=== PATIENT | female | born 1985 | race Caucasian/White ===

== ENCOUNTER 2020-06-29 15:08 | Emergency (ER) | payer OTHER, SELFPAY ==
[2020-06-29] VITALS (13 sets, daily range): BP systolic 129–141; BP diastolic 69–119; PULSE 64–92; RESP 14–41; TEMP 36.6; O2SAT 95–99
--- NOTE | 2020-06-29 15:00 | RT.EKG_ITS ---
APPROVED REPORT Exam: Resting ECG Reason for Exam: stroke like symp Patient Location: E HR:74 bpm ECG Measurements Heart Rate 74 AXIS AR 129 P 37 QRSd 98 QRS 50 QT 384 T 39 QTc 426 Conclusion Sinus rhythm...normal P axis, V-rate 60- 99
--- NOTE | 2020-06-29 15:13 | ED.GENADUL_ITS ---
Discharge Plan Disposition Patient Disposition: HOME Condition: Improving Discharge Details Clinical Impression: Acute frontal sinusitis, Cavernoma, Cephalgia Primary Care Provider: Unknown,Unknown ED Provider: Medardo Velez Home Meds and New Rx's Prescriptions: New cefpodoxime 200 mg tablet 200 mg PO BID 9 Days Qty: 18 RF: 0 Continued citalopram 40 mg Tablet 40 mg PO DAILY RF: 0 topiramate 25 mg Tablet 25 mg PO DAILY RF: 0 pantoprazole 40 mg Tablet,Delayed Release (Dr/Ec) 40 mg PO DAILY RF: 0 diphenhydramine HCl [Benadryl] 25 mg Capsule 25 mg PO HS RF: 0 indomethacin 50 mg Capsule 50 mg PO TID RF: 0 lorazepam 1 mg Tablet 1 mg PO TID PRNRF: 0 lisinopril 40 mg Tablet 40 mg PO DAILY RF: 0 vitamin B complex Capsule 1 cap PO DAILY RF: 0 vitamin B6-vitamin E-magnesium Tablet 1 tab PO DAILY RF: 0 Discharge Instructions Instructions: Sinusitis (ED), General Headache (ED) Additional Instructions: Please take the Cefpodoxime as prescribed. Do not take this medication at the same time as you take pantoprazole. Home to rest this evening. Small, frequent sips of fluids so that you maintain good hydration. Your work-up today included laboratory, CAT scan, and MRI which does demonstrate your known cavernoma. Please follow-up with your neurologist in [place] within a week. Return to the emergency department for any acute concerns. Medical Decision Making 34-year-old female presents via EMS. She is reported to have the history of rapid onset migraine headache associated with strokelike symptoms including ga rbled speech and left arm weakness. 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 today she had similar onset of headache, left arm weakness, with intermittently garbled speech. Differential diagnosis includes migraine type headache/hemicrania continua, atypical migraine, sinusitis, stroke. Patient had IV access established, placed on personnel administrator, referred for CT imaging. She is given parenteral fluids and medications. Per Dr. Saleh, CT shows possible subacute hemorrhage in a cavernoma. See formal report. Patient subsequently referred for brain MRI. The MRI reveals a cavernoma. No suggestion of acute hemorrhage. See formal report. Patient had fairly rapid improvement of her symptoms following administration of medications. We will place her on a course of Cefpodoxime for right maxillary and right frontal/ethmoid sinusitis. Diagnostics: 1. 9 x 10 millimeter left-sided hyperdensity as described above which is consistent with probable area of hemorrhage, possibly associated with a vascular malformation such as cavernous hemangioma. MRI is recommended. 2. Prominent sinusitis as described above. This also involves the frontal sin uses. 3. Also noted is a ski sebaceous cyst in the scalp over the right temporoparietal region which measures approximately 9 x 8 millimeters. Lab Data Lab results reviewed: Yes I reviewed the patient's lab results. Labs: Laboratory Results - last 24 hr 06/29/20 06/29/20 06/29/20 15:10 15:10 15:54 WBC 10.79 RBC 4.25 Hgb 12.3 Hct 37.9 MCV 89.2 MCH 28.9 MCHC 32.5 RDW 13.0 Plt Count 301 MPV 9.6 Immature Gran % 0.3 Neutrophils % 68.0 Lymphocytes % 23.1 Monocytes % 6.6 Eosinophils % 1.7 Basophils % 0.3 Nucleated RBC % 0 Absolute Neutrophils 7.35 H Absolute Lymphocytes 2.49 Absolute Monocytes 0.71 Absolute Eosinophils 0.18 Absolute Basophils 0.03 Sodium 141 Potassium 3.8 Chloride 106 Carbon Dioxide 26.9 Anion Gap 8.1 BUN 12 Creatinine 0.9 Estimated GFR/1.73 m2 >= 60.00 Glucose 99 Calcium 9.0 Magnesium 2.1 Total Bilirubin 0.5 AST 13 L ALT 34 Alkaline Phosphatase 69 Troponin I < 0.05 Total Protein 7.5 Albumin 3.8 Urine Color Yellow Urine Clarity Clear Urine pH 6.0 Ur Specific [place] <= 1.005 Urine Protein Negative Urine Ketones Negative Urine Blood Negative Urine Nitrite Negative Urine Bilirubin Negative Urine Urobilinogen 0.2 Ur Leukocyte Esterase Negative Urine Glucose Negative HPI General Mode of arrival: EMS . Date/Time Provider Initiated Documentation: 06/29/20 15:21 . Information obtained by: patient and EMS . History of Present Illness 34 year old F presents to the emergency department with the chief complaint of Headache, garbled speech, left arm weakness, similar to previous, described as similar to prior episodes, and is localized to the head, left and upper extremity. Patient reports no radiation. Patient started experiencing this minute(s) and it has been constant. No relieving factors improve symptom(s), No exacerbating factors reported . Patient notes headaches, weakness and other (Had fluttering of the eyelids); denies fever/chills. Patient did receive the following treatments prior to arrival, none Related Data Home Medications Medication Instructions Recorded Confirmed cefpodoxime 200 mg PO BID 9 Days #18 tab 06/29/20 citalopram 40 mg PO DAILY 06/29/20 06/29/20 diphenhydramine HCl [Benadryl] 25 mg PO HS 06/29/20 06/29/20 indomethacin 50 mg PO TID 06/29/20 06/29/20 lisinopril 40 mg PO DAILY 06/29/20 06/29/20 lorazepam 1 mg PO TID PRN 06/29/20 06/29/20 pantoprazole 40 mg PO DAILY 06/29/20 06/29/20 topiramate 25 mg PO DAILY 06/29/20 06/29/20 vitamin B complex 1 cap PO DAILY 06/29/20 06/29/20 vitamin B6-vitamin E-magnesium 1 tab PO DAILY 06/29/20 06/29/20 Previous Rx's Medication Instructions Recorded cefpodoxime 200 mg PO BID 9 Days #18 tab 06/29/20 Allergies Allergy/AdvReac Type Severity Reaction Status Date / Time red dye Allergy Unverified 06/29/20 15:47 Review of Systems Narrative: History of same, has known brain mass, no reported recent illness. PFSH Social History Smoking/Tobacco Use Status: Unknown Smoking risk assessment performed?: Yes Drug use: Occasionally Substance use type: marijuana Details: unable to assess unstable condition Additional Social history: unable to assess unstable condition Exam Narrative Exam Narrative: GEN: awake, alert, well groomed, interactive. HEAD: Normocephalic, atraumatic ENT: Mucous membranes moist, oropharynx unremarkable, External ear exam unremarkable EYES: PERRL, EOMI NECK: Full ROM, no KITA, no menigismus CHEST/RESP: Nontender, clear to auscultation bilateral, no wheeze/rhonchi/rales CARDIOVASCULAR: RRR, no murmur, rub perico. 2+ Rad pulse bilateral ABDOMEN: Soft, nontender, no mass. +Bowel sounds EXT: Full ROM, no edema, no rash Neuro: Patient lying in gurney, somewhat slurred speech, somewhat disconjugate gaze. Follows two-step commands. Opens eyes to voice. Question of subjective weakness left arm pain Psych: Speech fluent, thoughts congruent, affect normal
--- NOTE | 2020-06-29 15:14 | DI.CT_ITS ---
Exam(s) CT HEAD - STROKE PROTOCOL EXAM: CT HEAD - STROKE PROTOCOL CLINICAL HISTORY: migraine with arm weakness. TECHNIQUE: Imaging Protocol: Axial computed tomography images with coronal and sagittal reformatted images were created and reviewed COMPARISON: No exams were available for comparison FINDINGS: There are no skull fractures. However, there is complete opacification of the visualized right maxi llary sinus as well as the central right frontal sinuses and ipsilateral ethmoidal air cells and ther e is mucosal thickening in the sphenoid sinuses as well as fluid level in left maxillary sinus. Mast oid air cells are clear. No fluid in the middle ear cavities. There is an abnormal 10 x 9 x 8 millimeter hyperdense area just anterior to the anterior limb of the left internal capsule, exhibiting average density units 55 HU and therefore most probably blood. The re is no surrounding edema. Probably representing hemorrhage around a vascular malformation such as cavernous hemangioma. No other findings seen elsewhere in the brain.. IMPRESSION: 1. 9 x 10 millimeter left-sided hyperdensity as described above which is consistent with probable are a of hemorrhage, possibly associated with a vascular malformation such as cavernous hemangioma. MRI is recommended. 2. Prominent sinusitis as described above. This also involves the frontal sinuses. 3. Also noted is a ski sebaceous cyst in the scalp over the right temporoparietal region which measu res approximately 9 x 8 millimeters. RADIATION DOSE DELIVERED: 778.31mGy.cm Total DLP DATA REPOSITORY: All CT scans at this facility are submitted to the National Radiology Data Registry (NRDR) Dose Index Registry (DIR) with the [employer] (ACR). RADIATION OPTIMIZATION: All CT scans at this facility use at least one of these dose optimization te chniques: automated exposure control; mA and/or kV adjustment per patient size (includes targeted exa ms where dose is matched to clinical indication); or iterative reconstruction.
--- NOTE | 2020-06-29 15:30 | DI.MRI_ITS ---
Exam(s) MR BRAIN WO EXAM: MR BRAIN WO CLINICAL HISTORY: Brain mass, see CT. Headache TECHNIQUE: Multiplanar multisequence MRI of the brain was performed. COMPARISON: CT scan earlier same day was reviewed. FINDINGS: CEREBRAL PARENCHYMA: There is a 9 x 10 millimeter area of signal abnormality in the left frontal lobe adjacent to the basa l ganglia which exhibits a popcorn appearance on T2 imaging and most likely representing and cavernom a. Small focus of associated T1 hyperintensity noted but without surrounding edema. This exhibits b looming artifact on SWI. This is most probably a small cavernous hemangioma/cavernoma. This is virgil tary finding. No other focal intracranial findings. There is no significant focal signal abnormality in the cerebellar hemispheres nor within the keila, m idbrain, and thalami. There is no significant focal signal abnormality evident on diffusion imaging to suggest acute ischem ic event. PITUITARY GLAND: No mass nor parasellar abnormality. No obvious abnormality in the cavernous sinuses. FLOW VOIDS: The expected flow void are noted. No evidence of obvious aneurysm nor obvious vascular ma lformation. PARANASAL SINUSES: Significant the sinusitis evident in the maxillary sinuses with complete opacifica tion of the right maxillary sinus and a fluid level in left maxillary sinus and mucosal thickening in the sphenoid sinuses as well as involvement of the right frontal sinus. ORBITS: No obvious findings. IMPRESSION: 9 x 10 millimeter finding in the left frontal lobe as described above which is probably a cavernoma, not associated with acute hemorrhage nor surrounding edema at this time. Extensive sinusitis noted, including the frontal sinuses. DATA REPOSITORY:
[2020-06-29 15:31] LABS: Abs Immature Grans 0.03 10^3/uL (0.0-0.06); Absolute Basophil Count 0.03 10^3/uL (0.0-0.2); Absolute Eosinophil Count 0.18 10^3/uL (0.0-0.7); Absolute Lymphocyte Count 2.49 10^3/uL (1.2-3.4); Absolute Monocyte Count 0.71 10^3/uL (0.1-0.8); Absolute Neutrophil Count 7.35 10^3/uL (1.2-6.7); Basophils % 0.3; Eosinophils % 1.7; HCT 37.9 % (36.0-46.0); HGB 12.3 g/dL (11.2-15.7); Immature Grans % 0.3; Lymphocytes % 23.1; MCH 28.9 pg (27.0-33.0); MCHC 32.5 % (32.0-36.0); MCV 89.2 fL (80-95); MPV 9.6 fL (8.0-11.0); Monocytes % 6.6; Nucleated RBC 0 %; Platelet Count 301 10^3/uL (130-400); RBC 4.25 10^6/uL (3.93-5.22); RDW-SD 42.5 fL; WBC 10.79 10^3/uL (4.4-10.8)
[2020-06-29] MEDS: LORazepam 2 MG/ML VIAL 0.5 MG IVP (15:40)
[2020-06-29] MEDS: Dexamethasone 4 MG/ML VIAL 8 MG IVP (15:40)
[2020-06-29 15:50] LABS: ALT 34 U/L (14-59); AST 13 U/L (15-37); Albumin 3.8 g/dL (3.4-5.0); Alkaline Phosphatase 69 U/L (46-116); Anion Gap 8.1 mmol/L (3-11); BUN 12 mg/dL (7-18); Bilirubin, Total 0.5 mg/dL (0.2-1.0); CO2 26.9 mmol/L (21.0-32.0); CREATININE 0.9 mg/dL (0.55-1.02); Chloride 106 mmol/L (98-107); Glucose 99 mg/dL (74-106); Magnesium 2.1 mg/dL (1.8-2.4); Potassium 3.8 mmol/L (3.5-5.1); Sodium 141 mmol/L (136-145); Total Protein 7.5 g/dL (6.4-8.2)
--- NOTE | 2020-06-29 15:50 | NUR.NOTE ---
Nursing Note: Matias Bales [facility] [phone]
[2020-06-29 15:55] LABS: Troponin I < 0.05 ng/mL (<0.06)
[2020-06-29] MEDS: ACETAMINOPHEN 1,000 MG/100 ML BTL 400 MG IVPB (15:57)
[2020-06-29] MEDS: Normal Saline 1,000 ML 1000 ML IV (15:58)
[2020-06-29 16:01] LABS: Bilirubin Negative (Negative); Blood Negative (Negative); Clarity Clear (Clear); Glucose Negative (Negative); Ketones Negative (Negative); Leukocyte Esterase Negative (Negative); Nitrite Negative (Negative); Specific Gravity <= 1.005 (1.005-1.025); Urobilinogen 0.2 EU/dL (Up TO 0.2)
[2020-06-29] MEDS: HYDROmorphone 2 MG/ML VIAL 0.5 MG IVP (16:46)
--- NOTE | 2020-06-29 16:48 | DI.VRAD_ITS ---
PROCEDURE INFORMATION: Exam: MR Head Without Contrast Exam date and time: 06/29/2020 4:27 PM Age: 34 years old Clinical indication: Headache TECHNIQUE: Imaging protocol: MR of the head without contrast. COMPARISON: CT HEAD - STROKE PROTOCOL 06/29/2020 3:15 PM FINDINGS: Brain: There is blooming artifact on SWI within the left frontal lobe adjacent to the basal ganglia, which demonstrates small focus of T1 hyperintensity and a popcorn appearance on T2 most likely representing a cavernoma. No surrounding edema to suggest acute hemorrhage. No acute infarct. No mass effect or midline shift. No extra-axial collection. No acute intracranial hemorrhage. Basal cisterns are patent. Cerebral ventricles: Normal. No ventriculomegaly. Bones/joints: Unremarkable. Paranasal sinuses: Normal as visualized. No acute sinusitis. Mastoid air cells: Normal as visualized. No mastoid effusion. Orbital cavity: Unremarkable. Soft tissues: Unremarkable. IMPRESSION: There is blooming artifact on SWI within the left frontal lobe adjacent to the basal ganglia, which demonstrates small focus of T1 hyperintensity and a popcorn appearance on T2 most likely representing a cavernoma. No surrounding edema to suggest acute hemorrhage. Dictated and Authenticated by: Luke Rao MD. Ordering:CARISSA Batres MD
[2020-06-29] MEDS: Ketorolac 15 MG/ML VIAL IVP (17:05)
[2020-06-29] MEDS: Cefpodoxime 200 MG TAB PO (17:05)
[2020-06-29 18:38] LABS: Troponin I < 0.05 ng/mL (<0.06)
== END 2020-06-29 19:01 | disposition home or self-care (01) ==
PROVIDERS: Emergency Provider Emergency Medicine
DX: J01.10 Acute frontal sinusitis, unspecified (principal); Q28.3 Other malformations of cerebral vessels; G83.24 Monoplegia of upper limb affecting left nondominant side; R47.81 Slurred speech
CPT/HCPCS: 36415; 36416; 80053; 81025; 82962; 93005; 96361; 96365; 96375; 99285; 70450; 70551; 81003; 83735; 84484; 85025; 93010; J0131; J1100; J1885; J2060

== ENCOUNTER 2020-07-03 16:57 | Observation (INO) | payer OTHER, SELFPAY ==
[2020-07-03] VITALS (61 sets, daily range): BP systolic 73–147; BP diastolic 54–96; PULSE 58–83; RESP 9–24; TEMP 36.3; O2SAT 93–98
--- NOTE | 2020-07-03 17:00 | DI.CT_ITS ---
Exam(s) CT HEAD WO EXAM: CT HEAD WO CLINICAL HISTORY: recent sinusitis, L frontal headache. TECHNIQUE: Imaging Protocol: Axial computed tomography images with coronal and sagittal reformatted images were created and reviewed COMPARISON: CT CT HEAD - STROKE PROTOCOL from 06/29/2020 FINDINGS: No skull fractures. Pansinusitis previously described is again noted, comprised of complete opacifi cation right maxillary sinus, level maxillary sinus, mucosal thickening and fluid in the sphenoid sin uses and opacification of the frontal sinuses the exception of the far left frontal sinus. Mastoid a ir cells are clear. There is relatively stable appearance of the previously described 10 x 11 millimeter hyperdense focus the left frontal lobe, not associated with significant amount of surrounding edema. This is apparen tly in known cavernoma. No new focal findings noted in the brain. IMPRESSION: Stable hyperdense left frontal lobe focus which is radiographically unchanged from 06/29/2020 and hyp erdense known cavernoma with blood products. No new significant mass effect noted. Pansinusitis again noted, unchanged. No improvement. RADIATION DOSE DELIVERED: 796.13mGy.cm Total DLP DATA REPOSITORY: All CT scans at this facility are submitted to the National Radiology Data Registry (NRDR) Dose Index Registry (DIR) with the [employer] (ACR). RADIATION OPTIMIZATION: All CT scans at this facility use at least one of these dose optimization te chniques: automated exposure control; mA and/or kV adjustment per patient size (includes targeted exa ms where dose is matched to clinical indication); or iterative reconstruction.
--- NOTE | 2020-07-03 17:08 | ED.GENADUL_ITS ---
Discharge Plan Disposition Patient Disposition: [facility] INPATIENT Condition: Stable Discharge Details Clinical Impression: Acute frontal sinusitis, Cavernoma, Cephalgia, Migraine with status migrainosus Primary Care Provider: Unknown,Unknown ED Provider: Phani Nelson Cody Meds and New Rx's Prescriptions: Continued citalopram 40 mg Tablet 40 mg PO DAILY RF: 0 topiramate 25 mg Tablet 25 mg PO DAILY RF: 0 pantoprazole 40 mg Tablet,Delayed Release (Dr/Ec) 40 mg PO DAILY RF: 0 diphenhydramine HCl [Benadryl] 25 mg Capsule 25 mg PO HS RF: 0 lorazepam 1 mg Tablet 1 mg PO TID PRNRF: 0 lisinopril 40 mg Tablet 40 mg PO DAILY RF: 0 vitamin B complex Capsule 1 cap PO DAILY RF: 0 vitamin B6-vitamin E-magnesium Tablet 1 tab PO DAILY RF: 0 cefpodoxime 200 mg tablet 200 mg PO BID 9 Days Qty: 18 RF: 0 Discontinued indomethacin 50 mg Capsule 50 mg PO TID RF: 0 Medical Decision Making <Medardo Velez MD - Last Filed: 07/03/20 19:59> Preventive 34-year-old female known to me from recent visit on June 29. At that time she had a diagnosis of frontal sinusitis for which she was placed on Cefpodoxime. She is reported to have developed fairly rapid onset of left frontal headache similar to previous migraines. Bystanders noticed that she was seizing but was able to speak throughout the tremulous body activity. She was transported via EMS and improved without seizure-like activity by the time of arrival. Patient is known to me from the previous visit June 29 during which a brain MRI was performed without findings of acute change to her known mass/cavernoma. She was found frontal sinusitis and placed on antibiotics which she has been taking. She has a history of migraine, psychogenic pseudoseizure, and the aforementioned cavernoma. IV access established, screening labs obtained, patient given parenteral analgesia and fluids. She is referred for noncontrast CT scan. CT reveals a stable, small focus of left frontal lobe hemorrhage as well as marked sinus disease. Appears to be stable versus comparison. See formal report. I reviewed today's CT images, the MRI and CT from June 29 with on-call neurosurgery at [facility]. There is no acute neurosurgical indication. They state this is a chronic finding for the patient and they will follow her up in clinic in 2 months time. Neurosurgery has recommended the patient follow-up with neurology and we will make appropriate referrals for her as an outpatient. Following parenteral medications, patient is improving. She notes she has had significant ongoing pain since being seen in the hospital earlier this week and as well as had recurrent episodes of syncope. Her troponin was negative x2 on June 29. I have added an additional troponin given the patient additional analgesia. She will need to continue to Cefpodoxime for sinusitis. If she does not have improvement of headache, given her recurrent near syncopal events, she may benefit from admission for further management. Case will be signed out to Dr. Nelson pending reeval <Phani Nelson MD - Last Filed: 07/03/20 22:09> Patient still having pain similar to her prior migraines per the patient, and when she stands it worsens and doesn't feel she can manage her pain at home. Given continued pain will discuss with hospitalist for admission for status migrainosis and possible neuro consult tomorrow. HPI <Medardo Velez MD - Last Filed: 07/03/20 19:59> General Mode of arrival: EMS . Date/Time Provider Initiated Documentation: 07/03/20 16:58 . Limitations to Documentation: no limitations . Information obtained by: patient and EMS . History of Present Illness 34 year old F presents to the emergency department with the chief complaint of Headache, seizure-like activity, described as moderate and similar to prior episodes, Quality is described as constant, and is localized to the head and left. Patient reports no radiation. Patient started experiencing this minute(s) and it has been constant. No relieving factors improve symptom(s), No exacerbating factors reported . Patient notes other (Was reported to have tremulous activity which patient was able to speak through. No tongue biting, no loss of consciousness, no incontinence). Patient did receive the following treatments prior to arrival, none Related Data Home Medications Medication Instructions Recorded Confirmed cefpodoxime 200 mg PO BID 9 Days #18 tab 06/29/20 07/03/20 citalopram 40 mg PO DAILY 06/29/20 07/03/20 diphenhydramine HCl [Benadryl] 25 mg PO HS 06/29/20 07/03/20 lisinopril 40 mg PO DAILY 06/29/20 07/03/20 lorazepam 1 mg PO TID PRN 06/29/20 06/29/20 pantoprazole 40 mg PO DAILY 06/29/20 07/03/20 topiramate 25 mg PO DAILY 06/29/20 07/03/20 vitamin B complex 1 cap PO DAILY 06/29/20 07/03/20 vitamin B6-vitamin E-magnesium 1 tab PO DAILY 06/29/20 07/03/20 Previous Rx's Medication Instructions Recorded cefpodoxime 200 mg PO BID 9 Days #18 tab 06/29/20 Allergies Allergy/AdvReac Type Severity Reaction Status Date / Time red dye Allergy Unverified 07/03/20 17:53 General ALEX: 2 Review of Systems <Medardo Velez MD - Last Filed: 07/03/20 19:59> Narrative: No fall or injury. No focal deficit. PFSH <Medardo Velez MD - Last Filed: 07/03/20 19:59> Medical History Cavernoma Social History Smoking/Tobacco Use Status: Former Tobacco Use Smoking risk assessment performed?: Yes Alcohol Intake: current Alcohol Intake frequency: holidays/special occasions only Drug use: Occasionally Substance use type: marijuana Details: no recent alchol use marijuana today Additional Social history: unable to assess unstable condition Exam <Medardo Velez MD - Last Filed: 07/03/20 19:59> Narrative Exam Narrative: GEN: awake, alert, oriented 3. Pleasant, well groomed, interactive. Lying in a darkened room HEAD: Normocephalic, atraumatic ENT: Mucous membranes moist, oropharynx unremarkable, External ear exam unremarkable EYES: PERRL, EOMI NECK: Full ROM, no KITA, no menigismus CHEST/RESP: Nontender, clear to auscultation bilateral, no wheeze/rhonchi/rales CARDIOVASCULAR: RRR, no murmur, rub perico. 2+ Rad pulse bilateral ABDOMEN: Soft, nontender, no mass. +Bowel sounds EXT: Full ROM, no edema, no rash Neuro: Grossly normal neurologic exam, conversant, interactive. Psych: Speech fluent, thoughts congruent, affect normal Sign Out <Medardo Velez MD - Last Filed: 07/03/20 19:59> Sign Out Data: Sign Out Comment: Reevaluation pending after medications, check trop Last updated by Medardo Velez MD at 07/03/20 20:00
--- NOTE | 2020-07-03 17:11 | NUR.NOTE ---
Nursing Note: Referral faxed to [facility] Neurology for follow up in 1 to 2 weeks for psychogenic seizure. Referral given to Care Management to establish care with a PCP and follow up for psychogenic seizure in 1 to 2 weeks. Anay Roberson
[2020-07-03] MEDS: Normal Saline 1,000 ML 1000 ML IV (17:15)
[2020-07-03] MEDS: Ketorolac 30 MG/ML VIAL IVP (17:16)
[2020-07-03] MEDS: diphenhydrAMINE 50 MG/ML VIAL 25 MG IVP (17:18)
[2020-07-03] MEDS: HYDROmorphone 2 MG/ML VIAL 1 MG IVP ×2 (17:20→19:25)
[2020-07-03 17:34] LABS: Abs Immature Grans 0.02 10^3/uL (0.0-0.06); Absolute Basophil Count 0.03 10^3/uL (0.0-0.2); Absolute Eosinophil Count 0.24 10^3/uL (0.0-0.7); Absolute Lymphocyte Count 3.05 10^3/uL (1.2-3.4); Absolute Monocyte Count 0.58 10^3/uL (0.1-0.8); Absolute Neutrophil Count 5.27 10^3/uL (1.2-6.7); Basophils % 0.3; Eosinophils % 2.6; HGB 11.7 g/dL (11.2-15.7); Immature Grans % 0.2; Lymphocytes % 33.2; MCH 28.7 pg (27.0-33.0); MCHC 32.5 % (32.0-36.0); MCV 88.5 fL (80-95); MPV 10.2 fL (8.0-11.0); Monocytes % 6.3; Neutrophils % 57.4; Nucleated RBC 0 %; Platelet Count 290 10^3/uL (130-400); RBC 4.07 10^6/uL (3.93-5.22); RDW 12.9 % (11.7-14.6); RDW-SD 41.9 fL; WBC 9.19 10^3/uL (4.4-10.8)
[2020-07-03 17:49] LABS: Anion Gap 6.1 mmol/L (3-11); BUN 15 mg/dL (7-18); CO2 27.9 mmol/L (21.0-32.0); CREATININE 0.8 mg/dL (0.55-1.02); Calcium 9.1 mg/dL (8.5-10.1); Chloride 107 mmol/L (98-107); Glucose 94 mg/dL (74-106); Potassium 4.2 mmol/L (3.5-5.1); Sodium 141 mmol/L (136-145)
--- NOTE | 2020-07-03 18:02 | DI.VRAD_ITS ---
PROCEDURE INFORMATION: Exam: CT Head Without Contrast Exam date and time: 07/03/2020 5:08 PM Age: 34 years old Clinical indication: Dizziness TECHNIQUE: Imaging protocol: Computed tomography of the head without contrast. COMPARISON: CT HEAD - STROKE PROTOCOL 06/29/2020 3:15 PM FINDINGS: Brain: There is a 8 x 9 mm focus of hyperdensity in the left frontal lobe (image 26 series 2 ), stable in appearance when compared to the prior CT and MR dated 06/29/2020, considering the differences in technique and angulation. Chaves-white matter differentiation is within normal limits. There is no mass effect or midline shift. The ventricles, sulci and basal cisterns are normal. There is no extra-axial fluid collection. Cerebral ventricles: Ventricles are nondilated. Bones/joints: There is mild rightward nasal septal deviation with a small midline spur. Paranasal sinuses: There is diffuse opacification in the right frontal sinus, frontoethmoidal recess, right greater than left anterior ethmoidal sinuses. There is diffuse opacification of the right maxillary sinus. There is fluid in the left maxillary sinus and fluid and mucosal thickening in the bilateral sphenoidal sinus. Mastoid air cells: Mastoid air cells are clear. Soft tissues: There is stable partially calcified nodule in the right frontal scalp and in the right parietal scalp, likely sebaceous cyst or trichilemmal cyst. IMPRESSION: 1. Stable small focus of left frontal lobe hemorrhage/blood product in the previously known cavernoma. No significant mass effect is noted. 2. Marked sinus disease, most pronounced in the right frontal, frontoethmoidal recess, anterior ethmoidal sinus and maxillary sinus. There is fluid in the left maxillary sinus and sphenoidal sinus, suspicious of superimposed acute sinus disease. THIS REPORT CONTAINS FINDINGS THAT MAY BE CRITICAL TO PATIENT CARE. The findings were verbally communicated via telephone conference at 6:01 PM EDT on 07/03/2020 [address] [facility]. The findings were acknowledged and understood. Dictated and Authenticated by: Dylan Moore MD. Ordering:CARISSA Batres MD
[2020-07-03 18:04] LABS: PTT Activated 25.2 sec (21.0-27.5)
[2020-07-03 18:18] LABS: Prothrombin Time 9.7 sec (9.3-11.0)
[2020-07-03] MEDS: Normal Saline Flush 10 ML SYR IVP (19:29)
[2020-07-03 20:17] LABS: Troponin I < 0.05 ng/mL (<0.06)
[2020-07-03] MEDS: Prochlorperazine 10 MG/2 ML VIAL IVP (21:34)
--- NOTE | 2020-07-03 21:52 | HPE_ITS ---
Date of service: 07/03/20 Time of Service: 21:52 Assessment and Plan Assessment and plan (1) Headache: Status: Acute Assessment and plan: Chronic and recurrent MCGARRY, specific diagnosis unclear at present. The report of Indocin suggests hemicranium continua, while there is also report of migraine, though does not appear to be on any triptan. There would also be concern for medication overuse, and then tension MCGARRY as well. Since patient appears to be content to sleep this off I think it reasonable to hold off on any further interventions at this point. Will plan on Neuro consult in AM to and try to obtain records from [place]. The evident sinusitis is noted and will continue abx as is but I suspect this may be incidental within the overall clinical picture. Not sure what to make of the report of syncope. Suffice to say none noted here, will continue on telemetry. 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 Followed by neurology in [place]. Also has h/o cerebral cavernoma, as well as pseudoseizures.. At any rate patient was seen here 4 days [employer] with MCGARRY, w/u of note for stable findings regarding cavernoma, along with extensive sinusitis. Treated with Cefpodoxime. Returns tonight with either ongoing or recurrent MCGARRY, she is unclear on this detail. W/U of note for normal CBC and chemistries, and unchanged CT of head. Has been given Dilaudid, Toradol, Benadryl and Compazine. Reports persistent MCGARRY and staff note she seems incapable of getting up and ambulating. At present she states to me that she does not want anything further for her MCGARRY, just wants to sleep it off. Note that there is also a h/o of passing out this evening, though apparently some bystanders reported her speaking during this spell. Note that patient reports to me that in addition to Topamax prophylaxis she also takes unspecified dose of Indocin tid scheduled. Review of Systems All systems reviewed & are unremarkable except as noted in HPI and below PFSH Medical History Cavernoma Social History Smoking/Tobacco Use Status: Former Tobacco Use Smoking risk assessment performed?: Yes Alcohol Intake: current Alcohol Intake frequency: holidays/special occasions only Drug use: Occasionally Substance use type: marijuana Details: no recent alchol use marijuana today Additional Social history: unable to assess unstable condition Meds Allergies and Home Medications Allergies Allergy/AdvReac Type Severity Reaction Status Date / Time red dye Allergy Unverified 07/03/20 17:53 Home Medications Medication Instructions Recorded Confirmed Type cefpodoxime 200 mg PO BID 9 Days #18 tab 06/29/20 07/03/20 Rx citalopram 40 mg PO DAILY 06/29/20 07/03/20 History diphenhydramine HCl [Benadryl] 25 mg PO HS 06/29/20 07/03/20 History lisinopril 40 mg PO DAILY 06/29/20 07/03/20 History lorazepam 1 mg PO TID PRN 06/29/20 06/29/20 History pantoprazole 40 mg PO DAILY 06/29/20 07/03/20 History topiramate 25 mg PO DAILY 06/29/20 07/03/20 History vitamin B complex 1 cap PO DAILY 06/29/20 07/03/20 History vitamin B6-vitamin E-magnesium 1 tab PO DAILY 06/29/20 07/03/20 History Exam Narrative Exam Narrative: 111/71, 68, 36.3, 11, 96% RA. HEENT atraumatic; neck supple; lungs clear; heart RRR; abdomen sot and NT; extremities w/o edema; neuro Ox3, moves all 4s, too tired to cooperate with detailed exam Results Labs Result diagrams: 07/03/20 17:15 07/03/20 17:15 Labs: Laboratory Results - last 24 hr 07/03/20 07/03/20 07/03/20 17:15 17:15 17:20 WBC 9.19 RBC 4.07 Hgb 11.7 Hct 36.0 MCV 88.5 MCH 28.7 MCHC 32.5 RDW 12.9 Plt Count 290 MPV 10.2 Immature Gran % 0.2 Neutrophils % 57.4 Lymphocytes % 33.2 Monocytes % 6.3 Eosinophils % 2.6 Basophils % 0.3 Nucleated RBC % 0 Absolute Neutrophils 5.27 Absolute Lymphocytes 3.05 Absolute Monocytes 0.58 Absolute Eosinophils 0.24 Absolute Basophils 0.03 PT INR APTT 25.2 Sodium 141 Potassium 4.2 Chloride 107 Carbon Dioxide 27.9 Anion Gap 6.1 BUN 15 Creatinine 0.8 Estimated GFR/1.73 m2 >= 60.00 Glucose 94 Calcium 9.1 Troponin I 07/03/20 07/03/20 17:20 19:50 WBC RBC Hgb Hct MCV MCH MCHC RDW Plt Count MPV Immature Gran % Neutrophils % Lymphocytes % Monocytes % Eosinophils % Basophils % Nucleated RBC % Absolute Neutrophils Absolute Lymphocytes Absolute Monocytes Absolute Eosinophils Absolute Basophils PT 9.7 INR 1.0 APTT Sodium Potassium Chloride Carbon Dioxide Anion Gap BUN Creatinine Estimated GFR/1.73 m2 Glucose Calcium Troponin I < 0.05 Last Vital Signs Temp 36.3 C L 07/03/20 17:02 Pulse 68 07/03/20 21:38 Resp 11 L 07/03/20 21:38 BP 111/71 07/03/20 21:38 Pulse Ox 96 07/03/20 21:38 COVID-19 Screening Have you, or household traveled for leisure in last 14 days?: No Had IN PERSON contact w/suspected or confirmed C-19 person: No
[2020-07-03 22:18] LABS: Source Nasal/Nares
[2020-07-03 23:55] LABS: COVID-19 PCR Negative (Negative)
[2020-07-04] MEDS: Lactated Ringers 1,000 ML 100 ML IV (00:36)
[2020-07-04] MEDS: Normal Saline Flush 10 ML SYR IVP ×2 (00:37→08:26)
[2020-07-04 03:20] VITALS: BP 122/78; PULSE 63; RESP 18; TEMP 36.6; O2SAT 96
[2020-07-04 07:24] VITALS: BP 133/80; PULSE 66; RESP 18; TEMP 37.3; O2SAT 99
[2020-07-04] MEDS: Topiramate 25 MG TAB PO (08:12)
[2020-07-04] MEDS: Cefpodoxime 200 MG TAB PO (08:13)
[2020-07-04] MEDS: Lisinopril 20 MG TAB 40 MG PO (08:13)
[2020-07-04] MEDS: Citalopram 20 MG TAB 40 MG PO (08:13)
[2020-07-04] MEDS: Vitamins B Comp w/C TAB 1 TAB PO (08:13)
[2020-07-04] MEDS: HYDROmorphone 2 MG/ML VIAL 1 MG IVP (08:27)
[2020-07-04 08:31] VITALS: PULSE 66
[2020-07-04 11:00] VITALS: O2SAT 99
[2020-07-04 11:02] VITALS: PULSE 63
[2020-07-04] MEDS: Ketorolac 60 MG/2 ML VIAL IM (11:53)
--- NOTE | 2020-07-04 13:08 | DSE_ITS ---
Date of service: 07/04/20 Time of Service: 13:08 DS: Diagnosis Discharge Diagnosis (1) Headache: Start date: 07/04/20 Start time: 13:08 Status: Acute Asessment and Plan: History of migraines. Neurologist in [place]. Currently receiving botox though only has had one round; and on topamax though this is a low dose. I will increase this dose to 50 in am and 50 in pm, though she can go even higher, will defer to neuro for further management. In the Ed CT revealed cavernoma. Stable per our neurologist with calcification. On the floor she was given IM toradol with IM phenergan and depakote along with 100% oxygen. She is feeling better. She feels well enough to go home. She will be discharged home with toradol po and phenergan to take at onset of migraine. Depakote 500 mg BID for a total 3 day to break migraine. Follow up with neuro in the next 2 weeks for better regimen. Discharge Plan Disposition Patient Disposition: HOME Condition: Improving Discharge Details Reason For Visit: HEADACHE Admit Date/Time: 07/03/20 22:14 Admit Provider: Robert Guerrero Attending Provider: Robert Guerrero Primary Care Provider: Unknown,Unknown Hospital Course Hospital Course: 34 y.o female with pmh of migraines, with cavernoma that is stable without hemorrhage, calcified, per our neurologist that viewed the image. She was initially given diluadid in the ED which helped initially but her migraine returned soon after. Labs in the ED unremarkable. Today she was given IM toradol, Im phenergan, depakote po and 100% oxygen for 10 mins. after about 2 hours she stated she felt better just tired. She states she feels well enough to go home. She will be discharged home a depakote burst of 500 mg bid x 3 days. Increase in topamax to 50 mg BID, toradol and phenergan. She is agreeable to the plan. Recommend f/u with neurologist in the next 2 weeks. She denies CP, SOB, N/V/D Home Meds and New Rx's Prescriptions: New topiramate 25 mg Tablet 50 mg PO BID Qty: 60 RF: 0 divalproex 500 mg Tablet,Delayed Release (Dr/Ec) 500 mg PO BID Qty: 5 RF: 0 ketorolac 10 mg tablet 10 mg PO Q6H PRN5 Days Qty: 10 RF: 0 promethazine 25 mg tablet 25 mg PO Q6H PRNQty: 20 RF: 0 Continued citalopram 40 mg Tablet 40 mg PO DAILY RF: 0 pantoprazole 40 mg Tablet,Delayed Release (Dr/Ec) 40 mg PO DAILY RF: 0 diphenhydramine HCl [Benadryl] 25 mg Capsule 25 mg PO HS RF: 0 lorazepam 1 mg Tablet 1 mg PO TID PRNRF: 0 lisinopril 40 mg Tablet 40 mg PO DAILY RF: 0 vitamin B complex Capsule 1 cap PO DAILY RF: 0 vitamin B6-vitamin E-magnesium Tablet 1 tab PO DAILY RF: 0 cefpodoxime 200 mg tablet 200 mg PO BID 9 Days Qty: 18 RF: 0 Discontinued topiramate 25 mg Tablet 25 mg PO DAILY RF: 0 indomethacin 50 mg Capsule 50 mg PO TID RF: 0 Discharge Instructions Instructions: Sinusitis (ED), General Headache (ED) Additional Instructions: Take phenergan and ketorlac (toradol) as needed for migraine, take them together . They will make you sleepy. Take depakote twice daily for three days you had your first dose this morning I have increased your topamax to 50 mg BID. Follow up with Neurologist as scheduled. Activity:: Activity as Tolerated Equipment/Supplies:: No Equipment Needed Diet:: Low Sodium Discharge Orders Discharge Orders: Discharge Order (Routine); Ordered 07/04/20 Ordered By: Ladonna Edmond DS: Summary Time Spent with Patient providing and/or coordinating discharge services: Greater than 30 minutes Status at Discharge Functional status at discharge: independent ambulation Overall status at discharge: patient is back to baseline Mental Status: mental status grossly normal Speech and Movement: speech and movement normal Mood: congruent mood Affect: normal affect Exam Narrative Exam Narrative: Resting in bed. Does not appear in distress. HEENT atraumatic; neck supple; lungs clear; heart RRR; abdomen soft and NT; extremities w/o edema; neuro Ox3, moves all 4s, Psych Mental Status: mental status grossly normal Speech and Movement: speech and movement normal Mood: congruent mood Affect: normal affect DS: Data Vitals/I&O Vitals and I&O: Vital Signs Temperature 37.3 C 07/04/20 07:24 Temperature Source Temporal Artery Scan 07/04/20 07:24 Pulse 63 07/04/20 11:02 Pulse Rhythm Regular 07/04/20 08:15 Pulse 59 L 07/03/20 22:45 Respiratory Rate 18 07/04/20 07:24 Respiratory Effort Non-Labored 07/04/20 08:15 Respiratory Depth Normal 07/04/20 08:15 Respiratory Pattern Normal 07/04/20 08:15 Blood Pressure 133/80 07/04/20 07:24 Blood Pressure Mean 69 07/03/20 22:45 Pulse Oximetry 99 07/04/20 07:24 Oxygen Delivery Method Room Air 07/04/20 07:24 Oxygen Flow Rate 0 07/04/20 07:24 Pain Level 6 07/04/20 08:27 Intake & Output 07/03/20 07/04/20 07/04/20 23:59 11:59 23:59 Intake Total 1000 / 1000 1315 / 1315 Output Total 900 / 900 Balance 1000 / 1000 415 / 415 Weight 139.6 kg Intake: IV 1000 / 1000 1010 / 1010 Oral 305 / 305 Output: Urine 900 / 900 Other: Urine Color Straw Light Maddy Urine Appearance Clear Urine Odor Normal Voiding Methods Toilet Data Completed and Pending Completed studies during hospitalization [Text1]: Exam(s) a CT:CT head wo Exam(s) CT HEAD WO EXAM: ? CT HEAD WO CLINICAL HISTORY: ? recent sinusitis, L frontal headache. ? TECHNIQUE:? Imaging Protocol: Axial computed tomography images with coronal and sagittal reformatted images were created and reviewed COMPARISON:? CT CT HEAD - STROKE PROTOCOL from 06/29/2020 FINDINGS: ?No skull fractures.? Pansinusitis previously described is again noted, comprised of complete opacification right maxillary sinus, level maxillary sinus , mucosal thickening and fluid in the sphenoid sinuses and opacification of the frontal sinuses the exception of the far left frontal sinus.? Mastoid air cells are clear. There is relatively stable appearance of the previously described 10 x 11 millimeter hyperdense focus the left frontal lobe, not associated with significant amount of surrounding edema.? This is apparently in known cavernoma. No new focal findings noted in the brain. IMPRESSION: Stable hyperdense left frontal lobe focus which is radiographically unchanged from 06/29/2020 and hyperdense known cavernoma with blood products.? No new significant mass effect noted. Pansinusitis again noted, unchanged.? No improvement. Labs on day of discharge: Labs from last 24 hours 07/03/20 07/03/20 07/03/20 22:10 19:50 17:20 WBC RBC Hgb Hct MCV MCH MCHC RDW Plt Count MPV Immature Gran % Neutrophils % Lymphocytes % Monocytes % Eosinophils % Basophils % Nucleated RBC % Absolute Neutrophils Absolute Lymphocytes Absolute Monocytes Absolute Eosinophils Absolute Basophils PT 9.7 INR 1.0 APTT Sodium Potassium Chloride Carbon Dioxide Anion Gap BUN Creatinine Estimated GFR/1.73 m2 Glucose Calcium Troponin I < 0.05 COVID-19 Source Nasal/nares SARS-CoV-2 (PCR) Negative 07/03/20 07/03/20 07/03/20 17:20 17:15 17:15 WBC 9.19 RBC 4.07 Hgb 11.7 Hct 36.0 MCV 88.5 MCH 28.7 MCHC 32.5 RDW 12.9 Plt Count 290 MPV 10.2 Immature Gran % 0.2 Neutrophils % 57.4 Lymphocytes % 33.2 Monocytes % 6.3 Eosinophils % 2.6 Basophils % 0.3 Nucleated RBC % 0 Absolute Neutrophils 5.27 Absolute Lymphocytes 3.05 Absolute Monocytes 0.58 Absolute Eosinophils 0.24 Absolute Basophils 0.03 PT INR APTT 25.2 Sodium 141 Potassium 4.2 Chloride 107 Carbon Dioxide 27.9 Anion Gap 6.1 BUN 15 Creatinine 0.8 Estimated GFR/1.73 m2 >= 60.00 Glucose 94 Calcium 9.1 Troponin I COVID-19 Source SARS-CoV-2 (PCR) PFSH Medical History Cavernoma Social History Smoking/Tobacco Use Status: Former Tobacco Use Smoking risk assessment performed?: Yes Alcohol Intake: current Alcohol Intake frequency: holidays/special occasions only Drug use: Occasionally Substance use type: marijuana Details: no recent alchol use marijuana today Additional Social history: unable to assess unstable condition
[2020-07-04] MEDS: Divalproex 500 MG TABEC PO (14:43)
== END 2020-07-04 14:52 | disposition home or self-care (01) ==
LOC: ER 22:27 → MS 23:14
PROVIDERS: Emergency Medicine; Admitting Provider General Practice; Emergency Provider Emergency Medicine; Visit Provider General Practice
DX: R51.9 Headache, unspecified (principal); J32.4 Chronic pansinusitis; D18.02 Hemangioma of intracranial structures; Z87.891 Personal history of nicotine dependence; Z79.899 Other long term (current) drug therapy
CPT/HCPCS: 36415; 80048; 87635; 96361; 96374; 96375; 96376; 99285; 70450; 84484; 85025; 85610; 85730; 99217; 99219; 99284; G0378; J0780; J1200; J1885

== ENCOUNTER 2020-10-05 19:02 | Emergency (ER) | payer OTHER, SELFPAY ==
[2020-10-05] VITALS (44 sets, daily range): BP systolic 105–136; BP diastolic 54–78; PULSE 66–112; RESP 13–23; TEMP 36.4–36.5; O2SAT 92–97
--- NOTE | 2020-10-05 19:15 | DI.CT_ITS ---
Exam(s) CT HEAD - STROKE PROTOCOL EXAM: CT HEAD - STROKE PROTOCOL CLINICAL HISTORY: hx of cavernoma, seizure, MCGARRY. TECHNIQUE: Imaging Protocol: Axial computed tomography images with coronal and sagittal reformatted images were created and reviewed COMPARISON: MR MR BRAIN WO from 06/29/2020 MR MR BRAIN WO from 06/29/[address] HEAD WO from 07/03/2020 FINDINGS: There are no skull fractures. Fluid levels and mucosal thickening in the maxillary sinuses again no aiyana as is complete opacification of the left sphenoid sinus and mucosal thickening in the right sphen oid sinus. Also asymmetric mucosal thickening in the left ethmoidal air cells. Also mucosal thicken ing in the right frontal sinus with relative sparing of the left frontal sinus. Previously described hyperdense 7-8 millimeter nodule in the left frontal white matter appears unchan ged from prior studies, apparently a known cavernoma. No new intra-axial findings. No evidence of n ew hemorrhage, intra or extra-axial. Ventricles are not enlarged or shifted. No blood within the ve ntricular system is a nor within the basal cisterns. IMPRESSION: Stable appearance of the solitary left frontal lobe cavernoma. No evidence to suggest acute hemorrha ge. Acute and chronic sinusitis findings again noted, as described above. RADIATION DOSE DELIVERED: 780.53mGy.cm Total DLP DATA REPOSITORY: All CT scans at this facility are submitted to the National Radiology Data Registry (NRDR) Dose Index Registry (DIR) with the [employer] ([employer]). RADIATION OPTIMIZATION: All CT scans at this facility use at least one of these dose optimization te chniques: automated exposure control; mA and/or kV adjustment per patient size (includes targeted exa ms where dose is matched to clinical indication); or iterative reconstruction.
[2020-10-05 19:34] LABS: Abs Immature Grans 0.05 10^3/uL (0.0-0.06); Absolute Basophil Count 0.04 10^3/uL (0.0-0.2); Absolute Eosinophil Count 0.01 10^3/uL (0.0-0.7); Absolute Lymphocyte Count 1.57 10^3/uL (1.2-3.4); Absolute Monocyte Count 0.58 10^3/uL (0.1-0.8); Absolute Neutrophil Count 10.69 10^3/uL (1.2-6.7); Basophils % 0.3; Eosinophils % 0.1; HCT 36.9 % (36.0-46.0); HGB 12.3 g/dL (11.2-15.7); Immature Grans % 0.4; Lymphocytes % 12.1; MCH 29.4 pg (27.0-33.0); MCHC 33.3 % (32.0-36.0); MCV 88.3 fL (80-95); MPV 9.2 fL (8.0-11.0); Monocytes % 4.5; Neutrophils % 82.6; Nucleated RBC 0 %; Platelet Count 314 10^3/uL (130-400); RBC 4.18 10^6/uL (3.93-5.22); RDW 12.7 % (11.7-14.6); RDW-SD 41.1 fL; WBC 12.94 10^3/uL (4.4-10.8)
--- NOTE | 2020-10-05 19:46 | NUR.NOTE ---
Nursing Note: Patient to CT scan via stretcher.
[2020-10-05 19:48] LABS: ALT 30 U/L (14-59); AST 13 U/L (15-37); Alkaline Phosphatase 72 U/L (46-116); Anion Gap 9.4 mmol/L (3-11); BUN 8 mg/dL (7-18); Bilirubin, Total 0.4 mg/dL (0.2-1.0); CO2 23.6 mmol/L (21.0-32.0); CREATININE 0.8 mg/dL (0.55-1.02); Calcium 9.1 mg/dL (8.5-10.1); Chloride 105 mmol/L (98-107); Glucose 119 mg/dL (74-106); Potassium 3.9 mmol/L (3.5-5.1); Sodium 138 mmol/L (136-145); Total Protein 7.8 g/dL (6.4-8.2)
--- NOTE | 2020-10-05 19:53 | NUR.NOTE ---
Nursing Note: Patient returned from CT scan.
[2020-10-05] MEDS: LORazepam 2 MG/ML VIAL 1 MG IVP (19:56)
[2020-10-05] MEDS: MORPHine 10 MG/ML VIAL 2 MG IVP (19:57)
--- NOTE | 2020-10-05 20:07 | DI.VRAD_ITS ---
PROCEDURE INFORMATION: Exam: CT Head Without Contrast Exam date and time: 10/05/2020 7:20 PM Age: 34 years old Clinical indication: Other: HX of cavernoma, seizure, MCGARRY TECHNIQUE: Imaging protocol: Computed tomography of the head without contrast. Total images: [id number] COMPARISON: CT HEAD WO 07/03/2020 5:34 PM FINDINGS: Brain: There is no change in a partially calcified 8 mm nodule in the left frontal white matter. No intra or extra-axial bleed. No edema or mass effect. Cerebral ventricles: No hydrocephalus. Basal cisterns are patent. Paranasal sinuses: There is chronic pansinusitis in addition to an acute component in the right maxillary sinus. Mastoid air cells: Mastoid air cells are clear. Orbital cavity: Unremarkable. Bones/joints: No significant bony abnormality. No fracture. Soft tissues: Unremarkable. IMPRESSION: 1. Stable head CT including a left frontal lobe cavernoma. 2. No intracerebral bleed. 3. Acute/chronic sinusitis. Dictated and Authenticated by: Medardo Lemon MD. Ordering:JERAD Salomon MD
[2020-10-05 20:17] LABS: ETHANOL BLOOD < 3.0 mg/dL (<3)
--- NOTE | 2020-10-05 20:18 | ED.GENADUL_ITS ---
Discharge Plan Disposition Patient Disposition: HOME Condition: Improving Discharge Details Clinical Impression: Cavernoma, Cephalgia Primary Care Provider: Unknown,Unknown ED Provider: Aime Romero Home Meds and New Rx's Prescriptions: Continued citalopram 40 mg Tablet 40 mg PO DAILY RF: 0 pantoprazole 40 mg Tablet,Delayed Release (Dr/Ec) 40 mg PO DAILY RF: 0 diphenhydramine HCl [Benadryl] 25 mg Capsule 25 mg PO HS RF: 0 lorazepam 1 mg Tablet 1 mg PO TID PRNRF: 0 lisinopril 40 mg Tablet 40 mg PO DAILY RF: 0 vitamin B complex Capsule 1 cap PO DAILY RF: 0 vitamin B6-vitamin E-magnesium Tablet 1 tab PO DAILY RF: 0 topiramate 25 mg Tablet 50 mg PO BID Qty: 60 RF: 0 promethazine 25 mg tablet 25 mg PO Q6H PRNQty: 20 RF: 0 Discharge Instructions Instructions: General Headache (ED) Additional Instructions: At this time the CT scan is stable, no evidence of new bleeding. I spoke with the [facility] neurosurgery team and they would like to follow-up with you closely, they will contact you. If you notice any worsening of your symptoms, or any new symptoms such as vomiting, diarrhea, fever, chills, shortness of breath, chest pain, numbness, weakness, or fainting , please return immediately to the emergency department for reevaluation. Please follow up with your primary care provider as soon as possible for reassessment and reevaluation. As always, it was a pleasure participating in your medical care today. Discharge Data Discharge Date/Time-TO BE ENTERED AT DEPARTURE: 10/05/20 23:56 Medical Decision Making <YUE Ware - Last Filed: 10/06/20 08:24> 34-year-old female presents with a past history of cavernoma, migraines, seizure-like activity, for evaluation of seizure activity Saturday, today, headache, tearful, anxious, concerned about her cavernoma. She is scheduled to have a procedure at [facility] sometime in the next month. Patient states that her episode today was very typical but the fact that she cannot control when this will happen, friends and family have to witness it, makes it very stressful and she would like to make sure that there is nothing more serious going on. She denies recent illness or trauma, denies any other concerns or complaints. I was able to review previous records, it appears as though there is thought of psychogenic seizure activity as well. Will obtain IV access, give IV Phenergan, Ativan, morphine, routine laboratory values including alcohol and tox screen as well as CT imaging stroke protocol of her brain. Laboratory values reveal minimal nonspecific leukocytosis of 12.94, she is afebrile, no evidence of nuchal rigidity. Electrolytes are unremarkable, GFR greater than 60, tox screen positive for THC, alcohol less than 3 CT imaging reveals a stable head CT including a left frontal lobe cavernoma, no acute intracranial bleed. Acute on chronic sinusitis Images were pushed [facility] at approximately 8 PM, consultation after the CT images has been read to report radiology was requested approximately 822. I did speak with the patient's Matias on the phone twice to make them aware of her ER visit and current status. Upon reevaluation patient states that her pain is now much more tolerable, she feels as though her left side of her body is tired but initially weak, and she denies any nausea. Clinically she appears well, nontoxic, no longer anxious or tearful. Neurologically intact, I do not appreciate any neurologic deficit [facility] was once contacted and I was reassured that they had received the CT images and would be having their neurosurgery team call us back shortly Medical Records Medical records reviewed: Yes I reviewed the patient's medical records. Imaging Data Radiologic Study: Attestation: I personally reviewed and interpreted this imaging study as follows: Imaging: CT Scan Radiologist's impression: PROCEDURE INFORMATION: Exam: CT Head Without Contrast Exam date and time: 10/05/2020 7:20 PM Age: 34 years old Clinical indication: Other: HX of cavernoma, seizure, MCGARRY TECHNIQUE: Imaging protocol: Computed tomography of the head without contrast. Total images: 979 COMPARISON: CT HEAD WO 07/03/2020 5:34 PM FINDINGS: Brain: There is no change in a partially calcified 8 mm nodule in the left frontal white matter. No intra or extra-axial bleed. No edema or mass effect. Cerebral ventricles: No hydrocephalus. Basal cisterns are patent. Paranasal sinuses: There is chronic pansinusitis in addition to an acute component in the right maxillary sinus. Mastoid air cells: Mastoid air cells are clear. Orbital cavity: Unremarkable. Bones/joints: No significant bony abnormality. No fracture. Soft tissues: Unremarkable. IMPRESSION: 1. Stable head CT including a left frontal lobe cavernoma. 2. No intracerebral bleed. 3. Acute/chronic sinusitis. Lab Data Lab results reviewed: Yes I reviewed the patient's lab results. Labs: Laboratory Tests Range/Units 10/05/20 10/05/20 10/05/20 19:26 19:26 19:26 WBC (4.4-10.8) 10^3/uL 12.94 H RBC (3.93-5.22) 10^6/uL 4.18 Hgb (11.2-15.7) g/dL 12.3 Hct (36.0-46.0) % 36.9 MCV (80-95) fL 88.3 MCH (27.0-33.0) pg 29.4 MCHC (32.0-36.0) % 33.3 RDW (11.7-14.6) % 12.7 Plt Count (130-400) 10^3/uL 314 MPV (8.0-11.0) fL 9.2 Immature Gran % 0.4 Neutrophils % 82.6 Lymphocytes % 12.1 Monocytes % 4.5 Eosinophils % 0.1 Basophils % 0.3 Nucleated RBC % % 0 Absolute Neutrophils (1.2-6.7) 10^3/uL 10.69 H Absolute Lymphocytes (1.2-3.4) 10^3/uL 1.57 Absolute Monocytes (0.1-0.8) 10^3/uL 0.58 Absolute Eosinophils (0.0-0.7) 10^3/uL 0.01 Absolute Basophils (0.0-0.2) 10^3/uL 0.04 Sodium (136-145) mmol/L 138 Potassium (3.5-5.1) mmol/L 3.9 Chloride (98-107) mmol/L 105 Carbon Dioxide (21.0-32.0) mmol/L 23.6 Anion Gap (3-11) mmol/L 9.4 BUN (7-18) mg/dL 8 Creatinine (0.55-1.02) mg/dL 0.8 Estimated GFR/1.73 m2 (mL/min/1.73m2) >= 60.00 Glucose (74-106) mg/dL 119 H Calcium (8.5-10.1) mg/dL 9.1 Total Bilirubin (0.2-1.0) mg/dL 0.4 AST (15-37) U/L 13 L ALT (14-59) U/L 30 Alkaline Phosphatase (46-116) U/L 72 Total Protein (6.4-8.2) g/dL 7.8 Albumin (3.4-5.0) g/dL 4.0 Urine Opiates Screen (Negative) Urine Methadone Screen (Negative) Ur Barbiturates Screen (Negative) Ur Tricyclics Screen (Negative) Ur Amphetamines Screen (Negative) U Benzodiazepines Scrn (Negative) Urine Cocaine Screen (Negative) Ur THC Screen (Negative) Ethyl Alcohol (<3) mg/dL < 3.0 Range/Units 10/05/20 19:30 WBC (4.4-10.8) 10^3/uL RBC (3.93-5.22) 10^6/uL Hgb (11.2-15.7) g/dL Hct (36.0-46.0) % MCV (80-95) fL MCH (27.0-33.0) pg MCHC (32.0-36.0) % RDW (11.7-14.6) % Plt Count (130-400) 10^3/uL MPV (8.0-11.0) fL Immature Gran % Neutrophils % Lymphocytes % Monocytes % Eosinophils % Basophils % Nucleated RBC % % Absolute Neutrophils (1.2-6.7) 10^3/uL Absolute Lymphocytes (1.2-3.4) 10^3/uL Absolute Monocytes (0.1-0.8) 10^3/uL Absolute Eosinophils (0.0-0.7) 10^3/uL Absolute Basophils (0.0-0.2) 10^3/uL Sodium (136-145) mmol/L Potassium (3.5-5.1) mmol/L Chloride (98-107) mmol/L Carbon Dioxide (21.0-32.0) mmol/L Anion Gap (3-11) mmol/L BUN (7-18) mg/dL Creatinine (0.55-1.02) mg/dL Estimated GFR/1.73 m2 (mL/min/1.73m2) Glucose (74-106) mg/dL Calcium (8.5-10.1) mg/dL Total Bilirubin (0.2-1.0) mg/dL AST (15-37) U/L ALT (14-59) U/L Alkaline Phosphatase (46-116) U/L Total Protein (6.4-8.2) g/dL Albumin (3.4-5.0) g/dL Urine Opiates Screen (Negative) Negative Urine Methadone Screen (Negative) Negative Ur Barbiturates Screen (Negative) Negative Ur Tricyclics Screen (Negative) Negative Ur Amphetamines Screen (Negative) Negative U Benzodiazepines Scrn (Negative) Negative Urine Cocaine Screen (Negative) Negative Ur THC Screen (Negative) Positive A Ethyl Alcohol (<3) mg/dL <Chase Ray DO - Last Filed: 10/05/20 23:49> Case was signed out to me by my colleague Aime Romero, please refer to his HPI, physical exam assessment and plan. At time of signout we are pending consult from [facility]. 4 hours after initial page was placed [facility] was able to call back, we discussed the case, reviewed the images, discussed the exam findings. Discussed the case with Stefany miranda of neurosurgery. At this time [facility] neurosurgery team recommends discharge with close follow-up on an outpatient basis and continue plan for surgery. They stated that they will contact the patient for follow-up. Reassessment by myself demonstrate neurologically stable patient, no focal neurologic deficits, meningeal signs, or other abnormalities. Although fatigued she states that she does feel well and her headache is notably improved. I contacted her Matias and discussed the case with him as well. They agree with the assessment and plan. I have extensively reviewed the treatment plan and discharge instructions with the patient and their family. I have addressed all patient concerns at this time. The patient and family was made aware of what symptoms to monitor for that would warrant a return to the emergency department. Discussed the plan with the patient and family, they demonstrate verbal understanding and agreement with our assessment and plan at this time. The documentation in this chart was dictated using [employer] dictation software. Please excuse any dictation errors. HPI <Aime Romero PA - Last Filed: 10/06/20 08:24> General Mode of arrival: ambulatory . Date/Time Provider Initiated Documentation: 10/05/20 19:03 . Limitations to Documentation: no limitations . Information obtained by: patient . HPI Narrative: This is a 34-year-old female, past medical history that includes cavernoma diagnosed 2 years ago, seizure- like activity diagnosed 1 year ago, chronic migraines, followed by neurology in [place] and neurosurgery at [facility], presenting to the ER reporting seizure activity on Saturday and again today, left frontal headache that has been progressive over the past 24 hours, reports difficulty with short-term memory, and feels foggy. Patient states this is a very typical presentation of her symptoms and that after she has a seizure she typically has migraines because her cavernoma bleed. She is scheduled for a neurologic surgical procedure in the next month but does not know the exact date just yet. She denies recent illness or trauma. She denies visual changes, neck pain, fever, chest pain, shortness of breath, cough, abdominal pain, vomiting, numbness, tingling. She does admit to mild nausea, but she describes as left-sided body weakness which is typical for her episodes. Unfortunately she is not able to provide much information as to what her seizures seem to be like, she cannot recall the episodes very well. She states today neighbors saw her having a seizure and that she was acting abnormal. I was able to talk with her who states that he did not witness this but his daughter and neighbors did, she was agitated, acting different than her baseline, and then was noted to have seizure-like activity. Patient states that she is not on any medications for her seizures because they are nonepileptic. Patient states that she is scared given her diagnosis of cavernoma, and would like a head CT to be sure that there is nothing more serious going on this evening. Patient denies biting her tongue but reports that she was incontinent of urine both Saturday and today during her episodes Related Data Home Medications Medication Instructions Recorded Confirmed citalopram 40 mg PO DAILY 06/29/20 10/05/20 diphenhydramine HCl [Benadryl] 25 mg PO HS 06/29/20 10/05/20 lisinopril 40 mg PO DAILY 06/29/20 10/05/20 lorazepam 1 mg PO TID PRN 06/29/20 10/05/20 pantoprazole 40 mg PO DAILY 06/29/20 10/05/20 vitamin B complex 1 cap PO DAILY 06/29/20 10/05/20 vitamin B6-vitamin E-magnesium 1 tab PO DAILY 06/29/20 10/05/20 promethazine 25 mg PO Q6H PRN #20 tab 07/04/20 10/05/20 topiramate 50 mg PO BID #60 tab 07/04/20 10/05/20 Previous Rx's Medication Instructions Recorded promethazine 25 mg PO Q6H PRN #20 tab 07/04/20 topiramate 50 mg PO BID #60 tab 07/04/20 Allergies Allergy/AdvReac Type Severity Reaction Status Date / Time red dye Allergy Unverified 10/05/20 19:12 General Stated Complaint: Headache ALEX: 3 Review of Systems <YUE Ware - Last Filed: 10/06/20 08:24> Constitutional Constitutional: Reports fatigue, Denies fever(s) and Reports headache(s) Eyes Eyes: Denies change in vision ENT Ears, Nose, Mouth, and Throat: Reports headache(s) and Denies neck pain Cardiovascular Cardiovascular: Denies chest pain Respiratory Respiratory: Denies cough Gastrointestinal Gastrointestinal: Denies abdominal pain, Reports nausea and Denies vomiting Genitourinary Genitourinary: Denies dysuria Musculoskeletal Musculoskeletal: Denies back pain, Denies neck pain, Denies numbness and Denies tingling Integumentary/Breasts Skin/Breast: Denies rash Neurologic Neurologic: Reports headache(s), Denies numbness, Denies tingling and Reports weakness (left arm/leg) Psychiatric Psychiatric: Reports anxiety Endocrine Endocrine: Reports fatigue Hematologic/Lymphatic Hematologic/Lymphatic: Denies easy bleeding and Denies easy bruising PFSH <YUE Ware - Last Filed: 10/06/20 08:24> Medical History Cavernoma Social History Smoking/Tobacco Use Status: Former Tobacco Use Smoking risk assessment performed?: Yes Alcohol Intake: current Alcohol Intake frequency: holidays/special occasions only Drug use: Occasionally Substance use type: marijuana Details: no recent alchol use marijuana today Do you feel safe at home: Yes Do you feel safe in your relationship?: Yes Additional Social history: unable to assess unstable condition Exam <YUE Ware - Last Filed: 10/06/20 08:24> Const General: cooperative, healthy appearing, comfortable and anxious Orientation: alert, awake and oriented x3 HENMT Head: normal to inspection, normocephalic and atraumatic Face and sinus: normal facial exam Mouth: moist mucous membranes Throat: posterior oropharynx normal Eyes General: appearance normal, both eyes and all related structures Alignment and Position: alignment normal Periorbital: periorbital findings normal Eyelids: eyelids normal Conjunctivae: conjunctivae normal Sclera: sclerae normal Cornea: corneas normal Pupils: PERRL EOM: EOM intact bilaterally Direct ophthalmoscopy: normal light reflex Neck Neck: normal visual inspection, full ROM, no lymphadenopathy, no meningeal signs, trachea midline, supple and nontender Resp Effort & Inspection: normal respiratory effort and able to speak in complete sentences Auscultation: clear to auscultation bilaterally Cardio Rate: regular rate Rhythm: regular rhythm GI Palpation: soft and nontender Back/Spine/Pelvis Back: No back tenderness Skin General skin exam: no rashes or lesions noted Neuro General: patient alert, patient awake, patient oriented x3, moves all extremities and no focal motor deficits Cranial Nerves: CN's II-XI intact bilaterally Cognition: normal cognition Speech: speech normal Gait: normal gait Motor: muscle tone normal throughout, strength 5/5 throughout, no pronator drift, no movement abnormalities noted and no fasciculations Sensory Exam: no sensory deficits noted Coordination: Does not sway with eyes open Extrem General: normal to inspection, full ROM, capillary refill normal, no pedal edema and no calf tenderness Psych Appearance: grossly normal Mental Status: mental status grossly normal Course <YUE Ware - Last Filed: 10/06/20 08:24> Vital Signs Vital signs: Vital Signs Temperature 36.5 C 10/05/20 19:07 Pulse 112 H 10/05/20 19:07 Respiratory Rate 18 10/05/20 19:07 Blood Pressure 136/71 10/05/20 19:07 Pulse Oximetry 96 10/05/20 19:07 Temperature 36.5 C 10/05/20 19:07 Temperature Source Temporal Artery Scan 10/05/20 19:07 Pulse 87 10/05/20 20:02 Pulse 91 H 10/05/20 20:02 Respiratory Rate 13 08/18/21 20:02 Respiratory Effort Non-Labored 10/05/20 19:11 Blood Pressure 116/54 L 10/05/20 20:02 Blood Pressure Mean 67 10/05/20 20:02 Blood Pressure Position Sitting 10/05/20 19:07 Pulse Oximetry 95 10/05/20 20:02 Oxygen Delivery Method Room Air 10/05/20 19:07 Oxygen Flow Rate 0 10/05/20 19:07 Pain Level 8 10/05/20 19:19 Lab/Test Results Lab/Test Results: Laboratory Tests Range/Units 10/05/20 10/05/20 10/05/20 19:26 19:26 19:26 WBC (4.4-10.8) 10^3/uL 12.94 H RBC (3.93-5.22) 10^6/uL 4.18 Hgb (11.2-15.7) g/dL 12.3 Hct (36.0-46.0) % 36.9 MCV (80-95) fL 88.3 MCH (27.0-33.0) pg 29.4 MCHC (32.0-36.0) % 33.3 RDW (11.7-14.6) % 12.7 Plt Count (130-400) 10^3/uL 314 MPV (8.0-11.0) fL 9.2 Immature Gran % 0.4 Neutrophils % 82.6 Lymphocytes % 12.1 Monocytes % 4.5 Eosinophils % 0.1 Basophils % 0.3 Nucleated RBC % % 0 Absolute Neutrophils (1.2-6.7) 10^3/uL 10.69 H Absolute Lymphocytes (1.2-3.4) 10^3/uL 1.57 Absolute Monocytes (0.1-0.8) 10^3/uL 0.58 Absolute Eosinophils (0.0-0.7) 10^3/uL 0.01 Absolute Basophils (0.0-0.2) 10^3/uL 0.04 Sodium (136-145) mmol/L 138 Potassium (3.5-5.1) mmol/L 3.9 Chloride (98-107) mmol/L 105 Carbon Dioxide (21.0-32.0) mmol/L 23.6 Anion Gap (3-11) mmol/L 9.4 BUN (7-18) mg/dL 8 Creatinine (0.55-1.02) mg/dL 0.8 Estimated GFR/1.73 m2 (mL/min/1.73m2) >= 60.00 Glucose (74-106) mg/dL 119 H Calcium (8.5-10.1) mg/dL 9.1 Total Bilirubin (0.2-1.0) mg/dL 0.4 AST (15-37) U/L 13 L ALT (14-59) U/L 30 Alkaline Phosphatase (46-116) U/L 72 Total Protein (6.4-8.2) g/dL 7.8 Albumin (3.4-5.0) g/dL 4.0 Ethyl Alcohol (<3) mg/dL < 3.0 POC- Test(urine) Negative
[2020-10-05 20:28] LABS: *AMPHETAMINES SCREEN URINE Negative (Negative); *BARBITURATES SCREEN URINE Negative (Negative); *BENZODIAZEPINES SCREEN URINE Negative (Negative); Cannabinoids THC Positive (Negative); Cocaine Screen,Urine Negative (Negative); METHADONE URINE SCREEN Negative (Negative); OPIATES URINE SCREEN Negative (Negative)
[2020-10-05 20:30] LABS: Tricyclic Antidepressants Negative (Negative)
== END 2020-10-05 23:56 | disposition home or self-care (01) ==
PROVIDERS: Emergency Provider Physician Assistant
DX: D18.02 Hemangioma of intracranial structures (principal); R51.9 Headache, unspecified; R56.9 Unspecified convulsions
CPT/HCPCS: 80053; 80307; 81025; 96374; 96375; 99284; 70450; 80320; 85025; J2060; J2270

== ENCOUNTER 2020-10-11 09:24 | Observation (INO) | payer OTHER, SELFPAY ==
[2020-10-11] VITALS (45 sets, daily range): BP systolic 106–139; BP diastolic 56–82; PULSE 56–75; RESP 9–26; TEMP 36.1–36.8; O2SAT 93–98
--- NOTE | 2020-10-11 09:30 | RT.EKG_ITS ---
APPROVED REPORT Exam: Resting ECG Reason for Exam: seizure Patient Location: E HR:74 bpm ECG Measurements Heart Rate 74 AXIS MN 147 P 19 QRSd 96 QRS 41 QT 351 T 33 QTc 390 Conclusion Sinus rhythm...normal P axis, V-rate 60- 99
--- NOTE | 2020-10-11 09:42 | ED.GENADUL_ITS ---
Discharge Plan Disposition Patient Disposition: [facility] INPATIENT Condition: Stable Discharge Details Chief Complaint: Seizure Clinical Impression: Acute frontal sinusitis, Cavernoma, Cephalgia Admit Date/Time: 10/11/20 15:31 Admit Provider: Patricio Zamora Attending Provider: Patricio Zamora Primary Care Provider: Medardo Redman ED Provider: Medardo Velez Medical Decision Making 34yo Female with a known left frontal cavernoma and seizure disorder for which she takes Topamax. Presents with feeling weak last night, thn deveoped a generalized tonic-clonic seizure with grinding of her teeth, chipping a tooth. No urinary incontinence. Today feels left frontal headache and left sided weakness. No difficulty with speech, no falls. States she had a seizure last week and again last night. She has scheduled with Dr. Mackenzie laser ablation/ excision of her known cavernoma. She states she finished a recent course of amoxicillin for sinus infection. IV access was established, patient given anxiolytic, analgesia, fluids initiated, referred for laboratory analysis and CT scan of the head. Patient has a normal CBC, INR 1.0, chemistries unremarkable. CT of head reveals mostly given change in left frontal cavernoma. She has pansinusitis most pronounced left ethmoid. See formal report. Patient was had improvement of pain with parenteral medications. She has residual subjective left-sided diminished sensation, as well as persistent weakness of the left arm and leg. May represent edematous changes surrounding her known mass, Ghanshyam's paralysis, cavernoma-related seizure, persistent subclinical seizure, CVA. Images uploaded and case discussed with on-call neurosurgery at [facility], Dr. Calvo; there is no acute neurosurgical indication today. Patient's pending ablation will reduce her cavernoma associated seizure. Dr. Black recommended discussion of further antiepileptics with neurology as well as ongoing treatment of the patient's migraine type symptoms and consideration of treatment of persistent sinusitis. Following my discussion with [facility], patient had left head turning, teeth grinding and facial twitching, consistent with partial seizure. She was given additional Ativan and 1 g of Keppra, improved and was able to speak normally. I did discuss patient's case with on-call neurology Dr Puentes, who agrees with adding Keppra, treatment of sinusitis, and consideration of EEG. At the time of re- examination approx 1400, the patient has had significant improvement without residual left sided weakness. HPI General Mode of arrival: wheelchair . Date/Time Provider Initiated Documentation: 10/11/20 09:26 . Limitations to Documentation: no limitations . History of Present Illness 34 year old F presents to the emergency department with the chief complaint of Seizure, headache, described as moderate and similar to prior episodes, Quality is described as dull and constant, and is localized to the head and left. Patient reports no radiation. Patient started experiencing this hour(s) and it has been constant. No relieving factors improve symptom(s), No exacerbating factors reported . Patient notes other (Left side feels weak, left-sided headache, left face feels tingly.); denies syncope. Patient did receive the following treatments prior to arrival, none Related Data Home Medications Medication Instructions Recorded Confirmed citalopram 40 mg PO DAILY 06/29/20 10/11/20 diphenhydramine HCl [Benadryl] 25 mg PO HS 06/29/20 10/11/20 lisinopril 40 mg PO DAILY 06/29/20 10/11/20 lorazepam 1 mg PO TID PRN 06/29/20 10/11/20 pantoprazole 40 mg PO DAILY 06/29/20 10/11/20 vitamin B complex 1 cap PO DAILY 06/29/20 10/11/20 vitamin B6-vitamin E-magnesium 1 tab PO DAILY 06/29/20 10/11/20 promethazine 25 mg PO Q6H PRN #20 tab 07/04/20 10/11/20 topiramate 50 mg PO BID #60 tab 07/04/20 10/11/20 Previous Rx's Medication Instructions Recorded promethazine 25 mg PO Q6H PRN #20 tab 07/04/20 topiramate 50 mg PO BID #60 tab 07/04/20 Allergies Allergy/AdvReac Type Severity Reaction Status Date / Time red dye Allergy Unverified 10/11/20 09:33 General Stated Complaint: Seizure ALEX: 3 Review of Systems Narrative: bloody nose last nigth. Just finished Amoxicillin for sinus infection. Anxious. Not immunized for COVID-19. Has plans for excision of cavernoma with [facility] neurosurgery in October, followed by [facility] neurology. Denies recent illness. Feels she chipped her left rear molar last night. 8 systems reviewed and otherwise negative. [facility] Medical History Cavernoma Social History Smoking/Tobacco Use Status: Former Tobacco Use Smoking risk assessment performed?: Yes Alcohol Intake: current Alcohol Intake frequency: holidays/special occasions only Drug use: Occasionally Substance use type: marijuana Details: no recent alchol use marijuana today Do you feel safe at home: Yes Do you feel safe in your relationship?: Yes Additional Social history: unable to assess unstable condition Exam Narrative Exam Narrative: GEN: awake, alert, oriented 3. Pleasant, well groomed, interactive. HEAD: Normocephalic, atraumatic ENT: Mucous membranes moist, oropharynx unremarkable, note of chipped tooth left mandibular molar, External ear exam unremarkable EYES: PERRL, EOMI NECK: Full ROM, no KITA, no menigismus CHEST/RESP: Nontender, clear to auscultation bilateral, no wheeze/rhonchi/rales CARDIOVASCULAR: RRR, no murmur, rub perico. 2+ Rad pulse bilateral ABDOMEN: Soft, nontender, no mass. +Bowel sounds EXT: Full ROM, exam wax and wane somewhat. No facial droop, no anesthesia. Left arm and leg with slight weakness against resistance, right arm and leg normal. Neuro: Grossly normal neurologic exam, conversant, interactive. Psych: Speech fluent, thoughts congruent, affect anxious Course Vital Signs Vital signs: Vital Signs Temperature 36.8 C 10/11/20 09:28 Pulse 75 10/11/20 09:28 Pulse Oximetry 96 10/11/20 09:28 Temperature 36.8 C 10/11/20 09:28 Temperature Source Temporal Artery Scan 10/11/20 09:28 Pulse 75 10/11/20 09:28 Respiratory Effort Non-Labored 10/11/20 09:31 Blood Pressure Position Supine 10/11/20 09:28 Pulse Oximetry 96 10/11/20 09:28 Pain Level 8 10/11/20 09:28
[2020-10-11 10:01] LABS: Abs Immature Grans 0.04 10^3/uL (0.0-0.06); Absolute Basophil Count 0.04 10^3/uL (0.0-0.2); Absolute Eosinophil Count 0.16 10^3/uL (0.0-0.7); Absolute Lymphocyte Count 2.25 10^3/uL (1.2-3.4); Absolute Monocyte Count 0.61 10^3/uL (0.1-0.8); Absolute Neutrophil Count 5.45 10^3/uL (1.2-6.7); Basophils % 0.5; Eosinophils % 1.9; HGB 12.9 g/dL (11.2-15.7); Immature Grans % 0.5; Lymphocytes % 26.3; MCH 29.3 pg (27.0-33.0); MCHC 33.1 % (32.0-36.0); MCV 88.6 fL (80-95); MPV 9.7 fL (8.0-11.0); Monocytes % 7.1; Neutrophils % 63.7; Nucleated RBC 0 %; Platelet Count 309 10^3/uL (130-400); RDW 12.6 % (11.7-14.6); RDW-SD 40.9 fL; WBC 8.55 10^3/uL (4.4-10.8)
[2020-10-11 10:02] LABS: Bilirubin Negative (Negative); Blood Negative (Negative); Clarity Clear (Clear); Glucose Negative (Negative); Ketones Negative (Negative); Leukocyte Esterase Negative (Negative); Nitrite Negative (Negative); Specific Gravity 1.015 (1.005-1.025); Urobilinogen 0.2 EU/dL (Up TO 0.2)
[2020-10-11 10:14] LABS: ALT 32 U/L (14-59); AST 14 U/L (15-37); Albumin 3.7 g/dL (3.4-5.0); Alkaline Phosphatase 69 U/L (46-116); Anion Gap 10.2 mmol/L (3-11); BUN 9 mg/dL (7-18); Bilirubin, Total 0.4 mg/dL (0.2-1.0); CO2 24.8 mmol/L (21.0-32.0); CREATININE 0.8 mg/dL (0.55-1.02); Calcium 9.1 mg/dL (8.5-10.1); Chloride 106 mmol/L (98-107); Glucose 107 mg/dL (74-106); Potassium 4.1 mmol/L (3.5-5.1); Sodium 141 mmol/L (136-145); Total Protein 7.4 g/dL (6.4-8.2)
[2020-10-11] MEDS: Normal Saline 1,000 ML 150 ML IV (10:19)
[2020-10-11] MEDS: ACETAMINOPHEN 1,000 MG/100 ML BTL 400 MG IVPB (10:19)
[2020-10-11 10:20] LABS: PTT Activated 25.1 sec (21.0-27.5); Prothrombin Time 9.6 sec (9.3-11.0)
[2020-10-11] MEDS: LORazepam 2 MG/ML VIAL 0.5 MG IVP (10:31)
[2020-10-11] MEDS: HYDROmorphone 2 MG/ML VIAL 1 MG IVP (11:04)
[2020-10-11] MEDS: Ondansetron 4 MG/2 ML VIAL IVP (11:05)
--- NOTE | 2020-10-11 11:15 | DI.CT_ITS ---
Exam(s) CT HEAD SINUS WO EXAM: CT HEAD SINUS WO CLINICAL HISTORY: L frontal headache, hx of cavernoma, sinusitis. TECHNIQUE: Imaging Protocol: Axial computed tomography images with coronal and sagittal reformatted images were created and reviewed COMPARISON: MR MR BRAIN WO from 06/29/2020 MR MR BRAIN WO from 06/29/[address] HEAD - STROKE PROTOCOL from 10/05/[address] HEAD - STROKE PROTOCOL from 10/05/2020 FINDINGS: CT Head: Ventricles and Extra axial spaces: Normal in size and morphology for the patient's age. Hemorrhage: No acute hemorrhage. Cerebral parenchyma: Stable focus increased attenuation in the left frontal lobe. Midline shift: None. Brainstem/Cerebellum: Normal. Calvarium: Normal. Visualized Paranasal sinuses/Mastoids: Pansinusitis. Clear mastoids. Soft Tissues: Unremarkable. CT sinus:: Facial Bones: No fracture is noted in facial bones. Sinuses and Mastoids: Stable appearance mucous within the dependent portions of both maxillary sinus es as well as opacification of both multiple left-sided ethmoid sinuses and mucous retention of both sphenoid and frontal sinuses. Mastoid air cells are clear. Globes, extraocular muscles, optic nerves and retrobulbar fat: Normal. Upper aerodigestive tract: Normal. Mandible and bilateral temporomandibular joints: Normal. Soft tissues: Normal. IMPRESSION: 1. Stable focus high attenuation in the left frontal lobe, consistent with a cavernous malformation.. No acute intracranial process. 2. Dawkins sinusitis, unchanged. RADIATION DOSE DELIVERED: 896.71mGy.cm Total DLP DATA REPOSITORY: All CT scans at this facility are submitted to the National Radiology Data Registry (NRDR) Dose Index Registry (DIR) with the [employer] ([employer]). RADIATION OPTIMIZATION: All CT scans at this facility use at least one of these dose optimization te chniques: automated exposure control; mA and/or kV adjustment per patient size (includes targeted exa ms where dose is matched to clinical indication); or iterative reconstruction.
[2020-10-11] MEDS: Dexamethasone 10 MG/ML VIAL IVP (11:31)
[2020-10-11 12:09] LABS: Source Nasal/Nares
--- NOTE | 2020-10-11 13:02 | NUR.NOTE ---
Ambulates to restroom with steady gait. Denies dizziness.Voids independently. IV fluids running per order.Nursing Note:
[2020-10-11 13:04] LABS: COVID-19 PCR Negative (Negative)
[2020-10-11] MEDS: LORazepam 2 MG/ML VIAL 1 MG IVP (13:12)
[2020-10-11] MEDS: levETIRAcetam 1,000 MG in Normal Saline 100 ML 400 MG IVPB (13:19)
--- NOTE | 2020-10-11 13:26 | NUR.NOTE ---
1320-Patient sits up in bed, complains of pain in head, slight nausea but better than on arrival. Able to state name, , location and date. Able to recall medical history and plans of surgery next month. Moves all extremities. Speech clear.Nursing Note:
--- NOTE | 2020-10-11 13:31 | NUR.NOTE ---
At 1320 patient sitting self up utilizing her left arm to boost herself in the bed and talking in full clear sentences. Dr Velez updated.
[2020-10-11] MEDS: HYDROmorphone 2 MG/ML VIAL 0.5 MG IVP (13:38)
[2020-10-11] MEDS: AMPICILLIN/SULBACTAM 3 GM in Normal Saline 100 ML IVPB ×2 (13:39→19:26)
--- NOTE | 2020-10-11 13:48 | NUR.NOTE ---
Provided with Powerade, ann crackers and saltines. No difficulty swallowing. IV fluids and antibiotics infusing per order. Call light in reach. Warm blanket provided. Lights dimmed for comfort. Nursing Note:
--- NOTE | 2020-10-11 14:39 | NUR.NOTE ---
Patient sitting upright on cart, eating lunch tray. Denies needs. Call light in reach.Nursing Note:
[2020-10-11] MEDS: LORazepam 1 MG TAB PO ×2 (16:17→19:11)
--- NOTE | 2020-10-11 16:53 | HPE_ITS ---
Date of service: 10/11/20 Time of Service: 16:54 Assessment and Plan Assessment and plan (1) Headache: Status: Acute Assessment and plan: Multifactoral: sinusitis, cavernoma, stress/anxiety. Toradol IV x 1 now. Treating sinusitis which is likely the major etiology. (2) Cavernoma: Status: Acute Assessment and plan: Planned laser ablation. (3) Sinusitis: Status: Acute Assessment and plan: Unasyn initiated in the ED Will d/c on Augmentin. Fluticasone nasal spray. (4) Depression: Status: Chronic Assessment and plan: Cont citalopram at 40mg daily. Concerned that the lorazepam she takes is contributing to depression. (5) Anxiety: Status: Acute Assessment and plan: Takes lorazepam 1mg TID. Consider alternative such as Buspar and wean down lorazepam History of Present Illness History of Present Illness Chief Complaint: Seizure, MCGARRY Narrative: 34 year old female with a h/o frontal cavernoma, seizure disorder, headaches. She presented to the emergency department with the chief complaint of seizure and headache, described as moderate and similar to prior episodes. She describes the headache as dull and constant, and is localized to the to the left size of his head. She also endorsed left sided weakness. 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 She takes Topamax. States she had a seizure last week and again last night. She has a scheduled (with Dr. Mackenzie) laser ablation/excision of her known cavernoma. She states she finished a recent course of amoxicillin for sinus infection. CT head showed sinusitis and the cavernoma. The images were reviewed by neurosurgeon at [facility] [place], Dr. Calvo. There is no acute neurosurgical indication. In the ED she did patient have an episode left head turning, teeth grinding and facial twitching, consistent with partial seizure. She was given additional Ativan and 1 g of Keppra, improved and was able to speak normally. Patient's case discussed with on-call neurology Dr Puentes, who agreed with adding Keppra, treatment of sinusitis, and consideration of EEG. At the time of re-examination approx 1400, the patient has had significant improvement without residual left sided weakness. She was admitted and monitored overnight. Her MCGARRY / facial pressure persisted despite doses of Toradol. Unasyn given for sinusitis. Her TID ativan was continued. She was very concerned with controlling her anxiety. Review of Systems All systems reviewed & are unremarkable except as noted in HPI and below PFSH Medical History (Updated 10/12/20 @ 14:38 by Patricio Zamora MD) Anxiety Cavernoma Chronic headache Functional neurological symptom disorder with attacks or seizures Hypertension Obstructive sleep apnea Strabismic amblyopia, bilateral Surgical History S/P section S/P eye surgery bilateral lateral rectus and repeat on R Social History Smoking/Tobacco Use Status: Former Tobacco Use Smoking risk assessment performed?: Yes Alcohol Intake: current Alcohol Intake frequency: holidays/special occasions only Drug use: Occasionally Substance use type: marijuana Details: no recent alchol use marijuana today Household members: family Number of Children: 2 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; Previous [employer] Do you feel safe at home: Yes Do you feel safe in your relationship?: Yes Additional Social history: unable to assess unstable condition Meds Allergies and Home Medications Allergies Allergy/AdvReac Type Severity Reaction Status Date / Time red dye Allergy Unverified 10/11/20 09:33 Home Medications Medication Instructions Recorded Confirmed Type citalopram 40 mg PO DAILY 06/29/20 10/11/20 History diphenhydramine HCl [Benadryl] 25 mg PO HS 06/29/20 10/11/20 History lisinopril 40 mg PO DAILY 06/29/20 10/11/20 History lorazepam 1 mg PO TID PRN 06/29/20 10/11/20 History pantoprazole 40 mg PO DAILY 06/29/20 10/11/20 History vitamin B complex 1 cap PO DAILY 06/29/20 10/11/20 History vitamin B6-vitamin E-magnesium 1 tab PO DAILY 06/29/20 10/11/20 History promethazine 25 mg PO Q6H PRN #20 tab 07/04/20 10/11/20 Rx topiramate 50 mg PO BID #60 tab 07/04/20 10/11/20 Rx Exam Const General: cooperative and other (speaks in soft voice. Brow furrowed.) Nutritional Appearance: obese HENMT Head: normocephalic and atraumatic Neck Neck: meningismus present and no JVD Resp Effort & Inspection: normal respiratory effort Auscultation: clear to auscultation bilaterally Cardio Rate: regular rate Rhythm: regular rhythm Heart Sounds: S1 normal and S2 normal GI Palpation: soft and nontender Skin General skin exam: no rashes or lesions noted Neuro General: moves all extremities Cranial Nerves: PERRL and facial strength normal Cognition: normal cognition Speech: speech normal Extrem General: no pedal edema and no calf tenderness Psych Mental Status: mental status grossly normal Affect: anxious affect Results Labs Result diagrams: 10/11/20 09:40 10/11/20 09:40 Labs: Laboratory Results - last 24 hr 10/11/20 10/11/20 10/11/20 09:40 09:40 09:40 WBC 8.55 RBC 4.40 Hgb 12.9 Hct 39.0 MCV 88.6 MCH 29.3 MCHC 33.1 RDW 12.6 Plt Count 309 MPV 9.7 Immature Gran % 0.5 Neutrophils % 63.7 Lymphocytes % 26.3 Monocytes % 7.1 Eosinophils % 1.9 Basophils % 0.5 Nucleated RBC % 0 Absolute Neutrophils 5.45 Absolute Lymphocytes 2.25 Absolute Monocytes 0.61 Absolute Eosinophils 0.16 Absolute Basophils 0.04 PT 9.6 INR 1.0 APTT 25.1 Sodium 141 Potassium 4.1 Chloride 106 Carbon Dioxide 24.8 Anion Gap 10.2 BUN 9 Creatinine 0.8 Estimated GFR/1.73 m2 >= 60.00 Glucose 107 H Calcium 9.1 Total Bilirubin 0.4 AST 14 L ALT 32 Alkaline Phosphatase 69 Total Protein 7.4 Albumin 3.7 Urine Color Urine Clarity Urine pH Ur Specific [place] Urine Protein Urine Ketones Urine Blood Urine Nitrite Urine Bilirubin Urine Urobilinogen Ur Leukocyte Esterase Urine Glucose COVID-19 Source SARS-CoV-2 (PCR) 10/11/20 10/11/20 09:53 12:00 WBC RBC Hgb Hct MCV MCH MCHC RDW Plt Count MPV Immature Gran % Neutrophils % Lymphocytes % Monocytes % Eosinophils % Basophils % Nucleated RBC % Absolute Neutrophils Absolute Lymphocytes Absolute Monocytes Absolute Eosinophils Absolute Basophils PT INR APTT Sodium Potassium Chloride Carbon Dioxide Anion Gap BUN Creatinine Estimated GFR/1.73 m2 Glucose Calcium Total Bilirubin AST ALT Alkaline Phosphatase Total Protein Albumin Urine Color Yellow Urine Clarity Clear Urine pH 7.0 Ur Specific [place] 1.015 Urine Protein Negative Urine Ketones Negative Urine Blood Negative Urine Nitrite Negative Urine Bilirubin Negative Urine Urobilinogen 0.2 Ur Leukocyte Esterase Negative Urine Glucose Negative COVID-19 Source Nasal/Nares SARS-CoV-2 (PCR) Negative Last Vital Signs Temp 36.6 C 10/11/20 15:49 Pulse 67 10/11/20 15:49 Resp 16 10/11/20 15:49 BP 106/68 10/11/20 15:49 Pulse Ox 97 10/11/20 15:49
[2020-10-11] MEDS: Ketorolac 30 MG/ML VIAL IVP (17:42)
[2020-10-11] MEDS: Fluticasone NASAL SPRAY 16 GM BTL NS (18:07)
[2020-10-11] MEDS: levETIRAcetam 500 MG TAB 1000 MG PO (19:10)
[2020-10-11] MEDS: Acetaminophen 325 MG TAB 650 MG PO (19:11)
[2020-10-11] MEDS: Topiramate 100 MG TAB PO (19:36)
[2020-10-12] MEDS: Acetaminophen 325 MG TAB 650 MG PO ×4 (00:21→23:21)
--- NOTE | 2020-10-12 00:24 | NUR.NOTE ---
Nursing Note: Patient requested to keep all side rails up on bed around 00:00 on 10/12/20.
[2020-10-12] MEDS: AMPICILLIN/SULBACTAM 3 GM in Normal Saline 100 ML IVPB ×4 (02:18→20:21)
[2020-10-12] MEDS: Normal Saline Flush 10 ML SYR IVP ×6 (02:18→23:21)
[2020-10-12] MEDS: LORazepam 1 MG TAB PO ×2 (06:22→23:21)
[2020-10-12] MEDS: levETIRAcetam 500 MG TAB 1000 MG PO ×2 (07:37→20:21)
[2020-10-12] MEDS: Pantoprazole 40 MG TABCR PO (07:37)
[2020-10-12] MEDS: Lisinopril 20 MG TAB 40 MG PO (07:37)
[2020-10-12] MEDS: Citalopram 20 MG TAB 40 MG PO (07:37)
[2020-10-12] MEDS: Fluticasone NASAL SPRAY 16 GM BTL NS (07:39)
--- NOTE | 2020-10-12 07:47 | NCONE_ITS ---
Date of service: 10/12/20 Time of Service: 07:47 Assessment and Plan Assessment and plan (1) Functional neurological symptom disorder with attacks or seizures: Status: Acute (2) Functional neurological symptom disorder with mixed symptoms: Status: Acute (3) Chronic headache: Status: Acute (4) Cerebral cavernoma: Status: Acute Assessment and plan: Ms. Bales is a 34 year-old, right-handed woman who was admitted with the following: #1. Seizures. She has known functional/non-epileptic seizures. Per her report, her current events are consistent with her known, typical functional events. However, given expanding and bleeding cavernoma, she is at risk for epileptic se izures as well. She should thus continue topiramate 100mg BID and levetiracetam 1000mg BID for the time being. If she continues to have events, will plan for continuous EEG monitoring for more clarification. I will work to get her prior neurology records from [facility]. #2. Mixed Functional Neurological Disorder. She has noted functional speech, sensory, and motor findings on exam today; this is consistent with historical symptoms. We discussed treatment including cognituve therapy +/- pyschiatric assessment. She initially denied any mental health disorder but has noted severe anxiety - has been asking for benzodiazepine medications. She is also quite convinced that all of her symptoms will resolve once her cavernoma is ablated. I would love for that to be the case, however, still recommended further care. She was agreeable to referral to [facility]. I gave her resource on how to find a counselor near her. #3. Chronic daily headaches, complicated by sinusitis, mood disorder, and untr eated ELMA. Her headaches have been poorly controlled for some time. Antibiotics as per primary team. Increasing topiramate as above to 100mg BID for headache prevention. Will address further as an outpatient. #4. Cerebral cavernoma. Follow-up with [facility] as per scheduled. She currently does not have neurology care. She would like to establish here at [facility]. I will have her scheduled for f/up in the next few weeks. Please call with any further questions or concerns. History of Present Illness History of Present Illness Chief Complaint: seizure Narrative: Handedness: right. HPI: Ms. Bales is a 34 year-old woman with chronic headaches, functional/non- epileptic seizures, hypertension, untreated ELMA, bilateral strabismus with repeated surgeries, and anxiety. #1. Seizures. Ms. Bales presented to the [facility] ER yesterday with headaches and left hemiparesis following a seizure the night prior. States had another seizure the week prior. Describes the seizure the night prior as follows: woke up out of sleep. She felt like she was falling; had a flash of light in her vision. She found she couldn't reach for anything. Eventually she was able to get her husbands attention and then went back to bed. I asked why she thought this was a seizure. She states that she initially at the time of the event didn't know what was happening or going on. It is only with time that she was able to recall what happened... While in the ER, she was witnessed to have another seizure-like event: described as head turning to left, lip smacking, teeth grinding, and facial twitching. Unclear if there was a post-ictal state. She was given IV Ativan as well as 1000mg IV Keppra. She notes 2 types of seizures which she differentiates on whether she has full LOC or not. She has no aura with either. Both involve her falling to the ground with shaking, eyes rolled back as per report. After she notes severe headaches and need to sleep. She recently established care with neurologist Dr. Jordan in early 2020, though he is currently not in practice. She is on topiramate 50mg BID for headaches. She first began having seizure-like events in summer 2019. She was living in [facility] at that time. Presented to various local ERs at that time and ended up with hospitalizations at [facility] for headache in October 2019 and brief stay at [facility] under involuntary hospitalization with SI/behaviors. She underwent an EEG at that time which captured her typical events and for which she was diagnosed with functional seizures. During her hospitalization at [facility] for headaches, she was apparently started on thorazine. This was switched to risperidone due to pharmacy unavailability. It seemed that this improved both her anxiety and headaches per [facility] records, but unclear how long she was on this for. Since fall 2019, she notes infrequent seizure like events. Notes that if she is able to rest for several days at home after an event she didn't feel need to present to medical care. She had ER events at [facility] on 07/03/20 and 10/05/20. Work-up: -EEG (10/10/19 x60min at [facility]): multiple typical events captured associated with normal EEG. -EEG (10/27/19 x 60min at [facility]): normal wake and drowsy. #2. Cerebral cavernoma and developmental venous anomaly. Unclear when this was first discovered. Currently followed by [facility] Dr. Mackenzie. Noted small expansion/hemorrhage from 2018 to 2019. She has been recommended ablation which she is awaiting scheduling. Imaging: -CTH (11/15/17 at [facility]): normal. I reviewed these images personally and this is my personal interpretation. -MRI/MRA/MRV brain (11/15/17 at [facility]): left anterior grimes radiata vascular malformation. SWI/GRE not done. I reviewed these images personally and this is my personal interpretation. -CTH (09/28/19 at [facility]): interval development of hyperintensity in the left frontal lobe, c/w interval hemorrhage of vascular malformation. I reviewed these images personally and this is my personal interpretation. -MRI brain (09/29/19 at [facility]): Lateral left frontal cavernoma with associated developmental venous anomaly with noted old microbleed. My measurement on SWI is ~9mm. I reviewed these images personally and this is my personal interpretation. -CTA head/neck (10/13/19 at [facility]): normal. I reviewed these images personally and this is my personal interpretation. -CTH (06/29/20 at [facility]): stable left frontal cavernoma compared to previous. I reviewed these images personally and this is my personal interpretation. I reviewed these images personally and this is my personal interpretation. -MRI brain w/o (06/29/20 at [facility]): Lateral left frontal cavernoma with associated developmental venous anomaly with noted old microbleed. My measurement on SWI is ~12.3mm. I reviewed these images personally and this is my personal interpretation. -CTH (07/03/20 at [facility]): stable left frontal cavernoma compared to previous. I reviewed these images personally and this is my personal interpretation. -CTH (10/05/20 at [facility]): stable left frontal cavernoma compared to previous. I reviewed these images personally and this is my personal interpretation. -CTH (10/11/20 at [facility]): stable left frontal cavernoma compared to previous. I reviewed these images personally and this is my personal interpretation. #3. Chronic headaches. Ms. Bales has had chronic headaches since the complicated of her child in which she needed blood transfusions. She carries a diagnosis of IIH but has never had documented elevated ICP (prior LP OPs: 23 in 2012, 17 in 2012, 4 in 2017, and 4 in 2019) nor papilledema. She also carries a diagnosis of hemicrania continua but did not respond to previous indomethacin trial. She was getting care through the [facility] from 2012-Oct 2019 and then at [facility] with Dr. Jordan. She has known ELMA, but is not compliant with CPAP. State it does not work. -Preventative medications: COQ10, melatonin, B2, topiramate, amitriptyline, Emgality, lisinopril, verapamil, acetylzolamide, Botox x1 (states they never called her to schedule f/up; no benefit), indomethacin (up to 50mg TID), risperidone, thorazine -Rescue medications: prednisone, alprazaolam, Excedrin, MJ, oxycodone, aspirin, ibuprofen, Toradol, naproxen, hydroxyzine -Current Medications: topiramate 50mg BID Excedrin prn Consults Requesting physician: Patricio Zamora Review of Systems All systems reviewed & are unremarkable except as noted in HPI and below PFSH Medical History Anxiety Cavernoma Chronic headache Functional neurological symptom disorder with attacks or seizures Hypertension Obstructive sleep apnea Strabismic amblyopia, bilateral Surgical History S/P section S/P eye surgery bilateral lateral rectus and repeat on R Social History Smoking/Tobacco Use Status: Former Tobacco Use Smoking risk assessment performed?: Yes Alcohol Intake: current Alcohol Intake frequency: holidays/special occasions only Drug use: Occasionally Substance use type: marijuana Details: no recent alchol use marijuana today Household members: family Number of Children: 2 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; 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 Do you feel safe at home: Yes Do you feel safe in your relationship?: Yes Additional Social history: unable to assess unstable condition Visit Medication and Allergies Active Medications Generic Name Dose Route Start Last Admin Trade Name Freq PRN Reason Stop Dose Admin Acetaminophen 650 mg 10/11/20 14:28 10/12/20 05:31 Acetaminophen 325 Mg Tab PO 650 mg Q4H PRN PRN Administration Acetaminophen/Butalbital/Caffeine 1 tab 10/12/20 07:11 Butalbital/Acetaminophen/Caffeine 50/325/40 Tab PO Q4H PRN PRN Citalopram Hydrobromide 40 mg 10/12/20 08:30 10/12/20 07:37 Citalopram 20 Mg Tab PO 40 mg DAILY ANA Administration Dimethicone/Zinc Oxide 0 gm 10/11/20 14:28 Sergio Protect Cream 142 Gm Tube TP PRN PRN Diphenhydramine HCl 25 mg 10/11/20 22:00 10/11/20 21:58 Diphenhydramine 25 Mg Cap PO Not Given HS ANA Fluticasone Propionate 0 gm 10/11/20 16:50 10/12/20 07:39 Fluticasone Nasal [place] 16 Gm Btl NS 2 sprays DAILY ANA Administration Ampicillin Sodium/Sulbactam 100 mls @ 200 mls/hr 10/11/20 20:00 10/12/20 07:39 Sodium 3 gm/ Sodium Chloride IVPB 200 mls/hr Q6H ANA Administration IV Miscellaneous Supplies 1 each 10/11/20 09:45 Iv Access IV DIRECTED ANA Levetiracetam 1,000 mg 10/11/20 20:00 10/12/20 07:37 Levetiracetam 500 Mg Tab PO 1,000 mg BID ANA Administration Lisinopril 40 mg 10/12/20 08:30 10/12/20 07:37 Lisinopril 20 Mg Tab PO 40 mg DAILY ANA Administration Lorazepam 1 mg 10/11/20 14:36 10/12/20 06:22 Lorazepam 1 Mg Tab PO 1 mg TID PRN PRN Administration Pantoprazole Sodium 40 mg 10/12/20 07:30 10/12/20 07:37 Pantoprazole 40 Mg Tabcr PO 40 mg DAILY@0730 ANA Administration Polyethylene Glycol 17 gm 10/11/20 14:28 Polyethylene Glycol 3350 17 Gm Packet PO DAILY PRN PRN Constipation Promethazine HCl 25 mg 10/11/20 14:36 Promethazine 25 Mg Tab PO Q6H PRN PRN Sodium Chloride 0 ml 10/11/20 09:41 10/12/20 07:40 Normal Saline Flush 10 Ml Syr IVP 10 ml PRN PRN Administration Topiramate 100 mg 10/11/20 20:00 10/11/20 19:36 Topiramate 100 Mg Tab PO 100 mg BID ANA Administration Allergies red dye Allergy (Unverified 10/11/20 09:33) Exam Narrative Exam Narrative: Physical Exam: Gen: Patient of apparent stated age, NAD Head and face: no facial or cranial abnormalities Neck: Supple, no meningismus, no occipital tenderness CV: + S1, S2, RRR, no murmur Resp: CTA B/L Abd: soft, nontender, nondistended Ext: No edema. No clubbing or cyanosis. No bony deformity. Neuro Exam: Language: fluency, naming, repetition, and comprehension intact; Mental Status: AAOx3, current events intact, fund of knowledge intact; Speech: no dysarthria; intermittent functional stuttering and at times slowed speech Cranial nerves: Funduscopy: not performed CN II: visual ling intact CN III, IV, : extraocular movements intact, no nystagmus, pupils symmetric and reactive to light - she then started fluttering her eyelids for about 1 min - able to continue with exam CN V: face sensation absent to LT and PP in left face - though she flinched PP; split vibration across the forehead; CN VII: no facial asymmetry noted CN VIII: hearing intact bilaterally CN IX, X: palate rises symmetrically CN XI: trapezius/SCM 5/5 bilaterally CN XII: protrudes tongue symmetrically Sensory: absent LT and PP in left arm; intact in feet; cannot feel vibration in her LE; joint position intact on right; functional answers on left - answers every time with up Motor: bulk and tone intact. Fine motor movements intact bilaterally. No pronator drift. Strength 5/5 throughout. During formal testing, would not move left ankle. Not flaccidly weak. Reflexes: hyporeflexic throughout; toes down going bilaterally; Coordination: FTN and HTS intact bilaterally Gait: not tested; Results Last Vital Signs Temp 36.4 C L 10/11/20 23:50 Pulse 65 10/11/20 23:50 Resp 18 10/11/20 23:50 BP 130/82 10/11/20 23:50 Pulse Ox 95 10/11/20 23:50 Labs Result diagrams: 10/11/20 09:40 10/11/20 09:40 Labs: Laboratory Results - last 24 hr 10/11/20 10/11/20 10/11/20 09:40 09:40 09:40 WBC 8.55 RBC 4.40 Hgb 12.9 Hct 39.0 MCV 88.6 MCH 29.3 MCHC 33.1 RDW 12.6 Plt Count 309 MPV 9.7 Immature Gran % 0.5 Neutrophils % 63.7 Lymphocytes % 26.3 Monocytes % 7.1 Eosinophils % 1.9 Basophils % 0.5 Nucleated RBC % 0 Absolute Neutrophils 5.45 Absolute Lymphocytes 2.25 Absolute Monocytes 0.61 Absolute Eosinophils 0.16 Absolute Basophils 0.04 PT 9.6 INR 1.0 APTT 25.1 Sodium 141 Potassium 4.1 Chloride 106 Carbon Dioxide 24.8 Anion Gap 10.2 BUN 9 Creatinine 0.8 Estimated GFR/1.73 m2 >= 60.00 Glucose 107 H Calcium 9.1 Total Bilirubin 0.4 AST 14 L ALT 32 Alkaline Phosphatase 69 Total Protein 7.4 Albumin 3.7 Urine Color Urine Clarity Urine pH Ur Specific [place] Urine Protein Urine Ketones Urine Blood Urine Nitrite Urine Bilirubin Urine Urobilinogen Ur Leukocyte Esterase Urine Glucose COVID-19 Source SARS-CoV-2 (PCR) 10/11/20 10/11/20 09:53 12:00 WBC RBC Hgb Hct MCV MCH MCHC RDW Plt Count MPV Immature Gran % Neutrophils % Lymphocytes % Monocytes % Eosinophils % Basophils % Nucleated RBC % Absolute Neutrophils Absolute Lymphocytes Absolute Monocytes Absolute Eosinophils Absolute Basophils PT INR APTT Sodium Potassium Chloride Carbon Dioxide Anion Gap BUN Creatinine Estimated GFR/1.73 m2 Glucose Calcium Total Bilirubin AST ALT Alkaline Phosphatase Total Protein Albumin Urine Color Yellow Urine Clarity Clear Urine pH 7.0 Ur Specific [place] 1.015 Urine Protein Negative Urine Ketones Negative Urine Blood Negative Urine Nitrite Negative Urine Bilirubin Negative Urine Urobilinogen 0.2 Ur Leukocyte Esterase Negative Urine Glucose Negative COVID-19 Source Nasal/Nares SARS-CoV-2 (PCR) Negative
[2020-10-12 07:52] VITALS: BP 114/71; PULSE 65; RESP 19; TEMP 36.6; O2SAT 96
--- NOTE | 2020-10-12 08:16 | INITIAL_ITS ---
- If Service Date Differs Date of service: 10/12/20 Time of Service: 08:16 Care Management Initial Assess REASON FOR HOSPITALIZATION:: headache PAST MEDICAL HISTORY/PAST SURGICAL HISTORY:: Cavernoma PREVIOUS FUNCTIONAL STATUS/SOCIAL/FAMILY SUPPORTS:: Kimberli lives in [place], [place] with her Farhan and 2 daughters ages 9 and 10. 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 CURRENT FUNCTIONAL STATUS:: Kimberli was sitting up in bed when CM met with her. She was pleasant and agreeable to conversation. Kimberli shared that she has been having a difficult time for the past year with seizures and headaches. She has been to the ED several times and this is her second admission for the same symptoms.She admits to being anxious and frustrated. She is being followed at [facility] and will have surgery to remove the cavernoma, likely soon. ADVANCE DIRECTIVES:: none on file Has patient been provided with info about the portal/API?: Yes Did the patient sign up for the portal?: No CODE STATUS:: Full Code INSURANCE COVERAGE / FINANCIAL ISSUES:: [facility] CURRENT HOME/COMMUNITY SERVICES/EQUIPMENT:: none PRIMARY CARE PHYSICIAN:: Medardo Redman POTENTIAL DISCHARGE NEEDS:: Follow up with PCP and discharge plan PATIENT/FAMILY EDUCATION NEEDS:: Review of discharge instructions, medications, follow up plan, activity, limitations, Ask Me Three TRANSPORTATION:: via private vehicle with family PLAN:: Kimberli will be discharged home with no new services. She will be given antibiotics for her sinusitis and will follow up with her community providers, including physicians at [facility]. Kimberli will transport with her .
[2020-10-12] MEDS: Ketorolac 30 MG/ML VIAL IVP (09:12)
[2020-10-12] MEDS: Topiramate 100 MG TAB PO ×2 (09:12→20:20)
[2020-10-12 14:34] VITALS: BP 122/73; PULSE 69; RESP 17; TEMP 36.9; O2SAT 97
--- NOTE | 2020-10-12 14:39 | DSE_ITS ---
Date of service: 10/12/20 Time of Service: 14:39 DS: Diagnosis Discharge Diagnosis (1) Headache: Status: Acute (2) Cavernoma: Status: Acute (3) Sinusitis: Status: Acute (4) Depression: Status: Chronic (5) Anxiety: Status: Acute Discharge Plan Disposition Patient Disposition: HOME Condition: Stable Discharge Details Reason For Visit: Seizure Disorder,Intracranial Cavernoma Admit Date/Time: 10/11/20 14:28 Admit Provider: Patricio Zamora Attending Provider: Patricio Zamora Primary Care Provider: Medardo Redman Hospital Course Hospital Course: 34 year old female with a h/o frontal cavernoma, seizure disorder, headaches. She presented to the emergency department with the chief complaint of seizure and headache, described as moderate and similar to prior episodes. She describes the headache as dull and constant, and is localized to the to the left size of his head. She also endorsed left sided weakness. 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 She takes Topamax. States she had a seizure last week and again last night. She has a scheduled (with Dr. Mackenzie) laser ablation/excision of her known cavernoma. She states she finished a recent c ourse of amoxicillin for sinus infection. CT head showed sinusitis and the cavernoma. The images were reviewed by neurosurgeon at [facility], Dr. Calvo. There is no acute neurosurgical indication. In the ED she did patient have an episode left head turning, teeth grinding and facial twitching, consistent with partial seizure. She was given additional Ativan and 1 g of Keppra, improved and was able to speak normally. Patient's case discussed with on-call neurology Dr Puentes, who agreed with adding Keppra, treatment of sinusitis, and consideration of EEG. At the time of re-examination approx 1400, the patient has had significant improvement without residual left sided weakness. She was admitted and monitored overnight. Her MCGARRY / facial pressure persisted despite doses of Toradol. Unasyn given for sinusitis. Her TID ativan was continued. She was very concerned with controlling her anxiety. Additional sinusitis treatment of fluticasone nasal steroid and IV solumedrol initiated. No true seizure activity noted. On one occassion she told the nurse to tell the doctor that I'm having a seizure. Buspar 10mg TID given for anxiety and she was encouraged to attempt to wean off the lorazepam. She will continue with the increased dose of Topamax, 50mg BID and Keppra 1000mg BID. F/U with PCP being arranged by their office. F/U with neurosurgery per their scheduling. Home Meds and New Rx's Prescriptions: New fluticasone propionate 50 mcg/actuation [place],Suspension 2 spray NS DAILY Qty: 16 RF: 0 topiramate [Topamax] 100 mg Tablet 100 mg PO BID Qty: 60 RF: 0 amoxicillin-pot clavulanate [Augmentin] 875-125 mg tablet 1 tab PO BID Qty: 20 RF: 0 levetiracetam [Keppra] 1,000 mg tablet 1,000 mg PO BID Qty: 60 RF: 0 buspirone 10 mg tablet 10 mg PO TID Qty: 60 RF: 0 buspirone 5 mg Tablet 10 mg PO TID Qty: 60 RF: 0 amoxicillin-pot clavulanate [Augmentin] 875-125 mg tablet 1 tab PO BID Qty: 20 RF: 0 levetiracetam [Keppra] 1,000 mg tablet 1,000 mg PO BID Qty: 60 RF: 0 topiramate [Topamax] 50 mg tablet 50 mg PO BID Qty: 60 RF: 0 prednisone 20 mg tablet 20 mg PO DAILY Qty: 4 RF: 0 Continued citalopram 40 mg Tablet 40 mg PO DAILY RF: 0 pantoprazole 40 mg Tablet,Delayed Release (Dr/Ec) 40 mg PO DAILY RF: 0 diphenhydramine HCl [Benadryl] 25 mg Capsule 25 mg PO HS RF: 0 lorazepam 1 mg Tablet 1 mg PO TID PRNRF: 0 lisinopril 40 mg Tablet 40 mg PO DAILY RF: 0 vitamin B complex Capsule 1 cap PO DAILY RF: 0 vitamin B6-vitamin E-magnesium Tablet 1 tab PO DAILY RF: 0 topiramate 25 mg Tablet 50 mg PO BID Qty: 60 RF: 0 promethazine 25 mg tablet 25 mg PO Q6H PRNQty: 20 RF: 0 Discharge Instructions Instructions: Sinusitis (GEN) Stand Alone Forms: Nursing Discharge Form Referrals: Bailee Celeste [Other] - 10/19/20 10:30 am Activity:: Activity as Tolerated Equipment/Supplies:: No Equipment Needed Diet:: Normal Diet Discharge Orders Discharge Orders: Discharge Order (Routine); Ordered 10/13/20 Ordered By: Patricio Zamora Discharge Data Discharge Date/Time-TO BE ENTERED AT DEPARTURE: 10/13/20 11:15 DS: Summary Time Spent with Patient providing and/or coordinating discharge services: Greater than 30 minutes Status at Discharge Functional status at discharge: independent ambulation Overall status at discharge: patient is not back to baseline Mental Status: mental status grossly normal Speech and Movement: speech clear Mood: other (Unable to ascertain) Affect: blunted Exam Const General: cooperative and other (More conversant. Smiles.) Nutritional Appearance: obese Orientation: awake and oriented x3 HENMT Head: normocephalic and atraumatic Neck Neck: meningismus present and no JVD Resp Effort & Inspection: normal respiratory effort Auscultation: clear to auscultation bilaterally Cardio Rate: regular rate Rhythm: regular rhythm Heart Sounds: S1 normal and S2 normal GI Palpation: soft and nontender Skin General skin exam: no rashes or lesions noted Neuro General: moves all extremities Cranial Nerves: PERRL and facial strength normal Cognition: normal cognition Speech: speech normal Extrem General: no pedal edema and no calf tenderness Psych Mental Status: mental status grossly normal Speech and Movement: speech clear Affect: blunted DS: Data Vitals/I&O Vitals and I&O: Vital Signs Temperature 36.9 C 10/12/20 14:34 Temperature Source Tympanic 10/12/20 14:34 Pulse 69 10/12/20 14:34 Pulse Rhythm Regular 10/12/20 09:00 Pulse 61 10/11/20 15:16 Respiratory Rate 17 10/12/20 14:34 Respiratory Effort Non-Labored 10/12/20 09:00 Respiratory Depth Normal 10/12/20 09:00 Respiratory Pattern Normal 10/12/20 09:00 Blood Pressure 122/73 10/12/20 14:34 Blood Pressure Mean 72 10/11/20 15:16 Blood Pressure Position Supine 10/11/20 09:28 Pulse Oximetry 97 10/12/20 14:34 Oxygen Delivery Method Room Air 10/12/20 14:34 Oxygen Flow Rate 0 10/12/20 14:34 Pain Level 9 10/12/20 09:12 Intake & Output 10/11/20 10/12/20 10/12/20 23:59 11:59 23:59 Intake Total 1725 / 1835 920 / 1400 480 / 1400 Output Total 1050 / 1050 2000 / 2500 500 / 2500 Balance 675 / 785 -1080 / -1100 -20 / -1100 Weight 132.8 kg Intake: IV 1245 / 1355 200 / 200 Oral 480 / 480 720 / 1200 480 / 1200 Output: Urine 1050 / 1050 2000 / 2500 500 / 2500 Other: Urine Color Yellow Yellow Straw Urine Appearance Clear Clear Clear Urine Odor None None Normal Voiding Methods Toilet Toilet Toilet [facility] Medical History Anxiety Cavernoma Chronic headache Functional neurological symptom disorder with attacks or seizures Hypertension Obstructive sleep apnea Strabismic amblyopia, bilateral Surgical History S/P section S/P eye surgery bilateral lateral rectus and repeat on R Social History Smoking/Tobacco Use Status: Former Tobacco Use Smoking risk assessment performed?: Yes Alcohol Intake: current Alcohol Intake frequency: holidays/special occasions only Drug use: Occasionally Substance use type: marijuana Details: no recent alchol use marijuana today Household members: family Number of Children: 2 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
[2020-10-12 15:27] VITALS: BP 115/69; PULSE 69; RESP 16; TEMP 36.8; O2SAT 95
--- NOTE | 2020-10-12 16:20 | W.PM.PROGNOT ---
Date of Service Date of service: 10/12/20 Time of Service: 16:20 Assessment and Plan Assessment and plan (1) Headache: Status: Acute Assessment and plan: Multifactoral: sinusitis, cavernoma, stress/anxiety. Toradol doses have not helped with her MCGARRY Treating sinusitis which is likely the major etiology. (2) Cavernoma: Status: Acute Assessment and plan: Planned laser ablation. (3) Sinusitis: Status: Acute Assessment and plan: Unasyn initiated in the ED Change to Augmentin at time of d/c. Fluticasone nasal spray. IV Solu-medrol 40 mg Q8H (4) Depression: Status: Chronic Assessment and plan: Cont citalopram at 40mg daily. Concerned that the lorazepam she takes is contributing to depression. (5) Anxiety: Status: Acute Assessment and plan: Takes lorazepam 1mg TID. Begin Buspar 10mg po TID. (6) Seizure: Status: Acute Assessment and plan: Neurology consult appreciated. Some concerns about possible pseudoseizure. Cont Topamax and Keppra. Subjective Subjective Patient reports: afebrile; denies nausea, vomiting and shortness of breath Interval history since last seen: Ongoing MCGARRY She tells the nurse I think I am having a seizure. No seizure like activity noted. Exam Const General: cooperative and other (Brow furrowed, speaks in hushed tone) Nutritional Appearance: obese Orientation: awake and oriented x3 HENMT Head: normocephalic and atraumatic Neck Neck: meningismus present and no JVD Resp Effort & Inspection: normal respiratory effort Auscultation: clear to auscultation bilaterally Cardio Rate: regular rate Rhythm: regular rhythm Heart Sounds: S1 normal and S2 normal GI Palpation: soft and nontender Skin General skin exam: no rashes or lesions noted Neuro General: moves all extremities Cranial Nerves: PERRL and facial strength normal Cognition: normal cognition Speech: speech normal Extrem General: no pedal edema and no calf tenderness Psych Mental Status: mental status grossly normal Speech and Movement: speech clear Affect: blunted Objective Last Vital Signs Temp 36.8 C 10/12/20 15:27 Pulse 69 10/12/20 15:27 Resp 16 10/12/20 15:27 BP 115/69 10/12/20 15:27 Pulse Ox 95 10/12/20 15:27
[2020-10-12] MEDS: methylPREDNISolone SUCC 40 MG VIAL IVP ×2 (16:31→23:20)
[2020-10-12] MEDS: busPIRone 5 MG TAB 10 MG PO (20:21)
[2020-10-12] MEDS: diphenhydrAMINE 25 MG CAP PO (21:31)
[2020-10-12 23:26] VITALS: BP 141/88; PULSE 67; RESP 18; TEMP 36.5; O2SAT 95
[2020-10-13] MEDS: AMPICILLIN/SULBACTAM 3 GM in Normal Saline 100 ML IVPB ×2 (03:01→08:38)
[2020-10-13 07:37] VITALS: BP 122/78; PULSE 60; RESP 16; TEMP 36.4; O2SAT 95
[2020-10-13] MEDS: Lisinopril 20 MG TAB 40 MG PO (08:17)
[2020-10-13] MEDS: Acetaminophen 325 MG TAB 650 MG PO (08:17)
[2020-10-13] MEDS: Normal Saline Flush 10 ML SYR IVP (08:17)
[2020-10-13] MEDS: methylPREDNISolone SUCC 40 MG VIAL IVP (08:17)
[2020-10-13] MEDS: Pantoprazole 40 MG TABCR PO (08:17)
[2020-10-13] MEDS: levETIRAcetam 500 MG TAB 1000 MG PO (08:18)
[2020-10-13] MEDS: Citalopram 20 MG TAB 40 MG PO (08:18)
[2020-10-13] MEDS: Topiramate 100 MG TAB PO (08:18)
[2020-10-13] MEDS: busPIRone 5 MG TAB 10 MG PO (08:18)
[2020-10-13] MEDS: Fluticasone NASAL SPRAY 16 GM BTL NS (08:26)
--- NOTE | 2020-10-13 11:03 | PDOC.CMDIS ---
- If Service Date Differs Date of service: 10/13/20 Time of Service: 11:03 LACE Index Scoring Tool - Questions: Length of Stay (in days): 2 Acuity (Admit via E.D.?): Yes E.D. Visits: 4 - Answers: Total Score: 9 Risk of Readmission: Low Risk Care Management Discharge Reason for Hospitalization: headache Discharge Plan: Kimberli will be discharged home with no new services. She will be given antibiotics for her sinusitis and will follow up with her community providers, including physicians at [facility]. Kimberli will transport with her . Patient/Family Education Needs: Review of discharge instructions, medications, follow up plan, activity, limitations, Ask Me Three
== END 2020-10-13 11:15 | disposition home or self-care (01) ==
LOC: ER 09:33 → MS 15:45
PROVIDERS: Admitting Provider Family Medicine; Emergency Provider Emergency Medicine; PCP Family Medicine; Visit Provider Family Medicine
DX: R51.9 Headache, unspecified (principal); J01.40 Acute pansinusitis, unspecified; G40.89 Other seizures; Q28.2 Arteriovenous malformation of cerebral vessels; F32.9 Major depressive disorder, single episode, unspecified; F41.9 Anxiety disorder, unspecified; G47.33 Obstructive sleep apnea (adult) (pediatric); I10 Essential (primary) hypertension; Z20.822 Contact with and (suspected) exposure to COVID-19
CPT/HCPCS: 36415; 80053; 81025; 87635; 93005; 96361; 96365; 96367; 96368; 96375; 96376; 99285; 70450; 70486; 81003; 85025; 85610; 85730; 93010; 99219; 99225; G0378; J0131; J0295; J1100; J1885; J1953; J2060; J2405

== ENCOUNTER 2020-11-16 07:33 | Emergency (ER) | payer OTHER, SELFPAY ==
[2020-11-16] VITALS (19 sets, daily range): BP systolic 111–130; BP diastolic 65–76; PULSE 69–85; RESP 10–20; TEMP 36.7; O2SAT 94–98
--- NOTE | 2020-11-16 07:30 | RT.EKG_ITS ---
APPROVED REPORT Exam: Resting ECG Reason for Exam: numbness Patient Location: E HR:84 bpm ECG Measurements Heart Rate 84 AXIS WY 137 P 34 QRSd 92 QRS 53 QT 371 T 27 QTc 440 Conclusion Sinus rhythm...normal P axis, V-rate 60- 99
--- NOTE | 2020-11-16 08:15 | DI.MRI_ITS ---
Exam(s) MR BRAIN WO EXAM: MR BRAIN WO CLINICAL HISTORY: Hx of seizure disorder sinusitis TECHNIQUE: Multiplanar multisequence MRI of the brain was performed. 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 Small focus of hyperintensity on noncontrast T1 weighted images again noted, consistent with prior small hemorrh age at this level. This appears unchanged from 06/29/2020 There is no significant focal signal abnormality in the cerebellar hemispheres nor within the keila, m idbrain, and thalami. There is no new abnormal signal abnormality in the periventricular white matter. There is no significant focal signal abnormality evident on diffusion imaging to suggest acute ischem ic event. No significant new findings in the left middle cerebral artery PITUITARY GLAND: No mass nor parasellar abnormality. No obvious abnormality in the cavernous sinuses. FLOW VOIDS: The expected flow void are noted. No evidence of obvious aneurysm nor obvious vascular ma lformation. PARANASAL SINUSES: Fluid levels both maxillary sinuses. Also fluid in the sphenoid sinuses and front al sinuses and ethmoidal air cells. Sparing of the mastoid air cells. ORBITS: No obvious findings. IMPRESSION: No evidence of acute ischemic event. 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
--- NOTE | 2020-11-16 08:25 | ED.GENADUL_ITS ---
Discharge Plan Disposition Patient Disposition: HOME Condition: Stable Discharge Details Clinical Impression: Sinusitis, Atypical migraine, Numbness and tingling of right side of face Primary Care Provider: Medardo Redman ED Provider: Florina Mitchell Home Meds and New Rx's Prescriptions: New amoxicillin-pot clavulanate [Augmentin] 875-125 mg tablet 1 tab PO BID 10 Days Qty: 20 RF: 0 No Action albuterol sulfate 90 mcg/actuation aerosol powdr breath activated 1 inh inhalation Q4H RF: 0 nystatin 100,000 unit/gram powder 1 applic topical BID RF: 0 citalopram 40 mg Tablet 40 mg PO DAILY RF: 0 pantoprazole 40 mg Tablet,Delayed Release (Dr/Ec) 40 mg PO DAILY RF: 0 diphenhydramine HCl [Benadryl] 25 mg Capsule 25 mg PO HS RF: 0 lorazepam 1 mg Tablet 1 mg PO TID PRNRF: 0 lisinopril 40 mg Tablet 40 mg PO DAILY RF: 0 vitamin B complex Capsule 1 cap PO DAILY RF: 0 vitamin B6-vitamin E-magnesium Tablet 1 tab PO DAILY RF: 0 fluticasone propionate 50 mcg/actuation Bond,Suspension 2 spray NS DAILY Qty: 16 RF: 0 topiramate [Topamax] 100 mg Tablet 100 mg PO BID Qty: 60 RF: 0 buspirone 5 mg Tablet 10 mg PO TID Qty: 60 RF: 0 prednisone 20 mg tablet 20 mg PO DAILY Qty: 4 RF: 0 Discharge Instructions Instructions: Sinusitis (ED), Paresthesia (ED) Additional Instructions: Please follow-up with Alix Conroy neurologist. Please call her office to make an appointment. MRI and CT are unchanged and show nothing acute. You do still have some maxillary and frontal and ethmoid sinusitis at this time. Please take the antibiotics twice daily as directed. Follow up with primary care provider in 3-5 days. Return to ED sooner if any worsening or concerns. Increase oral fluids. Please take your lorazepam as previously prescribed that you have at home for anxiety. Try slow deep breathing into your nose and mouth when symptoms occur. Please take Tylenol or Ibuprofen with food every 4-6 hours as needed for pain and swelling. Referrals: Medardo Redman [Primary Care Provider] - Alix Huggins MD [ [facility] STAFF PHYSICIAN] - 1 week (Please call for an appt) Medical Decision Making 34-year-old female with a past medical history of cavernoma, frontal sinusitis, cephalgia, functional neurological symptom disorder with symptoms, anxiety depression, seizure, migraines for presents to the ED via POV by her with chief complaint of numbness and tingling in her face and hand which began last night. Patient reports that she was flailing around per her 's report. She did go back to sleep at that point. Woke up this morning with continued right facial numbness and tingling right-sided weakness and numbness. She is seeing neurology at [facility] and Dr. Conroy. She does take Topamax and Keppra on a daily basis she denies missing any of the medication. At this time work-up ordered including CBC, CMP, TSH, urinalysis, urine pressure urine drug screen Covid swab and MRI brain without contrast. Chest x-ray 1 view. Patient is a PUI due to unvaccinated status and cough. Page out to Dr. Huggins with neurology. 0844: Spoke with Dr. Alix Huggins regarding patient case in detail she is familiar with this patient from her previous admission in September. She does agree with the MRI and she also recommends CT head without. 08 44: 25 mcg of fentanyl IV ordered for patient's complaint of headache. 932: Spoke with Dr. Saleh radiologist who reports that her left cerebral middle artery questionably dense which can indicate a CVA he does recommend an MRA of the brain without contrast. CT shows no hemorrhage stable cavernoma with continued sinusitis. MRI notified and MRI angio brain without contrast ordered. 1113: Patient is now moving all 4 extremities sitting up in bed requesting water. Awaiting diagnostic imaging MRI results. COMPARISON: MR MR BRAIN WO from 06/29/2020 MR MR BRAIN WO from 06/29/2020 IMPRESSION: No evidence of acute ischemic event. 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 MRI unchanged. Discussed results with patient who verbalizes understanding. Instructed to follow-up with neurology Dr. Alix Huggins. I did discuss patient again with Dr. Huggins who was aware of the MRI results. We will make a follow-up appointment with neurology in the near future. Differential diagnosis includes but not limited to atypical migraine, stress reaction, seizure-like activity, CVA. HPI General Mode of arrival: ambulatory (w assistance) . Date/Time Provider Initiated Documentation: 11/16/20 07:42 . Limitations to Documentation: no limitations . Information obtained by: patient, RN notes reviewed and old records reviewed . HPI Narrative: 34-year-old female with a past medical history of cavernoma, frontal sinusitis, cephalgia, functional neurological symptom disorder with symptoms, anxiety depression, seizure, migraines for presents to the ED via POV by her with chief complaint of numbness and tingling in her face and hand which began last night. Patient reports that she was flailing around per her 's report. She did go back to sleep at that point. Woke up this morning with continued right facial numbness and tingling right-sided weakness and numbness. She is seeing neurology at [facility] and Dr. Conroy. She does take Topamax and Keppra on a daily basis she denies missing any of the medication. Related Data Home Medications Medication Instructions Recorded Confirmed citalopram 40 mg PO DAILY 06/29/20 11/16/20 diphenhydramine HCl [Benadryl] 25 mg PO HS 06/29/20 11/16/20 lisinopril 40 mg PO DAILY 06/29/20 11/16/20 lorazepam 1 mg PO TID PRN 06/29/20 11/16/20 pantoprazole 40 mg PO DAILY 06/29/20 11/16/20 vitamin B complex 1 cap PO DAILY 06/29/20 11/16/20 vitamin B6-vitamin E-magnesium 1 tab PO DAILY 06/29/20 11/16/20 fluticasone propionate 2 spray NS DAILY #16 g 10/12/20 11/16/20 topiramate [Topamax] 100 mg PO BID #60 tab 10/12/20 11/16/20 buspirone 10 mg PO TID #60 tab 10/13/20 11/16/20 prednisone 20 mg PO DAILY #4 tab 10/13/20 albuterol sulfate 90 mcg/actuation 1 inh INHALATION Q4H ea 11/16/20 breath activated powder inhaler amoxicillin-pot clavulanate 1 tab PO BID 10 Days #20 tab 11/16/20 [Augmentin] nystatin 100,000 unit/gram topical 1 applic TOPICAL BID 11/16/20 powder Previous Rx's Medication Instructions Recorded fluticasone propionate 2 spray NS DAILY #16 g 10/12/20 topiramate [Topamax] 100 mg PO BID #60 tab 10/12/20 buspirone 10 mg PO TID #60 tab 10/13/20 prednisone 20 mg PO DAILY #4 tab 10/13/20 amoxicillin-pot clavulanate 1 tab PO BID 10 Days #20 tab 11/16/20 [Augmentin] Allergies Allergy/AdvReac Type Severity Reaction Status Date / Time red dye Allergy Unverified 11/16/20 08:03 General Stated Complaint: CVA/TIA ALEX: 2 Review of Systems All systems reviewed & are unremarkable except as noted in HPI and below Constitutional Constitutional: Reports weakness (Right side) Musculoskeletal Musculoskeletal: Reports numbness Neurologic Neurologic: Reports confusion, Reports localized weakness (Right sided weakness and numbness), Reports numbness and Reports weakness (Right side) Psychiatric Psychiatric: Reports confusion [facility] Medical History (Updated 11/16/20 @ 12:01 by Florina Mitchell) Anxiety Cavernoma Chronic headache Functional neurological symptom disorder with attacks or seizures Hypertension Obstructive sleep apnea Strabismic amblyopia, bilateral Surgical History (Updated 11/16/20 @ 13:54 by Roxie Sequeira) H/O dilation and curettage with blood transfusion of 8 units of whole blood. 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 Do you feel safe at home: Yes Do you feel safe in your relationship?: Yes Exam Neuro General: patient oriented x3 and moves all extremities Other: Focal neuro deficits noted to right side of body, strength 1+ slight pronator drift noted upper extremity, 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 on the right Course Vital Signs Vital signs: Vital Signs Temperature 36.7 C 11/16/20 07:39 Pulse 83 11/16/20 07:39 Respiratory Rate 10 L 11/16/20 07:39 Pulse Oximetry 98 11/16/20 07:39 Temperature 36.7 C 11/16/20 07:39 Temperature Source Temporal Artery Scan 11/16/20 07:39 Pulse 83 11/16/20 07:39 Respiratory Rate 15 11/16/20 07:52 Respiratory Effort Non-Labored 11/16/20 08:01 Respiratory Depth Normal 11/16/20 07:52 Respiratory Pattern Normal 11/16/20 07:52 Blood Pressure Position Supine 11/16/20 07:39 Pulse Oximetry 98 11/16/20 07:39 Oxygen Delivery Method Room Air 11/16/20 07:39 Oxygen Flow Rate 0 11/16/20 07:39 Pain Level 9 11/16/20 07:39
[2020-11-16 08:30] LABS: Abs Immature Grans 0.04 10^3/uL (0.0-0.06); Absolute Basophil Count 0.03 10^3/uL (0.0-0.2); Absolute Eosinophil Count 0.09 10^3/uL (0.0-0.7); Absolute Monocyte Count 0.62 10^3/uL (0.1-0.8); Basophils % 0.4; Eosinophils % 1.1; HCT 40.4 % (36.0-46.0); HGB 13.5 g/dL (11.2-15.7); Immature Grans % 0.5; Lymphocytes % 29.8; MCH 29.6 pg (27.0-33.0); MCHC 33.4 % (32.0-36.0); MCV 88.6 fL (80-95); MPV 10.1 fL (8.0-11.0); Monocytes % 7.4; Neutrophils % 60.8; Nucleated RBC 0 %; Platelet Count 324 10^3/uL (130-400); RBC 4.56 10^6/uL (3.93-5.22); RDW 12.6 % (11.7-14.6); RDW-SD 41.2 fL; WBC 8.38 10^3/uL (4.4-10.8)
[2020-11-16 08:38] LABS: Source Nasal/Nares
--- NOTE | 2020-11-16 08:41 | DI.RAD_ITS ---
Exam(s) XR PORTABLE CHEST AP EXAM: XR PORTABLE CHEST AP CLINICAL HISTORY: Cough, R/O PNA, PUI. TECHNIQUE: 2D digital imaging was performed. COMPARISON: No exams were available for comparison FINDINGS: Size normal. The mediastinum is not widened. Lungs are clear. No infiltrates nor obvious pleural effusions. IMPRESSION: No acute pulmonary findings on this single AP portable view of the chest. DATA REPOSITORY: RADIATION DOSE DELIVERED: All CT scans at this facility use at least one of these dose optimization techniques: automated exposure control; mA and/or kV adjustment per patient size (includes targeted e xams where dose is matched to clinical indication); or iterative reconstruction.
[2020-11-16 08:56] LABS: ALT 50 U/L (14-59); AST 23 U/L (15-37); Albumin 4.1 g/dL (3.4-5.0); Alkaline Phosphatase 72 U/L (46-116); BUN 6 mg/dL (7-18); Bilirubin, Total 0.6 mg/dL (0.2-1.0); CREATININE 0.8 mg/dL (0.55-1.02); Calcium 9.3 mg/dL (8.5-10.1); Chloride 102 mmol/L (98-107); Glucose 113 mg/dL (74-106); Magnesium 2.2 mg/dL (1.8-2.4); Potassium 3.9 mmol/L (3.5-5.1); Sodium 138 mmol/L (136-145); TSH (W/Ref FT4) 3.51 uIU/mL (0.36-3.74); Total Protein 8.1 g/dL (6.4-8.2)
[2020-11-16] MEDS: Ondansetron 4 MG/2 ML VIAL IVP (08:58)
[2020-11-16] MEDS: Normal Saline Flush 10 ML SYR IVP (08:58)
[2020-11-16] MEDS: fentaNYL 100 MCG/2 ML VIAL 25 MCG IVP (08:58)
[2020-11-16 09:10] LABS: ETHANOL BLOOD < 3.0 mg/dL (<3)
--- NOTE | 2020-11-16 09:13 | DI.CT_ITS ---
Exam(s) CT HEAD WO EXAM: CT HEAD WO CLINICAL HISTORY: hx cavernoma. TECHNIQUE: Imaging Protocol: Axial computed tomography images with coronal and sagittal reformatted images were created and reviewed COMPARISON: MR MR BRAIN WO from 06/29/[address] HEAD - STROKE PROTOCOL from 10/05/[address] HEAD SINUS WO from 10/11/[address] HEAD SINUS WO from 10/11/2020 FINDINGS: There are no skull fractures. There are fluid levels in both maxillary sinuses consistent with sinu sitis. Also some fluid in the frontal sinuses and sphenoid sinuses and ethmoidal air cells. Mastoid air cells are clear. No evidence of new intracranial hemorrhage. Previously described hyperdense focus in the left fronta l lobe is unchanged and consistent with cavernous hemangioma. This measures 8 x 8 millimeters, uncha nged. It was also evident on MRI scan of 06/29/2020. No additional similar findings elsewhere in th e brain. Ventricles exhibit normal size. No blood within the ventricular system nor within the basa l cisterns. Left middle cerebral artery is hyperdense for distance of almost 4 cm. More so than previous. IMPRESSION: Left frontal cavernous hemangioma again noted, unchanged. Hyperdense left middle cerebral artery, possibly indicating thrombus therein. Pansinusitis Findings discussed with ER provider. RADIATION DOSE DELIVERED: 784.55mGy.cm Total DLP DATA REPOSITORY: All CT scans at this facility are submitted to the National Radiology Data Registry (NRDR) Dose Index Registry (DIR) with the [employer] (A[employer]). RADIATION OPTIMIZATION: All CT scans at this facility use at least one of these dose optimization te chniques: automated exposure control; mA and/or kV adjustment per patient size (includes targeted exa ms where dose is matched to clinical indication); or iterative reconstruction.
[2020-11-16 09:14] LABS: Bilirubin Negative (Negative); Blood Negative (Negative); Clarity Clear (Clear); Glucose Negative (Negative); Ketones Negative (Negative); Leukocyte Esterase Negative (Negative); Nitrite Negative (Negative)
[2020-11-16 09:16] LABS: *AMPHETAMINES SCREEN URINE Negative (Negative); *BARBITURATES SCREEN URINE Negative (Negative); *BENZODIAZEPINES SCREEN URINE Negative (Negative); Cannabinoids THC Negative (Negative); Cocaine Screen,Urine Negative (Negative); METHADONE URINE SCREEN Negative (Negative); OPIATES URINE SCREEN Negative (Negative)
[2020-11-16 09:17] LABS: Tricyclic Antidepressants Negative (Negative)
--- NOTE | 2020-11-16 09:30 | DI.MRI_ITS ---
Exam(s) MR ANGIO BRAIN WO EXAM: MR ANGIO BRAIN WO CLINICAL HISTORY: Right sided weakness, and numbness TECHNIQUE: Performed without IV contrast using tmrj-gk-yputst sequence COMPARISON: MR MR BRAIN WO from 06/29/2020 . Also conventional brain scan earlier today. FINDINGS: ANTERIOR CIRCULATION: both internal carotid arteries are patent in the skull base-carotid canals and are also patent in the cavernous sinuses. Supraclinoid aspects these arteries are patent. Both middle cerebral arteries are patent and demonst rated to be patent out to the sylvian fissure branches. No intraluminal thrombus. No aneurysm. Bot h A1 segments are patent. Both anterior cerebral arteries are patent. There is no evidence of aneur ysm level anterior communicating artery. POSTERIOR CIRCULATION: Both vertebral arteries are patent at the skull base with the left vertebral artery being dominant. Basilar artery ascends slightly left of midline with normal luminal diameter. Distally it gives off patent bilateral superior cerebellar arteries and above this level terminates as patent bilateral pos terior cerebral arteries. There is a posterior communicating artery evident on the right side of the denool-hf-Lxonmb. There is no aneurysm at the tip of the basilar artery nor elsewhere in the [place]. Popcorn lesion cavernoma in the left frontal lobe is again noted. IMPRESSION: 1. Patent intracranial arteries. No evidence of intraluminal thrombus nor significant focal stenosis 2. No aneurysms 3. Left frontal lobe cavernoma again noted. DATA REPOSITORY:
[2020-11-16 09:41] LABS: COVID-19 PCR Negative (Negative)
[2020-11-16] MEDS: LORazepam 2 MG/ML VIAL 0.5 MG IVP (09:45)
[2020-11-16] MEDS: Amoxicillin 875/Clav. 125 TAB PO (11:54)
== END 2020-11-16 12:47 | disposition home or self-care (01) ==
PROVIDERS: Emergency Provider Registered Nurse Emergency; PCP Family Medicine
DX: J01.80 Other acute sinusitis (principal); G43.009 Migraine without aura, not intractable, without status migrainosus; G81.91 Hemiplegia, unspecified affecting right dominant side; R20.2 Paresthesia of skin; R20.0 Anesthesia of skin; D18.02 Hemangioma of intracranial structures; Z20.822 Contact with and (suspected) exposure to COVID-19; Z03.818 Encounter for observation for suspected exposure to other biological agents ruled out
CPT/HCPCS: 36415; 70544; 80053; 80307; 81025; 87635; 93005; 96374; 96375; 99285; 70450; 70551; 71045; 80320; 81003; 83735; 84443; 85025; 93010; J2060; J2405; J3010

== ENCOUNTER 2024-01-13 16:32 | Emergency (ER) | payer MEDICARE, MEDICAID, SELFPAY ==
[2024-01-13] VITALS (25 sets, daily range): BP systolic 113–142; BP diastolic 63–106; PULSE 60–70; RESP 11–21; TEMP 37; O2SAT 96–100
--- NOTE | 2024-01-13 16:15 | RT.EKG_ITS ---
APPROVED REPORT Exam: Resting ECG Reason for Exam: syncope x 2 Patient Location: E HR:64 bpm ECG Measurements Heart Rate 64 AXIS NM 136 P 23 QRSd 95 QRS 25 QT 393 T 25 QTc 404 Conclusion Sinus rhythm...normal P axis, V-rate 60- 99 Low voltage, precordial leads...precordial leads <1.0mV I have reviewed and interpreted ECG and agree with software generated interpretation. There are no significant changes compared to prior EKG performed on 11/16/2020 at 07:45.
--- NOTE | 2024-01-13 16:30 | DI.CT_ITS ---
Exam(s) CT BRAIN NECK CTA EXAM: CT BRAIN NECK CTA CLINICAL HISTORY: syncope, prior brain surgery, garbled speech, MCGARRY. TECHNIQUE: Imaging Protocol: Axial CT angiography was performed with multi-slice acquisition and mu lti-planar and/or 3D reconstructions. CONTRAST MATERIAL: Intravenous: Omnipaque 350 Contrast volume:structured data in ml COMPARISON: MR MR ANGIO BRAIN WO from 11/16/[address] HEAD WO from 01/13/2024 FINDINGS: This patient has a left frontal hyperdense lesion seen on CT scan which is stable and consistent with cavernoma. CTA Neck W: Aortic arch anatomy: The aortic arch anatomy is conventional and there is no significant stenosis at the origin of the great vessels off of the aortic arch. No intimal flap evident. Anterior circulation: Both common carotid arteries ascend with normal luminal diameters. At the level the left carotid bulb-proximal left ICA there is some circumferential plaque noted. Allyson roximately 20 percent stenosis. Left ICA above this level in the neck is nicely patent as well as in the skull base-carotid canal. At the level the right carotid bulb there is mild plaque with less than 10 percent stenosis. Right I CA in the upper neck is patent as well as in the skull base-carotid canal. Posterior circulation: Both vertebral arteries originate in conventional fashion off of the subclavian arteries and there is no obvious stenosis at the origin of the vertebral arteries. The left vertebral artery is dominant, exhibiting a luminal diameter of 4.7 mm within the foramen tra nsverse area. The right vertebral artery exhibits a luminal diameter of 2.8 cm. No evidence of intr aluminal thrombus nor dissection in the vertebral arteries. At the skull base the main contributor t o the formation of the basilar artery is the dominant left vertebral artery. CTA Brain W: Anterior circulation: Both internal carotid arteries are patent in the skull base-carotid canals as well as within the cave rnous sinuses. The supraclinoid aspects of the ICAs are patent. Both A1 segments are patent as are the anterior cer ebral arteries and there is no evidence of aneurysm at the level of the anterior communicating artery . Both middle cerebral arteries are patent with no evidence of significant stenosis nor intraluminal th rombus. There also no aneurysms of these vessels. Posterior circulation: The basilar artery ascends in the midline without significant stenosis.. Distally it gives off paten t bilateral superior cerebellar arteries. Above this level the basilar artery terminates as patent bilateral posterior cerebral arteries. There is a posterior communicating artery on the right side of the zjedou-ai-Npqgsy again noted. There is no evidence of aneurysm at the tip of the basilar artery nor elsewhere in the jyhlsq-yf-Dxab is. CT BRAIN: There is no evidence of intracranial hemorrhage, mass effect, or shift of midline structures. There are no extra-axial fluid collections. Ventricles are not enlarged or shifted. The previously docume nted frontal lobe cavernous hemangiomas is again noted. IMPRESSION: 1. Patent carotid arteries in the neck. Mild atherosclerotic disease as described above. No hemodyn amically significant stenosis. 2. Patent vertebral arteries. Left vertebral artery is again noted be dominant. 3. Patent intracranial arteries. 4. Left frontal lobe cavernous hemangioma/cavernoma again noted. No new lesions seen in the brain. Report called by myself to ER provider 01/13/2024 5:20 p.m. RADIATION DOSE DELIVERED: 1,389.81mGy.cm Total DLP DATA REPOSITORY: All CT scans at this facility are submitted to the National Radiology Data Registry (NRDR) Dose Index Registry (DIR) with the [employer] ([employer]). RADIATION OPTIMIZATION: All CT scans at this facility use at least one of these dose optimization te chniques: automated exposure control; mA and/or kV adjustment per patient size (includes targeted exa ms where dose is matched to clinical indication); or iterative reconstruction.
--- NOTE | 2024-01-13 16:30 | DI.CT_ITS ---
Exam(s) CT HEAD WO EXAM: CT HEAD WO CLINICAL HISTORY: syncope, prior brain surgery, garbled speech, MCGARRY. TECHNIQUE: Imaging Protocol: Axial computed tomography images with coronal and sagittal reformatted images were created and reviewed COMPARISON: CT CT HEAD WO from 11/16/2020 FINDINGS: There are no skull fractures. Some fluid is noted in the left frontal sinus. There is also mucosal t hickening in the sphenoid sinuses. Ethmoidal air cells are clear. Maxillary sinuses are not include d in the field of view. Mastoid air cells are clear. There is a subcutaneous sebaceous cyst over the right parietal region measuring 1.1 x 0.9 cm. There is no evidence of intracranial hemorrhage, mass effect, or shift of midline structures. There are no extra-axial fluid collections. The ventricles are not enlarged or shifted and there is no blo od within the ventricular system nor within the basal cisterns. IMPRESSION: No acute intracranial findings on this noninfused CT scan of the brain. Left frontal sinusitis as described above. Called by myself to ER provider 01/13/2024 4:56 p.m. RADIATION DOSE DELIVERED: 823.41mGy.cm Total DLP DATA REPOSITORY: All CT scans at this facility are submitted to the National Radiology Data Registry (NRDR) Dose Index Registry (DIR) with the [employer] ([employer]). RADIATION OPTIMIZATION: All CT scans at this facility use at least one of these dose optimization te chniques: automated exposure control; mA and/or kV adjustment per patient size (includes targeted exa ms where dose is matched to clinical indication); or iterative reconstruction.
--- NOTE | 2024-01-13 16:39 | W.ED.GENAD ---
Discharge Plan Disposition Patient Disposition: Against Medical Advice Condition: Stable Discharge Details Clinical Impression: Seizure-like activity Primary Care Provider: Medardo Redman ED Provider: Chase Maria Home Meds and New Rx's Prescriptions: Continued benzonatate 100 mg capsule 100 mg PO BID PRN citalopram 40 mg Tablet 40 mg PO DAILY pantoprazole 40 mg Tablet,Delayed Release (Dr/Ec) 40 mg PO DAILY diphenhydramine HCl [Benadryl] 25 mg Capsule 25 mg PO HS lorazepam 1 mg Tablet 1 mg PO TID PRN lisinopril 40 mg Tablet 40 mg PO DAILY vitamin B complex Capsule 1 cap PO DAILY vitamin B6-vitamin E-magnesium Tablet 1 tab PO DAILY fluticasone propionate 50 mcg/actuation [place],Suspension 2 spray NS DAILY Qty: 16 0RF topiramate [Topamax] 100 mg Tablet 100 mg PO BID Qty: 60 0RF buspirone 5 mg Tablet 10 mg PO TID Qty: 60 0RF Nurtec ODT 75 mg tablet,disintegrating 75 mg PO .every other day Patient Comments: DISSOLVE 1 TABLET BY MOUTH EVERY OTHER DAY Discharge Instructions Instructions: Seizures, Adult ED Additional Instructions: You were seen in the emergency department for your brief episodes of syncope today, you likely had some seizure activity, your stroke workup was negative there is no acute change in your brain lesion, you spoke with teleneurology who recommended to go back on [facility], they also recommended you be admitted for an MRI with and without contrast of the brain and EEG study. You stated that he wished to follow-up with your own neurologist for these and that he would just like your headache to be treated which we did. We are having you sign out AGAINST MEDICAL ADVICE due to the possibility of recurrent seizure and status epilepticus and even coma and but you are welcome to return immediately for any worsening symptoms of stroke or seizure or loss of consciousness. Referrals: Medardo Redman [Primary Care Provider] - HPI General Date/Time Provider Initiated Documentation: 01/13/24 16:36. HPI Narrative: 38 year-old female presents to ED today by EMS with a chief complaint of two episodes of possible syncope vs seizure, but having garbled speech upon regaining consciousness concern for stroke- with history of brain lesion or bleed operated on years ago at [facility] per . Patient endorses chronic neuro deficits with coordination, has had headaches on L scientologist but this one is new and on the R side, states everything went black, had an episode like this one year ago. Quality described as headache, speech difficulty, per EMS she had some teeth chattering but no tonic-clonic activity on scene, LOC lasted for about 60 seconds, no radiation to chest pain, palpitations, shortness of breath, fever, neck stiffness, denies any known trauma from fall. Severity is described as severe. Palliating factors include nothing specific attempted. Provoking factors include nothing specific. Events leading up to the incident/Associated Symptoms: patient does take topiramate. Patient not anticoagulated. Related Data Home Medications ?Medication ?Instructions ?Recorded ?Confirmed citalopram 40 mg tablet 40 mg PO DAILY 06/29/20 01/13/24 diphenhydramine HCl 25 mg capsule 25 mg PO HS 06/29/20 01/13/24 (Benadryl) lisinopril 40 mg tablet 40 mg PO DAILY 06/29/20 01/13/24 lorazepam 1 mg tablet 1 mg PO TID PRN 06/29/20 01/13/24 pantoprazole 40 mg tablet,delayed 40 mg PO DAILY 06/29/20 01/13/24 release vitamin B complex 1 cap PO DAILY 06/29/20 01/13/24 vitamin B6-vitamin E-magnesium 1 tab PO DAILY 06/29/20 01/13/24 tablet fluticasone propionate 50 2 spray NS DAILY #16 grams 10/12/20 01/13/24 mcg/actuation nasal spray,suspension topiramate 100 mg tablet (Topamax) 100 mg PO BID #60 tabs 10/12/20 01/13/24 buspirone 5 mg tablet 10 mg (2 x 5 mg) PO TID #60 tabs 10/13/20 01/13/24 benzonatate 100 mg capsule 100 mg PO BID PRN 11/21/20 01/13/24 rimegepant 75 mg disintegrating 75 mg PO .every other day 01/13/24 01/13/24 tablet (Nurtec ODT) Previous Rx's ?Medication ?Instructions ?Recorded fluticasone propionate 50 2 spray NS DAILY #16 grams 10/12/20 mcg/actuation nasal spray,suspension topiramate 100 mg tablet (Topamax) 100 mg PO BID #60 tabs 10/12/20 buspirone 5 mg tablet 10 mg (2 x 5 mg) PO TID #60 tabs 10/13/20 Allergies Allergy/AdvReac Type Severity Reaction Status Date / Time red dye Allergy Unverified 11/21/20 12:24 General Stated Complaint: CVA/TIA ALEX: 2 Review of Systems All systems reviewed & are unremarkable except as noted in HPI and below Exam Narrative Exam Narrative: GENERAL APPEARANCE: Well-nourished, non-toxic, awake and alert, atraumatic, no acute distress. SKIN: Warm, pink, dry, intact, without rashes/lesions/ulcerations. HEAD: Normocephalic, atraumatic, normal hair distribution for gender/age. EYES: Normal conjunctiva, no exudates on lids/lashes. EOMs intact without nystagmus ENT: Nares patent, no circumoral cyanosis, no facial swelling NECK: Supple, trachea midline, painless cervical ROM. LUNGS/CHEST: Lungs CTA bilaterally-no rhonchi/rales/wheezes diffusely, non-labored respirations, normal A/P diameter, symmetrical expansion, no chest wall deformity HEART (CV/PV): Regular rate and rhythm without murmur, no peripheral edema, no JVD. ABDOMEN: Soft, non-distended, no guarding, no tenderness. MSK: Normal ROM, no swelling/deformity to bilateral UEs or LEs, moving all extremities without weakness, no cyanosis, spine midline without tenderness, normal curvature. NEURO: Mental Status AAOx4 - alert to person, place, time, events No facial droop, no forehead involvement, patient has baseline difficulty touching her nose, this is not abnormal for her Motor: No focal weakness - strength 5/5 in bilateral LEs, 4+/5 in bilateral UEs, proximal and distal, symmetric. Sensory: sensation intact to light touch globally. Gait normal: patient ambulated without ataxia into ED room. PSYCH: euthymic, cooperative, pleasant, garbled speech and word finding difficulties which did resolve throughout the visit Course Vital Signs Vital signs: Vital Signs Temperature 37.0 C 01/13/24 16:33 Pulse 70 01/13/24 16:33 Respiratory Rate 18 01/13/24 16:33 Blood Pressure 139/92 H 01/13/24 16:33 Pulse Oximetry 97 01/13/24 16:33 Temperature 37.0 C 01/13/24 16:33 Temperature Source Oral 01/13/24 16:33 Pulse 70 01/13/24 16:33 Respiratory Rate 18 01/13/24 16:33 Blood Pressure 139/92 H 01/13/24 16:33 Blood Pressure Position Sitting 01/13/24 16:33 Pulse Oximetry 97 01/13/24 16:33 Oxygen Delivery Method Room Air 01/13/24 16:33 Oxygen Flow Rate 0 01/13/24 16:33 Medical Decision Making This dictation utilizes [id number] dictation software and may contain unedited grammatical errors. 38 year-old female presents to ED today by EMS with a chief complaint of two episodes of possible syncope vs seizure, but having garbled speech upon regaining consciousness concern for stroke- with history of brain lesion or bleed operated on years ago at [facility] per . Patient endorses chronic neuro deficits with coordination, has had headaches on L scientologist but this one is new and on the R side, states everything went black, had an episode like this one year ago. Quality described as headache, speech difficulty, per EMS she had some teeth chattering but no tonic-clonic activity on scene, LOC lasted for about 60 seconds, no radiation to chest pain, palpitations, shortness of breath, fever, neck stiffness, denies any known trauma from fall. Severity is described as severe. Palliating factors include nothing specific attempted. Provoking factors include nothing specific. Events leading up to the incident/Associated Symptoms: patient does take topiramate. Patients' medical history: [ ]. Family and social history: [ ]. Pertinent exam findings / vital signs include garbled speech and word finding issues, no facial droop or paralysis, EOMs intact without nystagmus, has coordination difficulties at baseline, able to SLR both legs 5/5, arms 4+ out of 5 but symmetric, benign cardiopulmonary exam, benign abdomen. Differential / pathologies of concern include seizure activity, CVA, intracranial hemorrhage, syncope, ACS. Diagnostic studies of: -CT head without, CTA brain and neck with, CBC, CMP, PT/PTT, serial troponins, magnesium, TSH, EKG. -Laboratory studies benign with negative serial troponins, do not suspect ACS -CTs are all completely negative for any acute abnormality, shows chronic left frontal cavernous abnormality that is unchanged -EKG shows no signs of ischemia Interventions of: -1g IV APAP, 15mg IV toradol, 25mg PO sumatriptan, 6mg IV dexamethasone for migraine, TeleNeuro Consult. 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 The patient has been been on Keppra prior and is currently only on Topamax. Teleneuro recommends admission for MRI of the brain with and without and EEG study, they recommend she start on Keppra again, the patient adamantly refused these interventions and did sign out AMA. I stressed strict return criteria for any further seizure-like activities or neurologic abnormalities, I treated her migraine with some relief of the pain, the patient will follow-up with her own neurologist, she acknowledged the risk of further seizure episodes and possibly coma and with AGAINST MEDICAL ADVICE discharge, patient was of sound mind at this time was making full sentences without garbled speech which resolved throughout the visit Findings not consistent with status epilepticus, stroke or intracranial hemorrhage, ACS. Disposition of Seizure-Like Activity. Patient verbalized understanding of the plan and return to ED criteria and engaged in shared decision making. Medical Records Medical records reviewed: Yes I reviewed the patient's medical records. 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 TECHNIQUE: Imaging Protocol: Axial computed tomography images with coronal and sagittal reformatted images were created and reviewed COMPARISON: CT CT HEAD WO from 11/16/2020 FINDINGS: There are no skull fractures. Some fluid is noted in the left frontal sinus. There is also mucosal thickening in the sphenoid sinuses. Ethmoidal air cells are clear. Maxillary sinuses are not included in the field of view. Mastoid air cells are clear. There is a subcutaneous sebaceous cyst over the right parietal region measuring 1.1 x 0.9 cm. There is no evidence of intracranial hemorrhage, mass effect, or shift of midline structures. There are no extra-axial fluid collections. The ventricles are not enlarged or shifted and there is no blood within the ventricular system nor within the basal cisterns. IMPRESSION: No acute intracranial findings on this noninfused CT scan of the brain. Left frontal sinusitis as described above. Radiologic Study #2: Attestation: I personally reviewed and interpreted this imaging study as follows: Imaging: CT Scan Radiologist's impression: EXAM: CT BRAIN NECK CTA CLINICAL HISTORY: syncope, prior brain surgery, garbled speech, MCGARRY. TECHNIQUE: Imaging Protocol: Axial CT angiography was performed with multi-slice acquisition and multi-planar and/or 3D reconstructions. CONTRAST MATERIAL: Intravenous: Omnipaque 350 Contrast volume:structured data in ml COMPARISON: MR MR ANGIO BRAIN WO from 11/16/[address] HEAD WO from 01/13/2024 FINDINGS: This patient has a left frontal hyperdense lesion seen on CT scan which is stable and consistent with cavernoma. CTA Neck W: Aortic arch anatomy: The aortic arch anatomy is conventional and there is no significant stenosis at the origin of the great vessels off of the aortic arch. No intimal flap evident. Anterior circulation: Both common carotid arteries ascend with normal luminal diameters. At the level the left carotid bulb-proximal left ICA there is some circumferential plaque noted. Approximately 20 percent stenosis. Left ICA above this level in the neck is nicely patent as well as in the skull base-carotid canal. At the level the right carotid bulb there is mild plaque with less than 10 percent stenosis. Right ICA in the upper neck is patent as well as in the skull base-carotid canal. Posterior circulation: Both vertebral arteries originate in conventional fashion off of the subclavian arteries and there is no obvious stenosis at the origin of the vertebral arteries. The left vertebral artery is dominant, exhibiting a luminal diameter of 4.7 mm within the foramen transverse area. The right vertebral artery exhibits a luminal diameter of 2.8 cm. No evidence of intraluminal thrombus nor dissection in the vertebral arteries. At the skull base the main contributor to the formation of the basilar artery is the dominant left vertebral artery. CTA Brain W: Anterior circulation: Both internal carotid arteries are patent in the skull base-carotid canals as well as within the cavernous sinuses. The supraclinoid aspects of the ICAs are patent. Both A1 segments are patent as are the anterior cerebral arteries and there is no evidence of aneurysm at the level of the anterior communicating artery. Both middle cerebral arteries are patent with no evidence of significant stenosis nor intraluminal thrombus. There also no aneurysms of these vessels. Posterior circulation: The basilar artery ascends in the midline without significant stenosis.. Distally it gives off patent bilateral superior cerebellar arteries. Above this level the basilar artery terminates as patent bilateral posterior cerebral arteries. There is a posterior communicating artery on the right side of the [id number] again noted. There is no evidence of aneurysm at the tip of the basilar artery nor elsewhere in the [id number]. CT BRAIN: There is no evidence of intracranial hemorrhage, mass effect, or shift of midline structures. There are no extra-axial fluid collections. Ventricles are not enlarged or shifted. The previously documented frontal lobe cavernous hemangiomas is again noted. IMPRESSION: 1. Patent carotid arteries in the neck. Mild atherosclerotic disease as described above. No hemodynamically significant stenosis. 2. Patent vertebral arteries. Left vertebral artery is again noted be dominant. 3. Patent intracranial arteries. 4. Left frontal lobe cavernous hemangioma/cavernoma again noted. No new lesions seen in the brain. Lab Data Lab results reviewed: Yes I reviewed the patient's lab results. Labs: Laboratory Tests Range/Units 01/13/24 01/13/24 17:05 18:26 WBC (4.4-10.8) 10^3/uL 7.86 RBC (3.93-5.22) 10^6/uL 3.97 Hgb (11.2-15.7) g/dL 11.8 Hct (36.0-46.0) % 36.5 MCV (80-95) fL 92 MCH (27.0-33.0) pg 29.7 MCHC (32.0-36.0) % 32.3 RDW (11.7-14.6) % 13.0 Plt Count (130-400) 10^3/uL 262 MPV (8.0-11.0) fL 9.5 Immature Gran % % 0.3 Neutrophils % % 53.7 Lymphocytes % % 35.5 Monocytes % % 7.3 Eosinophils % % 2.8 Basophils % % 0.4 Nucleated RBC % (0.0-0.3) % 0.0 Absolute Neutrophils (1.2-6.7) 10^3/uL 4.23 Absolute Lymphocytes (1.2-3.4) 10^3/uL 2.79 Absolute Monocytes (0.1-0.8) 10^3/uL 0.57 Absolute Eosinophils (0.0-0.7) 10^3/uL 0.22 Absolute Basophils (0.0-0.2) 10^3/uL 0.03 PT (9.1-11.1) sec 9.9 INR (0.9-1.1) 1.0 APTT (23.6-32.8) sec 27.1 Sodium (136-145) mmol/L 139 Potassium (3.5-5.1) mmol/L 3.9 Chloride (98-107) mmol/L 107 Carbon Dioxide (21.0-32.0) mmol/L 24.8 Anion Gap (3-11) mmol/L 7.2 BUN (7-18) mg/dL 9 Creatinine (0.55-1.02) mg/dL 0.8 Est GFR (CKD-EPI 2020) (mL/min/1.73m2) 95.46 Glucose (74-106) mg/dL 88 Calcium (8.5-10.1) mg/dL 8.7 Magnesium (1.8-2.4) mg/dL 2.0 Total Bilirubin (0.2-1.0) mg/dL 0.27 AST (15-37) U/L 14 L ALT (14-59) U/L 28 Alkaline Phosphatase (46-116) U/L 57 Troponin I (<or=51) ng/L < 4 5 Total Protein (6.4-8.2) g/dL 6.9 Albumin (3.4-5.0) g/dL 3.5 TSH (0.36-3.74) uIU/mL 3.60 Quality:SDOH Health Related Social Needs: No Data to Display PFSH All Active Problems (Updated 01/13/24 @ 18:22 by YUE Marlow) Seizure-like activity (Acute) Atypical migraine (Acute) Numbness and tingling of right side of face (Acute) Migraines (Chronic) Glaucoma (Chronic) Obesity (Chronic) Accelerated hypertension (Acute) Seizure (Acute) Anxiety (Acute) Depression (Chronic) Functional neurological symptom disorder with attacks or seizures (Acute) Chronic headache (Acute) Cerebral cavernoma (Acute) Functional neurological symptom disorder with mixed symptoms (Acute) Sinusitis (Acute) Sinusitis (Acute) Headache (Acute) Cavernoma (Acute) Acute frontal sinusitis (Acute) Cephalgia (Acute) Medical History (Updated 01/13/24 @ 18:22 by YUE Marlow) Strabismic amblyopia, bilateral Hypertension Obstructive sleep apnea Surgical History (Updated 11/16/20 @ 13:54 by Roxie Seuqeira) H/O tubal ligation H/O dilation and curettage with blood transfusion of 8 units of whole blood. 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
[2024-01-13] MEDS: Omnipaque 350 MG/ML 100 ML BTL 70 ML IJ (16:57)
[2024-01-13 17:18] LABS: Abs Immature Grans 0.02 10^3/uL (0.0-0.06); Absolute Basophil Count 0.03 10^3/uL (0.0-0.2); Absolute Eosinophil Count 0.22 10^3/uL (0.0-0.7); Absolute Lymphocyte Count 2.79 10^3/uL (1.2-3.4); Absolute Monocyte Count 0.57 10^3/uL (0.1-0.8); Absolute Neutrophil Count 4.23 10^3/uL (1.2-6.7); Basophils % 0.4 %; Eosinophils % 2.8 %; HCT 36.5 % (36.0-46.0); HGB 11.8 g/dL (11.2-15.7); Immature Grans % 0.3 %; Lymphocytes % 35.5 %; MCH 29.7 pg (27.0-33.0); MCHC 32.3 % (32.0-36.0); MCV 92 fL (80-95); MPV 9.5 fL (8.0-11.0); Monocytes % 7.3 %; Neutrophils % 53.7 %; Platelet Count 262 10^3/uL (130-400); RBC 3.97 10^6/uL (3.93-5.22); RDW-SD 43.7 fL; WBC 7.86 10^3/uL (4.4-10.8)
[2024-01-13 17:30] LABS: PTT Activated 27.1 sec (23.6-32.8); Prothrombin Time 9.9 sec (9.1-11.1)
[2024-01-13 17:43] LABS: ALT 28 U/L (14-59); AST 14 U/L (15-37); Albumin 3.5 g/dL (3.4-5.0); Alkaline Phosphatase 57 U/L (46-116); Anion Gap 7.2 mmol/L (3-11); BUN 9 mg/dL (7-18); Bilirubin, Total 0.27 mg/dL (0.2-1.0); CO2 24.8 mmol/L (21.0-32.0); CREATININE 0.8 mg/dL (0.55-1.02); Calcium 8.7 mg/dL (8.5-10.1); Chloride 107 mmol/L (98-107); Estimated GFR 95.46 (mL/min/1.73m2); Glucose 88 mg/dL (74-106); Potassium 3.9 mmol/L (3.5-5.1); Sodium 139 mmol/L (136-145); Total Protein 6.9 g/dL (6.4-8.2)
[2024-01-13 17:47] LABS: Troponin I < 4 ng/L (<or=51)
[2024-01-13] MEDS: Acetaminophen 500 MG TAB 1000 MG PO (18:28)
[2024-01-13] MEDS: SUMAtriptan 25 MG TAB PO (18:28)
[2024-01-13] MEDS: Ketorolac 15 MG/ML VIAL IVP (18:28)
[2024-01-13] MEDS: Dexamethasone 4 MG/ML VIAL 6 MG IVP (18:29)
--- OUTSIDE RECORDS SUMMARY | 2024-01-13 18:53 | XMS_ITS | Encounter Summary ---
Author Organization [facility] [place] [address] Care Team Providers Care Supervisor [employer] Name Role Phone Medardo Redman DO Primary Care Provider [phone]- [phone] Reason for Referral * Diagnostic Test (Routine) - Closed Specialty Diagnoses / Procedures Referred By Contac t Referred To Contact Radiology Diagnoses Cavernous malformation Procedures MRI Brain wo Contrast Tiffanie Quiles MD [facility] [place] [address] [place] [address] Referral ID Status Reason Start Date Expiration Date V isits Requested Visits Authorized [id number] Closed Specialty Service Requested 07/04/2022 01/05/2024 1 1 Reason for Visit * Diagnostic Test (Routine) - Closed Specialty Diagnoses / Procedures Referred By Contac t Referred To Contact Radiology Diagnoses Cavernous malformation Procedures MRI Brain wo Contrast Tiffanie Quiles MD [facility] [place] [address] [place] [address] Referral ID Status Reason Start Date Expiration Date V isits Requested Visits Authorized [id number] Closed Specialty Service Requested 07/04/2022 01/05/2024 1 1 Encounter Details Date Type Department Care Team (Latest Contact Info) Description 06/19/2023 12:44 PM EDT - 06/19/2023 11:59 PM EDT Hospital Encounter MRI at [facility] [address] Tiffanie Quiles MD [facility] [place] [address] Cavernous malformation Discharge Disposition: Home Social History Tobacco Use Types Packs/Day Years Used Date Smoking Tobacco: Former Cigarettes 0.3 2 0 10/18/2015 - 10/17/2017 Smokeless Tobacco: Never Alcohol Use Standard Drinks/Week Comments Not Currently 0 (1 standard drink = 0.6 oz pur e alcohol) [facility] Inpatient Questions Answer Date Recorded Does Anyone Try to Keep You From Having Contact with Others or Doing Things Outside Your Home? no 09/25/2022 Feels Threatened by Someone no 09/2022 Feels Unsafe at Home or Work/School no 09/25/2022 Physical Signs of Abuse Present no 09/25/2022 Sex and Gender Information Value Date Recorded Sex Assigned at Not on file Gender Identity Not on file Sexual Orientation Not on file documented as of this encounter Medications at Time of Discharge Medication Sig Dispensed Refills Start Date End Date cholecalciferol, Vitamin D3, 50 mcg (2,000 unit) Capsule Take by mouth. montelukast (Singulair) 10 mg tablet Take 10 mg by mouth nightly. pantoprazole EC (Protonix) [address] tablet Take 40 mg by mouth daily. FOR 90 DAYS 09/02/2022 SUMAtriptan (Imitrex) 100 mg tablet TAKE ONE TABLET BY MOUTH EVERY 24 HOURS NEEDED FOR HEADACHE,MAY REPEAT AFTER 2 HOURS (USE DIRECTED) FOR 30 DAYS 10 tablet 5 09/19/2022 busPIRone (Buspar) 5 mg Tablet Take 10 mg by mouth 3 times daily. topiramate (Topamax) 100 mg Tablet Take 100 mg by mouth 2 times daily. albuteroL 90 mcg/actuation HFA Aerosol Inhaler Inhale 1 puff into the lungs every 4 hours as needed for Wheezing. Use with spacer fluticasone propionate (Flonase) 50 mcg/actuation [place], Suspension 2 sprays by Each Nare route 2 times daily. LORazepam (Ativan) 1 mg Tablet Take by mouth as needed. 06/29/2020 lisinopriL (Prinivil;Zestril) 40 mg TabletIndications:Essentia l hypertension Take 1 tablet by mouth daily. 90 tablet 3 01/21/2020 citalopram (CeleXA) 40 mg Tablet TAKE 1 TABLET BY MOUTH ONCE DAILY 12/02/2019 b complex vitamins Tablet Take 1 tablet by mouth daily. acetaminophen (Tylenol) 500 mg Tablet Take 1,000 mg by mouth every 6 hours as needed for Pain. rimegepant (Nurtec ODT) 75 mg disintegrating tablet Take 1 tablet by mouth every other day for 180 days. 15 tablet 5 05/24/2023 12/05/2023 documented as of this encounter Progress Notes * Kate Sykes, RN - 06/19/2023 1:20 PM EDT MRI PRE-SEDATION ASSESSMENT NOTE NAME: Kimberli Bales AGE: 37 y.o. : 1985 [address] [place] [address] Female [phone] (home) Telephone Information: Medardo Redman DO No primary care provider on file. Allergies Allergen Reactions Oxycodone-Acetaminophen Shortness Of Breath Red Dye Other (See Comments) Stops heart Date/Time of call: June 13, 2023/1:47 PM/ SCHEDULED SCAN: MRI BRAIN WO CONTRAST [[id number]] (45 mins, head first, supine) HEIGHT: 5'6 WEIGHT: 284 lbs Have you had a PREVIOUS MRI SCAN? Yes Are you claustrophobic or anxious in the scanner? Yes CAN YOU LAY FLAT? Yes Do you have trouble breathing when lying flat? No DO YOU HAVE ANY INVOLUNTARY MOVEMENTS? No DO YOU TAKE PAIN MEDICATION ON A DAILY BASIS? Yes/No (explain) PLAN: Valium 5 mg PO x 2 ordered You must have a concrete mixer truck driver present when you check in. This patient has been informed that they require a concrete mixer truck driver to drive them home after this procedure. In the absence of a concrete mixer truck driver, IR will not be able tosedate for your scan. Pt verbalized understanding of these instructions during the pre-procedure education via phone. Yes X [place] of concrete mixer truck driver: Phone number: PRIOR SCAN DATE/S SEDATION TYPE SUCCESSFUL Multiple MRIs No corresponding nursing notes 06/22/21 MRI brain wwo Ativan 1 mg PO x 2 yes 06/22/22 MRI Brain wwo Valium 5mg PO X 2 yes 09/24/22 MRI Brain wwo Valium 5 mg PO x2 Yes 06/19/23 MRI Brain wo Valium 5 mg PO x 2 Yes Revised 08/14/2022 documented in this encounter Plan of Treatment Not on file documented as of this encounter Goals Goal Patient Goal Type Associated Problems Recent Progress Patient-Stated? Author decrease artificial sweeteners Lifestyle No Velia Gibson MD Note: To 2 servings per day (crystal lite or propel) tracking food intake Lifestyle No Velia Gibson MD Note: Already doing this (09/17/2019). Don't add in extra calories for calories you burn with exercise. documented as of this encounter Procedures Procedure Name Priority Date/Time Associated Diagnosis Comments MRI BRAIN WO CONTRAST Routine 06/19/2023 3:47 PM EDT Cavernous malformation documented in this encounter Results * MRI Brain wo Contrast (06/19/2023 3:47 PM EDT) depict WORKSTATION ID [id number] RAD Anatomical Region Laterality Modality Head Magnetic Resonan ce Impressions 06/20/2023 3:47 PM EDT Similar appearance of small left frontal cavernous malformation. No surrounding edema or definitive interval enlargement. Thank you for letting us participate in the care of this patient. ??If you are a health care provider and have any questions regarding this report, please contact the number below. ??For patients who have questions please contact the health youth care professional that requested your imaging first. ? Electronically signed by: Alonzo Arreguin DO, [facility] ??([phone]), at 06/20/2023 3:47 PM Narrative 06/20/2023 3:47 PM EDT EXAMINATION: MRI BRAIN WO CONTRAST CLINICAL HISTORY: f/u L frontal cavernoma Q28.3, Other malformations of cerebral vessels TECHNIQUE: MRI of the brain performed without intravenous contrast administration. COMPARISON: Brain MRI of 09/24/2022, 06/22/2022 and 06/22/2021 FINDINGS: There is no acute or subacute ischemic infarct, acute intracranial hemorrhage or mass effect. Small lesion compatible with cavernous malformation in the left frontal lobe again noted, without definitive interval increase in size. There is no surrounding edema. The adjacent draining vein is again noted. There are no additional or interval lesions identified. Ventricles are normal in size. There are no extra-axial collections. Stable appearance of small surgical tract through the left frontal bone. There is mild mucosal thickening of the right maxillary, improved compared with most recent prior. Similar right sphenoid sinus mucosal thickening. No extracranial soft tissue pathology. Procedure Note Alonzo Arreguin DO - 06/20/2023 EXAMINATION: MRI BRAIN WO CONTRAST CLINICAL HISTORY: f/u L frontal cavernoma Q28.3, Other malformations of cerebral vessels TECHNIQUE: MRI of the brain performed without intravenous contrast administration. COMPARISON: Brain MRI of 09/24/2022, 06/22/2022 and 06/22/2021 FINDINGS: There is no acute or subacute ischemic infarct, acute intracranialhemorrhage or mass effect. Small lesion compatible with cavernous malformation in the left frontallobe again noted, without definitive interval increase in size. There is no surrounding edema. The adjacent draining vein is again noted. There are no additional or interval lesions identified. Ventricles are normal in size. There are no extra-axial collections. Stable appearance of small surgical tract through the left frontal bone. There is mild mucosal thickening of the right maxillary, improved comparedwith most recent prior. Similar right sphenoid sinus mucosal thickening. No extracranial soft tissue pathology. IMPRESSION Similar appearance of small left frontal cavernous malformation. Nosurrounding edema or definitive interval enlargement. Thank you for letting us participate in the care of this patient. If youare a health care provider and have any questions regarding this report,please contact the number below. For patients who have questions please contactthe health youth care professional that requested your imaging first. 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 documented in this encounter Administered Medications Inactive Administered Medications - up to 3 most recent administrations Medication Order MAR Action Action Date Dose Rate Site diazePAM (Valium) tablet 5 mg 5 mg, Oral, EVERY 30 MIN PRN, 2 doses, Starting on Sat06/19/23 at 1319, Until Sat06/19/23 at 1357, Anxiety, Minimal Sedation per Department of Radiology Adult Minimal Sedation Guidelines: Give 50 minutes prior to scan., Angio/IR (Day of Procedure), Routine Given 06/19/2023 1:57 PM EDT 5 mg Given 06/19/2023 1:23 PM EDT 5 mg documented in this encounter Care Teams Supervisor [employer] Relationship Specialty Start Date End Date Medardo Redman DO [address] [place] [address] PCP - General Family Medicine 06/22/21 documented as of this encounter
--- OUTSIDE RECORDS SUMMARY | 2024-01-13 18:53 | XMS_ITS | Encounter Summary ---
Author Organization [facility] Address [facility] [place] [address] Care Team Providers Care Superintendent [employer] Name Role Phone FerozMedardo long Primary Care Provider +1- [phone] Encounter Details Date Type Department Care Team (Late st Contact Info) Description 07/04/2023 12:00 PM EDT [place] [id number] Tiffanie Quiles MD [facility] [place] [address] Cavernous malformation Social History Tobacco Use Types Packs/Day Years Used Date Smoking Tobacco: Former Cigarettes 0.3 2 0 10/18/2015 - 10/17/2017 Smokeless Tobacco: Never Alcohol Use Standard Drinks/Week Comments Not Currently 0 (1 standard drink = 0.6 oz pur e alcohol) IPV Inpatient Questions Answer Date Recorded Does Anyone [...] on file documented as of this encounter Last Filed Vital Signs Vital Sign Reading Time Taken Comments Blood Pressure 122/81 07/04/2023 11:44 AM EDT Pulse 71 07/04/2023 11:44 AM EDT Temperature 36 ??C (96.8 ??F) 07/04/2023 11: 44 AM EDT Respiratory Rate - - Oxygen Saturation 95% 07/04/2023 11: 44 AM EDT Inhaled Oxygen Concentration - - Weight 130.5 kg (287 lb 12.8 oz) 2023 11:44 AM EDT Height 167.6 cm (5' 6) 07/04/2023 11:4 4 AM EDT Body Mass Index 46.45 07/04/2023 11:44 AM EDT documented in this encounter Progress Notes * Tiffanie Quiles MD - 07/04/2023 12:00 PM EDT Cerebrovascular & Neurosurgery Clinic Note Patient Kimberli Bales 1985 DATE OF VISIT: 07/04/2023 REASON FOR VISIT: Problem List Items Addressed This Visit None RELEVANT NARRATIVE: Kimberli Bales is a 37 y.o. right handed woman with history of non- electrographic seizures and L frontal cavernoma s/p laser ablation 01/09/[address] Mackenzie. Her seizure events improved after the ablation. She has not had a recurrent hemorrhage event. MRI brain 06/19/2023 shows no significant interval change. PAST MEDICAL HISTORY: Past Medical History: Diagnosis Date Abnormal cervical Papanicolaou smear 09/09/2018 Allergy Anxiety Diverticulosis of colon 09/09/2018 Dysplasia of cervix 07/17/2006 Dysuria 07/17/2006 episodes of dysuria and frequency but all negative cultures. If sx develop check Micro, FLAG DECORATOR or stone. Environmental and seasonal allergies Epilepsy 01/09/2021 Glaucoma 12/21/2019 Hypertension 06/30/2019 Post-op bleeding 02/08/2012 Following Pyelonephritis 09/09/2018 Strabismus UTI (urinary tract infection) PAST SURGICAL HISTORY: Past Surgical History: Procedure Laterality Date SECTION N/A 03/25/2010 SECTION N/A 04/24/2011 APD; Sherrell Schmidt MD DILATION AND CURETTAGE OF UTERUS N/A 09/16/2015 Menorrhagia; APD; Sherrell Schmidt MD HERNIA REPAIR PRO BRAIN AVM SURG, SUPRATENT, SIMPLE Left 01/09/2021 @CRANI-SURG. FOR AVM,SUPRATENTORIAL, SIMPLE (WRVU 32.55) performed by Chase Mackenzie MD at [facility] PRO PLACEMENT ADJUSTABLE SUTURE STRABISMUS Right 12/31/2013 STRABISMUS SURGERY, PLACEMENT OF ADJUSTABLE SUTURES IN CONJUNCTION W/ ANOTHER SURGERY performed by Genevieve Walsh MD at [facility] PRO STEREOTACTIC CPTR ASSTD PX CRANIAL, INTRADURAL Left 01/09/2021 STEREOTACTIC COMPUTER-ASSTD NAVIGATIONAL CRANIAL INTRADURAL FOR LASER ABLATION performed by Chase Mackenzie MD at [facility] PRO STRABISMUS RECESSION/RESECTION 1 HORIZONTAL MUSCLE Bilateral 12/31/2013 STRABISMUS SURGERY, ONE HORIZONTAL MUSCLE, JEFF performed by Genevieve Walsh MD at [facility] PRO STRABISMUS RECESSION/RESECTION 2 HORIZONTAL MUSCLES Right 02/01/2014 STRABISMUS SURGERY, TWO HORIZONTAL MUSCLES performed by Genevieve Walsh MD at [facility] PRO STRABISMUS SCARRING EO MUSC/RESTRICTIVE MYOPATHY Right 02/01/2014 STRABISMUS SURGERY WITH SCARRING OF EXTRAOCULAR MUSCLES IN CONJUNCTION W/ ANOTHER SURGERY performedby Genevieve Walsh MD at [facility] PRO UNLISTED PROCEDURE NERVOUS SYSTEM N/A 01/09/2021 STEREOTACTIC LASER ABLATION performed by Chase Mackenzie MD at [facility] SINUS SURGERY STRABISMUS SURGERY TUBAL LIGATION Bilateral 04/24/2011 APD; Sherrell Schmidt MD WISDOM TOOTH EXTRACTION N/A 07/01/2002 [facility]; AILEEN RIVERA, LAUREN OBJECTIVE: BP 122/81 (BP Location (NBP): Right arm, Patient Position: Sitting, BP Cuff Sizes: Adult (25-34 cm)) Pulse 71 Temp 36 ??C (96.8 ??F) (Temporal) Ht 167.6 cm (5' 6) Wt 130.5 kg (287 lb 12.8 oz) LMP 01/18/2014 Comment: tubal ligation SpO2 95% BMI 46.45 kg/m?? RELEVANT FINDINGS ON NEUROLOGIC EXAMINATION: No acute distress Awake, Alert, Interactive No dysarthria or aphasia, no evidence of word-finding difficulties Pupils equal and reactive Extraocular movements intact No drift Moving all extremities with full strength Gait: Unremarkable CURRENT MEDICATIONS: LORazepam, SUMAtriptan, acetaminophen, albuteroL, b complex vitamins, busPIRone, cholecalciferol (Vitamin D3), citalopram, fluticasone propionate, lisinopriL, montelukast, pantoprazole EC, rimegepant, and topiramate IMAGING & STUDIES PERSONALLY INTERPRETED: MRI brain 06/19/2023 compared with 09/24/2022 MRI. No significant change in the L frontal cavernoma ASSESSMENT & PLAN: Problem List Items Addressed This Visit None Seizure events have improved post ablation with minimal sporadic word finding difficulties. We discussed the eloquent location of the cavernoma and that I would recommend surgical resection only if there were a clear hemorrhage event or new electrographic seizures. We discussed there is a persistent but small risk of hemorrhage from the cavernoma. She is frustrated that her headaches continue to interfere with her quality of life and I encouraged her to continue working with her PCP and neurology to optimize management. There are unfortunatelynot good surgical interventions to address chronic headaches. We will plan to continue to monitor the cavernoma, with a scan in 3 years since this last 1 year f/u was normal. We would repeat imaging earlier if she had new or concerning symptoms. The patient understands to contact neurosurgery or seek emergent help with any acute worsening of neurologic symptoms. PLAN SUMMARY: MRI brain in 3 years I spent a total of 30 minutes in the care of this patient today including review of prior notes, review of prior images, interval history, physical exam as outlined above, personal review and independent interpretation of studies outlined above, patient counseling, documentation in the medical record, and coordination of care. -- Tiffanie Quiles MD Open cerebrovascular and endovascular neurosurgery attending Section of Neurosurgery Department of Surgery [facility] documented in this encounter Plan of Treatment [...] with exercise. 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
--- OUTSIDE RECORDS SUMMARY | 2024-01-13 18:53 | XMS_ITS | Clinical Summary ---
Author Organization [facility] Address [facility] [place] [address] Care Team Providers Care Therapeutic Recreation Specialist Name Role Phone Medardo Redman DO Primary Care Provider [phone] Allergies Active Allergy Reactions Criticality Noted Date Comments Oxycodone-Acetaminophen Shortness Of Breath High Red Dye Other (See Comments) High Stops heart Medications Medication Sig Dispensed Refills Start Date End Date Status acetaminophen (Tylenol) 500 mg Tablet Take 1,000 mg by mouth every 6 hours as needed for Pain. Active b complex vitamins Tablet Take 1 tablet by mouth daily. Active citalopram (CeleXA) 40 mg Tablet TAKE 1 TABLET BY MOUTH ONCE DAILY 12/02/2019 Active lisinopriL (Prinivil;Zestril) 40 mg TabletIndications:Esse ntial hypertension Take 1 tablet by mouth daily. 90 tablet 3 01/21/2020 Active LORazepam (Ativan) 1 mg Tablet Take by mouth as needed. 06/29/2020 Active busPIRone (Buspar) 5 mg Tablet Take 10 mg by mouth 3 times daily. Active topiramate (Topamax) 100 mg Tablet Take 100 mg by mouth 2 times daily. Active albuteroL 90 mcg/actuation HFA Aerosol Inhaler Inhale 1 puff into the lungs every 4 hours as needed for Wheezing. Use with spacer Active fluticasone propionate (Flonase) 50 mcg/actuation [place], Suspension 2 sprays by Each Nare route 2 times daily. Active pantoprazole EC (Protonix) [address] tablet Take 40 mg by mouth daily. FOR 90 DAYS 09/02/2022 Active SUMAtriptan (Imitrex) 100 mg tablet TAKE ONE TABLET BY MOUTH EVERY 24 HOURS NEEDED FOR HEADACHE,MAY REPEAT AFTER 2 HOURS (USE DIRECTED) FOR 30 DAYS 10 tablet 5 09/19/2022 Active cholecalciferol, Vitamin D3, 50 mcg (2,000 unit) Capsule Take by mouth. Active montelukast (Singulair) 10 mg tablet Take 10 mg by mouth nightly. 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 01/09/21 08/11/2020 Recurrent syncope 01/22/2020 Chronic nasal congestion 01/06/2020 Mood changes 01/06/2020 Glaucoma 12/21/2019 Altered mental status 10/27/2019 Complicated migraine 10/15/2019 Class 3 severe obesity due t o excess calories with serious comorbidity and body mass index (BMI) of 50.0 to 59.9 in adult 09/18/2019 Obstructive sleep apnea 07/15/2019 Overview (01/21/2020): Did not tolerate CPAP Hypertension 06/30/2019 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 Anxiety 11/21/2017 Idiopathic intracranial hypertension 11/21/2017 Neurological deficit present 11/15/2017 Menorrhagia 09/06/2015 Exotropia 09/16/2012 Overview (09/16/2012): Long-standing, s/p strabismus surgery XT OD but can alternate, no diplopia Resolved Problems Problem Noted Date Diagnosed Date Resolved Date Syncope 10/12/2019 10/15/2019 AMS (altered mental status) 09/28/2019 01/05/2020 Ventral hernia without obstr uction or gangrene 09/23/2018 09/30/2018 Abnormal cervical Papanicolaou smear 09/09/2018 09/30/2018 Diverticulosis of colon 09/09/201809/18 Pyelonephritis 09/09/2018 09/30/2018 Urinary tract infection 09/09/201809/18 Headache(784.0) 08/20/2012 09/30/2018 Post-op bleeding 02/08/2012 09/30/2018 Overview (02/08/2012): Following Morbid obesity 08/25/2009 09/18/2019 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 UTI (urinary tract infection) 09/30/2018 Overview (04/25/2010): patient reported Encounters Date Type Department Care Team Description 01/13/2024 4:50 PM EST Telehealth [place] [address] Telehealth, Neurology Arrived 12/05/2023 [place] [address] Octavio Vance MD from Last 3 Months Immunizations Name Administration Dates Next Due Influenza PF, Split 12/14/2016 Influenza Quadrivalent, Preservative Free 2017 Influenza Trivalent, Preservative Free 8,12/14/2016 MMR Vaccine LIVE 04/24/2011 Tdap (Adacel, Boostrix) 11/30/2011,03/28/2010 Family History Medical History Relation Comments Obesity Brother Hypertension Father Retinal Detachment Father Type 2 Diabetes Father Cataracts Maternal Grandfather Colon Polyps Maternal Grandfather Type 2 Diabetes Maternal Grandfather Cataracts Maternal Grandmother Cerebrovascular Accident Maternal Grandmother Glaucoma Maternal Grandmother Type 2 Diabetes Maternal Grandmother Asthma Paternal Aunt Breast Cancer Paternal Aunt Myocardial Infarction Paternal Grandfather Type 2 Diabetes Paternal Grandfather Cerebrovascular Accident Paternal Grandmother Arrhythmia Paternal Uncle of an arrhy thmia at age 22. Also had a mitral valve disorder. Thrombophilia Paternal Uncle Type 2 Diabetes Paternal Uncle Amblyopia Neg Hx Cancer Neg Hx Heart Disease Neg Hx Macular Degeneration Neg Hx Strabismus Neg Hx Thyroid Disease Neg Hx Relation Status Comments Brother Alive Father Alive Maternal Grandfather Maternal Grandmother Mother Alive does not know mo ther Paternal Aunt Paternal Grandfather Paternal Grandmother Paternal Uncle (Age 22) Social History Tobacco Use Types Packs/Day Years Used Date Smoking Tobacco: Former Cigarettes 0.3 2 0 10/18/2015 - 10/17/2017 Smokeless Tobacco: Never Alcohol Use Standard Drinks/Week Comments Not Currently 0 (1 standard drink = 0.6 oz pur e alcohol) DH IPV Inpatient Questions Answer Date Recorded Does [...] on file Sexual Orientation Not on file Last Filed Vital Signs Vital Sign Reading Time Taken Comments Blood Pressure 122/81 07/04/2023 11:44 AM EDT Pulse 71 07/04/2023 11:44 AM EDT Temperature 36 ??C (96.8 ??F) 07/04/2023 11: 44 AM EDT Respiratory Rate 16 09/27/2022 8:06 PM EDT Oxygen Saturation 95% 07/04/2023 11: 44 AM EDT Inhaled Oxygen Concentration - - Weight 130.5 kg (287 lb 12.8 oz) 2023 11:44 AM EDT Height 167.6 cm (5' 6) 07/04/2023 11:4 4 AM EDT Body Mass Index 46.45 07/04/2023 11:44 AM EDT Plan of Treatment Health Maintenance Due Date Last Done Comments Pneumococcal Vaccine: At-Ris k 5-64yrs (1 of 2 - PCV) 12/27/1989 HIV screen 12/27/2001 Hepatitis C Screening 12/27/2001 Lipid Screening 12/27/2001 Hepatitis B vaccine (0-59 yrs) (1) 12/27/2002 HPV test 07/26/2020 07/27/2015 PAP Smear 07/26/2020 07/27/2015, 05/21, 10/05/2010, Additional history exists Tetanus/Diphtheria/Pertussis Vaccines (3 - Td or Tdap) 11/29/2021 11/30/2011, 03/28/2010 Covid-19 Vaccine ( - 2023-2 5 season) 2023 Influenza (Flu) vaccine (1 o f 1 - Influenza standard series) 10/20/2023 11/18/2017, 11/17/2017, 12/14/2016, Additional history exists Breast Cancer Share Decision Needed 2023 Breast Cancer screening 2023 Diabetes Screening (HgbA1C o r Glucose) 09/24/2025 09/24/2022, 01/10/2021, 01/08/2020, Additional history exists Goals Goal Patient Goal Type Associated Problems Recent Progress Patient-Stated? Author decrease artificial sweeteners Lifestyle No Velia Gibson MD Note: To 2 servings per day (crystal lite or propel) tracking food intake Lifestyle No Velia Gibson MD Note: Already doing this (09/17/2019). Don't add in extra calories for calories you burn with exercise. 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 CYTOLOGY FINAL REPORT Routine 07/27/2015 11:00 AM EDT from Last 3 Months or Most Recently Relevant to Health Maintenance Results * (ABNORMAL) Comprehensive metabolic panel (non-fasting) (09/24/2022 8:43 PM EDT) Glucose 118 65 - 199 mg/dL [facility] Comment:Diabetes: >=200 mg/d L plus symptoms Blood Urea Nitrogen 10 8 - 18 mg/dL [facility] Creatinine 0.73 0.70 - 1.20 mg/dL [facility] Sodium 139 135 - 145 mmol/L [facility] Potassium 3.6 3.5 - 5.0 mmol/L [facility] Comment: Please note: ??Patients with WBC >100,000 may have falsely elevated Potassium levels. ??For accurate Potassium quantification in these patients send serum separator tube (gold top) for subsequent determinations. ??Contact the Clinical Chemistry Laboratory if there are any questions. Chloride 108(H) 98 - 107 mmol/L [facility] Carbon Dioxide 20(L) 22 - 31 mmol/L [facility] Anion Gap 11 5 - 15 mmol/L [facility] Calcium 9.1 8.5 - 10.5 mg/dL [facility] Protein, Total 6.4 6.1 - 8.0 g/dL [facility] Albumin 3.8 3.2 - 5.2 g/dL [facility] Aspartate Aminotransferase 13 0 - 30 unit/L [facility] Alanine Aminotransferase 18 0 - 30 unit/L [facility] Alkaline Phosphatase 56 35 - 105 unit/L [facility] Bilirubin, Total <0.2(L) 0.2 - 1.3 mg/dL [facility] Est Glomerular Filtration Rate 108 >=60 mL/min/1. 73 m?? [facility] Comment: This patient's estimated GFR was calculated using the 2020 CKD-EPI equation. The estimated GFR can vary from the measured GFR by up to 30% in the absence of rapidly changing kidney function. Assessment of the estimated GFR is not appropriate when creatinine concentrations are rapidly changing. For clinical situations in which a more precise estimate of GFR is necessary, consider alternative methods of GFR estimation such as a 24-hour urine creatinine clearance. Assignment of CKD stage 1-5 for patients with an eGFR near the transition point between stages may be based on clinical assessment of muscle mass and symptoms in addition to eGFR. Blood 09/24/2022 8:43 PM EDT 09/24/2022 8:50 PM EDT Narrative Resulting Agency Comment Spec In Lab Christopher Carrillo MD CHEMISTRY ORDERA [facility] Organization Address City/State/[facility] Co de Phone Number [facility] [place] [address] * HPV (07/27/2015 11:00 AM EDT) HPV16 NEGATIVE NEGATIVE [facility] HPV 18 NEGATIVE NEGATIVE [facility] HPV Other HR NEGATIVE NEGATIVE [facility] HPV Interpretation See Comment [facility] Comment: NEGATIVE for high-risk HPV *. * Testing negative for high risk HPV means that the specimen is negative for the following 14 types tested: ??types 16, 18, 31, 33, 35, 39, 45, 51, 52, 56, 58, 59, 66, and 68. ??The test is not intended to detect low risk HPV types. Boyd Vibha HPV test Specimen: HPV Testing - Cytology Liquid Based Prep Cervical swab (specimen) 07/27/2015 11:00 AM EDT 07/27/2015 10:49 PM EDT Narrative Resulting Agency Comment Spec In Lab / APD Amada Carson MD PATHOLOGY/CYTOLOG Y ORDERABLES [facility] [place] [address] * Sourcing Coordinator Cytology Final Report (07/27/2015 11:00 AM EDT) Sourcing Coordinator Cytology Final Report [id number] ? Location: APDO The signing pathologist has (i) examined the relevant preparation(s) for the specimen(s) and (ii) rendered or confirmed the diagnosis(es). . ? Sourcing Coordinator Final DIAGNOSIS NORMAL Negative for Intraepithelial Lesion or Malignancy (NILM). 08/02/15 ?? Screened by: ??LEATHA 08/02/15 ?? Verified by: ??EMANUEL Patel(ASCP), Joelle Cook - Coding File Clerk HPV RESULTS HPV16 (Result) ?NEGATIVE HPV18 (Result) ?NEGATIVE HPVOHR (Result) ? NEGATIVE HPV (Interpretation) ?See Below HPV (Interpretation) Text: NEGATIVE for high-risk HPV *. *Testing negative for high risk HPV means that the specimen is negative for the following 14 types tested: types 16, 18, 31, 33, 35, 39, 45, 51, 52, 56, 58, 59, 66, and 68. The test is not intended to detect low risk HPV types. Boyd vibha HPV test Specimen: HPV Testing - Cytology Liquid Based Prep The Boyd vibha ? HPV test was validated, performed and results reported through the [facility] ([facility]) at [facility]. ? - Janes Ballesteros, PhD, HCLD, Director-[facility] STATEMENT OF ADEQUACY Specimen submitted is satisfactory. Endocervical component present. CLINICAL INFORMATION HPV Option: ? Cervical Endocervical LBP Preparation: ?Liquid Based Pap Specimen Source: ?Concurrent HPV LMP: ?05/18/16 Hormones?: ?No Hysterectomy?: ?No ?: ?No ?: ?No I.U.D.?: ?No Pelvic Radiation: ? 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 No Hist Abnl Pap/Biopsy?: ??Yes Hist of HPV Vaccine?: ?? No Hist of Smoking?: ? Yes Hist of FABIOLA exposure?: ??No Clinical Data, Significant Therapy and Clinical Impression ?? : ?? _ Referring Identifier: ??[id number] This Pap Test has been evaluated with the assistance of the [employer] Pap Test Imaging System. . CLINICAL INFORMATION Note: The Pap test is a screening test for cervical cancer with an inherent false-negative rate dependent upon several variables. ??For further information please contact the [facility] Laboratory. Reference: ??Chiqui CS. ??Airport Maintenance Chief of Pap Smear Results. ??In: ??Evaristo BS, Jeovanny HH, ed. ??The Pap Smear. ??[place]: ??Kyle, 2002: ??71-77. [facility] 07/27/2015 11:0 0 AM EDT Narrative Resulting Agency Comment Spec In Lab / APD Amada Carson MD PATHOLOGY/CYTOLOG Y ORDERABLES [facility] [place] [address] from Last 3 Months or Most Recently Relevant to Health Maintenance Advance Directives * Attempt Cardiopulmonary Resuscitation - Inpatient (Latest Code Status on File) Date Activated Date Inactivated Comments 09/24/2022 2:46 PM 09/28/2022 3:08 PM Question Answer Comments Code Status decision made by: Patient * Attempt Cardiopulmonary Resuscitation - Inpatient Date Activated Date Inactivated Comments 01/09/2021 6:47 AM 01/10/2021 12:57 PM Question Answer Comments Code Status decision made by: Patient * Attempt Cardiopulmonary Resuscitation - Inpatient Date Activated Date Inactivated Comments 10/27/2019 10:43 PM 10/29/2019 2:50 PM Question Answer Comments Code Status decision made by: Patient * Attempt Cardiopulmonary Resuscitation - Inpatient Date Activated Date Inactivated Comments 10/12/2019 7:33 PM 10/15/2019 3:05 PM Question Answer Comments Code Status decision made by: Patient * Attempt Cardiopulmonary Resuscitation - Inpatient Date Activated Date Inactivated Comments 09/28/2019 9:59 PM 09/29/2019 8:57 PM Question Answer Comments Code Status decision made by: Patient Content of discussion: would want Matias Tyler () to make decision for her if unable to make her self Care Teams Therapeutic Recreation Specialist Relationship Specialty Start Date End Date Medardo Redman DO [address] [place] [address] PCP - General Family Medicine 06/22/21
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
--- OUTSIDE RECORDS SUMMARY | 2024-01-13 18:53 | XMS_ITS | Encounter Summary ---
Author [facility] [place] [address] Care Team Providers Care Field Naturalist Name Role Phone Feroz Medardo Sen OLSEN Primary Care Provider +1- [phone] Reason for Visit * Diagnostic Test (Routine) - Closed Specialty Diagnoses / Procedures Referred By Contjaqueline t Referred To Contact Radiology Diagnoses Cavernous malformation Procedures MRI Brain wo Contrast Tiffanie Quiles MD [facility] [place] [address] [place] [address] Referral ID Status Reason Start Date Expiration Date V isits Requested Visits Authorized [id number] Closed Specialty Service Requested 07/04/2022 01/05/2024 1 1 Encounter Details Date Type Department Care Team (Latest Contact Info) Description 06/19/2023 12:44 PM EDT - 06/19/2023 11:59 PM EDT [place] [address] Tiffanie Quiles MD [facility] [place] [address] Discharge Disposition: Home Social History Tobacco Use Types Packs/Day Years Used Date Smoking Tobacco: Former Cigarettes 0.3 2 0 10/18/2015 - 10/17/2017 Smokeless Tobacco: Never Alcohol Use Standard Drinks/Week Comments Not Currently 0 (1 standard drink = 0.6 oz pur e alcohol) [facility] Inpatient Questions Answer Date Recorded Does Anyone Try to Keep You From Having Contact with Others or Doing Things Outside Your Home? no 09/25/2022 Feels Threatened by Someone no 0 09/2022 Feels Unsafe at Home or Work/School [...] with spacer fluticasone propionate (Flonase) 50 mcg/actuation [place], Suspension 2 sprays by Each Nare route [...] 05/24/2023 12/05/2023 documented as of this encounter Plan of Treatment Not on [...] Brain wo Contrast (06/19/2023 3:47 PM EDT) WORKSTATION ID [id number] RAD Anatomical Region Laterality Modality Head Magnetic [...] who have questions please contact the health customer care professional that requested your imaging first. ? Electronically signed by: Alonzo Arreguin DO, [facility] ??([phone]), at 06/20/2023 3:47 PM Narrative 06/20/2023 3:47 [...] patients who have questions please contactthe health customer care professional that requested your imaging first. Electronically signed by: Alonzo Arreguin DO, [facility]([phone]), at 06/20/2023 3:47 PM Tiffanie Quiles MD IMG MRI ORDERABLES documented in this encounter Visit Diagnoses Not on filedocumented in this encounter Care Teams Field Naturalist Relationship Specialty Start Date End Date Medardo Redman DO [address] [place] [address] PCP - General Family Medicine 06/22/21 documented as of this encounter
--- OUTSIDE RECORDS SUMMARY | 2024-01-13 18:53 | XMS_ITS | Encounter Summary ---
Author Organization [facility] Address [facility] [place] [address] Care Team Providers Care Safety Council Director Name Role Phone Medardo Redman DO Primary Care Provider +1- [phone] Encounter Details Date Type Department Care Team (Latest Contact Info) Description 07/04/2023 Travel Social History Tobacco Use Types Packs/Day Years Used Date Smoking Tobacco: Former Cigarettes 0.3 2 0 10/18/2015 - 10/17/2017 Smokeless Tobacco: Never Alcohol Use Standard Drinks/Week Comments Not Currently 0 (1 standard drink = 0.6 oz pur e alcohol) [facility] Inpatient Questions Answer Date Recorded [...] on file documented as of this encounter Plan of [...] documented as of this encounter Visit Diagnoses Not on filedocumented in this encounter Care Teams Safety Council Director Relationship Specialty Start Date End Date Medardo Redman DO [address] [place] [address] PCP - General Family Medicine 06/22/21 documented as of this encounter
--- OUTSIDE RECORDS SUMMARY | 2024-01-13 18:53 | XMS_ITS | Encounter Summary ---
Author Organization Replaced By [facility] Address [facility] [place] [address] Care Team Providers Care Tricot Knitting Machine Operator Name Role Phone FerozMedardo church Primary Care Provider +1- [phone] Encounter Details Date Type Department Care Team (Late st Contact Info) Description 01/13/2024 4:50 PM EST Telehealth [place] [address] Telehealth, Neurology None Arrived Social History Tobacco Use Types Packs/Day Years [...] on filedocumented in this encounter Care Teams Tricot Knitting Machine Operator Relationship Specialty Start Date End Date Medardo Redman DO [address] [place] [address] PCP - General Family Medicine 06/22/21 documented as of this encounter
--- OUTSIDE RECORDS SUMMARY | 2024-01-13 18:53 | XMS_ITS | Encounter Summary ---
Author Organization [facility] Address [facility] [place] [address] Care Team Providers Care Head Of Housekeeping Name Role Phone FerozMedardo church Primary Care Provider +1- [phone] Reason for Visit * Reason Comments Medication Refill Encounter Details Date Type Department Care Team (Late st Contact Info) Description 12/05/2023 [place]ill [place] [id number] Octavio Vance MD [facility] [place] [address] Social History Tobacco Use Types Packs/Day Years Used Date Smoking Tobacco: Former Cigarettes 0.3 2 0 10/18/2015 - 10/17/2017 Smokeless Tobacco: Never Alcohol Use Standard Drinks/Week Comments Not Currently 0 (1 standard drink = 0.6 oz pur e alcohol) [facility] Inpatient Questions Answer Date Recorded Does [...] on file documented as of this encounter Miscellaneous Notes * Telephone Encounter - Martha Tracey CMA - 12/05/2023 8:59 AM EDT Prescription Renewal Request Name: Kimberli Bales : 1985 Prescription(s) Requested: Requested Prescriptions Pending Prescriptions Disp Refills rimegepant (Nurtec ODT) 75 mg disintegrating tablet [Pharmacy Med Name: Nurtec 75 MG Oral Tablet Disintegrating] 15 tablet 11 Sig: DISSOLVE 1 TABLET BY MOUTH EVERY OTHER DAY Date of Encounter last in This Dept (If need an appointment send to secretaries to schedule): 06/19/2023 with Eddie Rios MD Next Encounter in This Dept: Visit date not found Date of Last Refill (for each medication): rimegepant (Nurtec ODT) 75 mg disintegrating tablet () Take 1 tablet by mouth every other day for 180 days. Dispense: 15 tablet, Refills: 5 ordered 05/24/2023 Status of request: Pended Allergies Allergen Reactions Oxycodone-Acetaminophen Shortness Of Breath Red Dye Other (See Comments) Stops heart Martha Tracey CMA 12/05/23 9:00 AM documented in this encounter Plan of Treatment [...] on filedocumented in this encounter Care Teams Head Of Housekeeping Relationship Specialty Start Date End Date Medardo Remdan DO [address] [place] [address] PCP - General Family Medicine 06/22/21 documented as of this encounter
--- OUTSIDE RECORDS SUMMARY | 2024-01-13 18:53 | XMS_ITS | Encounter Summary ---
Author Organization [facility] Address [facility] [place] [address] Care Team Providers Care Farmworker Brooder Farm Name Role Phone FerozMedardo long Primary Care Provider +1- [phone] Reason for Visit * Reason Onset Date Comments Bumped Appointment 06/06/2023 Encounter Details Date Type Department Care Team (Late st Contact Info) Description 06/06/2023 [place] [id number] Eddie Rios MD [facility] [place] [address] Bumped Appointment Social History Tobacco Use Types Packs/Day Years Used Date Smoking Tobacco: Former Cigarettes 0.3 2 0 10/18/2015 - 10/17/2017 Smokeless Tobacco: Never Alcohol Use Standard Drinks/Week Comments Not Currently 0 (1 standard drink = 0.6 oz pur e alcohol) [facility] Inpatient Questions Answer Date Recorded Does Anyone [...] encounter Miscellaneous Notes * Telephone Encounter - Ladonna Anderson - 06/06/2023 10:40 AM EDT Patient rescheduled to 06/19/23. * Telephone Encounter - Ladonna Anderson - 06/06/2023 9:35 AM EDT Reschedule 06/24/[address] Rios. Kindly warm transfer call to [facility] for available dates. documented in this encounter Plan of Treatment [...] on filedocumented in this encounter Care Teams Farmworker Brooder Farm Relationship Specialty Start Date End Date Medardo Redman DO [address] [place] [address] PCP - General Family Medicine 06/22/21 documented as of this encounter
--- OUTSIDE RECORDS SUMMARY | 2024-01-13 18:53 | XMS_ITS | Encounter Summary ---
Author Organization [facility] Address [facility] [place] [address] Care Team Providers Care Space And Storage Clerk Name Role Phone Medardo Redman DO Primary Care Provider +1- [phone] Encounter Details Date Type Department Care Team (Latest Contact Info) Description 06/19/2023 Travel Social History Tobacco Use Types Packs/Day Years Used Date Smoking Tobacco: Former Cigarettes 0.3 2 0 10/18/2015 - 10/17/2017 Smokeless Tobacco: Never Alcohol Use Standard Drinks/Week Comments Not Currently 0 (1 standard drink = 0.6 oz pur e alcohol) [facility] Inpatient Questions Answer Date Recorded Does Anyone [...] on filedocumented in this encounter Care Teams Space And Storage Clerk Relationship Specialty Start Date End Date Medardo Redman DO [address] [place] [address] PCP - General Family Medicine 06/22/21 documented as of this encounter
--- OUTSIDE RECORDS SUMMARY | 2024-01-13 18:54 | XMS_ITS | Encounter Summary ---
Author Organization [facility] Address [facility] [place] [address] Care Team Providers Care Flexible Babysitter Name Role Phone VillagranRadha diaz Palma SALAS Primary Care Provider [phone] Encounter Details Date Type Department Care Team (Late st Contact Info) Description 02/23/2021 11:20 AM EST Office [place] [address] Chase Mackenzie MD [facility] [place] [address] Cavernous malformation Social History Tobacco Use Types Packs/Day Years Used Date Smoking Tobacco: Former Cigarettes 0.3 2 0 10/18/2015 - 10/17/2017 Smokeless Tobacco: Never Alcohol Use Standard Drinks/Week Comments Yes 0 (1 standard drink = 0.6 oz pur e alcohol) Occasionally Sex and Gender Information Value Date Recorded Sex Assigned at Not on file Gender Identity Not on file Sexual Orientation Not on file documented as of this encounter Last Filed Vital Signs Vital Sign Reading Time Taken Comments Blood Pressure 121/69 02/23/2021 10:58 AM EST Pulse 80 02/23/2021 10:58 AM EST Temperature 36.7 ??C (98.1 ??F) 02/23/2021 10:[address] Respiratory Rate 18 02/23/2021 10:58 AM EST Oxygen Saturation 98% 02/23/2021 10:58 AM EST Inhaled Oxygen Concentration - - Weight 129.7 kg (286 lb) 02/23/2021 10:58 AM EST Height 168.9 cm (5' 6.5) 02/23/2021 10:58 AM ES T Body Mass Index 45.47 02/23/2021 10:58 AM EST documented in this encounter Progress Notes * Chase Mackenzie MD - 02/23/2021 11:20 AM EST Neurosurgery Clinic Note Kimberli Bales is a 35 y.o. woman with a left frontal cavernoma s/p laser ablation on 01/09/21,returning to clinic for follow-up. Since the procedure she reports she feels significantly improved, with fewer headaches and no seizure- like episodes. We will plan to follow-up with an MRI in May to evaluate for interval involution of the cavernoma. Chase Mackenzie MD Total visit time 15 minutes, of which 10 were spent counseling and coordinating care, including reviewing relevant imaging, lab results, and/or medical records. documented in this encounter Plan of Treatment [...] system documented in this encounter Care Teams Flexible Babysitter Relationship Specialty Start Date End Date Radha Villagran, [address] [place] [address] PCP - General Family Medicine 01/22/20 06/21/21 documented as of this encounter
--- OUTSIDE RECORDS SUMMARY | 2024-01-13 18:54 | XMS_ITS | Encounter Summary ---
Author Organization [facility] [address] [facility] Address [facility] [place] [address] Care Team Providers Care Chief Nuclear Medicine Technologist Name Role Phone FerozMedardo Coates Primary Care Provider [phone]- [phone] Reason for Visit * Reason Onset Date Comments Medication Refill 05/24/2023 Encounter Details Date Type Department Care Team (Late st Contact Info) Description 05/24/2023 [place] [address] Octavio Vance MD [facility] [place] [address] Social History Tobacco Use Types Packs/Day Years Used Date Smoking Tobacco: Former Cigarettes 0.3 2 0 10/18/2015 - 10/17/2017 Smokeless Tobacco: Never Alcohol Use Standard Drinks/Week Comments Not Currently 0 (1 standard drink = 0.6 oz pur e alcohol) [facility] In[facility] Questions Answer Date Recorded Does [...] encounter Miscellaneous Notes * Telephone Encounter - Eusebia Salinas RN - 05/24/2023 10:47 AM EDT Prescription Renewal Request Name: Chana Bales : 1985 Prescription(s) Requested: Requested Prescriptions Pending Prescriptions Disp Refills rimegepant (Nurtec ODT) 75 mg disintegrating tablet 15 tablet 5 Sig: Take 1 tablet by mouth every other day for 180 days. Date of Last Encounter: 12/20/22 Will plan to initiated Rimegepant 75mg Q48H with option for additional 75mg dose for abortive therapy. Have also counseled patient that Imitrex is most effective at onset of headache and she likely will receive additional benefit with taking it in this way. We discussed keeping a headache journal to monitor ongoing treatment response. Patient to return approximately 6 months. Next Encounter: 06/24/2023 Date of Last Refill: 12/20/22 Medication category requirements (labs etc): n/a Status of request: Pended Allergies Allergen Reactions Oxycodone-Acetaminophen Shortness Of Breath Red Dye Other (See Comments) Stops heart Eusebia Salinas RN 05/24/23 10:47 AM documented in this encounter Plan of [...] on filedocumented in this encounter Care Teams Chief Nuclear Medicine Technologist Relationship Specialty Start Date End Date Medardo Redman DO [address] [place] [address] PCP - General Family Medicine 06/22/21 documented as of this encounter
--- OUTSIDE RECORDS SUMMARY | 2024-01-13 18:54 | XMS_ITS | Encounter Summary ---
Author Organization [facility] Address [facility] [place] [address] Care Team Providers Care Sales Clerk Name Role Phone Medardo Redman DO Primary Care Provider [phone]- [phone] Encounter Details Date Type Department Care Team (Latest Contact Info) Description 09/24/2022 Travel Social History Tobacco Use Types Packs/Day Years Used Date Smoking Tobacco: Former Cigarettes 0.3 2 0 10/18/2015 - 10/17/2017 Smokeless Tobacco: Never Alcohol Use Standard Drinks/Week Comments Not Currently 0 (1 standard drink = 0.6 oz pur e alcohol) [facility] Inpatient Questions Answer Date Recorded Does [...] on filedocumented in this encounter Care Teams Sales Clerk Relationship Specialty Start Date End Date Medardo Redman DO [address] [place] [address] PCP - General Family Medicine 06/22/21 documented as of this encounter
--- OUTSIDE RECORDS SUMMARY | 2024-01-13 18:54 | XMS_ITS | Encounter Summary ---
Author Organization [facility] [place] [address] Care Team Providers Care Cardio Tech Name Role Phone FerozMedardo long Primary Care Provider +1- [phone] Encounter Details Date Type Department Care Team (Late st Contact Info) Description 09/13/2022 [place] [address] Eddie Rios MD [facility] [place] [address] Social History Tobacco Use Types Packs/Day Years Used Date Smoking Tobacco: Former Cigarettes 0.3 2 0 10/18/2015 - 10/17/2017 Smokeless Tobacco: Never Alcohol Use Standard Drinks/Week Comments Not Currently 0 (1 standard drink = 0.6 oz pur e alcohol) Sex and Gender Information Value Date Recorded Sex Assigned at Not on file Gender Identity Not on file Sexual Orientation Not on file documented as of this encounter Miscellaneous Notes * Telephone Encounter - Roxie Rivera RN - 09/13/2022 3:12 PM EDT Called Farhan and let him know that patient should come to appointment on 09/19/2022 and provider would call with MRI results after they were completed. Spouse verbalized understanding and agreement with plan. * Telephone Encounter - Roxie Rivera RN - 09/13/2022 10:38 AM EDT Copied from [facility] #[id number]. Topic: Specialty Dept CRMs - Orders >> Sep 13, 2022 8:50 AM Va Bolton wrote: Orders Request Specialist: Eddie Rios MD Relationship (if other than patient-full name): Patient's Farhan Type of Request: [x] Input orders - Questions regarding orders Type/Name of Order: Imaging If Labs and Imaging list name of specific test(s): MRI Brain Date of Lab/Imaging/Testing Appt: 09/24/22 Date of Provider Appt: 09/19/22 Appt Type with Provider: Other: Patient is scheduled for a New Re Est visit with Eddie Rios MD Patient's , Farhan (no DPR on file) called to see if Patient can still be seen on 09/19/22 even though MRI had to reschedule patient to 09/24/22. Please call Farhan back to discuss further. Patient Requesting to Have Orders Sent to Facility Outside of [facility]: No documented in this encounter Plan of Treatment [...] on filedocumented in this encounter Care Teams Cardio Tech Relationship Specialty Start Date End Date Medardo Redman DO [address] [place] [address] PCP - General Family Medicine 06/22/21 documented as of this encounter
--- OUTSIDE RECORDS SUMMARY | 2024-01-13 18:54 | XMS_ITS | Encounter Summary ---
Author Organization [facility] Address [facility] [place] [address] Care Team Providers Care Company Controller Name Role Phone Medardo Redman DO Primary Care Provider +1- [phone] Encounter Details Date Type Department Care Team (Latest Contact Info) Description 12/20/2022 Travel Social History Tobacco Use Types Packs/Day Years Used Date Smoking Tobacco: Former Cigarettes 0.3 2 0 10/18/2015 - 10/17/2017 Smokeless Tobacco: Never Alcohol Use Standard Drinks/Week Comments Not Currently 0 (1 standard drink = 0.6 oz pur e alcohol) [facility] Inpatient Questions Answer Date Recorded Does [...] on filedocumented in this encounter Care Teams Company Controller Relationship Specialty Start Date End Date Medardo Redman DO [address] [place] [address] PCP - General Family Medicine 06/22/21 documented as of this encounter
--- OUTSIDE RECORDS SUMMARY | 2024-01-13 18:54 | XMS_ITS | Encounter Summary ---
Author [facility] [place] [address] Care Team Providers Care Supervisor Corduroy Cutting Name Role Phone Feroz Medardo Chatterjee Primary Care Provider +1- [phone] Reason for Visit * Diagnostic Test (Routine) - Denied Specialty Diagnoses / Procedures Referred By Contac t Referred To Contact Radiology Diagnoses Cavernous malformation Procedures MRI Brain wwo Contrast (Generic) Robert Rossi PA [facility] [place] [address] [facility] [place] [address] Referral ID Status Reason Start Date Expiration Date V isits Requested Visits Authorized [id number] Denied Specialty Service Requested 06/28/2021 12/29/2022 1 0 Encounter Details Date Type Department Care Team (Latest Contact Info) Description 06/22/2022 8:23 AM EDT - 06/22/2022 11:59 PM EDT [place] [address] Chase Mackenzie MD [facility] [place] [address] Discharge Disposition: Home Social [...] Sig Dispensed Refills Start Date End Date busPIRone (Buspar) 5 mg Tablet Take 10 mg by mouth 3 times daily. topiramate (Topamax) 100 mg Tablet Take 100 mg by mouth 2 times daily. albuteroL 90 mcg/actuation HFA Aerosol Inhaler Inhale 1 puff into the lungs every 4 hours as needed for Wheezing. Use with spacer fluticasone propionate (Flonase) 50 mcg/actuation [place], Suspension 2 sprays by Each Nare route 2 times daily. LORazepam (Ativan) 1 mg Tablet Take by mouth as needed. 06/29/2020 lisinopriL (Prinivil;Zestril) 40 mg TabletIndications:Essent ial hypertension Take 1 tablet by mouth daily. 90 tablet 3 01/21/2020 citalopram (CeleXA) 40 mg Tablet TAKE 1 TABLET BY MOUTH ONCE DAILY 12/02/2019 b complex vitamins Tablet Take 1 tablet by mouth daily. acetaminophen (Tylenol) 500 mg Tablet Take 1,000 mg by mouth every 6 hours as needed for Pain. traMADoL (Ultram) 50 mg Tablet Take 1 tablet by mouth every 6 hours as needed for Pain. 8 tablet 01/10/2021 09/19/2022 levETIRAcetam (KEPPRA) 1,000 mg Tablet Take 1,000 mg by mouth 2 times daily. 500 mg in morning and a 1000 mg at ningt 09/28/2022 benzonatate (Tessalon) 100 mg Capsule Take 100 mg by mouth 2 times daily as needed for Cough. 09/19/2022 diphenhydrAMINE (Benadryl) 25 mg Capsule Take by mouth nightly as needed. 06/29/2020 09/19/2022 pyridoxine, vitamin B6, (B-6) 100 mg Tablet Take 100 mg by mouth daily. 09/19/2022 loratadine (Claritin) 10 mg Tablet Take 10 mg by mouth daily. 09/19/2022 documented as of this encounter Plan of Treatment Not on file documented as of this encounter Goals Goal Patient Goal Type Associated Problems Recent Progress Patient-Stated? Author decrease artificial sweeteners Lifestyle No Velia Gibson MD Note: To 2 servings per day (crystal Social [employer] or propel) tracking food intake Lifestyle No Velia Gibson MD Note: Already doing this (09/17/2019). Don't add in extra calories for calories you burn with exercise. documented as of this encounter Procedures Procedure Name Priority Date/Time Associated Diagnosis Comments MRI BRAIN WWO CONTRAST (GENERIC) Routine 06/22/2022 10:35 AM EDT Cavernous malformation documented in this encounter Visit Diagnoses Not on filedocumented in this encounter Administered Medications Inactive Administered Medications - up to 3 most recent administrations Medication Order MAR Action Action Date Dose Rate Site gadoterate meglumine (Dotarem) (0.5 mMol/mL) injection solution 0-100 mL 0-100 mL, Intravenous, ONCE PRN, 1 dose, Starting on Sat06/22/22 at 1027, Until Sat06/22/22 at 1015, Per Protocol, Radiology Contrast, Routine Given 06/22/2022 10:15 AM EDT 27 mLs documented in this encounter Care Teams Supervisor Corduroy Cutting Relationship Specialty Start Date End Date Medardo Redman DO [address] [place] [address] PCP - General Family Medicine 06/22/21 documented as of this encounter
--- OUTSIDE RECORDS SUMMARY | 2024-01-13 18:54 | XMS_ITS | Encounter Summary ---
Author Organization [facility] [place] [address] Care Team Providers Care Entry Level Staff Accountant Name Role Phone Medardo Redman DO Primary Care Provider +1- [phone] Encounter Details Date Type Department Care Team (Latest Contact Info) Description 06/22/2022 Travel Social History Tobacco Use Types Packs/Day [...] Author decrease artificial sweeteners Lifestyle No Velia Gibosn MD Note: To 2 servings per day (crystal lite or propel) tracking food intake Lifestyle No Velia Gibson MD Note: Already doing this (09/17/2019). Don't add in extra calories for calories you burn with exercise. documented as of this encounter Visit Diagnoses Not on filedocumented in this encounter Care Teams Entry Level Staff Accountant Relationship Specialty Start Date End Date Medardo Redman DO [address] [place] [address] PCP - General Family Medicine 06/22/21 documented as of this encounter
--- OUTSIDE RECORDS SUMMARY | 2024-01-13 18:54 | XMS_ITS | Encounter Summary ---
Author Organization Replaced By [facility] Address [facility] [place] [address] Care Team Providers Care Newspaper Writer Name Role Phone Feroz Medardo Chatterjee Primary Care Provider [phone]- [phone] Reason for Visit * Consultation (Urgent) - Closed Specialty Diagnoses / Procedures Referred By Contjaqueline t Referred To Contact Neurology Diagnoses Cavernous malformation Maddy Leahy APRN [facility] [place] [address] [facility] [address] [place] [address] Referral ID Status Reason Start Date Expiration Date V isits Requested Visits Authorized [id number] Closed Consult, Test & Treat 08/24/2022 08/24/2023 1 1 Encounter Details Date Type Department Care Team (Late st Contact Info) Description 09/19/2022 1:00 PM EDT [place] [address] Christopher Carrillo MD [facility] [place] [address] Eddie Rios MD [facility] [place] [address] Chronic migraine without aura without status migrainosus, not intractable; Transient alteration of awareness Social History Tobacco [...] Sign Reading Time Taken Comments Blood Pressure 122/74 09/19/2022 12:47 PM EDT Pulse 79 09/19/2022 12:47 PM EDT Temperature - - Respiratory Rate - - Oxygen Saturation - - Inhaled Oxygen Concentration - - Weight 122.5 kg (270 lb) 09/19/2022 12:47 PM EDT Height 170.2 cm (5' 7) 09/19/2022 12:47 PM EDT Body Mass Index 42.29 09/19/2022 12:47 PM EDT documented in this encounter Progress Notes * Eddie Rios MD - 09/19/2022 1:00 PM EDT NEUROLOGY EPILEPSY CLINIC NOTE DATE OF SERVICE: 09/19/2022 Demographics: Name of the Patient: Kimberli Bales Date of : 1985 Sex: female Handedness: right handed Seizure Onset Age: [age] SUBJECTIVE: History of Present Illness: The patient is a 36 y.o. right handed female with PMHx migraine headache, IIH, glaucoma, ELMA who follows for for management of [...] follow-up and seen by a Neurologist in [place] with seeming increase of Keppra to 500/1000mg [...] return to baseline with ongoing stuttering speech. Interval History: Patient reports that following her surgery she had a drastic improvement in episodes but in the last 1-2 months has had a dramatic increase in the frequency of these events. All events are associatedwith headache described as a sharp pain over her R occiput with associated nausea. No clear aura with events, sometimes will have vague feeling of fatigue and malaise prior to becoming unresponsive. Per her during these events she will appear tense like she is in pain, and sometimes will have non-rhythmic movements with both arms as though she is reaching for things. Remains unresponsive for up to 2 minutes after which she seems very drowsy and has ongoing severe headache. Headache has been responsive to Sumatriptan however ran out of this recently; was seen in local ER around 2 weeks prior to this visit and was prescribed prochlorperazine which was not helpful and did not want tocontinue taking this after looking it up and finding it was an antipsychotic. Current Seizure Description and Frequency: Seizure Type A: Unresponsiveness [...] medications: Current? Dose Reason for D/C? Levetiracetam yes 500/1000mg Topirimate yes 100mg BID Psychiatric History: -anxiety [...] negative cultures. If sx develop check Micro, SKILLS AUDITOR or stone. Environmental and seasonal allergies Epilepsy [...] Smoking status: Former Packs/day: 0.25 Years: 2.00 Pack years: 0.50 Types: Cigarettes Quit date: 10/17/2017 Years since quittin.9 Smokeless tobacco: Never Vaping Use Vaping Use: [...] on file Physical Activity: Not on file Housing Stability: Not on file Allergies: Allergies Allergen Reactions Oxycodone-Acetaminophen Shortness Of Breath Red Dye Other (See Comments) Stops heart Medications: Current Outpatient Medications: pantoprazole EC (Protonix) [address] tablet, Take 40 mg by mouth daily. FOR 90 DAYS, Disp: , Rfl: busPIRone (Buspar) 5 mg Tablet, Take 10 mg by mouth 3 times daily., Disp: , Rfl: topiramate (Topamax) 100 mg Tablet, Take 100 mg by mouth 2 times daily., Disp: , Rfl: levETIRAcetam (KEPPRA) 1,000 mg Tablet, Take 1,000 mg by mouth 2 times daily. 500 mg in morning surekha 1000 mg at ningt, Disp: , Rfl: albuteroL 90 mcg/actuation HFA Aerosol Inhaler, Inhale 1 puff into the lungs every 4 hours as needed for Wheezing. Use with spacer, Disp: , Rfl: fluticasone propionate (Flonase) 50 mcg/actuation [place], Suspension, 2 sprays by Each Nare route [...] as needed for Pain., Disp: , Rfl: SUMAtriptan (Imitrex) 100 mg tablet, TAKE ONE TABLET BY MOUTH EVERY 24 HOURS NEEDED FOR HEADACHE,MAY REPEAT AFTER 2 HOURS (USE DIRECTED) FOR 30 DAYS, Disp: 10 tablet, Rfl: 5 Family History: Family History Problem Relation Age [...] Neg Hx OBJECTIVE: Physical Exam VITALS: BP 122/74 (BP Location (NBP): Right arm, Patient Position: Sitting, BP Cuff Sizes: Adult (25-34 cm)) Pulse 79 Ht 170.2 cm (5' 7) Wt 122.5 kg (270 lb) LMP 01/18/2014 Comment: tubal ligation BMI 42.29 kg/m?? General: Sitting in chair. No acute distress. Cardiovascular: S1 and S2. Regular rate and rhythm, no murmurs, rubs, or gallops. No carotid bruits. Respiratory: clear to auscultation bilaterally Mental Status: Alert and oriented to person, place, and time. Language fluent with intact naming and comprehension. When asked to repeat no ifs, ands, or buts, states no whens, ifs, or buts. No dysarthria or aphasia. Follows multi- step commands. Cranial Nerves: Pupils were 4 mm [...] PF Coordination: There was no dysmetria on pfmiob-flxg-lfkseg. Jdzp-qw-kcbv was normal bilaterally. Sensation: symmetric to light touch in all extremities. Absent to vibration in RLE toes, intact at ankle. Intact in LLE. Reflexes: 2+ and symmetric in biceps, triceps, brachioradialis, patella and achilles. No cross adductors, pectoralis spread, or Oshea??s sign. No ankle clonus. Toes downgoing bilaterally. Romberg negative. Gait: Able to stand from bed without assistance, normal stance, stride length, arm swing, and turn,able to toe-walk, heel-walk and tandem. ASM Levels and Pertinent Labs: No results found for: KEPPRA No results found for: VALPROATE No results found for: LAMOTRIGINE No results found for: PHENYTOIN No results [...] will increase the sensitivity of the test. ASSESSMENT AND PLAN: 1. Chronic migraine without aura without status migrainosus, not intractable 2. Transient alteration of awareness 36 y.o. female with PMHx HTN, ELMA, migraine, IIH, psychogenic episodes who [facility] for headache and spells of impaired awareness. Patient's description of events is not highly concerning for seizure and appears more consistent with a physiologic impairment of awareness in setting of worsening headaches and severe pain. There is seeming new associated reaching movements of BUE and change in headache position compared to previous events which ideally would be characterized on EEG. Additionally, patient has been on chronic management with Topirimate which should be discontinued in setting of known diagnosis of glaucoma to prevent permanent visual deficit. Given these factors will plan for EMU admission for characterization of these events and wean of medications - if EEG is normal during events may remain off anti-seizure medications. May also consider additional headache treatment such as propranolol, occipital nerve block; patient has previously tried multiple ther apies including Botox, Emgality and may be best served by longterm follow-up in headache specialtyclinic after events are characterized. In the interim, will refill patient's prescription for Imitrex as this was effective for management of headaches. Patient to return following EMU admission in 2-3 months. EMU Admission - medication titration and characterization of events Refill Imitrex 100mg PRN RTC 2-3 months following EMU admissionBu The case was discussed with the attending physician, Dr. Carrillo, who agreed to the above-mentioned plan. Please do not hesitate to contact with us if you need any further information. Sincerely, Eddie Rios MD Neurology (Staff) Addendum I saw and evaluated the patient. I have reviewed the resident's history, physical examination findings, assessment and plan during the visit and I agree with the details as written, unless otherwise specified as below. Christopher Carrillo MD documented in this encounter Plan of [...] without aura without status migrainosus, not intractable Chronic migraine without aura, without mention of intractable migraine without mention of status migrainosus Transient alteration of awareness documented in this encounter Care Teams Newspaper Writer Relationship Specialty Start Date End Date Medardo Redman DO [address] [place] [address] PCP - General Family Medicine 06/22/21 documented as of this encounter
--- OUTSIDE RECORDS SUMMARY | 2024-01-13 18:54 | XMS_ITS | Encounter Summary ---
[place] [address] Care Team Providers Care Interior Horticulturist Name Role Phone Feroz Medardo Sen OLSEN Primary Care Provider [phone]- [phone] Reason for Referral * Diagnostic Test (Routine) - Denied Specialty Diagnoses / Procedures Referred By Contac t Referred To Contact Radiology Diagnoses Cavernous malformation Procedures MRI Brain wwo Contrast (Generic) Robert Rossi PA [facility] [place] [address] [place] [address] Referral ID Status Reason Start Date Expiration Date V isits Requested Visits Authorized [id number] Denied Specialty Service Requested 06/28/2021 12/29/2022 1 0 Encounter Details Date Type Department Care Team (Late st Contact Info) Description 06/28/2021 Orders [place] [address] Robert Rossi PA [facility] [place] [address] Cavernous malformation Social History Tobacco Use Types [...] with exercise. documented as of this encounter Results * MRI Brain wwo Contrast (Generic) (06/22/2022 10:35 AM EDT) Anatomical Region Laterality Modality Head Magnetic Resonan ce Impressions 06/22/2022 3:42 PM EDT Interval evolution of blood products within otherwise stable left frontal cavernous malformation at the center of an unchanged developmental venous anomaly. Thank you for letting us participate in the care of this patient. ??If you are a health care provider and have any questions regarding this report, please contact the number below. ??For patients who have questions please contact the health direct care specialist that requested your imaging first. ? Narrative 06/22/2022 3:42 PM EDT EXAMINATION: MRI BRAIN WWO CONTRAST (GENERIC) CLINICAL HISTORY: Brain/CLINICIAN ONCOLOGY neoplasm, assess treatment response s/p LEFT stereotactic ablation for cavernoma TECHNIQUE: MRI of the brain was performed before and after the intravenous administration of 27cc Dotarem. COMPARISON: MRI brain June 22, 2021 FINDINGS: Interval evolution of blood products within otherwise stable 1.0 x 0.9 cm predominantly peripherally enhancing left frontal lesion, presumed cavernous malformation, at the center of an unchanged developmental venous anomaly. A few punctate, nonspecific T2 hyperintense supratentorial white matter foci are unchanged. Otherwise no abnormal brain parenchymal signal, susceptibility, enhancement or restricted diffusion. No midline shift, mass effect, hydrocephalus or extra-axial collection. Expected intracranial vascular flow voids are preserved. Well-circumscribed benign appearing right parietal scalp lesion, likely dermal inclusion cyst, unchanged. Normal marrow signal. Scattered paranasal sinus mucosal thickening. Minimal right mastoid fluid. Procedure Note Carol Long MD - 06/22/2022 EXAMINATION: MRI BRAIN WWO CONTRAST (GENERIC) CLINICAL HISTORY: Brain/CLINICIAN ONCOLOGY neoplasm, assess treatment response s/p LEFT stereotactic ablation for cavernoma TECHNIQUE: MRI of the brain was performed before and after the intravenousadministration of 27cc Dotarem. COMPARISON: MRI brain June 22, 2021 FINDINGS: Interval evolution of blood products within otherwise stable 1.0 x 0.9cm predominantly peripherally enhancing left frontal lesion, presumedcavernous malformation, at the center of an unchanged developmental venousanomaly. A few punctate, nonspecific T2 hyperintense supratentorial white matterfoci are unchanged. Otherwise no abnormal brain parenchymal signal, susceptibility,enhancement or restricted diffusion. No midline shift, mass effect, hydrocephalus or extra-axial collection. Expected intracranial vascular flow voids arepreserved. Well-circumscribed benign appearing right parietal scalp lesion, likelydermal inclusion cyst, unchanged. Normal marrow signal. Scattered paranasalsinus mucosal thickening. Minimal right mastoid fluid. IMPRESSION Interval evolution of blood products within otherwise stable leftfrontal cavernous malformation at the center of an unchanged developmentalvenous anomaly. Thank you for letting us participate in the care of this patient. If youare a health care provider and have any questions regarding this report,please contact the number below. For patients who have questions please contactthe health direct care specialist that requested your imaging first. 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
--- OUTSIDE RECORDS SUMMARY | 2024-01-13 18:54 | XMS_ITS | Encounter Summary ---
[place] [address] Care Team Providers Care Boat Motor Mechanic Name Role Phone Medardo Redman DO Primary Care Provider [phone]- [phone] Reason for Visit * Auth/Cert (Routine) Specialty Diagnoses / Procedures Referred By Stacy t Referred To Contact Diagnoses Seizure-like activity Refractory Seizures Eusebia Salguero MD [facility] [place] [address] [facility] Referral ID Status Reason Start Date Expiration Date Visits Re quested Visits Authorized [id number] 1 1 Encounter Details Date Type Department Care Team (Late st Contact Info) Description 09/24/2022 11:44 AM EDT - 09/24/2022 3:03 PM EDT Hospital [place] [address] Medardo Redman, DO [address] [place] [id number] Discharge Disposition: Home Social History Tobacco Use Types Packs/Day Years Used Date Smoking Tobacco: Former Cigarettes 0.3 2 0 10/18/2015 - 10/17/2017 Smokeless Tobacco: Never Alcohol Use Standard Drinks/Week Comments Not Currently 0 (1 standard drink = 0.6 oz pur e alcohol) [facility] Inpatient Questions Answer Date Recorded Does Anyone Try to Keep You From Having Contact with Others or Doing Things Outside Your Home? no 09/25/2022 Feels Threatened by Someone no 080 09/2022 Feels Unsafe at Home or Work/School no 09/25/2022 Physical Signs of Abuse Present no 09/25/2022 Sex and Gender Information Value Date Recorded Sex Assigned at Not on file Gender Identity Not on file Sexual Orientation Not on file documented as of this encounter Medications at Time of Discharge Medication Sig Dispensed Refills Start Date End Date pantoprazole EC (Protonix) [address] tablet [...] with spacer fluticasone propionate (Flonase) 50 mcg/actuation [place], Suspension 2 sprays by Each Nare route [...] every 6 hours as needed for Pain. levETIRAcetam (KEPPRA) 1,000 mg Tablet Take 1,000 mg by mouth 2 times daily. 500 mg in morning and a 1000 mg at ningt 09/28/2022 documented as of this encounter Plan of [...] Diagnosis Comments MRI BRAIN WO CONTRAST Routine 09/24/2022 2:30 PM EDT Seizure documented in this encounter Results * MRI Brain wo Contrast (09/24/2022 2:30 PM EDT) Anatomical Region Laterality Modality Head Magnetic Resonan ce Impressions 09/24/2022 5:09 PM EDT 1. ??No significant interval change since 06/22/2022. 2. ??Stable blood products in the left frontal lobe at the cavernous malformation ablation site with a stable adjacent developmental venous anomaly. Thank you for letting us participate in the care of this patient. ??If you are a health care provider and have any questions regarding this report, please contact the number below. ??For patients who have questions please contact the health healthcare customer service that requested your imaging first. ? Electronically signed by: Nathanael Hurtado MD, [facility] ([phone]), at 09/24/2022 5:09 PM Narrative 09/24/2022 5:09 PM EDT EXAMINATION: MRI BRAIN WO CONTRAST CLINICAL HISTORY: seizures TECHNIQUE: MRI of the brain performed without intravenous contrast administration. COMPARISON: MRI brain 06/22/2022 FINDINGS: Prior left frontal dayami hole craniotomy for known prior ablation of left frontal cavernous malformation. Blood products are again noted at the treated site, similar to 06/22/2022. Stable adjacent developmental venous anomaly. No blood products or mass elsewhere. No hydrocephalus midline shift or acute infarct. Procedure Note Nathanael Hurtado MD - 09/24/2022 EXAMINATION: MRI BRAIN WO CONTRAST CLINICAL HISTORY: seizures TECHNIQUE: MRI of the brain performed without intravenous contrast administration. COMPARISON: MRI brain 06/22/2022 FINDINGS: Prior left frontal dayami hole craniotomy for known prior ablation of leftfrontal cavernous malformation. Blood products are again noted at the treatedsite, similar to 06/22/2022. Stable adjacent developmental venous anomaly. No blood products or mass elsewhere. No hydrocephalus midline shift oracute infarct. IMPRESSION 1. No significant interval change since 06/22/2022. 2. Stable blood products in the left frontal lobe at the cavernousmalformation ablation site with a stable adjacent developmental venous anomaly. Thank you for letting us participate in the care of this patient. If youare a health care provider and have any questions regarding this report,please contact the number below. For patients who have questions please contactthe health healthcare customer service that requested your imaging first. Electronically signed by: Nathanael Hurtado MD, [facility]([phone]), at 09/24/2022 5:09 PM Medardo Redman DO IMG MRI ORDERABLES documented in this encounter Visit Diagnoses Not on filedocumented in this encounter Care Teams Boat Motor Mechanic Relationship Specialty Start Date End Date Medardo Redman DO [address] [id number] PCP - General Family Medicine 06/22/21 documented as of this encounter
--- OUTSIDE RECORDS SUMMARY | 2024-01-13 18:54 | XMS_ITS | Encounter Summary ---
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 have experienced an episode of loss of consciousness due to a seizure you cannot drive for a minimum of 1 year or until cleared by your physician. We strongly recommend that you avoid driving cars, recreational vehicles or heavy machinery and seek alternate transportation. [[place] SAF-C 205.08] For more information, please visit [email or web address] [place] Residents: According to [place] driving laws, after you have experienced an episode of lossof consciousness due to a seizure you may not be able drive until cleared by your physician with final approval depending upon the [place] Commissioner. We strongly recommend that you avoid driving cars, recreational vehicles or heavy machinery and seek alternate transportation. [Statute: 23 [place]. STAT. IV[place]. ? 636-37] For more information, please visit [email or web address] Diet: As before. For questions regarding this document or issues relating to this hospitalization on the Neurology Service, please contact your inpatient physician through the [facility] Leisure Travel Agent . Issues after hours and on weekends will be handled by the Neurology staff on-call. General Instructions None Future Appointments and Orders Future Appointments and Orders Future Appointments Provider Department Dept Phone 12/20/2022 1:00 PM Eddie Rios MD Neurology at [facility] Arrive at: [facility] [phone] Primary Care Provider: Medardo Redman DO [address] [place] [address] / [facility] [id number] Discharge References/Attachments None documented in this encounter Discharge Instructions * Patient Instructions* Elyse Phillips, MANAGER OF BUSINESS OPERATIONS - 09/28/2022 12:14 PM EDT After Visit Summary: (Please ensure patient gets a copy of their full discharge summary as well.) We hope that you have had a positive experience at the [facility] Epilepsy Monitoring Unit. Here is some general information about the details of your stay, and what comes next. YOUR DIAGNOSIS: This admission was non diagnostic. Your EEG was normal and we did not capture any seizures. This does not mean that you do not have seizures. We feel you should stop the Keppra as this caused mood changes. After our discussion, it was decided for you to resume topiramate at the samehome dose of 100 mg twice a day. This medication helps both seizures and headaches. Since you were off of medications for a period of time: You may be at risk for having a seizure when you go home. Make sure someone who knows about your seizures stays with you and knows what to do in case you have one. You may initially have side effects from going back on medications even though you were on them before. Be careful when engaging in any activities. You may have memory problems and forget some of the instructions given to you or the answers to questions that you may have had about your stay. Refer to your discharge paperwork for instructions. Write down your questions to bring to your follow up appointment. MEDICATIONS CHANGES: Stop Keppra Always take your medication as prescribed by your physician. Ask your nurse to help you arrange a convenient schedule for taking your medication. Learn how to obtain medication refills. Get a Medic Alert bracelet, necklace or card from your pharmacy and always carry it with you. Carry the telephone numbers of your doctor and your hospital and a list of your medications in caseyou should suddenly need emergency medical treatment. Seizure medications have side effects. You should discuss side effects with your provider. Most epilepsy medications have similar ???brain related?? side effects which include sleepiness, dizziness,mood changes, balance problems, memory problems and vision problems. Some may cause weight changes.You may also obtain printed information about side effects of your medication. Check with your provider before taking [id number] medications or herbal therapies. These can interfere with how well your seizure medications work. FOLLOWUP APPOINTMENT: You will have an outpatient followup appointment in the neurology clinic at [facility]. If not already listed in this document, we will contact you to schedule this appointment. -- If 1 week passes by after you are discharged and you still do not have an appointment, please call [phone]. Future Appointments and Orders Future Appointments and Orders Future Appointments Provider Department Dept Phone 12/20/2022 1:00 PM Eddie Rios MD Neurology at [facility] Arrive at: [facility] Area 3C [phone] Specific instructions related to your condition: Call your doctor or seek medical attention if you experience an event lasting more than 5 minutes. Advise your family and friends that if you have an episode, they should position you on a flat carpeted surface if possible, in a clear area, to avoid injury. They should turn you on your side if youstart to vomit. Keep track of the date and time the event started, how long it lasted, whether or not you lost consciousness, a description of your body movements, what provoked it (if known), and any injuries you suffered. Activity restrictions:To minimize your risk of injury, we recommend the following: Take showers instead of baths. Do not swim unsupervised. Avoid scuba diving and other underwater activities. Avoid hazardous activities such as mountain climbing, fires, and activities involving heights. Avoid using heavy machinery, such as chainsaws. [place], after you have experienced an episode of loss of consciousness due to a seizure you cannot drive for a minimum of 1 year or until cleared by your physician. We strongly recommend that you avoid driving cars, recreational vehicles or heavy machinery and seek alternate transportation. [[place]-C 205.08] For more information, please visit [email or web address] Residents: According to [place] driving laws, after you have experienced an episode of lossof consciousness due to a seizure you may not be able drive until cleared by your physician with final approval depending upon the [place] Commissioner. We strongly recommend that you avoid driving cars, recreational vehicles or heavy machinery and seek alternate transportation. [Statute: 23 [place] STAT. IV[place]. ? 636-37] For more information, please visit [email or web address] Diet: As before. For questions regarding this document or issues relating to this hospitalization on the Neurology Service, please contact your inpatient physician through the [facility] Leisure Travel Agent . Issues after hours and on weekends will be handled by the Neurology staff on-call. documented in this encounter Medications at Time of Discharge [...] with spacer fluticasone propionate (Flonase) 50 mcg/actuation [place], Suspension 2 sprays by Each Nare route [...] every 6 hours as needed for Pain. documented as of this encounter Progress Notes * Anastasia Lauren MD - 09/28/2022 8:40 AM EDT [facility] EPILEPSY MONITORING UNIT- PROGRESS NOTE Kimberli Bales: 36 y.o.: [id number]: 09/28/22 Interval History: Doing well this morning, denies events overnight Headache in occipital region rated 4/10 EEG negative for epileptiform discharges Eager for discharge today MEDS busPIRone (Buspar) tablet 10 mg citalopram (CeleXA) tablet 40 mg lisinopriL (Zestril) tablet 40 mg pantoprazole EC (Protonix) tablet 40 mg SUMAtriptan (Imitrex) tablet 100 mg sodium chloride 0.9 % (flush) (BD PosiFlush Normal Saline 0.9) flush 5 mL sodium chloride 0.9 % (flush) (BD PosiFlush Normal Saline 0.9) flush 5-20 mL lidocaine (Xylocaine) 1% (10 mg/mL) injection 3 mg LORazepam (Ativan) (2 mg/mL) injection 2 mg OR midazolam (pf) (Versed) (5 mg/mL) injection 5 mg acetaminophen (Tylenol) tablet 975 mg enoxaparin (Lovenox) (40 mg/0.4 mL) subcutaneous injection 40 mg Physical Exam: Blood pressure 118/72, temperature 36.8 ??C (98.2 ??F), temperature source Oral, resp. rate 16, height 170.2 cm (5' 7), weight 132.1 kg (291 lb 3.2 oz), last menstrual period 01/18/2014, SpO2 97 %. Vitals: Blood pressure 118/72, temperature 36.8 ??C (98.2 ??F), temperature source Oral, resp. rate16, height 170.2 cm (5' 7), weight 132.1 kg (291 lb 3.2 oz), last menstrual period 01/18/2014, SpO2 97 %. General: Patient of apparent stated age, well nourished, well developed, NAD Psych: Mood pleasant, Behavior appropriate Derm: No obvious rash Extremities: Full ROM. HEENT: Normocephalic, atraumatic Neuro: Alert and orientented Speech and language fluent, no dysarthria EOMI,no nystagmus Symmetric smile, eyelids closed equally Hearing grossly intact. Normal tone and bulk. Gross and fine motor intact No obvious tremor or abnormal movements Gait deferred Assessment: Kimberli Bales is a 36 y.o. y/o female with pertinent reported PMHx of ELMA, IIH, glaucoma, and LEFT frontal cavernous malformation s/p ODALYS who presents for video EEG monitoring for further evaluation and characterization of events. We will plan for continuous EEG monitoring. 09/28/2022 Hold AM [place], continue EEG monitoring. No epileptiform events overnight. Continues to denies events and severe headache. Plan for discharge today. In order to precipitate seizure activity antiepileptic medication will be withheld. This places thepatient at a high risk for seizures and status epilepticus, warranting inpatient admission for close monitoring and safety precautions. Plan: Admit to neurology 24 hour Video EEG monitoring Seizure precautions If no seizure by HD2: Photic, HV, Sleep Deprive Basic labs on admission, including AED levels Prophylaxis: Tylenol for for pain SCDs, Lovenox, ambulate frequently to prevent DVTs. ASM Plan ASMs HOLD home levetiracetam Discontinue Topiramate 50 mg PO BID Other Meds: Continue remaining home medications Tentative rescue plan (subject to change per provider): Acute repetitive seizures 2mg IV Ativan after 1 GTC or 3 focal with impaired awareness (complex partial) seizures in 24 hours. If No IV access: give 5mg intranasal midazolam as alternative If progression to status Epilepticus: Any GTC longer than 5 minutes or focal with impaired awareness seizure longer than 10 minutes First line: 4mg IV ativan Second line: Vimpat 400mg IV Nursing seizure exam plan: Standard Exam: Assess A&O status, give code word for later recall, follow simple/complex commands, assess language, strength/motor function. BMI 42 kg/m^2 , Obesity Class III Dispo Planning Pending Course Anastasia Lauren MD 09/28/22 Associated attestation - Eusebia Salguero MD - 09/28/2022 6:00 PM EDT Attending Physician Attestation I saw and evaluated the patient with the resident in person. I have reviewed the medical records and the patient's history during the visit and I agree with the details as written. My physical examination confirms the residents's findings. The assessment and plan were formulated in discussion with me at the time of the visit and I agree with them as documented. Eusebia Salguero, Professor of Neurology Chair, Department of Neurology * Anastasia Lauren MD - 09/27/2022 7:34 AM EDT [facility] EPILEPSY MONITORING UNIT- PROGRESS NOTE Kimberli Bales: 36 y.o.: [id number]: 09/27/22 Interval History: Doing well this morning, denies events overnight Reports good sleep overnight and minor occipital headache rated 3/10 this morning. EEG negative for epileptiform discharges MEDS topiramate (Topamax) tablet 50 mg busPIRone (Buspar) tablet 10 mg citalopram (CeleXA) tablet 40 mg lisinopriL (Zestril) tablet 40 mg pantoprazole EC (Protonix) tablet 40 mg SUMAtriptan (Imitrex) tablet 100 mg sodium chloride 0.9 % (flush) (BD PosiFlush Normal Saline 0.9) flush 5 mL sodium chloride 0.9 % (flush) (BD PosiFlush Normal Saline 0.9) flush 5-20 mL lidocaine (Xylocaine) 1% (10 mg/mL) injection 3 mg LORazepam (Ativan) (2 mg/mL) injection 2 mg OR midazolam (pf) (Versed) (5 mg/mL) injection 5 mg acetaminophen (Tylenol) tablet 975 mg enoxaparin (Lovenox) (40 mg/0.4 mL) subcutaneous injection 40 mg Physical Exam: Blood pressure 110/68, temperature 36.8 ??C (98.2 ??F), temperature source Oral, resp. rate 17, height 170.2 cm (5' 7), weight 132.1 kg (291 lb 3.2 oz), last menstrual period 01/18/2014, SpO2 97 %. Vitals: Blood pressure 110/68, temperature 36.8 ??C (98.2 ??F), temperature source Oral, resp. rate17, height 170.2 cm (5' 7), weight 132.1 kg (291 lb 3.2 oz), last menstrual period 01/18/2014, SpO2 97 %. General: Patient of apparent stated age, well nourished, well developed, NAD Psych: Mood pleasant, Behavior appropriate Derm: No obvious rash Extremities: Full ROM. HEENT: Normocephalic, atraumatic Neuro: Alert and orientented Speech and language fluent, no dysarthria EOMI,no nystagmus Symmetric smile, eyelids closed equally Hearing grossly intact. Normal tone and bulk. Gross and fine motor intact No obvious tremor or abnormal movements Gait deferred Assessment: Kimberli Bales is a 36 y.o. y/o female with pertinent reported PMHx of ELMA, IIH, glaucoma, and LEFT frontal cavernous malformation s/p ODALYS who presents for video EEG monitoring for further evaluation and characterization of events. We will plan for continuous EEG monitoring. 09/27/2022 Hold AM Keppra, continue EEG monitoring. No epileptiform events overnight. Patient feels she will not have a headache given low stress environment, plan to discontinue Topiramate 50mg BID and today In order to precipitate seizure activity antiepileptic medication will be withheld. This places thepatient at a high risk for seizures and status epilepticus, warranting inpatient admission for close monitoring and safety precautions. Plan: Admit to neurology 24 hour Video EEG monitoring Seizure precautions If no seizure by HD2: Photic, HV, Sleep Deprive Basic labs on admission, including AED levels Prophylaxis: Tylenol for for pain SCDs, Lovenox, ambulate frequently to prevent DVTs. ASM Plan ASMs HOLD home levetiracetam Discontinue Topiramate 50 mg PO BID Other Meds: Continue remaining home medications Tentative rescue plan (subject to change per provider): Acute repetitive seizures 2mg IV Ativan after 1 GTC or 3 focal with impaired awareness (complex partial) seizures in 24 hours. If No IV access: give 5mg intranasal midazolam as alternative If progression to status Epilepticus: Any GTC longer than 5 minutes or focal with impaired awareness seizure longer than 10 minutes First line: 4mg IV ativan Second line: Vimpat 400mg IV Nursing seizure exam plan: Standard Exam: Assess A&O status, give code word for later recall, follow simple/complex commands, assess language, strength/motor function. BMI 42 kg/m^2 , Obesity Class III Dispo Planning Pending Course Anastasia Lauren MD 09/27/22 Associated attestation - Eusebia Salguero MD - 09/27/2022 9:55 PM EDT Attending Physician Attestation I saw and evaluated the patient with the resident in person. I have reviewed the medical records and the patient's history during the visit and I agree with the details as written. My physical examination confirms the residents's findings. The assessment and plan were formulated in discussion with me at the time of the visit and I agree with them as documented. Eusebia Salguero, Professor of Neurology Chair, Department of Neurology * Deanna Mello RN - 09/27/2022 1:21 AM EDT Care assumed at midnight. Pt. Here for video eeg monitoring. No overt seizure activity at this time. * Chase Ruiz RN - 09/26/2022 6:59 PM EDT OUTCOME EVALUATION NOTE: OUTCOME SUMMARY: Pt A&Ox4, AVSS on RA. No events noted. Patient misses family and home. Seizure and safety precaution maintained. PLAN MOVING FORWARD: VS q8 Monitor for seizure Maintain Safety DC Planning INDIVIDUALIZED FALL PREVENTION INTERVENTIONS: Patient-specific fall risk factors per assessment: ?seizure, Devices, wires/tubes, tapering of ASM's Assistance: SBA Supervision: Eyes on, Arms reach, Hands on Surveillance: Bed locked in low position, call eubanks within reach, purposeful hourly rounding, clutter free environment, bed/chair alarm on Patient-specific fall prevention interventions for sensory deficits provided: N/A CPG GOAL OUTCOME EVALUATION: Continue care plan as documented. * Eusebia Salguero MD - 09/26/2022 7:12 AM EDT [facility] EPILEPSY MONITORING UNIT- PROGRESS NOTE Kimberli Bella Amairani: 36 y.o.: [id number]: 09/26/22 Interval History: Doing well this morning, denies events overnight Reports good sleep overnight and no headaches. Describes hospital as [facility] and is unsure whether she will have an event given low stress environment EEG negative for epileptiform discharges MEDS busPIRone (Buspar) tablet 10 mg citalopram (CeleXA) tablet 40 mg lisinopriL (Zestril) tablet 40 mg pantoprazole EC (Protonix) tablet 40 mg SUMAtriptan (Imitrex) tablet 100 mg topiramate (Topamax) tablet 100 mg sodium chloride 0.9 % (flush) (BD PosiFlush Normal Saline 0.9) flush 5 mL sodium chloride 0.9 % (flush) (BD PosiFlush Normal Saline 0.9) flush 5-20 mL lidocaine (Xylocaine) 1% (10 mg/mL) injection 3 mg LORazepam (Ativan) (2 mg/mL) injection 2 mg OR midazolam (pf) (Versed) (5 mg/mL) injection 5 mg acetaminophen (Tylenol) tablet 975 mg enoxaparin (Lovenox) (40 mg/0.4 mL) subcutaneous injection 40 mg Physical Exam: Blood pressure 120/74, temperature 36.7 ??C (98.1 ??F), temperature source Oral, resp. rate 19, height 170.2 cm (5' 7), weight 132.1 kg (291 lb 3.2 oz), last menstrual period 01/18/2014, SpO2 97 %. Vitals: Blood pressure 120/74, temperature 36.7 ??C (98.1 ??F), temperature source Oral, resp. rate19, height 170.2 cm (5' 7), weight 132.1 kg (291 lb 3.2 oz), last menstrual period 01/18/2014, SpO2 97 %. General: Patient of apparent stated age, well nourished, well developed, NAD Psych: Mood pleasant, Behavior appropriate Derm: No obvious rash Extremities: Full ROM. HEENT: Normocephalic, atraumatic Neuro: Alert and orientented Speech and language fluent, no dysarthria EOMI,no nystagmus Symmetric smile, eyelids closed equally Hearing grossly intact. Normal tone and bulk. Gross and fine motor intact No obvious tremor or abnormal movements Gait deferred Assessment: Kimberli Bales is a 36 y.o. y/o female with pertinent reported PMHx of ELMA, IIH, glaucoma, and LEFT frontal cavernous malformation s/p ODALYS who presents for video EEG monitoring for further evaluation and characterization of events. We will plan for continuous EEG monitoring. 09/26/2022 Hold AM Keppra, continue EEG monitoring. No epileptiform events overnight. Given that patient jamal will not have a headache given low stress environment, will plan to reduce Topiramate to 50mg BID and discontinue tomorrow. In order to precipitate seizure activity antiepileptic medication will be withheld. This places thepatient at a high risk for seizures and status epilepticus, warranting inpatient admission for close monitoring and safety precautions. Plan: Admit to neurology 24 hour Video EEG monitoring Seizure precautions If no seizure by HD2: Photic, HV, Sleep Deprive Basic labs on admission, including AED levels Prophylaxis: Tylenol for for pain SCDs, Lovenox, ambulate frequently to prevent DVTs. ASM Plan ASMs HOLD home levetiracetam Reduce Topiramate 50 mg PO BID and d/c tomorrow Other Meds: Continue remaining home medications Tentative rescue plan (subject to change per provider): Acute repetitive seizures 2mg IV Ativan after 1 GTC or 3 focal with impaired awareness (complex partial) seizures in 24 hours. If No IV access: give 5mg intranasal midazolam as alternative If progression to status Epilepticus: Any GTC longer than 5 minutes or focal with impaired awareness seizure longer than 10 minutes First line: 4mg IV ativan Second line: Vimpat 400mg IV Nursing seizure exam plan: Standard Exam: Assess A&O status, give code word for later recall, follow simple/complex commands, assess language, strength/motor function. BMI 42 kg/m^2 , Obesity Class III Dispo Planning Pending Course Attending Physician Attestation I saw and evaluated the patient with the resident in person. I have reviewed the medical records and the patient's history during the visit and I agree with the details as written. My physical examination confirms the residents's findings. The assessment and plan were formulated in discussion with me at the time of the visit and I agree with them as documented. No events so far. Will reduce TPM. Eusebia Salguero, Professor of Neurology Chair, Department of Neurology * Chase Ruiz RN - 09/25/2022 6:33 PM EDT OUTCOME EVALUATION NOTE: OUTCOME SUMMARY: Keppra was discontinued today. No events witnessed. Patient voices that she misses her children. PLAN MOVING FORWARD: Continue monitoring for events. INDIVIDUALIZED FALL PREVENTION INTERVENTIONS: Patient-specific fall risk factors per assessment: EEG monitoring Assistance: SBA Supervision: Eyes on Surveillance: Bed locked in low position, call eubanks within reach, purposeful hourly rounding, clutter free environment, bed/chair alarm on, family at bedside Patient-specific fall prevention interventions for sensory deficits provided: N/A CPG GOAL OUTCOME EVALUATION: Continue care plan as documented. * Elder Turner MD - 09/25/2022 11:41 AM EDT [facility] EPILEPSY MONITORING UNIT- PROGRESS NOTE Kimberli Bales: 36 y.o.: [id number]: 09/25/22 Interval History: Doing well this morning, denies events overnight Reports reasonable sleep overnight, no fevers or chills Appetite stable MEDS busPIRone (Buspar) tablet 10 mg citalopram (CeleXA) tablet 40 mg lisinopriL (Zestril) tablet 40 mg pantoprazole EC (Protonix) tablet 40 mg SUMAtriptan (Imitrex) tablet 100 mg topiramate (Topamax) tablet 100 mg sodium chloride 0.9 % (flush) (BD PosiFlush Normal Saline 0.9) flush 5 mL sodium chloride 0.9 % (flush) (BD PosiFlush Normal Saline 0.9) flush 5-20 mL lidocaine (Xylocaine) 1% (10 mg/mL) injection 3 mg LORazepam (Ativan) (2 mg/mL) injection 2 mg OR midazolam (pf) (Versed) (5 mg/mL) injection 5 mg acetaminophen (Tylenol) tablet 975 mg enoxaparin (Lovenox) (40 mg/0.4 mL) subcutaneous injection 40 mg levETIRAcetam (Keppra) tablet 500 mg Physical Exam: Blood pressure 119/79, temperature 36.8 ??C (98.2 ??F), temperature source Oral, resp. rate 16, height 170.2 cm (5' 7), weight 132.1 kg (291 lb 3.2 oz), last menstrual period 01/18/2014, SpO2 98 %. Vitals: Blood pressure 119/79, temperature 36.8 ??C (98.2 ??F), temperature source Oral, resp. rate16, height 170.2 cm (5' 7), weight 132.1 kg (291 lb 3.2 oz), last menstrual period 01/18/2014, SpO2 98 %. General: Patient of apparent stated age, well nourished, well developed, NAD Psych: Mood pleasant, Behavior appropriate Derm: No obvious rash Extremities: Full ROM. HEENT: Normocephalic, atraumatic Neuro: Alert and orientented Speech and language fluent, no dysarthria EOMI,no nystagmus Symmetric smile, eyelids closed equally Hearing grossly intact. Normal tone and bulk. Gross and fine motor intact No obvious tremor or abnormal movements Gait deferred Assessment: Kimberli Bales is a 36 y.o. y/o female with pertinent reported PMHx of ELMA, IIH, glaucoma, and LEFT frontal cavernous malformation s/p ODALYS who presents for video EEG monitoring for further evaluation and characterization of events. We will plan for continuous EEG monitoring. 09/25/2022 Hold AM Keppra, continue EEG monitoring.Plan for HV and photic if able today. In order to precipitate seizure activity antiepileptic medication will be withheld. This places thepatient at a high risk for seizures and status epilepticus, warranting inpatient admission for close monitoring and safety precautions. Plan: Admit to neurology 24 hour Video EEG monitoring Seizure precautions If no seizure by HD2: Photic, HV, Sleep Deprive Basic labs on admission, including AED levels Prophylaxis: Tylenol for for pain SCDs, Lovenox, ambulate frequently to prevent DVTs. ASM Plan ASMs HOLD home levetiracetam Continue Topiramate 100 mg PO BID Other Meds: Continue remaining home medications Tentative rescue plan (subject to change per provider): Acute repetitive seizures 2mg IV Ativan after 1 GTC or 3 focal with impaired awareness (complex partial) seizures in 24 hours. If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 significant. Comments:None ELECTROENCEPHALOGRAPHER'S REPORT Background: The background was continuous and spontaneously reactive composed of normal voltage, 10 to 60 ??V, nicely organized anterior to posterior gradient with frontally predominant beta and posterior alpha frequencies. There was a 9-10 Hz posterior dominant rhythm that attenuated with eye opening. Focal Asymmetries: There were no persistent focal asymmetries. Sleep: Sleep was characterized by decreased myogenic artifact and increased slowing. There were symmetric N2 sleep transients present including sleep spindles and K complexes. Periods of REM were also recorded. Interictal Activity: There were no epileptiform discharges or abnormal movement patterns. Patient Events or Seizures: No patient events or electrographic seizures were recorded. Provocative Maneuvers: Hyperventilation and photic stimulation were performed. Driving was not clearly demonstrated with photic stimulation and no abnormalities developed in response to hyperventilation. EKG: Single-lead EKG was regular. Technical Limitations: None INTERPRETATION: This 24-hour recording of continuous video EEG was normal during the awake, drowsy, and asleep state(s). CLINICAL CORRELATION: This EEG is within normal limits for state and age. Elder Turner MD 09/26/2022 Associated attestation - Eusebia Salguero MD - 09/27/2022 10:02 PM EDT Epilepsy Attending I was the attending physician supervising the fellow in the above care. The videoEEG was reviewed in detail by me together with the fellow. I agree with above report. Eusebia Salguero MD Professor of Neurology [facility] [place] * Elder Turner MD - 09/25/2022 11:43 AM EDTAssociated Order(s): EEG CONTINUOUS MONITORING INPATIENT [facility] Department of Neurology Inpatient Continuous Video EEG Report Name of the Patient: Kimberli Bales Date of : 1985 Date of Service: 09/24/2022 Referring physician: Christopher Carrillo Reading Resident: MD Johnny Reading Attending: MD Jose M Initial time and date cEEG monitoring started: 1900 on 09/24/2022 Daily report EEG start time:1900 on 09/24/22 Daily report EEG end time: 0500 on 09/25/22 Total recording time: Indication for cvEEG: Epilepsy BRIEF HISTORY: Kimberli Bales is a 36 y.o. female with Epilepsy MEDICATIONS: Keppra (Home dose 500/1000) : Decrease to 500 mg night dose. Topirmate 100 mg PO BID PRIOR EEG(s): 10/10/2019 CLINICAL CORRELATION: Normal awake only EEG. The clinical events did not correspond to seizure activity. No epileptiform features observed. A normal EEG does not, of itself alone, exclude epilepsy. If there is a high index of suspicion forepilepsy, consider a prolonged recording that captures sleep to increase the sensitivity of detecting abnormalities. 10/29/2019 CLINICAL CORRELATION: Normal awake and drowsy EEG. No epileptiform discharges, events, or seizures. A normal EEG does notrule out epilepsy. If clinical suspicion remains, a longer study including sleep state will increase the sensitivity of the test. METHODS: A 21 channel digitized continuous electroencephalogram with video was set up and recording started at 1900 on 09/24/2022. Following explanation of the procedure, the 10/20 international system of electrode placement was used to determine electrode placement and disposable MRI conditional electrodes were applied using the paste/collodion method of application. In addition to EEG the patient was monitored for EKG. Video was recorded during the session. SEWING TEACHER'S REPORT: Performed by: Victor Manuel Lantigua At the onset of the recording the patient was awake and cooperative. Movement and other artifact was not significant. Comments:None ELECTROENCEPHALOGRAPHER'S REPORT Background: The background was continuous and spontaneously reactive composed of normal voltage, 10 to 60 ??V, nicely organized anterior to posterior gradient with frontally predominant beta and posterior alpha frequencies. There was a 10 Hz posterior dominant rhythm that attenuated with eye opening. Focal Asymmetries: There were no persistent focal asymmetries. Sleep: Sleep was characterized by decreased myogenic artifact and increased slowing. There were symmetric N2 sleep transients present including sleep spindles and K complexes. Periods of REM were also recorded. Interictal Activity: There were no epileptiform discharges or abnormal movement patterns. Patient Events or Seizures: No patient events or electrographic seizures were recorded. Provocative Maneuvers: Hyperventilation and photic stimulation were not performed. EKG: Single-lead EKG was regular. Technical Limitations: None INTERPRETATION: This 10-hour recording of continuous video EEG was normal during the awake, drowsy, and asleep state(s). CLINICAL CORRELATION: This EEG is within normal limits for state and age. Elder Turner MD 09/25/2022 Associated attestation - Eusebia Salguero MD - 09/25/2022 8:47 PM EDT Epilepsy Attending I was the attending physician supervising the fellow in the above care. The videoEEG was reviewed in detail by me together with the fellow. I agree with above report. Eusebia Salguero MD Professor of Neurology [facility] documented in this encounter Miscellaneous Notes * Care Management Discharge - Gia Fam RN - 09/28/2022 1:03 PM EDT CARE MANAGEMENT FINAL DISCHARGE NOTE Chart reviewed, care reviewed with primary team and at interdisciplinary rounds. Patient is medically ready for discharge to home. Needs for Transition of Care: Plan for discharge is: Home w/o Services Outpatient Agency/Support Group Needs: None Agency Referrals & Follow-up Care: N/A Transportation: spouse Functional status prior to admission: Independent, Patient Drives Self Home Environment: Others in the home: child(amy), minor, spouse, pet(s) (Spouse, two minor daughters and a dog.). Current Living Arrangements: home/apartment/condo. Accessibility Concerns:Two story home with 4 steps and a railing to enter home. Patient confirms she has no difficulty managing stairs.. Current Functional Ability: Independent DME used at home: none DME Needed at Discharge: Patient is insured through: Primary Insurance: MEDICARE Payor: MEDICARE / Plan: MEDICARE PART A & B / Product Type: *No Product type* / Secondary Insurance: MEDICAID [place] Prescription Coverage: Yes This plan was formulated with input from patient,and team. All are in agreement with plan. Fan Fam RN BSN CM Neurology [employer] Accounting Manager of Care Management Pager [phone] * Plan of Care - Oumou Brian RN - 09/28/2022 12:58 PM EDT Kimberli Bales discharged to Home by private car with Patient, Spouse. All belongings sent withpatient. MARCELINO removed,, skin free from pressure ulcers. Discharge instructions, medications, and follow-up appointments reviewed, education provided on medication changes and seizure safety, paper prescriptions given to patient, all questions answered. Patient instructed to call with concerns. * Plan of Care - Deanna Mello RN - 09/27/2022 11:53 PM EDT OUTCOME EVALUATION NOTE: OUTCOME SUMMARY: Patient here for video eeg monitoring. No overt seizure activity noted at this time. PLAN MOVING FORWARD: Continue to monitor for seizure activity. INDIVIDUALIZED FALL PREVENTION INTERVENTIONS: Patient-specific fall risk factors per assessment: Patient here for video eeg monitoring which makes her a higher fall risk. Assistance: SBA Supervision: Arms reach, Surveillance: Bed locked in low position, call eubanks within reach, purposeful hourly rounding, clutter free environment, bed/chair alarm on, Patient-specific fall prevention interventions for sensory deficits provided: N/A CPG GOAL OUTCOME EVALUATION: Continue care plan as documented. * Plan of Care - Oumou Brian RN - 09/27/2022 4:18 PM EDT OUTCOME EVALUATION NOTE: OUTCOME SUMMARY: A&Ox4, VSS on RA. Pt endorsed 05/28 headache. Medications declined. VEEG in place, no sz activity this shift. ASMs held per MD order (see MAR). Up to BR with SBA. Declined oob to chair. Adequate PO intake. SZ precautions maintained. PLAN MOVING FORWARD: Continue to monitor; VEEG, vitals Q6WA. Holding ASMs, awaiting sz event. INDIVIDUALIZED FALL PREVENTION INTERVENTIONS: Patient-specific fall risk factors per assessment: hospital environment, devices. Hospital environment, devices, ?sz activity? Assistance: SBA Supervision: Eyes on Surveillance: Bed locked in low position, call eubanks within reach, purposeful hourly rounding, clutter free environment, bed/chair alarm on Patient-specific fall prevention interventions for sensory deficits provided: Yes CPG GOAL OUTCOME EVALUATION: Continue care plan as documented. * Plan of Care - Moreila Bay RN - 09/27/2022 12:02 AM EDT Problem: Adult Inpatient Plan of Care Goal: Plan of Care Review Outcome: Ongoing (Interventions Implemented as Appropriate) Goal: Patient-Specific Goal (Individualized) Outcome: Ongoing (Interventions Implemented as Appropriate) Goal: Absence of Hospital-Acquired Illness or Injury Outcome: Ongoing (Interventions Implemented as Appropriate) Goal: Optimal Comfort and Wellbeing Outcome: Ongoing (Interventions Implemented as Appropriate) Goal: Readiness for Transition of Care Outcome: Ongoing (Interventions Implemented as Appropriate) Problem: Fall Injury Risk Goal: Absence of Fall and Fall-Related Injury Outcome: Ongoing (Interventions Implemented as Appropriate) Problem: Seizure, Active Management Goal: Absence of Seizure/Seizure-Related Injury Outcome: Ongoing (Interventions Implemented as Appropriate) * Plan of Care - Chase Ruiz RN - 09/26/2022 9:38 AM EDT Problem: Adult Inpatient Plan of Care Goal: Plan of Care Review Outcome: Ongoing (Interventions Implemented as Appropriate) Goal: Patient-Specific Goal (Individualized) Outcome: Ongoing (Interventions Implemented as Appropriate) Goal: Absence of Hospital-Acquired Illness or Injury Outcome: Ongoing (Interventions Implemented as Appropriate) Goal: Optimal Comfort and Wellbeing Outcome: Ongoing (Interventions Implemented as Appropriate) * Initial Assessments - Alice Rivas MSW - 09/25/2022 12:22 PM EDT Office of Care Management Initial Assessment Medical record reviewed. Plan of care and patient status discussed with direct care Registered Nurse and/or Care Team in multidisciplinary rounds. Reason for Hospitalization: Video EEG Last COVID test: Lab Results Component Value Date [id number] Not Detected 01/09/2021 Present on Admission: Seizure-like activity Hospitalizations Within the Past 30 Days: no previous admission in last 30 days Patient receiving hospital care under Inpatient status. Admission order reviewed. Health/Prescription Coverage: Primary Insurance: MEDICARE Payor: MEDICARE / Plan: MEDICARE PART A & B / Product Type: *No Product type* / Secondary Insurance: MEDICAID [place] ONLY if patient has Medicare A&B - Does this patient have secondary insurance?: Yes ; Prescription Coverage: Yes Preferred Pharmacy: [facility] [address] [place] [address] [facility] [address] [facility] [address] [facility] [address] [facility] [address] [facility] [address] [place], [place] [address] [address] [facility] [address] Advance Care Planning: Attempt Cardiopulmonary Resuscitation - Inpatient <no information> -Advanced Directive: No, declines Current Functional Ability: Independent Functional Status Prior to Admission: Independent, Patient Drives Self Home Environment: Others in the home: child(amy), minor, spouse, pet(s) (Spouse, two minor daughters and a dog.). Current Living Arrangements: home/apartment/condo. Accessibility Concerns:Two story home with 4 steps and a railing to enter home. Patient confirms she has no difficulty managing stairs.. Current DME: none [address] [place] [address] Social & Family Supports: All names listed below confirmed with patient as current and correct Extended Emergency Contact Information Primary Emergency Contact: Farhan Bales [facility] Relation: Spouse Current Care Provided by: self Transportation: no concerns Transportation Anticipated: family or friend will provide Assessment: Patient with no apparent RNCM/SW needs at this time. No housing, transportation, insurance, resources concerns identified at this time. Supports in place to achieve a safe post-hospital transition. No identified barriers to accessing necessary care and/or follow-up after discharge. Plan: Patient to d/c to home via spouse Matias when medically ready. Registered Nurse Storage Battery Charger / Nail Machine Operator will continue to follow patient???s progress and remain available if situation changes for coordination of care, psychosocial support and/or discharge planning. Office of Care Management ABRAHAM Wills [phone] * Plan of Care - Chase Ruiz RN - 09/25/2022 11:54 AM EDT Problem: Adult Inpatient Plan of Care Goal: Plan of Care Review Outcome: Ongoing (Interventions Implemented as Appropriate) Goal: Patient-Specific Goal (Individualized) Outcome: Ongoing (Interventions Implemented as Appropriate) Goal: Absence of Hospital-Acquired Illness or Injury Outcome: Ongoing (Interventions Implemented as Appropriate) Goal: Optimal Comfort and Wellbeing Outcome: Ongoing (Interventions Implemented as Appropriate) Goal: Readiness for Transition of Care Outcome: Ongoing (Interventions Implemented as Appropriate) * Plan of Care - Adele Flores RN - 09/25/2022 6:13 AM EDT OUTCOME EVALUATION NOTE: OUTCOME SUMMARY: Pt A&Ox4, AVSS on RA. No complaints of pain but was tired, per pt it was a long day. Slept mostof the shift. No events noted. Seizure and safety precaution maintained. PLAN MOVING FORWARD: VS q8 Monitor for seizure Maintain Safety DC Planning INDIVIDUALIZED FALL PREVENTION INTERVENTIONS: Patient-specific fall risk factors per assessment: ?seizure, Devices, wires/tubes, tapering of ASM's Assistance: SBA Supervision: Eyes on, Arms reach, Hands on Surveillance: Bed locked in low position, call eubanks within reach, purposeful hourly rounding, clutter free environment, bed/chair alarm on Patient-specific fall prevention interventions for sensory deficits provided: N/A CPG GOAL OUTCOME EVALUATION: Continue care plan as documented. * Plan of Care - Janet Shaw RN - 09/24/2022 6:45 PM EDT Problem: Adult Inpatient Plan of Care Goal: Absence of Hospital-Acquired Illness or Injury Outcome: Ongoing (Interventions Implemented as Appropriate) Goal: Optimal Comfort and Wellbeing Outcome: Ongoing (Interventions Implemented as Appropriate) Goal: Readiness for Transition of Care Outcome: Ongoing (Interventions Implemented as Appropriate) Problem: Seizure, Active Management Goal: Absence of Seizure/Seizure-Related Injury Outcome: Ongoing (Interventions Implemented as Appropriate) documented in this encounter Plan of Treatment [...] Procedure Name Priority Date/Time Associated Diagnosis Comments EEG CONTINUOUS MONITORING INPATIENT Routine 09/25/2022 11:43 AM EDT EKG 12-LEAD Routine 09/24/2022 8:50 PM EDT 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 09/25/2022 11:45 AM [facility] Department of Neurology Inpatient Continuous Video EEG Report Name of the Patient: ??Kimberli Bales Date of : ?1985 Date of Service: ?09/24/2022 Referring physician: ?Christopher Carrillo A Reading Resident: ??MD Johnny ?? Reading Attending: ??MD Jose M Initial time and date cEEG monitoring started: 1899 on 09/24/2022 Daily report EEG start time:1899 on 09/24/22 Daily report EEG end time: 0500 on 09/25/22 Total recording time: Indication for cvEEG: Epilepsy BRIEF HISTORY: Kimberli Bales is a 36 y.o. female with Epilepsy MEDICATIONS: Keppra (Home dose 500/1000) : Decrease to 500 mg night dose. Topirmate 100 mg PO BID PRIOR EEG(s): 10/10/2019 CLINICAL CORRELATION: Normal awake only EEG. The clinical events did not correspond to seizure activity. No epileptiform features observed. A normal EEG does not, of itself alone, exclude epilepsy. ??If there is a high index of suspicion for epilepsy, consider a prolonged recording that captures sleep to increase the sensitivity of detecting abnormalities. 10/29/2019 CLINICAL CORRELATION: Normal awake and drowsy EEG. No epileptiform discharges, events, or seizures. A normal EEG does not rule out epilepsy. If clinical suspicion remains, a longer study including sleep state will increase the sensitivity of the test. METHODS: A 21 channel digitized continuous electroencephalogram with video was set up and recording started at 1900 on 09/24/2022. Following explanation of the procedure, the 10/20 international system of electrode placement was used to determine electrode placement and disposable MRI conditional electrodes were applied using the paste/collodion method of application. ??In addition to EEG the patient was monitored for EKG. Video was recorded during the session. SEWING TEACHER'S REPORT: Performed by: Victor Manuel Lantigua At the onset of the recording the patient was awake and cooperative. Movement and other artifact was not significant. Comments:None ELECTROENCEPHALOGRAPHER'S REPORT Background: The background was continuous and spontaneously reactive composed of normal voltage, 10 to 60 ??V, nicely organized anterior to posterior gradient with frontally predominant beta and posterior alpha frequencies. ??There was a 10 Hz posterior dominant rhythm that attenuated with eye opening. Focal Asymmetries: There were no persistent focal asymmetries. Sleep: Sleep was characterized by decreased myogenic artifact and increased slowing. ??There were symmetric N2 sleep transients present including sleep spindles and K complexes. ??Periods of REM were also recorded. Interictal Activity: There were no epileptiform discharges or abnormal movement patterns. Patient Events or Seizures: No patient events or electrographic seizures were recorded. Provocative Maneuvers: Hyperventilation and photic stimulation were not performed. EKG: Single-lead EKG was regular. Technical Limitations: None INTERPRETATION: This 10-hour recording of continuous video EEG was normal during the awake, drowsy, and asleep state(s). CLINICAL CORRELATION: This EEG is within normal limits for state and age. Elder Turner MD 09/25/2022 Christopher Carrillo MD NEUROLOGY ORDERA BLES * EKG 12 Lead (09/24/2022 8:50 PM EDT) Ventricular rate 72 BPM MUSE SYSTEM Atrial Rate 72 BPM MUSE SYSTEM P-R Interval 134 ms MUSE SYSTEM QRS Duration 88 ms MUSE SYSTEM Q-T Interval 396 ms MUSE SYSTEM QTC Calculated (Bezet) 433 ms MUSE SYSTEM Calculated P [place] 39 degrees MUSE SYSTEM Calculated R [place] 41 degrees MUSE SYSTEM Calculated T [place] 18 degrees MUSE SYSTEM INTERPRETATION Normal sinus rhythm Low voltage QRS Borderline ECG When compared with ECG of 08-JAN-2020 13:24, No significant change was found Confirmed by MD Noam, [place] ([id number]) on 09/25/2022 8:47:12 PM MUSE SYSTEM 09/24/2022 8:50 PM EDT 09/25/2022 8:47 PM EDT Christopher Carrillo MD ECG ORDERABLES MUSE SYSTEM * (ABNORMAL) Differential, Automated (09/24/2022 8:43 PM EDT) Neutrophil % 55.5 % [facility] Neutrophil Absolute 5.57 1.70 - 6.10 x10(3)/mc L [facility] Lymph % 35.0 % [facility] [place] [facility] Lymphocytes Abs 3.5(H) 0.9 - 3.2 x10(3)/mc L [facility] Monocyte % 6.6 % [facility] Monocyte Abs 0.7 0.3 - 0.9 x10(3)/mc L [facility] Eos % 2.1 % [facility] Eosinophils Abs 0.2 0.0 - 0.4 x10(3)/[facility] Basophil % 0.4 % [facility] Baso Absolute 0.0 0.0 - 0.1 x10(3)/[facility] Immature Gran % 0.40 % [facility] Comment: Immature granulocytes(IG's)percentage and absolute count will include metamyelocytes, myelocytes, and promyelocytes. Blood smears from CBCs yielding IG's will be scanned manually for concordance. If this scan disagrees with the automated IG or if promyelocytes are noted, a manual differential will be performed. Immature Gran Absolute 0.04 0.00 - 0.04 x10(3)/[facility] Blood 09/24/2022 8:43 PM EDT 09/24/2022 8:49 PM EDT Narrative Resulting Agency Comment Spec In Lab Elder Turner MD HEMATOLOGY ORDERABLE S Performing Organization Address City/State/[facility] Co de Phone Number [facility] [place] [address] * (ABNORMAL) Hemogram (09/24/2022 8:43 PM EDT) White Blood Cell 10.0(H) 4.0 - 9.5 x10(3)/[facility] Red Blood Cell 3.96(L) 4.00 - 5.21 x10(6)/[facility] Hemoglobin 11.9 11.7 - 15.5 g/dL [facility] Hematocrit 35.3(L) 35.7 - 45.8 % [facility] Mean Cell Volume 89.1 82.6 - 94.4 fL [facility] Mean Cell Hemoglobin 30.1 27.1 - 32.0 pg [facility] Mean Cell Hemoglobin Concentration 33.7 31.7 - 35.0 g/dL [facility] Platelet 260 145 - 357 x10(3)/[facility] RDW Standard Deviation 42.3 37.0 - 46.0 fL [facility] RDW coefficient of variation 12.9 11.5 - 14.1 % [facility] Mean Platelet Volume 9.8 7.6 - 12.9 fL [facility] NRBC% auto 0.0 % [facility] NRBC Absolute 0.000 0.000 - 0.000 x10(3)/mc L [facility] Blood 09/24/2022 8:43 PM EDT 09/24/2022 8:49 PM EDT Narrative Resulting Agency Comment Spec In Lab Elder Turner MD HEMATOLOGY ORDERABLE S [facility] [address] * Beta HCG, quantitative (09/24/2022 8:43 PM EDT) Beta Human Chorionic Gonadotropin, Quantitative <1 mlU/ML [facility] Comment: REFERENCE RANGES NON- FEMALE: ??Less than 5 mIU/mL POSTMENOPAUSAL FEMALE: ??Less than 8 mIU/mL ? -- FEMALES -- Weeks of ? HCG range ??(mIU/mL) ? 3 weeks ? 5.8 - 71.2 ? 4 weeks ? 9.5 - 750 ? 5 weeks ? 217 - 7,138 ? 6 weeks ? 158 - 31,795 ? 7 weeks ? 3,697 - 163,563 ? 8 weeks ? 32,065 - 149,571 ? 9 weeks ? 63,803 - 151,410 ?10 weeks ? 46,509 - 186,977 ?12 weeks ? 27,832 - 210,612 ?14 weeks ? 13,950 - 62,530 ?15 weeks ? 12,039 - 70,971 ?16 weeks ? 9,040 - 56,451 ?17 weeks ? 8,175 - 35,868 ?18 weeks ? 8,377 - 28,411 This result was generated using a Boyd Vibha immunoassay. ??Results obtained from other methods or manufacturers cannot be used interchangeably with this method. Blood 09/24/2022 8:43 PM EDT 09/24/2022 8:50 PM EDT Narrative Resulting Agency Comment Spec In Lab Christopher Carrillo MD CHEMISTRY ORDERA BLES Performing Organization Address [facility]/State/[facility] Co de Phone Number [facility] [place] [address] * (ABNORMAL) Levetiracetam level (09/24/2022 8:43 PM EDT) Levetiracetam Lvl (JUNE) 5.4(L) 10.0 - 40.0 mcg/mL [facility] Comment: ADDITIONAL INFORMATION This test was developed and its performance characteristics determined by [facility] in a manner consistent with CLIA requirements. This test has not been cleared or approved by the U.S. Food and Drug Administration. Test Performed by: [facility] [place] [address] Emergency Registrar: Alonzo Jain M.D. Ph.D.; CLIA# [id number] Blood 09/24/2022 8:43 PM EDT 09/25/2022 10:06 AM EDT Narrative Resulting Agency Comment Spec In Lab Christopher Carrillo MD LAB SEND OUT ORD ERABLES Performing Organization Address [facility] Co de Phone Number [facility] [place] [address] * (ABNORMAL) Lamotrigine Lvl (09/24/2022 8:43 PM EDT) Lamotrigine Lvl (JUNE) <0.2(L) 3.0 - 15.0 mcg/mL [facility] Comment: ADDITIONAL INFORMATION This test was developed and its performance characteristics determined by [facility] in a manner consistent with CLIA requirements. This test has not been cleared or approved by the U.S. Food and Drug Administration. Test Performed by: [facility] [place] [address] Emergency Registrar: Alonzo Jain M.D. Ph.D.; CLIA# [id number] Blood 09/24/2022 8:43 PM EDT 09/25/2022 10:02 AM EDT Narrative Resulting Agency Comment Spec In Lab Christopher Carrillo MD LAB SEND OUT ORD ERABLES [facility] [place] [address] * (ABNORMAL) Comprehensive metabolic panel (non-fasting) (09/24/2022 8:43 PM EDT) Glucose 118 65 - 199 mg/dL [facility] Comment:Diabetes: >=200 mg/d L plus symptoms Blood Urea Nitrogen 10 8 - 18 mg/dL [facility] Creatinine 0.73 0.70 - 1.20 mg/dL [facility] Sodium 139 135 - 145 mmol/L [facility] Potassium 3.6 3.5 - 5.0 mmol/L [facility] Comment: Please note: ??Patients with WBC >100,000 may have falsely elevated Potassium levels. ??For accurate Potassium quantification in these patients send serum separator tube (gold top) for subsequent determinations. ??Contact the Clinical Chemistry Laboratory if there are any questions. Chloride 108(H) 98 - 107 mmol/L [facility] Carbon Dioxide 20(L) 22 - 31 mmol/L [facility] Anion Gap 11 5 - 15 mmol/L [facility] Calcium 9.1 8.5 - 10.5 mg/dL [facility] Protein, Total 6.4 6.1 - 8.0 g/dL [facility] Albumin 3.8 3.2 - 5.2 g/dL [facility] Aspartate Aminotransferase 13 0 - 30 unit/L [facility] Alanine Aminotransferase 18 0 - 30 unit/L [facility] Alkaline Phosphatase 56 35 - 105 unit/L [facility] Bilirubin, Total <0.2(L) 0.2 - 1.3 mg/dL [facility] Est Glomerular Filtration Rate 108 >=60 mL/min/1. 73 m?? 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 When ordered for pain, acetaminophen should be given even when other ordered pain medications are indicated. , Routine Given 09/25/2022 11:26 PM EDT 975 mg busPIRone (Buspar) tablet 10 mg 10 mg, Oral, 3 TIMES DAILY, First dose on Sat09/24/22 at 2130, Until Discontinued, Routine Given 09/28/2022 8:24 AM EDT 10 mg Given 09/27/2022 8:57 PM EDT 10 mg Given 09/27/2022 2:54 PM EDT 10 mg citalopram (CeleXA) tablet 40 mg 40 mg, Oral, DAILY, First dose on Sat09/25/22 at 0900, Until Discontinued, Routine Given 09/28/2022 8:23 AM EDT 40 mg Given 09/27/2022 8:27 AM EDT 40 mg Given 09/26/2022 9:02 AM EDT 40 mg levETIRAcetam (Keppra) tablet 500 mg 500 mg, Oral, 2 TIMES DAILY, First dose on Sat09/24/22 at 2130, Until Discontinued, Routine Given 09/24/2022 9:25 PM EDT 500 mg lisinopriL (Zestril) tablet 40 mg 40 mg, Oral, DAILY, First dose on Sat09/25/22 at 0900, Until Discontinued, Routine Given 09/28/2022 8:23 AM EDT 40 mg Given 09/27/2022 8:27 AM EDT 40 mg Given 09/26/2022 9:02 AM EDT 40 mg LORazepam (Ativan) (2 mg/mL) injection 2 mg 2 mg, Intravenous, ONCE PRN, 1 dose, Starting on Sat09/24/22 at 2030, Until Sat09/28/22 at 1508, Seizures, Give 2 mg IV once after generalized tonic clonic seizure or 3 focal impaired awareness seizures in 24 hours, or any seizure lasting longer than 5 minutes. IV Push over 1 minute, then page MD for post-administration assessment (repage if no reply after 5 minutes). May give intranasal midazolam if no IV access., Routine midazolam (pf) (Versed) (5 mg/mL) injection 5 mg 5 mg, Nasal, ONCE PRN, 1 dose, Starting on Sat09/24/22 at 2030, Until Sat09/28/22 at 1508, Seizures, If no IV access, administer 5 mg nasally after generalized tonic clonic seizure or 3 focal impaired awareness seizures in 24 hours, or any seizure lasting longer than 5 minutes. Page MD for post-administration assessment (repage if no reply after 5 minutes). Administration: Draw up desired dose with a 1 to 3 mL needleless syringe; may attach a nasal mucosal atomization device prior to delivering dose. Deliver ordered dose volume into the first nares using the atomizer device or by dripping slowly into nostril. If 2nd dose is required please administer into opposite nares., Routine pantoprazole EC (Protonix) tablet 40 mg 40 mg, Oral, DAILY, First dose on Sat09/25/22 at 0900, Until Discontinued, DO NOT CRUSH OR OPEN, Routine Given 09/28/2022 8:23 AM EDT 40 mg Given 09/27/2022 8:27 AM EDT 40 mg Given 09/26/2022 9:02 AM EDT 40 mg sodium chloride 0.9 % (flush) (BD PosiFlush Normal Saline 0.9) flush 5 mL 5 mL, Intravenous, 2 TIMES DAILY, First dose on Sat09/24/22 at 2130, Until Discontinued, Routine Given 09/28/2022 8:24 AM EDT 5 mLs Given 09/27/2022 8:58 PM EDT 5 mLs Given 09/27/2022 8:27 AM EDT 5 mLs topiramate (Topamax) tablet 100 mg 100 mg, Oral, 2 TIMES DAILY, First dose on Sat09/24/22 at 2130, Until Discontinued, DO NOT SPLIT, CRUSH OR OPEN, Routine Given 09/25/2022 9:35 PM EDT 100 mg Given 09/25/2022 10:08 AM EDT 100 mg Given 09/24/2022 9:26 PM EDT 100 mg topiramate (Topamax) tablet 100 mg 100 mg, Oral, 2 TIMES DAILY, First dose on Sat09/28/22 at 1300, Until Discontinued, DO NOT SPLIT, CRUSH OR OPEN, Routine Given 09/28/2022 12:51 PM EDT 10 0 mg topiramate (Topamax) tablet 50 mg 50 mg, Oral, 2 TIMES DAILY, First dose (after last modification) on Sat09/26/22 at 1115, Until Discontinued, DO NOT SPLIT, CRUSH OR OPEN, Routine Given 09/26/2022 9:01 PM EDT 50 mg Given 09/26/2022 10:37 AM EDT 50 mg documented in this encounter Active and Recently Administered Medications Times are shown in EDT. Scheduled Medication Order 09/26/2022 09/27/2022 09/28/2022 busPIRone (Buspar) tablet 10 mg 10 mg, Oral, 3 TIMES DAILY, First dose on Sat09/24/22 at 2130, Until Discontinued, Routine 09 (Given - Provider: Chase Ruiz RN)1520 (Given - Provider: Chase Ruiz RN)2038 (Given - Provider: Morelia Bay RN) 08 (Given - Provider: Oumou Brian RN)145 (Given - Provider: Oumou Brian RN)2056 (Given - Provider: Deanna Mello, RADHA) 08 (Given - Provider: Oumou Brian, RADHA) citalopram (CeleXA) tablet 40 mg 40 mg, Oral, DAILY, First dose on Sat09/25/22 at 0900, Until Discontinued, Routine 901 (Given - Provider: Chase Ruiz RN) 826 (Given - Provider: Oumou Brian RN) 822 (Given - Provider: Oumou Brian RN) enoxaparin (Lovenox) (40 mg/0.4 mL) subcutaneous injection 40 mg 40 mg, Subcutaneous, NIGHTLY, First dose on Sat09/24/22 at 2145, Until Discontinued, Routine 2039 (Not Given - Provider: Morelia Bay RN - Reason: Patient/family refused) 2056 (Not Given - Provider: Deanna Mello RN - Reason: Patient/family refused) lisinopriL (Zestril) tablet 40 mg 40 mg, Oral, DAILY, First dose on Sat09/25/22 at 0900, Until Discontinued, Routine 901 (Given - Provider: Chase Ruiz RN) 826 (Given - Provider: Oumou Brian RN) 08 (Given - Provider: Oumou Brian RN) pantoprazole EC (Protonix) tablet 40 mg 40 mg, Oral, DAILY, First dose on Sat09/25/22 at 0900, Until Discontinued, DO NOT CRUSH OR OPEN, Routine 901 (Given - Provider: Chase Ruiz RN) 826 (Given - Provider: Oumou Brian RN) 822 (Given - Provider: Oumou Brian RN) sodium chloride 0.9 % (flush) (BD PosiFlush Normal Saline 0.9) flush 5 mL 5 mL, Intravenous, 2 TIMES DAILY, First dose on Sat09/24/22 at 2130, Until Discontinued, Routine 902 (Given - Provider: Chase Ruiz RN)2040 (Given - Provider: Morelia Bay RN) 826 (Given - Provider: Oumou Brian, RADHA)2057 (Given - Provider: Deanna Mello RN) 08 (Given - Provider: Oumou Brian RN) topiramate (Topamax) tablet 100 mg 100 mg, Oral, 2 TIMES DAILY, First dose on Sat09/28/22 at 1300, Until Discontinued, DO NOT SPLIT, CRUSH OR OPEN, Routine 1251 (Given - Provider: Oumou Brian RN) topiramate (Topamax) tablet 50 mg (CANCELED) 50 mg, Oral, 2 TIMES DAILY, First dose (after last modification) on Sat09/26/22 at 1115, Until Discontinued, DO NOT SPLIT, CRUSH OR OPEN, Routine 1037 (Given - Provider: Chase Ruiz RN)2100 (Given - Provider: Morelia Bay RN) 0900 (Not Given - Provider: Oumou Brian RN - Reason: Medication Discontinued) PRN Medication Order 09/26/2022 09/27/2022 09/28/2022 acetaminophen (Tylenol) tablet 975 mg 975 mg, Oral, EVERY 8 HOURS PRN, Starting on Sat09/24/22 at 2030, Until Sat09/28/22 at 1508, Pain, Headaches, Maximum dose of acetaminophen is 4,000 mg from all sources in 24 hours. When ordered for pain, acetaminophen should be given even when other ordered pain medications are indicated. , Routine lidocaine (Xylocaine) 1% (10 mg/mL) injection 3 mg 3 mg (0.3 mL), Subcutaneous, ONCE PRN, 1 dose, Starting on Sat09/24/22 at 2030, Until Sat09/28/22 at 1508, for discomfort with PIV insertion, Routine LORazepam (Ativan) (2 mg/mL) injection 2 mg(Linked Group 1) 2 mg, Intravenous, ONCE PRN, 1 dose, Starting on Sat09/24/22 at 2030, Until Sat09/28/22 at 1508, Seizures, Give 2 mg IV once after generalized tonic clonic seizure or 3 focal impaired awareness seizures in 24 hours, or any seizure lasting longer than 5 minutes. IV Push over 1 minute, then page MD for post-administration assessment (repage if no reply after 5 minutes). May give intranasal midazolam if no IV access., Routine midazolam (pf) (Versed) (5 mg/mL) injection 5 mg(Linked Group 1) 5 mg, Nasal, ONCE PRN, 1 dose, Starting on Sat09/24/22 at 2030, Until Sat09/28/22 at 1508, Seizures, If no IV access, administer 5 mg nasally after generalized tonic clonic seizure or 3 focal impaired awareness seizures in 24 hours, or any seizure lasting longer than 5 minutes. Page MD for post-administration assessment (repage if no reply after 5 minutes). Administration: Draw up desired dose with a 1 to 3 mL needleless syringe; may attach a nasal mucosal atomization device prior to delivering dose. Deliver ordered dose volume into the first nares using the atomizer device or by dripping slowly into nostril. If 2nd dose is required please administer into opposite nares., Routine sodium chloride 0.9 % (flush) (BD PosiFlush Normal Saline 0.9) flush 5-20 mL 5-20 mL, Intravenous, EVERY 1 MIN PRN, Starting on Sat09/24/22 at 2030, Until Sat09/28/22 at 1508, flush, Flush pertains to all indwelling lines. Flush per protocol found in the job aid using the link provided on this medication record., Routine SUMAtriptan (Imitrex) tablet 100 mg 100 mg, Oral, DAILY PRN, Starting on Sat09/24/22 at 2030, Until Sat09/28/22 at 1508, Migraine, Routine Linked Groups Order Group 1: LORazepam (Ativan) (2 mg/mL) injection 2 mgJump to med 2 mg, Intravenous, ONCE PRN, 1 dose, Starting on Sat09/24/22 at 2030, Until Sat09/28/22 at 1508, Seizures, Give 2 mg IV once after generalized tonic clonic seizure or 3 focal impaired awareness seizures in 24 hours, or any seizure lasting longer than 5 minutes. IV Push over 1 minute, then page for post-administration assessment (repage if no reply after 5 minutes). May give intranasal midazolam if no IV access., Routine Or midazolam (pf) (Versed) (5 mg/mL) injection 5 mgJump to med 5 mg, Nasal, ONCE PRN, 1 dose, Starting on 09/24/22 at 2031, Until Sat09/28/22 at 1508, Seizures, If no IV access, administer 5 mg nasally after generalized tonic clonic seizure or 3 focal impaired awareness seizures in 24 hours, or any seizure lasting longer than 5 minutes. Page MD for post-administration assessment (repage if no reply after 5 minutes). Administration: Draw up desired dose with a 1 to 3 mL needleless syringe; may attach a nasal mucosal atomization device prior to delivering dose. Deliver ordered dose volume into the first nares using the atomizer device or by dripping slowly into nostril. If 2nd dose is required please administer into opposite nares., Routine documented in this encounter Care Teams Nurse Executive Relationship Specialty Start Date End Date Medardo Redman DO [address] [place] [address] PCP - General Family Medicine 06/22/21 documented as of this encounter
--- OUTSIDE RECORDS SUMMARY | 2024-01-13 18:54 | XMS_ITS | Encounter Summary ---
[place] [address] Care Team Providers Care Slot Floorman Name Role Phone Feroz Medardo Sen OLSEN Primary Care Provider [phone]- [phone] Reason for Referral * Diagnostic Test (Routine) - Denied Specialty Diagnoses / Procedures Referred By Contac t Referred To Contact Radiology Diagnoses Cavernous malformation Procedures MRI Brain wwo Contrast (Generic) Robert Rossi PA [facility] [place] [address] [place] [address] Referral ID Status Reason Start Date Expiration Date V isits Requested Visits Authorized [id number] Denied Specialty Service Requested 06/28/2021 12/29/2022 1 0 Reason for Visit * Diagnostic Test (Routine) - Denied Specialty Diagnoses / Procedures Referred By Contac t Referred To Contact Radiology Diagnoses Cavernous malformation Procedures MRI Brain wwo Contrast (Generic) Robert Rossi PA [facility] [place] [address] [place] [address] Referral ID Status Reason Start Date Expiration Date V isits Requested Visits Authorized [id number] Denied Specialty Service Requested 06/28/2021 12/29/2022 1 0 Encounter Details Date Type Department Care Team (Latest Contact Info) Description 06/22/2022 8:21 AM EDT - 06/22/2022 8:22 AM EDT Hospital Encounter MRI at [facility] [place] [address] Chase Mackenzie MD [facility] [place] [address] Cavernous malformation Discharge Disposition: Home Social History [...] Sign Reading Time Taken Comments Blood Pressure - - Pulse - - Temperature - - Respiratory Rate - - Oxygen Saturation - - Inhaled Oxygen Concentration - - Weight 127 kg (280 lb) 06/19/2022 9:00 AM EDT Height 167.6 cm (5' 6) 06/19/2022 9:00 AM EDT Body Mass Index 45.19 06/19/2022 9:00 AM EDT documented in this encounter Discharge Instructions * Discharge Instructions* Marita Mcgraw RN - 06/22/2022 8:05 AM EDT [facility] Department of Radiology MRI Nursing Kimberli Bales 1985 [id number] June 22, 2022 You have received oral sedation medication for your MRI to help with claustrophobia and anxiety. This medication affects your judgement and reaction time. 1. Do not drive, operate machinery, drink alcoholic beverages, or make important decisions for 24 hours. 2. Be careful on stairs, as you may be unsteady on your feet. 3. You may eat a regular diet as tolerated. 4. If you smoke, do not smoke if you are alone. Call with any questions or concerns: During regular office hours call: [phone]. If it is afterregular office hours, weekends or holidays, please call [phone] and ask to speak to the Fertilizer Supervisor carbon paper coating supervisor for Interventional Radiology. Updated 07/07/21 documented in this encounter Medications at Time [...] with spacer fluticasone propionate (Flonase) 50 mcg/actuation [place], Suspension 2 sprays by Each Nare route [...] daily. 09/19/2022 documented as of this encounter Progress Notes * Marita Mcgraw RN - 06/22/2022 11:41 AM EDT MRI PRE-SEDATION ASSESSMENT NOTE NAME: Kimberli Bales AGE: 36 y.o. : 1985 [address] [place] [address] Female [phone] (home) Telephone Information: Medardo Redman, DO No primary care provider on file. Allergies Allergen Reactions ??? Oxycodone-Acetaminophen Shortness Of Breath ??? Red Dye Other (See Comments) Stops heart Date/Time of call: June 19, 20229:17 AM/ PREVIOUS MRI SCAN? Yes HEIGHT: 167.6cm WEIGHT: 127kg SCHEDULED SCAN: MRI BRAIN WWO CONTRAST (GENERIC) [[id number]] SUBJECTIVE: Pt claustrophobic CAN YOU LAY FLAT?: Yes AIRWAY/BREATHING ISSUES?: No DO YOU HAVE ANY INVOLUNTARY MOVEMENTS?: (explain) No DO YOU HAVE ANY PAIN?: No DO YOU TAKE PAIN MED ON A DAILY BASIS?: No ASSESSMENT: Pt appropriate for PO sedation PLAN: Valium 5mg PO prn x 2 doses ( X) You must have a sales warehouse driver present when you check in. This patient has been informed that they require a sales warehouse driver to drive them home after this procedure. In the absence of a sales warehouse driver, IR will not be able to sedate for your scan. Pt verbalized understanding of these instructions during the pre-procedure education via phone. Yes [place] of sales warehouse driver: Matias Bales Phone number: [phone] PRIOR SCAN DATE/S SEDATION TYPE SUCCESSFUL [id number] Multiple MRIs No corresponding nursing notes ?? 06/22/21 MRI brain wwo Ativan 1 mg PO x 2 ??yes ? Revised 07/16/17 documented in this encounter Plan of Treatment [...] in this encounter Results * MRI Brain wwo [...] who have questions please contact the health spiritual care coordinator that requested your imaging first. ? Narrative 06/22/2022 3:42 PM EDT EXAMINATION: MRI BRAIN WWO CONTRAST (GENERIC) CLINICAL HISTORY: Brain/SPECIALTY MOLDER neoplasm, assess treatment response s/p LEFT stereotactic [...] MRI BRAIN WWO CONTRAST (GENERIC) CLINICAL HISTORY: Brain/SPECIALTY MOLDER neoplasm, assess treatment response s/p LEFT stereotactic [...] patients who have questions please contactthe health spiritual care coordinator that requested your imaging first. Chase Mackenzie MD [facility] MRI ORDERABLES documented in this encounter Visit Diagnoses Diagnosis Cavernous malformation Congenital anomaly of cerebrovascular system documented in this encounter Administered Medications Inactive Administered Medications - up to 3 most recent administrations Medication Order MAR Action Action Date Dose Rate Site diazePAM (Valium) tablet 5 mg 5 mg, Oral, EVERY 30 MIN PRN, 2 doses, Starting on Sat06/22/22 at 0804, Until Sat06/22/22 at 0905, Anxiety, Minimal Sedation per Department of Radiology Adult Minimal Sedation Guidelines: Give 50 minutes prior to scan., Routine Given 06/22/2022 9:05 AM EDT 5 mg Given 06/22/2022 8:34 AM EDT 5 mg documented in this encounter Care Teams Slot Floorman Relationship Specialty Start Date End Date Medardo Redman DO [address] [place] [address] PCP - General Family Medicine 06/22/21 documented as of this encounter
--- OUTSIDE RECORDS SUMMARY | 2024-01-13 18:54 | XMS_ITS | Encounter Summary ---
Author Organization [facility] [place] [address] Care Team Providers Care Sausage Wrapper Name Role Phone FerozMedardo church Primary Care Provider [phone]- [phone] Reason for Visit * Reason Onset Date Comments Appointment 07/04/2022 Encounter Details Date Type Department Care Team (Late st Contact Info) Description 07/04/2022 Telephone [place] [id number] Tiffanie Quiles MD [facility] [address] [place] [address] Appointment Social History Tobacco Use Types Packs/Day [...] no 09/25/2022 Feels Threatened by Someone no 08/0 09/2022 Feels Unsafe at Home or Work/School no 09/25/2022 Physical Signs of Abuse Present no 09/25/2022 Sex and Gender Information Value Date Recorded Sex Assigned at Not on file Gender Identity Not on file Sexual Orientation Not on file documented as of this encounter Miscellaneous Notes * Telephone Encounter - Ladonna Peters - 04/29/2023 12:22 PM EDT Pt is scheduled on 07/03 at 1140 am for OV with Dr. Tiffanie Quiles No appt card needed Pt transferred to radiology Closing encounter * Telephone Encounter - Ladonna Peters - 04/25/2023 12:32 PM EST Lm for pt to schedule MRI and NS appt [facility] Scheduling Instructions Provider: Tiffanie Quiles MD Visit Type: OV Appt Note: 1 yr OV, s/p LEFT stereotactic ablation for cavernoma, MRI Brain prior Imaging appt needed?: MRI [facility] to ask patient Screening Questions? Yes [facility] to coordinate same day appt with Radiology? Yes Additional Info Needed: Schedule ~07/05/23 * Telephone Encounter - Ladonna Peters - 04/10/2023 2:[address] Quiles, Pt had an MRI brain completed in September 2022. She we do one year f/u in June or September 2023? Thank you, Alee * Telephone Encounter - Eun Lowe - 07/04/2022 11:12 AM EDT [facility] Scheduling Instructions Provider: Tiffanie Quiles MD Visit Type: OV Appt Note: 1 yr OV, s/p LEFT stereotactic ablation for cavernoma, MRI Brain prior Imaging appt needed?: MRI [facility] to ask patient Screening Questions? Yes [facility] to coordinate same day appt with Radiology? Yes Additional Info Needed: Schedule ~07/05/23 ~~~~~~~~~~~~~~~~~~~~~~~~~~~~~~ ----- Message from Tiffanie Quiles MD sent at 07/04/2022 11:01 AM EDT ----- MRI in 1year with clinic vist documented in this encounter Plan of Treatment [...] on filedocumented in this encounter Care Teams Sausage Wrapper Relationship Specialty Start Date End Date Medardo Redman DO [address] [place] [address] PCP - General Family Medicine 06/22/21 documented as of this encounter
--- OUTSIDE RECORDS SUMMARY | 2024-01-13 18:54 | XMS_ITS | Encounter Summary ---
[place] [address] Care Team Providers Care Career Development Specialist Name Role Phone Feroz Medardo Chatterjee Primary Care Provider [phone]- [phone] Reason for Referral * Diagnostic Test (Routine) - Closed Specialty Diagnoses / Procedures Referred By Stacy harper Referred To Contact Radiology Diagnoses Cavernous malformation Procedures MRI Brain wo Contrast Tiffanie Quiles MD [facility] [place] [address] [place] [address] Referral ID Status Reason Start Date Expiration Date V isits Requested Visits Authorized [id number] Closed Specialty Service Requested 07/04/2022 01/05/2024 1 1 Encounter Details Date Type Department Care Team (Late st Contact Info) Description 07/04/2022 10:00 AM EDT Office [place] [address] Tiffanie Quiles MD [facility] [place] [address] Cavernous malformation Social History Tobacco Use Types [...] Sign Reading Time Taken Comments Blood Pressure 129/71 07/04/2022 10:04 AM EDT Pulse 97 07/04/2022 10:04 AM EDT Temperature 36.4 ??C (97.6 ??F) 07/04/2022 1 0:04 AM EDT Respiratory Rate 17 07/04/2022 10:0 4 AM EDT Oxygen Saturation 97% 07/04/2022 10: 04 AM EDT Inhaled Oxygen Concentration - - Weight 127.3 kg (280 lb 10.3 oz) 2022 10:04 AM EDT Height 167.6 cm (5' 5.98) 07/04/2022 1 0:04 AM EDT Body Mass Index 45.32 07/04/2022 10:04 AM EDT documented in this encounter Progress Notes * Tiffanie Quiles MD - 07/04/2022 10:00 AM EDT Cerebrovascular & Neurosurgery Clinic Note Patient Kimberli Bales 1985 DATE OF VISIT: 07/04/2022 REASON FOR VISIT: Problem List Items Addressed This Visit L frontal cavernous malformation s/p laser ablation RELEVANT NARRATIVE: Kimberli Bales is a 36 y.o.yo Seizures have stopped after the ablation. Stable AED regimen, following with neurology. Still tireseasily and still gets headaches. father was recently diagnosed with early onset Parkinson disease PAST MEDICAL HISTORY: Past Medical History: Diagnosis Date ??? Abnormal cervical Papanicolaou smear 09/09/2018 ??? Allergy ??? Anxiety ??? Diverticulosis of colon 09/09/2018 ??? Dysplasia of cervix 07/17/2006 ??? Dysuria 07/17/2006 episodes of dysuria and frequency but all negative cultures. If sx develop check Micro, VEIN PUMPER or stone. ??? Environmental and seasonal allergies ??? Epilepsy 01/09/2021 ??? Glaucoma 12/21/2019 ??? Hypertension 06/30/2019 ??? Post-op bleeding 02/08/2012 Following ??? Pyelonephritis 09/09/2018 ??? Strabismus ??? UTI (urinary tract infection) PAST SURGICAL HISTORY: Past Surgical History: Procedure Laterality Date ??? SECTION N/A 03/25/2010 ??? SECTION N/A 04/24/2011 DAQUAN; Sherrell Schmidt MD ??? DILATION AND CURETTAGE OF UTERUS N/A 09/16/2015 Menorrhagia; APD; Sherrell Schmidt MD ??? HERNIA REPAIR ??? PRO BRAIN AVM SURG, SUPRATENT, SIMPLE Left 01/09/2021 @CRANI-SURG. FOR AVM,SUPRATENTORIAL, SIMPLE (WRVU 32.55) performed by Chase Mackenzie MD at [facility] ??? PRO PLACEMENT ADJUSTABLE SUTURE STRABISMUS Right 12/31/2013 STRABISMUS SURGERY, PLACEMENT OF ADJUSTABLE SUTURES IN CONJUNCTION W/ ANOTHER SURGERY performed by Genevieve Walsh MD at [facility] ??? PRO STABISMUS SURG,ONE HORIZ MUSCLE Bilateral 12/31/2013 STRABISMUS SURGERY, ONE HORIZONTAL MUSCLE, JEFF performed by Genevieve Walsh MD at [facility] ??? PRO STABISMUS SURG,TWO HORIZ MUSCLE Right 02/01/2014 STRABISMUS SURGERY, TWO HORIZONTAL MUSCLES performed by Genevieve Walsh MD at [facility] ??? PRO STEREOTACTIC CPTR ASSTD PX CRANIAL, INTRADURAL Left 01/09/2021 STEREOTACTIC COMPUTER-ASSTD NAVIGATIONAL CRANIAL INTRADURAL FOR LASER ABLATION [facility] ??? PRO STRABISMUS SCARRING EO MUSC/RESTRICTIVE MYOPATHY Right 02/01/2014 STRABISMUS SURGERY WITH SCARRING OF EXTRAOCULAR MUSCLES IN CONJUNCTION W/ ANOTHER SURGERY performedby Genevieve Walsh MD at [facility] ??? PRO UNLISTED PROCEDURE NERVOUS SYSTEM N/A 01/09/2021 STEREOTACTIC LASER ABLATION performed by Chase Mackenzie MD at [facility] ??? SINUS SURGERY ??? STRABISMUS SURGERY ??? TUBAL LIGATION Bilateral 04/24/2011 DAQUAN; Sherrell Schmidt MD ??? WISDOM TOOTH EXTRACTION N/A 07/01/[place] [facility] [place] AILEEN RIVERA, LAUREN OBJECTIVE: BP 129/71 (BP Location (NBP): Right arm, Patient Position: Sitting, BP Cuff Sizes: Adult (25-34 cm)) Comment (BP Cuff Sizes): adult long cuff Pulse 97 Temp 36.4 ??C (97.6 ??F) (Temporal) Resp 17 Ht 167.6 cm (5' 5.98) Wt 127.3 kg (280 lb 10.3 oz) LMP 01/18/2014 Comment: tubal ligation SpO2 97% BMI 45.32 kg/m?? RELEVANT FINDINGS ON NEUROLOGIC EXAMINATION: Nonfocal No acute distress Awake, Alert, Interactive Pupils equal and reactive Extraocular movements intact Moving all extremities with full strength with persistence Gait: Unremarkable CURRENT MEDICATIONS: LORazepam, acetaminophen, albuteroL, amoxicillin, b complex vitamins, benzonatate, busPIRone, citalopram, diphenhydrAMINE, fluticasone propionate, levETIRAcetam, lisinopriL, loratadine, pyridoxine (vitamin B6), topiramate, and traMADoL IMAGING & STUDIES PERSONALLY INTERPRETED: Mri brain 06/22/2022 compared with MRI 06/22/2021 and pre procedure MRI. No evidence of interval growthof the lesion. Unchanged DVA. No additional lesions identified. ASSESSMENT & PLAN: Problem List Items Addressed This Visit L frontal cavernous malformation s/p laser ablation Doing well after ablation procedure with interval resolution of seizure episodes. On stable AED regimen. No new headaches or concerning symptoms. Emphasized individual nature of recovery pathways andthat additional interventions for the cavernoma would be dictated by rupture/hemorrhage risk And seizure control versus risk of intervention. Recommend continuing to follow at this time. Answered patient and 's questions. The patient understands to contact neurosurgery or seek emergent help with any acute worsening of neurologic symptoms. PLAN SUMMARY: ??? MRI in 1 year to evaluate for growth/change ??? Continue to f/u with Dr. Jordan (neurology) I spent a total of 40 minutes in the care of this patient today including review of prior notes, review of prior images, interval history, physical exam as outlined above, personal review and independent interpretation of studies outlined above, patient counseling, documentation in the medical record and coordination of care. -- 07/04/2022 10:36 AM Tiffanie Quiles MD Open cerebrovascular and endovascular neurosurgery attending Section of Neurosurgery Department of Surgery [facility] documented in this encounter Plan of Treatment [...] of this encounter Results * MRI Brain wo Contrast (06/19/2023 3:47 PM EDT) [employer] WORKSTATION ID [id number] RAD Anatomical Region Laterality Modality Head Magnetic [...] who have questions please contact the health daytime caregiver that requested your imaging first. ? Electronically signed by: Alonzo Arreguin DO [facility] ??([phone]), at 06/20/2023 3:47 PM Narrative 06/20/2023 3:47 [...] patients who have questions please contactthe health daytime caregiver that requested your imaging first. 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
--- OUTSIDE RECORDS SUMMARY | 2024-01-13 18:54 | XMS_ITS | Encounter Summary ---
Author Organization [facility] Address [facility] [place] [address] Care Team Providers Care Hole Digger Name Role Phone Feroz Medardo Chatterjee Primary Care Provider +1- [phone] Encounter Details Date Type Department Care Team (Late st Contact Info) Description 06/22/2021 11:00 AM EDT [place] [id number] Chase Mackenzie MD [facility] [place] [address] Cavernous malformation Social History Tobacco Use Types [...] Sign Reading Time Taken Comments Blood Pressure 114/71 06/22/2021 10:55 AM EDT Pulse 80 06/22/2021 10:55 AM EDT Temperature 36.3 ??C (97.4 ??F) 06/22/2021 1 0:55 AM EDT Respiratory Rate 18 06/22/2021 10:5 5 AM EDT Oxygen Saturation 97% 06/22/2021 10: 55 AM EDT Inhaled Oxygen Concentration - - Weight 133.6 kg (294 lb 9.6 oz) 022 10:55 AM EDT Height 167.6 cm (5' 6) 06/22/2021 10:5 5 AM EDT Body Mass Index 47.55 06/22/2021 10:55 AM EDT documented in this encounter Progress Notes * Chase Mackenzie MD - 06/22/2021 11:00 AM EDT Neurosurgery Clinic Note Kimberli Bales is a 35 y.o. woman with a left frontal cavernoma s/p laser ablation on 01/09/21,returning to clinic for follow-up. She was last seen 02/23/21. She reports her headaches have resolved and she has had no seizure-like episodes. Her MRI from today was reviewed and demonstrates decreased T2 hyperintensity with slight involution. We will plan further follow-up at 1 year with repeat imaging, earlier should any changes develop. Chase Mackenzie MD Total visit time 15 [...] system documented in this encounter Care Teams Hole Digger Relationship Specialty Start Date End Date Medardo Redman DO [address] [place] [address] PCP - General Family Medicine 06/22/21 documented as of this encounter
--- OUTSIDE RECORDS SUMMARY | 2024-01-13 18:54 | XMS_ITS | Encounter Summary ---
[place] [address] Care Team Providers Care Ticket Agent Name Role Phone Medardo Redman DO Primary Care Provider +1- [phone] Reason for Referral * Diagnostic Test (Routine) - Closed Specialty Diagnoses / Procedures Referred By Stacy harper Referred To Contact Radiology Diagnoses Seizure Procedures MRI Brain wo Contrast MRI Brain wwo Contrast (Generic) Medardo Redman DO [address] [place] [address] [facility] [place] [address] Referral ID Status Reason Start Date Expiration Date V isits Requested Visits Authorized [id number] Closed Specialty Service Requested 08/15/2022 02/15/2024 1 1 Reason for Visit * Auth/Cert (Routine) Specialty Diagnoses / Procedures Referred By Stacy harper Referred To Contact Diagnoses Seizure-like activity Refractory Seizures Eusebia Salguero MD [facility] [place] [address] [facility] Referral ID Status Reason Start Date Expiration Date Visits Re quested Visits Authorized [id number] 1 1 Encounter Details Date Type Department Care Team (Late st Contact Info) Description 09/24/2022 11:43 AM EDT Hospital [place] [address] Medardo Redman DO [address] [place] [address] Seizure Discharge Disposition: Home Social History Tobacco Use [...] on file documented as of this encounter Discharge Instructions * Discharge Instructions* Alina Mendoza RN - 09/24/2022 12:01 PM EDT [facility] Department of Radiology MRI Nursing Kimberli Bales 1985 [id number] September 24, 2022 You have received oral sedation medication [...] or concerns: During regular office hours call: [phone]. If it is afterregular office hours, weekends or holidays, please call [phone] and ask to speak to the [employer] scout for Interventional Radiology. Updated 07/07/21 documented in [...] with spacer fluticasone propionate (Flonase) 50 mcg/actuation [place], Suspension 2 sprays by Each Nare route [...] ningt 09/28/2022 documented as of this encounter Progress Notes * Alina Mendoza RN - 09/24/2022 12:25 PM EDT MRI PRE-SEDATION ASSESSMENT NOTE NAME: Kimberli Bales AGE: 36 y.o. : 1985 [address] [place] [address] Female [phone] (home) Telephone Information: Medardo Redman DO No primary care provider on file. Allergies Allergen Reactions Oxycodone-Acetaminophen Shortness Of Breath Red Dye Other (See Comments) Stops heart Date/Time of call: September 19, 2022/11:30 AM/ SCHEDULED SCAN: MRI BRAIN WO CONTRAST [[id number]] HEIGHT: 5'6 WEIGHT: 280lb Have you had a PREVIOUS MRI SCAN? Yes Are you claustrophobic or anxious in the scanner? Yes/No CAN YOU LAY FLAT? Yes/No Do you have trouble breathing when lying flat? Yes/No DO YOU HAVE ANY INVOLUNTARY MOVEMENTS? Yes/No (explain) DO YOU TAKE PAIN MEDICATION ON A DAILY BASIS? No (explain) PLAN: Ativan (unless MRI previously tolerated with Valium) Valium worked better. You must have a goat driver present when you check in. This patient has been informed that they require a goat driver to drive them home after this procedure. In the absence of a goat driver, IR will not be able tosedate for your scan. Pt verbalized understanding of these instructions during the pre-procedure education via phone. Yes Cornelia of goat driver: Phone number: PRIOR SCAN DATE/S SEDATION TYPE SUCCESSFUL [phone] Multiple MRIs No corresponding nursing notes 06/22/21 MRI brain wwo Ativan 1 mg PO x 2 yes 06/22/22 MRI Brain wwo Valium 5mg PO X 2 yes 09/24/22 MRI Brain wwo Valium 5 mg PO x2 Yes Revised 08/14/2022 documented in this encounter [...] who have questions please contact the health primary care physician that requested your imaging first. ? Electronically signed by: Nathanael Hurtado MD, [facility] ([phone]), at 09/24/2022 5:09 PM Narrative 09/24/2022 5:09 [...] patients who have questions please contactthe health primary care physician that requested your imaging first. Medardo Redman DO [facility] MRI ORDERABLES documented in this encounter Visit Diagnoses Diagnosis Seizure Other convulsions documented in this encounter Administered Medications Inactive Administered Medications - up to 3 most recent administrations Medication Order MAR Action Action Date Dose Rate Site diazePAM (Valium) tablet 5 mg 5 mg, Oral, EVERY 30 MIN PRN, 2 doses, Starting on Sat09/24/22 at 0720, Until Sat09/24/22 at 1254, Anxiety, Minimal Sedation per Department of Radiology Adult Minimal Sedation Guidelines: Give 50 minutes prior to scan., Routine Given 09/24/2022 12:54 PM EDT 5 mg Given 09/24/2022 12:24 PM EDT 5 mg documented in this encounter Care Teams Ticket Agent Relationship Specialty Start Date End Date Medardo Redman DO [address] [place] [address] PCP - General Family Medicine 06/22/21 documented as of this encounter
--- OUTSIDE RECORDS SUMMARY | 2024-01-13 18:54 | XMS_ITS | Encounter Summary ---
[place] [address] Care Team Providers Care Chief Risk Officer Name Role Phone Feroz Medardo Chatterjee Primary Care Provider +1- [phone] Reason for Referral * Consultation (Urgent) - Closed Specialty Diagnoses / Procedures Referred By Contac t Referred To Contact Neurology Diagnoses Cavernous malformation Maddy Leahy APRN [facility] [place] [address] [facility] [address] [place] [id number] Referral ID Status Reason Start Date Expiration Date V isits Requested Visits Authorized [id number] Closed Consult, Test & Treat 08/24/2022 08/24/2023 1 1 Encounter Details Date Type Department Care Team (Late st Contact Info) Description 08/24/2022 [place] [address] Elsie Angulo RN Cavernous malformation Social History Tobacco Use Types [...] as of this encounter Plan of Treatment Scheduled Referrals Name Type Priority Associated Diagnoses Orde r Schedule Referral to Neurology Outpatient Referral Urgent Cavernous malformation Ordered: 08/24/2022 documented as of this encounter Goals Goal [...] system documented in this encounter Care Teams Chief Risk Officer Relationship Specialty Start Date End Date Medardo Redman DO [address] [place] [address] PCP - General Family Medicine 06/22/21 documented as of this encounter
--- OUTSIDE RECORDS SUMMARY | 2024-01-13 18:54 | XMS_ITS | Encounter Summary ---
Author Organization [facility] [place] [address] Care Team Providers Care Cotton Presser Name Role Phone Feroz Medardo Chatterjee Primary Care Provider +1- [phone] Encounter Details Date Type Department Care Team (Late st Contact Info) Description 06/27/2021 [place] [address] Chase Mackenzie MD [facility] [place] [address] Social History Tobacco Use Types Packs/Day Years [...] encounter Miscellaneous Notes * Telephone Encounter - Eun Lowe - 06/27/2021 8:06 AM EDT Robert, Can you please put in MRI Brain with and without order for 1 yr f/u ----- Message from Chase Mackenzie MD sent at 06/26/2021 8:01 PM EDT ----- F/u 1 year w/ MRI documented in this encounter Plan of Treatment [...] on filedocumented in this encounter Care Teams Cotton Presser Relationship Specialty Start Date End Date Medardo Redman DO [address] [place] [address] PCP - General Family Medicine 06/22/21 documented as of this encounter
--- OUTSIDE RECORDS SUMMARY | 2024-01-13 18:54 | XMS_ITS | Encounter Summary ---
[place] [address] Care Team Providers Care Predatory Game Hunter Name Role Phone VillagranRadha diaz JOSUE Primary Care Provider [phone] Reason for Referral * Diagnostic Test (Routine) - Closed Specialty Diagnoses / Procedures Referred By Contac t Referred To Contact Radiology Diagnoses Cavernous malformation Procedures MRI Brain wwo Contrast (Generic) Robert Rossi PA [facility] [place] [place] [address] [place] [address] Referral ID Status Reason Start Date Expiration Date V isits Requested Visits Authorized [id number] Closed Specialty Service Requested 06/15/2021 12/12/2021 1 1 Encounter Details Date Type Department Care Team (Late st Contact Info) Description 05/16/2021 [place] [address] Robert Rossi PA [facility] [place] [address] Cavernous malformation Social History Tobacco Use Types [...] Results * MRI Brain wwo Contrast (Generic) (06/22/2021 9:46 AM EDT) Anatomical Region Laterality Modality Head Magnetic Resonan ce Impressions 06/22/2021 11:09 AM EDT Decreased T2 hyperintensity and surrounding edema otherwise stable. Left frontal cavernous malformation. 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 Thank you for letting us participate in the care of this patient. ??If you are a health care provider and have any questions regarding this report, please contact the number below. ??For patients who have questions please contact the health assisted living care manager that requested your imaging first. ? Narrative 06/22/2021 11:09 AM EDT EXAMINATION: MRI BRAIN WWO CONTRAST (GENERIC) CLINICAL HISTORY: Brain/SPEECH LANGUAGE PATHOLOGIST PRN neoplasm, assess treatment response s/p LEFT stereotactic ablation for cavernoma TECHNIQUE: MRI of the brain was performed before and after the intravenous administration of 25cc Dotarem. COMPARISON: MRI brain November 16, 2020. Reference is also made to intraoperative MRI January 09, 2021 FINDINGS: Decreased internal T2 signal and resolution of mild surrounding edema associated with predominantly peripherally enhancing, T1 hyperintense 1.0 x 0.8 cm left frontal cavernous malformation. Slightly increased susceptibility within and surrounding the lesion. Medusoid susceptibility and enhancement at the lateral periphery of the lesion suggestive of developmental venous anomaly is unchanged. No new abnormal brain parenchymal susceptibility. A few scattered, punctate T2 hyperintense foci within the bilateral frontal and parietal subcortical white matter are stable given differences in technique. No new abnormal brain parenchymal signal or enhancement. No midline shift, mass effect, hydrocephalus or extra-axial collection. Expected intracranial vascular flow voids are preserved. Moderate right and mild left maxillary sinus mucosal thickening, mild right frontal, left greater than right ethmoid and bilateral sphenoid sinus mucosal thickening. Mastoid air cells and middle ear cavities are clear. Midline structures are normal. Procedure Note Carol Long MD - 06/22/2021 EXAMINATION: MRI BRAIN WWO CONTRAST (GENERIC) CLINICAL HISTORY: Brain/SPEECH LANGUAGE PATHOLOGIST PRN neoplasm, assess treatment response s/p LEFT stereotactic ablation for cavernoma TECHNIQUE: MRI of the brain was performed before and after the intravenousadministration of 25cc Dotarem. COMPARISON: MRI brain November 16, 2020. Reference is also made to intraoperativeMRI January 09, 2021 FINDINGS: Decreased internal T2 signal and resolution of mild surrounding edemaassociated with predominantly peripherally enhancing, T1 hyperintense 1.0 x 0.8 cmleft frontal cavernous malformation. Slightly increased susceptibility withinand surrounding the lesion. Medusoid susceptibility and enhancement at thelateral periphery of the lesion suggestive of developmental venous anomaly isunchanged. No new abnormal brain parenchymal susceptibility. A few scattered,punctate T2 hyperintense foci within the bilateral frontal and parietal subcorticalwhite matter are stable given differences in technique. No new abnormal brain parenchymal signal or enhancement. No midline shift, mass effect,hydrocephalus or extra-axial collection. Expected intracranial vascular flow voids are preserved. Moderate right and mild left maxillary sinus mucosalthickening, mild right frontal, left greater than right ethmoid and bilateral sphenoidsinus mucosal thickening. Mastoid air cells and middle ear cavities are clear.Midline structures are normal. IMPRESSION Decreased T2 hyperintensity and surrounding edema otherwise stable. Leftfrontal cavernous malformation. Similar appearance of associated developmentalvenous anomaly. Thank you for letting us participate in the care of this patient. If youare a health care provider and have any questions regarding this report,please contact the number below. For patients who have questions please contactthe health assisted living care manager that requested your imaging first. 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
--- OUTSIDE RECORDS SUMMARY | 2024-01-13 18:54 | XMS_ITS | Encounter Summary ---
Author Organization [facility] [place] [address] Care Team Providers Care Product Development Scientist Name Role Phone Radha Villagran APRN Primary Care Provider [phone] Encounter Details Date Type Department Care Team (Late st Contact Info) Description 05/08/2021 [place] [address] [facility] [place] [address] Cavernous malformation Social History Tobacco Use Types [...] system documented in this encounter Care Teams Product Development Scientist Relationship Specialty Start Date End Date Radha Villagran, BROWN SOURER [address] [place] [address] PCP - General Family Medicine 01/22/20 06/21/21 documented as of this encounter
--- OUTSIDE RECORDS SUMMARY | 2024-01-13 18:54 | XMS_ITS | Encounter Summary ---
Author Organization [facility] [place] [address] Care Team Providers Care Family Service Worker Name Role Phone Medardo Redman DO Primary Care Provider +1- [phone] Encounter Details Date Type Department Care Team (Latest Contact Info) Description 09/19/2022 Travel Social History Tobacco Use Types Packs/Day [...] on filedocumented in this encounter Care Teams Family Service Worker Relationship Specialty Start Date End Date Medardo Redman DO [address] [place] [address] PCP - General Family Medicine 06/22/21 documented as of this encounter
--- OUTSIDE RECORDS SUMMARY | 2024-01-13 18:54 | XMS_ITS | Encounter Summary ---
[place] [address] Care Team Providers Care Web Application Tester Name Role Phone Feroz Medardo Sen OLSEN Primary Care Provider +1- [phone] Reason for Referral * Diagnostic Test (Routine) - Closed Specialty Diagnoses / Procedures Referred By Contac t Referred To Contact Radiology Diagnoses Cavernous malformation Procedures MRI Brain wwo Contrast (Generic) Robert Rossi PA [facility] [place] [address] [place] [address] [place] [address] Referral ID Status Reason Start Date Expiration Date V isits Requested Visits Authorized [id number] Closed Specialty Service Requested 06/15/2021 12/12/2021 1 1 Reason for Visit * Diagnostic Test (Routine) - Closed Specialty Diagnoses / Procedures Referred By Contac t Referred To Contact Radiology Diagnoses Cavernous malformation Procedures MRI Brain wwo Contrast (Generic) Robert Rossi PA [facility] [place] [address] [place] [address] [place] [address] Referral ID Status Reason Start Date Expiration Date V isits Requested Visits Authorized [id number] Closed Specialty Service Requested 06/15/2021 12/12/2021 1 1 Encounter Details Date Type Department Care Team (Latest Contact Info) Description 06/22/2021 7:47 AM EDT Hospital Encounter MRI [facility] [place] [address] Chase Mackenzie MD [facility] [place] [address] Cavernous malformation Discharge Disposition: Home Social History [...] with spacer fluticasone propionate (Flonase) 50 mcg/actuation [place], Suspension 2 sprays by Each Nare route [...] as of this encounter Progress Notes * Em East RN - 06/22/2021 8:41 AM EDT MRI PRE-SEDATION ASSESSMENT NOTE NAME: Kimberli Bales AGE: 35 y.o. : 1985 [address] [place] [address] Female [phone] (home) Telephone Information: Radha Villagran APRN No primary care provider on file. Allergies Allergen Reactions ??? Oxycodone-Acetaminophen Shortness Of Breath ??? Red Dye Other (See Comments) Stops heart Date/Time of call: June 19, 20219:49 AM/ PREVIOUS MRI SCAN? Yes HEIGHT: 168.9 kg WEIGHT: 129.7 kg SCHEDULED SCAN: MRI BRAIN WWO CONTRAST (GENERIC) [[id number]] Order Questions Answers Clinical information / kimball questions for radiologist: s/p LEFT stereotactic ablation for cavernoma Where will study be performed? [facility] Radiology [120] Is the patient ? Unknown SUBJECTIVE: Anxiety CAN YOU LAY FLAT? Yes AIRWAY/BREATHING ISSUES? No DO YOU HAVE ANY INVOLUNTARY MOVEMENTS? No DO YOU HAVE ANY PAIN? No DO YOU TAKE PAIN MED ON A DAILY BASIS? No ASSESSMENT: Appropriate for PO sedation, has taken both ativan and valium in the past PLAN: Ativan 1 mg po prn x 2 ordered per protocol ( KV ) You must have a driver medic present when you check in. This patient has been informed that they require a driver medic to drive them home after this procedure. In the absence of a driver medic, IR will not be able to sedate for your scan. Pt verbalized understanding of these instructions during the pre-procedure education via phone. Yes Name of driver medic: (Matias) Phone number: PRIOR SCAN DATE/S SEDATION TYPE SUCCESSFUL [phone] Multiple MRIs No corresponding nursing notes 06/22/21 MRI brain wwo Ativan 1 mg PO x 2 Revised 07/16/17 documented in this encounter Plan [...] Comments MRI BRAIN WWO CONTRAST (GENERIC) Routine 06/22/2021 9:46 AM EDT Cavernous malformation documented in this [...] who have questions please contact the health chronic care nurse that requested your imaging first. ? 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 documented in this encounter Administered Medications Inactive Administered Medications - up to 3 most recent administrations Medication Order MAR Action Action Date Dose Rate Site LORazepam (Ativan) tablet 1 mg 1 mg, Oral, ONCE PRN, 2 doses, Starting on [place] 06/22/21 at 0713, Until [place] 06/22/21 at 0839, Anxiety, Angio/IR (Day of Procedure), Routine Given 06/22/2021 8:39 AM EDT 1 mg Given 06/22/2021 8:15 AM EDT 1 mg documented in this encounter Care Teams Web Application Tester Relationship Specialty Start Date End Date Medardo Redman DO [address] [place] [address] PCP - General Family Medicine 06/22/21 documented as of this encounter
--- OUTSIDE RECORDS SUMMARY | 2024-01-13 18:54 | XMS_ITS | Encounter Summary ---
Author [facility] [place] [address] Care Team Providers Care Manager Order Name Role Phone Feroz Medardo Sen OLSEN Primary Care Provider +1- [phone] Reason for Visit * Auth/Cert (Routine) Specialty Diagnoses / Procedures Referred By Stacy t Referred To Contact Diagnoses Seizure-like activity Refractory Seizures Eusebia Salguero MD [facility] [place] [address] [facility] Referral ID Status Reason Start Date Expiration Date Visits Re quested Visits Authorized [id number] 1 1 Encounter Details Date Type Department Care Team (Latest Contact Info) Description 09/24/2022 3:40 PM EDT - 09/24/2022 6:02 PM EDT Hospital En[place] [address] Discharge Disposition: Home Social History Tobacco Use Types Packs/Day Years Used Date Smoking Tobacco: Former Cigarettes 0.3 2 0 10/18/2015 - 10/17/2017 Smokeless Tobacco: Never Alcohol Use Standard Drinks/Week Comments Not Currently 0 (1 standard drink = 0.6 oz pur e alcohol) [facility] Inpatient Questions Answer Date Recorded Does Anyone [...] with spacer fluticasone propionate (Flonase) 50 mcg/actuation [place], Suspension 2 sprays by Each Nare route [...] on filedocumented in this encounter Care Teams Manager Order Relationship Specialty Start Date End Date Medardo Redman DO [address] [place] [address] PCP - General Family Medicine 06/22/21 documented as of this encounter
--- OUTSIDE RECORDS SUMMARY | 2024-01-13 18:54 | XMS_ITS | Encounter Summary ---
Author Organization [facility] Address [facility] [place] [address] Care Team Providers Care Laboratory Manager Name Role Phone Feroz Medardo Sen OLSEN Primary Care Provider +1- [phone] Encounter Details Date Type Department Care Team (Late st Contact Info) Description 08/09/2022 1:10 PM EDT Telehealth [place] [address] Telehealth, Neurology None Social History Tobacco Use Types Packs/Day Years [...] as of this encounter Miscellaneous Notes * Consult Note - Griselda Curtis MD - 08/09/2022 1:10 PM EDT [facility] EMERGENT TELENEUROLOGY CONSULT NOTE Date 08/09/22 Patient: Kimberli Bales : 1985 Gender: female VISIT Requesting Location: [place] Requesting Physician: Medardo Olson MD Consent obtained from: patient Diagnosis/Reason for Consult: Seizure Arrival Date: 08/09/2022 Arrival Time: 11:35 am Consult Request Time: 1:16 pm Start Time of Video Consult: 12:00 pm PROVIDER History: 36-year-old woman with previous history of migraine headache following at the headache clinic of [facility] in addition to psychogenic nonepileptic seizures diagnosedin 2019 and extensively evaluated with a EEG and brain scan capturing nonepileptic events. It seemsthat at the beginning of those episodes in the emergency room she was loaded loss of Keppra and then continued on Keppra 500 mg a.m. and 1000 mg p.m. that was not stopped down the road. In addition to that she takes Topamax 100 mg twice daily. Last time she followed neurology for her presumed seizures was in year 1999 and since then she has been seeing a local neurologist in [facility]. In addition to that she had left frontal cavernous malformation for which she underwent laser ablation by Dr. Mackenzie in December 2020 with a good outcome and subsequent improvement on her headache and seizure events. Left follow-up with neurosurgery was in June 2022 where she had brain MRI on 06/22 that was showing stability. Previously, neurology at [facility] is not believed that the cavernous formation was necessary but still reports for seizure or headaches considering the size and lack of epileptiform evidence on EEG. Today she presents reporting that while at the PCP office she had seizure episode of shaking that she cannot recall the details of which lasted for 15 minutes. While she was at the same building of this emergency room she was sent to the emergency room where she had another episode that according to the staff and provider was brief, indicated shaking of the arms while eyes were closed for 15 seconds before full recovery and stuttering of speech right after. The patient seems to be withdrawn andrefers to her to answer the questions. Head CT scan in the emergency room was reassuring. The patient complained of headache left severe well. Past Medical History: Past Medical History: Diagnosis Date Abnormal cervical Papanicolaou smear 09/09/2018 Allergy Anxiety Diverticulosis of colon 09/09/2018 Dysplasia of cervix 07/17/2006 Dysuria 07/17/2006 episodes of dysuria and frequency but all negative cultures. If sx develop check Micro, PLASTIC PANEL INSTALLER or stone. Environmental and seasonal allergies Epilepsy 01/09/2021 Glaucoma 12/21/2019 Hypertension 06/30/2019 Post-op bleeding 02/08/2012 Following Pyelonephritis 09/09/2018 Strabismus UTI (urinary tract infection) Patient Active Problem List Diagnosis Code Exotropia [...] s/p laser ablation 01/09/21 Q28.3 Epilepsy G40.909 Current Medications: traMADoL (Ultram) 50 mg Tablet busPIRone (Buspar) 5 mg Tablet topiramate (Topamax) 100 mg Tablet levETIRAcetam (KEPPRA) 1,000 mg Tablet amoxicillin (AMOXIL) 125 mg Tablet, Chewable benzonatate (Tessalon) 100 mg Capsule albuteroL 90 mcg/actuation HFA Aerosol Inhaler fluticasone propionate (Flonase) 50 mcg/actuation [place], Suspension diphenhydrAMINE (Benadryl) 25 mg Capsule LORazepam (Ativan) 1 mg Tablet pyridoxine, vitamin B6, (B-6) 100 mg Tablet loratadine (Claritin) 10 mg Tablet lisinopriL (Prinivil;Zestril) 40 mg Tablet citalopram (CeleXA) 40 mg Tablet b complex vitamins Tablet acetaminophen (Tylenol) 500 mg Tablet Allergies: Allergies Allergen Reactions Oxycodone-Acetaminophen Shortness Of Breath Red Dye Other (See Comments) Stops heart Neurologic Social History: Are you a current smoker or have you ever smoked: Smoking status: Former Packs/day: 0.25 Years: 2.00 Pack years: 0.50 Types: Cigarettes Quit date: 10/17/2017 Years since quittin.8 Do you consume alcohol: Denies Vitals: Pulse: 57 Blood Pressure: 121/68 NIH STROKE SCALE -not applicable Neurologic Examination: Patient is laying in bed. Defers to her to answer the questions. Speaks with stuttering but with intact structure and content. She is able to provide full history. Seems emotionally withdrawn. NIH score 0. she is awake alert oriented x3. Cranial nerve examination normal including 3,4,5,6,7,11, and 12. Motor function is intact with no drift in the upper or lower limbs. There were no abnormal movements. Sensation roughly to light touch is symmetrical bilaterally inthe upper and lower limbs. she had normal finger-nose and heel salazar examination bilaterally symmetrically. she had no truncal ataxia or nystagmus. Reflexes were not tested. Gait was deferred. Radiology Imaging Imaging/Results: Head CT scan was reassuring with no acute findings Labs: N/A CLINICAL IMPRESSION/DIAGNOSIS: Patient's presentation including the 2 episodes of shaking is highlyconsistent with nonepileptic pseudoseizure including the duration, recovery, lack of typical semiology, and associated surrounding features such as the clear stuttering of speech. She has previously diagnosed with PNES. Despite that she is on Keppra twice daily 500 mg / 1000 mg and Topamax 100 mg twice daily. I recommended not to change any other medications. Her outpatient neurologist is intending to get an EEG which I agree off to further elaborate and confirm the previous findings where the patient did not show blood to form or seizure-like activity. Management of her headache might be appropriate now which might reduce distress associated with her presentation and provide reassurance. Placing her on Benadryl and Reglan IV and following that magnesium infusion 1 g might help. RECOMMENDATIONS/PLAN: See clinical impression OBSERVATION/ADMISSION/TRANSFER: Observation until back to baseline or admit for observation documented in this encounter Plan of Treatment [...] on filedocumented in this encounter Care Teams Laboratory Manager Relationship Specialty Start Date End Date Medardo Redman DO [facility] [place] [address] PCP - General Family Medicine 06/22/21 documented as of this encounter
--- OUTSIDE RECORDS SUMMARY | 2024-01-13 18:54 | XMS_ITS | Encounter Summary ---
Author Organization [facility] [place] [address] Care Team Providers Care Neon Light Installer Name Role Phone VillagranRadha diaz Palma SALAS Primary Care Provider Reason for Visit * Auth/Cert Specialty Diagnoses / Procedures Referred By Stacy harper Referred To Contact Diagnoses Cavernous malformation Cavernous malformation Procedures PRO BRAIN AVM SURG, SUPRATENT, SIMPLE PRO STEREOTACTIC CPTR ASSTD PX CRANIAL, INTRADURAL PRO UNLISTED PROCEDURE NERVOUS SYSTEM @[email or web address]. FOR AVM,SUPRATENTORIAL, SIMPLE (WRVU 32.55) STEREOTACTIC COMPUTER-ASSTD NAVIGATIONAL CRANIAL INTRADURAL FOR LASER ABLATION STEREOTACTIC LASER ABLATION Referral ID Status Reason Start Date Expiration Date Visits Re quested Visits Authorized [id number] 1 1 Encounter Details Date Type Department Care Team (Latest Contact Info) Description 01/09/2021 5:43 AM EST - 01/10/2021 10:47 AM EST Hospital Encounter [facility] [place] [address] Chase Mackenzie MD [facility] [place] [address] [address] Cavernous malformation Discharge Disposition: Home Social History [...] Reading Time Taken Comments Blood Pressure 114/71 01/10/2021 7:19 AM EST Pulse 73 01/10/2021 7:19 AM EST Temperature 36.4 ??C (97.5 ??F) 01/10/2021 7:19 AM ES T Respiratory Rate 19 01/10/2021 7:19 AM EST Oxygen Saturation 98% 01/10/2021 7:19 AM EST Inhaled Oxygen Concentration - - Weight 119.7 kg (264 lb) 01/09/2021 6:13 AM EST Height 170.2 cm (5' 7) 01/09/2021 6:13 AM EST Body Mass Index 41.35 01/09/2021 6:13 AM EST documented in this encounter Discharge Summaries * Brittany Castle PA - 01/10/2021 8:40 AM EST Patient Name: Kimberli Bales Patient Age: 35 y.o. Admit date: 01/09/2021 Discharge Date and Time: 01/10/21 9:43 AM Attending Physician: Chase Mackenzie MD Discharging Provider: YUE Ring Discharging Service: NEUROSURGERY Operations/Major Procedures: 01/09/2021: Chase Mackenzie MD: LEFT stereotactic ablation for cavernoma Active Hospital Problems: Active Hospital Problems Diagnosis ??? Epilepsy Resolved Hospital Problems No resolved problems to display. Active Non Hospital Problems: Active Non-Hospital Problems Diagnosis ??? Cavernous malformation ??? Recurrent syncope ??? Chronic nasal congestion ??? Mood changes ??? Glaucoma ??? Altered mental status ??? Complicated migraine ??? Class 3 severe obesity due to excess calories with serious comorbidity and body mass index (BMI) of 50.0 to 59.9 in adult ??? Obstructive sleep apnea ??? Hypertension ??? Hemicrania continua ??? Anxiety ??? Idiopathic intracranial hypertension ??? Neurological deficit present ??? Menorrhagia ??? Exotropia History of Presentation: Per review of relevant records 35 yo woman with a left frontal cavernoma, expanded over time with evidence of bleeding in the past, now presented for stereotactic laser ablation of the cavernoma to prevent repeat bleeding. Hospital Course: Kimberli Bales presented 01/09/2021 and underwent elective LEFT stereotactic ablation for cavernoma in the OR with Dr. Mackenzie. Incision was closed with absorbable sutures. There were no complications with the procedure. Patient tolerated the procedure well. Post-op imaging was appropriate. Following the procedure patient was awakened in the PACU and then transferred to the neuro step-down unit for close neurological monitoring. There was concern for hematoma at her RIGHT temporal pin site;however no drainage was noted and hemoglobin was stable the morning after surgery. Patient was discharged in stable condition 01/10/21 At time of discharge patient is afebrile, tolerating a regular diet, ambulating independently, voiding spontaneously, and managing pain with oral pain medications. Physical Exam on Day of Discharge: GEN:NAD NEURO: A+Ox3 Speech fluent and appropriate. PERRL. EOMI. No facial asymmetry MOTOR: RUE:5/5 LUE: 5/5 RLE: 5/5 LLE: 5/5 No pronator drift LT sensation intact x 4 R temporal swelling (at pin site); no drainage Incision dry and intact Important Studies and Lab Data: Labs: Recent Results (from the past 24 hour(s)) Basic Metabolic Panel (non-fasting) Result Value Ref Range Glucose Lvl 117 65 - 199 mg/dL BUN 6 (L) 8 - 18 mg/dL Creatinine 0.53 (L) 0.70 - 1.20 mg/dL Sodium 138 135 - 145 mmol/L Potassium 4.1 3.5 - 5.0 mmol/L Chloride 108 (H) 98 - 107 mmol/L CO2 19 (L) 22 - 31 mmol/L Anion Gap 11 5 - 15 mmol/L Calcium 9.0 8.5 - 10.5 mg/dL Estimated GFR 121 >=60 mL/min/1.73 m?? Hemogram Result Value Ref Range WBC 14.2 (H) 4.0 - 9.5 x10(3)/mcL RBC 4.32 4.00 - 5.21 x10(6)/mcL Hemoglobin 12.6 11.7 - 15.5 g/dL Hematocrit 38.9 35.7 - 45.8 % MCV 90.0 82.6 - 94.4 fL MCH 29.2 27.1 - 32.0 pg MCHC 32.4 31.7 - 35.0 g/dL Platelets 287 145 - 357 x10(3)/mcL RDWSD 41.0 37.0 - 46.0 fL RDWCV 12.4 11.5 - 14.1 % MPV 9.8 7.6 - 12.9 fL nRBC % Auto 0.0 % nRBC Abs Auto 0.000 0.000 - 0.000 x10(3)/mcL Differential, Automated Result Value Ref Range Neutrophils % 84.8 % Neutr Abs (ANC) 12.02 (H) 1.70 - 6.10 x10(3)/mcL Lymphocytes % 11.4 % Lymphocytes Abs 1.6 0.9 - 3.2 x10(3)/mcL Monocytes % 3.3 % Monocyte Abs 0.5 0.3 - 0.9 x10(3)/mcL Eosinophils % 0.0 % Eosinophils Abs 0.0 0.0 - 0.4 x10(3)/mcL Basophils % 0.1 % Basophils Abs 0.0 0.0 - 0.1 x10(3)/mcL Immature Gran % 0.40 % Roberta Gran Abs 0.06 (H) 0.00 - 0.04 x10(3)/mcL Studies: Results for orders placed or performed during the hospital encounter of 01/09/21 MRI Brain wwo Contrast (Generic) (Exam End: 01/09/2021 2:30 PM) Impression Preoperative and intraoperative imaging for surgical guidance. Expected findings. Thank you for letting us participate in the care of this patient. If you are a health care provider and have any questions regarding this report, please contact the number below. For patients who have questions please contact the health rn progressive care unit that requested your imaging first. Electronically signed by: Nathanael Hurtado MD, [facility] ([phone]), at 01/09/2021 3:25 PM Pending Studies and Lab Data: N/A Discharge Condition: Stable Discharge to: Home Discharge Medications: Your Medications New Medications Dose Details dexamethasone 1 mg Tab Commonly known as: DECADRON 4 tabs twice daily tonight, then 4 tabs twice daily for 3 days, 2 tabs twice daily for 3 days, 1 tab twice daily for 3 days, 1 tab daily for 3 days, then stop. Quantity: 49 tablet Refills: 3 traMADoL 50 mg Tab Commonly known as: Ultram Take 1 tablet by mouth every 6 hours as needed for Pain. 50 mg Quantity: 8 tablet Refills: 0 Continued medications, unchanged Dose Details acetaminophen 500 mg Tab Commonly known as: Tylenol Take 1,000 mg by mouth every 6 hours as needed for Pain. 1,000 mg Refills: 0 albuteroL 90 mcg/actuation Hfaa Inhale 1 puff into the lungs every 4 hours as needed for Wheezing. Use with spacer 1 puff Refills: 0 amoxicillin 125 mg Chew Commonly known as: AMOXIL Take 125 mg by mouth 2 times daily. 125 mg Refills: 0 b complex vitamins Tab Take 1 tablet by mouth daily. 1 tablet Refills: 0 benzonatate 100 mg Cap Commonly known as: Tessalon Take 100 mg by mouth 2 times daily as needed for Cough. 100 mg Refills: 0 busPIRone 5 mg Tab Commonly known as: Buspar Take 10 mg by mouth 3 times daily. 10 mg Refills: 0 citalopram 40 mg Tab Commonly known as: CeleXA TAKE 1 TABLET BY MOUTH ONCE DAILY Refills: 0 diphenhydrAMINE 25 mg Cap Commonly known as: Benadryl Take by mouth nightly as needed. Refills: 0 fluticasone propionate 50 mcg/actuation Spsn Commonly known as: Flonase 2 sprays by Each Nare route 2 times daily. 2 spray Refills: 0 levETIRAcetam 1,000 mg Tab Commonly known as: KEPPRA Take 1,000 mg by mouth 2 times daily. 1,000 mg Refills: 0 lisinopriL 40 mg Tab Commonly known as: Zestril Take 1 tablet by mouth daily. 40 mg Quantity: 90 tablet Refills: 3 loratadine 10 mg Tab Commonly known as: Claritin Take 10 mg by mouth daily. 10 mg Refills: 0 LORazepam 1 mg Tab Commonly known as: Ativan Take by mouth as needed. Refills: 0 pantoprazole EC 40 mg Tbec Commonly known as: Protonix Take 1 tablet by mouth daily for 13 days. 40 mg Quantity: 13 tablet Refills: 0 pyridoxine (vitamin B6) 100 mg Tab Commonly known as: B-6 Take 100 mg by mouth daily. 100 mg Refills: 0 topiramate 100 mg Tab Commonly known as: Topamax Take 100 mg by mouth 2 times daily. 100 mg Refills: 0 Updated Allergies/ADRs: Allergies Allergen Reactions ??? Oxycodone-Acetaminophen Shortness Of Breath ??? Red Dye Other (See Comments) Stops heart Follow-up Recommendations for Providers: Please see Discharge Instructions Outpatient referrals: N/A Instructions Given to Patient at Discharge: Patient Instructions DISCHARGE INSTRUCTIONS PRESCRIPTION INSTRUCTIONS: Please see the medication reconciliation list on this discharge summary for a current list of your medications. Stop the use of blood thinning medications until instructed otherwise by your surgical team. This includes medications known as antiplatelet, anticoagulant, and non-steroidal anti-inflammatory (NSAIDs) drugs. Common vkek-imk-iiceiew medications which should be avoided include Aspirin, ibuprofen, and naproxen among others. These medications are sometimes combined with other drugs or are sold undera trade name. Common prescription medications which should be avoided include Plavix (clopidogrel) and Coumadin (warfarin) among others. The following medications are commonly prescribed. An [x] indicates that these medications have been prescribed for you. [x] Steroids - anti-inflammatory: Decadron (dexamethasone) Steroids are commonly prescribed after surgery to reduce swelling in the brain. This medication is often gradually reduced until discontinued or to a lower level to be assessed again at follow up. Ifyou experience any symptoms during the tapering schedule, please call the Neurosurgery office. Decadron taper as follows: 49 tablets total - 4 tabs tonight, then 4 tabs twice daily for 3 days, 2 tabs twice daily for 3 days, 1 tab twice daily for 3 days, 1 tab daily for 3 days, then stop. If you have questions about this taper please call our offices or ask your pharmacist. [x] PPIs or H2 blockers - Gastrointestinal prophylaxis: medications such Protonix or Pepcid (famotidine) PPIs or H2 blockers are commonly prescribed after surgery to protect your stomach while you are taking steroids. Once you have finished taking the steroids you may stop this medication. If this is a home medication, please continue taking. [x] Opioids - Pain relief: Tramadol 50mg every 6 hours as needed for acute pain Opioids are commonly prescribed for severe pain. DO NOT use alcohol, drive, or operate heavy machinery while taking these medications. These medications may cause constipation. WHEN TO SEEK MEDICAL CARE: Signs or symptoms of an infection - Fever over 101F - Redness, swelling, or increasing pain around your incision - Drainage of pus, blood, or clear fluid from your incision New neurologic symptoms - Worsening headaches not controlled with your pain medication - Drowsiness, confusion, and lethargy - Visual changes - Difficulty speaking or slurred speech - Facial droop - New weakness or sensory changes - New unsteadiness when walking - Seizures Constipation not relieved by diet and over the counter stool softeners and laxatives Nausea/vomiting (upset stomach) not controlled with anti-nausea medication Symptoms of a deep venous thrombosis (DVT) or pulmonary embolism (PE): - Swelling/warmth/redness of the leg - Pain in the leg, which can be worse with standing or walking - Chest pain or shortness of breath To help prevent a DVT: - Exercise regularly. Walking, at least several times daily, is helpful. - Ankle pump exercises (like pressing and releasing the gas pedal) should be done regularly. - Keep hydrated with water or other clear liquids (coffee/tea/cola can dehydrate you). - Avoid alcohol and crossing your legs. - Remember not to sit or lay in bed, while awake, for prolonged amounts of time. WOUND CARE: - Keep incisional site clean and dry. You can remove your dressing 2 days after surgery, if not removed prior to discharge. - You may shower and shampoo incisional site, per your usual routine, 4 days after surgery. DIET: - You may resume your usual diet. - A well-balanced diet is recommended for wound healing. - Prune juice or prunes can be added to your diet to assist with any constipation. ACTIVITY: - You may increase your activities as tolerated. - Restrict strenuous activity (such as running, jumping, jogging, shoveling, etc.) until cleared byyour surgical team. DRIVING: - Do not drive while taking narcotic pain medication. - You may return to driving 2 weeks after surgery. FOLLOW UP PLAN: Incision: Your sutures are absorbable and do not need to be removed. Appointments: Please follow-up in the Neurosurgery Clinic in 4-[address] Mackenzie. Please call the Neurosurgery Office at [phone] if you do not receive a scheduled appointment within two weeks. Imaging: No Imaging required at follow-up. HOW TO REACH NEUROSURGERY Office Hours: Saturday through Saturday, 8am-5pm. Call . On weekends or after office hours: Call [phone] and ask the honing machine operator semiautomatic to page the Neurosurgery Resident/Advanced Practice Provider police officer crime prevention. IMPORTANT PHONE NUMBERS: Outpatient Nurse (Patricia Islas) Inpatient Nurses Neurosurgical Resident/Advanced Practice Provider On-Call (after 5pm or before 8am) Neurosurgery offices (Saturday through Saturday between 8am-5pm): Adult Neurosurgery Dr. Chase Spann Pediatric Neurosurgery Dr. Janet Torres Advanced Practice Providers Eusebia Navas, Nurse Practitioner (outpatient) Brittany Castle, Physician Food Concession Manager (inpatient) Nida Childress, Nurse Practitioner (inpatient) Jodi Jett, Nurse Practitioner (inpatient) Olimpia Cruz, Physician Food Concession Manager (inpatient) Olimpia Moore, Physician Food Concession Manager (inpatient) Dali Cali, Physician Food Concession Manager (outpatient: spine) Myke Pinto, Nurse Practitioner (inpatient/outpatient) Robert Rossi, Physician Food Concession Manager (outpatient) Tiffanie Wilson, Nurse Practitioner (outpatient: neuro-oncology) HOW TO REACH NEUROSURGERY Contact your Doctor Office Hours: Saturday through Saturday, 8am-5pm. Call . On weekends or after office hours: Call [phone] and ask the honing machine operator semiautomatic to page the Neurosurgery Resident police officer crime prevention. IMPORTANT PHONE NUMBERS: Outpatient Nurse (Patricia Islas) Inpatient Nurses Neurosurgical Resident On-Call (after 5pm or before 8am) Neurosurgery offices (Saturday through Saturday between 8am-5pm): Adult Neurosurgery Dr. Chase Spann Pediatric Neurosurgery Dr. Janet Torres Advanced Practice Providers Eusebia Navas, Nurse Practitioner (outpatient) Brittany Castle, Physician Food Concession Manager (inpatient) Nida Childress, Nurse Practitioner (inpatient) Olimpia Cruz, Physician Food Concession Manager (inpatient) Jodi Jett, Nurse Practitioner (inpatient) Olmipia Moore, Physician Food Concession Manager (inpatient) Dali Cali, Physician Food Concession Manager (outpatient: spine) Myke Pinto, Nurse Practitioner (inpatient/outpatient) Robert Rossi, Physician Food Concession Manager (outpatient) Tiffanie Wilson, Nurse Practitioner (outpatient: neuro-oncology) * Your surgeon may not be scallop cutter machine, so be ready to tell about yourself and your surgery when you call, especially after hours or on the weekend. YUE Ring 01/10/2021 documented in this encounter Discharge Instructions * Patient Instructions* Brittany Castle PA - 01/10/2021 9:39 AM EST DISCHARGE INSTRUCTIONS PRESCRIPTION INSTRUCTIONS: Please see the medication reconciliation list on this discharge summary for a current list of your medications. Stop the use of blood thinning medications until instructed otherwise by your surgical team. This includes medications known as antiplatelet, anticoagulant, and non-steroidal anti-inflammatory (NSAIDs) drugs. Common oczb-olc-gxnlqit medications which should be avoided include Aspirin, ibuprofen, and naproxen among others. These medications are sometimes combined with other drugs or are sold undera trade name. Common prescription medications which should be avoided include Plavix (clopidogrel) and Coumadin (warfarin) among others. The following medications are commonly prescribed. An [x] indicates that these medications have been prescribed for you. [x] Steroids - anti-inflammatory: Decadron (dexamethasone) Steroids are commonly prescribed after surgery to reduce swelling in the brain. This medication is often gradually reduced until discontinued or to a lower level to be assessed again at follow up. Ifyou experience any symptoms during the tapering schedule, please call the Neurosurgery office. Decadron taper as follows: 49 tablets total - 4 tabs tonight, then 4 tabs twice daily for 3 days, 2 tabs twice daily for 3 days, 1 tab twice daily for 3 days, 1 tab daily for 3 days, then stop. If you have questions about this taper please call our offices or ask your pharmacist. [x] PPIs or H2 blockers - Gastrointestinal prophylaxis: medications such Protonix or Pepcid (famotidine) PPIs or H2 blockers are commonly prescribed after surgery to protect your stomach while you are taking steroids. Once you have finished taking the steroids you may stop this medication. If this is a home medication, please continue taking. [x] Opioids - Pain relief: Tramadol 50mg every 6 hours as needed for acute pain Opioids are commonly prescribed for severe pain. DO NOT use alcohol, drive, or operate heavy machinery while taking these medications. These medications may cause constipation. WHEN TO SEEK MEDICAL CARE: Signs or symptoms of an infection - Fever over 101F - Redness, swelling, or increasing pain around your incision - Drainage of pus, blood, or clear fluid from your incision New neurologic symptoms - Worsening headaches not controlled with your pain medication - Drowsiness, confusion, and lethargy - Visual changes - Difficulty speaking or slurred speech - Facial droop - New weakness or sensory changes - New unsteadiness when walking - Seizures Constipation not relieved by diet and over the counter stool softeners and laxatives Nausea/vomiting (upset stomach) not controlled with anti-nausea medication Symptoms of a deep venous thrombosis (DVT) or pulmonary embolism (PE): - Swelling/warmth/redness of the leg - Pain in the leg, which can be worse with standing or walking - Chest pain or shortness of breath To help prevent a DVT: - Exercise regularly. Walking, at least several times daily, is helpful. - Ankle pump exercises (like pressing and releasing the gas pedal) should be done regularly. - Keep hydrated with water or other clear liquids (coffee/tea/cola can dehydrate you). - Avoid alcohol and crossing your legs. - Remember not to sit or lay in bed, while awake, for prolonged amounts of time. WOUND CARE: - Keep incisional site clean and dry. You can remove your dressing 2 days after surgery, if not removed prior to discharge. - You may shower and shampoo incisional site, per your usual routine, 4 days after surgery. DIET: - You may resume your usual diet. - A well-balanced diet is recommended for wound healing. - Prune juice or prunes can be added to your diet to assist with any constipation. ACTIVITY: - You may increase your activities as tolerated. - Restrict strenuous activity (such as running, jumping, jogging, shoveling, etc.) until cleared byyour surgical team. DRIVING: - Do not drive while taking narcotic pain medication. - You may return to driving 2 weeks after surgery. FOLLOW UP PLAN: Incision: Your sutures are absorbable and do not need to be removed. Appointments: Please follow-up in the Neurosurgery Clinic in 4-[address] Mackenzie. Please call the Neurosurgery Office at [phone] if you do not receive a scheduled appointment within two weeks. Imaging: No Imaging required at follow-up. HOW TO REACH NEUROSURGERY Office Hours: Saturday through Saturday, 8am-5pm. Call . On weekends or after office hours: Call [phone] and ask the honing machine operator semiautomatic to page the Neurosurgery Resident/Advanced Practice Provider police officer crime prevention. IMPORTANT PHONE NUMBERS: Outpatient Nurse (Patricia Islas) Inpatient Nurses Neurosurgical Resident/Advanced Practice Provider On-Call (after 5pm or before 8am) Neurosurgery offices (Saturday through Saturday between 8am-5pm): Adult Neurosurgery Dr. Chase Spann Pediatric Neurosurgery Dr. Janet Torres Advanced Practice Providers Eusebia Navas, Nurse Practitioner (outpatient) Brittany Castle, Physician Food Concession Manager (inpatient) Nida Childress, Nurse Practitioner (inpatient) Jodi Jett, Nurse Practitioner (inpatient) Olimpia Cruz, Physician Food Concession Manager (inpatient) Olimpia Moore, Physician Food Concession Manager (inpatient) Dali Cali, Physician Food Concession Manager (outpatient: spine) Myke Pinto, Nurse Practitioner (inpatient/outpatient) Robert Rossi, Physician Food Concession Manager (outpatient) Tiffanie Wilson, Nurse Practitioner (outpatient: neuro-oncology) documented in this encounter Medications at Time [...] with spacer fluticasone propionate (Flonase) 50 mcg/actuation [place], Suspension 2 sprays by Each Nare route [...] every 6 hours as needed for Pain. pantoprazole EC (Protonix) 40 mg Tablet, Delayed Release (E.C.) Take 1 tablet by mouth daily for 13 days. 13 tablet 01/10/2021 01/23/2021 traMADoL (Ultram) 50 mg Tablet Take 1 [...] as of this encounter Progress Notes * Randee Leahy RN - 01/10/2021 10:47 AM EST D/C planning: Team: Neurosurg Pager: [phone] Pt to d/c home via private vehicle. Pt/team feel no d/c needs identified at this time. Pt is aware of d/c plan. Randee Leahy MSN-Ed, RN ACM department assistant Office of Care Management Pager #[phone] * Digna Prabhakar RN - 01/10/2021 10:32 AM EST Kimberli Bales discharged to Home by private car with Spouse. All belongings sent with patient.MARCELINO removed, incision healing well, skin free from pressure ulcers. Discharge instructions, medications, and follow-up appointments reviewed, education provided, all questions answered. Patient instructed to call with concerns. * Nida Childress APRN - 01/09/2021 8:54 PM EST Interval progress note: Called by RN re: patient complaining of all over head pain and noted by RN to have swelling LEFT temporal area. Patient is also c/o nausea. Exam: Lying on RIGHT side in hospital bed Awake, A&Ox3 PERRL EOMI Speech fluent and appropriate Motor: 5/5 RIGHT temporal pin site with some swelling, no drainage noted. LEFT frontal surgical incision C/D/I A/P: 35 year old female with LEFT frontal cavernoma s/p sterotactic laser ablation. She is neurologically intact complaining of a generalized headache and some nausea. There appears to be a small hematoma at the RIGHT temporal area pin site without drainage and the LEFT frontal surgical site is C/D/I. 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 Oriented to room, call eubanks within reach, educated on importance of using prior to getting OOB, AVSS, incision healing well, bed locked in low position, purposeful hourly rounding, bed alarm on. * Mattie Mendez RN - 01/09/2021 4:26 PM EST Uneventful post op course s/p crani and laser tx of L cavernous AVM Neuro intact Weepy on awakening motor strong Report to NSCU RN Moderate amt of drainage Behind head Complete linen change C/o pain Medicated with Dilaudid 0.4mg for pain Of 8/10 No meds available yet for routine meds 1635 Transported, monitored to NSCU by two RN's * Elder Cuenca MD - 01/09/2021 3:52 PM EST NEUROSURGERY PROGRESS NOTE ID: Kimberli Bales is a 35 y.o. 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 levETIRAcetam 1,000 mg Oral BID ??? pantoprazole EC 40 mg Oral Daily Or ??? pantoprazole 40 mg Intravenous Daily ??? dexamethasone 4 mg Intravenous Q6H ANA Or ??? dexamethasone 4 mg Oral Q6H ANA Continuous Infusions: ??? sodium chloride 0.9% infusion 1,000 mL Intravenous Continuous ### PRN Meds: sodium chloride 0.9 % (flush), lidocaine, naloxone, HYDROmorphone OR HYDROmorphone, prochlorperazine, ondansetron OR ondansetron, acetaminophen OR acetaminophen OR acetaminophen, labetaloL, hydrALAZINE EXAM: Vitals: Temp: [36.6 ??C (97.9 ??F)-36.9 ??C (98.4 ??F)] Heart Rate: [77-116] Resp: [12-32] BP: (120-138)/(70-75) SpO2: [95 %-97 %] Heart Rate from SpO2: [116 bpm-121 bpm] BMI: Weight: 119.7 kg (264 lb) (01/09/21 0613) BMI (Calculated): 41.34 BMI Classification: Morbid Obesity I/O: No intake/output data recorded. GEN:NAD NEURO:AA+Ox3 Speech fluent and appropriate. Naming and repetition intact. PERRL. EOMI. Visual ling full to confrontation. No facial asymmetry Tongue midline MOTOR: RUE:5/5 LUE:5/5 RLE: 5/5 LLE: 5/5 No pronator drift LT sensation intact x 4 Incisions CDI LABS: No results for input(s): WBC, HGB, PLATELET in the last 72 hours. No results for input(s): NA, K, CL, CO2, BUN, CREATININE in the last 72 hours. No results for input(s): PT, INR in the last 72 hours. IMAGING: complete Assessment: Kimberli Bales is a 35 y.o. 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 Stable post op Problem List: Left frontal cavernoma Plan: - Q2HNC - Pain control - Imaging: complete - Dex 4Q6H - DVT ppx: SCDs, Hold anticoagulation/antiplatelet - Current Diet: Regular diet PLEASE PAGE [phone] WITH QUESTIONS Active Hospital Problems Diagnosis ??? Epilepsy Resolved Hospital Problems No resolved problems to display. Active Non-Hospital Problems Diagnosis ??? Cavernous malformation ??? Recurrent syncope ??? Chronic nasal congestion ??? Mood changes ??? Glaucoma ??? Altered mental status ??? Complicated migraine ??? Class 3 severe obesity due to excess calories with serious comorbidity and body mass index (BMI) of 50.0 to 59.9 in adult ??? Obstructive sleep apnea ??? Hypertension ??? Hemicrania continua ??? Anxiety ??? Idiopathic intracranial hypertension ??? Neurological deficit present ??? Menorrhagia ??? Exotropia Elder Cuenca MD 01/09/2021 documented in this encounter H&P Notes * Elder Cuenca MD - 01/09/2021 6:47 AM EST 24-HOUR UPDATE Kimberli Bales was seen in SDP. No interval events or changes in health status since preoperative H+P (see EPIC). Denies angina/dyspnea/fevers or malaise within the last 14 days. All questions were answered. Stable for surgery as scheduled. General: No acute distress Cardiovascular: Regular rate and rhythm Pulmonary: Clear to ascultation bilaterally NEURO:AA+Ox3 Speech fluent and appropriate. Naming and repetition intact. PERRL. EOMI. Visual ling full to confrontation. No facial asymmetry Tongue midline MOTOR: RUE:5/5 LUE:5/5 RLE: 5/5 LLE: 5/5 No pronator drift LT sensation intact x 4 Elder Cuenca MD documented in this encounter Miscellaneous Notes * Plan of Care - Paul Knight RN - 01/09/2021 9:44 PM EST OUTCOME EVALUATION NOTE: OUTCOME SUMMARY: Pt. AO x4, AVSS on RA. Strengths 5 overall, denies NT. C/O right sided head pain, noted localized swelling on same area. Team made aware and was seen by MARKETING TECHNOLOGY SPECIALIST. Single dose tramadol given to positive effect. Up to bath, 1 assist. Slept intermittently. Will continue to monitor. PLAN MOVING FORWARD: Maintain safety Pain mgmt INDIVIDUALIZED FALL PREVENTION INTERVENTIONS: Patient-specific fall risk factors per assessment: Pain Hospital Env't Assistance:1 assist, FWW Supervision:Arms reach Surveillance: Bed locked in low position, call eubanks within reach, purposeful hourly rounding, clutter free environment, bed/chair alarm on Patient-specific fall prevention interventions for sensory deficits provided: N/A CPG GOAL OUTCOME EVALUATION: Continue care plan as documented. * Brief Op Note - Elder Cuenca MD - 01/09/2021 2:24 PM EST Brief Operative Note Patient Name: Kimberli Bales : [id number] MR#: [id number] Case Date: 01/09/2021 Surgeon: Surgeon(s) and Role: * Chase Mackenzie MD - Primary * Elder Cuenca MD - Resident Preoperative diagnosis: Cavernous malformation Postoperative diagnosis: Cavernous malformation Procedure(s) (LRB): @CRANI-SURG. FOR AVM,SUPRATENTORIAL, SIMPLE (WRVU 32.55) (Left) STEREOTACTIC COMPUTER-ASSTD NAVIGATIONAL CRANIAL INTRADURAL FOR LASER ABLATION (Left) STEREOTACTIC LASER ABLATION (N/A) Anesthesia: General Findings: successful ablation of cavernous malformation Complications: none Estimated Blood Loss: 2cc Specimens removed during surgery: None Fluids: Intraprocedure Crystalloid Total None PRBCs: none (See Anesthesia Record/Report for Other Blood Products) Urine Output: 75 mL Drains: none Disposition: awakened from anesthesia, extubated and taken to the recovery room in a stable condition, having suffered no apparent untoward event. Condition: doing well without problems (Please see the Surgical Encounter Summary for any Implant and Specimen details pertinent to this patient.) Elder Cuenca MD * Op Note - Chase Mackenzie MD - 01/09/2021 11:15 AM EST [place] Operative Note Patient Name: Kimberli Bales : [id number] MR#: [id number] Case Date: 01/09/2021 Surgeon: Surgeon(s) and Role: * Chase Mackenzie MD - Primary * Elder Cuenca MD - Resident Preoperative diagnosis: Cavernous malformation Postoperative diagnosis: Cavernous malformation Procedure: 1)??Clearpoint MRI guided implantation of left frontal laser ablation fiber 2) craniotomy for ablation of left frontal AVM (cavernous malformation) 3) Stereotactic navigation using ClearPoint Anesthesia: General Estimated Blood Loss: 5cc Specimens removed during surgery: None Drains: None Surgical Closure: Primary Closure - skin incision is completely closed without any wires, eber, drains or other devices Disposition: awakened from anesthesia, extubated and taken to the recovery room in a stable condition, having suffered no apparent untoward event. Condition: doing well without problems (Please see the Surgical Encounter Summary for any Implant and Specimen details pertinent to this patient.) HPI/Surgical Indications: 35 yo woman with a left frontal cavernoma, expanded over time with evidence of bleeding in the past, now presented for stereotactic laser ablation of the cavernoma to prevent repeat bleeding. Risks including risks to language and risks of partial/incomplete treatment were discussed in detail and a consent for surgery was obtained. Procedure Description: The patient was brought to the operating room and transferred from the stretcher to the operative room table.??She??was monitored by the anesthesia team and following induction of general anesthesia??she??was intubated. Her??head was then placed in??the 4-point head tennis professional.??She??was positioned supine with her??head midline and neutral.??We clipped her hair in the left frontal region. We then used 1000 drapes to delineate an area around the planned entry. We then prepped and draped in the usualsterile fashion. We performed a [facility] mandatory hard stop timeout, confirming the patient's name, medical record number, laterality of procedures, and imaging. The Clearpoint grid was then placed andan MRI was obtained. We then confirmed our entry location on the grid and marked this the awl in tothe bone. We then used the scalp-mount tower mounted directly over this location. We then obtained an MRI to confirm position and used the ClearPoint software to stereotactically plan our intra-op trajectory. After a series of manipulations of the Clearpoint frames, we moved the XY stage to our pre-planned position and following this set the angulations to reach our planning target of the deep left frontal AVM. We then drilled through the bone using the [employer] CD4 drill. We then confirmed our trajectory again using the MRI and placed a ceramic stylet to 1.5 cm short of target. With this confirmed, we placed the BAR[employer] Visualase laser catheter and fiber to target and confirmed this on MRI. 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 A post-operative MRI was obtained.?? We then removed the laser fiber and ClearPoint frame and placed a suture at the entry site covered with Dermabond. We then removed all draping. Her??head was then removed from the head tennis professional. She was thenallowed to awaken from anesthesia, was extubated, and then brought to the PACU for recovery. Infection Bundle used? N/A Attestation: Case Date: 01/09/2021 I was present and I participated during the entire procedure (does not need to include opening and closing). Chase Mackenzie MD 01/09/2021 documented in this encounter Plan of Treatment [...] Procedure Name Priority Date/Time Associated Diagnosis Comments HEMOGRAM Routine 01/10/2021 5:50 AM EST DIFFERENTIAL, AUTOMATED Routine 01/10/2021 5:50 AM EST HC CBC,PLT & AUTO DIFF Routine 01/10/2021 5:50 AM EST HC VENIPUNCTURE Routine 01/10/2021 5:50 AM EST MRI BRAIN WWO CONTRAST (GENERIC) Routine 01/09/2021 2:30 PM EST Unlisted Procedure Nervous System (83914) Yes 01/09/2021 7:48 AM EST Cavernous malformation Stereotactic Cptr Asstd Px Cranial, Intradural (13296) Yes 01/09/2021 7:48 AM EST Cavernous malformation Brain Avm Surg, Supratent, Simple ([id number]) Yes 01/09/2021 7:48 AM EST Cavernous malformation RAPID COVID-19 PCR ([facility]) Routine 01/09/2021 7:16 AM EST CRANI-SURG. FOR AVM,SUPRATENTORIAL, SIMPLE Routine 01/09/2021 5:55 AM EST Cavernous malformation documented in this encounter Results * (ABNORMAL) Differential, Automated (01/10/2021 5:50 AM EST) Neutrophil % 84.8 % [facility] Neutrophil Absolute 12.02(H) 1.70 - 6.10 x10(3)/mc L [facility] Lymph % 11.4 % [facility] Lymphocytes Abs 1.6 0.9 - 3.2 x10(3)/mc L [facility] Monocyte % 3.3 % [facility] Monocyte Abs 0.5 0.3 - 0.9 x10(3)/mc L [facility] Eos % 0.0 % [facility] Eosinophils Abs 0.0 0.0 - 0.4 x10(3)/mc L [facility] Basophil % 0.1 % [facility] Baso Absolute 0.0 0.0 - 0.1 x10(3)/mc L [facility] Immature Gran % 0.40 % [facility] Comment: Immature granulocytes(IG's)percentage and absolute count will include metamyelocytes, myelocytes, and promyelocytes. Blood smears from CBCs yielding IG's will be scanned manually for concordance. If this scan disagrees with the automated IG or if promyelocytes are noted, a manual differential will be performed. Immature Gran Absolute 0.06(H) 0.00 - 0.04 x10(3)/mc L [facility] Blood 01/10/2021 5:50 AM EST 01/10/2021 6:02 AM EST Narrative Resulting Agency Comment Spec In Lab Elder Cuenca MD HEMATOLOGY ORDERABLE S [facility] [place] [address] * (ABNORMAL) Hemogram (01/10/2021 5:50 AM EST) White Blood Cell 14.2(H) 4.0 - 9.5 x10(3)/mc L [facility] Red Blood Cell 4.32 4.00 - 5.21 x10(6)/mc L [facility] Hemoglobin 12.6 11.7 - 15.5 g/dL [facility] Hematocrit 38.9 35.7 - 45.8 % [facility] Mean Cell Volume 90.0 82.6 - 94.4 fL [facility] Mean Cell Hemoglobin 29.2 27.1 - 32.0 pg [facility] Mean Cell Hemoglobin Concentration 32.4 31.7 - 35.0 g/dL [facility] Platelet 287 145 - 357 x10(3)/mc L [facility] RDW Standard Deviation 41.0 37.0 - 46.0 fL [facility] RDW coefficient of variation 12.4 11.5 - 14.1 % [facility] Mean Platelet Volume 9.8 7.6 - 12.9 fL [facility] NRBC% auto 0.0 % [facility] NRBC Absolute 0.000 0.000 - 0.000 x10(3)/mc L [facility] Blood 01/10/2021 5:50 AM EST 01/10/2021 6:02 AM EST Narrative Resulting Agency Comment Spec In Lab Elder Cuenca MD HEMATOLOGY ORDERABLE S [facility] [place] [address] * (ABNORMAL) Basic Metabolic Panel (non-fasting) (01/10/2021 5:50 AM EST) Glucose 117 65 - 199 mg/dL [facility] Comment:Diabetes: >=200 mg/d L plus symptoms Blood Urea Nitrogen 6(L) 8 - 18 mg/dL [facility] Creatinine 0.53(L) 0.70 - 1.20 mg/dL [facility] Sodium 138 135 - 145 mmol/L [facility] Potassium 4.1 3.5 - 5.0 mmol/L [facility] Comment: Please note: ??Patients with WBC >100,000 may have falsely elevated Potassium levels. ??For accurate Potassium quantification in these patients send serum separator tube (gold top) for subsequent determinations. ??Contact the Clinical Chemistry Laboratory if there are any questions. Chloride 108(H) 98 - 107 mmol/L [facility] Carbon Dioxide 19(L) 22 - 31 mmol/L [facility] Anion Gap 11 5 - 15 mmol/L [facility] Calcium 9.0 8.5 - 10.5 mg/dL [facility] Est Glomerular Filtration Rate 121 >=60 mL/min/1. 73 m?? [facility] Comment: This patient? s estimated glomerular filtration rate (eGFR) is between 121 mL/min/1.73 m2 (patients with less muscle mass) and 141 mL/min/1.73 m2 (patients with more muscle mass) as determined by the CKD-EPI equation. Assessment of eGFR is not appropriate when creatinine concentrations are rapidly changing. For clinical decisions where creatinine clearance will affect therapy, a 24-hour urine creatinine clearance may be advised. Assignment of CKD stage 1 - 5 for patients with an eGFR near the transition point between stages may be based on clinical assessment of muscle mass and symptoms in addition to eGFR. Blood 01/10/2021 5:50 AM EST 01/10/2021 6:02 AM EST Narrative Resulting Agency Comment Spec In Lab Chase Mackenzie MD CHEMISTRY ORDERABLES [facility] [place] [address] * MRI Brain wwo Contrast (Generic) (01/09/2021 2:30 PM EST) Anatomical Region Laterality Modality Head Magnetic Resonan ce Impressions 01/09/2021 3:25 PM EST Preoperative and intraoperative imaging for surgical guidance. Expected findings. Thank you for letting us participate in the care of this patient. ??If you are a health care provider and have any questions regarding this report, please contact the number below. ??For patients who have questions please contact the health rn progressive care unit that requested your imaging first. ? Electronically signed by: Nathanael Hurtado MD, [facility] ([phone]), at 01/09/2021 3:25 PM Narrative 01/09/2021 3:25 PM EST EXAMINATION: MRI BRAIN WWO CONTRAST (GENERIC) CLINICAL HISTORY: Surgical Planning TECHNIQUE: MRI of the brain was performed before and after the intravenous administration of 25cc Dotarem. COMPARISON: MRI brain 11/16/2020 FINDINGS: Slight interval enlargement of the predominantly T1 bright, popcorn appearance lesion with blooming on the SWI sequence, consistent with a cavernous malformation, along the anterior superior aspect of the left insular cortex. This measures up to 9 mm, previously 6 mm on the MRI from 11/16/2020. An adjacent developmental venous anomaly is present. A probe has been intraoperatively placed into the lesion and there are expected post ablation findings. Procedure Note Nathanael Hurtado MD - 01/09/2021 EXAMINATION: MRI BRAIN WWO CONTRAST (GENERIC) CLINICAL HISTORY: Surgical Planning TECHNIQUE: MRI of the brain was performed before and after the intravenousadministration of 25cc Dotarem. COMPARISON: MRI brain 11/16/2020 FINDINGS: Slight interval enlargement of the predominantly T1 bright, popcornappearance lesion with blooming on the SWI sequence, consistent with a cavernous malformation, along the anterior superior aspect of the left insularcortex. This measures up to 9 mm, previously 6 mm on the MRI from 11/16/2020. Anadjacent developmental venous anomaly is present. A probe has been intraoperatively placed into the lesion and there areexpected post ablation findings. IMPRESSION Preoperative and intraoperative imaging for surgical guidance. Expected findings. Thank you for letting us participate in the care of this patient. If youare a health care provider and have any questions regarding this report,please contact the number below. For patients who have questions please contactthe health rn progressive care unit that requested your imaging first. Electronically signed by: Nathanael Hurtado MD, [facility]([phone]), at 01/09/2021 3:25 PM Chase Mackenzie MD [facility] MRI ORDERABLES * COVID-19 PCR (01/09/2021 7:16 AM EST) SARS-CoV-2 RNA (Rapid) Not Detected Not Detected [facility] Comment: This result should be interpreted in combination with the clinical observations, patient history and epidemiological information. For testing of asymptomatic individuals, assay performance characteristics and clinical utility have not been evaluated. Testing for SARS-CoV-2 (Severe acute respiratory syndrome coronavirus 2, formerly known as 2019 novel coronavirus or 2019-nCoV) to aid in the diagnosis of COVID-19 is performed using the Simplexa COVID-19 Direct Assay by [employer] as authorized by the FDA issued Emergency Use Authorization (EUA). This assay is intended for In-vitro Diagnostic (IVD) use with nasopharyngeal swabs collected from individuals meeting the CDC criteria for testing. The assay is performed based on the instructions for use and additional guidance provided by the FDA. Testing is performed in the Microbiology Laboratory within the Department of Pathology and Laboratory Medicine at [facility], certified under the Clinical Laboratory Improvement Amendments of 1988 (CLIA), 42 U.S.C. section 263a, to perform high complexity tests. Assay performance has been verified according to clinical laboratory regulatory requirements. Test results are provided above. A result of Not Detected indicates that the viral RNA target is not present but does not preclude SARS-CoV-2 infection. False negative results may occur if a specimen is improperly collected, transported or handled; if amplification inhibitors are present; or if inadequate numbers of viral particles are present in the specimen. A result of Detected suggests a current or recent infection and the patient is presumed to be infected. Positive and negative predictive values for this test are highly dependent on disease prevalence. A result of Invalid indicates the inability to conclusively determine the presence or absence of SARS-CoV-2 RNA in the sample which can be due to a variety of factors. Recollection is recommended in the case of an invalid result. CDC COVID-19 criteria for testing on human specimens and clinical management guidance information are available at the CDC Coronavirus Disease 2019 (COVID-19) webpage under Information for Healthcare Professionals (https://www.cdc.gov/coronavirus/2019-ncov/hcp/index.html). Additional information about this and other EUA tests can be found in provider and patient fact sheets at the following FDA website: https://www.fda.gov/medical-devices/sxphcuymlhi-grwwvnw-1682-vowuz-22-bsnuuoute- use-a vmafrithfxazv-eqllcsy-bhwbvxr/qjmqz-sfugvjvapoa-qcdv SARS-CoV-2 Source SENSITIZER Swab [facility] Nasopharyngeal Swab 01/10/20 7:16 AM EST 01/09/2021 10:18 AM EST Comment:Symptoms->Surveillan ce Narrative Resulting Agency Comment Spec In Lab Chase Mackenzie MD MICROBIOLOGY - [place] [address] documented in this encounter Visit Diagnoses Diagnosis Cavernous malformation Congenital anomaly of cerebrovascular system Epilepsy Unspecified epilepsy without mention of intractable epilepsy documented in this encounter Admitting Diagnoses Diagnosis Epilepsy Unspecified epilepsy without mention of intractable epilepsy documented in this encounter Administered Medications Inactive Administered Medications - up to 3 most recent administrations Medication Order MAR Action Action Date Dose Rate Site acetaminophen (Tylenol) (32.02 mg/mL) oral liquid 1,000 mg 1,000 mg, Oral, EVERY 6 HOURS PRN, Starting on Sat01/09/21 at 1727, Until Sat01/10/21 at 1252, Pain, mild pain (1-3), Maximum dose of acetaminophen is 4000 mg from all sources in 24 hours. When ordered for pain, acetaminophen should be given even when other ordered pain medications are indicated. , Routine acetaminophen (Tylenol) suppository 975 mg 975 mg, Rectal, EVERY 6 HOURS PRN, Starting on Sat01/09/21 at 1727, Until Sat01/10/21 at 1252, Pain, mild pain (1-3), Maximum dose of acetaminophen is 4000 mg from all sources in 24 hours. When ordered for pain, acetaminophen should be given even when other ordered pain medications are indicated. , Routine acetaminophen (Tylenol) tablet 1,000 mg 1,000 mg, Oral, EVERY 6 HOURS PRN, Starting on Sat01/09/21 at 1727, Until Sat01/10/21 at 1252, Pain, mild pain (1-3), Maximum dose of acetaminophen is 4000 mg from all sources in 24 hours. When ordered for pain, acetaminophen should be given even when other ordered pain medications are indicated. , Routine Given 01/10/2021 5:45 AM EST 1,000 mg Given 01/09/2021 6:41 PM EST 1,000 mg dexamethasone (Decadron) injection 4 mg 4 mg, Intravenous, EVERY 6 HOURS SCHEDULED, First dose on Sat01/09/21 at 1800, Until Discontinued, Give IV if unable to take PO., Routine dexamethasone (Decadron) tablet 4 mg 4 mg, Oral, EVERY 6 HOURS SCHEDULED, First dose on Sat01/09/21 at 1800, Until Discontinued, Routine Given 01/10/2021 5:46 AM EST 4 mg Given 01/10/2021 12:00 AM EST 4 mg Given 01/09/2021 5:43 PM EST 4 mg gadoterate meglumine (Dotarem) (0.5 mMol/mL) injection solution 0-100 mL 0-100 mL, Intravenous, ONCE PRN, 1 dose, Starting on Sat01/09/21 at 1458, Until Sat01/09/21 at 1000, Per Protocol, Radiology Contrast, Routine Given 01/09/2021 10:00 AM EST 25 mLs HYDROmorphone (Dilaudid) (0.2 mg/1 mL) injection syringe 0.4 mg 0.4 mg, Intravenous, EVERY 10 MIN PRN, Starting on Sat01/09/21 at 1403, Until Sat01/09/21 at 1626, Pain, For Moderate to Severe Pain (6-10 out of 10), Hold for respiratory rate less than 10 per minute. Maximum dose 3 mg over one hour including administrations in the OR. If multiple pain medications are ordered, start with HYDROmorphone or morphine and use fentaNYL for breakthrough pain, PACU Recovery, Routine Given 01/09/2021 3:53 PM EST 0.4 mg levETIRAcetam (Keppra) tablet 1,000 mg 1,000 mg, Oral, 2 TIMES DAILY, First dose on Sat01/09/21 at 2100, Until Discontinued, Routine Given 01/10/2021 8:07 AM EST 1,000 mg Given 01/09/2021 8:15 PM EST 1,000 mg lisinopriL (Zestril) tablet 40 mg 40 mg, Oral, DAILY, First dose on Sat01/09/21 at 1815, Until Discontinued, Routine Given 01/10/2021 8:07 AM EST 40 mg Given 01/09/2021 5:43 PM EST 40 mg ondansetron (pf) (Zofran) (2 mg/mL) injection 4-8 mg 4-8 mg, Intravenous, EVERY 8 HOURS PRN, Starting on Sat01/09/21 at 1437, Until Sat01/10/21 at 1252, Nausea, If multiple antiemetics are ordered, use ondansetron first, prochlorperazine second, and metaclopramide third. Start with 4mg and if ineffective in 30 minutes, give an additional 4mg ondansetron (Zofran) tablet 4-8 mg 4-8 mg, Oral, EVERY 8 HOURS PRN, Starting on Sat01/09/21 at 1437, Until Sat01/10/21 at 1252, Nausea, Vomiting, If multiple antiemetics are ordered, use ondansetron first, prochlorperazine second, and metaclopramide third. PO Preferred. If patient unable to take PO, may give IV if ordered. Start with 4mg and if ineffective in 45 minutes, give an additional 4mg, Routine pantoprazole (Protonix) injection 40 mg 40 mg, Intravenous, DAILY, First dose on Sat01/09/21 at 1500, Until Discontinued, Reconstitute with 10 mL of normal saline to a concentration of 4 mg/mL and infuse slowly over 2 minutes. , Routine pantoprazole EC (Protonix) tablet 40 mg 40 mg, Oral, DAILY, First dose on Sat01/09/21 at 1500, Until Discontinued, DO NOT CRUSH OR OPEN If unable to take PO, may give IV Given 01/10/2021 8:07 AM EST 40 mg sodium chloride 0.9 % (flush) (BD PosiFlush Normal Saline 0.9) flush 5 mL 5 mL, Intravenous, 2 TIMES DAILY, First dose on Sat01/09/21 at 2130, Until Discontinued, Recovery (Recovery-Hospital Unit), Routine Given 01/10/2021 8:08 AM EST 5 mLs Given 01/09/2021 9:30 PM EST 5 mLs topiramate (Topamax) tablet 100 mg 100 mg, Oral, 2 TIMES DAILY, First dose on Sat01/09/21 at 2100, Until Discontinued, DO NOT SPLIT, CRUSH OR OPEN, Routine Given 01/10/2021 8:07 AM EST 100 mg Given 01/09/2021 8:15 PM EST 100 mg traMADoL (Ultram) tablet 50 mg 50 mg, Oral, ONCE, 1 dose, On Sat01/09/21 at 2145, Routine Given 01/09/2021 9:17 PM EST 50 mg documented in this encounter Active and Recently Administered Medications Times are shown in EST. Scheduled Medication Order 01/08/2021 01/09/2021 01/10/2021 dexamethasone (Decadron) injection 4 mg(Linked Group 1) 4 mg, Intravenous, EVERY 6 HOURS SCHEDULED, First dose on Sat01/09/21 at 1800, Until Discontinued, Give IV if unable to take PO., Routine 174 (See Alternative - Provider: Digna Prabhakar RN) 0000 (See Alternative - Provider: Paul Knight RN)0546 (See Alternative - Provider: Paul Knight RN) dexamethasone (Decadron) tablet 4 mg(Linked Group 1) 4 mg, Oral, EVERY 6 HOURS SCHEDULED, First dose on Sat01/09/21 at 1800, Until Discontinued, Routine 174 (Given - Provider: Digna Prabhakar RN) 0000 (Given - Provider: Paul Knight RN)0546 (Given - Provider: Paul Knight RN) levETIRAcetam (Keppra) tablet 1,000 mg 1,000 mg, Oral, 2 TIMES DAILY, First dose on Sat01/09/21 at 2100, Until Discontinued, Routine 2014 (Given - Provider: Paul Knight RN) 0807 (Given - Provider: Digna Prabhakar RN) lisinopriL (Zestril) tablet 40 mg 40 mg, Oral, DAILY, First dose on Sat01/09/21 at 1815, Until Discontinued, Routine 174 (Given - Provider: Digna Prabhakar RN) 0807 (Given - Provider: Digna Prabhakar RN) pantoprazole (Protonix) injection 40 mg(Linked Group 2) 40 mg, Intravenous, DAILY, First dose on Sat01/09/21 at 1500, Until Discontinued, Reconstitute with 10 mL of normal saline to a concentration of 4 mg/mL and infuse slowly over 2 minutes. , Routine 1500 (See Alternative - Provider: Digna Prabhakar RN) 0807 (See Alternative - Provider: Digna Prabhakar RN) pantoprazole EC (Protonix) tablet 40 mg(Linked Group 2) 40 mg, Oral, DAILY, First dose on Sat01/09/21 at 1500, Until Discontinued, DO NOT CRUSH OR OPEN If unable to take PO, may give IV 1500 (Hold - Provider: Digna Prabhakar RN - Reason: Patient not available) 0807 (Given - Provider: Digna Prabhakar RN) sodium chloride 0.9 % (flush) (BD PosiFlush Normal Saline 0.9) flush 5 mL 5 mL, Intravenous, 2 TIMES DAILY, First dose on Sat01/09/21 at 2130, Until Discontinued, Recovery (Recovery-Hospital Unit), Routine 2129 (Given - Provider: Paul Knight RN) 0808 (Given - Provider: Digna Prabhakar RN) topiramate (Topamax) tablet 100 mg 100 mg, Oral, 2 TIMES DAILY, First dose on Sat01/09/21 at 2100, Until Discontinued, DO NOT SPLIT, CRUSH OR OPEN, Routine 2014 (Given - Provider: Paul Knight RN) 0807 (Given - Provider: Digna Prabhakar RN) traMADoL (Ultram) tablet 50 mg (COMPLETED) 50 mg, Oral, ONCE, 1 dose, On Sat01/09/21 at 2145, Routine 2116 (Given - Provider: Paul Knight RN) Continuous Medication Order 01/08/2021 01/09/2021 01/10/2021 sodium chloride 0.9% infusion (CANCELED) 1,000 mL, at 100 mL/hr, Intravenous, CONTINUOUS, Starting on Sat01/09/21 at 0630, Until Sat01/09/21 at 1626, Day of Surgery (Day of Procedure) 1033 (New Bag - Provider: Rashawn Stovall CRNA)1453 (Anesthesia Volume Adjustment - Provider: Rudolph Miguel CRNA) PRN Medication Order 01/08/2021 01/09/2021 01/10/2021 acetaminophen (Tylenol) (32.02 mg/mL) oral liquid 1,000 mg(Linked Group 3) 1,000 mg, Oral, EVERY 6 HOURS PRN, Starting on Sat01/09/21 at 1727, Until Sat01/10/21 at 1252, Pain, mild pain (1-3), Maximum dose of acetaminophen is 4000 mg from all sources in 24 hours. When ordered for pain, acetaminophen should be given even when other ordered pain medications are indicated. , Routine 1841 (See Alternative - Provider: Digna Prabhakar RN) 0545 (See Alternative - Provider: Paul Knight, RN) acetaminophen (Tylenol) suppository 975 mg(Linked Group 3) 975 mg, Rectal, EVERY 6 HOURS PRN, Starting on Sat01/09/21 at 1727, Until Sat01/10/21 at 1252, Pain, mild pain (1-3), Maximum dose of acetaminophen is 4000 mg from all sources in 24 hours. When ordered for pain, acetaminophen should be given even when other ordered pain medications are indicated. , Routine 184 (See Alternative - Provider: Digna Prabhakar RN) 0545 (See Alternative - Provider: Paul Knight, RN) acetaminophen (Tylenol) tablet 1,000 mg(Linked Group 3) 1,000 mg, Oral, EVERY 6 HOURS PRN, Starting on Sat01/09/21 at 1727, Until Sat01/10/21 at 1252, Pain, mild pain (1-3), Maximum dose of acetaminophen is 4000 mg from all sources in 24 hours. When ordered for pain, acetaminophen should be given even when other ordered pain medications are indicated. , Routine 184 (Given - Provider: Digna Prabhakar RN) 0545 (Given - Provider: Paul Knight, RADHA) gadoterate meglumine (Dotarem) (0.5 mMol/mL) injection solution 0-100 mL (COMPLETED) 0-100 mL, Intravenous, ONCE PRN, 1 dose, Starting on Sat01/09/21 at 1458, Until Sat01/09/21 at 1000, Per Protocol, Radiology Contrast, Routine 1000 (Given - Provider: Ashlyn Rivera) hydrALAZINE (Apresoline) (20 mg/mL) injection 10 mg 10 mg, Intravenous, EVERY 1 HOUR PRN, Starting on Sat01/09/21 at 1437, Until Sat01/10/21 at 1252, High Blood Pressure, Target systolic blood pressure (SBP) less than 160 mmHg. Administer 10 mg IV . May repeat once in 15 minutes if SBP greater than target BP (caution if HR greater than 90). Use if labetalol ineffective after 1 hour., Routine HYDROmorphone (Dilaudid) (0.2 mg/1 mL) injection syringe 0.4 mg (CANCELED)(Linked Group 4) 0.4 mg, Intravenous, EVERY 10 MIN PRN, Starting on Sat01/09/21 at 1403, Until Sat01/09/21 at 1626, Pain, For Moderate to Severe Pain (6-10 out of 10), Hold for respiratory rate less than 10 per minute. Maximum dose 3 mg over one hour including administrations in the OR. If multiple pain medications are ordered, start with HYDROmorphone or morphine and use fentaNYL for breakthrough pain, PACU Recovery, Routine 1553 (Given - Provider: Mattie Mendez RN) labetaloL (Normodyne) (5 mg/mL) injection solution 10-20 mg 10-20 mg, Intravenous, EVERY 1 HOUR PRN, Starting on Sat01/09/21 at 1437, Until Sat01/10/21 at 1252, High Blood Pressure, Target systolic blood pressure (SBP) less than 160 mmHg. Administer 10 mg over 2 minutes. May repeat every 15 minutes if SBP remains above goal. If inadequate effect with second 10 mg dose then increase dose to 20 mg for subsequent dosing every 15 minutes. Dose not to exceed 300 mg per day. Hold if pulse is less than 50 beats per minute., Routine lidocaine (Xylocaine) 1% (10 mg/mL) injection 3 mg 3 mg (0.3 mL), Subcutaneous, ONCE PRN, 1 dose, Starting on Sat01/09/21 at 2035, Until Sat01/10/21 at 1252, for discomfort with PIV insertion, Recovery (Recovery-Hospital Unit), Routine ondansetron (pf) (Zofran) (2 mg/mL) injection 4-8 mg(Linked Group 5) 4-8 mg, Intravenous, EVERY 8 HOURS PRN, Starting on Sat01/09/21 at 1437, Until Sat01/10/21 at 1252, Nausea, If multiple antiemetics are ordered, use ondansetron first, prochlorperazine second, and metaclopramide third. Start with 4mg and if ineffective in 30 minutes, give an additional 4mg ondansetron (Zofran) tablet 4-8 mg(Linked Group 5) 4-8 mg, Oral, EVERY 8 HOURS PRN, Starting on Sat01/09/21 at 1437, Until Sat01/10/21 at 1252, Nausea, Vomiting, If multiple antiemetics are ordered, use ondansetron first, prochlorperazine second, and metaclopramide third. PO Preferred. If patient unable to take PO, may give IV if ordered. Start with 4mg and if ineffective in 45 minutes, give an additional 4mg, Routine sodium chloride 0.9 % (flush) (BD PosiFlush Normal Saline 0.9) flush 5-20 mL 5-20 mL, Intravenous, EVERY 1 MIN PRN, Starting on Sat01/09/21 at 2035, Until Sat01/10/21 at 1252, flush, Flush pertains to all indwelling lines. Flush per protocol found in the job aid using the link provided on this medication record., Recovery (Recovery-Hospital Unit), Routine Linked Groups Order Group 1: dexamethasone (Decadron) injection 4 mgJump to med 4 mg, Intravenous, EVERY 6 HOURS SCHEDULED, First dose on Sat01/09/21 at 1800, Until Discontinued, Give IV if unable to take PO., Routine Or dexamethasone (Decadron) tablet 4 mgJump to med 4 mg, Oral, EVERY 6 HOURS SCHEDULED, First dose on Sat01/09/21 at 1800, Until Discontinued, Routine Group 2: pantoprazole EC (Protonix) tablet 40 mgJump to med 40 mg, Oral, DAILY, First dose on Sat01/09/21 at 1500, Until Discontinued, DO NOT CRUSH OR OPEN If unable to take PO, may give IV Or pantoprazole (Protonix) injection 40 mgJump to med 40 mg, Intravenous, DAILY, First dose on Sat01/09/21 at 1500, Until Discontinued, Reconstitute with 10 mL of normal saline to a concentration of 4 mg/mL and infuse slowly over 2 minutes. , Routine Group 3: acetaminophen (Tylenol) (32.02 mg/mL) oral liquid 1,000 mgJump to med 1,000 mg, Oral, EVERY 6 HOURS PRN, Starting on Sat01/09/21 at 1727, Until Sat01/10/21 at 1252, Pain, mild pain (1-3), Maximum dose of acetaminophen is 4000 mg from all sources in 24 hours. When ordered for pain, acetaminophen should be given even when other ordered pain medications are indicated. , Routine Or acetaminophen (Tylenol) tablet 1,000 mgJump to med 1,000 mg, Oral, EVERY 6 HOURS PRN, Starting on Sat01/09/21 at 1727, Until Sat01/10/21 at 1252, Pain, mild pain (1-3), Maximum dose of acetaminophen is 4000 mg from all sources in 24 hours. When ordered for pain, acetaminophen should be given even when other ordered pain medications are indicated. , Routine Or acetaminophen (Tylenol) suppository 975 mgJump to med 975 mg, Rectal, EVERY 6 HOURS PRN, Starting on Sat01/09/21 at 1727, Until Sat01/10/21 at 1252, Pain, mild pain (1-3), Maximum dose of acetaminophen is 4000 mg from all sources in 24 hours. When ordered for pain, acetaminophen should be given even when other ordered pain medications are indicated. , Routine Group 4: HYDROmorphone (Dilaudid) (0.2 mg/1 mL) injection syringe 0.2 mg (CANCELED) 0.2 mg, Intravenous, EVERY 10 MIN PRN, Starting on Sat01/09/21 at 1403, Until Sat01/09/21 at 1626, Pain, For Mild to Moderate Pain (1-5 out of 10), Hold for respiratory rate less than 10 per minute. Maximum dose 3 mg over one hour including administrations in the OR. If multiple pain medications are ordered, start with HYDROmorphone or morphine and use fentaNYL for breakthrough pain, PACU Recovery, Routine Or HYDROmorphone (Dilaudid) (0.2 mg/1 mL) injection syringe 0.4 mg (CANCELED)Jump to med 0.4 mg, Intravenous, EVERY 10 MIN PRN, Starting on Sat01/09/21 at 1403, Until Sat01/09/21 at 1626, Pain, For Moderate to Severe Pain (6-10 out of 10), Hold for respiratory rate less than 10 per minute. Maximum dose 3 mg over one hour including administrations in the OR. If multiple pain medications are ordered, start with HYDROmorphone or morphine and use fentaNYL for breakthrough pain, PACU Recovery, Routine Group 5: ondansetron (Zofran) tablet 4-8 mgJump to med 4-8 mg, Oral, EVERY 8 HOURS PRN, Starting on Sat01/09/21 at 1437, Until Sat01/10/21 at 1252, Nausea, Vomiting, If multiple antiemetics are ordered, use ondansetron first, prochlorperazine second, and metaclopramide third. PO Preferred. If patient unable to take PO, may give IV if ordered. Start with 4mg and if ineffective in 45 minutes, give an additional 4mg, Routine Or ondansetron (pf) (Zofran) (2 mg/mL) injection 4-8 mgJump to med 4-8 mg, Intravenous, EVERY 8 HOURS PRN, Starting on Sat01/09/21 at 1437, Until Sat01/10/21 at 1252, Nausea, If multiple antiemetics are ordered, use ondansetron first, prochlorperazine second, and metaclopramide third. Start with 4mg and if ineffective in 30 minutes, give an additional 4mg documented in this encounter Care Teams Neon Light Installer Relationship Specialty Start Date End Date Radha Villagran, MARKETING TECHNOLOGY SPECIALIST [address] [place] [address] PCP - General Family Medicine 01/22/20 06/21/21 documented as of this encounter
--- OUTSIDE RECORDS SUMMARY | 2024-01-13 18:54 | XMS_ITS | Encounter Summary ---
Author Organization [facility] [place] [address] Care Team Providers Care Digital Advertising Analyst Name Role Phone FerozMedardo Coates Primary Care Provider [phone] Encounter Details Date Type Department Care Team (Late st Contact Info) Description 08/15/2022 Tele[place] [address] Elsie Angulo RN Social History Tobacco Use Types Packs/Day Years [...] encounter Miscellaneous Notes * Telephone Encounter - Elsie Angulo RN - 08/15/2022 12:24 PM EDT Copied from [facility] #[id number]. Topic: Specialty Dept CRMs - Triage >> Aug 15, 2022 12:11 PM Cornelius Velez wrote: Triage Message Specialist: Dr Quiles Relationship (if other than patient-full name): Patient Symptom: Seizures Has patient experienced symptom before patient started having seizures after her surgery If patient has experienced symptom before, when was the last time this occurred last seizure was last Is patient currently having symptom no When did symptom begin Last Additional Comments: Please contact patient to discuss further. documented in this encounter Plan of Treatment [...] on filedocumented in this encounter Care Teams Digital Advertising Analyst Relationship Specialty Start Date End Date Medardo Redman DO [address] [place] [address] PCP - General Family Medicine 06/22/21 documented as of this encounter
--- OUTSIDE RECORDS SUMMARY | 2024-01-13 18:54 | XMS_ITS | Encounter Summary ---
Author Organization [facility] [place] [address] Care Team Providers Care Melt Helper Name Role Phone Medardo Redman DO Primary Care Provider [phone]- [phone] Encounter Details Date Type Department Care Team (Latest Contact Info) Description 07/04/2022 Travel Social History Tobacco Use Types Packs/Day [...] on filedocumented in this encounter Care Teams Melt Helper Relationship Specialty Start Date End Date Medardo Redman DO [address] [place] [address] PCP - General Family Medicine 06/22/21 documented as of this encounter
--- OUTSIDE RECORDS SUMMARY | 2024-01-13 18:54 | XMS_ITS | Encounter Summary ---
Author Organization [facility] [place] [address] Care Team Providers Care Cloth Hand Name Role Phone FerozMedardo church Primary Care Provider [phone]- [phone] Reason for Visit * Reason Onset Date Comments Appointment 05/17/2022 Encounter Details Date Type Department Care Team (Late st Contact Info) Description 05/17/2022 [place] [address] Tiffanie Quiles MD [facility] [place] [address] Appointment Social History Tobacco Use Types Packs/Day [...] encounter Miscellaneous Notes * Telephone Encounter - Tayla Cabral - 05/17/2022 12:25 PM EDT Patient was scheduled per below: PSC Scheduling Instructions Provider: Tiffanie Quiles MD Visit Type: OV Appt Note: 1 yr OV, s/p LEFT stereotactic ablation for cavernoma, MRI Brain prior Imaging appt needed?: MRI PSC to ask patient Screening Questions? N/A PSC to coordinate same day appt with Radiology? N/A Additional Info Needed: * Patient already scheduled their MRI for 06/22/22. Schedule OV for next available after this date with Dr. Quiles (Avril is no longer here) Copied from [facility] #[id number]. Topic: Specialty Dept CRMs - Appointment Needed >> May 08, 2022 12:25 PM Dorita Don wrote: Appt Needed Specialist Chase Mackenzie MD Relationship (if other than patient-full name): Kimberli Bales Appt. Type Needed: FUV Reason for Visit: FUV from MRI which is scheduled 06/22/22 - patient questioning if Chase Mackenzie MD is truly gone. Please call back to discuss. documented in this encounter Plan of Treatment [...] on filedocumented in this encounter Care Teams Cloth Hand Relationship Specialty Start Date End Date Medardo Redman DO [address] [place] [address] PCP - General Family Medicine 06/22/21 documented as of this encounter
--- OUTSIDE RECORDS SUMMARY | 2024-01-13 18:54 | XMS_ITS | Encounter Summary ---
[facility] [place] [address] Care Team Providers Care Film Spooler Name Role Phone Radha Villagran JOSUE Primary Care Provider [phone] Encounter Details Date Type Department Care Team (Late st Contact Info) Description 01/13/2021 [place] [address] Patricia Islas RN Social History Tobacco Use Types Packs/Day [...] encounter Miscellaneous Notes * Telephone Encounter - Patricia Islas RN - 01/13/2021 12:46 PM EST Kimberli Bales 1985 35 y.o. [id number] F/U call s/p LEFT stereotactic ablation for cavernoma on 01/09/[address] Mackenzie Date of discharge: 01/10/21 Date of call: 01/13/21 I left a vm message for Kimberli letting her know I was doing a post-discharge call and if she hasany questions or concerns to call our office. documented in this encounter Plan of Treatment [...] on filedocumented in this encounter Care Teams Film Spooler Relationship Specialty Start Date End Date Radha Villagran, JOSUE [address] [place] [address] PCP - General Family Medicine 01/22/20 06/21/21 documented as of this encounter
--- OUTSIDE RECORDS SUMMARY | 2024-01-13 18:54 | XMS_ITS | Encounter Summary ---
Author Organization [facility] [place] [address] Care Team Providers Care Grapple Crew Leader Name Role Phone Feroz Medardo Chatterjee Primary Care Provider [phone]- [phone] Reason for Referral * Consultation (Routine) - Closed Specialty Diagnoses / Procedures Referred By Contjaqueline t Referred To Contact Diagnoses Cavernous malformation Tiffanie Quiles MD [facility] [place] [address] Shane Jordan MD [address] [place] [id number] Referral ID Status Reason Start Date Expiration Date V isits Requested Visits Authorized [id number] Closed Consult, Test & Treat 07/06/2022 01/02/2023 1 1 Encounter Details Date Type Department Care Team ([facility] st Contact Info) Description 07/06/2022 Orders [place] [address] Rj Matamoros, RN Cavernous malformation Social History Tobacco Use [...] r Schedule Referral to Neurology Outpatient Referral Routine Cavernous malformation Ordered: 07/06/2022 documented as of this encounter Goals Goal [...] system documented in this encounter Care Teams Grapple Crew Leader Relationship Specialty Start Date End Date Medardo Redman DO [address] [place] [address] PCP - General Family Medicine 06/22/21 documented as of this encounter
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
--- OUTSIDE RECORDS SUMMARY | 2024-01-13 18:54 | XMS_ITS | Encounter Summary ---
Author Organization [facility] [place] [address] Care Team Providers Care Pit Laborer Name Role Phone Feroz Medardo Chatterjee Primary Care Provider [phone]- [phone] Reason for Visit * Diagnostic Test (Routine) - Closed Specialty Diagnoses / Procedures Referred By Contac t Referred To Contact Radiology Diagnoses Cavernous malformation Procedures MRI Brain wwo Contrast (Generic) Robert Rossi PA [facility] [place] [address] [facility] [place] [address] Referral ID Status Reason Start Date Expiration Date V isits Requested Visits Authorized [id number] Closed Specialty Service Requested 06/15/2021 12/12/2021 1 1 Encounter Details Date Type Department Care Team (Latest Contact Info) Description 06/22/2021 7:48 AM EDT - 06/22/2021 11:59 PM EDT Hospital [place] [address] Chase Mackenzie MD [facility] [place] [address] Discharge Disposition: Home Social History [...] with spacer fluticasone propionate (Flonase) 50 mcg/actuation [place], Suspension 2 sprays by Each Nare route [...] Note: To 2 servings per day (crystal Kitara Mediae or propel) tracking food intake Lifestyle No [...] Intravenous, ONCE PRN, 1 dose, Starting on Tayler 06/22/21 at 0937, Until Tayler 06/22/21 at 0937, Per Protocol, Radiology Contrast, Routine Given 06/22/2021 9:37 AM EDT 25 mLs documented in this encounter Care Teams Pit Laborer Relationship Specialty Start Date End Date Medardo Redman DO [address] [place] [address] PCP - General Family Medicine 06/22/21 documented as of this encounter
--- OUTSIDE RECORDS SUMMARY | 2024-01-13 18:54 | XMS_ITS | Encounter Summary ---
Author Organization [facility] [place] [address] Care Team Providers Care Sales Team Member Name Role Phone VillagranRadha diaz Palma SALAS Primary Care Provider [phone] Encounter Details Date Type Department Care Team (Late st Contact Info) Description 02/24/2021 Tele[place] [address] Chase Mackenzie MD [facility] [place] [address] Social History Tobacco Use Types Packs/Day Years [...] * Telephone Encounter - Eun Lowe - 05/16/2021 3:57 PM EDT Called MRI rescheduled to MRI order with and without contrast * Telephone Encounter - Eun Lowe - 05/16/2021 11:09 AM EDT Called pt updated MRI ?'s Pt can arrive anytime in the morning early is okay, needs PO Meds. * Telephone Encounter - LowePamelaEun G - 02/24/2021 2:31 PM EST Patient needs f/u appointment(s): With JPA on/around 05/24/21 3 months OV, s/p LEFT stereotactic ablation for cavernoma, MRI Brain prior AmairaniKimberli Bella - 02/23/21 Chase Mackenzie MD Sent: SatFebruary 24, 2021 ??2:18 PM To: [facility] ?? Message F/u in May with MRI +/- documented in this encounter Plan of Treatment [...] filedocumented in this encounter Care Teams Sales Team Member Relationship Specialty Start Date End Date Radha Villagran APRN [address] [place] [address] PCP - General Family Medicine 01/22/20 06/21/21 documented as of this encounter
--- OUTSIDE RECORDS SUMMARY | 2024-01-13 18:54 | XMS_ITS | Encounter Summary ---
Author Organization [facility] [place] [address] Care Team Providers Care Poultry Offal Icer Name Role Phone FerozMedardo church Primary Care Provider [phone]- [phone] Reason for Visit * Reason Onset Date Comments Other 09/20/2022 VEEG Encounter Details Date Type Department Care Team (Late st Contact Info) Description 09/20/2022 [place] [phone] Eddie Rios MD [facility] [place] [address] Other (VEEG) Social History Tobacco Use Types Packs/Day Years Used Date Smoking Tobacco: Former Cigarettes 0.3 2 0 10/18/2015 - 10/17/2017 Smokeless Tobacco: Never Alcohol Use Standard Drinks/Week Comments Not Currently 0 (1 standard drink = 0.6 oz pur e alcohol) [facility] Inpatient Questions Answer Date Recorded Does Anyone [...] encounter Miscellaneous Notes * Telephone Encounter - Lissette Mcgovern - 09/21/2022 3:28 PM EDT Patient calling back. Please call Patient to advise. * Telephone Encounter - Eusebia Salinas RN - 09/21/2022 11:39 AM EDT Message left on an identified voicemail for a return call to the Neurology Clinic for additional information concerning an upcoming admission on 09/24/22. * Telephone Encounter - Ladonna Anderson - 09/20/2022 10:58 AM EDT Spoke to patient. Patient confirmed EMU admission for Saturday09/24/22. Patient informed to call the admissions office on the day of admission at 10am to confirm bed availability and to arrive to 3C clinic for 2pm. Sap Senior Developer provided admissions office phone number to patient and mailed VEEG informationalpamphlet to patient's mailing address on file. Kindly call for clinical admissions details. documented in this encounter Plan of Treatment [...] on filedocumented in this encounter Care Teams Poultry Offal Icer Relationship Specialty Start Date End Date Medardo Redman DO [address] [place] [address] PCP - General Family Medicine 06/22/21 documented as of this encounter
--- OUTSIDE RECORDS SUMMARY | 2024-01-13 18:55 | XMS_ITS | Encounter Summary ---
Author Organization [place] [address] Care Team Providers Care Stockroom Keeper Name Role Phone Amada [place] MD Primary Care Provider [phone] [phone] Reason for Referral * Psychiatric (Routine) - Closed Specialty Diagnoses / Procedures Referred By Stacy harper Referred To Contact Psychiatry Diagnoses Transient alteration of awareness Anxiety Myke Reyez, [address] [address] Referral ID Status Reason Start Date Expiration Date V isits Requested Visits Authorized [id number] Closed Consult, Test & Treat 01/11/2020 07/09/2020 1 1 Encounter Details Date Type Department Care Team (Late st Contact Info) Description 01/08/2020 Telephone Primary Care at [facility] [place] [id number] Myke Reyez, [facility] Social History Tobacco Use Types Packs/Day Years [...] encounter Miscellaneous Notes * Telephone Encounter - Myke Reyez [facility] - 01/12/2020 1:45 PM EST Spoke with Myke Mcdaniels at [facility] to confirm receipt of referral. Myke to followup with Kimberli regarding scheduling. * Telephone Encounter - Myke Reyez [facility] - 01/11/2020 1:39 PM EST Reached out to Kimberli Bales to follow up regarding referral from Radha Villagran APRN to help get connected to a psychiatry provider for an evaluation. Advised that it can be difficult to find psychiatry providers and that there is generally a wait. Recommended that we refer her to [facility] as a starting point. Advised that [facility] is the community mental health agency in [place] and that they might have psychiatry services, though usually it is only accessible if the person engages in outpatientcounseling. Kimberli would like to start with referral to [facility]. Provided Kimberli with the contact information for Myke Mcdaniels who manages referrals at [facility]. Encouraged her to reach out later this week. Asked her to please let me know if she can't get connected for whatever reason. Kimberli agrees. * Telephone Encounter - Myke Reyez [facility] - 01/08/2020 2:06 PM EST Referral from Radha Villagran APRN for help with establishing care with a psychiatry provider. Kimberli is currently in the ED at [facility]. Possible psychiatry providers include: [facility]: [phone] [facility] [email or web address] * Telephone Encounter - Myke Reyez [facility] - 01/08/2020 2:06 PM EST ----- Message from Radha Villagran APRN sent at 01/06/2020 2:13 PM EST ----- She agrees to psychiatry eval, but declines [facility] d/t traumatic hospitalization there. She needs help with psychiatry eval near [facility]. Thank you! documented in this encounter Plan of Treatment Scheduled Referrals Name Type Priority Associated Diagnoses Order Schedule Referral to Psychiatry Outpatient Referral Routine Transient alteration of awareness Anxiety Ordered: 01/11/2020 documented as of this encounter Goals Goal [...] as of this encounter Visit Diagnoses Diagnosis Transient alteration of awareness Anxiety Anxiety state, unspecified Idiopathic intracranial hypertension Benign intracranial hypertension documented in this encounter Care Teams Stockroom Keeper Relationship Specialty Start Date End Date Amada [place] MD [address] [place] [address] PCP - General Family Medicine 08/28/18 01/21/20 documented as of this encounter
--- OUTSIDE RECORDS SUMMARY | 2024-01-13 18:55 | XMS_ITS | Encounter Summary ---
Author Organization [facility] [place] [address] Care Team Providers Care Hvac Residential Service Technician Name Role Phone VillagranRadha diaz JOSUE Primary Care Provider Reason for Visit * Reason Onset Date Comments TeleHealth 08/24/2020 Encounter Details Date Type Department Care Team (Late st Contact Info) Description 08/24/2020 [place] [address] Chase Mackenzie MD [facility] [place] [address] TeleHealth Social History Tobacco Use Types Packs/Day Years [...] Telephone Encounter - Eusebia Salinas RN - 08/24/2020 12:22 PM EDT Spoke to this patient??by phone to review their medications and allergies prior to their upcoming tele-appointment with the Neurosurgery provider. ??Medications and allergies reviewed, verified and updated as needed. documented in this encounter Plan of Treatment [...] on filedocumented in this encounter Care Teams Hvac Residential Service Technician Relationship Specialty Start Date End Date Radha Villagran, FAMILY PRESERVATION CASEWORKER [address] [place] [address] PCP - General Family Medicine 01/22/20 06/21/21 documented as of this encounter
--- OUTSIDE RECORDS SUMMARY | 2024-01-13 18:55 | XMS_ITS | Encounter Summary ---
Author Organization [facility] [place] [address] Care Team Providers Care Graphic Art Technician Name Role Phone Radha Villagran SURVEYING OR SPATIAL SCIENCE TECHNICIAN Primary Care Provider Reason for Visit * Reason Comments Medication Refill Encounter Details Date Type Department Care Team (Late st Contact Info) Description 03/23/2020 Refill Primary Care at [facility] [address] [place] [phone] Radha Villagran APRN [address] [place] [address] Complicated migraine Social History Tobacco Use Types Packs/Day Years [...] encounter Miscellaneous Notes * Telephone Encounter - Yasmany Melendez RN - 03/23/2020 11:10 AM EST Last Related Office Visit: 01/21/2020 Upcoming Appointment: Visit date not found - Per PCP return in about 4 weeks (around 02/18/2020) for in person migraines Requested Prescriptions Pending Prescriptions Disp Refills ??? topiramate (Topamax) 25 mg Tablet [Pharmacy Med Name: Topiramate 25 MG Oral Tablet] 60 tablet 0 Sig: Take 1 tablet by mouth twice daily Last Prescription Fill Date: 01/21/2020 Number Dispensed and Refills: #60, 3 refills Lab Results Component Value Date HGB 11.2 (L) 01/08/2020 HCT 34.6 (L) 01/08/2020 ALT 45 (H) 10/30/2019 AST 16 10/30/2019 NA 139 01/08/2020 K 3.9 01/08/2020 CL 100 01/08/2020 CREATININE 0.65 (L) 01/08/2020 TSH 2.95 10/29/2019 INR 1.1 10/28/2019 HA1C 5.6 10/29/2019 documented in this encounter Plan of Treatment [...] as of this encounter Visit Diagnoses Diagnosis Complicated migraine Migraine with aura, without mention of intractable migraine without mention of status migrainosus documented in this encounter Care Teams Graphic Art Technician Relationship Specialty Start Date End Date Radha Villagran APRN [address] [place] [address] PCP - General Family Medicine 01/22/20 06/21/21 documented as of this encounter
--- OUTSIDE RECORDS SUMMARY | 2024-01-13 18:55 | XMS_ITS | Encounter Summary ---
Author Organization [facility] [place] [address] Care Team Providers Care Vice President Financial Name Role Phone Radha Villagran [employer] Primary Care Provider [phone] Reason for Visit * Reason Comments Hypertension Encounter Details Date Type Department Care Team (Late st Contact Info) Description 01/21/2020 4:00 PM EST Office Visit Primary Care at [facility] [address] [facility] [place] [phone] Radha Villagran APRN [address] [place] [address] Recurrent syncope; Complicated migraine; Essential hypertension; Obstructive sleep apnea Social History Tobacco Use Types Packs/Day Years [...] Sign Reading Time Taken Comments Blood Pressure 130/90 01/21/2020 4:04 PM EST Pulse 85 01/21/2020 4:04 PM EST Temperature - - Respiratory Rate 14 01/21/2020 4:04 PM EST Oxygen Saturation 96% 01/21/2020 4:04 PM EST Inhaled Oxygen Concentration - - Weight 136.1 kg (300 lb) 01/21/2020 4:04 PM EST Height 167.6 cm (5' 6) 01/21/2020 4:04 PM EST Body Mass Index 48.42 01/21/2020 4:04 PM EST documented in this encounter Progress Notes * Radha Villagran APRN - 01/21/2020 4:00 PM EST Subjective: HPI: Kimberli Bales is a 34 y.o. female presenting to the [facility] HPI Patient presents today for elevated blood pressure numbers at home. She states she is switchingproviders to Radha Villagran APRN. Patient also states that she is really tired. Patient states that there are no more than normal stressors in her life, no increased caffeine or sodium. Patient states her headaches have been getting worse not sure if it's because of the headaches , or the headaches are making my blood pressure go up. She stopped taking Risperidone after our last visit (01/04) Home blood pressure readings have been 161/95-159/100. Checking BP every few days MCGARRY present more often than not Right frontal pain, becoming more frequent and more severe Almost occurring every day Suffering from MCGARRY x6-7 years Not taking OTC agents, Indocin TID was more helpful in the past HTN Lisinopril x1 year ELMA-treated with OTC nasal appliance-has not tolerated CPAP-tried x3 months and was unable to wear it >2 hours Feeling rested in the morning, occasionally waking up with MCGARRY Fatigue increased this past week Syncope x2 on , x2 on Saturday Normally feels a worse MCGARRY then lightheadedness immediately prior to collapsing, may lose consciousness x2-3 minutes per 's assessment occurred in the AM and then again around 4pm Saturday, both times occurred in the morning, then went to ER around 1400 Had a neurology telehealth appt in ER-they did not want to make medication adjustments since they were coordinating care from the [facility]. Neurology recommended trial of Topamax, which she has not tried in the past ROS: Review of Systems Objective: VS: BP 130/90 Pulse 85 Resp 14 Ht 167.6 cm (5' 6) Wt 136.1 kg (300 lb) LMP 01/18/2014 Comment: tubal ligation SpO2 96% BMI 48.42 kg/m?? Physical Exam Vitals signs reviewed. Constitutional: General: She is awake. Appearance: Normal appearance. She is well-developed and well-groomed. She is morbidly obese. HENT: Head: Normocephalic and atraumatic. Cardiovascular: Rate and Rhythm: Normal rate and regular rhythm. Pulses: Normal pulses. Radial pulses are 2+ on the right side and 2+ on the left side. Heart sounds: Normal heart sounds, S1 normal and S2 normal. Pulmonary: Effort: Pulmonary effort is normal. Breath sounds: Normal breath sounds. Musculoskeletal: Right lower leg: No edema. Left lower leg: No edema. Skin: General: Skin is warm and dry. Capillary Refill: Capillary refill takes less than 2 seconds. Neurological: Mental Status: She is alert and oriented to person, place, and time. Psychiatric: Attention and Perception: Attention normal. Mood and Affect: Mood and affect normal. Behavior: Behavior normal. Behavior is cooperative. Thought Content: Thought content normal. Judgment: Judgment normal. Assessment and Plan: Kimberli was seen today for hypertension. Diagnoses and all orders for this visit: Recurrent syncope - Holter Monitor 48hr; Future Complicated migraine - topiramate (Topamax) 25 mg Tablet; Take 1 tablet by mouth 2 times daily. Essential hypertension - lisinopriL (Prinivil;Zestril) 40 mg Tablet; Take 1 tablet by mouth daily. Obstructive sleep apnea Recurrent syncopal episodes leading to several ER visits this year. She has had EKGs done in the ERwhich have been normal. Negative orthostatic VS. She had a telehealth eval with Neurology in ER-recommended tele obs overnight and Topiramate. She has never had holter monitoring and I think this is a reasonable aspect of the work up. Will order holter monitor and start Topiramate for management ofcomplex migraines. She has an appt with Neurology in February. HTN-increase Lisinopril to 40mg daily There are no Patient Instructions on file for this visit. FOLLOWUP: Return in about 4 weeks (around 02/18/2020) for In Person seferino, MCGARRY. documented in this encounter Plan of Treatment [...] as of this encounter Visit Diagnoses Diagnosis Recurrent syncope Complicated migraine Migraine with aura, without mention of intractable migraine without mention of status migrainosus Essential hypertension Unspecified essential hypertension Obstructive sleep apnea Obstructive sleep apnea (adult) (pediatric) documented in this encounter Care Teams Vice President Financial Relationship Specialty Start Date End Date Radha Villagran, ESTATE [employer]ING [employer]GAL [address] [place] [address] PCP - General Family Medicine 01/22/20 06/21/21 documented as of this encounter
--- OUTSIDE RECORDS SUMMARY | 2024-01-13 18:55 | XMS_ITS | Encounter Summary ---
Author Organization Formerly [facility] Address [facility] [place] [address] Care Team Providers Care Software Specialist Name Role Phone VillagranRadha diaz Palma SALAS Primary Care Provider Reason for Visit * Consultation (Routine) - Closed Specialty Diagnoses / Procedures Referred By Contac t Referred To Contact Neurosurgery Diagnoses F/u left frontal cavernoma Procedures F/u left frontal cavernoma Medardo Velez MD [address] [place] [address] [place] [address] Chase Mackenzie MD [facility] [place] [address] Referral ID Status Reason Start Date Expiration Date Visits Re quested Visits Authorized [id number] Closed 07/04/2020 07/04/2021 1 1 Encounter Details Date Type Department Care Team (Late st Contact Info) Description 08/04/2020 1:20 PM EDT Office Visit Neurosurgery at [place] [phone] Chase Mackenzie MD [facility] [place] [address] Cavernous malformation Social History Tobacco Use Types [...] Sign Reading Time Taken Comments Blood Pressure 115/71 08/04/2020 1:00 PM EDT Pulse 82 08/04/2020 1:00 PM EDT Temperature 36.8 ??C (98.3 ??F) 08/04/2020 1:00 PM ED T Respiratory Rate - - Oxygen Saturation - - Inhaled Oxygen Concentration - - Weight 127.5 kg (281 lb) 08/04/2020 1:00 PM EDT reported Height 167.6 cm (5' 6) 08/04/2020 1:00 PM EDT r eported Body Mass Index 45.35 08/04/2020 1:00 PM EDT documented in this encounter Progress Notes * Chase Mackenzie MD - 08/04/2020 1:20 PM EDT [facility] Neurosurgery Patient Name: Kimberli Bales : 1985 REF: Medardo Velez Date of Service: 08/04/[address] Medardo Velez: I had the pleasure of seeing Kimberli Bales in neurosurgery clinic today. As you know, she is a34 y.o. woman referred for evaluation of a left frontal likely cavernoma. She states she has been followed by neurology for migraines and headaches as well as a question of migrainous seizures/pseudoseizures. Her headaches can last 2 to 3 weeks and she now gets headaches 18 days out of the month each time lasting several days. During this episode she has slurred speech but she does not lose awareness or consciousness. She presented to an outside hospital in June after 1 of these episodes and head CT was obtained which demonstrated a left frontal cavernoma. This is present in prior imaging and it appears that have increased in size over time, to its current size of approximately 1 cm. Of note, she has undergone EEG evaluations which have not identified any seizures. PAST MEDICAL HISTORY Patient Active Problem List Diagnosis Code ??? Exotropia H50.10 ??? Neurological deficit present R29.818 ??? Anxiety F41.9 ??? 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 Menorrhagia N92.0 ??? Idiopathic intracranial hypertension G93.2 ??? Hypertension I10 ??? Obstructive sleep apnea G47.33 ??? Class 3 severe obesity due to excess calories with serious comorbidity and body mass index (BMI) of 50.0 to 59.9 in adult E66.01, Z68.43 ??? Complicated migraine G43.109 ??? Altered mental status R41.82 ??? Glaucoma H40.9 ??? Chronic nasal congestion R09.81 ??? Mood changes R45.86 ??? Recurrent syncope R55 Past Medical History: Diagnosis Date ??? Abnormal cervical Papanicolaou smear 09/09/2018 ??? Allergy ??? Anxiety ??? Diverticulosis of colon 09/09/2018 ??? Dysplasia of cervix 07/17/2006 ??? Dysuria 07/17/2006 episodes of dysuria and frequency but all negative cultures. If sx develop check Micro, TELEVISION REPAIR TEACHER or stone. ??? Environmental and seasonal allergies ??? Glaucoma 12/21/2019 ??? Hypertension 06/30/2019 ??? Post-op bleeding 02/08/2012 Following ??? Pyelonephritis 09/09/2018 ??? Strabismus ??? UTI (urinary tract infection) Past Surgical History: Procedure Laterality Date ??? SECTION N/A 03/25/2010 ??? SECTION N/A 04/24/2011 APD; Sherrell Schmidt MD ??? DILATION AND CURETTAGE OF UTERUS N/A 09/16/2015 Menorrhagia; APD; Sherrell Schmidt MD ??? HERNIA REPAIR ??? PRO STABISMUS SURG,ONE HORIZ MUSCLE Bilateral 12/31/2013 STRABISMUS SURGERY, ONE HORIZONTAL MUSCLE, JEFF performed by Genevieve Walsh MD at [facility] ??? PRO STABISMUS SURG,TWO HORIZ MUSCLE Right 02/01/2014 STRABISMUS SURGERY, TWO HORIZONTAL MUSCLES performed by Genevieve Walsh MD at [facility] ??? PRO STRABISMUS SURG,PLACE ADJUST SUTURE Right 12/31/2013 STRABISMUS SURGERY, PLACEMENT OF ADJUSTABLE SUTURES IN CONJUNCTION W/ ANOTHER SURGERY performed by Genevieve Walsh MD at [facility] ??? PRO STRABISMUS SURG,SCAR EXTRAOCUL MUSC Right 02/01/2014 STRABISMUS SURGERY WITH SCARRING OF EXTRAOCULAR MUSCLES IN CONJUNCTION W/ ANOTHER SURGERY performedby Genevieve Walsh MD at [facility] ??? SINUS SURGERY ??? STRABISMUS SURGERY ??? TUBAL LIGATION Bilateral 04/24/2011 APD; Sherrell Schmidt MD ??? WISDOM TOOTH EXTRACTION N/A 07/01/2002 [facility]; AILEEN RIVERA, LAUREN ALLERGIES Allergies Allergen Reactions ??? Oxycodone-Acetaminophen Shortness Of Breath ??? Red Dye Other (See Comments) Stops heart MEDICATIONS Current Outpatient Medications: ??? diphenhydrAMINE (Benadryl) 25 mg Capsule, Take by mouth., Disp: , Rfl: ??? LORazepam (Ativan) 1 mg Tablet, Take by mouth., Disp: , Rfl: ??? pyridoxine, vitamin B6, (B-6) 100 mg Tablet, Take 100 mg by mouth daily., Disp: , Rfl: ??? loratadine (Claritin) 10 mg Tablet, Take 10 mg by mouth daily., Disp: , Rfl: ??? topiramate (Topamax) 25 mg Tablet, Take 1 tablet by mouth twice daily, Disp: 60 tablet, Rfl: 0 ??? lisinopriL (Prinivil;Zestril) 40 mg Tablet, Take 1 tablet by mouth daily., Disp: 90 tablet, Rfl: 3 ??? citalopram (CeleXA) 40 mg Tablet, TAKE 1 TABLET BY MOUTH ONCE DAILY, Disp: , Rfl: ??? b complex vitamins Tablet, Take 1 tablet by mouth daily., Disp: , Rfl: ??? acetaminophen (Tylenol) 500 mg Tablet, Take 1,000 mg by mouth every 6 hours as needed for Pain., Disp: , Rfl: SOCIAL HISTORY Social History Socioeconomic History ??? Marital status: Spouse name: Farhan Bales ??? Number of children: 2 ??? Years of education: 12 ??? Highest education level: Not on file Occupational History ??? 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 Smoking status: Former Smoker Packs/day: 0.25 Years: 2.00 Pack years: 0.50 Types: Cigarettes Quit date: 10/17/2017 Years since quittin.8 ??? Smokeless tobacco: Never Used Vaping Use ??? Vaping Use: Never used Substance and Sexual Activity ??? Alcohol use: Yes Comment: Occasionally ??? Drug use: No ??? Sexual activity: Yes Partners: Male control/protection: Surgical Comment: tubal ligation Other Topics Concern ??? Abuse or Threat: Help requested by patient Not Asked ??? Abuse or Threat: Physical, Sexual, Verbal Not Asked ??? Back Care Not Asked ??? Bike Helmet Not Asked ??? Blood Transfusions Not Asked ??? Caffeine Concern Not Asked ??? Exercise Not Asked ??? Exercise: Patient reported Not Asked ??? Hobby Hazards Not Asked ??? Service No ??? Occupational Exposure Not Asked ??? Poor oral hygiene Not Asked ??? Seat Belt Yes ??? Second-hand smoke exposure Not Asked ??? Self-Exams Not Asked ??? Sleep Concern Not Asked ??? Special Diet Not Asked ??? Stress Concern Not Asked ??? Violence Concern Not Asked ??? Weight Concern Not Asked ??? Do You live alone? No ??? Tobacco in Home Not Asked Social History Narrative ??? Not on file Social Determinants of Health Financial Resource Strain: ??? Difficulty of Paying Living Expenses: Food Insecurity: ??? Worried About Running Out of Food in the Last Year: ??? Ran Out of Food in the Last Year: Transportation Needs: ??? Lack of Transportation (Medical): ??? Lack of Transportation (Non-Medical): Physical Activity: ??? Days of Exercise per Week: ??? Minutes of Exercise per Session: FAMILY HISTORY Family History Problem Relation Age of Onset ??? Hypertension Father ??? Retinal Detachment Father ??? Type 2 Diabetes Father ??? Cataracts Maternal Grandmother ??? Glaucoma Maternal Grandmother ??? Cerebrovascular Accident Maternal Grandmother ??? Type 2 Diabetes Maternal Grandmother ??? Cataracts Maternal Grandfather ??? Type 2 Diabetes Maternal Grandfather ??? Colon Polyps Maternal Grandfather ??? Cerebrovascular Accident Paternal Grandmother ??? Type 2 Diabetes Paternal Grandfather ??? Myocardial Infarction Paternal Grandfather ??? Thrombophilia Paternal Uncle ??? Type 2 Diabetes Paternal Uncle ??? Arrhythmia Paternal Uncle of an arrhythmia at age 22. Also had a mitral valve disorder. ??? Asthma Paternal Aunt ??? Breast Cancer Paternal Aunt 40 ??? Obesity Brother ??? Macular Degeneration Neg Hx ??? Strabismus Neg Hx ??? Thyroid Disease Neg Hx ??? Heart Disease Neg Hx ??? Amblyopia Neg Hx ??? Cancer Neg Hx PHYSICAL EXAM BP 115/71 Pulse 82 Temp 36.8 ??C (98.3 ??F) Ht 167.6 cm (5' 6) Comment: reported Wt 127.5 kg (281 lb) Comment: reported LMP 01/18/2014 Comment: tubal ligation BMI 45.35 kg/m?? Constitutional: Well developed, well nourished, in NAD. Neuro: Mental Status/Cognitive: Awake, alert, answers questions appropriately. Cranial Nerves: CN II - Vision grossly intact, PERRLA CN III, IV, - EOMI CN V - V1-3 dermatomes intact to light touch CN VII - No facial asymmetry CN VIII - Hearing intact to limited bedside exam CN IX, X - Uvula midline CN XI - Shoulder shrug 5/5 bilaterally CN XII - Tongue midline Motor: Normal muscle bulk and tone. No pronator drift. Strength 5/5 throughout all muscle groups inall four extremities. Sensory: Sensation grossly intact to light touch in all four extremities. Gait: Normal gait. IMAGING Several CT and MRI scans dating back several years were all reviewed that the most recent MRI from June [address] from July 2020. These demonstrate an approximately 1 cm left final cavernoma that appears stable compared to scan in June but has increased compared to prior imaging, suggesting interval hemorrhage of the cavernoma. ASSESSMENT & PLAN I discussed at length with Ms. Bales that her imaging is consistent with a left frontal cavernous malformation. Her history is concerning for seizure-like events but work-up for this has failed to identify seizures and it is not clear to me that she is actually having true clinical seizures. However, the lesion has bled in the past and appears to have blood in the last few months. We discussed that reasons for intervention for cavernoma include seizure activity and refractory epilepsy as well as repeated hemorrhage. Given the deep location we could consider open resection but alternative would be laser ablation. Given that the indication for this would be the cavernoma and mitigating risk of bleeding rather than treating seizures we would ablate just the cavernoma itself and not plan on ablating surrounding brain. After discussion of the expected benefits and risks she is inclined towards treatment but I will review her imaging with one of my vascular neurosurgery colleagues and we will get back to her with our consensus opinion. Thank you for involving me in the care of your patient. Please do not hesitate to contact me with any questions. With warm regards, Chase Mackenzie MD Division of Neurosurgery, Section of Surgery [address] [address] Attestation: I spent a total of 50 minutes during this clinical encounter of which 40 minutes were devoted to counseling and coordinating care including review of records, pertinent lab data and studies, as well as discussing diagnostic evaluation and workup, planned therapeutic interventions and future disposition of care. Where indicated, the assessment and plan reflect discussion of patient with consultants, other healthcare providers, family members, and additional research needed to obtain further information in formulating the plan of care of this patient. documented in this encounter Plan of Treatment [...] system documented in this encounter Care Teams Software Specialist Relationship Specialty Start Date End Date Radha Villagran APRN [address] [place] [address] PCP - General Family Medicine 01/22/20 06/21/21 documented as of this encounter
--- OUTSIDE RECORDS SUMMARY | 2024-01-13 18:55 | XMS_ITS | Encounter Summary ---
Author Organization [facility] [place] [address] Care Team Providers Care Product Transfer Pumper Name Role Phone Amada Carson MD Primary Care Provider [phone] Reason for Visit * Reason Onset Date Comments Medication Refill 11/09/2019 Encounter Details Date Type Department Care Team (Late st Contact Info) Description 11/09/2019 Ref[place] [address] Phani Maravilla MD [facility] [place] [address] Social History Tobacco Use Types Packs/Day Years [...] encounter Miscellaneous Notes * Telephone Encounter - Bria Gomez RN - 11/09/2019 3:[address] Coleman: Okay, continue with risperidone. * Telephone Encounter - Bria Gomez RN - 11/09/2019 2:01 PM EDT Spoke to patient. Reports that she never started the Thorazine. Patient requesting to continue withthe Risperdal. Reports that this works for her. Report forwarded to Dr. Coleman for recommendation. * Telephone Encounter - Va Sarmiento - 11/09/2019 11:01 AM EDT Matias, , is calling today to let our office know the patient is completely out of this medication today. Please clemons if possible. [phone] documented in this encounter Plan of Treatment [...] on filedocumented in this encounter Care Teams Product Transfer Pumper Relationship Specialty Start Date End Date Amada Carson MD [address] [place] [address] PCP - General Family Medicine 08/28/18 01/21/20 documented as of this encounter
--- OUTSIDE RECORDS SUMMARY | 2024-01-13 18:55 | XMS_ITS | Encounter Summary ---
[place] [address] Care Team Providers Care Motor Vehicle Lecturer Name Role Phone VillagranRadha diaz Palma SALAS Primary Care Provider Reason for Visit * Reason Comments Headache Encounter Details Date Type Department Care Team (Late st Contact Info) Description 07/31/2020 3:57 PM EDT - 07/31/2020 3:58 PM EDT Emergency [place] [phone] Discharge Disposition: Against Medical Advice Social History Tobacco Use Types Packs/Day Years [...] Sign Reading Time Taken Comments Blood Pressure 120/70 07/31/2020 3:10 PM EDT Pulse 68 07/31/2020 3:10 PM EDT Temperature 36.5 ??C (97.7 ??F) 07/31/2020 3:10 PM ED T Respiratory Rate 16 07/31/2020 3:10 PM EDT Oxygen Saturation 100% 07/31/2020 3:10 PM EDT Inhaled Oxygen Concentration - - Weight - - Height - - Body Mass Index - - documented in this encounter Medications at Time of Discharge Medication Sig Dispensed Refills Start Date End Date LORazepam (Ativan) 1 mg Tablet Take by mouth as needed. 06/29/2020 lisinopriL (Prinivil;Zestril) 40 mg TabletIndications:Essen tial hypertension Take 1 tablet by mouth daily. 90 tablet 3 01/21/2020 citalopram (CeleXA) 40 mg Tablet TAKE 1 TABLET BY MOUTH ONCE DAILY 12/02/2019 b complex vitamins Tablet Take 1 tablet by mouth daily. acetaminophen (Tylenol) 500 mg Tablet Take 1,000 mg by mouth every 6 hours as needed for Pain. cefpodoxime (Vantin) 200 mg Tablet Take by mouth. 06/29/2020 08/04/2020 diphenhydrAMINE (Benadryl) 25 mg Capsule Take by mouth nightly as needed. 06/29/2020 09/19/2022 divalproex EC (Depakote) 500 mg Tablet, Delayed Release (E.C.) Take by mouth. 07/04/2020 08/04/2020 ketorolac (Toradol) 10 mg Tablet Take by mouth. 07/04/2020 08/04/2020 promethazine (Phenergan) 25 mg Tablet Take by mouth. 07/04/2020 08/04/2020 topiramate (Topamax) 25 mg TabletIndications:Compl icated migraine Take 1 tablet by mouth twice daily 60 tablet 03/23/2020 11/22/2020 indomethacin (Indocin) 25 mg Capsule 1 tablet three times per day with meals with 50mg capsules 90 capsule 3 12/03/2019 08/04/2020 indomethacin (INDOCIN) 50 mg Capsule Take 1 capsule by mouth 3 times daily (with meals). 90 capsule 3 11/03/2019 08/04/2020 pantoprazole EC (Protonix) 40 mg Tablet, Delayed Release (E.C.) Take 1 tablet by mouth daily. 30 tablet 3 11/03/2019 08/04/2020 documented as of this encounter ED Notes * Jagdeep Garcia RN - 07/31/2020 3:53 PM EDT Pt A&Ox3, gcs 15, steady gait. Pt feels better since arrival to ED. Pt decided with spouse to leave after triage due to wait. Pt leaving prior to completion of services and AMA. Pt did not want to wait and talk to a provider. I just don't think I'm up for all the poking and prodding today. documented in this encounter Plan of Treatment [...] on filedocumented in this encounter Care Teams Motor Vehicle Lecturer Relationship Specialty Start Date End Date Radha Villagran APRN [address] [place] [address] PCP - General Family Medicine 01/22/20 06/21/21 documented as of this encounter
--- OUTSIDE RECORDS SUMMARY | 2024-01-13 18:55 | XMS_ITS | Encounter Summary ---
Author Organization Formerly [facility] [place] [address] Care Team Providers Care Cooler Operator Name Role Phone Amada Carson MD Primary Care Provider [phone] Reason for Visit * Reason Onset Date Comments TeleHealth 11/02/2019 Encounter Details Date Type Department Care Team (Late st Contact Info) Description 11/02/2019 Telephone Neurology at [address] [phone] Ashwini Campuzano, SPACE BU[employer]ER [facility] [place] [address] TeleHealth Social History Tobacco Use Types Packs/Day [...] encounter Miscellaneous Notes * Telephone Encounter - Ariela Leach CMA - 11/02/2019 11:22 AM EDT Spoke with patient to review medications and allergies prior to upcoming tele- appointment scheduled with Neurology provider. documented in this encounter Plan of Treatment [...] on filedocumented in this encounter Care Teams Cooler Operator Relationship Specialty Start Date End Date Amada Carson MD [address] [place] [address] PCP - General Family Medicine 08/28/18 01/21/20 documented as of this encounter
--- OUTSIDE RECORDS SUMMARY | 2024-01-13 18:55 | XMS_ITS | Encounter Summary ---
Author Organization [facility] [place] [address] Care Team Providers Care Director Of Rooms Name Role Phone Radha Villagran JOSUE Primary Care Provider Reason for Referral * Diagnostic Test (Routine) - Closed Specialty Diagnoses / Procedures Referred By Contac t Referred To Contact Radiology Diagnoses Cerebral cavernoma Procedures CT Head wo Contrast (Generic) Juan Manuel Sherman MD [facility] [place] [address] [facility] [place] [address] Referral ID Status Reason Start Date Expiration Date V isits Requested Visits Authorized [id number] Closed Specialty Service Requested 07/28/2020 01/24/2021 1 1 Reason for Visit * Diagnostic Test (Routine) - Closed Specialty Diagnoses / Procedures Referred By Contac t Referred To Contact Radiology Diagnoses Cerebral cavernoma Procedures CT Head wo Contrast (Generic) Juan Manuel Sherman MD [facility] [place] [address] [facility] [place] [address] Referral ID Status Reason Start Date Expiration Date V isits Requested Visits Authorized [id number] Closed Specialty Service Requested 07/28/2020 01/24/2021 1 1 Encounter Details Date Type Department Care Team (Latest Contact Info) Description 08/04/2020 10:18 AM EDT - 08/04/2020 11:59 PM EDT Hospital Encounter CT Scan at [facility] [place] [address] Chase Mackenzie MD [facility] [place] [address] Cerebral cavernoma Discharge Disposition: Home Social History Tobacco Use [...] every 6 hours as needed for Pain. diphenhydrAMINE (Benadryl) 25 mg Capsule Take by mouth nightly as needed. 06/29/2020 09/19/2022 pyridoxine, vitamin B6, (B-6) 100 mg Tablet Take 100 mg by mouth daily. 09/19/2022 loratadine (Claritin) 10 mg Tablet Take 10 mg by mouth daily. 09/19/2022 topiramate (Topamax) 25 mg TabletIndications:Compli cated migraine Take 1 tablet by mouth twice daily 60 tablet 03/23/2020 11/22/2020 documented as of this encounter Plan of [...] Procedure Name Priority Date/Time Associated Diagnosis Comments CT HEAD WO CONTRAST (GENERIC) Routine 08/04/2020 10:33 AM EDT Cerebral cavernoma documented in this encounter Results * CT Head wo Contrast (Generic) (08/04/2020 10:33 AM EDT) Anatomical Region Laterality Modality Head Computed Tomogra phy 08/04/2020 10:4 1 AM EDT Impressions 08/04/2020 10:51 AM EDT Stable left frontal cavernoma. Thank you for letting us participate in the care of this patient. ??If you are a health care provider and have any questions regarding this report, please contact the number below. ??For patients who have questions please contact the health palliative care nurse that requested your imaging first. ? Narrative 08/04/2020 10:51 AM EDT EXAMINATION: CT HEAD WO CONTRAST (GENERIC) CLINICAL HISTORY: Cerebral vascular malformation (AVM or AVF) TECHNIQUE: CT Head was performed without contrast COMPARISON: Several previous CT heads the most recent is dated 07/03/2020. Brain MRI 06/29/2020. FINDINGS: The known hyperdense 1.1 cm cavernoma in the left frontal centrum semiovale is unchanged in appearance. No new abnormalities. Ventricles are stable in size. Complete opacification of the right frontal sinus. Thickening within the bilateral maxillary sinus antrum. Mastoid air cells are clear. Procedure Note Robert Pro MD - 08/04/2020 EXAMINATION: CT HEAD WO CONTRAST (GENERIC) CLINICAL HISTORY: Cerebral vascular malformation (AVM or AVF) TECHNIQUE: CT Head was performed without contrast COMPARISON: Several previous CT heads the most recent is dated 07/03/2020.Brain MRI 06/29/2020. FINDINGS: The known hyperdense 1.1 cm cavernoma in the left frontalcentrum semiovale is unchanged in appearance. No new abnormalities. Ventriclesare stable in size. Complete opacification of the right frontal sinus.Thickening within the bilateral maxillary sinus antrum. Mastoid air cells areclear. IMPRESSION Stable left frontal cavernoma. Thank you for letting us participate in the care of this patient. If youare a health care provider and have any questions regarding this report,please contact the number below. For patients who have questions please contactthe health palliative care nurse that requested your imaging first. Chase Mackenzie MD IMG CT ORDERABLES documented in this encounter Visit Diagnoses Diagnosis Cerebral cavernoma Congenital anomaly of cerebrovascular system documented in this encounter Care Teams Director Of Rooms Relationship Specialty Start Date End Date Radha Villagran APRN [address] [place] [address] PCP - General Family Medicine 01/22/20 06/21/21 documented as of this encounter
--- OUTSIDE RECORDS SUMMARY | 2024-01-13 18:55 | XMS_ITS | Encounter Summary ---
Author Organization [facility] [place] [address] Care Team Providers Care Set Builder Name Role Phone Radha Villagran JOSUE Primary Care Provider [phone] Encounter Details Date Type Department Care Team (Late st Contact Info) Description 11/16/2020 10:45 PM EDT Ancillary Procedure Radiology Library at [facility], [place] [id number] Chase Mackenzie MD [facility] [place] [address] Social History Tobacco Use Types Packs/Day Years [...] Procedure Name Priority Date/Time Associated Diagnosis Comments FILM LIBRARY STORAGE ONLY DX CHEST Routine 11/16/2020 10:44 PM EDT documented in this encounter Results * Film Library- Storage Only DX Chest (11/16/2020 10:44 PM EDT) Narrative [facility] [place] - 11/16/2020 10:44 PM EDT This exam is auto-finalizing. It's purpose is for storage only. Chase Mackenzie MD IMG FILM LIBRARY ORD ERABLES [place], [place] documented in this encounter Visit Diagnoses Not on filedocumented in this encounter Care Teams Set Builder Relationship Specialty Start Date End Date Radha Villagran, DOCUMENTUM CONSULTANT [address] [place] [address] PCP - General Family Medicine 01/22/20 06/21/21 documented as of this encounter
--- OUTSIDE RECORDS SUMMARY | 2024-01-13 18:55 | XMS_ITS | Encounter Summary ---
Author Organization [facility] [place] [address] Care Team Providers Care State Auditor Name Role Phone VillagranRadha diaz Palma SALAS Primary Care Provider Encounter Details Date Type Department Care Team (Late st Contact Info) Description 06/29/2020 Ancillary Procedure Radiology Library at [facility] [place] [address] Chase Mackenzie MD [facility] [place] [address] Social History Tobacco Use Types Packs/Day Years [...] Associated Diagnosis Comments FILM LIBRARY STORAGE ONLY CT HEAD Routine 06/29/2020 12:00 AM EDT documented in this encounter Results * Film Library- Storage Only CT Head (06/29/2020 12:00 AM EDT) Narrative [facility] - 07/03/2020 7:19 PM EDT This exam is auto-finalizing. It's purpose is for storage only. Chase Mackenzie MD IMG FILM LIBRARY ORD ERABLES [place], [place] documented in this encounter Visit Diagnoses Not on filedocumented in this encounter Care Teams State Auditor Relationship Specialty Start Date End Date Radha Villagran, LASER BEAM COLOR SCANNER OPERATOR [address] [place] [address] PCP - General Family Medicine 01/22/20 06/21/21 documented as of this encounter
--- OUTSIDE RECORDS SUMMARY | 2024-01-13 18:55 | XMS_ITS | Encounter Summary ---
Author Organization [facility] [place] [address] Care Team Providers Care Dianetic Counselor Name Role Phone Amada Carson MD Primary Care Provider [phone] Reason for Visit * Reason Onset Date Comments Medication Refill 12/03/2019 Encounter Details Date Type Department Care Team (Late st Contact Info) Description 12/03/2019 Refill Neurology at [facility] [address] [place] [address] Ashwini Campuzano, SMT MACHINE OPERATOR [facility] [place] [address] Social History Tobacco Use Types Packs/Day Years [...] on filedocumented in this encounter Care Teams Dianetic Counselor Relationship Specialty Start Date End Date Amada Carson MD [address] [place] [address] PCP - General Family Medicine 08/28/18 01/21/20 documented as of this encounter
--- OUTSIDE RECORDS SUMMARY | 2024-01-13 18:55 | XMS_ITS | Encounter Summary ---
Author Organization [facility] Address [facility] [place] [address] Care Team Providers Care Campaign Marketing Specialist Name Role Phone Radha Villagran Palma SALAS Primary Care Provider [phone] Reason for Visit * Reason Comments Diplopia * Consultation (Urgent) - Closed Specialty Diagnoses / Procedures Referred By Contac t Referred To Contact Ophthalmology Diagnoses shane ophth eval tarsha Alice Alvarez, OD [address] [place] [address] Cali Pillai MD [facility] [place] [address] Referral ID Status Reason Start Date Expiration Date V isits Requested Visits Authorized [id number] Closed Consult, Test & Treat 01/18/2020 01/17/2021 1 1 Encounter Details Date Type Department Care Team (Late st Contact Info) Description 02/01/2020 8:30 AM EST Office Visit Ophthalmology at [place] [phone] Cali Pillai MD [facility] [place] [address] Marisa Milian, [place] Unspecified visual disturbance; Visual field defects Social History Tobacco Use Types Packs/Day Years [...] as of this encounter Progress Notes * Cali Cain MD - 02/01/2020 8:30 AM EST Kimberli Bales is a 34 y.o. female referred by Alice Alvarez, OD for visual disturbances (blackouts in her vision) and diplopia. Patient reports that over the past month, she had 3 times where her vision went black for a short period of time and then came back. She has noticed more intermittent tunnel vision in her right eye for the past few months. Her headaches have started to get worse since October 2019. She is s/p BLRc 12/31/13; then RLR re-recession and dissection of scar tissue due to robust suture reaction for a net 9.0mm recession total OD; 8.0mm recession OS; and RMRx 5.0mm 02/01/14 On examination today, Kimberli Bales exhibited 20/20 vision in the right eye and 20/15 vision in the left eye with Rx placed into Trial Frames from Dr Alvarez's office, full color vision, with no evidence of a relative afferent pupillary defect that would suggest an underlying optic nerve dysfunction. The intraocular pressures were normal in each eye. Static visual ling were full with scattered depressed points in the right eye, and full in the left eye. Sensorimotor examination revealed full extraocular movements in each eye. Kimberli Bales had an intermittent exotropia of 12 PD, comparable to a post- operative measurement after strabismus surgery. Dilated eye examination revealed normal anterior segment structures. The optic nerves are healthy and pink. The maculae and peripheral retina was normal in each eye. The OCT revealed normal RNFL of both optic nerves. 1) Diplopia - History of exotropia - Filled prescription glasses from Dr. Alvarez in December 2019, which she currently only uses for distance. She notes visual distortion while wearing her new glasses, a tunnel effect, and feels herperipheral vision is lost with shadowing on the outer side. However she notes clearer and sharper vision with the new glasses. - Patient did not bring the new glasses to visit today. However, when the Rx was placed in trial frames, the prescription improved control of her exotropia at both distance and near, and she achievedfull stereopsis. We encourage use of her new glasses time study technician. - Normal neuro-ophthalmic examination today with full visual ling and normal optic nerves. Reassurance given. RTC PRN I, Anay Guerin, have performed the documentation for this encounter in the presence of and acting as a scribe for Cali Cain MD. I performed the services which were documented by the scribe, and I agree with the accuracy of the documentation in this encounter. Cali Cain MD documented in this encounter Plan of [...] Procedure Name Priority Date/Time Associated Diagnosis Comments SENSORIMOTOR EXAM Routine 02/01/2020 12: 06 PM EST Unspecified visual disturbance FUNDUS PHOTOS - OU- BOTH EYES Routine 02/01/2020 12:02 PM EST Unspecified visual disturbance AUTOMATED VISUAL FIELD - EXTENDED - OU- BOTH EYES Routine 02/01/2020 11:56 AM EST Unspecified visual disturbance OCT OPTIC NERVE - OU - BOTH EYES Routine 02/01/2020 11:56 AM EST Visual field defects documented in this encounter Results * Sensorimotor Exam [Pr Special Eye Exam] - OU - Both Eyes (02/01/2020 12:06 PM EST) Anatomical Region Laterality Modality Other Narrative 02/01/2020 12:06 PM EST Sensorimotor examination revealed full extraocular movements in each eye. Kimberli Bales had an intermittent exotropia of 12 PD, comparable to a post-operative measurement after strabismus surgery. Cali Pillai MD OPHTHALMOLOGY [facility] ORDERABLES * Fundus Photos - OU - Both Eyes (02/01/2020 12:02 PM EST) Anatomical Region Laterality Modality Other Narrative 02/01/2020 12:02 PM EST Right Eye Disc findings include normal observations. Vessel findings include normal observations. Periphery findings include normal observations. Left Eye Disc findings include normal observations. Vessel findings include normal observations. Periphery findings include normal observations. Notes Normal discs Cali Pillai MD OPHTHALMOLOGY [facility] ORDERABLES * Automated Visual Field - Extended - OU - Both Eyes (02/01/2020 11:56 AM EST) Anatomical Region Laterality Modality Other Narrative 02/01/2020 11:56 AM EST Right Eye Threshold was 24-2. Strategy was TIM. Reliability was good. Findings include normal observations, non-specific defects. Left Eye Threshold was 24-2. Strategy was TIM. Reliability was good. Findings include normal observations. Cali Pillai MD OPHTHALMOLOGY [facility] ORDERABLES * Oct Optic Nerve - OU - Both Eyes (02/01/2020 11:56 AM EST) Anatomical Region Laterality Modality Other Narrative 02/01/2020 11:56 AM EST Right Eye Quality was good. Findings include normal observations. Temporal thickness was normal. Superior thickness was normal. Nasal thickness was normal. Inferior thickness was normal. Left Eye Quality was good. Findings include normal observations. Temporal thickness was normal. Superior thickness was normal. Nasal thickness was normal. Inferior thickness was normal. Notes [place] [facility] OCT OD: ??Average RNFL: 96, classification = wnl OS: ??Average RNFL: 94, classification = wnl Implication: No thinning or swelling OU. Cali Pillai MD OPHTHALMOLOGY [facility] ORDERABLES documented in this encounter Visit Diagnoses Diagnosis Unspecified visual disturbance Visual field defects Visual field defect, unspecified documented in this encounter Care Teams Campaign Marketing Specialist Relationship Specialty Start Date End Date Radha Villagran, LIEUTENANT FIREFIGHTER [address] [place] [address] PCP - General Family Medicine 01/22/20 06/21/21 documented as of this encounter
--- OUTSIDE RECORDS SUMMARY | 2024-01-13 18:55 | XMS_ITS | Encounter Summary ---
Author Organization [facility] [place] [address] Care Team Providers Care Associate Faculty Name Role Phone Amada Carson MD Primary Care Provider [phone] Encounter Details Date Type Department Care Team (Late st Contact Info) Description 12/24/2019 Telephone Neurology at [address] [address] Ashwini Campuzano, DIRECTOR OF PRODUCT DESIGN [facility] [place] [address] Social History Tobacco Use Types Packs/Day Years [...] encounter Miscellaneous Notes * Telephone Encounter - Kavya Briseno - 12/24/2019 9:06 AM EST Patient does not wish to schedule- she is moving her care to [facility]. documented in this encounter Plan of Treatment [...] on filedocumented in this encounter Care Teams Associate Faculty Relationship Specialty Start Date End Date Amada Carson MD [address] [facility] [place] [phone] PCP - General Family Medicine 08/28/18 01/21/20 documented as of this encounter
--- OUTSIDE RECORDS SUMMARY | 2024-01-13 18:55 | XMS_ITS | Encounter Summary ---
Author Organization [facility] [place] [address] Care Team Providers Care Internet Marketing Strategist Name Role Phone Radha Villagran JOSUE Primary Care Provider Encounter Details Date Type Department Care Team (Late st Contact Info) Description 10/05/2020 8:30 PM EDT Ancillary Procedure Radiology Library at [facility] [place] [phone] Chase Mackenzie MD [facility] [address] [place] [address] Social History Tobacco Use Types Packs/Day Years [...] FILM LIBRARY STORAGE ONLY CT HEAD Routine 10/05/2020 8:29 PM EDT documented in this encounter Results * Film Library- Storage Only CT Head (10/05/2020 8:29 PM EDT) Narrative [facility] - 10/05/2020 8:29 PM EDT This exam is auto-finalizing. It's purpose is for storage only. Chase Mackenzie MD IMG FILM LIBRARY ORD ERABLES [place], [place] documented in this encounter Visit Diagnoses Not on filedocumented in this encounter Care Teams Internet Marketing Strategist Relationship Specialty Start Date End Date Radha Villagran, MUSIC JOURNALIST [address] [place] [address] PCP - General Family Medicine 01/22/20 06/21/21 documented as of this encounter
--- OUTSIDE RECORDS SUMMARY | 2024-01-13 18:55 | XMS_ITS | Encounter Summary ---
Author Organization [facility] [place] [address] Care Team Providers Care Podiatric Assistant Name Role Phone VillagranRadha diaz JOSUE Primary Care Provider Encounter Details Date Type Department Care Team (Late st Contact Info) Description 07/03/2020 7:00 PM EDT Ancillary Procedure Radiology Library at [facility] [place] [address] Chase Mackenzie MD [facility] [place] [address] Social History Tobacco Use Types Packs/Day Years [...] FILM LIBRARY STORAGE ONLY CT HEAD Routine 07/03/2020 6:56 PM EDT documented in this encounter Results * Film Library- Storage Only CT Head (07/03/2020 6:56 PM EDT) Narrative [facility] - 07/03/2020 6:56 PM EDT This exam is auto-finalizing. It's purpose is for storage only. Chase Mackenzie MD IMG FILM LIBRARY ORD ERABLES [place], [place] documented in this encounter Visit Diagnoses Not on filedocumented in this encounter Care Teams Podiatric Assistant Relationship Specialty Start Date End Date Radha Villagran, SAFE EXPERT [address] [place] [address] PCP - General Family Medicine 01/22/20 06/21/21 documented as of this encounter
--- OUTSIDE RECORDS SUMMARY | 2024-01-13 18:55 | XMS_ITS | Encounter Summary ---
[place] [address] Care Team Providers Care Fuse Spooler Name Role Phone VillagranRadha diaz Palma PAINT SPRAY TENDER Primary Care Provider [phone] Encounter Details Date Type Department Care Team (Latest Contact Info) Description 11/12/2019 10:00 AM EDT TH Visit (TeleHealth) Neurology at [address] [address] Ashwini Campuzano, PAINT SPRAY TENDER [facility] [place] [address] High risk medication use Social History Tobacco Use Types Packs/Day Years [...] as of this encounter Progress Notes * Ashwini Campuzano, JOSUE - 11/12/2019 10:00 AM EDT [facility] Headache Clinic - Follow up Appointment - TeleHealth Visit video System Kimberli Bales gave verbal consent over the video system for their TeleHealth Visit. They understand that this visit will be billed to their insurance, similar to a clinic visit. They verify that they live within the State of [place] where I hold licensure. Patient Location: [place], [place] Neurology Headache Clinic Follow-up Patient Name: Kimberli Bales Patient ID: Kimberli Bales is a 33 y.o. female seen at [facility] Headache Clinic previously by Dr. Mercado, Headache Fellow. She has a history of Chronic Migraine, Hemicrania continua, strabismus s/p bilateral lateral rectus recessions and repeat right lateral rectus recession. She carried a diagnosis of IIH butshe never had a documented elevation in CSF opening pressure of >25cm of water. Last opening pressure in fact was 4cm H20. Interval History: Indomethacin 50mg tid is working well only two bad headaches this week. Taking pantoprazole. At 75mg tid was almost headache free. Over all feeling pretty good. She denies any spells but did run out of her Risperdal over the weekend and started to feel unwell.When she restarted the medication she felt better. She is not completely back to her old self. [facility] not by choice. In review of the notes, the patient's behavior was agitated and disruptive. Please see notes for further details. Medications: Current Outpatient Medications Medication Sig Dispense Refill ??? diphenhydrAMINE (Benadryl) 25 mg Capsule Take 25 mg by mouth nightly. ??? b complex vitamins Tablet Take 1 tablet by mouth daily. ??? risperiDONE (RisperDAL) 1 mg Tablet Take 0.5 tablets in the morning, 0.5 tablets in the afternoon, and 1 tablet in the evening. 60 tablet 1 ??? indomethacin (INDOCIN) 50 mg Capsule Take 1 capsule by mouth 3 times daily (with meals). 90 capsule 3 ??? pantoprazole EC (Protonix) 40 mg Tablet, Delayed Release (E.C.) Take 1 tablet by mouth daily. 30 tablet 3 ??? acetaminophen (Tylenol) 500 mg Tablet Take 1,000 mg by mouth every 6 hours as needed for Pain. ??? lisinopriL (Prinivil;Zestril) 20 mg Tablet Take 1 tablet by mouth daily. 90 tablet 3 No current facility-administered medications for this visit. Medications tried: Anti-Depressants: SSRI: [x] Citalopram (Celexa) [] Escitalopram (Lexapro) [] Fluvoxamine (Luvox) [] Fluoxetine (Prozac) [] Paroxetine (Paxil) [] Sertraline (Zoloft) SNRI: [] Desvenlafaxine (Pristiq/Khedezla) [] Duloxetine (Cymbalta) [] Levomilnacipran (Fetzima) [] Milnacipran (Savella) [] Venlafaxine (Effexor) TCA: [x] Amitriptyline (Elavil) [] Amoxapine [] Clomipramine (Anafranil) [] Desipramine (Norpramin) [] Doxepin (Sinequan) [] Imipramine (Tofranil) [] Maprotiline (Ludiomil) [] Nortriptiline (Pamelor) [] Protriptyline (Vivactil) [] Trimipramine (Surmontil) MAOI: [] Phenelzine (Nardil) [] Selegiline (Emsam) [] Tranylcypromine (Parnate) Atypicals: [] Bupropion (Wellbutrin) [] Mirtazapine (Remeron) [] Nefazodone (Serzone) [] Trazodone [] Vilazodone (Viibryd) [] Vortioxetine (Trintellix) Anti-Hypertensives: JUDY Inhibitors: [] Benazepril (Lotensin) [] Captopril [] Enalapril (Vasotec) [] Fosinopril [x] Lisinopril (Prinivil) [] Moexipril [] Perindopril (Aceon) [] Quinapril (Accupril) [] Ramipril (Altace) [] Trandolapril (Mavik) Alpha-1 Blockers [] Doxazosin [] Prazosin [] Tetrazosin Angiotensin II Receptor Blockers: [] Azilsartan (Edarbi) [] Candesartan (Atacand) [] Eprosartan [] Irbesartan (Avapro) [] Losartan (Cozaar) [] Olmesartan (Benicar) [] Telmisartan (Misardis) [] Valsartan (Diovan) Beta Blockers [] Acebutolol (Sectral) [] Atenolol (Tenormin) [] Bisoprolol (Zebeta) [] Metoprolol (Lopressor) [] Nadolol (Cogard) [] Nebivolol (Bystolic) [] Propranolol (Inderal) [] Timolol Calcium Channel Blockers: [] Amlodipine (Norvasc) [] Bepridil (Vascor) [] Diltiazem (Cardiazem) [] Felodipine (Plendil) [] Nicardipine (Cardene) [] Nifedipine (Procardia) [] Nisoldipine (Sular) [x] Verapamil Diuretics: [] Furosemide (Lasix) [] Hydrochlorothiazide (Microzide) [] Spironolactone (Aldactone) Carbonic Anhydrase Inhibitors: [x] Acetazolamide (Diamox) [] Methazolamide Anti-seizure: [] Carbamazepine (Tegretol) [] Gabapentin (Neurontin) [] Lamotrigine (Lamictal) [] Levetiracetam (Keppra) [] Oxcarbazepine (Trileptal) [] Phenobarbital [] Phenytoin (Dilantin) [] Pregabalin (Lyrica) [] Primidone [] Sodium Valproate (Depakote) [x] Topiramate (Topamax) [] Zonisamide (Zonegran) Monoclonal Antibodies: [] Aimovig [] Ajovy [x] Emgality Toxins: [] OnabotulinumtoxinA (Botox) Supplements: [] Butterbur [x] Coenzyme Q10 [] Feverfew [] Magnesium [x] Melatonin [] Migrelief (B2, mag, feverfew) [x] Vitamin B2 (riboflavin) Other: [] Doxycycline [] Lidocaine patch (Lidoderm) [] [place] [] Memantine (Namenda) [] Montelukast (Singulair) [] Oxygen Triptans oral: [] Almotriptan (Axert) [] Eletriptan (Relpax) [] Frovatriptan (Frova) [] Naratriptan (Amerge) [] Rizatriptan (Maxalt) [] Sumatriptan (Imitrex) [] Sumatriptan/Naproxen (Treximet) [] Zolmitriptan (Zomig) Triptans nasal: [] Sumatriptan (Onzetra) nasal powder [] Sumatriptan (Imitrex) nasal spray [] Zomig nasal spray Triptans injectable: [] Sumatriptan (Imitrex) solution 3 mg, 4 mg, 6 mg Ergotamines oral: [] Ergotamine/caffeine tab (Cafergot) [] Methergine [] Methylsergide (Sansert) Ergotamines nasal: [] Dihydroergotamine nasal spray (Migranal) Ergotamine Injectable: [] Dihydroergotamine solution for injection (DHE-45) Ergotamine suppository: [] Ergotamine/caffeine suppository (Migergot) NSAIDS: [x] Aspirin [] Celecoxib (Celebrex) [] Diclofenac potassium [] Flurbiprofen [x] Ibuprofen (Advil) [x] Indomethacin [] Ketoprofen [x] Ketorolac (Toradol) [] Meloxicam (Mobic) [] Nabumetone [x] Naproxen sodium (Aleve) Anti-Histamines: [] Cyproheptadine (Periactin) [x] Diphenhydramine (Benadryl) [] Hydroxyzine (Vistaril/Atarax) Anti-emetics: [] Aprepitant (Emend) [] Chlorpromazine (Thorazine) [] Granisetron [] Metoclopramide (Reglan) [] Meclizine (Bonine) [] Ondansetron (Zofran) [] Prochlorperazine (compazine) [] Promethazine (Phenergan) Muscle relaxers: [] Baclofen (lioresal) [] Cyclobenzaprine (flexeril) [] Metaxalone (skelaxin) [] Methocarbamol (robaxin) [] Tizanidine (zanaflex) Steroids: [] Dexamethasone (Decadron) [] Methylprednisolone (Medrol) [x] Prednisone [] Triamcinolone (Kenalog) Procedures: [] Auriculotemporal blocks [] Lumbar puncture [] Occipital nerve blocks [] Sphenopalatine ganglion blocks [] Supraorbital blocks [] Trigger point injections Neuromodulation: [] Cefaly [] nVNS/Gammacore [] Spring TMS Non-pharmacologic Tx [] Acupuncture [] Acupressure [] Biofeedback [] Thumb Sewer [] Cognitive Behavioral Therapy [] Craniosacral therapy [] Massage therapy [] Physical therapy Benzodiazepines: [x] Alprazolam (Xanax) [] Chlordiazepoxide (Librium) [] Clonazepam (Klonopin) [] Diazepam (Valium) [] Lorazepam (Ativan) [] Temazepam (Restoril) Combination/Other Analgesics: [] Acetaminophen (Tylenol) [x] Acetaminophen/aspirin/caffeine (Excedrin/Pamprin) [] Acetaminophen/caffeine/pyrilamine maleate (Midol) [] Acetaminophen/dichloralphenazone/ isometheptene (Midrin) [] Butalbital/aspirin/caffeine/codeine (Fiorinal with codeine) [] Butalbital/Aspirin/Caffeine (Fiorinal) [] Butalbital/acetaminophen/caffeine (Fioricet) Opioids/Narcotics/Controlled Substances: [] Acetaminophen/Codeine (Tylenol #3) [] Acetaminophen/Hydrocodone ([place]/Vicodin) [] Acetaminophen/Oxycodone (Percocet) [] Butorphanol (Ketamine/Stadol) [] Carisoprodol (Soma) [] Fentanyl [] Hydrocodone [] Hydromorphone (Dilaudid) [x] Marijuana [] Morphine (MS Contin) [x] Oxycodone [x] Tramadol (Ultram) [] Zolpidem (Ambien) Physical Exam: General exam: The patient looked well and was in no acute distress. Dressed appropriately. The patient is alert, interactive, and has appropriate mood and congruent affect. The patient is able to recall the details of their medical history without difficulty. HEENT: Normocephalic, atraumatic. No rashes or other skin lesions noted on the head or face. Good active range of motion of the neck. Neurologic Examination: Mental status, Speech and Language: Normal in ordinary conversation. Cranial nerves: Pupils are equal and round. Extraocular movements are intact. No facial asymmetry or weakness. Tongue midline and moves normal. Motor Examination: No focal weakness. Coordination: No evidence of any ataxia. Please note that with a telehealth encounter a typical physical exam is not possible, and is an inherent limitation with this form of care delivery. Based on all considered variables it was felt thatthe benefits of a telehealth encounter would outweigh the risks of not being able to repeat the neurological examination. The patient previously had a normal general and neurological examination. Based on the information provided by the patient today there is nothing to suspect a new focal neurological deficit. Labs: No results found for this or any previous visit (from the past 24 hour(s)). TSH 11/15/2803/07 Vit D Vit B12 Diagnostic Tests and Imaging: LP 05/19/12 OP 23 LP 08/2012 OP 17 LP 11/16/17 OP 4 ?? Assessment and Plan: Chronic Migraine/Hemicrania continua: She has had an improvement in her headaches with the reinstitution of indomethacin 50 mg 3 times a day. She is utilizing stomach protection with pantoprazole daily. I will have her increase to 75 mg 3 times a day and have her check blood work in 2 weeks. 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 The pathophysiology, natural history, aggravating factors, and my diagnostic/management plan was discussed with the patient in great detail. The risks and benefits of this treatment plan were discussed with the patient. Individual side effect profiles for each medication were discussed in detail. In structions on how to properly take each medication were discussed in detail. The patient was given an opportunity to ask questions. All questions were answered and the patient was satisfied with the explanation(s). Encounter Start Time: 952 Encounter End Time: 1005 Total Time with patient: 12 min Time for chart review: 3 min Total Time: 15 min Greater than 50% of face to face time involved counseling and coordinating care. Please also note that this consultative letter was completed with the assistance of voice recognition software. As result unintentional broom stitcher errors and/or typographical mistakes are possible. If you notice errors please bring them to my attention. If any area requires explanation or clarification please do not hesitate to contact me. REBEKAH Chang APRN [facility] Neurology, Headache Clinic documented in this encounter Plan of Treatment [...] as of this encounter Visit Diagnoses Diagnosis High risk medication use Encounter for long-term (current) use of other medications documented in this encounter Care Teams Fuse Spooler Relationship Specialty Start Date End Date Radha Villagran, PAINT SPRAY TENDER [address] [place] [address] PCP - General Family Medicine 01/22/20 06/21/21 documented as of this encounter
--- OUTSIDE RECORDS SUMMARY | 2024-01-13 18:55 | XMS_ITS | Encounter Summary ---
Author Organization [facility] Address [facility] [place] [address] Care Team Providers Care Drug Regulatory Affairs Specialist Name Role Phone VillagranRadha diaz Palma SALAS Primary Care Provider Encounter Details Date Type Department Care Team (Latest Contact Info) Description 08/25/2020 9:40 AM EDT TH Visit (TeleHealth) [place] [id number] Chase Mackenzie MD [facility] [place] [address] Cavernous malformation Social History Tobacco Use Types [...] as of this encounter Progress Notes * Chase Mackenzie MD - 08/25/2020 9:40 AM EDT Neurosurgery Telephone Clinic Note Kimberli Bales is a 34 y.o. woman with a left frontal cavernoma last seen on 08/04/2020, presenting via telephone visit to rediscuss possible surgery. She states she has had no further seizure-like episodes. We again discussed the rationale for intervention, given that this lesion has increased in size over time and there is a risk of rehemorrhage, she agrees to proceed with surgery. I did discuss her case with my cerebrovascular colleague who agrees with the rationale for intervention. We discussed options for open resection versus laser ablation and she would prefer the laser ablation approach. We did discuss the procedure as well as the risks, including risk of neurologic deficit, hemo rrhage, stroke, incomplete treatment, seizures, infection, etc. She would like to proceed with surgery. We will work to arrange this in the coming months. Chase Mackenzie MD Patient verbally consents to this telephone visit and understands that this visit may be billed, similar to a clinic office visit. I provided care to the patient today via telephone call. The total time associated with this visit was 30 minutes. documented in this encounter Plan of Treatment [...] system documented in this encounter Care Teams Drug Regulatory Affairs Specialist Relationship Specialty Start Date End Date Radha Villagran APRN [address] [place] [address] PCP - General Family Medicine 01/22/20 06/21/21 documented as of this encounter
--- OUTSIDE RECORDS SUMMARY | 2024-01-13 18:55 | XMS_ITS | Encounter Summary ---
Author Organization [facility] Address [facility] [place] [address] Care Team Providers Care Dairy Farm Manager Name Role Phone Amada Carson MD Primary Care Provider [phone] Reason for Visit * Reason Comments Syncope and Collapse Encounter Details Date Type Department Care Team (Late st Contact Info) Description 01/08/2020 1:14 PM EST - 01/08/2020 4:25 PM EST Emergency Emergency Services at [address] [phone] Leila Iraheta MD [facility] [address] EMERGENCY [place] [address] Syncope, unspecified syncope type Discharge Disposition: Home Social History Tobacco Use [...] Sign Reading Time Taken Comments Blood Pressure 134/74 01/08/2020 4:16 PM EST Pulse 85 01/08/2020 4:16 PM EST Temperature 36.5 ??C (97.7 ??F) 01/08/2020 1:14 PM ES T Respiratory Rate 18 01/08/2020 1:14 PM EST Oxygen Saturation 95% 01/08/2020 4:16 PM EST Inhaled Oxygen Concentration - - Weight 136.1 kg (300 lb) 01/08/2020 1:14 PM EST Height - - Body Mass Index 48.06 01/05/2020 11:49 AM EST documented in this encounter Discharge Instructions * Discharge Instructions* Leila Iraheta MD - 01/08/2020 4:19 PM EST Rest, plenty of fluids to stay hydrated. Follow-up with your primary care physician next week for any persistent symptoms. You have any worsening symptoms, return to the ER. * Attachments The following attachments cannot be sent through Care Everywhere. * Fainting (Israeli) documented in this encounter Medications at Time of Discharge Medication Sig Dispensed Refills Start Date End Date citalopram (CeleXA) 40 mg Tablet TAKE 1 TABLET BY MOUTH ONCE DAILY 12/02/2019 b complex vitamins Tablet Take 1 tablet by mouth daily. acetaminophen (Tylenol) 500 mg Tablet Take 1,000 mg by mouth every 6 hours as needed for Pain. triamcinolone (NASACORT or NASACORT OTC) 55 mcg Aerosol, SprayIndications:Chroni c nasal congestion 2 sprays by Nasal route daily. 1 Inhaler 12 01/05/2020 01/21/2020 albuteroL 90 mcg/actuation HFA Aerosol Inhaler 11/27/2019 01/21/2020 hydrOXYzine (Atarax) 25 mg Tablet 11/14/2019 01/21/2020 indomethacin (Indocin) 25 mg Capsule 1 tablet three times per day with meals with 50mg capsules 90 capsule 3 12/03/2019 08/04/2020 diphenhydrAMINE (Benadryl) 25 mg Capsule Take 25 mg by mouth nightly. 01/21/2020 risperiDONE (RisperDAL) 1 mg Tablet Take 0.5 tablets in the morning, 0.5 tablets in the afternoon, and 1 tablet in the evening. 60 tablet 1 11/09/2019 01/21/2020 indomethacin (INDOCIN) 50 mg Capsule Take 1 capsule by mouth 3 times daily (with meals). 90 capsule 3 11/03/2019 08/04/2020 pantoprazole EC (Protonix) 40 mg Tablet, Delayed Release (E.C.) Take 1 tablet by mouth daily. 30 tablet 3 11/03/2019 08/04/2020 lisinopriL (Prinivil;Zestril) 20 mg TabletIndications:Becky tial hypertension Take 1 tablet by mouth daily. 90 tablet 3 03/30/2019 01/21/2020 documented as of this encounter ED Notes * Leila Iraheta MD - 01/08/2020 3:33 PM EST Chief Complaint Patient presents with ??? Syncope and Collapse History obtained from the patient, the paramedics and the medical record. History limited by patient's amnesia to the event. HPI The patient is a 33-year-old female with a history of chronic headaches, complicated migraine, hypertension and anxiety, who presents after a syncopal episode at [facility]. Patient reports she became dizzy while standing in the checkout line, then woke up with people surrounding her. Stna reports patient was in the checkout line, when she passed out for an unclear amount of time, though when paramedics arrived, patient was responsive and there was no postictal phase. There was no reported seizure activity. Patient has had multiple ER visits since September for altered levels of consciousness, with negative work-up to include negative brain MRI, EEG, LP and neurological evaluation. 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 However, patient tells me she never filled this prescription and has not been taking it, as she was concerned about side effects. Upon arrival to the ER, patient had a brief event during triage where she became unresponsive, though maintained normal vital signs, and after approximately 10 seconds, came to with a sternal rub with no postictal phase. She complains of a right-sided headache, which feels like her usual headaches. He denies any chest pain, shortness of breath, abdominal pain, nausea, vomiting, weakness or numbness in her limbs. Allergies Allergen Reactions ??? Oxycodone-Acetaminophen Shortness Of Breath ??? Red Dye Other (See Comments) Stops heart Social History Socioeconomic History ??? Marital status: Spouse name: Farhan Bales ??? Number of children: 2 ??? Years of education: 12 ??? Highest education level: Not on file Occupational History ??? 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 Financial resource strain: Not on file ??? Food insecurity Worry: Not on file Inability: Not on file ??? Transportation needs Medical: Not on file Non-medical: Not on file Tobacco Use ??? Smoking status: Former Smoker Packs/day: 0.25 Years: 2.00 Pack years: 0.50 Types: Cigarettes Quit date: 10/17/2017 Years since quittin.2 ??? Smokeless tobacco: Never Used Substance and Sexual Activity ??? Alcohol use: Not Currently Frequency: Monthly or less Drinks per session: 1 or 2 Binge frequency: Never ??? Drug use: No ??? Sexual activity: Yes Partners: Male control/protection: Surgical Comment: tubal ligation Lifestyle ??? Physical activity Days per week: Not on file Minutes per session: Not on file ??? Stress: Not on file Relationships ??? Social connections Talks on phone: Not on file Gets together: Not on file Attends anabaptism service: Not on file Active member of club or organization: Not on file Attends meetings of clubs or organizations: Not on file Relationship status: Not on file ??? Intimate partner violence Fear of current or ex partner: Not on file Emotionally abused: Not on file Physically abused: Not on file Forced sexual activity: Not on file Other Topics Concern ??? Abuse or Threat: [...] Social History Narrative ??? Not on file Family History Problem Relation Age of Onset [...] Amblyopia Neg Hx ??? Cancer Neg Hx Past Medical History: Diagnosis Date ??? Abnormal cervical Papanicolaou smear 09/09/2018 ??? Diverticulosis of colon 09/09/2018 ??? Dysplasia of cervix 07/17/2006 ??? Dysuria 07/17/2006 episodes of dysuria and frequency but all negative cultures. If sx develop check Micro, GUM ROLLING MACHINE TENDER or stone. ??? Environmental and seasonal allergies [...] JEFF performed by Genevieve Walsh MD at [facility] ??? PRO STABISMUS SURG,TWO HORIZ MUSCLE Right 02/01/2014 STRABISMUS SURGERY, TWO HORIZONTAL MUSCLES performed by Genevieve Walsh MD at [facility] ??? PRO STRABISMUS SURG,PLACE ADJUST SUTURE Right 12/31/2013 STRABISMUS SURGERY, PLACEMENT OF ADJUSTABLE SUTURES IN CONJUNCTION W/ ANOTHER SURGERY performed by Genevieve Walsh MD at [facility] ??? PRO STRABISMUS SURG,SCAR EXTRAOCUL MUSC Right 02/01/2014 STRABISMUS SURGERY WITH SCARRING OF EXTRAOCULAR MUSCLES IN CONJUNCTION W/ ANOTHER SURGERY performedby Genevieve Walsh MD at [facility] ??? SINUS SURGERY ??? TUBAL LIGATION Bilateral 04/24/2011 [facility]; Sherrell Schmidt MD ??? WISDOM TOOTH EXTRACTION N/A 07/01/2002 [facility]; AILEEN RIVERA, LAUREN Review of Systems Constitutional: Negative for fever. HENT: Negative for congestion. Respiratory: Negative for shortness of breath. Cardiovascular: Negative for chest pain. Gastrointestinal: Negative for abdominal pain, nausea and vomiting. Neurological: Positive for headaches. Negative for weakness and numbness. Physical Exam General: Alert and conversant. No acute distress. HENT: Normocephalic. Atraumatic. No scalp tenderness or visible injury. PERRL. EOMI. Sclera clear without injection or icterus. Nares clear. Oropharynx unremarkable. Moist mucous membranes. Neck: No midline tenderness. Painless range of motion. Lungs: Normal respiratory effort. Clear to auscultation bilaterally. No rales, rhonchi, wheezes or stridor. Heart: Regular rate and rhythm. No murmurs or rubs. Abdomen: Obese. Soft, nontender, nondistended. No masses. No bruit. Back: No midline tenderness. Extremities: Nontender. No cyanosis or edema. Equal radial and dorsalis pedis pulses bilaterally. Neuro: Alert and oriented x 3. Clear speech. Slightly decreased left hand senior visual designer. Patient has diminished left foot plantar flexion and dorsiflexion compared to the right. Unable to elicit patellar reflexes bilaterally. Negative Babinski bilaterally. No clonus. Skin: Normal color. Good turgor. Dry. No rashes. Psych: Normal mood. Answers questions appropriately. Procedures MDM EKG: Normal sinus rhythm at a rate of 86, normal axis, normal DE, QRS and QTc intervals, no ST segment elevation. I have evaluated this patient 2 previous times for her altered levels of consciousness, and each time she exhibited varying levels of weakness in her left foot and hand, as well as an episode of severe left foot pain. As per the medical record, during a visit to , patient was found to have subjective left- sided weakness that was not believed to be physiologic in origin. Reglan 10 mg and Benadryl 25 mg IV ordered for headache. Normal saline 1 L IV ordered. CBC and electrolytes show no concerning abnormalities. 3:30pm: Patient reevaluated, reports feeling better, would like to go home. Vital signs are stable,patient shows no new concerning findings on exam, is safe for discharge. Advised to follow-up with her PCP, return to the ER if symptoms worsen. Plan as per discharge instructions. 1. Syncope, unspecified syncope type Condition: Stable and improved Disposition: Discharge Leila Iraheta MD 01/09/20 0114 Leila Iraheta MD 01/09/20 0223 documented in this encounter Miscellaneous Notes * ED Triage - Massiel June RN - 01/08/2020 1:24 PM EST Patient BIBA with syncopal episode while grocery shopping. Patient felt lightheaded and reportedly fell. Patient has no recollection of the fall itself or how long she was unconscious for. Patient iscomplaining of a headache on the right side. Patient experienced a syncopal event during triage when being attached to the monitor but was aroused with a sternal rub. Patient appears emotional. documented in this encounter Plan of Treatment [...] Name Priority Date/Time Associated Diagnosis Comments HEMOGRAM STAT 01/08/2020 2:00 PM EST DIFFERENTIAL, AUTOMATED STAT 01/08/2020 2:00 PM EST HC CBC,PLT & AUTO DIFF STAT 01/08/2020 2:00 PM EST BASIC METABOLIC PANEL STAT 01/08/2020 2:00 PM EST EKG 12-LEAD STAT 01/08/2020 1:24 PM EST documented in this encounter Results * (ABNORMAL) Differential, Automated (01/08/2020 2:00 PM EST) Neutrophil % 68.5 % [facility] Neutrophil Absolute 5.80 1.70 - 6.10 x10(3)/mc L [facility] Lymph % 21.7 % [facility] Lymphocytes Abs 1.8 0.9 - 3.2 x10(3)/mc L [facility] Monocyte % 7.1 % [facility] Monocyte Abs 0.6 0.3 - 0.9 x10(3)/mc L [facility] Eos % 1.7 % [facility] Eosinophils Abs 0.1 0.0 - 0.4 x10(3)/mc L [facility] Basophil % 0.4 % [facility] Baso Absolute 0.0 0.0 - 0.1 x10(3)/mc L [facility] Immature Gran % 0.60 % [facility] Comment: Immature granulocytes(IG's)percentage and absolute count will include metamyelocytes, myelocytes, and promyelocytes. Blood smears from CBCs yielding IG's will be scanned manually for concordance. If this scan disagrees with the automated IG or if promyelocytes are noted, a manual differential will be performed. Immature Gran Absolute 0.05(H) 0.00 - 0.04 x10(3)/mc L [facility] Blood specimen (specimen) 01/08/2020 2:00 PM EST 01/08/2020 2:16 PM EST Narrative Resulting Agency Comment Spec In Lab Leila Iraheta MD HEMATOLOGY ORDERABLE S Performing Organization Address City/[facility]/ZIP Co de Phone Number LABORATORY [address] [place] [address] * (ABNORMAL) Hemogram (01/08/2020 2:00 PM EST) White Blood Cell 8.4 4.0 - 9.5 x10(3)/mc L [facility] Red Blood Cell 3.98(L) 4.00 - 5.21 x10(6)/mc L [facility] Hemoglobin 11.2(L) 11.7 - 15.5 gm/dL [facility] Hematocrit 34.6(L) 35.7 - 45.8 % [facility] Mean Cell Volume 86.9 82.6 - 94.4 fL [facility] Mean Cell Hemoglobin 28.1 27.1 - 32.0 pg [facility] Mean Cell Hemoglobin Concentration 32.4 31.7 - 35.0 gm/dL [facility] Platelet 322 145 - 357 x10(3)/mc L [facility] RDW Standard Deviation 41.6 37.0 - 46.0 fL [facility] RDW coefficient of variation 12.8 11.5 - 14.1 % [facility] Mean Platelet Volume 9.6 7.6 - 12.9 fL LAB[facility]ORY Blood specimen (specimen) 01/08/2020 2:00 PM EST 01/08/2020 2:16 PM EST Narrative Resulting Agency Comment Spec In Lab Leila Iraheta MD HEMATOLOGY ORDERABLE S [facility] [address] [place] [address] * (ABNORMAL) Basic Metabolic Panel (non-fasting) (01/08/2020 2:00 PM EST) Glucose 91 65 - 199 mg/dL [facility] Comment:Diabetes: >=200 mg/d L plus symptoms Blood Urea Nitrogen 14 8 - 18 mg/dL LAB[facility] Creatinine 0.65(L) 0.70 - 1.20 mg/dL LAB[facility] Sodium 139 135 - 145 mmol/L LAB[facility] Potassium 3.9 3.5 - 5.0 mmol/L LAB[facility] Comment: Please note: ??Patients with WBC >100,000 may have falsely elevated Potassium levels. ??For accurate Potassium quantification in these patients send serum separator tube (gold top) for subsequent determinations. ??Contact the Clinical Chemistry Laboratory if there are any questions. Chloride 100 98 - 107 mmol/L LABOR[facility]ORY Carbon Dioxide 28 22 - 31 mmol/L LAB[facility] Anion Gap 11 5 - 15 mmol/L LABORATORY Calcium 9.7 8.5 - 10.5 mg/dL LAB[facility] Est Glomerular Filtration Rate 114 >=60 mL/min/1. 73 m?? LABORATORY Comment: The eGFR was calculated using the CKD-EPI equation. As with all creatinine based estimates of kidney function, eGFR values calculated with the CKD-EPI equation are not accurate in patients with acute kidney failure, extremes of body mass or the acutely ill. [email or web address] eGFR 132 >=60 mL/min/1. 73 m?? LABORATORY Comment: The eGFR was calculated using the CKD-EPI equation. As with all creatinine based estimates of kidney function, eGFR values calculated with the CKD-EPI equation are not accurate in patients with acute kidney failure, extremes of body mass or the acutely ill. [email or web address] Blood specimen (specimen) 01/08/2020 2:00 PM EST 01/08/2020 2:16 PM EST Narrative Resulting Agency Comment Spec In Lab Leila Iraheta MD CHEMISTRY ORDERABLES LABORATORY [address] [place] [address] * EKG 12 Lead (01/08/2020 1:24 PM EST) Ventricular rate 86 BPM MUSE SYSTEM Atrial Rate 86 BPM MUSE SYSTEM P-R Interval 140 ms MUSE SYSTEM QRS Duration 88 ms MUSE SYSTEM Q-T Interval 362 ms MUSE SYSTEM QTC Calculated (Bezet) 433 ms MUSE SYSTEM Calculated P [place] -5 degrees MUSE SYSTEM Calculated R [place] 16 degrees MUSE SYSTEM Calculated T [place] 34 degrees MUSE SYSTEM INTERPRETATION Normal sinus rhythm Normal ECG When compared with ECG of 17-OCT-2019 12:14, No significant change was found Confirmed by MD Hurt Daniel ([id number]) on 01/09/2020 11:58:22 AM MUSE SYSTEM 01/08/2020 1:24 PM EST 01/09/2020 11:58 AM EST Leila Iraheta MD ECG ORDERABLES MUSE SYSTEM documented in this encounter Visit Diagnoses Diagnosis Syncope, unspecified syncope type documented in this encounter Administered Medications Inactive Administered Medications - up to 3 most recent administrations Medication Order MAR Action Action Date Dose Rate Site diphenhydrAMINE (BENADRYL) injection 25 mg 25 mg, Intravenous, ONCE, 1 dose, On Sat01/08/20 at 1404, STAT Given 01/08/2020 2:15 PM EST 25 mg metoclopramide (REGLAN) injection 10 mg 10 mg, Intravenous, ONCE, 1 dose, On Sat01/08/20 at 1404, Doses greater than 10mg should be diluted into 50ml NS., STAT Given 01/08/2020 2:15 PM EST 10 mg sodium chloride 0.9 % (flush) flush 3 mL 3 mL, Intravenous, EVERY 1 MIN PRN, Starting on Sat01/08/20 at 1401, Until Sat01/08/20 at 1826, for flushes pre / post IV fluids or blood draws as needed, Routine sodium chloride 0.9% infusion 1,000 mL, Intravenous, ONCE, 1 dose, On Sat01/08/20 at 1404 New Bag 01/08/2020 2:13 PM EST 1,000 mLs documented in this encounter Active and Recently Administered Medications Times are shown in EST. Scheduled Medication Order 01/06/2020 01/07/2020 01/08/2020 diphenhydrAMINE (BENADRYL) injection 25 mg (COMPLETED) 25 mg, Intravenous, ONCE, 1 dose, On Sat01/08/20 at 1404, STAT 1415 (Given - Provid er: Massiel June RN) metoclopramide (REGLAN) injection 10 mg (COMPLETED) 10 mg, Intravenous, ONCE, 1 dose, On Sat01/08/20 at 1404, Doses greater than 10mg should be diluted into 50ml NS., STAT 1415 (Given - Provid er: Massiel June RN) sodium chloride 0.9% infusion (COMPLETED) 1,000 mL, Intravenous, ONCE, 1 dose, On Sat01/08/20 at 1404 1413 (New Bag - Prov ider: Massiel June RN)1620 (Stopped - Provider: Massiel June RN) PRN Medication Order 01/06/2020 01/07/2020 01/08/2020 sodium chloride 0.9 % (flush) flush 3 mL 3 mL, Intravenous, EVERY 1 MIN PRN, Starting on Sat01/08/20 at 1401, Until Sat01/08/20 at 1826, for flushes pre / post IV fluids or blood draws as needed, Routine documented in this encounter Care Teams Dairy Farm Manager Relationship Specialty Start Date End Date Amada Carson MD [address] [place] [address] PCP - General Family Medicine 08/28/18 01/21/20 documented as of this encounter
--- OUTSIDE RECORDS SUMMARY | 2024-01-13 18:55 | XMS_ITS | Encounter Summary ---
Author Organization [facility] [place] [address] Care Team Providers Care Gastrointestinal Technician Name Role Phone VillagranRadha diaz Palma SALAS Primary Care Provider Encounter Details Date Type Department Care Team (Late st Contact Info) Description 10/11/2020 [place] [phone] Leena Puentes MD [facility] [place] [address] Social History Tobacco Use Types Packs/Day Years [...] encounter Miscellaneous Notes * Telephone Encounter - Leena Puentes MD - 10/11/2020 1:[address] Velez in ER in [facility]. Persistent/breakthrough seizure. Right frontal cavernoma. Started on TPX 50 mg bid. 1X GTC last night. NCCT unchanged with longstadning sinusitis and cavernoma. MCGARRY. Turned head, squeezed eyes shut and teeth grinding. Now with documented in this encounter Plan of Treatment [...] on filedocumented in this encounter Care Teams Gastrointestinal Technician Relationship Specialty Start Date End Date Radha Villagran, LABOR MEDIATOR [address] [place] [address] PCP - General Family Medicine 01/22/20 06/21/21 documented as of this encounter
--- OUTSIDE RECORDS SUMMARY | 2024-01-13 18:55 | XMS_ITS | Encounter Summary ---
Author Organization [facility] [place] [address] Care Team Providers Care Lath Hand Name Role Phone Amada Carson MD Primary Care Provider [phone] Encounter Details Date Type Department Care Team (Late st Contact Info) Description 01/20/2020 Telephone Primary Care at [facility] [place] [phone] Anabela Luong RN Social History Tobacco Use Types Packs/Day [...] encounter Miscellaneous Notes * Telephone Encounter - Anabela Luong RN - 01/20/2020 10:43 AM EST 1 week of elevated bp in the 160-175 over 90-100 for 1 week. She also has been feeling dizzy and fatigued as well. High Threat Infection Intake Questions Best Contact number: [phone] PATIENT TRIAGE: See above would like to discuss medication change COVID-19 Screening and Testing Protocol According to The Center for Disease Control and Prevention (CDC), the following symptoms may indicate COVID-19 if they are new, and not explained by another health condition: COVID-19 Symptoms (check all that apply). Any one of the symptoms below would qualify the patient for testing. [] Fever (subjective or documented fever) [] Chills [] Cough [] Shortness of breath or difficulty breathing [x] Fatigue and dizziness [] Muscle or body aches [] Headache [] New loss of taste or smell [] Sore throat [] Congestion or runny nose [] Nausea or vomiting [] Diarrhea [] Asymptomatic 2. ASYMPTOMATIC PATIENTS (no signs or symptoms suspicious for COVID-19)- Check all that apply. [] Patients being admitted to facilities that require testing prior to admission (ideally done 24-48 hours prior to ) [] Patients being admitted for stem cell or solid organ transplant (ideally done 24-48 hours prior to admission) [] We are performing community asymptomatic screening for: family members or close contacts of confirmed COVID-19 cases; members of or healthcare workers at group homes/shelters, senior care facilities or fpc care facilities (LTCFs); and all first responders. [] For patients with an [facility] primary care provider (PCP), we perform asymptomatic screening requiredfor school, work, or travel. [] Community testing of resident within the [facility] service region ([facility], [place], [place], [place], [facility], [place], [place], [place], [place], [place]) 3. WEEKEND TESTING - URGENT - SYMPTOMATIC OR EXPOSURE [] Provider will call [phone] and give the patient information to the nurse. The nurse willthen contact the patient with an appointment time. PLAN [] Patient scheduled for testing [x] Patient scheduled for an appointment with provider [] Respiratory Clinic [x] [facility] [] [] Patient declined provider appointment [] Triage note sent to provider for input [] After hours - Inform patient to call clinic [phone] in am to arrange testing. [facility] [place] Patient instructions: All symptomatic patients or those with known exposure should self-quarantine until they receive a negative test. If possible they should stay in a separate room from other household members. COVID-19 Quarantine/Self-isolation guide: https://www.[place].gov/covid19/resources-guidance/documents/jhrvibq-gqudte-udwde.pdf documented in this encounter Plan of Treatment [...] on filedocumented in this encounter Care Teams Lath Hand Relationship Specialty Start Date End Date Amada Carson MD [address] [place] [address] PCP - General Family Medicine 08/28/18 01/21/20 documented as of this encounter
--- OUTSIDE RECORDS SUMMARY | 2024-01-13 18:55 | XMS_ITS | Encounter Summary ---
Author Organization [facility] [place] [address] Care Team Providers Care Conservator Artifacts Name Role Phone Amada Carson MD Primary Care Provider [phone] [phone] Reason for Visit * Reason Comments Sinusitis Encounter Details Date Type Department Care Team (Late st Contact Info) Description 12/21/2019 1:30 PM EST TH Visit (TeleHealth) Primary Care at [facility] [address] [place] [id number] Amada Carson MD [address] [place] [address] Sinus pain Social History Tobacco Use Types Packs/Day Years [...] as of this encounter Progress Notes * Amada Carson MD - 12/21/2019 1:30 PM EST [facility] Telehealth Encounter Nurse Call: Patient called to notify of telehealth visit in lieu of office/home visit due to public health emergency. For patients in facilities or with caregivers, these were also notified. BEST PHONE NUMBER: [phone] Is this a cell phone number: yes Patient or family advised that telehealth visit will be conducted similar to office/home visit and may ultimately be billable. Patient or family agrees to visit: yes If yes, given time window for the telehealth visit. Chief complaint entered. Medications and allergies reconciled. Patient advised to check vital signs prior to visit to report to provider if possible (for patientsin facility setting, nursing staff asked to obtain vitals in advance). Subjective: HPI: Kimberli Bales is a 33 y.o. female Due to public health emergency this visit was conducted as a video telehealth encounter. Confirmed that patient consents to visit. Problem: Sinus pain Symptom: Sinus pain Location: Points to maxillary area on right, states also behind right eye Duration: Developed URI symptoms 3 weeks ago Severity: Moderate Quality: Pressure Frequency: Timing: Gradually worsening What improves it: What worsens it: Associated symptoms: Green nasal discharge Relevant symptoms not present: Fever Previous treatments that are effective: Was treated with antibiotics at urgent care but finished them about two weeks ago. The antibiotics helped the ear infection but did not change the sinus symptoms at all. Previous treatments that are ineffective: neti pot, mucinex, oxymetolazine Patient c/o right sided sinus pain and pressure. When she blows her nose she has brown/green mucus.Patient was seen at [facility] three weeks ago and was given an antibiotic. Augmentin tid X 5 days. ROS: Review of Systems Constitutional: Negative for fever. HENT: Positive for postnasal drip, sinus pressure and sinus pain. Negative for sore throat. Respiratory: Negative for cough, shortness of breath and wheezing. Neurological: Negative for headaches. Objective: VS: Exam Constitutional: General: she is not in acute distress. Neurological: Mental Status: she is alert and oriented to person, place, and time. Psychiatric: Mood: Normal. Judgment: Normal. Assessment and Plan: Kimberli was seen today for sinusitis. Diagnoses and all orders for this visit: Sinus pain I started our appointment by saying that I was not sure I could adequately evaluate sinus symptoms without being able to examine her, which is still true. That said, I agreed to give it my best shot. Her sinus symptoms are all on the right side of her face, which is also where her current headachesare located. Discussed that headache syndromes can cause vasomotor rhinitis and nasal congestion. Since the antibiotics treated her ear infection but did not affect the sinus symptoms (and OM and sinusitis are typically caused by the same bacteria), I am not convinced that antibiotics will help hersymptoms. I think that the risks of another course of antibiotics outweighs possible benefits. documented in this encounter Plan of Treatment [...] as of this encounter Visit Diagnoses Diagnosis Sinus pain Other diseases of nasal cavity and sinuses documented in this encounter Care Teams Conservator Artifacts Relationship Specialty Start Date End Date Amada Carson MD [address] [place] [address] PCP - General Family Medicine 08/28/18 01/21/20 documented as of this encounter
--- OUTSIDE RECORDS SUMMARY | 2024-01-13 18:55 | XMS_ITS | Encounter Summary ---
Author Organization [facility] [place] [address] Care Team Providers Care Account Executive Sales Representative Name Role Phone Amada Carson MD Primary Care Provider [phone] Reason for Visit * Reason Onset Date Comments TeleHealth 11/11/2019 Encounter Details Date Type Department Care Team (Late st Contact Info) Description 11/11/2019 Telephone Neurology at [address] [phone] Ashwini Campuzano, EMERGENCY DEPARTMENT AIDE [facility] [place] [address] TeleHealth Social History Tobacco Use Types Packs/Day [...] Telephone Encounter - Eusebia Salinas RN - 11/11/2019 10:41 AM EDT Unable to reach this patient by phone to review medications and allergies prior to upcoming tele-appointment scheduled with Neurology provider. No message left. documented in this encounter Plan of Treatment [...] on filedocumented in this encounter Care Teams Account Executive Sales Representative Relationship Specialty Start Date End Date Amada Carson MD [address] [place] [address] PCP - General Family Medicine 08/28/18 01/21/20 documented as of this encounter
--- OUTSIDE RECORDS SUMMARY | 2024-01-13 18:55 | XMS_ITS | Encounter Summary ---
Author Organization [facility] [place] [address] Care Team Providers Care Solar Lab Technician Name Role Phone VillagranRadha diaz Palma SALAS Primary Care Provider Encounter Details Date Type Department Care Team (Late st Contact Info) Description 08/18/2020 [place] [address] Martha Head Social History Tobacco Use Types Packs/Day Years [...] Miscellaneous Notes * Telephone Encounter - Martha Head - 08/18/2020 10:51 AM EDT ----- Message from Chase Mackenzie MD sent at 08/11/2020 6:37 PM EDT ----- F/u w/ TOV next available to rediscuss surgery * Telephone Encounter - Martha Head - 08/18/2020 10:51 AM EDT scheduled documented in this encounter Plan of Treatment [...] on filedocumented in this encounter Care Teams Solar Lab Technician Relationship Specialty Start Date End Date Radha Villagran, NEUROLOGY MANAGER [address] [place] [address] PCP - General Family Medicine 01/22/20 06/21/21 documented as of this encounter
--- OUTSIDE RECORDS SUMMARY | 2024-01-13 18:55 | XMS_ITS | Encounter Summary ---
Author Organization [facility] [place] [address] Care Team Providers Care Personnel Consultant Name Role Phone Amada Carson MD Primary Care Provider [phone] Encounter Details Date Type Department Care Team (Latest Contact Info) Description 11/03/2019 10:30 AM EDT TH Visit (TeleHealth) Neurology at [address] [address] Ashwini Campuzano, BANK TELLER [facility] [place] [address] Hemicrania continua; Spells of decreased attentiveness Social History Tobacco Use Types Packs/Day Years [...] Progress Notes * Ashwini Campuzano, JOSUE - 11/03/2019 10:30 AM EDT [facility] - Follow up Appointment - TeleHealth Visit telephon System Kimberli R Amairani gave verbal consent over theQuill Contentlephone system for their TeleHealth Visit. They understand that this visit will be billed to their insurance, similar to a clinic visit. They verify that they live within the State of [place] where I hold licensure. Patient Location: [place], [place] Neurology Headache Clinic Follow-up Patient Name: Kimberli Bales Patient ID: Kimberli Bales is a 33 y.o. female seen at [facility] previously by Dr. Mercado, Headache Fellow. She has a history of Chronic Migraine, Hemicrania continua, strabismus s/p bilateral lateral rectus recessions and repeat right lateral rectus recession. She carried a diagnosis of IIH butshe never had a documented elevation in CSF opening pressure of >25cm of water. Last opening pressure in fact was 4cm H20. Interval History: Headaches: 6 times per week. -09/27 lasting 4-5 hours. Uses rest only for acute treatment. One day per week completely headache. On Indomethacin she had 3-4 headache free days. Dexamethasone did not help her headaches. Started on risperidol which is helping her anxiety by general neuro. It is not helping her headaches. She was seen by Dr. 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 She was admitted on 10/27/2019 for further evaluation of spells of AMS and headache. She was started on Thorazine but that was unavailable. Risperdal was substituted while awaiting Thorazinedelivery. 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 Medications: Current Outpatient Medications Medication Sig Dispense Refill ??? chlorproMAZINE (Thorazine) 25 mg Tablet Take 1-4 tablets by mouth 3 times daily. Day 1-5, take 25/25/50mg. Day 5-10, take 25/50/75mg. Day 11-15, take 50/50/75mg. After Day 15, take 50/50/100mg. (Patient not taking: Reported on 11/02/2019) 360 tablet 0 ??? risperiDONE (RisperDAL) 1 mg Tablet Take 0.5 tablets in the morning, 0.5 tablets in the afternoon, and 1 tablet in the evening. 10 tablet 0 ??? acetaminophen (Tylenol) 500 mg Tablet Take 1,000 mg by mouth every 6 hours as needed for Pain. ??? citalopram (CeleXA) 40 mg Tablet Take 1 tablet by mouth once daily (Patient not taking: Reported on 11/02/2019) 90 tablet 3 ??? lisinopriL (Prinivil;Zestril) 20 mg Tablet Take 1 tablet by mouth daily. (Patient not taking: Reported on 11/02/2019) 90 tablet 3 No current facility-administered medications [...] [] Doxycycline [] Lidocaine patch (Lidoderm) [] Kipton [] Memantine (Namenda) [] Montelukast (Singulair) [] [...] [] Acupuncture [] Acupressure [] Biofeedback [] Car Record Clerk [] Cognitive Behavioral Therapy [] Craniosacral therapy [...] Substances: [] Acetaminophen/Codeine (Tylenol #3) [] Acetaminophen/Hydrocodone (Iuka/Vicodin) [] Acetaminophen/Oxycodone (Percocet) [] Butorphanol (Ketamine/Stadol) [] Carisoprodol (Soma) [] Fentanyl [] Hydrocodone [] Hydromorphone (Dilaudid) [x] Marijuana [] Morphine (MS Contin) [x] Oxycodone [x] Tramadol (Ultram) [] Zolpidem (Ambien) Physical Exam: Video system not working. No physical exam able to be done. Labs: No results found for this or any previous visit (from the past 24 hour(s)). TSH 11/15/2803/07 Vit D Vit B12 Diagnostic Tests and Imaging: LP 05/19/12 OP 23 LP 08/2012 OP 17 LP 11/16/17 OP 4 ?? Assessment and Plan: Chronic Migraine/Hemicrania continua: She will restart the indomethacin as it is clear that her episodes are not related to the indomethacin. She will start 50 mg 3 times a day with food as well as pantoprazole 40 mg daily for GI protection. 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 For right now she feels the Risperdal is helpful. I have already referred her to behavioral health at the previous visit. Because of the instability of her headaches I will see her in telehealth follow- up as scheduled on November 11. The pathophysiology, natural history, aggravating factors, and [...] satisfied with the explanation(s). Encounter Start Time: 1044 Encounter End Time: 1057 Total Time with patient: 13 min Time for chart review: 8 min; 14 min for to work out technical issues Total Time: 35 min Greater than 50% of face to face time involved counseling and coordinating care. Please also note that this consultative letter was completed with the assistance of voice recognition software. As result unintentional prototype engineer manager errors and/or typographical mistakes are possible. If you notice errors please bring them to my attention. If any area requires explanation or clarification please do not hesitate to contact me. REBEKAH Chang APRN [facility], [facility]ache Clinic documented in this encounter [...] as of this encounter Visit Diagnoses Diagnosis Hemicrania continua Spells of decreased attentiveness Other general symptoms documented in this encounter Care Teams Personnel Consultant Relationship Specialty Start Date End Date Amada Carson MD [address] [place] [address] PCP - General Family Medicine 08/28/18 01/21/20 documented as of this encounter
--- OUTSIDE RECORDS SUMMARY | 2024-01-13 18:55 | XMS_ITS | Encounter Summary ---
Author Organization [facility] [place] [address] Care Team Providers Care Extract Mixer Name Role Phone Amada Carson MD Primary Care Provider [phone] [phone] Encounter Details Date Type Department Care Team (Late st Contact Info) Description 12/21/2019 Telephone Primary Care at [facility] [place] [phone] Anabela Luong RN Social History Tobacco Use [...] Telephone Encounter - Anabela Luong RN - 12/21/2019 11:06 AM EST High Threat Infection Intake Questions Best Contact number: PATIENT TRIAGE: Sinus symptoms went to [facility] about 3 weeks ago, got an antibiotic that she needed totaper (? Steriod) and an inhaler. Unclear if she got an antibiotic. She is adamant that she wants to be seen by Russel Carson only, I explained that we are not seeing any patients with Upper respiratory symptoms in the [facility], we are giving appointments at the Respiratory clinic. She stated that she will just go back to [facility] when I offered her an appointment tomorrow in the Resp clinic (none today) COVID-19 Screening and Testing Protocol According to [...] [] Shortness of breath or difficulty breathing [] Fatigue [] Muscle or body aches [x] Headache sinus headache [] New loss of taste or smell [] Sore throat [x] Congestion or runny nose [] Nausea or vomiting [] Diarrhea 2. ASYMPTOMATIC PATIENTS (no signs or symptoms [...] of or healthcare workers at group homes/shelters, fdc facilities or local company intermodal truck driver care facilities (LTCFs); and all first responders. [] For patients with an [facility] primary care provider (PCP), we perform asymptomatic screening requiredfor school, work, or travel. [] Community testing of resident within the [facility] service region ([facility], [place], [place], [place], [place], [place], [place], [place], [place], [place] 3. PATIENT REQUEST [] Patient does not meet above criteria but is requesting testing. All patients requesting testing will need to be referred below to [facility] prior to scheduling. PLAN [] Patient scheduled for an appointment with provider [] OV []TH [] Patient declined provider appointment [] Patient referred to [facility] for testing (send signed note to [facility] PUBLIC HEALTH POOL) [] Triage note sent to provider for input Patient instructions: documented in this encounter Plan of Treatment [...] on filedocumented in this encounter Care Teams Extract Mixer Relationship Specialty Start Date End Date Amada Carson MD [address] [place] [place] [address] PCP - General Family Medicine 08/28/18 01/21/20 documented as of this encounter
--- OUTSIDE RECORDS SUMMARY | 2024-01-13 18:55 | XMS_ITS | Encounter Summary ---
[place] [address] Care Team Providers Care Public Works Technician Name Role Phone Amada Carson MD Primary Care Provider [phone] [phone] Encounter Details Date Type Department Care Team (Late st Contact Info) Description 12/16/2019 Telephone Primary Care at [facility] [place] [phone] Ruth Gastelum RN Social History Tobacco Use Types Packs/Day [...] encounter Miscellaneous Notes * Telephone Encounter - Ruth Gastelum RN - 12/18/2019 2:25 PM EDT Lm notifying therapist that PCP doesn't know the rationale for rx prescribed by neurology. They didn't write the rationale for her exact med regimen. * Telephone Encounter - Amada Carson MD - 12/17/2019 1:12 PM EDT Risperidone was prescribed by her neurologist. * Telephone Encounter - Amada Carson MD - 12/17/2019 8:25 AM EDT Can you find out what she would like to know about the medications? * Telephone Encounter - Ruth Gastelum RN - 12/16/2019 1:58 PM EDT Kaylee treadwell, art therapist [phone], LM asking to discuss medications and why pt is she is taking medications. Release says discuss medications. But therapist wants to discuss why patient was admitted? Why was she in restraints? What were the delusions? What caused the delusions? Wants a comprehensive look at physical and mental health. documented in this encounter Plan of Treatment [...] on filedocumented in this encounter Care Teams Public Works Technician Relationship Specialty Start Date End Date Amada Carson MD [address] [place] [address] PCP - General Family Medicine 08/28/18 01/21/20 documented as of this encounter
--- OUTSIDE RECORDS SUMMARY | 2024-01-13 18:55 | XMS_ITS | Encounter Summary ---
Author Organization [facility] Address [facility] [place] [address] Care Team Providers Care Deputy Harbormaster Name Role Phone VillagranRadha diaz JOSUE Primary Care Provider Encounter Details Date Type Department Care Team (Latest Contact Info) Description 11/24/2020 9:40 AM EDT TH Visit (TeleHealth) [place] [address] Chase Mackenzie MD [facility] [place] [address] Cavernous malformation Social History Tobacco Use Types [...] Progress Notes * Chase Mackenzie MD - 11/24/2020 9:40 AM EDT Neurosurgery Telephone Clinic Note ?? Kimberli Bales is a 34 y.o. 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 She reports she has been having more of theseseizure-like events with tingling and loss of feeling on the right side of her body. She has presented to outside ED with these symptoms and has been seeing her neurologist. 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 I reviewed her recent MRI scan from 11/16/2020 and thisdoes not clearly demonstrate any new bleeding. However, there has clearly been bleeding in the pastfrom this cavernoma and I would still advocate treatment. She is very interested in surgery and feels significant anxiety awaiting surgery. We have a tentative surgical date in December and we will continue to work towards this. Chase Mackenzie MD ?? Patient verbally consents to this telephone visit and understands that this visit may be billed, similar to a clinic office visit. ?? I provided care to the patient today via telephone call. The total time associated with this visit was 20 minutes. ?? documented in this encounter Plan of Treatment [...] system documented in this encounter Care Teams Deputy Harbormaster Relationship Specialty Start Date End Date Radha Villagran, INSPECTOR WATCH ASSEMBLY [address] [place] [address] PCP - General Family Medicine 01/22/20 06/21/21 documented as of this encounter
--- OUTSIDE RECORDS SUMMARY | 2024-01-13 18:55 | XMS_ITS | Encounter Summary ---
Author Organization [facility] [place] [address] Care Team Providers Care Sheet Rock Layer Name Role Phone Amada Carson MD Primary Care Provider [phone] Encounter Details Date Type Department Care Team (Late st Contact Info) Description 01/15/2020 3:40 PM EST Telehealth [place] [address] Telehealth, Neurology None Social History Tobacco Use [...] on filedocumented in this encounter Care Teams Sheet Rock Layer Relationship Specialty Start Date End Date Amada Carson MD [address] [place] [address] PCP - General Family Medicine 08/28/18 01/21/20 documented as of this encounter
--- OUTSIDE RECORDS SUMMARY | 2024-01-13 18:55 | XMS_ITS | Encounter Summary ---
Author Organization [facility] Address [facility] [place] [address] Care Team Providers Care Ip Litigation Associate Name Role Phone VillagranRadha diaz Palma SALAS [...] Expiration Date Visits Re quested Visits Authorized [id number] 1 1 Encounter Details Date Type Department Care Team (Late st Contact Info) Description 01/09/2021 7:40 AM EST - 01/09/2021 1:25 PM EST [facility] [place] [address] Chase Mackenzie MD [facility] [place] [address] @[email or web address]-SURG. FOR AVM,SUPRATENTORIAL, SIMPLE (WRVU 32.55) Social History Tobacco Use Types Packs/Day Years [...] Reading Time Taken Comments Blood Pressure 120/70 01/09/2021 6:13 AM EST Pulse 77 01/09/2021 6:13 AM EST Temperature 36.9 ??C (98.4 ??F) 01/09/2021 6:13 AM ES T Respiratory Rate 18 01/09/2021 6:13 AM EST Oxygen Saturation 97% 01/09/2021 6:13 AM EST Inhaled Oxygen Concentration - - [...] who have questions please contact the health personal care assistant that requested your imaging first. Electronically signed by: Nathanael Hurtado MD, [facility] ([phone]), at 01/09/2021 3:25 PM Pending Studies and [...] anticoagulant, and non-steroidal anti-inflammatory (NSAIDs) drugs. Common ljyl-kte-iyqqtcm medications which should be avoided include Aspirin, [...] Mackenzie. Please call the Neurosurgery Office at [phone] if you do not receive a scheduled appointment within two weeks. Imaging: No Imaging required at follow-up. HOW TO REACH NEUROSURGERY Office Hours: Saturday through Saturday, 8am-5pm. Call . On weekends or after office hours: Call [phone] and ask the paper baling machine operator to page the Neurosurgery Resident/Advanced Practice Provider senior sales compensation analyst. IMPORTANT PHONE NUMBERS: Outpatient Nurse (Patricia Islas) Inpatient Nurses Neurosurgical Resident/Advanced Practice Provider On-Call (after 5pm or before 8am) Neurosurgery offices (Saturday through Saturday between 8am-5pm): Adult Neurosurgery Dr. Chase Spann Pediatric Neurosurgery Dr. Janet Torres Advanced Practice Providers Eusebia Navas, Nurse Practitioner (outpatient) Brittany Castle, Physician Vegetable Handler (inpatient) Nida Childress, Nurse Practitioner (inpatient) Jodi Jett, Nurse Practitioner (inpatient) Olimpia Cruz, Physician Vegetable Handler (inpatient) Olimpia Moore, Physician Vegetable Handler (inpatient) Dali Cali, Physician Vegetable Handler (outpatient: spine) Myke Pinto, Nurse Practitioner (inpatient/outpatient) Robert Rossi, Physician Vegetable Handler (outpatient) Tiffanie Wilson, Nurse Practitioner (outpatient: neuro-oncology) HOW TO REACH NEUROSURGERY Contact your Doctor Office Hours: Saturday through Saturday, 8am-5pm. Call . On weekends or after office hours: Call [phone] and ask the paper baling machine operator to page the Neurosurgery Resident senior sales compensation analyst. IMPORTANT PHONE NUMBERS: Outpatient Nurse (Patricia Islas) Inpatient Nurses Neurosurgical Resident On-Call (after 5pm or before 8am) Neurosurgery offices (Saturday through Saturday between 8am-5pm): Adult Neurosurgery Dr. Chase Spann Pediatric Neurosurgery Dr. Janet Torres Advanced Practice Providers Eusebia Navas, Nurse Practitioner (outpatient) Brittany Castle, Physician Vegetable Handler (inpatient) Nida Childress, Nurse Practitioner (inpatient) Olimpia Cruz, Physician Vegetable Handler (inpatient) Jodi Jett, Nurse Practitioner (inpatient) Olimpia Moore, Physician Vegetable Handler (inpatient) Dali Cali, Physician Vegetable Handler (outpatient: spine) Myke Pinto, Nurse Practitioner (inpatient/outpatient) Robert Rossi, Physician Vegetable Handler (outpatient) Tiffanie Wilson, Nurse Practitioner (outpatient: neuro-oncology) * Your surgeon may not be manager call, so be ready to tell about yourself [...] anticoagulant, and non-steroidal anti-inflammatory (NSAIDs) drugs. Common teub-mlp-dmgsxbr medications which should be avoided include Aspirin, [...] Mackenzie. Please call the Neurosurgery Office at [phone] if you do not receive a scheduled appointment within two weeks. Imaging: No Imaging required at follow-up. HOW TO REACH NEUROSURGERY Office Hours: Saturday through Saturday, 8am-5pm. Call . On weekends or after office hours: Call [phone] and ask the paper baling machine operator to page the Neurosurgery Resident/Advanced Practice Provider senior sales compensation analyst. IMPORTANT PHONE NUMBERS: Outpatient Nurse (Patricia Islas) Inpatient Nurses Neurosurgical Resident/Advanced Practice Provider On-Call (after 5pm or before 8am) Neurosurgery offices (Saturday through Saturday between 8am-5pm): Adult Neurosurgery Dr. Chase Spann Pediatric Neurosurgery Dr. Janet Torres Advanced Practice Providers Eusebia Navas, Nurse Practitioner (outpatient) Brittany Castle, Physician Vegetable Handler (inpatient) Nida Childress, Nurse Practitioner (inpatient) Jodi Jett, Nurse Practitioner (inpatient) Olimpia Cruz, Physician Vegetable Handler (inpatient) Olimpia Moore, Physician Vegetable Handler (inpatient) Dali Cali, Physician Vegetable Handler (outpatient: spine) Myke Pinto, Nurse Practitioner (inpatient/outpatient) Robert Rossi, Physician Vegetable Handler (outpatient) Tiffanie Wilson, Nurse Practitioner (outpatient: neuro-oncology) [...] with spacer fluticasone propionate (Flonase) 50 mcg/actuation [place], Suspension 2 sprays by Each Nare route [...] AM EST D/C planning: Team: Neurosurg Pager: [phone] Pt to d/c home via private vehicle. Pt/team feel no d/c needs identified at this time. Pt is aware of d/c plan. Randee Leahy MSN-Ed, RN ACM pvc loader Office of Care Management Pager #[phone] * Digna Prbahakar RN - 01/10/2021 10:32 AM EST Kimberli [...] CV: WDL Resp: WDL RA GI: LBM STAMP MACHINE SERVICER Diet Order: Regular diet Feeding: independent : [...] - Current Diet: Regular diet PLEASE PAGE [phone] WITH QUESTIONS Active Hospital Problems Diagnosis ??? [...] Team made aware and was seen by TECHNICAL MARKETING ENGINEER. Single dose tramadol given to positive effect. [...] Operative Note Patient Name: Kimberli Bales : [id number] MR#: [id number] Case Date: 01/09/2021 Surgeon: Surgeon(s) and Role: [...] Mackenzie MD - 01/09/2021 11:15 AM EST [facility] Operative Note Patient Name: Kimberli Bales : [id number] MR#: [id number] Case Date: 01/09/2021 Surgeon: Surgeon(s) and Role: [...] Her??head was then placed in??the 4-point head of housekeeping.??She??was positioned supine with her??head midline and neutral.??We clipped her hair in the left frontal region. We then used 1000 drapes to delineate an area around the planned entry. We then prepped and draped in the usualsterile fashion. We performed a [facility] mandatory hard stop timeout, confirming the patient's [...] then drilled through the bone using the AQH CD4 drill. We then confirmed our trajectory again using the MRI and placed a ceramic stylet to 1.5 cm short of target. With this confirmed, we placed the Boats.comase laser catheter and fiber to target and confirmed this on MRI. 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 A post-operative MRI was obtained.?? We then removed the laser fiber and ClearPoint frame and placed a suture at the entry site covered with Dermabond. We then removed all draping. Her??head was then removed from the head of housekeeping. She was thenallowed to awaken from anesthesia, [...] 2:30 PM EST Unlisted Procedure Nervous System (84177) Yes 01/09/2021 7:48 AM EST Cavernous malformation Stereotactic Cptr Asstd Px Cranial, Intradural (33242) Yes 01/09/2021 7:48 AM EST Cavernous malformation Brain Avm Surg, Supratent, Simple (04801) Yes 01/09/2021 7:48 AM EST Cavernous malformation RAPID COVID-19 PCR ([facility]) Routine 01/09/2021 7:16 AM EST CRANI-SURG. FOR AVM,SUPRATENTORIAL, SIMPLE Routine 01/09/2021 5:55 AM EST Cavernous malformation documented in this encounter Results * (ABNORMAL) Differential, Automated (01/10/2021 5:50 AM EST) Neutrophil % 84.8 % [facility] Neutrophil Absolute 12.02(H) 1.70 - 6.10 x10(3)/mc L [facility] Lymph % 11.4 % [facility] Lymphocytes Abs 1.6 0.9 - 3.2 x10(3)/mc L [facility] Monocyte % 3.3 % [facility] Monocyte Abs 0.5 0.3 - 0.9 x10(3)/mc L [facility] Eos % 0.0 % [facility] Eosinophils Abs 0.0 0.0 - 0.4 x10(3)/mc L [facility] Basophil % 0.1 % [facility] Baso Absolute 0.0 0.0 - 0.1 x10(3)/mc L [facility] Immature Gran % 0.40 % [facility] Comment: Immature granulocytes(IG's)percentage and absolute count will include metamyelocytes, myelocytes, and promyelocytes. Blood smears from CBCs yielding IG's will be scanned manually for concordance. If this scan disagrees with the automated IG or if promyelocytes are noted, a manual differential will be performed. Immature Gran Absolute 0.06(H) 0.00 - 0.04 x10(3)/mc L [facility] Blood 01/10/2021 5:50 AM EST 01/10/2021 6:02 AM EST Narrative Resulting Agency Comment Spec In Lab Elder Cuenca MD HEMATOLOGY ORDERABLE S [facility] [place] [address] * (ABNORMAL) Hemogram (01/10/2021 5:50 AM EST) White Blood Cell 14.2(H) 4.0 - 9.5 x10(3)/mc L [facility] Red Blood Cell 4.32 4.00 - 5.21 x10(6)/mc L [facility] Hemoglobin 12.6 11.7 - 15.5 g/dL [facility] Hematocrit 38.9 35.7 - 45.8 % [facility] Mean Cell Volume 90.0 82.6 - 94.4 fL [facility] Mean Cell Hemoglobin 29.2 27.1 - 32.0 pg [facility] Mean Cell Hemoglobin Concentration 32.4 31.7 - 35.0 g/dL [facility] Platelet 287 145 - 357 x10(3)/mc L [facility] RDW Standard Deviation 41.0 37.0 - 46.0 fL [facility] RDW coefficient of variation 12.4 11.5 - 14.1 % [facility] Mean Platelet Volume 9.8 7.6 - 12.9 fL [facility] NRBC% auto 0.0 % [facility] NRBC Absolute 0.000 0.000 - 0.000 x10(3)/mc L [facility] Blood 01/10/2021 5:50 AM EST 01/10/2021 6:02 AM EST Narrative Resulting Agency Comment Spec In Lab Elder Cuenca MD HEMATOLOGY ORDERABLE S [facility] [place] [address] * (ABNORMAL) Basic Metabolic Panel (non-fasting) (01/10/2021 5:50 AM EST) Glucose 117 65 - 199 mg/dL [facility] Comment:Diabetes: >=200 mg/d L plus symptoms Blood Urea Nitrogen 6(L) 8 - 18 mg/dL [facility] Creatinine 0.53(L) 0.70 - 1.20 mg/dL [facility] Sodium 138 135 - 145 mmol/L [facility] Potassium 4.1 3.5 - 5.0 mmol/L [facility] Comment: Please note: ??Patients with WBC >100,000 may have falsely elevated Potassium levels. ??For accurate Potassium quantification in these patients send serum separator tube (gold top) for subsequent determinations. ??Contact the Clinical Chemistry Laboratory if there are any questions. Chloride 108(H) 98 - 107 mmol/L [facility] Carbon Dioxide 19(L) 22 - 31 mmol/L [facility] Anion Gap 11 5 - 15 mmol/L [facility] Calcium 9.0 8.5 - 10.5 mg/dL [facility] Est Glomerular Filtration Rate 121 >=60 mL/min/1. 73 m?? [facility] Comment: This patient? s estimated [...] In Lab Chase Mackenzie MD CHEMISTRY ORDERABLES [facility] [place] [address] * MRI Brain wwo Contrast (Generic) (01/09/2021 [...] who have questions please contact the health personal care assistant that requested your imaging first. ? Electronically signed by: Nathanael Hurtado MD, [facility] ([phone]), at 01/09/2021 3:25 PM Narrative 01/09/2021 3:25 [...] patients who have questions please contactthe health personal care assistant that requested your imaging first. Electronically signed by: Nathanael Hurtado MD, [facility]([phone]), at 01/09/2021 3:25 PM Chase Mackenzie MD [facility] MRI ORDERABLES * COVID-19 PCR (01/09/2021 7:16 AM EST) SARS-CoV-2 RNA (Rapid) Not Detected Not Detected [facility] Comment: This result should be [...] using the Simplexa COVID-19 Direct Assay by [employer] as authorized by the FDA issued Emergency [...] Department of Pathology and Laboratory Medicine at [facility], certified under the Clinical Laboratory [...] fact sheets at the following FDA website: https://www.fda.gov/medical-devices/eblskpoyhlr-hfqeapw-2989-fpmbl-41-ctakiprct- use-a cainffsihqood-jkvupvr-csfupcq/tdxkb-mtlycaoptxl-rtbq SARS-CoV-2 Source REPAIR SERVICER Swab [facility] Nasopharyngeal Swab 01/10/20 7:16 AM EST 01/09/2021 10:18 AM EST Comment:Symptoms->Surveillan ce Narrative Resulting Agency Comment Spec In Lab Chase Mackenzie MD MICROBIOLOGY - GENER AL ORDERABLES [facility] [address] [place] [address] documented in this encounter Visit Diagnoses Diagnosis [...] Given 01/09/2021 5:43 PM EST 4 mg levETIRAcetam (Keppra) tablet 1,000 mg 1,000 [...] Given 01/09/2021 8:15 PM EST 100 mg documented in this encounter Active and [...] Knight RN)0546 (See Alternative - Provider: Paul Knight, RADHA) dexamethasone (Decadron) tablet 4 mg(Linked Group 1) [...] on Sat01/09/21 at 1815, Until Discontinued, Routine 1743 (Given - Provider: Digna Prabhakar RN) 0807 [...] 2130, Until Discontinued, Recovery (Recovery-Hospital Unit), Routine 213 (Given - Provider: Paul Knight RN) 0808 [...] 1 dose, On Sat01/09/21 at 2145, Routine 211 (Given - Provider: Paul Knight RN) Continuous [...] ordered pain medications are indicated. , Routine 1840 (See Alternative - Provider: Digna Prabhakar RN) 0545 (See Alternative - Provider: Paul Knight, RADHA) acetaminophen (Tylenol) suppository 975 mg(Linked Group 3) [...] 0545 (See Alternative - Provider: Paul Knight, RADHA) acetaminophen (Tylenol) tablet 1,000 mg(Linked Group 3) [...] 4mg documented in this encounter Care Teams Ip Litigation Associate Relationship Specialty Start Date End Date Radha Villagran, TECHNICAL MARKETING ENGINEER [address] [place] [address] PCP - General Family Medicine 01/22/20 06/21/21 documented as of this encounter
--- OUTSIDE RECORDS SUMMARY | 2024-01-13 18:55 | XMS_ITS | Encounter Summary ---
Author Organization [facility] [place] [address] Care Team Providers Care Marketing Operations Analyst Name Role Phone VillagranRadha diaz JOSUE Primary Care Provider Encounter Details Date Type Department Care Team (Late st Contact Info) Description 06/29/2020 12:05 AM EDT Ancillary Procedure Radiology Library at [facility] [place] [address] Chase Mackenzie MD [facility] [place] [address] Social History Tobacco Use Types Packs/Day Years [...] Associated Diagnosis Comments FILM LIBRARY STORAGE ONLY MR HEAD Routine 06/29/2020 12:05 AM EDT documented in this encounter Results * Film Library- Storage Only MR Head (06/29/2020 12:05 AM EDT) Narrative [place] - 07/03/2020 7:25 PM EDT This exam is auto-finalizing. It's purpose is for storage only. Chase Mackenzie MD IMG FILM LIBRARY ORD ERABLES [place], [place] documented in this encounter Visit Diagnoses Not on filedocumented in this encounter Care Teams Marketing Operations Analyst Relationship Specialty Start Date End Date Radha Villagran, GEOSPATIAL SYSTEMS INTEGRATOR [address] [place] [place] [address] PCP - General Family Medicine 01/22/20 06/21/21 documented as of this encounter
--- OUTSIDE RECORDS SUMMARY | 2024-01-13 18:55 | XMS_ITS | Encounter Summary ---
Author Organization [facility] Address [facility] [place] [address] Care Team Providers Care Clinical Laboratory Technician Name Role Phone VillagranRadha diaz JOSUE Primary Care Provider [phone] Reason for Visit * Auth/Cert Specialty Diagnoses [...] Expiration Date Visits Re quested Visits Authorized [id number] 1 1 Encounter Details Date Type Department Care Team (Late st Contact Info) Description 01/09/2021 7:48 AM EST Anesthesia Event [facility] [place] [address] Elsie Miguel MD [facility] [place] [address] Roger Spears MD [facility] [place] [address] Anesthesia Record Procedure Summary Procedure Name Responsible Anesthesiologist Anesthesia Start Time Anesthesia Stop Time @CRANI-SURG. FOR AVM,SUPRATENTORIAL, SIMPLE (WRVU 32.55) (Left: Head) Elsie Miguel MD 01/09/21 0748 01/09/21 1510 Events Date Time Event Comment 01/09/2021 0708 0748 AN Verify 0748 Start 0748 An Start Data 0758 An Induction 0804 An Intubation 0830 Anesthesia Ready 1005 Break/Relief In I assumed ca re for Break Relief before which we: 1. Identified the patient 2. Identified the responsible provider(s) 3. Reviewed the pertinent medical history 4. Discussed the surgical plan and course 5. Reviewed intra-op anesthesia management and issues during anesthesia 6. Set expectations for the relief (and/or post-procedure) period 7. Allowed opportunity for questions and acknowledgement of understanding Chema Velazquez CRNA 1439 Quick Note Patient found t o have bleeding surgical scalp incision just prior to extubation. Per surgical team's request, patient's anesthetic was deepened to allow for repair of incision to control bleeding prior to extubation 1439 Quick Note Patient given a lbuterol through ETT to rule out bronchospasm contributing to transient desaturation, likely 2/2 de-recruitment with coughing, registered as isoflurane on record 1454 Extubation/LMA Out Patient h as met criteria for extubation. Oropharynx suctioned and patient extubated to 6lpm O2 via simple mask. Spontaneous ventilation maintained and no distress noted. 1456 an stop data 1508 Recovery or ICU Handoff Kenia ent care was transferred to the destination unit staff after review of the patient's medical history, current anesthetic/surgical status and plan, according to the Provider Handoff Checklist. 1510 Stop Meds Name Total Midazolam 2 mg fentaNYL 200 mcg IV Lidocaine 100 mg Propofol 350 mg Rocuronium 180 mg PHENYLephrine 80 mcg Ondansetron 8 mg Dexamethasone 8 mg ceFAZolin 6 g HYDROmorphone 2 mg/mL 2 mg Dexmedetomidine 36 mcg Sugammadex 200 mg Albuterol Inhaler 6 puff Lactated Ringers 1,000 mL sodium chloride 0.9% infusion 900 mL * Agents Name Sevoflurane (et) Isoflurane (et) * Blood No blood administrations on file. 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) Peripheral IV Line - Single Lumen 01/09/21; 0626; metacarpal vein (top of hand), right; [id number] catheter system; 20 gauge, 1 in length; Martha Brice RN; 01/10/21; 1034 01/09/21 0626 by Martha Brice RN 01/10/21 1034 by Digna Prabhakar RN ETT Mask Ventilation: Reddy espinal (1); ETT Type: Cuffed, Oral; ETT Size: 7 mm; Mac Blade: 3; Notes: Asleep, Pre-O2, Stylette, Cricoid Pressure; Attempts: 1; Laryngoscopy Grade: 1; ETT Placement Verified By: Auscultation, Capnometry; Secured at Teeth: 20 cm; Inserted by: Lamont ESTRADA; Removal Date: 01/09/21; Removal Time: 1454 01/09/21 0804 by Rudolph Miguel CRNA 01/09/21 1454 by Rudolph Miguel CRNA (RETIRED) Peripheral IV Line - Single Lumen 01/09/21; 0807; dorsal arch vein (top of hand), left; 18 gauge; Lamont LI; 01/10/21; 1035 01/09/21 0807 by Rudolph Miguel CRNA 01/10/21 1035 by Digna Prabhakar RN Urethral Catheter 01/09/21; 0810; Surg tim longer than 2 hours; indwelling double lumen catheter; hydrophilic coated, latex; 14; inserted at this facility (clear yellow urine return); 1; 5; 5; none; drainage bag to dependent drainage; 01/09/21; 1420 01/09/21 0810 by Wilda Middleton RN 01/09/21 1420 by Wilda Middleton RN Arterial Line 01/09/21; 0830; radi al artery, right; 20 gauge; Ultrasound Guidance; continuous blood pressure monitoring; Lamont LI; Sterile Prep, Sterile Gloves; LDA not present upon assessment; 01/09/21; 1600 01/09/21 0830 by Rudolph Miguel CRNA 01/09/21 1600 by Digna Prabhakar RN documented in this encounter Social History Tobacco Use Types Packs/Day Years [...] on file documented as of this encounter OR Notes * Anesthesia Postprocedure Evaluation - Elsie Miguel MD - 01/09/2021 5:27 PM EST Department of Anesthesiology Post-procedure Note Patient: Kimberli Bales Procedure Summary Date: 01/09/21 Room / Location: [facility] / [facility] Anesthesia Start: 0748 Anesthesia Stop: 1510 Procedures: @CRANI-SURG. FOR AVM,SUPRATENTORIAL, SIMPLE (WRVU 32.55) (Left Head) STEREOTACTIC COMPUTER-ASSTD NAVIGATIONAL CRANIAL INTRADURAL FOR LASER ABLATION (Left Head) STEREOTACTIC LASER ABLATION (N/A Head) Diagnosis: Cavernous malformation (Cavernous malformation) Surgeons: Chase Mackenzie MD Responsible Provider: Elsie Miguel MD Anesthesia Type: general ASA Status: 3 All Anesthesia Providers: Anesthesiologist: Elsie Miguel MD COMPRESSED GAS PLANT WORKER: Rudolph Miguel CRNA Vitals Value Taken Time BP 143/86 01/09/21 1615 Temp 36.6 ??C (97.9 ??F) 01/09/21 1501 Pulse 84 01/09/21 1628 Resp 14 01/09/21 1628 SpO2 98 % 01/09/21 1628 Pain Level 8 01/09/21 1619 Vitals shown include unvalidated device data. Patient Location: PACU/[facility] Level of Consciousness: Conscious but Sleepy Pain Management: Satisfactory Analgesia PONV: None Cardiovascular Status: At Baseline and Hemodynamically Stable Respiratory Status: At Baseline and Room Air Postoperative Fluid Status: Intravascular EUvolemia Possible Anesthetic Complications: NONE apparent at time of evaluation Final Primary Anesthesia Type: General (The anesthetic type performed was the same as planned.) Comments: Elsie Miguel MD * Anesthesia Preprocedure Evaluation - Elsie Miguel MD - 01/06/2021 4:09 PM EST Images from the original note were not included. Pre-Anesthesia Evaluation for: Kimberli Bales a 35 y.o. female. Procedure(s): @CRANI-SURG. FOR AVM,SUPRATENTORIAL, SIMPLE (WRVU 32.55) STEREOTACTIC COMPUTER-ASSTD NAVIGATIONAL CRANIAL INTRADURAL FOR LASER ABLATION STEREOTACTIC LASER ABLATION Patient Active Problem List Diagnosis ??? Cavernous malformation ??? Recurrent syncope ??? Chronic nasal congestion ??? Mood changes ??? Glaucoma ??? Altered mental status ??? Complicated migraine ??? Class 3 severe obesity due to excess calories with serious comorbidity and body mass index (BMI) of 50.0 to 59.9 in adult ??? Obstructive sleep apnea Did not tolerate CPAP ??? Hypertension ??? Hemicrania continua ??? Anxiety ??? Idiopathic intracranial hypertension ??? Neurological deficit present ??? Menorrhagia ??? Exotropia Long-standing, s/p strabismus surgery XT OD but can alternate, no diplopia Past Medical History: Diagnosis Date ??? Abnormal cervical Papanicolaou smear 09/09/2018 ??? Allergy ??? Anxiety ??? Diverticulosis of colon 09/09/2018 ??? Dysplasia of cervix 07/17/2006 ??? Dysuria 07/17/2006 episodes of dysuria and frequency but all negative cultures. If sx develop check Micro, COTTAGE SUPERVISOR or stone. ??? Environmental and seasonal allergies [...] JEFF performed by Genevieve Walsh MD at [facility] ??? PRO STABISMUS SURG,TWO HORIZ MUSCLE Right 02/01/2014 STRABISMUS SURGERY, TWO HORIZONTAL MUSCLES performed by Genevieve Walsh MD at [facility] ??? PRO STRABISMUS SURG,PLACE ADJUST SUTURE Right 12/31/2013 STRABISMUS SURGERY, PLACEMENT OF ADJUSTABLE SUTURES IN CONJUNCTION W/ ANOTHER SURGERY performed by Genevieve Walsh MD at [facility] ??? PRO STRABISMUS SURG,SCAR EXTRAOCUL MUSC Right 02/01/2014 STRABISMUS SURGERY WITH SCARRING OF EXTRAOCULAR MUSCLES IN CONJUNCTION W/ ANOTHER SURGERY performedby Genevieve Walsh MD at [facility] ??? SINUS SURGERY ??? STRABISMUS SURGERY ??? TUBAL LIGATION Bilateral 04/24/2011 [facility]; Sherrell Schmidt MD ??? WISDOM TOOTH EXTRACTION N/A 07/01/2002 [facility]; AILEEN RIVERA DMD Social History Tobacco Use ??? Smoking status: Former Smoker Packs/day: 0.25 Years: 2.00 Pack years: 0.50 Types: Cigarettes Quit date: 10/17/2017 Years since quittin.2 ??? Smokeless tobacco: Never Used Substance Use Topics ??? Alcohol use: Yes Comment: Occasionally Social History Substance and Sexual Activity Drug Use No Allergies Allergen Reactions ??? Oxycodone-Acetaminophen Shortness Of Breath ??? Red Dye Other (See Comments) Stops heart Medications: MAR and/or home medications have been reviewed. Physical Exam: Preprocedure Vitals Current as of 01/06/21 1609 No BP, pulse, respiration, SpO2, or temperature recorded. Height: Weight: BMI: IBW: Airway Assessment: Mallampati: I TM distance: >3 FB Neck ROM: full Cardiovascular Assessment: Rhythm: regular Rate: normal Pulmonary Assessment: breath sounds clear to auscultation Dental Assessment: Misc Assessment: Last Filed Perioperative Cognitive Screening None Anesthesia Plan: ASA 3 general, with a(n) intravenous induction Patient is a 35 year old female who presents for craniectomy for cavernous malformation. PMH notable for BMI 45, HTN Has tolerated anesthesia previously with Unique size 4 LMA. ECG NSR Plan: MELA arterial line Roger Spears MD Anesthesiology PGY3 Region - Intracranial (vascular) Informed Consent: Anesthetic plan and risks discussed with patient. Plan discussed with resident. Anesthesia Screening documented in this encounter Plan of Treatment [...] MAR Action Action Date Dose Rate Site albuteroL 90 mcg/actuation inhaler Inhalation, PRN, Starting on Sat01/09/21 at 1448, Until Sat01/09/21 at 1517, Anesthesia Intra-op, Routine Given 01/09/2021 2:39 PM EST 6 puffs ceFAZolin (Ancef) 1 g in dextrose 5% 50 mL infusion Intravenous, PRN, Starting on Sat01/09/21 at 0854, Until Sat01/09/21 at 1515, Administer over 30 Minutes, Anesthesia Intra-op Given 01/09/2021 12:54 PM EST 3 g Given 01/09/2021 8:54 AM EST 3 g dexamethasone (Decadron) injection Intravenous, PRN, Starting on Sat01/09/21 at 0848, Until Sat01/09/21 at 1515, Anesthesia Intra-op, Routine Given 01/09/2021 8:48 AM EST 8 mg dexmedetomidine (Precedex) (4 mcg/mL) bolus injection (Anesthsia) Intravenous, PRN, Starting on Sat01/09/21 at 0907, Until Sat01/09/21 at 1515, Anesthesia Intra-op, Routine Given 01/09/2021 1:39 PM EST 8 mcg Given 01/09/2021 12:57 PM EST 4 mcg Given 01/09/2021 11:08 AM EST 8 mcg fentaNYL (pf) (50 mcg/mL) multi-dose injection Intravenous, PRN, Starting on Sat01/09/21 at 0749, Until Sat01/09/21 at 1515, Anesthesia Intra-op, Routine Given 01/09/2021 7:58 AM EST 100 mcg Given 01/09/2021 7:53 AM EST 50 mcg Given 01/09/2021 7:49 AM EST 50 mcg HYDROmorphone (Dilaudid) (2 mg/mL) multi-dose injection solution Intravenous, PRN, Starting on Sat01/09/21 at 0900, Until Sat01/09/21 at 1515, Anesthesia Intra-op, Routine Given 01/09/2021 12:57 PM EST 0.5 mg Given 01/09/2021 11:03 AM EST 0.5 mg Given 01/09/2021 9:00 AM EST 0.5 mg lactated ringers infusion Intravenous, CONTINUOUS PRN, Starting on Sat01/09/21 at 0739, Until Sat01/09/21 at 1515, Anesthesia Intra-op New Bag 01/09/2021 7:39 AM EST lidocaine (pf) (Xylocaine) (20 mg/mL) 2% injection syringe Intravenous, PRN, Starting on Sat01/09/21 at 0758, Until Sat01/09/21 at 1515, Anesthesia Intra-op, Routine Given 01/09/2021 7:58 AM EST 100 mg midazolam (pf) (Versed) (1 mg/mL) multi-dose injection Intravenous, PRN, Starting on Sat01/09/21 at 1107, Until Sat01/09/21 at 1515, Anesthesia Intra-op, Routine Given 01/09/2021 7:48 AM EST 2 mg ondansetron (pf) (Zofran) (2 mg/mL) injection Intravenous, PRN, Starting on Sat01/09/21 at 1205, Until Sat01/09/21 at 1515, Anesthesia Intra-op, Routine Given 01/09/2021 12:58 PM EST 4 mg Given 01/09/2021 12:05 PM EST 4 mg PHENYLephrine in NS (PF) (JULIAN-SYNEPHRINE) 0.8 mg/10 mL (80 mcg/mL) multi-dose injection Syrg Intravenous, PRN, Starting on Sat01/09/21 at 0758, Until Sat01/09/21 at 1515, Anesthesia Intra-op, Routine Given 01/09/2021 7:58 AM EST 80 mcg propofoL (Diprivan) 10 mg/mL bolus injection (Anesthesia) Intravenous, PRN, Starting on Sat01/09/21 at 0758, Until Sat01/09/21 at 1515, Anesthesia Intra-op Given 01/09/2021 12:05 PM EST 50 mg Given 01/09/2021 11:10 AM EST 50 mg Given 01/09/2021 8:03 AM EST 50 mg rocuronium (Zemuron) (10 mg/mL) multi-dose injection Intravenous, PRN, Starting on Sat01/09/21 at 0758, Until Sat01/09/21 at 1515, Anesthesia Intra-op, Routine Given 01/09/2021 1:22 PM EST 10 mg Given 01/09/2021 12:57 PM EST 10 mg Given 01/09/2021 12:01 PM EST 20 mg sodium chloride 0.9% infusion 1,000 mL, at 100 mL/hr, Intravenous, CONTINUOUS, Starting on Sat01/09/21 at 0630, Until Sat01/09/21 at 1626, Day of Surgery (Day of Procedure) New Bag 01/09/2021 10:33 AM EST sugammadex (Bridion) 100 mg/mL injection Intravenous, PRN, Starting on Sat01/09/21 at 1437, Until Sat01/09/21 at 1516, Anesthesia Intra-op, Routine Given 01/09/2021 2:37 PM EST 200 mg documented in this encounter Care Teams Clinical Laboratory Technician Relationship Specialty Start Date End Date Radha Villagran, RECREATION WORKER [address] [place] [address] PCP - General Family Medicine 01/22/20 06/21/21 documented as of this encounter
--- OUTSIDE RECORDS SUMMARY | 2024-01-13 18:55 | XMS_ITS | Encounter Summary ---
Author Organization [facility] Address [facility] [place] [address] Care Team Providers Care Biomedical Equipment Tech Name Role Phone VillagranRadha diaz Palma SALAS Primary Care Provider Reason for Visit * Reason Onset Date Comments TeleHealth 11/22/2020 Encounter Details Date Type Department Care Team (Late st Contact Info) Description 11/22/2020 [place] [address] Chase Mackenzie MD [facility] [place] [address] TeleHealth Social History Tobacco Use Types Packs/Day [...] Telephone Encounter - Eusebia Salinas RN - 11/22/2020 1:43 PM EDT Spoke to this patient??by phone to review??their??medications and allergies prior to their??upcoming tele-appointment with the Neurosurgery??provider. ??Medications and allergies reviewed, verified and updated [...] on filedocumented in this encounter Care Teams Biomedical Equipment Tech Relationship Specialty Start Date End Date Radha Villagran, UROLOGY PHYSICIAN [address] [place] [address] PCP - General Family Medicine 01/22/20 06/21/21 documented as of this encounter
--- OUTSIDE RECORDS SUMMARY | 2024-01-13 18:55 | XMS_ITS | Encounter Summary ---
Author Organization [facility] Address [facility] [place] [address] Care Team Providers Care Oracle Brm Developer Name Role Phone Amada Carson MD Primary Care Provider [phone] Reason for Referral * Consultation (Routine) - Closed Specialty Diagnoses / Procedures Referred By Stacy harper Referred To Contact Primary Care Diagnoses Mood changes Radha Villagran APRN [address] [place] [address] Myke Reyez, [facility] Referral ID Status Reason Start Date Expiration Date V isits Requested Visits Authorized [id number] Closed Specialty Service Requested 01/06/2020 01/05/2021 1 1 Encounter Details Date Type Department Care Team (Late st Contact Info) Description 01/05/2020 11:30 AM EST Office Visit Primary Care at [facility] [address] [place] [address] Radha Villagran APRN [address] [facility] [place] [place] [address] Mood changes; Chronic nasal congestion Social History Tobacco Use Types Packs/Day Years [...] Sign Reading Time Taken Comments Blood Pressure 140/84 01/05/2020 11:49 AM EST Pulse 91 01/05/2020 11:49 AM EST Temperature 36.2 ??C (97.2 ??F) 01/05/2020 11:[address] Respiratory Rate 14 01/05/2020 11:49 AM EST Oxygen Saturation 97% 01/05/2020 11:49 AM EST Inhaled Oxygen Concentration - - Weight - - Height 168.3 cm (5' 6.25) 01/05/2020 11:[address] Body Mass Index - - documented in this encounter Progress Notes * Radha Villagran, VICE PRESIDENT OF NEWS - 01/05/2020 11:30 AM EST Subjective: HPI: Kimberli Bales is a 34 y.o. female presenting to the [facility] HPI Patient presents today for a discussion about medication that I am having side effects from Risperidone - dropping things, no eye hand coordination, trouble with eating getting things to my mouth, I also have a whooshing sound in my ears all the time, and weight gain Patient states that she did a tele health with Dr. Carson on 12/21/2019 for sinus pain, she states she is still having it today one nostril is congested, running, no cough, no fever Patient has a history of sinus infections. Patient was not sent for COVID-19 testing. 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-instructed to f/u with Neurology at [facility] clinic ER visit 10/10 for MGCARRY ER visit with hospital admit 10/11-eval of MCGARRY, changes in level of consciousness with [facility] Neuro office visit 10/15-urgent referral to epilepsy clinic, behavioral health 10/16-ER visit for complicated migraine, head injury-they reiterated referral to General Neurology 10/18-PCP visit for stress/migraines/syncope 10/22-Neuro epilepsy program eval-advised that Emgality was likely causing side effects-advised to stop the medication, and recommended CBT for psychogenic non- epileptic events if they continued Psychiatry eval in ER 10/26-dissociative episodes-strange behavior-unsure if this was r/t very early onset psychosis-started on Thorazine for tx of dissociative sx. 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 Coleman and psychiatry Neuro referred to behavioral health on 11/02 Neuro states she was feeling unwell upon missing a dose of Risperdal-resumed and she felt better-recommend continuing Risperdal per general Neuro on 11/11 Risperidal initially prescribed by Neurology, Dr. Timur Coleman on 11/08-thought she was having acute dissociative episodes Dropping things, gaining weight which she attributes to the risperidone Seeing a therapist weekly (Kaylee Horowitz)-established with her 3 years ago, has never needed medication prescribed by psychiatrist Taking Celexa x6 years for management of anxiety States she is lacking hand-eye coordination Diagnosed with glaucoma Chronic MCGARRY disorder Starting with a new Neurologist in [facility] 02/20 Indomethacin helps with MCGARRY ROS: Review of Systems Objective: VS: BP 140/84 Pulse 91 Temp 36.2 ??C (97.2 ??F) Resp 14 Ht 168.3 cm (5' 6.25) LMP 01/18/2014 SpO2 97% BMI 49.48 kg/m?? Physical Exam Vitals signs reviewed. Constitutional: Appearance: Normal appearance. She is morbidly obese. HENT: Head: Normocephalic and atraumatic. Right Ear: Tympanic membrane, ear canal and external ear normal. Left Ear: Tympanic membrane, ear canal and external ear normal. Nose: Congestion and rhinorrhea present. Rhinorrhea is purulent. Right Sinus: No maxillary sinus tenderness or frontal sinus tenderness. Left Sinus: No maxillary sinus tenderness or frontal sinus tenderness. Mouth/Throat: Lips: [place]. Mouth: Mucous membranes are moist. Pharynx: Oropharynx is clear. Uvula midline. Eyes: General: Lids are normal. Conjunctiva/sclera: Conjunctivae normal. Neck: Musculoskeletal: Normal range of motion. Cardiovascular: Rate and Rhythm: Normal rate and regular rhythm. Pulses: Normal pulses. Heart sounds: Normal heart sounds. Pulmonary: Effort: Pulmonary effort is normal. Breath sounds: Normal breath sounds. Lymphadenopathy: Cervical: No cervical adenopathy. Skin: General: Skin is warm. Capillary Refill: Capillary refill takes less than 2 seconds. Neurological: General: No focal deficit present. Mental Status: She is alert and oriented to person, place, and time. Psychiatric: Attention and Perception: Attention normal. Mood and Affect: Mood normal. Speech: Speech normal. Behavior: Behavior normal. Behavior is cooperative. Thought Content: Thought content normal. Cognition and Memory: Cognition normal. Judgment: Judgment normal. Assessment and Plan: Diagnoses and all orders for this visit: Mood changes - Referral to Behavior Health Clinician (Primary Care Only) Chronic nasal congestion - triamcinolone (NASACORT or NASACORT OTC) 55 mcg Aerosol, [place]; 2 sprays by Nasal route daily. Patient with mood issues for 3 months with multiple ER visits and hospital stays. Her psychiatric notes do not lead to formal diagnosis of clear etiology of her symptoms. She was given referral to psychiatry, but this was closed once they had difficulty contacting patient. Discussed with PCP, Dr. Amada Carson. Discussed with therapist, Kaylee Horowitz-thinks she has mood stability issues, has a poor method of dealing with stress and gets disregulated. She states she has had consistently very high functioning her whole life, but has experienced toxic relationshipswith family- cruel family dynamic-felt abandoned. She tells me she has a very loving/supportive . Patient is the glue in the family with 2 dtrs, one with medical issues. She states she would recommend a comprehensive view of these developments. She has been evaluated by General Neurology as well as Neurology's headache clinic. Patient reports her moods are stable but she is experiencing side effects from the Risperidone and would like to wean off of this medication. I have discussed with patient that I think she would be best served upon further assessment by psychiatry to discuss diagnosis and management of this type of medication. I hesitate to discontinue this medication without having psychiatry to help manage her if her sx recurred. She states she suffered from trauma during the [facility] hospitalization and refuses to return there, but would be open to seeing a psychiatrist elsewhere. She will continue with therapy with Kaylee Horowitz. Will ask [facility] to help coordinate care with psychiatry. I have spent >60 minutes in this patient encounter, more than 50% devoted to counseling and coordinating care. There are no Patient Instructions on file for this visit. FOLLOWUP: Return in about 4 weeks (around 02/02/2020) for In Person. documented in this encounter Plan of Treatment Scheduled Referrals Name Type Priority Associated Diagnoses Orde r Schedule Referral to Behavior Health Clinician (Primary Care Only) Outpatient Referral Routine Mood changes Ordered: 01/06/2020 documented as of this encounter Goals Goal [...] as of this encounter Visit Diagnoses Diagnosis Mood changes Unspecified episodic mood disorder Chronic nasal congestion Other diseases of nasal cavity and sinuses documented in this encounter Care Teams Oracle Brm Developer Relationship Specialty Start Date End Date Amada Carson MD [address] [place] [address] PCP - General Family Medicine 08/28/18 01/21/20 documented as of this encounter
--- OUTSIDE RECORDS SUMMARY | 2024-01-13 18:55 | XMS_ITS | Encounter Summary ---
Author Organization [facility] [place] [address] Care Team Providers Care Subsea Engineer Name Role Phone Radha Villagran JOSUE Primary Care Provider Encounter Details Date Type Department Care Team (Late st Contact Info) Description 10/11/2020 12:15 PM EDT Ancillary Procedure Radiology Library at [facility] [place] [id number] Chase Mackenzie MD [facility] [place] [address] Social History Tobacco Use Types Packs/Day Years [...] FILM LIBRARY STORAGE ONLY CT HEAD Routine 10/11/2020 12:12 PM EDT documented in this encounter Results * Film Library- Storage Only CT Head (10/11/2020 12:12 PM EDT) Narrative [facility] - 10/11/2020 12:12 PM EDT This exam is auto-finalizing. It's purpose is for storage only. Chase Mackenzie MD IMG FILM LIBRARY ORD ERABLES [place], [place] documented in this encounter Visit Diagnoses Not on filedocumented in this encounter Care Teams Subsea Engineer Relationship Specialty Start Date End Date Radha Villagran, DINING ROOM HELPER [address] [place] [address] PCP - General Family Medicine 01/22/20 06/21/21 documented as of this encounter
--- OUTSIDE RECORDS SUMMARY | 2024-01-13 18:55 | XMS_ITS | Encounter Summary ---
Author Organization [facility] Address [facility] [place] [address] Care Team Providers Care Crm Solution Architect Name Role Phone Amada Carson MD Primary Care Provider [phone] Reason for Visit * Reason Comments Medication Management Encounter Details Date Type Department Care Team (Late st Contact Info) Description 11/02/2019 Specialty [place] [phone] Kaity Turcios, [facility] Social History Tobacco Use Types Packs/Day Years [...] as of this encounter Progress Notes * Kaity Turcios [facility] - 11/02/2019 4:01 PM EDT Clinical Management Plan: Transfer of Care/Discharge Specialty Services Specialty Pharmacy Consultation; Kaity Turcios [facility] Comprehensive Medication Management (CMM) Kimberli Bales [address] [facility] [address] Telephone Information: Work Phone Not on file. Is the patient transferring services to a different Specialty Pharmacy or discontinuing the medication? Discontinuing medication Medication: Emgality 120mg/mL SOAJ Inject the contents of 1 pen subQ every 30 days. Reason for discontinuation or transfer: not working for patient Approximate date of discontinuation or transfer: 10/02/19 Patient's response to therapy: not adequate Summary of services provided by D- Specialty: New start, MIDAS, refill reminders, automatic refill, mail services Summary of on-going needs: follow up with provider for next step in therapy Referral for additional services (if applicable): n/a Is patient aware of referral? no Instructions provided to patient about discharge/transfer: no Provider aware of discontinuation or transfer: Yes Patient understands no changes to current drug regimen were made at the appointment and that [facility] (summary located at top of note) for provider review and follow up. Kaity Turcios RPH 11/02/19 4:02 PM documented in this encounter Plan of Treatment [...] on filedocumented in this encounter Care Teams Crm Solution Architect Relationship Specialty Start Date End Date Amada Carson MD [address] [place] [address] PCP - General Family Medicine 08/28/18 01/21/20 documented as of this encounter
--- OUTSIDE RECORDS SUMMARY | 2024-01-13 18:55 | XMS_ITS | Encounter Summary ---
Author Organization [facility] [address] Care Team Providers Care End Stapler Name Role Phone VillagranRadha diaz Palma SALAS Primary Care Provider Reason for Referral * Diagnostic Test (Routine) - Closed Specialty Diagnoses / Procedures Referred By Contac t Referred To Contact Radiology Diagnoses Cerebral cavernoma Procedures CT Head wo Contrast (Generic) Juan Manuel Sherman MD [facility] [place] [address] [facility] [place] [address] Referral ID Status Reason Start Date Expiration Date V isits Requested Visits Authorized [id number] Closed Specialty Service Requested 07/28/2020 01/24/2021 1 1 Encounter Details Date Type Department Care Team (Late st Contact Info) Description 07/03/2020 [place] [address] Juan Manuel Sherman MD [facility] [place] [address] Social History Tobacco Use Types Packs/Day Years [...] encounter Miscellaneous Notes * Telephone Encounter - Juan Manuel Shermna MD - 07/03/2020 7:48 PM EDT [facility] Neurosurgery Telephone Consult Note Date: 07/03/20 Patient: Kimberli Bales : 1985 Please note: the information in this note was directly obtained via the calling provider. Facility: [facility] Patient status: ED Provider: Medardo Velez MD Kimberli Bales is a 34 y.o. female not on any antiplatelets/anticoagulants with PMH migraines, pseudoseizures, pseudotumor, as well as known small left frontal cavernoma+DVA not previously followed by a neurosurgeon who presented to OSH due to dizziness/?seizure in the context of a neuro intactexam found to have stable appearing left frontal cavernoma (about 1cm in size) compared to last imaging (CTH and MRI) which was 4 days ago when she presented to same OSH due to sinusiti, although it is worth nothing the cavernoma slightly enlarged compared to 09/2019. Overall, acutely stable small cavernoma with no mass effect and neuro intact exam. Appropriate for neurology eval given concern for?seizures. Outpatient follow up for cavernoma, all questions answered to OSH provider satisfaction. Plan/Recs: -No acute neurosurgical intervention indicated -Follow up with Dr. Mackenzie in 4-6 wks with repeat CTH for cavernoma -Neurology eval for ?seizures Discussed with Dr. Mackenzie. The provider was advised to place a referral (fax number [phone]) to our neurosurgery clinic and that our office will contact the patient to schedule an appointment. The provider was also advised to give the patient our office number [phone] should we be unable to reach the patient. Patient contact info: [phone] Thank you for the opportunity to participate in the care of this patient. Juan Manuel Sherman MD, [facility] Neurosurgery 07/03/2020 7:49 PM documented in this encounter Plan of [...] documented as of this encounter Results * CT Head wo [...] who have questions please contact the health wound care coordinator that requested your imaging first. [...] patients who have questions please contactthe health wound care coordinator that requested your imaging first. 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
--- OUTSIDE RECORDS SUMMARY | 2024-01-13 18:55 | XMS_ITS | Encounter Summary ---
Author Organization [facility] Address [facility] [place] [address] Care Team Providers Care Golf Course Ranger Name Role Phone Amada Carson MD Primary Care Provider [phone] Reason for Referral * Consultation (Routine) - Closed Specialty Diagnoses / Procedures Referred By Contac t Referred To Contact Neurology Diagnoses Migraine with status migrainosus, not intractable, unspecified migraine type Amada Carson MD [address] [place] [address] [address] Referral ID Status Reason Start Date Expiration Date V isits Requested Visits Authorized [id number] Closed Consult, Test & Treat 11/23/2019 05/21/2020 12 12 Encounter Details Date Type Department Care Team (Late st Contact Info) Description 11/19/2019 Telephone Primary Care at [facility] [address] [address] Amada Carson MD [address] [facility] [place] [place] [address] Social History Tobacco Use Types Packs/Day Years [...] encounter Miscellaneous Notes * Telephone Encounter - Ade Troy - 11/19/2019 1:32 PM EDT Amado AmadaKimberli would like to transfer her neurology care to [facility]. documented in this encounter Plan of Treatment Scheduled Referrals Name Type Priority Associated Diagnoses Orde r Schedule Referral to Neurology Outpatient Referral Routine Migraine with status migrainosus, not intractable, unspecified migraine type Ordered: 11/23/2019 documented as of this encounter Goals Goal [...] as of this encounter Visit Diagnoses Diagnosis Migraine with status migrainosus, not intractable, unspecified migraine type documented in this encounter Care Teams Golf Course Ranger Relationship Specialty Start Date End Date Amada Carson MD [address] [place] [address] PCP - General Family Medicine 08/28/18 01/21/20 documented as of this encounter
--- OUTSIDE RECORDS SUMMARY | 2024-01-13 18:55 | XMS_ITS | Encounter Summary ---
Author Organization [facility] [place] [address] Care Team Providers Care Curtains And Draperies Salesperson Name Role Phone VillagranRadha diaz JOSUE Primary Care Provider [phone] Encounter Details Date Type Department Care Team (Late st Contact Info) Description 11/16/2020 10:50 PM EDT Ancillary Procedure Radiology Library at [facility] [place] [place] [id number] Chase Mackenzie MD [facility] [place] [address] Social History Tobacco Use Types Packs/Day Years [...] FILM LIBRARY STORAGE ONLY MR HEAD Routine 11/16/2020 10:46 PM EDT documented in this encounter Results * Film Library- Storage Only MR Head (11/16/2020 10:46 PM EDT) Narrative [facility] - 11/16/2020 10:46 PM EDT This exam is auto-finalizing. It's purpose is for storage only. Chase Mackenzie MD IMG FILM LIBRARY ORD ERABLES [place], [place] documented in this encounter Visit Diagnoses Not on filedocumented in this encounter Care Teams Curtains And Draperies Salesperson Relationship Specialty Start Date End Date Radha Villagran, NOVELTY CHAIN MAKER [address] [place] [address] PCP - General Family Medicine 01/22/20 06/21/21 documented as of this encounter
--- OUTSIDE RECORDS SUMMARY | 2024-01-13 18:56 | XMS_ITS | Encounter Summary ---
Author Organization [facility] [place] [address] Care Team Providers Care Hand Plate Stacker Name Role Phone Amada Carson MD Primary Care Provider [phone] Reason for Visit * Auth/Cert Specialty Diagnoses / Procedures Referred By Stacy harper Referred To Contact Diagnoses Syncope Severe headache Hemicrania continua Syncope, unspecified syncope type Procedures ER OBSVO Referral ID Status Reason Start Date Expiration Date Visits Re quested Visits Authorized [id number] 1 1 Encounter Details Date Type Department Care Team (Late st Contact Info) Description 10/12/2019 3:45 PM EDT Ancillary Procedure Radiology Xray at [facility] [address] [facility] [place] [id number] Social History Tobacco Use Types Packs/Day Years [...] Procedure Name Priority Date/Time Associated Diagnosis Comments XR FLUORO NO RAD <1HR - RADIOLOGY USE STAT 10/12/2019 4:34 PM EDT documented in this encounter Results * XR Fluoro <1Hr - Radiology Use (10/12/2019 4:34 PM EDT) Anatomical Region Laterality Modality N/A Radio Fluoroscop y Impressions 10/12/2019 4:52 PM EDT Technically successful fluoroscopically guided lumbar puncture with an opening pressure of 4 cm of water. 2 cc of CSF was collected Thank you for letting us participate in the care of this patient. For questions regarding this report, please contact the number below. ? Narrative 10/12/2019 4:52 PM EDT EXAMINATION: XR FLUORO <1HR - RADIOLOGY USE CLINICAL HISTORY: Altered level of consciousness TECHNIQUE: C-arm fluoroscopy used for intraoperative guidance. Fluoroscopy time: 16 seconds FINDINGS: The patient was informed of the risks and benefits of the procedure and written and informed consent was obtained. The patient was placed prone on the fluoroscopic table and the L2-L3 approach was marked under fluoroscopic visualization. The patient was prepped and draped using sterile fashion. 1% lidocaine was used for local anesthesia. A 6 inch 22-gauge spinal needle was advanced under intermittent fluoroscopic guidance using a paramedian L2-L3 approach. There was return of clear CSF. Opening pressure was 4 cm of water. 2 cc of CSF was collected for lab work. The patient elected to proceed no further. Stylet was replaced before the needle was withdrawn. No immediate complications. Procedure Note Harjinder Dennis MD - 10/12/2019 EXAMINATION: XR FLUORO <1HR - RADIOLOGY USE CLINICAL HISTORY: Altered level of consciousness TECHNIQUE: C-arm fluoroscopy used for intraoperative guidance. Fluoroscopy time: 16 seconds FINDINGS: The patient was informed of the risks and benefits of the procedure andwritten and informed consent was obtained. The patient was placed prone on thefluoroscopic table and the L2-L3 approach was marked under fluoroscopic visualization.The patient was prepped and draped using sterile fashion. 1% lidocaine wasused for local anesthesia. A 6 inch 22-gauge spinal needle was advanced under intermittent fluoroscopic guidance using a paramedian L2-L3 approach.There was return of clear CSF. Opening pressure was 4 cm of water. 2 cc of CSFwas collected for lab work. The patient elected to proceed no further. Stylet was replaced before the needle was withdrawn. No immediatecomplications. IMPRESSION Technically successful fluoroscopically guided lumbar puncture with anopening pressure of 4 cm of water. 2 cc of CSF was collected Thank you for letting us participate in the care of this patient. Forquestions regarding this report, please contact the number below. Phani Velázquez MD IMG FLUORO ORDERABLE S documented in this encounter Visit Diagnoses Not on filedocumented in this encounter Care Teams Hand Plate Stacker Relationship Specialty Start Date End Date Amada Carson MD [address] [place] [address] PCP - General Family Medicine 08/28/18 01/21/20 documented as of this encounter
--- OUTSIDE RECORDS SUMMARY | 2024-01-13 18:56 | XMS_ITS | Encounter Summary ---
Author Organization [facility] [place] [address] Care Team Providers Care Electrical And Instrumentation Manager Name Role Phone Amada Carson MD Primary Care Provider [phone] Reason for Visit * Reason Comments Loss of Consciousness * Auth/Cert Specialty Diagnoses / Procedures Referred By Stacy t Referred To Contact Diagnoses Syncope Severe headache Hemicrania continua Syncope, unspecified syncope type Procedures ER OBSVO Referral ID Status Reason Start Date Expiration Date Visits Re quested Visits Authorized [id number] 1 1 Encounter Details Date Type Department Care Team (Late st Contact Info) Description 10/12/2019 10:32 AM EDT - 10/15/2019 12:35 PM EDT Emergency Med Surg Unit at [address] [address] Phani Velázquez MD [facility] [place] [address] [place] [address] [place] [address] Syncope (Primary Dx); Syncope, unspecified syncope type; Severe headache; Hemicrania continua; Neurological deficit present Discharge Disposition: Home Social History Tobacco Use [...] Sign Reading Time Taken Comments Blood Pressure 131/79 10/15/2019 8:05 AM EDT Pulse 80 10/12/2019 8:00 PM EDT Temperature 36.9 ??C (98.4 ??F) 10/15/2019 7:59 AM ED T Respiratory Rate 17 10/15/2019 7:59 AM EDT Oxygen Saturation 95% 10/15/2019 7:59 AM EDT Inhaled Oxygen Concentration - - Weight 145.6 kg (320 lb 15.8 oz) 10/12/2019 8:55 PM EDT Height 167.6 cm (5' 5.98) 10/12/2019 8:55 PM ED T Body Mass Index 51.83 10/12/2019 8:55 PM EDT documented in this encounter Discharge Summaries * Rodney Estrada MD - 10/15/2019 12:03 PM EDT Nancy Trevino Discharge Summary Patient Name: Kimberli Ledesma Patient Age: 33 y.o. Language: Hungarian Race: White Ethnicity: Not nor Admit date: 10/12/2019 Discharge date and time: 10/15/19 Attending Physician: Rodney Etsrada MD Discharge Physician: Rodney Estrada Follow-up Recommendations for Providers: - ongoing titration of regimen for headache - follow up with neurology to discuss etiology of changes in level of consciousness with headache Inpatient Provider Contact Information: For questions regarding this document or issues relating to this hospitalization on the Medical Service, please contact your inpatient physician through the [facility] Disaster Or Damage Control Specialist . Issues afterhours and on weekends will be handled by the Hospitalist staff on-call. Discharge Diagnoses (Hospital Problems) and Secondary Diagnoses (Chronic Problems): Active Hospital Problems Diagnosis ??? Complicated migraine ??? Anxiety Resolved Hospital Problems Diagnosis Date Resolved ??? Syncope 10/15/2019 Active Non-Hospital Problems Diagnosis ??? AMS (altered mental status) ??? Class 3 severe obesity due to excess calories with serious comorbidity and body mass index (BMI) of 50.0 to 59.9 in adult ??? Obstructive sleep apnea ??? Hypertension ??? Hemicrania continua ??? Idiopathic intracranial hypertension ??? Neurological deficit present ??? Menorrhagia ??? Exotropia History of Presentation: 33-year-old female with a PMH of complex headache history who has been is followed at the headache clinic since she had an LP in 2012 that showed some borderline elevation in the opening CSF pressurein high normal range at 16 to 17 cm.??She was subsequently on Diamox and had an LP for severe headache in 2018 which showed an opening pressure of 4. 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 ? Her current headache started 10 days back and is a/w ongoing stammering and episodes of passing out(no visible injuries and pt says she has forgotten what happened before, during and after the episodes ). She has visited the [facility] ED 3 times over the last few days last being yesterday. ?She had an awake EEG in the emergency department at [facility] that was read as normal resultsreturned today. All her labs done so far are normal. She had an LP in our ED and her opening LP pressure is 4. ?? She is also on Indocin. ??She carries a diagnosis of hemicrania continua.??her usual headaches are in the front area but these episode is localized in the occipital area. Hospital Course: #complicated migraine: given patient's prior negative extensive work up for loss of consciousness and left sided weakness with headache, the most likely etiology of her symptoms was felt to be complicated migraine. There was a question as to whether or not these new symptoms were a side-effect fromEmgality, a monoclonal antibody she started recently to treat migraine. Her headaches were treated s uccessfully while she was in the hospital with NSAIDs and anti-histamines. She was evaluated by tele-psychiatry, who felt that conversion disorder was unlikely. She was discharged on indomethacin andhydroxyzine with plans to follow up with the headache clinic on the day after discharge. Her outpatient headache clinic was contacted during this hospitalization and agreed with current treatment regimen. Neurology referral was sent on discharge for further evaluation of neurologic symptoms that, according to prior workup, don't have a clear correlate on EEG or MRI brain. Vital Signs at Discharge: BP: 131/79, Heart Rate: 80, Temp: 36.9 ??C (98.4 ??F), Resp: 17, BMI (Calculated): 51.83 Height: 167.6 cm (5' 5.98) (10/12/192054) Weight: (!) 145.6 kg (320 lb 15.8 oz) (10/12/192054) Functional and Cognitive Status: At baseline Important Studies and Lab Data: Labs: Last 3 wbc, hgb, hct plt Recent Labs 10/12/19 1032 09/29/19 0318 09/28/19 1209 WBC 6.2 8.2 10.0* HGB 12.5 12.0 12.8 HCT 37.8 37.2 38.2 PLATELET 297 281 299 Last 3 Lytes Recent Labs 10/15/19 0653 10/12/19 1032 09/29/19 0318 NA 140 137 139 K 4.3 4.0 3.9 CL 104 104 102 CO2 27 24 26 BUN 10 11 11 CREATININE 0.66* 0.66* 0.60* Pending Studies and Lab Data: none Discharge to: home Updated Allergies/ADRs: Allergies Allergen Reactions ??? Oxycodone-Acetaminophen Shortness Of Breath ??? Red Dye Other (See Comments) Stops heart Immunizations Given this Hospitalization: Immunization History Administered Date(s) Administered ??? Influenza PF, Split 12/14/2016 ??? Influenza Vaccine PF, Quadrivalent 11/17/2017 ??? Influenza Vaccine PF, Seasonal, Injectible 12/14/2016, 11/18/2017 ??? MMR Vaccine, Live 04/24/2011 ??? Tdap Vaccine 03/28/2010, 11/30/2011 Discharge Medications: Your Medications New Medications Dose Details hydrOXYzine 25 mg Tab Commonly known as: Atarax Take 1 tablet by mouth 3 times daily (with meals). 25 mg Quantity: 90 tablet Refills: 12 prochlorperazine 10 mg Tab Commonly known as: Compazine Take 1 tablet by mouth every 6 hours as needed. 10 mg Quantity: 15 tablet Refills: 0 Continued medications, unchanged Dose Details citalopram 40 mg Tab Commonly known as: CeleXA Take 1 tablet by mouth once daily Quantity: 90 tablet Refills: 3 ELDERBERRY FRUIT ORAL Take 1 gummy by mouth as needed (Cold season only). 1 gummy Refills: 0 indomethacin 50 mg Cap Commonly known as: INDOCIN TAKE 1 CAPSULE BY MOUTH THREE TIMES DAILY WITH MEALS Quantity: 90 capsule Refills: 3 lisinopriL 20 mg Tab Commonly known as: Prinivil;Zestril Take 1 tablet by mouth daily. 20 mg Quantity: 90 tablet Refills: 3 LORazepam 1 mg Tab Commonly known as: Ativan Take 1 tablet by mouth every 6 hours as needed for Anxiety. 1 mg Quantity: 15 tablet Refills: 0 STOPPED Medications Emgality Pen 120 mg/mL Pnij Generic drug: galcanezumab-gnlm Smoking Status at Discharge: Social History Tobacco Use Smoking Status Former Smoker ??? Packs/day: 0.25 ??? Years: 2.00 ??? Pack years: 0.50 ??? Types: Cigarettes ??? Quit date: 10/17/2017 ??? Years since quittin.9 Smokeless Tobacco Never Used Instructions Given to Patient at Discharge: Patient Instructions Instruction after leaving the hospital Why you were hospitalized: You came into the hospital for loss of consciousness and left sided weakness with a headache. Your work up included a lumbar puncture and a CT head, both of which were normal. Given your recent normal test for seizures (EEG) the cause of your symptoms was thought to be a complicated migraine (a migraine that causes neurologic symptoms in addition to headache). Before discharge we spoke with Dr Desai in the headache clinic, who agreed with continuing indomethacin and hydroxyzine pending follow up with the headache clinic. Call your doctor or seek medical attention if you develop the following: Call your doctor or seek medical attention if you experience any alarming symptoms. This may include, but is not limited to, fever, chest pain, severe shortness of breath, nausea with vomiting, persistent decrease in your urinary output, severe pain, or any other concerning symptoms. Activity level: As tolerated. Diet: No new restrictions. Driving: Please do not drive if you feel lightheaded, dizzy, faint, or taking any opioids/narcotics(i.e oxycodone). It is advisable that you do not drive till you follow-up with your primary care physician. Shower/Bath: No new restrictions. Home Oxygen therapy: N/A Changes in Your Medications: New Medications: hydroxyzine. Compazine as needed Medication dose changes: none Stop these medications: Emgality Follow-Up Appointments Future Appointments Date Time Provider Department Center 11/12/2019 10:00 AM Ashwini Campuzano APRN [facility] Date and Time Provider and Specialty Location Need to be scheduled Amada Carson MD , PCP [address] [facility] / [place] [address] Your Inpatient Doctor(s) at [facility]: Rodney Estrada MD Your Primary Care Provider: Amada Carson MD [address] [facility] / [facility] [address] For questions regarding this document or issues relating to this hospitalization on the Medical Service, please contact your inpatient physician through the [facility] Disaster Or Damage Control Specialist . Issues afterhours and on weekends will be handled by the Hospitalist staff on-call. General Instructions None Future Appointments and Orders Future Appointments and Orders Future Appointments Provider Department Dept Phone 11/12/2019 10:00 AM Ashwini Campuzano APRN Neurology at [facility] Arrive at: Home [phone] Please visit us at: [email or web address] to view instructions for your upcoming Telehealth appointment Future Orders Complete By Expires Referral to Neurology [REF46 Custom] As directed Process Instructions: If no progress note charted, please enter Clinical details in comments. Scheduling Instructions: Questions: My question or request is: ongoing management of changes in level of consciousness and neurologic complaints with headache for which she has recently had a negative neurologic work up Discharge References/Attachments None documented in this encounter Discharge Instructions * Patient Instructions* Rodney Estrada MD - 10/14/2019 1:07 PM EDT Instruction after leaving the hospital Why you were hospitalized: You came into the hospital for loss of consciousness and left sided weakness with a headache. Your work up included a lumbar puncture and a CT head, both of which were normal. Given your recent normal test for seizures (EEG) the cause of your symptoms was thought to be a complicated migraine (a migraine that causes neurologic symptoms in addition to headache). Before discharge we spoke with Dr Desai in the headache clinic, who agreed with continuing indomethacin and hydroxyzine pending follow up with the headache clinic. Call your doctor or seek medical attention if you develop the following: Call your doctor or seek medical attention if you experience any alarming symptoms. This may include, but is not limited to, fever, chest pain, severe shortness of breath, nausea with vomiting, persistent decrease in your urinary output, severe pain, or any other concerning symptoms. Activity level: As tolerated. Diet: No new restrictions. Driving: Please do not drive if you feel lightheaded, dizzy, faint, or taking any opioids/narcotics(i.e oxycodone). It is advisable that you do not drive till you follow-up with your primary care physician. Shower/Bath: No new restrictions. Home Oxygen therapy: N/A Changes in Your Medications: New Medications: hydroxyzine. Compazine as needed Medication dose changes: none Stop these medications: Emgality Follow-Up Appointments Future Appointments Date Time Provider Department Center 11/12/2019 10:00 AM Ashwini Campuzano APRN [facility] Date and Time Provider and Specialty Location Need to be scheduled Amada Carson MD , PCP [address] / [place] [id number] Your Inpatient Doctor(s) at [facility]: Rodney Estrada MD Your Primary Care Provider: Amada Carson MD [address] [place], [place] [address]k / [facility] [address] For questions regarding this document or issues relating to this hospitalization on the Medical Service, please contact your inpatient physician through the [facility] Disaster Or Damage Control Specialist . Issues afterhours and on weekends will be handled by the Hospitalist staff on-call. documented in this encounter Medications at Time of Discharge Medication Sig Dispensed Refills Start Date End Date prochlorperazine (Compazine) 10 mg Tablet Take 1 tablet by mouth every 6 hours as needed. 15 tablet 10/15/2019 10/19/2019 indomethacin (INDOCIN) 50 mg Capsule TAKE 1 CAPSULE BY MOUTH THREE TIMES DAILY WITH MEALS 90 capsule 3 08/31/2019 10/19/2019 citalopram (CeleXA) 40 mg Tablet Take 1 tablet by mouth once daily 90 tablet 3 05/18/2019 11/12/2019 lisinopriL (Prinivil;Zestril) 20 mg TabletIndications:Essent ial hypertension Take 1 tablet by mouth daily. 90 tablet 3 03/30/2019 01/21/2020 documented as of this encounter Progress Notes * Erlinda Munguia RN - 10/15/2019 12:35 PM EDT Kimberli Ledesma discharged per provider order to home via . All IV???s removed. Dischargeinstructions reviewed with patient and . All questions or concerns answered at this time. Patient encouraged to call with any further questions or concerns. Copy of After Visit Summary given to patient at time of discharge. All personal belongings returned to patient, including prescription m edications. Patient assisted to personal vehicle via staff member and wheelchair. Erlinda Munguia RN, 10/15/2019 * Rodney Estrada MD - 10/15/2019 11:55 AM EDT Hospital Medicine - Attending Day of Discharge Documentation Discharge diagnosis Active Hospital Problems Diagnosis ??? Syncope Resolved Hospital Problems No resolved problems to display. Secondary Issues Active Non-Hospital Problems Diagnosis ??? AMS (altered mental status) ??? Class 3 severe obesity due to excess calories with serious comorbidity and body mass index (BMI) of 50.0 to 59.9 in adult ??? Obstructive sleep apnea ??? Hypertension ??? Hemicrania continua ??? Anxiety ??? Idiopathic intracranial hypertension ??? Neurological deficit present ??? Menorrhagia ??? Exotropia I have personally seen and examined the patient and they are ready for discharge. I spent >30 minutes (Day of Discharge Code 97878) involved in the final examination of the patient, discussion of the hospital stay, instructions for continuing care to all relevant caregivers, and preparation of discharge records, prescriptions and referral forms. Plans ? Discharge to home ? Follow-up scheduled with headache clinic ? Please see the Discharge Summary for complete details of any medication changes and additional plans. * Osmar Cason RN - 10/15/2019 7:23 AM EDT Pt was very anxious overnight; at 23:00 she sprung out of her bed and sat at the edge of the bed, saying that she was feeling very anxious and restless and could not sleep. When asked what was bothering her, she said 'I don't know, maybe staying in the hospital, lots of noise etc.' The second time at 01:00, again she came out of the bed and was hyperventilating was having a panic attack. I sat with her, reassured her and coached her deep breathing exercise. At some point, she just was staring at me and then rolled her eyes. I held her hand and did some deep breathing together. Then she settled. I asked her how did she cope when it happened at home. She denied any coping help from alcohol or other medication. She said her Opal helps her a lot. She also reported that it all began when she started having this severe posterior headaches quite often. * Rodney Estrada MD - 10/14/2019 4:52 PM EDT Hospital Medicine Attending Daily Progress Note Admit Date: 10/12/2019 Hospital Day 0 days Active Hospital Problems Diagnosis ??? Syncope Resolved Hospital Problems No resolved problems to display. PMH Active Non-Hospital Problems Diagnosis ??? AMS (altered mental status) ??? Class 3 severe obesity due to excess calories with serious comorbidity and body mass index (BMI) of 50.0 to 59.9 in adult ??? Obstructive sleep apnea ??? Hypertension ??? Hemicrania continua ??? Anxiety ??? Idiopathic intracranial hypertension ??? Neurological deficit present ??? Menorrhagia ??? Exotropia Inpatient Medications: Scheduled ??? indomethacin 50 mg Oral TID WC ??? hydrOXYzine 25 mg Oral TID WC ??? citalopram 40 mg Oral Daily ??? lisinopriL 20 mg Oral Daily ??? sodium chloride 0.9 % (flush) 3 mL Intravenous Q12H ANA Continuous infusions: PRN: prochlorperazine, sodium chloride 0.9 % (flush), sodium chloride 0.9 % (flush) Interval History: - this morning feels well with minimal headache. She denies nausea, belly pain. She reports persistent left sided heaviness - this afternoon with another episode of brief loss of consciousness that lasted only seconds associated with sudden onset headache. After treatment with ketorolac headache was greatly improvement and patient was awake and conversant ROS: A full 14-point review of systems was conducted and is negative except as noted above Physical Exam Vitals Range last 24 hrs Temperature Temp: [36.6 ??C (97.9 ??F)-36.9 ??C (98.4 ??F)] Heart Rate Heart Rate: -- Blood Pressure BP: (135-177)/(87-100) Respiratory Rate Resp: [16-18] SpO2 SpO2: [95 %-97 %] Intake/Output Summary (Last 24 hours) at 10/14/2019 1652 Last data filed at 10/14/2019 0735 Gross per 24 hour Intake 950 ml Output -- Net 950 ml Patient Vitals for the past 168 hrs: Weight 10/12/192054 (!) 145.6 kg (320 lb 15.8 oz) 10/12/19 1058 136.1 kg (300 lb) Body mass index is 51.83 kg/m??. GEN: obese woman, no acute distress, lying in bed HEENT: MMM CARDS: RRR, no murmur noted PULM: CTAB posterior lung ling ABD: soft, non-tender EXT: no LE edema SKIN: warm and dry PSYCH: psychomotor slowing NEURO CN II-XII intact 5/5 strength on the right, 4+/5 strength on the left Sensation to light touch intact over the arms and legs Opeask-gk-exmb intact on the right, impaired on the left Studies reviewed in eDH. Remarkable for the following: LABS: Last 3 wbc, hgb, hct plt Recent Labs 10/12/19 1032 09/29/19 0318 09/28/19 1209 WBC 6.2 8.2 10.0* HGB 12.5 12.0 12.8 HCT 37.8 37.2 38.2 PLATELET 297 281 299 Last 3 Lytes Recent Labs 10/12/19 1032 09/29/19 0318 09/28/19 1209 NA 137 139 136 K 4.0 3.9 4.2 CL 104 102 100 CO2 24 26 26 BUN 11 11 10 CREATININE 0.66* 0.60* 0.65* FSBG Trend Recent Labs 10/14/19 1325 10/13/19 0801 10/12/19 1052 POCGLU 98 150 147 MICRO: No results for input(s): URINECULTURE in the last 720 hours. Recent Labs 10/12/19 1537 GRAMSTAIN Cytocentrifuge Gram Stain performed No Neutrophils seen. No microorganisms seen. No results for input(s): BLOODCX in the last 720 hours. ECG: Recent Labs 10/12/19 1104 DIAGLINE Normal sinus rhythm Normal ECG When compared with ECG of 28-SEP-2019 12:07, No significant change was found Confirmed by Desiree Almonte ([id number]) on 10/12/2019 12:29:33 PM QTCCALC [id number] VASCULAR: Recent Labs 09/29/19 2350 VBTEXTRPT Department: Vascular Surgery Lab Patient: [id number] (KIMBERLI LEDESMA) CPT: 79346 ICD10: M79.604;M79.605;R29.818 Referring Physician: CHANA HERRERA Phone: Indications: Bilateral lower extremity pain (L>R), ? DVT ICD10 Diagnosis Code: R29.818 Findings: RIGHT: Patent common femoral vein and popliteal vein with spontaneous, respirophasic Doppler waveforms that respond normally to augmentation maneuvers. The common femoral vein, saphenofemoral junction, femoral vein through the thigh and popliteal vein are fully compressible. Posterior tibial and peroneal veins are patent but were not adequately visualized to exclude focal non-occlusive thrombus. LEFT: Patent common femoral vein and popliteal vein with spontaneous, respirophasic Doppler waveforms that respond normally to augmentation maneuvers. The common femoral vein, saphenofemoral junction, femoral vein through the thigh and popliteal vein are fully compressible. Posterior tibial and peroneal veins are patent but were not adequately visualized to exclude focal non-occlusive thrombus. Interpretation: RIGHT: No evidence of femoral-popliteal deep venous thrombosis. Cannot entirely exclude small, focal non-occlusive DVT in the calf due to suboptimal visualization. LEFT: No evidence of femoral-popliteal deep venous thrombosis. Cannot entirely exclude small, focal non-occlusive DVT in the calf due to suboptimal visualization. Comparison: No previous study in our vascular lab database for comparison. Comment: Consider follow-up exam if signs or symptoms suggestive of DVT persist or worsen. Electronically Signed by: BALWINDER HERNANDES on 2019-09-29 10:31:02 AM End of Report IMAGING: no new imaging Assessment: Ms Ledesma is a 33 year old woman with a history of chronic migraine and hemicrania continua followed at the headache clinic (03/11/19 office visit) on a monoclonal antibody for migrainemanagement; reported history of IIH without documented elevation in CSF pressure, HTN who presentedto [facility] for ongoing persistent headache and episode of loss of consciousness with left-sided weakness. Today with initial improvement in symptoms but worsening in the afternoon. Given her numerous recent admissions and ER visits I think it would be gil to ensure she is on an oral regimen that controls her headaches sufficiently to prevent further presentations Plan: #occipital headache with intermittent loss of consciousness and left sided weakness: recent extensive workup for this has included spot EEG with out evidence of seizure or seizure focus, MRI brain and angio that showed a lateral left frontal cavernous malformation that per neurology doesn't correlate with left sided-weakness, CSF evaluation 10/12/19 with normal cell count, chemistries, and openingpressure. Differential includes complicated/hemiplegic migraine, seizures that have not yet been caught on EEG, conversion disorder - restart home indomethacin, add hydroxyzine and PO compazine - will continue to contact outpatient headache specialists - tele-psychiatry today to help patient identify triggers, assess for conversion disorder - if ongoing episodes of loss of consciousness she will need to be transferred to a facility that is able to perform continuous EEG monitoring ?? #depression: home citalopram #HTN: home lisinopril AM labs: normal on admission, no need for routine lab tests IV access: PIV Tubes/Drains: none DVT PPX: hold for now, patient ambulatory CODE: full Anticipated Disposition: anticipate home 10/14 provided headaches are sufficiently controlled on current reimgen Team Pager( Coverage 10/09): #[phone] PCP: Amada Carson MD [phone] The patient is currently admitted to observation status to ensure current oral regimen is sufficient for headache control Rodney Estrada MD 10/14/2019 * Erlinda Munguia RN - 10/14/2019 1:27 PM EDT Patient was unconscious on bed, looked calm and vitals were taken and within normal limits, saturating well on room air, blood sugar checked and it was 98mg/dL. Informed charge nurse Ying Chatterjee RN and seen by Nurse Residential Care Officer Va GARCIA. Dr. Estrada (hospitalist) was informed. Clarified with Dr. Estrada if ativan can be given since here last was at 0540am today and he said it's ok to give * Mattie Palomares RD - 10/14/2019 10:33 AM EDT Nutritional follow up;patient is not receptive to guidance for weight loss at this time. She is consuming 50,75,100% of food. No further intervention for weight loss efforts is indicated at this time. Mattie Palomares RDN,LD * Maddie Vee RN - 10/13/2019 5:58 PM EDT Patient remains sad regarding being in the hospital.Remains weak mor on the left than the right, although using all extreme ties. No stuttering noted since 1600 for short sentences, only using a softvoice. * Maddie Vee RN - 10/13/2019 1:07 PM EDT Patient has been sleeping for approx 90 minutes. Breathing pattern is normal sats stable. Arouses to verbal and stimuli. was updated per patient request. Awaiting tele health psych consult. No further episodes of blacking out no noted weakness of any limbs. * Rodney Estrada MD - 10/13/2019 12:04 PM EDT Hospital Medicine Attending Daily Progress Note Admit Date: 10/12/2019 Hospital Day 0 days Active Hospital Problems Diagnosis ??? Syncope Resolved Hospital Problems No resolved problems to display. PMH Active Non-Hospital Problems Diagnosis ??? AMS (altered mental status) ??? Class 3 severe obesity due to excess calories with serious comorbidity and body mass index (BMI) of 50.0 to 59.9 in adult ??? Obstructive sleep apnea ??? Hypertension ??? Hemicrania continua ??? Anxiety ??? Idiopathic intracranial hypertension ??? Neurological deficit present ??? Menorrhagia ??? Exotropia Inpatient Medications: Scheduled ??? citalopram 40 mg Oral Daily ??? lisinopriL 20 mg Oral Daily ??? sodium chloride 0.9 % (flush) 3 mL Intravenous Q12H ANA Continuous infusions: PRN: sodium chloride 0.9 % (flush), LORazepam, sodium chloride 0.9 % (flush) Interval History: - this morning with brief episode of loss of consciousness and unresponsiveness. On nursing evaluation she was noted to be weaker on the left side than the right but somnolent and only intermittentlyfollowing commands. When I entered the room her vitals were normal, her blood sugar was 150, and she was somnolent but protecting her airway. A CT head stroke protocol was obtained. - on my evaluation later in the day she reported ongoing severe occipital headache, unchanged from the last few days. She reports ongoing left sided heaviness and subjective fogginess. She denies any fevers, chest pain, shortness of breath, belly pain ROS: A full 14-point review of systems was conducted and is negative except as noted above Physical Exam Vitals Range last 24 hrs Temperature Temp: [36.5 ??C (97.7 ??F)-36.9 ??C (98.4 ??F)] Heart Rate Heart Rate: [72-80] Blood Pressure BP: (116-152)/(60-98) Respiratory Rate Resp: [12-20] SpO2 SpO2: [95 %-97 %] Intake/Output Summary (Last 24 hours) at 10/13/2019 1204 Last data filed at 10/13/2019 0900 Gross per 24 hour Intake 710 ml Output -- Net 710 ml Patient Vitals for the past 168 hrs: Weight 10/12/192054 (!) 145.6 kg (320 lb 15.8 oz) 10/12/19 105 136.1 kg (300 lb) Body mass index is 51.83 kg/m??. GEN: obese woman, no acute distress, lying in bed HEENT: MMM CARDS: RRR, no murmur noted PULM: CTAB posterior lung ling ABD: soft, non-tender EXT: no LE edema SKIN: warm and dry PSYCH: intermittently tearful, psychomotor slowing NEURO Alert to person, place, year. When I ask her to recite the days of the week she is unable to do so and becomes tearful CN II-XII intact When testing for pronator drift she slowly lowers her left arm at the shoulder--there is no true pronator drift. 5/5 strength on the right, 4/5 strength on the left Sensation to light touch intact over the arms and legs [id number] intact on the right, impaired on the left Studies reviewed in eDH. Remarkable for the following: LABS: Last 3 wbc, hgb, hct plt Recent Labs 10/12/19 1032 09/29/19 0318 09/28/19 1209 WBC 6.2 8.2 10.0* HGB 12.5 12.0 12.8 HCT 37.8 37.2 38.2 PLATELET 297 281 299 Last 3 Lytes Recent Labs 10/12/19 1032 09/29/19 0318 09/28/19 1209 NA 137 139 136 K 4.0 3.9 4.2 CL 104 102 100 CO2 24 26 26 BUN 11 11 10 CREATININE 0.66* 0.60* 0.65* FSBG Trend Recent Labs 10/13/19 0801 10/12/19 1052 10/10/19 1721 POCGLU 150 147 108 MICRO: No results for input(s): URINECULTURE in the last 720 hours. Recent Labs 10/12/19 1537 GRAMSTAIN Cytocentrifuge Gram Stain performed No Neutrophils seen. No microorganisms seen. No results for input(s): BLOODCX in the last 720 hours. ECG: Recent Labs 10/12/19 1104 DIAGLINE Normal sinus rhythm Normal ECG When compared with ECG of 28-SEP-2019 12:07, No significant change was found Confirmed by Desiree Almonte ([email or web address]) on 10/12/2019 12:29:33 PM QTCCALC 418 VASCULAR: Recent Labs 09/29/19 2350 VBTEXTRPT Department: Vascular Surgery Lab Patient: [id number] (KIMBERLI LEDESMA) CPT: 29261 ICD10: M79.604;M79.605;R29.818 Referring Physician: CHANA HERRERA Phone: Indications: Bilateral lower extremity pain (L>R), ? DVT ICD10 Diagnosis Code: R29.818 Findings: RIGHT: Patent common femoral vein and popliteal vein with spontaneous, respirophasic Doppler waveforms that respond normally to augmentation maneuvers. The common femoral vein, saphenofemoral junction, femoral vein through the thigh and popliteal vein are fully compressible. Posterior tibial and peroneal veins are patent but were not adequately visualized to exclude focal non-occlusive thrombus. LEFT: Patent common femoral vein and popliteal vein with spontaneous, respirophasic Doppler waveforms that respond normally to augmentation maneuvers. The common femoral vein, saphenofemoral junction, femoral vein through the thigh and popliteal vein are fully compressible. Posterior tibial and peroneal veins are patent but were not adequately visualized to exclude focal non-occlusive thrombus. Interpretation: RIGHT: No evidence of femoral-popliteal deep venous thrombosis. Cannot entirely exclude small, focal non-occlusive DVT in the calf due to suboptimal visualization. LEFT: No evidence of femoral-popliteal deep venous thrombosis. Cannot entirely exclude small, focal non-occlusive DVT in the calf due to suboptimal visualization. Comparison: No previous study in our vascular lab database for comparison. Comment: Consider follow-up exam if signs or symptoms suggestive of DVT persist or worsen. Electronically Signed by: BALWINDER HERNANDES on 2019-09-29 10:31:02 AM End of Report IMAGIN10/13/19 CT head IMPRESSION 1. Unchanged head CT. No new intracranial abnormality. 6 mm left frontal cavernous malformation is unchanged compared to recent prior studies. 2. No evidence of large vessel occlusion or stenosis on CT angiogram of the head or neck. Assessment: Ms Ledesma is a 33 year old woman with a history of chronic migraine and hemicrania continua followed at the headache clinic (03/11/19 office visit) on a monoclonal antibody for migrainemanagement; reported history of IIH without documented elevation in CSF pressure, HTN who [facility] for ongoing persistent headache and episode of loss of consciousness with left-sided weakness. Plan: #occipital headache with intermittent loss of consciousness and left sided weakness: recent extensive workup for this has included spot EEG with out evidence of seizure or seizure focus, MRI brain and angio that showed a lateral left frontal cavernous malformation that per neurology doesn't correlate with left sided-weakness, CSF evaluation 10/12/19 with normal cell count, chemistries, and openingpressure. Differential includes complicated/hemiplegic migraine, seizures that have not yet been caught on EEG, conversion disorder - aggressive management of headache with IV ketorolac, IVF, prochlorperazine, diphenhydramine. Holdhome indomethacin for now - could add caffeine is there is thought to be an element of post-LP headache - she and I spoke at length this morning about the possibility that there may be an element of her episodes of loss of consciousness that is not related to an organic cause. She is agreeable to speaking with psychiatry today to help identify behavioral and mood-related precipitants to these episodes so she can recognize and try to control them - if ongoing episodes of loss of consciousness she will need to be transferred to a facility that is able to perform continuous EEG monitoring #depression: home citalopram #HTN: home lisinopril AM labs: normal on admission, no need for routine lab tests IV access: PIV Tubes/Drains: none DVT PPX: hold for now, patient ambulatory CODE: full Anticipated Disposition: currently admitted observation status. We are aggressively treating her headache and coordinating tele-psych visit. Anticipate discharge home 10/12 or 10/13 Team Pager( Coverage 10/09): #[phone] PCP: Amada Carson MD [phone] Attestation: observation status for management of migraine and to coordinate care with psychiatry Rodney Estrada MD 10/13/2019 * Mattie Palomares RD - 10/13/2019 10:16 AM EDT Nutritional consult;thanks for this consult. Attempted multiple times to visit patient and nursing has recommended not visit today. Weight is 145.6kg;ht 167.6cm;weight hx. Is 131.5kg in February and 145.1kg 6 months ago. BMI is 51.83 with extreme obesity. She is admitted with syncope and headache;has ELMA and anxiety,hemicrania continua. BMP is remarkable for glucose of 186; no recent HBGA1c. Diet is regular;no documentation of meal consumption Yet. Will follow. Consult is for weight loss efforts to induce 10% minium weight loss. Mattie Paolmares RDN,LD * Maddie Vee RN - 10/13/2019 9:09 AM EDT 0730 Patient awake and alert. Speaking on the phone with shuddered speech to . Able to answer questions appropriately, hold phone and move all limbs. 0738 Tele leads replaced, alert and oriented sitting up in bed. Physical assessment started, neuro assessment progressed to 1/5 strength and motor on the left side, then to 0/5 strength and motor on left and 2/5 motor and strength on the right side. Patient eyes closed and was unable to wake up. Sternal rub initialed with no reaction. VS taken. Call to ER MD ordered a stat CT for stroke protocol.Dr Estrada arrived and assumed care of patient. 0810 patient in and out of consciousness, not able to remember husbands when asked, not able toverbalize how many children she has. Crying and apologetic. 0830 patient off unit for Stat CT of head, this caption writer stayed with the patient during her procedureand returned with her to her room post procedure. 0855 patient in her room, A+Ox4 able to move all limbs, although her strength remains weak. Patientunderstands that she will likely transfer to for neurology follow up. See full assessment documented in this encounter H&P Notes * Gia Guerin MD - 10/12/2019 7:12 PM EDT Inpatient Hospital Medicine - Admission Note Problem List: Active Hospital Problems Diagnosis ??? Syncope Resolved Hospital Problems No resolved problems to display. Active Non-Hospital Problems Diagnosis ??? AMS (altered mental status) ??? Class 3 severe obesity due to excess calories with serious comorbidity and body mass index (BMI) of 50.0 to 59.9 in adult ??? Obstructive sleep apnea ??? Hypertension ??? Hemicrania continua ??? Anxiety ??? Idiopathic intracranial hypertension ??? Neurological deficit present ??? Menorrhagia ??? Exotropia ID: 33 y.o. Female presents to [facility] with headaches, syncope and stammering History of Present Illness: HPI 33-year-old female with a PMH of complex headache history who has been is followed at the headache clinic since she had an LP in 2012 that showed some borderline elevation in the opening CSF pressurein high normal range at 16 to 17 cm. She was subsequently on Diamox and had an LP for severe headache in 2018 which showed an opening pressure of 4. She has a CT and subsequent MRI in the past that has shown evidence of a left frontal cavernous malformation. Her current headache started 10 days back and is a/w ongoing stammering and episodes of passing out(no visible injuries and pt says she has forgotten what happened before, during and after the episodes ). She has visited the [facility] 3 times over the last few days last being yesterday. She had an awake EEG in the emergency department at [facility] that was read as normal results returned today. All her labs done so far are normal. She had an LP in our ED and her opening LP pressure is 4. She is also on Indocin. She carries a diagnosis of hemicrania continua. her usual headaches are in the front area but these episode is localized in the occipital area. Review of Systems: Review of Systems HENT: Positive for voice change. Neurological: Positive for syncope and headaches. All other systems reviewed and are negative. Past Medical and Surgical History: Past Medical History: Diagnosis Date ??? Abnormal cervical Papanicolaou smear 09/09/2018 ??? Diverticulosis of colon 09/09/2018 ??? Dysplasia of cervix 07/17/2006 ??? Dysuria 07/17/2006 episodes of dysuria and frequency but all negative cultures. If sx develop check Micro, CEMETERY COUNSELOR or stone. ??? Environmental and seasonal allergies ??? Hypertension 06/30/2019 ??? Post-op bleeding 02/08/2012 Following ??? Pyelonephritis 09/09/2018 ??? Strabismus ??? UTI (urinary tract infection) Past Surgical History: Procedure Laterality Date ??? SECTION N/A 03/25/2010 ??? SECTION N/A 04/24/2011 DAQUAN; Sherrell Schmidt MD ??? DILATION AND CURETTAGE OF UTERUS N/A 09/16/2015 Menorrhagia; DAQUAN; Sherrell Schmidt MD ??? HERNIA REPAIR ??? [...] SINUS SURGERY ??? TUBAL LIGATION Bilateral 04/24/2011 DAQUAN; Sherrell Schmidt MD ??? WISDOM TOOTH EXTRACTION N/A 07/01/2002 [facility]; AILEEN RIVERA, LAUREN Prior To Admission Medications: (Not in a hospital admission) Allergies: Allergies Allergen Reactions ??? Oxycodone-Acetaminophen Shortness Of Breath ??? Red Dye Other (See Comments) Stops heart Family History: Family History Problem Relation Age [...] Amblyopia Neg Hx ??? Cancer Neg Hx Social History and Habits: Social History Socioeconomic History ??? Marital status: Spouse name: Farhan Ledesma ??? Number of children: 2 ??? Years [...] Cigarettes Quit date: 10/17/2017 Years since quittin.9 ??? Smokeless tobacco: Never Used Substance and Sexual Activity ??? Alcohol use: Yes Frequency: Monthly or less Drinks per session: [...] file Gets together: Not on file Attends christian service: Not on file Active member of [...] Social History Narrative ??? Not on file Immunizations: Immunization History Administered Date(s) Administered ??? Influenza PF, Split 12/14/2016 ??? Influenza Vaccine PF, Quadrivalent 11/17/2017 ??? Influenza Vaccine PF, Seasonal, Injectible 12/14/2016, 11/18/2017 ??? MMR Vaccine, Live 04/24/2011 ??? Tdap Vaccine 03/28/2010, 11/30/2011 Physical Exam: Last Set of Vitals and range of vitals over past 24 hours: Last value Range last 24 hrs Temperature Temp: 36.7 ??C (98.1 ??F) Temp: [36.7 ??C (98.1 ??F)] Heart Rate Heart Rate: 72 Heart Rate: [72-79] Blood Pressure BP: 152/71 BP: (116-154)/(64-92) Respiratory Rate Resp: 19 Resp: [16-20] SpO2 SpO2: 96 % SpO2: [95 %-96 %] Body mass index is 48.42 kg/m??. Physical Exam Vitals signs and nursing note reviewed. Constitutional: Appearance: She is obese. Comments: Stammering in between talking. No problem in initiating speech. HENT: Head: Normocephalic and atraumatic. Right Ear: External ear normal. Left Ear: External ear normal. Nose: Nose normal. Mouth/Throat: Mouth: Mucous membranes are moist. Pharynx: Oropharynx is clear. Eyes: Extraocular Movements: Extraocular movements intact. Conjunctiva/sclera: Conjunctivae normal. Pupils: Pupils are equal, round, and reactive to light. Neck: Musculoskeletal: Normal range of motion. Cardiovascular: Rate and Rhythm: Normal rate and regular rhythm. Pulses: Normal pulses. Pulmonary: Effort: Pulmonary effort is normal. No respiratory distress. Breath sounds: Normal breath sounds. Abdominal: General: Abdomen is flat. Bowel sounds are normal. Palpations: Abdomen is soft. Musculoskeletal: Normal range of motion. General: No swelling, tenderness, deformity or signs of injury. Right lower leg: No edema. Left lower leg: No edema. Skin: General: Skin is warm and dry. Neurological: General: No focal deficit present. Mental Status: She is alert and oriented to person, place, and time. Mental status is at baseline. Cranial Nerves: No cranial nerve deficit. Deep Tendon Reflexes: Reflexes normal. Psychiatric: Thought Content: Thought content normal. Judgment: Judgment normal. Laboratory (Last 24 Hours): Recent Results (from the past 24 hour(s)) POCT urine Result Value Ref Range POC Urine HCG Negative Negative - Negative POC Control Internal Controls Acceptable Basic Metabolic Panel (non-fasting) Result Value Ref Range Glucose Lvl 186 65 - 199 mg/dL BUN 11 8 - 18 mg/dL Creatinine 0.66 (L) 0.70 - 1.20 mg/dL Sodium 137 135 - 145 mmol/L Potassium 4.0 3.5 - 5.0 mmol/L Chloride 104 98 - 107 mmol/L CO2 24 22 - 31 mmol/L Anion Gap 9 5 - 15 mmol/L Calcium 9.5 8.5 - 10.5 mg/dL eGFR 114 >=60 mL/min/1.73 m?? eGFR 133 >=60 mL/min/1.73 m?? Hemogram Result Value Ref Range WBC 6.2 4.0 - 9.5 x10(3)/mcL RBC 4.23 4.00 - 5.21 x10(6)/mcL Hemoglobin 12.5 11.7 - 15.5 gm/dL Hematocrit 37.8 35.7 - 45.8 % MCV 89.4 82.6 - 94.4 fL MCH 29.6 27.1 - 32.0 pg MCHC 33.1 31.7 - 35.0 gm/dL Platelets 297 145 - 357 x10(3)/mcL RDWSD 40.4 37.0 - 46.0 fL RDWCV 12.4 11.5 - 14.1 % MPV 9.7 7.6 - 12.9 fL Differential, Automated Result Value Ref Range Neutrophils % 61.2 % Neutr Abs (ANC) 3.77 1.70 - 6.10 x10(3)/mcL Lymphocytes % 30.7 % Lymphocytes Abs 1.9 0.9 - 3.2 x10(3)/mcL Monocytes % 6.0 % Monocyte Abs 0.4 0.3 - 0.9 x10(3)/mcL Eosinophils % 1.6 % Eosinophils Abs 0.1 0.0 - 0.4 x10(3)/mcL Basophils % 0.3 % Basophils Abs 0.0 0.0 - 0.1 x10(3)/mcL Immature Gran % 0.20 % Roberta Gran Abs 0.01 0.00 - 0.04 x10(3)/mcL Sedimentation rate Result Value Ref Range Sed Rate 14 2 - 37 mm/hr POCT Glucose Result Value Ref Range POC Glucose 147 65 - 199 mg/dL Protein Level CSF Result Value Ref Range T Protein, CSF 40 15 - 45 mg/dL Xanthochromia Neg Glucose Level CSF Result Value Ref Range Glucose, CSF 65 mg/dL CSF DESC 1 Result Value Ref Range Tube Num CSF #1 1 Color CSF #1 Colorless Colorless Appear CSF #1 Clear Clear Tot Vol CSF #1 2.0 mL CSF Cell Count Result Value Ref Range Tube # Ct CSF [address] 1 0 - 5 /mcl RBC CSF CT 69 /mcl Microbiology: Blood Cultures: Urine Cultures: Radiology: Results for orders placed or performed during the hospital encounter of 10/12/19 CT Head wo Contrast (Generic) (Exam End: 10/12/2019 11:46 AM) Impression No acute intracranial abnormality. Thank you for letting us participate in the care of this patient. For questions regarding this report, please contact the number below. Fluoro <1Hr - Radiology Use (Exam End: 10/12/2019 4:34 PM) Impression Technically successful fluoroscopically guided lumbar puncture with an opening pressure of 4 cm of water. 2 cc of CSF was collected Thank you for letting us participate in the care of this patient. For questions regarding this report, please contact the number below. Other Studies: EKG - Echocardiogram - Vascular Studies - Pulmonary Report - Endoscopy - Assessment: 33-year-old female with a PMH of complex headache history who is being kept in observation for an ongoing episode of occipital headache that started 10 days back and is a/w ongoing stammering and episodes of passing out (no visible injuries and pt says she has forgotten what happened before, duringand after the episodes ). She has visited the [facility] ED 3 times over the last few days last being yesterday. She had an awake EEG in the emergency department at [facility] that was read as normal results returned today. CT head is negative. All her labs done so far are normal. She had an LP in our ED and her opening LP pressure is 4. It is likely that her headaches are psychosomatic symptoms of depression. 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 She needs a psychiatry follow upafter discharge. I have talked to her and her and clearly told that this observation stay is mostly to monitor her and watch her improve wihtout doing additional work up. Her wants her to stay in the hospital since he says I am tired of bring her to hospital in the midnight every night . She might benefit from ELMA work up as untreated ELMA and can cause headaches too. Her current symptoms are highly unlikely to be cardiac. Plan: ?? Observation stay ?? Continue home meds including lisinopril, indomethacin, celexa ?? Ativan iv prn for anxiety and headache ?? Psychiatry tele consult in am or urgent referral at discharge to the psychiatry ?? Physical Therapy referral ?? DVT Prophylaxis - ambulatory ?? Fall precautions ?? If currently a smoker - advised about smoking cessation and will provide smoking cessation material and support. ?? Pneumovax and Influenza Immunizations given as needed. ?? Discussed Advanced Directives and Code Status. The patient wishesto be Full Code. A copy of this document will be sent to the patient's Primary Care Physician and/or Referring Physician. Gia Guerin MD 10/12/2019 documented in this encounter ED Notes * Frannie Bills RN - 10/12/2019 8:01 PM EDT Patient assisted to used bedside commode. Returned to bed and made comfortable. * Frannie Bills RN - 10/12/2019 7:30 PM EDT Young obese female received lying supine on stretcher, nil obvious painful or respiratory distress noted, patient complained of headache rated 9/10. MD made aware. * Alise Kong RN - 10/12/2019 5:58 PM EDT Patient has rested supine for an hour. Able to sit up at this time. Stuttering while speaking. Dinner ordered. * Phani Velázquez MD - 10/12/2019 5:10 PM EDT Name: Kimberli Ledesma : 1985 10/12/2019 Chief Complaint Patient presents with ??? Loss of Consciousness HPI this is a 33-year-old female with a complex headache history. She has a long history of headaches is followed at the headache clinic she had an LP in 2012 that showed some borderline elevation inher CSF was high normal range at 16 to 17 cm. Opening pressure. She was subsequently on Diamox nexthad an LP for severe headache in 2018 opening pressure was 4. She has a CT and subsequent MRI that s howed a left frontal cavernous malformation. She was recently seen in the emergency department [facility] 3 times over the last month last being yesterday. Today her states thatdasha has had such severe headaches over last 5 days that she is syncopal in the morning she presentshere in for emergency department in a personal vehicle lying back with diaphoresis and unconscious.I evaluated the patient outside of she arrived and she had a pulse of 60 at that point she was diaphoretic respirations were 18. No incontinence. She has again this history of severe headaches much worse over last 5 days no fever chills rhinorrhea congestion with this she is recently on an injectable medication for migraine started a month ago. She is also on Indocin. She carries a diagnosis of hemicrania continua. She had an awake EEG in the emergency department at [facility] that was read as normal results returned today. Past Medical History: Diagnosis Date ??? Abnormal cervical Papanicolaou smear 09/09/2018 ??? Diverticulosis of colon 09/09/2018 ??? Dysplasia of cervix 07/17/2006 ??? Dysuria 07/17/2006 episodes of dysuria and frequency but all negative cultures. If sx develop check Micro, CEMETERY COUNSELOR or stone. ??? Environmental and seasonal allergies ??? Hypertension 06/30/2019 ??? Post-op bleeding 02/08/2012 Following ??? Pyelonephritis 09/09/2018 ??? Strabismus ??? UTI (urinary tract infection) Current Facility-Administered Medications: ??? sodium chloride 0.9 % (flush) flush 3 mL, 3 mL, Intravenous, Q1 Min PRN, Phani Velázquez MD ??? ondansetron (ZOFRAN) injection 4 mg, 4 mg, Intravenous, Once, Phani Velázquez MD Current Outpatient Medications: ??? LORazepam (Ativan) 1 mg Tablet, Take 1 tablet by mouth every 6 hours as needed for Anxiety., Disp: 15 tablet, Rfl: 0 ??? indomethacin (INDOCIN) 50 mg Capsule, TAKE 1 CAPSULE BY MOUTH THREE TIMES DAILY WITH MEALS, Disp: 90 capsule, Rfl: 3 ??? citalopram (CeleXA) 40 mg Tablet, Take 1 tablet by mouth once daily, Disp: 90 tablet, Rfl: 3 ??? lisinopriL (Prinivil;Zestril) 20 mg Tablet, Take 1 tablet by mouth daily., Disp: 90 tablet, Rfl: 3 ??? galcanezumab-gnlm (Emgality Pen) 120 mg/mL Pen Injector, Inject 120 mg subcutaneously every 30 days., Disp: 1 mL, Rfl: 11 ??? ELDERBERRY FRUIT ORAL, Take 1 gummy by mouth as needed (Cold season only)., Disp: , Rfl: Allergies Allergen Reactions ??? Oxycodone-Acetaminophen Shortness Of Breath ??? Red Dye Other (See Comments) Stops heart Review of Systems: Constitutional: Fatigue and headaches as above HENT: No ear pain, rhinorrhea and sore throat. Eyes: No photophobia, pain, discharge and itching. Respiratory: No cough and shortness of breath. Cardiovascular: No chest pain and palpitations. Gastrointestinal: No blood in stool, diarrhea, nausea and vomiting. Genitourinary: No difficulty urinating, dysuria, hematuria and urgency. Musculoskeletal: No arthralgias and back pain. Skin: No rash. Neurological: Headaches no incontinence loss of consciousness as above. Psychiatric/Behavioral: Confusion initially anxious initially but cleared much more comfortable later in department course. Physical Exam Patient Vitals for the past 24 hrs: Temp Pulse Resp BP SpO2 O2 Device 10/12/19 1058 36.7 ??C (98.1 ??F) 79 16 (!) 154/92 96 % RA 10/12/19 1121 -- 73 16 144/86 95 % RA 10/12/19 1235 -- 75 20 132/78 96 % RA 10/12/19 1350 -- 77 17 142/79 96 % RA 10/12/19 1635 -- 74 16 116/64 95 % RA Constitutional: Obtunded on arrival HENT: Head: Normocephalic. Mouth/Throat: Oropharynx is clear and moist. Eyes: Pupils are equal, round, and reactive to light. Conjunctivae and EOM are normal. Neck: Normal range of motion. Neck supple. Cardiovascular: Normal rate and regular rhythm. No murmur heard. Pulmonary/Chest: Effort normal and breath sounds normal. No respiratory distress. No wheezes or rales. Abdominal: Soft. Bowel sounds are normal. There is no guarding. Musculoskeletal: Normal range of motion. Patient exhibits no edema. Neurological: Initially obtunded and confused and following commands with that she has symmetric motor and sensory exam no clonus normal cranial nerve exam Skin: Skin is warm and dry. Capillary refill takes less than 2 seconds. No rash noted. Psychiatric: Again changing mental status it is continue to clear. ED Course: Patient was brought into bed she had some dry heaves no seizure activity noted did have some twitching of her hands later in sleep but no sonu seizure activity and EKG shows sinus rhythm no acute ST or T wave changes. She was given 2 mg Ativan IV 4 mg Zofran IV much more comfortable as she became comfortable states still has severe headache given Toradol morphine IV. Head CT was pretty repeated due to the progressive severity of her headaches. No change from previous reading within the month. She has normal sed rate and white blood cell count with this. Given her changing CSF pressures in the past and the fact that she has not had infection with this ruled out she had fluoroscopic guided LP by radiology by Dr. Higuera who nicely performed the procedure. The fluid returned clear is currently in the lab opening pressure was about 5 to 6 cm as was noted in 2018. Recent Results (from the past 24 hour(s)) POCT urine Result Value Ref Range POC Urine HCG Negative Negative - Negative POC Control Internal Controls Acceptable Basic Metabolic Panel (non-fasting) Result Value Ref Range Glucose Lvl 186 65 - 199 mg/dL BUN 11 8 - 18 mg/dL Creatinine 0.66 (L) 0.70 - 1.20 mg/dL Sodium 137 135 - 145 mmol/L Potassium 4.0 3.5 - 5.0 mmol/L Chloride 104 98 - 107 mmol/L CO2 24 22 - 31 mmol/L Anion Gap 9 5 - 15 mmol/L Calcium 9.5 8.5 - 10.5 mg/dL eGFR 114 >=60 mL/min/1.73 m?? eGFR 133 >=60 mL/min/1.73 m?? Hemogram Result Value Ref Range WBC 6.2 4.0 - 9.5 x10(3)/mcL RBC 4.23 4.00 - 5.21 x10(6)/mcL Hemoglobin 12.5 11.7 - 15.5 gm/dL Hematocrit 37.8 35.7 - 45.8 % MCV 89.4 82.6 - 94.4 fL MCH 29.6 27.1 - 32.0 pg MCHC 33.1 31.7 - 35.0 gm/dL Platelets 297 145 - 357 x10(3)/mcL RDWSD 40.4 37.0 - 46.0 fL RDWCV 12.4 11.5 - 14.1 % MPV 9.7 7.6 - 12.9 fL Differential, Automated Result Value Ref Range Neutrophils % 61.2 % Neutr Abs (ANC) 3.77 1.70 - 6.10 x10(3)/mcL Lymphocytes % 30.7 % Lymphocytes Abs 1.9 0.9 - 3.2 x10(3)/mcL Monocytes % 6.0 % Monocyte Abs 0.4 0.3 - 0.9 x10(3)/mcL Eosinophils % 1.6 % Eosinophils Abs 0.1 0.0 - 0.4 x10(3)/mcL Basophils % 0.3 % Basophils Abs 0.0 0.0 - 0.1 x10(3)/mcL Immature Gran % 0.20 % Roberta Gran Abs 0.01 0.00 - 0.04 x10(3)/mcL Sedimentation rate Result Value Ref Range Sed Rate 14 2 - 37 mm/hr POCT Glucose Result Value Ref Range POC Glucose 147 65 - 199 mg/dL Ct Head Wo Contrast (generic) Result Date: 10/12/2019 EXAMINATION: CT HEAD WO CONTRAST (GENERIC) CLINICAL HISTORY: Altered mental status; Headache, chronic, with new features TECHNIQUE: CT head performed without intravenous contrast administration. COMPARISON: MR 09/29/2019, CTA 12/08/2019, CT 11/15/2017 FINDINGS: The ventricles are normal in size. Left frontal cavernous malformation is unchanged. There is no intracranial hemorrhage or extra-axial collection. No mass, mass effect, or shift. No CT evidence of acute territorial infarct. The partially imaged right maxillary sinus is completely opacified. No acute intracranial abnormality. Thank you for letting us participate in the care of this patient. For questions regarding this report, please contact the number below. Ct Head Wo Contrast (generic) Procedure by radiologist: Xr Fluoro <1hr - Radiology Use Result Date: 10/12/2019 EXAMINATION: XR FLUORO <1HR - RADIOLOGY [...] used for local anesthesia. A 6 inch 22- gauge spinal needle was advanced under intermittent fluoroscopic guidance using a paramedian L2-L3 approach. There was return of clear CSF. Opening pressure was 4 cm of water. 2 cc of CSF was collected for lab work. The patient elected to proceed nofurther. Stylet was replaced before the needle was withdrawn. No immediate complications. Technically successful fluoroscopically guided lumbar puncture with an opening pressure of 4 cm of water. 2 cc of CSF was collected Thank you for letting us participate in the care of this patient. For questions regarding this report, please contact the number below. Electronically signed by: DELVIS Arnold [facility] ([phone]), at 10/12/2019 4:52 PM Mri Angiogram Head Wo & Mri Brain Wwo Contrast Result Date: 09/29/2019 EXAMINATION: MRI ANGIOGRAM HEAD WO & MRI BRAIN WWO CONTRAST CLINICAL HISTORY: pt with episodes of unresponsiveness possible vessel abnormalities on CT, seizure question TECHNIQUE: MRI of the brain was performed before and after the intravenous administration of 28cc Dotarem. MR Angiogram of thehead without contrast was also performed. 3-D MIP reconstructions were created. COMPARISON: CT head09/28/2019 FINDINGS: MRI brain: There is a developmental venous anomaly in the lateral aspect of theleft frontal lobe. There is a subjacent chronic microbleed in the parenchymal just medial to the DVA which shows a faint amount of T1 bright signal on the precontrast T1 axial images, with no surrounding edema. No additional intracranial hemorrhage. No solid mass lesion, midline shift, hydrocephalus, or acute infarction. The subarachnoid spaces are within normal limits. No abnormal enhancement. The marrow signal is within normal limits. MRA head: No aneurysm, vascular malformation, significant arterial stenosis, cut off, or other significant arterial abnormality. 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 MRA head: Normal study. Thank you for letting us participate in the care of this patient. For questions regarding this report, please contact the number below. : Patient has a complex headache history as above work-up as above progressive worsening of her symptoms and with syncope and obtundation arrival here today. Her headaches are improved but still quite prominent and at this point with this being her fourth visit to the hospital within a month andwith a syncope will be discussing case with hospital medicine for admission for monitoring, pain control and observation. 1. Syncope, unspecified syncope type 2. Severe headache 3. Hemicrania continua Disposition: Your Medications UNREVIEWED medications - Discuss With Your Provider Dose Details citalopram 40 mg Tab Commonly known as: CeleXA Take 1 tablet by mouth once daily Quantity: 90 tablet Refills: 3 ELDERBERRY FRUIT ORAL Take 1 gummy by mouth as needed (Cold season only). 1 gummy Refills: 0 Emgality Pen 120 mg/mL Pnij Inject 120 mg subcutaneously every 30 days. Generic drug: galcanezumab-gnlm 120 mg Quantity: 1 mL Refills: 11 indomethacin 50 mg Cap Commonly known as: INDOCIN TAKE 1 CAPSULE BY MOUTH THREE TIMES DAILY WITH MEALS Quantity: 90 capsule Refills: 3 lisinopriL 20 mg Tab Commonly known as: Prinivil;Zestril Take 1 tablet by mouth daily. 20 mg Quantity: 90 tablet Refills: 3 LORazepam 1 mg Tab Commonly known as: Ativan Take 1 tablet by mouth every 6 hours as needed for Anxiety. 1 mg Quantity: 15 tablet Refills: 0 Phani Velázquez MD 10/12/2019 Phani Velázquez MD 10/12/19 1717 * Alise Kong RN - 10/12/2019 4:01 PM EDT Transferred to [facility] for lumbar puncture via stretcher. * Alise Kong RN - 10/12/2019 3:22 PM EDT Resting on right side. Respirations regular and unlabored. Spouse reported he watched her hands twich and she has never done that before. This RN did not witness it. The spouse wanted to speak withthe doctor. MD in to see spouse. * Alise Kong RN - 10/12/2019 1:49 PM EDT Alert and oriented at this time. Asked to sit up. Reported increase in headache but declined to layback down. Declined bedpan. RN helped patient use BSC. No questions or concerns at this time. Spouse present at bedside. RN asked about patient's children. Patient slow to process information. Spousestated this is not normal for her. Gingerale provided to patient. * Alise Kong RN - 10/12/2019 12:34 PM EDT Resting supine. Opened eyes to verbal stimulation. Reports headache now 09/27. Reoriented to place and situation. Spouse has left the hospital. Call eubanks in reach. * Alise Kong RN - 10/12/2019 11:25 AM EDT Resting on left side. Seizure pad in place on stretcher. * Alise Kong RN - 10/12/2019 11:07 AM EDT 2mg lorazepam administered to patient per MD verbal order. Patient responding to verbal stimulationat this time. 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 Patient is alert and oriented x4. See Adult Patient Care Summary for focused assessment upon admission. Patient rates their pain as 8/10 at this time. Patientoriented to room and the units practice of purposeful rounding. Call eubanks within reach and all questions/concerns answered at this time. Will continue to monitor patient as necessary. Elsie Mcmillan RN, 10/12/2019 0240: Patient complained of increased pain with her headache 2340. She was given Lorazepam 1mg at that time and is resting comfortably. Will continue to monitor. 0530: patient having increased pain at this time. AM indomethacin was given. Patient stated that she recently started an injection for her migraines and feels that this it related to them. She statedthat after taking the first two injections her pain changed and it went from being in the front of her head to the back. After that the pain started becoming so sever that she would black out and have seizure activity. Noted Ca that patient stated is not normal. PLAN MOVING FORWARD: Encourage ambulation, Monitor pain, seizure pads in place. INDIVIDUALIZED FALL PREVENTION INTERVENTIONS: Patient-specific fall risk factors per assessment: [current deficits]: Patient is at low risk for falls related to recent admission and unfamiliar environment. Assistance [level of assistance required for transfers and ambulation]: SBA Supervision [direct monitoring required during toileting and ADLs]: Within arms reach Surveillance [continuous indirect monitoring]: Purposeful rounding and call eubanks within reach. Patient-specific fall prevention interventions for sensory deficits provided, if applicable: [X] No CPG GOAL OUTCOME EVALUATION: Goal: Individualization & Mutuality Outcome: Ongoing (Interventions Implemented as Appropriate) 10/12/192058 Mutuality/Individual Preferences What Anxieties, Fears or Concerns Do You Have About Your Health or Care? None What Questions Do You Have About Your Health or Care? None What Information Would Help Us Give You More Personalized Care? None Goal: Fall Prevention-Safe Patient Handling Outcome: Ongoing (Interventions Implemented as Appropriate) 10/12/192103 [place] Fall Risk History of Falling 0 Secondary Diagnosis 0 Ambulatory Aids 0 Intravenous Therapy/Heparin/Saline Lock 20 Gait/Transferring 0 Mental Status 0 Score 20 OTHER [place] Fall Risk Low Restraint Interventions Safety Promotion/Fall Prevention activity supervised;fall prevention program maintained;muscle strengthening facilitated;safety round/check completed;nonskid shoes/slippers when out of bed Positioning Body Position supine, head elevated Activity Activity Type activity adjusted per tolerance Goal: Infection Control Outcome: Ongoing (Interventions Implemented as Appropriate) 10/12/192103 Safety Interventions Isolation Precautions standard precautions maintained Infection Prevention environmental surveillance performed;rest/sleep promoted;single patient room provided Coping Strategies Supportive Measures active listening utilized;positive reinforcement provided;self-care encouraged Goal: Discharge Needs Assessment Outcome: Ongoing (Interventions Implemented as Appropriate) 10/12/192243 Discharge Needs Assessment Concerns To Be Addressed no discharge needs identified Discharge Disposition still a patient Goal: Interdisciplinary Rounds/Family Conf Outcome: Ongoing (Interventions Implemented as Appropriate) 10/12/192243 Interdisciplinary Rounds/Family Conf Participants nursing;patient;physician Problem: Pain, Acute (Adult) Goal: Identify Related Risk Factors and Signs and Symptoms Related risk factors and signs and symptoms are identified upon initiation of Human Response Clinical Practice Guideline (CPG) Outcome: Ongoing (Interventions Implemented as Appropriate) 10/12/192243 Pain, Acute Related Risk Factors (Acute Pain) other (see comments) (headache) Goal: Acceptable Pain Control/Comfort Level Patient will demonstrate the desired outcomes by discharge/transition of care. Outcome: Ongoing (Interventions Implemented as Appropriate) 10/12/192243 Pain, Acute (Adult) Acceptable Pain Control/Comfort Level making progress toward outcome * ED Triage - Alise Kong RN - 10/12/2019 10:55 AM EDT 33 yr old female. Brought to ED by spouse for loss of consciousness r/t headache. [facility] Patient was unresponsive in the front seat. Respirations equal and unlabored. Patient regained consciousness to be helped out of vehicle by this RN, the MD and 2 other RNs. Patient lost conscious again and appeared to have a seizure. Patient regained consciousness and complained of a headache in the back of her head and did not remember where she was or what was going on. Patient unresponsive at this time. MD at bedside. Placed on monitor. IV started. EDG done. Spouse at bedside. documented in this encounter Plan of Treatment [...] Procedure Name Priority Date/Time Associated Diagnosis Comments HC VENIPUNCTURE Routine 10/15/2019 6:53 AM EDT POCT GLUCOSE Routine 10/14/2019 1:[address] HEAD WO CONTRAST (GENERIC) STAT 10/13/2019 8:[address] CAROTIDS AND PONCA OF [place] W CONTRAST STAT 10/13/2019 8:51 AM EDT POCT GLUCOSE Routine 10/13/2019 8:01 AM EDT ECG SCAN 10/13/2019 12:00 AM EDT RAPID COVID-19 PCR ([facility]) STAT 10/12/2019 4:41 PM EDT XR FLUORO NO RAD <1HR - RADIOLOGY USE STAT 10/12/2019 4:34 PM EDT HC DRIFTMAN CULTURE STAT 10/12/2019 3:37 PM EDT HC CSF CELL COUNT STAT 10/12/2019 3:3 3 PM EDT CSF CELL COUNT STAT 10/12/2019 3:33 PM EDT CSF DESC 1 STAT 10/12/2019 3:33 PM EDT HC PROTEIN, CSF STAT 10/12/2019 3:33 PM EDT HC GLUCOSE, CSF STAT 10/12/2019 3:33 PM EDT ACUTE [place] INFECTION PANEL Routine 10/12/2019 3:32 PM EDT LYME IGG & IGM ANTIBODY Routine 10/12/2019 3:[address] HEAD WO CONTRAST (GENERIC) STAT 10/12/2019 11:46 AM EDT EKG 12-LEAD STAT 10/12/2019 11:04 AM EDT POCT GLUCOSE Routine 10/12/2019 10:52 AM EDT HEMOGRAM STAT 10/12/2019 10:32 AM EDT DIFFERENTIAL, AUTOMATED STAT 10/12/2019 10:32 AM EDT SEDIMENTATION RATE STAT 10/12/2019 10 :32 AM EDT HC CBC,PLT & AUTO DIFF STAT 0 10:32 AM EDT BASIC METABOLIC PANEL STAT 10/12/2019 10:32 AM EDT POCT URINE STAT 10/12/2019 documented in this encounter Results * (ABNORMAL) Basic Metabolic Panel (non-fasting) (10/15/2019 6:53 AM EDT) Glucose 106 65 - 199 mg/dL [facility] Comment:Diabetes: >=200 mg/d L plus symptoms Blood Urea Nitrogen 10 8 - 18 mg/dL [facility] Creatinine 0.66(L) 0.70 - 1.20 mg/dL [facility] Sodium 140 135 - 145 mmol/L [facility] Potassium 4.3 3.5 - 5.0 mmol/L [facility] Comment: Please note: ??Patients with WBC >100,000 may have falsely elevated Potassium levels. ??For accurate Potassium quantification in these patients send serum separator tube (gold top) for subsequent determinations. ??Contact the Clinical Chemistry Laboratory if there are any questions. Chloride 104 98 - 107 mmol/L [facility] Carbon Dioxide 27 22 - 31 mmol/L [facility] Anion Gap 10 5 - 15 mmol/L [facility] Calcium 9.4 8.5 - 10.5 mg/dL [facility] Est Glomerular Filtration Rate 114 >=60 mL/min/1. 73 m?? [facility] Comment: The eGFR was calculated using the CKD-EPI equation. As with all creatinine based estimates of kidney function, eGFR values calculated with the CKD-EPI equation are not accurate in patients with acute kidney failure, extremes of body mass or the acutely ill. http://[employer]/[facility]kf eGFR 133 >=60 mL/min/1. 73 m?? [facility] Comment: The eGFR was calculated using the CKD-EPI equation. As with all creatinine based estimates of kidney function, eGFR values calculated with the CKD-EPI equation are not accurate in patients with acute kidney failure, extremes of body mass or the acutely ill. http://[employer]/[facility]kf Blood specimen (specimen) 10/15/2019 6:53 AM EDT 10/15/2019 7:17 AM EDT Narrative Resulting Agency Comment Spec In Lab / APD Gia Guerin MD CHEMISTRY ORDERABL ES [facility] [address] [place] [address] * POCT Glucose (10/14/2019 1:25 PM EDT) Glucose, POC 98 65 - 199 mg/dL [facility] Comment: Supplemental ranges: <140 mg/dL before meals <180 mg/dL all other times of the day Blood specimen (specimen) 10/14/2019 1:25 PM EDT 10/14/2019 1:25 PM EDT Rodney Estrada MD POINT OF CARE TEST O RDERABLES Performing Organization Address [facility] [employer] de Phone Number [facility] [place] [address] * CT Head wo Contrast (Generic) (10/13/2019 8:52 AM EDT) Anatomical Region Laterality Modality Head Computed Tomogra phy Impressions 10/13/2019 9:37 AM EDT 1. ??Unchanged head CT. No new intracranial abnormality. 6 mm left frontal cavernous malformation is unchanged compared to recent prior studies. 2. ??No evidence of large vessel occlusion or stenosis on CT angiogram of the head or neck. I have personally reviewed the image(s) and the resident's interpretation and agree with the findings, Patricio Madrigal at 10/13/2019 9:37 AM Thank you for letting us participate in the care of this patient. For questions regarding this report, please contact the number below. ? Narrative 10/13/2019 9:37 AM EDT EXAMINATION: CT HEAD WO CONTRAST (GENERIC), CT ANGIOGRAM CAROTIDS AND PONCA OF [place] CLINICAL HISTORY: History of left frontal cavernoma with DVA presented with severe headache, nausea and difficulty speaking. LP performed with opening pressure 4. EEG unremarkable. stroke protocol- acute stroke suspected TECHNIQUE: CT head performed without intravenous contrast administration.CT angiogram of the head and neck performed with intravenous contrast. COMPARISON: MR head dated 09/29/2019. CT head dated 09/28/2019, 11/07/2017. FINDINGS: Noncontrast head CT: Hyperattenuating 6 mm focus in the left anterolateral frontal white matter corresponds to known cavernous malformation, unchanged in size compared to 09/28/2019, but more conspicuous compared to 11/15/2017. No evidence of new or increasing intracranial hemorrhage. No evidence of mass effect or midline shift. No evidence of large territory acute infarction. Chaves-white interfaces are maintained. No hydrocephalus or effacement of the basilar cisterns. No extra axial collection. Orbits and globes are unremarkable. Partial opacification of the ethmoid air cells and sphenoid sinuses and opacification of the right maxillary sinus. Mastoid air cells are clear. Grossly stable 9 mm subcutaneous nodule containing a focus of calcification overlying the right parietal convexity , possibly representing a sebaceous cyst or inclusion cyst. Osseous structures are unremarkable. CTA head and neck: Common origin of the brachycephalic and left common carotid artery (bovine arch). Right carotid: Common carotid origin is normal. There is mild plaque at the carotid bifurcation without ICA stenosis. The cervical ICA is normal in caliber. Left carotid: Common carotid origin is normal. There is low-attenuation atherosclerotic plaque at the carotid bifurcation with less than 50% ICA narrowing. The cervical ICA is normal in caliber. The Vertebral arteries are unremarkable bilaterally. Cranial circulation: No evidence of large vessel arterial occlusion or stenosis. Anterior cerebral arteries and middle cerebral arteries are unremarkable. V4 segment vertebral arteries and basilar artery are unremarkable. Posterior communicating arteries are diminutive. Left frontal developmental venous anomaly draining the cavernous malformation is visualized, which itself drains into the left middle cerebral vein. Normal contrast enhancement of the dural venous sinuses. The visualized portion of the lungs are unremarkable. Soft tissues of the neck are grossly unremarkable. Procedure Note Patricio Madrigal MD - 10/13/2019 EXAMINATION: CT HEAD WO CONTRAST (GENERIC), CT ANGIOGRAM CAROTIDS ANDCIRCLE OF JONES CLINICAL HISTORY: History of left frontal cavernoma with DVA presentedwith severe headache, nausea and difficulty speaking. LP performed withopening pressure 4. EEG unremarkable. stroke protocol- acute stroke suspected TECHNIQUE: CT head performed without intravenous contrast administration.CT angiogramof the head and neck performed with intravenous contrast. COMPARISON: MR head dated 09/29/2019. CT head dated 09/28/2019, 11/07/2017. FINDINGS: Noncontrast head CT: Hyperattenuating 6 mm focus in the left anterolateral frontal whitematter corresponds to known cavernous malformation, unchanged in size comparedto 09/28/2019, but more conspicuous compared to 11/15/2017. No evidence of newor increasing intracranial hemorrhage. No evidence of mass effect or midlineshift. No evidence of large territory acute infarction. Chaves-white interfacesare maintained. No hydrocephalus or effacement of the basilar cisterns. No extra axial collection. Orbits and globes are unremarkable. Partial opacification ofthe ethmoid air cells and sphenoid sinuses and opacification of the rightmaxillary sinus. Mastoid air cells are clear. Grossly stable 9 mm subcutaneous nodule containing a focus ofcalcification overlying the right parietal convexity , possibly representing a sebaceouscyst or inclusion cyst. Osseous structures are unremarkable. CTA head and neck: Common origin of the brachycephalic and left common carotid artery(bovine arch). Right carotid: Common carotid origin is normal. There is mild plaque atthe carotid bifurcation without ICA stenosis. The cervical ICA is normal incaliber. Left carotid: Common carotid origin is normal. There is low-attenuation atherosclerotic plaque at the carotid bifurcation with less than 50% ICA narrowing. The cervical ICA is normal in caliber. The Vertebral arteries are unremarkable bilaterally. Cranial circulation: No evidence of large vessel arterial occlusion orstenosis. Anterior cerebral arteries and middle cerebral arteries are unremarkable.V4 segment vertebral arteries and basilar artery are unremarkable.Posterior communicating arteries are diminutive. Left frontal developmental venous anomaly draining the cavernousmalformation is visualized, which itself drains into the left middle cerebral vein.Normal contrast enhancement of the dural venous sinuses. The visualized portionof the lungs are unremarkable. Soft tissues of the neck are grosslyunremarkable. IMPRESSION 1. Unchanged head CT. No new intracranial abnormality. 6 mm leftfrontal cavernous malformation is unchanged compared to recent prior studies. 2. No evidence of large vessel occlusion or stenosis on CT angiogram ofthe head or neck. I have personally reviewed the image(s) and the resident's interpretationand agree with the findings, Patricio Madrigal at 10/13/2019 9:37 AM Thank you for letting us participate in the care of this patient. Forquestions regarding this report, please contact the number below. Antwan Hussein MD IMG CT ORDERABLES * CT Angiogram Carotids & [place] of [place] (10/13/2019 8:51 AM EDT) Anatomical Region Laterality Modality Neck, Head Computed Tomogra phy Impressions 10/13/2019 9:37 AM EDT 1. ??Unchanged head CT. No new intracranial abnormality. 6 mm left frontal cavernous malformation is unchanged compared to recent prior studies. 2. ??No evidence of large vessel occlusion or stenosis on CT angiogram of the head or neck. I have personally reviewed the image(s) and the resident's interpretation and agree with the findings, Patricio Madrigal at 10/13/2019 9:37 AM Thank you for letting us participate in the care of this patient. For questions regarding this report, please contact the number below. ? Narrative 10/13/2019 9:37 AM EDT EXAMINATION: CT HEAD WO CONTRAST (GENERIC), CT ANGIOGRAM CAROTIDS AND [place] OF [place] OF [place] CLINICAL HISTORY: History of left frontal cavernoma with DVA presented with severe headache, nausea and difficulty speaking. LP performed with opening pressure 4. EEG unremarkable. stroke protocol- acute stroke suspected TECHNIQUE: CT head performed without intravenous contrast administration.CT angiogram of the head and neck performed with intravenous contrast. COMPARISON: MR head dated 09/29/2019. CT head dated 09/28/2019, 11/07/2017. FINDINGS: Noncontrast head CT: Hyperattenuating 6 mm focus in the left anterolateral frontal white matter corresponds to known cavernous malformation, unchanged in size compared to 09/28/2019, but more conspicuous compared to 11/15/2017. No evidence of new or increasing intracranial hemorrhage. No evidence of mass effect or midline shift. No evidence of large territory acute infarction. Chaves-white interfaces are maintained. No hydrocephalus or effacement of the basilar cisterns. No extra axial collection. Orbits and globes are unremarkable. Partial opacification of the ethmoid air cells and sphenoid sinuses and opacification of the right maxillary sinus. Mastoid air cells are clear. Grossly stable 9 mm subcutaneous nodule containing a focus of calcification overlying the right parietal convexity , possibly representing a sebaceous cyst or inclusion cyst. Osseous structures are unremarkable. CTA head and neck: Common origin of the brachycephalic and left common carotid artery (bovine arch). Right carotid: Common carotid origin is normal. There is mild plaque at the carotid bifurcation without ICA stenosis. The cervical ICA is normal in caliber. Left carotid: Common carotid origin is normal. There is low-attenuation atherosclerotic plaque at the carotid bifurcation with less than 50% ICA narrowing. The cervical ICA is normal in caliber. The Vertebral arteries are unremarkable bilaterally. Cranial circulation: No evidence of large vessel arterial occlusion or stenosis. Anterior cerebral arteries and middle cerebral arteries are unremarkable. V4 segment vertebral arteries and basilar artery are unremarkable. Posterior communicating arteries are diminutive. Left frontal developmental venous anomaly draining the cavernous malformation is visualized, which itself drains into the left middle cerebral vein. Normal contrast enhancement of the dural venous sinuses. The visualized portion of the lungs are unremarkable. Soft tissues of the neck are grossly unremarkable. Procedure Note Patricio Madrigal MD - 10/13/2019 EXAMINATION: CT HEAD WO CONTRAST (GENERIC), CT ANGIOGRAM CAROTIDS AND[place] OF [place] CLINICAL HISTORY: History of left frontal cavernoma with DVA presentedwith severe headache, nausea and difficulty speaking. LP performed withopening pressure 4. EEG unremarkable. stroke protocol- acute stroke suspected TECHNIQUE: CT head performed without intravenous contrast administration.CT angiogramof the head and neck performed with intravenous contrast. COMPARISON: MR head dated 09/29/2019. CT head dated 09/28/2019, 11/07/2017. FINDINGS: Noncontrast head CT: Hyperattenuating 6 mm focus in the left anterolateral frontal whitematter corresponds to known cavernous malformation, unchanged in size comparedto 09/28/2019, but more conspicuous compared to 11/15/2017. No evidence of newor increasing intracranial hemorrhage. No evidence of mass effect or midlineshift. No evidence of large territory acute infarction. Chaves-white interfacesare maintained. No hydrocephalus or effacement of the basilar cisterns. No extra axial collection. Orbits and globes are unremarkable. Partial opacification ofthe ethmoid air cells and sphenoid sinuses and opacification of the rightmaxillary sinus. Mastoid air cells are clear. Grossly stable 9 mm subcutaneous nodule containing a focus ofcalcification overlying the right parietal convexity , possibly representing a sebaceouscyst or inclusion cyst. Osseous structures are unremarkable. CTA head and neck: Common origin of the brachycephalic and left common carotid artery(bovine arch). Right carotid: Common carotid origin is normal. There is mild plaque atthe carotid bifurcation without ICA stenosis. The cervical ICA is normal incaliber. Left carotid: Common carotid origin is normal. There is low-attenuation atherosclerotic plaque at the carotid bifurcation with less than 50% ICA narrowing. The cervical ICA is normal in caliber. The Vertebral arteries are unremarkable bilaterally. Cranial circulation: No evidence of large vessel arterial occlusion orstenosis. Anterior cerebral arteries and middle cerebral arteries are unremarkable.V4 segment vertebral arteries and basilar artery are unremarkable.Posterior communicating arteries are diminutive. Left frontal developmental venous anomaly draining the cavernousmalformation is visualized, which itself drains into the left middle cerebral vein.Normal contrast enhancement of the dural venous sinuses. The visualized portionof the lungs are unremarkable. Soft tissues of the neck are grosslyunremarkable. IMPRESSION 1. Unchanged head CT. No new intracranial abnormality. 6 mm leftfrontal cavernous malformation is unchanged compared to recent prior studies. 2. No evidence of large vessel occlusion or stenosis on CT angiogram ofthe head or neck. I have personally reviewed the image(s) and the resident's interpretationand agree with the findings, Patricio Madrigal at 10/13/2019 9:37 AM Thank you for letting us participate in the care of this patient. Forquestions regarding this report, please contact the number below. Antwan Hussein MD IMG CT ORDERABLES * POCT Glucose (10/13/2019 8:01 AM EDT) Pathologist [facility] Glucose, POC 150 65 - 199 mg/dL [facility] Comment: Supplemental ranges: <140 mg/dL before meals <180 mg/dL all other times of the day Blood specimen (specimen) 10/13/2019 8:01 AM EDT 10/13/2019 8:01 AM EDT Narrative Resulting Agency Comment Spec In Lab / APD Phani Velázquez MD POINT OF CARE TEST O RDERABLES [facility] [address] [place] [address] * SCAN DOC: ECG (10/13/2019 12:00 AM EDT) Narrative 10/13/2019 12:00 AM EDT Ordered by an unspecified provider. Scanning Provider MEDIA MGR SCAN EXT O RDR/RSLT * COVID-19 PCR (10/12/2019 4:41 PM EDT) Pathologist [facility] SARS-CoV-2 RNA (Rapid) Not Detected Not Detected [facility] Comment: This result should be interpreted [...] using the Simplexa COVID-19 Direct Assay by [employer] as authorized by the FDA issued Emergency [...] Department of Pathology and Laboratory Medicine at [facility], certified under the Clinical Laboratory Improvement [...] webpage under Information for Healthcare Professionals (https://www.cdc.gov/coronavirus/2019-ncov/hcp/index.html). SARS-CoV-2 Source LINOLEUM TILE FLOOR LAYER Swab [facility] Nasopharyngeal swab (specimen) 10/12/2019 4:41 PM EDT 10/12/2019 7:14 PM EDT Comment:Symptoms->Surveillan ce Narrative Resulting Agency Comment Spec In Lab / APD Phani Velázquez MD MICROBIOLOGY - GENER AL ORDERABLES [facility] [place] [address] * XR Fluoro <1Hr - Radiology Use [...] report, please contact the number below. ? Electronically signed by: DELVIS Ruiz [facility] ([phone]), at 10/12/2019 4:52 PM Narrative 10/12/2019 4:52 PM EDT EXAMINATION: XR [...] Phani Velázquez MD IMG FLUORO ORDERABLE S * CSF Culture (10/12/2019 3:37 PM EDT) Pathologist [facility] Central Nervous System Culture No growth [facility] Gram Stain Cytocentrifuge Gram Stain performed No Neutrophils seen. No microorganisms seen. [facility] Cerebrospinal fluid specimen (specimen) 10/12/2019 3:37 PM EDT 10/12/2019 7:27 PM EDT Comment:(TUBE #1) Narrative Resulting Agency Comment Spec In Lab / APD Phani Velázquez MD MICROBIOLOGY - GENER AL ORDERABLES [facility] [place] [address] * CSF Cell Count (10/12/2019 3:33 PM EDT) Tube # counted 1 [facility] Total Nucleated Cell Count, CSF 1 0 - 5 /mcl [facility] Comment: If Nucleated CSF CT result equals Zero, no smear is made and no Differential is performed. If Nucleated CSF CT result is 1-5 / mcL, a smear is made and scanned but no results are reported unless abnormalities are noted. If Nucleated CSF CT result is 6 /mcL or greater, a smear is made and manual differential is performed and reported. Nucleated CSF CT results on a CSF fluid must be correlated with clinical condition. RBC Count CSF 69 /mcl [facility] Cerebrospinal fluid specimen (specimen) 10/12/2019 3:33 PM EDT 10/12/2019 4:54 PM EDT Narrative Resulting Agency Comment Spec In Lab / APD Phani Velázquez MD BODY FLUIDS AND STOO LS ORDERABLES Performing Organization Address [facility] de Phone Number [facility] [address] [place] [address] * CSF DESC 1 (10/12/2019 3:33 PM EDT) Tube Num CSF #1 1 [facility] Color, CSF Colorless Colorless [facility] Appearance, CSF Clear Clear [facility] Total Vol, CSF 2.0 mL [facility] Cerebrospinal fluid specimen (specimen) 10/12/2019 3:33 PM EDT 10/12/2019 4:54 PM EDT Narrative Resulting Agency Comment Spec In Lab / APD Phani Velázquez MD BODY FLUIDS AND STOO LS ORDERABLES Performing Organization Address [facility] de Phone Number [facility] [address] [place] [address] * Glucose Level CSF (10/12/2019 3:33 PM EDT) Glucose, CSF 65 mg/dL [facility] Cerebrospinal fluid specimen (specimen) 10/12/2019 3:33 PM EDT 10/12/2019 4:54 PM EDT Narrative Resulting Agency Comment Spec In Lab / APD Phani Velázquez MD BODY FLUIDS AND STOO LS ORDERABLES Performing Organization Address [facility] de Phone Number [facility] [address] [place] [address] * Protein Level CSF (10/12/2019 3:33 PM EDT) Pathologist [facility] Protein, CSF 40 15 - 45 mg/dL [facility] Xanthochromia Neg [facility] Cerebrospinal fluid specimen (specimen) 10/12/2019 3:33 PM EDT 10/12/2019 4:54 PM EDT Narrative Resulting Agency Comment Spec In Lab / APD Phani Velázquez MD BODY FLUIDS AND BA RAPHAEL ORDERABLES [facility] [address] [place] [address] * Acute Tick Borne Infection Panel (10/12/2019 3:32 PM EDT) [facility] Anaplasma phagocytophilum PCR Not Detected Not Detected [facility] Comment: INTERPRETATION: A positive result indicates DNA was detected from Anaplasma phagocytophilum. A negative result indicates the absence of any detectable DNA from Anaplasma phagocytophilum. METHODS: This test was performed using multiplex real-time PCR to interrogate DNA isolated from whole blood for the groEL gene found in Anaplasma phagocytophilum. The sensitivity of the assay is approximately 10 genome equivalents per PCR reaction. LIMITATIONS AND DISCLAIMERS: Although unlikely, rare variants (known or unknown), have the potential to interfere with the performance of this test, producing false negative or false positive results. Additionally, it is possible that this test may provide positive results for species closely related to the ones tested for in this assay. When results are not consistent with other clinical observations or test results, additional testing should be considered. This test detects DNA sequences and cannot discriminate between live and organisms. This test was developed and its performance characteristics determined by the [facility] at [facility]. It has not been cleared or approved by the FDA. The laboratory is regulated under CLIA as qualified to perform high-complexity testing. This test is used for clinical purposes. It should not be regarded as investigational or for research. Ehrlichia chaffeensis PCR Not Detected Not Detected [facility] Comment: INTERPRETATION: A positive result indicates DNA was detected from Ehrlichia chaffeensis. A negative result indicates the absence of any detectable DNA from Ehrlichia chaffeensis. METHODS: This test was performed using multiplex real-time PCR to interrogate DNA isolated from whole blood for the 16S rRNA gene found in Ehrlichia chaffeensis. The sensitivity of the assay is approximately 10 genome equivalents per PCR reaction. LIMITATIONS AND DISCLAIMERS: Although unlikely, rare variants (known or unknown), have the potential to interfere with the performance of this test, producing false negative or false positive results. Additionally, it is possible that this test may provide positive results for species closely related to the ones tested for in this assay. When results are not consistent with other clinical observations or test results, additional testing should be considered. This test detects DNA sequences and cannot discriminate between live and organisms. This test was developed and its performance characteristics determined by the [facility] at [facility]. It has not been cleared or approved by the FDA. The laboratory is regulated under CLIA as qualified to perform high-complexity testing. This test is used for clinical purposes. It should not be regarded as investigational or for research. Babesia microti PCR Not Detected Not Detected [facility] Comment: INTERPRETATION: A positive result indicates DNA was detected from Babesia microti. A negative result indicates the absence of any detectable DNA from Babesia microti. METHODS: This test was performed using multiplex real-time PCR to interrogate DNA isolated from whole blood for the 18S rRNA gene found in Babesia microti. The sensitivity of the assay is approximately 10 genome equivalents per PCR reaction. LIMITATIONS AND DISCLAIMERS: Although unlikely, rare variants (known or unknown), have the potential to interfere with the performance of this test, producing false negative or false positive results. Additionally, it is possible that this test may provide positive results for species closely related to the ones tested for in this assay. When results are not consistent with other clinical observations or test results, additional testing should be considered. This test detects DNA sequences and cannot discriminate between live and organisms. This test was developed and its performance characteristics determined by the [facility] at [facility]. It has not been cleared or approved by the FDA. The laboratory is regulated under CLIA as qualified to perform high-complexity testing. This test is used for clinical purposes. It should not be regarded as investigational or for research. Borrelia miyamotoi PCR Not Detected Not Detected [facility] Comment: INTERPRETATION: A positive result indicates DNA was detected from Borrelia miyamotoi. A negative result indicates the absence of any detectable DNA from Borrelia miyamotoi. METHODS: This test was performed using multiplex real-time PCR to interrogate DNA isolated from whole blood for the flaB gene found in Borrelia miyamotoi. The sensitivity of the assay is approximately 10 genome equivalents per PCR reaction. LIMITATIONS AND DISCLAIMERS: Although unlikely, rare variants (known or unknown), have the potential to interfere with the performance of this test, producing false negative or false positive results. Additionally, it is possible that this test may provide positive results for species closely related to the ones tested for in this assay. When results are not consistent with other clinical observations or test results, additional testing should be considered. This test detects DNA sequences and cannot discriminate between live and organisms. This test was developed and its performance characteristics determined by the [facility] at [facility]. It has not been cleared or approved by the FDA. The laboratory is regulated under CLIA as qualified to perform high-complexity testing. This test is used for clinical purposes. It should not be regarded as investigational or for research. Blood specimen (specimen) Venous Draw / Unknown 10/12/2019 3:32 PM EDT 10/13/2019 7:25 AM EDT Narrative Resulting Agency Comment Spec In Lab / APD Phani Velázquez MD MOLECULAR ORDERABLES Performing Organization Address [facility] de Phone Number [facility] [place] [address] * Lyme IgG & IgM Antibody (10/12/2019 3:32 PM EDT) Lyme Antibody Neg Neg [facility] Blood specimen (specimen) Venous Draw / Unknown 10/12/2019 3:32 PM EDT 10/13/2019 8:03 AM EDT Narrative Resulting Agency Comment Spec In Lab / APD Phani Velázquez MD IMMUNOLOGY ORDERABLE S Performing Organization Address [facility] de Phone Number [facility] [place] [address] * CT Head wo Contrast (Generic) (10/12/2019 11:46 AM EDT) Anatomical Region Laterality Modality Head Computed Tomogra phy Impressions 10/12/2019 11:50 AM EDT No acute intracranial abnormality. Thank you for letting us participate in the care of this patient. For questions regarding this report, please contact the number below. ? Electronically signed by: DLEVIS Pate [facility] ([phone]), at 10/12/2019 11:50 AM Narrative 10/12/2019 11:50 AM EDT EXAMINATION: CT HEAD WO CONTRAST (GENERIC) CLINICAL HISTORY: Altered mental status; Headache, chronic, with new features TECHNIQUE: CT head performed without intravenous contrast administration. COMPARISON: MR 09/29/2019, CTA 12/08/2019, CT 11/15/2017 FINDINGS: The ventricles are normal in size. Left frontal cavernous malformation is unchanged. There is no intracranial hemorrhage or extra-axial collection. No mass, mass effect, or shift. No CT evidence of acute territorial infarct. The partially imaged right maxillary sinus is completely opacified. Procedure Note Patricio Madrigal MD - 10/12/2019 EXAMINATION: CT HEAD WO CONTRAST (GENERIC) CLINICAL HISTORY: Altered mental status; Headache, chronic, with newfeatures TECHNIQUE: CT head performed without intravenous contrast administration. COMPARISON: MR 09/29/2019, CTA 12/08/2019, CT 11/15/2017 FINDINGS: The ventricles are normal in size. Left frontal cavernous malformationis unchanged. There is no intracranial hemorrhage or extra-axial collection.No mass, mass effect, or shift. No CT evidence of acute territorial infarct.The partially imaged right maxillary sinus is completely opacified. IMPRESSION No acute intracranial abnormality. Thank you for letting us participate in the care of this patient. Forquestions regarding this report, please contact the number below. Phani Velázquez MD IMG CT ORDERABLES * EKG 12 Lead (10/12/2019 11:04 AM EDT) Ventricular rate 81 BPM MUSE SYSTEM Atrial Rate 81 BPM MUSE SYSTEM P-R Interval 142 ms MUSE SYSTEM QRS Duration 86 ms MUSE SYSTEM Q-T Interval 360 ms MUSE SYSTEM QTC Calculated (Bezet) 418 ms MUSE SYSTEM Calculated P [place] 13 degrees MUSE SYSTEM Calculated R [place] 26 degrees MUSE SYSTEM Calculated T [place] 23 degrees MUSE SYSTEM INTERPRETATION Normal sinus rhythm Normal ECG When compared with ECG of 28-SEP-2019 12:07, No significant change was found Confirmed by Desiree Almonte ([id number]) on 10/12/2019 12:29:33 PM MUSE SYSTEM 10/12/2019 11:0 4 AM EDT 10/12/2019 12:29 PM EDT Phani Velázquez MD ECG ORDERABLES MUSE SYSTEM * POCT Glucose (10/12/2019 10:52 AM EDT) [facility] Glucose, POC 147 65 - 199 mg/dL [facility] Comment: Supplemental ranges: <140 mg/dL before meals <180 mg/dL all other times of the day Blood specimen (specimen) 10/12/2019 10:52 AM EDT 10/12/2019 10:52 AM EDT Narrative Resulting Agency Comment Spec In Lab / APD Phani Velázquez MD POINT OF CARE TEST O RDERABLES [facility] [address] [place] [address] * Sedimentation rate (10/12/2019 10:32 AM EDT) [facility] Sedimentation Rate Automated 14 2 - 37 mm/hr [facility] Blood specimen (specimen) Venous Draw / Unknown 10/12/2019 10:32 AM EDT 10/12/2019 10:54 AM EDT Narrative Resulting Agency Comment Spec In Lab / APD Phani Velázquez MD HEMATOLOGY ORDERABLE S Performing Organization Address City/[facility]/ZIP Co de Phone Number [facility] [address] [place] [address] * Differential, Automated (10/12/2019 10:32 AM EDT) Neutrophil % 61.2 % [facility] Neutrophil Absolute 3.77 1.70 - 6.10 x10(3)/mcL [facility] Lymph % 30.7 % [facility] Lymphocytes Abs 1.9 0.9 - 3.2 x10(3)/mcL [facility] Monocyte % 6.0 % [facility] Monocyte Abs 0.4 0.3 - 0.9 x10(3)/mcL [facility] Eos % 1.6 % [facility] Eosinophils Abs 0.1 0.0 - 0.4 x10(3)/mcL [facility] Basophil % 0.3 % [facility] Baso Absolute 0.0 0.0 - 0.1 x10(3)/mcL [facility] Immature Gran % 0.20 % [facility] Comment: Immature granulocytes(IG's)percentage and absolute count will include metamyelocytes, myelocytes, and promyelocytes. Blood smears from CBCs yielding IG's will be scanned manually for concordance. If this scan disagrees with the automated IG or if promyelocytes are noted, a manual differential will be performed. Immature Gran Absolute 0.01 0.00 - 0.04 x10(3)/mcL [facility] Blood specimen (specimen) 10/12/2019 10:32 AM EDT 10/12/2019 10:54 AM EDT Narrative Resulting Agency Comment Spec In Lab / APD Phani Velázquez MD HEMATOLOGY ORDERABLE S Performing Organization Address City/[facility]/ZIP Co de Phone Number [facility] [address] [place] [address] * Hemogram (10/12/2019 10:32 AM EDT) White Blood Cell 6.2 4.0 - 9.5 x10(3)/mcL [facility] Red Blood Cell 4.23 4.00 - 5.21 x10(6)/mcL [facility] Hemoglobin 12.5 11.7 - 15.5 gm/dL [facility] Hematocrit 37.8 35.7 - 45.8 % [facility] Mean Cell Volume 89.4 82.6 - 94.4 fL [facility] Mean Cell Hemoglobin 29.6 27.1 - 32.0 pg [facility] Mean Cell Hemoglobin Concentration 33.1 31.7 - 35.0 gm/dL [facility] Platelet 297 145 - 357 x10(3)/mcL [facility] RDW Standard Deviation 40.4 37.0 - 46.0 fL [facility] RDW coefficient of variation 12.4 11.5 - 14.1 % [facility] Mean Platelet Volume 9.7 7.6 - 12.9 fL [facility] Blood specimen (specimen) 10/12/2019 10:32 AM EDT 10/12/2019 10:54 AM EDT Narrative Resulting Agency Comment Spec In Lab / APD Phani Velázquez MD HEMATOLOGY ORDERABLE S [facility] [address] [place] [address] * (ABNORMAL) Basic Metabolic Panel (non-fasting) (10/12/2019 10:32 AM EDT) Glucose 186 65 - 199 mg/dL [facility] Comment:Diabetes: >=200 mg/d L plus symptoms Blood Urea Nitrogen 11 8 - 18 mg/dL [facility] Creatinine 0.66(L) 0.70 - 1.20 mg/dL [facility] Sodium 137 135 - 145 mmol/L [facility] Potassium 4.0 3.5 - 5.0 mmol/L [facility] Comment: Please note: ??Patients with WBC >100,000 may have falsely elevated Potassium levels. ??For accurate Potassium quantification in these patients send serum separator tube (gold top) for subsequent determinations. ??Contact the Clinical Chemistry Laboratory if there are any questions. Chloride 104 98 - 107 mmol/L [facility] Carbon Dioxide 24 22 - 31 mmol/L [facility] Anion Gap 9 5 - 15 mmol/L [facility] Calcium 9.5 8.5 - 10.5 mg/dL [facility] Est Glomerular Filtration Rate 114 >=60 mL/min/1. 73 m?? [facility] Comment: The eGFR was calculated using the CKD-EPI equation. As with all creatinine based estimates of kidney function, eGFR values calculated with the CKD-EPI equation are not accurate in patients with acute kidney failure, extremes of body mass or the acutely ill. http://[employer]/[facility] eGFR 133 >=60 mL/min/1. 73 m?? [facility] Comment: The eGFR was calculated using the CKD-EPI equation. As with all creatinine based estimates of kidney function, eGFR values calculated with the CKD-EPI equation are not accurate in patients with acute kidney failure, extremes of body mass or the acutely ill. http://[employer]/[facility] Blood specimen (specimen) 10/12/2019 10:32 AM EDT 10/12/2019 10:54 AM EDT Narrative Resulting Agency Comment Spec In Lab / APD Phani Velázquez MD CHEMISTRY ORDERABLES [facility] [address] [place] [address] * POCT urine (10/12/2019) POC Urine HCG Negative Negative - Negative POC Control Internal Controls Acceptable 10/12/2019 Phani Velázquez MD POINT OF CARE TEST O RDERABLES documented in this encounter Visit Diagnoses Diagnosis Complicated migraine- Primary Migraine with aura, without mention of intractable migraine without mention of status migrainosus Syncope, unspecified syncope type Severe headache Headache Hemicrania continua Neurological deficit present Other symptoms involving nervous and musculoskeletal systems Syncope Syncope and collapse Anxiety Anxiety state, unspecified documented in this encounter Admitting Diagnoses Diagnosis Syncope Syncope and collapse documented in this encounter Administered Medications Inactive Administered Medications - up to 3 most recent administrations Medication Order MAR Action Action Date Dose Rate Site citalopram (CeleXA) tablet 40 mg 40 mg, Oral, DAILY, First dose on Sat10/13/19 at 0900, Until Discontinued, Routine Given 10/15/2019 8:05 AM EDT 40 mg Given 10/14/2019 9:05 AM EDT 40 mg Given 10/13/2019 9:38 AM EDT 40 mg diphenhydrAMINE (BENADRYL) injection 12.5 mg 12.5 mg, Intravenous, ONCE, 1 dose, On Sat10/13/19 at 0915, Routine Given 10/13/2019 9:38 AM EDT 12.5 mg fentaNYL (PF) 50 mcg/mL injection 50 mcg, Intravenous, ONCE, 1 dose, On Sat10/12/19 at 1102, HIGH ALERT MEDICATION, STAT Given 10/12/2019 11:18 AM EDT 50 mcg fentaNYL (PF) 50 mcg/mL injection 50 mcg, Intravenous, ONCE, 1 dose, On Sat10/12/19 at 1303, If medication ordered subcutaneously, do not administer more than 2 mL as a single injection., STAT Given 10/12/2019 2:12 PM EDT 50 mcg fentaNYL (PF) 50 mcg/mL injection 50 mcg, Intravenous, ONCE, 1 dose, On Sat10/12/19 at 2030, If medication ordered subcutaneously, do not administer more than 2 mL as a single injection., STAT Given 10/12/2019 8:34 PM EDT 50 mcg hydrOXYzine (Atarax) tablet 25 mg 25 mg, Oral, 3 TIMES DAILY WITH MEALS, First dose on Sat10/14/19 at 1730, Until Discontinued, Patient may refuse, Routine Given 10/15/2019 12:21 PM EDT 2 5 mg Given 10/15/2019 7:43 AM EDT 25 mg Given 10/14/2019 5:28 PM EDT 25 mg indomethacin (Indocin) capsule 50 mg 50 mg, Oral, 3 TIMES DAILY WITH MEALS, First dose (after last modification) on Sat10/13/19 at 0630, Until Discontinued, Routine Given 10/13/2019 5:39 AM EDT 50 mg indomethacin (Indocin) capsule 50 mg 50 mg, Oral, 3 TIMES DAILY WITH MEALS, First dose on Sat10/14/19 at 1730, Until Discontinued, Routine Given 10/15/2019 12:22 PM EDT 50 mg Given 10/15/2019 7:43 AM EDT 50 mg Given 10/14/2019 5:28 PM EDT 50 mg iohexoL (OMNIPAQUE) 350 mg/mL solution 0-200 mL 0-200 mL, Intravenous, ONCE PRN, 1 dose, Starting on Sat10/13/19 at 0815, Until Sat10/13/19 at 0815, Per Protocol, Warning Vesicant/Irritant Medication , Radiology Contrast, Routine Given 10/13/2019 8:15 AM EDT 100 mLs ketorolac (TORADOL) injection 15 mg 15 mg, Intravenous, ONCE, 1 dose, On Sat10/12/19 at 1102, STAT Given 10/12/2019 11:19 AM EDT 15 mg ketorolac (TORADOL) injection 15 mg 15 mg, Intravenous, ONCE, 1 dose, On Sat10/12/19 at 1303, STAT Given 10/12/2019 2:12 PM EDT 15 mg ketorolac (TORADOL) injection 15 mg 15 mg, Intravenous, ONCE, 1 dose, On Sat10/13/19 at 0915, STAT Given 10/13/2019 9:37 AM EDT 15 mg ketorolac (TORADOL) injection 15 mg 15 mg, Intravenous, ONCE, 1 dose, On Sat10/14/19 at 0945, STAT Given 10/14/2019 9:05 AM EDT 15 mg ketorolac (TORADOL) injection 15 mg 15 mg, Intravenous, ONCE, 1 dose, On Sat10/14/19 at 1430, STAT Given 10/14/2019 1:56 PM EDT 15 mg ketorolac (TORADOL) injection 15 mg 15 mg, Intravenous, ONCE, 1 dose, On Sat10/14/19 at 2100, STAT Given 10/14/2019 8:21 PM EDT 15 mg ketorolac (TORADOL) injection 15 mg 15 mg, Intravenous, ONCE, 1 dose, On Sat10/15/19 at 0230, STAT Given 10/15/2019 2:20 AM EDT 15 mg lactated Ringers 1,000 mL IV bolus Intravenous, ONCE, 1 dose, On Sat10/13/19 at 0915 New Bag 10/13/2019 10:03 AM EDT lisinopriL (Prinivil;Zestril) tablet 20 mg 20 mg, Oral, DAILY, First dose on Sat10/13/19 at 0900, Until Discontinued, Routine Given 10/15/2019 8:05 AM EDT 20 mg Given 10/14/2019 9:05 AM EDT 20 mg Given 10/13/2019 9:38 AM EDT 20 mg LORazepam (ATIVAN) injection 1 mg 1 mg, Intravenous, ONCE, 1 dose, On Sat10/12/19 at 1044, If medication ordered subcutaneously, do not administer more than 2 mL as a single injection., STAT Given 10/12/2019 11:05 AM EDT 1 mg LORazepam (ATIVAN) injection 1 mg 1 mg, Intravenous, ONCE, 1 dose, On Sat10/12/19 at 1102, If medication ordered subcutaneously, do not administer more than 2 mL as a single injection., STAT Given 10/12/2019 11:06 AM EDT 1 mg LORazepam (ATIVAN) injection 1 mg 1 mg, Intravenous, EVERY 6 HOURS PRN, Starting on Sat10/12/19 at 2046, Until Sat10/14/19 at 1634, Anxiety, Nausea, Vomiting, headache, If medication ordered subcutaneously, do not administer more than 2 mL as a single injection., Routine Given 10/14/2019 1:40 PM EDT 1 mg Given 10/14/2019 5:40 AM EDT 1 mg Given 10/13/2019 6:49 PM EDT 1 mg LORazepam (Ativan) tablet 1 mg 1 mg, Oral, ONCE, 1 dose, On Tayler 10/15/19 at 0115, Routine Given 10/15/2019 1:33 AM EDT 1 mg ondansetron (ZOFRAN) 4 mg/2 mL injection 1 dose, Starting on Sat10/12/19 at 1037, Until Sat10/12/19 at 1045, Alise Kong: rickinet override ondansetron (ZOFRAN) injection 4 mg 4 mg, Intravenous, ONCE, 1 dose, On Sat10/12/19 at 1038, STAT Given 10/12/2019 10:45 AM EDT 4 mg ondansetron (ZOFRAN) injection 4 mg 4 mg, Intravenous, ONCE, 1 dose, On Sat10/12/19 at 1044, STAT Given 10/12/2019 7:58 PM EDT 4 mg prochlorperazine (COMPAZINE) injection 10 mg 10 mg, Intravenous, ONCE, 1 dose, On Sat10/13/19 at 0915, Routine Given 10/13/2019 9:37 AM EDT 10 mg prochlorperazine (Compazine) tablet 10 mg 10 mg, Oral, EVERY 6 HOURS PRN, Starting on Sat10/14/19 at 1630, Until Sat10/15/19 at 1505, Nausea, Vomiting, Nausea/Vomiting, If multiple antiemetics ordered, please use ondansetron first. If unable to take PO, may give IV., Routine sodium chloride 0.9 % (flush) flush 3 mL 3 mL, Intravenous, EVERY 1 MIN PRN, Starting on Sat10/12/19 at 1030, Until Sat10/15/19 at 1505, for flushes pre / post IV fluids or blood draws as needed, Routine Given 10/13/2019 9:44 AM EDT 3 mLs sodium chloride 0.9 % (flush) flush 3 mL 3 mL, Intravenous, EVERY 12 HOURS SCHEDULED, First dose on Sat10/12/19 at 2145, Until Discontinued, Routine Given 10/15/2019 8:07 AM EDT 3 mLs Given 10/14/2019 8:22 PM EDT 3 mLs Given 10/14/2019 9:06 AM EDT 3 mLs documented in this encounter Active and Recently Administered Medications Times are shown in EDT. Scheduled Medication Order 10/13/2019 10/14/2019 10/15/2019 citalopram (CeleXA) tablet 40 mg 40 mg, Oral, DAILY, First dose on Sat10/13/19 at 0900, Until Discontinued, Routine 937 (Given - Provider: Maddie Vee RN) 904 (Given - Provider: Erlinda Munguia RN) 804 (Given - Provider: Erlinda Munguia RN) diphenhydrAMINE (BENADRYL) injection 12.5 mg (COMPLETED) 12.5 mg, Intravenous, ONCE, 1 dose, On Sat10/13/19 at 0915, Routine 0938 (Given - Provider: Maddie Vee RN) hydrOXYzine (Atarax) tablet 25 mg 25 mg, Oral, 3 TIMES DAILY WITH MEALS, First dose on Sat10/14/19 at 1730, Until Discontinued, Patient may refuse, Routine 1728 (Given - Provider: Erlinda Munguia RN) 0743 (Given - Provider: Erlinda Munguia RN)1221 (Given - Provider: Erlinda Munguia RN) indomethacin (Indocin) capsule 50 mg (CANCELED) 50 mg, Oral, 3 TIMES DAILY WITH MEALS, First dose (after last modification) on Sat10/13/19 at 0630, Until Discontinued, Routine 0539 (Given - Provider: Elsie Mcmillan RN) indomethacin (Indocin) capsule 50 mg 50 mg, Oral, 3 TIMES DAILY WITH MEALS, First dose on Sat10/14/19 at 1730, Until Discontinued, Routine 1728 (Given - Provider: Erlinda Munguia RN) 0743 (Given - Provider: Erlinda Munguia RN)1222 (Given - Provider: Erlinda Munguia RN) ketorolac (TORADOL) injection 15 mg (COMPLETED) 15 mg, Intravenous, ONCE, 1 dose, On Sat10/13/19 at 0915, STAT 0937 (Given - Provider: Maddie Vee RN) ketorolac (TORADOL) injection 15 mg (COMPLETED) 15 mg, Intravenous, ONCE, 1 dose, On Sat10/14/19 at 0945, STAT 0905 (Given - Provider: Erlinda Munguia RN) ketorolac (TORADOL) injection 15 mg (COMPLETED) 15 mg, Intravenous, ONCE, 1 dose, On Sat10/14/19 at 1430, STAT 1356 (Given - Provider: Erlinda Munguia RN) ketorolac (TORADOL) injection 15 mg (COMPLETED) 15 mg, Intravenous, ONCE, 1 dose, On Sat10/14/19 at 2100, STAT 2021 (Given - Provider: Osmar Cason RN) ketorolac (TORADOL) injection 15 mg (COMPLETED) 15 mg, Intravenous, ONCE, 1 dose, On Sat10/15/19 at 0230, STAT 0220 (Given - Provider: Osmar Cason, RADHA) lactated Ringers 1,000 mL IV bolus (COMPLETED) Intravenous, ONCE, 1 dose, On Sat10/13/19 at 0915 1003 (New Bag - Provider: Maddie Vee, RADHA) lisinopriL (Prinivil;Zestril) tablet 20 mg 20 mg, Oral, DAILY, First dose on Sat10/13/19 at 0900, Until Discontinued, Routine 0938 (Given - Provider: Maddie Vee, RADHA) 0905 (Given - Provider: Erlinda Munguia, RADHA) 0805 (Given - Provider: Erlinda Munguia, RADHA) LORazepam (Ativan) tablet 1 mg (COMPLETED) 1 mg, Oral, ONCE, 1 dose, On Sat10/15/19 at 0115, Routine 0115 (Hold - Provide r: Osmar Cason RN - Reason: See comment - Comment: pt is sleeping comfortably now)0133 (Given - Provider: Osmar Cason RN - Comment: pt woke up and had a panic attack) prochlorperazine (COMPAZINE) injection 10 mg (COMPLETED) 10 mg, Intravenous, ONCE, 1 dose, On Sat10/13/19 at 0915, Routine 0937 (Given - Provider: Maddie Vee RN) sodium chloride 0.9 % (flush) flush 3 mL 3 mL, Intravenous, EVERY 12 HOURS SCHEDULED, First dose on Sat10/12/19 at 2145, Until Discontinued, Routine 0944 (Given - Provider: Maddie Vee RN)2201 (Given - Provider: Molly Mitchell RN) 09 (Given - Provider: Erlinda Munguia, RADHA)2021 (Given - Provider: Osmar Cason RN) 08 (Given - Provider: Erlinda Munguia, RADHA) PRN Medication Order 10/13/2019 10/14/2019 10/15/2019 iohexoL (OMNIPAQUE) 350 mg/mL solution 0-200 mL (COMPLETED) 0-200 mL, Intravenous, ONCE PRN, 1 dose, Starting on Sat10/13/19 at 0815, Until Sat10/13/19 at 0815, Per Protocol, Warning Vesicant/Irritant Medication , Radiology Contrast, Routine 0815 (Given - Provider: Huan Villeda) LORazepam (ATIVAN) injection 1 mg (CANCELED) 1 mg, Intravenous, EVERY 6 HOURS PRN, Starting on Sat10/12/19 at 2046, Until Sat10/14/19 at 1634, Anxiety, Nausea, Vomiting, headache, If medication ordered subcutaneously, do not administer more than 2 mL as a single injection., Routine 1849 (Given - Provider: Carmencita Moreira RN) 0540 (Given - Provider: Molly Mitchell RN - Comment: for MCGARRY)1340 (Given - Provider: Erlinda Munguia, RN) prochlorperazine (Compazine) tablet 10 mg 10 mg, Oral, EVERY 6 HOURS PRN, Starting on Sat10/14/19 at 1630, Until Tayler 10/15/19 at 1505, Nausea, Vomiting, Nausea/Vomiting, If multiple antiemetics ordered, please use ondansetron first. If unable to take PO, may give IV., Routine sodium chloride 0.9 % (flush) flush 3 mL 3 mL, Intravenous, EVERY 1 MIN PRN, Starting on Sat10/12/19 at 1030, Until Tayler 10/15/19 at 1505, for flushes pre / post IV fluids or blood draws as needed, Routine 09 (Given - Provider: Maddie Vee RN) sodium chloride 0.9 % (flush) flush 5-20 mL 5-20 mL, Intravenous, EVERY 1 MIN PRN, Starting on Sat10/12/19 at 2046, Until Tayler 10/15/19 at 1505, flush, Flush pertains to all indwelling lines. Flush per protocol found in the job aid using the link provided on this medication record., Routine documented in this encounter Care Teams Electrical And Instrumentation Manager Relationship Specialty Start Date End Date Amada Carson [place] [address] PCP - General Family Medicine 08/28/18 01/21/20 documented as of this encounter
--- OUTSIDE RECORDS SUMMARY | 2024-01-13 18:56 | XMS_ITS | Encounter Summary ---
Author Organization [facility] Address [facility] [place] [address] Care Team Providers Care Casting Carrier Name Role Phone Amada Carson MD Primary Care Provider [phone] Reason for Visit * Reason Onset Date Comments Triage 10/27/2019 Encounter Details Date Type Department Care Team (Late st Contact Info) Description 10/27/2019 Telephone Primary Care at [facility] [address] [place] [place] [id number] Bozena Dietrich research mechanic Social History Tobacco Use Types Packs/Day Years [...] encounter Miscellaneous Notes * Telephone Encounter - Bozena Dietrich RN - 10/27/2019 9:06 AM EDT Matias called into triage to report abrupt behavior changes over past 3 days: lasting a few hours to a day, angry, throwing food, combative, no sleep in about one week, does not remember episodes. Was seen at neurology 10/23/19 Dr. Vance. Not currently on seizure meds. Discussed with Dr. Carson who states should call Dr. Vance's offce for next steps as this is outside of realm of PCP. If neurology defers to her, she is willing to see pt, however, neurology is appropriate to evaluate and guide. Advised Matias of the above, advised ED if he has any concerns about her or his safety. Matias verbalized understanding and agreement, will call neurology now. documented in this encounter Plan of Treatment [...] on filedocumented in this encounter Care Teams Casting Carrier Relationship Specialty Start Date End Date Amada Carson MD [address] [place] [place] [address] PCP - General Family Medicine 08/28/18 01/21/20 documented as of this encounter
--- OUTSIDE RECORDS SUMMARY | 2024-01-13 18:56 | XMS_ITS | Encounter Summary ---
Author Organization [facility] Address [facility] [place] [address] Care Team Providers Care Director Of Pharmacy Name Role Phone Amada Carson MD Primary Care Provider [phone] Encounter Details Date Type Department Care Team (Late st Contact Info) Description 10/14/2019 11:05 AM EDT Telehealth [place] [address] Psych, Telepsych None Social History Tobacco Use Types Packs/Day [...] on filedocumented in this encounter Care Teams Director Of Pharmacy Relationship Specialty Start Date End Date Amada Carson MD [address] [place] [address] PCP - General Family Medicine 08/28/18 01/21/20 documented as of this encounter
--- OUTSIDE RECORDS SUMMARY | 2024-01-13 18:56 | XMS_ITS | Encounter Summary ---
Author Organization [facility] [place] [address] Care Team Providers Care Oyster Planter Name Role Phone Amada Carson MD Primary Care Provider [phone] Encounter Details Date Type Department Care Team (Late st Contact Info) Description 10/15/2019 Telephone Primary Care at [facility] [address] [facility] [place] [phone] Ruth Gastelum RN Social History Tobacco Use [...] Telephone Encounter - Ruth Gastelum RN - 10/15/2019 3:16 PM EDT DAQUAN Stevens hospitalist called about patient. Patient has been admitted for what they are calling complicated migraine. They have been in contact with headache clinic and f/u with neurology on 10/16/19. They have started her on: hydrOXYzine (Atarax) 25 mg Tablet Take 1 tablet by mouth 3 times daily (with meals). prochlorperazine (Compazine) 10 mg Tablet Take 1 tablet by mouth every 6 hours as needed. indomethacin (INDOCIN) 50 mg Capsule TAKE 1 CAPSULE BY MOUTH THREE TIMES DAILY WITH MEALS If PCP has any questions: cell-[phone] documented in this encounter Plan of Treatment [...] on filedocumented in this encounter Care Teams Oyster Planter Relationship Specialty Start Date End Date Amada Carson MD [address] [place] [address] PCP - General Family Medicine 08/28/18 01/21/20 documented as of this encounter
--- OUTSIDE RECORDS SUMMARY | 2024-01-13 18:56 | XMS_ITS | Encounter Summary ---
Author Organization [facility] [place] [address] Care Team Providers Care Evp General Counsel Name Role Phone Amada Carson MD Primary Care Provider [phone] Reason for Visit * Reason Onset Date Comments Other 10/19/2019 Encounter Details Date Type Department Care Team (Late st Contact Info) Description 10/19/2019 Telephone Neurology at [address] [phone] Ashwini Major, DIRECTOR LOAN [facility] [place] [address] Other Social History Tobacco Use Types Packs/Day Years [...] encounter Miscellaneous Notes * Telephone Encounter - Dorita Horowitz - 10/19/2019 1:31 PM EDT Call Center / Information Lead - Message Provider Call to Neurology Caller: Ruth- nurse for Amada Carson MD Call back number: [phone] option 1, and ask for Amada Carson MD to be paged Ask caller if they want a message to be sent to either the nurse or the requested provider Message: Ruth is calling stating Amada Carson MD would like to speak with Ashwini Major in regards to this patient constantly being admitted to the emergency room for her fainting and complicated migraines, please call back to discuss. Disposition of Call: routine documented in this encounter Plan of Treatment [...] on filedocumented in this encounter Care Teams Evp General Counsel Relationship Specialty Start Date End Date Amada Carson MD [address] [place] [address] PCP - General Family Medicine 08/28/18 01/21/20 documented as of this encounter
--- OUTSIDE RECORDS SUMMARY | 2024-01-13 18:56 | XMS_ITS | Encounter Summary ---
Author Organization [facility] [place] [address] Care Team Providers Care Surgical Sales Representative Name Role Phone Amada Carson MD Primary Care Provider [phone] Encounter Details Date Type Department Care Team (Late st Contact Info) Description 10/30/2019 Telephone Neurology at [address] [phone] Ashwini Campuzano, MANAGED CARE ANALYST [facility] [place] [address] Social History Tobacco Use Types Packs/Day Years [...] encounter Miscellaneous Notes * Telephone Encounter - Mary Sewell RN - 10/30/2019 8:40 AM EDT INCOMING/OUTGOING TELEPHONE CALL NURSING DOCUMENTATION Kimberli Bales Matias called. Matias reports his 's symptoms are worse today. [facility] after admission on 10/27/19 for AMS. Matias reports her speech is rambling. She is writing all over things, her words are not making sense. She cut half of her hair off yesterday when we got home. My kids are scared. Matias reports Kimberli is not doing anything in the houseexcept wandering around. She wandered down by the road yesterday and [place] [address] [place] Matias says Kimberli was discharged on thorazine but he had difficulty getting it at the pharmacy dueto a shortage of the medication. She was switched to risperidal Recommendations are for Matias to bring Kimberli back to the emergency room for evaluation for worsening symptoms and safety concerns. Matias is in agreement with this plan. documented in this encounter Plan of Treatment [...] on filedocumented in this encounter Care Teams Surgical Sales Representative Relationship Specialty Start Date End Date Amada Carson MD [address] [place] [address] PCP - General Family Medicine 08/28/18 01/21/20 documented as of this encounter
--- OUTSIDE RECORDS SUMMARY | 2024-01-13 18:56 | XMS_ITS | Encounter Summary ---
Author Organization [facility] [place] [address] Care Team Providers Care Pipeline Welder Name Role Phone Amada Carson MD Primary Care Provider [phone] Reason for Visit * Reason Onset Date Comments Transitional Care Management 10/19/2019 Encounter Details Date Type Department Care Team (Latest Contact Info) Description 10/19/2019 Patient Outreach Primary Care at [facility] [address] [place] [id number] Ruth Gastelum, performing arts road manager Management Social History Tobacco Use Types Packs/Day Years [...] Telephone Encounter - Ruth Gastelum RN - 10/19/2019 8:43 AM EDT Post Hospital Discharge Call Transitional Care 10/19/2019 Date of Current Admission 10/12/2019 Facility APD APD Facilities APD Date of most recent discharge to home 10/15/2019 Person providing information: , inga Discharge Diagnosis complicated migraine Health Status: family aware Medication Reconciliation: New Medication started: Yes, hydroxyzine 25, compazine 10mg, dexamethasone 4 mg - started by [facility] specialist on 10/16/19 Discontinued Medication: Yes, emgality pen Adherence Issues: (financial/transportation): financial concerns Clarify Appointments: Assure that patient understands reason for followup appointments and contact information ??? PCP: Yes, 10/19/19 ??? Specialist: Yes, neuro - no appt set up yet, but called today ??? Diagnostic (lab/radiology) No Are coordination of discharge services (home care/DME/meals on wheels, example) needed? ?? No; if yes assure that patient understands reason for services and contact information and fill out information below ??? Name of agency n/a ??? Type of service n/a Action Plan - assure patient understands action plan ??? What to do if emergent symptoms occur discussed Yes ??? What to do if urgent symptoms occur discussed Yes ??? Plan ahead for your office visit by bringing in your written questions. ??? Bring list of all medications or bring in actual medications to each office visit. Discussed with patient availability of new service of Chronic Care Management (CCM) No Patient will discuss with provider at the upcoming hospital visit regarding need for chronic Care Management services. Advance directive: Is there one in the medical record No No: offered resources to assist in completing/asked for a copy to be added to medical record No documented in this encounter Plan of [...] as of this encounter Visit Diagnoses Diagnosis Anxiety Anxiety state, unspecified Altered mental status, unspecified altered mental status type Complicated migraine Migraine with aura, without mention of intractable migraine without mention of status migrainosus documented in this encounter Care Teams Pipeline Welder Relationship Specialty Start Date End Date Amada Carson MD [address] [place] [address] PCP - General Family Medicine 08/28/18 01/21/20 documented as of this encounter
--- OUTSIDE RECORDS SUMMARY | 2024-01-13 18:56 | XMS_ITS | Encounter Summary ---
Author Organization [facility] Address [facility] [place] [id number] Care Team Providers Care Administrator Health Care Facility Name Role Phone Amada Carson MD Primary Care Provider [phone] Reason for Visit * Consultation (Urgent) - Closed Specialty Diagnoses / Procedures Referred By Stacy t Referred To Contact Neurology Diagnoses Spells of decreased attentiveness Ashwini Campuzano APRN [facility] [place] [address] Eusebia Salguero MD [facility] [place] [address] Referral ID Status Reason Start Date Expiration Date V isits Requested Visits Authorized [id number] Closed Consult, Test & Treat 10/16/2019 10/15/2020 1 1 Encounter Details Date Type Department Care Team (Late st Contact Info) Description 10/23/2019 8:00 AM EDT Office Visit Neurology at [place] [phone] Octavio Vance MD [facility] [place] [address] Nonepileptic episode Social History Tobacco Use Types Packs/Day Years [...] Sign Reading Time Taken Comments Blood Pressure 126/72 10/23/2019 8:14 AM EDT Pulse - - Temperature - - Respiratory Rate - - Oxygen Saturation - - Inhaled Oxygen Concentration - - Weight - - Height 167.6 cm (5' 6) 10/23/2019 8:14 AM EDT Body Mass Index - - documented in this encounter Progress Notes * Octavio Vance MD - 10/23/2019 8:00 AM EDT Images from the original note were not included. [facility] COMPREHENSIVE EPILEPSY PROGRAM CLINIC NOTE - INITIAL VISIT DATE: 10/23/2019 CHIEF COMPLAINT: spells Referring physician: Ashwini Campuzano OUTREACH DIRECTOR [facility] [place] [address] Primary physician: Amada Carson MD [address] [place] [address] PRESENT ILLNESS: Kimberli Bales is a 33 y.o. right handed female who presents with a chief complaint of spells concerning for non-epileptic vs epileptic events. Outside records were request and were reviewed in detail. Seizure History: Kimberli is accompanied by her . She reports she did not have any spells until after August When she began a new headache injectable medication. She reports her headache worsened and changed incharacter from bifrontal to bi- occipital. Also there was an increase in leg, arm pain, especially on the left side. Around this time, she began having episodes, which she had never had, which were always preceded by severe pain. This would lead to her just not being able to do anything, dropping down, eyes rolling back, losing awareness. Her has witnessed multiple of these events. The patient is amnestic of the event, and only remembers feeling pain and not being able to do anything before hand. She reports that she is also able to hear everything around her once she has fallen to theground, but is not able to talk. Her reports this may last 2 minutes or sometimes 5 minutesbefore she can start responding again. She usually sleeps for a long time afterwards, but is responsive. The patient reports, she tries to sleep until the headache is gone. These events were occurring daily and multiple times a day in the past month. She has had frequent ED visits recently due to these spells and bad headaches. 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 More recently, she had a routine EEG on 10/09, where she had several typical events of loss of consciousness and without change in EEG. 10/12/19 Dr. Eusebia Salguero, epileptologist, consulted via telephone. Did not think video EEG was indicated but perhaps an outpatient eval in Seizure Clinic. From Dr. Salguero note: From what is reported this seems to be significant nonphysiologic symptomatology so that nonepileptic seizures also have to be considered. She was admitted to [facility] from 10/12/19 to 10/15/19. Her symptoms leading up to admission included headache, syncope, AMS . Her final diagnosis was complicated migraine. During this time she had an LP which showed an opening pressure of 4 cm H20, and unremarkable cell count, protein, and basic work up. She was discharge after feeling better with migraine abortive therapy. Of note, in the last few days the patient has stopped her indomethacine, hydroxyzine, and is on a dexamethasone taper. She reports feeling more tired, exhausted, irritable, and constantly itchy. She feels sore everywhere. She is not sleeping as well. Large passing out events have stopped in the past few days, she does report that her very bad headaches have improved a little. Current headaches start in the back of the neck, like a punching feeling, starts sometimes in her shoulders. Comes up to her head. The entire head hurts. Epilepsy Risk Factors: Complication of or early development:No Significant head trauma: Yes, got hit by a tailgate and had a LOC, about 12 years ago. Febrile convulsion in childhood: No History of Meningitis/Encephalitis: No Family history of epilepsy: No Brain tumor: No Stroke: No , left DVA/cav mal. Prior neurosurgery: No Driving Status: No Meds: Citalopram 40mg daily Lisinopril 20mg daily Dexamethasone taper No AEDs Side effects to the current antiepileptic medications are: None PRIOR ANTISEIZURE MEDICATION HISTORY: (And reason no longer on medications) None PREVIOUS EVALUATIONS: EEG Routine (10/10/2019): INTERPRETATION: This EEG is normal during the awake state as well as during the activation procedure of photic stimulation. No epileptiform correlates are observed with episodes of non-responsiveness. CLINICAL CORRELATION: Normal awake only EEG. The clinical events did not correspond to seizure activity. No epileptiform features observed. ?? A normal EEG does not, of itself alone, exclude epilepsy. ??If there is a high index of suspicion for epilepsy, consider a prolonged recording that captures sleep to increase the sensitivity of detecting abnormalities. CTA Head (10/13/2019): IMPRESSION 1. Unchanged head CT. No new intracranial abnormality. 6 mm left frontal cavernous malformation is unchanged compared to recent prior studies. 2. No evidence of large vessel occlusion or stenosis on CT angiogram of the head or neck. MRI Brain WWO Contrast and MRA (09/29/2019): MRI brain: There is a developmental venous anomaly in the lateral aspect of the left frontal lobe. There is a subjacent chronic [...] The marrow signal is within normal limits. ?? MRA head: No aneurysm, vascular malformation, significant arterial stenosis, cut off, or other significant arterial abnormality. ? 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 ?? MRA head: Normal study. MRI/MRV/MRA Brain (11/15/2017) IMPRESSION MRA head: Negative exam ?? MRV: Negative exam ?? MRI BRAIN: Focal signal abnormality in the left grimes radiata anteriorly with adjacent somewhat linear signal seen within the left anterior sylvian sulcus. Question small focal hemorrhage or vascular malformation. No flow related signal identified. Enhanced examination and susceptibility sequence may be helpful. Pertinent labs and AED levels: No results found for: KEPPRA No results found for: VALPROATE No results found for: LAMOTRIGINE No results found for: PHENYTOIN No results found for: FREEPHENY No results found for: CBMZ No results found for: MHCMETAB No results found for: ZONISAMIDE No results found for: LACOSAMIDE No results found for: TOPIRAMATE No results found for: TIAGABINE No results found for: FELBAMATE No components found for: PHENOBARBITAL No results found for: 25OHVITD No results found for: AMMONIA Past Medical History: Diagnosis Date ??? Abnormal cervical Papanicolaou smear 09/09/2018 ??? Diverticulosis of colon 09/09/2018 ??? Dysplasia of cervix 07/17/2006 ??? Dysuria 07/17/2006 episodes of dysuria and frequency but all negative cultures. If sx develop check Micro, TRANSMISSION REBUILDER or stone. ??? Environmental and seasonal allergies [...] JEFF performed by Genevieve Walsh MD at [facility] ??? PRO STABISMUS SURG,TWO HORIZ MUSCLE Right 02/01/2014 STRABISMUS SURGERY, TWO HORIZONTAL MUSCLES performed by Genevieve Walsh MD at [facility] ??? PRO STRABISMUS SURG,PLACE ADJUST SUTURE Right 12/31/2013 STRABISMUS SURGERY, PLACEMENT OF ADJUSTABLE SUTURES IN CONJUNCTION W/ ANOTHER SURGERY performed by Genevieve Walsh MD at [facility] ??? PRO STRABISMUS SURG,SCAR EXTRAOCUL MUSC Right 02/01/2014 STRABISMUS SURGERY WITH SCARRING OF EXTRAOCULAR MUSCLES IN CONJUNCTION W/ ANOTHER SURGERY performedby Genevieve Walsh MD at [facility] ??? SINUS SURGERY ??? TUBAL LIGATION Bilateral 04/24/2011 [facility]; Sherrell Schmidt MD ??? WISDOM TOOTH EXTRACTION N/A 07/01/2002 [facility] [place]; AILEEN RIVERA, LAUREN Current Medications listed in chart: Medications 10/19/19 1450 Medication Sig Taking? acetaminophen (Tylenol) 500 mg Tablet Take 1,000 mg by mouth every 6 hours as needed for Pain. fexofenadine/pseudoephedrine (JES-D 24 HOUR ORAL) Take 1 tablet by mouth as needed. dexamethasone (Decadron) 4 mg Tablet Day 1 & 2 take 2 tablet twice a day Day 3, 4, 5 & 6 take 1 tablet twice a day Day 7 & 8 1/2 tablet twice a day Day 9 & 10 1/2 tablet daily hydrOXYzine (Atarax) 25 mg Tablet Take 1 tablet by mouth 3 times daily (with meals). LORazepam (Ativan) 1 mg Tablet Take 1 tablet by mouth every 6 hours as needed for Anxiety. citalopram (CeleXA) 40 mg Tablet Take 1 tablet by mouth once daily lisinopriL (Prinivil;Zestril) 20 mg Tablet Take 1 tablet by mouth daily. ELDERBERRY FRUIT ORAL Take 1 gummy by mouth as needed (Cold season only). .med Allergies Allergen Reactions ??? Oxycodone-Acetaminophen Shortness Of Breath ??? Red Dye Other (See Comments) Stops heart Family History Problem Relation Age of Onset [...] Hx ??? Cancer Neg Hx Social History Socioeconomic History ??? Marital status: [...] Types: Cigarettes Quit date: 10/17/2017 Years since quittin.0 ??? Smokeless tobacco: Never Used Substance and [...] Social History Narrative ??? 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 REVIEW OF SYSTEMS: NEUROLOGICAL: See HPI. GENERAL: No weight loss, malaise or fevers, no recent febrile illness HEENT: Negative for frequent or significant headaches, no changes in hearing or vision, no nose bleeds or other nasal problems NECK: Negative for lumps, goiter, pain and significant neck swelling RESPIRATORY: Negative for cough, wheezing and shortness of breath CARDIOVASCULAR: Negative for chest pain, leg swelling and palpitations GI: Negative for abdominal discomfort, blood in stools or black stools and change in bowel habits : Negative for dysuria, frequency and incontinence MUSCULOSKELETAL: Negative for joint pain or swelling, back pain, and muscle pain. SKIN: Negative for lesions, rash, and itching. PSYCH: Patient denies any current depression (anhedonia, sleep problems, poor energy, appetite changes, hopelessness/worthlessness, SI/HI), hallucinations/delusions, manic symptoms, anxiety, panic attacks, PTSD symptoms SLEEP: Negative for insomnia, excessive daytime sleepiness, confusional episodes at night HEMATOLOGY/LYMPHOLOGY Negative for prolonged bleeding, bruising easily, and swollen nodes. ENDOCRINE: Negative for cold or heat intolerance, polyuria, polydipsia and goiter. The remainder of the review of systems is negative. EXAMINATION: BP 126/72 Ht 167.6 cm (5' 6) LMP 01/18/2014 BMI 52.31 kg/m?? GENERAL APPEARANCE: The patient is well appearing and in no apparent distress. HEENT: There are no facial dysmorphic features. The head is atraumatic and normocephalic. The mucous membranes are moist. SKIN: The patient had a diffuse erythematous rash with raised borders on bilateral thighs along herunderwear line. NECK: The neck is supple and non-tender. LUNGS: Clear to auscultation bilaterally. CARDIOVASCULAR: Regular rate and rhythm. No murmur or carotid bruit. ABDOMEN: The abdomen is benign, soft, flat, non-tender, no masses, normal bowel sounds. SPINE: The spine is nontender to palpation. She was tender in the muscles around the neck, and occipital region. EXTREMITIES: Normal, warm, no cyanosis or clubbing. No edema and nontender. NEUROLOGICAL EXAMINATION: MENTAL STATUS: The patient is alert and oriented times three. There is normal speech and language function. CRANIAL NERVES: The pupils are equal, round and reactive to light and accommodation. The visual ling were intact to confrontation. The extraocular movements were normal. There was no evidence for facial asymmetry. Hearing was normal bilaterally and the tongue and palate were in the midline. Sterno cleidomastoid and upper trapezius strength was normal. MOTOR: Muscle tone examination showed normal tone and bulk within the upper and lower extremities. Muscle strength testing revealed 5/5 power within the upper and lower extremities on the right, however on the left she had significant give-way weakness. Deep tendon reflexes were 2/4 throughout. Theplantar reflex was flexor bilaterally. SENSORY: Normal light touch, proprioception, pin-prick and vibration sense. COORDINATION: There was no evidence for postural or action tremor. There was no dysmetria seen on hqzlod-dgtg-ganukd or heel to salazar testing. Rapid alternating movements were normal bilaterally. The Romberg test was negative. GAIT: The gait was normal. Assessment: Kimberli Bales is a 33 y.o. right handed female whose presentation and findings are consistent with a diagnosis of psychogenic non-epileptic events . She had her typical events of prolonged unresponsiveness and eyes rolling back recorded on a 60 minute EEG on 10/10/2019 without any change in EEG. Given the severity of her clinical event, I would have expected to see epileptiform change on the EEG. Also, clinical history of her feeling intense head pain prior to her events, followed by being able to hear but not speak while they are occur is less likely to be epileptic. 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 If she were to have an epileptic seizure, or epileptiform discharges on EEG concordant with this lesion, I would be more inclined to treat her with anti-seizure medication due to the high risk of epilepsy with cavernous malformation after a single seizure. It is however recommended to not start prophylactic ASD on cavernomas. I discussedwith the patient and her , I thought it was unlikely for this cavernoma to be the cause of her headache (and shifting symptoms), although not entirely impossible, and also does not fit with her symptoms of left arm and leg pain. We discussed the diagnosis of non-epileptic events, likely related to hypersensitivity or overreaction to pain. We discussed that it was reassuring that she has stopped having very severe headaches the last few days and no episodes of passing out in three days. She does not however like the dexameth asone. We discussed that starting clean slate with headache medications and keeping a headache log/diary may be empowering for her (e.g., biofeedback). People with non-epileptic events typically get better, but it may take time. It is reassuring that she has only had them for a brief amount of timeand it seems directly related to worsening headaches and change in headache characteristics around the time of starting Emgality and she should probably stop this medication and work with her headache doctors for other treatment. If she were to continue to have psychogenic non-epileptic events, cognitive behavioral therapy with a psychologist or psychiatrist may be helpful. I told them to call if they have new episodes concerning for seizures or change in symptom characteristics. She may need prolonged video EEG to capture new types of episodes. Of note, the patient has had a rash in her inner thighs for several days which has worsened. No newmedications were started, with exception of dexamethasone. This appeared to be more consistent witha fungal or bacterial type infection. I told her she should call her PCP for treatment recommendations. The following tests were ordered: N/A Medication Regimen: No seizure medications prescribed Kimberli was scheduled for a return visit in 3 months. Epilepsy Classification: Psychogenic non-epileptic events Semiologic Seizure Classification: Dialeptic (loss of awareness, unresponsiveness) ILAE Seizure Classification: N/A Etiology: N/A, worsening headaches, also has L frontal incidental cavernoma. Seizure frequency: daily, but not in the past three days. Related Condition: migraine Risks, benefits, alternatives and side effects of the management were discussed in detail. The following specific issues were discussed: no driving restrictions from an epilepsy standpoint, however she should avoid driving until she is sure she is no longer having episodes of passing out or loss of awareness related to headaches/migraines. We discussed waiting at least 4 weeks to make sure that she is no longer having these episodes. Kimberli agreed to the plan. I spent 60 minutes in this visit, with 35 minutes devoted to patient counseling. Octavio Vance MD [facility] Epilepsy Program Department of Neurology documented in this encounter Plan of Treatment Scheduled Referrals Name Type Priority Associated Diagnoses Orde r Schedule Referral to Neurology Outpatient Referral Routine Spells of decreased attentiveness Ordered: 10/16/2019 documented as of this encounter Goals Goal [...] as of this encounter Visit Diagnoses Diagnosis Nonepileptic episode Other convulsions documented in this encounter Care Teams Administrator Health Care Facility Relationship Specialty Start Date End Date Amada Carson MD [address] [place] [address] PCP - General Family Medicine 08/28/18 01/21/20 documented as of this encounter
--- OUTSIDE RECORDS SUMMARY | 2024-01-13 18:56 | XMS_ITS | Encounter Summary ---
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 pretty smart, but not smart enough to devise a plan to get me out. I'm sad because I don't know when I'm going home. Please don't take my (toy) horse. What damage could I do to myself with a horse, give myself hand foot and hoof disease? Suicide Risk Factors on Day of ED Presentation: Enduring Factors: chronic mental health problems, limited coping skills, poor emotional regulation and impulsive or aggressive tendenancies Dynamic Factors: access to firearms Protective Factors: family and community support, engaged in medical and/or mental health care and future orientation Access to Firearms: Yes confirmed locked Other Psychiatric History: Prior diagnoses: Anxiety, r/o Dissociative disorder, r/o derealization, r/o conversion disorder Past hospitalization and location: 10/27/2019, neuropsych assessment completed with no significant findings Suicide attempt details: denies Past psychiatric medications: Citalopram Lorazepam hydroxyzine Substance Use History/Treatment: Denies substance use/abuse, I don't even know the last time I drank, maybe July-...probably when we were camping. You have to be careful when it's in your DNA, grandfather was an alcoholic. states she has been smoking a CBD thing that may include marijuana. Outpatient Medications: Current Facility-Administered Medications on File Prior to Encounter Medication Dose Route Frequency Provider Last Rate Last Dose ??? [DISCONTINUED] chlorproMAZINE (Thorazine) tablet 25 mg 25 mg Oral QAM Luciano Up, DO 25 mg at 10/29/19 0655 ??? [DISCONTINUED] chlorproMAZINE (Thorazine) tablet 25 mg 25 mg Oral Daily at Noon Luciano Up, DO 25 mg at 10/29/19 1152 ??? [DISCONTINUED] chlorproMAZINE (Thorazine) tablet 25 mg 25 mg Oral QPM Luciano Up, DO 25 mg at 10/28/19 1738 ??? [DISCONTINUED] lisinopriL (Prinivil;Zestril) tablet 20 mg 20 mg Oral Daily Roosevelt Joseph MD 20 mg at 10/29/19 0857 ??? [DISCONTINUED] sodium chloride 0.9 % (flush) flush 5 mL 5 mL Intravenous BID Genoveva Joseph MD 5 mL at 10/29/19 0857 ??? [DISCONTINUED] sodium chloride 0.9 % (flush) flush 5-20 mL 5-20 mL Intravenous Q1 Min PRN Roosevelt Joseph MD ??? [DISCONTINUED] lidocaine (XYLOCAINE) 10 mg/mL (1 %) injection 3 mg 0.3 mL Subcutaneous Once PRNDRoosevelt garcia MD ??? [DISCONTINUED] enoxaparin (LOVENOX) injection 40 mg 40 mg Subcutaneous Nightly Roosevelt Joseph MD 40 mg at 10/28/192026 ??? [DISCONTINUED] melatonin tablet 6 mg 6 mg Oral Nightly PRN Roosevelt Joseph MD Current Outpatient Medications on File Prior to Encounter Medication Sig Dispense Refill ??? chlorproMAZINE (Thorazine) 25 mg Tablet Take 1-4 tablets by mouth 3 times daily. Day 1-5, take 25/25/50mg. Day 5-10, take 25/50/75mg. Day 11-15, take 50/50/75mg. After Day 15, take 50/50/100mg. 360 tablet 0 ??? risperiDONE (RisperDAL) 1 mg Tablet Take 0.5 tablets in the morning, 0.5 tablets in the afternoon, and 1 tablet in the evening. 10 tablet 0 ??? acetaminophen (Tylenol) 500 mg Tablet Take 1,000 mg by mouth every 6 hours as needed for Pain. ??? citalopram (CeleXA) 40 mg Tablet Take 1 tablet by mouth once daily 90 tablet 3 ??? lisinopriL (Prinivil;Zestril) 20 mg Tablet Take 1 tablet by mouth daily. 90 tablet 3 Allergies: Allergies Allergen Reactions ??? Oxycodone-Acetaminophen Shortness Of Breath ??? Red Dye Other (See Comments) Stops heart Problem List: Patient Active Problem List Diagnosis Code ??? Exotropia H50.10 ??? Neurological deficit present R29.818 ??? Anxiety F41.9 ??? 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 Menorrhagia N92.0 ??? Idiopathic intracranial hypertension G93.2 ??? Hypertension I10 ??? Obstructive sleep apnea G47.33 ??? Class 3 severe obesity due to excess calories with serious comorbidity and body mass index (BMI) of 50.0 to 59.9 in adult E66.01, Z68.43 ??? AMS (altered mental status) R41.82 ??? Complicated migraine G43.109 ??? Altered mental status R41.82 Past Medical/Surgical History: Past Medical History: Diagnosis Date ??? Abnormal cervical Papanicolaou smear 09/09/2018 ??? Diverticulosis of colon 09/09/2018 ??? Dysplasia of cervix 07/17/2006 ??? Dysuria 07/17/2006 episodes of dysuria and frequency but all negative cultures. If sx develop check Micro, CRIPPLE CUTTER or stone. ??? Environmental and seasonal allergies [...] JEFF performed by Genevieve Walsh MD at [facility] ??? PRO STABISMUS SURG,TWO HORIZ MUSCLE Right 02/01/2014 STRABISMUS SURGERY, TWO HORIZONTAL MUSCLES performed by Genevieve Walsh MD at [facility] ??? PRO STRABISMUS SURG,PLACE ADJUST SUTURE Right 12/31/2013 STRABISMUS SURGERY, PLACEMENT OF ADJUSTABLE SUTURES IN CONJUNCTION W/ ANOTHER SURGERY performed by Genevieve Walsh MD at [facility] ??? PRO STRABISMUS SURG,SCAR EXTRAOCUL MUSC Right 02/01/2014 STRABISMUS SURGERY WITH SCARRING OF EXTRAOCULAR MUSCLES IN CONJUNCTION W/ ANOTHER SURGERY performedby Genevieve Walsh MD at [facility] ??? SINUS SURGERY ??? TUBAL LIGATION Bilateral 04/24/2011 [facility]; Sherrell Schmidt MD ??? WISDOM TOOTH EXTRACTION N/A 07/01/2002 [facility] [place]; AILEEN RIVERA, LAUREN Family Medical/Psychiatric History: I'm a mom. I get up in the morning and get the girls ready for school. Kristin and Kirstie. I get them ready for school and then I bring them to school. Then take care of the dog and the house. Do the laundry and the groceries and the mail. to Inga for 12 years, he's my person and he's not here, I need to get home, I'm not normally out this late. Daughters are 8 and 9. Social History: Lives with in [place], as well as two kids. 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 Hasbeen filling time with sleeping. Vitals (24hr Range): Patient Vitals for the past 24 hrs: Temp Heart Rate From SP02 Pulse Resp BP SpO2 10/30/19 0933 36.8 ??C (98.2 ??F) 85 bpm 86 23 132/70 97 % 10/30/19 1030 -- -- -- -- (!) 127/98 -- Musculoskeletal System: unable to assess, pt in bed for entirety of interview Mental Status Exam: Appearance: age appropriate and casually dressed Behavior: cooperative with interview, guarded at timesrestless and good eye contact Speech: At times loud, at other times soft, normal rhythm, nonprofane Language: fluent in sami Mood: I need to go home. I don't know why I'm here. Affect: tearful Thought Process: linear and concrete Associations: intact Thought Content: denied homicidal ideation, denied suicidal ideation, no bizarre delusions and no paranoid delusions Perception: denied auditory hallucinations denied visual hallucinations not observed responding to internal stimuli + reports of derealization Orientation: grossly intact by interview Attention/Concentration: distractable Cognition: grossly intact by interview Memory: recent and remote memory grossly intact Fund of Knowledge: unable to assess, WNL at baseline per Insight: limited Judgment: limited Wish to be : In the last 30 days, have you wished you were or wished you could go to sleepand not wake up?: No (10/30/191003) Suicidal Thoughts: Have you had any actual thoughts of killing yourself?: No (10/30/191003) Suicide Behavior Question: Have you ever done anything, started to do anything, or prepared to do anything to end your life?: No (10/30/191003) Labs: Psychiatry Labs (Last 24 hours): Preg: No results found for: HCGQUAL, HCGQUANT Heme: Lab Results Component Value Date WBC 10.8 (H) 10/30/2019 HGB 12.8 10/30/2019 HCT 39.6 10/30/2019 PLATELET 313 10/30/2019 MCV 90.8 10/30/2019 NEUTROABS 7.82 (H) 10/30/2019 No results found for: HA1C, SEDRATE Chem: Lab Results Component Value Date NA 140 10/30/2019 K 3.8 10/30/2019 CL 100 10/30/2019 CO2 25 10/30/2019 BUN 7 (L) 10/30/2019 GLUCOSE 109 10/30/2019 Lab Results Component Value Date CALCIUM 10.0 10/30/2019 LFTs: Lab Results Component Value Date ALT 45 (H) 10/30/2019 AST 16 10/30/2019 ALKPHOS 62 10/30/2019 BILITOT 0.5 10/30/2019 Coags: No results found for: PTT, PT, INR Thyroid: No results found for: TSH, B2VRMMI, TT4 Lipids and HgbA1C: No results found for: CHLPL, HDL, CHOLHDL, LDLCHOL, LDLDIRECT, TRIG No results found for: HA1C Vit Lvls: No results found for: EHHTHRZY50, SFOLATE UA: Lab Results Component Value Date GLUCOSEU Negative 10/30/2019 KETONESUA Negative 10/30/2019 PROTEINUADIP Negative 10/30/2019 BLOODUADIP Negative 10/30/2019 LEUKOESTERUA Negative 10/30/2019 NITRATEUA Negative 10/30/2019 (May not represent most recent UA results. See eD-H labs for more details.) Tox: Lab Results Component Value Date ETHANOL <100 10/30/2019 No results found for: UDAUSCREEN Rx Lvls: No results found for: LITHIUM, CARBAMAZEPIN, VALPROATE, LAMOTRIGINE, CLOZAPINE Assessment: (including Suicide Risk Assessment) From 10/27/19: Kimberli Bales is a 33 y.o. 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 Neuro has conducted a full workup and has cleared. Pt describes approx 1 hour long episodes of dreamlike state, lacks memory afterwards, and increased irritability for the last three days, although on collateral it seems these episodes have been going on formuch longer. She denies any prior trauma, substance use, AVH, ideas of reference or other delusional content, as well as SI/HI. Primary psychiatric etiology of blackout episodes is likely, conversiondisorder vs new onset of psychosis vs behavioral, although this presentation would be atypical for psychosis. Recommend psychotherapy specifically CBT for treatment of dissociative episodes. Note that there are no overt psychotic symptoms and pt is not observed responding to internal stimuli but patient does relate oddly, and had some strange behavior such as speaking with single words (saying home! meaning I want to go home) which may be consistent with very early onset psychosis but unlikely at this time. Current Suicide Assessment: Compared to general population increased due to chronic mental health condition, compared to inpatient psychiatry population low due to no current, or history of, suicidalideation. Diagnosis: r/o trauma-induced dissociative disorder Plan: Patient is making increasingly unsafe choices at home (cutting hair, wandering in the road) and is willing to complete IEA petition paperwork. PT CANNOT LEAVE against medical advice. PT meets criteria for involuntary hospitalization. is in support of this plan. PT MUST BE ASSESSED BY PSYCHIATRY before any decrease in supervision. # Suicide Risk Mitigation Denies SI/HI/SIB at this time Pt to be maintained in ED in low ligature risk room with sitter observing until a higher level of care is identified. There is a gun in the home, at meeting 10/27/19, Dr. Wells made the recommendation to keep locked and inaccessible to pt Signed By: HORACE Mejia 10/30/2019 documented in this encounter Plan of Treatment Scheduled Referrals Name Type Priority Associated Diagnoses Orde r Schedule Referral to Neurology Outpatient Referral Routine Acute delirium Ordered: 10/31/2019 documented as of this encounter Goals Goal [...] Procedure Name Priority Date/Time Associated Diagnosis Comments RAPID DRUG SCREEN, URINE STAT 10/30/2019 11:23 AM EDT RAPID DRUG SCREEN W/O CONFIRMATION, URINE STAT 10/30/2019 11:23 AM EDT URINALYSIS WITH REFLEX CULTURE STAT 10/30/2019 11:22 AM EDT HEMOGRAM STAT 10/30/2019 11:14 AM EDT DIFFERENTIAL, AUTOMATED STAT 10/30/2019 11:14 AM EDT GOLD TUBE HOLD STAT 10/30/2019 11:14 AM EDT BLUE TUBE HOLD STAT 10/30/2019 11:14 AM EDT HC CBC,PLT & AUTO DIFF STAT 10/30/2019 11:14 AM EDT HC LIPASE STAT 10/30/2019 11:14 AM EDT HC ALCOHOL, BLOOD STAT 10/30/2019 11: 14 AM EDT HEPATIC FUNCTION PANEL STAT 10/30/2019 11:14 AM EDT BASIC METABOLIC PANEL STAT 10/30/2019 11:14 AM EDT POCT URINE STAT 10/30/2019 documented in this encounter Results * (ABNORMAL) Rapid Drug Screen w/o Confirmation, Urine (10/30/2019 11:23 AM EDT) Pathologist [facility] Barbiturates Screen, Urine None Detected None Detected [facility] Comment: The barbiturate screen detects barbiturates at concentrations >200 ng/mL. Note: Not all barbiturates cross-react equally with antibody used in this screen. A ? Presumptive Positive? result indicates that the screening result was positive but has not yet been confirmed by a highly-specific method. As with any screen, occasional false positive results from cross-reacting substances may occur. Not for Medico-Legal Purposes. Benzodiazepines Screen, Urine None Detected None Detected [facility] Comment: The benzodiazepines screen detects benzodiazepines at concentrations >100 ng/mL. Not all benzodiazepines cross-react equally with antibody used in this screen. Due to the low dosage of clonazepam, false negatives may be obtained due to low concentration of clonazepam metabolites. A ? Presumptive Positive? result indicates that the screening result was positive but has not yet been confirmed by a highly-specific method. As with any screen, occasional false positive results from cross-reacting substances may occur. Not for Medico-Legal Purposes. Cocaine Screen, Urine None Detected None Detected [facility] Comment: The cocaine metabolites screen detects benzoylecgonine (Cocaine Metabolite) at concentrations >150 ng/mL. A ? Presumptive Positive? result indicates that the screening result was positive but has not yet been confirmed by a highly-specific method. As with any screen, occasional false positive results from cross-reacting substances may occur. Not for Medico-Legal Purposes. Methadone Metabolites Screen, Urine None Detected None Detected [facility] Comment: The methadone metabolite screen detects EDDP (major methadone metabolite) at concentrations >100 ng/mL. A ? Presumptive Positive? result indicates that the screening result was positive but has not yet been confirmed by a highly-specific method. As with any screen, occasional false positive results from cross-reacting substances may occur. Not for Medico-Legal Purposes. Opiate Screen, Urine None Detected None Detected [facility] Comment: The opiates screen detects opiates at concentrations >300 ng/mL. Please note that oxycodone, oxymorphone, fentanyl, tramadol, and other synthetic opioids are not detected by the opiate screen. A ? Presumptive Positive? result indicates that the screening result was positive but has not yet been confirmed by a highly-specific method. As with any screen, occasional false positive results from cross-reacting substances may occur. Not for Medico-Legal Purposes. Cannabinoid Screen, Urine Presumptive Pos(A) None Detected [facility] Comment: The marijuana metabolites screen detects the THC metabolite (30-xfn-3-carboxy-delta 9-THC) at concentrations >20 ng/mL. A ? Presumptive Positive? result indicates that the screening result was positive but has not yet been confirmed by a highly-specific method. As with any screen, occasional false positive results from cross-reacting substances may occur. Not for Medico-Legal Purposes. Oxycodone Screen, Urine None Detected None Detected [facility] Comment: The oxycodone screen detects oxycodone and oxymorphone at concentrations >100 ng/mL. A ? Presumptive Positive? result indicates that the screening result was positive but has not yet been confirmed by a highly-specific method. As with any screen, occasional false positive results from cross-reacting substances may occur. Not for Medico-Legal Purposes. Buprenorphine Screen, Urine None Detected None Detected [facility] Comment: The buprenorphine screen detects buprenorphine at concentrations >5 ng/mL. A ? Presumptive Positive? result indicates that the screening result was positive but has not yet been confirmed by a highly-specific method. As with any screen, occasional false positive results from cross-reacting substances may occur. Not for Medico-Legal Purposes. Fentanyl Screen, Urine None Detected None Detected [facility] Comment: The fentanyl screen detects fentanyl at concentrations >2 ng/mL. A ? Presumptive Positive? result indicates that the screening result was positive but has not yet been confirmed by a highly-specific method. As with any screen, occasional false positive results from cross-reacting substances may occur. Not for Medico-Legal Purposes. Tricyclics Screen, Urine Presumptive Pos(A) None Detected [facility] Comment: The tricyclics screen detects tricyclic antidepressants at concentrations >150 ng/mL. Not all tricyclics cross-react equally with the antibody used in this screen. A ? Presumptive Positive? result indicates that the screening result was positive but has not yet been confirmed by a highly-specific method. As with any screen, occasional false positive results from cross-reacting substances may occur. Not for Medico-Legal Purposes. Ethanol Screen, Urine None Detected None Detected [facility] Comment:This urine ethanol a ssay detects ethanol at concentrations >/= 100 mg/L. Amphetamines Screen, Urine None Detected None Detected [facility] Comment: The amphetamine screen detects d-amphetamine and d-methamphetamine at concentrations >300 ng/mL. A ? Presumptive Positive? result indicates that the screening result was positive but has not yet been confirmed by a highly-specific method. As with any screen, occasional false positive results from cross-reacting substances may occur. Not for Medico-Legal Purposes. Adulterants Screen, Urine None Detected None Detected [facility] Comment: No adulteration or dilution of this urine sample was detected. All urine samples submitted for urine drugs of abuse analysis are tested for creatinine concentration, pH, and for the presence of oxidants, nitrites, and chromate. Urine specimen (specimen) 10/30/2019 11:23 AM EDT 10/30/2019 12:15 PM EDT Narrative Resulting Agency Comment Spec In Lab Marcela Adames MD CHEMISTRY ORDERABLE S [facility] [place] [address] * Rapid Drug Screen, Urine (JENNIFER Request) (10/30/2019 11:23 AM EDT) JENNIFER Conf Requested No [facility] JENNIFER Requested See Comment [facility] Comment:Refer to Rapid Drug Screen w/o Confirmation, Urine for results. Urine specimen (specimen) 10/30/2019 11:23 AM EDT 10/30/2019 12:15 PM EDT Narrative Resulting Agency Comment Spec In Lab Marcela Adames MD URINE ORDERABLES [facility] [place] [address] * Urinalysis with reflex Culture (10/30/2019 11:22 AM EDT) Glucose, Urine Dipstick Negative Negative mg/dL [facility] Protein, Urine Dipstick Negative Negative mg/dL [facility] Bilirubin, Urine Dipstick Negative Negative mg/dL [facility] Comment: Clinical correlation required for positive Urine Bilirubin results as false positive may occur with some drugs and drug related products. If a false positive is suspected a serum total bilirubin should be considered if clinically indicated. Urobilinogen, Urine Dipstick Normal Normal mg/dL [facility] pH, Urn (dipstick) 5.5 5.0 - 8.0 [facility] Blood, Urine Dipstick Negative Negative mg/dL [facility] Ketone, Urine Dipstick Negative Negative mg/dL [facility] Nitrite, Urine Dipstick Negative Negative [facility] Leukocytes, Urine Dipstick Negative Negative [facility] Appearance, Urine Dipstick Clear Clear [facility] Specific [place] Urine Automated 1.017 1.006 - 1.030 [facility] Color, Urine Dipstick Yellow Yellow [facility] Reflex to Culture No [facility] Urine specimen (specimen) 10/30/2019 11:22 AM EDT 10/30/2019 12:15 PM EDT Narrative Resulting Agency Comment Spec In Lab Marcela Adames MD URINE ORDERABLES Performing Organization Address City/[facility]/ZIP Co de Phone Number [facility] [place] [address] * Gold Tube HOLD (10/30/2019 11:14 AM EDT) Gold Hold Sample in lab. [facility] Blood specimen (specimen) Venous Draw / Unknown 10/30/2019 11:14 AM EDT 10/30/2019 11:22 AM EDT Marcela Adames MD CHEMISTRY ORDERABLE S Performing Organization Address City/[facility] Co de Phone Number [facility] [place] [address] * Blue Tube HOLD (10/30/2019 11:14 AM EDT) Blue Hold Sample in lab. [facility] Blood specimen (specimen) Venous Draw / Unknown 10/30/2019 11:14 AM EDT 10/30/2019 11:23 AM EDT Marcela Adames MD HEMATOLOGY ORDERABL ES Performing Organization Address City/[facility]/ZIP Co de Phone Number [facility] [place] [address] * (ABNORMAL) Differential, Automated (10/30/2019 11:14 AM EDT) Neutrophil % 72.6 % [facility] Neutrophil Absolute 7.82(H) 1.70 - 6.10 x10(3)/mc L [facility] Lymph % 18.9 % [facility] Lymphocytes Abs 2.0 0.9 - 3.2 x10(3)/mc L [facility] Monocyte % 7.1 % [facility] Monocyte Abs 0.8 0.3 - 0.9 x10(3)/[facility] Eos % 0.6 % [facility] Eosinophils Abs 0.1 0.0 - 0.4 x10(3)/[facility] Basophil % 0.2 % [facility] Baso Absolute 0.0 0.0 - 0.1 x10(3)/[facility] Immature Gran % 0.60 % [facility] Comment: Immature granulocytes(IG's)percentage and absolute count will include metamyelocytes, myelocytes, and promyelocytes. Blood smears from CBCs yielding IG's will be scanned manually for concordance. If this scan disagrees with the automated IG or if promyelocytes are noted, a manual differential will be performed. Immature Gran Absolute 0.07(H) 0.00 - 0.04 x10(3)/[facility] Blood specimen (specimen) 10/30/2019 11:14 AM EDT 10/30/2019 11:22 AM EDT Narrative Resulting Agency Comment Spec In Lab Marcela Adames MD HEMATOLOGY ORDERABL ES [facility] [place] [address] * (ABNORMAL) Hemogram (10/30/2019 11:14 AM EDT) White Blood Cell 10.8(H) 4.0 - 9.5 x10(3)/[facility] Red Blood Cell 4.36 4.00 - 5.21 x10(6)/[facility] Hemoglobin 12.8 11.7 - 15.5 gm/dL [facility] Hematocrit 39.6 35.7 - 45.8 % [facility] Mean Cell Volume 90.8 82.6 - 94.4 fL [facility] Mean Cell Hemoglobin 29.4 27.1 - 32.0 pg [facility] Mean Cell Hemoglobin Concentration 32.3 31.7 - 35.0 gm/dL [facility] Platelet 313 145 - 357 x10(3)/mc L [facility] RDW Standard Deviation 42.5 37.0 - 46.0 [facility] RDW coefficient of variation 12.8 11.5 - 14.1 % [facility] Mean Platelet Volume 9.5 7.6 - 12.9 [facility] NRBC% auto 0.0 % [facility] NRBC Absolute 0.000 0.000 - 0.000 x10(3)/mc L [facility] Blood specimen (specimen) 10/30/2019 11:14 AM EDT 10/30/2019 11:22 AM EDT Narrative Resulting Agency Comment Spec In Lab Marcela Adames MD HEMATOLOGY ORDERABL ES Performing Organization Address [facility] Co de Phone Number [facility] [place] [address] * Ethanol Level (10/30/2019 11:14 AM EDT) Pathologist [facility] Ethanol <100 <=99 mg/L [facility] Comment: Greater than 800 mg/L (0.08%) should be considered intoxicated. 3400 to 4500 mg/L (0.34 - 0.45%) is considered severe intoxication. Greater than 5500 mg/L (0.55%) is usually fatal. Blood specimen (specimen) 10/30/2019 11:14 AM EDT 10/30/2019 11:22 AM EDT Narrative Resulting Agency Comment Spec In Lab Marcela Adames MD CHEMISTRY ORDERABLE S Performing Organization Address City/[facility]/ZIP Co de Phone Number [facility] [place] [address] * Lipase (10/30/2019 11:14 AM EDT) Lipase 21 0 - 60 unit/L [facility] Blood specimen (specimen) 10/30/2019 11:14 AM EDT 10/30/2019 11:22 AM EDT Narrative Resulting Agency Comment Spec In Lab Marcela Adames MD CHEMISTRY ORDERABLE S [facility] [place] [address] * (ABNORMAL) Basic Metabolic Panel (non-fasting) (10/30/2019 11:14 AM EDT) Glucose 109 65 - 199 mg/dL [facility] Comment:Diabetes: >=200 mg/d L plus symptoms Blood Urea Nitrogen 7(L) 8 - 18 mg/dL [facility] Creatinine 0.65(L) 0.70 - 1.20 mg/dL [facility] Sodium 140 135 - 145 mmol/L [facility] Potassium 3.8 3.5 - 5.0 mmol/L [facility] Comment: Please note: ??Patients with WBC >100,000 may have falsely elevated Potassium levels. ??For accurate Potassium quantification in these patients send serum separator tube (gold top) for subsequent determinations. ??Contact the Clinical Chemistry Laboratory if there are any questions. Chloride 100 98 - 107 mmol/L [facility] Carbon Dioxide 25 22 - 31 mmol/L [facility] Anion Gap 15 5 - 15 mmol/L [facility] Calcium 10.0 8.5 - 10.5 mg/dL [facility] Est Glomerular Filtration Rate 115 >=60 mL/min/1. 73 m?? [facility] Comment: The eGFR was calculated using the CKD-EPI equation. As with all creatinine based estimates of kidney function, eGFR values calculated with the CKD-EPI equation are not accurate in patients with acute kidney failure, extremes of body mass or the acutely ill. http://CausePlay/DHMCnkf eGFR 133 >=60 mL/min/1. 73 m?? [facility] Comment: The eGFR was calculated using the CKD-EPI equation. As with all creatinine based estimates of kidney function, eGFR values calculated with the CKD-EPI equation are not accurate in patients with acute kidney failure, extremes of body mass or the acutely ill. [email or web address]://BAUNAT.Cleeng/[email or web address] Blood specimen (specimen) 10/30/2019 11:14 AM EDT 10/30/2019 11:22 AM EDT Narrative Resulting Agency Comment Spec In Lab Marcela Adames MD CHEMISTRY ORDERABLE S Performing Organization Address City/[facility]/ZIP Co de Phone Number [facility] [place] [address] * (ABNORMAL) Hepatic Function Panel (10/30/2019 11:14 AM EDT) [facility] Protein, Total 7.2 6.1 - 8.0 gm/dL [facility] Albumin 4.2 3.2 - 5.2 gm/dL [facility] Aspartate Aminotransferase 16 0 - 30 unit/L [facility] Alanine Aminotransferase 45(H) 0 - 30 unit/L [facility] Alkaline Phosphatase 62 35 - 105 unit/L [facility] Bilirubin, Total 0.5 0.2 - 1.3 mg/dL [facility] Bilirubin, Direct 0.1 0.0 - 0.3 mg/dL [facility] Blood specimen (specimen) 10/30/2019 11:14 AM EDT 10/30/2019 11:22 AM EDT Narrative Resulting Agency Comment Spec In Lab Marcela Adames MD CHEMISTRY ORDERABLE S Performing Organization Address [facility]/ZIP Co de Phone Number [facility] [place] [address] * POCT urine (10/30/2019) POC Urine HCG Negative Negative - Negative POC Control Internal Controls Acceptable 10/30/2019 Marcela Adames MD POINT OF CARE TEST ORDERABLES documented in this encounter Visit Diagnoses Diagnosis Acute delirium- Primary Other alteration of consciousness Transient alteration of awareness Psychosis, unspecified psychosis type documented in this encounter Administered Medications Inactive Administered Medications - up to 3 most recent administrations Medication Order MAR Action Action Date Dose Rate Site LORazepam (ATIVAN) 2 mg/mL injection 1 dose, Starting on Sat10/30/19 at 1022, Until Sat10/30/19 at 1023, DARREL JONES: cabinet override LORazepam (ATIVAN) injection 1 mg 1 mg, Intravenous, EVERY 2 HOURS PRN, Starting on Sat10/30/19 at 1023, Until 10/31/19 at 1911, Anxiety, May repeat one time if anxiety not relieved in 30 minutes., Routine LORazepam (ATIVAN) injection 1 mg 1 mg, Intramuscular, EVERY 2 HOURS PRN, Starting on Sat10/30/19 at 1023, Until 10/31/19 at 1911, Anxiety, May repeat one time if anxiety not relieved in 30 minutes., Routine Given 10/31/2019 5:00 AM EDT 1 mg Given 10/30/2019 9:19 PM EDT 2 mg LORazepam (ATIVAN) injection 2 mg 2 mg, Intravenous, ONCE, 1 dose, On Sat10/30/19 at 1023, Routine Given 10/30/2019 10:23 AM EDT 2 mg Left Arm LORazepam (Ativan) tablet 1 mg 1 mg, Sublingual, EVERY 2 HOURS PRN, Starting on Sat10/30/19 at 1023, Until 10/31/19 at 1911, Anxiety, May repeat one time if anxiety not relieved in 30 minutes., Routine LORazepam (Ativan) tablet 2 mg 2 mg, Oral, EVERY 2 HOURS PRN, Starting on Sat10/30/19 at 1023, Until 10/31/19 at 1911, Anxiety, May repeat one time if anxiety not relieved in 30 minutes., Routine risperiDONE (RisperDAL) tablet 0.5 mg 0.5 mg, Oral, 2 TIMES DAILY, First dose on Sat10/30/19 at 2200, Until Discontinued, DO NOT SPLIT, CRUSH OR OPEN, Routine Given 10/31/2019 10:21 AM EDT 0.5 mg documented in this encounter Active and Recently Administered Medications Times are shown in EDT. Scheduled Medication Order 10/29/2019 10/30/2019 10/31/2019 LORazepam (ATIVAN) injection 2 mg (COMPLETED) 2 mg, Intravenous, ONCE, 1 dose, On Sat10/30/19 at 1023, Routine 1023 (Given - Provider: Vanda Wright LPN - Comment: Administered IM d/t no IV access) risperiDONE (RisperDAL) tablet 0.5 mg 0.5 mg, Oral, 2 TIMES DAILY, First dose on Sat10/30/19 at 2200, Until Discontinued, DO NOT SPLIT, CRUSH OR OPEN, Routine 220 (Not Given - Provider: Anay Peng RN - Reason: Patient/family refused) 1021 (Given - Provider: Isadora Alexander RN) PRN Medication Order 10/29/2019 10/30/2019 10/31/2019 LORazepam (ATIVAN) injection 1 mg(Linked Group 1) 1 mg, Intravenous, EVERY 2 HOURS PRN, Starting on Sat10/30/19 at 1023, Until 10/31/19 at 1911, Anxiety, May repeat one time if anxiety not relieved in 30 minutes., Routine 2118 (See Alternative - Provider: Anay Peng RN) 050 (See Alternative - Provider: Aissatou Aguiar, RADHA) LORazepam (ATIVAN) injection 1 mg(Linked Group 1) 1 mg, Intramuscular, EVERY 2 HOURS PRN, Starting on Sat10/30/19 at 1023, Until 10/31/19 at 1911, Anxiety, May repeat one time if anxiety not relieved in 30 minutes., Routine 2118 (Given - Provider: Anay Peng RN - Comment: per Dr. Horowitz's verbal order) 050 (Given - Provider: Aissatou Aguiar, RADHA) LORazepam (Ativan) tablet 1 mg(Linked Group 1) 1 mg, Sublingual, EVERY 2 HOURS PRN, Starting on Sat10/30/19 at 1023, Until 10/31/19 at 1911, Anxiety, May repeat one time if anxiety not relieved in 30 minutes., Routine 2118 (See Alternative - Provider: Anay Peng RN) 050 (See Alternative - Provider: Aissatou Aguiar RN) LORazepam (Ativan) tablet 2 mg(Linked Group 1) 2 mg, Oral, EVERY 2 HOURS PRN, Starting on Sat10/30/19 at 1023, Until 10/31/19 at 1911, Anxiety, May repeat one time if anxiety not relieved in 30 minutes., Routine 2118 (See Alternative - Provider: Anay Peng RN) 0500 (See Alternative - Provider: Aissatou Aguiar RN) Linked Groups Order Group 1: LORazepam (Ativan) tablet 2 mgJump to med 2 mg, Oral, EVERY 2 HOURS PRN, Starting on Sat10/30/19 at 1023, Until 10/31/19 at 1911, Anxiety, May repeat one time if anxiety not relieved in 30 minutes., Routine Or LORazepam (Ativan) tablet 1 mgJump to med 1 mg, Sublingual, EVERY 2 HOURS PRN, Starting on Sat10/30/19 at 1023, Until 10/31/19 at 1911, Anxiety, May repeat one time if anxiety not relieved in 30 minutes., Routine Or LORazepam (ATIVAN) injection 1 mgJump to med 1 mg, Intravenous, EVERY 2 HOURS PRN, Starting on Sat10/30/19 at 1023, Until 10/31/19 at 1911, Anxiety, May repeat one time if anxiety not relieved in 30 minutes., Routine Or LORazepam (ATIVAN) injection 1 mgJump to med 1 mg, Intramuscular, EVERY 2 HOURS PRN, Starting on Sat10/30/19 at 1023, Until 10/31/19 at 1911, Anxiety, May repeat one time if anxiety not relieved in 30 minutes., Routine documented in this encounter Care Teams Supervisor Special Services Relationship Specialty Start Date End Date Amada Carson MD [address] [place] [address] PCP - General Family Medicine 08/28/18 01/21/20 documented as of this encounter
--- OUTSIDE RECORDS SUMMARY | 2024-01-13 18:56 | XMS_ITS | Encounter Summary ---
Author Organization [facility] [place] [address] Care Team Providers Care Graphics Intern Name Role Phone Amada Carson MD Primary Care Provider [phone] Reason for Visit * Reason Comments Migraine Loss of Consciousness Encounter Details Date Type Department Care Team (Late st Contact Info) Description 10/19/2019 1:45 PM EDT Office Visit Primary Care at [facility] [address] [place] [id number] Amada Carson MD [address] [place] [address] Complicated migraine Social History Tobacco Use Types [...] Sign Reading Time Taken Comments Blood Pressure 110/80 10/19/2019 2:05 PM EDT Pulse 71 10/19/2019 1:46 PM EDT Temperature - - Respiratory Rate - - Oxygen Saturation 98% 10/19/2019 1:46 PM EDT Inhaled Oxygen Concentration - - Weight - - Height - - Body Mass Index - - documented in this encounter Progress Notes * Amada Carson MD - 10/19/2019 1:45 PM EDT Chief Complaint: Migraine and Loss of Consciousness Subjective: HPI: Kimberli Bales is a 33 y.o. female who presents to primary care for Migraine and Loss of Consciousness Patient states her body hurts all over. Still having same headaches. N/V. ER wanted PCP to follow on blood sugar. She is accompanied by her . Patient was also in ED on 10/17/19 for complicated migraine. See records below. HPI Kimberli is a 33 y.o. female who presents to the primary care office today to follow up on a recent hospital discharge. She is accompanied by her . Admission date: 10/12/19 Discharge date: 10/15/19 Diagnosis for admission:Disposition: Home Transitional Care 10/19/2019 Date of Current Admission 10/12/2019 Facility [facility] Date of most recent discharge to home 10/15/[address] [facility] from 10/12/19 to 10/15/19. Her symptoms leading up to admission included headache, syncope, AMS . Her final diagnosis was complicated migraine. Discharge disposition: Home Since discharge, she has been feeling poorly. She has still been losing consciousness periodically,but it is becoming less frequent (now about twice per day). The headache is still severe, and she feels exhausted Result Date: 10/17/2019 EXAMINATION: CT HEAD WO CONTRAST (GENERIC) CLINICAL HISTORY: No acute intracranial hemorrhage or mass effect. Ct Cervical Spine Wo Contrast Result Date: 10/17/2019 No acute cervical spine fractures. Outpatient Medications Marked as Taking for the 10/19/19 encounter (Office Visit) with Amada Carson MD Medication Sig Dispense Refill ? ? dexamethasone (Decadron) 4 mg Tablet Day 1 & 2 take 2 tablet twice a day Day 3, 4, 5 & 6 take 1 tablet twice a day Day 7 & 8 1/2 tablet twice a day Day 9 & 10 1/2 tablet daily 20 tablet 0 ??? hydrOXYzine (Atarax) 25 mg Tablet Take 1 tablet by mouth 3 times daily (with meals). 90 tablet 12 ??? citalopram (CeleXA) 40 mg Tablet Take 1 tablet by mouth once daily 90 tablet 3 ??? lisinopriL (Prinivil;Zestril) 20 mg Tablet Take 1 tablet by mouth daily. 90 tablet 3 Allergies Allergen Reactions ??? Oxycodone-Acetaminophen Shortness Of Breath ??? Red Dye Other (See Comments) Stops heart ROS: Review of Systems Constitutional: Positive for fatigue. Negative for fever. Musculoskeletal: Negative for neck pain. Neurological: Positive for syncope and weakness. Psychiatric/Behavioral: Negative for dysphoric mood. The patient is not nervous/anxious. Objective: VS: BP 110/80 (BP Location (NBP): Left arm, Patient Position: Standing, BP Cuff Sizes: Large Adult (32-43 cm)) Pulse 71 LMP 01/18/2014 SpO2 98% Physical Exam Constitutional: General: She is not in acute distress. HENT: Right Ear: External ear normal. Left Ear: External ear normal. Nose: Nose normal. Eyes: Conjunctiva/sclera: Conjunctivae normal. Cardiovascular: Rate and Rhythm: Normal rate and regular rhythm. Pulmonary: Effort: Pulmonary effort is normal. Skin: Findings: No rash. Neurological: Cranial Nerves: No cranial nerve deficit. Coordination: Coordination normal. Psychiatric: Behavior: Behavior normal. Assessment and Plan: Problem List Items Addressed This Visit Complicated migraine I spoke with Ashwini Campuzano MD (patient's headache neurologist). Kimberli is stopping emgality. She has been referred for an EEG, although neurology feels that the syncope is likely not due to seizures. Dr. Campuzano said that she plans to follow up with Kimberli every two weeks until her symptoms improve. The syncope also does not to be of cardiac origin. Orthostatic vitals show that her blood pressure actually increases with orthostatic change. I have been able to examine her right after syncope in the past, and no cardiac arrhythmia noted. Discussed that stress and migraines can both make each other worse. Even though stress/anxiety/depression may not have been the cause of the migraines, being in chronic pain and unable to function will make those things worse, and they will in turn make the migraines worse. New Prescriptions No medications on file Modified Medications No medications on file Discontinued Medications None documented in this encounter Plan of Treatment [...] migrainosus documented in this encounter Care Teams Graphics Intern Relationship Specialty Start Date End Date Amada Carson MD [address] [place] [address] PCP - General Family Medicine 08/28/18 01/21/20 documented as of this encounter
--- OUTSIDE RECORDS SUMMARY | 2024-01-13 18:56 | XMS_ITS | Encounter Summary ---
Author Organization [facility] [place] [address] Care Team Providers Care Business Analytics Manager Name Role Phone Amada Carson MD Primary Care Provider [phone] Encounter Details Date Type Department Care Team (Late st Contact Info) Description 10/12/2019 Telephone Neurology at [address] [phone] Ashwini Major, [employer] [facility] [place] [address] Social History Tobacco Use Types Packs/Day Years [...] Telephone Encounter - Mary Sewell RN - 10/15/2019 11:08 AM EDT INCOMING/OUTGOING TELEPHONE CALL NURSING DOCUMENTATION Call made to Bree Salcedo . Kimberli is being discharged from [facility] hospital today after being admitted on 10/11 for her migraines, blacking out and seizure like symptoms . Matias statesher migraines are more in control and toradol has helped. He reports Kimberli has been sleeping a lot while in the hospital. Recommendations are for Kimberli to follow up with Ashwini Major in theheadache clinic. Follow up is scheduled tomorrow at 9:00 am with Ashwini. * Telephone Encounter - Dorita Horowitz - 10/15/2019 10:50 AM EDT christy Salcedo is calling back in regards to this stating this patient needs to see Dr. Major in regards to her severe headaches that she is currently admitted for at [facility] with the severe headaches and passing out stating he's been trying to get a hold of Dr. Major all week as well as the[facility] doctors have and are waiting to hear back on what to do from here. Please call back to discuss. [phone] * Telephone Encounter - Mary Sewell RN - 10/12/2019 10:36 AM EDT INCOMING/OUTGOING TELEPHONE CALL NURSING DOCUMENTATION Call made to Kimberli. Her Farhan answered the phone stating Kimberli is currently in theemergency room at [facility]. Farhan states she had been having severe migraines and passing out at home and no one is taking this seriously. Farhan states Kimberli was in the [place] room twice this past weekend at [facility] [place] and was told it it was all in her head. She was sent home Saturday after a normal EEG. Kimberli was given compazine, benadryl, tylenol and IVF fluids Saturday before being discharged. Farhan states Kimberli will not be leaving the hospital until a cause is found for her passing out. Bree will call the headache clinic for follow up when released from the hospital. documented in this encounter Plan of Treatment [...] on filedocumented in this encounter Care Teams Business Analytics Manager Relationship Specialty Start Date End Date Amada Carson MD [address] [place] [address] PCP - General Family Medicine 08/28/18 01/21/20 documented as of this encounter
--- OUTSIDE RECORDS SUMMARY | 2024-01-13 18:56 | XMS_ITS | Encounter Summary ---
Author Organization [facility] [place] [address] Care Team Providers Care Credit Controller Name Role Phone Amada Carson MD Primary Care Provider [phone] Encounter Details Date Type Department Care Team (Late st Contact Info) Description 10/29/2019 [place] [address] Phani Maravilla MD [facility] [address] NEUROLOGY DEPT [place] [id number] Social History Tobacco Use Types Packs/Day Years [...] encounter Miscellaneous Notes * Telephone Encounter - Phani Maravilla MD - 10/29/2019 5:00 PM EDT Telephone Encounter Note - 10/29/2019 5:09 PM Caller: Farhan () Caller reported that there was no Thorazine available in outpatient pharmacies in [place] ([facility] [place] Their preferred pharmacy ([facility]) will reportedly have the medication in stock tomorrow night. I have also checked with our pharmacy in [facility] and on the main campus, and Thorazine is not available there either. After discussing with Dr. Coleman, we will switch to risperidone (0.5/0.5/1mg TID). I will tablets to give 5 days of available coverage while Thorazine arrives. CC: Timur Maravilla MD Neurology, PGY-4 10/29/2019 N.B. Since we have not evaluated this patient, this is not an official consultation and we are not stating that a specific treatment decision is correct or incorrect. documented in this encounter Plan of Treatment [...] on filedocumented in this encounter Care Teams Credit Controller Relationship Specialty Start Date End Date Amada Carson MD [address] [place] [address] PCP - General Family Medicine 08/28/18 01/21/20 documented as of this encounter
--- OUTSIDE RECORDS SUMMARY | 2024-01-13 18:56 | XMS_ITS | Encounter Summary ---
[place] [address] Care Team Providers Care Movable Bulkhead Installer Name Role Phone Amada Carson MD Primary Care Provider [phone] Reason for Referral * Consultation (Urgent) - Duplicate Referral Specialty Diagnoses / Procedures Referred By Contac t Referred To Contact Neurology Diagnoses Syncope, unspecified syncope type Acute intractable headache, unspecified headache type Altered mental status, unspecified altered mental status type Complicated migraine Amada Carson MD [address] [place] [address] [facility] [address] [place] [phone] Referral ID Status Reason Start Date Expiration Date Visits Requested Visits Authorized [id number] Duplicate Referral Specialty Service Requested 10/19/2019 10/18/2020 1 1 Encounter Details Date Type Department Care Team (Late st Contact Info) Description 10/19/2019 Telephone Primary Care at [facility] Ang[facility] [address] [facility] [place] [address] Ruth Gastelum, RN Social History Tobacco Use Types Packs/Day [...] Miscellaneous Notes * Telephone Encounter - Martha Glasgow - 10/19/2019 2:[address] Carson spoke with Neurology about this patient * Telephone Encounter - Martha Glasgow - 10/19/2019 1:53 PM EDT Was going to call them, when they called in to have Dr. Carson paiged * Telephone Encounter - Ruth Gastelum RN - 10/19/2019 1:36 PM EDT Since patient saw [facility] neurology, she has been to ED again and told to f/u with PCP today. Pt scheduled and neuro referral sent in as urgent. CSRs asked to call for scheduling. documented in this encounter Plan of Treatment Scheduled Referrals Name Type Priority Associated Diagnoses Orde r Schedule Referral to Neurology Outpatient Referral Routine Syncope, unspecified syncope type Acute intractable headache, unspecified headache type Altered mental status, unspecified altered mental status type Complicated migraine Ordered: 10/19/2019 documented as of this encounter Goals Goal [...] as of this encounter Visit Diagnoses Diagnosis Syncope, unspecified syncope type Acute intractable headache, unspecified headache type Altered mental status, unspecified altered mental status type Complicated migraine Migraine with aura, without mention of intractable migraine without mention of status migrainosus documented in this encounter Care Teams Movable Bulkhead Installer Relationship Specialty Start Date End Date Amada Carson MD [address] [place] [address] PCP - General Family Medicine 08/28/18 01/21/20 documented as of this encounter
--- OUTSIDE RECORDS SUMMARY | 2024-01-13 18:56 | XMS_ITS | Encounter Summary ---
Author Organization [facility] [place] [address] Care Team Providers Care Lightout Examiner Name Role Phone Amada Carson MD Primary Care Provider [phone] Reason for Visit * Reason Onset Date Comments Other 10/15/2019 Encounter Details Date Type Department Care Team (Late st Contact Info) Description 10/15/2019 Telephone Neurology at [address] [phone] Ashwini Campuzano, PERSONAL SECURITY SPECIALIST [facility] [place] [address] Other Social History Tobacco Use Types Packs/Day [...] Notes * Telephone Encounter - Dorita Horowitz Bella - 10/15/2019 11:26 AM EDT Call Center/[place] [facility] Check Caller and relationship (if other than patient): Dr. Henderson[facility] Call back number: [phone]- Matias Ok to leave a message: yes Reason for call: Patient needs a Hospital Check [facility] was [facility] What provider did patient see while admitted: Dr. Rodney Henderson Was provider seeing patient a Resident: no Admission date: 10/12/19 Discharge date: 10/15/19 Time frame of when patient needs to be seen: LAMINE Disposition of call: Routine message to [employer] Receptionist: x documented in this encounter Plan of Treatment [...] on filedocumented in this encounter Care Teams Lightout Examiner Relationship Specialty Start Date End Date Amada Carson MD [address] [place] [address] PCP - General Family Medicine 08/28/18 01/21/20 documented as of this encounter
--- OUTSIDE RECORDS SUMMARY | 2024-01-13 18:56 | XMS_ITS | Encounter Summary ---
Author Organization [facility] [address] Care Team Providers Care Peoplesoft Functional Analyst Name Role Phone Amada Carson MD Primary Care Provider [phone] Encounter Details Date Type Department Care Team (Late st Contact Info) Description 10/19/2019 Telephone Neurology at [address] [phone] Ashwini Campuzano, BATCH ROOM TECHNICIAN [facility] [place] [address] Social History Tobacco Use Types Packs/Day Years [...] * Telephone Encounter - Kavya Briseno - 10/19/2019 2:20 PM EDT Please move pt's 11-11 appointment up to around 10/29 documented in this encounter Plan of Treatment [...] on filedocumented in this encounter Care Teams Peoplesoft Functional Analyst Relationship Specialty Start Date End Date Amada Carson MD [address] [place] [address] PCP - General Family Medicine 08/28/18 01/21/20 documented as of this encounter
--- OUTSIDE RECORDS SUMMARY | 2024-01-13 18:56 | XMS_ITS | Encounter Summary ---
Author Organization [facility] Address [facility] [place] [address] Care Team Providers Care Pulverizer Operator Name Role Phone Amada Carson MD Primary Care Provider [phone] Reason for Visit * Reason Comments Loss of Consciousness Headache Encounter Details Date Type Department Care Team (Late st Contact Info) Description 10/11/2019 1:47 PM EDT - 10/11/2019 6:20 PM [place]T [place] [id number] Janet Atkins MD [facility] [place] [address] Nonintractable headache, unspecified chronicity pattern, unspecified headache type Discharge Disposition: Home Social History Tobacco [...] Sign Reading Time Taken Comments Blood Pressure 126/64 10/11/2019 6:08 PM EDT Pulse 68 10/11/2019 6:08 PM EDT Temperature 36.5 ??C (97.7 ??F) 10/11/2019 1:53 PM ED T Respiratory Rate 16 10/11/2019 6:08 PM EDT Oxygen Saturation 98% 10/11/2019 6:08 PM EDT Inhaled Oxygen Concentration - - Weight - - Height - - Body Mass Index - - documented in this encounter Discharge Instructions * Discharge Instructions* Rocael Armas MD - 10/11/2019 5:39 PM EDT You are seen in the emergency department for concerns about your headache. You should contact your primary care physician and your neurology team to let them know that you are in the emergency department arrange appropriate follow-up. If you experience any change or increase in your headache, vision changes, weakness, numbness or any other concerns please not hesitate to seek immediate medical attention. * Attachments The following attachments cannot be sent through Care Everywhere. * Headache (Northern Irish) documented in this encounter Medications at Time of Discharge Medication Sig Dispensed Refills Start Date End Date indomethacin (INDOCIN) 50 mg Capsule TAKE 1 CAPSULE BY MOUTH THREE TIMES DAILY WITH MEALS 90 capsule 3 08/31/2019 10/19/2019 galcanezumab-gnlm (Emgality Pen) 120 mg/mL Pen Injector Inject 120 mg subcutaneously every 30 days. 1 mL 11 08/17/2019 10/15/2019 citalopram (CeleXA) 40 mg Tablet Take 1 tablet by mouth once daily 90 tablet 3 05/18/2019 11/12/2019 lisinopriL (Prinivil;Zestril) 20 mg TabletIndications:Es sential hypertension Take 1 tablet by mouth daily. 90 tablet 3 03/30/2019 01/21/2020 documented as of this encounter ED Notes * Jagdeep Garcia RN - 10/11/2019 3:22 PM EDT Assumed care of pt, awaiting provider. NAD noted. 1700- Pt resting with eyes closed. MCGARRY 8/10. Pt given message spouse called. 1800- pt tolerated po fluids and food. MCGARRY improved. Ambulatory without difficulty. A&Ox3, gcs 15. * Rocael Armas MD - 10/11/2019 2:15 PM EDT Kimberli Bales is an 33 y.o. female who presents to the ED with: Chief Complaint Patient presents with ??? Loss of Consciousness ??? Headache I saw this patient 10/11/2019 at ~ 11:21 PM HPI Kimberli Bales is a 33 y.o. female with a PMH significant for hemicrania continua, intracranialhypertension (but no documented pressure of >25), and ELMA. who presents to the Emergency Department with complaints of headache. According the patient she states that she has had this headache forthe past 4 days. The patient states that he was seen in the emergency department last night where she was told that there is nothing wrong with her that there is nothing that can be done for her and was told to go home. Patient states that when she came home from hospital last night she had an uncontrollable bowel movement. Patient states that this morning she thinks that she lost consciousness for a little bit due to the pain. Patient denies any injuries but states that she does have some slight numbness in the left foot which is been present for several weeks. The patient states that she has a long history of headaches and is on indomethacin 3 times a day. The patient states that in addition to this she took Excedrin twice a day but has not resolved her pain. The patient states that every time the pain decreases her anxiety increases. Social History Socioeconomic History ??? Marital status: Spouse name: Farhan Bales ??? Number of children: 2 ??? Years of education: 12 ??? Highest education level: None Occupational History ??? 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 Financial resource strain: None ??? Food insecurity Worry: None Inability: None ??? Transportation needs Medical: None Non-medical: None Tobacco Use ??? Smoking status: Former Smoker [...] Lifestyle ??? Physical activity Days per week: None Minutes per session: None ??? Stress: None Relationships ??? Social connections Talks on phone: None Gets together: None Attends jewish service: None Active member of club or organization: None Attends meetings of clubs or organizations: None Relationship status: None ??? Intimate partner violence Fear of current or ex partner: None Emotionally abused: None Physically abused: None Forced sexual activity: None Other Topics Concern ??? Abuse or Threat: [...] Not Asked ??? Weight Concern Not Asked Social History Narrative ??? None Review of Systems: Review of Systems Constitutional: Negative for chills, fatigue and fever. HENT: Negative for trouble swallowing and voice change. Eyes: Negative for photophobia and visual disturbance. Respiratory: Negative for cough, chest tightness and shortness of breath. Cardiovascular: Negative for chest pain and palpitations. Gastrointestinal: Negative for abdominal pain, diarrhea, nausea and vomiting. Genitourinary: Negative for dysuria and flank pain. Musculoskeletal: Negative for neck pain and neck stiffness. Skin: Negative for rash and wound. Neurological: Positive for syncope and headaches. Negative for dizziness, seizures, facial asymmetry and numbness. Psychiatric/Behavioral: Negative for confusion and decreased concentration. Vital Signs: Patient Vitals for the past 24 hrs: BP Temp Temp src Pulse Resp SpO2 10/11/19 1808 126/64 -- -- 68 16 98 % 10/11/19 1700 -- -- -- 74 -- -- 10/11/19 1545 130/68 -- -- 70 18 97 % 10/11/19 1445 117/64 -- -- 74 18 95 % 10/11/19 1430 (!) 137/94 -- -- 81 10 98 % 10/11/19 1415 124/65 -- -- 80 16 97 % 10/11/19 1400 132/71 -- -- 80 17 95 % 10/11/19 1353 137/81 36.5 ??C (97.7 ??F) Oral 84 18 96 % I have reviewed the vital signs, which demonstrates Physical Exam: Physical Exam Constitutional: General: She is not in acute distress. Appearance: Normal appearance. She is not ill-appearing. HENT: Head: Normocephalic and atraumatic. Eyes: Conjunctiva/sclera: Conjunctivae normal. Pupils: Pupils are equal, round, and reactive to light. Neck: Musculoskeletal: Normal range of motion and neck supple. Cardiovascular: Rate and Rhythm: Normal rate and regular rhythm. Pulmonary: Effort: Pulmonary effort is normal. No respiratory distress. Breath sounds: Normal breath sounds. Abdominal: General: Abdomen is flat. Tenderness: There is no abdominal tenderness. Musculoskeletal: General: No swelling or tenderness. Skin: General: Skin is warm and dry. Capillary Refill: Capillary refill takes less than 2 seconds. Neurological: General: No focal deficit present. Mental Status: She is alert and oriented to person, place, and time. Psychiatric: Mood and Affect: Mood normal. Behavior: Behavior normal. ED Course: - Patient was evaluated and discussed with Dr. Atkins - Medications, allergies and past medical history reviewed - Nursing notes and vital signs reviewed - Medications and fluid administered: Medications sodium chloride 0.9% 1,000 mL IV bolus ( Intravenous Stopped 10/11/19 1622) prochlorperazine (COMPAZINE) injection 10 mg (10 mg Intravenous Given 10/11/19 1552) diphenhydrAMINE (BENADRYL) injection 25 mg (25 mg Intravenous Given 10/11/19 1553) acetaminophen (Tylenol) tablet 1,000 mg (1,000 mg Oral Given 10/11/19 1552) - I have reviewed the labs, which are significant for: No results found for this or any previous visit (from the past 24 hour(s)). - I have reviewed the imaging, which is significant for: No orders to display Assessment and Plan: MDM: Kimberli Bales is a 33 y.o. female with a PMH significant for hemicrania continua, intracranialhypertension (but no documented pressure of >25), and ELMA. Present hemodynamically stable no signs of acute distress. The patient has presented with complaints similar to those that she has had on her several previousemergency department visits. The patient has had recent imaging of her head including a CT and MRI which both showed no explanations for her head pain. Patient also recently had imaging of her left foot with a left foot x-ray which was normal. The patient's complaints and exam showed no new or concerning features as well as no focal neurological deficits. The patient complained of musculoskeletal pain in the back of her head and neck. The patient was given Tylenol, Benadryl, Compazine and a liter of IV fluid. Upon reevaluation the patient states that her headache had improved and she felt comfortable to be discharged home. The patient has a neurology team which she states she will contact in order to follow-up for her chronic headaches. The patient additionally was told to contact her primary care physician to let them know that she was in the emergency department to arrange appropriate follow-up. The patient was told if she experiences any change or increase in headaches, vision changes, weakness, numbness, or any other concerns do not hesitate to seek immediate medical attention. Return precautions were verbally discussed with the patient. The patient expressed understanding that they could come back to the ED at any time and agreed to the follow-up plan. Plan: - Discharge home - Follow up with PCP - Return precautions were discussed with the pt Rocael Armas MD EM Resident, PGY-2 10/11/19 11:21 PM Rocael Armas MD Resident 10/11/19 9541 Associated attestation - Janet Atkins MD - 10/12/2019 3:22 PM EDT ED ATTENDING ATTESTATION NOTE The patient was seen in conjunction with Dr. Armas, the resident physician. I have independentlyperformed the kimball portions of the history and physical exam. I have reviewed the nursing notes, vital signs, and all diagnostic studies personally including labs, imaging studies and EKGs. I have discussed the details of the case with the resident and agree with the assessment and plan as describedin the resident note unless noted otherwise. Brief Summary: very thorough workup over the past 2 weeks. [place] much better after medsi in the ED. No meningismus, no red flag sx and has had imaging recently. Agree with plan. documented in this encounter Plan of [...] as of this encounter Visit Diagnoses Diagnosis Nonintractable headache, unspecified chronicity pattern, unspecified headache type documented in this encounter Administered Medications Inactive Administered Medications - up to 3 most recent administrations Medication Order MAR Action Action Date Dose Rate Site acetaminophen (Tylenol) tablet 1,000 mg 1,000 mg, Oral, ONCE, 1 dose, On 10/11/19 at 1539, Maximum dose of acetaminophen is 4000 mg from all sources in 24 hours. When ordered for pain, acetaminophen should be given even when other ordered pain medications are indicated. , STAT Given 10/11/2019 3:52 PM EDT 1,000 mg diphenhydrAMINE (BENADRYL) injection 25 mg 25 mg, Intravenous, ONCE, 1 dose, On 10/11/19 at 1539, STAT Given 10/11/2019 3:53 PM EDT 25 mg lidocaine (LIDODERM) 5 % patch 1 patch 1 patch, Transdermal, EVERY 24 HOURS, First dose on 10/11/19 at 1539, Until Discontinued, Apply patch(es) for 12 hours, and then remove for 12 hours, Routine Patch Applied 10/11/2019 3:53 PM EDT 1 patch 05- Back Upper (Left) lidocaine (LIDODERM) 5 %(700 mg/patch) Patch Removal Transdermal, EVERY 24 HOURS, First dose on 10/12/19 at 0338, Until Discontinued, Remove lidocaine 5 %(700 mg/patch) patch prochlorperazine (COMPAZINE) injection 10 mg 10 mg, Intravenous, ONCE, 1 dose, On 10/11/19 at 1539, STAT Given 10/11/2019 3:52 PM EDT 10 mg sodium chloride 0.9% 1,000 mL IV bolus at 2,000 mL/hr, Intravenous, ONCE, 1 dose, On 10/11/19 at 1539 New Bag 10/11/2019 3:52 PM EDT 2000 mL/hr documented in this encounter Active and Recently Administered Medications Times are shown in EDT. Scheduled Medication Order 10/09/2019 10/10/2019 10/11/2019 acetaminophen (Tylenol) tablet 1,000 mg (COMPLETED) 1,000 mg, Oral, ONCE, 1 dose, On 10/11/19 at 1539, Maximum dose of acetaminophen is 4000 mg from all sources in 24 hours. When ordered for pain, acetaminophen should be given even when other ordered pain medications are indicated. , STAT 1552 (Given - Provid er: Jagdeep Garcia RN) diphenhydrAMINE (BENADRYL) injection 25 mg (COMPLETED) 25 mg, Intravenous, ONCE, 1 dose, On 10/11/19 at 1539, STAT 1553 (Given - Provid er: Jagdeep Garcia RN) lidocaine (LIDODERM) 5 % patch 1 patch(Linked Group 1) 1 patch, Transdermal, EVERY 24 HOURS, First dose on 10/11/19 at 1539, Until Discontinued, Apply patch(es) for 12 hours, and then remove for 12 hours, Routine 1553 (Patch Applied - Provider: Jagdeep Garcia RN) lidocaine (LIDODERM) 5 %(700 mg/patch) Patch Removal(Linked Group 1) Transdermal, EVERY 24 HOURS, First dose on 10/12/19 at 0338, Until Discontinued, Remove lidocaine 5 %(700 mg/patch) patch prochlorperazine (COMPAZINE) injection 10 mg (COMPLETED) 10 mg, Intravenous, ONCE, 1 dose, On 10/11/19 at 1539, STAT 1552 (Given - Provid er: Jagdeep Garcia RN) sodium chloride 0.9% 1,000 mL IV bolus (COMPLETED) at 2,000 mL/hr, Intravenous, ONCE, 1 dose, On 10/11/19 at 1539 1552 (New Bag - Prov ider: Jagdeep Garcia RN)1622 (Stopped - Provider: Jagdeep Garcia RN) Linked Groups Order Group 1: lidocaine (LIDODERM) 5 % patch 1 patchJump to med 1 patch, Transdermal, EVERY 24 HOURS, First dose on Sat10/11/19 at 1539, Until Discontinued, Apply patch(es) for 12 hours, and then remove for 12 hours, Routine And lidocaine (LIDODERM) 5 %(700 mg/patch) Patch RemovalJump to med Transdermal, EVERY 24 HOURS, First dose on Sat10/12/19 at 0338, Until Discontinued, Remove lidocaine 5 %(700 mg/patch) patch documented in this encounter Care Teams Pulverizer Operator Relationship Specialty Start Date End Date Amada Carson MD [address] [place] [address] PCP - General Family Medicine 08/28/18 01/21/20 documented as of this encounter
--- OUTSIDE RECORDS SUMMARY | 2024-01-13 18:56 | XMS_ITS | Encounter Summary ---
Author Organization [facility] Address [facility] [place] [address] Care Team Providers Care Prevocational/Rehabilitation Counselor Name Role Phone Amada Carson MD Primary Care Provider [phone] Encounter Details Date Type Department Care Team (Late st Contact Info) Description 10/12/2019 [place] [address] Eusebia Salguero MD [facility] [place] [address] Social History Tobacco Use Types Packs/Day Years [...] Miscellaneous Notes * Telephone Encounter - Eusebia Salguero MD - 10/12/2019 8:38 PM EDT 10/12/19 Neurology Attending I was called by Dr. Phani Velázquez about this 33-year-old woman who was recently admitted to neurology for a question syncope or seizures. She had a work-up at this time including an MRI and an EEG. The MRI revealed a right frontal cavernoma. The EEG was normal. The patient again presented today to [facility] with severe headaches and some syncopal episode and appeared diaphoretic. She had a normal pulse and seemed obtunded but to the provider it seemed that there was a nonphysiologic overlay over her symptoms. She also had some dry heaves and some stuttering speech. She had a CT head that did not show any new abnormalities. She also had a lumbar puncture that showed an opening pressure of 6. Dr. Velázquez was wondering whether the patient should be transferred for video EEG monitoring. Assessment and plan: The patient was recently sufficiently evaluated with MRI of her head as well and outpatient EEG. As long as the patient is not having any recurrent events I do not think video EEG monitoring is indicated as the yield may be low. However the patient could be seen in our outpatient seizure clinic for further work-up. From what is reported this seems to be significant nonphysiologic symptomatology so that nonepileptic seizures also have to be considered. Eusebia Salguero MD Professor of Neurology Director, [facility] [place] documented in this encounter Plan of Treatment [...] on filedocumented in this encounter Care Teams Prevocational/Rehabilitation Counselor Relationship Specialty Start Date End Date Amada Carson MD [address] [place] [address] PCP - General Family Medicine 08/28/18 01/21/20 documented as of this encounter
--- OUTSIDE RECORDS SUMMARY | 2024-01-13 18:56 | XMS_ITS | Encounter Summary ---
Author Organization [facility] [place] [address] Care Team Providers Care Pail Tester Name Role Phone Amada Carson MD Primary Care Provider [phone] Encounter Details Date Type Department Care Team (Late st Contact Info) Description 10/19/2019 Telephone Neurology at [address] [phone] Ashwini Campuzano, INTERIOR WALL ASSEMBLER [facility] [place] [address] Social History Tobacco Use Types Packs/Day Years [...] Telephone Encounter - Mary Sewell RN - 10/19/2019 1:58 PM EDT OUTGOING TELEPHONE CALL NURSING DOCUMENTATION Call made to Jessenia Bingham MD at [phone] option 1 and MD was paged). Jessenia is looking for guidance as to next steps in the care of Kimberli Bales. Kimberli has had a recent emergency room visit and an admission to [facility] for seizure like activity, chronic headaches and altered level of consciousness. She has had several emergency room visits to [facility]. Kimberli had a follow up appointment with Ashwini Campuzano in the headache clinic on Sunday 10/15. Urgent referrals were made to Behavioral Health and the Epilepsy clinic. Brittany went to [facility] emergency room with the same symptoms on Saturday. She was given 2 liters offluids and ativan for seizure like activity. Headache had improved, Rx for prednisone was given andpatient was discharged. Today, Kimberli was seen in Dr. Bingham's primary care clinic. She is at a loss as to what to do next for Kimberli. Dr. Bingham is wondering if an inpateint admission is warranted for ergotamine therapy. Plan/Intervention/Follow Up - Report forwarded to Ashwini Campuzano APRN for review and comment. documented in this encounter Plan of Treatment [...] on filedocumented in this encounter Care Teams Pail Tester Relationship Specialty Start Date End Date Amada Carson MD [address] [place] [address] PCP - General Family Medicine 08/28/18 01/21/20 documented as of this encounter
--- OUTSIDE RECORDS SUMMARY | 2024-01-13 18:56 | XMS_ITS | Encounter Summary ---
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 Name Role Phone Amada Carson MD Primary Care Provider [phone] Reason for Visit * Reason Comments Head Injury Encounter Details Date Type Department Care Team (Late st Contact Info) Description 10/17/2019 11:56 AM EDT - 10/17/2019 5:07 PM EDT Emergency Emergency Services at [facility] [address] [place] [id number] Leila Iraheta MD [facility] [place] [address] Complicated migraine Discharge Disposition: Home Social History Tobacco Use [...] Sign Reading Time Taken Comments Blood Pressure 107/75 10/17/2019 4:55 PM EDT Pulse 76 10/17/2019 4:55 PM EDT Temperature 36.4 ??C (97.5 ??F) 10/17/2019 4:55 PM ED T Respiratory Rate 18 10/17/2019 4:55 PM EDT Oxygen Saturation 97% 10/17/2019 4:55 PM EDT Inhaled Oxygen Concentration - - Weight 147 kg (324 lb 1.2 oz) 10/17/2019 5:01 PM EDT Height - - Body Mass Index 52.31 10/16/2019 8:31 AM EDT documented in this encounter Discharge Instructions * Discharge Instructions* Leila Iraheta MD - 10/17/2019 5:03 PM EDT Continue your dexamethasone taper as prescribed. Do not take with Indocin, Motrin, Advil or Aleve, or any similar nonsteroidal anti-inflammatory medications. You may take Tylenol as directed as needed for persistent pain. If you choose to take Benadryl, do not take your hydroxyzine. Call the neurology clinic on Saturday to schedule an appointment. They should have received referral from your prior [facility] stay. Follow-up with the headache clinic as directed. Drink plenty of fluids to stay hydrated. If your symptoms worsen or if you develop any new concerning symptoms, return to the ER. * Attachments The following attachments cannot be sent through Care Everywhere. * Migraine Headache: Recurring ([place]) documented in this encounter Medications at Time of Discharge Medication Sig Dispensed Refills Start Date End Date dexamethasone (Decadron) 4 mg Tablet Day 1 & 2 take 2 tablet twice a day Day 3, 4, 5 & 6 take 1 tablet twice a day Day 7 & 8 1/2 tablet twice a day Day 9 & 10 1/2 tablet daily 20 tablet 10/16/2019 10/29/2019 prochlorperazine (Compazine) 10 mg Tablet Take 1 [...] as of this encounter ED Notes * Em Lemos RN - 10/17/2019 2:56 PM EDT Pt resting * Em Lemos RN - 10/17/2019 2:31 PM EDT Pt amb to BR stand by assist, voided without difficulty. Pt appears more alert, eating cookies and abigail seb. * Em Lemos RN - 10/17/2019 1:55 PM EDT Cervical collar removed per MD. Pt reports mild improvement in discomfort, pain now a 9 * Em Lemos RN - 10/17/2019 12:29 PM EDT RN notified by of look at her pt observed by RN and MD to be turned to side with eyes closed, teeth clenched, moaning * Leila Iraheta MD - 10/17/2019 12:16 PM EDT P.m.: Chief Complaint Patient presents with ??? Head Injury History obtained from the patient, her and the medical record. History limited by patient'saltered level of consciousness. HPI The patient is a 33-year-old female with a history of chronic headaches, complicated migraine, hypertension and anxiety, who presents with headache and altered level of consciousness. Patient was seen by me on September 27 for altered level of consciousness associated with headache. At that time head CT showed a new focus of high attenuation in the left frontal lobe, patient was transferred to for neurological evaluation and MRI. She was also complaining of left leg pain of unclear etiology, and subsequent bilateral duplexes of the legs showed no DVT, and CK was normal. 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 An awake EEG was performed on October 09 during a repeat ER visit forheadache and seizure-like episodes, which was normal. She presented to the ER again on October 10 with headache and passing out episodes, was neurologically intact, and improved after fluids, IV Compazine, Benadryl and p.o. Tylenol. On October 11, patient presented to the [facility] ER with headache and syncope. LP was done under fluoroscopic guidance, with normal opening pressures, and no abnormalities noted in the CSF fluid. Patient was admitted to [facility], successfully treated with NSAIDs and antihistamines for her headache, and tele- psychiatry evaluation was completed. Tele-psychiatrist believed conversion disorder was unlikely. There was a question as to whether her headache medicine, Emaglity, maybe causing her symptoms, and this was stopped. She was discharged on October 14 on indomethacin, Compazine and hydroxyzine with plans to follow-up with the headache clinic. On October 15 (yesterday), patient was seen by the neurology nurse practitioner, who instructed her to stop indomethacin and Comp azine, and patient was given a dexamethasone taper for 10 days. reports to me that since I originally saw the patient September 27, she has had no relief of her headaches, though they wax and wane in intensity. When they get really bad, she has episodes of passing out, and she has had seizure-like episodes. He states the last night she was seated in a chair that had no arms at approximately 6 PM, and she fell out of the chair onto her left side, striking her head on the hardwood floor. He then witnessed an approximately 3-minute episode of what he described as shaking, foaming at the mouth. He reports her mental status improved after approximately an hour, and then she went to bed. Sh ethan woke up intermittently throughout the night, but to get some sleep. This morning patient awoke with persistent headache, and began vomiting, complaining of nausea. Patient presented at the ambulance bay in the passenger seat of her 's truck, eyes closed, answering some questions appropriately with a very faint voice. Patient was able to stand and pivot into a wheelchair from the truck and was taken into the ER. Patient is complaining of 10 out of 10 occipital headache and left arm and leg weakness, associated with left shoulder and left leg pain. She and her denies any fever,cold symptoms or recent travel. Allergies Allergen Reactions ??? Oxycodone-Acetaminophen Shortness Of [...] file Gets together: Not on file Attends alevism service: Not on file Active member of [...] negative cultures. If sx develop check Micro, AUTO BODY ESTIMATOR or stone. ??? Environmental and seasonal allergies [...] JEFF performed by Genevieve Walsh MD at [facility] ??? PRO STABISMUS SURG,TWO HORIZ MUSCLE Right 02/01/2014 STRABISMUS SURGERY, TWO HORIZONTAL MUSCLES performed by Genevieve Walsh MD at [facility] ??? PRO STRABISMUS SURG,PLACE ADJUST SUTURE Right 12/31/2013 STRABISMUS SURGERY, PLACEMENT OF ADJUSTABLE SUTURES IN CONJUNCTION W/ ANOTHER SURGERY performed by Genevieve Walsh MD at [facility] ??? PRO STRABISMUS SURG,SCAR EXTRAOCUL MUSC Right 02/01/2014 STRABISMUS SURGERY WITH SCARRING OF EXTRAOCULAR MUSCLES IN CONJUNCTION W/ ANOTHER SURGERY performedby Genevieve Walsh MD at [facility] ??? SINUS SURGERY ??? TUBAL LIGATION Bilateral 04/24/2011 [facility]; Sherrell Schmidt MD ??? WISDOM TOOTH EXTRACTION N/A 07/01/2002 [facility]; AILEEN RIVERA, LAUREN Review of systems limited by patient's depressed level of consciousness. Review of Systems Constitutional: Negative for fever. HENT: Negative for congestion. Eyes: Positive for pain (Right eye pain since last night.). Respiratory: Negative for shortness of breath. Cardiovascular: Negative for chest pain. Gastrointestinal: Positive for blood in stool (Yesterday.), nausea and vomiting. Negative for abdominal pain. Genitourinary: Patient reports she does not have periods, reports having had a uterine ablation, though I do not see this in the medical record. Musculoskeletal: Positive for arthralgias (Left shoulder pain, left leg pain, patient reports the entire leg is painful.). Skin: Negative for rash. Neurological: Positive for seizures (Seizure-like episodes, see HPI.), syncope (Passing out episodes, see HPI.), weakness (Left arm and left leg.) and headaches (See HPI.). Negative for numbness. Physical Exam General: Eyes closed, appears asleep, but responds appropriately with a faint voice to questions. No acute distress. HEENT: Normocephalic. Atraumatic. PERRL. Sclera clear without injection or icterus. Nasal septum midline, nares clear. External auditory canals and TMs normal bilaterally. Oropharynx unremarkable. Moist mucous membranes. Neck: Tenderness with palpation to the C-spine, c-collar placed and C-spine precautions initiated. Lungs: Clear to auscultation bilaterally. No rales, rhonchi, wheezes or stridor. Heart: Regular rate and rhythm. No murmurs or rubs. Chest wall nontender. Abdomen: Obese. Soft. Nontender. Nondistended. No masses. No bruit. Back: No abnormality noted. Extremities: Tenderness with palpation of the left shoulder and left knee. No visible abnormality. Patient unwilling to range the left knee due to pain. No cyanosis or edema. Equal radial and dorsalis pedis pulses bilaterally. Neuro: Alert and oriented to person, states she is in the hospital, knows the year, states it is August (it is September). Speech clear, though very soft. No facial droop. PERRL. Patient unable to cooperate for extraocular movement exam. Tongue midline. Patient unable to cooperate for cicnay-uz-brup exam or pronator drift exam. Equal sensation to light touch bilaterally in face and limbs. When I ask the patient to automatic log cut off sawyer my hands, she has 5 out of 5 automatic log cut off sawyer on the right, initially seems to move left fingers, but does not automatic log cut off sawyer is strongly as the right. When I asked the patient to wiggle her toes, she states she is unable to wiggle her left toes. Right patellar reflexes 2+, when I attempt patellar reflex on the left, patient cries out, stating it is painful for me to flex her left knee. Negative Babinski bilaterally. No clonus. As stated in the HPI, patient was able to stand and pivot to a wheelchair, then stand and pivot to the stretcher, adjusting her position on the stretcher by getting up on her feet and shifting herself. Patient was also able to actively undress, lifting her arms above herhead to pull off her shirt and sweatshirt unassisted. Skin: Normal color. Good turgor. Dry. No rashes. Psych: Difficult to assess due to altered mental status. Procedures MDM EKG: Normal sinus rhythm at a rate of 79, normal axis, normal UT, QRS and QTc intervals, no ST segment elevation. During the initial evaluation, I was called to the room for question of seizure, patient had rolledpartially to her right side, appeared to be breathing heavily, face contorted as if she were crying, no drooling or foaming, no tonic-clonic activity, breathing heavily and noisily through her clenched teeth. Throughout the episode patient's vital signs were stable and there was no reduction in puls e ox. Ativan 0.5 mg IV given, patient was able to answer my questions during the end of the approximately 1 minute episode, and responded appropriately once the episode ended with no postictal phase. CT of the head and C-spine are negative. C-collar removed. Morphine 2 mg IV given for pain. Normal saline 1 L IV. Lab work shows elevated white count of 15.8, glucose of 209, bicarb of 21 and elevated lactate of 2.8. is negative. Lab work may reflect some dehydration. Patient reevaluated, reports headache is 9 out of 10. Reglan 10 mg and Benadryl 25 mg IV ordered. Patient reevaluated at 2:45 PM: Reports feeling better, sleeping in the stretcher. Patient had gotten up and ambulated to the restroom, has been tolerating p.o. fluids and crackers. Repeat lactate after liter of normal saline in: Normal at 2.0. 4:30 PM: Patient reevaluated, headache is much improved at a 2 out of 10 in intensity. Patient moving left arm and left leg without difficulty. Eyes open, conversing without difficulty, no distress. Patient neurologically intact, symptoms improved, vitals are stable, safe for discharge home. As perdischarge summary from October 14, patient was referred to general neurology for further evaluation,however tells me he was not aware that this referral was put through. I will provide the patient with neurology's number and advised them to call Saturday to schedule an appointment. As per neurology nurse practitioner's note from yesterday, patient was instructed to follow-up in 2 weeks in their office for headache management. I explained to the patient that I would also like for her to follow-up with her PCP on Saturday for recheck. In the meantime, continue dexamethasone as prescribed, do not take Indocin. asked if she can take Benadryl, but I advised that she not take it with hydroxyzine. asked if she can take any other pain medication with the dexamethasone, and I ad vised that she can take Tylenol, but no NSAIDs. Patient's presentation, given her extensive negative work-up so far, consistent with complicated migraine. Plan as per discharge instructions. 1. Complicated migraine Condition: Stable and improved Disposition: Discharge Leila Iraheta MD 10/17/19 1533 * Em Lemos RN - 10/17/2019 12:15 PM EDT Cervical collar applied with assist * Em Lemos RN - 10/17/2019 12:13 PM EDT Pt assisted out of vehicle, able to follow commands , appears sleepy, min assistance needed with guidance. Pt soft spoken, at bedside answering most of questions for MD. reports pt tipped out of chair, hit left side of posterior head on wood floor, remained unconscious for approximately 4 minutes with seizure type activity documented in this encounter Plan of Treatment [...] Name Priority Date/Time Associated Diagnosis Comments HC L-LACTATE STAT 10/17/2019 3:[address] CERVICAL SPINE WO CONTRAST STAT 10/17/2019 1:[address] HEAD WO CONTRAST (GENERIC) STAT 10/17/2019 12:57 PM EDT HC L-LACTATE STAT 10/17/2019 12:46 PM EDT COMPREHENSIVE METABOLIC PANEL STAT 10/17/2019 12:46 PM EDT HEMOGRAM STAT 10/17/2019 12:45 PM EDT DIFFERENTIAL, AUTOMATED STAT 10/17/2019 12:45 PM EDT HC CBC,PLT & AUTO DIFF STAT 0 12:45 PM EDT BETA HCG, QUANTITATIVE STAT 0 12:45 PM EDT HC TROPONIN T STAT 10/17/2019 12:45 PM EDT EKG 12-LEAD STAT 10/17/2019 12:14 PM EDT POCT GLUCOSE Routine 10/17/2019 11:55 AM EDT documented in this encounter Results * Lactate, plasma (10/17/2019 3:24 PM EDT) Lactic Acid 2.0 0.5 - 2.2 mmol/L [facility] Blood specimen (specimen) 10/17/2019 3:24 PM EDT 10/17/2019 3:29 PM EDT Narrative Resulting Agency Comment Spec In Lab / [facility] Leila Iraheta MD CHEMISTRY ORDERABLES [facility] [address] [place] [address] * CT Cervical Spine wo Contrast (10/17/2019 1:03 PM EDT) Anatomical Region Laterality Modality C-spine Computed Tomogra phy Impressions 10/17/2019 1:39 PM EDT No acute cervical spine fractures. Thank you for letting us participate in the care of this patient. For questions regarding this report, please contact the number below. ? Electronically signed by: Robert Pro [facility] ([phone]), at 10/17/2019 1:39 PM Narrative 10/17/2019 1:39 PM EDT EXAMINATION: CT CERVICAL SPINE WO CONTRAST CLINICAL HISTORY: Neck pain, recent trauma TECHNIQUE: CT cervical spine performed without intravenous contrast administration. COMPARISON: None FINDINGS: Alignment is anatomic. Vertebral body heights are well-maintained. No fracture deformities. No prevertebral soft tissue swelling. Paranasal sinus inflammatory change again noted. Procedure Note Robert Pro MD - 10/17/2019 EXAMINATION: CT CERVICAL SPINE WO CONTRAST CLINICAL HISTORY: Neck pain, recent trauma TECHNIQUE: CT cervical spine performed without intravenous contrast administration. COMPARISON: None FINDINGS: Alignment is anatomic. Vertebral body heights are well-maintained. Nofracture deformities. No prevertebral soft tissue swelling. Paranasal sinus inflammatory change again noted. IMPRESSION No acute cervical spine fractures. Thank you for letting us participate in the care of this patient. Forquestions regarding this report, please contact the number below. Leila Iraheta MD IMG CT ORDERABLES * CT Head wo Contrast (Generic) (10/17/2019 12:57 PM EDT) Anatomical Region Laterality Modality Head Computed Tomogra phy Impressions 10/17/2019 1:19 PM EDT No acute intracranial hemorrhage or mass effect. Preliminary report signed by: Mp Leon at 10/17/2019 1:11 PM I have personally reviewed the image(s) and the resident's interpretation and agree with the findings, Robert Pro at 10/17/2019 1:19 PM Thank you for letting us participate in the care of this patient. For questions regarding this report, please contact the number below. ? Electronically signed by: Robert Pro [facility] ([phone]), at 10/17/2019 1:19 PM Narrative 10/17/2019 1:19 PM EDT EXAMINATION: CT HEAD WO CONTRAST (GENERIC) CLINICAL HISTORY: Head trauma, abnormal mental status (Age 19-64y) TECHNIQUE: CT head performed without intravenous contrast administration. COMPARISON: CT head 10/13/2019. MR brain 09/29/2019. FINDINGS: Redemonstrated 6 mm hyperattenuating focus in the left anterolateral frontal white matter consistent with known cavernous malformation, unchanged in size since 09/28/2019. No acute intracranial hemorrhage. No mass or mass effect. The ventricles are normal in caliber and configuration. The basal cisterns are patent. Chaves-white differentiation is maintained. Redemonstrated opacification of the right maxillary sinus and mucosal thickening within the ethmoid, sphenoid, and left maxillary sinuses. The mastoid air cells are clear. 9 mm right parietal extracalvarial soft tissue lesion with calcification is unchanged. Procedure Note Robert Pro MD - 10/17/2019 EXAMINATION: CT HEAD WO CONTRAST (GENERIC) CLINICAL HISTORY: Head trauma, abnormal mental status (Age 19-64y) TECHNIQUE: CT head performed without intravenous contrast administration. COMPARISON: CT head 10/13/2019. MR brain 09/29/2019. FINDINGS: Redemonstrated 6 mm hyperattenuating focus in the left anterolateralfrontal white matter consistent with known cavernous malformation, unchanged insize since 09/28/2019. No acute intracranial hemorrhage. No mass or mass effect.The ventricles are normal in caliber and configuration. The basal cisternsare patent. Chaves-white differentiation is maintained. Redemonstrated opacification of the right maxillary sinus and mucosalthickening within the ethmoid, sphenoid, and left maxillary sinuses. The mastoid aircells are clear. 9 mm right parietal extracalvarial soft tissue lesion with calcification is unchanged. IMPRESSION No acute intracranial hemorrhage or mass effect. Preliminary report signed by: Mp Leon at 10/17/2019 1:11 PM I have personally reviewed the image(s) and the resident's interpretationand agree with the findings, Robert Pro at 10/17/2019 1:19 PM Thank you for letting us participate in the care of this patient. Forquestions regarding this report, please contact the number below. Leila Iraheta MD IMG CT ORDERABLES * (ABNORMAL) Lactate, plasma (10/17/2019 12:46 PM EDT) Lactic Acid 2.8(H) 0.5 - 2.2 mmol/L [facility] Blood specimen (specimen) 10/17/2019 12:46 PM EDT 10/17/2019 12:46 PM EDT Narrative Resulting Agency Comment Spec In Lab / [facility] Leila Iraheta MD CHEMISTRY ORDERABLES [facility] [address] [place] [address] * (ABNORMAL) Comprehensive metabolic panel (non-fasting) (10/17/2019 12:46 PM EDT) Glucose 209(H) 65 - 199 mg/dL [facility] Comment:Diabetes: >=200 mg/d L plus symptoms Blood Urea Nitrogen 8 8 - 18 mg/dL [facility] Creatinine 0.65(L) 0.70 - 1.20 mg/dL [facility] Sodium 139 135 - 145 mmol/L [facility] Potassium 3.8 3.5 - 5.0 mmol/L [facility] Comment: Please note: ??Patients with WBC >100,000 may have falsely elevated Potassium levels. ??For accurate Potassium quantification in these patients send serum separator tube (gold top) for subsequent determinations. ??Contact the Clinical Chemistry Laboratory if there are any questions. Chloride 102 98 - 107 mmol/L [facility] Carbon Dioxide 21(L) 22 - 31 mmol/L [facility] Anion Gap 16(H) 5 - 15 mmol/L [facility] Calcium 10.1 8.5 - 10.5 mg/dL [facility] Protein, Total 7.4 6.1 - 8.0 gm/dL [facility] Albumin 4.4 3.2 - 5.2 gm/dL [facility] Aspartate Aminotransferase 13 0 - 30 unit/L [facility] Alanine Aminotransferase 23 0 - 30 unit/L [facility] Alkaline Phosphatase 69 35 - 105 unit/L [facility] Bilirubin, Total 0.3 0.2 - 1.3 mg/dL [facility] Est Glomerular Filtration Rate 115 >=60 mL/min/1. 73 m?? [facility] Comment: The eGFR was calculated using the CKD-EPI equation. As with all creatinine based estimates of kidney function, eGFR values calculated with the CKD-EPI equation are not accurate in patients with acute kidney failure, extremes of body mass or the acutely ill. [email or web address] eGFR 133 >=60 mL/min/1. 73 m?? [facility] Comment: The eGFR was calculated using the CKD-EPI equation. As with all creatinine based estimates of kidney function, eGFR values calculated with the CKD-EPI equation are not accurate in patients with acute kidney failure, extremes of body mass or the acutely ill. [email or web address] Blood specimen (specimen) 10/17/2019 12:46 PM EDT 10/17/2019 12:46 PM EDT Narrative Resulting Agency Comment Spec In Lab / [facility] Leila Iraheta MD CHEMISTRY ORDERABLES [facility] [address] [place] [address] * Beta HCG, quantitative (10/17/2019 12:45 PM EDT) Beta Human Chorionic Gonadotropin, Quantitative <1 mlU/ML [facility] Blood specimen (specimen) Venous Draw / Unknown 10/17/2019 12:45 PM EDT 10/17/2019 12:45 PM EDT Narrative Resulting Agency Comment Spec In Lab / [facility] Leila Iraheta MD CHEMISTRY ORDERABLES [facility] [address] [place] [address] * (ABNORMAL) Differential, Automated (10/17/2019 12:45 PM EDT) Pathologist [facility] Neutrophil % 88.3 % [facility] Neutrophil Absolute 14.00(H) 1.70 - 6.10 x10(3)/mc L [facility] Lymph % 8.6 % [facility] Lymphocytes Abs 1.4 0.9 - 3.2 x10(3)/mc L [facility] Monocyte % 2.4 % [facility] Monocyte Abs 0.4 0.3 - 0.9 x10(3)/mc L [facility] Eos % 0.0 % [facility] Eosinophils Abs 0.0 0.0 - 0.4 x10(3)/mc L [facility] Basophil % 0.1 % [facility] Baso Absolute 0.0 0.0 - 0.1 x10(3)/mc L [facility] Immature Gran % 0.60 % [facility] Comment: Immature granulocytes(IG's)percentage and absolute count will include metamyelocytes, myelocytes, and promyelocytes. Blood smears from CBCs yielding IG's will be scanned manually for concordance. If this scan disagrees with the automated IG or if promyelocytes are noted, a manual differential will be performed. Immature Gran Absolute 0.09(H) 0.00 - 0.04 x10(3)/mc L [facility] Blood specimen (specimen) 10/17/2019 12:45 PM EDT 10/17/2019 12:45 PM EDT Narrative Resulting Agency Comment Spec In Lab / [facility] Leila Iraheta MD HEMATOLOGY ORDERABLE S [facility] [address] [place] [address] * (ABNORMAL) Hemogram (10/17/2019 12:45 PM EDT) White Blood Cell 15.8(H) 4.0 - 9.5 x10(3)/mc L [facility] Red Blood Cell 4.56 4.00 - 5.21 x10(6)/mc L [facility] Hemoglobin 13.4 11.7 - 15.5 gm/dL [facility] Hematocrit 40.0 35.7 - 45.8 % [facility] Mean Cell Volume 87.7 82.6 - 94.4 fL [facility] Mean Cell Hemoglobin 29.4 27.1 - 32.0 pg [facility] Mean Cell Hemoglobin Concentration 33.5 31.7 - 35.0 gm/dL [facility] Platelet 361(H) 145 - 357 x10(3)/mc L [facility] RDW Standard Deviation 40.8 37.0 - 46.0 fL [facility] RDW coefficient of variation 12.6 11.5 - 14.1 % [facility] Mean Platelet Volume 10.1 7.6 - 12.9 fL [facility] Blood specimen (specimen) 10/17/2019 12:45 PM EDT 10/17/2019 12:45 PM EDT Narrative Resulting Agency Comment Spec In Lab / APD Leila Iraheta MD HEMATOLOGY ORDERABLE [facility] [address] [place] [address] * Troponin (10/17/2019 12:45 PM EDT) Troponin-T <0.01 0.00 - 0.00 ng/mL LABORATORY Blood specimen (specimen) 10/17/2019 12:45 PM EDT 10/17/2019 12:45 PM EDT Narrative Resulting Agency Comment Spec In Lab / APD Leila Iraheta MD CHEMISTRY ORDERABLES Performing Organization Address [facility] de Phone Number [facility] [address] [place] [address] * EKG 12 Lead (10/17/2019 12:14 PM EDT) Ventricular rate 79 BPM MUSE SYSTEM Atrial Rate 79 BPM MUSE SYSTEM P-R Interval 136 ms MUSE SYSTEM QRS Duration 88 ms MUSE SYSTEM Q-T Interval 368 ms MUSE SYSTEM QTC Calculated (Bezet) 421 ms MUSE SYSTEM Calculated P [place] 24 degrees MUSE SYSTEM Calculated R [place] 25 degrees MUSE SYSTEM Calculated T [place] 27 degrees MUSE SYSTEM INTERPRETATION Normal sinus rhythm Normal ECG When compared with ECG of 12-OCT-2019 11:04, No significant change was found Confirmed by MD Greta, [facility] ([id number]) on 10/19/2019 8:09:51 AM MUSE SYSTEM 10/17/2019 12:1 4 PM EDT 10/19/2019 8:09 AM EDT Leila Iraheta MD ECG ORDERABLES Performing Organization Address [facility] Phone Number MUSE SYSTEM * (ABNORMAL) POCT Glucose (10/17/2019 11:55 AM EDT) Glucose, POC 215(H) 65 - 199 mg/dL [facility] Comment: Supplemental ranges: <140 mg/dL before meals <180 mg/dL all other times of the day Blood specimen (specimen) 10/17/2019 11:55 AM EDT 10/17/2019 11:55 AM EDT Narrative Resulting Agency Comment Spec In Lab / [facility]D Emergency Dept POINT OF CARE TEST ORDERABLES Performing Organization Address [facility] Co de Phone Number LABORATORY [address] [place] [address] documented in this encounter Visit Diagnoses Diagnosis Complicated migraine Migraine with aura, without mention of intractable migraine without mention of status migrainosus documented in this encounter Administered Medications Inactive Administered Medications - up to 3 most recent administrations Medication Order MAR Action Action Date Dose Rate Site diphenhydrAMINE (BENADRYL) injection 25 mg 25 mg, Intravenous, ONCE, 1 dose, On 10/17/19 at 1403, STAT Given 10/17/2019 2:36 PM EDT 25 mg LORazepam (ATIVAN) 2 mg/mL injection 1 dose, Starting on 10/17/19 at 1227, Until 10/17/19 at 1229, Mg [place] (sso): cabinet override LORazepam (ATIVAN) injection 1 mg 1 mg, Intravenous, ONCE, 1 dose, On 10/17/19 at 1231, If medication ordered subcutaneously, do not administer more than 2 mL as a single injection., STAT Given 10/17/2019 12:29 PM EDT 0.5 mg metoclopramide (REGLAN) injection 10 mg 10 mg, Intravenous, ONCE, 1 dose, On 10/17/19 at 1403, Doses greater than 10mg should be diluted into 50ml NS., STAT Given 10/17/2019 2:36 PM EDT 10 mg morphine 2 mg/mL injection syringe 2 mg 2 mg, Intravenous, ONCE, 1 dose, On 10/17/19 at 1217, HIGH ALERT MEDICATION, STAT Given 10/17/2019 1:36 PM EDT 2 mg sodium chloride 0.9 % (flush) flush 3 mL 3 mL, Intravenous, EVERY 1 MIN PRN, Starting on 10/17/19 at 1205, Until 10/17/19 at 1907, for flushes pre / post IV fluids or blood draws as needed, Routine sodium chloride 0.9% infusion 150 mL/hr, Intravenous, CONTINUOUS, Starting on 10/17/19 at 1218, Until 10/17/19 at 1907 New Bag 10/17/2019 1:17 PM EDT 150 mL/hr 150 mL/hr documented in this encounter Active and Recently Administered Medications Times are shown in EDT. Scheduled Medication Order 10/15/2019 10/16/2019 10/17/2019 diphenhydrAMINE (BENADRYL) injection 25 mg (COMPLETED) 25 mg, Intravenous, ONCE, 1 dose, On 10/17/19 at 1403, STAT 1436 (Given - Provid er: Em Lemos RN) LORazepam (ATIVAN) injection 1 mg (COMPLETED) 1 mg, Intravenous, ONCE, 1 dose, On 10/17/19 at 1231, If medication ordered subcutaneously, do not administer more than 2 mL as a single injection., STAT 1229 (Given - Provid er: Em Lemos RN - Comment: verbal order confirmed by MD) metoclopramide (REGLAN) injection 10 mg (COMPLETED) 10 mg, Intravenous, ONCE, 1 dose, On 10/17/19 at 1403, Doses greater than 10mg should be diluted into 50ml NS., STAT 1436 (Given - Provid er: Em Lemos RN) morphine 2 mg/mL injection syringe 2 mg (COMPLETED) 2 mg, Intravenous, ONCE, 1 dose, On 10/17/19 at 1217, HIGH ALERT MEDICATION, STAT 1336 (Given - Provid er: Em Lemos RN) Continuous Medication Order 10/15/2019 10/16/2019 10/17/2019 sodium chloride 0.9% infusion 150 mL/hr, Intravenous, CONTINUOUS, Starting on 10/17/19 at 1218, Until 10/17/19 at 1907 1317 (New Bag - Prov ider: Em Lemos RN)1600 (Stopped - Provider: Em Lemos RN) PRN Medication Order 10/15/2019 10/16/2019 10/17/2019 sodium chloride 0.9 % (flush) flush 3 mL 3 mL, Intravenous, EVERY 1 MIN PRN, Starting on 10/17/19 at 1205, Until 10/17/19 at 1907, for flushes pre / post IV fluids or blood draws as needed, Routine documented in this encounter Care Teams [employer] Relationship Specialty Start Date End Date Amada Carson MD [address] [place] [address] PCP - General Family Medicine 08/28/18 01/21/20 documented as of this encounter
--- OUTSIDE RECORDS SUMMARY | 2024-01-13 18:56 | XMS_ITS | Encounter Summary ---
Author Organization [facility] Address [facility] [place] [address] Care Team Providers Care Grip Assembler Name Role Phone Amada Carson MD Primary Care Provider [phone] Reason for Referral * Psychiatric (Routine) - Closed Specialty Diagnoses / Procedures Referred By Contac t Referred To Contact Psychiatry Diagnoses Anxiety Altered mental status, unspecified altered mental status type Chase Wells MD [facility] [place] [address] Rocael Clifton, PhD [facility] [place] [address] Referral ID Status Reason Start Date Expiration Date V isits Requested Visits Authorized [id number] Closed Consult, Test & Treat 10/27/2019 10/26/2020 1 1 Reason for Visit * Reason Comments Procedure EEG * Auth/Cert Specialty Diagnoses / Procedures Referred By Contac t Referred To Contact Diagnoses Anxiety Altered mental status Altered mental status, unspecified altered mental status type Procedures EMERGENCY OBSVO Referral ID Status Reason Start Date Expiration Date Visits Re quested Visits Authorized [id number] 1 1 Encounter Details Date Type Department Care Team (Late st Contact Info) Description 10/27/2019 10:29 AM EDT - 10/29/2019 12:44 PM EDT Emergency [address] [phone] Afsaneh Huerta MD [facility] [place] [address] Roger Ramos MD [facility] [place] [address] Timur Coleman MD [facility] [place] [address] Altered mental status (Primary Dx); Anxiety; Altered mental status, unspecified altered mental status type Discharge Disposition: Home Social History Tobacco [...] Sign Reading Time Taken Comments Blood Pressure 118/79 10/29/2019 8:55 AM EDT Pulse 69 10/29/2019 1:31 AM EDT Temperature 36.9 ??C (98.4 ??F) 10/29/2019 8 :55 AM EDT Respiratory Rate 16 10/29/2019 8:55 AM EDT Oxygen Saturation 98% 10/29/2019 8:5 5 AM EDT Inhaled Oxygen Concentration - - Weight 140.1 kg (308 lb 13. 8 oz) 10/28/2019 4:13 AM EDT Height 170.2 cm (5' 7) 10/27/2019 11:0 3 PM EDT pt reported Body Mass Index 48.37 10/27/2019 11:03 PM EDT documented in this encounter Discharge Summaries * Timur Coleman MD - 10/29/2019 12:32 PM EDT Discharge Summary Patient Name: Kimberli Bales Patient Age: 33 y.o. Language: Swiss Race: White Ethnicity: Not nor Admit Date: 10/27/2019 Discharge Date: 10/29/19 12:32 PM Attending Physician: Timur Coleman MD Discharge Physician: Timur Coleman MD Follow-up Recommendations for Providers: 1) Started on Thorazine for management of acute dissociative episodes. Please follow up adherence and side effects (orthostasis, extrapyramidal symptoms, neuroleptic malignant syndrome). 2) Serum workup for reversible causes of peripheral neuropathy was initiated on day of discharge. Please follow up results of these tests. Inpatient Provider Contact Information: For questions regarding this document or issues related to this hospitalization on the Neurology Service, please contact the author(s) of this discharge summary through the [facility] Vending Machine Host/Hostess . Discharge Diagnoses (Hospital Problems) and Secondary Diagnoses (Chronic Problems): Primary Diagnosis: Dissociative Spells Active Hospital Problems Diagnosis ??? Altered mental status Resolved Hospital Problems No resolved problems to display. Active Non-Hospital Problems Diagnosis ??? Complicated migraine ??? AMS (altered mental status) ??? Class 3 severe obesity due to excess calories with serious comorbidity and body mass index (BMI) of 50.0 to 59.9 in adult ??? Obstructive sleep apnea ??? Hypertension ??? Hemicrania continua ??? Anxiety ??? Idiopathic intracranial hypertension ??? Neurological deficit present ??? Menorrhagia ??? Exotropia Past Medical History: Diagnosis Date ??? Abnormal cervical Papanicolaou smear 09/09/2018 ??? Diverticulosis of colon 09/09/2018 ??? Dysplasia of cervix 07/17/2006 ??? Dysuria 07/17/2006 episodes of dysuria and frequency but all negative cultures. If sx develop check Micro, MACHINE HELPER or stone. ??? Environmental and seasonal allergies ??? Hypertension 06/30/2019 ??? Post-op bleeding 02/08/2012 Following ??? Pyelonephritis 09/09/2018 ??? Strabismus ??? UTI (urinary tract infection) History of Presentation: Kimberli Bales is a 33 y.o. right handed female with a PMH of complicated migraine, PNES, ELMA, HTN, and obesity who is presenting to the ED with episodes of AMS. ?? Bree is well known to the neurology service. Patient follows with Ashwini Campuzano in [facility]. Headaches began after of second child which was complicated by blood loss requiring multiple transfusions. An LP in 2012 while patient was on diamox 125 mg BID for presumedIIH was found to be 23 cm H2O. Headache describes at right temporal that crossed midline with a thro bbing quality. Associated symptoms included dizziness and tunnel vision. Repeat LP later tat year revealed an opening pressure of 17 cm H2O. Ophthalmology saw patient in 2017 and noted no evidence ofpapilledema on exam and recommend discontinuation of diamox. ?? She was admitted to the neurology service in October 2017 for worsening of her headaches. Workup including MRI, MRV, and MRA was unremarkable. She had symptoms of stuttering that improved after LP.During this LP, opening pressure was measure at 4 cm H2O. Headache did not resolve with LP but symptoms of stuttering did, thought to be functional in nature. 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 Currently, Bree is complaining of headaches and episodes of AMS. Bree has been to the ED multiple times. She was admitted to the neurology service from 09/27-09/28 for having an episode of transient loss of time. She originally went to [facility] but after finding a vessel abnormality and concern for possible seizure, she was transferred for EEG monitoring. As per the discharge summary on 09/28: ?? Her CT showed increase in size of her vascular malformation.??MRI vessel imaging was done??and revealed no acute changes. An outpatient??routine EEG was ordered to look for possible seizure related to her AVM. ??Her spell was thought to be non physiologic, but referral to epilepsy or general neuro may be considered should these spells recur/continue. It is also possible that she had a vasosovagal/syncopal episode.? She also complained of bilateral achy leg pain up to her mid-thighs symmetrically. She denied any sensation changes. Duplex US of bilateral legs was done and it was negative for DVTs. CK was normal.??She had subjective left sided weakness which was also likely non physiologic in origin. 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 She was able to ambulate with ease and was back to her normal cognitive baseline prior to discharge.? She then continued to have multiple ED visits along with hospital admissions outlined below: ?? 10/09: She went to [facility] ED for more episodes of syncope and shaking. She had routine EEG which was unremarkable. 10/10: Again went to [facility] ED with headache and passing out episodes, was neurologically intact, and improved after fluids, IV Compazine, Benadryl and p.o. Tylenol 10/11-10/14: She then returned to [facility] on 10/11 for similar complaints. She was admitted with multiple witnessed episodes of lack of responsiveness. An LP under flouro guidance was performed to rule out any infectious causes and ultimately was unremarkable. 2 cc was taken and there was no reserved CSF for further studies. Psychiatry was consulted who states this may be conversion disorder. Emgality was stopped in the event this was contributed to her symptoms. She was then discharged on 10/14 with indomethacin,??Compazine and hydroxyzine with plans to follow-up with the headache clinic 10/15: Appointment with Ashwini Campuzano, her headache provider. She was instructed her to stop indomethacin and Compazine, and patient was given a dexamethasone taper for 10 days. 10/16: Seen again at [facility] ED with complaints of continued headache with passing out episodes when pain gets overwhelming. at this time described seizure like activity that was followed by confusion for an hour. She was complaining of 10/10 MCGARRY associated with N/V and left arm and leg weakness as well as left shoulder and leg pain. Provider witnessed a spell which consited of her clenching her teeth and did not appear epileptic. She was given 0.5 mg of ativan with relief of spell. CT headand c spine was unremarkable (performed because reported to hit head the day prior). Lab work appeared to have WBC of 15.8, lactate of 2.1 and elevated bicarb of 21 and glucose of 201 thought all to be related to dehydration. She was discharged later that day after relief from headache. 10/22: Epilepsy clinic visit at [facility] with Dr. Vance. After careful review of her chart, it was thought that her presentation was consistent with PNES. ?? Since her discharge from [facility], she has been having more episodes of loss of time. The events last for a few hours and now will occur twice a day. They occur always when she is awake.When she wakes upfrom these episodes she has an overwhelming sense of guilt. She also notes some confusion for a couple of hours. She says she does not know who she is or where she is. She does state she has headaches in the front but is different from her normal headaches. She says it hurts more than her headaches. She denies any recent sickness or viral illness. She denies any visual changes. She denies any episodes of incontinence. She states she believes these episodes all started after initiation of Emgality on 09/11. Physical Exam at Admission Vitals: Temp: [37.2 ??C (99 ??F)-37.4 ??C (99.3 ??F)] Heart Rate: [67-76] Resp: [13-23] BP: (118-133)/(64-90) SpO2: [94 %-99 %] Heart Rate from SpO2: [67 bpm-81 bpm] Gen: Patient of apparent stated age, obeses, awake, alert, NAD, covered in multiple blankets, i'm cold Abd: +normoactive bowel sounds, soft, nontender, nondistended; no heptamegaly Ext: No edema. No bony deformity Neuro Exam: MS: AAOx2 (aware of place and time, not aware of own name or situation), hypophonia and puberphoniawhen speaking, minimal speech will answer with 1-2 words, no dysarthria, follows commands CN: PERRL, EOMI, visual ling full Facial sensation intact, no facial asymmetry Hearing intact to finger rub Palate elevates symmetrically, tongue protrudes midline SCM and trap strength intact Motor: Normal bulk and tone. UE: 5/5 R, 5/5 L Arm abduction at shoulder 5/5 R, 5/5 L Elbow extension 5/5 R, 5/5 L Elbow flexion 5/5 R, 5/5 L Medical Physics Teacher 5/5 R, 5/5 L Thumb abduction (APB) 5/5 R, 5/5 L Finger abduction LE: 5/5 R, 5/5 L Hip flexion 5/5 R, 5/5 L Knee extension 5/5 R, 5/5 L Knee flexion 5/5 R, 5/5 L Foot dorsiflexion 5/5 R, 5/5 L Foot plantar flexion Sensation: Intact to light touch throughout Reflexes: DTRs 2+ R, 2+ L Biceps 2+ R, 2+ L Brachioradialis 2+ R, 2+ L Triceps 2+ R, 2+ L Patellar 2+ R, 2+ L Achilles tendon Toes - R down, L down Coordination: Finger to nose intact, no dysmetria Rapid alternating movements & finger tapping smooth and symmetric Heel-salazar intact No tremor Gait: not assessed ? The Elements of the Antibody Prevalence in Epilepsy and Encephalopathy score (APE2) New onset, rapidly progressive mental status changes or seizures over 1-6 weeks within 1 year of evaluation 1 point New onset autonomic dysfunction, such as labile blood pressure, hyperhidrosis, asystole, ventricular tachycardia, sustained bradycardia, orthostatic hypotension 1 point Neuropsychiatric symptoms, such as agitation, aggression, psychosis, or emotional lability 1 point History of underlying malignancy within 5 years before onset of neurological symptoms (excluding cutaneous squamous cell carcinoma and basal cell carcinoma) 2 points Viral prodromal illness in the absence of a cancer history within the past 5 years 2 points Facial brachial dystonic seizures 3 points Facial dyskinesia in the absence of facial brachial dystonic seizures 2 points Seizures refractory to 2 or more antiepileptic drugs 2 points Cerebral spinal fluid inflammation manifest as protein > 50 mg/dL or a WBC > 5 cells/mcL 2 points MRI findings of limbic encephalitis, including T2/flair signal hyperintensity in 1 or both temporallobes, or multifocal chaves/white matter lesions consistent with inflammation or demyelination 2 points Total 2 *Possible autoimmune encephalitis APE2 score >4 *Probable autoimmune encephalopathy APE2 score >4 and successful immunotherapy trial or APE2 score >7 Hospital Course: Kimberli Bales ??is a 33 y.o.??right??handed female with a PMH of complicated migraine, PNES, ELMA, HTN, and obesity who was admitted to the neurology services for further evaluation spells of AMSand headaches. Kimberli has been extensively worked up for her current presentation with MRI, EEG, and LP - all were unremarkable. Her presentation of AMS with self but not to date or time, as well as, the abilityto follow commands is inconsistent with a true encephalitis and is more likely a psychiatric disorder, which psychiatry (on consultation this admission) agreed with. Additionally, her APE2 score is 2- meaning there is little suspicion for an underlying autoimmune process (albeit this is bias towards whose with autoimmune/paraneoplastic syndromes presenting with epilepsy). Nonetheless, she was admitted for a few further studies to r/o paraneoplastic syndrome/NMDA receptor encephalitis. Given her demographics, a pelvic US was done to rule out ovarian pathology and this was unremarkable (see report below). Patient was started on Thorazine for empiric treatment of her dissociative symptoms. She tolerated a low dose to start (25mg TID) and was discharged with a plan to escalate as tolerated up to a totaldose of 200mg daily. Dexamethasone was stopped. The patient was NOT evaluated by Rehabilitation Services due to no significant change from baselinelevel of function. 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 It is desirable not to medicalize her symptoms, and to treat her with counseling instead. Thorazine was started for psychotic symptoms. We felt it was doubtful that any remedy would help her headaches, and would keep her on Tylenol only. Conversion symptoms of confusion and disorientation had cleared up by the time of discharge. Procedures: None Consults: Psychiatry Diagnostic Tests & Neuroimaging: Results for orders placed or performed during the hospital encounter of 10/27/19 US Transvaginal Non OB (Exam End: 10/27/2019 4:57 PM) Impression Comparison is made to prior studies dated 08/11/2015 and 08/03/2014. 1. Anteverted uterus is normal in contour. A 0.7 x 0.6 cm subendometrial cyst is identified on today's exam, question cystic degeneration of previously visualized 1 cm fibroid. 2. The endometrium is homogeneous and normal in size measuring 3.3 mm in double wall thickness. 3. The left ovary is visualized transabdominally and appears normal in size and morphology. The right ovary is not seen transabdominally or transvaginally however, it appears normal on prior ultrasound. No findings to suggest a dermoid. There is no free fluid in the cul-de-sac. Thank you for letting us participate in the care of this patient. For questions regarding this report, please contact the number below. Other Pertinent Information^?teratoma or microteratoma - ?NMDA receptor encephalitis Keke Peralta, Staff Physician Electronically Signed Final Report 10/27/2019 05:13 pm Routine EEG: INTERPRETATION: This EEG is normal during the awake and drowsy states. CLINICAL CORRELATION: Normal awake and drowsy EEG. No epileptiform discharges, events, or seizures. A normal EEG does notrule out epilepsy. If clinical suspicion remains, a longer study including sleep state will increase the sensitivity of the test. Labs: Recent Results (from the past 168 hour(s)) Basic Metabolic Panel (non-fasting) Collection Time: 10/27/19 12:28 PM Result Value Ref Range Glucose Lvl 89 65 - 199 mg/dL BUN 7 (L) 8 - 18 mg/dL Creatinine 0.62 (L) 0.70 - 1.20 mg/dL Sodium 138 135 - 145 mmol/L Potassium 4.4 3.5 - 5.0 mmol/L Chloride 101 98 - 107 mmol/L CO2 26 22 - 31 mmol/L Anion Gap 11 5 - 15 mmol/L Calcium 9.4 8.5 - 10.5 mg/dL eGFR 117 >=60 mL/min/1.73 m?? eGFR 135 >=60 mL/min/1.73 m?? Acetaminophen level Collection Time: 10/27/19 12:28 PM Result Value Ref Range Acetamin Lvl <5 (L) 10 - 30 mg/L Salicylate Collection Time: 10/27/19 12:28 PM Result Value Ref Range Salicylate Lvl <3 mg/L Hemogram Collection Time: 10/27/19 12:28 PM Result Value Ref Range WBC 9.2 4.0 - 9.5 x10(3)/mcL RBC 4.45 4.00 - 5.21 x10(6)/mcL Hemoglobin 13.1 11.7 - 15.5 gm/dL Hematocrit 40.4 35.7 - 45.8 % MCV 90.8 82.6 - 94.4 fL MCH 29.4 27.1 - 32.0 pg MCHC 32.4 31.7 - 35.0 gm/dL Platelets 316 145 - 357 x10(3)/mcL RDWSD 42.0 37.0 - 46.0 fL RDWCV 12.7 11.5 - 14.1 % MPV 10.2 7.6 - 12.9 fL nRBC % Auto 0.0 % nRBC Abs Auto 0.000 0.000 - 0.000 x10(3)/mcL Differential, Automated Collection Time: 10/27/19 12:28 PM Result Value Ref Range Neutrophils % 63.7 % Neutr Abs (ANC) 5.85 1.70 - 6.10 x10(3)/mcL Lymphocytes % 26.9 % Lymphocytes Abs 2.5 0.9 - 3.2 x10(3)/mcL Monocytes % 7.5 % Monocyte Abs 0.7 0.3 - 0.9 x10(3)/mcL Eosinophils % 1.2 % Eosinophils Abs 0.1 0.0 - 0.4 x10(3)/mcL Basophils % 0.2 % Basophils Abs 0.0 0.0 - 0.1 x10(3)/mcL Immature Gran % 0.50 % Roberta Gran Abs 0.05 (H) 0.00 - 0.04 x10(3)/mcL Blue Tube HOLD Collection Time: 10/27/19 12:28 PM Result Value Ref Range Blue Hold Sample in lab. Gold Tube HOLD Collection Time: 10/27/19 12:28 PM Result Value Ref Range Gold Hold Sample in lab. Chaves Tube Hold Collection Time: 10/27/19 12:28 PM Result Value Ref Range Chaves Hold Sample in lab. 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 Swab Urinalysis with reflex Culture Collection Time: 10/28/19 4:05 AM Specimen: Clean Catch Urine Result Value Ref Range Glucose UA Negative Negative mg/dL Protein UA Negative Negative mg/dL Bilirubin UA Negative Negative mg/dL Urobilinogen UA 2.0 (A) Normal mg/dL pH UA 6.5 5.0 - 8.0 Blood UA Negative Negative mg/dL Ketones UA Negative Negative mg/dL Nitrite UA Negative Negative Leukocytes UA Negative Negative mcL Appearance UA Cloudy (A) Clear Spec [place] UA 1.023 1.006 - 1.030 Color UA Yellow Yellow Culture Reflexed No Rapid Drug Screen, Urine (JENNIFER Request) Collection Time: 10/28/19 4:06 AM Result Value Ref Range JENNIFER Conf Requested No JENNIFER Requested See Comment Rapid Drug Screen w/o Confirmation, Urine Collection Time: 10/28/19 4:06 AM Result Value Ref Range U Barbiturates Screen [...] U Adulterants Screen None Detected None Detected Beta HCG, quantitative Collection Time: 10/28/19 9:52 AM Result Value Ref Range Beta hCG Quant <1 mlU/ML Prothrombin Time Collection Time: 10/28/19 9:52 AM Result Value Ref Range PT 12.4 9.4 - 12.5 sec INR 1.1 APTT Collection Time: 10/28/19 9:52 AM Result Value Ref Range PTT 35 25 - 37 sec TSH Collection Time: 10/29/19 10:37 AM Result Value Ref Range TSH 2.95 0.27 - 4.20 mcIU/mL T4, free Collection Time: 10/29/19 10:37 AM Result Value Ref Range Free T4 1.28 0.93 - 1.70 ng/dL Protein Electrophoresis, serum Collection Time: 10/29/19 10:37 AM Result Value Ref Range Total Prot Elec 6.1 6.1 - 8.0 gm/dL Sedimentation rate Collection Time: 10/29/19 10:37 AM Result Value Ref Range Sed Rate 33 2 - 37 mm/hr CRP, acute inflammation Collection Time: 10/29/19 10:37 AM Result Value Ref Range CRP 13.6 (H) <=4.9 mg/L Pending Studies and Lab Data: The patient will need the following 6 tests completed on: 10/27/2019 1. Paraneoplastic Autoantibody Eval, Serum 4. Vitamin B12 2. Vitamin B6 5. Hemoglobin A1c 3. Ganglioside Antibodies 6. WILLIAM ([facility]) Diagnosis: Authorizing Provider: Afsaneh Huerta MD, Timur Coleman MD Vital Signs at Discharge: BP: 118/79, Heart Rate: 69, Temp: 36.9 ??C (98.4 ??F), Resp: 16, BMI (Calculated): 49.17 Height: 170.2 cm (5' 7)(pt reported) (10/27/19 2303) Weight: (!) 140.1 kg (308 lb 13.8 oz) (10/28/19 0413) Functional and Cognitive Status: At baseline Physical Exam at Discharge: Unchanged from admission Discharge Conditions/Prognosis: Stable Discharge to: Home Updated Allergies/ADRs: Allergies Allergen Reactions ??? Oxycodone-Acetaminophen [...] Medications: Your Medications New Medications Dose Details chlorproMAZINE 25 mg Tab Commonly known as: Thorazine Take 1-4 tablets by mouth 3 times daily. Day 1-5, take 25/25/50mg. Day 5-10, take 25/50/75mg. Day 11-15, take 50/50/75mg. After Day 15, take 50/50/100mg. 25-100 mg Quantity: 360 tablet Refills: 0 Continued medications, unchanged Dose Details acetaminophen 500 mg Tab Commonly known as: Tylenol Take 1,000 mg by mouth every 6 hours as needed for Pain. 1,000 mg Refills: 0 citalopram 40 mg Tab Commonly known as: CeleXA Take 1 tablet by mouth once daily Quantity: 90 tablet Refills: 3 lisinopriL 20 mg Tab Commonly known as: Prinivil;Zestril Take 1 tablet by mouth daily. 20 mg Quantity: 90 tablet Refills: 3 STOPPED Medications dexamethasone 4 mg Tab Commonly known as: Decadron Smoking Status at Discharge: Social History Tobacco Use Smoking Status Former Smoker ??? Packs/day: 0.25 ??? Years: 2.00 ??? Pack years: 0.50 ??? Types: Cigarettes ??? Quit date: 10/17/2017 ??? Years since quittin.0 Smokeless Tobacco Never Used Instructions Given to Patient at Discharge: Patient Instructions Instruction after leaving the hospital Why you were hospitalized: You were hospitalised for episodes of confusion. Call your doctor or seek medical attention [...] primary care physician. Shower/Bath: No new restrictions. Patient Instructions: - Please see below for instruction on taking Thorazine. - Please see below for future appointments. Changes in Your Medications: - Stop taking dexamethasone - Start taking Thorazine as directed below: - Day 1-5: take 25mg in the morning, 25mg at noon, and 50mg at night - Day 6-10: take 25mg in the morning, 50mg at noon, and 75mg at night - Day 10-15: take 50mg in the morning, 50mg at noon, and 75mg at night - After day 16: take 50mg in the morning, 50mg at noon, and 100mg at night Follow-Up Appointments Future Appointments Date Time Provider Department Center 11/03/2019 10:30 AM Ashwini Campuzano APRN [facility] 11/12/2019 10:00 AM Ashwini Campuzano APRN [facility] 01/22/2020 9:00 AM Octavio Vance MD [facility] NEURO [facility] You will receive a call from neurology clinic to follow up with Dr. Timur Coleman. You will receive a call from psychiatry to schedule an appointment. Your Inpatient Doctor(s) at [facility]: Timur Coleman MD - Attending physician Phani Maravilla MD - Resident physician Luciano Up DO - Resident physician Your Primary Care Provider: Amada Carson MD [address] [place] [address] / [facility] [id number] For questions regarding this document or issues relating to this hospitalization on the Medical Service, please contact your inpatient physician through the [facility] Vending Machine Host/Hostess . Issues afterhours and on weekends will be handled by the Hospitalist staff on-call. General Instructions Psychiatry Continuing Care Instructions You were assessed by: Chase Wells MD Your diagnosis is: Dissociative Disorder, anxiety Recommended follow-up plans are: Followup with PCP, and call [facility] for therapist or pursue private therapist in community. Referral to psychiatry also placed. Referral options for outpatient psychiatric treatment: It is recommended that you obtain follow-up care for therapy. [x] call your primary care doctor for referral or follow-up [] call your insurance company for list of local in-network providers (look for number on back of your insurance card) [x] call your local [facility] at [facility] [phone] Additional Instructions and Resources: Emergency contacts for worsened symptoms or safety concerns Go to your nearest emergency room, or call 911 Call your local [facility] crisis line at [facility] [phone], or call the [facility] crisis line at [phone] Helpful websites for additional information: National Institutes of Mental Health (NIMH) http://www.nimh.nih.gov [employer]iatric Association http://www.healthyminds.org/letstalkfacts.cfm National [place] on Mental Illness www.darrell.org or www.namivt.org or www.naminh.org for local sites Future Appointments and Orders Future Appointments and Orders Future Appointments Provider Department Dept Phone 11/03/2019 10:30 AM Ashwini Campuzano APRN Neurology at [facility] Arrive at: Home [phone] Please visit us at: [email or web address] l to view instructions for your upcoming Telehealth appointment 11/12/2019 10:00 AM Ashwini Campuzano APRN Neurology at [facility] Arrive at: Home [phone] Please visit us at: [email or web address] l to view instructions for your upcoming Telehealth appointment 01/22/2020 9:00 AM Octavio Vance MD Neurology at [facility] Arrive at: [employer] [facility] [address] [phone] Future Orders Complete By Expires Referral to Psychiatry [REF91 Custom] As directed Process Instructions: If no progress note charted, please enter Clinical details in comments. Scheduling Instructions: Questions: My question or request is: Therapy referral - Dissociative episodes would benefit from CBT or similar Future Appointments Date Time Provider Department Center 11/03/2019 10:30 AM Ashwini Campuzano APRN [facility] [address] 11/12/2019 10:00 AM Ashwini Campuzano APRN [facility] [address] 01/22/2020 9:00 AM Octavio Vance MD [facility] NEURO [facility] Primary Care Provider: Amada Carson MD [email or web address] [facility] [id number] Discharge References/Attachments None documented in this encounter Discharge Instructions * Discharge Instructions* Chase Wells MD - 10/27/2019 10:07 PM EDT Psychiatry Continuing Care Instructions You were assessed by: Chase Wells MD Your diagnosis is: Dissociative Disorder, anxiety Recommended follow-up plans are: Followup with PCP, and call [facility] for therapist or pursue private therapist in community. Referral to psychiatry also placed. Referral options for outpatient psychiatric treatment: It is recommended that you obtain follow-up care for therapy. [x] call your primary care doctor for referral or follow-up [] call your insurance company for list of local in-network providers (look for number on back of your insurance card) [x] call your local [facility] at [facility] [phone] Additional Instructions and Resources: Emergency contacts for worsened symptoms or safety concerns Go to your nearest emergency room, or call 911 Call your local [facility] crisis line at [facility] [phone], or call the [facility] crisis line at [phone] Helpful websites for additional information: National Institutes of Mental Health (NIMH) http://www.nimh.nih.gov [employer] Psychiatric Association http://www.healthyminds.org/letstalkfacts.cfm National [place] on Mental Illness www.darrell.org or www.namivt.org or www.naminh.org for local sites * Patient Instructions* Luciano Up, - 10/29/2019 11:53 AM EDT Instruction after leaving the hospital Why you were hospitalized: You were hospitalised for episodes of confusion. Call your doctor or seek medical attention [...] primary care physician. Shower/Bath: No new restrictions. Patient Instructions: - Please see below for instruction on taking Thorazine. - Please see below for future appointments. Changes in Your Medications: - Stop taking dexamethasone - Start taking Thorazine as directed below: - Day 1-5: take 25mg in the morning, 25mg at noon, and 50mg at night - Day 6-10: take 25mg in the morning, 50mg at noon, and 75mg at night - Day 10-15: take 50mg in the morning, 50mg at noon, and 75mg at night - After day 16: take 50mg in the morning, 50mg at noon, and 100mg at night Follow-Up Appointments Future Appointments Date Time Provider Department Center 11/03/2019 10:30 AM Ashwini Campuzano APRN [facility] [employer] [facility] 11/12/2019 10:00 AM Ashwini Campuzano APRN [facility] [employer] [facility] 01/22/2020 9:00 AM Octavio Vance MD [facility] NEURO [facility] You will receive a call from neurology clinic to follow up with Dr. Timur Coleman. You will receive a call from psychiatry to schedule an appointment. Your Inpatient Doctor(s) at [facility]: Timur Coleman MD - Attending physician Phani Maravilla MD - Resident physician Luciano Up DO - Resident physician Your Primary Care Provider: Amada Carson MD Nancy Trevino / [facility] [id number] For questions regarding this document or issues relating to this hospitalization on the Medical Service, please contact your inpatient physician through the [facility] Vending Machine Host/Hostess . Issues afterhours and on weekends will [...] 15, take 50/50/100mg. 360 tablet 10/29/2019 11/12/2019 citalopram (CeleXA) 40 mg Tablet Take 1 tablet by mouth once daily 90 tablet 3 05/18/2019 11/12/2019 lisinopriL (Prinivil;Zestril) 20 mg TabletIndications:Essent ial hypertension Take 1 tablet by mouth daily. 90 tablet 3 03/30/2019 01/21/2020 documented as of this encounter Progress Notes * Mattie Goa RN - 10/29/2019 12:44 PM EDT Office of Care Management Initial Assessment Mattie Gao RN discussed discharge plan with Care Team and patient. Kimberli Bales is medically ready for discharge Pt left this morning before this CM had a chance to check in. Per spouse yesterday, he would drive her home. No home services needed at this time. Prescription pick up worker reviewed w/Patient and they will pick up worker medications at [facility] [address] [place] [address] [place] [address] [place], [place] [facility] [id number] * Heather Yadav RN - 10/27/2019 11:10 PM EDT Armando arrived to unit. Steady gait from wheelchair to bed. Oriented to room, call light, and bedalarm. Pt will verbalized her name and hospital for location. But shrugs for other questions. Shook head no for pain, numbness/tingling. Pt notified we need a urine sample, supplies in room. Will am bulate with pt to bathroom. Pt sleeping when lights dimmed. Bed alarm on, will continue to round. documented in this encounter H&P Notes * Timur Coleman MD - 10/28/2019 2:37 AM EDT For full H+P see Dr. Kiah Ochoa MD's 10/26 Consult Note Assessment / Recommendations: Kimberli Bales is a 33 y.o. right handed female with a PMH of complicated migraine, PNES, ELMA, HTN, and obesity who is presenting to the ED with episodes of AMS. ?? Kimberli has been extensively worked up for her current presentation with all tests including MRI,EEG, and LP being unremarkable. Her presentation of AMS with self but not to date or time as well as the ability to follow commands is inconsistent with a true encephalitis and is more likely a psychiatric disorder. Her APE2 score is a 2 meaning there is little suspicion for an underlying autoimmune process. Owever, this scale tends to be more bias towards those autoimmune/paroneoplastic syndromes presenting with epilepsy. It is well known that NMDA encephalitis can present with psychiatric symptoms and in a young female is often associated with an ovarian teratoma tumor. It would then be usef ul to get a pelvic U/S to look for any suspicious ovarian masses. I spoke to [facility] who unfortunately does not have any reserved CSF to run additional studies on. An LP would most likely need ot be performed underflouroscopy guidance in order to obtain CSF for paraneoplastic studies. This test is invasive and requires radiation for a diagnosis that is not likely. I have sent off a serum paraneoplastic panel which is less sensitive than the CSF studies but still julien help provide an answer. I do believe that she should see psychiatry for formal evaluation and possible medication if appropriate. She may require admission, ideally under the psychiatric service, if she is unsafe to go home. She is admitted in consideration of further work up for headaches and spells of AMS. 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 ?? #Suspected Conversion Disorder # Headaches #Dissociative Spells - admitted to neurology - neuro/vitals Q6H - consider repeat LP for opening pressure - consider TVUS for teratoma - continue dexamethasone taper - consider consult to psychiatry # HTN - continue lisinopril 20mg # Anxiety - patient states she is not taking lorazepam - not taking celexa, consider restarting # Full Code # Routine - DVT PPx lovenox SQ - Regular Diet - Dispo - pending course.brief Neurology Attending I saw and evaluated the patient with the neurology team. I have reviewed the resident's history during the visit and I agree with the details as written. My physical examination confirms the resident's findings. The assessment and plan were formulated in discussion with me at the time of the visit and I agree with them as documented. Major issues addressed and plan: History: Patient with long history of many somatic complaints including migraine is now presenting with episodes of loss of contact and loss of memory. Exam: Neurologically nonfocal, however with clear sensorium could not tell me her own name. Data: EEG normal. Impression and plan: This is certainly a conversion disorder. Not knowing one's own identity while having a clear sensorium can be nothing but a psychiatric illness. However, in view of recent findings, the possibility of an underlying neurological disorder must be taken seriously and ruled out to the extent possible. MRI and lumbar puncture have previously been unremarkable, but she has not had special inflammatory/autoimmune CSF studies. My index of suspicion is not high enough to do another lumbar puncture whichin her case would be a very big deal. I think we should do a serum paraneoplastic antibody panel. A transvaginal ultrasound showed no evidence of teratoma. Something in her manner makes me think that there is a definite element of psychosis, apart from conversion/dissociation. I am going to put her on Thorazine at a modest dose. If she remains stable, she can be discharged tomorrow. Timur Coleman MD [place] [address] Pager #[phone] Email: [email or web address] documented in this encounter Procedure Notes * Ángel Haines MD - 10/27/2019 3:33 PM EDTAssociated Order(s): EEG AWAKE, ASLEEP, DROWSY [facility] Department of Neurology Outpatient EEG Report Name of the Patient: Kimberli Bales Date of : 1985 Date of Service: 10/27/2019 Referring physician: Juan Huerta MD BRIEF HISTORY: Kimberli Bales is a 33 y.o. patient with episodes of confusion and behavioral changes. MEDICATIONS: No current facility-administered medications for this encounter. Current Outpatient Medications Medication Sig Dispense Refill ??? acetaminophen (Tylenol) 500 mg Tablet Take 1,000 mg by mouth every 6 hours as needed for Pain. ??? fexofenadine/pseudoephedrine (JES-D 24 HOUR ORAL) Take 1 tablet by mouth as needed. ? ? dexamethasone (Decadron) 4 mg Tablet [...] daily (with meals). 90 tablet 12 ??? LORazepam (Ativan) 1 mg Tablet Take 1 tablet by mouth every 6 hours as needed for Anxiety. 15 tablet 0 ??? citalopram (CeleXA) 40 mg Tablet Take 1 tablet by mouth once daily 90 tablet 3 ??? lisinopriL (Prinivil;Zestril) 20 mg Tablet Take 1 tablet by mouth daily. 90 tablet 3 ??? ELDERBERRY FRUIT ORAL Take 1 gummy by mouth as needed (Cold season only). METHODS: A 21 channel digitized electroencephalogram was performed in the [facility] Clinical Neurophysiology Laboratory. The 10/20 international system of electrode placement was used and bipolar and referential electrode montages were recorded. In addition to EEG the patient was monitored for EKGand lateral/vertical eye movements. Video was recorded during the session. The duration of the recording was 60 minutes. PERSONAL BANKING ADVISOR'S REPORT: Performed by: CHANTAL Patient was sleep deprived. Sleep was attained. Photic stimulation was not performed. Hyperventilation was not performed. Effort was was not adequate. Movement and other artifact was not significant. Comments: None ELECTROENCEPHALOGRAPHER'S REPORT: Background During the awake state with the eyes closed the background consisted of a moderate amplitude, 9 Hz posterior reactive rhythm that attenuated appropriately with eye opening. Beta activity was distributed diffusely with an anterior predominance. There was a normal anterior-posterior voltage gradient.With eye opening the background activity changed to a low voltage mixture of alpha, beta, and occasional theta range frequencies. There were no significant asymmetries of background activity noted. Sleep Stage II sleep was not obtained. Hyperventilation Hyperventilation was not performed. Photic Stimulation Photic stimulation was not performed. Abnormal EEG Activity None EKG EKG was not connected. PRIOR EE10/10/2019: normal awake only EEG. INTERPRETATION: This EEG is normal during the awake and drowsy states. CLINICAL CORRELATION: Normal awake and drowsy EEG. No epileptiform discharges, events, or seizures. A normal EEG does notrule out epilepsy. If clinical suspicion remains, a longer study including sleep state will increase the sensitivity of the test. Ángel Haines MD 10/27/2019 5:05 PM Personal pager: [phone] Epilepsy Fellow CC: Amada Carson MD Associated attestation - Cheko Heath MD - 10/29/2019 11:27 AM EDT EPILEPSY ATTENDING ADDENDUM - I reviewed the Inpatient EEG with the PRICE CLERK/Epilepsy fellow, and I agree with the interpretation as documented. Cheko Heath MD, PhD Budget Record Clerk of Neurology [facility] Epilepsy [place] [facility] documented in this encounter ED Notes * Em Last RN - 10/27/2019 9:40 PM EDT Pt appears to be much calmer and is laying on stretcher with her eyes closed. Will continue to monitor. * Oumou Foreman LNA - 10/27/2019 8:49 PM EDT Pt has left. His name is Matias and the best number to reach him is [phone] He asked to be called with an update and did state that if she is being discharged he will come back to get her. * Em Last RN - 10/27/2019 7:45 PM EDT Upon checking on pt, pt was sitting in chair in the doorway with her holding on to her arm.Patient stated home. Pt then preceded to grab my ID badge and look it over. Then she pushed herself out of the doorway on the chair down the paula. Her grabbed her hand and pushed her back into the room. The door was then shut. I offered the patient something to eat and drink. [place] sandwich was given. Patient is very anxious and wants to leave. She is redirectable to a point at this time. at bedside. * Em Last RN - 10/27/2019 6:28 PM EDT Pt appears to be restless in her room, is at bedside. He report she has been trying to leave. Dr. Atkins is aware and is waiting for psychiatry to see patient. Patient was given warm blanketsand something to drink. Will continue to monitor pt closely. * Em Last RN - 10/27/2019 3:50 PM EDT Pt tolerated EEG well. She is resting on stretcher right now asking about her . Told her he called a little while ago and was asking how she was doing. We will continue to monitor pt. * Em Last RN - 10/27/2019 1:28 PM EDT Tech from EEG is at bedside starting pt's exam. * Afsaneh Huerta MD - 10/27/2019 12:04 PM EDT Chief Complaint Patient presents with ??? Altered Mental Status HPI: Kimberli Bales is a 33 y.o. female who presents to the ED with a significant history over the past several weeks of work-up for migraine headaches and psychogenic nonepileptic events. She was seen recently by Dr. Solano and had an EEG that was negative for epileptic seizure. 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 She has been through treatment with multiple medications for her migraines including Emgality and dexamethasone, none of which have worked for her headaches and she has stopped all medications. She comes in today complaining of 8 out of 10 headache and has a rapidly changing personality as I examine her. Her states that since their last visit starting on Saturday she has become aggressive and angry, with periods of throwing things around the house and throwing food at family members alternating with complete amnesia to the event. Past Medical History/Problem List: Past Medical History: Diagnosis Date ??? Abnormal cervical Papanicolaou smear 09/09/2018 ??? Diverticulosis of colon 09/09/2018 ??? Dysplasia of cervix 07/17/2006 ??? Dysuria 07/17/2006 episodes of dysuria and frequency but all negative cultures. If sx develop check Micro, MACHINE HELPER or stone. ??? Environmental and seasonal allergies ??? Hypertension 06/30/2019 ??? Post-op bleeding 02/08/2012 Following ??? Pyelonephritis 09/09/2018 ??? Strabismus ??? UTI (urinary tract infection) Patient Active Problem List Diagnosis Code ??? [...] mental status) R41.82 ??? Complicated migraine G43.109 Medications: No current facility-administered medications for this encounter. Current Outpatient Medications Medication Sig Dispense Refill ??? acetaminophen (Tylenol) 500 mg Tablet Take 1,000 mg by mouth every 6 hours as needed for Pain. ??? fexofenadine/pseudoephedrine (JES-D 24 HOUR ORAL) Take 1 tablet by mouth as needed. ? ? dexamethasone (Decadron) 4 mg Tablet [...] daily (with meals). 90 tablet 12 ??? LORazepam (Ativan) 1 mg Tablet Take 1 tablet by mouth every 6 hours as needed for Anxiety. 15 tablet 0 ??? citalopram (CeleXA) 40 mg Tablet Take 1 tablet by mouth once daily 90 tablet 3 ??? lisinopriL (Prinivil;Zestril) 20 mg Tablet Take 1 tablet by mouth daily. 90 tablet 3 ??? ELDERBERRY FRUIT ORAL Take 1 gummy by mouth as needed (Cold season only). Allergies: Allergies Allergen Reactions ??? Oxycodone-Acetaminophen Shortness Of Breath ??? Red Dye Other (See Comments) Stops heart Social History: Social History Tobacco Use ??? Smoking status: Former Smoker Packs/day: 0.25 Years: 2.00 Pack years: 0.50 Types: Cigarettes Quit date: 10/17/2017 Years since quittin.0 ??? Smokeless tobacco: Never Used Substance Use Topics ??? Alcohol use: Not Currently Frequency: Monthly or less Drinks per session: 1 or 2 Binge frequency: Never Family History: Family History Problem Relation Age [...] Amblyopia Neg Hx ??? Cancer Neg Hx ROS: I I am unable to elicit a complete review of systems with any reliability from the patient. She states other than headache she is not experiencing any fevers chills chest pain abdominal pain or back pain. She states that she is moving her bowels and having no dysuria. Her states that she has had times when she complains of headache and it appears more as if she does really have a headache. Today with her complaint of 8 out of 10 headache the location changes from posterior [place] she is smiling does not appear to have a headache Physical Exam:I have reviewed the vital signs and nursing notes. BP 131/90 Pulse 76 Temp 37.2 ??C (99 ??F) (Oral) Resp 23 LMP 01/18/2014 SpO2 94% General: Well-appearing, no distress, but waxing and waning mentation, going from very pleasant andsubdued to aggressive and ripping out her IV and pulse ox probe Head/Eyes/Ears/Nose/Throat: Atraumatic, conjunctiva clear Neck: FROM Lungs: No respiratory distress. Heart: RRR. Abdomen: Non-distended Back: No midline vertebral tenderness. Skin: No rashes. Neurologic: Alert and oriented to person, hospital, Saturday and October but thinks it is 2003 Psychiatric: Waxing and waning mood ED Course: This patient extensive course of migraine headaches with and without treatment question of seizures, question of Pnea, and altered mental status at home is not completely consistent with PNEA, nor with migraines. We will obtain a spot EEG, labs and consult neurology to work her up for encephalitis. Neurology is consulted and feel that the patient is clearly exhibiting psychosis and appropriate for admission to psychiatry. They will follow along, we have ordered a serum neoplastic panel and a transvaginal ultrasound to look for a teratoma. Her labs thus far including acetaminophen and salicylate Patient Vitals for the past 8 hrs: BP Temp Temp src Pulse Resp SpO2 10/27/19 1130 -- -- -- 76 23 94 % 10/27/19 1115 -- -- -- 69 17 -- 10/27/19 1100 131/90 -- -- 69 19 98 % 10/27/19 1047 133/89 37.2 ??C (99 ??F) Oral 72 13 95 % 10/27/19 1045 -- -- -- 71 15 99 % 10/27/19 1039 -- -- -- 75 14 99 % 10/27/19 1024 122/73 37.4 ??C (99.3 ??F) Oral 76 18 96 % Medical Decision Making Kimberli Bales is a 33 y.o. female who presents to the ED with new onset psychosis in the setting of extensive work-up for migraine headaches and possible PNEA, now exhibiting psychotic PMR Diagnosis: Altered mental status Disposition: Signed out to oncoming team for likely admission Condition: Hemodynamically stable but psychiatrically unstable MD Catherine Ceja Evadne G, MD 10/31/19 1100 * Em Last RN - 10/27/2019 12:00 PM EDT Patient ambulated to her new room, she was steady on her feet. Pt prefers to nod her head yes and no, but did answer some questions. She new she was in the hospital but didn't know which one. When asked what year it was she said Toilet paper. Pt is laying on her left side calm and cooperative. Warm blankets given. * Em Last RN - 10/27/2019 11:59 AM EDT I assumed care from RADHA Kirkland * Marita Avila RN - 10/27/2019 11:45 AM EDT Report to Dolores GARCIA. Ambulate to ED9w/ steady gait. * Marita Avila RN - 10/27/2019 11:[address] Huerta at bedside to assess pt. documented in this encounter Miscellaneous Notes * Plan of Care - Heather Yadav RN - 10/29/2019 4:11 AM EDT Problem: Patient Care Overview Goal: Plan of Care Review Outcome: Ongoing (Interventions Implemented as Appropriate) 10/29/19 0405 Coping/Psychosocial Plan Of Care Reviewed With patient Plan of Care Review Progress progress towards functional goals is fair OUTCOME EVALUATION NOTE: ?? OUTCOME SUMMARY: ?? Kimberli was A&Ox4 this shift, VSS on RA. Second neuro check, positive pronator drift on left.Left vocational instructor slightly weaker than right. Steady gait at that time. Voiding adequate urine. Pt slept well overnight. ?? PLAN MOVING FORWARD: ?? Neuro checks q6hr Monitor labs, VS, I&O D/C home today? ?? INDIVIDUALIZED FALL PREVENTION INTERVENTIONS: ?? Patient-specific fall risk factors per assessment: [current deficits]: New environment ?? Assistance [level of assistance required for transfers and ambulation]: SBA, eyes on ?? Supervision [direct monitoring required during toileting and ADLs]: SBA, eyes on ?? Surveillance [continuous indirect monitoring]: Bed alarm on, call light in reach, purposeful rounding ?? Patient-specific fall prevention interventions for sensory deficits provided, if applicable: [X] Yes ? CPG GOAL OUTCOME EVALUATION: Ongoing * Plan of Care - Lauren Ceron RN - 10/28/2019 9:25 PM EDT Problem: Patient Care Overview Goal: Plan of Care Review Outcome: Ongoing (Interventions Implemented as Appropriate) 10/28/19 0432 10/28/19 0741 Coping/Psychosocial Plan Of Care Reviewed With -- patient Plan of Care Review Progress progress towards functional goals is fair -- OUTCOME EVALUATION NOTE: OUTCOME SUMMARY: Pronator drift present this am. Not present in pm. Pt just nodding answers to most questions in morning. Speaking in the afternoon. Much brighter affect in afternoon. Started on Thorazine TID. in to visit most of day. Kimberli ambulated in the halls . Took shower independently. Appetite and fluid intake excellent. PLAN MOVING FORWARD: Plan is to dc home tomorrow on new medications Neuro VS checks q 6 hrs Monitor labs, Vitals and I and O INDIVIDUALIZED FALL PREVENTION INTERVENTIONS: Patient-specific fall risk factors per assessment: [current deficits]: Assistance [level of assistance required for transfers and ambulation]: Stand by assist Supervision [direct monitoring required during toileting and ADLs]: Independent with ADL's Surveillance [continuous indirect monitoring]: Call light within reach. Continue with hourly rounding. Bed alarm on. Patient-specific fall prevention interventions for sensory deficits provided, if applicable: CPG GOAL OUTCOME EVALUATION: Ongoing Goal: Individualization & Mutuality Outcome: Ongoing (Interventions Implemented as Appropriate) 10/28/19 0647 Mutuality/Individual Preferences What Anxieties, Fears or Concerns Do You Have About Your Health or Care? none What Questions Do You Have About Your Health or Care? none What Information Would Help Us Give You More Personalized Care? na Goal: Fall Prevention-Safe Patient Handling Outcome: Ongoing (Interventions Implemented as Appropriate) 10/27/19 2303 10/28/19 1500 Daily Care Interventions Self-Care Promotion -- BADL personal objects within reach;BADL personal routines maintained Taveras Fall Risk History of Falling -- 0 Secondary Diagnosis -- 15 Ambulatory Aids -- 0 Intravenous Therapy/Heparin/Saline Lock -- 20 Gait/Transferring -- 0 Mental Status -- 0 Score -- 35 OTHER Taveras Fall Risk High -- Restraint Interventions Safety Promotion/Fall Prevention -- fall prevention program maintained;nonskid shoes/slippers when out of bed;safety round/check completed Positioning Body Position -- foot of bed elevated;supine Activity Activity Type -- ambulated in room;ambulated to bathroom Activity Assistance Provided -- assistance, stand-by Assistive Device Utilized -- none Goal: Infection Control Outcome: Ongoing (Interventions Implemented as Appropriate) 10/28/19 0741 10/28/19 1500 Safety Interventions Isolation Precautions -- standard precautions maintained Infection Prevention -- visitors restricted/screened;single patient room provided;rest/sleep promoted;environmental surveillance performed Coping Strategies Supportive Measures active listening utilized;verbalization of feelings encouraged -- Goal: Discharge Needs Assessment Outcome: Ongoing (Interventions Implemented as Appropriate) 10/28/19 0432 Discharge Needs Assessment Readmission Within The Last 30 Days previous discharge plan unsuccessful Discharge Disposition still a patient Current Health Anticipated Changes Related to Illness inability to care for self;inability to care for someone else;inability to work (with frequent AMS episodes) Goal: Interdisciplinary Rounds/Family Conf Outcome: Ongoing (Interventions Implemented as Appropriate) 10/28/19 2115 Interdisciplinary Rounds/Family Conf Participants patient;nursing;family;physician * Initial Assessments - Mattie Gao RN - 10/28/2019 11:39 AM EDT Office of Care Management Initial Assessment Mattie Gao RN reviewed record and discussed patient with Care Team. Source of Information: General Neuro Team, Charge nurse chart review, and interviewing patient's spouse. Introduced self/reviewed role; services accepted. Reason for Hospitalization: Reason for Admission as Stated by Patient: did not state <principal problem not specified> Per H&P note by Roosevelt Joseph : Kimberli Blanco Baltazar??is a 33 y.o.??right??handed female with a PMH of complicated migraine, PNES, ELMA, HTN, and obesity who is presenting to the ED with episodes of AMS. Past Medical History: Diagnosis Date ??? Abnormal cervical Papanicolaou smear 09/09/2018 ??? Diverticulosis of colon 09/09/2018 ??? Dysplasia of cervix 07/17/2006 ??? Dysuria 07/17/2006 episodes of dysuria and frequency but all negative cultures. If sx develop check Micro, MACHINE HELPER or stone. ??? Environmental and seasonal allergies ??? Hypertension 06/30/2019 ??? Post-op bleeding 02/08/2012 Following ??? Pyelonephritis 09/09/2018 ??? Strabismus ??? UTI (urinary tract infection) Last Covid 10/27/19 @ 2147 Hospitalizations Within the Past 30 Days: 10/16/28 [facility] 5 hours altered LOC 10/11 - 10/14 ED to Adm: APD altered LOC w/MCGARRY 10/10 ED 3 hours MCGARRY 10/09 ED 5 hours MCGARRY 09/27 - 09/28 ED to Admission Primary: Transient alteration of awareness, possible seizure disorderAVM Anticipated Length Of Stay (If known): Expected Length of Hospitalization: pending POC Vs TBD Current Decision-Making Capacity: Patient intermittently confused per admission and nursing note. Advance Care Planning: Attempt Cardiopulmonary Resuscitation - Inpatient No AD in [facility]. Spouse agreed to have AD done w/SW while in hospital. He stated that his mighthave one in the dresser drawer. ?? If AD's have not been completed spouse Farhan Bales @ [phone] would be surrogate decisionmaker per [place] surrogate decision making law. Behavioral Health History: Anxiety - not treated at this time Substance Use/Abuse: Pt's spouse endorses 1/2 PPD, about 1 drink a week alcohol and denies any other non-prescription substances Current Coping/Education/Information Needs: Spouse states they are coping well with hospital stay and feels updated on issues and plan.? Current Functional Ability: SBA eyes on per nursing note ?? Functional Status Prior to Admission: Fulling independent w/ADL's and ambulation ? Home Environment: multlevel: 13 stairs entry w/railing; 13 stairs inside w/railing No problem w/stairs [id number] [facility] [address] [place] [address] ?? Social & Family Supports/Community Resources: Lives w/spouse and 2 children With family nearby to help; feels like they have enough help and support ?? Extended Emergency Contact Information Primary Emergency Contact: Farhan Bales [facility] Relation: Spouse ? Health/Prescription Coverage: ? Primary Insurance: MVP ? Secondary Insurance: N/A ? Prescription Coverage: ? Preferred Pharmacy: [facility] [address] [place] [address] ?? [facility] - [place] [address] ? Other: none ?? Primary Care Provider: Amada Carson MD [phone] ?? Patient/Caregiver Goals of Treatment: return to previous level of function ?? Potential Needs for Transition of Care: Discussed with patient and family levels of rehab includingSNF, swing, acute and VNA home health care also discussed. Discussed need to accept first bed available when patient is medically ready. ? Rehab/SNF: None Home Health: None ? DME: none ? Dialysis: NA ? Community Resources: none Transportation: car w/spouse ? Other: none ?? Anticipated Barriers to Discharge/Special Considerations: none identified; Of note, Pt has had 2 hospital admissions and 3 ED visits in the past month for similar symptoms ?? Assessment: Patient is admitted to neurology service for evaluation Pt lives w/spouse and 2 children 8 and 10 years old in a multilevel home w/12 stairs to enter and 12 stairs inside, both with railings. They have family support to help at home. Mattie Gao RN Case Manager Pager [phone] Extension [phone] * Plan of Care - Heather Yadav RN - 10/28/2019 4:40 AM EDT Problem: Patient Care Overview Goal: Plan of Care Review Outcome: Ongoing (Interventions Implemented as Appropriate) 10/28/19 0432 Coping/Psychosocial Plan Of Care Reviewed With patient Plan of Care Review Progress progress towards functional goals is fair OUTCOME EVALUATION NOTE: OUTCOME SUMMARY: Kimberli confused at transfer to 1W earlier this shift, see previous note. At 0400 pt was able to correctly answer A&O questions. Pt asked why she was here, how long has she been here, and whereher spouse was. Denied any remembrance of previous interactions. Upon initial neuro assessment, pt's left vocational instructor was slightly weaker and has positive pronator drift. But with encouragement, pt had equal strengths and no drift. aware. VSS on RA, spot checking SpO2/pulse. UA/culture collected, urinedumped before urine drug screen collected. Pt slept well throughout shift. PLAN MOVING FORWARD: Neuro checks q6hr Monitor labs, VS, I&O Urine drug screen INDIVIDUALIZED FALL PREVENTION INTERVENTIONS: Patient-specific fall risk factors per assessment: [current deficits]: Mild weakness, confusion, new environment Assistance [level of assistance required for transfers and ambulation]: SBA, arms reach Supervision [direct monitoring required during toileting and ADLs]: SBA, eyes on Surveillance [continuous indirect monitoring]: Bed alarm on, call light in reach, purposeful rounding Patient-specific fall prevention interventions for sensory deficits provided, if applicable: [X] Yes CPG GOAL OUTCOME EVALUATION: Ongoing Goal: Fall Prevention-Safe Patient Handling Outcome: Ongoing (Interventions Implemented as Appropriate) 10/27/19230210/28/191310/28/19431 Daily Care Interventions Self-Care Promotion -- -- independence encouraged;BADL personal objects within reach;BADL personal routines maintained Taveras Fall Risk History of Falling 0 -- -- Secondary Diagnosis 15 -- -- Ambulatory Aids 0 -- -- Intravenous Therapy/Heparin/Saline Lock 20 -- -- Gait/Transferring 10 -- -- Mental Status 15 -- -- Score 60 -- -- OTHER Taveras Fall Risk High -- -- Restraint Interventions Safety Promotion/Fall Prevention activity supervised;fall prevention program maintained;muscle strengthening facilitated;nonskid shoes/slippers when out of bed;safety round/check completed -- -- Positioning Body Position -- independent;side-lying, left -- Activity Activity Type ambulated in room -- -- Activity Assistance Provided assistance, stand-by -- -- Assistive Device Utilized none -- -- Goal: Infection Control Outcome: Ongoing (Interventions Implemented as Appropriate) 10/27/192302 Safety Interventions Isolation Precautions standard precautions maintained Infection Prevention environmental surveillance performed;equipment surfaces disinfected;personal protective equipment utilized;rest/sleep promoted;single patient room provided Coping Strategies Supportive Measures positive reinforcement provided;self-care encouraged Goal: Discharge Needs Assessment Outcome: Ongoing (Interventions Implemented as Appropriate) 10/28/19431 Discharge Needs Assessment Readmission Within The Last 30 Days previous discharge plan unsuccessful Discharge Disposition still a patient Current Health Anticipated Changes Related to Illness inability to care for self;inability to care for someone else;inability to work (with frequent AMS episodes) Goal: Interdisciplinary Rounds/Family Conf Outcome: Ongoing (Interventions Implemented as Appropriate) 10/28/19 0432 Interdisciplinary Rounds/Family Conf Participants nursing;patient * Consult Note - Chase Wells MD - 10/27/2019 6:51 PM EDT EMERGENCY DEPARTMENT PSYCHIATRIC EVALUATION The patient was seen at 1900 (time). Time Spent: 60 minutes Referral Source: Dr. Huerta Additional Attendee(s) (identify by relationship to pt.): Information source: Patient. Family. Relationship to patient: . Electronic Medical Record. Chief Complaint: 33 y.o. Female presents to [facility] Emergency Department with three days of worsening episodes of dissociation, neuro has cleared. History of Present Illness: (1,1,4) Neuro workup including MRI, LP, EEG negative [...] Denies AVH. Episodes not correlated with headaches. Psychiatric Review of Systems: Sustained Depressed Mood: No Sustained Elevated Mood: No Sustained Irritable Mood: Yes Flashbacks: No Nightmares: Yes Panic Attacks: Yes yes at night, last about a half hour Chronic Worry: Yes Psychotic Symptoms: No Obsessions/Compulsions: No Violence: No Self Harm: No Suicide Risk Factors on Day of ED Presentation: Enduring Factors: chronic mental health problems, limited coping skills, poor emotional regulation and impulsive or aggressive tendenancies Dynamic Factors: access to firearms Protective Factors: family and community support, engaged in medical and/or mental health care and future orientation Access to Firearms: Yes confirmed locked Other Psychiatric History: Prior diagnoses: Anxiety Past hospitalization and location: Last month here on neuro Suicide attempt details: No prior attempts Past psychiatric medications: Citalopram Lorazepam hydroxyzine Substance Use History/Treatment: Denies all Outpatient Medications: No current facility-administered medications on file prior to encounter. Current Outpatient Medications on File Prior to Encounter Medication Sig Dispense Refill ??? acetaminophen (Tylenol) 500 mg Tablet Take 1,000 mg by mouth every 6 hours as needed for Pain. ??? fexofenadine/pseudoephedrine (JES-D 24 HOUR ORAL) Take 1 tablet by mouth as needed. ? ? dexamethasone (Decadron) 4 mg Tablet [...] daily (with meals). 90 tablet 12 ??? LORazepam (Ativan) 1 mg Tablet Take 1 tablet by mouth every 6 hours as needed for Anxiety. 15 tablet 0 ??? citalopram (CeleXA) 40 mg Tablet Take 1 tablet by mouth once daily 90 tablet 3 ??? lisinopriL (Prinivil;Zestril) 20 mg Tablet Take 1 tablet by mouth daily. 90 tablet 3 ??? ELDERBERRY FRUIT ORAL Take 1 gummy by mouth as needed (Cold season only). Allergies: Allergies Allergen Reactions ??? Oxycodone-Acetaminophen Shortness [...] mental status) R41.82 ??? Complicated migraine G43.109 Past Medical/Surgical History: Past Medical History: Diagnosis Date ??? Abnormal cervical Papanicolaou smear 09/09/2018 ??? Diverticulosis of colon 09/09/2018 ??? Dysplasia of cervix 07/17/2006 ??? Dysuria 07/17/2006 episodes of dysuria and frequency but all negative cultures. If sx develop check Micro, MACHINE HELPER or stone. ??? Environmental and seasonal allergies [...] at [facility] ??? PRO STRABISMUS SURG,PLACE ADJUST SUTURE Right 12/31/2013 STRABISMUS SURGERY, PLACEMENT OF ADJUSTABLE SUTURES IN CONJUNCTION W/ ANOTHER SURGERY performed by Genevieve Walsh MD at [facility] ??? PRO STRABISMUS SURG,SCAR EXTRAOCUL MUSC Right 02/01/2014 STRABISMUS SURGERY WITH SCARRING OF EXTRAOCULAR MUSCLES IN CONJUNCTION W/ ANOTHER SURGERY performedby Genevieve Walsh MD at [facility] ??? SINUS SURGERY ??? TUBAL LIGATION Bilateral 04/24/2011 [facility]; Sherrell Schmidt MD ??? WISDOM TOOTH EXTRACTION N/A 07/01/2002 [facility]; AILEEN RIVERA, DMD No change recently Family Medical/Psychiatric History: Denies all psychiatric FHx Social History: Lives with in [place], as well as two kids. 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 Hasbeen filling time with sleeping. Vitals (24hr Range): Patient Vitals for the past 24 hrs: Temp Heart Rate From SP02 Pulse Resp BP SpO2 O2 Device 10/27/19 1024 37.4 ??C (99.3 ??F) -- 76 18 122/73 96 % RA 10/27/19 1039 -- 75 bpm 75 14 -- 99 % -- 10/27/19 1045 -- 71 bpm 71 15 -- 99 % -- 10/27/19 1047 37.2 ??C (99 ??F) 72 bpm 72 13 133/89 95 % -- 10/27/19 1100 -- 70 bpm 69 19 131/90 98 % -- 10/27/19 1115 -- -- 69 17 -- -- -- 10/27/19 1130 -- 81 bpm 76 23 -- 94 % -- 10/27/19 1200 -- 68 bpm 68 14 118/64 97 % -- 10/27/19 1230 -- 67 bpm 67 13 122/74 94 % -- 10/27/19 1330 -- 68 bpm 68 16 -- 96 % -- 10/27/19 1345 -- 70 bpm 69 17 -- 97 % -- 10/27/19 1400 -- 75 bpm 75 18 -- 97 % -- 10/27/19 1415 -- 74 bpm 73 16 -- 96 % -- 10/27/19 1430 -- 72 bpm 71 16 -- 96 % -- 10/27/19 1530 -- -- 74 15 -- -- -- Musculoskeletal System: normal gait and balance and ambulates independently Mental Status Exam: ?? Appearance: age appropriate and casually dressed ?? Behavior: hostile with interview, restless and good eye contact ?? Speech: At times loud, at other times soft, normal rhythm, nonprofane ?? Language: fluent in emirati ?? Mood: I want to go ?? Affect: irritable ?? Thought Process: linear and logical ?? Associations: intact ?? Thought Content: denied homicidal ideation, denied suicidal ideation, no bizarre delusions and no paranoid delusions ?? Perception: denied auditory hallucinations denied visual hallucinations not observed responding to internal stimuli + reports of derealization ?? Orientation: grossly intact by interview ?? Attention/Concentration: distractable ?? Cognition: grossly intact by interview ?? Memory: recent and remote memory grossly intact ?? Fund of Knowledge: Not assessed ?? Insight: limited ?? Judgment: limited Labs: Psychiatry Labs (Last 24 hours): Preg: No results found for: HCGQUAL, HCGQUANT Heme: Lab Results Component Value Date WBC 9.2 10/27/2019 HGB 13.1 10/27/2019 HCT 40.4 10/27/2019 PLATELET 316 10/27/2019 MCV 90.8 10/27/2019 NEUTROABS 5.85 10/27/2019 No results found for: HA1C, SEDRATE Chem: Lab Results Component Value Date NA 138 10/27/2019 K 4.4 10/27/2019 CL 101 10/27/2019 CO2 26 10/27/2019 BUN 7 (L) 10/27/2019 GLUCOSE 89 10/27/2019 Lab Results Component Value Date CALCIUM 9.4 10/27/2019 LFTs: No results found for: ALT, AST, GGT, ALKPHOS, BILITOT, AMMONIA Coags: No results found for: PTT, PT, INR Thyroid: No results found for: TSH, Q6WJUHA, TT4 Lipids and HgbA1C: No results found for: CHLPL, HDL, CHOLHDL, LDLCHOL, LDLDIRECT, TRIG No results found for: HA1C Vit Lvls: No results found for: NEANBMUE67, SFOLATE UA: No results found for: GLUCOSEU, KETONESUA, PROTEINUADIP, BLOODUADIP, LEUKOESTERUA, NITRATEUA, WBCUA (May not represent most recent UA results. See eD-H labs for more details.) Tox: Lab Results Component Value Date ACTMNPHEN <5 (L) 10/27/2019 SALICYLATE <3 10/27/2019 No results found for: UDAUSCREEN Rx Lvls: No results found for: LITHIUM, CARBAMAZEPIN, VALPROATE, LAMOTRIGINE, CLOZAPINE Assessment: (including Suicide Risk Assessment) Kimberli Bales is a 33 y.o. Female with history of PNES, migraines who presents to [facility] with episodes of derealization and irritability. Neuro [...] no current, or history of, suicidalideation. Diagnosis: Dissociative Disorder Plan: # Dissociative Disorder Hx anxiety PNES ?? Patient does not require, nor is she amenable to, inpatient psychiatric hospitalization ?? Recommend fdc psychotherapy, and consider trial of atypical ?? Referral to Psychiatry 5D placed ?? Provided pt and with information to contact [facility], local community mental health lawn sprinkler servicer, in order to arrange therapist and potentially also provider # Suicide Risk Mitigation ?? Denies SI ?? We did discuss gun in the home, and recommendation to keep locked and inaccessible to pt ?? Pt and feel safe to return home - Patient to discharge to home Signed By: Chase Wells MD 10/27/2019 Associated attestation - Prema Gurrola MD - 10/28/2019 9:11 AM EDT I discussed this patient's clinical situation with the resident while the patient was in the emergency room, but did not see the patient. I contributed to the formulation and treatment planning as documented in the resident's note. Prema Gurrola MD * Consult Note - Betty Talamantes H - 10/27/2019 2:03 PM EDT Neurology Consultation Note - 10/27/2019 Patient name: Kimberli Bales Date of : 1985 PCP: Amada Carson MD CC: Continued 'spells' of unawareness HPI: Kimberli Bales is a 33 y.o. female with a history of hemicrania continua, complicated migraine,hypertension and anxiety who presented to the ED with her who reported continued episodes of unawareness. Remainder of interview conducted only with patient. She reports having 'spells' that began in August,right after she began Emgality for her headaches, where she loses consciousness for several hours and is unable to recall any events that occurred during that time. The episodes occur approximately 2x per day and do not occur during sleep. The patient states she experiences confusion for several hours following these episodes, including being unaware of her identity and her surroundings. While the frequency of these episodes has remained constant since August, the ED team reported that her was concerned due to worsened agitation (ripping items up, throwing them across the room) during recent episodes. She denies any aggravating/alleviating factors. She denies any bruising or noticeable tongue bites following episodes, but does endorse a severe frontal headache (similar in location to her chronic headaches). She denies vision changes, nausea/vomiting, chest pain, trouble breathing, and changes toher bladder/bowerl function. She denies any history of recorded seizures as well as any family history of seizure disorders. Of note, the patient has had frequent ED visits and hospitalizations due to both similar symptoms and in the past, due to severe headaches. Regarding her headaches, she was reportedly previously diagnosed with IIH although there is no elevated opening pressure on file with several LPs in the past; she was later diagnosed with hemicrania continua and has been on several medications for chronic headache. Regarding symptoms related to the patient's current presentation, please see the following timelineof events: 09/29/19: Transferred from [facility] for altered mental status and abnormal CT findings concerning for AVM. An outpatient routine EEG was ordered to look for possible seizure related to her AVM. Her spell was thought to be non physiologic. She was able to ambulate with ease and was back to her normal cognitive baseline prior to discharge. ?? 10/10/19: Presented to ED with several episodes of unresponsiveness, including occurrence in the ED.EEG was negative for any seizure activity. ED recommended evaluation by the psychiatric service with concern for conversion disorder. The patient declined psychiatric evaluation and elected to be discharged home. 10/11/19: Presented to ED with 4d history of headache refractory to indomethacin and Excedrin. The patient was given Tylenol, Benadryl, Compazine and a liter of IV fluid. Upon reevaluation the patientstates that her headache had improved and she felt comfortable to be discharged home. 10/12/19-10/15/19: Presented to [facility] with severe headaches and syncope, initially arriving unconsciousand diaphoretic. LP in ED was negative. Consult with Dr. Salguero: As long as the patient is not having any recurrent events I do not think video EEG monitoring is indicated as the yield may be low. However the patient could be seen in our outpatient seizure clinic for further work-up. From what is reported this seems to be significant nonphysiologic symptomatology so that nonepileptic seizures also have to be considered. Final diagnosis was complicated migraine: There was a question as to whether or not these new symptoms were a side-effect from Emgality, a monoclonal antibody she started recently to treat migraine.Her headaches were treated successfully while she was in the hospital with NSAIDs and anti-histamines. She was evaluated by tele-psychiatry, who felt that conversion disorder was unlikely. She was dis charged on indomethacin and hydroxyzine with plans to follow up with the headache clinic on the dayafter discharge. 10/17/19: Presented to ED with episode of passing out during prior evening with 3 min episode of shaking, foaming at the mouth. reported her mental status improved after approximately an hour, and then she went to bed. Presentation felt to be consistent with complicated migraine. 10/23/19: Seen by Dr. Vance in Clinic, who discussed the diagnosis of non- epileptic events with the patient given the she had several typical events on 10/09 without epileptiform change on EEG. Emgality was discontinued. Recommended CBT if psychogenic non-epileptic events continued. Past Medical & Surgical History: Past Medical History: Diagnosis Date ??? Abnormal cervical Papanicolaou smear 09/09/2018 ??? Diverticulosis of colon 09/09/2018 ??? Dysplasia of cervix 07/17/2006 ??? Dysuria 07/17/2006 episodes of dysuria and frequency but all negative cultures. If sx develop check Micro, MACHINE HELPER or stone. ??? Environmental and seasonal allergies [...] at [facility] ??? PRO STRABISMUS SURG,PLACE ADJUST SUTURE Right 12/31/2013 STRABISMUS SURGERY, PLACEMENT OF ADJUSTABLE SUTURES IN CONJUNCTION W/ ANOTHER SURGERY performed by Genevieve Walsh MD at [facility] ??? PRO STRABISMUS SURG,SCAR EXTRAOCUL MUSC Right 02/01/2014 STRABISMUS SURGERY WITH SCARRING OF EXTRAOCULAR MUSCLES IN CONJUNCTION W/ ANOTHER SURGERY performedby Genevieve Walsh MD at [facility] ??? SINUS SURGERY ??? TUBAL LIGATION Bilateral 04/24/2011 [facility]; Sherrell Schmidt MD ??? WISDOM TOOTH EXTRACTION N/A 07/01/2002 [facility]; AILEEN RIVERA, LAUREN Home Medications: No current facility-administered medications on file prior to encounter. Current Outpatient Medications on File Prior to Encounter Medication Sig Dispense Refill ??? acetaminophen (Tylenol) 500 mg Tablet Take 1,000 mg by mouth every 6 hours as needed for Pain. ??? fexofenadine/pseudoephedrine (JES-D 24 HOUR ORAL) Take 1 tablet by mouth as needed. ? ? dexamethasone (Decadron) 4 mg Tablet [...] daily (with meals). 90 tablet 12 ??? LORazepam (Ativan) 1 mg Tablet Take 1 tablet by mouth every 6 hours as needed for Anxiety. 15 tablet 0 ??? citalopram (CeleXA) 40 mg Tablet Take 1 tablet by mouth once daily 90 tablet 3 ??? lisinopriL (Prinivil;Zestril) 20 mg Tablet Take 1 tablet by mouth daily. 90 tablet 3 ??? ELDERBERRY FRUIT ORAL Take 1 gummy by mouth as needed (Cold season only). Allergy: Allergies Allergen Reactions ??? Oxycodone-Acetaminophen Shortness Of [...] Neg Hx ??? Cancer Neg Hx Social History: Social History Socioeconomic History ??? Marital status: [...] file Gets together: Not on file Attends yazidism service: Not on file Active member of [...] Social History Narrative ??? Not on file Review of systems: As per HPI. Physical Exam: Vitals: Temp: [37.2 ??C (99 ??F)-37.4 ??C (99.3 ??F)] Heart Rate: [67-76] Resp: [13-23] BP: (118-133)/(64-90) SpO2: [94 %-99 %] Heart Rate from SpO2: [67 bpm-81 bpm] Gen: Intermittently responding to questions with child-like voice. Not in acute distress. Neuro Exam: MENTAL STATUS: The patient is oriented to location and date, not oriented to identity. Speaking faintly and often restricting answers to one-word or refusing to answer. Mildly flat affect. CRANIAL NERVES: PERRL, EOMI. No evidence of facial asymmetry. Hearing normal and equal bilaterally,tongue and palate midline. SCM/trapezius strength normal. MOTOR: Muscle tone examination showed normal tone and bulk within the upper and lower extremities. Muscle strength testing revealed 5/5 power in the left and right upper and lower extremities. Deep tendon reflexes were 2/4 throughout. The plantar reflex was unable to be assessed, patient withdrew and was not cooperative with continued assessment. SENSORY: Normal light touch and proprioception sense. COORDINATION: There was no evidence for postural or action tremor. There was no dysmetria seen on [id number]. Rapid alternating movements were normal bilaterally. GAIT: Not assessed. Labs: Recent Results (from the past 24 hour(s)) Basic Metabolic Panel (non-fasting) Result Value Ref Range Glucose Lvl 89 65 - 199 mg/dL BUN 7 (L) 8 - 18 mg/dL Creatinine 0.62 (L) 0.70 - 1.20 mg/dL Sodium 138 135 - 145 mmol/L Potassium 4.4 3.5 - 5.0 mmol/L Chloride 101 98 - 107 mmol/L CO2 26 22 - 31 mmol/L Anion Gap 11 5 - 15 mmol/L Calcium 9.4 8.5 - 10.5 mg/dL eGFR 117 >=60 mL/min/1.73 m?? eGFR 135 >=60 mL/min/1.73 m?? Acetaminophen level Result Value Ref Range Acetamin Lvl <5 (L) 10 - 30 mg/L Salicylate Result Value Ref Range Salicylate Lvl <3 mg/L Hemogram Result Value Ref Range WBC 9.2 4.0 - 9.5 x10(3)/mcL RBC 4.45 4.00 - 5.21 x10(6)/mcL Hemoglobin 13.1 11.7 - 15.5 gm/dL Hematocrit 40.4 35.7 - 45.8 % MCV 90.8 82.6 - 94.4 fL MCH 29.4 27.1 - 32.0 pg MCHC 32.4 31.7 - 35.0 gm/dL Platelets 316 145 - 357 x10(3)/mcL RDWSD 42.0 37.0 - 46.0 fL RDWCV 12.7 11.5 - 14.1 % MPV 10.2 7.6 - 12.9 fL nRBC % Auto 0.0 % nRBC Abs Auto 0.000 0.000 - 0.000 x10(3)/mcL Differential, Automated Result Value Ref Range Neutrophils % 63.7 % Neutr Abs (ANC) 5.85 1.70 - 6.10 x10(3)/mcL Lymphocytes % 26.9 % Lymphocytes Abs 2.5 0.9 - 3.2 x10(3)/mcL Monocytes % 7.5 % Monocyte Abs 0.7 0.3 - 0.9 x10(3)/mcL Eosinophils % 1.2 % Eosinophils Abs 0.1 0.0 - 0.4 x10(3)/mcL Basophils % 0.2 % Basophils Abs 0.0 0.0 - 0.1 x10(3)/mcL Immature Gran % 0.50 % Roberta Gran Abs 0.05 (H) 0.00 - 0.04 x10(3)/mcL Blue Tube HOLD Result Value Ref Range Blue Hold Sample in lab. Gold Tube HOLD Result Value Ref Range Gold Hold Sample in lab. Chaves Tube Hold Result Value Ref Range Chaves Hold Sample in lab. Diagnostic Tests and Imaging: Most Recent Imaging (please see EMR for prior Imaging): CT Head 10/17/19 IMPRESSION No acute intracranial hemorrhage or mass effect. CTA 10/13/19 IMPRESSION 1. Unchanged head CT. No new intracranial abnormality. 6 mm left frontal cavernous malformation is unchanged compared to recent prior studies. 2. No evidence of large vessel occlusion or stenosis on CT angiogram of the head or neck. 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 Lumbar punctures: Please see EMR for several prior LP results. All negative except on 11/16/17, sample had elevated protein (60) likely confounded by elevated RBC ([id number]). Assessment and Plan: Kimberli Bales is a 33 y.o. female with a history of hemicrania continua, complicated migraine,hypertension and anxiety who presented to the ED with her who reported continued episodes of unawareness. Patient has had an extensive history of similar symptoms, as per timeline above, and has had a thorough work-up for alternative etiologies of her symptoms. Thus far, all EEGs have returned negative and there does not appear to be any correlation between her imaging findings (cavernous malformation)and her current symptoms. In addition, the patient does not have any concerning findings upon exam and her inability to recall her identity raises concern for a psychogenic etiology. 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 However, autoimmune encephalitis remains in the differential, although it is unlikely given an APE score = 2 (>4 = 98% sensitivity). [facility] did perform an LP recently (end of September, negative) but did not have any remaining sample to send out for testing. Recommend ordering serum paraneoplastic panel for initial evaluation, although usually most sensitive for LG1. Recommending a transvaginal ultrasound for evaluation of ovarian teratoma, given that up to 50% of patients with autoimmune encephalitis can present with tumors including teratomas. If all of the above are negative, it may be reasonable to schedule an outpatient fluoro-guided LP following discharge. Otherwise, given that the patient's symptoms are likely to be psychogenic in etiology and that her reports concern regarding erratic behavior at home, it would be reasonable to admit to Psychiatry for further evaluation and treatment of her cognitive symptoms. # Recommendations - routine EEG complete, negative upon initial read - serum paraneoplastic panel - consider transvaginal ultrasound for evaluation of ovarian teratoma - discuss admission to Psychiatry given patient's erratic behavior/episodes at home - consider outpatient fluoro-guided LP for further evaluation of autoimmune encephalitis ?x Consult service will continue to follow patient. Recommendations are above, please page if further consultation required. ?? Betty Talamantes Neurology # [id number] 10/27/2019 * Consult Note - Timur Coleman MD - 10/27/2019 1:33 PM EDT Neurology Consult Note Patient name:Kimberli Bales Date of :1985 Admit date: 10/27/2019 Primary Attending: Afsaneh Huerta MD Neurology Consult Attending: Dr. Coleman CC: episodes concerning for autoimmune encephalitis We have been asked to see Kimberli Bales by Dr. Huerta HPI: Kimberli Bales is a 33 y.o. right handed female with a PMH of complicated migraine, PNES, ELMA, HTN, and obesity who is presenting to the ED with episodes of AMS. Bree is well known to the neurology service. Patient follows with Ashwini Campuzano in [facility]. Headaches began after of second child which was complicated by blood loss requiring multiple transfusions. An LP in 2012 while patient was on diamox 125 mg BID for presumedIIH was found to be 23 cm H2O. Headache describes at right temporal that crossed midline with a thro bbing quality. Associated symptoms included dizziness and tunnel vision. Repeat LP later tat year revealed an opening pressure of 17 cm H2O. Ophthalmology saw patient in 2017 and noted no evidence ofpapilledema on exam and recommend discontinuation of diamox. She was admitted to the neurology service in October 2017 for worsening of her headaches. Workup including MRI, MRV, and MRA was unremarkable. She had symptoms of stuttering that improved after LP.During this LP, opening pressure was measure at 4 cm H2O. Headache did not resolve with LP but symptoms of stuttering did, thought to be functional in nature. She was ultimately diagnosed with hemicranium continua and placed on indomethacin.?? Currently, Bree is complaining of headaches and episodes of AMS. Bree has been to the ED multiple times. She was admitted to the neurology service from 09/27-09/28 for having an episode of transient loss of time. She originally went to [facility] but after finding a vessel abnormality and concern for possible seizure, she was transferred for EEG monitoring. As per the discharge summary on 09/28: ?? Her CT showed increase in size of her vascular malformation. MRI vessel imaging was done and revealed no acute changes. An outpatient routine EEG was ordered to look for possible seizure related to her AVM. Her spell was thought to be non physiologic, but referral to epilepsy or general neuro may be considered should these spells recur/continue. It is also possible that she had a vasosovagal/syncopal episode. ?? She also complained of bilateral achy leg pain up to her mid-thighs symmetrically. She denied any sensation changes. Duplex US of bilateral legs was done and it was negative for DVTs. CK was normal. She had subjective left sided weakness which was also likely non physiologic in origin. 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 She was able to ambulate with ease and was back to her normal cognitive baseline prior to discharge. She then continued to have multiple ED visits along with hospital admissions outlined below: 10/09: She went to [facility] ED for more episodes of syncope and shaking. She had routine EEG which was unremarkable. 10/10: Again went to [facility] ED with headache and passing out episodes, was neurologically intact, and improved after fluids, IV Compazine, Benadryl and p.o. Tylenol 10/11-10/14: She then returned to [facility] on 10/11 for similar complaints. She was admitted with multiple witnessed episodes of lack of responsiveness. An LP under flouro guidance was performed to rule out any infectious causes and ultimately was unremarkable. 2 cc was taken and there was no reserved CSF for further studies. Psychiatry was consulted who states this may be conversion disorder. Emgality was stopped in the event this was contributed to her symptoms. She was then discharged on 10/14 with indomethacin, Compazine and hydroxyzine with plans to follow-up with the headache clinic 10/15: Appointment with Ashwini Campuzano, her headache provider. She was instructed her to stop indomethacin and Compazine, and patient was given a dexamethasone taper for 10 days. 10/16: Seen again at [facility] ED with complaints of continued headache with passing out episodes when pain gets overwhelming. at this time described seizure like activity that was followed by confusion for an hour. She was complaining of 10/10 MCGARRY associated with N/V and left arm and leg weakness as well as left shoulder and leg pain. Provider witnessed a spell which consited of her clenching her teeth and did not appear epileptic. She was given 0.5 mg of ativan with relief of spell. CT headand c spine was unremarkable (performed because reported to hit head the day prior). Lab work appeared to have WBC of 15.8, lactate of 2.1 and elevated bicarb of 21 and glucose of 201 thought all to be related to dehydration. She was discharged later that day after relief from headache. 10/22: Epilepsy clinic visit at [facility] with Dr. Vance. After careful review of her chart, it was thought that her presentation was consistent with PNES. Since her discharge from [facility], she has been having more episodes of loss of time. The events last for a few hours and now will occur twice a day. They occur always when she is awake.When she wakes upfrom these episodes she has an overwhelming sense of guilt. She also notes some confusion for a couple of hours. She says she does not know who she is or where she is. She does state she has headaches in the front but is different from her normal headaches. She says it hurts more than her headaches. She denies any recent sickness or viral illness. She denies any visual changes. She denies any episodes of incontinence. She states she believes these episodes all started after initiation of Emgality on 09/11. Past Medical & Surgical History: Past Medical History: Diagnosis Date ??? Abnormal cervical Papanicolaou smear 09/09/2018 ??? Diverticulosis of colon 09/09/2018 ??? Dysplasia of cervix 07/17/2006 ??? Dysuria 07/17/2006 episodes of dysuria and frequency but all negative cultures. If sx develop check Micro, MACHINE HELPER or stone. ??? Environmental and seasonal allergies [...] at [facility] ??? PRO STRABISMUS SURG,PLACE ADJUST SUTURE Right 12/31/2013 STRABISMUS SURGERY, PLACEMENT OF ADJUSTABLE SUTURES IN CONJUNCTION W/ ANOTHER SURGERY performed by Genevieve Walsh MD at [facility] ??? PRO STRABISMUS SURG,SCAR EXTRAOCUL MUSC Right 02/01/2014 STRABISMUS SURGERY WITH SCARRING OF EXTRAOCULAR MUSCLES IN CONJUNCTION W/ ANOTHER SURGERY performedby Genevieve Walsh MD at [facility] ??? SINUS SURGERY ??? TUBAL LIGATION Bilateral 04/24/2011 [facility]; Sherrell Schmidt MD ??? WISDOM TOOTH EXTRACTION N/A 07/01/2002 [facility]; AILEEN RIVERA, LAUREN Home Medications: No current facility-administered medications on file prior to encounter. Current Outpatient Medications on File Prior to Encounter Medication Sig Dispense Refill ??? acetaminophen (Tylenol) 500 mg Tablet Take 1,000 mg by mouth every 6 hours as needed for Pain. ??? fexofenadine/pseudoephedrine (JES-D 24 HOUR ORAL) Take 1 tablet by mouth as needed. ? ? dexamethasone (Decadron) 4 mg Tablet [...] daily (with meals). 90 tablet 12 ??? LORazepam (Ativan) 1 mg Tablet Take 1 tablet by mouth every 6 hours as needed for Anxiety. 15 tablet 0 ??? citalopram (CeleXA) 40 mg Tablet Take 1 tablet by mouth once daily 90 tablet 3 ??? lisinopriL (Prinivil;Zestril) 20 mg Tablet Take 1 tablet by mouth daily. 90 tablet 3 ??? ELDERBERRY FRUIT ORAL Take 1 gummy by mouth as needed (Cold season only). Hospital Medications: Scheduled Meds: Continuous Infusions: PRN Meds:. Allergies: Allergies Allergen Reactions ??? Oxycodone-Acetaminophen Shortness Of Breath ??? Red Dye Other (See Comments) Stops heart Family history: Family History Problem Relation Age of Onset [...] Neg Hx ??? Cancer Neg Hx Social history: Smoking: occasional cigarette 1 every couple of weeks. Use to smoke 1/2 ppd for 10 years priuor to having children, decreased smoking 10 years ago. 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 Review of systems: Constitutional: No fevers or chills Eyes: No vision changes, no diplopia, no blurry vision ENT: No rhinorrhea or pharyngitis, no meningismus CV: No chest pain or palpitations Resp: No cough, no shortness of breath GI: No nausea, vomiting, diarrhea or constipation : No dysuria, no incontinence Heme: No bleeding or bruising Endo: No polyuria or cold intolerance Neuro: See HPI Psych: No depression, normal sleep [x] Review of systems otherwise negative Physical Exam: Vitals: Temp: [37.2 ??C (99 ??F)-37.4 ??C (99.3 ??F)] Heart Rate: [67-76] Resp: [13-23] BP: (118-133)/(64-90) SpO2: [94 %-99 %] Heart Rate from SpO2: [67 bpm-81 bpm] Gen: Patient of apparent stated age, obeses, awake, alert, NAD, covered in multiple blankets, i'm cold Abd: +normoactive bowel sounds, soft, nontender, nondistended; no heptamegaly Ext: No edema. No bony deformity Neuro Exam: MS: AAOx2 (aware of place and time, not aware of own name or situation), hypophonia and puberphoniawhen speaking, minimal speech will answer with 1-2 words, no dysarthria, follows commands CN: PERRL, EOMI, visual ling full Facial sensation intact, no facial asymmetry Hearing intact to finger rub Palate elevates symmetrically, tongue protrudes midline SCM and trap strength intact Motor: Normal bulk and tone. UE: 5/5 R, 5/5 L Arm abduction at shoulder 5/5 R, 5/5 L Elbow extension 5/5 R, 5/5 L Elbow flexion 5/5 R, 5/5 L Medical Physics Teacher 5/5 R, 5/5 L Thumb abduction (APB) 5/5 R, 5/5 L Finger abduction LE: 5/5 R, 5/5 L Hip flexion 5/5 R, 5/5 L Knee extension 5/5 R, 5/5 L Knee flexion 5/5 R, 5/5 L Foot dorsiflexion 5/5 R, 5/5 L Foot plantar flexion Sensation: Intact to light touch throughout Reflexes: DTRs 2+ R, 2+ L Biceps 2+ R, 2+ L Brachioradialis 2+ R, 2+ L Triceps 2+ R, 2+ L Patellar 2+ R, 2+ L Achilles tendon Toes - R down, L down Coordination: Finger to nose intact, no dysmetria Rapid alternating movements & finger tapping smooth and symmetric Heel-salazar intact No tremor Gait: not assessed The Elements of the Antibody Prevalence in Epilepsy and Encephalopathy score (APE2) New onset, rapidly progressive mental status changes or seizures over 1-6 weeks within 1 year of evaluation 1 point New onset autonomic dysfunction, such as labile blood pressure, hyperhidrosis, asystole, ventricular tachycardia, sustained bradycardia, orthostatic hypotension 1 point Neuropsychiatric symptoms, such as agitation, aggression, psychosis, or emotional lability 1 point History of underlying malignancy within 5 years before onset of neurological symptoms (excluding cutaneous squamous cell carcinoma and basal cell carcinoma) 2 points Viral prodromal illness in the absence of a cancer history within the past 5 years 2 points Facial brachial dystonic seizures 3 points Facial dyskinesia in the absence of facial brachial dystonic seizures 2 points Seizures refractory to 2 or more antiepileptic drugs 2 points Cerebral spinal fluid inflammation manifest as protein > 50 mg/dL or a WBC > 5 cells/mcL 2 points MRI findings of limbic encephalitis, including T2/flair signal hyperintensity in 1 or both temporallobes, or multifocal chaves/white matter lesions consistent with inflammation or demyelination 2 points Total 2 *Possible autoimmune encephalitis APE2 score >4 *Probable autoimmune encephalopathy APE2 score >4 and successful immunotherapy trial or APE2 score >7 Labs: Recent Results (from the past 24 hour(s)) Hemogram Result Value Ref Range WBC 9.2 4.0 - 9.5 x10(3)/mcL RBC 4.45 4.00 - 5.21 x10(6)/mcL Hemoglobin 13.1 11.7 - 15.5 gm/dL Hematocrit 40.4 35.7 - 45.8 % MCV 90.8 82.6 - 94.4 fL MCH 29.4 27.1 - 32.0 pg MCHC 32.4 31.7 - 35.0 gm/dL Platelets 316 145 - 357 x10(3)/mcL RDWSD 42.0 37.0 - 46.0 fL RDWCV 12.7 11.5 - 14.1 % MPV 10.2 7.6 - 12.9 fL nRBC % Auto 0.0 % nRBC Abs Auto 0.000 0.000 - 0.000 x10(3)/mcL Differential, Automated Result Value Ref Range Neutrophils % 63.7 % Neutr Abs (ANC) 5.85 1.70 - 6.10 x10(3)/mcL Lymphocytes % 26.9 % Lymphocytes Abs 2.5 0.9 - 3.2 x10(3)/mcL Monocytes % 7.5 % Monocyte Abs 0.7 0.3 - 0.9 x10(3)/mcL Eosinophils % 1.2 % Eosinophils Abs 0.1 0.0 - 0.4 x10(3)/mcL Basophils % 0.2 % Basophils Abs 0.0 0.0 - 0.1 x10(3)/mcL Immature Gran % 0.50 % Roberta Gran Abs 0.05 (H) 0.00 - 0.04 x10(3)/mcL Blue Tube HOLD Result Value Ref Range Blue Hold Sample in lab. Gold Tube HOLD Result Value Ref Range Gold Hold Sample in lab. Chaves Tube Hold Result Value Ref Range Chaves Hold Sample in lab. Diagnostic Tests and Imaging: CT Head and C-Spine: 10/17/19 No acute intracranial hemorrhage or mass effect. No acute cervical spine fractures. EEG Routine (10/10/2019): INTERPRETATION: This EEG is [...] to increase the sensitivity of detecting abnormalities. MRI Brain wwo and MRA head 09/29/19: MRI brain: There is a developmental venous [...] The marrow signal is within normal limits. ? MRA head: No aneurysm, vascular malformation, significant arterial stenosis, cut off, or other significant arterial abnormality. CT head Assessment / Recommendations: Kimberli Bales is a 33 y.o. right handed female with a PMH of complicated migraine, PNES, ELMA, HTN, and obesity who is presenting to the ED with episodes of AMS. Kimberli has been extensively worked up for her current presentation with all tests including MRI,EEG, and LP being unremarkable. Her presentation of AMS with self but not to date or time as well as the ability to follow commands is inconsistent with a true encephalitis and is more likely a psychiatric disorder. Her APE2 score is a 2 meaning there is little suspicion for an underlying autoimmune process. Owever, this scale tends to be more bias towards those autoimmune/paroneoplastic syndromes presenting with epilepsy. It is well known that NMDA encephalitis can present with psychiatric symptoms and in a young female is often associated with an ovarian teratoma tumor. It would then be usef ul to get a pelvic U/S to look for any suspicious ovarian masses. I spoke to [facility] who unfortunately does not have any reserved CSF to run additional studies on. An LP would most liekly need ot be performed underflouroscopy guidance in order to obtain CSF for paraneoplastic studies. This test is invasive and requires radiation for a diagnosis that is not likely. I have sent off a serum paraneoplastic panel which is less sensitive than the CSF studies but still julien help provide an answer. I do believe that she should see psychiatry for formal evaluation and possible medication if appropriate. She may require admission, ideally under the psychiatric service, if she is unsafe to go home. - f/u EEG (appears unremarkable on my review) - serum paraneoplastic (lab ordered) - consider psychiatry consult Kiah Ochoa MD Neurology, PGY3 General Neurology Consult [id number] Neurology Attending I saw and evaluated the patient with the neurology team. I have reviewed the resident's history during the visit and I agree with the details as written. My physical examination confirms the resident's findings. The assessment and plan were formulated in discussion with me at the time of the visit and I agree with them as documented. Major issues addressed and plan: History: We were asked to see the patient with concern for seizures and thought disorder. There is a complexhistory of headaches, a variety of spells that appear to be nonepileptic in character based on thatcapture during video EEG recording and no electrographic abnormality being seen. She is now quite disoriented Exam: Does not know her own name, and is not oriented to place or time. Previously she did not know her own name, but was oriented to place and time. No other focal findings. More detailed exam given aboveand confirmed by me personally Data: Has had unremarkable MRIs, several EEGs, and lumbar punctures. Impression and plan: Patient presenting with symptoms and signs of conversion disorder, along with elements of psychoticthinking. This is clearly a psychiatric condition, and needs to be addressed by psychiatry. There is no evidence at present of neurological disease. However the possibility of a paraneoplastic autoimmune psychosis cannot be fully excluded. It is reasonable to obtain an abdominal ultrasound to rule out ovarian teratoma, and I would do a serum paraneoplastic antibody panel. I would not do another lumbar puncture for CSF paraneoplastic antibody panel, because my index of suspicion is very low. In the meantime I think she should be treated with cognitive behavioral therapy, an antipsychotic and an antidepressant. 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 instructor stregnth, when asked if has pain she shakes head no, but asks her if sh has a headache she states yes documented in this encounter Plan of Treatment Scheduled Referrals Name Type Priority Associated Diagnoses Orde r Schedule Referral to Psychiatry Outpatient Referral Routine Anxiety Altered mental status, unspecified altered mental status type Ordered: 10/27/2019 documented as of this encounter Goals Goal [...] Name Priority Date/Time Associated Diagnosis Comments HC C-REACTIVE PROTEIN Routine 10/29/2019 10:37 AM EDT HC PCH GANGLIOSIDE AB Routine 10/29/2019 10:37 AM EDT HC ESR-SEDIMENTATION RATE, BLOOD Routine 10/29/2019 10:37 AM EDT HC ANTINUCLEAR ANTIBODY,SERUM Routine 10/29/2019 10:37 AM EDT HC THYROID STIMULATING HORMONE, SERUM Routine 10/29/2019 10:37 AM EDT HC FREE THYROXINE (T4) Routine 0 10:37 AM EDT HC PCH VITAMIN B6 Routine 10/29/2019 10: 37 AM EDT HC SERUM PROT. ELECTROPHORESIS Routine 10/29/2019 10:37 AM EDT HC HEMOGLOBIN A1C Routine 10/29/2019 10: 37 AM EDT HC VENIPUNCTURE Routine 10/29/2019 10:37 AM EDT HC PARTIAL THROMBOPLASTIN TIME Routine 10/28/2019 9:52 AM EDT HC PROTHROMBIN TIME Routine 10/28/2019 9 :52 AM EDT HC VENIPUNCTURE Routine 10/28/2019 9:52 AM EDT RAPID DRUG SCREEN, URINE STAT 10/28/2019 4:06 AM EDT RAPID DRUG SCREEN W/O CONFIRMATION, URINE STAT 10/28/2019 4:06 AM EDT URINALYSIS WITH REFLEX CULTURE STAT 10/28/2019 4:05 AM EDT RAPID COVID-19 PCR (MH/APD/NLH) STAT 10/27/2019 9:47 PM EDT US TRANSVAGINAL NON OB STAT 0 4:57 PM EDT HC PCH PARANEOPLASTIC AUTOAB EVAL-AB SCREEN Routine 10/27/2019 3:50 PM EDT ZEEG AWAKE, ASLEEP, DROWSY STAT 10/27/2019 3:33 PM EDT CHAVES TUBE HOLD STAT 10/27/2019 12:28 PM EDT HEMOGRAM STAT 10/27/2019 12:28 PM EDT DIFFERENTIAL, AUTOMATED STAT 10/27/19 20 12:28 PM EDT GOLD TUBE HOLD STAT 10/27/2019 12:28 PM EDT BLUE TUBE HOLD STAT 10/27/2019 12:28 PM EDT HC CBC,PLT & AUTO DIFF STAT 0 12:28 PM EDT HC ACETAMINOPHEN, SERUM STAT 10/27/19 20 12:28 PM EDT HC SALICYLATES, SERUM STAT 10/27/2019 12:28 PM EDT BASIC METABOLIC PANEL STAT 10/27/2019 12:28 PM EDT documented in this encounter Results * WILLIAM ([facility]) (10/29/2019 10:37 AM EDT) WILLIAM Neg [facility] LABORATORY Comment:Anti-nuclear antibod ies were tested using an indirect immunofluorescent assay. Blood specimen (specimen) 10/29/2019 10:37 AM EDT 10/29/2019 1:39 PM EDT Narrative Resulting Agency Comment Spec In Lab Timur Coleman MD LAB SEND OUT ORDERAB LES Performing Organization Address City/[facility]/ZIP Co de Phone Number [facility] [place] [address] * Ganglioside Antibodies (10/29/2019 10:37 AM EDT) Ganglioside Antibodies See Scan Report [facility] Comment:Test performed by [facility], [address] [place] [id number] Blood specimen (specimen) 10/29/2019 10:37 AM EDT 10/29/2019 2:44 PM EDT Narrative Resulting Agency Comment Spec In Lab Timur Coleman MD LAB SEND OUT ORDERAB LES Performing Organization Address [facility]/ZIP Co de Phone Number [facility] [place] [address] * (ABNORMAL) Vitamin B6 (10/29/2019 10:37 AM EDT) Vitamin B6 (JUNE) 4(L) 5 - 50 mcg/L [facility] Comment: ADDITIONAL INFORMATION This test was developed and its performance characteristics determined by [facility] in a manner consistent with CLIA requirements. This test has not been cleared or approved by the U.S. Food and Drug Administration. Test Performed by: [facility] - [address] [address] [place]: Alonzo Jain M.D. Ph.D.; CLIA# [id number] Blood specimen (specimen) 10/29/2019 10:37 AM EDT 10/29/2019 3:39 PM EDT Narrative Resulting Agency Comment Spec In Lab Authorizing Provider Result Derian Coleman MD LAB SEND OUT ORDERAB LES Performing Organization Address [facility] Co de Phone Number [facility] [place] [address] * (ABNORMAL) CRP, acute inflammation (10/29/2019 10:37 AM EDT) Pathologist [facility] C-Reactive Protein 13.6(H) <=4.9 mg/L [facility] Blood specimen (specimen) 10/29/2019 10:37 AM EDT 10/29/2019 10:47 AM EDT Narrative Resulting Agency Comment Spec In Lab Timur Coleman MD CHEMISTRY ORDERABLES Performing Organization Address [facility] de Phone Number [facility] [place] [address] * Sedimentation rate (10/29/2019 10:37 AM EDT) [facility] Sedimentation Rate Automated 33 2 - 37 mm/hr [facility] Comment: Effective January 28, 2019 new capillary photometric technology has resulted in a change in reference ranges. It is recommended that each ESR result be reviewed with its own age appropriate reference range. Blood specimen (specimen) 10/29/2019 10:37 AM EDT 10/29/2019 10:47 AM EDT Narrative Resulting Agency Comment Spec In Lab Authorizing Provider Result Derian Coleman MD HEMATOLOGY ORDERABLE S Performing Organization Address [facility] Co de Phone Number [facility] [place] [address] * Protein Electrophoresis, serum (10/29/2019 10:37 AM EDT) Pathologist [facility] Total Prot Electrophoresis 6.1 6.1 - 8.0 gm/dL [facility] Albumin Electrophoresis 3.84 3.60 - 6.00 gm/dL [facility] Alpha 1 Globulin 0.15 0.10 - 0.30 gm/dL [facility] Alpha 2 Globulin 0.71 0.40 - 0.90 gm/dL [facility] Beta Globulin 0.79 0.50 - 1.00 gm/dL [facility] Gamma Globulin 0.60 0.50 - 1.30 gm/dL [facility] M1 Band None Detected None Detected [facility] Blood specimen (specimen) 10/29/2019 10:37 AM EDT 10/29/2019 10:47 AM EDT Narrative Resulting Agency Comment Spec In Lab Timur Coleman MD CHEMISTRY ORDERABLES Performing Organization Address City/[facility]/ZIP Co de Phone Number [facility] [place] [address] * T4, free (10/29/2019 10:37 AM EDT) Free T4 1.28 0.93 - 1.70 ng/dL [facility] Blood specimen (specimen) 10/29/2019 10:37 AM EDT 10/29/2019 10:47 AM EDT Narrative Resulting Agency Comment Spec In Lab Timur Coleman MD CHEMISTRY ORDERABLES Performing Organization Address [facility]/ZIP Co de Phone Number [facility] [place] [address] * TSH (10/29/2019 10:37 AM EDT) Thyroid Stimulating Hormone 2.95 0.27 - 4.20 mcIU/mL [facility] Blood specimen (specimen) 10/29/2019 10:37 AM EDT 10/29/2019 10:47 AM EDT Narrative Resulting Agency Comment Spec In Lab Timur Coleman MD CHEMISTRY ORDERABLES Performing Organization Address City/[facility]/ZIP Co de Phone Number [facility] [place] [address] * Hemoglobin A1c (10/29/2019 10:37 AM EDT) Hemoglobin A1c 5.6 4.3 - 5.6 % [facility] Comment: Reference Range: 4.3 - 5.6% 5.7 - 6.4% - Increased Risk of Developing Diabetes Mellitus >= 6.5% - Consistent with diagnosis of Diabetes Mellitus In the absence of hyperglycemia (i.e. plasma glucose > 200 mg/dL) or classic symptoms of hyperglycemia a repeat measurement of HbA1c should be performed on a separate sample to confirm the diagnosis. Diagnosis and Classification of Diabetes Mellitus, Diabetes Care 2013; 36: Suppl. 1, S67-74 Estimated Average Glucose 115 mg/dL [facility] Comment: eAG equivalents for HbA1c percentages: HbA1c(%) ?eAG(mg/dL) 6.0 ?126 6.5 ?140 7.0 ?154 7.5 ?169 8.0 ?183 8.5 ?197 9.0 ?212 9.5 ?226 10.0 ? 240 Limitations: The eAG calculation has not been validated on women, individuals below 18 years old and above 70 years old, and individuals with hemoglobinopathies. Additional resources are available on the ADA website. Adrian LACY, Richard J, Tiffanie R, et al. ??Translating the A1C assay into estimated average glucose values. ??Diabetes Care 2008:31(8):9318-9180. Blood specimen (specimen) 10/29/2019 10:37 AM EDT 10/29/2019 10:47 AM EDT Narrative Resulting Agency Comment Spec In Lab Timur Coleman MD CHEMISTRY ORDERABLES Performing Organization Address [facility] Co de Phone Number [facility] [place] [address] * Vitamin B12 (10/29/2019 10:37 AM EDT) Vitamin B12 733 232 - 1,245 pg/mL [facility] Blood specimen (specimen) 10/29/2019 10:37 AM EDT 10/29/2019 10:47 AM EDT Narrative Resulting Agency Comment Spec In Lab Timur Coleman MD CHEMISTRY ORDERABLES Performing Organization Address [facility] Co de Phone Number [facility] [place] [address] * APTT (10/28/2019 9:52 AM EDT) Partial Thromboplastin Time 35 25 - 37 sec [facility] Comment: The PTT is NOT appropriate for heparin monitoring. Use the Anti-Xa level for heparin monitoring (HEP UFH) or LMWH monitoring (HEP LMW). A PTT less than 37 seconds generally indicates adequate hemostasis. Blood specimen (specimen) 10/28/2019 9:52 AM EDT 10/28/2019 10:00 AM EDT Narrative Resulting Agency Comment Spec In Lab Roger Ramos MD HEMATOLOGY ORDERABLE S Performing Organization Address [facility] Co de Phone Number [facility] [place] [address] * Prothrombin Time (10/28/2019 9:52 AM EDT) Prothrombin Time 12.4 9.4 - 12.5 sec [facility] International Normalization Ratio 1.1 [facility] Comment: An INR <2.0 indicates adequate procoagulant activity for hemostasis in most patients without underlying bleeding disorders, though the INR may not adequately reflect hemostatic capacity in patients with liver disease and synthetic impairment. The recommended target INR range for therapeutic anticoagulation is 2.0 ? 3.0 for most applications, though lower and higher ranges may be appropriate depending on clinical circumstances. Blood specimen (specimen) 10/28/2019 9:52 AM EDT 10/28/2019 10:00 AM EDT Narrative Resulting Agency Comment Spec In Lab Roger Ramos MD HEMATOLOGY ORDERABLE S [facility] [place] [address] * Beta HCG, quantitative (10/28/2019 9:52 AM EDT) Beta Human Chorionic Gonadotropin, Quantitative <1 mlU/ML [facility] Comment: REFERENCE RANGES NON- FEMALE: ??Less [...] - 56,451 ?17 weeks ? 8,175 - 55,868 ?18 weeks ? 8,099 - 58,176 Blood specimen (specimen) 10/28/2019 9:52 AM EDT 10/28/2019 10:00 AM EDT Narrative Resulting Agency Comment Spec In Lab Roger Ramos MD CHEMISTRY ORDERABLES [facility] [place] [address] * (ABNORMAL) Rapid Drug Screen w/o Confirmation, Urine (10/28/2019 4:06 AM EDT) Barbiturates Screen, Urine None Detected None Detected [facility] Comment: The barbiturate screen detects barbiturates [...] Benzodiazepines Screen, Urine None Detected None Detected [facility] Comment: The benzodiazepines screen detects benzodiazepines [...] Cocaine Screen, Urine None Detected None Detected [facility] Comment: The cocaine metabolites screen detects benzoylecgonine (Cocaine Metabolite) at concentrations >150 ng/mL. A ? Presumptive Positive? result indicates that the screening result was positive but has not yet been confirmed by a highly-specific method. As with any screen, occasional false positive results from cross-reacting substances may occur. Not for Medico-Legal Purposes. Methadone Metabolites Screen, Urine None Detected None Detected [facility] Comment: The methadone metabolite screen detects EDDP (major methadone metabolite) at concentrations >100 ng/mL. A ? Presumptive Positive? result indicates that the screening result was positive but has not yet been confirmed by a highly-specific method. As with any screen, occasional false positive results from cross-reacting substances may occur. Not for Medico-Legal Purposes. Opiate Screen, Urine None Detected None Detected [facility] Comment: The opiates screen detects opiates [...] Cannabinoid Screen, Urine Presumptive Pos(A) None Detected [facility] Comment: The marijuana metabolites screen detects the THC metabolite (79-xkv-7-carboxy-delta 9-THC) at concentrations >20 ng/mL. A ? Presumptive Positive? result indicates that the screening result was positive but has not yet been confirmed by a highly-specific method. As with any screen, occasional false positive results from cross-reacting substances may occur. Not for Medico-Legal Purposes. Oxycodone Screen, Urine None Detected None Detected [facility] Comment: The oxycodone screen detects oxycodone and oxymorphone at concentrations >100 ng/mL. A ? Presumptive Positive? result indicates that the screening result was positive but has not yet been confirmed by a highly-specific method. As with any screen, occasional false positive results from cross-reacting substances may occur. Not for Medico-Legal Purposes. Buprenorphine Screen, Urine None Detected None Detected [facility] Comment: The buprenorphine screen detects buprenorphine at concentrations >5 ng/mL. A ? Presumptive Positive? result indicates that the screening result was positive but has not yet been confirmed by a highly-specific method. As with any screen, occasional false positive results from cross-reacting substances may occur. Not for Medico-Legal Purposes. Fentanyl Screen, Urine None Detected None Detected [facility] Comment: The fentanyl screen detects fentanyl at concentrations >2 ng/mL. A ? Presumptive Positive? result indicates that the screening result was positive but has not yet been confirmed by a highly-specific method. As with any screen, occasional false positive results from cross-reacting substances may occur. Not for Medico-Legal Purposes. Tricyclics Screen, Urine Presumptive Pos(A) None Detected [facility] Comment: The tricyclics screen detects tricyclic [...] Ethanol Screen, Urine None Detected None Detected [facility] Comment:This urine ethanol a ssay detects ethanol at concentrations >/= 100 mg/L. Amphetamines Screen, Urine None Detected None Detected [facility] Comment: The amphetamine screen detects d-amphetamine and d-methamphetamine at concentrations >300 ng/mL. A ? Presumptive Positive? result indicates that the screening result was positive but has not yet been confirmed by a highly-specific method. As with any screen, occasional false positive results from cross-reacting substances may occur. Not for Medico-Legal Purposes. Adulterants Screen, Urine None Detected None Detected [facility] Comment: No adulteration or dilution of this urine sample was detected. All urine samples submitted for urine drugs of abuse analysis are tested for creatinine concentration, pH, and for the presence of oxidants, nitrites, and chromate. Urine specimen (specimen) 10/28/2019 4:06 AM EDT 10/28/2019 8:11 AM EDT Narrative Resulting Agency Comment Spec In Lab Roosevelt Joseph MD CHEMISTRY ORDERAB LES Performing Organization Address [facility]/ZIP Co de Phone Number [facility] [place] [address] * Rapid Drug Screen, Urine (JENNIFER Request) (10/28/2019 4:06 AM EDT) JENNIFER Conf Requested No [facility] JENNIFER Requested See Comment [facility] Comment:Refer to Rapid Drug Screen w/o Confirmation, Urine for results. Urine specimen (specimen) 10/28/2019 4:06 AM EDT 10/28/2019 8:11 AM EDT Narrative Resulting Agency Comment Spec In Lab Afsaneh Huerta MD URINE ORDERABLES Performing Organization Address [facility]/ZIP Co de Phone Number [facility] [place] [address] * (ABNORMAL) Urinalysis with reflex Culture (10/28/2019 4:05 AM EDT) Glucose, Urine Dipstick Negative Negative mg/dL [facility] Protein, Urine Dipstick Negative Negative mg/dL [facility] Bilirubin, Urine Dipstick Negative Negative mg/dL [facility] Comment: Clinical correlation required for positive Urine Bilirubin results as false positive may occur with some drugs and drug related products. If a false positive is suspected a serum total bilirubin should be considered if clinically indicated. Urobilinogen, Urine Dipstick 2.0(A) Normal mg/dL [facility] pH, Urn (dipstick) 6.5 5.0 - 8.0 [facility] Blood, Urine Dipstick Negative Negative mg/dL [facility] Ketone, Urine Dipstick Negative Negative mg/dL [facility] Nitrite, Urine Dipstick Negative Negative [facility] Leukocytes, Urine Dipstick Negative Negative [facility] Appearance, Urine Dipstick Cloudy(A) Clear [facility] Specific [place] Urine Automated 1.023 1.006 - 1.030 [facility] Color, Urine Dipstick Yellow Yellow [facility] Reflex to Culture No [facility] Urine specimen obtained by clean catch procedure (specimen) 10/28/2019 4:05 AM EDT 10/28/2019 4:40 AM EDT Narrative Resulting Agency Comment Spec In Lab Afsaneh Huerta MD URINE ORDERABLES [facility] [place] [address] * COVID-19 PCR (10/27/2019 9:47 PM EDT) Pathologist [facility] SARS-CoV-2 RNA (Rapid) Not Detected Not Detected [facility] Comment: This result [...] using the Simplexa COVID-19 Direct Assay by Joome as authorized by the FDA issued Emergency [...] Department of Pathology and Laboratory Medicine at [facility], certified under the Clinical Laboratory Improvement Amendments [...] Information for Healthcare Professionals (https://www.cdc.gov/coronavirus/2019-ncov/hcp/index.html). SARS-CoV-2 Source [employer] [facility] Nasopharyngeal swab (specimen) 10/27/2019 9:47 PM EDT 10/27/2019 10:17 PM EDT Comment:Symptoms->Surveillan ce Narrative Resulting Agency Comment Spec In Lab Janet Atkins MD MICROBIOLOGY - [facility] ORDERABLES [facility] [place] [address] * US Transvaginal Non OB (10/27/2019 4:57 PM EDT) Anatomical Region Laterality Modality Ultrasound 10/27/2019 4:55 PM EDT Impressions 10/27/2019 5:13 PM EDT ?? Comparison is made to prior studies dated 08/11/2015 and 08/03/2014. 1. ??Anteverted uterus is normal in contour. A 0.7 x 0.6 cm subendometrial cyst is identified on today's exam, question cystic degeneration of previously visualized 1 cm fibroid. 2. ??The endometrium is homogeneous and normal in size measuring 3.3 mm in double wall thickness. 3. ??The left ovary is visualized transabdominally and appears normal in size and morphology. The right ovary is not seen transabdominally or transvaginally however, it appears normal on prior ultrasound. No findings to suggest a dermoid. There is no free fluid in the cul-de-sac. Thank you for letting us participate in the care of this patient. For questions regarding this report, please contact the number below. 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 10/27/2019 05:13 pm Narrative 10/27/2019 5:13 PM EDT Gynecological Report ?(Signed Final 10/27/2019 05:13 pm) PATIENT INFO: ID #: ? [id number] ?: ??[birth year] (33 yrs)(F) Name: ? KIMBERLI R ?Visit Date: 10/27/2019 04:55 pm ? BALTAZAR PERFORMED BY: Performed By: ? Anay Guillermo RDMS Attending: ?Keke Pacheco MD Referred By: ?AFSANEH HUERTA Location: ? [place] SERVICE(S) PROVIDED: ??UTV - Transvaginal - [id number] ?[id number] ??[employer]PE[facility] - [employer] - [id number] ? [id number] INDICATIONS: ??unexplained psychosis, negative workup TECHNIQUE/SCAN QUALITY: Technique: ?Transducer ID#:[id number] COMPARISON: Prior US: 08/11/15 -------- HISTORY: -------- Age: ?? 33 ------- UTERUS: ------- Uterus: ? Visualized Position: ?? Anteverted Size (cm) ?L: ??6.8 ? W: ?? 4.1 ?H: ??2.5 Description: ?? There is a 0.7 x 0.6 x 0.7 cm cystic structure ?within the left lateral myometrium. ENDOMETRIUM: Endometrium: ?Normal appearance Thickness(mm): ?3.25 RIGHT OVARY: Status: ?? Not Visualized LEFT OVARY: Status: ?? Visualized Size (cm) ?L: ??2.7 ? W: ?? 2.0 ?H: ??1.9 Vol (ml): ?5.4 Morphology: ?Normal appearance Comment: ? Visualized transabdominal only. Procedure Note Keke Fraser MD - 10/27/2019 Gynecological Report (Signed Final 10/27/2019 05:13 pm) PATIENT INFO: ID #: [id number] : [birth year] (33 yrs)(F) Name: KIMBERLI Blanco Visit Date: 10/27/2019 04:55 pm BALTAZAR PERFORMED BY: Performed By: Anay Guillermo RDMS Attending: Keke Pacheco MD Referred By: AFSANEH HUERTA Location: [place] SERVICE(S) PROVIDED: UTV - Transvaginal - [id number] [employer]PELIM - [employer] - [id number] INDICATIONS: unexplained psychosis, negative workup TECHNIQUE/SCAN QUALITY: Technique: Transducer ID#:[id number] COMPARISON: Prior US: 08/11/15 -------- HISTORY: -------- Age: 33 ------- UTERUS: ------- Uterus: Visualized Position: Anteverted Size (cm) L: 6.8 W: 4.1 H: 2.5 Description: There is a 0.7 x 0.6 x 0.7 cm cystic structure within the left lateral myometrium. ENDOMETRIUM: Endometrium: Normal appearance Thickness(mm): 3.25 RIGHT OVARY: Status: Not Visualized LEFT OVARY: Status: Visualized Size (cm) L: 2.7 W: 2.0 H: 1.9 Vol (ml): 5.4 Morphology: Normal appearance Comment: Visualized transabdominal only. IMPRESSION Comparison is made to prior studies dated 08/11/2015 and 08/03/2014. 1. Anteverted uterus is normal in contour. A 0.7 x 0.6 cm subendometrial cyst is identified on today's exam, question cystic degeneration of previously visualized 1 cm fibroid. 2. The endometrium is homogeneous and normal in size measuring 3.3 mm in double wall thickness. 3. The left ovary is visualized transabdominally and appears normal in size and morphology. The right ovary is not seen transabdominally or transvaginally however, it appears normal on prior ultrasound. No findings to suggest a dermoid. There is no free fluid in the cul-de-sac. Thank you for letting us participate in the care of this patient. For questions regarding this report, please contact the number below. 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 However, a negative result does not exclude neurological autoimmunity with or without associated neoplasia. Sensitivity and specificity of antibody testing are enhanced by testing both serum and CSF. Test Performed by: [place] [address] Skein Dyer: Alonzo Jain M.D. Ph.D.; CLIA# [id number] JAVIER-1 (Anti-Neuronal Nuclear Ab, Type 1) (JUNE) Negative <1:240 titer [facility] Comment: Test Performed by: [place] [address] Skein Dyer: Alonzo Jain M.D. Ph.D.; CLIA# [id number] JAVIER-2 (Anti-Neuronal Nuclear Ab,Type 2) (JUNE) Negative <1:240 titer [facility] Comment: ADDITIONAL INFORMATION This test was developed and its performance characteristics determined by [facility] in a manner consistent with CLIA requirements. This test has not been cleared or approved by the U.S. Food and Drug Administration. Test Performed by: [place] [address] Skein Dyer: Alonzo Jain M.D. Ph.D.; CLIA# [id number] JAVIER-3 (Anti-Neuronal Nuclear Ab, Type 3) (JUNE) Negative <1:240 titer [facility] Comment: ADDITIONAL INFORMATION This test was developed and its performance characteristics determined by [facility] in a manner consistent with CLIA requirements. This test has not been cleared or approved by the U.S. Food and Drug Administration. Test Performed by: [facility] [place] [address] Skein Dyer: Alonzo Jain M.D. Ph.D.; CLIA# [id number] AGNA-1 (Anti-Glial Nuclear Ab, Type 1) (JUNE) Negative <1:240 titer [facility] Comment: ADDITIONAL INFORMATION This test was developed and its performance characteristics determined by [facility] in a manner consistent with CLIA requirements. This test has not been cleared or approved by the U.S. Food and Drug Administration. Test Performed by: [facility] [place] [address] Skein Dyer: Alonzo Jain M.D. Ph.D.; CLIA# [id number] FLIGHT CREW TIME CLERK-1 (Purkinje Cell Cytoplasmic Ab-Type 1) (JUNE) Negative <1:240 titer [facility] Comment: ADDITIONAL INFORMATION This test was developed and its performance characteristics determined by [facility] in a manner consistent with CLIA requirements. This test has not been cleared or approved by the U.S. Food and Drug Administration. Test Performed by: [facility] [place] [address] Skein Dyer: Alonzo Jain M.D. Ph.D.; CLIA# [id number] FLIGHT CREW TIME CLERK-2 (Purkinje Cell Cytoplasmic Ab-Type 2) (JUNE) Negative <1:240 titer [facility] Comment: ADDITIONAL INFORMATION This test was developed and its performance characteristics determined by [facility] in a manner consistent with CLIA requirements. This test has not been cleared or approved by the U.S. Food and Drug Administration. Test Performed by: [facility] [place] [address] Skein Dyer: Alonzo Jain M.D. Ph.D.; CLIA# [id number] FLIGHT CREW TIME CLERK-Type TR (Purkinje Cell Cytoplasmic Ab-Type Tr) (JUNE) Negative <1:240 titer [facility] Comment: ADDITIONAL INFORMATION This test was developed and its performance characteristics determined by [facility] in a manner consistent with CLIA requirements. This test has not been cleared or approved by the U.S. Food and Drug Administration. Test Performed by: [facility] [place] [address] Skein Dyer: Alonzo Jain M.D. Ph.D.; CLIA# [id number] Amphiphysin Antibody (JUNE) Negative <1:240 titer [facility] Comment: ADDITIONAL INFORMATION This test was developed and its performance characteristics determined by [facility] in a manner consistent with CLIA requirements. This test has not been cleared or approved by the U.S. Food and Drug Administration. Test Performed by: [facility] [place] [address] Skein Dyer: Alonzo Jain M.D. Ph.D.; CLIA# [id number] CRMP-5-IgG (JUNE) Negative <1:240 titer [facility] Comment: ADDITIONAL INFORMATION This test was developed and its performance characteristics determined by [facility] in a manner consistent with CLIA requirements. This test has not been cleared or approved by the U.S. Food and Drug Administration. Test Performed by: [facility] [place] [address] Skein Dyer: Alonzo Jain M.D. Ph.D.; CLIA# [id number] Striated Muscle Ab Negative <1:120 titer [facility] Comment: ADDITIONAL INFORMATION This test was developed and its performance characteristics determined by [facility] in a manner consistent with CLIA requirements. This test has not been cleared or approved by the U.S. Food and Drug Administration. Test Performed by: [facility] [place] [address] Skein Dyer: Alonzo Jain M.D. Ph.D.; CLIA# [id number] P/Q-Type Ca Channel Ab (JUNE) 0.00 <=0.02 nmol/L [facility] Comment: ADDITIONAL INFORMATION This test was developed and its performance characteristics determined by [facility] in a manner consistent with CLIA requirements. This test has not been cleared or approved by the U.S. Food and Drug Administration. Test Performed by: [facility] [place] [address] Skein Dyer: Alonzo Jain M.D. Ph.D.; CLIA# [id number] N-Type Ca Channel Ab 0.00 <=0.03 nmol/L [facility] Comment: ADDITIONAL INFORMATION This test was developed and its performance characteristics determined by [facility] in a manner consistent with CLIA requirements. This test has not been cleared or approved by the U.S. Food and Drug Administration. Test Performed by: [facility] [place] [address] Skein Dyer: Alonzo Jain M.D. Ph.D.; CLIA# [id number] AChR Gang Neuronal Ab 0.00 <=0.02 nmol/L [facility] Comment: ADDITIONAL INFORMATION This test was developed and its performance characteristics determined by [facility] in a manner consistent with CLIA requirements. This test has not been cleared or approved by the U.S. Food and Drug Administration. Test Performed by: [facility] [place] [address] Skein Dyer: Alonzo Jain M.D. Ph.D.; CLIA# [id number] Neuronal (V-G) K+ Channel Ab (JUNE) 0.00 <=0.02 nmol/L [facility] Comment: ADDITIONAL INFORMATION This test was developed and its performance characteristics determined by [facility] in a manner consistent with CLIA requirements. This test has not been cleared or approved by the U.S. Food and Drug Administration. Test Performed by: [facility] [place] [address] Skein Dyer: Alonzo Jain M.D. Ph.D.; CLIA# [id number] Blood specimen (specimen) 10/27/2019 3:50 PM EDT 10/29/2019 9:25 AM EDT Narrative Resulting Agency Comment Spec In Lab Afsaneh Huerta MD LAB SEND OUT ORDER APOLLO [facility] [place] [address] * EEG awake, asleep, drowsy, routine (10/27/2019 3:33 PM EDT) Narrative Cheko Heath MD - 10/27/2019 3:33 PM EDT Ángel Haines MD ? 10/27/2019 ??5:08 PM [facility] Department of Neurology Outpatient EEG Report Name of the Patient: ??Kimberli Bales Date of : ?1985 Date of Service: ?10/27/2019 Referring physician: ?Juan Huerta MD BRIEF HISTORY: Kimberli Bales is a 33 y.o. patient with episodes of confusion and behavioral changes. MEDICATIONS: No current facility-administered medications for this encounter. ?? Current Outpatient Medications Medication Sig Dispense Refill ? ? acetaminophen (Tylenol) 500 mg Tablet Take 1,000 mg by mouth every 6 hours as needed for Pain. ? fexofenadine/pseudoephedrine (JES-D 24 HOUR ORAL) Take 1 tablet by mouth as needed. ? dexamethasone (Decadron) 4 mg Tablet Day 1 & 2 take 2 tablet twice a day Day 3, 4, 5 & 6 take 1 tablet twice a day Day 7 & 8 1/2 tablet twice a day Day 9 & 10 1/2 tablet daily 20 tablet 0 ? ? hydrOXYzine (Atarax) 25 mg Tablet Take 1 tablet by mouth 3 times daily (with meals). 90 tablet 12 ? ? LORazepam (Ativan) 1 mg Tablet Take 1 tablet by mouth every 6 hours as needed for Anxiety. 15 tablet 0 ? ? citalopram (CeleXA) 40 mg Tablet Take 1 tablet by mouth once daily 90 tablet 3 ? ? lisinopriL (Prinivil;Zestril) 20 mg Tablet Take 1 tablet by mouth daily. 90 tablet 3 ? ? ELDERBERRY FRUIT ORAL Take 1 gummy by mouth as needed (Cold season only). ?? METHODS: A 21 channel digitized electroencephalogram was performed in the [facility]. The 10/20 international system of electrode placement was used and bipolar and referential electrode montages were recorded. ??In addition to EEG the patient was monitored for EKG and lateral/vertical eye movements. Video was recorded during the session. The duration of the recording was 60 minutes. PERSONAL BANKING ADVISOR'S REPORT: Performed by: BS Patient was sleep deprived. Sleep was attained. Photic stimulation was not performed. Hyperventilation was not performed. Effort was was not adequate. Movement and other artifact was not significant. Comments: None ELECTROENCEPHALOGRAPHER'S REPORT: Background During the awake state with the eyes closed the background consisted of a moderate amplitude, 9 Hz posterior reactive rhythm that attenuated appropriately with eye opening. Beta activity was distributed diffusely with an anterior predominance. There was a normal anterior-posterior voltage gradient. With eye opening the background activity changed to a low voltage mixture of alpha, beta, and occasional theta range frequencies. There were no significant asymmetries of background activity noted. Sleep Stage II sleep was not obtained. Hyperventilation Hyperventilation was not performed. Photic Stimulation Photic stimulation was not performed. Abnormal EEG Activity None EKG EKG was not connected. PRIOR EE10/10/2019: normal awake only EEG. INTERPRETATION: This EEG is normal during the awake and drowsy states. CLINICAL CORRELATION: Normal awake and drowsy EEG. No epileptiform discharges, events, or seizures. A normal EEG does not rule out epilepsy. If clinical suspicion remains, a longer study including sleep state will increase the sensitivity of the test. Ángel Haines MD 10/27/2019 5:05 PM Personal pager: [phone] Epilepsy Fellow CC: Amada Carson MD Afsaneh Huerta MD NEUROLOGY ORDERABL ES * Chaves Tube Hold (10/27/2019 12:28 PM EDT) Chaves Hold Sample in lab. [facility] Blood specimen (specimen) Venous Draw / Unknown 10/27/2019 12:28 PM EDT 10/27/2019 1:06 PM EDT Afsaneh Huerta MD CHEMISTRY ORDERABL ES [facility] [place] [address] * Gold Tube HOLD (10/27/2019 12:28 PM EDT) Gold Hold Sample in lab. [facility] Blood specimen (specimen) Venous Draw / Unknown 10/27/2019 12:28 PM EDT 10/27/2019 1:05 PM EDT Afsaneh Huerta MD CHEMISTRY ORDERABL ES Performing Organization Address City/[facility]/ZIP Co de Phone Number [facility] [place] [address] * Blue Tube HOLD (10/27/2019 12:28 PM EDT) Blue Hold Sample in lab. [facility] Blood specimen (specimen) Venous Draw / Unknown 10/27/2019 12:28 PM EDT 10/27/2019 1:05 PM EDT Afsaneh Huerta MD HEMATOLOGY ORDERAB LES Performing Organization Address City/[facility] Co de Phone Number [facility] [place] [address] * (ABNORMAL) Differential, Automated (10/27/2019 12:28 PM EDT) Pathologist [facility] Neutrophil % 63.7 % [facility] Neutrophil Absolute 5.85 1.70 - 6.10 x10(3)/mc L [facility] Lymph % 26.9 % [facility] Lymphocytes Abs 2.5 0.9 - 3.2 x10(3)/mc L [facility] Monocyte % 7.5 % [facility] Monocyte Abs 0.7 0.3 - 0.9 x10(3)/mc L [facility] Eos % 1.2 % [facility] Eosinophils Abs 0.1 0.0 - 0.4 x10(3)/mc L [facility] Basophil % 0.2 % [facility] Baso Absolute 0.0 0.0 - 0.1 x10(3)/mc L [facility] Immature Gran % 0.50 % [facility] Comment: Immature granulocytes(IG's)percentage and absolute count will include metamyelocytes, myelocytes, and promyelocytes. Blood smears from CBCs yielding IG's will be scanned manually for concordance. If this scan disagrees with the automated IG or if promyelocytes are noted, a manual differential will be performed. Immature Gran Absolute 0.05(H) 0.00 - 0.04 x10(3)/mc L [facility] Blood specimen (specimen) 10/27/2019 12:28 PM EDT 10/27/2019 1:05 PM EDT Narrative Resulting Agency Comment Spec In Lab Afsaneh Huerta MD HEMATOLOGY ORDERAB LES [facility] [place] [address] * Hemogram (10/27/2019 12:28 PM EDT) White Blood Cell 9.2 4.0 - 9.5 x10(3)/[facility] Red Blood Cell 4.45 4.00 - 5.21 x10(6)/[facility] Hemoglobin 13.1 11.7 - 15.5 gm/dL [facility] Hematocrit 40.4 35.7 - 45.8 % [facility] Mean Cell Volume 90.8 82.6 - 94.4 fL [facility] Mean Cell Hemoglobin 29.4 27.1 - 32.0 pg [facility] Mean Cell Hemoglobin Concentration 32.4 31.7 - 35.0 gm/dL [facility] Platelet 316 145 - 357 x10(3)/[facility] RDW Standard Deviation 42.0 37.0 - 46.0 fL [facility] RDW coefficient of variation 12.7 11.5 - 14.1 % [facility] Mean Platelet Volume 10.2 7.6 - 12.9 fL [facility] NRBC% auto 0.0 % [facility] NRBC Absolute 0.000 0.000 - 0.000 x10(3)/mcL [facility] Blood specimen (specimen) 10/27/2019 12:28 PM EDT 10/27/2019 1:05 PM EDT Narrative Resulting Agency Comment Spec In Lab Afsaneh Huerta MD HEMATOLOGY ORDERAB LES Performing Organization Address [facility] Co fl Phone Number [facility] [place] [address] * Salicylate (10/27/2019 12:28 PM EDT) Salicylate <3 mg/L [facility] Comment: Therapeutic Range: ??< 200 mg/L Arthritic Therapy: ??150-300 mg/L Toxic: ?> 350 mg/L ??Concentrations > 500 mg/L may be an indication for alkalinization of urine. Concentrations > 800 mg/L are often an indication for hemodialysis. Blood specimen (specimen) 10/27/2019 12:28 PM EDT 10/27/2019 1:05 PM EDT Narrative Resulting Agency Comment Spec In Lab Afsaneh Huerta MD CHEMISTRY ORDERABL ES Performing Organization Address [facility] de Phone Number [facility] [place] [address] * (ABNORMAL) Acetaminophen level (10/27/2019 12:28 PM EDT) Acetamin Lvl <5(L) 10 - 30 mg/L [facility] Comment: Levels >150 mg/L at 4 hours post ingestion or >75 mg/L at 8 hours post ingestion are often an indication for N-Acetylcysteine. Blood specimen (specimen) 10/27/2019 12:28 PM EDT 10/27/2019 1:05 PM EDT Narrative Resulting Agency Comment Spec In Lab Afsaneh Huerta MD CHEMISTRY ORDERABL ES [facility] [place] [address] * (ABNORMAL) Basic Metabolic Panel (non-fasting) (10/27/2019 12:28 PM EDT) Glucose 89 65 - 199 mg/dL [facility] Comment:Diabetes: >=200 mg/d L plus symptoms Blood Urea Nitrogen 7(L) 8 - 18 mg/dL [facility] Creatinine 0.62(L) 0.70 - 1.20 mg/dL [facility] Sodium 138 135 - 145 mmol/L [facility] Potassium 4.4 3.5 - 5.0 mmol/L [facility] Comment: Please note: ??Patients with WBC >100,000 may have falsely elevated Potassium levels. ??For accurate Potassium quantification in these patients send serum separator tube (gold top) for subsequent determinations. ??Contact the Clinical Chemistry Laboratory if there are any questions. Chloride 101 98 - 107 mmol/L [facility] Carbon Dioxide 26 22 - 31 mmol/L [facility] Anion Gap 11 5 - 15 mmol/L [facility] Calcium 9.4 8.5 - 10.5 mg/dL [facility] Est Glomerular Filtration Rate 117 >=60 mL/min/1. 73 m?? [facility] Comment: The eGFR was calculated using the CKD-EPI equation. As with all creatinine based estimates of kidney function, eGFR values calculated with the CKD-EPI equation are not accurate in patients with acute kidney failure, extremes of body mass or the acutely ill. [email or web address] eGFR 135 >=60 mL/min/1. 73 m?? [facility] Comment: The eGFR was calculated using the CKD-EPI equation. As with all creatinine based estimates of kidney function, eGFR values calculated with the CKD-EPI equation are not accurate in patients with acute kidney failure, extremes of body mass or the acutely ill. [email or web address] Blood specimen (specimen) 10/27/2019 12:28 PM EDT 10/27/2019 1:05 PM EDT Narrative Resulting Agency Comment Spec In Lab Afsaneh Huerta MD CHEMISTRY ORDERABL ES [facility] [place] [address] documented in this encounter Visit Diagnoses Diagnosis Altered mental status- Primary Anxiety Anxiety state, unspecified Altered mental status, unspecified altered mental status type documented in this encounter Admitting Diagnoses Diagnosis Altered mental status documented in this encounter Administered Medications Inactive Administered Medications - up to 3 most recent administrations Medication Order MAR Action Action Date Dose Rate Site chlorproMAZINE (Thorazine) tablet 25 mg 25 mg, Oral, EVERY MORNING, First dose on Sat10/29/19 at 0700, Until Discontinued, Routine Given 10/29/2019 6:55 AM EDT 25 mg chlorproMAZINE (Thorazine) tablet 25 mg 25 mg, Oral, DAILY AT NOON, First dose on Sat10/28/19 at 1300, Until Discontinued, Routine Given 10/29/2019 11:52 AM EDT 25 mg Given 10/28/2019 2:01 PM EDT 25 mg chlorproMAZINE (Thorazine) tablet 25 mg 25 mg, Oral, EVERY EVENING, First dose on Sat10/28/19 at 1700, Until Discontinued, Routine Given 10/28/2019 5:38 PM EDT 25 mg dexamethasone (Decadron) tablet 2 mg 2 mg, Oral, EVERY 12 HOURS SCHEDULED, 2 doses, First dose on Sat10/28/19 at 0000, Last dose on Sat10/28/19 at 0900, Routine Given 10/28/2019 12:14 AM EDT 2 mg enoxaparin (LOVENOX) injection 40 mg 40 mg, Subcutaneous, NIGHTLY, First dose on Sat10/28/19 at 0000, Until Discontinued, Routine Given 10/28/2019 8:27 PM EDT 40 mg Given 10/28/2019 12:14 AM EDT 40 mg lisinopriL (Prinivil;Zestril) tablet 20 mg 20 mg, Oral, DAILY, First dose on Sat10/28/19 at 0900, Until Discontinued, Routine Given 10/29/2019 8:57 AM EDT 20 mg Given 10/28/2019 9:57 AM EDT 20 mg QUEtiapine (SEROquel) tablet 25 mg 25 mg, Oral, ONCE, 1 dose, On Sat10/27/19 at 2052, STAT Given 10/27/2019 8:52 PM EDT 25 mg sodium chloride 0.9 % (flush) flush 5 mL 5 mL, Intravenous, 2 TIMES DAILY, First dose on Sat10/28/19 at 0000, Until Discontinued, Routine Given 10/29/2019 8:57 AM EDT 5 mLs Given 10/28/2019 8:28 PM EDT 5 mLs Given 10/28/2019 9:58 AM EDT 10 mLs documented in this encounter Active and Recently Administered Medications Times are shown in EDT. Scheduled Medication Order 10/27/2019 10/28/2019 10/29/2019 chlorproMAZINE (Thorazine) tablet 25 mg(Linked Group 1) 25 mg, Oral, EVERY MORNING, First dose on Sat10/29/19 at 0700, Until Discontinued, Routine 0655 (Given - Provider: Heather Yadav RN) chlorproMAZINE (Thorazine) tablet 25 mg(Linked Group 1) 25 mg, Oral, DAILY AT NOON, First dose on Sat10/28/19 at 1300, Until Discontinued, Routine 1401 (Given - Provider: Lauren Ceron RN) 1152 (Given - Provider: jR Blum RN) chlorproMAZINE (Thorazine) tablet 25 mg(Linked Group 1) 25 mg, Oral, EVERY EVENING, First dose on Sat10/28/19 at 1700, Until Discontinued, Routine 1738 (Given - Provider: Lauren Ceron, RADHA) dexamethasone (Decadron) tablet 2 mg (CANCELED) 2 mg, Oral, EVERY 12 HOURS SCHEDULED, 2 doses, First dose on Sat10/28/19 at 0000, Last dose on Sat10/28/19 at 0900, Routine 0014 (Given - Provider: Heather Yadav RN)0900 (Not Given - Provider: Lauren Ceron RN - Reason: Patient/family refused) enoxaparin (LOVENOX) injection 40 mg 40 mg, Subcutaneous, NIGHTLY, First dose on Sat10/28/19 at 0000, Until Discontinued, Routine 0014 (Given - Provider: Heather Yadav RN)2026 (Given - Provider: Heather Yadav RN) lisinopriL (Prinivil;Zestril) tablet 20 mg 20 mg, Oral, DAILY, First dose on Sat10/28/19 at 0900, Until Discontinued, Routine 956 (Given - Provider: Lauren Ceron, RADHA) 0857 (Given - Provider: Rj Blum, RADHA) QUEtiapine (SEROquel) tablet 25 mg (COMPLETED) 25 mg, Oral, ONCE, 1 dose, On Sat10/27/19 at 2052, STAT 2051 (Given - Provider: Em Last RN) sodium chloride 0.9 % (flush) flush 5 mL 5 mL, Intravenous, 2 TIMES DAILY, First dose on Sat10/28/19 at 0000, Until Discontinued, Routine 13 (Given - Provider: Heather Yadav RN)957 (Given - Provider: Lauren Ceron RN)2027 (Given - Provider: Heather Yadav RN) 0857 (Given - Provider: Rj Blum, RADHA) PRN Medication Order 10/27/2019 10/28/2019 10/29/2019 lidocaine (XYLOCAINE) 10 mg/mL (1 %) injection 3 mg 3 mg (0.3 mL), Subcutaneous, ONCE PRN, 1 dose, Starting on Sat10/27/19 at 2306, Until Sat10/29/19 at 1445, for discomfort with PIV insertion, Routine melatonin tablet 6 mg 6 mg, Oral, NIGHTLY PRN, Starting on Sat10/27/19 at 2306, Until Sat10/29/19 at 1445, Sleep, Routine sodium chloride 0.9 % (flush) flush 5-20 mL 5-20 mL, Intravenous, EVERY 1 MIN PRN, Starting on Sat10/27/19 at 2306, Until Sat10/29/19 at 1445, flush, Flush pertains to all indwelling lines. Flush per protocol found in the job aid using the link provided on this medication record., Routine Linked Groups Order Group 1: chlorproMAZINE (Thorazine) tablet 25 mgJump to med 25 mg, Oral, EVERY MORNING, First dose on Sat10/29/19 at 0700, Until Discontinued, Routine And chlorproMAZINE (Thorazine) tablet 25 mgJump to med 25 mg, Oral, DAILY AT NOON, First dose on Sat10/28/19 at 1300, Until Discontinued, Routine And chlorproMAZINE (Thorazine) tablet 25 mgJump to med 25 mg, Oral, EVERY EVENING, First dose on Sat10/28/19 at 1700, Until Discontinued, Routine documented in this encounter Care Teams Grip Assembler Relationship Specialty Start Date End Date Amada Carson MD [address] [place] [address] PCP - General Family Medicine 08/28/18 01/21/20 documented as of this encounter
--- OUTSIDE RECORDS SUMMARY | 2024-01-13 18:56 | XMS_ITS | Encounter Summary ---
Author Organization [facility] [place] [address] Care Team Providers Care Lost Charge Card Clerk Name Role Phone Amada Carson MD Primary Care Provider [phone] Reason for Referral * Psychiatric (Routine) - Duplicate Referral Specialty Diagnoses / Procedures Referred By Stacy harper Referred To Contact Psychiatry Diagnoses Spells of decreased attentiveness Ashwini Campuzano APRN [facility] [place] [address] Rocael Clifton, PhD [facility] [place] [address] Referral ID Status Reason Start Date Expiration Date Visits Requested Visits Authorized [id number] Duplicate Referral Specialty Service Requested 10/16/2019 10/15/2020 1 1 * Consultation (Urgent) - Closed Specialty Diagnoses / Procedures Referred By Stacy harper Referred To Contact Neurology Diagnoses Spells of decreased attentiveness Ashwini Campuzano APRN [facility] [place] [address] Eusebia Salguero MD [facility] [place] [address] Referral ID Status Reason Start Date Expiration Date V isits Requested Visits Authorized [id number] Closed Consult, Test & Treat 10/16/2019 10/15/2020 1 1 Encounter Details Date Type Department Care Team (Latest Contact Info) Description 10/16/2019 9:00 AM EDT Office Visit Neurology at [address] [id number] Ashwini Campuzano APRN [facility] [place] [address] Chronic migraine; Spells of decreased attentiveness Social History Tobacco [...] Sign Reading Time Taken Comments Blood Pressure 145/94 10/16/2019 8:31 AM EDT Pulse 84 10/16/2019 8:31 AM EDT Temperature - - Respiratory Rate - - Oxygen Saturation - - Inhaled Oxygen Concentration - - Weight 144.7 kg (319 lb) 10/16/2019 8:31 AM EDT Reported Height 167.6 cm (5' 6) 10/16/2019 8:31 AM EDT R eported Body Mass Index 51.49 10/16/2019 8:31 AM EDT documented in this encounter Patient Instructions * Patient Instructions* Ashwini Campuzano APRN - 10/16/2019 9:00 AM EDT Stop Indomethacin Do not take next dose of Emgality I'm going to give you a Dexamethasone taper for 10 days Stop Compazine (phrochloperazine) documented in this encounter Progress Notes * Ashwini Campuzano APRN - 10/16/2019 9:00 AM EDT Neurology Headache Clinic Follow-up Patient Name: Kimberli Bales Patient ID: Kimberli Bales is a 33 y.o. female seen at [facility] previously by Dr. Mercado, Headache Fellow. She has a history of Chronic Migraine, Hemicrania continua, strabismus s/p bilateral lateral rectus recessions and repeat right lateral rectus recession. She carried a diagnosis of IIH butshe never had a documented elevation in CSF opening pressure of >25cm of water. Last opening pressure in fact was 4cm H20. Interval History: Here for follow up hospitalization: ED 09/28/19 with transfer to [facility] for evaluation of transient Alteration of Awareness, Leg pain and r/o for DVT. Some non physiologic findings CT Head showed some enlargement of the cavernous malformation. MRA and MRI of head suggested. 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 EEG negative. Psychogenic syncope diagnosed. ED 10/11/19 Evaluated for Headache, LOC IV Medications given. Improved. Sent Home ED: 10/12/19 Returned to ED at [facility] Admitted for Headache and changes in levels of consciousness. 10/12/19 LP OP 4 10/12/19 Dr. Eusebia Salguero consulted via telephone. Did not think video EEG was indicated but perhaps an outpatient eval in Seizure Clinic. From Dr. Salguero note: From what is reported this seems to be significant nonphysiologic symptomatology so that nonepileptic seizures also have to be considered. 10/13/19 CT Head No change Loading dose of Emgality taken: September 11 Headache started 3 weeks ago. Headache started around September 18, Worsened on the . Was away camping and did not swim because limbs felt heavy. See above for sequencing of events. Discharged yesterday from [facility]. Overnight took a shower and could not get her leg out of the tub. Falling asleep and passing out. re[prts eyes rolling back in head, foaming at the mouth, reina twitchy and she will just drop. Since discharge has taken prochlorperazine every 6 hours. Prior to first ED trip Ativan only every few weeks, MJ only uses what she grows and only every few weeks. She is seen with her who offers history as well. He is concerned that the Emgality has caused her symptoms as they match it is all over the Internet. He shows me a blog with a few posts that have similar complaints to what the patient has. Medications: Current Outpatient Medications Medication Sig Dispense Refill ??? hydrOXYzine (Atarax) 25 mg Tablet Take 1 tablet by mouth 3 times daily (with meals). 90 tablet 12 ??? prochlorperazine (Compazine) 10 mg Tablet Take 1 tablet by mouth every 6 hours as needed. 15 tablet 0 ??? LORazepam (Ativan) 1 mg Tablet Take 1 tablet by mouth every 6 hours as needed for Anxiety. 15 tablet 0 ??? indomethacin (INDOCIN) 50 mg Capsule TAKE 1 CAPSULE BY MOUTH THREE TIMES DAILY WITH MEALS 90 capsule 3 ??? citalopram (CeleXA) 40 mg Tablet Take 1 tablet by mouth once daily 90 tablet 3 ??? lisinopriL (Prinivil;Zestril) 20 mg Tablet Take 1 tablet by mouth daily. 90 tablet 3 ??? ELDERBERRY FRUIT ORAL Take 1 gummy by mouth as needed (Cold season only). No current facility-administered medications for this visit. [...] [] Doxycycline [] Lidocaine patch (Lidoderm) [] [place] [] Memantine (Namenda) [] Montelukast (Singulair) [] [...] [] Acupuncture [] Acupressure [] Biofeedback [] Ice Cream Scooper [] Cognitive Behavioral Therapy [] Craniosacral therapy [...] Substances: [] Acetaminophen/Codeine (Tylenol #3) [] Acetaminophen/Hydrocodone ([place]/Vicodin) [] Acetaminophen/Oxycodone (Percocet) [] Butorphanol (Ketamine/Stadol) [] Carisoprodol (Soma) [] Fentanyl [] Hydrocodone [] Hydromorphone (Dilaudid) [x] Marijuana [] Morphine (MS Contin) [x] Oxycodone [x] Tramadol (Ultram) [] Zolpidem (Ambien) Physical Exam: Patient Vitals for the past 24 hrs: Pulse BP 10/16/19 0831 84 (!) 145/94 (!) 144.7 kg (319 lb) Constitutional: Patient of apparent stated age, Neuro: MS: The patient's mental status very throughout the visit. When initially I walked in the room she had her head on her shoulder, eyes closed, difficult to arouse. When she did arouse her speech was thick and somewhat slurred, eyes were partially closed and distant. At some point in the visit she became quite animated, more interactive and not remembering our previous conversation. She could easily drink her coffee beverage through a straw. Motor: normal bulk and tone, no tremor, able to arise from the chair unassisted with full balance Gait: normal base and arm swing Labs: No results found for this or any previous visit (from the past 24 hour(s)). TSH 11/15/2803/07 Vit D Vit B12 Diagnostic Tests and Imaging: LP 05/19/12 OP 23 LP 08/2012 OP 17 LP 11/16/17 OP 4 MRI/MRA/MRV 11/15/17 FINDINGS: Brain MRI noncontrast: No restricted diffusion to suggest an acute infarct. There is a focus of high signal intensity on FLAIR and T2 sequence in the left grimes radiata on image 14 of series 14 and series 13 with an apparent linear low signal intensity suggesting a vessel extending to the sulcus. Well seen on the 3-D [id number] images without evidence of flow related signal. There is focal low signal intensity adjacent to the high signal intensity on the diffusion and ADC map in this location suggesting a chemical shift which may be related to hemoglobin degradation products. ?? No other brain parenchymal signal abnormalities identified. There is no mass, mass effect, midline shift or extra-axial fluid collection. No ventriculomegaly. No cortical infarctions. Midline structures and central flow voids are otherwise unremarkable. Skull base soft tissues and orbits are normal. There is normal appearance of the optic nerve sheaths. ?? MRA: Normal appearance of the intracranial portion of the vertebral basilar system with dominant left vertebral artery and normal appearance of the posterior circulation vessels. Patent right sided posterior communicating artery. ?? Patent appearance of the intracranial portion of the internal carotid arteries and anterior circulation branches. No focal stenosis caliber change or aneurysm. No flow related signal in the area of signal abnormality in the left grimes radiata and left anterior sylvian sulcus. ?? MRV: Normal appearance of the deep and superficial venous drainage. No evidence of filling defect or stenosis. ? IMPRESSION MRA head: Negative exam ?? MRV: Negative exam ?? MRI BRAIN: Focal signal abnormality in the left grimes radiata anteriorly with adjacent somewhat linear signal seen within the left anterior sylvian sulcus. Question small focal hemorrhage or vascular malformation. No flow related signal identified. Enhanced examination and susceptibility sequence may be helpful.. ?? CTH 11/15/17 FINDINGS: There is no acute intracranial hemorrhage. The buchanan-white differentiation is preserved. There is no mass effect, midline shift or extra-axial fluid collection. The ventricles are normal in size. The visualized paranasal sinuses and mastoid air cells are clear. The visualized orbits are unremarkable in appearance. Partially calcified subcutaneous lesion measuring 7mm in the right parietal region may reflect an epidermal or related inclusion cyst. ?? IMPRESSION No acute intracranial process. Assessment and Plan: Chronic Migraine: I am concerned regarding the sedating medications that were given at the hospitaland have asked her not to use the Compazine. I am also going to stop the indomethacin just week in case she is having difficulties with that as well though blood work is normal I would like to rule out any offending medications. For pain control I am going to give her a dexamethasone taper. As far as the Emgality I have a low level of suspicion that this is a causative agent of her symptoms, regardless I going to have her not take her next dose. Spells: I will refer her urgently to the epilepsy clinic for further evaluation. We did discuss thepossibility that this is functional in nature. They both were accepting of that possibility. With that I will refer her to behavioral health as well. Because of her fragile status I am going to see her in 2 weeks time via telehealth. She will contact me in the meanwhile should other problems arise. I have spent 50 minutes face to face time with this patient. 30 minutes was spent discussing therapeutic options and teaching regarding the plan of care. REBEKAH Chang APRN [facility] Neurology, Headache Clinic documented in this encounter Plan of Treatment Scheduled Referrals Name Type Priority Associated Diagnoses Orde r Schedule Referral to Neurology Outpatient Referral Routine Spells of decreased attentiveness Ordered: 10/16/2019 Referral to Behavioral Health Outpatient Referral Routine Spells of decreased attentiveness [...] this encounter Visit Diagnoses Diagnosis Chronic migraine Chronic migraine without aura, without mention of intractable migraine without mention of status migrainosus Spells of decreased attentiveness Other general symptoms documented in this encounter Care Teams Lost Charge Card Clerk Relationship Specialty Start Date End Date Amada Carson MD [address] [place] [address] PCP - General Family Medicine 08/28/18 01/21/20 documented as of this encounter
--- OUTSIDE RECORDS SUMMARY | 2024-01-13 18:56 | XMS_ITS | Encounter Summary ---
[place] [address] Care Team Providers Care Middle School Baseball Coach Name Role Phone Amada Carson MD Primary Care Provider [phone] Reason for Visit * Reason Onset Date Comments Referral 10/19/2019 Encounter Details Date Type Department Care Team (Late st Contact Info) Description 10/19/2019 [place] [id number] Amada Carson MD [address] [place] [address] Referral Social History Tobacco Use Types Packs/Day Years [...] encounter Miscellaneous Notes * Telephone Encounter - Alice Bills E - 10/19/2019 8:04 AM EDT Caller: Farhan If not PT/Relation to PT: Patient's Best number to reach caller: [phone] Reason for the Call: To schedule from the referral LAMINE. Please contact back to discuss. To check on the status of their referral: If not, what is the reason for their call: If their referral has not been reviewed by the department, ask these questions below so the processcan get started sooner: Has the patient seen another Neurologist: yes If so, when and where: [facility] Has the patient had any imagining done: If so, when and where: documented in this encounter Plan of Treatment Not on file documented as of this encounter Goals Goal Patient Goal Type Associated Problems Recent Progress Patient-Stated? Author decrease artificial sweeteners Lifestyle No Vleia Gibson MD Note: To 2 servings per day (crystal lite or propel) tracking food intake Lifestyle No Velia Gibson MD Note: Already doing this (09/17/2019). Don't add in extra calories for calories you burn with exercise. documented as of this encounter Visit Diagnoses Not on filedocumented in this encounter Care Teams Middle School Baseball Coach Relationship Specialty Start Date End Date Amada Carson MD [address] [place] [address] PCP - General Family Medicine 08/28/18 01/21/20 documented as of this encounter
--- OUTSIDE RECORDS SUMMARY | 2024-01-13 18:56 | XMS_ITS | Encounter Summary ---
Author Organization [facility] [place] [address] Care Team Providers Care Loom Fixer Name Role Phone Amada Carson MD Primary Care Provider [phone] Encounter Details Date Type Department Care Team (Late st Contact Info) Description 10/27/2019 [place] [address] Nohemy Diallo RN Social History Tobacco Use Types Packs/Day [...] encounter Miscellaneous Notes * Telephone Encounter - Nohemy Diallo RN - 10/27/2019 9:20 AM EDT Direct call from Call center staff. Pt's calling to report that beginning Saturday, pt had a complete change of personality. Pthas been throwing things, is angry, exhausted and totally confused. says pt is not able to remember anything that happened a few minutes ago. advised to bring pt to ED for evaluation of sudden onset mood and behavior changes documented in this encounter Plan of Treatment Not on file documented as of this encounter Goals Goal Patient Goal Type Associated Problems Recent Progress Patient-Stated? Author decrease artificial sweeteners Lifestyle No Velia Gibson MD Note: To 2 servings per day (crystal lite or propel) tracking food intake Lifestyle No Velia Gibosn MD Note: Already doing this (09/17/2019). Don't add in extra calories for calories you burn with exercise. documented as of this encounter Visit Diagnoses Not on filedocumented in this encounter Care Teams Loom Fixer Relationship Specialty Start Date End Date Amada Carson MD [address] [place] [address] PCP - General Family Medicine 08/28/18 01/21/20 documented as of this encounter
--- OUTSIDE RECORDS SUMMARY | 2024-01-13 18:57 | XMS_ITS | Encounter Summary ---
Author Organization [facility] Address [facility] [place] [address] Care Team Providers Care Director Visual Name Role Phone Amada Carson MD Primary Care Provider [phone] [phone] Reason for Referral * Consultation (Routine) - Closed Specialty Diagnoses / Procedures Referred By Stacy harper Referred To Contact Sleep Center Diagnoses Morbid obesity Hemicrania continua Hypertension, unspecified type Snoring Procedures PRG POLYSOM 6+ YRS SLEEP W 4+ ADDL CATHERINE ATTND PRG HOME SLEEP TEST TYPE 3 PORTABLE Matthew Virk MD [facility] DR ALEXS[address]DRA [place] [address] [facility] Sleep Lab [address] [place] [id number] Referral ID Status Reason Start Date Expiration Date V isits Requested Visits Authorized [id number] Closed Specialty Service Requested 04/01/2019 03/31/2020 1 1 Reason for Visit * Consultation (Routine) - Closed Specialty Diagnoses / Procedures Referred By Stacy harper Referred To Contact Sleep Center Diagnoses Essential hypertension Amada Carson MD [address] [place] [address] [facility] Sleep Medicine [address] [place] [id number] Referral ID Status Reason Start Date Expiration Date V isits Requested Visits Authorized [id number] Closed Specialty Service Requested 03/30/2019 03/29/2020 1 1 Encounter Details Date Type Department Care Team (Late st Contact Info) Description 04/01/2019 9:00 AM EST Office Visit Sleep Medicine at [facility]ael [facility] [address] [place] [address] Matthew Virk MD [facility] DR ALEXSANDRA [place] [address] Morbid obesity; Hemicrania continua; Hypertension, unspecified type; Snoring Social History Tobacco Use Types Packs/Day Years Used Date Smoking Tobacco: Former Cigarettes 0.3 2 0 10/18/2015 - 10/17/2017 Smokeless Tobacco: Never Alcohol Use Standard Drinks/Week Comments Yes 0 (1 standard drink = 0.6 oz pur e alcohol) Occasional Sex and Gender Information Value Date Recorded Sex Assigned at Not on file Gender Identity Not on file Sexual Orientation Not on file documented as of this encounter Last Filed Vital Signs Vital Sign Reading Time Taken Comments Blood Pressure 140/80 04/01/2019 8:37 AM EST Pulse 93 04/01/2019 8:37 AM EST Temperature - - Respiratory Rate - - Oxygen Saturation 97% 04/01/2019 8:37 AM EST Inhaled Oxygen Concentration - - Weight 145.1 kg (319 lb 12.8 oz) 04/01/2019 8:37 AM EST Height 167.6 cm (5' 6) 04/01/2019 8:37 AM EST Body Mass Index 51.62 04/01/2019 8:37 AM EST documented in this encounter Progress Notes * Matthew Virk MD - 04/01/2019 9:00 AM EST HPI: I have been asked by Amada Carson to evaluate Kimberli Bales for advice regarding possible obstructive sleep apnea. My treatment recommendations are included at the end of this note. Kimberli Bales is a 33 y.o. female who she estimates that she usually sleeps on her side. She hasbeen told that she snores loudly and has pauses in her breathing and gasping in the night. She alsostruggles with chronic headaches and her neurologist thought that sleep disordered breathing could be a contributing factor and advised her to be evaluated for this. Sleep symptoms: Respiratory: See HPI Narcolepsy: No hypnagogic hallucinations, sleep paralysis or cataplexy Motor: She has been told that she moves around a lot when asleep. No restless leg symptoms or dreamenactment behavior Parasomnias: She has lots of vivid dreams and sometimes nightmares. No bruxism. No episodes of sleepwalking 24 hour sleep/wake schedule: Patient gets in bed at about 7 - 8 pm and usually falls to sleep within 30 minutes. In the course of the night, she estimates that she awakens 4-5 times and has variable difficulty falling back to sleep. Daytime Consequences: Patient feels tired a lot in the daytime. However she is seldom genuinely sleepy. Her [place] score is normal at 7. She maintains wakefulness adequately when driving and at her job and in public settings. Patient Active Problem List Diagnosis Code ??? Morbid obesity E66.01 ??? Dysplasia of cervix N87.9 ??? Exotropia H50.10 ??? Neurological deficit present R29.818 ??? Anxiety F41.9 ??? 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 Menorrhagia N92.0 ??? Idiopathic intracranial hypertension G93.2 Current Outpatient Medications: ??? LORazepam (Ativan) 1 mg Tablet, Take 1 tablet by mouth every 6 hours as needed for Anxiety., Disp: 15 tablet, Rfl: 1 ??? lisinopriL (Prinivil;Zestril) 20 mg Tablet, Take 1 tablet by mouth daily., Disp: 90 tablet, Rfl: 3 ??? indomethacin (INDOCIN) 50 mg Capsule, Take 1 capsule by mouth 3 times daily (with meals)., Disp: 90 capsule, Rfl: 2 ??? ELDERBERRY FRUIT ORAL, Take 1 gummy by mouth as needed (Cold season only)., Disp: , Rfl: ??? citalopram (CELEXA) 40 mg Tablet, Take 1 tablet by mouth daily., Disp: 90 tablet, Rfl: 0 Past Surgical History: Procedure Laterality Date ??? SECTION N/A 03/25/2010 ??? SECTION N/A 04/24/2011 [facility]; Sherrell Schmidt MD ??? DILATION AND CURETTAGE OF UTERUS N/A 09/16/2015 Menorrhagia; APD; Sherrell Schmidt MD ??? HERNIA REPAIR ??? PRO STABISMUS SURG,ONE HORIZ MUSCLE Bilateral 12/31/2013 STRABISMUS SURGERY, ONE HORIZONTAL MUSCLE, JEFF performed by Genevieve Walsh MD at [facility] ??? PRO STABISMUS SURG,TWO HORIZ MUSCLE Right 02/01/2014 STRABISMUS SURGERY, TWO HORIZONTAL MUSCLES performed by Genveieve Walsh MD at [facility] ??? PRO STRABISMUS SURG,PLACE ADJUST SUTURE Right 12/31/2013 STRABISMUS SURGERY, PLACEMENT OF ADJUSTABLE SUTURES IN CONJUNCTION W/ ANOTHER SURGERY performed by Genevieve Walsh MD at [facility] ??? PRO STRABISMUS SURG,SCAR EXTRAOCUL MUSC Right 02/01/2014 STRABISMUS SURGERY WITH SCARRING OF EXTRAOCULAR MUSCLES IN CONJUNCTION W/ ANOTHER SURGERY performedby Genevieve Walsh MD at [facility] ??? SINUS SURGERY ??? TUBAL LIGATION Bilateral 04/24/2011 [facility]D; Sherrell Schmidt MD ??? WISDOM TOOTH EXTRACTION N/A 07/01/2002 [facility] AILEEN RIVERA, LAUREN ROS: No acid reflux. No chronic pain inhibiting sleep. No recent febrile illness marked by cough orshortness of breath or nausea/vomiting/diarrhea. She has occasional rhinitis and uses saline nasal drops. 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 she does not smoke or use illicit drugs. No significant alcohol use. 2 cups of coffee in the morningfor caffeine PE: BP 140/80 (BP Location (NBP): Left arm, Patient Position: Sitting, BP Cuff Sizes: Large Adult (32-43 cm)) Pulse 93 Ht 167.6 cm (5' 6) Wt (!) 145.1 kg (319 lb 12.8 oz) LMP 01/18/2014 SpO2 97% BMI 51.62 kg/m?? Oropharynx noninjected. Neck supple without adenopathy or thyromegaly. Mallampati = 3. Neck circumference = 16 inches. Heart regular rate and rhythm without murmur. Lungs clear without rales rhonchi or wheezes. Extremities with no edema Data: CO2 level equals 29 in January/2019 Assessment/Plan: presents because of loud snoring and witnessed apneas and she is also morbidly obese and has hypertension. The pretest probability of obstructive sleep disordered breathingis high. If sleep disordered breathing is present, it could be a factor in the patient's complaint of frequent middle of the night awakenings and could be a factor in her chronic headaches. For this r daina, we will arrange for a formal sleep study to assess whether the patient is just a snorer versus whether she has frequent apneas and hypopneas that could disturb her quality of sleep. If sleep apnea is present, I will arrange for a trial of therapy, most likely with CPAP. We will seek insurance authorization to do a lab-based study given her morbid obesity and elevated CO2 level-- these raise suspicion for comorbid obesity hypoventilation syndrome that is better evaluated in a sleep lab. I did caution the patient not to drive if drowsy and to get off the road at such times and take a nap if necessary. This visit was 40 minutes in duration. I will forward a copy of this consult note to the referring provider, Amada Carson. documented in this encounter Plan of Treatment Scheduled Referrals Name Type Priority Associated Diagnoses Orde r Schedule Referral to Sleep Disorders Center Outpatient Referral Routine Morbid obesity Hemicrania continua Hypertension, unspecified type Snoring Ordered: 04/01/2019 documented as of this encounter Visit Diagnoses Diagnosis Morbid obesity Hemicrania continua Hypertension, unspecified type Snoring Other dyspnea and respiratory abnormality documented in this encounter Care Teams Director Visual Relationship Specialty Start Date End Date Amada Carson MD [address] [place] [address] PCP - General Family Medicine 08/28/18 01/21/20 documented as of this encounter
--- OUTSIDE RECORDS SUMMARY | 2024-01-13 18:57 | XMS_ITS | Encounter Summary ---
Author Organization [facility] [place] [address] Care Team Providers Care Sonogram Technician Name Role Phone Amada Carson MD Primary Care Provider [phone] [phone] Reason for Visit * Reason Comments Medication Refill Encounter Details Date Type Department Care Team (Late st Contact Info) Description 06/23/2019 Refill Neurology at [address] [address] Ashwini Campuzano, INDUSTRIAL ORGANIZATION MANAGER [facility] [place] [place] [address] Social History Tobacco Use Types Packs/Day Years [...] on file documented as of this encounter Visit Diagnoses Not on filedocumented in this encounter Care Teams Sonogram Technician Relationship Specialty Start Date End Date Amada Carson MD [address] [place] [place] [address] PCP - General Family Medicine 08/28/18 01/21/20 documented as of this encounter
--- OUTSIDE RECORDS SUMMARY | 2024-01-13 18:57 | XMS_ITS | Encounter Summary ---
[place] [address] Care Team Providers Care Public Speaker Name Role Phone Amada Carson MD Primary Care Provider [phone] [phone] Encounter Details Date Type Department Care Team (Late st Contact Info) Description 03/30/2019 Telephone Primary Care at [facility] [address] [place] [phone] Amada Carson MD [address] [facility] [address] Social History Tobacco Use Types Packs/Day Years [...] * Telephone Encounter - Martha Glasgow - 04/01/2019 2:36 PM EST Lm for pt of haily time * Telephone Encounter - Ruth Gastelum RN - 04/01/2019 10:54 AM EST Pt booked for 05/04/19 at 11 documented in this encounter Plan of Treatment Not on file documented as of this encounter Visit Diagnoses Not on filedocumented in this encounter Care Teams Public Speaker Relationship Specialty Start Date End Date Amada Carson MD [address] [place] [address] PCP - General Family Medicine 08/28/18 01/21/20 documented as of this encounter
--- OUTSIDE RECORDS SUMMARY | 2024-01-13 18:57 | XMS_ITS | Encounter Summary ---
Author Organization [facility] [place] [address] Care Team Providers Care Meter Reader Chief Name Role Phone Amada Carson MD Primary Care Provider [phone] [phone] Encounter Details Date Type Department Care Team (Late st Contact Info) Description 02/03/2019 Telephone Neurology at [address] [address] Ashwini Campuzano, FARM MACHINERY SET UP MECHANIC [facility] [place] [address] Social History Tobacco Use Types Packs/Day Years [...] Telephone Encounter - Mary Sewell RN - 02/03/2019 9:34 AM EST Call made to [facility]. I let her know that kidney function test were slightly abnormal. Will recheck in 1 month. Bere is in agreement with this plan. Rx for Verapamil sent to [facility] per patient request. documented in this encounter Plan of Treatment Not on file documented as of this encounter Visit Diagnoses Not on filedocumented in this encounter Care Teams Meter Reader Chief Relationship Specialty Start Date End Date Amada Carson MD [address] [place] [address] PCP - General Family Medicine 08/28/18 01/21/20 documented as of this encounter
--- OUTSIDE RECORDS SUMMARY | 2024-01-13 18:57 | XMS_ITS | Encounter Summary ---
Author Organization [facility] [place] [address] Care Team Providers Care Cushion Mat Maker Name Role Phone Amada Carson MD Primary Care Provider [phone] [phone] Reason for Visit * Reason Comments Prior Authorization EMGALITY 120MG/ML SO AJ Encounter Details Date Type Department Care Team (Late st Contact Info) Description 08/26/2019 Specialty [place] [phone] Molly Villanueva, [facility] Social History Tobacco Use Types Packs/Day Years [...] as of this encounter Progress Notes * Molly Dwyer - 08/26/2019 2:19 PM EDT [facility], Medication Prior Authorization Patient: Kimberli Bales Patient : 1985 Patient Address: [address] [place] [phone] (home) Medication Name: EMGALITY PEN 120 MG/ML SUBCUTANEOUS PEN INJECTOR Medication ID: [id number] Patient Location: [facility] 3C Patient Location Comment: Subscriber Insurance: [employer] (ADV) Subscriber Insurance Comment: /[phone] Fax: Physician: TYLER ESTRADA Physician Comment: Sent Via: [employer]: [id number] Ref/Case/PA#: Medication Strength Frequency Requested: Emgality/120mg/30 Qty/Day Supply: 03/19 New Start: Renewal Diagnosis & ICD-10 Code: G43.709 Chronic Migraine. Patient Notified: Yes Submission Notes: Pa submitted via [facility] for Maintenance Dose at the same time as Loading Dose. documented in this encounter Plan of Treatment Not on file documented as of this encounter Visit Diagnoses Not on filedocumented in this encounter Care Teams Cushion Mat Maker Relationship Specialty Start Date End Date Amada Carson MD [address] [place] [address] PCP - General Family Medicine 08/28/18 01/21/20 documented as of this encounter
--- OUTSIDE RECORDS SUMMARY | 2024-01-13 18:57 | XMS_ITS | Encounter Summary ---
Author Organization [place] [address] Care Team Providers Care Repair Mechanic Name Role Phone Amada Carson MD Primary Care Provider [phone] [phone] Reason for Visit * Reason Comments Medication Refill Encounter Details Date Type Department Care Team (Late st Contact Info) Description 02/16/2019 Refill Primary Care at [facility] [address] [place] [phone] Amada Carson MD 10 [facility] [address] Social History Tobacco Use Types Packs/Day Years [...] encounter Miscellaneous Notes * Telephone Encounter - Bertin Ellsworth William - 02/16/2019 9:31 AM EST Last Prescription Fill Date: 02/19/2018 Number Dispensed and Refills: 90/3 Last Related Office Visit: Upcoming Appointment: Visit date not found No flowsheet data found. Lab Results Component Value Date HGB 12.7 01/28/2019 HCT 40.0 01/28/2019 ALT 22 01/28/2019 AST 14 01/28/2019 NA 138 01/28/2019 K 4.7 01/28/2019 CL 100 01/28/2019 CREATININE 0.66 (L) 01/28/2019 TSH 1.81 11/15/2017 INR 1.0 11/15/2017 HA1C 5.0 (External Lab) 09/13/2015 documented in this encounter Plan of Treatment Not on file documented as of this encounter Visit Diagnoses Not on filedocumented in this encounter Care Teams Repair Mechanic Relationship Specialty Start Date End Date Amada Carson MD [address] [place] [address] PCP - General Family Medicine 08/28/18 01/21/20 documented as of this encounter
--- OUTSIDE RECORDS SUMMARY | 2024-01-13 18:57 | XMS_ITS | Encounter Summary ---
Author Organization [facility] Address [facility] [place] [address] Care Team Providers Care Fur Blender Name Role Phone Amada Carson MD Primary Care Provider [phone] [phone] Encounter Details Date Type Department Care Team (Late st Contact Info) Description 09/28/2019 [place] [phone] Joe He MD [facility] [place] [address] Social History Tobacco Use Types Packs/Day Years [...] encounter Miscellaneous Notes * Telephone Encounter - Joe He MD - 09/28/2019 5:19 PM EDT Received call from [facility] ER. Dr Vidal. Patient with IIH, headache presented to ED with alteration of LOC. Unclear semiology of event and not at baseline. Head CT with new hyperdensity in Left cerebral WM since last MRI brain in 2018 when an abnormality suspicious for a venous anomaly seen. Recommendations: MRI/A EEG and start anticonvulsant for possible seizure. Currently unable to accept to [facility] due to capacity. [facility] will load with Keppra 2 gms and start Keppra 500mg po BID. MRI at [facility] and will call with update. Joe He MD documented in this encounter Plan of [...] on filedocumented in this encounter Care Teams Fur Blender Relationship Specialty Start Date End Date Amada Carson MD [address] [place] [address] PCP - General Family Medicine 08/28/18 01/21/20 documented as of this encounter
--- OUTSIDE RECORDS SUMMARY | 2024-01-13 18:57 | XMS_ITS | Encounter Summary ---
Author Organization [facility] [place] [address] Care Team Providers Care Assembler Semiconductor Name Role Phone Amada Carson MD Primary Care Provider +1 [phone] Encounter Details Date Type Department Care Team (Latest Contact Info) Description 03/06/2019 11:15 AM EST Laboratory Appointment Lab at [facility] [address] [place] [address] High risk medication use Social History Tobacco [...] on file documented as of this encounter Procedures Procedure Name Priority Date/Time Associated Diagnosis Comments HC VENIPUNCTURE Routine 03/06/2019 11:26 AM EST High risk medication use BASIC METABOLIC PANEL Routine 03/06/2019 11:26 AM EST High risk medication use documented in this encounter Results * (ABNORMAL) Basic Metabolic Panel (non-fasting) (03/06/2019 11:26 AM EST) Glucose 95 65 - 199 mg/dL [facility] Comment:Diabetes: >=200 mg/d L plus symptoms Blood Urea Nitrogen 10 8 - 18 mg/dL [facility] Creatinine 0.67(L) 0.70 - 1.20 mg/dL [facility] Sodium 137 135 - 145 mmol/L [facility] Potassium 4.3 3.5 - 5.0 mmol/L [facility] Comment: Please note: ??Patients with WBC >100,000 may have falsely elevated Potassium levels. ??For accurate Potassium quantification in these patients send serum separator tube (gold top) for subsequent determinations. ??Contact the Clinical Chemistry Laboratory if there are any questions. Chloride 100 98 - 107 mmol/L [facility] Carbon Dioxide 27 22 - 31 mmol/L [facility] Anion Gap 10 5 - 15 mmol/L [facility] Calcium 9.9 8.5 - 10.5 mg/dL [facility] Est Glomerular Filtration Rate 114 >=60 mL/min/1. 73 m?? [facility] Comment: The eGFR was calculated using the CKD-EPI equation. As with all creatinine based estimates of kidney function, eGFR values calculated with the CKD-EPI equation are not accurate in patients with acute kidney failure, extremes of body mass or the acutely ill. http://[employer]/DHMCnkf eGFR 132 >=60 mL/min/1. 73 m?? [facility] Comment: The eGFR was calculated using the CKD-EPI equation. As with all creatinine based estimates of kidney function, eGFR values calculated with the CKD-EPI equation are not accurate in patients with acute kidney failure, extremes of body mass or the acutely ill. http://[employer]/DHMCnkf Blood specimen (specimen) 03/06/2019 11:26 AM EST 03/06/2019 12:55 PM EST Narrative Resulting Agency Comment Spec In Lab Ashwini Campuzano APRN CHEMISTRY ORDERABL ES [facility] [place] [address] * Hemoglobin and Hematocrit, blood (03/06/2019 11:26 AM EST) Hemoglobin 12.8 11.7 - 15.5 gm/dL [facility] Hematocrit 40.6 35.7 - 45.8 % [facility] Blood specimen (specimen) 03/06/2019 11:26 AM EST 03/06/2019 12:52 PM EST Narrative Resulting Agency Comment Spec In Lab Ashwini M Tatianna CORPORATE SECURITY OFFICER HEMATOLOGY ORDERAB LES [facility] [place] [address] documented in this encounter Visit Diagnoses Diagnosis High risk medication use Encounter for long-term (current) use of other medications documented in this encounter Care Teams Assembler Semiconductor Relationship Specialty Start Date End Date Amada Carson MD [address] [place] [address] PCP - General Family Medicine 08/28/18 01/21/20 documented as of this encounter
--- OUTSIDE RECORDS SUMMARY | 2024-01-13 18:57 | XMS_ITS | Encounter Summary ---
Author [place] [address] Care Team Providers Care Client Relation Specialist Name Role Phone Amada Carson MD Primary Care Provider [phone] [phone] Reason for Visit * Reason Comments Medication Refill Encounter Details Date Type Department Care Team (Late st Contact Info) Description 01/09/2019 Refill Primary Care at [facility] [address] [place] [phone] Juan Ward MD 10 [facility] [place] [address] Social History Tobacco Use Types Packs/Day Years [...] encounter Miscellaneous Notes * Telephone Encounter - Ida MorrisonSTAN - 01/09/2019 7:32 AM EST Last Prescription Fill Date: 09/08/2018 Number Dispensed and Refills: 04/03 Last Related Office Visit: 09/11/2018 Upcoming Appointment: Visit date not found No flowsheet data found. Lab Results Component Value Date HGB 12.5 11/16/2017 HCT 38.6 11/16/2017 ALT 17 12/31/2010 AST 14 12/31/2010 NA 140 11/16/2017 K 3.9 11/16/2017 CL 107 11/16/2017 CREATININE 0.75 11/16/2017 TSH 1.81 11/15/2017 INR 1.0 11/15/2017 HA1C 5.0 (External Lab) 09/13/2015 documented in this encounter Plan of Treatment Not on file documented as of this encounter Visit Diagnoses Not on filedocumented in this encounter Care Teams Client Relation Specialist Relationship Specialty Start Date End Date Amada Carson MD [address] [place] [address] PCP - General Family Medicine 08/28/18 01/21/20 documented as of this encounter
--- OUTSIDE RECORDS SUMMARY | 2024-01-13 18:57 | XMS_ITS | Encounter Summary ---
Author Organization [facility] [place] [address] Care Team Providers Care Redevelopment Specialist Name Role Phone Amada Carson MD Primary Care Provider [phone] [phone] Reason for Visit * Reason Comments Medication Refill Encounter Details Date Type Department Care Team (Late st Contact Info) Description 10/08/2019 Refill Primary Care at [facility] [address] [place] [phone] Amada Carson MD [address] [facility] [place] [address] Social History Tobacco Use Types Packs/Day Years [...] encounter Miscellaneous Notes * Telephone Encounter - Tati Caldwell CMA - 10/08/2019 2:08 PM EDT Last Prescription Fill Date: 03/30/2019 Number Dispensed and Refills: #15 / 1 Last Related Office Visit: 03/30/2019 Upcoming Appointment: 10/09/2019 No flowsheet data found. Lab Results Component Value Date HGB 12.0 09/29/2019 HCT 37.2 09/29/2019 ALT 25 09/28/2019 AST 15 09/28/2019 NA 139 09/29/2019 K 3.9 09/29/2019 CL 102 09/29/2019 CREATININE 0.60 (L) 09/29/2019 TSH 1.81 11/15/2017 INR 1.0 11/15/2017 HA1C [...] on filedocumented in this encounter Care Teams Redevelopment Specialist Relationship Specialty Start Date End Date Amada Carson MD [address] [place] [address] PCP - General Family Medicine 08/28/18 01/21/20 documented as of this encounter
--- OUTSIDE RECORDS SUMMARY | 2024-01-13 18:57 | XMS_ITS | Encounter Summary ---
[place] [address] Care Team Providers Care Hash Slinger Name Role Phone Amada Carson MD Primary Care Provider [phone] Encounter Details Date Type Department Care Team (Late st Contact Info) Description 08/17/2019 8:30 AM EDT Office Visit Neurology at [address] [phone] Ashwini Campuzano, ENERGY DIRECTOR [facility] [place] [address] Chronic migraine; Hemicrania continua Social History Tobacco Use Types Packs/Day Years [...] Reading Time Taken Comments Blood Pressure 126/72 08/17/2019 8:02 AM EDT Pulse 78 08/17/2019 8:02 AM EDT Temperature - - Respiratory Rate - - Oxygen Saturation 98% 08/17/2019 8:02 AM EDT Inhaled Oxygen Concentration - - Weight 144.7 kg (319 lb) 08/17/2019 8:02 AM EDT Height 167.6 cm (5' 6) 08/17/2019 8:02 AM EDT Body Mass Index 51.49 08/17/2019 8:02 AM EDT documented in this encounter Patient Instructions * Patient Instructions* Ashwini Campuzano APRN - 08/17/2019 8:30 AM EDT Savings card websites: [employer] [email or web address]://www.[employer].com/savings Injection videos: Emgality autoinjector: https://www.[employer].com/taking-emgality/injection-video documented in this encounter Progress Notes * Ashwini Campuzano APRN - 08/17/2019 8:30 AM EDT Neurology Headache Clinic Follow-up Patient Name: Kimberli Bales Patient ID: Kimberli Bales is a 33 y.o. female seen at [facility] Head[facility] previously by Dr. Mercado, Headache Fellow. She has a history of Chronic Migraine, Hemicrania continua, strabismus s/p bilateral lateral rectus recessions and repeat right lateral rectus recession. She carried a diagnosis of IIH butshe never had a documented elevation in CSF opening pressure of >25cm of water. Last opening pressure in fact was 4cm H20. Last Visit 03/11/19: creatinine clearance was low. Indomethacin attempted to be reduced. Verapamil increased. Interval History: Only 3 days a week where she is completely headache free. Having 4 days with moderate to severe migraines. Lisinopril started for HTN by PCP. Verapamil stopped. CPap started last week. She is Adjusting to device. Migraine Disability Assessment # of days in the past 3 months 1. Missed work / school because of MCGARRY 2 2. Productivity at work / school reduced by > half because of MCGARRY (do not count days from Q.1) 5 3. Did not do housework because of MCGARRY 5 4. Productivity in household work reduced by > half because of MCGARRY (do not count days from Q.3) 5 5. Missed family / social / leisure activities because of MCGARRY 5 Total 22 MIDAS grade (use total of Q1 to 5) I: 0-5, little to no disability II: 6-10, mild disability III: 11-20, moderate disability IV: 21+, severe disability A. # of days in the last 3 months with a MCGARRY (count each day if MCGARRY lasted > 1 day) 48 B. Average MCGARRY intensity (0-10) 7 Medications: Current Outpatient Medications Medication Sig Dispense Refill ??? indomethacin (INDOCIN) 50 mg Capsule TAKE 1 CAPSULE BY MOUTH THREE TIMES DAILY WITH MEALS 90 capsule 0 ??? citalopram (CeleXA) 40 mg Tablet Take 1 tablet by mouth once daily 90 tablet 3 ??? LORazepam (Ativan) 1 mg Tablet Take 1 tablet by mouth every 6 hours as needed for Anxiety. 15 tablet 1 ??? lisinopriL (Prinivil;Zestril) 20 mg Tablet Take [...] (Zonegran) Monoclonal Antibodies: [] Aimovig [] Ajovy [] Emgality Toxins: [] OnabotulinumtoxinA (Botox) Supplements: [] Butterbur [x] Coenzyme Q10 [] Feverfew [] Magnesium [x] Melatonin [] Migrelief (B2, mag, feverfew) [x] Vitamin B2 (riboflavin) Other: [] Doxycycline [] Lidocaine patch (Lidoderm) [] [place] [] Memantine (Namenda) [] Montelukast (Singulair) [] [...] Acupuncture [] Acupressure [] Biofeedback [] Car Parker [] Cognitive Behavioral Therapy [] Craniosacral therapy [...] Substances: [] Acetaminophen/Codeine (Tylenol #3) [] Acetaminophen/Hydrocodone ([place]/Vicodin) [] Acetaminophen/Oxycodone (Percocet) [] Butorphanol (Ketamine/Stadol) [] Carisoprodol (Soma) [] Fentanyl [] Hydrocodone [] Hydromorphone (Dilaudid) [x] Marijuana [] Morphine (MS Contin) [x] Oxycodone [x] Tramadol (Ultram) [] Zolpidem (Ambien) Physical Exam: Most Recent Vitals: 08/17/19 0802 BP: 126/72 Pulse: 78 SpO2: 98% (!) 144.7 kg (319 lb) Constitutional: Patient of apparent stated age, no acute distress Neuro: MS: Alert, oriented, clear language, no dysarthria, follows commands Gait: normal base and arm swing Labs: [...] the sulcus. Well seen on the 3-D curt-ra-rkejck images without evidence of flow related signal. [...] and susceptibility sequence may be helpful.. ?? CT 11/15/17 FINDINGS: There is no acute intracranial [...] intracranial process. Assessment and Plan: Chronic Migraine: We discussed preventive treatment for chronic migraine. She is tried and failed a multitude of medications and she is poorly controlled currently. We discussed on a botulinum toxin versus monoclonal antibodies to CGRP. We ultimately decided upon Emgality. We discussed side effects and method of injection. She knows she needs to store the medication in the refrigerator until 30 minutes prior to dos e. I have given her the link for the co-pay card and injection video via the after visit summary which she can access through my . She will follow-up in 3 months time via telehealth or sooner if symptoms worsen. I have spent 30 minutes face to face time with this patient. 25 minutes was spent discussing therapeutic options and teaching regarding the plan of care. REBEKAH Chang APRN [facility] Neurology, Headache Clinic * Ashwini Campuzano APRN - 08/17/2019 8:30 AM EDT MONOCLONAL ANTIBODY Note [facility] Neurology Headache Clinic Patient name: Kimberli Bales Date of : 1985 Patient Dx: G43.7 chronic migraine without aura Medication being requested: Galcanezumab (Emgality) [facility] Bales has had a lack of success with medications (or has contraindications to) from each of the three most effective anti-migraine prevention categories: anti-depressants, anti-seizure drugs, and anti- hypertensives, .. The patient has contraindications to: none Patient has tried and failed the following medications from the following classes: Reduction/Prevention: Monoclonal Antibodies: None GEPANTS: None Toxins: None TCA: Amitriptyline (Elavil) Anti-seizure: Topiramate (Topamax) SSRI: Citalopram (Celexa) SNRI: None MAOI: None Beta Blockers: None Atypical Antidepressants: None Calcium Channel Blockers: None Angiotensin II Receptor Blockers: None JUDY Inhibitors: Lisinopril (Prinivil) Alpha-1 Blockers: None Diuretics: Acetazolamide (Diamox) Other Medications: None Procedures: None Supplements/Neutraceuticals: Coenzyme Q10 Melatonin Vitamin B2 (riboflavin) Neuromodulation: None Non-pharmacologic Tx: None Acute Treatments: Triptans: None NSAIDS: Aspirin Ibuprofen (Advil) Indomethacin Ketorolac (Toradol) Gepants: None Ditans: None Ergotamines: None Anti-emetics/neuroleptics: None Combination/Other Analgesics: Acetaminophen/aspirin/caffeine (Excedrin/Pamprin/Goody's Powder) Anti-Histamines: Diphenhydramine (Benadryl) Muscle relaxers: None Steroids: Prednisone Opioids/Narcotics/Controlled Substances: Cannabis Oxycodone Tramadol Benzodiazepines: None The FDA has approved the use of Galcanezumab (Emgality) for the prevention of Chronic and Episodic Migraine. Does the patient have a latex allergy? No Allergies Allergen Reactions ??? Oxycodone-Acetaminophen Shortness Of Breath ??? Red Dye Other (See Comments) Stops heart Does the patient have medication overuse headache? No *If YES, the treatment plan will include tapering off the offending medications Does the patient have >= 15 MCGARRY days per month, of which at least 8 must be migraine days? Yes How many migraine days per month is patient experiencing? 17-18 How long do the migraines last? 4 hours or more without treatment How long has the patient had this diagnosis? years Has patient tried and failed Botox? No Will patient be receiving both Botox and a CGRP Monoclonal Antibody simultaneously? No Will patient be receiving both Galcanezumab (Emgality) and another monoclonal antibody? No Patient Reported: MIDAS Responses 08/17/2019 Days missed school/work 2 Days productivity at work/school reduced 5 Days did not do household work 5 Days productivity related to housework reduced 5 Days missed family, social or leisure activities 5 Days had headache 12 Pain scale 7 MIDAS Score 22 (MIDAS grade IV, severe disability) MIDAS Adjusted Score - documented in this encounter Plan of Treatment Not on file documented as of this encounter Visit Diagnoses Diagnosis Chronic migraine Chronic migraine without aura, without mention of intractable migraine without mention of status migrainosus Hemicrania continua documented in this encounter Care Teams Hash Slinger Relationship Specialty Start Date End Date Amada Carson MD [address] [place] [address] PCP - General Family Medicine 08/28/18 01/21/20 documented as of this encounter
--- OUTSIDE RECORDS SUMMARY | 2024-01-13 18:57 | XMS_ITS | Encounter Summary ---
[facility] [place] [address] Care Team Providers Care Manager Internet Retails Sales Name Role Phone Amada Carson MD Primary Care Provider [phone] Reason for Visit * Reason Comments Prior Authorization EMGALITY 240MG/ML SO AJ Encounter Details Date Type Department Care Team (Late st Contact Info) Description 08/26/2019 Specialty [place] [phone] Molly Villanueva, [facility] Social History Tobacco Use Types Packs/Day Years [...] Progress Notes * Molly Dwyer - 08/26/2019 2:15 PM EDT [facility], Medication Prior Authorization Patient: Kimberli Bales Patient : 1985 Patient Address: [address] [place] [phone] (home) Medication Name: EMGALITY PEN 120 MG/ML SUBCUTANEOUS PEN INJECTOR Medication ID: [id number] Patient Location: [facility] 3C Patient Location Comment: Subscriber Insurance: [employer] (ADV) Subscriber Insurance Comment: [phone] Fax: Physician: TYLER ESTRADA Physician Comment: Sent Via: CMFriendsignia: [id number] Ref/Case/PA#: Medication Strength Frequency Requested: Emgality/240mg/30 Qty/Day Supply: New Start: New to Therapy Diagnosis & ICD-10 Code: G43.709 - Chronic migraine Patient Notified: Yes Submission Notes: New patient to the medication Emgality. PA submitted via [facility]. * Molly Dwyer - 08/26/2019 2:15 PM EDT [facility], Prior Authorization Denial Medication Name: EMGALITY PEN 120 MG/ML SUBCUTANEOUS PEN INJECTOR Medication ID: [id number] Case/Reference # : [id number] Denial Summary: Not medically necessary. Patient Notified of Denial: No Additional Information from Insurance carrier. Please see below: Routing encounter to Alee Lyons in regards to denial. For any questions relating to this denial please reach out directly to your section's specialty pharmacist, or the specialty pharmacy team at [facility] * Molly Dwyer - 08/26/2019 2:15 PM EDT [facility], Prior Authorization Appeal Approval Medication Name: EMGALITY PEN 120 MG/ML SUBCUTANEOUS PEN INJECTOR Medication ID: Appeal Result: Approved Decision Date: 09/02/2019 Approved from: 09/03/2019 to 12/04/2019 Reference Number: [id number] Can be filled with: [facility] Patient Notified of Approval: To be contacted by [facility] for consult Additional Information regarding this Appeal: Emgality has been approved for 120mg #2 per 28 days for the first month followed Emgality 120mg #1 per 28 days for 2 months (total approva; for 3 months) For any questions relating to this appeal please reach out directly to your section's specialty pharmacist. documented in this encounter Plan of Treatment Not on file documented as of this encounter Visit Diagnoses Not on filedocumented in this encounter Care Teams Manager Internet Retails Sales Relationship Specialty Start Date End Date Amada Carson MD [address] [place] [address] PCP - General Family Medicine 08/28/18 01/21/20 documented as of this encounter
--- OUTSIDE RECORDS SUMMARY | 2024-01-13 18:57 | XMS_ITS | Encounter Summary ---
Author Organization [facility] [place] [address] Care Team Providers Care Supercalender Operator Name Role Phone Amada Carson MD Primary Care Provider [phone] Encounter Details Date Type Department Care Team (Late st Contact Info) Description 09/28/2019 3:00 PM EDT Ancillary Procedure Radiology Xray at Nancy Trevino [facility] [place] [id number] Social History Tobacco Use Types Packs/Day Years [...] Name Priority Date/Time Associated Diagnosis Comments XR FOOT MIN 3 VIEWS LEFT STAT 09/28/2019 3:22 PM EDT documented in this encounter Results * XR Foot Min 3 views Left (Generic) (09/28/2019 3:22 PM EDT) Anatomical Region Laterality Modality Foot Left Digital Radiogra phy Impressions 09/28/2019 3:29 PM EDT 1. ??No acute fractures seen. 2. ??1 MTP joint osteoarthropathy. Thank you for letting us participate in the care of this patient. For questions regarding this report, please contact the number below. ? Narrative 09/28/2019 3:29 PM EDT EXAMINATION: XR FOOT MIN 3 VIEWS LEFT (GENERIC) CLINICAL HISTORY: Nontraumatic pain in midfoot and heel., , entered by ordering service TECHNIQUE: Left foot, 3 views, nonweightbearing COMPARISON: none FINDINGS: Bones Calcaneus-small plantar calcaneal enthesophyte. Joints * ??1 MTP joint-osteophyte formation and minimal eccentric joint space narrowing. The lateral sesamoid bone is multi partite. * ??Lisfranc joint-normal alignment on this unloaded examination. Soft tissues Soft tissue swelling Procedure Note Dorothea More MD - 09/28/2019 EXAMINATION: XR FOOT MIN 3 VIEWS LEFT (GENERIC) CLINICAL HISTORY: Nontraumatic pain in midfoot and heel., , entered byordering service TECHNIQUE: Left foot, 3 views, nonweightbearing COMPARISON: none FINDINGS: Bones Calcaneus-small plantar calcaneal enthesophyte. Joints * 1 MTP joint-osteophyte formation and minimal eccentric joint spacenarrowing. The lateral sesamoid bone is multi partite. * Lisfranc joint-normal alignment on this unloaded examination. Soft tissues Soft tissue swelling IMPRESSION 1. No acute fractures seen. 2. 1 MTP joint osteoarthropathy. Thank you for letting us participate in the care of this patient. Forquestions regarding this report, please contact the number below. Leila Iraheta MD IMG DX ORDERABLES documented in this encounter Visit Diagnoses Not on filedocumented in this encounter Care Teams Supercalender Operator Relationship Specialty Start Date End Date Amada Carson MD [address] [place] [address] PCP - General Family Medicine 08/28/18 01/21/20 documented as of this encounter
--- OUTSIDE RECORDS SUMMARY | 2024-01-13 18:57 | XMS_ITS | Encounter Summary ---
Author Organization [facility] [place] [address] Care Team Providers Care Mortgage Servicing Specialist Name Role Phone Amada Carson MD Primary Care Provider [phone] [phone] Reason for Referral * Consultation (Routine) - Closed Specialty Diagnoses / Procedures Referred By Contac t Referred To Contact Sleep Center Diagnoses Essential hypertension Amada Carson MD [address] [facility] [place] [address] [facility] Sleep Medicine [address] [place] [id number] Referral ID Status Reason Start Date Expiration Date V isits Requested Visits Authorized [id number] Closed Specialty Service Requested 03/30/2019 03/29/2020 1 1 Reason for Visit * Reason Comments Follow-up HTN Encounter Details Date Type Department Care Team (Late st Contact Info) Description 03/30/2019 2:30 PM EST Office Visit Primary Care at [facility] [address] [place] [address] Amada Carson MD 10 [facility] [place] [address] Essential hypertension Social History Tobacco Use Types Packs/Day Years [...] Sign Reading Time Taken Comments Blood Pressure 158/98 03/30/2019 2:43 PM EST Pulse 76 03/30/2019 2:43 PM EST Temperature - - Respiratory Rate - - Oxygen Saturation 99% 03/30/2019 2:43 PM EST Inhaled Oxygen Concentration - - Weight - - Height - - Body Mass Index - - documented in this encounter Patient Instructions * Patient Instructions* Amada Carson MD - 03/30/2019 2:30 PM EST Gradually increase lisinopril until your blood pressure is controlled Week one: Lisinopril 10mg daily (1/2 of a 20mg tablet) Week two: Lisinopril 20mg (one 20mg tablet) Week three: Lisinopril 40mg (two 20mg tablets) Because you have high blood pressure (hypertension): Check your blood pressure at home. - Goal blood pressure: 120s / 70s or less Decrease salt - Decrease salt in your diet. Take the salt shaker off the table. Try using spices instead of adding salt to cooking - Read the labels of the food you eat. Try to eat less than 2,000mg of sodium per day. That means any food that has more than 200mg sodium per serving is a high sodium food. - Avoid foods that tend to be high in salt. This includes canned foods, soup, potato chips, pretzels, cured meats (e.g. lunch meat, ham, urbina, corned beef), and many seasoning mixes (e.g. taco seasoning mix). Decrease alcohol - Consuming more that 1-2 alcoholic beverages per day can increase blood pressure No nicotine. Stop smoking / chewing tobacco / vaping - Nicotine increases blood pressure. In addition, it increases your chance of a heart attack or stroke Exercise - Getting regular exercise lowers blood pressure - Exercise for at least 30-60 minutes five days per week. Try to find a form of exercise that you enjoy and will look forward to doing. It can be as simple as going for a brisk walk. Healthy diet - Try to make sure that at least half of your plate is vegetables at each meal. - Try to make sure that no more than a quarter of your plate is carbohydrates (starches). - Make sure that your carbohydrates are whole grains. This means that the label should show a significant amount of fiber. Examples include wheat bread, wheat pasta, brown rice, oatmeal, hearty whole grain cereals, and sweet potatoes. Avoid white bread, white pasta, white rice, and white potatoes. - Avoid soda and other sugary drinks. Instead, drink water, unsweetened ice tea, unsweetened coffee, or low fat milk. - The Mediterranean diet and the DASH diet both lower blood pressure Healthy weight - Your current weight is 290 pounds, which means that your BMI is 45. For most people, the goal is to have a BMI of 25 or less. However, losing even 5-10 pounds can make a big difference in your blood pressure. Your Estimated body mass index is 45.42 kg/m?? as calculated from the following: Height as of 03/11/19: 170.2 cm (5' 7). Weight as of 03/11/19: 131.5 kg (290 lb). documented in this encounter Progress Notes * Amada Carson MD - 03/30/2019 2:30 PM EST Chief Complaint: Follow-up (HTN) Subjective: HPI: Kimberli Bales is a 33 y.o. female who presents to primary care for Follow-up (HTN) She is seen alone today. She comes in today to discuss high blood pressure. The high blood pressure was first noted at her neurology visits. At first, it was thought that the indomethacin was causing the elevated blood pressure. The dose was lowered, but the blood pressure did not decrease. Her neurologist started verapamil. Kimberli states that the verapamil was prescribed only for high blood pressure, not for headacheprevention. 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 She has had a tubal ligation. Lab Results Component Value Date NA 137 03/06/2019 K 4.3 03/06/2019 CREATININE 0.67 (L) 03/06/2019 ESTGFR 114 03/06/2019 Outpatient Medications Marked as Taking for the 03/30/19 encounter (Office Visit) with Amada Carson MD Medication Sig Dispense Refill ??? LORazepam (Ativan) 1 mg Tablet Take 1 tablet by mouth every 6 hours as needed for Anxiety. 15 tablet 1 ??? indomethacin (INDOCIN) 50 mg Capsule Take 1 capsule by mouth 3 times daily (with meals). 90 capsule 2 ??? ELDERBERRY FRUIT ORAL Take 1 gummy by mouth as needed (Cold season only). ??? verapamil (Calan) 80 mg Tablet Take 1 tablet by mouth 3 times daily. 270 tablet 0 ??? citalopram (CELEXA) 40 mg Tablet Take 1 tablet by mouth daily. 90 tablet 0 ??? [DISCONTINUED] LORazepam (ATIVAN) 1 mg Tablet TAKE 1 TABLET BY MOUTH ONCE DAILY NEEDED 15 tablet 1 Allergies Allergen Reactions ??? Oxycodone-Acetaminophen Shortness Of Breath ??? Red Dye Other (See Comments) Stops heart ROS: Review of Systems Respiratory: Negative for cough, chest tightness and shortness of breath. Cardiovascular: Negative for chest pain. Neurological: Positive for speech difficulty and headaches. Negative for tremors and weakness. Objective: VS: BP (!) 158/98 (BP Location (NBP): Right arm, Patient Position: Sitting, BP Cuff Sizes: Large Adult (32-43 cm)) Pulse 76 LMP 01/18/2014 SpO2 99% Physical Exam Constitutional: General: She is not in acute distress. HENT: Right Ear: External ear normal. Left Ear: External ear normal. Nose: Nose normal. Eyes: Conjunctiva/sclera: Conjunctivae normal. Cardiovascular: Rate and Rhythm: Normal rate and regular rhythm. Heart sounds: Normal heart sounds. Pulmonary: Effort: Pulmonary effort is normal. Skin: Findings: No rash. Neurological: Cranial Nerves: No cranial nerve deficit. Coordination: Coordination normal. Psychiatric: Behavior: Behavior normal. Assessment and Plan: Kimberli was seen today for follow-up . Diagnoses and all orders for this visit: Essential hypertension Start lisinopril. Although she is of childbearing age, she has had a tubal ligation. Therefore, no need to avoid lisinopril due to the risk of defects. - lisinopriL (Prinivil;Zestril) 20 mg Tablet; Take 1 tablet by mouth daily. - Referral to Sleep Disorders Center - Basic Metabolic Panel (non-fasting); Future Other orders - LORazepam (Ativan) 1 mg Tablet; Take 1 tablet by mouth every 6 hours as needed for Anxiety. Patient Instructions Gradually increase lisinopril until your blood pressure is controlled Week one: Lisinopril 10mg daily (1/2 of a 20mg tablet) Week two: Lisinopril 20mg (one 20mg tablet) Week three: Lisinopril 40mg (two 20mg tablets) Because you have high blood pressure (hypertension): Check your blood pressure at home. - Goal blood pressure: 120s / 70s or less Decrease salt - Decrease salt in your diet. Take the salt shaker off the table. Try using spices instead of adding salt to cooking - Read the labels of the food you eat. Try to eat less than 2,000mg of sodium per day. That means any food that has more than 200mg sodium per serving is a high sodium food. - Avoid foods that tend to be high in salt. This includes canned foods, soup, potato chips, pretzels, cured meats (e.g. lunch meat, ham, urbina, corned beef), and many seasoning mixes (e.g. taco seasoning mix). Decrease alcohol - Consuming more that 1-2 alcoholic beverages per day can increase blood pressure No nicotine. Stop smoking / chewing tobacco / vaping - Nicotine increases blood pressure. In addition, it increases your chance of a heart attack or stroke Exercise - Getting regular exercise lowers blood pressure - Exercise for at least 30-60 minutes five days per week. Try to find a form of exercise that you enjoy and will look forward to doing. It can be as simple as going for a brisk walk. Healthy diet - Try to make sure that at least half of your plate is vegetables at each meal. - Try to make sure that no more than a quarter of your plate is carbohydrates (starches). - Make sure that your carbohydrates are whole grains. This means that the label should show a significant amount of fiber. Examples include wheat bread, wheat pasta, brown rice, oatmeal, hearty whole grain cereals, and sweet potatoes. Avoid white bread, white pasta, white rice, and white potatoes. - Avoid soda and other sugary drinks. Instead, drink water, unsweetened ice tea, unsweetened coffee, or low fat milk. - The Mediterranean diet and the DASH diet both lower blood pressure Healthy weight - Your current weight is 290 pounds, which means that your BMI is 45. For most people, the goal is to have a BMI of 25 or less. However, losing even 5-10 pounds can make a big difference in your blood pressure. Your Estimated body mass index is 45.42 kg/m?? as calculated from the following: Height as of 03/11/19: 170.2 cm (5' 7). Weight as of 03/11/19: 131.5 kg (290 lb). FOLLOWUP: Return in about 1 month (around 04/28/2019) for hypertension. A total of 25 minutes was spent [id number] with the patient today, 15 minutes of which was spent in counseling about treatment options, risks, and benefits. documented in this encounter Plan of Treatment Scheduled Referrals Name Type Priority Associated Diagnoses Orde r Schedule Referral to Sleep Disorders Center Outpatient Referral Routine Essential hypertension Ordered: 03/30/2019 documented as of this encounter Visit Diagnoses Diagnosis Essential hypertension Unspecified essential hypertension documented in this encounter Care Teams Mortgage Servicing Specialist Relationship Specialty Start Date End Date Amada Carson MD [address] [place] [address] PCP - General Family Medicine 08/28/18 01/21/20 documented as of this encounter
--- OUTSIDE RECORDS SUMMARY | 2024-01-13 18:57 | XMS_ITS | Encounter Summary ---
Author Organization [facility] [place] [address] Care Team Providers Care Bag Loader Machine Operator Name Role Phone Amada Carson MD Primary Care Provider [phone] Reason for Visit * Reason Comments Medication Refill Encounter Details Date Type Department Care Team (Late st Contact Info) Description 03/15/2019 Refill Neurology at [address] [address] Ashwini Campuzano, BLEACH BOILER [facility] [place] [address] Social History Tobacco Use Types Packs/Day Years [...] on filedocumented in this encounter Care Teams Bag Loader Machine Operator Relationship Specialty Start Date End Date Amada Carson MD [address] [place] [address] PCP - General Family Medicine 08/28/18 01/21/20 documented as of this encounter
--- OUTSIDE RECORDS SUMMARY | 2024-01-13 18:57 | XMS_ITS | Encounter Summary ---
Author Organization [facility] Address [facility] [place] [address] Care Team Providers Care Analog Design Engineer Name Role Phone Amada Carson MD Primary Care Provider [phone] [phone] Reason for Visit * Reason Onset Date Comments Medication Refill 01/09/2019 Encounter Details Date Type Department Care Team (Late st Contact Info) Description 01/09/2019 Refill Neurology at [address] [address] Nuvia Mckinnon MD [facility] [place] [address] Social History Tobacco Use Types Packs/Day Years [...] encounter Miscellaneous Notes * Telephone Encounter - Molly Lopez RN - 01/09/2019 3:47 PM EST [facility] Informed the biometric fingerprinting technician both indomethacin prescriptions should have only 1 refill. Understanding verbalized, refills changed to 1. documented in this encounter Plan of Treatment Not on file documented as of this encounter Visit Diagnoses Not on filedocumented in this encounter Care Teams Analog Design Engineer Relationship Specialty Start Date End Date Amada Carson MD [address] [place] [address] PCP - General Family Medicine 08/28/18 01/21/20 documented as of this encounter
--- OUTSIDE RECORDS SUMMARY | 2024-01-13 18:57 | XMS_ITS | Encounter Summary ---
Author Organization [facility] [place] [address] Care Team Providers Care C Unix Developer Name Role Phone Amada Carson MD Primary Care Provider [phone] Reason for Visit * Reason Comments Medication Refill Encounter Details Date Type Department Care Team (Late st Contact Info) Description 07/29/2019 Refill Neurology at [address] [address] Ashwini Campuzano, FIBERGLASS FINISHER [facility] [place] [address] Social History Tobacco Use Types Packs/Day Years [...] on filedocumented in this encounter Care Teams C Unix Developer Relationship Specialty Start Date End Date Amada Carson MD [address] [place] [address] PCP - General Family Medicine 08/28/18 01/21/20 documented as of this encounter
--- OUTSIDE RECORDS SUMMARY | 2024-01-13 18:57 | XMS_ITS | Encounter Summary ---
Author Organization [facility] [place] [address] Care Team Providers Care Business Systems Architect Name Role Phone Amada Carson MD Primary Care Provider [phone] Encounter Details Date Type Department Care Team (Late st Contact Info) Description 09/16/2019 Telephone Weight and Wellness at [address] [phone] Yajaira Preston, [facility] Social History Tobacco Use Types Packs/Day Years [...] encounter Miscellaneous Notes * Telephone Encounter - Yajaira Preston, B2B APPOINTMENT SETTER - 09/16/2019 3:32 PM EDT [facility] Bit Bender Pre-telemedicine Visit Phone Note Chana Bales 1985 Current medications/allergies: ??? indomethacin (INDOCIN) 50 mg Capsule ??? galcanezumab-gnlm (Emgality Pen) 120 mg/mL Pen Injector ??? citalopram (CeleXA) 40 mg Tablet ??? LORazepam (Ativan) 1 mg Tablet ??? lisinopriL (Prinivil;Zestril) 20 mg Tablet ??? ELDERBERRY FRUIT ORAL Allergies Allergen Reactions ??? Oxycodone-Acetaminophen Shortness Of Breath ??? Red Dye Other (See Comments) Stops heart [] Patient was not reached: [] No working phone [] Message left to call [phone] [x] Patient was reached and the following information was reviewed/obtained per protocol: [x] Confirmed patient name and date of [x] Confirmed address where patient will be at time of call Patient is in [] [place] [x] [place] [] Other: [address] [place] [address] [x] Confirmed best number to be reached is: [phone] [x] Confirmed telemedicine software downloaded and functioning REVIEW: [x] Review of patient medications completed [x] NEW medications include: [x] Confirmed preferred pharmacy:[facility] [] Prescriptions ready to be signed: [x] Documented self reported vital signs from [x] Home [] PCP [] outside PCP Date: 09/16/2019 [x] Weight 317 [x] Height 5'6 [] Blood pressure [] Pulse [x] Asked about any recent labs/studies [x] No [] Yes: [] Labs/vitals requested [] Labs/vitals sent for scanning (press secretary) and entry (RN) [x] Requested 24 hour diet recall [] Reminded to sign up for MyD [x] Reminded to complete MyD survey if message received to do so [] Other information or concerns: Reviewed 24 hour diet recall, pt will have at appointment time. Yajaira Preston CMA documented in this encounter Plan of Treatment [...] filedocumented in this encounter Care Teams Business Systems Architect Relationship Specialty Start Date End Date Amada Carson MD [address] FAM[facility] [place] [id number] PCP - General Family Medicine 08/28/18 01/21/20 documented as of this encounter
--- OUTSIDE RECORDS SUMMARY | 2024-01-13 18:57 | XMS_ITS | Encounter Summary ---
Author Organization [facility] [place] [address] Care Team Providers Care Bioprocess Development Engineer Name Role Phone Amada Carson MD Primary Care Provider [phone] Reason for Visit * Reason Comments Medication Refill Encounter Details Date Type Department Care Team (Late st Contact Info) Description 05/16/2019 Refill Primary Care at [facility] 10 [place] [phone] Amada Carson MD 10 [facility] [address] Social History Tobacco Use Types Packs/Day Years [...] encounter Miscellaneous Notes * Telephone Encounter - Jamil Lock LPN - 05/18/2019 8:25 AM EDT Last Prescription Fill Date: 02/16/19 Number Dispensed and Refills: 90 w/ 0 refills Last Related Office Visit: 03/30/19 Upcoming Appointment: Visit date not found No flowsheet data found. Lab Results Component Value Date HGB 12.8 03/06/2019 HCT 40.6 03/06/2019 ALT 22 01/28/2019 AST 14 01/28/2019 NA 137 03/06/2019 K 4.3 03/06/2019 CL 100 03/06/2019 CREATININE 0.67 (L) 03/06/2019 TSH 1.81 11/15/2017 INR 1.0 11/15/2017 HA1C 5.0 (External Lab) 09/13/2015 documented in this encounter Plan of Treatment Not on file documented as of this encounter Visit Diagnoses Not on filedocumented in this encounter Care Teams Bioprocess Development Engineer Relationship Specialty Start Date End Date Amada Carson MD [address] [place] [address] PCP - General Family Medicine 08/28/18 01/21/20 documented as of this encounter
--- OUTSIDE RECORDS SUMMARY | 2024-01-13 18:57 | XMS_ITS | Encounter Summary ---
Author Organization [facility] [place] [address] Care Team Providers Care Director Financial Analysis Name Role Phone Amada Carson MD Primary Care Provider [phone] Encounter Details Date Type Department Care Team (Late st Contact Info) Description 07/01/2019 Telephone [place] [address] Therese Pak Social History Tobacco Use Types Packs/Day Years [...] encounter Miscellaneous Notes * Telephone Encounter - Therese Pak - 07/01/2019 1:46 PM EDT Tried to call patient per Dr. Mulligan request to do a chart review. Asked her to call us back sothat we could update her. It appears that she needs to provide the following 1. Most recent annual wellness exam & PCP letter of support 2. Most recent pap smear results 3. 6 months of Dietary counseling & 5% weight loss which is required with her insurance ( startweight is 320 - weight loss goal with 5% is 304) 4. Psychological evaluation 5. Sleep study results - sleep consult was done on 04/01 with plan to perform an in lab study 6. Step 2 packet ( 7 day food journal, dieting history, weight graph chart, medication log and signed surgery agreement) documented in this encounter Plan of Treatment Not on file documented as of this encounter Visit Diagnoses Not on filedocumented in this encounter Care Teams Director Financial Analysis Relationship Specialty Start Date End Date Amada Carson MD [address] [place] [address] PCP - General Family Medicine 08/28/18 01/21/20 documented as of this encounter
--- OUTSIDE RECORDS SUMMARY | 2024-01-13 18:57 | XMS_ITS | Encounter Summary ---
Author Organization [facility] Address [facility] [place] [address] Care Team Providers Care Textile Designs Sales Representative Name Role Phone Amada Carson MD Primary Care Provider [phone] Reason for Visit * Reason Onset Date Comments Prior Authorization 11/07/2018 pantoprazole Encounter Details Date Type Department Care Team (Late st Contact Info) Description 11/07/2018 Telephone Neurology at [address] [address] Ted Mckinnon MD [facility] [place] [address] Prior Authorization (pantoprazole) Social History Tobacco Use Types Packs/Day Years [...] Miscellaneous Notes * Telephone Encounter - Ladonna Lyons RN - 11/13/2018 9:08 AM EDT Images from the original note were not included. * Telephone Encounter - Molly Lopez RN - 11/10/2018 4:58 PM EDT Request for further information received. Answers faxed. * Telephone Encounter - Molly Lopez RN - 11/07/2018 3:09 PM EDT Images from the original note were not included. documented in this encounter Plan of Treatment Not on file documented as of this encounter Visit Diagnoses Not on filedocumented in this encounter Care Teams Textile Designs Sales Representative Relationship Specialty Start Date End Date Amada Carson MD [address] [place] [address] PCP - General Family Medicine 08/28/18 01/21/20 documented as of this encounter
--- OUTSIDE RECORDS SUMMARY | 2024-01-13 18:57 | XMS_ITS | Encounter Summary ---
Author Organization [facility] Address [facility] [place] [address] Care Team Providers Care Energy Broker Name Role Phone Amada Carson MD Primary Care Provider [phone] [phone] Reason for Visit * Reason Comments Medication Management Medication Refill Encounter Details Date Type Department Care Team (Late st Contact Info) Description 09/09/2019 Specialty [place] [id number] Jabari Carney [facility] Social History Tobacco Use [...] as of this encounter Progress Notes * Jabari Carney RP - 09/09/2019 2:48 PM EDT Specialty Pharmacy Consultation; Jabari Carney [place] Comprehensive Medication Management (CMM): [facility] Consult, Opt Out Kimberli Bales Diagnosis: Migraines Therapy Start Date: ~09/11/2019 Contact in person or via telephone:Telephone Summary and Recommendations: Kimberli R Amairani was contacted in regards to a new prescription of Emgality to be filled with [facility]. Kimberli R Amairani is aware of how to take this medication and of the prescribed dose. Kimberli Elizondoers will be contacted by pharmacy for refill reminder when their next refill is due. Kimberli Elizondoers will be contacted by the pharmacy for regular MIDAS assessments to assess medication effectiveness. The patient's last MIDAS took place on 08/17/2019. Therapy Assessment: Appropriate Therapy: Yes Current Medication Dosing/Route/Frequency: Emgality 240mg SQ for one dose then Emgality 120mg SQ once every 30 days thereafter Additional equipment/supplies required: Sharps container Care Plan Reviewed and Approved by Pharmacist : Yes Pharmacist Reviewed Medications: Yes Medications reconciled: No Pharmacist Reviewed Allergies :Yes Allergies reconciled: No Pharmacist follow-up needed: No Informed patient of specialty pharmacy services: Yes -Patient is aware a licensed pharmacist is available 24 hours a day, 7 days a week to discuss medication-related questions or concerns: Yes -Patient verbalizes understanding of the common side effect profile of their medication. The patient is able to call 911 or seek urgent care if signs/symptoms of allergy or harmful adverse reactions occur: Yes Patient understands no changes to current drug regimen were made at the appointment and that the pharmacist is providing recommendations (summary located at top of note) for provider review and follow up. Jabari Carney RPH 09/09/19 2:49 PM documented in this encounter Plan of Treatment Not on file documented as of this encounter Visit Diagnoses Not on filedocumented in this encounter Care Teams Energy Broker Relationship Specialty Start Date End Date Amaad Carson MD [address] [place] [address] PCP - General Family Medicine 08/28/18 01/21/20 documented as of this encounter
--- OUTSIDE RECORDS SUMMARY | 2024-01-13 18:57 | XMS_ITS | Encounter Summary ---
[place] [address] Care Team Providers Care Noc Technician Name Role Phone Amada Carson MD Primary Care Provider [phone] [phone] Encounter Details Date Type Department Care Team (Late st Contact Info) Description 03/11/2019 9:00 AM EST Office Visit Neurology at [address] [phone] Ashwini Campuzano, AIRPLANE COVERER [facility] [place] [address] Hemicrania continua; Chronic migraine; High risk medication use Social History Tobacco [...] Sign Reading Time Taken Comments Blood Pressure 147/95 03/11/2019 8:26 AM EST Pulse 84 03/11/2019 8:26 AM EST Temperature - - Respiratory Rate - - Oxygen Saturation - - Inhaled Oxygen Concentration - - Weight 131.5 kg (290 lb) 03/11/2019 8:26 AM EST Reported Height 170.2 cm (5' 7) 03/11/2019 8:26 AM EST R eported Body Mass Index 45.42 03/11/2019 8:26 AM EST documented in this encounter Progress Notes * Ashwini Campuzano, JOSUE - 03/11/2019 9:00 AM EST Neurology Headache Clinic Follow-up Patient Name: Kimberli Bales Patient ID: Kimberli Bales is a 33 y.o. female seen at [facility] previously by Dr. Mercado, Headache Fellow. She has a history of Chronic Migraine, Hemicrania continua, strabismus s/p bilateral lateral rectus recessions and repeat right lateral rectus recession. She carried a diagnosis of IIH butshe never had a documented elevation in CSF opening pressure of >25cm of water. Last opening pressure in fact was 4cm H20. Last Visit 01/28/19: Blood work obtained and continued on Indomethacin. Added Verapamil Interval History: Blood work is stable. Her Creat clearance was a little low. Repeat 1 month later was stable Feeling less irritable. No side effects with the verapamil. Really doesn't think that theverapamil has done anything for her headache. She is taking 75 mg of indomethacin 3 times a day. Itwas increased because she was still having headaches. She does not recall whether she is any different with the 75 mg versus the 50 mg because the change was so long ago. She is exercising, has active work and home life. She eats well. Patient Reported/Provider Adjusted: MIDAS ADJUSTED SCORE 03/11/2019 On how many days in the last three months did you have a headache? (If a headache lasted more than a day, count each day) 25 On a scale of 0 to 10, on average, how painful were those headaches? (0 = no pain at all and 10 = the worst pain you can imagine) 7 On how many days in the last three months did you miss work or school because of your headaches? 5 How many days in the last three months was your productivity at work or school reduced by half or more because of your headaches? (Do not include days you counted in question 1 where you missed work or school) 10 On how many days in the last three months did you not do household work (such as housework, home repairs and maintenance, shopping, caring for children and relatives) because of your headaches? 10 How many days in the last three months was your productivity related to household work reduced by half or more because of your headaches? (Do not include days you counted in question 3 where you did not do household work) 10 On how many days in the last three months did you miss family, social, or leisure activites becauseof your headaches? 5 MIDAS Adjusted Score 40 ROS: denies SOB, denies CP, denies dizziness, denies abdominal pain, denies blurred vision Medications: Current Outpatient Medications Medication Sig Dispense Refill ??? ELDERBERRY FRUIT ORAL Take 1 gummy by mouth as needed (Cold season only). ??? citalopram (CELEXA) 40 mg Tablet Take 1 tablet by mouth daily. 90 tablet 0 ??? verapamil (CALAN) 40 mg Tablet Take 1 tablet by mouth 3 times daily. 90 tablet 2 ??? LORazepam (ATIVAN) 1 mg Tablet TAKE 1 TABLET BY MOUTH ONCE DAILY NEEDED 15 tablet 1 ??? indomethacin (INDOCIN) 50 mg Capsule Take 1 capsule by mouth 3 times daily (with meals). 90 capsule 1 ??? indomethacin (INDOCIN) 25 mg Capsule Take 1 capsule by mouth 3 times daily. Take with the indomethacin 50 mg tablet for a total of 75 mg TID. 90 capsule 5 ??? pantoprazole (PROTONIX) 40 mg Tablet, Delayed Release (E.C.) Take 1 tablet by mouth 2 times daily. (Patient not taking: Reported on 03/11/2019) 60 tablet 5 No current facility-administered medications for this visit. [...] [] Captopril [] Enalapril (Vasotec) [] Fosinopril [] Lisinopril (Prinivil) [] Moexipril [] Perindopril (Aceon) [...] (Cardene) [] Nifedipine (Procardia) [] Nisoldipine (Sular) [] Verapamil Diuretics: [] Furosemide (Lasix) [] Hydrochlorothiazide [...] [] Doxycycline [] Lidocaine patch (Lidoderm) [] [place] [] Memantine (Namenda) [] Montelukast (Singulair) [] [...] [] Acupuncture [] Acupressure [] Biofeedback [] Interventional Physician [] Cognitive Behavioral Therapy [] Craniosacral therapy [...] Substances: [] Acetaminophen/Codeine (Tylenol #3) [] Acetaminophen/Hydrocodone ([place]/Vicodin) [] Acetaminophen/Oxycodone (Percocet) [] Butorphanol (Ketamine/Stadol) [] Carisoprodol (Soma) [] Fentanyl [] Hydrocodone [] Hydromorphone (Dilaudid) [x] Marijuana [] Morphine (MS Contin) [x] Oxycodone [x] Tramadol (Ultram) [] Zolpidem (Ambien) Physical Exam: Most Recent Vitals: 03/11/19 0826 BP: (!) 147/95 Pulse: 84 131.5 kg (290 lb) Constitutional: Patient of apparent stated age, [...] the sulcus. Well seen on the 3-D [id number] images without evidence of flow related signal. [...] No acute intracranial process. Assessment and Plan: Hemicrania Continua: She was agreeable to try to decrease the indomethacin to 50 mg 3 times a day but would call if she had a worsening of her side locked headache. Her GFR is normal. Creatinine clearance is slightly low. Blood counts are normal. I am not sure whether the indomethacin is the cause of her elevated bloodpressure or rather an underlying essential hypertension. She is yet to see the her PCP and I have encouraged her to do so. I will follow her blood work for problems with the indomethacin. Chronic Migraine: She has had improvement in her blood pressure with the verapamil but has not seen an improvement inher headaches. I will increase the verapamil to 80 mg 3 times per day. Future considerations include monoclonal antibody to CGRP. We may have to have her retry some of the previous medications or alternatives prior to be able to getting this approved. Candesartan is another alternative should her blood pressure not respond to the increase in the verapamil. She will follow-up in 2 months time or sooner if symptoms worsen. I have spent 30 minutes face to face time with this patient. 25 minutes was spent discussing therapeutic options and teaching regarding the plan of care. REBEKAH Chang APRN [facility] Neurology, Headache Clinic documented in this encounter Plan of Treatment Not on file documented as of this encounter Visit Diagnoses Diagnosis Hemicrania continua Chronic migraine Chronic migraine without aura, without mention of intractable migraine without mention of status migrainosus High risk medication use Encounter for long-term (current) use of other medications documented in this encounter Care Teams Noc Technician Relationship Specialty Start Date End Date Amada Carson MD [address] [place] [address] PCP - General Family Medicine 08/28/18 01/21/20 documented as of this encounter
--- OUTSIDE RECORDS SUMMARY | 2024-01-13 18:57 | XMS_ITS | Encounter Summary ---
Author Organization [facility] [place] [address] Care Team Providers Care Weigher Alloy Name Role Phone Amada Carson MD Primary Care Provider [phone] [phone] Encounter Details Date Type Department Care Team (Late st Contact Info) Description 10/08/2019 Telephone [facility] [address] [place] [phone] Heather Diaz Social History Tobacco Use Types Packs/Day Years [...] on filedocumented in this encounter Care Teams Weigher Alloy Relationship Specialty Start Date End Date Amada Carson MD [address] [facility] [place] [address] PCP - General Family Medicine 08/28/18 01/21/20 documented as of this encounter
--- OUTSIDE RECORDS SUMMARY | 2024-01-13 18:57 | XMS_ITS | Encounter Summary ---
Author Organization [facility] Address [facility] [place] [address] Care Team Providers Care Acrobatic Rigger Name Role Phone Amada Carson MD Primary Care Provider [phone] Reason for Referral * Physical Therapy (Routine) - Closed Specialty Diagnoses / Procedures Referred By Contjaqueline t Referred To Contact Physical Therapy Diagnoses Neck pain Amada Carson MD [address] [facility] [address] [place] [address] [facility] [address] [place] [address] Referral ID Status Reason Start Date Expiration Date V isits Requested Visits Authorized [id number] Closed Evaluate and Treat 10/09/2019 04/06/2020 1 1 Reason for Visit * Reason Comments Headache Encounter Details Date Type Department Care Team (Late st Contact Info) Description 10/09/2019 3:00 PM EDT Office Visit Primary Care at [facility] [address] [facility] [place] [address] Amada Carson MD [address] [facility] [place] [address] Syncope, unspecified syncope type; Acute intractable headache, unspecified headache type; Panic disorder without agoraphobia; Neck pain Social History Tobacco Use Types Packs/Day [...] Sign Reading Time Taken Comments Blood Pressure 164/94 10/09/2019 3:08 PM EDT Pulse 98 10/09/2019 3:08 PM EDT Temperature 36.7 ??C (98 ??F) 10/09/2019 3:00 PM EDT Respiratory Rate - - Oxygen Saturation 98% 10/09/2019 3:08 PM EDT Inhaled Oxygen Concentration - - Weight - - Height - - Body Mass Index - - documented in this encounter Progress Notes * Amada Carson MD - 10/09/2019 3:00 PM EDT emChief Complaint: Headache Subjective: HPI: Kimberli Bales is a 33 y.o. female who presents to primary care for Headache Kimberli is a 33 y.o. female who presents to the primary care office today to follow up on a recent hospital discharge. She is accompanied by her . Admission date: 09/28/19 Discharge date: 09/29/19 Diagnosis for admission: transient alteration in awareness. Disposition: Home She was admitted to [facility] from 09/27 to 09/28. Her symptoms leading up to admission included headache and syncope. Her final diagnosis was transient alteration in awareness. During the admission, she had an MRI (results below). Discharge disposition: Home Since discharge, she has been feeling poorly. She continues to have severe headaches, including an especially severe one today that is located bilaterally in the frontal region and occiput. She notices that her neck is sore and tight and is unsure if that is related. She has continued to have briefepisodes of loss of consciousness that last only a couple seconds. In fact, it happened today in our waiting room. These episodes tend to happen when she is in especially severe pain, as is the case with today's headache. Imaging from admission: Mri Angiogram Head Wo & Mri Brain Wwo Contrast Result Date: 09/29/2019 MRA head: No aneurysm, vascular malformation, significant arterial stenosis, cut off, or other significant arterial abnormality. 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 MRA head: Normal study. Thank you for letting us participate in the care of this patient. For questions regarding this report, please contact the number below. Outpatient Medications Marked as Taking for the 10/09/19 encounter (Office Visit) with Amada Carson MD Medication Sig Dispense Refill ??? LORazepam (Ativan) 1 mg Tablet Take 1 tablet by mouth every 6 hours as needed for Anxiety. 15 tablet 0 ??? indomethacin (INDOCIN) 50 mg Capsule TAKE 1 CAPSULE BY MOUTH THREE TIMES DAILY WITH MEALS 90 capsule 3 ??? galcanezumab-gnlm (Emgality Pen) 120 mg/mL Pen Injector Inject 120 mg subcutaneously every 30 days. 1 mL 11 ??? citalopram (CeleXA) 40 mg Tablet Take 1 tablet by mouth once daily 90 tablet 3 ??? lisinopriL (Prinivil;Zestril) 20 mg Tablet Take 1 tablet by mouth daily. 90 tablet 3 ??? ELDERBERRY FRUIT ORAL Take 1 gummy by mouth as needed (Cold season only). Current Facility-Administered Medications for the 10/09/19 encounter (Office Visit) with Amada Carson MD Medication Dose Route Frequency Provider Last Rate Last Dose ??? [COMPLETED] ketorolac (TORADOL) injection 60 mg 60 mg Intramuscular Once Amada Carson MD 60 mg at 10/09/19 1636 Allergies Allergen Reactions ??? Oxycodone-Acetaminophen Shortness Of Breath ??? Red Dye Other (See Comments) Stops heart ROS: Review of Systems Objective: VS: BP (!) 164/94 (BP Location (NBP): Right arm, Patient Position: Standing, BP Cuff Sizes: Large Adult (32-43 cm)) Pulse 98 Temp 36.7 ??C (98 ??F) LMP 01/18/2014 SpO2 98% Physical Exam Constitutional: General: She is not in acute distress. HENT: Right Ear: External ear normal. Left Ear: External ear normal. Nose: Nose normal. Eyes: Conjunctiva/sclera: Conjunctivae normal. Pulmonary: Effort: Pulmonary effort is normal. Musculoskeletal: Comments: Cervical paraspinal muscles, scalenes, levator scapula, and upper trapezius tight and tender bilaterally Skin: Findings: No rash. Neurological: General: No focal deficit present. Mental Status: She is oriented to person, place, and time. Mental status is at baseline. Cranial Nerves: No cranial nerve deficit. Sensory: No sensory deficit. Motor: No weakness. Coordination: Coordination normal. Gait: Gait normal. Psychiatric: Behavior: Behavior normal. Assessment and Plan: Problem List Items Addressed This Visit None Visit Diagnoses Syncope, unspecified syncope type She has a referral for an EEG that was placed by neurology on 09/29. This has not yet been scheduled, so I will have our front services agent staff check on the status of the referral. If this is triggered by pain, trying to get her headaches under control may help Acute intractable headache, unspecified headache type She is followed by the headache clinic at neurology, and she recently started emgality. She was given ketoralac today, but it only modestly improved the pain. Trigger point dry needling performed with acupuncture needles on upper trapezius on the right . That was quickly aborted after the the first needle (which was in the upper trapezius) increased the pain, so that was aborted. My next plan was to perform a sphenopalatine ganglion block (ie lidocaine intranasal), but the correct concentration of lidocaine was not available anywhere on the [facility]. Discussed going to the ER, where they may be able to use additional IV medications (we only have ketoralac), but she statesthat she just wants to go home Relevant Medications ketorolac (TORADOL) injection 60 mg (Completed) Panic disorder without agoraphobia Relevant Medications LORazepam (Ativan) 1 mg Tablet #15 Neck pain Relevant Orders Referral to Physical Therapy New Prescriptions No medications on file Modified Medications Modified Medication Previous Medication None Discontinued Medications No medications on file documented in this encounter Plan of Treatment Scheduled Referrals Name Type Priority Associated Diagnoses Orde r Schedule Referral to Physical Therapy Outpatient Referral Routine Neck pain Ordered: 10/09/2019 documented as of this encounter Goals Goal [...] type Acute intractable headache, unspecified headache type Panic disorder without agoraphobia Neck pain Cervicalgia documented in this encounter Administered Medications Inactive Administered Medications - up to 3 most recent administrations Medication Order MAR Action Action Date Dose Rate Site ketorolac (TORADOL) injection 60 mg 60 mg, Intramuscular, ONCE, 1 dose, On Sat10/09/19 at 1600, Routine Given 10/09/2019 4:36 PM EDT 60 mg Righ t Gluteal documented in this encounter Care Teams Acrobatic Rigger Relationship Specialty Start Date End Date Amada Carson MD [address] [place] [address] PCP - General Family Medicine 08/28/18 01/21/20 documented as of this encounter
--- OUTSIDE RECORDS SUMMARY | 2024-01-13 18:57 | XMS_ITS | Encounter Summary ---
Author Organization [facility] [place] [address] Care Team Providers Care Orthopedic Cast Specialist Name Role Phone Amada Carson MD Primary Care Provider [phone] [phone] Encounter Details Date Type Department Care Team (Late st Contact Info) Description 02/03/2019 Orders Only Neurology at [address] [phone] Ashwini Campuzano, ADMINISTRATIVE CLERK [facility] [place] [address] High risk medication use Social History Tobacco [...] on file documented as of this encounter Results * (ABNORMAL) Basic Metabolic Panel (non-fasting) (03/06/2019 11:26 AM EST) Glucose 95 65 - 199 mg/dL [facility] Comment:Diabetes: >=200 mg/d L plus symptoms Blood Urea Nitrogen 10 8 - 18 mg/dL [facility] Creatinine 0.67(L) 0.70 - 1.20 mg/dL [facility] Sodium 137 135 - 145 mmol/L [facility] Potassium 4.3 3.5 - 5.0 mmol/L [facility] Comment: Please note: ??Patients with WBC >100,000 may have falsely elevated Potassium levels. ??For accurate Potassium quantification in these patients send serum separator tube (gold top) for subsequent determinations. ??Contact the Clinical Chemistry Laboratory if there are any questions. Chloride 100 98 - 107 mmol/L [facility] Carbon Dioxide 27 22 - 31 mmol/L [facility] Anion Gap 10 5 - 15 mmol/L [facility] Calcium 9.9 8.5 - 10.5 mg/dL [facility] Est Glomerular Filtration Rate 114 >=60 mL/min/1. 73 m?? [facility] Comment: The eGFR was calculated using the CKD-EPI equation. As with all creatinine based estimates of kidney function, eGFR values calculated with the CKD-EPI equation are not accurate in patients with acute kidney failure, extremes of body mass or the acutely ill. [email or web address]nkf eGFR 132 >=60 mL/min/1. 73 m?? [facility] Comment: The eGFR was calculated using the CKD-EPI equation. As with all creatinine based estimates of kidney function, eGFR values calculated with the CKD-EPI equation are not accurate in patients with acute kidney failure, extremes of body mass or the acutely ill. [email or web address] Blood specimen (specimen) 03/06/2019 11:26 AM EST 03/06/2019 12:55 PM EST Narrative Resulting Agency Comment Spec In Lab Ashwini Campuzano APRN CHEMISTRY ORDERABL ES [facility] [place] [address] documented in this encounter Visit Diagnoses Diagnosis High risk medication use Encounter for long-term (current) use of other medications documented in this encounter Care Teams Orthopedic Cast Specialist Relationship Specialty Start Date End Date Amada Carson MD [address] [place] [address] PCP - General Family Medicine 08/28/18 01/21/20 documented as of this encounter
--- OUTSIDE RECORDS SUMMARY | 2024-01-13 18:57 | XMS_ITS | Encounter Summary ---
Author Organization [facility] [place] [address] Care Team Providers Care Senior Manufacturing Engineer Name Role Phone Amada Carson MD Primary Care Provider [phone] [phone] Encounter Details Date Type Department Care Team (Late st Contact Info) Description 09/02/2019 Telephone Neurology at [address] [phone] Ashwini Campuzano, ELECTRIC REFRIGERATOR PREPARER [facility] [place] [address] Social History Tobacco Use Types Packs/Day Years [...] encounter Miscellaneous Notes * Telephone Encounter - Benson Henderson - 09/03/2019 9:30 AM EDT Patrick apodaca states they have approved this request. Will fax approval as well to [phone] * Telephone Encounter - Mary Sewell RN - 09/02/2019 12:36 PM EDT Letter of Appeal for Emgality faxed to [facility] [phone] documented in this encounter Plan of Treatment [...] on filedocumented in this encounter Care Teams Senior Manufacturing Engineer Relationship Specialty Start Date End Date Amada Carson MD [address] [place] [address] PCP - General Family Medicine 08/28/18 01/21/20 documented as of this encounter
--- OUTSIDE RECORDS SUMMARY | 2024-01-13 18:57 | XMS_ITS | Encounter Summary ---
Author Organization [facility] Address [facility] [place] [address] Care Team Providers Care Machining Technician Name Role Phone Amada Carson MD Primary Care Provider [phone] [phone] Reason for Visit * Reason Comments Seizures Headache Encounter Details Date Type Department Care Team (Late st Contact Info) Description 10/10/2019 4:37 PM EDT - 10/10/2019 9:48 PM EDT [place] [id number] Marcela Adames MD [facility] [place] [address] Psychogenic syncope Discharge Disposition: Home Social History Tobacco Use [...] Sign Reading Time Taken Comments Blood Pressure 121/61 10/10/2019 9:30 PM EDT Pulse 73 10/10/2019 8:45 PM EDT Temperature 36.8 ??C (98.2 ??F) 10/10/2019 4:54 PM ED T Respiratory Rate 18 10/10/2019 8:45 PM EDT Oxygen Saturation 96% 10/10/2019 9:30 PM EDT Inhaled Oxygen Concentration - - Weight - - Height - - Body Mass Index - - documented in this encounter Discharge Instructions * Discharge Instructions* Bogdanic, Asael, MD - 10/10/2019 9:17 PM EDT You were seen today in the [facility] ED for neurological symptoms including passing out, weakness, headache, and leg pain. We monitored your vitals while you were here and they were all within normal limits. We also contacted neurology to make sure we completed the full work-up for your symptoms that was started during your admission a few weeks ago. They recommended doing an EEG as the final piece of that work-up to rule out things like seizures or stroke. The EEG was done and showed no evidence of seizure activity. At this point we feel you are safe to go home and follow up with your neurologist. Please return to the ED if your symptoms worsen considerably or you experience any new symptoms that are concerning. documented in this encounter Medications at Time [...] 03/30/2019 01/21/2020 documented as of this encounter Procedure Notes * [place] Eun E - 10/10/2019 8:01 PM EDTAssociated Order(s): EEG AWAKE, ASLEEP, DROWSY [facility] Department of Neurology Inpatient EEG Report Name of the Patient: Kimberli Bales Date of : 1985 Date of Service: 10/10/2019 Referring physician: Dr. Sofia M.D. BRIEF HISTORY: Kimberli Bales is a 33 y.o. patient with possible seizures. MEDICATIONS: No current facility-administered medications for this encounter. Current Outpatient Medications Medication Sig Dispense Refill ??? LORazepam (Ativan) [...] channel digitized electroencephalogram was performed in the [facility]. The 10/20 international system of electrode placement was used and bipolar and referential electrode montages were recorded. In addition to EEG the patient was monitored for EKGand lateral/vertical eye movements. Video was recorded during the session. The duration of the recording was ~60 minutes. ADMINISTRATIVE SUPPORT ASSOC'S REPORT: Performed by: SB Patient was not sleep deprived. Sleep was not attained. Photic stimulation was performed. Hyperventilation was not performed. Effort was was not adequate. Movement and other artifact was not significant. Comments:NA ELECTROENCEPHALOGRAPHER'S REPORT: Background During the awake state with the eyes closed the background consisted of a normal amplitude, 10 Hz posterior reactive rhythm that attenuated appropriately with eye opening. Beta activity was distributed diffusely with an anterior predominance. There was a normal anterior-posterior voltage gradient. With eye opening the background activity changed to a low voltage mixture of alpha, beta, and occasional theta range frequencies. There were no significant asymmetries of background activity noted. Sleep Sleep was not captured. Hyperventilation Hyperventilation was not performed. Photic Stimulation Photic stimulation using a step-gil increase in photic frequency varying from 1-21 Hertz resulted in bilateral driving responses at multiple frequencies but no appearance of abnormal activity. Abnormal EEG Activity None EKG EKG revealed normal sinus rhythm. PRIOR EEG: No previous EEG reports were available. INTERPRETATION: This EEG is normal during the [...] to increase the sensitivity of detecting abnormalities. Eun Rader MD Epilepsy Fellow #[id number] 10/10/2019 8:32 PM. Associated attestation - Cheko Heath MD - 10/12/2019 5:18 PM EDT EPILEPSY ATTENDING ADDENDUM - I reviewed the EEG with the SEC ACCOUNTANT/Epilepsy fellow, and I agree with the interpretation as documented. Events recorded during the study consisted of decreased responsiveness to the technologist, eye rolling movements and crying. These had no EEG correlate; awake background was unchanged. Cheko Heath MD, PhD Skip Loader of Neurology [facility] documented in this encounter ED Notes * Nikita Ernandez NRP - 10/10/2019 6:57 PM EDT Patient in the room with EEG setting her up for the EEG monitoring * Nikita Ernandez NRP - 10/10/2019 6:47 PM EDT EEG at the bedside * Asael Black MD - 10/10/2019 4:56 PM EDT ED Resident Note Kimberli Bales is an 33 y.o. female who presents to the ED with: Chief Complaint Patient presents with ??? Seizures ??? Headache I saw this patient on 10/10/2019. History is from the patient and her at bedside. HPI Kimberli Elizondoers is a 33 y.o. female who presents to the Emergency Department for recent seizure-like episodes. She has a past history of hemicrania continua, intracranial hypertension (but no documented pressure of >25), and ELMA. She is here today for severe headache and several syncopal episodes. Her says the syncopal episodes appear to be seizures. Sometimes she shakes. She is impossible to wake up during these episodes and reportedly does not remember them when she does wake up. She is also complaining of L sided weakness and pain. She had several such episodes in the ED, one after the nurse took blood, one randomly; her vitals did not change at all during these episodes. Also had a few episodes yesterday at her PCPs office. Was admitted to neuro recently on 09/27-09/28 for very similar symptoms; had initially presented for headache, syncope, and weakness. 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 Was seen by neurology who deemed the syncopal spells as well as L sided weakness to be non-physiologic in origin. The venous anomaly was deemed benign and unrelated to her symptoms. She and her recall being told that she had a brain mass and were very anxious about this. Followed in the headache clinic by Ashwini Campuzano; recently started on Emgality. Prior admission for headache and stuttering in 2018; had imaging and LP. IC pressure normal. Headache did not resolve with LP but symptoms of stuttering did; thought to be functional in nature. 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 Review of Systems: Review of Systems Constitutional: Negative for fever. HENT: Negative for mouth sores, sore throat and trouble swallowing. Eyes: Negative for visual disturbance. Respiratory: Negative for cough and chest tightness. Cardiovascular: Positive for palpitations. Negative for chest pain. Gastrointestinal: Positive for nausea (mild). Negative for abdominal pain, constipation, diarrhea and vomiting. Genitourinary: Negative for difficulty urinating. Musculoskeletal: Positive for gait problem (L leg has been sore, intermittently can't lift it properly in last 10 days) and neck pain (in the last ten days; worsened with headaches). Negative for joint swelling and myalgias. Skin: Negative for rash. Neurological: Positive for dizziness (when headache gets bad), syncope, weakness and headaches. Negative for tremors and facial asymmetry. Hematological: Negative for adenopathy. Psychiatric/Behavioral: Positive for decreased concentration (with headaches) and sleep disturbance(waking multiple times a night for last few days). Negative for dysphoric mood, hallucinations, self-injury and suicidal ideas. The patient is nervous/anxious. Physical Exam: Patient Vitals for the past 24 hrs: BP Temp Temp src Pulse Resp SpO2 10/10/19 2130 121/61 -- -- -- -- 96 % 10/10/192044 101/71 -- -- 73 18 96 % 10/10/192029 124/76 -- -- 78 16 -- 10/10/192028 -- -- -- 77 16 97 % 10/10/191999 128/70 -- -- 74 17 94 % 10/10/19 1930 126/70 -- -- 77 15 93 % 10/10/19 1900 128/64 -- -- 79 18 94 % 10/10/19 1830 121/68 -- -- 78 18 95 % 10/10/19 1800 131/73 -- -- 80 18 96 % 10/10/19 1730 121/69 -- -- 82 20 93 % 10/10/19 1700 132/55 -- -- 87 17 95 % 10/10/19 1654 147/84 36.8 ??C (98.2 ??F) Oral 87 20 96 % 10/10/19 1653 147/84 -- -- 89 20 97 % There is no height or weight on file to calculate BMI. Physical Exam Vitals signs reviewed. Constitutional: Appearance: Normal appearance. HENT: Head: Normocephalic and atraumatic. Eyes: General: No scleral icterus. Conjunctiva/sclera: Conjunctivae normal. Pupils: Pupils are equal, round, and reactive to light. Neck: Musculoskeletal: No neck rigidity or muscular tenderness. Cardiovascular: Rate and Rhythm: Normal rate and regular rhythm. Heart sounds: Normal heart sounds. Pulmonary: Effort: Pulmonary effort is normal. Breath sounds: Normal breath sounds. Abdominal: General: Abdomen is flat. Palpations: Abdomen is soft. Tenderness: There is no abdominal tenderness. Musculoskeletal: Right lower leg: No edema. Left lower leg: No edema. Skin: General: Skin is warm and dry. Neurological: Mental Status: She is alert. Comments: The patient displayed many different symptoms over the course of several hours including but not limited to not being able to move her face, not being able to speak, and losing consciousness and not be able to be woken up. She also complained of L leg weakness and pain, as well as amnesiaand confusion. All symptoms were observed to spontaneously resolve prior to discharge. Psychiatric: Behavior: Behavior is not aggressive or combative. Thought Content: Thought content does not include suicidal ideation. ED Course: - Patient seen under the supervision of the attending physician. - Medications, allergies, and past medical history reviewed. Labs Reviewed POCT GLUCOSE No orders to display Procedures: EEG 21 channel digitized electroencephalogram INTERPRETATION: This EEG is normal during the awake state as well as during the activation procedure of photic stimulation. No epileptiform correlates are observed with episodes of non-responsiveness. CLINICAL CORRELATION: Normal awake only EEG. The clinical events did not correspond to seizure activity. No epileptiform features observed. Assessment and Plan: 33 y.o. female with a history of hemicrania continua and a recent admission to neuro for seizure-like episodes presents with headache and similar seizure-like syncopal episodes. A few episodes were observed here while she was connected to monitors; her vital signs did not change during these episodes. We reached out to neurology to ensure that we completed the full work up for potential physiologic causes of her symptoms including seizures. They agreed that EEG was the final piece of the work-up. We obtained an awake only EEG which did not show any signs of seizure activity. The patient completely recovered to normal baseline prior to discharge and expressed a desire to gohome and follow up with her neurologist at the headache clinic. Assessment: 1. Psychogenic syncope Plan: - EEG done - will follow up with neurologist at headache clinic Saturday Return precautions were verbally discussed and written in discharge instructions. The patient and/or family expressed understanding that they could come back to the ED at any time and agreed to the follow-up plan. Asael Black MD Resident 10/10/19 2201 Associated attestation - Marcela Adames MD - 10/11/2019 11:32 AM EDT ED ATTENDING ATTESTATION NOTE The patient was seen in conjunction with Dr. Black, the resident physician. I have independentlyperformed the kimball portions of the history and physical exam. I have reviewed the nursing notes, vital signs, and all diagnostic studies personally including labs, imaging studies and EKGs. I have discussed the details of the case with the resident and agree with the assessment and plan as describedin the resident note unless noted otherwise. Brief Summary: This is a 33-year-old female who presents with several episodes of unresponsiveness.The patient was recently admitted to this hospital on 09/27 for similar symptoms. Her evaluation from a neurologic perspective at that time was reassuring and her symptoms did not map to any specific neurologic dysfunction. She was noted to have a slightly enlarging cranial venous malformation, however this is inconsistent with her symptoms. She had also previously been evaluated for IICH which was not present on her most recent evaluation and inconsistent with her symptoms. The patient had several episodes in the emergency department with no outright seizure activity. On my evaluation the patient was calm and interactive with no focal deficits. Her cardiopulmonary exam was reassuring. An EEG was performed in the emergency department that was negative for any seizure activity. Discussed with the patient that the symptoms did not have any clear neurogenic or cardiogenic origin. Particularly in the setting of increased stress at home recommended evaluation by the psychiatricservice with concern for conversion disorder. The patient declined psychiatric evaluation and elected to be discharged home. She was independently ambulatory at time of discharge. Final Assessment: Intermittent episodes of altered mental status. Did this case involve critical care? No documented in this encounter Plan of [...] Procedure Name Priority Date/Time Associated Diagnosis Comments ZEEG AWAKE, ASLEEP, DROWSY STAT 10/10/2019 8:01 PM EDT POCT GLUCOSE Routine 10/10/2019 5:21 PM EDT documented in this encounter Results * EEG awake, asleep, drowsy, routine (10/10/2019 8:01 PM EDT) Narrative Cheko Heath MD - 10/10/2019 8:01 PM EDT Eun Rader MD ? 10/10/2019 ??8:44 PM [facility] Department of Neurology Inpatient EEG Report Name of the Patient: ??Kimberli Bales Date of : ?1985 Date of Service: ?10/10/2019 Referring physician: ?Dr. Sofia M.D. BRIEF HISTORY: Kimberli Bales is a 33 y.o. patient with possible seizures. MEDICATIONS: No current facility-administered medications for this encounter. ?? Current Outpatient Medications Medication Sig Dispense Refill ? ? LORazepam (Ativan) 1 mg Tablet Take 1 tablet by mouth every 6 hours as needed for Anxiety. 15 tablet 0 ? ? indomethacin (INDOCIN) 50 mg Capsule TAKE 1 CAPSULE BY MOUTH THREE TIMES DAILY WITH MEALS 90 capsule 3 ? ? galcanezumab-gnlm (Emgality Pen) 120 mg/mL Pen Injector Inject 120 mg subcutaneously every 30 days. 1 mL 11 ? ? citalopram (CeleXA) 40 mg Tablet Take 1 tablet by mouth once daily 90 tablet 3 ? ? lisinopriL (Prinivil;Zestril) 20 mg Tablet Take 1 tablet by mouth daily. 90 tablet 3 ? ? ELDERBERRY FRUIT ORAL Take 1 gummy by mouth as needed (Cold season only). ?? METHODS: A 21 channel digitized electroencephalogram was performed in the [facility] Clinical Neurophysiology Laboratory. The 10/20 international system of electrode placement was used and bipolar and referential electrode montages were recorded. ??In addition to EEG the patient was monitored for EKG and lateral/vertical eye movements. Video was recorded during the session. The duration of the recording was ~60 minutes. ADMINISTRATIVE SUPPORT ASSOC'S REPORT: Performed by: SB Patient was not sleep deprived. Sleep was not attained. Photic stimulation was performed. Hyperventilation was not performed. Effort was was not adequate. Movement and other artifact was not significant. Comments:NA ELECTROENCEPHALOGRAPHER'S REPORT: Background During the awake state with the eyes closed the background consisted of a normal amplitude, 10 Hz posterior reactive rhythm that attenuated appropriately with eye opening. Beta activity was distributed diffusely with an anterior predominance. There was a normal anterior-posterior voltage gradient. With eye opening the background activity changed to a low voltage mixture of alpha, beta, and occasional theta range frequencies. There were no significant asymmetries of background activity noted. Sleep Sleep was not captured. Hyperventilation Hyperventilation was not performed. Photic Stimulation Photic stimulation using a step-gil increase in photic frequency varying from 1-21 Hertz resulted in bilateral driving responses at multiple frequencies but no appearance of abnormal activity. Abnormal EEG Activity None EKG EKG revealed normal sinus rhythm. PRIOR EEG: No previous EEG reports were available. INTERPRETATION: This EEG is normal during the [...] to increase the sensitivity of detecting abnormalities. Eun Rader MD Epilepsy Fellow #[id number] 10/10/2019 8:32 PM. Marcela Adames MD NEUROLOGY ORDERABLE S * POCT Glucose (10/10/2019 5:21 PM EDT) Glucose, POC 108 65 - 199 mg/dL [facility] Comment: Supplemental ranges: <140 mg/dL before meals <180 mg/dL all other times of the day Blood specimen (specimen) 10/10/2019 5:21 PM EDT 10/10/2019 5:21 PM EDT Emergency Dept POINT OF CARE TEST ORDERABLES [facility] [place] [address] documented in this encounter Visit Diagnoses Diagnosis Psychogenic syncope Other somatoform disorders documented in this encounter Active and Recently Administered Medications Care Teams Machining Technician Relationship Specialty Start Date End Date Amada Carson MD [address] [place] [address] PCP - General Family Medicine 08/28/18 01/21/20 documented as of this encounter
--- OUTSIDE RECORDS SUMMARY | 2024-01-13 18:57 | XMS_ITS | Encounter Summary ---
Author Organization [facility] [place] [address] Care Team Providers Care Dewaxer Name Role Phone Amada Carson MD Primary Care Provider [phone] Reason for Referral * Chiropractic (Routine) - Closed Specialty Diagnoses / Procedures Referred By Contac t Referred To Contact Diagnoses Back pain, unspecified back location, unspecified back pain laterality, unspecified chronicity Amada Carson MD [address] [place] [address] Chiropractic, [address] [address] Referral ID Status Reason Start Date Expiration Date V isits Requested Visits Authorized [id number] Closed Consult, Test & Treat 09/01/2019 02/28/2020 12 12 Encounter Details Date Type Department Care Team ([facility] Contact Info) Description 09/01/2019 Telephone Primary Care at [facility] [address] [place] [address] Amada Carson MD [address] [place] [address] Social History Tobacco Use Types Packs/Day Years [...] * Telephone Encounter - Martha Glasgow - 09/01/2019 10:59 AM EDT ----- Message from Ruth Gastelum RN sent at 08/31/2019 1:47 PM EDT ----- Regarding: FW: Non-Urgent Medical Question Contact: ----- Message ----- From: Kimberli Bales Sent: 08/31/2019 1:39 PM EDT To: [facility] Primary Care Nurse Subject: RE: Non-Urgent Medical Question I am going to [facility] on if you could send over a referral that would be helpful for my insurance. Thanks! -C documented in this encounter Plan of Treatment Scheduled Referrals Name Type Priority Associated Diagnoses Orde r Schedule Referral to Chiropractic Outpatient Referral Routine Back pain, unspecified back location, unspecified back pain laterality, unspecified chronicity Ordered: 09/01/2019 documented as of this encounter Visit Diagnoses Diagnosis Back pain, unspecified back location, unspecified back pain laterality, unspecified chronicity documented in this encounter Care Teams Dewaxer Relationship Specialty Start Date End Date Amada Carson MD [address] [place] [address] PCP - General Family Medicine 08/28/18 01/21/20 documented as of this encounter
--- OUTSIDE RECORDS SUMMARY | 2024-01-13 18:57 | XMS_ITS | Encounter Summary ---
Author Organization [facility] [place] [address] Care Team Providers Care Construction Sales Manager Name Role Phone Amada Carson MD Primary Care Provider [phone] Reason for Visit * Reason Onset Date Comments Medication Refill 03/18/2019 Encounter Details Date Type Department Care Team (Late st Contact Info) Description 03/18/2019 Refill Neurology at [address] [address] Ashwini Campuzano, PLASTER PATTERNMAKER [facility] [place] [address] Social History Tobacco Use Types Packs/Day Years [...] on filedocumented in this encounter Care Teams Construction Sales Manager Relationship Specialty Start Date End Date Amada Carson MD [address] [place] [address] PCP - General Family Medicine 08/28/18 01/21/20 documented as of this encounter
--- OUTSIDE RECORDS SUMMARY | 2024-01-13 18:57 | XMS_ITS | Encounter Summary ---
Author Organization [facility] [address] Care Team Providers Care Card Sorter Name Role Phone Amada Carson MD Primary Care Provider [phone] [phone] Encounter Details Date Type Department Care Team (Late st Contact Info) Description 01/28/2019 Telephone Neurology at [address] [address] Ashwini Campuzano, CORPORATE LEGAL ASSISTANT [facility] [place] [address] Social History Tobacco Use Types Packs/Day Years [...] Telephone Encounter - Mary Sewell RN - 01/28/2019 1:16 PM EST Call made to RADHA Porras in Dr. Carson's office at [facility]. Chiquita provides this information: Amitriptyline was prescribed for Kimberli Bales on 01/01/12 10 mg a day and this was discontinuedon 01/29/12 due to unresponsiveness to therapy. Topiramate was not prescribed by Dr. Carson. Blood pressure medications were not prescribed by Dr. Carson. January 29, 2012 Headache continued. Kimberli was provided with a prescription for acetazolamide 125 mg twice a day. It was recommended Kimberli see a neurologist at that time but she declined. Headache was improving. Feb 2012- Kimberli was seen in [facility]. Her headache had resolved. Acetazolamide was prescribed for 1 year. July 2012- Still taking acetazolamide bid. Headache is back, moderate to severe. Ellyn saw a neurologist at [facility] and had an LP. Acetazolamide was increased from 125 mg bid to 125 mg tid. Kimberli has not been seen by Dr. Carson for headaches since. * Telephone Encounter - Mary Sewell RN - 01/28/2019 1:16 PM EST ----- Message from Ashwini Campuzano APRN sent at 01/28/2019 11:09 AM EST ----- Can you call patient's primary care Jessenia Cormier, nurse's name is Chiquita, associated with Nancy Javed regarding previous headache medication trials specifically amitriptyline and topirmate. Need dates of trial. See also if she was ever on a BP med. Her BP is elevated today likely from indomethacin. documented in this encounter Plan of Treatment Not on file documented as of this encounter Visit Diagnoses Not on filedocumented in this encounter Care Teams Card Sorter Relationship Specialty Start Date End Date Amada Carson MD [address] [place] [address] PCP - General Family Medicine 08/28/18 01/21/20 documented as of this encounter
--- OUTSIDE RECORDS SUMMARY | 2024-01-13 18:57 | XMS_ITS | Encounter Summary ---
Author Organization [facility] Address [place] [address] Care Team Providers Care Radiology Clerk Name Role Phone Amada Carson MD Primary Care Provider [phone] Encounter Details Date Type Department Care Team (Late st Contact Info) Description 07/15/2019 Orders Only Sleep Medicine at [facility] Rocael Hernandez[address] [phone] Matthew Virk MD [facility] [address] [place] [address] Obstructive sleep apnea Social History Tobacco Use [...] as of this encounter Visit Diagnoses Diagnosis Obstructive sleep apnea Obstructive sleep apnea (adult) (pediatric) documented in this encounter Care Teams Radiology Clerk Relationship Specialty Start Date End Date Amada Carson MD [address] [facility] [place] [address] PCP - General Family Medicine 08/28/18 01/21/20 documented as of this encounter
--- OUTSIDE RECORDS SUMMARY | 2024-01-13 18:57 | XMS_ITS | Encounter Summary ---
Author Organization [facility] Address [facility] [place] [address] Care Team Providers Care Blood Bank Laboratory Technologist Name Role Phone Amada Carson MD Primary Care Provider [phone] Encounter Details Date Type Department Care Team (Late st Contact Info) Description 09/28/2019 12:05 PM EDT - 09/28/2019 8:21 PM EDT Emergency Emergency Services at [address] [id number] Leila Iraheta MD [facility] [address] [place] [address] Somnolence Discharge Disposition: Another HCF/Not Defined Social History Tobacco Use Types Packs/Day Years [...] Sign Reading Time Taken Comments Blood Pressure 123/89 09/28/2019 6:27 PM EDT Pulse 74 09/28/2019 6:27 PM EDT Temperature 36.8 ??C (98.2 ??F) 09/28/2019 12:00 PM E DT Respiratory Rate 16 09/28/2019 6:27 PM EDT Oxygen Saturation 95% 09/28/2019 6:27 PM EDT Inhaled Oxygen Concentration - - [...] once daily 90 tablet 3 05/18/2019 11/12/2019 LORazepam (Ativan) 1 mg Tablet Take 1 tablet by mouth every 6 hours as needed for Anxiety. 15 tablet 1 03/30/2019 10/08/2019 lisinopriL (Prinivil;Zestril) 20 mg TabletIndications:Es sential hypertension Take 1 tablet by mouth daily. 90 tablet 3 03/30/2019 01/21/2020 documented as of this encounter ED Notes * Leila Iraheta MD - 09/28/2019 8:09 PM EDT No chief complaint on file. History obtained from the patient, her and the medical record. History limited as patient does not recall all events. 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 reports patient awoke with a headache this morning, which is not unusual for her. While walking back from the showing, she began complaining of left foot pain which then seemed to involve the left leg. While inthe car to the drive home, patient became extremely somnolent and minimally verbal. On arrival to the ER, patient was taken out of the car and placed in a wheelchair, and taken directly into her room. Patient was able to help pivot from the car to the wheelchair, and [facility], but her eyes remain closed, and she spoke only minimally in a very faint voice, and often did not answer questions. denies any recent illnesses, fever or travel. Allergies Allergen Reactions ??? Oxycodone-Acetaminophen Shortness [...] file Gets together: Not on file Attends roman cath[employer] service: Not on file Active member of [...] Concern Not Asked Social History Narrative ??? Not [...] negative cultures. If sx develop check Micro, SHIPPING ORDER CLERK or stone. ??? Environmental and seasonal allergies [...] JEFF performed by Genevieve Walsh MD at [facility] ??? PRO STABISMUS SURG,TWO HORIZ MUSCLE Right 02/01/2014 STRABISMUS SURGERY, TWO HORIZONTAL MUSCLES performed by Genevieve Walsh MD at [facility] ??? PRO STRABISMUS SURG,PLACE ADJUST SUTURE Right 12/31/2013 STRABISMUS SURGERY, PLACEMENT OF ADJUSTABLE SUTURES IN CONJUNCTION W/ ANOTHER SURGERY performed by Genevieve Walsh MD at [facility] ??? PRO STRABISMUS SURG,SCAR EXTRAOCUL MUSC Right 02/01/2014 STRABISMUS SURGERY WITH SCARRING OF EXTRAOCULAR MUSCLES IN CONJUNCTION W/ ANOTHER SURGERY performedby Genevieve Walsh MD at [facility] ??? SINUS SURGERY ??? TUBAL LIGATION Bilateral 04/24/2011 [facility]; Sherrell Schmidt MD ??? WISDOM TOOTH EXTRACTION N/A 07/01/2002 [facility]; AILEEN RIVERA, LAUREN Review of systems limited due to patient's altered mental status. Review of Systems Constitutional: Negative for fever. HENT: Negative for congestion. Respiratory: Negative for cough. Cardiovascular: Negative for chest pain. Gastrointestinal: Negative for abdominal pain. Musculoskeletal: Positive for arthralgias (Left foot pain.). Negative for back pain. Neurological: Positive for headaches. Negative for weakness and numbness. Altered mental status, somnolence Psychiatric/Behavioral: Positive for confusion. Physical Exam General: Eyes closed, appears asleep. HEENT: Normocephalic. Atraumatic. PERRL. Eyes rolled up when I pull back her eyelids. Patient does not cooperate for extraocular movement exam. Sclera clear without injection or icterus. Conjunctiva pink. Nasal septum midline, nares clear. External auditory canals and TMs normal bilaterally. Moist mucous membranes. Neck: Supple. Nontender. Lungs: Normal respiratory effort. Clear to auscultation bilaterally. Heart: Regular rate and rhythm. No murmurs or rubs. Abdomen: Obese. Soft, nontender, nondistended. No bruit. Back: No abnormality noted. Extremities: Palpation of left heel and midfoot elicits pain. There is no visible abnormality. No cyanosis or edema. Equal radial and dorsalis pedis pulses bilaterally. Neuro: Somnolent, answers some questions in a very faint whisper, other she does not answer. When Iask if there is any chance she could be , patient repeats No babies over and over again. Follows simple commands. Faint speech, difficult to assess if fully clear, but no immediate abnormality noted. Minimally moves all limbs, no weakness noted. Negative Babinski bilaterally. No clonus. Skin: Normal color. Good turgor. Dry. No rashes. Psych: Unable to assess due to patient's somnolence. Procedures MDM EKG: Normal sinus rhythm at a rate of 83, normal axis, normal NE, QRS and QTc intervals, no ST segment elevation. CBC and electrolytes show no concerning abnormalities. is negative. Urine tox screen is positive for marijuana only. Patient reevaluated, appears slightly more awake, though still extremely lethargic, speaking in a barely audible voice, though attempts to answer questions and does follow commands. at the bedside, reports patient complained of a headache this morning. Patient confirms that she continues to have a headache. Left foot reevaluated, patient continues to be tender over the left heel and midfoot. Head CT and left foot x-ray ordered. Morphine 2 mg IV ordered for pain. Left foot x-ray shows no acute abnormalities. Head CT shows: Interval development of a small new focus of high attenuation material within the deep white matter of the left frontal lobe. This may represent hemorrhage or mineralization. Differential diagnosis includes cavernous malformation and aneurysm This lesion was visible on the MRI of 2018 but since it appears larger on the current CT, repeat MRI (with MRA) is recommended. Unexpected finding ?? Extensive opacification of the maxillary sinuses including left maxillary air-fluid level consistent with an inflammatory or infectious process MRI called an attempt to obtain a study, no answer. Case discussed with Dr. Gu, neurology at [facility]: Agree the patient should have further evaluationwith an MRI. If this cannot be obtained at [facility], patient needs transfer to [facility]. Recommends loadingwith Keppra IV. Keppra 1000 mg IV ordered. I have been notified that MRI has left and I am unable to obtain the study. Patient reevaluated, more awake and appears at baseline. Patient reports she feels much better. Need for Keppra IV and evaluation at [facility] explained. Patient is in agreement with this plan. Patient requests another dose of morphine for headache. 2 mg IV ordered. [facility] called again, case discussed with Dr. Maharaj, neurology, who accepts the patient in transferto the neurology service. Patient consented for transfer to [facility]. Patient transferred to [facility] without incident. 1. Somnolence Condition: Stable Disposition: Transfer to [facility], Dr. Maharaj accepting Leila Iraheta MD 09/28/192045 * Betsey Wilson RN - 09/28/2019 6:49 PM EDT Report to next shift. * Betsey Wilson RN - 09/28/2019 6:24 PM EDT PT watching TV, chatty, reports feeling normal. Call eubanks within reach. * Betsey Wilson RN - 09/28/2019 5:19 PM EDT PT to BR via wheel, talking, making jokes. PT back in bed, at bedside. * Betsey Wilson RN - 09/28/2019 4:22 PM EDT PT siting with her , whispers to talk , alert. * Betsey Wilson RN - 09/28/2019 2:49 PM EDT PT up to bedside commode, able to stand, pull pants up and down. PT follows commands, States she isconfused, stutters. * Betsey Wilson RN - 09/28/2019 12:55 PM EDT PT appears more awake reports driving in a car, left heel pain which traveled up her leg, then she got dizzy, I could hear things but could not answer. PT is answering in full sentences. PT is crying, reports she cannot remember her children's names. * Betsey Wilson RN - 09/28/2019 12:33 PM EDT PT reports at a whisper she is resting. On monitor, call eubanks within reach. * Betsey Wilson RN - 09/28/2019 12:18 PM EDT PT in bed on monitor, eyes closed, responds to touch, bed rails up x 2, PT answers questions at a whisper, unable to attain history. documented in this encounter Miscellaneous Notes * ED Triage - Betsey Wilson RN - 09/28/2019 11:54 AM EDT PT brought in from car by wheel chair, PT's eyes closed, PT answering in whispers. MD at bedside. PT mental status altered. documented in this encounter Plan of Treatment [...] Name Priority Date/Time Associated Diagnosis Comments RAPID COVID-19 PCR ([facility]) STAT 09/28/2019 5:26 PM EDT XR FOOT MIN 3 VIEWS LEFT STAT 09/28/2019 3:[address] HEAD WO CONTRAST (GENERIC) STAT 09/28/2019 3:16 PM EDT RAPID DRUG SCREEN, URINE STAT 09/28/2019 2:32 PM EDT RAPID DRUG SCREEN W/O CONFIRMATION, URINE STAT 09/28/2019 2:32 PM EDT HEMOGRAM STAT 09/28/2019 12:09 PM EDT DIFFERENTIAL, AUTOMATED STAT 09/28/2019 12:09 PM EDT HC CBC,PLT & AUTO DIFF STAT 0 12:09 PM EDT HC CHORIONIC GONADOTROPINS, SERUM STAT 09/28/2019 12:09 PM EDT COMPREHENSIVE METABOLIC PANEL STAT 09/28/2019 12:09 PM EDT EKG 12-LEAD STAT 09/28/2019 12:07 PM EDT documented in this encounter Results * COVID-19 PCR (09/28/2019 5:26 PM EDT) SARS-CoV-2 RNA (Rapid) Not Detected Not Detected [facility] Comment: This result should be [...] using the Simplexa COVID-19 Direct Assay by [employer] as authorized by the FDA issued Emergency [...] Department of Pathology and Laboratory Medicine at [facility], certified under the Clinical Laboratory Improvement [...] Information for Healthcare Professionals (https://www.cdc.gov/coronavirus/2019-ncov/hcp/index.html). 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 Leila Cerundolo MD IMG DX ORDERABLES * (ABNORMAL) CT Head wo Contrast (Generic) (09/28/2019 3:16 PM EDT) Anatomical Region Laterality Modality Head Computed Tomogra phy Impressions 09/28/2019 3:28 PM EDT Interval development of a small new focus of high attenuation material within the deep white matter of the left frontal lobe. This may represent hemorrhage or mineralization. Differential diagnosis includes cavernous malformation and aneurysm This lesion was visible on the MRI of 2018 but since it appears larger on the current CT, repeat MRI (with MRA) is recommended. Unexpected finding Extensive opacification of the maxillary sinuses including left maxillary air-fluid level consistent with an inflammatory or infectious process Thank you for letting us participate in the care of this patient. For questions regarding this report, please contact the number below. ? Narrative 09/28/2019 3:28 PM EDT EXAMINATION: CT HEAD WO CONTRAST (GENERIC) CLINICAL HISTORY: Altered mental status TECHNIQUE: Axial sections through the head were obtained without intravenous contrast. COMPARISON: CT head of 11/07/2017 FINDINGS: There is a 6 mm focus of high attenuation material within the left frontal lobe. It appears to be located within the deep white matter. The highest attenuation neck and measure within it is 88 Hounsfield units. There is no surrounding edema or mass effect. This lesion is not clearly evident on the prior CT it can be seen as a site of susceptibility-related signal loss on the MRI of 11/15/2017 No other intra-axial lesion is present. Ventricles are of normal size and configuration. There is no extra-axial collection. There is opacification of the imaged portions of the maxillary sinuses with an air-fluid level in the left. Mild mucosal thickening is present within ethmoid air cells. The mastoids are clear. The orbits are of normal appearance. Resulting Agency Comment Unexpected Finding Leila Iraheta MD IMG CT ORDERABLES * (ABNORMAL) Rapid Drug Screen w/o Confirmation, Urine (09/28/2019 2:32 PM EDT) JENN[facility] Marijuana Metabolites Screen Presumptive Pos(A) None Detected [facility] Comment: The marijuana metabolites screen detects the THC Metabolite (71-[id number]-8-carboxy-delta 9-THC) at concentrations >50 ng/mL. Qualitative Drug screens are reported as ? None Detected? or ? Presumptive Positive? as the results are not routinely confirmed by highly-specific methods. As with any screen occasional false positive results from cross-reacting substances can occur. Not for Medico-Legal Purposes. Phencyclidine Screen, Urine None Detected None Detected [facility] Comment: The phencyclidine screen detects phencyclidine at concentrations >25 ng/mL. Qualitative Drug screens are reported as ? None Detected? or ? Presumptive Positive? as the results are not routinely confirmed by highly-specific methods. As with any screen occasional false positive results from cross-reacting substances can occur. Not for Medico-Legal Purposes. JENNIFER Cocaine Metabolites Screen None Detected None Detected [facility] Comment: The cocaine metabolites screen detects benzoylecgonine (Cocaine Metabolite) at concentrations >150 ng/mL. Qualitative Drug screens are reported as ? None Detected? or ? Presumptive Positive? as the results are not routinely confirmed by highly-specific methods. As with any screen occasional false positive results from cross-reacting substances can occur. Not for Medico-Legal Purposes. Methamphetamines Screen, Urine None Detected None Detected [facility] Comment: The methamphetamine screen detects d-methamphetamine at concentrations >500 ng/mL. Qualitative Drug screens are reported as ? None Detected? or ? Presumptive Positive? as the results are not routinely confirmed by highly-specific methods. As with any screen occasional false positive results from cross-reacting substances can occur. Not for Medico-Legal Purposes. JENNIFER Opiates Screen None Detected None Detected [facility] Comment: The opiates screen detects opiates at a concentration >100 ng/mL. Qualitative Drug screens are reported as ? None Detected? or ? Presumptive Positive? as the results are not routinely confirmed by highly-specific methods. As with any screen occasional false positive results from cross-reacting substances can occur. Not for Medico-Legal Purposes. JENNIFER Amphetamines Screen None Detected None Detected [facility] Comment: The amphetamine screen detects d-amphetamine at concentrations >500 ng/mL. Qualitative Drug screens are reported as ? None Detected? or ? Presumptive Positive? as the results are not routinely confirmed by highly-specific methods. As with any screen occasional false positive results from cross-reacting substances can occur. Not for Medico-Legal Purposes. JENNIFER Benzodiazepines Screen None Detected None Detected [facility] Comment: The benzodiazepines screen detects benzodiazepines at concentrations >150 ng/mL. Not all benzodiazepines cross-react equally with antibody used in this screen. Due to the low dosage of clonazepam, false negatives may be obtained due to low concentration of clonazepam metabolites. Qualitative Drug screens are reported as ? None Detected? or ? Presumptive Positive? as the results are not routinely confirmed by highly-specific methods. As with any screen occasional false positive results from cross-reacting substances can occur. Not for Medico-Legal Purposes. JENN[facility]ER Tricyclics Screen None Detected None Detected [facility] Comment: The tricyclics screen detects tricyclic antidepressants at concentrations >300 ng/mL. Not all tricyclics cross-react equally with the antibody used in this screen. Qualitative Drug screens are reported as ? None Detected? or ? Presumptive Positive? as the results are not routinely confirmed by highly-specific methods. As with any screen occasional false positive results from cross-reacting substances can occur. Not for Medico-Legal Purposes. JENNIFER Methadone Screen None Detected None Detected [facility] Comment: The methadone screen detects methadone at concentrations >200 ng/mL. Qualitative Drug screens are reported as ? None Detected? or ? Presumptive Positive? as the results are not routinely confirmed by highly-specific methods. As with any screen occasional false positive results from cross-reacting substances can occur. Not for Medico-Legal Purposes. JENNIFER Barbiturates Screen None Detected None Detected [facility] Comment: The barbiturates screen detects barbiturate at concentrations >200 ng/mL. Note: Not all barbiturates cross-react equally with antibody used in this screen. Qualitative Drug screens are reported as ? None Detected? or ? Presumptive Positive? as the results are not routinely confirmed by highly-specific methods. As with any screen occasional false positive results from cross-reacting substances can occur. Not for Medico-Legal Purposes. JENNIFER Oxycodone Srceen None Detected None Detected [facility] Comment: The oxycodone screen detects oxycodone at concentrations >100 ng/mL and oxymorphone >250 ng/ml. Qualitative Drug screens are reported as ? None Detected? or ? Presumptive Positive? as the results are not routinely confirmed by highly-specific methods. As with any screen occasional false positive results from cross-reacting substances can occur. Not for Medico-Legal Purposes. Propoxyphene Screen, Urine None Detected None Detected [facility] Comment: The propoxyphene screen detects propoxyphene at concentrations >300 ng/mL. Qualitative Drug screens are reported as ? None Detected? or ? Presumptive Positive? as the results are not routinely confirmed by highly-specific methods. As with any screen occasional false positive results from cross-reacting substances can occur. Not for Medico-Legal Purposes. JENNIFER Buprenorphine Screen None Detected None Detected [facility] Comment: The buprenorphine screen detects buprenorphine at concentrations >10 ng/mL. Qualitative Drug screens are reported as ? None Detected? or ? Presumptive Positive? as the results are not routinely confirmed by highly-specific methods. As with any screen occasional false positive results from cross-reacting substances can occur. Not for Medico-Legal Purposes. JENN[facility]ER Adulterants Screen None Detected None Detected [facility] Urine specimen (specimen) 09/28/2019 2:32 PM EDT 09/28/2019 2:40 PM EDT Narrative Resulting Agency Comment Spec In Lab / APD Leila Iraheta MD URINE ORDERABLES [facility] [address] [place] [address] * Rapid Drug Screen, Urine (JENNIFER Request) (09/28/2019 2:32 PM EDT) JENNIFER Conf Requested No [facility] JENNIFER Requested See Comment [facility] Comment:Refer to Rapid Drug Screen w/o Confirmation, Urine for results. Urine specimen (specimen) 09/28/2019 2:32 PM EDT 09/28/2019 2:40 PM EDT Narrative Resulting Agency Comment Spec In Lab / APD Leila Iraheta MD URINE ORDERABLES [facility] [address] [place] [address] * (ABNORMAL) Differential, Automated (09/28/2019 12:09 PM EDT) Neutrophil % 63.4 % [facility] Neutrophil Absolute 6.35(H) 1.70 - 6.10 x10(3)/mc L [facility] Lymph % 26.9 % [facility] Lymphocytes Abs 2.7 0.9 - 3.2 x10(3)/mc L [facility] Monocyte % 6.7 % [facility] Monocyte Abs 0.7 0.3 - 0.9 x10(3)/mc L [facility] Eos % 2.3 % [facility] Eosinophils Abs 0.2 0.0 - 0.4 x10(3)/mc L [facility] Basophil % 0.3 % [facility] Baso Absolute 0.0 0.0 - 0.1 x10(3)/mc L [facility] Immature Gran % 0.40 % [facility] Comment: Immature granulocytes(IG's)percentage and absolute count will include metamyelocytes, myelocytes, and promyelocytes. Blood smears from CBCs yielding IG's will be scanned manually for concordance. If this scan disagrees with the automated IG or if promyelocytes are noted, a manual differential will be performed. Immature Gran Absolute 0.04 0.00 - 0.04 x10(3)/mc L [facility] Blood specimen (specimen) 09/28/2019 12:09 PM EDT 09/28/2019 12:33 PM EDT Narrative Resulting Agency Comment Spec In Lab / APD Leila Iraheta MD HEMATOLOGY ORDERABLE S Performing Organization Address City/[facility]/ZIP Co de Phone Number LABORATORY [address] [place] [address] * (ABNORMAL) Hemogram (09/28/2019 12:09 PM EDT) White Blood Cell 10.0(H) 4.0 - 9.5 x10(3)/mc L [facility] Red Blood Cell 4.32 4.00 - 5.21 x10(6)/mc L [facility] Hemoglobin 12.8 11.7 - 15.5 gm/dL [facility] Hematocrit 38.2 35.7 - 45.8 % [facility] Mean Cell Volume 88.4 82.6 - 94.4 fL [facility] Mean Cell Hemoglobin 29.6 27.1 - 32.0 pg [facility] Mean Cell Hemoglobin Concentration 33.5 31.7 - 35.0 gm/dL [facility] Platelet 299 145 - 357 x10(3)/mc L [facility] RDW Standard Deviation 41.4 37.0 - 46.0 fL [facility] RDW coefficient of variation 12.7 11.5 - 14.1 % [facility] Mean Platelet Volume 9.7 7.6 - 12.9 fL [facility] Blood specimen (specimen) 09/28/2019 12:09 PM EDT 09/28/2019 12:33 PM EDT Narrative Resulting Agency Comment Spec In Lab / APD Leila Iraheta MD HEMATOLOGY ORDERABLE S [facility] [address] [place] [address] * Beta HCG, quantitative (09/28/2019 12:09 PM EDT) Beta Human Chorionic Gonadotropin, Quantitative <1 mlU/ML [facility] Blood specimen (specimen) 09/28/2019 12:09 PM EDT 09/28/2019 12:33 PM EDT Narrative Resulting Agency Comment Spec In Lab / APD Leila Iraheta MD CHEMISTRY ORDERABLES [facility] [address] [place] [address] * (ABNORMAL) Comprehensive metabolic panel (non-fasting) (09/28/2019 12:09 PM EDT) Glucose 125 65 - 199 mg/dL [facility] Comment:Diabetes: >=200 mg/d L plus symptoms Blood Urea Nitrogen 10 8 - 18 mg/dL [facility] Creatinine 0.65(L) 0.70 - 1.20 mg/dL [facility] Sodium 136 135 - 145 mmol/L LAB[facility] Potassium 4.2 3.5 - 5.0 mmol/L [facility] Comment: Please note: ??Patients with WBC >100,000 may have falsely elevated Potassium levels. ??For accurate Potassium quantification in these patients send serum separator tube (gold top) for subsequent determinations. ??Contact the Clinical Chemistry Laboratory if there are any questions. Chloride 100 98 - 107 mmol/L [facility] Carbon Dioxide 26 22 - 31 mmol/L [facility] Anion Gap 10 5 - 15 mmol/L [facility] Calcium 9.4 8.5 - 10.5 mg/dL [facility] Protein, Total 6.9 6.1 - 8.0 gm/dL [facility] Albumin 4.2 3.2 - 5.2 gm/dL LAB[facility] Aspartate Aminotransferase 15 0 - 30 unit/L [facility] Alanine Aminotransferase 25 0 - 30 unit/L [facility] Alkaline Phosphatase 65 35 - 105 unit/L LAB[facility] Bilirubin, Total [...] of body mass or the acutely ill. [email or web address] eGFR 133 >=60 mL/min/1. 71 m?? [facility] Comment: The eGFR was calculated using the CKD-EPI equation. As with all creatinine based estimates of kidney function, eGFR values calculated with the CKD-EPI equation are not accurate in patients with acute kidney failure, extremes of body mass or the acutely ill. [email or web address] Blood specimen (specimen) 09/28/2019 12:09 PM EDT 09/28/2019 12:33 PM EDT Narrative Resulting Agency Comment Spec In Lab / APD Leila Iraheta MD CHEMISTRY ORDERABLES Performing Organization Address [facility] Co de Phone Number [facility] [address] [place] [address] * EKG 12 Lead (09/28/2019 12:07 PM EDT) Ventricular rate 83 BPM MUSE SYSTEM Atrial Rate 83 BPM MUSE SYSTEM P-R Interval 134 ms MUSE SYSTEM QRS Duration 88 ms MUSE SYSTEM Q-T Interval 352 ms MUSE SYSTEM QTC Calculated (Bezet) 413 ms MUSE SYSTEM Calculated P [place] 24 degrees MUSE SYSTEM Calculated R [place] 26 degrees MUSE SYSTEM Calculated T [place] 23 degrees MUSE SYSTEM INTERPRETATION Normal sinus rhythm Normal ECG When compared with ECG of 15-NOV-2017 12:27, No significant change was found Confirmed by Desiree Almonte ([id number]) on 09/28/2019 12:28:14 PM MUSE SYSTEM 09/28/2019 12:0 7 PM EDT 09/28/2019 12:28 PM EDT Leila Iraheta MD ECG ORDERABLES Performing Organization Address [facility] Co de Phone Number MUSE SYSTEM documented in this encounter Visit Diagnoses Diagnosis Somnolence Other alteration of consciousness documented in this encounter Administered Medications Inactive Administered Medications - up to 3 most recent administrations Medication Order MAR Action Action Date Dose Rate Site levETIRAcetam (KEPPRA) injection 1,000 mg 1,000 mg, Intravenous, ONCE, 1 dose, On 09/28/19 at 1710, STAT Given 09/28/2019 5:47 PM EDT 1,000 mg morphine 2 mg/mL injection syringe 2 mg 2 mg, Intravenous, ONCE, 1 dose, On Sat09/28/19 at 1452, HIGH ALERT MEDICATION, STAT Given 09/28/2019 3:04 PM EDT 2 mg morphine 2 mg/mL injection syringe 2 mg 2 mg, Intravenous, ONCE, 1 dose, On Sat09/28/19 at 1715, HIGH ALERT MEDICATION, STAT Given 09/28/2019 5:40 PM EDT 2 mg sodium chloride 0.9 % (flush) flush 3 mL 3 mL, Intravenous, EVERY 1 MIN PRN, Starting on Sat09/28/19 at 1202, Until Sat09/28/19 at 2048, for flushes pre / post IV fluids or blood draws as needed, Routine sodium chloride 0.9% infusion 150 mL/hr, Intravenous, CONTINUOUS, Starting on Sat09/28/19 at 1716, Until Sat09/28/19 at 204 New Bag 09/28/2019 6:16 PM EDT 150 mL/hr 150 mL/hr documented in this encounter Active and Recently Administered Medications Times are shown in EDT. Scheduled Medication Order 09/26/2019 09/27/2019 09/28/2019 levETIRAcetam (KEPPRA) injection 1,000 mg (COMPLETED) 1,000 mg, Intravenous, ONCE, 1 dose, On Sat09/28/19 at 1710, STAT 1747 (Given - Provid er: Betsey Wilson RN) morphine 2 mg/mL injection syringe 2 mg (COMPLETED) 2 mg, Intravenous, ONCE, 1 dose, On Sat09/28/19 at 1452, HIGH ALERT MEDICATION, STAT 1504 (Given - Provid er: Roger Gandhi RN) morphine 2 mg/mL injection syringe 2 mg (COMPLETED) 2 mg, Intravenous, ONCE, 1 dose, On Sat09/28/19 at 1715, HIGH ALERT MEDICATION, STAT 1740 (Given - Provid er: Betsey Wilson, RN) Continuous Medication Order 09/26/2019 09/27/2019 09/28/2019 sodium chloride 0.9% infusion 150 mL/hr, Intravenous, CONTINUOUS, Starting on Sat09/28/19 at 1716, Until Sat09/28/19 at 2048 1816 (New Bag - Prov ider: Betsey Wilson RN) PRN Medication Order 09/26/2019 09/27/2019 09/28/2019 sodium chloride 0.9 % (flush) flush 3 mL 3 mL, Intravenous, EVERY 1 MIN PRN, Starting on Sat09/28/19 at 1202, Until Sat09/28/19 at 2048, for flushes pre / post IV fluids or blood draws as needed, Routine documented in this encounter Care Teams Blood Bank Laboratory Technologist Relationship Specialty Start Date End Date Amada Carson MD [address] [place] [address] PCP - General Family Medicine 08/28/18 01/21/20 documented as of this encounter
--- OUTSIDE RECORDS SUMMARY | 2024-01-13 18:57 | XMS_ITS | Encounter Summary ---
Author Organization [facility] [place] [address] Care Team Providers Care Air Conditioning Specialist Name Role Phone Amada Carson MD Primary Care Provider [phone] Encounter Details Date Type Department Care Team (Late st Contact Info) Description 10/06/2018 5:30 PM EDT Notes Only [place] [id number] Social History Tobacco Use Types Packs/Day Years [...] as of this encounter Progress Notes * Therese Pak - 10/06/2018 5:30 PM EDT Patient attended the intro to bariatric surgery on 10/06/18 documented in this encounter Plan of Treatment Not on file documented as of this encounter Visit Diagnoses Not on filedocumented in this encounter Care Teams Air Conditioning Specialist Relationship Specialty Start Date End Date Amada Carson MD [address] [place] [address] PCP - General Family Medicine 08/28/18 01/21/20 documented as of this encounter
--- OUTSIDE RECORDS SUMMARY | 2024-01-13 18:57 | XMS_ITS | Encounter Summary ---
Author Organization [facility] Address [facility] [place] [address] Care Team Providers Care Credit Review Officer Name Role Phone Amada Carson MD Primary Care Provider [phone] Reason for Visit * Reason Comments Obesity Bariatric Consult * Consultation (Routine) - Specialty Diagnoses / Procedures Referred By Contac t Referred To Contact Surgical Specialties Diagnoses Obesity, unspecified classification, unspecified obesity type, unspecified whether serious comorbidity present bariatric surgery consult Amada Carson MD [address] [facility] [place] [address] [facility] [address] [place] [address] Referral ID Status Reason Start Date Expiration Date V isits Requested Visits Authorized [id number] Consult, Test & Treat 04/30/2019 04/29/2020 12 12 Encounter Details Date Type Department Care Team (Latest Contact Info) Description 06/30/2019 9:00 AM EDT TH Visit (TeleHealth) Surgical Specialties at [facility] [address] [place] [address] Molly Tang MD [facility] [place] [address] Morbid obesity with BMI of 50.0-59.9, adult Social History Tobacco Use Types Packs/Day Years [...] of this encounter Progress Notes * Em Saldivar CMA - 06/30/2019 9:00 AM EDT Patient consented to a telehealth visit in lieu of office visit, due to public health emergency. Patient was informed prior to this telehealth visit, that it will be conducted similarly to an office visit, and that it may be billed similarly to an in-clinic office visit. Patient's VIDEO telehealth visit was confirmed for 06/30/2019 at 9:00 am. Patient has active [employer] account, and confirmed receipt of video telehealth instructions. Tobacco use, allergies, medications, and history were reviewed and intake completed via telephone on 06/25/2019 by Em Saldivar CMA. * Molly Tang MD - 06/30/2019 9:00 AM EDT Telehealth Video This visit was via telehealth video due to social distancing restrictions associated with [employer]. [facility] Bariatric Surgery Evaluation Reason for consultation: Kimberli is a 33 y.o. year-old female referred by Amada Carson MDfor consultation for consideration of surgical treatment of obesity. She was previously evaluated by me in 2019 for right upper quadrant pain, thought to be due to costochondritis. Her preferred procedure: LSG, less invasive Prior bariatric surgery evaluations: None History of present illness: She states that she has struggled with obesity for many years. The patient has tried multiple weight loss measures without sustainable success. Factors that she identifies as contributing to her obesity include: genetics, and overconsumption. She is quite active and hikes daily, gardens. She seeks b ariatric surgery for health reasons. She attended an intro meeting in December. Other motivating factors for seeking surgery for bariatric surgery: She has two kids, aged 8 and 9,and wants to be able to keep up, lead hikes Her goals of surgery: Feel better healthier, treatment for IIH She denies binge eating, night eating disorder, self-induced vomiting, laxative or diuretic use or excessive exercise to lose weight. 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 Hypertension ??? Hemicrania continua ??? Anxiety ??? Idiopathic intracranial hypertension ??? Neurological deficit present ??? Menorrhagia ??? Exotropia Overview Note: Long-standing, s/p strabismus surgery XT OD but can alternate, no diplopia ??? Morbid obesity Past Surgical History: Procedure Laterality Date ??? SECTION N/A 03/25/2010 ??? SECTION N/A 04/24/2011 [facility]; Sherrell Schmidt MD ??? DILATION AND CURETTAGE OF UTERUS N/A 09/16/2015 Menorrhagia; [facility]; Sherrell Schmidt MD ??? HERNIA REPAIR ??? PRO STABISMUS SURG,ONE HORIZ MUSCLE Bilateral 12/31/2013 STRABISMUS SURGERY, ONE HORIZONTAL MUSCLE, JEFF performed by Genevieve Walsh MD at [facility] ??? PRO STABISMUS SURG,TWO HORIZ MUSCLE Right 02/01/2014 STRABISMUS SURGERY, TWO HORIZONTAL MUSCLES performed by Genevieve Walsh MD at [facility] ??? PRO STRABISMUS SURG,PLACE ADJUST SUTURE Right 12/31/2013 STRABISMUS SURGERY, PLACEMENT OF ADJUSTABLE SUTURES IN CONJUNCTION W/ ANOTHER SURGERY performed by Genevieve Walsh MD at [facility] ??? PRO STRABISMUS SURG,SCAR EXTRAOCUL MUSC Right 02/01/2014 STRABISMUS SURGERY WITH SCARRING OF EXTRAOCULAR MUSCLES IN CONJUNCTION W/ ANOTHER SURGERY performedby Genevieve Walsh MD at [facility] ??? SINUS SURGERY ??? TUBAL LIGATION Bilateral 04/24/2011 [facility]; Sherrell Schmidt MD ??? WISDOM TOOTH EXTRACTION N/A 07/01/2002 [facility]; AILEEN RIVERA, DMD Hernia repair was lower midline Current Outpatient Medications: ??? indomethacin (INDOCIN) 50 mg Capsule, TAKE 1 CAPSULE BY MOUTH THREE TIMES DAILY WITH MEALS, Disp: 90 capsule, Rfl: 0 ??? citalopram (CeleXA) 40 mg Tablet, Take 1 tablet by mouth once daily, Disp: 90 tablet, Rfl: 3 ??? LORazepam (Ativan) 1 mg Tablet, Take 1 tablet by mouth every 6 hours as needed for Anxiety., Disp: 15 tablet, Rfl: 1 ??? lisinopriL (Prinivil;Zestril) 20 mg Tablet, Take 1 tablet by mouth daily., Disp: 90 tablet, Rfl: 3 ??? ELDERBERRY FRUIT ORAL, Take 1 gummy [...] Years: 2.00 Pack years: 0.50 Types: Cigarettes Last attempt to quit: 10/17/2017 Years since quittin.7 ??? Smokeless tobacco: Never Used Substance and [...] file Gets together: Not on file Attends oriental orthodox service: Not on file Active member of [...] Social History Narrative ??? Not on file Functional status: Is ambulation limited most or all of the time? no Tolerance: she can walk a mile and climb a flight of stairs Karnofsky performance status scale: [x] 90- able to carry on normal activity, minor signs or symptoms of disease [] 80- normal activity with effort, some signs or symptoms of disease [] 70- cares for self, unable to carry on normal activity or to do active work ADLs: able to carry on without difficulty- [x] independent [] partially dependent [] totally dependent Use of assistive devices: denies Dyspnea with routine activity: [x] denies [] walking up inclines [] any exertion Anesthesia history (per patient): denies untoward events Lactose/ Food/ Wheat/ Latex allergy/sensitivity: denies control plan: TL Diagnostic screenin. Lab data - needs closer to surgery date 2. Psychological evaluation pending MBSAQ Preoperative Risk Assessment (negative if left blank): General [] Diabetes mellitus [] Non-insulin [] Insulin [] Current smoker within 1 year Functional health status [x] Independent [] Partially dependent [] Totally dependent [] Unknown Pulmonary [] COPD (Severe) [] Oxygen Dependent [] History of pulmonary embolism ? Obstructive sleep apnea requiring CPAP/BiPAP Gastrointestinal [] GERD requiring medication within 30 days prior to surgery Musculoskeletal [] The patient's ambulation is limited most or all of the time Cardiac [] History of myocardial infarction [] Previous PCI/PTCA [] Previous cardiac surgery [x] Hypertension requiring medication # of anti-hypertensive meds: 1 [] Hyperlipidemia requiring meds Vascular [] Vein thrombosis requiring therapy [] Venous stasis [] IVC filter IVC filter timing [] placed in anticipation of procedure [] IVC filter preexisting [] Unknown Renal [] Currently requiring or on dialysis [] Renal insufficiency Nutritional/Immune/Oncologyy/Other [] Steroid/Immunosuppressant use for chronic condition [] Therapeutic anticoagulation [] Previous obesity surgery/foregut surgery [] Previous organ transplant Bariatric Surgery VTE Risk Assessment Score Patients will be considered to be at high risk if they have one or more of the following: [] Previous VTE or BMI >/= 60 kg/m2 Or two or more of the following: [] Age > 50 [x] BMI >/= 50 kg/m2 [] Male sex [] Recent tobacco use ? Obstructive sleep apnea [] Venous insufficiency/ varicose veins [] OCP or HRT within 30 days of surgery Total: extended VTE prophylaxis depends on results of sleep study indicated post bariatric surgery discharge Patients are advised to stop HRT and OCP/ DMPA 1 month prior to surgery and hold for 1 month postop, and use control during this time if appropriate. All patients who take coumadin/ anti-10Ainhibitors preoperatively are referred to the Thrombosis Clinic for recommendations. Review of Systems (negative if left blank): Constitutional: [] fatigue EENT [] wears corrective lens [] vision or hearing problems Neurologic: [] paresthesias [] dizziness [] chronic headaches Cardiovascular: [] history of chest pain, squeezing, pressure [] syncope [] murmur [] palpitations Respiratory: [] shortness of breath [] wheezing [x] symptoms of sleep apnea GI: [] GERD [] dysphagia [] early satiety [] abdominal pain [] hernia [] prior CT scan abdomen [] ED visit for abdominal pain [] nausea/vomiting [] blood in stool [] chronic diarrhea [] frequent constipation : [] incontinence [] hematuria [] history of renal calculi SUPERVISOR MOLD CONSTRUCTION: [] LMP: [] menorrhagia [] menopause Musculoskeletal [] myalgia/arthralgias: Extremities: [] Varicose veins [] telangiectasias [] edema Skin: [] skinfold rashes [] tattoos Endocrine: [] PCOS [] thyroid disease Heme/Lymph: [] excessive bruising [] lymphadenopathy [x] transfusion history - after c sxn [] blooddonor in past year [] iron deficiency history Allergic/ Immun: [] use of steroid/ immunosuppressant for chronic condition [] Latex, food or medication allergies: as per allergy list Psychiatric [] depression [] anxiety [] panic attacks [] history of suicide attempt [] symptoms of bipolar disorder [] addictions- gambling, excessive shopping, prolonged Internet use [] History of abuse [] psychiatric hospitalization [] rehab admission Other: [] smoker within 1 year of surgery [] current smoker [] anticoagulation Physical exam: Deferred on video visit Assessment/ Plan: 23 year old female with a long history of morbid obesity, current BMI 51 with obesity related comorbidities of IIH, and hypertension, likely sleep apnea. She understands that her weight places her atincreased risk for health problems and a shortened lifespan. We discussed that there are a variety of options for weight loss, however bariatric surgery has been shown to be more effective for kennel keeper sustained weight loss than medical therapy, with associated improvements in obesity related comorbidities and all-cause mortality. She is interested in proceeding. We briefly reviewed the process of qualifying for weight loss surgery at the [facility] bariatric surgeryprogram and the surgeries offered including laparoscopic arthur and y gastric bypass and laparoscopicsleeve gastrectomy. We had an introductory discussion about the advantages and disadvantages for each procedure. She is most interested in a sleeve gastrectomy. She previously attended an intro meeting in December. She knows that I am happy to answer any questions she might have going through the process. Pending: - All program requirements - will have coordinator call her to determine what she has left for her requirements to help facilitate her moving forward - Final meeting with surgeon to confirm procedure, physical exam and obtain consent. - Educational class - CBC and CMP within 6 months of surgery, per [facility] accredited bariatric center guidelines, to bedone at preop followup - Ongoing weight loss encouraged documented in this encounter Plan of Treatment Scheduled Referrals Name Type Priority Associated Diagnoses Orde r Schedule Referral to General Surgery Outpatient Referral Routine Obesity, unspecified classification, unspecified obesity type, unspecified whether serious comorbidity present Ordered: 04/30/2019 documented as of this encounter Visit Diagnoses Diagnosis Morbid obesity with BMI of 50.0-59.9, adult Morbid obesity documented in this encounter Care Teams Credit Review Officer Relationship Specialty Start Date End Date Amada Carson MD [address] [place] [address] PCP - General Family Medicine 08/28/18 01/21/20 documented as of this encounter
--- OUTSIDE RECORDS SUMMARY | 2024-01-13 18:57 | XMS_ITS | Encounter Summary ---
[place] [address] Care Team Providers Care Hod Carrier Name Role Phone Amada Carson MD Primary Care Provider [phone] Encounter Details Date Type Department Care Team (Late st Contact Info) Description 01/28/2019 10:30 AM EST Office Visit Neurology at [address] [id number] Ashwini Campuzano, OUTPATIENT INTERVIEWING CLERK [facility] [place] [address] Hemicrania continua; High risk medication use Social History Tobacco [...] Sign Reading Time Taken Comments Blood Pressure 158/102 01/28/2019 10:58 AM EST Pulse 78 01/28/2019 10:15 AM EST Temperature - - Respiratory Rate - - Oxygen Saturation - - Inhaled Oxygen Concentration - - Weight 135.2 kg (298 lb) 01/28/2019 10:15 AM EST Height 167.6 cm (5' 6) 01/28/2019 10:15 AM EST reported Body Mass Index 48.1 01/28/2019 10:15 AM EST documented in this encounter Progress Notes * Ashwini Campuzano, JOSUE - 01/28/2019 10:30 AM EST Neurology Headache Clinic Follow-up Patient Name: Kimberli Bales Patient ID: Kimberli Bales is a 33 y.o. female seen at [facility] previously by Dr. Mercado, Headache Fellow. She has a history of Chronic Migraine, Hemicrania continua, strabismus s/p bilateral lateral rectus recessions and repeat right lateral rectus recession. She carried a diagnosis of IIH butshe never had a documented elevation in CSF opening pressure of >25cm of water. Last opening pressure in fact was 4cm H20. Last Visit 07/22/18: indomethacin was increased and pantoprazole was increased to 40mg bid. Interval History: insurance made her stop the pantoprazole secondary to no diagnosis of GI issues. If late taking the indomethacin or forgets to take the headache will return. If misses a dose or delays the dose even by just an hour headache with return with a throbbing sensation that is severe, she feels generally unwell, and it may take up to a day to feel better. Not completely headache free but significantly better with indomethacin ROS: denies SOB, denies CP, denies dizziness, denies abdominal pain, denies blurred vision Medications: Current Outpatient Medications Medication Sig Dispense Refill ??? LORazepam (ATIVAN) 1 mg Tablet TAKE [...] 1 tablet by mouth 2 times daily. 60 tablet 5 ??? citalopram (CELEXA) 40 mg Tablet Take 40 mg by mouth daily. No current facility-administered medications for this visit. [...] [] Doxycycline [] Lidocaine patch (Lidoderm) [] [place] [] Memantine (Namenda) [] Montelukast (Singulair) [] [...] [] Acupuncture [] Acupressure [] Biofeedback [] Manager Internet [] Cognitive Behavioral Therapy [] Craniosacral therapy [...] Substances: [] Acetaminophen/Codeine (Tylenol #3) [] Acetaminophen/Hydrocodone ([place]/Vicodin) [] Acetaminophen/Oxycodone (Percocet) [] Butorphanol (Ketamine/Stadol) [] Carisoprodol (Soma) [] Fentanyl [] Hydrocodone [] Hydromorphone (Dilaudid) [x] Marijuana [] Morphine (MS Contin) [x] Oxycodone [x] Tramadol (Ultram) [] Zolpidem (Ambien) Physical Exam: Most Recent Vitals: 01/28/19 1015 BP: (!) 155/102 Pulse: 78 Constitutional: Patient of apparent stated age, no [...] the sulcus. Well seen on the 3-D [id number] images without evidence of flow related signal. [...] process. Assessment and Plan: Hemicrania Continua: She has not had blood work in over 1 year. I will check CMP and H & H. She is not on any gastric protection which is concerning. She will have blood work every three months. If unable to continuewith indomethacin secondary to side effects or alterations in blood work then will consider a CGRP MAB. Her blood pressure is elevated at today's visit and I would like to add an antihypertensive to the regime but would like to have the blood work back before prescribing. REBEKAH Chang APRN [facility] Neu[facility], [facility] documented in this encounter Plan of Treatment Not on file documented as of this encounter Procedures Procedure Name Priority Date/Time Associated Diagnosis Comments HC HEMOGLOBIN, BLOOD Routine 01/28/2019 12:01 PM EST High risk medication use COMPREHENSIVE METABOLIC PANEL Routine 01/28/2019 12:01 PM EST High risk medication use documented in this encounter Results * Hemoglobin and Hematocrit, blood (01/28/2019 12:01 PM EST) Hemoglobin 12.7 11.7 - 15.5 gm/dL [facility] Hematocrit 40.0 35.7 - 45.8 % [facility] Blood specimen (specimen) 01/28/2019 12:01 PM EST 01/28/2019 12:39 PM EST Narrative Resulting Agency Comment Spec In Lab Ashwini Campuzano APRN HEMATOLOGY ORDERAB LES [facility] [place] [id number] * (ABNORMAL) Comprehensive metabolic panel (non-fasting) (01/28/2019 12:01 PM EST) Glucose 94 65 - 199 mg/dL [facility] Comment:Diabetes: >=200 mg/d L plus symptoms Blood Urea Nitrogen 14 8 - 18 mg/dL [facility] Creatinine 0.66(L) 0.70 - 1.20 mg/dL [facility] Sodium 138 135 - 145 mmol/L [facility] Potassium 4.7 3.5 - 5.0 mmol/L [facility] Comment: Please note: ??Patients with WBC >100,000 may have falsely elevated Potassium levels. ??For accurate Potassium quantification in these patients send serum separator tube (gold top) for subsequent determinations. ??Contact the Clinical Chemistry Laboratory if there are any questions. Chloride 100 98 - 107 mmol/L [facility] Carbon Dioxide 29 22 - 31 mmol/L [facility] Anion Gap 9 5 - 15 mmol/L [facility] Calcium 9.4 8.5 - 10.5 mg/dL [facility] Protein, Total 7.8 6.1 - 8.0 gm/dL [facility] Albumin 4.5 3.2 - 5.2 gm/dL [facility] Aspartate Aminotransferase 14 0 - 30 unit/L [facility] Alanine Aminotransferase 22 0 - 30 unit/L [facility] Alkaline Phosphatase 72 35 - 105 unit/L [facility] Bilirubin, Total 0.4 0.2 - 1.3 mg/dL [facility] Est Glomerular Filtration Rate 114 >=60 mL/min/1. 73 m?? [facility] Comment: The eGFR was calculated using the CKD-EPI equation. As with all creatinine based estimates of kidney function, eGFR values calculated with the CKD-EPI equation are not accurate in patients with acute kidney failure, extremes of body mass or the acutely ill. [email or web address] eGFR 133 >=60 mL/min/1. 73 m?? [facility] Comment: The eGFR was calculated using the CKD-EPI equation. As with all creatinine based estimates of kidney function, eGFR values calculated with the CKD-EPI equation are not accurate in patients with acute kidney failure, extremes of body mass or the acutely ill. [email or web address] Blood specimen (specimen) 01/28/2019 12:01 PM EST 01/28/2019 6:43 PM EST Narrative Resulting Agency Comment Spec In Lab Ashwini M Campuzano OUTPATIENT INTERVIEWING CLERK CHEMISTRY ORDERABL ES [facility] [place] [address] documented in this encounter Visit Diagnoses Diagnosis Hemicrania continua High risk medication use Encounter for long-term (current) use of other medications documented in this encounter Care Teams Hod Carrier Relationship Specialty Start Date End Date Amada Carson MD [address] [place] [address] PCP - General Family Medicine 08/28/18 01/21/20 documented as of this encounter
--- OUTSIDE RECORDS SUMMARY | 2024-01-13 18:57 | XMS_ITS | Encounter Summary ---
Author Organization [facility]ly [facility] [place] [address] Care Team Providers Care Tallow Maker Name Role Phone Amada Carson MD Primary Care Provider [phone] Encounter Details Date Type Department Care Team (Late st Contact Info) Description 09/24/2019 Telephone Weight and Wellness at [facility] [address] [place] [id number] Ese Velasco Social History Tobacco Use Types Packs/Day Years [...] on filedocumented in this encounter Care Teams Tallow Maker Relationship Specialty Start Date End Date Amada Carson MD [address] [place] [address] PCP - General Family Medicine 08/28/18 01/21/20 documented as of this encounter
--- OUTSIDE RECORDS SUMMARY | 2024-01-13 18:57 | XMS_ITS | Encounter Summary ---
Author Organization [facility] [place] [address] Care Team Providers Care Timber Treating Tank Operator Name Role Phone Amada Carson MD Primary Care Provider [phone] Reason for Referral * Consultation (Routine) - Closed Specialty Diagnoses / Procedures Referred By Contjaqueline t Referred To Contact Dermatology Diagnoses Nevus of neck Amada Carson MD [address] [facility] [place] [address] [facility] Dermatology [address] [place] [address] Referral ID Status Reason Start Date Expiration Date V isits Requested Visits Authorized [id number] Closed Consult, Test & Treat 12/04/2018 12/04/2019 12 12 Encounter Details Date Type Department Care Team (Late st Contact Info) Description 12/04/2018 Telephone Primary Care at [facility] [address] [place] [id number] Amada Carson MD [address] [facility] [place], [place] [id number] Social History Tobacco Use Types Packs/Day Years [...] encounter Miscellaneous Notes * Telephone Encounter - Sharon White - 12/04/2018 2:09 PM EDT Patient is looking for a referral to Dermatology for a mole on her neck. She said that the mole hasgrown and is starting to turn red. documented in this encounter Plan of Treatment Scheduled Referrals Name Type Priority Associated Diagnoses Order Schedule Referral to Dermatology Outpatient Referral Routine Nevus of neck Ordered: 12/04/2018 documented as of this encounter Visit Diagnoses Diagnosis Nevus of neck Benign neoplasm of scalp and skin of neck documented in this encounter Care Teams Timber Treating Tank Operator Relationship Specialty Start Date End Date Amada Carson MD [address] [place] [address] PCP - General Family Medicine 08/28/18 01/21/20 documented as of this encounter
--- OUTSIDE RECORDS SUMMARY | 2024-01-13 18:57 | XMS_ITS | Encounter Summary ---
Author Organization [facility] [place] [address] Care Team Providers Care Etl Informatica Developer Name Role Phone Amada Carson MD Primary Care Provider [phone] Reason for Referral * Consultation (Routine) - Specialty Diagnoses / Procedures Referred By Contac t Referred To Contact Surgical Specialties Diagnoses Obesity, unspecified classification, unspecified obesity type, unspecified whether serious comorbidity present bariatric surgery consult Amada Carson MD [address] [facility] [place] [address] [facility] Surg Specialties [address] [place] [address] Referral ID Status Reason Start Date Expiration Date V isits Requested Visits Authorized [id number] Consult, Test & Treat 04/30/2019 04/29/2020 12 12 Encounter Details Date Type Department Care Team (Late st Contact Info) Description 04/30/2019 Telephone Primary Care at [facility] [address] [place] [address] Amada Carson MD [address] [facility] [place] [address] Social History Tobacco Use Types Packs/Day Years [...] * Telephone Encounter - Martha Glasgow - 04/30/2019 9:06 AM EDT ----- Message from Ruth Gastelum RN sent at 04/28/2019 1:47 PM EDT ----- Regarding: FW: Appointment Follow-Up Question Contact: Can you prep this referral for SB and send it? ruth ----- Message ----- From: Kimberli Bales Sent: 04/28/2019 8:32 AM EDT To: [facility] Primary Care Nurse Subject: RE: Appointment Follow-Up Question Jessenia Well I guess it beats the alternate options. Let's move forward Thanks Kimberli documented in this encounter Plan of Treatment Scheduled Referrals Name Type Priority Associated Diagnoses Orde r Schedule Referral to General Surgery Outpatient Referral Routine Obesity, unspecified classification, unspecified obesity type, unspecified whether serious comorbidity present Ordered: 04/30/2019 documented as of this encounter Visit Diagnoses Diagnosis Obesity, unspecified classification, unspecified obesity type, unspecified whether serious comorbidity present documented in this encounter Care Teams Etl Informatica Developer Relationship Specialty Start Date End Date Amada Carson MD [address] [place] [address] PCP - General Family Medicine 08/28/18 01/21/20 documented as of this encounter
--- OUTSIDE RECORDS SUMMARY | 2024-01-13 18:57 | XMS_ITS | Encounter Summary ---
Author Organization [place] [address] Care Team Providers Care Plant Chief Name Role Phone Radha Villagran APRN Primary Care Provider Reason for Visit * Consultation (Routine) - Specialty Diagnoses / Procedures Referred By Stacy harper Referred To Contact Behavioral Health / Weight and Wellness Diagnoses Obesity, unspecified obesity Procedures patient is enrolled in the bariatric surgery program she needs 6 months of diet counseling within 2 years of surgery / 5% weight loss - need both diet and psych counsling per isnurance guidelines Traci Genao APRN [facility] [address] [facility] [address] [place] [address] Referral ID Status Reason Start Date Expiration Date V isits Requested Visits Authorized [id number] Consult, Test & Treat 08/18/2019 08/17/2020 1 1 Encounter Details Date Type Department Care Team (Latest Contact Info) Description 09/17/2019 11:00 AM EDT TH Visit (TeleHealth) Weight and Wellness at [facility] [address] [place] [address] Velia Gibson MD [facility] [address] [facility] [facility] [address] Class 3 severe obesity due to excess calories with serious comorbidity and body mass index (BMI) of 50.0 to 59.9 in adult (Primary Dx) Social History Tobacco Use Types Packs/Day Years [...] - Inhaled Oxygen Concentration - - Weight 143.8 kg (317 lb) 09/17/2019 12:46 PM EDT home wt Height 167.6 cm (5' 6) 09/17/2019 12:46 PM EDT Body Mass Index 51.17 09/17/2019 12:46 PM EDT documented in this encounter Progress Notes * Velia Gibson MD - 09/17/2019 11:00 AM EDT [facility] [address] [facility] [address] TELEHEALTH VISIT Patient Name: Kimberli Bales Date of : 1985 Age: 33 y.o. Dear Amada Carson MD Thank you for referring Kimberli B[facility] to the [facility] for a consultation for obesity management. I reviewed past records including notes, labs, and other evaluation and discussed them with the patient. Questionnaire done this AM received and reviewed AFTER visit. SUMMARY OF VISIT AND ASSESSMENT: Kimberli Bales presents to the [facility] for a consultative visit regarding obesity management. The patient has WHO Class 3 very severe obesity with BMI of 51. In addition, Kimberli Bales has co-morbidities associated with obesity including: HTN, anxiety,? Of indiopathic intracranial HTN (per neuro note, some question about this dx), recently dx'd ELMA., chronic headaches. ?? Obesity is caused by hormonal disorder of fat regulation and insulin is the major hormone that drives weight gain. Obesity is a multifactorial disease, and in this case, the following factors could be potential contributors: ?? Genetics and Epigenetics : she reports no obesity in family ?? Insulin resistance - ?? Timing of meals: - ?? Eating too much during day: occasionalGrazing, eating biggest meal at night + ?? Too much sugar and too much highly refined carbohydrates (processed foods)--consumption of foodsthat are high in sugar and processed that can lead to metabolic/hormonal changes that can increase body fat by causing insulin resistance. - ?? Low intake of fat fighting foods (fruits, vegetables, legumes, nuts, seeds, quality protein) - ?? Medications: pt is taking citalopram; sometimes assoc with wt gain, she does not recall gaining wt after starting this medication. ?? Sleep Disturbance: Recently started treatment for ELMA ?? Circadian Pattern - ?? Disordered Eating - ?? Inactivity - ?? Stress and too much cortisol: the prolonged cortisol release associated with chronic stress is strongly correlated with the development of obesity + Following were dicussed: ?? Obesity is a chronic disease requiring terminal press operator management. ?? Obesity is associated with increased risk of adverse health and psychosocial consequences, metabolic disease as well as higher mortality. ?? We reviewed the overall goals for obesity management, which include improving the patient's health, quality of life, and body weight/composition ?? Discussed nature of obesity being a complex disease and heterogeneous. This leads to wide patient to patient variability of treatment. To match the therapy to the patient requires trial and error. Video visit, no BRANDI done. Plan: We discussed and agreed upon the pillars of obesity treatment: Discussed that 5-10% weight loss can improve patient's co-morbi ties; Goal weight loss 32 pounds over 3-6 months = 10%. Goals ??? decrease artificial sweeteners To 2 servings per day (crystal lite or propel) ??? tracking food intake Already doing this (09/17/2019). Don't add in extra calories for calories you burn with exercise. ?? Pharmocotherapy: If possible medications that promote weight gain should be avoided and medications that are weight-neutral or promote weight loss should be considered. Patient does NOT think she gained wt on citalopram. Sertraline and fluoxetine are usually weight neutral. ?? Discussed anti-obesity meds and sent her info via Qik. The following care pathway has been decided in discussion with the patient: [] Healthy Lifestyle Program: The [place] Preventive Services Task Force (USPSTF) recommends intensive behavioral therapy to treat obesity. Patient is interested in our Healthy Lifestyles Program. We are a CDC approved center as a Diabetes Prevention Program, a year long program to assist with behavior change. Meets once a week for 16 weeks, then 1 meeting a month for 12 months. The rest of the care team will assess in eligibility for HLP and final care pathway will be decidedat next provider visit. [] Obesity Medicine Pathway [x] Bariatric Surgery Pathway ?? She is unsure about this but wants to start preparation. Insulin resistance: no Blood pressure: HTN treated. CrCl cannot be calculated (Patient's most recent lab result is older than the maximum 30 days allowed.). Liver function: Normal . Lipid risk assessment: The ASCVD Risk score (Renoamarilis MAYNARD Jr., et al., 2013) failed to calculate for the following reasons: The 2013 ASCVD risk score is only valid for ages 40 to 79 Mental Health: Anxiety treated with citalopram. Reports no depression. It is important that patient continues to be followed by PCP for routine care and health maintenance. CHIEF COMPLAINT: Management of excess weight HISTORY OF PRESENT ILLNESS: Kimberli Bales is a 33 y.o. female with obesity who presents for intensive behavior modifications of obesity and co-morbid conditions at [facility]. Reason for appt: Thinking about bariatric surgery, not sure it it is right for her. (saw Dr. Tang in ). Weight History: Always been big. A few years ago lost 80 lbs. Then crazy stuff in her life, put back on a lot of it. Very active. Has a good lifestyle. 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 Not a lot of sugars. 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 I should not bethis chubby. [facility] Initial Responses 09/17/2019 URICA - Readiness Score 11.33 WEL-SF Total Scores 70 PROMIS 6B Scores 58.7 PHQ-2 SubScore 0 (Brief screen negative) GAD2 Subscore 0 (Brief screen negative) PROMIS 10 Physical Scores 50.8 PROMIS 10 Mental Scores 67.6 IPAQ-SF Scores 3 Total REAP-S Scores 33 TFEQ - Uncontrolled Eating (UE) 37.03 TFEQ-Cognitive Restraint (CR) 66.66 TFEQ-Emotional Eating 27.77 Food Insecurity Score 2 [place] Category I Result 0 [place] Category II Result 0 [place] Category III 1 (Positive) [place] Sleep Apnea Total 1 (Low Risk) Schooling Some college or technical school Importance of making a change 8 Confidence to make change 8 Most weighed 323 Age most weighed 33 Times lost 10 lbs or more 11 times of more Most weight lost in one attempt 80 Lost weight how? Switched to food with less calories, Exercised, Drank a lot of water, Ate more fruits, vegetables, salads, Ate less sugar, candy, sweets, Changed eating habits (didn't eat late at night, ate several small meals a day), Ate less junk food or fast food Wearing tracking devices helped improve health Yes Worried food would run out before we got money to buy more Never true Food didnt last; no money to get more Never true Woman with baby weighing > 9lbs at No Sister of brother with diabetes No Have parent with diabetes No Younger than 65 yrs and little or no exercise in a day No DPRP Score: 0 Kimberli Bales has had gradual weight gain due to the top 3 reasons they identify: Stress. Lost 80 lbs but regained. Was using madhu product, it was a pill.. 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 Not a healthy way to do it. Importance: 8 confidence: 8 Previous anti obesity medications tried: The Madhu pill above. BIG WHY: Started getting high blood pressure, I will not get any younger. Goal weight: being honest, I am not uncomfortable. I am pretty happy, I would rather not take a lotmore medication. Bolded are positive Nutrition: Thinks has healthy diet. Appetite: normal. Eats when hungry. Usually does not eat after 6 Eating out of: Hunger/ habit / boredom/stress/emotions. Cooks out of stress and emotions, but don't want to eat it.. Never bored. Satiety: can feel full Eating patterns: Mindless eating, binge eating, grazing: sometimes, not as rule,notes she often does not eat breakfast. skipping of meals, Eating after supper: Occ, not as a rule. getting out of bed to eat Tracks her intake on lose it haily. Says she budgets herself 2100 calories; usually gets around 1700. 24 hour Diet Recall: Breakfast: Snack: 9:30 protein shake Lunch: 12:30: Tuna on lettuce. Snack: Dinner: 5:30 Grilled chicken with blueberry green salad, homemake poppyseed dressing. Snacks: Drinks: Iced coffee with skim, Water with crytal lite, 8 glasses water, a propel. Alcohol :in average drink week: occ wine. 0 to 1 per week. BARIATRIC QUESTIONS? 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 Movement: Average week: Swimming 1-2 hrs 7 days per week this time of year. Walking daily, fishing.Camping, active. Is ambulation limited most or all of the time? no Tolerance: she can climb a flight of stairs REVIEW OF SYSTEMS: Bolded responses below are answered positive CONSTITUTIONAL: fatigue OCC THERAPIST/Neurological: migraine. Other headache. seizures, stroke HEENT: Changes in vision, history of glaucoma, regular eye exams CV: history of WA, or any heart disease murmur, palpitations, current chest pain, atrial fibrillation orthopnea, PND, edema, syncope Hypertension hyperlipidemia RESP: Asthma, Shortness of breath at rest, cough, COPD, or wheezing. CORDERO. symptoms of sleep apnea. treatment for sleep apnea GI: GERD, Fatty liver, nausea,vomiting, diarrhea, constipation, abdominal pain abdominal surgeries : Renal disease, kidney stones, stress incontinence. MEAL TEMPERER: regular menses. Use of hormones. No had ablation. Contraception: tuabl ligation ENDO: Prediabetic, Diabetes, Thyroid disease. PCOS (infertility, irregular menstrual cycles/hirsutism/acne), gestational diabetes Musculoskeletal: Myalgias, Arthralgias, Arthritis, Gout Integumentary: Edema. Skin breakdown/ulcers. Intertrigo. Psychiatric: Eating Disorder: Binge Eating, Anorexia, Bulimia, Anxiety, depression, Bipolar DO, panic attacks, history of suicide attempt, addictions (gambling, excessive shopping, prolonged internetuse), psychiatric hospitalization, history of alcohol abuse, history of recreational drug use : occ Heme/Onc: Cancer, DVT/PE in past, excessive bruising or bleeding. Anemia. Anticoagulation Allergic/ Immun: use of steroid/ immunosuppressant for chronic condition Latex, food or medication allergies: as per allergy list Other: smoker within 1 year. Current smoker, never smoker, quit smoking MEDS: see med list ALL: reviewed. I did not ask all of the bariatric surgery questions today. PAST MEDICAL HISTORY Medical and Surgical History: Reviewed Surgery: C sec, hernia repair, tubal ligation and others. Family History: Reviewed family members with obesity: No one super small or overly large. Mat gm had dm Social History: grew up in: [place] [place]. Work: [employer], working form home now In household: , Not overwt. He is suportive. katheryn 6 and 7. Youngest had some serious health issues when younger. Worked with dietitican. Older katheryn, not overwt but her MD was worried about CAVAZOS so saw dietitian. VITAL SIGNS: weight from home:Ht 167.6 cm (5' 6) Wt (!) 143.8 kg (317 lb) Comment: home wt LMP103/21/2013 BMI 51.17 kg/m?? Last 5 weight values: Wt Readings from Last 5 Encounters: 08/17/19 (!) 144.7 kg (319 lb) 04/01/19 (!) 145.1 kg (319 lb 12.8 oz) 03/11/19 131.5 kg (290 lb) 01/28/19 135.2 kg (298 lb) 09/30/18 (!) 145.2 kg (320 lb) PHYSICAL EXAM: video visit. Gen: pleasant,engaged, appropriate Psych:Pleasant, conversant, normal affect, cognition and mood. PREVIOUS LABS AND IMAGING: Reviewed available labs. I spent a total of 45 minutes with the patient 30 minutes of which were spent in video [id number]/counseling described above re: medical history, medications, obesity, nutrition , and activity as well as obesity related co- morbidities, treatment options were discussed including intensive lifestyle intervention, pharmacotherapy and bariatric surgery with risks and advantages outlines for each. Extensive info sent via Qik. * Yajaira Preston SKILLED NURSING PROFESSIONAL - 09/17/2019 11:00 AM EDT Yajaira Fischer, She says she did not receive any of the new pt packet. ??Can you put the basics in the mail to her.?? Thanks, Velia The above was mailed to patient. Yajaira Preston CMA documented in this encounter [...] as of this encounter Visit Diagnoses Diagnosis Class 3 severe obesity due to excess calories with serious comorbidity and body mass index (BMI) of 50.0 to 59.9 in adult- Primary documented in this encounter Care Teams Plant Chief Relationship Specialty Start Date End Date Radha Villagran, JOSUE [address] [place] [address] PCP - General Family Medicine 01/22/20 06/21/21 documented as of this encounter
--- OUTSIDE RECORDS SUMMARY | 2024-01-13 18:57 | XMS_ITS | Encounter Summary ---
Author Organization [facility] [place] [address] Care Team Providers Care Client Engagement Manager Name Role Phone Amada Carson MD Primary Care Provider [phone] Reason for Visit * Reason Onset Date Comments Rescheduling For Public Health 07/07/2019 Encounter Details Date Type Department Care Team (Late st Contact Info) Description 07/07/2019 Telephone Primary Care at [facility] [address] [place] [id number] Amada Carson MD [address] [place] [address] Rescheduling For Public Health Social History Tobacco Use Types Packs/Day Years [...] * Telephone Encounter - Martha Glasgow - 07/07/2019 2:45 PM EDT Pt does not want to reschedule. Is all set right now documented in this encounter Plan of Treatment Not on file documented as of this encounter Visit Diagnoses Not on filedocumented in this encounter Care Teams Client Engagement Manager Relationship Specialty Start Date End Date Amada Carson MD [address] [place] [address] PCP - General Family Medicine 08/28/18 01/21/20 documented as of this encounter
--- OUTSIDE RECORDS SUMMARY | 2024-01-13 18:57 | XMS_ITS | Encounter Summary ---
Author Organization [facility] [place] [address] Care Team Providers Care Public Safety Director Name Role Phone FerozMedardo Coates Primary Care Provider [phone] Reason for Visit * Reason Comments Medication Refill Encounter Details Date Type Department Care Team (Late st Contact Info) Description 08/31/2019 Refill Neurology at [address] [address] Ashwini Campuzano APRN [facility] [place] [address] Social History Tobacco Use Types Packs/Day Years [...] encounter Miscellaneous Notes * Telephone Encounter - Carleen Schreiber - 08/31/2019 10:30 AM EDT [phone] patient states she was returning a call to Mary regarding this script- please call back. Thank you documented in this encounter Plan of Treatment [...] filedocumented in this encounter Care Teams Public Safety Director Relationship Specialty Start Date End Date Medardo Redman DO [address] [place] [address] PCP - General Family Medicine 06/22/21 documented as of this encounter
--- OUTSIDE RECORDS SUMMARY | 2024-01-13 18:57 | XMS_ITS | Encounter Summary ---
Author Organization [facility] [place] [address] Care Team Providers Care Line Mover Name Role Phone Amada Carson MD Primary Care Provider [phone] Reason for Visit * Auth/Cert Specialty Diagnoses / Procedures Referred By Stacy t Referred To Contact Diagnoses AMS (altered mental status) altered LOC Procedures EMERGENCY IPI Referral ID Status Reason Start Date Expiration Date Visits Re quested Visits Authorized [id number] 1 1 Encounter Details Date Type Department Care Team (Late st Contact Info) Description 09/28/2019 8:48 PM EDT - 09/29/2019 6:30 PM EDT Hospital Encounter H[place] [address] Chana Maharaj MD [facility] [place] [place] [address] Joseline Workman MD [facility] [place] [place] [address] Neurological deficit present; Transient alteration of awareness Discharge Disposition: Home Social History Tobacco Use [...] Sign Reading Time Taken Comments Blood Pressure 156/87 09/29/2019 3:50 PM EDT Pulse 77 09/29/2019 3:25 AM EDT Temperature 36.6 ??C (97.9 ??F) 09/29/2019 3:50 PM ED T Respiratory Rate 20 09/29/2019 3:50 PM EDT Oxygen Saturation 96% 09/29/2019 3:50 PM EDT Inhaled Oxygen Concentration - - Weight - - Height - - Body Mass Index - - documented in this encounter Discharge Summaries * Joseline Workman MD - 09/29/2019 4:24 PM EDT Discharge Summary Patient Name: Kimberli Ledesma Patient Age: 33 y.o. Language: Vincentian Race: White Ethnicity: Not nor Admit Date: 09/28/2019 Discharge Date: 09/29/2019 Attending Physician: Joseline Workman MD Follow-up Recommendations/findings for Providers: (1) An outpatient EEG was ordered. Please ensure the patient gets this and follow up for results. (2) DVT studies were negative for leg pain and she had a normal CK level. It is unclear what is causing her bilateral leg pain without paresthesia or significant weakness. Please follow up to ensure resolution of pain. She should follow up with her PCP in regards to this. He may consider referral to general neurology should the symptoms persist. 3) MRI/A revealed known developmental venous anomaly without acute findings. 4) She had a spell of loss of consciousness with preserved awareness and some preserved memory, thought to be non physiologic in origin. As above, she does need an outpatient EEG. Consider referral to general neuro or to epilepsy should these spells recur. 5) She had left sided weakness that was non physiologic in origin. Her developmental venous anomalyis left frontal, which would not explain her subjective symptoms. Inpatient Provider Contact Information: For questions regarding this document or issues related to this hospitalization on the Neurology Service, please contact the author(s) of this discharge summary through the [facility] Manager Utilization Management . 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 AMS (altered mental status) Resolved Hospital Problems No resolved problems to display. Active Non-Hospital Problems Diagnosis ??? Class 3 severe obesity due to [...] negative cultures. If sx develop check Micro, DIGITAL FORENSIC EXAMINER or stone. ??? Environmental and seasonal allergies ??? Hypertension 06/30/2019 ??? Post-op bleeding 02/08/2012 Following ??? Pyelonephritis 09/09/2018 ??? Strabismus ??? UTI (urinary tract infection) History of Presentation: Kimberli Ledesma is a 33 y.o. female w/ PMH hemicrania continua, ?IIH, chronic migraines, HTN, ELMA, obesity who presented as a transfer from [facility] for altered mental status and abnorma CT findings concerning for AVM. ?? She remembers leaving the showing this morning and stopping by a brook so kids could stretch their legs out at around noon time ?? She remembers people asking her information and she was unable ot lift hands or speak out words. She states she could remember her kids names which were scary. She was clear at around 1700 this morning ?? She denies having any other similar occurrences. She denies family history of seizures. Denies having febrile seizures. About a week ago she stated she hit her head with the hatchback of her car. Shewoke on the flood of [employer] and woke up with old people surrounding her telling her she hit her head. She woke up with a bump on her right forehead. Denies any infections in her head. ?? She is also complaining of myalgias that have been ongoing for around a week since she saw her chiropracter her performed multiple manipulations including the neck. She states she is a fairly active person and has been unable to hike with her children because of the pain. She also states she believe she is weak. She describes the pain as throbbing and worse when she stands. She has no known history of blood clots. She has had one miscarriage of a set of twins at 8 weeks due to undetermined reasons. ?? Headache History: Patient follows with Ashwini Campuzano in Headache Clinic on [facility]. Headaches began after of second child which was complicated by blood loss requiring multiple transfusions. An LP in 2012 while patient was on diamox 125 mg BID for presumed IIH was found to be 23 cm H2O. Headache describesat right temporal that crossed midline with a throbbing quality. Associated symptoms included dizziness and tunnel vision. Repeat LP later tat year revealed an opening pressure of 17 cm H2O. Ophthalmology saw patient in 2017 and noted no evidence of papilledema on exam and recommend discontinuationof diamox. She was admitted to the neurology [...] diagnosed with hemicranium continua and placed on indomethacin. Physical Exam at Admission Gen: Patient of apparent stated age, well nourished, well developed, in NAD Neck: Supple, no meningismus, no carotid bruit, no occipital tenderness CV: RRR, no M/R/G Resp: CTA BL Ext: No edema, no bony deformity, black isaiah on left heel associated with tenderness to touch (pt states she think she stepped on glass) Neuro Exam: MS: A&Ox4, clear language without expressive or receptive aphasia, able to repeat and name objects, no dysarthria, follows commands CN: PERRL, EOMI, visual ling full Facial sensation intact, no facial asymmetry Hearing intact to finger rub BL Palate elevates symmetrically, tongue protrudes midline SCM and trap strength intact Motor: Normal bulk and tone. No pronator drift b/l ?UE: ?5/5 R, 5/5 L ?Arm abduction at shoulder ?5/5 R, 5/5 L ?Elbow extension ?5/5 R, 5/5 L ?Elbow flexion ?5/5 R, 5/5 L ?Wrist??extension ?5/5 R, 5/5 L ?Wrist flexion ?5/5 R, 5/5 L ?Finger??extension ?5/5 R, 5/5 L ?Finger flexion ?5/5 R, 5/5 L ?Shooter'S Helper ?LE: ? 5/5 R, 3/5 L ?Hipflexion* ?5/5 R, 4/5 L ?Knee extension ?5/5 R, 4/5 L ?Knee flexion ?5/5 R, /5 L ?Foot dorsiflexion ?5/5 R, 5/5 L ?Foot plantar flexion * limited by pain, upon asking If could give best effort, +Hoovers Sensation: Intact to light touch and pinprick throughout Reflexes: DTRs 2+ R, 2+ L Biceps 2+ R, 2+ L Brachioradialis 2+ R, 2+ L Triceps 2+ R, 2+ L Patellar 2+ R, 2+ L Achilles tendon Toes - R down, L down Coordination: Finger to nose intact with no dysmetria Rapid alternating movements & finger tapping smooth and symmetric Heel-salazar intact BL Foot tapping smooth and symmetrical No tremor at rest or with motion Gait: (-)Romberg, gait is abnormal with antalgic gait with right foot, unwilling to attempt toe walking and heel walking, stead tandem gait although footing not completely in line Hospital Course: Kimberli Ledesma is a 33 y.o. female w/ PMH whemicrania continua, IIH, HTN, ELMA, obesity who presented as a transfer from [facility] for altered mental status and abnorma CT findings concerning for AVM. She was admitted to the neurology services for further evaluation. Her CT showed increase in size of [...] possible that she had a vasosovagal/syncopal episode. She also complained of bilateral achy leg [...] her normal cognitive baseline prior to discharge. Operations/Major Procedures: None Consultations 1. PT/OT Diagnostic Tests & Neuroimaging: Date Study Results 09/28/19 XR LEFT Foot 1. No acute fractures seen. 2. 1 MTP joint osteoarthropathy. 09/28/19 CT Head Interval development of a small new focus [...] consistent with an inflammatory or infectious process 09/29/19 MRI angio head, MRI BRAIN wwo Pending Labs: Last 3 Lytes Recent Labs 09/29/19 0318 09/28/19 1209 03/06/19 1126 NA 139 136 137 K 3.9 4.2 4.3 CL 102 100 100 CO2 26 26 27 BUN 11 10 10 CREATININE 0.60* 0.65* 0.67* Last 3 LFTs Recent Labs 09/28/19 1209 01/28/19 1201 AST 15 14 ALT 25 22 ALKPHOS 65 72 BILITOT 0.3 0.4 Last Ca, Mg, Phos Recent Labs 09/29/19 0318 CALCIUM 8.7 Last 3 ProBNP, Trop, CK Recent Labs 09/29/19 0318 CK 65 Last 3 CBC Recent Labs 09/29/19 0318 09/28/19 1209 WBC 8.2 10.0* Pending Studies and Lab Data: MRI brain and MRA neck Vital Signs at Discharge: BP: 156/87, Heart Rate: 77, Temp: 36.6 ??C (97.9 ??F), Resp: 20, Functional and Cognitive Status: Baseline/baseline Physical Exam at Discharge: Gen: Patient of apparent stated age, well nourished, well developed, in NAD Neck: Supple, no meningismus, no carotid bruit, no occipital tenderness CV: RRR, no M/R/G Resp: CTA BL Ext: No edema, no bony deformity, black isaiah on left heel associated with tenderness to touch (pt states she think she stepped on glass) Neuro Exam: MS: A&Ox4, clear language without expressive or receptive aphasia, able to repeat and name objects, no dysarthria, follows commands CN: PERRL, EOMI, visual ling full Facial sensation intact, no facial asymmetry Hearing intact to finger rub BL Palate elevates symmetrically, tongue protrudes midline SCM and trap strength intact Motor: Normal bulk and tone. No pronator drift b/l ?UE: ?5/5 R, 5/5 L ?Arm abduction at shoulder ?5/5 R, 5/5 L ?Elbow extension ?5/5 R, 5/5 L ?Elbow flexion ?5/5 R, 5/5 L ?Wrist??extension ?5/5 R, 5/5 L ?Wrist flexion ?5/5 R, 5/5 L ?Finger??extension ?5/5 R, 5/5 L ?Finger flexion ?5/5 R, 5/5 L ?Shooter'S Helper ?LE: ? 5/5 R, 3/5 L ?Hipflexion* ?5/5 R, 4/5 L ?Knee extension ?5/5 R, 4/5 L ?Knee flexion ?5/5 R, 5/5 L ?Foot dorsiflexion ?5/5 R, 5/5 L ?Foot plantar flexion * limited by pain, upon asking If could give best effort, +Hoovers Sensation: Intact to light touch and pinprick throughout Reflexes: DTRs 2+ R, 2+ L Biceps 2+ R, 2+ L Brachioradialis 2+ R, 2+ L Triceps 2+ R, 2+ L Patellar 2+ R, 2+ L Achilles tendon Toes - R down, L down Coordination: Finger to nose intact with no dysmetria Rapid alternating movements & finger tapping smooth and symmetric Heel-salazar intact BL Foot tapping smooth and symmetrical No tremor at rest or with motion Gait: (-)Romberg, gait is abnormal with antalgic gait with right foot, unwilling to attempt toe walking and heel walking, stead tandem gait although footing not completely in line Discharge Conditions/Prognosis: Stable/unknown Discharge to: Home Allergies Allergen Reactions ??? Oxycodone-Acetaminophen Shortness Of Breath ??? Red Dye Other (See Comments) Stops heart Immunization History Administered Date(s) Administered ??? Influenza PF, Split 12/14/2016 ??? Influenza Vaccine PF, Quadrivalent 11/17/2017 ??? Influenza Vaccine PF, Seasonal, Injectible 12/14/2016, 11/18/2017 ??? MMR Vaccine, Live 04/24/2011 ??? Tdap Vaccine 03/28/2010, 11/30/2011 Discharge Medications: Your Medications Continued medications, unchanged Dose Details citalopram 40 [...] Anxiety. 1 mg Quantity: 15 tablet Refills: 1 Instructions Given to Patient at Discharge: Patient Instructions Office Number: Clinic nurse number for most issues and prescription refills: Debbie Felix - For Prescription Refills: Please call for refills when you have one month left on your medication, we have 48 hours from the time you call to get the medication refill placed. Diagnosis: Transient Alteration of Awareness, possibly seizure 2/2 L frontal cavernous malformation Medication changes: None Patient Instructions: ??? Call your doctor or seek medical attention if you have ??? Weakness or numbness in your face or one of your limbs ?? Difficulty speaking ??? Loss of vision in one or both eyes ??? Seizures or loss of consciousness ??? Diet: We recommend a heart healthy diet: low fat, low cholesterol, low concentrated sweets. ??? Activity Restrictions: None ??? Driving Restrictions: We have not confirmed that you had a seizure. However, we strongly recommend that you avoid driving cars, recreational vehicles or heavy machinery and seek alternate transportation. [Statute: 23 [place]. STAT. IVANA. ? 636-37] For more information, please visit [email or web address] Tests to be performed: Routine EEG (outpatient). They will call you to schedule this. Follow-up: In addition to your follow up with Ashwini Campuzano for headache, Neurology office will call you to arrange an appointment with Neurology Clinic to discuss your hospitalization and to followup on your results. Future Appointments Date Time Provider Department Center 11/12/2019 10:00 AM Ashwini Campuzano APRN [facility] General Instructions None Future Appointments and Orders Future Appointments and Orders Future Appointments Provider Department Dept Phone 11/12/2019 10:00 AM Ashwini Campuzano APRN Neurology at [facility] Arrive at: Home [phone] Please visit us at: [email or web address] to view instructions for your upcoming Telehealth appointment Future Appointments Date Time Provider Department Center 11/12/2019 10:00 AM Ashwini Campuzano APRN [facility] Neuro [facility] Primary Care Provider: Amada Carson MD [facility] [employer] [facility] [address] Discharge References/Attachments None documented in this encounter Discharge Instructions * Patient Instructions* Destinee Lakhani MD - 09/29/2019 5:51 PM EDT Office Number: Clinic nurse number for most issues and prescription refills: Debbie Felix - For Prescription Refills: Please call for refills when you have one month left on your medication, we have 48 hours from the time you call to get the medication refill placed. Diagnosis: Transient Alteration of Awareness, possibly seizure 2/2 L frontal cavernous malformation Medication changes: None Patient Instructions: ??? Call your doctor or seek medical attention if you have ??? Weakness or numbness in your face or one of your limbs ?? Difficulty speaking ??? Loss of vision in one or both eyes ??? Seizures or loss of consciousness ??? Diet: We recommend a heart healthy diet: low fat, low cholesterol, low concentrated sweets. ??? Activity Restrictions: None ??? Driving Restrictions: We have not confirmed that you had a seizure. However, we strongly recommend that you avoid driving cars, recreational vehicles or heavy machinery and seek alternate transportation. [Statute: 23 [place]. STAT. IVANA. ? 636-37] For more information, please visit [email or web address] Tests to be performed: Routine EEG (outpatient). They will call you to schedule this. Follow-up: In addition to your follow up with Ashwini Campuzano for headache, Neurology office will call you to arrange an appointment with Neurology Clinic to discuss your hospitalization and to followup on your results. Future Appointments Date Time Provider Department Center 11/12/2019 10:00 AM Ashwini Campuzano APRN [facility] documented in this encounter Medications at Time [...] of this encounter Progress Notes * Kaity Maharaj RN - 09/29/2019 6:39 PM EDT [facility]n [facility] assumed care of pt at 15:30. Pt alert and orientated, calm and cooperative in care. Neuro checks done per doc flow. Pt off to MRI this afternoon, 1mg of po ativan given per MAR prior to MRI per admin instructions. Neurology on the unit after MRI and wrote orders for discharge. IV removed. AVS reviewed with pt and . Both agree with discharge and no further questions at this time. Pt wheeled out to vehicle by unit staff. Please see MAR and doc flow for additional information * Destinee Lakhani MD - 09/29/2019 8:02 AM EDT BRIEF NEUROLOGY PROGRESS NOTE ?? Please see Dr. Ochoa's note for elements of the HPI, Physical Examination, pertinent electrodiagnostic testing and Assessment/Plan. No addenda to the plan at this time. Patient remained stable today without any changes to her neurologic status. DVT scan was negative. MRI brain wwo and MRA neck was done and results are pending. Destinee Lakhani MD Neurology, PGY-2 General Neurology Service #[id number] 09/28/2019 Associated attestation - Joseline Workman MD - 09/30/2019 7:11 AM EDT Attending attestation note: I discussed the patient's case with the resident. I agree with the resident's documentation and plan as outlined in the note. Joseline Workman MD * Sana Small RN - 09/28/2019 10:49 PM EDT Kimberli arrived from [facility] around 2029. VSS. Complaining of 8/10 headache. paged and at bedside to admit patient. Cool cloth applied to head while awaiting medications to be reconciled. Report given to Ashish GARCIA at 2300. documented in this encounter H&P Notes * Kiah Ochoa MD - 09/29/2019 12:21 AM EDT General Neurology Admission History and Physical Patient name: Kimberli Ledesma Date of : 1985 PCP: Amada Carson MD PCP phone number: [phone] CC: No chief complaint on file. Active Hospital Problems Diagnosis ??? AMS (altered mental status) Resolved Hospital Problems No resolved problems to display. Active Non-Hospital Problems Diagnosis ??? Class 3 severe obesity due to excess calories with serious comorbidity and body mass index (BMI) of 50.0 to 59.9 in adult ??? Obstructive sleep apnea ??? Hypertension ??? Hemicrania continua ??? Anxiety ??? Idiopathic intracranial hypertension ??? Neurological deficit present ??? Menorrhagia ??? Exotropia HPI: Kimberli Ledesma is a 33 y.o. female w/ PMH hemicrania continua, ?IIH, chronic migraines, HTN, ELMA, obesity who presented as a transfer from [facility] for altered mental status and abnorma CT findings concerning for AVM. She remembers leaving the showing this morning and stopping by a brook so kids could stretch their legs out at around noon time She remembers people asking her information and she was unable ot lift hands or speak out words. She states she could remember her kids names which were scary. She was clear at around 1700 this morning She denies having any other similar occurrences. She denies family history of seizures. Denies having febrile seizures. About a week ago she stated she hit her head with the hatchback of her car. Shewoke on the flood of [employer] and woke up with old people surrounding her telling her she hit her head. She woke up with a bump on her right forehead. Denies any infections in her head. She is also complaining of myalgias that have been ongoing for around a week since she saw her chiropracter her performed multiple manipulations including the neck. She states she is a fairly active person and has been unable to hike with her children because of the pain. She also states she believe she is weak. She describes the pain as throbbing and worse when she stands. She has no known history of blood clots. She has had one miscarriage of a set of twins at 8 weeks due to undetermined reasons. Headache History: Patient follows with Ashwini Campuzano in Headache Clinic on [facility]. Headaches began after of second child which was complicated by blood loss requiring multiple transfusions. An LP in 2012 while patient was on diamox 125 mg BID for presumed IIH was found to be 23 cm H2O. Headache describesat right temporal that crossed midline with a throbbing quality. Associated symptoms included dizziness and tunnel vision. Repeat LP later tat year revealed an opening pressure of 17 cm H2O. Ophthalmology saw patient in 2017 and noted no evidence of papilledema on exam and recommend discontinuationof diamox. She was admitted to the neurology [...] diagnosed with hemicranium continua and placed on indomethacin. Current Medications: Scheduled Meds: Continuous Infusions: PRN Meds:. Past Medical & Surgical History: Past Medical History: Diagnosis Date ??? Abnormal cervical Papanicolaou smear 09/09/2018 ??? Diverticulosis of colon 09/09/2018 ??? Dysplasia of cervix 07/17/2006 ??? Dysuria 07/17/2006 episodes of dysuria and frequency but all negative cultures. If sx develop check Micro, DIGITAL FORENSIC EXAMINER or stone. ??? Environmental and seasonal allergies [...] JEFF performed by Genevieve Walsh MD at [facility] ??? PRO STABISMUS SURG,TWO HORIZ MUSCLE Right 02/01/2014 STRABISMUS SURGERY, TWO HORIZONTAL MUSCLES performed by Genevieve Walsh MD at [facility] ??? PRO STRABISMUS SURG,PLACE ADJUST SUTURE Right 12/31/2013 STRABISMUS SURGERY, PLACEMENT OF ADJUSTABLE SUTURES IN CONJUNCTION W/ ANOTHER SURGERY performed by Genevieve Walsh MD at [facility] ??? PRO STRABISMUS SURG,SCAR EXTRAOCUL MUSC Right 02/01/2014 STRABISMUS SURGERY WITH SCARRING OF EXTRAOCULAR MUSCLES IN CONJUNCTION W/ ANOTHER SURGERY performedby Genevieve Walsh MD at [facility] ??? SINUS SURGERY ??? TUBAL LIGATION Bilateral 04/24/2011 [facility]; Sherrell Schmidt MD ??? WISDOM TOOTH EXTRACTION N/A 07/01/2002 [facility]; AILEEN RIVERA, LAUREN Home Medications: Current Facility-Administered Medications on File Prior to Encounter Medication Dose Route Frequency Provider Last Rate Last Dose ??? [COMPLETED] morphine 2 mg/mL injection syringe 2 mg 2 mg Intravenous Once Leila Iraheta MD 2mg at 09/28/19 1504 ??? [COMPLETED] levETIRAcetam (KEPPRA) injection 1,000 mg 1,000 mg Intravenous Once Leila Iraheta MD 1,000 mg at 09/28/19 1747 ??? [COMPLETED] morphine 2 mg/mL injection syringe 2 mg 2 mg Intravenous Once Leila Iraheta MD 2mg at 09/28/19 1740 ??? [DISCONTINUED] sodium chloride 0.9 % (flush) flush 3 mL 3 mL Intravenous Q1 Min PRN Leila Iraheta MD ??? [DISCONTINUED] sodium chloride 0.9% infusion 150 mL/hr Intravenous Continuous Leila Iraheta MD 150 mL/hr at 09/28/19 1816 150 mL/hr at 09/28/19 1816 Current Outpatient Medications on File Prior to Encounter Medication Sig Dispense Refill ??? indomethacin (INDOCIN) [...] Hx ??? Cancer Neg Hx Social History: Smoking: occasional cigarette 1 every couple of weeks. Use to smoke 1/2 ppd for 10 years priuor to having children, decreased smoking 10 years ago. 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 Marital status: [...] file Gets together: Not on file Attends rastafari service: Not on file Active member of [...] Narrative ??? Not on file Review of systems, positive findings of BOLDED: GEN: Fever, chills, fatigue, nocturnal hyperhydrosis, unexpected weight change, anorexia. HEENT: Change in vision, hearing, smell, taste. Pharyngodynia, rhinorrhea. (allergies) CV: chest pain, palpitations, orthopnea, paroxysmal noctural dyspnea, claudication PULM: dyspnea, cough, wheezing, sputum production ABD: abdominal pain, dysphagia, odynophagia, nausea, vomiting, diarrhea, constipation, melena, hematochezia. : dysuria, hematuria NEURO: anesthesia, paresthesia, asymmetric weakness, headache, photophobia, or phonophobia. SKIN: rashes, ulcers HEM: Bleeding, bruising, history of blood clots MSK: arthralgia, arthritis, myalgia in lower extremities the past week after adjustments from chiropracter last week, weakness in legs, history of bone fracture, history of hip fracture in parent. PSYCH: Depression, anhedonia, suicidal ideation, homicidal ideation Otherwise 11 systems are reviewed and negative. Vitals: Last value Range last 24 hrs Temperature Temp: 36.9 ??C (98.4 ??F) Temp: [36.8 ??C (98.2 ??F)-36.9 ??C (98.4 ??F)] Heart Rate Heart Rate: [71-83] Blood Pressure BP: 126/81 BP: (120-145)/(67-92) Art Line BP BP (Arterial Line): -- MAP (NBP): [96 mmHg] Respiratory Rate Resp: 18 Resp: [16-20] SpO2 SpO2: 95 % SpO2: [95 %-97 %] Oxygen Delivery Oxygen Therapy O2 Device: None (Room air) Admit wt: Intake/Output Summary (Last 24 hours) at 09/29/2019 0326 Last data filed at 09/28/2019 2300 Gross per 24 hour Intake 380.8 ml Output -- Net 380.8 ml Physical Exam: Gen: Patient of apparent stated age, well nourished, well developed, in NAD Neck: Supple, no meningismus, no carotid bruit, no occipital tenderness CV: RRR, no M/R/G Resp: CTA BL Ext: No edema, no bony deformity, black isaiah on left heel associated with tenderness to touch (pt states she think she stepped on glass) Neuro Exam: MS: A&Ox4, clear language without expressive or receptive aphasia, able to repeat and name objects, no dysarthria, follows commands CN: PERRL, EOMI, visual ling full Facial sensation intact, no facial asymmetry Hearing intact to finger rub BL Palate elevates symmetrically, tongue protrudes midline SCM and trap strength intact Motor: Normal bulk and tone. No pronator drift b/l UE: 5/5 R, 5/5 L Arm abduction at shoulder 5/5 R, 5/5 L Elbow extension 5/5 R, 5/5 L Elbow flexion 5/5 R, 5/5 L Wrist extension 5/5 R, 5/5 L Wrist flexion 5/5 R, 5/5 L Finger extension 5/5 R, 5/5 L Finger flexion 5/5 R, 5/5 L Shooter'S Helper LE: 5/5 R, 3/5 L Hip flexion* 5/5 R, 4/5 L Knee extension 5/5 R, 4/5 L Knee flexion 5/5 R, 5/5 L Foot dorsiflexion 5/5 R, 5/5 L Foot plantar flexion * limited by pain, upon asking If could give best effort, +Hoovers Sensation: Intact to light touch and pinprick throughout Reflexes: DTRs 2+ R, 2+ L Biceps 2+ R, 2+ L Brachioradialis 2+ R, 2+ L Triceps 2+ R, 2+ L Patellar 2+ R, 2+ L Achilles tendon Toes - R down, L down Coordination: Finger to nose intact with no dysmetria Rapid alternating movements & finger tapping smooth and symmetric Heel-salazar intact BL Foot tapping smooth and symmetrical No tremor at rest or with motion Gait: (-)Romberg, gait is abnormal with antalgic gait with right foot, unwilling to attempt toe walking and heel walking, stead tandem gait although footing not completely in line Labs: CBC: Recent Labs 09/28/19 1209 WBC 10.0* HGB 12.8 HCT 38.2 PLATELET 299 NEUTROABS 6.35* Chemistry: Recent Labs 09/28/19 1209 03/06/19 1126 01/28/19 1201 NA 136 137 138 K 4.2 4.3 4.7 CL 100 100 100 CO2 26 27 29 BUN 10 10 14 CREATININE 0.65* 0.67* 0.66* GLUCOSE 125 95 94 ANIONGAP 10 10 9 Recent Labs 09/28/19 1209 03/06/19 1126 01/28/19 1201 CALCIUM 9.4 9.9 9.4 LFT's: Recent Labs 09/28/19 1209 01/28/19 1201 BILITOT 0.3 0.4 ALBUMIN 4.2 4.5 ALKPHOS 65 72 ALT 25 22 AST 15 14 Coags: No results for input(s): PT, INR, PTT, FIBRINOGEN, DDIMER in the last 168 hours. Invalid input(s): THROMBIN TIME Cardiac enzymes: No results for input(s): TROPONINT, CK, PROBNP in the last 7068 hours. Endocrine: No results for input(s): TSH, CORTISOL in the last 7068 hours. Invalid input(s): FVLMAJTMMIC4O No results for input(s): HA1C in the last 7068 hours. Heme: No results for input(s): LDH, HAPTOGLOBIN, URICACID in the last 168 hours. Microbiology Results (Last 30 days) Procedure Component Value Units Date/Time COVID-19 PCR [[id number]] Collected: 09/28/19 1726 Lab Status: Final result Specimen: Nasopharyngeal Swab Updated: 09/28/19 2349 Rapid SARS-CoV-2 RNA Not Detected Comment: This result should be interpreted in [...] using the Simplexa COVID-19 Direct Assay by 24h00 as authorized by the FDA issued Emergency [...] Department of Pathology and Laboratory Medicine at [facility], certified under the Clinical Laboratory [...] Information for Healthcare Professionals (https://www.cdc.gov/coronavirus/2019-ncov/hcp/index.html). SARS-CoV-2 Source FILM SPLICER Swab Diagnostic Tests and Imaging: CT Head 09/28/19: Interval development of a small new focus of high attenuation material within the deep white matter of the left frontal lobe. This may represent hemorrhage or mineralization. Differential diagnosis includes cavernous malformation and aneurysm This lesion was visible on the MRI of 2018 but since it appears larger on the current CT, repeat MRI (with MRA) is recommended. Assessment and Plan: Kimberli Ledesma is a 33 y.o. female w/ PMH whemicrania continua, IIH, HTN, ELMA, obesity who presented as a transfer from [facility] for altered mental status and abnorma CT findings concerning for AVM. Kimberli's symptoms are concerning for possible seizure episode that can be realted to her vascular malformation seen on CT and on prior MRIs. Because of the potential increase in size, she will need MRI and vessel imaging. She denies similar occurences in the past but has had other unsual presentation such as speech stuttering with headache that resolved with LP though to be functional in nature. Patient is currently back to baseline and a routine EEG will suffice to look for any possibly interictal patterns to suggest possible seizure related to vessel abnormality seen on imaging. She also presents with symptoms of myalgias in bilateral lower extremities. She had some weakness in her left leg on exam but was bearing weight and showed no weakness on the left when walking. She states that the exam may be limited by pain. Because of her pain to palpation and with dorsiflexion L>R, I have ordered duplex studies to work up for potential DVT. Because of the bilaterality of her pain, it is less likely. In addition, I have ordered CK to look for underlying myopathy. She should be evaluated by PT/OT with her further workup. # Admit to Neurology # Loss of time, lethargy concern for seizure vs conversion - Neuro check & vitals Q4hrs / Q4hrs - Check CBC, BMP, LFT, Mg, Phos, UA - routine EEG - MRI brain w/wo contrast - MRA head wo contrast - PT/OT # Lower extremity pain, weakness - duplex of bilateral lower extremities - PT/OT #hemicranium continua - c/w indomethacin 50 mg TID - hydroxyzine 25 mg TID PRN (new med) Other home meds - c/w citalopram 40 mg QD - c/w lisinopril 20 mg QD # Supportive care - Tylenol PRN - Up with assistance # Misc - Diet: Regular diet - DVT ppx: lovenox - Consults: PT/OT - Code status: Attempt Cardiopulmonary Resuscitation - Inpatient Kiah Ochoa MD Neurology PGY-3 General Neurology Service #[id number] 09/29/2019 Associated attestation - Joseline Workman MD - 09/29/2019 11:35 AM EDT Attending Physician Attestation I saw and evaluated the patient with the resident team (Dr. Maravilla, Dr Lakhani). The patient casewas discussed with Dr. Ochoa. I have reviewed the medical records and the patient's history during the visit, and I agree with the details as written. My physical examination confirms the documented findings. The assessment and plan were formulated in discussion with me at the time of the visit, and I agreewith them as documented. Joseline Workman MD documented in this encounter Miscellaneous Notes * Initial Assessments - Mattie Gao RN - 09/29/2019 2:19 PM EDT Office of Care Management Initial Assessment Mattie Gao RN reviewed record and discussed patient with Care Team. Source of Information: General Neuro Team, Charge nurse chart review, Interviewed spouse, Pt was inMRI Reason for Hospitalization: Per H&P by Kiah Ochoa Kimberli Ledesma is a 33 y.o. female w/ PMH hemicrania continua, ?IIH, chronic migraines, HTN, ELMA, obesity who presented as a transfer from [facility] for altered mental status and abnormal CT findings concerning for AVM. LAST COVID: 09/28/19 1726 Past Medical History: Diagnosis Date ??? Abnormal cervical Papanicolaou smear 09/09/2018 ??? Diverticulosis of colon 09/09/2018 ??? Dysplasia of cervix 07/17/2006 ??? Dysuria 07/17/2006 episodes of dysuria and frequency but all negative cultures. If sx develop check Micro, DIGITAL FORENSIC EXAMINER or stone. ??? Environmental and seasonal allergies ??? Hypertension 06/30/2019 ??? Post-op bleeding 02/08/2012 Following ??? Pyelonephritis 09/09/2018 ??? Strabismus ??? UTI (urinary tract infection) Hospitalizations Within the Past 30 Days: No [facility] admits in last 30 days. Anticipated Length Of Stay (If known): 1-2 days Vs TBD Current Decision-Making Capacity: Patient is A&Ox4 per nursing documentation Advance Care Planning: Attempt Cardiopulmonary Resuscitation - Inpatient No AD in [facility]. If AD's have not been completed spouse Farhan Ledesma @ [phone] would be surrogate decisionmaker per [place] surrogate decision making law. Current Coping/Education/Information Needs: Coping well with hospital stay and feels updated on issues and plan. Current Functional Ability: SBA d/t hospitalization policy Functional Status Prior to Admission: Fulling independent w/ADL's and ambulation Home Environment: multlevel: 13 stairs entry w/railing; 13 stairs inside w/railing Single level living possible if needed [address] [facility] [address] Social & Family Supports/Community Resources: Lives w/spouse and 2 children With family nearby to help Extended Emergency Contact Information Primary Emergency Contact: Farhan Ledesma [facility] Relation: Spouse Behavioral Health History: Spouse unsure Substance Use/Abuse: Pt's spouse endorses 1/2 PPD, about 1 drink a week alcohol and denies any other non-prescription substances Health/Prescription Coverage: Primary Insurance: P Secondary Insurance: N/A Prescription Coverage: Preferred Pharmacy: [facility] [address] [place] [address] [address] [facility] [address] [facility] [id number] [facility] [address] Other: none Primary Care Provider: Amada Carson MD [phone] Patient/Caregiver Goals of Treatment: return to previous level of function Potential Needs for Transition of Care: Discussed with patient and family levels of rehab includingSNF, swing, acute and VNA home health care also discussed. Discussed need to accept first bed available when patient is medically ready. Rehab/SNF: None Home Health: None DME: none Dialysis: NA Community Resources: none Transportation: car w/spouse Other: none Anticipated Barriers to Discharge/Special Considerations: none Assessment: Patient is admitted to neurology service for evaluation Pt lives w/spouse and 2 children 8 and 10 years old in a multilevel home w/12 stairs to enter and 12 stairs inside, both with railings. They have family support to help at home. Plan: A member of the Care Management team will continue to monitor progress, follow for continuityof care and assist with transition of care planning. Mattie Gao RN Case Manager Pager [phone] Extension [phone] * Plan of Care - Sadi Xiao RN - 09/29/2019 1:47 AM EDT Problem: Patient Care Overview Goal: Plan of Care Review 09/28/192199 Coping/Psychosocial Plan Of Care Reviewed With patient OUTCOME EVALUATION NOTE: OUTCOME SUMMARY: Received report from RADHA Meyer at 2300. VSS. Reporting headache at 09/27, scheduled indomethacin administered per APR. BLE duplex ordered. Resting quietly between care, no adverse events. PLAN MOVING FORWARD: Monitor labs, VS, I/O. Head MRI. BLE duplex. INDIVIDUALIZED FALL PREVENTION INTERVENTIONS: Patient-specific fall risk factors per assessment: [current deficits]: Secondary diagnosis, IV sites, masimo. Assistance [level of assistance required for transfers and ambulation]: SBA x24hrs. Supervision [direct monitoring required during toileting and ADLs]: Eyes on, hands on. Surveillance [continuous indirect monitoring]: Hourly rounding completed, call eubanks within arms oriana gabriel, bed alarm. Patient-specific fall prevention interventions for sensory deficits provided, if applicable: [X] N/A CPG GOAL OUTCOME EVALUATION: Goal: Fall Prevention-Safe Patient Handling 09/28/192199 [place] Fall Risk History of Falling 0 Secondary Diagnosis 15 Ambulatory Aids 0 Intravenous Therapy/Heparin/Saline Lock 20 Gait/Transferring 0 Mental Status 0 Score 35 OTHER [place] Fall Risk Med Restraint Interventions Safety Promotion/Fall Prevention activity supervised;fall prevention program maintained;nonskid shoes/slippers when out of bed;safety round/check completed Positioning Body Position independent Activity Activity Type activity adjusted per tolerance Activity Assistance Provided assistance, stand-by Assistive Device Utilized none Goal: Infection Control 09/28/19 2200 Safety Interventions Isolation Precautions standard precautions maintained Infection Prevention environmental surveillance performed Coping Strategies Supportive Measures active listening utilized;self-care encouraged;self- reflection promoted;self-responsibility promoted;verbalization of feelings encouraged documented in this encounter Plan of [...] Procedure Name Priority Date/Time Associated Diagnosis Comments DUPLEX FOR DVT BILAT LEGS Routine 09/29/2019 11:50 PM EDT Neurological deficit present MRI ANGIOGRAM HEAD WO & MRI BRAIN WWO CONTRAST Routine 09/29/2019 5:14 PM EDT HEMOGRAM Routine 09/29/2019 3:18 AM EDT DIFFERENTIAL, AUTOMATED Routine 09/29/2019 3:18 AM EDT HC CBC,PLT & AUTO DIFF Routine 09/29/2019 3:18 AM EDT HC CREATINE PHOSPHOKINASE, SERUM Routine 09/29/2019 3:18 AM EDT BASIC METABOLIC PANEL Routine 09/29/2019 3:18 AM EDT documented in this encounter Results * Duplex Study for DVT, Bilat legs (09/29/2019 11:50 PM EDT) [facility] VB Text Report Department: Vascular Surgery Lab Patient: [id number] (KIMBERLI LEDESMA) CPT: 20197 ICD10: M79.604;M79.605;R2 9.818 Referring Physician: CHANA MAHARAJ ?? Phone: Indications: ?? Bilateral lower extremity pain (L>R), ? DVT [...] the calf due to suboptimal visualization. Comparison: ?? No previous study in our vascular lab database for comparison. Comment: Consider follow-up exam if signs or symptoms suggestive of DVT persist or worsen. 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 MRA head: Normal study. Thank you for letting us participate in the care of this patient. For questions regarding this report, please contact the number below. ? Electronically signed by: DELVIS Smith [facility] ([phone]), at 09/29/2019 7:11 PM Narrative 09/29/2019 7:11 PM EDT EXAMINATION: MRI ANGIOGRAM HEAD WO & MRI BRAIN WWO CONTRAST CLINICAL HISTORY: pt with episodes of unresponsiveness possible vessel abnormalities on CT, seizure question TECHNIQUE: MRI of the brain was performed before and after the intravenous administration of 28cc Dotarem. ??MR Angiogram of the head without contrast was also performed. 3-D MIP reconstructions were created. COMPARISON: CT head 09/28/2019 FINDINGS: MRI brain: There is a developmental [...] cut off, or other significant arterial abnormality. Procedure Note Nathanael Hurtado MD - 09/29/2019 EXAMINATION: MRI ANGIOGRAM HEAD WO & MRI BRAIN WWO CONTRAST CLINICAL HISTORY: pt with episodes of unresponsiveness possible vessel abnormalities on CT, seizure question TECHNIQUE: MRI of the brain was performed before and after the intravenousadministration of 28cc Dotarem. MR Angiogram of the head without contrast was alsoperformed. 3-D MIP reconstructions were created. COMPARISON: CT head 09/28/2019 FINDINGS: MRI brain: There is a developmental venous anomaly in the lateral aspect of theleft frontal lobe. There is a subjacent chronic microbleed in the parenchymaljust medial to the DVA which shows a faint amount of T1 bright signal on the precontrast T1 axial images, with no surrounding edema. No additional intracranial hemorrhage. No solid mass lesion, midline shift,hydrocephalus, or acute infarction. The subarachnoid spaces are within normal limits. Noabnormal enhancement. The marrow signal is within normal limits. MRA head: No aneurysm, vascular malformation, significant arterial stenosis, cutoff, or other significant arterial abnormality. IMPRESSION MRI brain: Lateral left frontal cavernous malformation with associated developmentalvenous anomaly. MRA head: Normal study. Thank you for letting us participate in the care of this patient. Forquestions regarding this report, please contact the number below. Electronically signed by: Nathanael Hurtado [facility] ([phone]),at 09/29/2019 7:11 PM Chana Maharaj MD [facility] MRI ORDERABLES * Differential, Automated (09/29/2019 3:18 AM EDT) Neutrophil % 50.0 % [facility] Neutrophil Absolute 4.08 1.70 - 6.10 x10(3)/[facility] Lymph % 38.0 % [facility] Lymphocytes Abs 3.1 0.9 - 3.2 x10(3)/[facility] Monocyte % 9.0 % [facility] Monocyte Abs 0.7 0.3 - 0.9 x10(3)/[facility] Eos % 2.2 % [facility] Eosinophils Abs 0.2 0.0 - 0.4 x10(3)/[facility] Basophil % 0.4 % [facility] Baso Absolute 0.0 0.0 - 0.1 x10(3)/[facility] Immature Gran % 0.40 % [facility] Comment: Immature granulocytes(IG's)percentage and absolute count will include metamyelocytes, myelocytes, and promyelocytes. Blood smears from CBCs yielding IG's will be scanned manually for concordance. If this scan disagrees with the automated IG or if promyelocytes are noted, a manual differential will be performed. Immature Gran Absolute 0.03 0.00 - 0.04 x10(3)/[facility] Blood specimen (specimen) 09/29/2019 3:18 AM EDT 09/29/2019 3:44 AM EDT Narrative Resulting Agency Comment Spec In Lab Kiah Ochoa MD HEMATOLOGY ORDERA BLES [facility] [place] [address] * Hemogram (09/29/2019 3:18 AM EDT) White Blood Cell 8.2 4.0 - 9.5 x10(3)/[facility] Red Blood Cell 4.08 4.00 - 5.21 x10(6)/[facility] Hemoglobin 12.0 11.7 - 15.5 gm/dL [facility] Hematocrit 37.2 35.7 - 45.8 % [facility] Mean Cell Volume 91.2 82.6 - 94.4 fL [facility] Mean Cell Hemoglobin 29.4 27.1 - 32.0 pg [facility] Mean Cell Hemoglobin Concentration 32.3 31.7 - 35.0 gm/dL [facility] Platelet 281 145 - 357 x10(3)/[facility] RDW Standard Deviation 43.1 37.0 - 46.0 [facility] RDW coefficient of variation 13.0 11.5 - 14.1 % [facility] Mean Platelet Volume 9.7 7.6 - 12.9 fL [facility] NRBC% auto 0.0 % [facility] NRBC Absolute 0.000 0.000 - 0.000 x10(3)/mcL [facility] Blood specimen (specimen) 09/29/2019 3:18 AM EDT 09/29/2019 3:44 AM EDT Narrative Resulting Agency Comment Spec In Lab Kiah Ochoa MD HEMATOLOGY ORDERA BLES [facility] [place] [address] * (ABNORMAL) Basic Metabolic Panel (non-fasting) (09/29/2019 3:18 AM EDT) Glucose 107 65 - 199 mg/dL [facility] Comment:Diabetes: >=200 mg/d L plus symptoms Blood Urea Nitrogen 11 8 - 18 mg/dL [facility] Creatinine 0.60(L) 0.70 - 1.20 mg/dL [facility] Sodium 139 135 - 145 mmol/L [facility] Potassium 3.9 3.5 - 5.0 mmol/L [facility] Comment: Please note: ??Patients with WBC >100,000 may have falsely elevated Potassium levels. ??For accurate Potassium quantification in these patients send serum separator tube (gold top) for subsequent determinations. ??Contact the Clinical Chemistry Laboratory if there are any questions. Chloride 102 98 - 107 mmol/L [facility] Carbon Dioxide 26 22 - 31 mmol/L [facility] Anion Gap 11 5 - 15 mmol/L [facility] Calcium 8.7 8.5 - 10.5 mg/dL [facility] Est Glomerular Filtration Rate 118 >=60 mL/min/1. 73 m?? [facility] Comment: The eGFR was calculated using the CKD-EPI equation. As with all creatinine based estimates of kidney function, eGFR values calculated with the CKD-EPI equation are not accurate in patients with acute kidney failure, extremes of body mass or the acutely ill. http://Academia.edu/DHMCnkf eGFR 137 >=60 mL/min/1. 73 m?? [facility] Comment: The eGFR was calculated using the CKD-EPI equation. As with all creatinine based estimates of kidney function, eGFR values calculated with the CKD-EPI equation are not accurate in patients with acute kidney failure, extremes of body mass or the acutely ill. http://[employer].edu/DHMCnkf Blood specimen (specimen) 09/29/2019 3:18 AM EDT 09/29/2019 3:44 AM EDT Narrative Resulting Agency Comment Spec In Lab Chana Maharaj MD CHEMISTRY ORDERABL ES Performing Organization Address [facility] Co de Phone Number [facility] [place] [address] * CK (09/29/2019 3:18 AM EDT) Creatine Kinase 65 0 - 160 unit/L [facility] Blood specimen (specimen) 09/29/2019 3:18 AM EDT 09/29/2019 3:44 AM EDT Narrative Resulting Agency Comment Spec In Lab Chana Mahraaj MD CHEMISTRY ORDERABL ES Performing Organization Address [facility] de Phone Number [facility] [place] [address] documented in this encounter Visit Diagnoses Diagnosis Neurological deficit present Other symptoms involving nervous and musculoskeletal systems Transient alteration of awareness AMS (altered mental status) documented in this encounter Admitting Diagnoses Diagnosis AMS (altered mental status) documented in this encounter Administered Medications Inactive Administered Medications - up to 3 most recent administrations Medication Order MAR Action Action Date Dose Rate Site citalopram (CeleXA) tablet 40 mg 40 mg, Oral, DAILY, First dose on Sat09/29/19 at 0900, Until Discontinued, Routine Given 09/29/2019 9:21 AM EDT 40 mg gadoterate meglumine (DOTAREM) 0.5 mmol/mL (376.9 mg/mL) injection 28.76 mL 28.76 mL (0.2 mL/kg/dose ? 143.8 kg), Intravenous, ONCE PRN, 1 dose, Starting on Sat09/29/19 at 1659, Until Sat09/29/19 at 1659, Per Protocol, Radiology Contrast, Routine Given 09/29/2019 4:59 PM EDT 28 mLs hydrOXYzine (Atarax) tablet 25 mg 25 mg, Oral, 3 TIMES DAILY PRN, Starting on Sat09/28/19 at 2207, Until Sat09/29/19 at 2057, Itching, Routine Given 09/29/2019 12:15 PM EDT 25 mg indomethacin (Indocin) capsule 50 mg 50 mg, Oral, 3 TIMES DAILY, First dose on Sat09/28/19 at 2330, Until Discontinued, Routine Given 09/29/2019 2:33 PM EDT 50 mg Given 09/29/2019 9:21 AM EDT 50 mg Given 09/28/2019 11:52 PM EDT 50 mg lisinopriL (Prinivil;Zestril) tablet 20 mg 20 mg, Oral, DAILY, First dose on Sat09/29/19 at 0900, Until Discontinued, Routine Given 09/29/2019 9:21 AM EDT 20 mg LORazepam (Ativan) tablet 1 mg 1 mg, Oral, ONCE, 1 dose, On Sat09/29/19 at 1200, Please give just before MRI, Routine Given 09/29/2019 3:52 PM EDT 1 mg magnesium sulfate 1g in dextrose 5% 100mL 1 g, Intravenous, ONCE, 1 dose, On Sat09/29/19 at 1245, Administer over 60 Minutes New Bag 09/29/2019 12:14 PM EDT 1 g 100 mL/hr sodium chloride 0.9 % (flush) flush 5 mL 5 mL, Intravenous, 2 TIMES DAILY, First dose on Sat09/28/19 at 2300, Until Discontinued, Routine Given 09/29/2019 10:58 AM EDT 5 mLs documented in this encounter Active and Recently Administered Medications Times are shown in EDT. Scheduled Medication Order 09/27/2019 09/28/2019 09/29/2019 citalopram (CeleXA) tablet 40 mg 40 mg, Oral, DAILY, First dose on Sat09/29/19 at 0900, Until Discontinued, Routine 920 (Given - Provid er: Russell Vazquez RN) indomethacin (Indocin) capsule 50 mg 50 mg, Oral, 3 TIMES DAILY, First dose on Sat09/28/19 at 2330, Until Discontinued, Routine 2352 (Given - Provider: Sadi Xiao RN) 0921 (Given - Provider: Russell Vazquez RN)1433 (Given - Provider: Russell Vazquez RN) lisinopriL (Prinivil;Zestril) tablet 20 mg 20 mg, Oral, DAILY, First dose on Sat09/29/19 at 0900, Until Discontinued, Routine 0921 (Given - Provid er: Russell Vazquez RN) LORazepam (Ativan) tablet 1 mg (COMPLETED) 1 mg, Oral, ONCE, 1 dose, On Sat09/29/19 at 1200, Please give just before MRI, Routine 1552 (Given - Provid er: Kaity Maharaj RN) magnesium sulfate 1g in dextrose 5% 100mL (COMPLETED) 1 g, Intravenous, ONCE, 1 dose, On Sat09/29/19 at 1245, Administer over 60 Minutes 1214 (New Bag - Provider: Russell Vazquez RN)1314 (Stopped - Provider: Russell Vazquez RN) sodium chloride 0.9 % (flush) flush 5 mL 5 mL, Intravenous, 2 TIMES DAILY, First dose on Sat09/28/19 at 2300, Until Discontinued, Routine 2353 (Not Given - Provider: Sadi Xiao RN - Reason: See comment - Comment: PIV already flushed.) 1058 (Given - Provider: Russell Vazquez RN) PRN Medication Order 09/27/2019 09/28/2019 09/29/2019 gadoterate meglumine (DOTAREM) 0.5 mmol/mL (376.9 mg/mL) injection 28.76 mL (COMPLETED) 28.76 mL (0.2 mL/kg/dose ? 143.8 kg), Intravenous, ONCE PRN, 1 dose, Starting on Sat09/29/19 at 1659, Until Sat09/29/19 at 1659, Per Protocol, Radiology Contrast, Routine 1659 (Given - Provid er: Izabela Em) hydrOXYzine (Atarax) tablet 25 mg 25 mg, Oral, 3 TIMES DAILY PRN, Starting on Sat09/28/19 at 2207, Until Sat09/29/19 at 2057, Itching, Routine 1215 (Given - Provid er: Russell Springmann, RN) lidocaine (XYLOCAINE) 10 mg/mL (1 %) injection 3 mg 3 mg (0.3 mL), Subcutaneous, ONCE PRN, 1 dose, Starting on Sat09/28/19 at 220, Until Sat09/29/19 at 2056, for discomfort with PIV insertion, Routine sodium chloride 0.9 % (flush) flush 5-20 mL 5-20 mL, Intravenous, EVERY 1 MIN PRN, Starting on Sat09/28/19 at 220, Until Sat09/29/19 at 2056, flush, Flush pertains to all indwelling lines. Flush per protocol found in the job aid using the link provided on this medication record., Routine documented in this encounter Care Teams Line Mover Relationship Specialty Start Date End Date Amada Carson MD [address] [place] [address] PCP - General Family Medicine 08/28/18 01/21/20 documented as of this encounter
--- OUTSIDE RECORDS SUMMARY | 2024-01-13 18:57 | XMS_ITS | Encounter Summary ---
Author Organization [facility] [place] [address] Care Team Providers Care Manager Educational Name Role Phone Amada Carson MD Primary Care Provider [phone] Reason for Visit * Consultation (Routine) - Closed Specialty Diagnoses / Procedures Referred By Stacy t Referred To Contact Sleep Center Diagnoses Morbid obesity Hemicrania continua Hypertension, unspecified type Snoring Procedures PRG POLYSOM 6+ YRS SLEEP W 4+ ADDL CATHERINE ATTND PRG HOME SLEEP TEST TYPE 3 PORTABLE Matthew Virk MD [facility] [place] [address] [facility] [address] [place] [address] Referral ID Status Reason Start Date Expiration Date V isits Requested Visits Authorized [id number] Closed Specialty Service Requested 04/01/2019 03/31/2020 1 1 Encounter Details Date Type Department Care Team (Latest Contact Info) Description 07/06/2019 1:00 PM EDT [facility] [address] [place] [address] Matthew Virk MD [facility] [place] [address] Obstructive sleep apnea Social History Tobacco Use [...] on file documented as of this encounter Procedure Notes * Matthew Virk MD - 07/06/2019 1:00 PM EDT Images from the original note were not included. APD HST 3% Report Physician's Interpretation: Bree Bales is a 33 year old woman with loud snoring and daytime headaches. This is a report of a home sleep test. The patient's self-estimated total sleep time was 515.1 minutes. The patient was supine for 45.9% and non supine for 54.1%. Snoring was present for 24.0% of the study. The patient exhibited severe obstructive sleep apnea with a respiratory event index (CALIN) of 35.9 (CALIN scores on home sleep tests are routinely lower than lab-based studies because they do not capture events marked by arousals but without significant oxygen desaturations). Events were obstructive in nature. The mean oxygen saturation was 93.7% with an oxygen desaturation katlyn to 84.0%. Time spent with saturation equal to or below 87% was 1 min (0.2 % of TST). Pulse was normal throughout. Final Diagnosis: obstructive sleep apnea G47.33 Recommendations: These will be presented in a separate letter that I will send to the patient. electronically signed by Matthew Virk M.D. on 07/15/2019 1:28:56 PM Patient Information Full Name: Bree Bales Date of : 1985 Age: 33 Gender Female Height: 66.1 in Weight: 304.2 lbs BMI: 48.9 Recording Information Recording Date: 07/06/2019 Analysis Start Time: 8:05 PM Recording Tags: Analysis Stop Time: 5:09 AM Device Type: T3 Analysis Duration (TRT): 9h 4m Est. Total Sleep Time: 8h 35m Overview AHI: 35.9 /h JOSE: 43.9 /h Snore Percentage: 24.0 % Respiratory Indices Index Total Supine Non-supine Count Apneas + Hypopneas (AH): 35.9 /h 29.4 /h 41.4 /h 308 Apneas: 3.3 /h 2.8 /h 3.7 /h 28 Obstructive (OA): 2.6 /h 2.0 /h 3.0 /h 22 Mixed (MA): 0.6 /h 0.8 /h 0.4 /h 5 Central (CA): 0.1 /h 0 /h 0.2 /h 1 Hypopneas: 32.6 /h 26.6 /h 37.7 /h 280 Obstructive (OH): 0 /h 0 /h 0 /h 0 Central (OC): 0 /h 0 /h 0 /h 0 Obstructive Apnea Hypopnea (OA + MA + OH): 3.1 /h 2.8 /h 3.4 /h 27 Central Apnea Hypopnea (CA + CH): 0.1 /h 0 /h 0.2 /h 1 Hypoventilation: 0 /h 0 /h 0 /h 0 Respiration Rate (per m): 14.9 /m 14.9 /m 15.0 /m Percentage of Sleep Duration Snore: 24.0 % 19.6 % 27.8 % 123.8 m Flow Limitation: 10.7 % 9.0 % 12.6 % 18 m [facility] Breathin % 0 % 0 % 0 m Paradoxical Breathin.3 % 38.9 % 6.3 % 109.6 m Oxygen Saturation (SpO2) Total Supine Non-supine Oxygen Desaturation Index (JOSE): 43.9 /h 38.5 /h 48.5 /h Average SpO2: 93.7 % 93.7 % 93.7 % Minimum SpO2: 84.0 % 85.0 % 84.0 % SpO2 Duration < 90% 1.0 % (5.2m) 0.3 % 0.8 % SpO2 Duration <= 87% 0.2 % (1m) 0.6 % 0.1 % SpO2 Duration < 80% 0 % (0m) 0 % 0 % Average Desat Drop: 4.0 % 3.9 % 4.0 % Position and Analysis Time Duration Percentage Supine (in TST): 236.6 m 45.9 % Non-Supine (in TST): 278.5 m 54.1 % Left (in TST): 164.4 m 31.9 % Prone (in TST): 0 m 0 % Right (in TST): 114.1 m 22.1 % Unknown (in TST): 0 m 0 % Upright (in TRT): 29.5 m 5.4 % Movement (in TST): 209.6 m 40.7 % Invalid Data (Excluded): 0 m 0 % Pulse Quality Average: 75.6 bpm Oximeter: 99.8 % Maximum: 103.0 bpm Nasal Cannula: 92.1 % Minimum: 60.0 bpm RIP Belts: 100.0 % Duration < 40 bpm: 0 m Duration > 100 bpm: 0.2 m Duration > 90 bpm: 3.2 m Cardiac Events Index Count Bradycardia 1.9 /h 16 Asystole 0 /h 0 Tachycardia 0.8 /h 7 Atrial Fibrillation 0 /h 0 Trend Overview Patient Notes [employer] Notes Interpretation Notes Analysis Settings Position changes when at least 5 seconds of continuous position is found. The minimum upright position is at 53.13?? angle. Movement is detected when the activity signal exceeds a threshold of 0.2 for a minimum of 1 seconds. Apneas are scored where there is a 90% drop in the Flow signal for between 10 and 120 seconds. Hypopneas are scored where there is a 30% drop in the Flow signal for between 10 and 120 seconds followed by a 4% drop in saturation or an arousal. A tachycardia is added when the heart rate exceeds 100bpm for at least 20 seconds. Bradycardia is scored when the heart rate falls below 40bpm for at least 20 seconds. Limb movements are detected when EMG is above 5 times above the emg background activity for at least 0.5 seconds, but no longer than 10 seconds. PLMs are detected when at least 4 limb movements occur with a minimum interval of 5 seconds and a maximum interval 90 seconds. Body movements exclude limb movements. Desaturations are located when the SpO2 values drop by at least 3% for a minimum duration of 3 seconds with a platau of no more than 45 seconds. Flow limitation is detected when an inhalation has a flattening index value of 0.15 or less. Paradoxical breathing is detected when the phase difference between the abdomen and thorax RIP belts exceeds 40?? for at least 30 seconds. documented in this encounter Plan of Treatment Scheduled Referrals Name Type Priority Associated Diagnoses Orde r Schedule Referral to Sleep Disorders Center Outpatient Referral Routine Morbid obesity Hemicrania continua Hypertension, unspecified type Snoring Ordered: 04/01/2019 documented as of this encounter Visit Diagnoses Diagnosis Obstructive sleep apnea Obstructive sleep apnea (adult) (pediatric) documented in this encounter Care Teams Manager Educational Relationship Specialty Start Date End Date Amada Carson MD [address] [place] [place] [address] PCP - General Family Medicine 08/28/18 01/21/20 documented as of this encounter
--- OUTSIDE RECORDS SUMMARY | 2024-01-13 18:58 | XMS_ITS | Encounter Summary ---
Author Organization [facility] Address [facility] [place] [address] Care Team Providers Care Heel Cutter Name Role Phone Medardo Redman DO Primary Care Provider [phone] Reason for Visit * Reason Comments Medication Refill Encounter Details Date Type Department Care Team (Late st Contact Info) Description 02/19/2018 Refill Neurology at [facility] [place] [address] Alix Mercado MD [facility] [place] [address] Social History Tobacco Use Types Packs/Day Years Used Date Smoking Tobacco: Former Cigarettes 0.3 2 0 10/18/2015 - 10/17/2017 Smokeless Tobacco: Never Alcohol Use Standard Drinks/Week Comments No 0 (1 standard drink = 0.6 oz [...] on filedocumented in this encounter Care Teams Heel Cutter Relationship Specialty Start Date End Date Medardo Redman DO [address] [place] [address] PCP - General Family Medicine 06/22/21 documented as of this encounter
--- OUTSIDE RECORDS SUMMARY | 2024-01-13 18:58 | XMS_ITS | Encounter Summary ---
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 mood and anxiety, and will consider seeing a counselor again in the future. 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 - Start Pantoprazole 40mg daily. If you have abdominal upset, please let us know, and we can increase the dose further. - Occipital nerve block could be trialed/discussed in the future, but given patient's intense allodynia with touch of the right upper side of her body today, was not pursued. Other - Continue to follow up with primary care regarding mood and anxiety. - Not discussed further today, but will consider referral to sleep clinic for ELMA evaluation in theture. - Patient will follow up with her human resources clerk as scheduled (does not desire to see the neuro-human resources clerk at [facility] at this time). Follow-up with Dr. Mercado in 1 month Nuvia Mckinnon MD I certify that I have seen and examined Kimberli Bales on 12/11/[address] Mercado, Headache Fellow. The note reflects the patient's history of presentation, physical findings. The assessment and plan were formulated together in discussion and I have personally reviewed all studies. Ms. Bales is a 31 year old woman with a history headache disorder starting in 2011. 2011: Post delivery of her she had significant blood loss with 8 units to transfusion needed. Following this, she developed a constant headache for 1-2 months, without migraine features or known etiology. 2012 She once again had the abrupt onset of headache on the right side above her eye sometimes going to back to the back of her head. The headache was characterized as stabbing and pulsating and there was some right ear fullness accompanying the pain. She was evaluated and felt to perhaps have idiopathic intracranial hypertension (IIH). Diamox was started. A subsequent LP however found an openingpressure of 25 while taking the Diamox. The LP was repeated with a subsequent opening pressure of 17. She was evaluated by ophthalmology and no papilledema was noted. She was taken off the Diamox following this. The headaches resolved August 2012. June 2017 she had the sudden onset again of right sided headache stabbing in character and was hospitalized in November 15, 2017 because along with the headache, when it was severe, she was having some stuttering of speech. She had has had MRI MRA MRV without diagnostic findings. A lumbar puncture was done and the opening pressure was found to be 4 while taking the Diamox. Since then she continues to have nonstop right sided headaches in the same location with the same stabbing quality. Her examination today was difficult to interpret because of her of functional findings on strength,coordination, and reflex testing. She was hypersensitive to the right side of her head and asked not to be touched there. An occipital nerve block on the right side would otherwise have been considered. In summary she has had daily headache now since June 2017 without any migraine features. Because theheadache is side locked and has some has had ear some ear fullness on the right side, it is reasonable to give her an indomethacin trial to test whether this could be Hemicrania Continua. If she doesnot respond to indomethacin, the most likely diagnosis is New Daily Persistent Headache. In the interim, before she starts the indomethacin, the Diamox will be stopped as it appears not to be needed per several lumbar punctures showing a low to normal opening pressure. This assessment and plan was discussed today with the patient and she agrees to proceed as above. Nuvia Mckinnon MD [facility] Neurology documented in this encounter Plan of Treatment Not on file documented as of this encounter Visit Diagnoses Diagnosis Hemicrania continua New daily persistent headache documented in this encounter Care Teams Press Setup Operator Relationship Specialty Start Date End Date Amada Carson [place] [address] [place] [address] PCP - General 11/18/14 06/08/18 documented as of this encounter
--- OUTSIDE RECORDS SUMMARY | 2024-01-13 18:58 | XMS_ITS | Encounter Summary ---
Author Organization [facility] [address] Care Team Providers Care Negative Turner Apprentice Name Role Phone Amada Carson MD Primary Care Provider [phone] Reason for Visit * Reason Comments Establish Care Ventral Hernia * Consultation (Routine) - Closed Specialty Diagnoses / Procedures Referred By Contac t Referred To Contact Surgical Specialties Diagnoses Ventral hernia without obstruction or gangrene Ventral hernia with obstruction or gangrene, xrays done 09/11/18 Jackie Chavis MD [address] [place] [address] Molly Tang MD [address] [address] Referral ID Status Reason Start Date Expiration Date V isits Requested Visits Authorized [id number] Closed Consult, Test & Treat 09/11/2018 09/11/2019 3 3 Encounter Details Date Type Department Care Team (Late st Contact Info) Description 09/30/2018 1:00 PM EDT Office Visit Surgical Specialties at [facility] [address] [place] [id number] Molly Tang MD [facility] [place] [address] Left upper quadrant pain; Morbid obesity with BMI of 50.0-59.9, adult [...] Sign Reading Time Taken Comments Blood Pressure 130/91 09/30/2018 1:07 PM EDT Pulse 82 09/30/2018 1:07 PM EDT Temperature 36 ??C (96.8 ??F) 09/30/2018 1:07 PM EDT Respiratory Rate 20 09/30/2018 1:07 PM EDT Oxygen Saturation 97% 09/30/2018 1:07 PM EDT Inhaled Oxygen Concentration - - Weight 145.2 kg (320 lb) 09/30/2018 1:07 PM EDT Height 167.6 cm (5' 5.98) 09/30/2018 1:07 PM ED T Body Mass Index 51.67 09/30/2018 1:07 PM EDT documented in this encounter Progress Notes * Molly Tang MD - 09/30/2018 1:00 PM EDT Kimberli Bales is a 32 y.o. female referred by Amada Carson MD regarding a left upper quadrant/rib pain. She states that in April she developed a severe URI, with significant coughing. Inthat context, she developed left anterior rib/abdominal wall pain that has been intermittent but persistent. She continues to be bothered by this if she coughs or sneezes. Other times it is not bothersome at all. She denies feeling a bulge. She has tried flexeril without much improvement. Indomethacin doesn't help. She states this bothers her on average about 3 times a week. Modifiable risk factors for hernias: Body mass index is 51.67 kg/m??. Tobacco: Non smoker Diabetes: Non diabetic Past medical history: Past Medical History: Diagnosis Date ??? Abnormal cervical Papanicolaou smear 09/09/2018 ??? Allergic state ??? Diverticulosis of colon 09/09/2018 ??? Dysuria 07/17/2006 episodes of dysuria and frequency but all negative cultures. If sx develop check Micro, DIRECTOR OF SLOT OPERATIONS or stone. ??? Headache(784.0) 08/20/2012 ??? Post-op bleeding 02/08/2012 Following ??? Pyelonephritis 09/09/2018 ??? Strabismus ??? Urinary tract infection 09/09/2018 ??? UTI (urinary tract infection) patient reported Patient Active Problem List Diagnosis Code ??? Morbid obesity E66.01 ??? Dysplasia of cervix N87.9 ??? Exotropia H50.10 ??? Neurological deficit present R29.818 ??? Anxiety F41.9 ??? 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 Menorrhagia N92.0 ??? Idiopathic intracranial hypertension G93.2 ??? Ventral hernia without obstruction or gangrene K43.9 Past Surgical History: Procedure Laterality Date ??? SECTION N/A 03/25/2010 ??? SECTION N/A 04/24/2011 [facility]; Sherrell Schmidt MD ??? DILATION AND CURETTAGE OF UTERUS N/A 09/16/2015 Menorrhagia; [facility]; Sherrell Schmidt MD ??? HERNIA REPAIR ??? PRO STABISMUS SURG,ONE HORIZ MUSCLE Bilateral 12/31/2013 STRABISMUS SURGERY, ONE HORIZONTAL MUSCLE, JEFF performed by Genevieve Walsh MD at [facility] ??? PRO STABISMUS SURG,TWO HORIZ MUSCLE Right 02/01/2014 STRABISMUS SURGERY, TWO HORIZONTAL MUSCLES performed by Genevieve Walsh MD at [facility] ??? PRO STRABISMUS SURG,PLACE ADJUST SUTURE Right 12/31/2013 STRABISMUS SURGERY, PLACEMENT OF ADJUSTABLE SUTURES IN CONJUNCTION W/ ANOTHER SURGERY performed by Genevieve Walsh MD at [facility] ??? PRO STRABISMUS SURG,SCAR EXTRAOCUL MUSC Right 02/01/2014 STRABISMUS SURGERY WITH SCARRING OF EXTRAOCULAR MUSCLES IN CONJUNCTION W/ ANOTHER SURGERY performedby Genevieve Walsh MD at [facility] ??? SINUS SURGERY ??? TUBAL LIGATION Bilateral 04/24/2011 [facility]; Sherrell Schmidt MD ??? WISDOM TOOTH EXTRACTION N/A 07/01/2002 [facility]; AILEEN RIVERA, LAUREN Medications: Current Outpatient Medications: ??? LORazepam (ATIVAN) 1 mg Tablet, TAKE 1 TABLET BY MOUTH ONCE DAILY NEEDED, Disp: 15 tablet, Rfl: 1 ??? indomethacin (INDOCIN) 25 mg Capsule, Take 1 capsule by mouth 3 times daily. Take with the indomethacin 50 mg tablet for a total of 75 mg TID., Disp: 90 capsule, Rfl: 3 ??? pantoprazole (PROTONIX) 40 mg Tablet, Delayed Release (E.C.), Take 1 tablet by mouth 2 times daily., Disp: 90 tablet, Rfl: 3 ??? indomethacin (INDOCIN) 50 mg Capsule, Take 1 capsule by mouth 3 times daily (with meals)., Disp: 90 capsule, Rfl: 5 ??? citalopram (CELEXA) 40 mg Tablet, Take 40 mg by mouth daily., Disp: , Rfl: Allergies: Oxycodone-acetaminophen and Red dye Social history: reports that she quit smoking about a year ago. Her smoking use included cigarettes. She has a 0.50pack-year smoking history. She has never used smokeless tobacco. She reports that she drinks alcohol. She reports that she does not use drugs. Family History Problem Relation Age of Onset [...] ??? Breast Cancer Paternal Aunt 40 ??? Macular Degeneration Neg Hx ??? Strabismus Neg Hx ??? Thyroid Disease Neg Hx ??? Heart Disease Neg Hx ??? Amblyopia Neg Hx ??? Cancer Neg Hx Review of systems: Review of systems is negative for any unexplained weight loss or weight gain. She denies any cough,chest pain or shortness on breath on exertion. She has no fevers, chills or night sweats. Bowel andbladder elimination is normal. All other system reviews are negative. BP (!) 130/91 (BP Location (NBP): Left arm, Patient Position: Sitting, BP Cuff Sizes: Large Adult (32-43 cm)) Pulse 82 Temp 36 ??C (96.8 ??F) (Temporal) Resp 20 Ht 167.6 cm (5' 5.98) Wt (!) 145.2 kg (320 lb) LMP 01/18/2014 SpO2 97% BMI 51.67 kg/m?? On physical examination, this is a well appearing female with morbid obesity. There is no scleral or skin icterus. Mucous membranes are moist and pupils reactive. Her lungs are clear to auscultation.Heart is regular, rate, and rhythm and without murmurs. Her abdomen is nontender and without palpable masses. She is tender to palpation in the left lower rib cage and left upper quadrant, overlying the rectus muscle. There is no evidence of hernia. Her extremity and neurological exam are grossly normal. Impression: Left upper quadrant/rib pain after a URI this spring, likely due to costochondritis/muscle strain. We reviewed the musculature of the abdominal wall and that this would be a very uncommonlocation for a hernia in the absence of prior surgery. I recommended rest and NSAIDs, and that thisshould slowly improve with time. We also discussed that her weight may be placing some additional st rain on her abdominal wall, and may be contributing to her symptoms. As she was receptive, we discussed weight loss strategies including a referral to the weight and wellness center and bariatric surgery. I briefly reviewed with her that patients who undergo bariatric surgery have improved morbidity, mortality and quality of life relative to patients with morbid obesity who do not have surgery. I provided her with information on how to register for a bariatric program introductory meeting if this is something that she would like to consider in the future. She will follow up with me on a prn basis. * Em Saldivar CMA - 09/30/2018 1:00 PM EDT STOP-BANG Questionnaire BMI: BMI Readings from Last 1 Encounters: 09/30/18 51.67 kg/m?? Age: 32 y.o. Sex: female STOP 1. Do you snore loudly (louder than talking or loud enough to hear through closed doors?) Yes 2. Do you often feel tired, fatigued, or sleepy during the daytime? No 3. Has anyone observed you stop breathing during your sleep? No 4. Do you have, or have you ever, been treated for high blood pressure? No BANG 1. Is BMI more than 35? Yes 2. Age over 50? No 3. Is neck circumference greater than 16 inches (40 cm)? No 4. Is gender male? No Total Score: 2 High Risk of ELMA: YES 5-8 Intermediate Risk of ELMA: YES 3-4 Low Risk of ELMA: YES 0-2 documented in this encounter Plan of Treatment Not on file documented as of this encounter Procedures Procedure Name Priority Date/Time Associated Diagnosis Comments AMB REFERRAL TO GENERAL SURGERY Routine 09/30/2018 3:41 PM EDT Ventral hernia without obstruction or gangrene documented in this encounter Results * Referral to General Surgery (09/30/2018 3:41 PM EDT) Jackie Chavis MD OUTPATIENT REFERRAL ORDERABLES documented in this encounter Visit Diagnoses Diagnosis Left upper quadrant pain Abdominal pain, left upper quadrant Morbid obesity with BMI of 50.0-59.9, adult Morbid obesity documented in this encounter Care Teams Negative Turner Apprentice Relationship Specialty Start Date End Date Amada Carson MD [address] [place] [address] PCP - General Family Medicine 08/28/18 01/21/20 documented as of this encounter
--- OUTSIDE RECORDS SUMMARY | 2024-01-13 18:58 | XMS_ITS | Encounter Summary ---
[place] [address] Care Team Providers Care Glaze Handler Name Role Phone Amada Carson MD Primary Care Provider [phone] Reason for Visit * Reason Comments Headache Encounter Details Date Type Department Care Team (Late st Contact Info) Description 12/04/2017 2:49 PM EDT - 12/04/2017 6:49 PM EDT [place] [phone] Discharge Disposition: Left Without Being Seen after Triage Social History Tobacco Use Types Packs/Day Years Used Date Smoking Tobacco: Some Days Cigarettes 0.3 2 Started: 06/18/2007; Last attempted to quit: 06/17/2009 Smokeless Tobacco: Never Alcohol Use Standard Drinks/Week Comments Yes 0 (1 standard drink = 0.6 oz pur e alcohol) socially Sex and Gender Information Value Date Recorded Sex Assigned at Not on file Gender Identity Not on file Sexual Orientation Not on file documented as of this encounter Last Filed Vital Signs Vital Sign Reading Time Taken Comments Blood Pressure 165/89 12/04/2017 5:48 PM EDT Pulse 76 12/04/2017 5:48 PM EDT Temperature 36.7 ??C (98.1 ??F) 12/04/2017 5:48 PM ED T Respiratory Rate 18 12/04/2017 5:48 PM EDT Oxygen Saturation 97% 12/04/2017 5:48 PM EDT Inhaled Oxygen Concentration - - Weight 135.2 kg (298 lb) 12/04/2017 2:56 PM EDT Height 167.6 cm (5' 6) 12/04/2017 2:56 PM EDT Body Mass Index 48.1 12/04/2017 2:56 PM EDT documented in this encounter Medications at Time of Discharge Medication Sig Dispensed Refills Start Date End Date acetaZOLAMIDE (DIAMOX) 125 mg Tablet Take 125 mg by mouth every morning. 12/11/2017 acetaZOLAMIDE (DIAMOX) 500 mg Capsule, Sustained Release Take 500 mg by mouth every evening. 12/11/2017 citalopram (CELEXA) 40 mg Tablet Take 40 mg by mouth daily. 02/16/2019 LORazepam (ATIVAN) 1 mg Tablet Take 1 mg by mouth as needed for Anxiety. 09/08/2018 riboflavin, vitamin B2, 100 mg Tablet Take 300 mg by mouth daily. 01/17/2018 magnesium 250 mg Tablet Take 500 mg by mouth daily. 01/17/2018 Potassium 99 mg Tablet Take 99 mg by mouth daily. 01/17/2018 ubiquinone (COENZYME Q10) 10 mg Capsule Take 10 mg by mouth daily. 01/17/2018 ACETAMINOPHEN (TYLENOL ORAL) Take 325 mg by mouth as needed. 07/22/2018 documented as of this encounter Plan of Treatment Not on file documented as of this encounter Visit Diagnoses Not on filedocumented in this encounter Care Teams Glaze Handler Relationship Specialty Start Date End Date Amada Carson MD [address] [place] [address] PCP - General 11/18/14 06/08/18 documented as of this encounter
--- OUTSIDE RECORDS SUMMARY | 2024-01-13 18:58 | XMS_ITS | Encounter Summary ---
Author Organization [facility] Address [facility] [place] [address] Care Team Providers Care Remedial Teacher Name Role Phone Amada Carson MD Primary Care Provider [phone] [phone] Reason for Visit * Reason Comments Panic Attack Encounter Details Date Type Department Care Team (Late st Contact Info) Description 12/29/2017 9:58 PM EST - 12/29/2017 10:42 PM EST [place] [phone] Marita Kate MD [facility] [place] [address] Dyspnea, unspecified type; Chest discomfort; Anxiety Discharge Disposition: Home Social History Tobacco Use [...] Sign Reading Time Taken Comments Blood Pressure 179/82 12/29/2017 10:37 PM EST Pulse 93 12/29/2017 10:28 PM EST Temperature 37 ??C (98.6 ??F) 12/29/2017 10:28 PM EST Respiratory Rate 16 12/29/2017 10:28 PM EST Oxygen Saturation 100% 12/29/2017 10:28 PM EST Inhaled Oxygen Concentration - - Weight - - Height - - Body Mass Index - - documented in this encounter Discharge Instructions * Discharge Instructions* Vernon Alex MD - 12/29/2017 10:32 PM EST You were seen in the [facility] Emergency Department for chest discomfort, shortness of breath, and anxiety. You are leaving AGAINST MEDICAL ADVICE before testing and evaluation can be performed on your heart and lungs. As we discussed, the risk of leaving AGAINST MEDICAL ADVICE is that she could have anundiagnosed heart problem, including heart attack, could lead to . If you begin to have fevers, increased pain that does not respond to your pain medications, difficulty breathing, passing out, persistent nausea and vomiting, inability to tolerate oral intake, or if you develop any new symptoms or have any other concerns, please return to the Emergency Department. You should see your primary care doctor in the next 1 days to follow up on your symptoms. * Attachments The following attachments cannot be sent through Care Everywhere. * SOB (SHORTNESS OF BREATH) ([place]OTSWANAN) * ANXIETY DISORDER ([place]NAN) * CHEST PAIN (BOT[place]NAN) documented in this encounter Medications at Time of Discharge Medication Sig Dispensed Refills Start Date End Date indomethacin (INDOCIN) 25 mg Capsule Start 25mg three times a day for 1 week, and then increase to 50mg three times a day. 30 capsule 12 12/11/2017 01/17/2018 pantoprazole (PROTONIX) 40 mg Tablet, Delayed Release (E.C.) Take 1 tablet by mouth daily. 90 tablet 3 12/11/2017 07/22/2018 citalopram (CELEXA) 40 mg Tablet Take 40 [...] needed. 07/22/2018 documented as of this encounter ED Notes * Jluis Zhao - 12/29/2017 10:38 PM EST Patient elected to leave against medical advice and that she believes all she needs in a good nightsleep. Patient signed AMA form and left ED. Vitals WNL and skin pwd and patient feels as though hersymptoms have resolved * Vernon Alex MD - 12/29/2017 10:21 PM EST ED Resident Note Kimberli Bales is an 32 y.o. female who presents to the ED with: Chief Complaint Patient presents with ??? Panic Attack I saw this patient on 12/29/2017. History is from pt and partner. HPI Kimberli Blaes is a 32 y.o. female with history of anxiety and pseudotumor cerebri who presentsto the Emergency Department with concern for panic attack. At approximately 2100 tonight, patient was going to sleep when she had sudden onset shortness of breath, chest pressure, headache, and nausea, as well as a sense of disorientation. She states that it feels like her usual panic attack symptoms but on steroids. She called the ambulance, but by the time of ED arrival says that her symptoms have fully resolved. She did stop her citalopram XR approximately 1 week ago abruptly, but statesthat she has been feeling well recently with no recent fevers or known infections. Review of Systems: Review of Systems Constitutional: Negative for fever. HENT: Negative for sore throat. Eyes: Negative for visual disturbance. Respiratory: Positive for chest tightness and shortness of breath. Negative for cough. Cardiovascular: Positive for chest pain. Gastrointestinal: Positive for nausea. Negative for abdominal pain and blood in stool. Genitourinary: Negative for hematuria. Musculoskeletal: Negative for joint swelling. Skin: Negative for rash. Neurological: Positive for headaches. Negative for syncope. Physical Exam: Patient Vitals for the past 24 hrs: Temp Pulse Resp SpO2 12/29/17 2228 37 ??C (98.6 ??F) 93 16 100 % GEN: No acute distress. HEENT: Oropharynx clear, pink, and moist. No meningismus. PULM: No resp distress. Clear bilaterally. CV: Normal rate. No murmur. ABD: Soft, nondistended, nttp. MSK: No gross deformities. NEURO: AAOx3. PERRL. No gross CN deficits. Light touch intact face & body. Moves extremities equally. PSYCH: Normal mood and thought pattern. SKIN: No rashes. ED Course: - Patient seen under the supervision of the attending physician. - Medications, allergies, and past medical history reviewed. No results found for this or any previous visit (from the past 24 hour(s)). ED Course as of Dec 30 2231 Sun Dec 29, [id number] Patient PERCS out for PE 2229 Patient expressed desire to avoid testing and to leave AMA Assessment and Plan: 32 y.o. female with chest discomfort, shortness of breath, and anxiety 32-year-old female with history of anxiety presenting with constellation of clinical signs and symptoms suggestive of anxiety attack. Rules out for PE by PERC. Afebrile, hemodynamically stable, and in no acute distress. That said, evaluation for ACS or other acute life-threatening conditions was unable to be performed prior to patient electing to leave AMA. The patient elected to leave AGAINST MEDICAL ADVICE. Patient is able to express a preference; patient understands factual information abouthis/her disease and the offered therapies, including risks and benefits thereof; patient appreciates the seriousness of his/her condition and the consequences of the decision not to be hospitalized or treated; and patient is able to describe his/her decision-making process in clear, logical terms (stress at the ED was worsening her anxiety, and she wished to follow-up with her PCP in the morning). As such, the patient has medical decision-making capacity and may leave AMA. Plan for discharge AMA with follow- up to PCP in the morning. Return precautions were verbally discussed and written in discharge instructions. The patient and/or family expressed understanding that they could come back to the ED at any time and agreed to the follow-up plan. Vernon Alex MD Resident 12/29/172233 Associated attestation - Marita Kate MD - 01/09/2018 4:04 AM EST ED ATTENDING ATTESTATION NOTE The patient was [...] resident note above unless noted otherwise below. documented in this encounter Plan of Treatment Scheduled Orders Name Type Priority Associated Diagnoses Orde r Schedule EKG 12 Lead ECG STAT One Time for 1 Occurrences starting 12/29/2017 until 12/29/2017 documented as of this encounter Visit Diagnoses Diagnosis Dyspnea, unspecified type Chest discomfort Other chest pain Anxiety Anxiety state, unspecified documented in this encounter Care Teams Remedial Teacher Relationship Specialty Start Date End Date Amada Carson MD [address] [place] [address] PCP - General 11/18/14 06/08/18 documented as of this encounter
--- OUTSIDE RECORDS SUMMARY | 2024-01-13 18:58 | XMS_ITS | Encounter Summary ---
Author Organization [facility] Address [facility] [place] [address] Care Team Providers Care Credit Review Manager Name Role Phone Amada Carson MD Primary Care Provider [phone] [phone] Encounter Details Date Type Department Care Team (Late st Contact Info) Description 10/28/2017 External Results Laboratory at [facility] [address] [place] [id number] Amada Carson MD [address] [facility] [place] [address] Social History Tobacco Use Types Packs/Day Years [...] Procedure Name Priority Date/Time Associated Diagnosis Comments BASIC METABOLIC PANEL Routine 10/28/2017 9:50 AM EDT documented in this encounter Results * (ABNORMAL) Basic Metabolic Panel (non-fasting) (10/28/2017 9:50 AM EDT) Sodium 136([facility]) 135 - 145 mmol/L [facility] Potassium 4.2([facility]) 3.5 - 5.1 mmol/L [facility] Chloride 105([facility]) 98 - 107 mmol/L [facility] Carbon Dioxide 23(Externa l Lab) 21 - 32 mmol/L [facility] Anion Gap 12.2(Exter nal Lab) 9 - 16.5 mmol/L [facility] Osmolality 263([facility]) 261 - 280 mosm/kg [facility] Glucose 106([facility]) 74 - 106 mg/dL [facility] Blood Urea Nitrogen 11(Externa l Lab) 7 - 18 mg/dL [facility] Creatinine 0.76(Exter nal Lab) 0.55 - 1.02 mg/dL [facility] BUN/Cre Ratio 14.5(Exter nal Lab) 7.0 - 25.0 [facility] Est Glomerular Filtration Rate > 60(Externa l Lab) mL/min [facility] Comment: Estimated GFR is to assist you in evaluating your patient and optimizing drug dosing. Per NKDBP, they classify normal renal function as any GFR > 60 ml/min/1.72m2; chronic kidney disease when GFR <60, and renal failure when GFR <15. ??This calculation may not be valid for patients with atypical muscle mass (very lean or obese), acute renal failure, and in patients with diabetic kidney disease. Calcium 9.2([facility]) 8.5 - 10.1 mg/dL [facility] 10/28/2017 9:50 AM EDT 10/28/2017 10:25 AM EDT Amada Carson MD CHEMISTRY ORDERAB LES [facility] [address] [facility] [place] [address] documented in this encounter Visit Diagnoses Not on filedocumented in this encounter Care Teams Credit Review Manager Relationship Specialty Start Date End Date Amada Carson MD [address] [facility] [place] [address] PCP - General 11/18/14 06/08/18 documented as of this encounter
--- OUTSIDE RECORDS SUMMARY | 2024-01-13 18:58 | XMS_ITS | Encounter Summary ---
Author Organization [facility] [place] [address] Care Team Providers Care Longwall Shearer Operator Name Role Phone Amada Carson MD Primary Care Provider [phone] [phone] Encounter Details Date Type Department Care Team (Late st Contact Info) Description 05/29/2017 Orders Only Radiology and Cardiology Results [address] [place] [phone] Apd Conversion, Results Provider, Social History Tobacco Use Types Packs/Day Years [...] Procedure Name Priority Date/Time Associated Diagnosis Comments PRO-BRAIN NATRIURETIC PEPTIDE Routine 05/29/2017 3:59 PM EDT documented in this encounter Results * (ABNORMAL) pro-Brain Natriuretic Peptide (05/29/2017 3:59 PM EDT) NT-proBNP 156(ExtH) 0 - 125 pg/mL [facility] CONVERSION 05/29/2017 3:59 PM EDT Results Provider Apd Conversion MD GAVINO GALARZA ORDERABLES [facility] CONVERSION documented in this encounter Visit Diagnoses Not on filedocumented in this encounter Care Teams Longwall Shearer Operator Relationship Specialty Start Date End Date Amada Carson MD [address] [place] [address] PCP - General Family Medicine 08/28/18 01/21/20 documented as of this encounter
--- OUTSIDE RECORDS SUMMARY | 2024-01-13 18:58 | XMS_ITS | Encounter Summary ---
Author Organization [facility] [place] [address] Care Team Providers Care Forming Tube Selector Name Role Phone Amada Carson MD Primary Care Provider [phone] Encounter Details Date Type Department Care Team (Late st Contact Info) Description 02/04/2017 Abstract [facility] Conversion Results [address] [place] [phone] Apd Conversion, Flowsheet Provider, Social History Tobacco Use Types Packs/Day [...] Sign Reading Time Taken Comments Blood Pressure 132/88 02/04/2017 2:29 PM EST Shefali rced from APD Conversion Pulse - - Temperature - - Respiratory Rate - - Oxygen Saturation - - Inhaled Oxygen Concentration - - Weight - - Height - - Body Mass Index - - documented in this encounter Plan of Treatment Not on file documented as of this encounter Visit Diagnoses Not on filedocumented in this encounter Care Teams Forming Tube Selector Relationship Specialty Start Date End Date Amada Carson MD [address] [place] [address] PCP - General 06/09/18 08/27/18 documented as of this encounter
--- OUTSIDE RECORDS SUMMARY | 2024-01-13 18:58 | XMS_ITS | Encounter Summary ---
Author Organization [facility] Address [facility] [place] [address] Care Team Providers Care Steam Turbine Operator Name Role Phone Amada Carson MD Primary Care Provider [phone] Encounter Details Date Type Department Care Team (Late st Contact Info) Description 05/10/2018 Interpretation Only [facility] [address] [place] [phone] Vernon Rossi MD [address] [place] [address] Social History Tobacco Use Types Packs/Day Years [...] Name Priority Date/Time Associated Diagnosis Comments XR CHEST PA AND LATERAL Routine 05/10/2018 10:44 PM EDT documented in this encounter Results * XR Chest PA & Lateral (Generic) (05/10/2018 10:44 PM EDT) Anatomical Region Laterality Modality Chest N/A Radiographic Shana ging 05/10/2018 10:4 4 PM EDT Impressions 05/10/2018 11:49 PM EDT No acute cardiopulmonary process. Thank you for letting us participate in the care of this patient. For questions regarding this report, please contact the number below. ? Electronically signed by: Em Rolle [facility] ([phone]), at 05/10/2018 11:44 PM Narrative 05/10/2018 11:49 PM EDT EXAMINATION: CHEST PA/LAT (2VWS) -ROUTN CLINICAL HISTORY: COU - COUGH TECHNIQUE: 2 views COMPARISON: April 26, 2018 FINDINGS: Lungs are clear and without focal consolidation. The cardiomediastinal silhouette and pulmonary vasculature are within normal limits. No pleural effusion or pneumothorax. Bones are unremarkable. Procedure Note Em Rolle MD - 05/10/2018 EXAMINATION: CHEST PA/LAT (2VWS) -ROUTN CLINICAL HISTORY: COU - COUGH TECHNIQUE: 2 views COMPARISON: April 26, 2018 FINDINGS: Lungs are clear and without focal consolidation. The cardiomediastinal silhouette and pulmonary vasculature are within normal limits. Nopleural effusion or pneumothorax. Bones are unremarkable. IMPRESSION No acute cardiopulmonary process. Thank you for letting us participate in the care of this patient. Forquestions regarding this report, please contact the number below. Electronically signed by: DELVIS Young [facility]([phone]), at 05/10/2018 11:44 PM Vernon Rossi MD IMG DX ORDERABLES documented in this encounter Visit Diagnoses Not on filedocumented in this encounter Care Teams Steam Turbine Operator Relationship Specialty Start Date [place] [address] PCP - General 11/18/14 06/08/18 documented as of this encounter
--- OUTSIDE RECORDS SUMMARY | 2024-01-13 18:58 | XMS_ITS | Encounter Summary ---
Author Organization [facility] [place] [address] Care Team Providers Care Whipper Beater Name Role Phone Amada Carson MD Primary Care Provider [phone] Reason for Visit * Reason Onset Date Comments Medication Refill 09/30/2018 Encounter Details Date Type Department Care Team (Late st Contact Info) Description 09/30/2018 Refill Neurology at [facility] [place] [place] [address] Ted Mckinnon [place] [address] Social History Tobacco Use Types Packs/Day Years [...] on filedocumented in this encounter Care Teams Whipper Beater Relationship Specialty Start Date End Date Amada Carson MD [address] [place] [address] PCP - General Family Medicine 08/28/18 01/21/20 documented as of this encounter
--- OUTSIDE RECORDS SUMMARY | 2024-01-13 18:58 | XMS_ITS | Encounter Summary ---
Author Organization [facility] [place] [address] Care Team Providers Care Color Sprayer Name Role Phone Amada Carson MD Primary Care Provider [phone] Encounter Details Date Type Department Care Team (Late st Contact Info) Description 10/03/2017 Abstract [facility] Conversion Results [address] [place] [phone] Apd Conversion, Flowsheet Provider, Social History Tobacco [...] Sign Reading Time Taken Comments Blood Pressure 136/82 10/03/2017 4:39 PM EDT Shefali rced from APD Conversion Pulse - - Temperature - - Respiratory Rate - - Oxygen Saturation - - Inhaled Oxygen Concentration - - Weight - - Height - - Body Mass Index - - documented in this encounter Plan of Treatment Not on file documented as of this encounter Visit Diagnoses Not on filedocumented in this encounter Care Teams Color Sprayer Relationship Specialty Start Date End Date Amada Carson MD [address] [place] [address] PCP - General 06/09/18 08/27/18 documented as of this encounter
--- OUTSIDE RECORDS SUMMARY | 2024-01-13 18:58 | XMS_ITS | Encounter Summary ---
Author Organization [facility] [place] [address] Care Team Providers Care Senior Group Manager Name Role Phone Amada Carson MD Primary Care Provider [phone] Reason for Referral * Consultation (Routine) - Closed Specialty Diagnoses / Procedures Referred By Contjaqueline t Referred To Contact Surgical Specialties Diagnoses Ventral hernia without obstruction or gangrene Ventral hernia with obstruction or gangrene, xrays done 09/11/18 Jackie Chavis MD [address] [place] [address] Molly Tang MD [address] [place] [address] Referral ID Status Reason Start Date Expiration Date V isits Requested Visits Authorized [id number] Closed Consult, Test & Treat 09/11/2018 09/11/2019 3 3 Reason for Visit * Reason Comments Abdominal Pain Encounter Details Date Type Department Care Team (Late st Contact Info) Description 09/11/2018 2:30 PM EDT Office Visit Primary Care at [facility] [address] [place] [phone] Jackie Chavis MD [address] [place] [address] Ventral hernia without obstruction or gangrene Social History Tobacco Use Types Packs/Day Years [...] Sign Reading Time Taken Comments Blood Pressure 124/76 09/11/2018 2:00 PM EDT Pulse 87 09/11/2018 2:00 PM EDT Temperature 36.7 ??C (98 ??F) 09/11/2018 2:00 PM EDT Respiratory Rate - - Oxygen Saturation 98% 09/11/2018 2:00 PM EDT Inhaled Oxygen Concentration - - Weight 145.4 kg (320 lb 8.8 oz) 09/11/2018 2:00 PM EDT Height 167.6 cm (5' 5.98) 09/11/2018 2:00 PM ED T Body Mass Index 51.76 09/11/2018 2:00 PM EDT documented in this encounter Progress Notes * Anay Hernadez, FREIGHT BOOKER - 09/11/2018 2:30 PM EDT Subjective: HPI: Kimberli Bales is a 32 y.o. female presenting to the [facility]. Left sided abdominal pain. Patient admits that roughly 1 month ago she coughed and felt a sharp pain in her left abdomen. It went away then a couple weeks ago it came back in the same area. She triedFlexeril to see if it was muscle related but it didn't help. Pain increased with a cough, lifting and sneezing. No increased pain with a sit up. Nothing helps her pain. ROS: Review of Systems Constitutional: Positive for fatigue. Gastrointestinal: Positive for abdominal pain. Objective: VS: BP 124/76 (BP Location (NBP): Left arm, Patient Position: Sitting, BP Cuff Sizes: Large Adult (32-43 cm)) Pulse 87 Temp 36.7 ??C (98 ??F) (Oral) Ht 167.6 cm (5' 5.98) Wt (!) 145.4 kg (320 lb 8.8 oz) LMP 01/18/2014 SpO2 98% BMI 51.76 kg/m?? Physical Exam Constitutional: She appears well-developed and well-nourished. Cardiovascular: Normal rate, regular rhythm, normal heart sounds and intact distal pulses. Pulmonary/Chest: Effort normal and breath sounds normal. Abdominal: Soft. Bowel sounds are normal. Difficut to assess hernia due to aidipous tussue. Assessment and Plan: Kimberli was seen today for abdominal pain. Diagnoses and all orders for this visit: Ventral hernia without obstruction or gangrene - XR Chest PA & Lateral (Generic); Future - Referral to General Surgery this could represent also a right low rib fx. Will order cxr. There are no Patient Instructions on file for this visit. FOLLOWUP: Return in about 1 month (around 10/09/2018). documented in this encounter Plan of Treatment Not on file documented as of this encounter Procedures Procedure Name Priority Date/Time Associated Diagnosis Comments AMB REFERRAL TO GENERAL SURGERY Routine 09/30/2018 3:41 PM EDT Ventral hernia without obstruction or gangrene documented in this encounter Results * Referral to General Surgery (09/30/2018 3:41 PM EDT) Jackie Chavis MD OUTPATIENT REFERRAL ORDERABLES * XR Chest PA & Lateral (Generic) (09/11/2018 3:06 PM EDT) Anatomical Region Laterality Modality Chest N/A Digital Radiogra phy Impressions 09/11/2018 3:54 PM EDT No acute cardiopulmonary process. No pneumoperitoneum seen. I have personally reviewed the image(s) and the residents interpretation and agree with the findings, Andra De Jesus at 09/11/2018 3:54 PM Thank you for letting us participate in the care of this patient. For questions regarding this report, please contact the number below. ? Narrative 09/11/2018 3:54 PM EDT EXAMINATION: XR CHEST PA AND LATERAL (GENERIC) CLINICAL HISTORY: left sided abdominal pain TECHNIQUE: Frontal and lateral views of the chest COMPARISON: PA and lateral projections of the chest from 05/10/2018 FINDINGS: The lungs are clear. Cardiomediastinal silhouette, ariane, and pulmonary vasculature are within normal limits. No pneumothorax or pleural effusion. Imaged portion of the upper abdomen is unremarkable. Specifically, no pneumoperitoneum seen. The bones are unremarkable. Procedure Note Andra De Jesus MD - 09/11/2018 EXAMINATION: XR CHEST PA AND LATERAL (GENERIC) CLINICAL HISTORY: left sided abdominal pain TECHNIQUE: Frontal and lateral views of the chest COMPARISON: PA and lateral projections of the chest from 05/10/2018 FINDINGS: The lungs are clear. Cardiomediastinal silhouette, ariane, and pulmonary vasculature are within normal limits. No pneumothorax or pleuraleffusion. Imaged portion of the upper abdomen is unremarkable. Specifically, no pneumoperitoneum seen. The bones are unremarkable. IMPRESSION No acute cardiopulmonary process. No pneumoperitoneum seen. I have personally reviewed the image(s) and the residents interpretationand agree with the findings, Andra De Jesus at 09/11/2018 3:54 PM Thank you for letting us participate in the care of this patient. Forquestions regarding this report, please contact the number below. Jackie Chavis MD IMG DX ORDERABLES documented in this encounter Visit Diagnoses Diagnosis Ventral hernia without obstruction or gangrene Ventral hernia, unspecified, without mention of obstruction or gangrene Ventral hernia without obstruction or gangrene Ventral hernia, unspecified, without mention of obstruction or gangrene documented in this encounter Care Teams Senior Group Manager Relationship Specialty Start Date End Date Amada Carson MD [address] [place] [address] PCP - General Family Medicine 08/28/18 01/21/20 documented as of this encounter
--- OUTSIDE RECORDS SUMMARY | 2024-01-13 18:58 | XMS_ITS | Encounter Summary ---
Author Organization [facility] [place] [address] Care Team Providers Care Motion Picture Equipment Supervisor Name Role Phone Amada Carson MD Primary Care Provider [phone] [phone] Encounter Details Date Type Department Care Team (Late st Contact Info) Description 02/19/2018 Abstract [facility] Conversion Results [address] [place] [phone] Apd Conversion, Flowsheet Provider, Social History Tobacco [...] Concentration - - Weight - - Height 168 cm (5' 6.14) 02/19/2018 3:2 7 PM EST Sourced from APD Conversion Body Mass Index - - documented in this encounter Plan of Treatment Not on file documented as of this encounter Visit Diagnoses Not on filedocumented in this encounter Care Teams Motion Picture Equipment Supervisor Relationship Specialty Start Date End Date Amada Carson MD [address] [place] [address] PCP - General 06/09/18 08/27/18 documented as of this encounter
--- OUTSIDE RECORDS SUMMARY | 2024-01-13 18:58 | XMS_ITS | Encounter Summary ---
Author Organization [facility] Address [facility] [place] [address] Care Team Providers Care It Account Manager Name Role Phone Amada Carson MD Primary Care Provider [phone] [phone] Encounter Details Date Type Department Care Team (Late st Contact Info) Description 09/30/2018 Telephone Neurology at [facility] [place] [address] Ted Mckinnon MD [facility] [place] [address] Social History Tobacco Use Types Packs/Day Years [...] Telephone Encounter - Mary Sewell RN - 09/30/2018 2:30 PM EDT Fax received from [place] at [facility]. Lakia is concerned that Kimberli is taking more than recommended max dose of 200 mg a day of indomethacin. I confirmed today with Kimberli that is taking 75 mg tid with protonix 40 mg bid. After discussion with Dr. 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 Copies of studies can be provided. Lakia is satisfied with this explanation. New Rx for protonix sent to [facility] for 40 mg bid as insurance requires new rx and prior authorization. Lakia recommends lab work every 3 months to monitor for risk of bleeding and kidney dysfunction. Patient notified new rx was sent to [facility]. Provider notified. documented in this encounter Plan of Treatment Not on file documented as of this encounter Visit Diagnoses Not on filedocumented in this encounter Care Teams It Account Manager Relationship Specialty Start Date End Date Amada Carson MD [address] [place] [address] PCP - General Family Medicine 08/28/18 01/21/20 documented as of this encounter
--- OUTSIDE RECORDS SUMMARY | 2024-01-13 18:58 | XMS_ITS | Encounter Summary ---
Author Organization Formerly [facility], 1928–1983 Address [facility] [place] [address] Care Team Providers Care Security System Administrator Name Role Phone Amada Carson MD Primary Care Provider [phone] [phone] Reason for Visit * Reason Comments Headache Encounter Details Date Type Department Care Team (Late st Contact Info) Description 01/17/2018 11:30 AM EST [place] [address] Eusebia Nelson MD [facility] [place] [address] Alix Mercado MD [facility] [place] [address] Hemicrania continua Social History Tobacco Use Types [...] Sign Reading Time Taken Comments Blood Pressure 156/82 01/17/2018 11:18 AM EST Pulse 87 01/17/2018 11:18 AM EST Temperature - - Respiratory Rate - - Oxygen Saturation - - Inhaled Oxygen Concentration - - Weight 137.4 kg (303 lb) 01/17/2018 11:18 AM EST reported Height 167.6 cm (5' 6) 01/17/2018 11:18 AM EST reported Body Mass Index 48.91 01/17/2018 11:18 AM EST documented in this encounter Progress Notes * Eusebia Nelson MD - 01/17/2018 11:30 AM EST Neurology Attending Note Eusebia Nelson MD (Pg [phone]) I certify that I have seen and examined Kimberli Bales on 01/17/[address] Mercado, Headache Fellow. The note reflects the patient's history of presentation, physical findings. The assessment and plan were formulated together in discussion and I have personally reviewed all studies. Patient is presenting for f/u evaluation - on indomethacin 50mg TID Consistent with hemicrania continua * Alix Mercado MD - 01/17/2018 11:30 AM EST Neurology Headache Clinic Follow-up Patient Name: Kimberli Bales CC: Headache follow up from 12/11/17 HPI: 31 year old female with history of strabismus (s/p bilateral lateral rectus recessions, and repeat right lateral rectus recession), and headaches with ?IIH diagnosis in the past, presenting for follow up of headaches. Headache History Briefly, she used to be followed by [...] Briefly, she noted that headaches returned May-June 2017. Appears PCP started patient on vitamin supplements and Diamox based on past questionable diagnosis of IIH. Dose was lowered from 1000mg daily to 125/500mg due to [...] not yet occurred. From discussion with patient at our first visit Patient confirms that headaches first started in 2011, after complicated delivery of one of her children requiring blood transfusion. Headaches were initially intermittent, and not bothersome overall. Pain would come and go in her bilateral temples, occurring a few times a month. Pain would last a day, and was pounding. Would wax and wane in severity. No associated symptoms were noted. In the winter of 2012, headaches then changed. One day she suddenly [...] around her eye extending to her right sikh. Pain would fluctuate in severity, but never [...] night with a headache over her right eye/sikh, that has persisted constantly since. Headache is [...] despite treatment with diamox and vitamin supplementation. Based on evaluation of clinical information and work up, patient did NOT meet ICHD-3 criteria for IIH. She did note two separate episodes with side-locked, right sided pain with fullness/ear pain, puffiness of her right eye, general imbalance and stuttering. Pain episodes were continuous, with exacerbations lasting less than one minute. Differential included Hemicrania continuua and NDPH. Startedpatient on trial of Indomethacin, and discontinued Diamox (OP 4cm H20). To note, patient had multiple symptoms (perceived incoordination, weakness, stuttering) with functional examination (changes in sensation, giveway weakness, reflex testing inconsistencies) with reassuring work up including extensive imaging of her brain and vasculature, multiple LPs, inflammatory marker testing and TSH, suggestive of somatization disorder in the setting of anxiety and depression.Was counseled to follow up with PCP and consider counseling again in the future. INTEIRM Went to the ED for a panic attack, left AMA before full evaluation could be completed. Patient notes that her right sided headaches have completely resolved since increasing indomethacinfrom 25mg TID to 50mg TID. She has been tolerating the medication well, continuing on daily protonix. Has had a few on the left side now, that feels like a regular old headache on the top of her lefthead. Goes away in 2 hours with excedrin. Off the other vitamin supplements. Gets the left sided headaches maybe 3 times in the last 1.5 months. No associated symptoms, and the headaches do not affect her ability to function. Additional Hx: Can have fullnesss in ears, stuttering, tinnitus At times, can have difficulty focusing and see doubling only in her right eye. Has some cutaneous allodynia Has neck pain with the headaches. Headaches can make physical activity more difficult Aura: None Prodrome: None Triggers: None Alleviating factors: None HAs have impact on work, school or recreational activities: /30 Missed days from work/school per month: 24/30 days (she works from home) Sleep: 7PM, [...] the sulcus. Well seen on the 3-D [id number] images without evidence of flow related signal. [...] brain with contrast 05/21/12 Current Pain/Mood Medications: Indomethacin 50mg TID Pantoprazole 40mg daily Citalopram 40mg daily - years Tylenol PRN - hasn't used since November 2017 Excedrin - took 3 times in the last 1.5 months Ativan 1mg PRN - a few times [...] Q10 Vit. B2(riboflavin) [place] Feverfew Melatonin Ketamine Benton Percocet Vicodin Oxycodone Dilaudid Tramadol Morphine Marijuana Ativan(lorazepam) Xanax(alprazolam) Spring TMS Cefaly headband nVNS/Gammacore Medical History Past Medical History: Diagnosis Date ??? Allergic state ??? Pseudotumor cerebri ??? Strabismus Social History Social History Socioeconomic History ??? Marital status: Spouse name: Not on file ??? Number of children: 2 ??? Years of education: Not on file ??? Highest education level: Not on file Social Needs ??? Financial resource strain: Not on file ??? Food insecurity - worry: Not on file ??? Food insecurity - inability: Not on file ??? Transportation needs - medical: Not on file ??? Transportation needs - non-medical: Not on file Occupational History ??? 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 Smoking status: Former Smoker Packs/day: 0.25 Years: 2.00 Pack years: 0.50 Types: Cigarettes Last attempt to quit: 10/17/2017 Years since quittin.2 ??? Smokeless tobacco: Never Used Substance and Sexual Activity ??? Alcohol use: No Frequency: Never ??? Drug use: No ??? Sexual activity: Yes Partners: Male control/protection: Surgical Comment: tubal ligation Other Topics Concern ??? Not on file Social History Narrative with 2 young children. 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 Family History Family History Problem Relation Age of Onset ??? Hypertension Father ??? Retinal Detachment Father ??? Diabetes Father ??? Cataracts Maternal Grandmother ??? Diabetes Maternal Grandmother ??? Glaucoma Maternal Grandmother ??? Cerebrovascular Accident Maternal Grandmother ??? Cataracts Maternal Grandfather ??? Cerebral Aneurysm Paternal Grandmother ??? Macular Degeneration Neg Hx ??? Strabismus Neg Hx ??? Thyroid Disease Neg Hx ??? Heart Disease Neg Hx ??? Amblyopia Neg Hx ??? Cancer Neg Hx Review of systems unchanged from prior visit, negative in 10 major categories, unless otherwise stated in the HPI. Medications: Current Outpatient Medications Medication Sig Dispense Refill ??? indomethacin (INDOCIN) 25 mg Capsule Start 25mg three times a day for 1 week, and then increaseto 50mg three times a day. 30 capsule 12 ??? citalopram (CELEXA) 40 mg Tablet Take 40 mg by mouth daily. ??? LORazepam (ATIVAN) 1 mg Tablet Take 1 mg by mouth as needed for Anxiety. ??? magnesium 250 mg Tablet Take 500 mg by mouth daily. ??? ACETAMINOPHEN (TYLENOL ORAL) Take 325 mg by mouth as needed. ??? pantoprazole (PROTONIX) 40 mg Tablet, Delayed Release (E.C.) Take 1 tablet by mouth daily. (Patient not taking: Reported on 01/17/2018) 90 tablet 3 ??? riboflavin, vitamin B2, 100 mg Tablet Take 300 mg by mouth daily. ??? Potassium 99 mg Tablet Take 99 mg by mouth daily. ??? ubiquinone (COENZYME Q10) 10 mg Capsule Take 10 mg by mouth daily. No current facility-administered medications for this visit. Physical Exam: Most Recent Vitals: 01/17/18 1118 BP: 156/82 Pulse: 87 Constitutional: Patient of apparent stated age, no acute distress Neuro: MS: Alert, oriented, clear language, no dysarthria, follows commands CN: PERRL, EOMI except for right aBduction palsy, no facial asymmetry, tongue is midline Motor: no pronator drift Able to move all four extremities against graivity Coordination: intact finger to nose Gait: normal base and arm swing Labs: No results found for this or any previous visit (from the past 24 hour(s)). Diagnostic Tests and Imaging: No new imaging or testing since last visit. 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 From extensive review chart review of past work up, medication trials, and review of symptoms, patient actually did not meet ICHD-3 criteria for Idiopathic Intracranial Hypertension. She never had a documented elevation in CSF opening pressure >25cm H2O, never had clear improvement of symptoms that could be directly related to lumbar puncture/pressure lowering, and has not had documented papilledema on formal eye evaluations. Additionally, her last LP was 4cm H20. ?? Patient described two distinct headache episodes, both with side-locked, right sided pain symptoms,with acute date of onset that could be recalled (while exact date not remembered). Her last headache cycle started in late May 2017, are was right sided pain above her right eye, that was stabbing/pounding in intensity. She could have times where the intensity built for 45-60 seconds. She noted associated fullness/pain in her right ear, puffiness around her right eye, general imbalance (possibly more right sided) with stuttering during times of increased headache intensity. ?? Her past work up was appropriate, and overall unremarkable, including MRI/MRA/MRV, lumbar puncture,thyroid testing and inflammatory markers. Her examination is overall reasurring, with past examination noting components that appeared functional in nature, including sudden changes in sensation, giveway weakness on the right, moving her left arm with reflex testing and inconsistencies on incoordination testing. ?? With the whole picture taken into clinical context, hemicrania continuua was considered, and patient was trialed on indomethacin. Her right sided headaches have completely resolved on indomethacin 50mg TID, supporting HC diagnosis. ? Diagnosis: Hemicrania Continuua ?? - For Headache Prevention: - Continue Indomethacin 50mg three times a day - Continue Pantoprazole 40mg daily. If you have abdominal upset, please let us know, and we can increase the dose further. ?? Other - Basic metabolic panel to assess kidney function - Continue to follow up with primary care regarding mood and anxiety. - Not discussed further today, but will consider referral to sleep clinic for ELMA evaluation in theture. ?? Follow-up with Dr. Mercado in 6 months ? documented in this encounter Plan of Treatment Not on file documented as of this encounter Visit Diagnoses Diagnosis Hemicrania continua documented in this encounter Care Teams Security System Administrator Relationship Specialty Start Date End [place] [address] PCP - General 11/18/14 06/08/18 documented as of this encounter
--- OUTSIDE RECORDS SUMMARY | 2024-01-13 18:58 | XMS_ITS | Encounter Summary ---
Author Organization [place] [address] Care Team Providers Care Semiautomatic Taper Operator Name Role Phone Amada Carson MD Primary Care Provider [phone] Encounter Details Date Type Department Care Team (Latest Contact Info) Description 09/11/2018 3:00 PM EDT Ancillary Procedure Radiology XRay at the [facility] at [facility] [address] [place] [id number] Jackie Chavis MD [address] [place] [address] Ventral hernia without obstruction or gangrene Social [...] Comments XR CHEST PA AND LATERAL Routine 09/11/2018 3:06 PM EDT Ventral hernia without obstruction or gangrene documented in this encounter Results * XR [...] gangrene documented in this encounter Care Teams Semiautomatic Taper Operator Relationship Specialty Start Date End Date Amada Carson MD [address] [place] [address] PCP - General Family Medicine 08/28/18 01/21/20 documented as of this encounter
--- OUTSIDE RECORDS SUMMARY | 2024-01-13 18:58 | XMS_ITS | Encounter Summary ---
Author Organization [facility] Address [facility] [place] [address] Care Team Providers Care Diesel Service Journeyman Name Role Phone Amada Carson MD Primary Care Provider [phone] Encounter Details Date Type Department Care Team (Late st Contact Info) Description 05/29/2017 Interpretation Only [facility] [address] [place] [id number] Call, Antwan Dai MD [address] [place] [address] Social History Tobacco Use Types Packs/Day Years [...] Comments XR CHEST PA AND LATERAL Routine 05/29/2017 4:01 PM EDT documented in this encounter Results * XR Chest PA & Lateral (Generic) (05/29/2017 4:01 PM EDT) Anatomical Region Laterality Modality Chest N/A Radiographic Shana ging 05/29/2017 4:01 PM EDT Impressions 05/29/2017 4:21 PM EDT No acute cardiopulmonary process. Narrative 05/29/2017 4:21 PM EDT EXAMINATION: CHEST PA/LAT (2VWS) -ROUTN CLINICAL HISTORY: ZOT - OTHER - CHEMICAL INHALATION ?? COMPARISON: 05/29/2017 ? FINDINGS: Lungs are adequately inflated. ??No parenchymal airspace opacity. Normal pulmonary vascularity. No interstitial edema. Costophrenic angles are sharp, no pleural effusion. ??Cardiomediastinal silhouette is unremarkable. ?? Procedure Note Comfort Tucker MD - 05/29/2017 EXAMINATION: CHEST PA/LAT (2VWS) -ROUTN CLINICAL HISTORY: ZOT - OTHER - CHEMICAL INHALATION COMPARISON: 05/29/2017 FINDINGS: Lungs are adequately inflated. No parenchymal airspaceopacity. Normal pulmonary vascularity. No interstitial edema. Costophrenic anglesare sharp, no pleural effusion. Cardiomediastinal silhouette is unremarkable. IMPRESSION No acute cardiopulmonary process. Antwan Kim MD IMG DX ORDERABLES documented in this encounter Visit Diagnoses Not on filedocumented in this encounter Care Teams Diesel Service Journeyman Relationship Specialty Start Date End Date [place]ada [place] [address] PCP - General 11/18/14 06/08/18 documented as of this encounter
--- OUTSIDE RECORDS SUMMARY | 2024-01-13 18:58 | XMS_ITS | Encounter Summary ---
Author Organization [facility] [place] [address] Care Team Providers Care Lehr Attendant Name Role Phone Amada Carson MD Primary Care Provider [phone] [phone] Encounter Details Date Type Department Care Team (Late st Contact Info) Description 05/13/2018 Abstract Nancy Javed Conversion Results [address] [place] [phone] Apd Conversion, Flowsheet Provider, Social History Tobacco [...] Sign Reading Time Taken Comments Blood Pressure 154/86 05/13/2018 1:20 PM EDT Sourced from APD Conversion Pulse - - Temperature - - Respiratory Rate - - Oxygen Saturation - - Inhaled Oxygen Concentration - - Weight - - Height 168 cm (5' 6.14) 05/13/2018 1:2 0 PM EDT Sourced from APD Conversion Body Mass Index - - documented in this encounter Plan of Treatment Not on file documented as of this encounter Visit Diagnoses Not on filedocumented in this encounter Care Teams Lehr Attendant Relationship Specialty Start Date End Date Amada Carson MD [address] [place] [place] [address] PCP - General 06/09/18 08/27/18 documented as of this encounter
--- OUTSIDE RECORDS SUMMARY | 2024-01-13 18:58 | XMS_ITS | Encounter Summary ---
Author Organization [facility] [place] [address] Care Team Providers Care Quality Compliance Manager Name Role Phone Amada Carson MD Primary Care Provider [phone] [phone] Encounter Details Date Type Department Care Team (Late st Contact Info) Description 09/23/2018 Abstract Nancy Estradabeatriz [facility] [address] [place] [address] Provider, His MD Rupal Social History Tobacco Use Types Packs/Day Years [...] on filedocumented in this encounter Care Teams Quality Compliance Manager Relationship Specialty Start Date End Date Amada Carson MD [address] [place] [address] PCP - General Family Medicine 08/28/18 01/21/20 documented as of this encounter
--- OUTSIDE RECORDS SUMMARY | 2024-01-13 18:58 | XMS_ITS | Encounter Summary ---
Author Organization [facility] [place] [address] Care Team Providers Care Coffee Sommelier Name Role Phone Amada Carson MD Primary Care Provider [phone] Reason for Visit * Reason Onset Date Comments Medication Refill 07/02/2018 Encounter Details Date Type Department Care Team (Late st Contact Info) Description 07/02/2018 Refill Neurology at [facility] [place] [address] Alix Mercado MD [facility] [place] [address] Social History Tobacco Use Types Packs/Day Years [...] on filedocumented in this encounter Care Teams Coffee Sommelier Relationship Specialty Start Date End Date Amada Carson MD [address] [place] [address] PCP - General 06/09/18 08/27/18 documented as of this encounter
--- OUTSIDE RECORDS SUMMARY | 2024-01-13 18:58 | XMS_ITS | Encounter Summary ---
Author Organization [facility] Address [facility] [place] [address] Care Team Providers Care Timber Watchman Name Role Phone Amada Carson MD Primary Care Provider [phone] Reason for Visit * Reason Onset Date Comments Other 11/18/2017 Encounter Details Date Type Department Care Team (Late st Contact Info) Description 11/18/2017 [place] [phone] Melo Orona MD [facility] [place] [address] Other Social History Tobacco Use Types Packs/Day [...] encounter Miscellaneous Notes * Telephone Encounter - Madeline Briggs RN - 11/18/2017 9:09 AM EDT Spoke with Farhan. Pt is exhausted. She has her regular headache on top of the positional headache. She does have photosensitivity. This is not unusual for her. Denies fever or nuchal rigidity. Advised as LP was on Saturday. Would not schedule a blood patch yet. She has not taken anything for pain. As it is over 24 hrs since LP can take Ibuprofen. Advised per wt she can take 600 mg q 6 hrs as needed with food. Push fluids,rest. If any new sx or continued positional headache to call. Matias agrees with plan. He will call me directly with any updates and or tomorrow if positional headache continues. I will send on to Dr Cox who saw the pt this weekend. Pt has an appt with headache clinic on 12/11. Will discuss ONBs as that visit, as this was mentioned while pt was inpatient. * Telephone Encounter - Sabrina Moreno - 11/18/2017 8:42 AM EDT Caller: Farhan If not Pt / Relation to pt: Best time to reach caller: anytime Before 2:30pm - Informed caller that nurse will call back by the end of the day Best number to reach caller: [phone] Reason for call: patient's called stating that Kimberli's headache has not resolved since her LP on Saturday. When laying down the headache seems to improve but as soon as she sits up the pounding headache returns. Please call and advise. documented in this encounter Plan of Treatment Not on file documented as of this encounter Visit Diagnoses Not on filedocumented in this encounter Care Teams Timber Watchman Relationship Specialty Start Date End [place] [address] PCP - General 11/18/14 06/08/18 documented as of this encounter
--- OUTSIDE RECORDS SUMMARY | 2024-01-13 18:58 | XMS_ITS | Encounter Summary ---
Author Organization [facility] Address [facility] [place] [address] Care Team Providers Care Property Disposal Manager Name Role Phone Amada Carson MD Primary Care Provider [phone] Encounter Details Date Type Department Care Team (Late st Contact Info) Description 10/15/2017 External Results Laboratory at [facility] [address] [place] [phone] Amada Carson MD [address] [facility] [place] [address] Social History Tobacco Use Types Packs/Day Years [...] Associated Diagnosis Comments BASIC METABOLIC PANEL Routine 10/15/2017 5:00 PM EDT documented in this encounter Results * (ABNORMAL) Basic Metabolic Panel (non-fasting) (10/15/2017 5:00 PM EDT) Sodium 138(Vessel Welder al Lab) 135 - 145 mmol/L [facility] Potassium 3.1(ExtL) 3.5 - 5.1 mmol/L [facility] Chloride 104(Vessel Welder al Lab) 98 - 107 mmol/L [facility] Carbon Dioxide 21(Externa l Lab) 21 - 32 mmol/L [facility] Anion Gap 16.1(Exter nal Lab) 9 - 16.5 mmol/L [facility] Osmolality 267(Vessel Welder al Lab) 261 - 280 mosm/kg [facility] Glucose 105(Vessel Welder al Lab) 74 - 106 mg/dL [facility] Blood Urea Nitrogen 13(Externa l Lab) 7 - 18 mg/dL [facility] Creatinine 0.82(Exter nal Lab) 0.55 - 1.02 mg/dL [facility] BUN/Cre Ratio 15.9(Exter nal Lab) 7.0 - 25.0 [facility] Est Glomerular Filtration Rate > 60(Externa l Lab) mL/min [facility] Comment: Estimated GFR is to assist [...] in patients with diabetic kidney disease. Calcium 9.6(Vessel Welder al Lab) 8.5 - 10.1 mg/dL [facility] 10/15/2017 5:00 PM EDT 10/15/2017 5:30 PM EDT Amada Carson MD CHEMISTRY ORDERAB LES [facility] [address] [place] [address] documented in this encounter Visit Diagnoses Not on filedocumented in this encounter Care Teams Property Disposal Manager Relationship Specialty Start Date End Date Amada Carson MD [address] [address] PCP - General 11/18/14 06/08/18 documented as of this encounter
--- OUTSIDE RECORDS SUMMARY | 2024-01-13 18:58 | XMS_ITS | Encounter Summary ---
Author Organization [facility] [place] [address] Care Team Providers Care Choke Reamer Name Role Phone Amada Carson MD Primary Care Provider [phone] Encounter Details Date Type Department Care Team (Late st Contact Info) Description 11/11/2017 Abstract Nancy Javed Conversion Results [address] [place] [phone] Apd Conversion, Flowsheet Provider, Social History Tobacco [...] Sign Reading Time Taken Comments Blood Pressure 132/78 11/11/2017 1:14 PM EDT Shefali rced from APD Conversion Pulse - - Temperature - - Respiratory Rate - - Oxygen Saturation - - Inhaled Oxygen Concentration - - Weight - - Height - - Body Mass Index - - documented in this encounter Plan of Treatment Not on file documented as of this encounter Visit Diagnoses Not on filedocumented in this encounter Care Teams Choke Reamer Relationship Specialty Start Date End Date Amada Carson MD [address] [place] [place] [address] PCP - General 06/09/18 08/27/18 documented as of this encounter
--- OUTSIDE RECORDS SUMMARY | 2024-01-13 18:58 | XMS_ITS | Encounter Summary ---
Author Organization [facility] [place] [address] Care Team Providers Care Knife Edger Name Role Phone Amada Carson MD Primary Care Provider [phone] Encounter Details Date Type Department Care Team (Late st Contact Info) Description 03/12/2018 Abstract Nancy Javed Conversion Results [address] [place] [id number] Apd Conversion, Flowsheet Provider, Social History Tobacco [...] Sign Reading Time Taken Comments Blood Pressure 124/98 03/12/2018 8:42 AM EST Shefali rced from APD Conversion Pulse - - Temperature - - Respiratory Rate - - Oxygen Saturation - - Inhaled Oxygen Concentration - - Weight - - Height - - Body Mass Index - - documented in this encounter Plan of Treatment Not on file documented as of this encounter Visit Diagnoses Not on filedocumented in this encounter Care Teams Knife Edger Relationship Specialty Start Date End Date Amada Carson MD [address] [place] [place] [address] PCP - General 06/09/18 08/27/18 documented as of this encounter
--- OUTSIDE RECORDS SUMMARY | 2024-01-13 18:58 | XMS_ITS | Encounter Summary ---
Author Organization [place] [address] Care Team Providers Care Machine Shop Specialist Name Role Phone Amada Carson MD Primary Care Provider [phone] Reason for Visit * Reason Comments Medication Refill Encounter Details Date Type Department Care Team (Late st Contact Info) Description 09/08/2018 Refill Primary Care at [facility] [address] [place] [id number] Amada Carson MD [address] [facility] [place] [address] Social History Tobacco Use Types Packs/Day Years [...] encounter Miscellaneous Notes * Telephone Encounter - Christianne Parks Jerardo - 09/08/2018 10:16 AM EDT Last Prescription Fill Date: 12/21/17 Number Dispensed and Refills: # 15 / 1 Last Related Office Visit: 03/12/18 Upcoming Appointment: Visit date not found No [...] on filedocumented in this encounter Care Teams Machine Shop Specialist Relationship Specialty Start Date End Date Amada Carson MD [address] [place] [address] PCP - General Family Medicine 08/28/18 01/21/20 documented as of this encounter
--- OUTSIDE RECORDS SUMMARY | 2024-01-13 18:58 | XMS_ITS | Encounter Summary ---
Author Organization [facility] [place] [address] Care Team Providers Care Cardiac Cath Tech Name Role Phone Amada Carson MD Primary Care Provider [phone] Encounter Details Date Type Department Care Team (Late st Contact Info) Description 03/07/2018 Abstract Nancy Javed Conversion Results [address] [place] [id number] Apd Conversion, Flowsheet Provider, Social History Tobacco [...] Sign Reading Time Taken Comments Blood Pressure 134/88 03/07/2018 2:59 PM EST Shefali rced from APD Conversion Pulse - - Temperature - - Respiratory Rate - - Oxygen Saturation - - Inhaled Oxygen Concentration - - Weight - - Height - - Body Mass Index - - documented in this encounter Plan of Treatment Not on file documented as of this encounter Visit Diagnoses Not on filedocumented in this encounter Care Teams Cardiac Cath Tech Relationship Specialty Start Date End Date Amada Carson MD [address] [place] [address] PCP - General 06/09/18 08/27/18 documented as of this encounter
--- OUTSIDE RECORDS SUMMARY | 2024-01-13 18:58 | XMS_ITS | Encounter Summary ---
Author Organization [facility] [place] [address] Care Team Providers Care Imaging Account Manager Name Role Phone Amada Carson MD Primary Care Provider [phone] Reason for Visit * Reason Onset Date Comments Medication Refill 08/28/2018 Encounter Details Date Type Department Care Team (Late st Contact Info) Description 08/28/2018 Refill Neurology at [facility] [place] [address] Alix Mercado MD [facility] [place] [address] Social History Tobacco Use Types Packs/Day Years [...] Telephone Encounter - Molly Lopez RN - 08/28/2018 2:43 PM EDT Call made to the [facility]. The prescription for indomethacin was inadvertently marked as a dispense for 90 days as opposed to 30 days. New prescription prepared for the pharmacy. Call made to the patient. Informed the patient the prescription should be ready for cherry picker operator either this afternoon or tomorrow. Understanding verbalized. * Telephone Encounter - Rosie Phillips - 08/28/2018 10:22 AM EDT [facility] [place] Call Caller: Kimberli Call back number: [phone] Medication requiring PA: Bryan Feng Benefits/Coverage Company: [facility] Benefits/Coverage ID #: [id number] Pharmacy Benefits/Coverage Company Pharmacy used by patient: [facility] location: [place], [place] The pt called stating that [facility] needs a PA for this prescription for the additional 25 mg, as the dimmer board operator doesn't make a 75mg tablet. She is inquiring if it will be an issue for her to not be on the additional 25mg, as she was supposed to increase her dose two days ago. Please callthe pt to discuss. Disposition of Call: -Red arrow message: Pt was supposed to increase her dose two days ago. documented in this encounter Plan of Treatment Not on file documented as of this encounter Visit Diagnoses Not on filedocumented in this encounter Care Teams Imaging Account Manager Relationship Specialty Start Date End Date Amada Carson MD [address] [place] [address] PCP - General Family Medicine 08/28/18 01/21/20 documented as of this encounter
--- OUTSIDE RECORDS SUMMARY | 2024-01-13 18:58 | XMS_ITS | Encounter Summary ---
Author Organization [facility] Address [facility] [place] [address] Care Team Providers Care Post Hole Digging Machine Operator Name Role Phone Amada Carson MD Primary Care Provider [phone] Encounter Details Date Type Department Care Team (Late st Contact Info) Description 10/03/2017 External Results Laboratory at [facility] [address] [place] [phone] Amada Carson MD [address] [facility] [place] [address] Social History Tobacco Use Types Packs/Day Years [...] Priority Date/Time Associated Diagnosis Comments HEMOGRAM Routine 10/03/2017 5:40 PM EDT BASIC METABOLIC PANEL Routine 10/03/2017 5:40 PM EDT documented in this encounter Results * (ABNORMAL) Hemogram (10/03/2017 5:40 PM EDT) White Blood Cell 12.3(ExtH ) 4.0 - 10.0 10^3/uL [facility] Red Blood Cell 4.32(Exte rnal Lab) 3.93 - 5.22 10^6/uL [facility] Hemoglobin 12.5(Exte rnal Lab) 11.2 - 15.7 g/dL [facility] Hematocrit 38.5(Exte rnal Lab) 34.0 - 45.0 % [facility] Mean Cell Volume 89.1(Exte rnal Lab) 79.0 - 94.0 fL [facility] Mean Cell Hemoglobin 28.9(Exte rnal Lab) 26.6 - 32.2 pg [facility] Mean Cell Hemoglobin Concentration 32.5(Exte rnal Lab) 32.0 - 36.5 g/dL [facility] RDW coefficient of variation 13.3(Exte rnal Lab) 10.9 - 14.4 % [facility] RDW Standard Deviation 43(Metal Worker al Lab) 35 - 46 fL [facility] Platelet 312(Exter nal Lab) 145 - 370 10^3/uL [facility] Mean Platelet Volume 10.2(Exte rnal Lab) 9.0 - 12.0 fL [facility] Neutrophil % 64.9(Exte rnal Lab) 34.0 - 71.0 % [facility] Lymph % 25.4(Exte rnal Lab) 19.0 - 53.0 % [facility] Monocyte % 7.9(Exter nal Lab) 4.0 - 13.0 % [facility] Eos % 1.6(Exter nal Lab) 0.0 - 7.0 % [facility] Basophil % 0.2(Exter nal Lab) 0.0 - 2.0 % [facility] Neutrophil Absolute 8.0(ExtH) 1.5 - 6.3 ABS # [facility] Lymphocytes Abs 3.1(Exter nal Lab) 1.0 - 3.6 ABS # [facility] Monocyte Abs 1.0(Exter nal Lab) 0.2 - 1.0 ABS # [facility] Eosinophils Abs 0.2(Exter nal Lab) 0.0 - 0.5 ABS # [facility] Baso Absolute 0.0(Exter nal Lab) 0.0 - 0.2 ABS # [facility] 10/03/2017 5:40 PM EDT 10/03/2017 6:10 PM EDT Amada Carson MD HEMATOLOGY MELIDA BUTLER [facility] [address] [place] [address] * (ABNORMAL) Basic Metabolic Panel (non-fasting) (10/03/2017 5:40 PM EDT) Sodium 136(Metal Worker al Lab) 135 - 145 mmol/L [facility] Potassium 4.1(Metal Worker al Lab) 3.5 - 5.1 mmol/L [facility] Chloride 101(Metal Worker al Lab) 98 - 107 mmol/L [facility] Carbon Dioxide 29(Externa l Lab) 21 - 32 mmol/L [facility] Anion Gap 10.1(Exter nal Lab) 9 - 16.5 mmol/L [facility] Osmolality 261(Metal Worker al Lab) 261 - 280 mosm/kg [facility] Glucose 86(Externa l Lab) 74 - 106 mg/dL [facility] Blood Urea Nitrogen 9(External Lab) 7 - 18 mg/dL [facility] Creatinine 0.74(Exter nal Lab) 0.55 - 1.02 mg/dL [facility] BUN/Cre Ratio 12.2(Exter nal Lab) 7.0 - 25.0 [facility] Est Glomerular Filtration Rate > 60(Externa l Lab) mL/min [facility] Comment: Estimated GFR is to assist you [...] in patients with diabetic kidney disease. Calcium 9.5(Metal Worker al Lab) 8.5 - 10.1 mg/dL [facility] 10/03/2017 5:40 PM EDT 10/03/2017 6:10 PM EDT Amada Carson MD CHEMISTRY ORDERAB LES [facility] [address] [facility] [place] [address] documented in this encounter Visit Diagnoses Not on filedocumented in this encounter Care Teams Post Hole Digging Machine Operator Relationship Specialty Start Date End Date Amada Carson MD [address] [facility] [place] [address] PCP - General 11/18/14 06/08/18 documented as of this encounter
--- OUTSIDE RECORDS SUMMARY | 2024-01-13 18:58 | XMS_ITS | Encounter Summary ---
Author Organization [facility] Address [facility] [place] [address] Care Team Providers Care Tangled Yarn Worker Name Role Phone Amada Carson MD Primary Care Provider [phone] Reason for Referral * Consultation (Urgent) - Closed Specialty Diagnoses / Procedures Referred By Stacy harper Referred To Contact Ophthalmology Diagnoses Neurological deficit present Fazia Kathleen MD [facility] [place] [address] Cali Pillai MD [facility] [place] [address] Referral ID Status Reason Start Date Expiration Date V isits Requested Visits Authorized [id number] Closed Consult, Test & Treat 11/17/2017 11/17/2018 1 1 Reason for Visit * Reason Comments Altered Mental Status memory loss * Auth/Cert Specialty Diagnoses / Procedures Referred By Contac t Referred To Contact Diagnoses Neurological deficit present Procedures EMERGENCY IPI Referral ID Status Reason Start Date Expiration Date Visits Re quested Visits Authorized [id number] 1 1 Encounter Details Date Type Department Care Team (Latest Contact Info) Description 11/15/2017 10:28 AM EDT - 11/17/2017 10:40 AM EDT Hospital Encounter [address] [place] [address] Joelle Gray MD [facility] [place] [address] Melo Orona MD [facility] [place] [address] Neurological deficit present Discharge Disposition: Home Social [...] Sign Reading Time Taken Comments Blood Pressure 142/91 11/17/2017 7:50 AM EDT Pulse 77 11/17/2017 7:50 AM EDT Temperature 36.4 ??C (97.5 ??F) 11/17/2017 7:50 AM ED T Respiratory Rate 16 11/17/2017 7:50 AM EDT Oxygen Saturation 100% 11/17/2017 7:50 AM EDT Inhaled Oxygen Concentration - - Weight 140.2 kg (309 lb) 11/15/2017 6:48 PM EDT Height 170.2 cm (5' 7) 11/15/2017 6:48 PM EDT Body Mass Index 48.4 11/15/2017 6:48 PM EDT documented in this encounter Discharge Summaries * Melo Orona MD - 11/17/2017 9:40 AM EDT Discharge Summary Patient Name: Kimberli Bales Patient Age: 31 y.o. Language: Serbian Race: White Ethnicity: Not nor Admit Date: 11/15/2017 Discharge Date: 11/17/17 Attending Physician: Melo Orona MD Discharge Physician: Melo Orona MD Follow-up Recommendations for Providers: -ensure patient follows up with her outpatient neurologist -ensure patient follows up with her pressure welder -Patient was discharged on home diamox dosing (125 mg QAM, ER 500 mg QHS) Inpatient Provider Contact Information: For questions regarding this document or issues related to this hospitalization on the Neurology Service, please contact the author(s) of this discharge summary through the [facility] [employer] . Discharge Diagnoses (Hospital Problems) and Secondary Diagnoses (Chronic Problems): Primary Diagnosis: Possible idiopathic intracranial hypertension Secondary Diagnosis: none Active Hospital Problems Diagnosis ??? Neurological deficit present Resolved Hospital Problems Diagnosis Date Resolved No resolved problems to display. Active Non-Hospital Problems Diagnosis ??? Exotropia ??? Headache(784.0) ??? Post-op bleeding ??? CIS - BMI 45.51 ??? CIS - Entered not Verified ??? CIS - history of UTI's ??? CIS - Dysplasia of cervix ??? CIS - Urinary symptom change Past Medical History: Diagnosis Date ??? Allergic state ??? Pseudotumor cerebri ??? Strabismus History of Presentation: CC: Headaches with word finding difficulty and concern for right sided weakness ?? HPI: This is a 31yo F with hx IIH diagnosed in 2010 (OP 23) previously followed by neurology 5 years ago, on diamox, who presents with worsening BLACKWOOD with associated word finding difficulties and since2 days ago, worsening confusion. ?? She was evaluated in the headache clinic in 05/2012. Headaches started after c- section and were characterized by right frontal/temporal, throbbing with tinnitus and without migrainous features of phonophobia, photophobia or nausea. No particular exacerbating or alleviating factors. She endorsed tunnel vision. LP with OP was 23 initially. There were some concerns of papilledema on fundoscopic exam.MRI brain in 2011 was normal. She was placed on diamox 125bid initially. Had failed amitriptyline and topamax previously. She was sent to neuro-opthalmology for evaluation. Repeat LP with OP 08/2012 was 17. Pt has since been lost to neurology follow up. She states that her BLACKWOOD were relatively well controlled over the years until this June when her Blackwood and tinnitus returned. She went to her PCP who put her back on diamox 1000mg QD with improvement in symptoms but SE tingling, so her PCP lowered the dose to 125/500mg. ?? Pt presents to ED today due to worsening acute BLACKWOOD that started last Saturday. Had sharp right frontalHA with visual changes. This Blackwood was same has prior BLACKWOOD characterization. She felt disoriented and forgot where she was. She hasn't been feeling great this week--denies fevers, malaise. Since 2d ago, started with word salad and stuttering/expressive aphasia which has continued since. Also has developed focal right sided hemiparesis--never had this before with her headaches. No focal tinging/numbness, no focal weakness, no facial droop. ?? ED course: SBPs in 160s Utox negative, Cbc and cmp unremarkable CTH negative Physical Exam at Admission BP: (!) 167/132 Pulse: 71 Resp: 16 Temp: ?? SpO2: 99% ?? Gen: NAD , obese female Neck: Supple, no Meningismus CV: + S1, S2, RRR, no murmur Resp: CTA B/L Abd:non distended Ext: No edema. No bony deformity Neuro Exam: MS: significant stuttering and word finding difficulties that is c/w non physiologic etiolgoy no dysarthria, follows command CN: PERRL, EOM with mild Right CN palsy, visual ling full Fundoscopic exam with papilledema on R Facial sensation intact, no facial asymmetry Motor: Normal bulk and tone. UE: 4/5 R, 5/5 L Arm abduction at shoulder 4/5 R, 5/5 L Elbow extension 4/5 R, 5/5 L Elbow flexion 4/5 R, 5/5 L Retail Custodial Associate LE: 4/5 R, 5/5 L Hip flexion 4/5 R, 5/5 L Knee extension 4/5 R, 5/5 L Knee flexion 4/5 R, 5/5 L Foot dorsiflexion 4/5 R, 5/5 L Foot plantar flexion Sensation: Intact to light touch throughout Reflexes: DTRs 2+ R, 2+ L Biceps 2+ R, 2+ L Brachioradialis 2+ R, 2+ L Triceps 2+ R, 2+ L Patellar 2+ R, 2+ L Achilles tendon Toes - R down, L down Coordination: Finger to nose intact, no dysmetria No tremor Gait:not assessed ?? Hospital Course: Kimberli Bales was admitted to the neurology services for further evaluation of concern for worsening IIH. Patient had neuroimaging performed (MRI/MRA/MRV) of the brain performed. Her vascular imaging was negative, however her MRI Brain showed a possible area of signal abnormality in the left grimes radiata with concern for possible focal hemorrhage. Though when we compare this to the CT Head patient had in the ED there are no signs of hemorrhage. At this time would recommend repeat MRI Brain if primary neurologist feels this is necessary at follow up clinic visit. In addition patient had a lumbar puncture with fluoro guidance and her opening pressure was 4 cm ofH2O as was her closing pressure. This may be though in the setting of the patient already restarting her diamox prior to her admission. In addition there is concern for chronic vision changes and patient will require outpatient ophthalmology evaluation. Patient should not drive until she gets visual testing done with visual ling performed. Patient was continued on her diamox 125 qAM, ER 500 mg QHS during her hospitalization and was discharged with instructions to continue this dose until evaluated in neurology and ophthalmology clinic. Of note patient had stuttering upon arrival and continued to have this during her admission. Upon further evaluation it was determined that this was secondary to stress reaction and is functional. The patient was discharged home. Operations/Major Procedures: Fluoro guided LP 11/16 Consultations none Diagnostic Tests & Neuroimaging: Date Study Results 11/15/17 ECG Component Value Flag Ref Range Units Status ? Ventricular rate 72 BPM Final ?? Atrial Rate 72 BPM Final ?? P-R Interval 136 ms Final ?? QRS Duration 88 ms Final ?? Q-T Interval 398 ms Final ?? QTC Calculated (Bezet) 435 ms Final ?? Calculated P [place] 30 degrees Final ?? Calculated R [place] 41 degrees Final ?? Calculated T [place] 35 degrees Final ?? INTERPRETATION Final ?? Normal sinus rhythm Normal ECG When compared with ECG of 07-JUN-2016 00:29, No significant change was found Confirmed by MD Steve, Juan ([id number]) on 11/15/2017 4:27:01 PM ?? 11/15/17 CT Head wo contrast EXAMINATION: CT HEAD WO CONTRAST (GENERIC) ?? CLINICAL HISTORY: BLACKWOOD, stuttering speech ?? TECHNIQUE: CT Head was performed without contrast ?? COMPARISON: None ?? FINDINGS: There is no acute intracranial hemorrhage. The chaves-white differentiation is preserved. There is no mass effect, midline shift or extra-axial fluid collection. The ventricles are normal in size. The visualized paranasal sinuses and mastoid air cells are clear. The visualized orbits are unremarkable in appearance. Partially calcified subcutaneous lesion measuring 7 mm in the right parietal region may reflect an epidermal or related inclusion cyst. ?? IMPRESSION No acute intracranial process. ? 11/15/17 MRI BRAIN wo contrast, MRV BRAIN, MRA BRAIN EXAMINATION: MRI BRAIN WO CONTRAST, MRI ANGIOGRAM HEAD WO CONTRAST (GENERIC), MRI VENOGRAM HEAD WO CONTRAST ?? CLINICAL HISTORY: hx IIH presents w worsening BLACKWOOD, papilledema, R sided hemiparesis, eval for increased ICP ?? TECHNIQUE: MR brain noncontrast MR angiogram head noncontrast MR venogram head noncontrast ?? COMPARISON: Head CT dated 11/07/2017 ?? FINDINGS: Brain MRI noncontrast: No restricted diffusion to suggest an acute infarct. There is a focus of high signal intensity on FLAIR and T2 sequence in the left grimes radiata on image 14 of series 14 and series 13 with an apparent linear low signal intensity suggesting a vessel extending to the sulcus. Well seen on the 3-D [id number] images without evidence of flow related signal. [...] examination and susceptibility sequence may be helpful.. ? Labs: Last wbc, hgb, hct plt Recent Labs 11/16/ Recent Labs 11/16/17 0840 WBC 5.8 HGB 12.5 HCT 38.6 Labs 11/16/ Recent Labs 11/16/17 0840 11/15/17 1130 11/07/17 1250 NA 140 139 138* K 3.9 3.8 3.8* CL 107 105 105* CO2 21* 20* 25* BUN 11 10 9* CREATININE 0.75 0.72 0.79* cent Labs 11/16/ Labs 11/16/17 0840 CALCIUM 9.1 Labs 11/15/ Labs 11/15/17 1130 PT 11.4 INR 1.0 lts for input(sNo results for input(s): CHLPL, HDL, LDLCHOL, LDLDIRECT, TRIG in the last 7068 hours.lts for input(sNo results for input(s): HA1C in the last 7068 hours.ent Labs 11/15/ Recent Labs 11/15/17 1130 CRP 13.9* SEDRATE 16 ab Data: CSF results: CSF culture Vital Signs at Discharge: BP: (!) 142/91, HearBP: (!) 142/91mpHeart Rate: 77??FTemp: 36.4 ??C (97.5 ??F)cuResp: 16.3BMI (Calculated): 48.397Height: 170.2 cm (5' 7) (11/15/171847)(Weight: (!) 140.2 kg (309 lb) (11/15/171847)ve Status: Stuttering/Baseline Physical Exam at Discharge: Gen: NAD , obese female Neck: Supple, no Meningismus CV: + S1, S2, RRR, no murmur Resp: CTA B/L Abd:non distended Ext: No edema. No bony deformity Neuro Exam: MS: significant stuttering. Language, naming intact. no dysarthria, follows command CN: PERRL, EOMI - could not appreciate mild Right CN palsy as documented on yesterday's exam, visual ling full Fundoscopic exam with papilledema bilaterally (more apparent on R however) Facial sensation intact, no facial asymmetry Motor: Normal bulk and tone. UE: 5/5 R, 5/5 L Arm abduction at shoulder 5/5 R, 5/5 L Elbow extension 5/5 R, 5/5 L Elbow flexion 5/5 R, 5/5 L Retail Custodial Associate LE: 5/5 R, 5/5 L Hip flexion [...] Coordination: Finger to nose intact, no dysmetria No tremor Gait:not assessed ?? Discharge Conditions/Prognosis: Good/Good Discharge to: Home Updated Allergies/ADRs: Allergies Allergen Re Allergies Allergen Reactions ??? Red Dye Stops heart ??? Percocet [Oxycodone-Acetaminophen] Difficulty breathing his Hospitalization: Immunization History Immunization History Administered Date(s) Administered ??? Tdap Vaccine 03/28/2010 s: Your Medications Your Medications Continued medications, unchanged Dose Details * acetaZOLAMIDE 125 mg Tab Commonly known as: DIAMOX Take 125 mg by mouth every morning. 125 mg Refills: 0 * acetaZOLAMIDE 500 mg Cpsr Commonly known as: DIAMOX Take 500 mg by mouth every evening. 500 mg Refills: 0 citalopram 40 mg Tab Commonly known as: CeleXA Take 40 mg by mouth daily. 40 mg Refills: 0 LORazepam 1 mg Tab Commonly known as: ATIVAN Take 1 mg by mouth as needed for Anxiety. 1 mg Refills: 0 magnesium 250 mg Tab Take 500 mg by mouth. 500 mg Refills: 0 Potassium 99 mg Tab Take 99 mg by mouth daily. 99 mg Refills: 0 riboflavin (vitamin B2) 100 mg Tab Take 300 mg by mouth. 300 mg Refills: 0 TYLENOL ORAL Take by mouth as needed. Refills: 0 ubiquinone 10 mg Cap Commonly known as: coenzyme Q10 Take 10 mg by mouth daily. 10 mg Refills: 0 * Notice: This list has 2 medication(s) that are the same as other medications prescribed for you. Read the directions carefully, and ask your doctor or other care provider to review them with you. Patient at Discharge: Patient Instructions Patient Instructions You were admitted to the neurology service at [facility]. Your diagnosis: possible Idiopathic intracranial hypertension Instructions: Please follow up with your headache neurologist as scheduled below Please follow up in opthalmology clinic to get further vision testing performed Please continue on your diamox as prescribed at home Medication Changes: No changes Patient Instructions: ??? Call your doctor or seek medical attention if you have ??? weakness or numbness in your face or one of your limbs or difficulty speaking ??? loss of vision ??? seizures or loss of consciousness ??? Diet: we recommend a heart healthy diet: low fat, low cholesterol, low concentrated sweets. ??? Activity Restrictions: no driving until cleared by your pressure welder ??? Driving Restrictions: NO DRIVING UNTIL CLEARED BY YOUR CHART CALCULATOR ??? Home oxygen therapy: none needed ??? Anticoagulation Follow-up and Instructions: none FOLLOWUP APPOINTMENT: You will have an outpatient followup appointment in the neurology clinic at [facility]. If not already listed in this document, we will contact you to schedule this appointment. -- If 1 week passes by after you are discharged and you still do not have an appointment, please call [phone]. Future Appointments and Orders Future Appointments Provider Department Dept Phone 12/11/2017 8:30 AM Alix Mercado MD Neurology at [place] [phone] Future Orders Complete By Expires Referral to Ophthalmology [REF57 Custom] As directed Process Instructions: If no progress note charted, please enter Clinical details in comments. Scheduling Instructions: Questions: My question or request is: concern for bilateraly papilledema, opening pressure 4cm H20, concern for IIH, also needs visual field testing General Instructions None nd Orders Future Appointments Provider Department Dept Phone 12/11/2017 8:30 AM Alix Mercado MD [facility] at [place] [phone] Future Orders Complete By Expires Referral to Ophthalmology [REF57 Custom] As directed Process Instructions: If no progress note charted, please enter Clinical details in comments. Scheduling Instructions: Questions: My question or request is: concern for bilateraly papilledema, opening pressure 4cm H20, concern for IIH, also needs visual field testing Future Appointments Date Time Provider Department Center 12/11/2017 8:30 AM Alix Mercado MD [facility] Primary Care Provider: Amada Carson MD [address] / [place] [id number] Discharge References/Attachments None The assessment and plan were formulated in discussion with me at the time of the visit and I agree with them as documented. .Melo Orona MD documented in this encounter Discharge Instructions * Patient Instructions* Faiza Kathleen MD - 11/17/2017 9:36 AM EDT You were admitted to the neurology service at [facility]. Your diagnosis: possible Idiopathic intracranial hypertension Instructions: Please follow up with your headache neurologist as scheduled below Please follow up in opthalmology clinic to get further vision testing performed Please continue on your diamox as prescribed at home Medication Changes: No changes Patient Instructions: ??? Call your doctor or seek medical attention if you have ??? weakness or numbness in your face or one of your limbs or difficulty speaking ??? loss of vision ??? seizures or loss of consciousness ??? Diet: we recommend a heart healthy diet: low fat, low cholesterol, low concentrated sweets. ??? Activity Restrictions: no driving until cleared by your pressure welder ??? Driving Restrictions: NO DRIVING UNTIL CLEARED BY YOUR CHART CALCULATOR ??? Home oxygen therapy: none needed ??? Anticoagulation Follow-up and Instructions: none FOLLOWUP APPOINTMENT: You will have an outpatient followup appointment in the neurology clinic at [facility]. If not already listed in this document, we will contact you to schedule this appointment. -- If 1 week passes by after you are discharged and you still do not have an appointment, please call [phone]. Future Appointments and Orders Future Appointments Provider Department Dept Phone 12/11/2017 8:30 AM Alix Mercado MD Neurology at [place] [phone] Future Orders Complete By Expires Referral to Ophthalmology [REF57 Custom] As directed Process Instructions: If no progress note charted, please enter Clinical details in comments. Scheduling Instructions: Questions: My question or request is: concern for bilateraly papilledema, opening pressure 4cm H20, concern for IIH, also needs visual field testing documented in this encounter Medications at Time [...] needed. 07/22/2018 documented as of this encounter Progress Notes * Rj Blum RN - 11/17/2017 10:37 AM EDT Kimberli Bales discharged to home by car with . All belongings sent with patient. MARCELINO removed, incision dry and intact, skin free from pressure ulcers. Discharge instructions, medications,and follow-up appointments reviewed, education provided on worsening symptoms, paper prescriptions given to patient, all questions answered. Patient instructed to call with any questions or concerns. * Melo Orona MD - 11/17/2017 7:58 AM EDT Images from the original note were not included. Neurology Progress Note Patient name: Kimberli Bales Date of : 1985 PCP: Amada Carson MD ID: This is a 31yo F with hx IIH diagnosed in 2010 (OP 23) previously followed by neurology 5 yearsago, on diamox, who presents with worsening BLACKWOOD with associated word finding difficulties and since 2 days ago, worsening confusion. Interval History: LP completed with immediate resolution of stuttering and weakness BLACKWOOD remains the same intensity Patient expressed desire to go home Physical Exam: Most Recent Vitals: 11/17/17 0400 BP: 141/87 Pulse: 69 Resp: 18 Temp: 36.5 ??C (97.7 ??F) SpO2: 97% Gen: NAD , obese female Neck: Supple, no Meningismus CV: + S1, S2, RRR, no murmur Resp: CTA B/L Abd:non distended Ext: No edema. No bony deformity Neuro Exam: MS: significant stuttering. Language, naming intact. no dysarthria, follows command CN: PERRL, EOMI - could not appreciate mild Right CN palsy as documented on yesterday's exam, visual ling full Fundoscopic exam with papilledema bilaterally (more apparent on R however) Facial sensation intact, no facial asymmetry Motor: Normal bulk and tone. UE: 5/5 R, 5/5 L Arm abduction at shoulder 5/5 R, 5/5 L Elbow extension 5/5 R, 5/5 L Elbow flexion 5/5 R, 5/5 L Retail Custodial Associate LE: 5/5 R, 5/5 L Hip flexion [...] Coordination: Finger to nose intact, no dysmetria No tremor Gait:not assessed Labs: Recent Results (from the past 24 hour(s)) Basic Metabolic Panel (non-fasting) Result Value Ref Range Glucose Lvl 133 65 - 199 mg/dL BUN 11 8 - 18 mg/dL Creatinine 0.75 0.70 - 1.20 mg/dL Sodium 140 135 - 145 mmol/L Potassium 3.9 3.5 - 5.0 mmol/L Chloride 107 98 - 107 mmol/L CO2 21 (L) 22 - 31 mmol/L Anion Gap 12 5 - 15 mmol/L Calcium 9.1 8.5 - 10.5 mg/dL eGFR 105 >=60 mL/min/1.73 m?? eGFR 121 >=60 mL/min/1.73 m?? Hemogram Result Value Ref Range WBC 5.8 4.0 - 9.5 x10(3)/mcL RBC 4.37 4.00 - 5.21 x10(6)/mcL Hemoglobin 12.5 11.7 - 15.5 gm/dL Hematocrit 38.6 35.7 - 45.8 % MCV 88.3 82.6 - 94.4 fL MCH 28.6 27.1 - 32.0 pg MCHC 32.4 31.7 - 35.0 gm/dL Platelets 231 145 - 357 x10(3)/mcL RDWSD 42.6 37.0 - 46.0 fL RDWCV 13.1 11.5 - 14.1 % MPV 9.5 7.6 - 12.9 fL nRBC % Auto 0.0 % nRBC Abs Auto 0.000 0.000 - 0.000 x10(3)/mcL Differential, Automated Result Value Ref Range Neutrophils % 57.8 % Neutr Abs (ANC) 3.37 1.70 - 6.10 x10(3)/mcL Lymphocytes % 33.9 % Lymphocytes Abs 2.0 0.9 - 3.2 x10(3)/mcL Monocytes % 4.8 % Monocyte Abs 0.3 0.3 - 0.9 x10(3)/mcL Eosinophils % 2.9 % Eosinophils Abs 0.2 0.0 - 0.4 x10(3)/mcL Basophils % 0.3 % Basophils Abs 0.0 0.0 - 0.1 x10(3)/mcL Immature Gran % 0.30 % Roberta Gran Abs 0.02 0.00 - 0.04 x10(3)/mcL Protein Level CSF Result Value Ref Range T Protein, CSF 60 (H) 15 - 45 mg/dL Xanthochromia Neg Glucose Level CSF Result Value Ref Range Glucose, CSF 67 mg/dL CSF Culture Result Value Ref Range Central Nervous System Culture No growth to date. Gram Stain Cytocentrifuge Gram Stain performed No Neutrophils seen. No microorganisms seen. CSF DESC 1 Result Value Ref Range Tube Num CSF #1 1 Color CSF #1 [place] Colorless Appear CSF #1 Cloudy Clear Tot Vol CSF #1 1.2 mL CSF DESC 2 Result Value Ref Range Tube Num CSF #2 2 Color CSF #2 [place] Colorless Appear CSF #2 Slightly Hazy Clear Tot Vol CSF #2 1.2 mL CSF DESC 3 Result Value Ref Range Tube Num CSF #3 3 Color CSF #3 [place] Colorless Appear CSF #3 Slightly Hazy Clear Tot Vol CSF #3 1.5 mL CSF DESC 4 Result Value Ref Range Tube Num CSF #4 4 Color CSF #4 [place] Colorless Appear CSF #4 Slightly Hazy Clear Tot Vol CSF #4 1.5 mL CSF Cell Count Result Value Ref Range Tube # Ct CSF [address] 7 (H) 0 - 5 /mcl RBC CSF CT 1465 /mcl Neutrophil CSF 16 % Lymphocyte CSF 82 % Macrophage CSF 1 % Eosinophil CSF 1 % Tot Diff Ct CSF 200 Cells CSF Cell Count 2nd count Result Value Ref Range Tube #2nd CT [address] #2 4623 /mcl Diagnostic Tests and Imaging MRA - NEGATIVE MRV-NEGATIVE MRI- Small foci of T2 signal changes in the anterior grimes radiata and Sylvian fissue (pictured below respectively). Assessment and plan: This is a 31yo F with hx IIH diagnosed in 2013 on LP with OP 23 on diamox therapy who presents withworsening usual BLACKWOOD with new onset sudden stuttering and R sided hemiparesis that is uncharacteristic of her prior headaches. Stuttering and weakness stopped after LP was done. Opening pressure and closing pressure 4. Discussed that stuttering and weakness were likely stress related which patient and were receptive to. Headache persists but patient wishes to go home. Will DC on diamox. Patient to follow-up with ophthalmology for formal outpatient evaluation. Plan # IIH with worsening BLACKWOOD; speech changes, R sided weakness (resolved) - IR LP with OP - MRI brain non contrast-COMPLETED - MRV - COMPLETED -MRA head-COMPLETED - Continue home diamox 120/500mg--can increase to 250/500 if tolerated (had paresthesias on the 500mg bid dosing) - Prn BLACKWOOD mgm with IV ketorolac, mag, hydroxyzine , IV Magnesium - Opthalmology consulted # home meds None Full code DVT ppx: lovenox Dispo; DC Home Patrick Cox MD 11/17/2017 Neurology resident, PGY-4 General neurology pager [phone] ... I saw and evaluated the patient with Dr. Cox. I have reviewed the resident's history during the visit and I agree with the details as written. My neurological examination confirms the resident's findings. The assessment and plan were formulated in discussion with me at the time of the visit and I agree with them as documented. Discussed at length with patient and family about diagnostic considerations. Explained diagnosis and treatment. went over medications, indications and side- effects. Patient understands and accepts our plan. If there are any questions or problems, they will call.Melo Orona MD * Anay Wilson RN - 11/16/2017 7:50 PM EDT 1950 Paged neurology re RUE and RLE weakness and L pupil slightly larger than R. * Melo Orona MD - 11/16/2017 11:16 AM EDT Images from the original note were not included. Neurology Progress Note Patient name: Kimberli Bales Date of : 1985 PCP: Amada Carson MD ID: This is a 31yo F with hx IIH diagnosed in 2010 (OP 23) previously followed by neurology 5 yearsago, on diamox, who presents with worsening BLCAKWOOD with associated word finding difficulties and since 2 days ago, worsening confusion. 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 No bony deformity Neuro Exam: MS: significant stuttering. Language, naming intact. no dysarthria, follows command CN: PERRL, EOMI - could not appreciate mild Right CN palsy as documented on yesterday's exam, visual ling full Fundoscopic exam with papilledema bilaterally (more apparent on R however) Facial sensation intact, no facial asymmetry Motor: Normal bulk and tone. UE: 5/5 R, 5/5 L Arm abduction at shoulder 5/5 R, 5/5 L Elbow extension 5/5 R, 5/5 L Elbow flexion 5/5 R, 5/5 L Retail Custodial Associate LE: 5/5 R, 5/5 L Hip flexion [...] Coordination: Finger to nose intact, no dysmetria No tremor Gait:not assessed Labs: Recent Results (from the past 24 hour(s)) Basic Metabolic Panel (non-fasting) Result Value Ref Range Glucose Lvl 95 65 - 199 mg/dL BUN 10 8 - 18 mg/dL Creatinine 0.72 0.70 - 1.20 mg/dL Sodium 139 135 - 145 mmol/L Potassium 3.8 3.5 - 5.0 mmol/L Chloride 105 98 - 107 mmol/L CO2 20 (L) 22 - 31 mmol/L Anion Gap 14 5 - 15 mmol/L Calcium 9.7 8.5 - 10.5 mg/dL eGFR 110 >=60 mL/min/1.73 m?? eGFR 128 >=60 mL/min/1.73 m?? Prothrombin Time Result Value Ref Range PT 11.4 9.4 - 12.5 sec INR 1.0 TSH Result Value Ref Range TSH 1.81 0.27 - 4.20 mlU/ML CRP, acute inflammation Result Value Ref Range CRP 13.9 (H) <=4.9 mg/L Sedimentation rate Result Value Ref Range Sed Rate 16 0 - 20 mm/hr Hemogram Result Value Ref Range WBC 7.8 4.0 - 9.5 x10(3)/mcL RBC 4.74 4.00 - 5.21 x10(6)/mcL Hemoglobin 13.6 11.7 - 15.5 gm/dL Hematocrit 41.4 35.7 - 45.8 % MCV 87.3 82.6 - 94.4 fL MCH 28.7 27.1 - 32.0 pg MCHC 32.9 31.7 - 35.0 gm/dL Platelets 289 145 - 357 x10(3)/mcL RDWSD 42.2 37.0 - 46.0 fL RDWCV 13.1 11.5 - 14.1 % MPV 10.6 7.6 - 12.9 fL nRBC % Auto 0.0 % nRBC Abs Auto 0.000 0.000 - 0.000 x10(3)/mcL Differential, Automated Result Value Ref Range Neutrophils % 60.6 % Neutr Abs (ANC) 4.75 1.70 - 6.10 x10(3)/mcL Lymphocytes % 30.2 % Lymphocytes Abs 2.4 0.9 - 3.2 x10(3)/mcL Monocytes % 6.3 % Monocyte Abs 0.5 0.3 - 0.9 x10(3)/mcL Eosinophils % 2.2 % Eosinophils Abs 0.2 0.0 - 0.4 x10(3)/mcL Basophils % 0.3 % Basophils Abs 0.0 0.0 - 0.1 x10(3)/mcL Immature Gran % 0.40 % Roberta Gran Abs 0.03 0.00 - 0.04 x10(3)/mcL Gold Tube HOLD Result Value Ref Range Gold Hold Sample in lab. Chaves Tube Hold Result Value Ref Range Chaves Hold Sample in lab. Urinalysis with reflex Culture Result Value Ref Range Glucose UA Negative Negative mg/dL Protein UA Negative Negative mg/dL Bilirubin UA Negative Negative mg/dL Urobilinogen UA Normal Normal mg/dL pH UA 6.0 5.0 - 8.0 Blood UA Negative Negative mg/dL Ketones UA Negative Negative mg/dL Nitrite UA Negative Negative Leukocytes UA Negative Negative mcL Appearance UA Hazy (A) Clear Spec [place] UA 1.011 1.002 - 1.030 Color UA Yellow Yellow Culture [...] None Detected None Detected U Cannabinoid Screen None Detected None Detected U Oxycodone Screen None Detected None Detected U Buprenorphine Screen None Detected None Detected U Fentanyl Screen None Detected None Detected U Tricyclics Screen None Detected None Detected U Ethanol Screen None Detected None Detected U Amphetamines Screen None Detected None Detected U Adulterants Screen None Detected None Detected Basic Metabolic Panel (non-fasting) Result Value Ref Range Glucose Lvl 133 65 - 199 mg/dL BUN 11 8 - 18 mg/dL Creatinine 0.75 0.70 - 1.20 mg/dL Sodium 140 135 - 145 mmol/L Potassium 3.9 3.5 - 5.0 mmol/L Chloride 107 98 - 107 mmol/L CO2 21 (L) 22 - 31 mmol/L Anion Gap 12 5 - 15 mmol/L Calcium 9.1 8.5 - 10.5 mg/dL eGFR 105 >=60 mL/min/1.73 m?? eGFR 121 >=60 mL/min/1.73 m?? Hemogram Result Value Ref Range WBC 5.8 4.0 - 9.5 x10(3)/mcL RBC 4.37 4.00 - 5.21 x10(6)/mcL Hemoglobin 12.5 11.7 - 15.5 gm/dL Hematocrit 38.6 35.7 - 45.8 % MCV 88.3 82.6 - 94.4 fL MCH 28.6 27.1 - 32.0 pg MCHC 32.4 31.7 - 35.0 gm/dL Platelets 231 145 - 357 x10(3)/mcL RDWSD 42.6 37.0 - 46.0 fL RDWCV 13.1 11.5 - 14.1 % MPV 9.5 7.6 - 12.9 fL nRBC % Auto 0.0 % nRBC Abs Auto 0.000 0.000 - 0.000 x10(3)/mcL Differential, Automated Result Value Ref Range Neutrophils % 57.8 % Neutr Abs (ANC) 3.37 1.70 - 6.10 x10(3)/mcL Lymphocytes % 33.9 % Lymphocytes Abs 2.0 0.9 - 3.2 x10(3)/mcL Monocytes % 4.8 % Monocyte Abs 0.3 0.3 - 0.9 x10(3)/mcL Eosinophils % 2.9 % Eosinophils Abs 0.2 0.0 - 0.4 x10(3)/mcL Basophils % 0.3 % Basophils Abs 0.0 0.0 - 0.1 x10(3)/mcL Immature Gran % 0.30 % Roberta Gran Abs 0.02 0.00 - 0.04 x10(3)/mcL Diagnostic Tests and Imaging MRA - NEGATIVE MRV-NEGATIVE MRI- Small foci of T2 signal changes in the anterior grimes radiata and Sylvian fissue (pictured below respectively). Assessment and plan: This is a 31yo F with hx IIH diagnosed in 2012 on LP with OP 23 on diamox therapy who presents withworsening usual BLACKWOOD with new onset sudden stuttering and R sided hemiparesis that is uncharacteristic of her prior headaches. Neuro exam notable for significant stuttering but the patient does not appear to be be having any significant weakness on the right side. Did not appreciate the mild right abducens palsy that was reported yesterday on exam. Her MRI, MRV, MRA are unremarkable with the exception of small foci of T2 signal abnormality of the left sylvian fissure. This is unlikely related to her ongoing issues with st uttering or her weakness that was reported yesterday and felt to be more consistent with psychogenic weakness. She does not have any vessel imaging abnormalities or restricted diffusion to explain the symptoms. Patient has some improvement in her headache pain symptoms. Also on further questioning it does appear that the patient's headache is somewhat atypical for her usual headaches that are associated with IIH as her current headaches are described as sharp and stabbing. Plan is to move forward with an LP under fluoroscopy and engage ophthalmology for formal eye evaluation. Will also engageSLP for her ongoing issues with stuttering which is frustrating and disconcerting for the patient. P atient does admit to being excessively stressed and is anxious about undergoing the lumbar puncture. A Valium challenge could be considered to see if her symptoms resolve with the administration of anxiolytics. Plan # IIH with worsening BLACKWOOD; speech changes, R sided weakness (resolved) - Admit to neurology , floor status, Q4/4 vitals and neuro checks - IR LP with OP (bedside LP precluded by body habitus) - MRI brain non contrast-COMPLETED -consider enhanced examination and susceptibility weighted sequences - MRV - COMPLETED -MRA head-COMPLETED - Continue home diamox 120/500mg--can increase to 250/500 if tolerated (had paresthesias on the 500mg bid dosing) - Prn BLACKWOOD mgm with IV ketorolac, mag, hydroxyzine , IV Magnesium - Opthalmology consulted # home meds None Full code DVT ppx: lovenox Dispo; pending workup Patrick Cox MD 11/16/2017 Neurology resident, PGY-4 General neurology pager [phone] jordin seems non physiologic will get speech therapy input I saw and evaluated the patient with Dr. Cox. I have reviewed the resident's history during the visit and I agree with the details as written. My neurological examination confirms the resident's findings. The assessment and plan were formulated in discussion with me at the time of the visit and I agree with them as documented. .Melo Orona MD Discussed at length with patient and family about diagnostic considerations. Explained diagnosis and treatment of pseudotumor. I went over medications, indications and side-effects. Patient understands and accepts our plan..Melo Orona MD documented in this encounter H&P Notes * Melo Orona MD - 11/15/2017 2:02 PM EDT Neurology Consult Note Patient name: Kimberli Bales Date of : 1985 PCP: Amada Carson MD CC: Headaches with word finding difficulty and concern for right sided weakness HPI: This is a 31yo F with hx IIH diagnosed in 2010 (OP 23) previously followed by neurology 5 years ago, on diamox, who presents with worsening BLACKWOOD with associated word finding difficulties and since2 days ago, worsening confusion. She was evaluated in the headache clinic in 05/2012. Headaches started after c- section and were characterized by right frontal/temporal, throbbing with tinnitus and without migrainous features of phonophobia, photophobia or nausea. No particular exacerbating or alleviating factors. She endorsed tunnel vision. LP with OP was 23 initially. There were some concerns of papilledema on fundoscopic exam.MRI brain in 2011 was normal. She was placed on diamox 125bid initially. Had failed amitriptyline and topamax previously. She was sent to neuro-opthalmology for evaluation. Repeat LP with OP 08/2012 was 17. Pt has since been lost to neurology follow up. She states that her BLACKWOOD were relatively well controlled over the years until this June when her Blackwood and tinnitus returned. She went to her PCP who put her back on diamox 1000mg QD with improvement in symptoms but SE tingling, so her PCP lowered the dose to 125/500mg. Pt presents to ED today due to worsening acute BLACKWOOD that started last Saturday. Had sharp right frontalHA with visual changes. This Blackwood was same has prior BLACKWOOD characterization. She felt disoriented and forgot where she was. She hasn't been feeling great this week--denies fevers, malaise. Since 2d ago, started with word salad and stuttering/expressive aphasia which has continued since. Also has developed focal right sided hemiparesis--never had this before with her headaches. No focal tinging/numbness, no focal weakness, no facial droop. ED course: SBPs in 160s Utox negative, Cbc and cmp unremarkable CTH negative Review of systems: Constitutional: No fevers or [...] See HPI Psych: No depression, normal sleep Past Medical History: Past Medical History: Diagnosis Date ??? Allergic state ??? Pseudotumor cerebri ??? Strabismus Medications: Your Medications UNREVIEWED medications - Discuss With Your Provider Dose Details TYLENOL ORAL Take by mouth as needed. Refills: 0 Past Surgical History: Procedure Laterality Date ??? PRO STABISMUS SURG,ONE HORIZ MUSCLE Bilateral 12/31/2013 STRABISMUS SURGERY, ONE HORIZONTAL MUSCLE, JEFF performed by Genevieve Walsh MD at [facility] ??? PRO STABISMUS SURG,TWO HORIZ MUSCLE Right 02/01/2014 STRABISMUS SURGERY, TWO HORIZONTAL MUSCLES performed by Genevieve Walsh MD at [facility] ??? PRO STRABISMUS SURG,PLACE ADJUST SUTURE Right 12/31/2013 STRABISMUS SURGERY, PLACEMENT OF ADJUSTABLE SUTURES IN CONJUNCTION W/ ANOTHER SURGERY performed by Genevieve Walsh MD at [facility] ??? PRO STRABISMUS SURG,SCAR EXTRAOCUL MUSC Right 02/01/2014 STRABISMUS SURGERY WITH SCARRING OF EXTRAOCULAR MUSCLES IN CONJUNCTION W/ ANOTHER SURGERY performedby Genevieve Walsh MD at [facility] Family History: Family History Problem Relation Age of Onset ??? Hypertension Father ??? Retinal Detachment Father ??? Cataracts Maternal Grandmother ??? Diabetes Maternal Grandmother ??? Glaucoma Maternal Grandmother ??? Cataracts Maternal Grandfather ??? Macular Degeneration Neg Hx ??? Strabismus Neg Hx ??? Thyroid Disease Neg Hx ??? Heart Disease Neg Hx ??? Amblyopia Neg Hx ??? 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 Physical Exam: Most Recent Vitals: 11/15/17 1223 BP: (!) 167/132 Pulse: 71 Resp: 16 Temp: SpO2: 99% Gen: NAD , obese female Neck: Supple, no Meningismus CV: + S1, S2, RRR, no murmur Resp: CTA B/L Abd:non distended Ext: No edema. No bony deformity Neuro Exam: MS: significant stuttering and word finding difficulties that is c/w non physiologic etiolgoy no dysarthria, follows command CN: PERRL, EOM with mild Right CN palsy, visual ling full Fundoscopic exam with papilledema on R Facial sensation intact, no facial asymmetry Motor: Normal bulk and tone. UE: 4/5 R, 5/5 L Arm abduction at shoulder 4/5 R, 5/5 L Elbow extension 4/5 R, 5/5 L Elbow flexion 4/5 R, 5/5 L Retail Custodial Associate LE: 4/5 R, 5/5 L Hip flexion 4/5 R, 5/5 L Knee extension 4/5 R, 5/5 L Knee flexion 4/5 R, 5/5 L Foot dorsiflexion 4/5 R, 5/5 L Foot plantar flexion Sensation: Intact to light touch throughout Reflexes: DTRs 2+ R, 2+ L Biceps 2+ R, 2+ L Brachioradialis 2+ R, 2+ L Triceps 2+ R, 2+ L Patellar 2+ R, 2+ L Achilles tendon Toes - R down, L down Coordination: Finger to nose intact, no dysmetria No tremor Gait:not assessed Labs: Recent Results (from the past 24 hour(s)) Basic Metabolic Panel (non-fasting) Result Value Ref Range Glucose Lvl 95 65 - 199 mg/dL BUN 10 8 - 18 mg/dL Creatinine 0.72 0.70 - 1.20 mg/dL Sodium 139 135 - 145 mmol/L Potassium 3.8 3.5 - 5.0 mmol/L Chloride 105 98 - 107 mmol/L CO2 20 (L) 22 - 31 mmol/L Anion Gap 14 5 - 15 mmol/L Calcium 9.7 8.5 - 10.5 mg/dL eGFR 110 >=60 mL/min/1.73 m?? eGFR 128 >=60 mL/min/1.73 m?? Prothrombin Time Result Value Ref Range PT 11.4 9.4 - 12.5 sec INR 1.0 TSH Result Value Ref Range TSH 1.81 0.27 - 4.20 mlU/ML CRP, acute inflammation Result Value Ref Range CRP 13.9 (H) <=4.9 mg/L Sedimentation rate Result Value Ref Range Sed Rate 16 0 - 20 mm/hr Hemogram Result Value Ref Range WBC 7.8 4.0 - 9.5 x10(3)/mcL RBC 4.74 4.00 - 5.21 x10(6)/mcL Hemoglobin 13.6 11.7 - 15.5 gm/dL Hematocrit 41.4 35.7 - 45.8 % MCV 87.3 82.6 - 94.4 fL MCH 28.7 27.1 - 32.0 pg MCHC 32.9 31.7 - 35.0 gm/dL Platelets 289 145 - 357 x10(3)/mcL RDWSD 42.2 37.0 - 46.0 fL RDWCV 13.1 11.5 - 14.1 % MPV 10.6 7.6 - 12.9 fL nRBC % Auto 0.0 % nRBC Abs Auto 0.000 0.000 - 0.000 x10(3)/mcL Differential, Automated Result Value Ref Range Neutrophils % 60.6 % Neutr Abs (ANC) 4.75 1.70 - 6.10 x10(3)/mcL Lymphocytes % 30.2 % Lymphocytes Abs 2.4 0.9 - 3.2 x10(3)/mcL Monocytes % 6.3 % Monocyte Abs 0.5 0.3 - 0.9 x10(3)/mcL Eosinophils % 2.2 % Eosinophils Abs 0.2 0.0 - 0.4 x10(3)/mcL Basophils % 0.3 % Basophils Abs 0.0 0.0 - 0.1 x10(3)/mcL Immature Gran % 0.40 % Roberta Gran Abs 0.03 0.00 - 0.04 x10(3)/mcL Gold Tube HOLD Result Value Ref Range Gold Hold Sample in lab. Chaves Tube Hold Result Value Ref Range Chaves Hold Sample in lab. Urinalysis with reflex Culture Result Value Ref Range Glucose UA Negative Negative mg/dL Protein UA Negative Negative mg/dL Bilirubin UA Negative Negative mg/dL Urobilinogen UA Normal Normal mg/dL pH UA 6.0 5.0 - 8.0 Blood UA Negative Negative mg/dL Ketones UA Negative Negative mg/dL Nitrite UA Negative Negative Leukocytes UA Negative Negative mcL Appearance UA Hazy (A) Clear Spec [place] UA 1.011 1.002 - 1.030 Color UA Yellow Yellow Culture [...] None Detected None Detected U Cannabinoid Screen None Detected None Detected U Oxycodone Screen None Detected None Detected U Buprenorphine Screen None Detected None Detected U Fentanyl Screen None Detected None Detected U Tricyclics Screen None Detected None Detected U Ethanol Screen None Detected None Detected U Amphetamines Screen None Detected None Detected U Adulterants Screen None Detected None Detected Diagnostic Tests and Imaging CTH- unremarkable Assessment and plan: This is a 31yo F with hx IIH diagnosed in 2013 on LP with OP 23 on diamox therapy who presents withworsening usual BLACKWOOD with new onset sudden stuttering and R sided hemiparesis that is uncharacteristic of her prior headaches. Neuro exam notable for significant non physiological stuttering. Has right abducens nerve palsy andfundoscopic exam corresponding to R papilledema that is likely related to her IIH. 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 Low concern that this is acute stroke. Differentials including sagittal thrombosis, cavernous abn also considered but deemed less likely. Would recommend obtaining MRI brain stat, MRA head and MRV for evaluation of aforementioned causes.She will repeat LP with OP. I explained to pt that given ongoing nature of her symptoms, she likelybe admitted for workup. Will also need opthalmology re-evaluation. For now, will continue home diamox and increase as tolerated. Will symptomatically manage BLACKWOOD as below. Plan # IIH with worsening BLACKWOOD; speech changes, R sided weakness - Admit to neurology , floor status, Q4/4 vitals and neuro checks - IR LP with OP (bedside LP precluded by body habitus) - MRI brain non contrast - MRV - If found with sagittal thrombosis, would recommend anticoagulation -MRA head - Continue home diamox 120/500mg--can increase to 250/500 if tolerated (had paresthesias on the 500mg bid dosing) - Prn BLACKWOOD mgm with IV ketorolac, mag, hydroxyzine - Opthalmology consult # home meds None Full code DVT ppx: lovenox Dispo; pending workup Robbin Mejia MD 11/15/2017 Neurology resident, PGY-3 General neurology pager [phone] Stuttering/weakness seem non physiologic I saw and evaluated the patient with . I have reviewed the resident's history during the visitand I agree with the details as written. My neurological examination confirms the resident's findings. The assessment and plan were formulated in discussion with me at the time of the visit and I agree with them as documented. . Discussed at length with patient and friend about diagnostic considerations. Explained diagnosis and treatment.. I went over medications, indications and side-effects. Patient understands and accepts our plan. .Melo Orona MD documented in this encounter ED Notes * Octavio Huston RN - 11/15/2017 5:11 PM EDT Report called to Mike on 5W. Patient will go to MRI first. * Jill Velazquez MD - 11/15/2017 3:38 PM EDT ED Resident Note Kimberli Bales is a 31 y.o. female who presents to the ED with: Chief Complaint Patient presents with ??? Altered Mental Status memory loss HPI Kimberli Bales is a 31 y.o. female with hx of IIH and BLACKWOOD who presents to the Emergency Department with episodic confusion, and weakness. Patient has extreme difficulty initiating words and is stuttering profoundly. She is accompanied by her who assists her in telling her story. She states that she had IIH in the past and Neurology at [facility] started her on Diamox and she occasionally rece ived therapeutic lumbar punctures for relief of her headache. She was symptom- free for several years until her headaches began again in June. She saw her PCP and due to ongoing headache was started onDiamox about 1 month ago with good relief of her headache. She typically has right-sided headaches that hurt behind her right eye and are sharp and stabbing in nature. They are often accompanied by nausea but no emesis or blurred vision. She states that she has had multiple intense headaches over the past week that radiate to her right zoroastrian and occasionally cause blurry vision in her right eye.She denies history of migraine. On Saturday, she developed some issues with her short-term memory andher notes occasional confusion. For example, she was painting the nails on her left hand but forgot to paint two nails. She burned dinner last night, which never happens. She denies association of the memory issues and confusion with her headache. She also started stuttering 2 days ago. No history of head trauma or falls. She feels that her right arm is weak with decreased sensation. No di fficulties walking, back pain or bowel or bladder issues. She denies neck pain or rash. Her PCP ordered an outpatient MRI of her head today at [facility]. Her brought her to the ED today due to her2 days of confusion and difficulty speaking. Her BLACKWOOD is mild right now and feels like it is improving on the diamox. Review of Systems: Review of Systems Constitutional: Negative for diaphoresis and fever. HENT: Negative for trouble swallowing. Eyes: Negative for visual disturbance. Respiratory: Negative for chest tightness and shortness of breath. Cardiovascular: Negative for chest pain. Gastrointestinal: Negative for abdominal pain, nausea and vomiting. Genitourinary: Negative for dysuria. Musculoskeletal: Negative for gait problem and neck pain. Skin: Negative for rash. Neurological: Positive for speech difficulty, weakness and headaches. Negative for dizziness, syncope, light-headedness and numbness. Psychiatric/Behavioral: Negative for confusion and dysphoric mood. Physical Exam: Patient Vitals for the past 24 hrs: BP Temp Temp src Pulse Resp SpO2 11/15/17 1223 (!) 167/132 - - 71 16 99 % 11/15/17 1200 124/75 - - 71 16 98 % 11/15/17 1039 136/85 - - - - 98 % 11/15/17 1019 149/89 36.6 ??C (97.9 ??F) Oral 76 16 98 % Physical Exam Constitutional: She is oriented to person, place, and time. She appears well- developed and well-nourished. Stuttering with initiation of speech. Speech clear otherwise. HENT: Head: Normocephalic and atraumatic. Eyes: Conjunctivae and EOM are normal. Pupils are equal, round, and reactive to light. Fundoscopic exam: The right eye shows no hemorrhage. The left eye shows no hemorrhage. Neck: Normal range of motion. Neck supple. Cardiovascular: Normal rate, regular rhythm, normal heart sounds and intact distal pulses. Pulmonary/Chest: Effort normal and breath sounds normal. Abdominal: Soft. Bowel sounds are normal. There is no tenderness. Musculoskeletal: Normal range of motion. Neurological: She is alert and oriented to person, place, and time. She displays no tremor. A sensory deficit is present. No cranial nerve deficit. Gait normal. GCS eye subscore is 4. GCS verbal subscore is 5. GCS motor subscore is 6. Motor and light touch decreased throughout RUE. Intact to needle poke. Decreased motor seems to be related to effort and is somewhat distractable. Skin: Skin is warm and dry. Psychiatric: She has a normal mood and affect. Nursing note and vitals reviewed. ED Course: Patient was evaluated and discussed with Dr. Marina Cole, allergies, and PMH reviewed. Nursing notes and VS reviewed. Recent Results (from the past 24 hour(s)) Basic Metabolic Panel (non-fasting) Result Value Ref Range Glucose Lvl 95 65 - 199 mg/dL BUN 10 8 - 18 mg/dL Creatinine 0.72 0.70 - 1.20 mg/dL Sodium 139 135 - 145 mmol/L Potassium 3.8 3.5 - 5.0 mmol/L Chloride 105 98 - 107 mmol/L CO2 20 (L) 22 - 31 mmol/L Anion Gap 14 5 - 15 mmol/L Calcium 9.7 8.5 - 10.5 mg/dL eGFR 110 >=60 mL/min/1.73 m?? eGFR 128 >=60 mL/min/1.73 m?? Prothrombin Time Result Value Ref Range PT 11.4 9.4 - 12.5 sec INR 1.0 TSH Result Value Ref Range TSH 1.81 0.27 - 4.20 mlU/ML CRP, acute inflammation Result Value Ref Range CRP 13.9 (H) <=4.9 mg/L Sedimentation rate Result Value Ref Range Sed Rate 16 0 - 20 mm/hr Hemogram Result Value Ref Range WBC 7.8 4.0 - 9.5 x10(3)/mcL RBC 4.74 4.00 - 5.21 x10(6)/mcL Hemoglobin 13.6 11.7 - 15.5 gm/dL Hematocrit 41.4 35.7 - 45.8 % MCV 87.3 82.6 - 94.4 fL MCH 28.7 27.1 - 32.0 pg MCHC 32.9 31.7 - 35.0 gm/dL Platelets 289 145 - 357 x10(3)/mcL RDWSD 42.2 37.0 - 46.0 fL RDWCV 13.1 11.5 - 14.1 % MPV 10.6 7.6 - 12.9 fL nRBC % Auto 0.0 % nRBC Abs Auto 0.000 0.000 - 0.000 x10(3)/mcL Differential, Automated Result Value Ref Range Neutrophils % 60.6 % Neutr Abs (ANC) 4.75 1.70 - 6.10 x10(3)/mcL Lymphocytes % 30.2 % Lymphocytes Abs 2.4 0.9 - 3.2 x10(3)/mcL Monocytes % 6.3 % Monocyte Abs 0.5 0.3 - 0.9 x10(3)/mcL Eosinophils % 2.2 % Eosinophils Abs 0.2 0.0 - 0.4 x10(3)/mcL Basophils % 0.3 % Basophils Abs 0.0 0.0 - 0.1 x10(3)/mcL Immature Gran % 0.40 % Roberta Gran Abs 0.03 0.00 - 0.04 x10(3)/mcL Gold Tube HOLD Result Value Ref Range Gold Hold Sample in lab. Chaves Tube Hold Result Value Ref Range Chaves Hold Sample in lab. Urinalysis with reflex Culture Result Value Ref Range Glucose UA Negative Negative mg/dL Protein UA Negative Negative mg/dL Bilirubin UA Negative Negative mg/dL Urobilinogen UA Normal Normal mg/dL pH UA 6.0 5.0 - 8.0 Blood UA Negative Negative mg/dL Ketones UA Negative Negative mg/dL Nitrite UA Negative Negative Leukocytes UA Negative Negative mcL Appearance UA Hazy (A) Clear Spec [place] UA 1.011 1.002 - 1.030 Color UA Yellow Yellow Culture [...] None Detected None Detected U Cannabinoid Screen None Detected None Detected U Oxycodone Screen None Detected None Detected U Buprenorphine Screen None Detected None Detected U Fentanyl Screen None Detected None Detected U Tricyclics Screen None Detected None Detected U Ethanol Screen None Detected None Detected U Amphetamines Screen None Detected None Detected U Adulterants Screen None Detected None Detected Meds and fluid administered: Medications - No data to display Relevant imaging findings: CT Head wo Contrast (Generic) Final Result No acute intracranial process. Consults: Neurology ED Course Jill Velazquez's Documentation Value Comment Time CRP: (!) 13.9 (Reviewed) 11/15 1309 Nitrite UA: Negative (Reviewed) 11/15 1311 Sed Rate: 16 (Reviewed) 11/15 1311 TSH: 1.81 (Reviewed) 11/15 1311 U Cocaine Screen: None Detected (Reviewed) 11/[address] Head wo Contrast (Generic) (Reviewed) 11/15 135 Assessment and Plan: MEDICAL DECISION MAKIN y.o. female with hx of IIH who presents with constellation of neuro symptoms including stuttering speech, R arm numbness and motor weakness in the setting of recurrent ongoing IIH. Her funduscopic exam demonstrates mild papilledema bilaterally, unsure of the significanceof this given her chronic symptoms. Her headache is mild today and is not her main complaint. We were more concerned about possible cerebral venous thrombosis speech and neuro deficits, although her exam is somewhat inconsistent and may be volitional in nature. Neurology was consulted for assistance and evaluation and guidance with imaging. CT imaging was negative for an acute bleed or obvious mas s. Her symptoms do not seem consistent with TIA given that they have lasted for greater than 48 hours. She was very well-appearing with normal vital signs and HD stable, I highly doubt any serious process like meningitis/encephalitis. Neuro recommendations are pending at the time of handoff. Reviewed indications for which to seek emergent medical care. All questions were answered, and the patient expressed understanding of the plan. ASSESSMENT: Speech and motor deficit PLAN: - dispo: Neuro recs Jill Velazquez MD EM PGY-3 11/15/2017 Please excuse any errors. This note was dictated with Superbly software. Jill Velazquez MD Resident 11/15/17 4702 Jill Velazquez MD Resident 11/15/17 0192 Associated attestation - Joelle Gray MD - 11/27/2017 4:26 PM EDT ED ATTENDING ATTESTATION The patient was seen in conjunction with the resident physician. I have independently performed thekey portions of the history and physical exam. I have personally reviewed nursing notes, vital signs, and diagnostic studies including labs, imaging studies and EKGs. I have discussed the details of the case with the resident and agree with the assessment and plan as described in the resident's note, unless stated otherwise in my separate note. * Alonzo Berry MD - 11/15/2017 3:25 PM EDT ED RESIDENT FOLLOW-UP NOTE: Time of transfer of care: 3:25 PM Care transferred from: MD Caroline Condition at time of transfer: stable Clinical Summary: 31 y.o. old female in the process of being evaluated for AMS. Please see Dr. Velazquez's notes for their initial evaluation, assessment and plan. Briefly, 31-year-old female presentingwith stuttering speech. Subsequent ED Course: -Neurology has seen the patient is planning to admit Alonzo Berry MD Resident 11/15/17 0062 Associated attestation - Marita Kate MD - 11/26/2017 10:59 AM EDT ED ATTENDING ATTESTATION NOTE The [...] resident note above unless noted otherwise below. ED Course documented in this encounter Miscellaneous Notes * Plan of Care - Anay Wilson RN - 11/17/2017 3:47 AM EDT Problem: Patient Care Overview Goal: Plan of Care Review Outcome: Ongoing (Interventions Implemented as Appropriate) 11/16/17 1739 09/29/18 1943 Plan of Care Review Progress progress toward functional goals as expected -- Coping/Psychosocial Plan Of Care Reviewed With -- patient;spouse OUTCOME EVALUATION NOTE: OUTCOME SUMMARY: Vital signs for past 24 H Temp: [36.4 ??C (97.5 ??F)-36.8 ??C (98.2 ??F)] Heart Rate: [63-74] Resp: [16-18] BP: (117-151)/(70-96) SpO2: [96 %-98 %] Heart Rate from SPO2: [74 bpm] A&O x4, strengths 5/5 LUE and LLE. 4/5 RUE and RLE. Patient reports numbness in right and blurred vision in right eye. Left eye noted to be 1mm larger. Neurology paged. No changes to plan of caremade. VSS. Systems WNL. Speech is hesitant. No aphasia and no stuttering noted. H/A treated with Atarax and it provided a small positive effect. Spouse supportive of patient and at bedside. Patient in deep sleep, snoring through the night. Patient awoke at 0500 and c/o severe h/a across the frontal region. It's pretty bad patient states. 30mg IV toradol and 25mg ATARAX given for pain management. Neurology notified by radio page. ?? PLAN MOVING FORWARD: Continue to monitor patient progress with treatment. Opthalmology consult Discharge plannign ?? INDIVIDUALIZED FALL PREVENTION INTERVENTIONS : Pt at RISK OF FALLS. Supervised activities ?? Patient-specific fall risk factors per assessment: [current deficits]: Unfamiliar environment, medications ?? Assistance [level of assistance required for transfers and ambulation]: SBA ? Supervision [direct monitoring required during toileting and ADLs]: Monitoring during toileting andADLs eyes on ? Surveillance [continuous indirect monitoring]: Bed locked in low position, call eubanks within reach, Hourly rounding by RN/KENRICK. Bed alarm / Chair alarm. ? Patient-specific fall prevention interventions for sensory deficits provided, if applicable: [X] N/A CPG GOAL OUTCOME EVALUATION: Goal: Individualization & Mutuality Outcome: Ongoing (Interventions Implemented as Appropriate) 11/16/17 1300 Mutuality/Individual Preferences What Anxieties, Fears or Concerns Do You Have About Your Health or Care? none What Questions Do You Have About Your Health or Care? When will my lumbar puncture happen? What Information Would Help Us Give You More Personalized Care? nothing Goal: Fall Prevention-Safe Patient Handling Outcome: Ongoing (Interventions Implemented as Appropriate) 11/16/17194211/17/17 0000 Daily Care Interventions Self-Care Promotion independence encouraged;BADL personal objects within reach;BADL personal routines maintained -- [place] Fall Risk History of Falling 0 -- Secondary Diagnosis 15 -- Ambulatory Aids 0 -- Intravenous Therapy/Heparin/Saline Lock 20 -- Gait/Transferring 0 -- Mental Status 0 -- Score 35 -- OTHER [place] Fall Risk Med -- Restraint Interventions Safety Promotion/Fall Prevention activity supervised;fall prevention program maintained;nonskid shoes/slippers when out of bed;safety round/check completed -- Positioning Body Position -- independent Activity Activity Type activity adjusted per tolerance -- Activity Assistance Provided independent -- Assistive Device Utilized none -- Goal: Infection Control Outcome: Ongoing (Interventions Implemented as Appropriate) 11/16/171942 Safety Interventions Isolation Precautions standard precautions maintained Infection Prevention environmental surveillance performed;equipment surfaces disinfected;personal protective equipment utilized;rest/sleep promoted Coping Strategies Supportive Measures active listening utilized;decision-making supported;positive reinforcement provided;self-care encouraged;verbalization of feelings encouraged Goal: Discharge Needs Assessment Outcome: Ongoing (Interventions Implemented as Appropriate) 11/16/17 0445 11/16/17 1300 Discharge Needs Assessment Concerns To Be Addressed no discharge needs identified -- Discharge Disposition still a patient -- Living Environment Transportation Available -- car;family or friend will provide Goal: Interdisciplinary Rounds/Family Conf Outcome: Ongoing (Interventions Implemented as Appropriate) 11/16/17 0445 Interdisciplinary Rounds/Family Conf Participants patient;family;nursing;physician * Plan of Care - oIana Pizarro RN - 11/16/2017 5:47 PM EDT Problem: Patient Care Overview Goal: Plan of Care Review Outcome: Ongoing (Interventions Implemented as Appropriate) 11/16/17 0911/16/17 1739 Plan of Care Review Progress -- progress toward functional goals as expected Coping/Psychosocial Plan Of Care Reviewed With patient;spouse -- OUTCOME EVALUATION NOTE: OUTCOME SUMMARY: VSS Spouse, children, and family at bedside. Pt reported headache, given magnesium (see APR). Pt reported headache resolved. Pt had LP under fluoro. Pt given 1mg ativan prior to LP (APR). Upon return, pt speaking clearly andstutter had resolved. Bedrest in supine position to apply pressure post LP for 1 hour. D/C planning. PLAN MOVING FORWARD: Monitor neuro status. Provide pain management for BLACKWOOD. D/C planning. INDIVIDUALIZED FALL PREVENTION INTERVENTIONS: Patient-specific fall risk factors per assessment: right sided weakness, neuro deficit Assistance: SBA Supervision: Independent Surveillance: Bed locked in low position, call eubanks within reach, purposeful hourly rounding, clutter free environment, bed/chair alarm on, family at bedside Patient-specific fall prevention interventions for sensory deficits provided: Yes CPG GOAL OUTCOME EVALUATION: Continue care plan as documented. * Plan of Care - Anay Wilson RN - 11/16/2017 5:19 AM EDT Problem: Patient Care Overview Goal: Plan of Care Review Outcome: Ongoing (Interventions Implemented as Appropriate) 11/15/17199911/16/17 0445 Plan of Care Review Progress -- no change Coping/Psychosocial Plan Of Care Reviewed With patient;spouse -- OUTCOME EVALUATION NOTE: OUTCOME SUMMARY: Vital signs for past 24 H Temp: [36.5 ??C (97.7 ??F)-36.7 ??C (98.1 ??F)] Heart Rate: [67-76] Resp: [16-20] BP: (124-167)/(75-132) SpO2: [96 %-99 %] Heart Rate from SPO2: [65 bpm-79 bpm] A&O x4, strengths 5/5 for all, PERRL, VSS. Systems WNL. Speech is hesitant, aphasic, with stuttering. H/A treated with IV toradol with no effectiveness. Atarax provided only a minimal positive effect. Spouse supportive of patient and at bedside. Spouse provided patient with takeout food for dinner as she did not want to eat all of the cafeteria dinner tray. Patient able to sleep through the night between assessments. PLAN MOVING FORWARD: Continue to monitor patient progress with treatment. LP under flouroscopy INDIVIDUALIZED FALL PREVENTION INTERVENTIONS : Pt at RISK OF FALLS. Supervised activities Patient-specific fall risk factors per assessment: [current deficits]: Unfamiliar environment, medications Assistance [level of assistance required for transfers and ambulation]: SBA Supervision [direct monitoring required during toileting and ADLs]: Monitoring during toileting andADLs eyes on Surveillance [continuous indirect monitoring]: Bed locked in low position, call eubanks within reach, Hourly rounding by RN/KENRICK. Bed alarm / Chair alarm. Patient-specific fall prevention interventions for sensory deficits provided, if applicable: [X] N/A CPG GOAL OUTCOME EVALUATION: Goal: Fall Prevention-Safe Patient Handling Outcome: Ongoing (Interventions Implemented as Appropriate) 11/15/17199911/15/17219911/16/17444 Daily Care Interventions Self-Care Promotion -- -- independence encouraged;BADL personal objects within reach;BADL personal routines maintained [place] Fall Risk History of Falling 0 -- -- Secondary Diagnosis 15 -- -- Ambulatory Aids 0 -- -- Intravenous Therapy/Heparin/Saline Lock 20 -- -- Gait/Transferring 0 -- -- Mental Status 0 -- -- Score 35 -- -- OTHER [place] Fall Risk Med -- -- Restraint Interventions Safety Promotion/Fall Prevention -- safety round/check completed -- Positioning Body Position independent -- -- Activity Activity Type activity adjusted per tolerance -- -- Activity Assistance Provided assistance, stand-by -- -- Assistive Device Utilized none -- -- Goal: Infection Control Outcome: Ongoing (Interventions Implemented as Appropriate) 11/15/171999 Safety Interventions Isolation Precautions standard precautions maintained Infection Prevention environmental surveillance performed;equipment surfaces disinfected;personal protective equipment utilized;rest/sleep promoted Coping Strategies Supportive Measures active listening utilized;decision-making supported;positive reinforcement provided;relaxation techniques promoted;self-care encouraged;verbalization of feelings encouraged Goal: Discharge Needs Assessment Outcome: Ongoing (Interventions Implemented as Appropriate) 11/16/17444 Discharge Needs Assessment Concerns To Be Addressed no discharge needs identified Discharge Disposition still a patient Goal: Interdisciplinary Rounds/Family Conf Outcome: Ongoing (Interventions Implemented as Appropriate) 11/16/17444 Interdisciplinary Rounds/Family Conf Participants patient;family;nursing;physician * Plan of Care - Elder Moreno RN - 11/15/2017 7:45 PM EDT Problem: Patient Care Overview Goal: Plan of Care Review OUTCOME EVALUATION NOTE: OUTCOME SUMMARY: Pt arrived to room from ED, ambulated from stretcher to bed SBA, pt noted having word finding and stuttering speech states for the past 2 days, Rt extremities strengths noted at 4/5 w/ RUE drift noted, pt A&Ox4, and aunt at bedside w/ pt, pt complains of BLACKWOOD rated as 7/10 PRN tordal administered. WCTM. PLAN MOVING FORWARD: LP Discharge planning INDIVIDUALIZED FALL PREVENTION INTERVENTIONS: Patient-specific fall risk factors per assessment: [current deficits]: Rt weakness, hospital environment, medical devices Assistance [level of assistance required for transfers and ambulation]: SBA Supervision [direct monitoring required during toileting and ADLs]: Eyes on Surveillance [continuous indirect monitoring]: Masimo, bed low and locked, call light within reach,purposeful hourly rounding, bed alarm active, clutter free environment. Patient-specific fall prevention interventions for sensory deficits provided, if applicable: [X] N/A CPG GOAL OUTCOME EVALUATION: * ED Triage - Medardo Arias RN - 11/15/2017 10:20 AM EDT Concious and alert female with reported difficulty forming words and sentences. Patients reports this has been ongoing for the past week but worsening in the past 2 days. Patient has reportedly been forgetful. Patient is stuttering when talking and difficulty finding the words. Patient patient has no facial drooping, no slurred speech, mild arm drift and weakness on the right arm. Patientreports 8/10 H/A on the right zoroastrian and reports vision difficulty in the right eye. documented in this encounter Plan of Treatment Scheduled Referrals Name Type Priority Associated Diagnoses Order Schedule Referral to Ophthalmology Outpatient Referral Routine Neurological deficit present Ordered: 11/17/2017 documented as of this encounter Procedures Procedure Name Priority Date/Time Associated Diagnosis Comments XR FLUORO GUIDED LUMBAR PUNCTURE STAT 11/16/2017 4:32 PM EDT 4 TOTAL TUBES SENT CSF Routine 8 3:55 PM EDT CSF CELL COUNT Routine 11/16/2017 3:55 PM EDT CSF DESC 4 Routine 11/16/2017 3:55 PM EDT CSF DESC 3 Routine 11/16/2017 3:55 PM EDT CSF DESC 2 Routine 11/16/2017 3:55 PM EDT CSF DESC 1 Routine 11/16/2017 3:55 PM EDT CSF CELL COUNT 2ND COUNT Routine 11/16/2017 3:55 PM EDT CSF CULTURE Routine 11/16/2017 3:55 PM EDT PROTEIN LEVEL CSF Routine 11/16/2017 3:5 5 PM EDT GLUCOSE LEVEL CSF Routine 11/16/2017 3:5 5 PM EDT HEMOGRAM Routine 11/16/2017 8:40 AM EDT DIFFERENTIAL, AUTOMATED Routine 11/16/2017 8:40 AM EDT CBC (WITH DIFF) Routine 11/16/2017 8:40 AM EDT BASIC METABOLIC PANEL Routine 11/16/2017 8:40 AM EDT MR VENOGRAM HEAD WITHOUT CONTRAST STAT 11/15/2017 7:00 PM EDT MRI HEAD ANGIOGRAM WO CONTRAST Routine 11/15/2017 7:00 PM EDT MRI BRAIN WO CONTRAST STAT 11/15/2017 7:[address] HEAD WO CONTRAST (GENERIC) STAT 11/15/2017 12:40 PM EDT RAPID DRUG SCREEN, URINE STAT 11/15/2017 12:33 PM EDT RAPID DRUG SCREEN W/O CONFIRMATION, URINE STAT 11/15/2017 12:33 PM EDT URINALYSIS WITH REFLEX CULTURE STAT 11/15/2017 12:33 PM EDT EKG 12-LEAD STAT 11/15/2017 12:27 PM EDT CRP, ACUTE INFLAMMATION STAT 11/15/2017 11:30 AM EDT CHAVES TUBE HOLD STAT 11/15/2017 11:30 AM EDT HEMOGRAM STAT 11/15/2017 11:30 AM EDT DIFFERENTIAL, AUTOMATED STAT 11/15/2017 11:30 AM EDT GOLD TUBE HOLD STAT 11/15/2017 11:30 AM EDT SEDIMENTATION RATE STAT 11/15/2017 11 :30 AM EDT PROTHROMBIN TIME STAT 11/15/2017 11:3 0 AM EDT CBC (WITH DIFF) STAT 11/15/2017 11:30 AM EDT TSH STAT 11/15/2017 11:30 AM EDT BASIC METABOLIC PANEL STAT 11/15/2017 11:30 AM EDT documented in this encounter Results * XR Fluoro Lumbar Puncture (11/16/2017 4:32 PM EDT) Anatomical Region Laterality Modality L-spine N/A Radio Fluoroscop y Impressions 11/16/2017 5:22 PM EDT Uncomplicated fluoroscopic guided lumbar puncture for diagnostic purposes. I was present for the choice in approach only. Preliminary report signed by: SAMSON CHEN at 11/16/2017 5:18 PM I have personally reviewed the image(s) and the residents interpretation and agree with the findings, Nisa Molina at 11/16/2017 5:22 PM Narrative 11/16/2017 5:22 PM EDT EXAMINATION: XR FLUORO LUMBAR PUNCTURE DIAGNOSIS CLINICAL HISTORY: hx IIH worsening BLACKWOOD on diamox, eval for ICP. bedside LP precluded by BMI/body habitus, Please obtain high volume tap for therapeutic benefit COMPARISON: None. TECHNIQUE: The patient was informed of the risks and benefits of the procedure and written informed consent was obtained. The patient was placed prone on the fluoroscopic table and the L2-L3 approach was marked under fluoroscopic visualization. The patient was prepped and draped using sterile technique. 1% lidocaine was used for local anesthesia. A 6 inch 22-gauge spinal needle was advanced under intermittent fluoroscopic guidance using an interspinous L2-L3 approach. There was return of initially blood-tinged CSF, which subsequently cleared during time of collection. Opening pressure was 4 cm of water. Approximately 6 cc of CSF was collected for lab work. Closing pressure was 4 cm of water. Stylet was replaced before the needle was withdrawn. No immediate complications. Fluoroscopy time: 0.20 minutes. FINDINGS: 1. Opening pressure was 4 cm of water. Closing pressure was 4 cm of water. 2. 6 cc of CSF was sent for lab work. Procedure Note Nisa Molina MD - 11/16/2017 EXAMINATION: XR FLUORO LUMBAR PUNCTURE DIAGNOSIS CLINICAL HISTORY: hx IIH worsening BLACKWOOD on diamox, eval for ICP. bedsideLP precluded by BMI/body habitus, Please obtain high volume tap fortherapeutic benefit COMPARISON: None. TECHNIQUE: The patient was informed of the risks and benefits of the procedure andwritten informed consent was obtained. The patient was placed prone on thefluoroscopic table and the L2-L3 approach was marked under fluoroscopic visualization.The patient was prepped and draped using sterile technique. 1% lidocaine wasused for local anesthesia. A 6 inch 22-gauge spinal needle was advanced under intermittent fluoroscopic guidance using an interspinous L2-L3 approach.There was return of initially blood-tinged CSF, which subsequently clearedduring time of collection. Opening pressure was 4 cm of water. Approximately 6 cc ofCSF was collected for lab work. Closing pressure was 4 cm of water. Stylet was replaced before the needle was withdrawn. No immediatecomplications. Fluoroscopy time: 0.20 minutes. FINDINGS: 1. Opening pressure was 4 cm of water. Closing pressure was 4 cm ofwater. 2. 6 cc of CSF was sent for lab work. IMPRESSION Uncomplicated fluoroscopic guided lumbar puncture for diagnosticpurposes. I was present for the choice in approach only. Preliminary report signed by: SAMSON CHEN at 11/16/2017 5:18 PM I have personally reviewed the image(s) and the residents interpretationand agree with the findings, Nisa Molina at 11/16/2017 5:22 PM Joelle Gray MD IMG FLUORO ORDERABLE S * CSF Cell Count 2nd count (11/16/2017 3:55 PM EDT) Tube # 2nd count 1 [facility] RBC CSF CT #2 4,623 /mcl [facility] Cerebrospinal fluid specimen (specimen) 11/16/2017 3:55 PM EDT 11/16/2017 4:35 PM EDT Narrative Resulting Agency Comment Spec In Lab Robbin Mcgovern MD BODY FLUIDS AND STOO LS ORDERABLES [facility] [place] [address] * (ABNORMAL) CSF Cell Count (11/16/2017 3:55 PM EDT) Tube # counted 4 [facility] Total Nucleated Cell Count, CSF 7(H) 0 - 5 /mcl [facility] Comment: If Nucleated CSF CT result [...] correlated with clinical condition. RBC Count CSF 1,465 /mcl [facility] Segmented Neutrophils, CSF 16 % [facility] Lymphocyte, CSF 82 % [facility] Macrophage CSF 1 % [facility] Eosinophil CSF 1 % [facility] Total Cells, CSF 200 Cells [facility] Cerebrospinal fluid specimen (specimen) 11/16/2017 3:55 PM EDT 11/16/2017 4:35 PM EDT Narrative Resulting Agency Comment Spec In Lab Robbin Mcgovern MD BODY FLUIDS AND STOO LS ORDERABLES Performing Organization Address [facility] Co de Phone Number [facility] [place] [address] * CSF DESC 4 (11/16/2017 3:55 PM EDT) Tube Num CSF 4 4 [facility] Color, CSF 4 [place] Colorless [facility] Appearance, CSF 4 Slightly Hazy Clear [facility] Total Vol, CSF 4 1.5 mL [facility] Cerebrospinal fluid specimen (specimen) 11/16/2017 3:55 PM EDT 11/16/2017 4:35 PM EDT Narrative Resulting Agency Comment Spec In Lab Robbin Mcgovern MD BODY FLUIDS AND STOO LS ORDERABLES Performing Organization Address [facility] Co de Phone Number [facility] [place] [address] * CSF DESC 3 (11/16/2017 3:55 PM EDT) Tube Num CSF 3 3 [facility] Color, CSF 3 [place] Colorless [facility] Appearance, CSF 3 Slightly Hazy Clear [facility] Total Vol, CSF 3 1.5 mL [facility] Cerebrospinal fluid specimen (specimen) 11/16/2017 3:55 PM EDT 11/16/2017 4:35 PM EDT Narrative Resulting Agency Comment Spec In Lab Robbin Mcgovern MD BODY FLUIDS AND STOO LS ORDERABLES Performing Organization Address [facility] Co de Phone Number [facility] [place] [address] * CSF DESC 2 (11/16/2017 3:55 PM EDT) Tube Num CSF #2 2 [facility] Color, CSF 2 [place] Colorless [facility] Comment:Slightly pink Appearance, CSF 2 Slightly Hazy Clear [facility] Total Vol, CSF 2 1.2 mL [facility] Cerebrospinal fluid specimen (specimen) 11/16/2017 3:55 PM EDT 11/16/2017 4:35 PM EDT Narrative Resulting Agency Comment Spec In Lab Robbin Mcgovern MD BODY FLUIDS AND STOO LS ORDERABLES Performing Organization Address [facility] Co de Phone Number [facility] [place] [address] * CSF DESC 1 (11/16/2017 3:55 PM EDT) Tube Num CSF #1 1 [facility] Color, CSF [place] Colorless [facility] Appearance, CSF Cloudy Clear [facility] Total Vol, CSF 1.2 mL [facility] Cerebrospinal fluid specimen (specimen) 11/16/2017 3:55 PM EDT 11/16/2017 4:35 PM EDT Narrative Resulting Agency Comment Spec In Lab Robbin Mcgovern MD BODY FLUIDS AND STOO LS ORDERABLES Performing Organization Address [facility] Co de Phone Number [facility] [place] [address] * CSF Culture (11/16/2017 3:55 PM EDT) Central Nervous System Culture No growth [facility] Gram Stain Cytocentrifuge Gram Stain performed No Neutrophils seen. No microorganisms seen. [facility] Cerebrospinal fluid specimen (specimen) 11/16/2017 3:55 PM EDT 11/16/2017 4:42 PM EDT Narrative Resulting Agency Comment Spec In Lab Joelle Gray MD MICROBIOLOGY - GENER AL ORDERABLES Performing Organization Address City/[facility]/ZIP Co de Phone Number [facility] [place] [address] * Glucose Level CSF (11/16/2017 3:55 PM EDT) Glucose, CSF 67 mg/dL [facility] Comment:CSF at equilibrium e quals approximately 60-80% of plasma glucose. Cerebrospinal fluid specimen (specimen) 11/16/2017 3:55 PM EDT 11/16/2017 4:35 PM EDT Narrative Resulting Agency Comment Spec In Lab Joelle Gray MD BODY FLUIDS AND STOO LS ORDERABLES Performing Organization Address [facility] Co de Phone Number [facility] [place] [address] * (ABNORMAL) Protein Level CSF (11/16/2017 3:55 PM EDT) Protein, CSF 60(H) 15 - 45 mg/dL [facility] Xanthochromia Neg [facility] Cerebrospinal fluid specimen (specimen) 11/16/2017 3:55 PM EDT 11/16/2017 4:35 PM EDT Narrative Resulting Agency Comment Spec In Lab Joelle Gray MD BODY FLUIDS AND STOO LS ORDERABLES Performing Organization Address [facility] Co de Phone Number [facility] [place] [address] * Differential, Automated (11/16/2017 8:40 AM EDT) Neutrophil % 57.8 % [facility] Neutrophil Absolute 3.37 1.70 - 6.10 x10(3)/[facility] Lymph % 33.9 % [facility] Lymphocytes Abs 2.0 0.9 - 3.2 x10(3)/[facility] Monocyte % 4.8 % [facility] Monocyte Abs 0.3 0.3 - 0.9 x10(3)/[facility] Eos % 2.9 % [facility] Eosinophils Abs 0.2 0.0 - 0.4 x10(3)/[facility] Basophil % 0.3 % [facility] Baso Absolute 0.0 0.0 - 0.1 x10(3)/[facility] Immature Gran % 0.30 % [facility] Comment: Immature granulocytes(IG's)percentage and absolute count will include metamyelocytes, myelocytes, and promyelocytes. Blood smears from CBCs yielding IG's will be scanned manually for concordance. If this scan disagrees with the automated IG or if promyelocytes are noted, a manual differential will be performed. Immature Gran Absolute 0.02 0.00 - 0.04 x10(3)/[facility] Blood specimen (specimen) 11/16/2017 8:40 AM EDT 11/16/2017 8:45 AM EDT Narrative Resulting Agency Comment Spec In Lab Robbin Mcgovern MD HEMATOLOGY ORDERABLE S [facility] [place] [address] * Hemogram (11/16/2017 8:40 AM EDT) White Blood Cell 5.8 4.0 - 9.5 x10(3)/[facility] Red Blood Cell 4.37 4.00 - 5.21 x10(6)/[facility] Hemoglobin 12.5 11.7 - 15.5 gm/dL [facility] Hematocrit 38.6 35.7 - 45.8 % [facility] Mean Cell Volume 88.3 82.6 - 94.4 fL [facility] Mean Cell Hemoglobin 28.6 27.1 - 32.0 pg [facility] Mean Cell Hemoglobin Concentration 32.4 31.7 - 35.0 gm/dL [facility] Platelet 231 145 - 357 x10(3)/[facility] RDW Standard Deviation 42.6 37.0 - 46.0 fL [facility] RDW coefficient of variation 13.1 11.5 - 14.1 % [facility] Mean Platelet Volume 9.5 7.6 - 12.9 fL [facility] NRBC% auto 0.0 % [facility] NRBC Absolute 0.000 0.000 - 0.000 x10(3)/[facility] Blood specimen (specimen) 11/16/2017 8:40 AM EDT 11/16/2017 8:45 AM EDT Narrative Resulting Agency Comment Spec In Lab Robbin Mcgovern MD HEMATOLOGY ORDERABLE S [facility] [place] [address] * (ABNORMAL) Basic Metabolic Panel (non-fasting) (11/16/2017 8:40 AM EDT) Glucose 133 65 - 199 mg/dL [facility] Comment:Diabetes: >=200 mg/d L plus symptoms Blood Urea Nitrogen 11 8 - 18 mg/dL [facility] Creatinine 0.75 0.70 - 1.20 mg/dL [facility] Sodium 140 135 - 145 mmol/L [facility] Potassium 3.9 3.5 - 5.0 mmol/L [facility] Comment: Please note: ??Patients with WBC >100,000 may have falsely elevated Potassium levels. ??For accurate Potassium quantification in these patients send serum separator tube (gold top) for subsequent determinations. ??Contact the Clinical Chemistry Laboratory if there are any questions. Chloride 107 98 - 107 mmol/L [facility] Carbon Dioxide 21(L) 22 - 31 mmol/L [facility] Anion Gap 12 5 - 15 mmol/L [facility] Calcium 9.1 8.5 - 10.5 mg/dL [facility] Est Glomerular Filtration Rate 105 >=60 mL/min/1. 73 m?? [facility] Comment: The eGFR was calculated using the CKD-EPI equation. As with all creatinine based estimates of kidney function, eGFR values calculated with the CKD-EPI equation are not accurate in patients with acute kidney failure, extremes of body mass or the acutely ill. [email or web address] CITYnkf eGFR 121 >=60 mL/min/1. 73 m?? [facility] Comment: The eGFR was calculated using the CKD-EPI equation. As with all creatinine based estimates of kidney function, eGFR values calculated with the CKD-EPI equation are not accurate in patients with acute kidney failure, extremes of body mass or the acutely ill. [email or web address] Blood specimen (specimen) 11/16/2017 8:40 AM EDT 11/16/2017 8:45 AM EDT Narrative Resulting Agency Comment Spec In Lab Joelle Gray MD CHEMISTRY ORDERABLES [facility] [place] [address] * MRI Venogram Head wo Contrast (11/15/2017 7:00 PM EDT) Anatomical Region Laterality Modality Head Magnetic Resonan ce Impressions 11/15/2017 7:52 PM EDT MRA head: Negative exam MRV: Negative exam MRI BRAIN: Focal signal abnormality in the left grimes radiata anteriorly with adjacent somewhat linear signal seen within the left anterior sylvian sulcus. Question small focal hemorrhage or vascular malformation. No flow related signal identified. Enhanced examination and susceptibility sequence may be helpful.. Narrative 11/15/2017 7:52 PM EDT EXAMINATION: MRI BRAIN WO CONTRAST, MRI ANGIOGRAM HEAD WO CONTRAST (GENERIC), MRI VENOGRAM HEAD WO CONTRAST CLINICAL HISTORY: hx IIH presents w worsening BLACKWOOD, papilledema, R sided hemiparesis, eval for increased ICP TECHNIQUE: MR brain noncontrast MR angiogram head noncontrast MR venogram head noncontrast COMPARISON: Head CT dated 11/07/2017 FINDINGS: Brain MRI noncontrast: No restricted diffusion to suggest an acute infarct. There is a focus of high signal intensity on FLAIR and T2 sequence in the left grimes radiata on image 14 of series 14 and series 13 with an apparent linear low signal intensity suggesting a vessel extending to the sulcus. Well seen on the 3-D atde-ji-cuyqls images without evidence of flow related signal. [...] No evidence of filling defect or stenosis. Procedure Note Vernon Franco MD - 11/15/2017 EXAMINATION: MRI BRAIN WO CONTRAST, MRI ANGIOGRAM HEAD WO CONTRAST(GENERIC), MRI VENOGRAM HEAD WO CONTRAST CLINICAL HISTORY: hx IIH presents w worsening BLACKWOOD, papilledema, R sided hemiparesis, eval for increased ICP TECHNIQUE: MR brain noncontrast MR angiogram head noncontrast MR venogram head noncontrast COMPARISON: Head CT dated 11/07/2017 FINDINGS: Brain MRI noncontrast: No restricted diffusion to suggest an acute infarct. There is a focus of high signal intensity on FLAIR and T2 sequence in theleft grimes radiata on image 14 of series 14 and series 13 with an apparentlinear low signal intensity suggesting a vessel extending to the sulcus. Wellseen on the 3-D vzem-sm-gjbmvs images without evidence of flow related signal.There is focal low signal intensity adjacent to the high signal intensity on the diffusion and ADC map in this location suggesting a chemical shift whichmay be related to hemoglobin degradation products. No other brain parenchymal signal abnormalities identified. There is nomass, mass effect, midline shift or extra-axial fluid collection. Noventriculomegaly. No cortical infarctions. Midline structures and central flow voids areotherwise unremarkable. Skull base soft tissues and orbits are normal. There isnormal appearance of the optic nerve sheaths. MRA: Normal appearance of the intracranial portion of the vertebralbasilar system with dominant left vertebral artery and normal appearance of the posterior circulation vessels. Patent right sided posteriorcommunicating artery. Patent appearance of the intracranial portion of the internal carotidarteries and anterior circulation branches. No focal stenosis caliber change oraneurysm. No flow related signal in the area of signal abnormality in the leftcorona radiata and left anterior sylvian sulcus. MRV: Normal appearance of the deep and superficial venous drainage. Noevidence of filling defect or stenosis. IMPRESSION MRA head: Negative exam MRV: Negative exam MRI BRAIN: Focal signal abnormality in the left grimes radiata anteriorlywith adjacent somewhat linear signal seen within the left anterior sylviansulcus. Question small focal hemorrhage or vascular malformation. No flow relatedsignal identified. Enhanced examination and susceptibility sequence may behelpful.. 7:52 PM Joelle Gray MD [facility] MRI ORDERABLES * MRI Angiogram Head wo Contrast (Generic) (11/15/2017 7:00 PM EDT) Anatomical Region Laterality Modality Head Magnetic Resonan ce Impressions 11/15/2017 7:52 PM EDT MRA head: Negative exam MRV: Negative exam MRI BRAIN: Focal signal abnormality in the left grimes radiata anteriorly with adjacent somewhat linear signal seen within the left anterior sylvian sulcus. Question small focal hemorrhage or vascular malformation. No flow related signal identified. Enhanced examination and susceptibility sequence may be helpful.. Narrative 11/15/2017 7:52 PM EDT EXAMINATION: MRI BRAIN WO CONTRAST, MRI ANGIOGRAM HEAD WO CONTRAST (GENERIC), MRI VENOGRAM HEAD WO CONTRAST CLINICAL HISTORY: hx IIH presents w worsening BLACKWOOD, papilledema, R sided hemiparesis, eval for increased ICP TECHNIQUE: MR brain noncontrast MR angiogram head noncontrast MR venogram head noncontrast COMPARISON: Head CT dated 11/07/2017 FINDINGS: Brain MRI noncontrast: No restricted diffusion to suggest an acute infarct. There is a focus of high signal intensity on FLAIR and T2 sequence in the left grimes radiata on image 14 of series 14 and series 13 with an apparent linear low signal intensity suggesting a vessel extending to the sulcus. Well seen on the 3-D [id number]-yl-[id number] images without evidence of flow related signal. [...] No evidence of filling defect or stenosis. Procedure Note Vernon Franco MD - 11/15/2017 EXAMINATION: MRI BRAIN WO CONTRAST, MRI ANGIOGRAM HEAD WO CONTRAST(GENERIC), MRI VENOGRAM HEAD WO CONTRAST CLINICAL HISTORY: hx IIH presents w worsening BLACKWOOD, papilledema, R sided hemiparesis, eval for increased ICP TECHNIQUE: MR brain noncontrast MR angiogram head noncontrast MR venogram head noncontrast COMPARISON: Head CT dated 11/07/2017 FINDINGS: Brain MRI noncontrast: No restricted diffusion to suggest an acute infarct. There is a focus of high signal intensity on FLAIR and T2 sequence in theleft grimes radiata on image 14 of series 14 and series 13 with an apparentlinear low signal intensity suggesting a vessel extending to the sulcus. Wellseen on the 3-D mman-ic-szxdul images without evidence of flow related signal.There is focal low signal intensity adjacent to the high signal intensity on the diffusion and ADC map in this location suggesting a chemical shift whichmay be related to hemoglobin degradation products. No other brain parenchymal signal abnormalities identified. There is nomass, mass effect, midline shift or extra-axial fluid collection. Noventriculomegaly. No cortical infarctions. Midline structures and central flow voids areotherwise unremarkable. Skull base soft tissues and orbits are normal. There isnormal appearance of the optic nerve sheaths. MRA: Normal appearance of the intracranial portion of the vertebralbasilar system with dominant left vertebral artery and normal appearance of the posterior circulation vessels. Patent right sided posteriorcommunicating artery. Patent appearance of the intracranial portion of the internal carotidarteries and anterior circulation branches. No focal stenosis caliber change oraneurysm. No flow related signal in the area of signal abnormality in the leftcorona radiata and left anterior sylvian sulcus. MRV: Normal appearance of the deep and superficial venous drainage. Noevidence of filling defect or stenosis. IMPRESSION MRA head: Negative exam MRV: Negative exam MRI BRAIN: Focal signal abnormality in the left grimes radiata anteriorlywith adjacent somewhat linear signal seen within the left anterior sylviansulcus. Question small focal hemorrhage or vascular malformation. No flow relatedsignal identified. Enhanced examination and susceptibility sequence may behelpful.. 7:52 PM Joelle Gray MD [facility] MRI ORDERABLES * MRI Brain wo Contrast (11/15/2017 7:00 PM EDT) Anatomical Region Laterality Modality Head Magnetic Resonan ce Impressions 11/15/2017 7:52 PM EDT MRA head: Negative exam MRV: Negative exam MRI BRAIN: Focal signal abnormality in the left grimes radiata anteriorly with adjacent somewhat linear signal seen within the left anterior sylvian sulcus. Question small focal hemorrhage or vascular malformation. No flow related signal identified. Enhanced examination and susceptibility sequence may be helpful.. [facility] 11/15/2017 7:52 PM EDT EXAMINATION: MRI BRAIN WO CONTRAST, MRI ANGIOGRAM HEAD WO CONTRAST (GENERIC), MRI VENOGRAM HEAD WO CONTRAST CLINICAL HISTORY: hx IIH presents w worsening BLACKWOOD, papilledema, R sided hemiparesis, eval for increased ICP TECHNIQUE: MR brain noncontrast MR angiogram head noncontrast MR venogram head noncontrast COMPARISON: Head CT dated 11/07/2017 FINDINGS: Brain MRI noncontrast: No restricted diffusion to suggest an acute infarct. There is a focus of high signal intensity on FLAIR and T2 sequence in the left grimes radiata on image 14 of series 14 and series 13 with an apparent linear low signal intensity suggesting a vessel extending to the sulcus. Well seen on the 3-D skkj-jc-ouvuon images without evidence of flow related signal. [...] No evidence of filling defect or stenosis. Procedure Note Vernon Franco MD - 11/15/2017 EXAMINATION: MRI BRAIN WO CONTRAST, MRI ANGIOGRAM HEAD WO CONTRAST(GENERIC), MRI VENOGRAM HEAD WO CONTRAST CLINICAL HISTORY: hx IIH presents w worsening BLACKWOOD, papilledema, R sided hemiparesis, eval for increased ICP TECHNIQUE: MR brain noncontrast MR angiogram head noncontrast MR venogram head noncontrast COMPARISON: Head CT dated 11/07/2017 FINDINGS: Brain MRI noncontrast: No restricted diffusion to suggest an acute infarct. There is a focus of high signal intensity on FLAIR and T2 sequence in theleft grimes radiata on image 14 of series 14 and series 13 with an apparentlinear low signal intensity suggesting a vessel extending to the sulcus. Wellseen on the 3-D ipky-ca-weyjaf images without evidence of flow related signal.There is focal low signal intensity adjacent to the high signal intensity on the diffusion and ADC map in this location suggesting a chemical shift whichmay be related to hemoglobin degradation products. No other brain parenchymal signal abnormalities identified. There is nomass, mass effect, midline shift or extra-axial fluid collection. Noventriculomegaly. No cortical infarctions. Midline structures and central flow voids areotherwise unremarkable. Skull base soft tissues and orbits are normal. There isnormal appearance of the optic nerve sheaths. MRA: Normal appearance of the intracranial portion of the vertebralbasilar system with dominant left vertebral artery and normal appearance of the posterior circulation vessels. Patent right sided posteriorcommunicating artery. Patent appearance of the intracranial portion of the internal carotidarteries and anterior circulation branches. No focal stenosis caliber change oraneurysm. No flow related signal in the area of signal abnormality in the leftcorona radiata and left anterior sylvian sulcus. MRV: Normal appearance of the deep and superficial venous drainage. Noevidence of filling defect or stenosis. IMPRESSION MRA head: Negative exam MRV: Negative exam MRI BRAIN: Focal signal abnormality in the left grimes radiata anteriorlywith adjacent somewhat linear signal seen within the left anterior sylviansulcus. Question small focal hemorrhage or vascular malformation. No flow relatedsignal identified. Enhanced examination and susceptibility sequence may behelpful.. 7:52 PM Joelle Gray MD [facility] MRI ORDERABLES * CT Head wo Contrast (Generic) (11/15/2017 12:40 PM EDT) Anatomical Region Laterality Modality Head Computed Tomogra phy Impressions 11/15/2017 1:06 PM EDT No acute intracranial process. Narrative 11/15/2017 1:06 PM EDT EXAMINATION: CT HEAD WO CONTRAST (GENERIC) CLINICAL HISTORY: BLACKWOOD, stuttering speech TECHNIQUE: CT Head was performed without contrast COMPARISON: None FINDINGS: There is no acute intracranial hemorrhage. The chaves-white differentiation is preserved. There is no mass effect, midline shift or extra-axial fluid collection. The ventricles are normal in size. The visualized paranasal sinuses and mastoid air cells are clear. The visualized orbits are unremarkable in appearance. Partially calcified subcutaneous lesion measuring 7 mm in the right parietal region may reflect an epidermal or related inclusion cyst. Procedure Note Domonique Esqueda MD - 11/15/2017 EXAMINATION: CT HEAD WO CONTRAST (GENERIC) CLINICAL HISTORY: BLACKWOOD, stuttering speech TECHNIQUE: CT Head was performed without contrast COMPARISON: None FINDINGS: There is no acute intracranial hemorrhage. The chaves-white differentiation is preserved. There is no mass effect, midline shift or extra-axial fluid collection. The ventricles are normal in size. Thevisualized paranasal sinuses and mastoid air cells are clear. The visualized orbitsare unremarkable in appearance. Partially calcified subcutaneous lesionmeasuring 7 mm in the right parietal region may reflect an epidermal or relatedinclusion cyst. IMPRESSION No acute intracranial process. Joelle Gray MD [facility] CT ORDERABLES * Rapid Drug Screen w/o Confirmation, Urine (11/15/2017 12:33 PM EDT) Barbiturates Screen, Urine None Detected None Detected [facility] Comment: The barbiturate screen [...] Benzodiazepines Screen, Urine None Detected None Detected [facility] Comment: The benzodiazepines screen [...] Cocaine Screen, Urine None Detected None Detected [facility] Comment: The cocaine metabolites screen detects benzoylecgonine (Cocaine Metabolite) at concentrations >150 ng/mL. A ? Presumptive Positive? result indicates that the screening result was positive but has not yet been confirmed by a highly-specific method. As with any screen, occasional false positive results from cross-reacting substances may occur. Not for Medico-Legal Purposes. Methadone Metabolites Screen, Urine None Detected None Detected [facility] Comment: The methadone metabolite screen detects EDDP (major methadone metabolite) at concentrations >100 ng/mL. A ? Presumptive Positive? result indicates that the screening result was positive but has not yet been confirmed by a highly-specific method. As with any screen, occasional false positive results from cross-reacting substances may occur. Not for Medico-Legal Purposes. Opiate Screen, Urine None Detected None Detected [facility] Comment: The opiates screen [...] Not for Medico-Legal Purposes. Cannabinoid Screen, Urine None Detected None Detected [facility] Comment: The marijuana metabolites screen detects the THC metabolite (54-gyd-8-carboxy-delta 9-THC) at concentrations >20 ng/mL. A ? Presumptive Positive? result indicates that the screening result was positive but has not yet been confirmed by a highly-specific method. As with any screen, occasional false positive results from cross-reacting substances may occur. Not for Medico-Legal Purposes. Oxycodone Screen, Urine None Detected None Detected [facility] Comment: The oxycodone screen detects oxycodone and oxymorphone at concentrations >100 ng/mL. A ? Presumptive Positive? result indicates that the screening result was positive but has not yet been confirmed by a highly-specific method. As with any screen, occasional false positive results from cross-reacting substances may occur. Not for Medico-Legal Purposes. Buprenorphine Screen, Urine None Detected None Detected [facility] Comment: The buprenorphine screen detects buprenorphine at concentrations >5 ng/mL. A ? Presumptive Positive? result indicates that the screening result was positive but has not yet been confirmed by a highly-specific method. As with any screen, occasional false positive results from cross-reacting substances may occur. Not for Medico-Legal Purposes. Fentanyl Screen, Urine None Detected None Detected [facility] Comment: The fentanyl screen detects fentanyl at concentrations >2 ng/mL. A ? Presumptive Positive? result indicates that the screening result was positive but has not yet been confirmed by a highly-specific method. As with any screen, occasional false positive results from cross-reacting substances may occur. Not for Medico-Legal Purposes. Tricyclics Screen, Urine None Detected None Detected [facility] Comment: The tricyclics screen [...] Ethanol Screen, Urine None Detected None Detected [facility] Comment:This urine ethanol a ssay detects ethanol at concentrations >/= 100 mg/L. Amphetamines Screen, Urine None Detected None Detected [facility] Comment: The amphetamine screen detects d-amphetamine and d-methamphetamine at concentrations >300 ng/mL. A ? Presumptive Positive? result indicates that the screening result was positive but has not yet been confirmed by a highly-specific method. As with any screen, occasional false positive results from cross-reacting substances may occur. Not for Medico-Legal Purposes. Adulterants Screen, Urine None Detected None Detected [facility] Comment: No adulteration or dilution of this urine sample was detected. All urine samples submitted for urine drugs of abuse analysis are tested for creatinine concentration, pH, and for the presence of oxidants, nitrites, and chromate. Urine specimen (specimen) 11/15/2017 12:33 PM EDT 11/15/2017 12:42 PM EDT Narrative Resulting Agency Comment Spec In Lab Joelle Gray MD CHEMISTRY ORDERABLES Performing Organization Address [facility]/ZIP Co de Phone Number [facility] [place] [address] * Rapid Drug Screen, Urine (JENNIFER Request) (11/15/2017 12:33 PM EDT) JENNIFER Conf Requested No [facility] JENNIFER Requested See Comment [facility] Comment:Refer to Rapid Drug Screen w/o Confirmation, Urine for results. Urine specimen (specimen) 11/15/2017 12:33 PM EDT 11/15/2017 12:42 PM EDT Narrative Resulting Agency Comment Spec In Lab Joelle Gray MD URINE ORDERABLES Performing Organization Address City/[facility]/ZIP Co de Phone Number [facility] [place] [address] * (ABNORMAL) Urinalysis with reflex Culture (11/15/2017 12:33 PM EDT) Glucose, Urine Dipstick Negative Negative mg/dL [facility] Protein, Urine Dipstick Negative Negative mg/dL [facility] Bilirubin, Urine Dipstick Negative Negative mg/dL [facility] Comment: Clinical correlation required for positive Urine Bilirubin results as false positive may occur with some drugs and drug related products. If a false positive is suspected a serum total bilirubin should be considered if clinically indicated. Urobilinogen, Urine Dipstick Normal Normal mg/dL [facility] pH, Urn (dipstick) 6.0 5.0 - 8.0 [facility] Blood, Urine Dipstick Negative Negative mg/dL [facility] Ketone, Urine Dipstick Negative Negative mg/dL [facility] Nitrite, Urine Dipstick Negative Negative [facility] Leukocytes, Urine Dipstick Negative Negative [facility] Appearance, Urine Dipstick Hazy(A) Clear [facility] Specific [place] Urine Automated 1.011 1.002 - 1.030 [facility] Color, Urine Dipstick Yellow Yellow [facility] Reflex to Culture No [facility] Urine specimen (specimen) 11/15/2017 12:33 PM EDT 11/15/2017 12:42 PM EDT Narrative Resulting Agency Comment Spec In Lab Joelle Gray MD URINE ORDERABLES [facility] [place] [address] * EKG 12 Lead (11/15/2017 12:27 PM EDT) Ventricular rate 72 BPM MUSE SYSTEM Atrial Rate 72 BPM MUSE SYSTEM P-R Interval 136 ms MUSE SYSTEM QRS Duration 88 ms MUSE SYSTEM Q-T Interval 398 ms MUSE SYSTEM QTC Calculated (Bezet) 435 ms MUSE SYSTEM Calculated P [place] 30 degrees MUSE SYSTEM Calculated R [place] 41 degrees MUSE SYSTEM Calculated T [place] 35 degrees MUSE SYSTEM INTERPRETATION Normal sinus rhythm Normal ECG When compared with ECG of 07-JUN-2016 00:29, No significant change was found Confirmed by MD Steve, Juan ([id number]) on 11/15/2017 4:27:01 PM MUSE SYSTEM 11/15/2017 12:2 7 PM EDT 11/15/2017 4:27 PM EDT Joelle Gray MD ECG ORDERABLES MUSE SYSTEM * Chaves Tube Hold (11/15/2017 11:30 AM EDT) Chaves Hold Sample in lab. [facility] Blood specimen (specimen) Venous Draw / Unknown 11/15/2017 11:30 AM EDT 11/15/2017 12:24 PM EDT Jill Velazquez MD CHEMISTRY ORDERABLES Performing Organization Address City/[facility]/ZIP Co de Phone Number [facility] [place] [phone] * Gold Tube HOLD (11/15/2017 11:30 AM EDT) Gold Hold Sample in lab. [facility] Blood specimen (specimen) Venous Draw / Unknown 11/15/2017 11:30 AM EDT 11/15/2017 12:24 PM EDT Jill Velazquez MD CHEMISTRY ORDERABLES Performing Organization Address [facility] Co de Phone Number [facility] [place] [address] * Differential, Automated (11/15/2017 11:30 AM EDT) Neutrophil % 60.6 % [facility] Neutrophil Absolute 4.75 1.70 - 6.10 x10(3)/[facility] Lymph % 30.2 % [facility] Lymphocytes Abs 2.4 0.9 - 3.2 x10(3)/[facility] Monocyte % 6.3 % [facility] Monocyte Abs 0.5 0.3 - 0.9 x10(3)/[facility] Eos % 2.2 % [facility] Eosinophils Abs 0.2 0.0 - 0.4 x10(3)/[facility] Basophil % 0.3 % [facility] Baso Absolute 0.0 0.0 - 0.1 x10(3)/[facility] Immature Gran % 0.40 % [facility] Comment: Immature granulocytes(IG's)percentage and [...] [facility] Blood specimen (specimen) 11/15/2017 11:30 AM EDT 11/15/2017 12:23 PM EDT Narrative Resulting Agency Comment Spec In Lab Jill Velazquez MD HEMATOLOGY ORDERABLE S [facility] [place] [address] * Hemogram (11/15/2017 11:30 AM EDT) White Blood Cell 7.8 4.0 - 9.5 x10(3)/[facility] Red Blood Cell 4.74 4.00 - 5.21 x10(6)/[facility] Hemoglobin 13.6 11.7 - 15.5 gm/dL [facility] Hematocrit 41.4 35.7 - 45.8 % [facility] Mean Cell Volume 87.3 82.6 - 94.4 fL [facility] Mean Cell Hemoglobin 28.7 27.1 - 32.0 pg [facility] Mean Cell Hemoglobin Concentration 32.9 31.7 - 35.0 gm/dL [facility] Platelet 289 145 - 357 x10(3)/[facility] RDW Standard Deviation 42.2 37.0 - 46.0 fL [facility] RDW coefficient of variation 13.1 11.5 - 14.1 % [facility] Mean Platelet Volume 10.6 7.6 - 12.9 fL [facility] NRBC% auto 0.0 % [facility] NRBC Absolute 0.000 0.000 - 0.000 x10(3)/mcL [facility] Blood specimen (specimen) 11/15/2017 11:30 AM EDT 11/15/2017 12:23 PM EDT Narrative Resulting Agency Comment Spec In Lab Jill Velazquez MD HEMATOLOGY ORDERABLE S Performing Organization Address City/[facility]/ZIP Co de Phone Number [facility] [place] [address] * Sedimentation rate (11/15/2017 11:30 AM EDT) Sedimentation Rate Automated 16 0 - 20 mm/hr [facility] Blood specimen (specimen) 11/15/2017 11:30 AM EDT 11/15/2017 12:23 PM EDT Narrative Resulting Agency Comment Spec In Lab Joelle Gray MD HEMATOLOGY ORDERABLE S Performing Organization Address City/[facility]/ZIP Co de Phone Number [facility] [place] [address] * (ABNORMAL) CRP, acute inflammation (11/15/2017 11:30 AM EDT) C-Reactive Protein 13.9(H) <=4.9 mg/L [facility] Blood specimen (specimen) 11/15/2017 11:30 AM EDT 11/15/2017 12:23 PM EDT Narrative Resulting Agency Comment Spec In Lab Joelle Gray MD CHEMISTRY ORDERABLES Performing Organization Address City/[facility]/ZIP Co de Phone Number [facility] [place] [address] * TSH (11/15/2017 11:30 AM EDT) Pathologist [facility] [place] Thyroid Stimulating Hormone 1.81 0.27 - 4.20 mlU/ML [facility] Blood specimen (specimen) 11/15/2017 11:30 AM EDT 11/15/2017 12:23 PM EDT Narrative Resulting Agency Comment Spec In Lab Joelle Gray MD CHEMISTRY ORDERABLES Performing Organization Address [facility] de Phone Number [facility] [place] [address] * Prothrombin Time (11/15/2017 11:30 AM EDT) [facility] Prothrombin Time 11.4 9.4 - 12.5 sec [facility] International Normalization Ratio 1.0 [facility] Comment: An INR <2.0 [...] depending on clinical circumstances. Blood specimen (specimen) 11/15/2017 11:30 AM EDT 11/15/2017 12:23 PM EDT Narrative Resulting Agency Comment Spec In Lab Joelle Gray MD HEMATOLOGY ORDERABLE S Performing Organization Address [facility] de Phone Number [facility] [place] [address] * (ABNORMAL) Basic Metabolic Panel (non-fasting) (11/15/2017 11:30 AM EDT) Pathologist [facility] [place] Glucose 95 65 - 199 mg/dL [facility] Comment:Diabetes: >=200 mg/d L plus symptoms Blood Urea Nitrogen 10 8 - 18 mg/dL [facility] Creatinine 0.72 0.70 - 1.20 mg/dL [facility] Sodium 139 135 - 145 mmol/L [facility] Potassium 3.8 3.5 - 5.0 mmol/L [facility] Comment: Please note: ??Patients with WBC >100,000 may have falsely elevated Potassium levels. ??For accurate Potassium quantification in these patients send serum separator tube (gold top) for subsequent determinations. ??Contact the Clinical Chemistry Laboratory if there are any questions. Chloride 105 98 - 107 mmol/L [facility] Carbon Dioxide 20(L) 22 - 31 mmol/L [facility] Anion Gap 14 5 - 15 mmol/L [facility] Calcium 9.7 8.5 - 10.5 mg/dL [facility] Est Glomerular Filtration Rate 110 >=60 mL/min/1. 73 m?? [facility] Comment: The eGFR was calculated using the CKD-EPI equation. As with all creatinine based estimates of kidney function, eGFR values calculated with the CKD-EPI equation are not accurate in patients with acute kidney failure, extremes of body mass or the acutely ill. [email or web address] OKLAH[facility] CITYnkf eGFR 128 >=60 mL/min/1. 73 m?? [facility] Comment: The eGFR was calculated using the CKD-EPI equation. As with all creatinine based estimates of kidney function, eGFR values calculated with the CKD-EPI equation are not accurate in patients with acute kidney failure, extremes of body mass or the acutely ill. [email or web address] Blood specimen (specimen) 11/15/2017 11:30 AM EDT 11/15/2017 12:23 PM EDT Narrative Resulting Agency Comment Spec In Lab Joelle Gray MD CHEMISTRY ORDERABLES [facility] [place] [address] documented in this encounter Visit Diagnoses Diagnosis Neurological deficit present Other symptoms involving nervous and musculoskeletal systems Neurological deficit present Other symptoms involving nervous and musculoskeletal systems documented in this encounter Admitting Diagnoses Diagnosis Neurological deficit present Other symptoms involving nervous and musculoskeletal systems documented in this encounter Administered Medications Inactive Administered Medications - up to 3 most recent administrations Medication Order MAR Action Action Date Dose Rate Site acetaZOLAMIDE (DIAMOX) tablet 125 mg 125 mg, Oral, EVERY MORNING, First dose on 11/16/17 at 0900, Until Discontinued, Routine Given 11/17/2017 8:42 AM EDT 125 mg Given 11/16/2017 8:06 AM EDT 125 mg acetaZOLAMIDE (DIAMOX) tablet 500 mg 500 mg, Oral, EVERY EVENING, First dose on Sat11/15/17 at 2100, Until Discontinued, Routine Given 11/16/2017 8:07 PM EDT 500 mg Given 11/15/2017 8:55 PM EDT 500 mg citalopram (CeleXA) tablet 40 mg 40 mg, Oral, DAILY, First dose on 11/16/17 at 1415, Until Discontinued, Routine Given 11/17/2017 8:42 AM EDT 40 mg Given 11/16/2017 2:00 PM EDT 40 mg enoxaparin (LOVENOX) injection 40 mg 40 mg, Subcutaneous, NIGHTLY, First dose on Sat11/15/17 at 2100, Until Discontinued, Routine Given 11/16/2017 8:07 PM EDT 40 mg Given 11/15/2017 8:58 PM EDT 40 mg gadoterate meglumine (DOTAREM) 0.5 mmol/mL (376.9 mg/mL) injection 0-20 mL 0-20 mL, Intravenous, ONCE PRN, 1 dose, Starting on 11/17/17 at 0928, Until 11/17/17 at 1241, Per Protocol, Radiology Contrast, Routine hydrOXYzine (ATARAX) tablet 25 mg 25 mg, Oral, 3 TIMES DAILY PRN, Starting on Sat11/15/17 at 1832, Until 11/17/17 at 1241, headache, Routine Given 11/17/2017 5:13 AM EDT 25 mg Given 11/16/2017 8:07 PM EDT 25 mg Given 11/16/2017 11:47 AM EDT 25 mg ketorolac (TORADOL) injection 15 mg 15 mg, Intravenous, EVERY 6 HOURS PRN, Starting on Sat11/15/17 at 1832, Until 11/16/17 at 1151, Pain, Routine Given 11/16/2017 5:32 AM EDT 15 mg Given 11/15/2017 6:48 PM EDT 15 mg ketorolac (TORADOL) injection 30 mg 30 mg, Intravenous, EVERY 6 HOURS PRN, Starting on 11/16/17 at 1150, Until 11/17/17 at 1241, Pain, Routine Given 11/17/2017 5:13 AM EDT 30 mg Given 11/16/2017 2:04 PM EDT 30 mg LORazepam (ATIVAN) tablet 1 mg 1 mg, Oral, ONCE, 1 dose, On 11/16/17 at 1445, Routine Given 11/16/2017 2:20 PM EDT 1 mg magnesium sulfate 1g in dextrose 5% 100mL 1 g, Intravenous, ONCE, 1 dose, On 11/16/17 at 1215, Administer over 60 Minutes, ADMINISTER OVER 10 MINUTES FOR HEADACHE New Bag 11/16/2017 12:25 PM EDT 1 g 100 mL/hr sodium chloride 0.9 % flush 5 mL 5 mL, Intravenous, 2 TIMES DAILY, First dose on Sat11/15/17 at 2100, Until Discontinued, Routine Given 11/17/2017 8:40 AM EDT 5 mLs Given 11/16/2017 8:07 PM EDT 5 mLs Given 11/16/2017 8:08 AM EDT 5 mLs sodium chloride 0.9 % flush 5-20 mL 5-20 mL, Intravenous, EVERY 1 MIN PRN, Starting on Sat11/15/17 at 1832, Until 11/17/17 at 1241, flush, Flush pertains to all indwelling lines. Flush per protocol found in the job aid using the link provided on this medication record., Routine Given 11/16/2017 5:39 AM EDT 5 mLs documented in this encounter Active and Recently Administered Medications Times are shown in EDT. Scheduled Medication Order 11/15/2017 11/16/2017 11/17/2017 acetaZOLAMIDE (DIAMOX) tablet 125 mg 125 mg, Oral, EVERY MORNING, First dose on 11/16/17 at 0900, Until Discontinued, Routine 805 (Given - Provider: Ioana Pizarro RN) 841 (Given - Provider: Rj Blum RN) acetaZOLAMIDE (DIAMOX) tablet 500 mg 500 mg, Oral, EVERY EVENING, First dose on Sat11/15/17 at 2100, Until Discontinued, Routine 2054 (Given - Provider: Anay Wilson RN) 2006 (Given - Provider: Anay Wilson RN) citalopram (CeleXA) tablet 40 mg 40 mg, Oral, DAILY, First dose on 11/16/17 at 1415, Until Discontinued, Routine 1400 (Given - Provider: Alice Ordaz RN) 0842 (Given - Provider: Rj Blum, RN) enoxaparin (LOVENOX) injection 40 mg 40 mg, Subcutaneous, NIGHTLY, First dose on Sat11/15/17 at 2100, Until Discontinued, Routine 2054 (Discarded - Provider: Anay Wilson RN - Comment: plunger fell out and syringe wouldn't work.)2057 (Given - Provider: Anay Wilson, RN) 2006 (Given - Provider: Anay Wilson RN) LORazepam (ATIVAN) tablet 1 mg (COMPLETED) 1 mg, Oral, ONCE, 1 dose, On 11/16/17 at 1445, Routine 1420 (Given - Provider: Ioana Pizarro RN) magnesium sulfate 1g in dextrose 5% 100mL (COMPLETED) 1 g, Intravenous, ONCE, 1 dose, On 11/16/17 at 1215, Administer over 60 Minutes, ADMINISTER OVER 10 MINUTES FOR HEADACHE 1225 (New Bag - Provider: Ioana Pizarro RN)1235 (Stopped - Provider: Ioana Pizarro RN) sodium chloride 0.9 % flush 5 mL 5 mL, Intravenous, 2 TIMES DAILY, First dose on Sat11/15/17 at 2100, Until Discontinued, Routine 2100 (Given - Provider: Anay Wilson RN) 0808 (Given - Provider: Ioana Pizarro, RADHA)2006 (Given - Provider: Anay Wilson, RADHA) 0840 (Given - Provider: Rj Blum, RN) PRN Medication Order 11/15/2017 11/16/2017 11/17/2017 gadoterate meglumine (DOTAREM) 0.5 mmol/mL (376.9 mg/mL) injection 0-20 mL 0-20 mL, Intravenous, ONCE PRN, 1 dose, Starting on 11/17/17 at 0928, Until 11/17/17 at 1241, Per Protocol, Radiology Contrast, Routine hydrOXYzine (ATARAX) tablet 25 mg 25 mg, Oral, 3 TIMES DAILY PRN, Starting on Sat11/15/17 at 1832, Until 11/17/17 at 1241, headache, Routine 2001 (Given - Provider: Anay Wilson, RN) 1147 (Given - Provider: Alice Ordaz, RN)2006 (Given - Provider: Anay Wilson, RN) 0513 (Given - Provider: Anay Wilson, RN) ketorolac (TORADOL) injection 15 mg (CANCELED) 15 mg, Intravenous, EVERY 6 HOURS PRN, Starting on 11/15/17 at 1832, Until 11/16/17 at 1151, Pain, Routine 1848 (Given - Provider: Elder Moreno RN) 0532 (Given - Provider: Anay Wilson, RN) ketorolac (TORADOL) injection 30 mg 30 mg, Intravenous, EVERY 6 HOURS PRN, Starting on 11/16/17 at 1150, Until 11/17/17 at 1241, Pain, Routine 1404 (Given - Provider: Alice Ordaz, RADHA) 0513 (Given - Provider: Anay Wilson, RN) lidocaine (XYLOCAINE) 10 mg/mL (1 %) injection 3 mg 3 mg (0.3 mL), Subcutaneous, ONCE PRN, 1 dose, Starting on 11/15/17 at 1832, Until 11/17/17 at 1241, for discomfort with PIV insertion, Routine sodium chloride 0.9 % flush 5-20 mL 5-20 mL, Intravenous, EVERY 1 MIN PRN, Starting on 11/15/17 at 1832, Until 11/17/17 at 1241, flush, Flush pertains to all indwelling lines. Flush per protocol found in the job aid using the link provided on this medication record., Routine 0539 (Given - Provider: Anay Wilson RN) documented in this encounter Care Teams Tangled Yarn Worker Relationship Specialty Start Date End Date Amada Carson MD GUALBERTOLASHON VILLAFUERTE [facility] [place] [address] PCP - General 11/18/14 06/08/18 documented as of this encounter
--- OUTSIDE RECORDS SUMMARY | 2024-01-13 18:58 | XMS_ITS | Encounter Summary ---
Author Organization [facility] Address [facility] [place] [address] Care Team Providers Care Pipe Smoking Machine Offbearer Name Role Phone Amada Carson MD Primary Care Provider [phone] Reason for Visit * Reason Comments Headache Encounter Details Date Type Department Care Team (Late st Contact Info) Description 07/22/2018 1:30 PM EDT Office Visit Neurology at [facility], [place] [address] Ted Mckinnon MD [facility] [place] [address] Nuvia Mckinnon MD [facility] [place] [address] Hemicrania continua Social History Tobacco Use Types [...] Sign Reading Time Taken Comments Blood Pressure 141/90 07/22/2018 1:16 PM EDT Pulse 101 07/22/2018 1:16 PM EDT Temperature - - Respiratory Rate - - Oxygen Saturation - - Inhaled Oxygen Concentration - - Weight 136.1 kg (300 lb) 07/22/2018 1:16 PM EDT Height 167.6 cm (5' 6) 07/22/2018 1:16 PM EDT r eported Body Mass Index 48.42 07/22/2018 1:16 PM EDT documented in this encounter Patient Instructions * Patient Instructions* Alix Mercado MD - 07/22/2018 1:30 PM EDT Office Number: (Naty Roberts - Executive Relations Specialist) Clinic nurse number for most issues and prescription refills (Molly) (Ladonna) For Prescription Refills: Please call for refills when you have one month left on your medication, we have 48 hours from the time you call to get the medication refill placed. Please call the clinic rather then using my-DH or e-mail, as the communication is better in real time. Thank you and I look forward to working with you. Keep your Calendar and bring them to your appointment please. 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 - For Headache Prevention: - Increase Indomethacin as follows: 50mg AM, 50mg noon, 75mg in the evening, for 4-5 daysTHEN 75mg AM, 50mg noon, 75mg in the evening, for 4-5 days THEN 75mg three times daily and continue on this dose. - Call our office if your headaches resolve at a lower dose, and continue on that lower dose. Otherwise, call our office to touch base after 4 days on Indomethacin 75mg three times daily. - Increase Pantoprazole to 40mg twice daily. If you have abdominal upset, please let us know.? Follow-up with Dr. Mercado in 3-4 weeks in clinic documented in this encounter Progress Notes * Alix Mercado MD - 07/22/2018 1:30 PM EDT Images from the original note were not included. Neurology Headache Clinic Follow-up Patient Name: Kimberli Bales CC: Headache follow up from 01/17/18 HPI: 32 year old female with history of strabismus [...] developed pain ???everywhere?? with clattering teeth. She then presented to the ED on 11/15/17, with [...] with patient at our first visit Patient confirmed that headaches first started in 2011, after complicated delivery of one of her children requiring blood transfusion. Headaches were initially intermittent, and not bothersome overall. Pain would come and go in her bilateral temples, occurring a few times a month. Pain would last aday, and was pounding. Would wax and wane [...] around her eye extending to her right baptist. Pain would fluctuate in severity, but never [...] night with a headache over her right eye/baptist, that has persisted constantly since. Headache is [...] and consider counseling again in the future. At our last visit, patient noted that her right sided headaches completely resolved since increasing indomethacin from 25mg TID to 50mg TID. She had been tolerating the medication well, continuing ondaily protonix. Has had a few on the left side now, that feels like a regular old headache on the top of her lefthead. Goes away in 2 hours with excedrin. Off the other vitamin supplements. Gets the left sided headaches maybe 3 times in the last 1.5 months. No associated symptoms, and the headaches do not affect her ability to function. 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 INTERIM She has now been on Indomethacin for about 7-8 months. Prior to one month ago, she was overall headache free and doing well on indomethacin. Over the last month, she has not been doing as well, with return of a continuous headache with exacerbations. The pain is in the same location, with pain focused around her right eye/forhead. Pain is continuous with exacerbations on top of it again. Still has a sensation of her ear being full, and eye being swollen as well. Exacerbations can last a few hours. No associated migrainous symptoms with headaches. Eyes and nose watering in general. Ringing in her ears still, tinnitus, but can be pulsing. Started around the first week of June. Background pain is now a 4/10. Exacerbations are a 8-910. Additional Hx: Can have fullnesss in ears, stuttering, tinnitus At times, can have difficulty focusing and see doubling only in her right eye. Has some cutaneous allodynia Has neck pain with the headaches. Headaches can make physical activity more difficult Aura: None Prodrome: None Triggers: None Alleviating factors: None HAs have impact on work, school or recreational activities: 30 Missed days from work/school per month: 2430 days (she works from home) Sleep: 7PM, [...] fainting cold extremities Family History of headaches: None Contraception: tubal ligation Previous work-up: LP 05/19/12: [...] the sulcus. Well seen on the 3-D [id number] images without evidence of flow related signal. [...] intracranial process. MRI brain with contrast 05/21/12 ? Current Pain/Mood Medications: Indomethacin 50mg TID Pantoprazole 40mg daily Citalopram 40mg daily Ativan 1mg PRN - a few times a month Medications Tried (In bold) Aimovig/Eptinezumab Botox ONB SPN Topamax/ Topiramate - [...] Q10 Vit. B2(riboflavin) Butterbur Feverfew Melatonin Ketamine Prospect Percocet Vicodin Oxycodone Dilaudid Tramadol Morphine Marijuana Ativan(lorazepam) Xanax(alprazolam) Spring TMS Cefaly headband nVNS/Gammacore Medical History Past Medical History: Diagnosis Date ??? Allergic state ??? Hemicrania continua ??? Strabismus Social History Social History Socioeconomic History ??? Marital status: Spouse name: Not on file ??? Number of children: 2 ??? Years of education: Not on file ??? Highest education level: Not on file Occupational History ??? 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 Financial resource strain: Not on file ??? Food insecurity: Worry: Not on file Inability: Not on file ??? Transportation needs: Medical: Not on file Non-medical: Not on file Tobacco Use ??? Smoking status: Former Smoker Packs/day: 0.25 Years: 2.00 Pack years: 0.50 Types: Cigarettes Last attempt to quit: 10/17/2017 Years since quittin.7 ??? Smokeless tobacco: Never Used Substance and Sexual Activity ??? Alcohol use: Yes Frequency: Never Comment: Occasional ??? Drug use: No ??? Sexual activity: Yes Partners: Male control/protection: Surgical Comment: tubal ligation Lifestyle ??? Physical activity: Days per week: Not on file Minutes per session: Not on file ??? Stress: Not on file Relationships ??? Social connections: Talks on phone: Not on file Gets together: Not on file Attends voodoo service: Not on file Active member of club or organization: Not on file Attends meetings of clubs or organizations: Not on file Relationship status: Not on file ??? Intimate partner violence: Fear of current or ex partner: Not on file Emotionally abused: Not on file Physically abused: Not on file Forced sexual activity: Not on file Other Topics Concern ??? Not on file [...] Outpatient Medications Medication Sig Dispense Refill ??? chrm/vineg/bit-orang peel/gr t (APPLE CIDER VINEGAR PLUS ORAL) Take 900 mg by mouth daily. ??? Lactobacillus acidophilus (PROBIOTIC ACIDOPHILUS) 1.5 mg (250 million cell) Capsule Take by mouth daily. ??? indomethacin (INDOCIN) 50 mg Capsule Take 1 capsule by mouth 3 times daily (with meals). 90 capsule 5 ??? pantoprazole (PROTONIX) 40 mg Tablet, Delayed Release (E.C.) Take 1 tablet by mouth daily. 90 tablet 3 ??? citalopram (CELEXA) 40 mg Tablet Take 40 mg by mouth daily. ??? LORazepam (ATIVAN) 1 mg Tablet Take 1 mg by mouth as needed for Anxiety. No current facility-administered medications for this visit. Physical Exam: Most Recent Vitals: 07/22/18 1316 BP: 141/90 Pulse: (!) 101 Constitutional: Patient of apparent stated age, no acute distress Neuro: MS: Alert, oriented, clear language, no dysarthria, follows commands CN: Pupils equal on obesrvation, EOMI, no gross facial asymmetry, tongue is midline during conversation Fundoscopic: No papilledema Motor: All four extremities are at least antigravity Coordination: no ataxia noted on ambulation Gait: normal base and arm swing Labs: No results found for this or any previous visit (from the past 24 hour(s)). Diagnostic Tests and Imaging: See HPI above Assessment and Plan: 32 year old female with history of??strabismus??(s/p bilateral lateral rectus recessions, and repeat right lateral rectus recession),??and??headaches with ?IIH diagnosis in the past, presenting for follow up of headaches that actually appear to be most consistent with Hemicrania Continuua. ?? From extensive review chart review of past [...] resolved on indomethacin 50mg TID, supporting HC diagnosis initialy. After 7 months of treatment though, her headaches have returned with the same prior characteristics. We will try maximizing her indomethacin to 225mg total daily. If no response, will re-consider trial with a CGRP MAB (although, does not have migrainous features). Other considerations from her initial appointment were NDPH (has had remembered dates of onset). 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 - For Headache Prevention: - Increase Indomethacin as follows: 50mg AM, 50mg noon, 75mg in the evening, for 4-5 daysTHEN 75mg AM, 50mg noon, 75mg in the evening, for 4-5 days THEN 75mg three times daily and continue on this dose. - Call our office if your headaches resolve at a lower dose, and continue on that lower dose. Otherwise, call our office to touch base after 4 days on Indomethacin 75mg three times daily. - Increase Pantoprazole to 40mg twice daily. If you have abdominal upset, please let us know.? Follow-up with Dr. Mercado in 3-4 weeks in clinic * Nuvia Mckinnon MD - 07/22/2018 1:30 PM EDT I certify that I have seen Kimberli Bales on 07/22/[address] Mercado, Headache Fellow. The note reflects the patient's history of presentation, physical findings. The assessment and plan were formulated together in discussion and I have personally reviewed all studies. Ms. Bales is a 32 year old woman with a history of chronic headaches, diagnosed previously with chronic migraine, intracranial hypertension, and most recently with hemicrania continua. Her recent LPsuggest that IIH is no longer a problem and she has had no papilledema. She is no longer on acetazolamide. Since her most recent diagnosis of hemicrania continua, she has been maintained on indomethacin 50 mg TID. This worked for 7 months, but now she has begun to break through this and has headaches again. The plan is to try an increase in indomethacin to 75 mg TID over the next month. It is possible, ifthis is not working, that the underlying diagnosis is chronic migraine, and if she is not responding to indomethacin 75 mg TID, she is getting rebound from the indomethacin which would explain why itgradually stopped working. If this is the case, we will prescribe a CGRP monoclonal antibody for prevention and pull her off the the indomethacin. She will see Dr. Mercado in one month, at which point the diagnosis should be more definitive based on her response to the increased indomethacin. Nuvia Mckinnon MD [facility] Neurology documented in this encounter Plan of Treatment Not on file documented as of this encounter Visit Diagnoses Diagnosis Hemicrania continua documented in this encounter Care Teams Pipe Smoking Machine Offbearer Relationship Specialty Start Date End Date Amada Carson MD [address] [place] [address] PCP - General 06/09/18 08/27/18 documented as of this encounter
--- OUTSIDE RECORDS SUMMARY | 2024-01-13 18:58 | XMS_ITS | Encounter Summary ---
Author Organization [facility] Address [facility] [place] [address] Care Team Providers Care Detail Drafter Name Role Phone Amada Carson MD Primary Care Provider [phone] Encounter Details Date Type Department Care Team (Late st Contact Info) Description 03/12/2018 External Results Laboratory at [facility] [address] [place] [address] Amada Carson MD [address] [place] [address] Social History Tobacco Use Types Packs/Day Years [...] Procedure Name Priority Date/Time Associated Diagnosis Comments APD LAB RESULT Routine 03/12/2018 9:20 AM EST documented in this encounter Results * (ABNORMAL) APD Lab Result (03/12/2018 9:20 AM EST) APD LAB RESULT B. PERTUSSIS/ PARAPERTUS SIS DNA(Electron Microscopist al Lab) [facility] 03/12/2018 9:20 AM EST 03/12/2018 11:07 AM EST Narrative [facility] - 03/16/2018 5:12 PM EST Component ? Value ?RefRange ??Units ? Status Abn? Bordetella pert ? Negative ? Negative ?F ? Bordetella para ? Negative ? Negative ?F ? This test was developed and its performance characteristics ? determined by [facility]. It has not been cleared ? or approved by the U.S. Food and Drug Administration. The ? FDA has determined that such clearance or approval is not ? necessary. This test is used for clinical purposes. It ? should not be regarded as investigational or research. ? Performed at: ??[facility] ? [address] [place] [address] ??[id number] ? Transition Lead: Gurmeet Amador MD, Phone: ??[phone] Amada Carson MD POINT OF CARE YUE T ORDERABLES Performing Organization Address [facility] Co de Phone Number [facility] [address] [facility] [address] [place] [address] documented in this encounter Visit Diagnoses Not on filedocumented in this encounter Care Teams Detail Drafter Relationship Specialty Start Date End Date Amada Carson MD [address] [address] PCP - General 11/18/14 06/08/18 documented as of this encounter
--- OUTSIDE RECORDS SUMMARY | 2024-01-13 18:58 | XMS_ITS | Encounter Summary ---
Author Organization [facility] [place] [address] Care Team Providers Care Ocean Freight Manager Name Role Phone Amada Carson MD Primary Care Provider [phone] Encounter Details Date Type Department Care Team (Late st Contact Info) Description 11/21/2017 Abstract Nancy Javed Conversion Results [address] [place] [id number] Apd Conversion, Flowsheet Provider, Social History Tobacco [...] Sign Reading Time Taken Comments Blood Pressure 116/82 11/21/2017 2:02 PM EDT Shefali rced from APD Conversion Pulse - - Temperature - - Respiratory Rate - - Oxygen Saturation - - Inhaled Oxygen Concentration - - Weight - - Height - - Body Mass Index - - documented in this encounter Plan of Treatment Not on file documented as of this encounter Visit Diagnoses Not on filedocumented in this encounter Care Teams Ocean Freight Manager Relationship Specialty Start Date End Date Amada Carson MD [address] [place] [address] PCP - General 06/09/18 08/27/18 documented as of this encounter
--- OUTSIDE RECORDS SUMMARY | 2024-01-13 18:58 | XMS_ITS | Encounter Summary ---
Author Organization [facility] [place] [address] Care Team Providers Care High Pressure Operator Name Role Phone Amada Carson MD Primary Care Provider [phone] Encounter Details Date Type Department Care Team (Late st Contact Info) Description 09/09/2018 Orders Only Primary Care at [facility] [address] [place] [id number] Anay eHrnadez [facility] Social History Tobacco Use Types Packs/Day [...] on filedocumented in this encounter Care Teams High Pressure Operator Relationship Specialty Start Date End Date Amada Carson MD [address] [facility] [place] [address] PCP - General Family Medicine 08/28/18 01/21/20 documented as of this encounter
--- OUTSIDE RECORDS SUMMARY | 2024-01-13 18:58 | XMS_ITS | Encounter Summary ---
Author Organization [facility] Address [facility] [place] [address] Care Team Providers Care Supervisor Wrapping Room Name Role Phone Amada Carson MD Primary Care Provider [phone] Encounter Details Date Type Department Care Team (Late st Contact Info) Description 03/07/2018 Interpretation Only [facility] [address] [place] [id number] Amada Carson MD [address] [place] [address] Social History Tobacco Use Types Packs/Day Years [...] Comments XR CHEST PA AND LATERAL Routine 03/07/2018 3:40 PM EST documented in this encounter Results * XR Chest PA & Lateral (Generic) (03/07/2018 3:40 PM EST) Anatomical Region Laterality Modality Chest N/A Radiographic Shana ging 03/07/2018 3:40 PM EST Impressions 03/07/2018 4:00 PM EST No active cardiopulmonary disease. Thank you for letting us participate in the care of this patient. For questions regarding this report, please contact the number below. ? Narrative 03/07/2018 4:00 PM EST EXAMINATION: CHEST PA/LAT (2VWS) -ROUTN CLINICAL HISTORY: COUGH X2 MOS EVAL FOR PNEUMONIA, ?? TECHNIQUE: PA and lateral views of the chest. COMPARISON: 05/29/2017 FINDINGS: The lungs are clear. There is no pleural effusions or pneumothorax. The cardiomediastinal silhouette is unremarkable. Procedure Note Pedro Leigh MD - 03/07/2018 EXAMINATION: CHEST PA/LAT (2VWS) -ROUTN CLINICAL HISTORY: COUGH X2 MOS EVAL FOR PNEUMONIA, TECHNIQUE: PA and lateral views of the chest. COMPARISON: 05/29/2017 FINDINGS: The lungs are clear. There is no pleural effusions or pneumothorax. The cardiomediastinal silhouette is unremarkable. IMPRESSION No active cardiopulmonary disease. Thank you for letting us participate in the care of this patient. Forquestions regarding this report, please contact the number below. Amada Carson MD IMG DX ORDERABLES documented in this encounter Visit Diagnoses Not on filedocumented in this encounter Care Teams Supervisor Wrapping Room Relationship Specialty Start Date End [place] [address] PCP - General 11/18/14 06/08/18 documented as of this encounter
--- OUTSIDE RECORDS SUMMARY | 2024-01-13 18:58 | XMS_ITS | Encounter Summary ---
Author Organization [facility] [place] [address] Care Team Providers Care Clinical Research Scientist Name Role Phone Amada Carson MD Primary Care Provider [phone] Encounter Details Date Type Department Care Team (Late st Contact Info) Description 04/26/2018 Interpretation Only [facility] [address] [place] [id number] Martha Barrientos MD [address] [place] [address] Social History Tobacco Use Types Packs/Day Years [...] Comments XR CHEST PA AND LATERAL Routine 04/26/2018 12:03 PM EST documented in this encounter Results * XR Chest PA & Lateral (Generic) (04/26/2018 12:03 PM EST) Anatomical Region Laterality Modality Chest N/A Radiographic Shana ging 04/26/2018 12:0 3 PM EST Impressions 04/26/2018 2:10 PM EST No acute cardiopulmonary process. Preliminary report signed by: SAMSON CHEN at 04/26/2018 12:16 PM I have personally reviewed the image(s) and the residents interpretation and agree with the findings, Fletcher Mendez at 04/26/2018 2:05 PM Thank you for letting us participate in the care of this patient. For questions regarding this report, please contact the number below. ? Electronically signed by: Fletcher Mendez [facility] ([phone]), at 04/26/2018 2:05 PM Narrative 04/26/2018 2:10 PM EST EXAMINATION: CHEST PA/LAT (2VWS) -ROUTN CLINICAL HISTORY: COU - COUGH TECHNIQUE: PA and lateral chest radiograph. COMPARISON: Prior chest radiographs 03/07/2018 and 05/29/2017. FINDINGS: The lungs are clear. No pneumothorax. No pleural effusions. The cardiomediastinal silhouette is normal in size. No acute osseous abnormalities. Procedure Note Fletcher Mendez MD - 04/26/2018 EXAMINATION: CHEST PA/LAT (2VWS) -ROUTN CLINICAL HISTORY: COU - COUGH TECHNIQUE: PA and lateral chest radiograph. COMPARISON: Prior chest radiographs 03/07/2018 and 05/29/2017. FINDINGS: The lungs are clear. No pneumothorax. No pleural effusions. The cardiomediastinal silhouette is normal in size. No acute osseousabnormalities. IMPRESSION No acute cardiopulmonary process. Preliminary report signed by: SAMSON CHEN at 04/26/2018 12:16 PM I have personally reviewed the image(s) and the residents interpretationand agree with the findings, Fletcher Mendez at 04/26/2018 2:05 PM Thank you for letting us participate in the care of this patient. Forquestions regarding this report, please contact the number below. Electronically signed by: Fletcher Mendez [facility]([phone]), at 04/26/2018 2:05 PM Martha Barrientos MD IMG DX ORDERABLES documented in this encounter Visit Diagnoses Not on filedocumented in this encounter Care Teams Clinical Research Scientist Relationship Specialty Start Date End Date Amada Carson MD [address] [place] [address] PCP - General 11/18/14 06/08/18 documented as of this encounter
--- OUTSIDE RECORDS SUMMARY | 2024-01-13 18:58 | XMS_ITS | Encounter Summary ---
Author Organization [facility] Address [facility] [place] [address] Care Team Providers Care Mattress Weaver Name Role Phone Amada Carson MD Primary Care Provider [phone] Encounter Details Date Type Department Care Team (Late st Contact Info) Description 04/30/2018 Abstract Nancy Javed Conversion Results [address] [place] [phone] Apd Conversion, Flowsheet Provider, Social History Tobacco [...] Sign Reading Time Taken Comments Blood Pressure 138/82 04/30/2018 10:02 AM EDT Sourced from APD Conversion Pulse - - Temperature - - Respiratory Rate - - Oxygen Saturation - - Inhaled Oxygen Concentration - - Weight - - Height 168 cm (5' 6.14) 04/30/2018 10: 02 AM EDT Sourced from APD Conversion Body Mass Index - - documented in this encounter Plan of Treatment Not on file documented as of this encounter Visit Diagnoses Not on filedocumented in this encounter Care Teams Mattress Weaver Relationship Specialty Start Date End Date Amada Carson MD [address] [place] [address] PCP - General 06/09/18 08/27/18 documented as of this encounter
--- OUTSIDE RECORDS SUMMARY | 2024-01-13 18:58 | XMS_ITS | Encounter Summary ---
Author Organization [facility] Address [facility] [place] [address] Care Team Providers Care Intensivist Name Role Phone Amada Carson MD Primary Care Provider +1 [phone] Encounter Details Date Type Department Care Team (Late st Contact Info) Description 11/07/2017 External Results Laboratory at [facility] [address] [place] [phone] Amada Carson MD 5 [facility] [place] [address] Social History Tobacco Use Types Packs/Day Years [...] Associated Diagnosis Comments BASIC METABOLIC PANEL Routine 11/07/2017 12:50 PM EDT documented in this encounter Results * (ABNORMAL) Basic Metabolic Panel (non-fasting) (11/07/2017 12:50 PM EDT) Sodium 138(Gas Line Installer Supervisor al Lab) 135 - 145 mmol/L [facility] Potassium 3.8(Gas Line Installer Supervisor al Lab) 3.5 - 5.1 mmol/L [facility] Chloride 105(Gas Line Installer Supervisor al Lab) 98 - 107 mmol/L [facility] Carbon Dioxide 25(Externa l Lab) 21 - 32 mmol/L [facility] Anion Gap 11.8(Exter nal Lab) 9 - 16.5 mmol/L [facility] Osmolality 264(Gas Line Installer Supervisor al Lab) 261 - 280 mosm/kg [facility] Glucose 80(Externa l Lab) 74 - 106 mg/dL [facility] Blood Urea Nitrogen 9(External Lab) 7 - 18 mg/dL [facility] Creatinine 0.79(Exter nal Lab) 0.55 - 1.02 mg/dL [facility] BUN/Cre Ratio 11.4(Exter nal Lab) 7.0 - 25.0 [facility] Est Glomerular Filtration Rate > 60(Externa l Lab) mL/min [facility] Comment: Estimated GFR is to assist you [...] in patients with diabetic kidney disease. Calcium 9.0(Gas Line Installer Supervisor al Lab) 8.5 - 10.1 mg/dL [facility] 11/07/2017 12:5 0 PM EDT 11/07/2017 1:52 PM EDT Amada Carson MD CHEMISTRY ORDERAB LES [facility] [address] [facility] [place] [address] documented in this encounter Visit Diagnoses Not on filedocumented in this encounter Care Teams Intensivist Relationship Specialty Start Date End Date Amada Carson MD [address] [facility] [place] [address] PCP - General 11/18/14 06/08/18 documented as of this encounter
--- OUTSIDE RECORDS SUMMARY | 2024-01-13 18:59 | XMS_ITS | Encounter Summary ---
Author Organization [facility] Address One [facility] [place] [address] Care Team Providers Care Rv Detailer Name Role Phone Amada Carson MD Primary Care Provider [phone] [phone] Encounter Details Date Type Department Care Team (Late st Contact Info) Description 01/03/2016 Interpretation Only Radiology 1 [facility] [place] [address] Unknown None Social History Tobacco Use Types Packs/Day [...] Comments XR CHEST PA AND LATERAL Routine 01/03/2016 4:22 PM EST documented in this encounter Results * XR Chest PA & Lateral (Generic) (01/03/2016 4:22 PM EST) Anatomical Region Laterality Modality Chest N/A Radiographic Shana ging 01/03/2016 4:22 PM EST Narrative 01/03/2016 4:22 PM EST APD Historical Result Principal Resident Care Supervisor: ??SREEDHAR ??PALIWAL CHEST - FRONTAL AND LATERAL VIEWS: CLINICAL HISTORY: ??Coughing for 8 weeks. No comparison study is available. FINDINGS: No focal consolidation. ??The cardiomediastinal silhouette is within normal limits. ??There are no pleural effusions or pneumothorax. IMPRESSION: No acute cardiopulmonary findings. Sreedhar Gong MD AP/mn [id number] Procedure Note Unknown - 08/18/2018 APD Historical Result Principal Resident Care Supervisor: SREEDHAR GONG CHEST - FRONTAL AND LATERAL VIEWS: CLINICAL HISTORY: Coughing for 8 weeks. No comparison study is available. FINDINGS: No focal consolidation. The cardiomediastinal silhouette is within normallimits. There are no pleural effusions or pneumothorax. IMPRESSION: No acute cardiopulmonary findings. Sreedhar Gong MD AP/mn [id number] Unknown IMG DX ORDERABLES documented in this encounter Visit Diagnoses Not on filedocumented in this encounter Care Teams Rv Detailer Relationship Specialty Start Date End Date Amada Carson MD [address] [place] [address] PCP - General 06/09/18 08/27/18 documented as of this encounter
--- OUTSIDE RECORDS SUMMARY | 2024-01-13 18:59 | XMS_ITS | Encounter Summary ---
Author Organization [facility] [place] [address] Care Team Providers Care Real Estate Rental Agent Name Role Phone Amada Carson MD Primary Care Provider +1 [phone] Encounter Details Date Type Department Care Team (Late st Contact Info) Description 08/02/2014 Orders Only Radiology and Cardiology Results [address] [place] [phone] Apd Conversion, Results Provider, Social History Tobacco [...] Procedure Name Priority Date/Time Associated Diagnosis Comments TSH Routine 08/02/2014 documented in this encounter Results * (ABNORMAL) TSH (08/02/2014) Thyroid Stimulating Hormone 2.080(Ext ernal Lab) 0.358 - 3.74 GUALBERTO JAVED CONVERSION 08/02/2014 Results Provider Apd Conversion MD GAVINO GALARZA ORDERABLES GUALBERTO JAVED CONVERSION documented in this encounter Visit Diagnoses Not on filedocumented in this encounter Care Teams Real Estate Rental Agent Relationship Specialty Start Date End Date Amada Carson MD [address] [place] [address] PCP - General 06/09/18 08/27/18 documented as of this encounter
--- OUTSIDE RECORDS SUMMARY | 2024-01-13 18:59 | XMS_ITS | Encounter Summary ---
Author Organization [facility] [place] [address] Care Team Providers Care Scrap Iron Cutter Name Role Phone Unavailable Primary Care Provider Unavailabl e Reason for Visit * Reason Comments Post Op Encounter Details Date Type Department Care Team (Late st Contact Info) Description 01/06/2014 1:45 PM EST Office [place] [address] [facility] [place] [address] Follow-up examination after eye surgery; Post-operative state; Exotropia Discharge Disposition: Home Social History Tobacco Use [...] as of this encounter Progress Notes * Genevieve Ragsdale MD - 01/18/2014 2:11 PM EST POW#1 s/p BLRc 9.0mm OD; 8.0mm OS 12/31/13. Normal post op healing appearance. Explained that it can take a few weeks to month for redness to completely resolve. No swimming x 1 more week. Baths ok. Nice early post op alignment with goal of slight undercorrection due to diplopic responses on prismadaptation testing. Small exotropia 10-12 distance and near. F/u 3 months. GNEEVIEVE RAGSDALE MD documented in this encounter Plan of Treatment Not on file documented as of this encounter Visit Diagnoses Diagnosis Follow-up examination after eye surgery Follow-up examination, following other surgery Post-operative state Other postprocedural status Exotropia Exotropia, unspecified documented in this encounter
--- OUTSIDE RECORDS SUMMARY | 2024-01-13 18:59 | XMS_ITS | Encounter Summary ---
Author Organization [facility] Address [facility] [place] [address] Care Team Providers Care Chargemaster Specialist Name Role Phone Unavailable Primary Care Provider Unavailabl e Reason for Visit * Reason Comments Strabismus Pt requesting surgic al evaluation Encounter Details Date Type Department Care Team (Late st Contact Info) Description 09/21/2013 9:00 AM EDT Office [place] [address] Genevieve Ragsdale MD [facility] [place] [address] Exotropia; Hypertropia Discharge Disposition: Home Social History Tobacco Use Types Packs/Day Years Used Date Smoking Tobacco: Former Cigarettes 0.3 2 0 06/18/2007 - 06/17/2009 Smokeless Tobacco: Never Alcohol Use Standard Drinks/Week Comments No 0 (1 standard drink = 0.6 oz pur e alcohol) Sex and Gender Information Value Date Recorded Sex Assigned at Not on file Gender Identity Not on file Sexual Orientation Not on file documented as of this encounter Progress Notes * Genevieve Ragsdale MD - 09/21/2013 10:57 AM EDT Kimberli Bales is a 27 y.o. female with h/o possible pseudotumor cerebri, post- hemorrhage, UTIs, and; 1. Longstanding constant exotropia, small right hypertropia. Strong LE fixation preference, alternates spontaneously. No control. She is interested in surgical correction. Details of surgery, including use of GA, adjustable sutures, day of surgery, recovery, and R/B/A discussed with the patient. Kimberli verbalized understanding the potential need for further surgery, recurrence (10-20%), under- and over-correction, development of other eye misalignment, double vision, and rarely loss of vision. She wishes to proceed with surgery. Informed consent obtained. Plan: Patient to meet with our surgical pathologist, Genevieve Gao, today to arrange surgery. Discussed need for pre-op H and P within 30 days of surgery; Stop ASA/NSAIDS for 2 weeks prior to surgery. Surgical packet provided, including handout Eye Muscle Surgery: What to Expect, AAPOS handout, [facility] information; all questions answered. [facility] Health Assessment filled out. Surgery order placed. Anticipate BLRc for 45-50. Surgical goal: Ortho to small ET<5. Pre-op sensorimotor exam: Yes, with Eusebia Villanueva. Location: [facility]. Follow up: 1 week and 3 months post op. GENEVIEVE RAGSDALE MD documented in this encounter Plan of Treatment Not on file documented as of this encounter Procedures Procedure Name Priority Date/Time Associated Diagnosis Comments STRABIS SURG, PLACEMENT ADJUST SUTUR IN CONJUNCT W/ OTHER SURG Routine 09/21/2013 11:02 AM EDT Exotropia Hypertropia STRABISMUS SURGERY, ONE HORIZONTAL MUSCLE,BILATERAL Routine 09/21/2013 11:02 AM EDT Exotropia Hypertropia SENSORIMOTOR EXAM Routine 09/21/2013 11: 01 AM EDT Exotropia Hypertropia documented in this encounter Results * SENSORIMOTOR EXAM [IA SPECIAL EYE EXAM] - OU- BOTH EYES (09/21/2013 11:01 AM EDT) Anatomical Region Laterality Modality Other Narrative 09/21/2013 11:01 AM EDT Large angle constant exotropia, with small right hypertropia. ?? Longstanding. ??LE fixation preference, can alternate. Procedure Note Genevieve Ragsdale MD - 09/21/2013 Large angle constant exotropia, with small right hypertropia. Longstanding. LE fixation preference, can alternate. Genevieve Ragsdale MD OPHTHALMOLOGY SERVIC ES ORDERABLES documented in this encounter Visit Diagnoses Diagnosis Exotropia Exotropia, unspecified Hypertropia documented in this encounter
--- OUTSIDE RECORDS SUMMARY | 2024-01-13 18:59 | XMS_ITS | Encounter Summary ---
Author Organization [facility] [place] [address] Care Team Providers Care Packager And Strapper Name Role Phone Unavailable Primary Care Provider Unavailabl e Reason for Visit * Reason Comments Eye Problem pseudotumor cerebri eval Encounter Details Date Type Department Care Team (Late st Contact Info) Description 09/16/2012 1:30 PM EDT Office Visit [place] [address] Joelle Monaco MD [facility] [place] [address] Myopia (Primary Dx); Headache; Exotropia Discharge Disposition: Home Social History Tobacco [...] as of this encounter Progress Notes * Joelle Monaco MD - 09/16/2012 8:21 PM EDT 26 yo woman with chronic, significant headaches with long-standing exotropia and strabismus who hasno evidence of current or past optic nerve swelling, normal opening pressure on lumbar puncture andnormal neuroimaging with obesity. The patient has lost a significant amount of weight over the lastyear. She has no evidence from the ophthalmic perspective of intracranial hypertension, only concerning symptoms due to head pulsations and headache. Given her healthy optic nerve appearance and excellent vision as well as a lack of improvement for po diamox, she would like to stop po diamox and I have no indications that this would not be a reasonable course. Refraction done today. Recommend continued follow up for headache management and continued weight loss efforts. Will follow up if visualsymptoms occur or headaches increase. documented in this encounter Plan of Treatment Not on file documented as of this encounter Visit Diagnoses Diagnosis Myopia- Primary Headache(784.0) Headache Exotropia Exotropia, unspecified documented in this encounter
--- OUTSIDE RECORDS SUMMARY | 2024-01-13 18:59 | XMS_ITS | Encounter Summary ---
Author Organization [facility] Address [facility] [place] [address] Care Team Providers Care Lifestyle Consultant Name Role Phone Amada Carson MD Primary Care Provider [phone] [phone] Encounter Details Date Type Department Care Team (Latest Contact Info) Description 07/27/2015 10:43 PM EDT - 07/27/2015 11:59 PM EDT Hospital [place] [address] Discharge Disposition: Home Social History Tobacco Use [...] Sig Dispensed Refills Start Date End Date ACETAMINOPHEN (TYLENOL ORAL) Take 325 mg by mouth as needed. 07/22/2018 documented as of this encounter Plan of Treatment Not on file documented as of this encounter Procedures Procedure Name Priority Date/Time Associated Diagnosis Comments HPV Routine 07/27/2015 11:00 AM EDT UPHOLSTERY INSTRUCTOR CYTOLOGY INTERPRETATION Routine 07/27/2015 11:00 AM EDT UPHOLSTERY INSTRUCTOR CYTOLOGY FINAL REPORT Routine 07/27/2015 11:00 AM EDT documented in this encounter Results * UPHOLSTERY INSTRUCTOR Cytology Interpretation (07/27/2015 11:00 AM EDT) Manager Urgent Care Cytology Interpretation [facility] Comment:Manager Urgent Care Cytology Final R eport Endocervical Component Present [facility] AP Specimen 07/27/2015 11:0 0 AM EDT 08/02/2015 1:04 PM EDT Narrative Resulting Agency Comment Spec In Lab / APD Amada Carson MD PATHOLOGY/CYTOLOG Y ORDERABLES [facility] [place] [address] * Manager Urgent Care Cytology Final Report (07/27/2015 11:00 AM EDT) Manager Urgent Care Cytology Final Report [id number] ? Location: APDO The signing pathologist has (i) examined the relevant preparation(s) for the specimen(s) and (ii) rendered or confirmed the diagnosis(es). . ? Manager Urgent Care Final DIAGNOSIS NORMAL Negative for Intraepithelial Lesion or Malignancy (NILM). 08/02/15 ?? Screened by: ??LEATHA 08/02/15 ?? Verified by: ??EMANUEL Patel(ASCP), Joelle Cook - Neuroradiologist HPV RESULTS HPV16 (Result) ?NEGATIVE HPV18 (Result) [...] to detect low risk HPV types. Boyd garret HPV test Specimen: HPV Testing - Cytology Liquid Based Prep The Boyd garret ? HPV test was validated, performed and results reported through the [facility] ([facility]) at [facility]. ? - Janes Ballesteros, PhD, HCLD, Director-[facility] STATEMENT OF ADEQUACY Specimen submitted is satisfactory. Endocervical component present. CLINICAL INFORMATION HPV Option: ? Cervical Endocervical LBP Preparation: ?Liquid Based Pap Specimen Source: ?Concurrent HPV LMP: ?05/18/16 Hormones?: ?No Hysterectomy?: ?No ?: ?No ?: ?No I.U.D.?: ?No Pelvic Radiation: ? No Prior UPHOLSTERY INSTRUCTOR Therapy?: ? No Hist Abnl Pap/Biopsy?: ??Yes Hist of HPV Vaccine?: ?? No Hist of Smoking?: ? Yes Hist of FABIOLA exposure?: ??No Clinical Data, Significant Therapy and Clinical Impression ?? : ?? _ Referring Identifier: ??[id number] This Pap Test has been evaluated with the assistance of the Replica Labsp Pap Test Imaging System. . CLINICAL INFORMATION Note: The Pap test is a screening test for cervical cancer with an inherent false-negative rate dependent upon several variables. ??For further information please contact the [facility] Laboratory. Reference: ??Chiqui CS. ??Apparel Machinery Instructor of Pap Smear Results. ??In: ??Evaristo BS, Jeovanny HH, ed. ??The Pap Smear. ??[place]: ??Kyle, 2002: ??71-77. [facility] 07/27/2015 11:0 0 AM EDT Narrative Resulting Agency Comment Spec In Lab / APD Amada Carson MD PATHOLOGY/CYTOLOG Y ORDERABLES Performing Organization Address [facility] Co de Phone Number [facility] [place] [address] * HPV (07/27/2015 11:00 AM EDT) HPV16 NEGATIVE NEGATIVE [facility] HPV 18 NEGATIVE NEGATIVE [facility] HPV Other HR NEGATIVE NEGATIVE [facility] HPV Interpretation See Comment [facility] Comment: NEGATIVE for high-risk HPV *. * Testing negative for high risk HPV means that the specimen is negative for the following 14 types tested: ??types 16, 18, 31, 33, 35, 39, 45, 51, 52, 56, 58, 59, 66, and 68. ??The test is not intended to detect low risk HPV types. Boyd Garret HPV test Specimen: HPV Testing - Cytology Liquid Based Prep Cervical swab (specimen) 07/27/2015 11:00 AM EDT 07/27/2015 10:49 PM EDT Narrative Resulting Agency Comment Spec In Lab / APD Amada Carson MD PATHOLOGY/CYTOLOG Y ORDERABLES Performing Organization Address City/[facility] Co de Phone Number [facility] [place] [address] documented in this encounter Visit Diagnoses Not on filedocumented in this encounter Care Teams Lifestyle Consultant Relationship Specialty Start Date End Date Amada [place] [address] PCP - General 11/18/14 06/08/18 documented as of this encounter
--- OUTSIDE RECORDS SUMMARY | 2024-01-13 18:59 | XMS_ITS | Encounter Summary ---
Author Organization [facility] [place] [address] Care Team Providers Care Computer Repair Instructor Name Role Phone Unavailable Primary Care Provider Unavailabl e Encounter Details Date Type Department Care Team (Late st Contact Info) Description 08/20/2012 Orders [place] [address] Maikol Willis MD [facility] [place] [address] Social History Tobacco Use Types Packs/Day Years [...]
--- OUTSIDE RECORDS SUMMARY | 2024-01-13 18:59 | XMS_ITS | Encounter Summary ---
Author Organization [facility] [place] [address] Care Team Providers Care Instrument Assembler Name Role Phone Amada Carson MD Primary Care Provider +1 [phone] Encounter Details Date Type Department Care Team (Late st Contact Info) Description 08/02/2015 Orders Only Radiology and Cardiology Results [address] [place] [phone] Apd Conversion, Results Provider, Social History Tobacco [...] Priority Date/Time Associated Diagnosis Comments TSH Routine 08/02/2015 documented in this encounter Results * (ABNORMAL) TSH (08/02/2015) Thyroid Stimulating Hormone 2.669(Ext ernal Lab) 0.358 - 3.740 GUALBERTO VILLAFUERTE CONVERSION 08/02/2015 Results Provider Apd Conversion MD GAVINO GALARZA ORDERABLES GUALBERTO VILLAFUERTE CONVERSION documented in this encounter Visit Diagnoses Not on filedocumented in this encounter Care Teams Instrument Assembler Relationship Specialty Start Date End Date Amada Carson MD [address] [place] [address] PCP - General 06/09/18 08/27/18 documented as of this encounter
--- OUTSIDE RECORDS SUMMARY | 2024-01-13 18:59 | XMS_ITS | Encounter Summary ---
Author Organization [facility] [place] [address] Care Team Providers Care Director Medical Affairs Name Role Phone Amada Carson MD Primary Care Provider +1 [phone] Encounter Details Date Type Department Care Team (Latest Contact Info) Description 08/19/2015 9:37 PM EDT - 08/19/2015 11:59 PM EDT Hospital [place] [phone] Discharge Disposition: Home Social History Tobacco Use [...] Procedure Name Priority Date/Time Associated Diagnosis Comments SURGICAL PATHOLOGY REPORT Routine 08/19/2015 12:00 PM EDT documented in this encounter Results * Surgical Pathology Report (08/19/2015 12:00 PM EDT) Final Diagnosis [id number] ? Location: APDO The signing pathologist has (i) examined the relevant preparation(s) for the specimen(s) and (ii) rendered or confirmed the diagnosis(es). . ?Surgical Pathology DIAGNOSIS Endometrial biopsy: ?? 1. Fragments of benign proliferative endometrium intermixed ?with blood clot. ?? 2. No evidence of hyperplasia or endometritis. CR-0 08/25/15 LJT 08/25/15 Verified by: ? Darrick LI, Betsey Trejo ?Pathologist ?(Electronic Signature) The attending pathologist whose signature appears on this report has reviewed all diagnostic slides and has edited the gross and/or microscopic portion of the report in rendering the final pathologic diagnosis. CLINICAL INFORMATION Specimen Submitted: A - Endometrial biopsy Clinical History: Menorrhagia Clinical Diagnosis: Rule out hyperplasia/cance r Referring Identifier: ??[id number] SPECIMEN PROCESSING A - Labeled/Fixative: EM BX, formalin. Quantity/Size: Mucus, 1.5 x 1.5 x 1.5 cm. Tissue Description: Hemorrhagic mucus. Sections/Processi ng: (T2) ??ksb 08/25/2015 8:50 AM EDT [facility] ENDOMETRIAL STRUCTURE / Unknown 08/19/2015 12:00 PM EDT 08/19/2015 12:00 PM EDT Narrative Resulting Agency Comment Spec In Lab / APD Sherrell Schmidt MD PATHOLOGY/CYTOLOGY O RDERABLES [facility] [place] [address] documented in this encounter Visit Diagnoses Not on filedocumented in this encounter Care Teams Director Medical Affairs Relationship Specialty Start Date End Date Amada Carson [place] [address] PCP - General 10/1/15 4/21/19 documented as of this encounter
--- OUTSIDE RECORDS SUMMARY | 2024-01-13 18:59 | XMS_ITS | Encounter Summary ---
Author Organization [facility] [place] [address] Care Team Providers Care Improvement Director Name Role Phone Amada Carson MD Primary Care Provider [phone] [phone] Encounter Details Date Type Department Care Team (Late st Contact Info) Description 08/15/2012 Orders Only Radiology and Cardiology Results [address] [place] [phone] Apd Conversion, Results Provider, Social History Tobacco [...] Procedure Name Priority Date/Time Associated Diagnosis Comments VITAMIN B12 Routine 08/15/2012 documented in this encounter Results * (ABNORMAL) Vitamin B12 (08/15/2012) Vitamin B12 626(Compensation Associate al Lab) 211 - 229 GUALBERTO JAVED CONVERSION 08/15/2012 Results Provider Apd Conversion MD GAVINO GALARZA ORDERABLES GUALBERTO JAVED CONVERSION documented in this encounter Visit Diagnoses Not on filedocumented in this encounter Care Teams Improvement Director Relationship Specialty Start Date End Date Amada Carson MD [address] [place] [address] PCP - General 06/09/18 08/27/18 documented as of this encounter
--- OUTSIDE RECORDS SUMMARY | 2024-01-13 18:59 | XMS_ITS | Encounter Summary ---
Author Organization [facility] [place] [address] Care Team Providers Care Helper/Driver Name Role Phone Unavailable Primary Care Provider Unavailabl e Encounter Details Date Type Department Care Team (Late st Contact Info) Description 08/20/2012 [place] [address] Jeremias Childs DO [facility] [place] [address] Social History Tobacco Use Types Packs/Day Years [...] encounter Miscellaneous Notes * Telephone Encounter - Jeremias Childs MD - 08/20/2012 3:30 PM EDT Spoke with Kimberli regarding her opening pressure today. Continue at diamox 250 mg BID for now. Asked her to wait for a neuro-opth appointment and to call afterwards. Will cover for Dr. [place] in her absence. Jeremias Childs DO Resident in Neurology documented in this encounter Plan of Treatment Not on file documented as of this encounter Visit Diagnoses Not on filedocumented in this encounter
--- OUTSIDE RECORDS SUMMARY | 2024-01-13 18:59 | XMS_ITS | Encounter Summary ---
Author Organization Formerly [facility] Address [facility] [place] [address] Care Team Providers Care Major Assembler Name Role Phone Amada Carson MD Primary Care Provider [phone] [phone] Encounter Details Date Type Department Care Team (Late st Contact Info) Description 10/11/2014 Abstract Nancy Javed Conversion Results [address] [place] [id number] Apd Conversion, Flowsheet Provider, Social History Tobacco [...] Sign Reading Time Taken Comments Blood Pressure 130/84 10/11/2014 1:23 PM EDT Sourced from APD Conversion Pulse - - Temperature - - Respiratory Rate - - Oxygen Saturation - - Inhaled Oxygen Concentration - - Weight - - Height 168 cm (5' 6.14) 10/11/2014 1:2 3 PM EDT Sourced from APD Conversion Body Mass Index - - documented in this encounter Plan of Treatment Not on file documented as of this encounter Visit Diagnoses Not on filedocumented in this encounter Care Teams Major Assembler Relationship Specialty Start Date End Date Amada Carson MD [address] [place] [address] PCP - General 06/09/18 08/27/18 documented as of this encounter
--- OUTSIDE RECORDS SUMMARY | 2024-01-13 18:59 | XMS_ITS | Encounter Summary ---
Author Organization Replaced By [facility] Address [facility] [place] [address] Care Team Providers Care Vending Machine Coin Collector Name Role Phone Unavailable Primary Care Provider Unavailabl e Reason for Visit * Reason Comments Eye Pain Eye pain,sensitive t o light ,OD Photophobia Encounter Details Date Type Department Care Team (Late st Contact Info) Description 01/22/2014 10:30 AM EST Office [place] [address] Genevieve Ragsdale MD [facility] [place] [address] Exotropia; Post-operative state Discharge Disposition: Home Social History Tobacco Use [...] Progress Notes * Genevieve Ragsdale MD - 01/25/2014 9:49 PM EST S/p BLRc 9.0mm OD; 8.0mm OS 12/31/13 for exotropia. Good post op alignment initially, then sudden change with pain and XT recurrent 2 days ago. It appears on exam that the LR has migrated anteriorly on the eye with the adjustable suture/hangback. Discussed options - I recommend we consider return to OR within the next few weeks to explore and re-recess the RLR with direct scleral placement. If not slipped anteriorly, then would perform RMRx. She would like to proceed. R/B/A discussed and informed consent obtained. She met with Rena Mcgovern today to coordinate - we can potentially add on next week. GENEVIEVE RAGSDALE MD documented in this encounter Plan of Treatment Not on file documented as of this encounter Procedures Procedure Name Priority Date/Time Associated Diagnosis Comments STRABISMUS SURG W/ SCARRING EXTRAOC MUSC/S + OTHER SURGERY Routine 01/22/2014 11:42 AM EST Exotropia documented in this encounter Visit Diagnoses Diagnosis Exotropia Exotropia, unspecified Post-operative state Other postprocedural status documented in this encounter
--- OUTSIDE RECORDS SUMMARY | 2024-01-13 18:59 | XMS_ITS | Encounter Summary ---
Author Organization [facility] [place] [address] Care Team Providers Care Costume Seamstress Name Role Phone Unavailable Primary Care Provider Unavailabl e Reason for Visit * Reason Onset Date Comments Post Procedure Call 01/01/2014 Encounter Details Date Type Department Care Team (Late st Contact Info) Description 01/01/2014 Telephone [place] [address] Genevieve Ragsdale MD [facility] [place] [address] Post Procedure Call Social History Tobacco Use Types Packs/Day Years [...] encounter Miscellaneous Notes * Telephone Encounter - Genevieve Ragsdale MD - 01/01/2014 1:35 PM EST Post op day #1, s/p strabismus surgery. Called and spoke to Kimberli for post op check. She did well overnight, getting sleep. Very light sensitive still, difficulty keeping eyes open for more than a second or 2. No diplopia noted when able to open eye. Using tobradex as prescribed. Will see post op 01/06/14 as scheduled and patient/family will call sooner if questions or concerns. Reviewed signs/symptoms of infection and reasons to call. GENEVIEVE RAGSDALE MD documented in this encounter Plan of Treatment Not on file documented as of this encounter Visit Diagnoses Diagnosis Post-operative state Other postprocedural status documented in this encounter
--- OUTSIDE RECORDS SUMMARY | 2024-01-13 18:59 | XMS_ITS | Encounter Summary ---
Author Organization [facility] [place] [address] Care Team Providers Care Teletype Operator Name Role Phone Unavailable Primary Care Provider Unavailabl e Reason for Referral * Consultation (Routine) - Closed Specialty Diagnoses / Procedures Referred By Stacy harper Referred To Contact Ophthalmology Diagnoses Pseudotumor cerebri Eusebia Nelson MD [facility] [place] [address] Joelle Monaco MD [facility] DR OPHTHALMOLOGY [place] [address] Referral ID Status Reason Start Date Expiration Date V isits Requested Visits Authorized [id number] Closed Consult, Test & Treat 06/18/2012 12/15/2012 1 1 Encounter Details Date Type Department Care Team (Late st Contact Info) Description 06/18/2012 Telephone Neurology at [place] [phone] Eusebia Nelson MD [facility] [place] [address] Social History Tobacco Use Types Packs/Day Years [...] Miscellaneous Notes * Telephone Encounter - Eusebia Nelson - 06/18/2012 9:31 AM EDT Called Patient 9:30 am on 18 Jun 2012 Patient has K 3.6, there fore can receive supplementation K to help with the acidosis that is present with the Diamox Sent prescription Potassium Chloride 20mEq daily to her pharmacy She will call in 2 weeks with an update She is also asking for referral to Optho be sent Referral placed Eusebia Nelson MD Neurology Resident Pager [phone] documented in this encounter Plan of Treatment Scheduled Referrals Name Type Priority Associated Diagnoses Order Schedule Referral to Ophthalmology Outpatient Referral Routine Pseudotumor cerebri Ordered: 06/18/2012 documented as of this encounter Visit Diagnoses Diagnosis Pseudotumor cerebri- Primary Benign intracranial hypertension documented in this encounter
--- OUTSIDE RECORDS SUMMARY | 2024-01-13 18:59 | XMS_ITS | Encounter Summary ---
Author Organization [facility] [place] [address] Care Team Providers Care Licensed Esthetician Name Role Phone Unavailable Primary Care Provider Unavailabl e Reason for Visit * Reason Comments Eye Pain R Encounter Details Date Type Department Care Team (Late st Contact Info) Description 01/21/2014 4:21 PM EST - 01/21/2014 8:43 PM EST [place] [address] Callie Mathew MD [facility] [place] [address] Eye pain, right Discharge Disposition: Home Social History Tobacco Use [...] Sign Reading Time Taken Comments Blood Pressure 141/76 01/21/2014 5:03 PM EST Pulse 82 01/21/2014 5:03 PM EST Temperature 36.8 ??C (98.2 ??F) 01/21/2014 5:03 PM ES T Respiratory Rate 14 01/21/2014 5:03 PM EST Oxygen Saturation 100% 01/21/2014 5:03 PM EST Inhaled Oxygen Concentration - - Weight - - Height - - Body Mass Index - - documented in this encounter Discharge Instructions * Discharge Instructions* Sunny Bills - 01/21/2014 8:00 PM EST Instruction after leaving the hospital Why you were in the ED: right eye pain Call your doctor or seek medical attention if you develop the following: worsening symptoms, fever,chills, total vision loss Specific instructions related to your condition: You can take the eye drops as directed If you have tobramycin drops at home it you can use those as directed. Tylenol and ibuprofen for discomfort Oxycodone for more severe pain Dr. Walsh's office will call you in the morning and see you before noon please call her if you have not heard from them by 9. documented in this encounter Medications at Time of Discharge Medication Sig Dispensed Refills Start Date End Date moxifloxacin (VIGAMOX) 0.5 % Drops Apply 1 drop to eye 3 times daily for 7 days. 3 mL 0 01/21/2014 01/28/2014 traMADol (ULTRAM) 50 mg Tablet Take 1 tablet by mouth every 6 hours as needed for Pain. 10 tablet 0 01/21/2014 01/22/2014 ACETAMINOPHEN (TYLENOL ORAL) Take 325 mg by mouth as needed. 07/22/2018 documented as of this encounter ED Notes * Callie Mathew MD - 01/21/2014 7:19 PM EST Chief Complaint: eye pain HPI: Kimberli Bales is a 28 y.o. female with a significant PMH of exotropia status post surgical correction by ophthalmology on 01/03 who presents to the Emergency Department with right eye pain. Patient had done well postop with no complications. She states that 2 days ago she began developing right eye pain, worse with movement heather began returning to pre-surgery movements. She states that she has mild photophobia and difficulty with conjugate gaze. She denies any fevers, chills, eye discharge.She has noticed some hemorrhage on the temporal region of the right eye. She thinks her vision is also slightly worse in that eye now. Review of Systems Constitutional: Negative for fever and chills. HENT: Positive for facial swelling. Negative for ear pain. Eyes: Positive for photophobia, pain, redness and visual disturbance. Negative for discharge. Respiratory: Negative for shortness of breath. Cardiovascular: Negative for chest pain. Gastrointestinal: Negative for nausea and vomiting. Neurological: Negative for headaches. Hematological: Does not bruise/bleed easily. BP 141/76 Pulse 82 Temp(Src) 36.8 ??C (98.2 ??F) (Oral) Resp 14 SpO2 100% Physical Exam Constitutional: She is oriented to person, place, and time. She appears well- developed and well-nourished. She appears distressed. HENT: Head: Normocephalic and atraumatic. Mouth/Throat: Oropharynx is clear and moist. Eyes: EOM are normal. Pupils are equal, round, and reactive to light. There is what appears to granuloma with mild conjunctival hemorrhage over the temporal aspect of the right eye. Pupils reactive and extraocular motion intact. Vision 20/70 bilaterally and with conjugate. IOP Right: 23 IOP Left: 22 There is no sign of hyphema, oblong pupil Cardiovascular: Normal rate. Pulmonary/Chest: Effort normal and breath sounds normal. Neurological: She is alert and oriented to person, place, and time. Skin: Skin is warm and dry. Psychiatric: She has a normal mood and affect. Nursing note and vitals reviewed. ED Course: - I reviewed the patients records: As above I discussed the case with: Dr. Walsh with ophthalmology MDM: Patient is a 28-year-old female 3 weeks out from operative management of strabismus presentingwith 2 days of right eye pain. On arrival she is afebrile with unremarkable vital signs. Exam showsintact extraocular motion, reactive pupils, and equal intraocular pressures bilaterally though there is some conjunctival hemorrhage on the temporal aspect of the right. Vision is 20/70. I spoke to ophthalmology who stated that it is reassuring findings this may be irritation as absorbable sutures sometimes form granuloma. It was recommended that she restart tobramycin drops, pain control, and close followup tomorrow in the clinic. Assessment: Right eye pain Plan: Tobramycin drops as directed by ophthalmology Pain control with Tylenol, ibuprofen and oxycodone for more severe pain Ophthalmology clinic will call you tomorrow to schedule appointment for AM Pt is safe to discharge home with return precautions. Pt understands and agrees with the current plan. Sunny Bills DO Resident 01/22/14 1229 ED ATTENDING ATTESTATION NOTE The patient was seen in conjunction with Dr. Bills, the resident physician. I have independently performed the kimball portions of the history and physical exam. I have reviewed all diagnostic studies personally including labs, imaging studies and EKGs. I have discussed the details of the case with theresident and agree with the assessment and plan as described in the resident note above unless noted otherwise below. Brief Summary: eye pain s/p surgery as above. Final Assessment: as above. Callie Mathew MD 01/23/14 0141 * Elder Hodge RN - 01/21/2014 6:49 PM EST Pt to room 5. She comes in with right eye pain and difficulty with her vision. She had surgery on her eye and feels that there is an increase pain especially under her right eye. No known injury. Pt is awake, alert and oriented x 3. Skin color is pink warm and dry. documented in this encounter Miscellaneous Notes * ED Triage - Jacklyn Hedrick RN - 01/21/2014 5:07 PM EST Pt sts she had eye surg 3 weeks ago to correct lazy eye bilat and last night developed sharp pokingsensation with blurring of vision. Pt sts the R side of her face hurts. Pt also sts the R eye is nolonger midline and back to presurg position. Pt otherwise in no acute distress, PWD, does appear uncomfortable documented in this encounter Plan of Treatment Not on file documented as of this encounter Visit Diagnoses Diagnosis Eye pain, right documented in this encounter
--- OUTSIDE RECORDS SUMMARY | 2024-01-13 18:59 | XMS_ITS | Encounter Summary ---
Author Organization [facility] Address [facility] [place] [address] Care Team Providers Care Windows Technical Specialist Name Role Phone Amada Carson MD Primary Care Provider [phone] Encounter Details Date Type Department Care Team (Late st Contact Info) Description 08/02/2014 Interpretation Only Radiology [address] [place] [address] Unknown None Social History Tobacco Use Types [...] Name Priority Date/Time Associated Diagnosis Comments CT ABDOMEN AND PELVIS WO CONTRAST Routine 08/02/2014 3:34 PM EDT documented in this encounter Results * CT Abdomen & Pelvis wo Contrast (08/02/2014 3:34 PM EDT) Anatomical Region Laterality Modality Abdomen, Pelvis Computed Tomogra phy 08/02/2014 3:34 PM EDT Narrative 08/02/2014 3:34 PM EDT APD Historical Result Principal Records Clerk: ??CRISTIAN ??RONALD CT ABDOMEN AND PELVIS WITHOUT CONTRAST: HISTORY: ??Left pelvic pain, hematuria, rule out stone. TECHNIQUE: ??Helical CT images are acquired through the abdomen and pelvis in the prone position without IV or oral contrast in the renal stone protocol. ??Axial, sagittal, and coronal images are presented for interpretation. FINDINGS: Lung bases are clear. ??The unenhanced viscera are unremarkable. Evaluation of the kidneys reveals no abnormal calcification, hydronephrosis, or hydroureter. ??The visualized bladder is grossly normal. There is no abnormal calcification in the pelvis. ??The uterus is essentially midline. ??Pelvic structures are somewhat poorly delineated without oral contrast. ??Uncomplicated diverticulosis is present. There is no overt free fluid. ??Enhancement or evaluation with ultrasound may be useful if clinical symptoms persist. ??The cecum and appendix appear normal. ??The osseous structures are grossly unremarkable. IMPRESSION: No acute abnormality. ??No etiology to the patient's hematuria or abdominal pain. ?? No obstruction, calcification, or hydroureter demonstrated. Cristian Carbajal MD PRATEEK/sandy [id number] CC: Procedure Note Unknown - 08/18/2018 APD Historical Result Principal Records Clerk: CRISTIAN CARBAJAL CT ABDOMEN AND PELVIS WITHOUT CONTRAST: HISTORY: Left pelvic pain, hematuria, rule out stone. TECHNIQUE: Helical CT images are acquired through the abdomen and pelvisin the prone position without IV or oral contrast in the renal stone protocol. Axial,sagittal, and coronal images are presented for interpretation. FINDINGS: Lung bases are clear. The unenhanced viscera are unremarkable. Evaluationof the kidneys reveals no abnormal calcification, hydronephrosis, or hydroureter. Thevisualized bladder is grossly normal. There is no abnormal calcification in the pelvis. The uterus isessentially midline. Pelvic structures are somewhat poorly delineated without oral contrast.Uncomplicated diverticulosis is present. There is no overt free fluid. Enhancement or evaluation with ultrasoundmay be useful if clinical symptoms persist. The cecum and appendix appear normal. Theosseous structures are grossly unremarkable. IMPRESSION: No acute abnormality. No etiology to the patient's hematuriaor abdominal pain. No obstruction, calcification, or hydroureter demonstrated. Cristian Carbajal MD PRATEEK/sandy [id number] CC: Unknown IMG CT ORDERABLES documented in this encounter Visit Diagnoses Not on filedocumented in this encounter Care Teams Windows Technical Specialist Relationship Specialty Start Date End Date Amada Carson MD [address] [place] [address] PCP - General 06/09/18 08/27/18 documented as of this encounter
--- OUTSIDE RECORDS SUMMARY | 2024-01-13 18:59 | XMS_ITS | Encounter Summary ---
Author Organization [facility] Address [facility] [place] [address] Care Team Providers Care Coil Rewind Machine Operator Name Role Phone Amada Carson MD Primary Care Provider [phone] [phone] Encounter Details Date Type Department Care Team (Late st Contact Info) Description 07/27/2015 Abstract Nancy Trevino Angélica Conversion Results [address] [place] [address] Apd Conversion, Flowsheet Provider, Social History Tobacco [...] Sign Reading Time Taken Comments Blood Pressure 130/78 07/27/2015 10:56 AM EDT Sourced from APD Conversion Pulse - - Temperature - - Respiratory Rate - - Oxygen Saturation - - Inhaled Oxygen Concentration - - Weight 121.5 kg (267 lb 13.7 oz) 07/27/2015 10:56 AM EDT Sourced from APD Conversion Height 168 cm (5' 6.14) 07/27/2015 10: 56 AM EDT Sourced from APD Conversion Body Mass Index 43.05 07/27/2015 10:56 AM EDT documented in this encounter Plan of Treatment Not on file documented as of this encounter Visit Diagnoses Not on filedocumented in this encounter Care Teams Coil Rewind Machine Operator Relationship Specialty Start Date End Date Amada Carson MD [address] [place] [address] PCP - General 06/09/18 08/27/18 documented as of this encounter
--- OUTSIDE RECORDS SUMMARY | 2024-01-13 18:59 | XMS_ITS | Encounter Summary ---
Author Organization [facility] Address [facility] [place] [address] Care Team Providers Care Director Medical Surgical Name Role Phone Amada Carson MD Primary Care Provider [phone] [phone] Encounter Details Date Type Department Care Team (Late st Contact Info) Description 08/11/2015 Interpretation Only Radiology [address] [facility] [place] [address] Unknown None Social History Tobacco Use Types [...] Procedure Name Priority Date/Time Associated Diagnosis Comments US PELVIS AND TRANSVAGINAL COMPLETE Routine 08/11/2015 6:09 PM EDT documented in this encounter Results * US PELVIS AND TRANSVAGINAL COMPLETE (08/11/2015 6:09 PM EDT) Anatomical Region Laterality Modality Other 08/11/2015 6:09 PM EDT Narrative 08/11/2015 6:09 PM EDT APD Historical Result Principal Clinical Appeals Specialist: ??NAMRATA ??ESCHBACH PELVIC ULTRASOUND - COMPLETE: INDICATION: ??Heavy painful periods. ??Evaluate for possible candidate for ablation. ??A 29-year-old female. COMPARISON: ??Pelvic ultrasound August 02, 2014. TECHNIQUE: ??Both transabdominal and endovaginal images are obtained. FINDINGS: The uterus is anteverted. ??It measures 7.7 x 3.5 x 4.1 cm. The endometrial stripe measures 4 mm. There is a contour change in the serosa of the lower uterine segment anteriorly. ??This is most frequently seen in the setting of a scar from a section. There is a 1.2 x 0.9 x 1 cm hypoechoic round mass in the fundal portion of the myometrium. ?? This may represent a small leiomyoma. The ovaries are normal in size and morphology. ??They show flow on Doppler exam. ??They contain multiple subcentimeter follicles bilaterally. The right ovary measures 1.7 x 2.4 x 1.6 cm. ??The left ovary equals 2.2 x 2.8 x 1.9 cm. There is no free fluid in the cul-de-sac. IMPRESSION: (1) Endometrial thickness within normal limits for premenopausal female. ??(2) scar noted. ??(3) Small fundal probable leiomyoma. Namrata Frank DO /rr [id number] Procedure Note Unknown - 08/18/2018 APD Historical Result Principal Clinical Appeals Specialist: NAMRATA FRANK PELVIC ULTRASOUND - COMPLETE: INDICATION: Heavy painful periods. Evaluate for possible candidate forablation. A 29-year-old female. COMPARISON: Pelvic ultrasound August 02, 2014. TECHNIQUE: Both transabdominal and endovaginal images are obtained. FINDINGS: The uterus is anteverted. It measures 7.7 x 3.5 x 4.1 cm. The endometrial stripe measures 4 mm. There is a contour change in the serosa of the lower uterine segmentanteriorly. This is most frequently seen in the setting of a scar from a section. There is a 1.2 x 0.9 x 1 cm hypoechoic round mass in the fundal portion ofthe myometrium. This may represent a small leiomyoma. The ovaries are normal in size and morphology. They show flow on Dopplerexam. They contain multiple subcentimeter follicles bilaterally. The right ovary measures 1.7 x 2.4 x 1.6 cm. The left ovary equals 2.2 x2.8 x 1.9 cm. There is no free fluid in the cul-de-sac. IMPRESSION: (1) Endometrial thickness within normal limits forpremenopausal female. (2) scar noted. (3) Small fundal probable leiomyoma. Namrata Frank DO /rr [id number] Unknown PACS IMAGES documented in this encounter Visit Diagnoses Not on filedocumented in this encounter Care Teams Director Medical Surgical Relationship Specialty Start Date End Date Amada Carson MD [address] [place] [address] PCP - General 06/09/18 08/27/18 documented as of this encounter
--- OUTSIDE RECORDS SUMMARY | 2024-01-13 18:59 | XMS_ITS | Encounter Summary ---
Author Organization [facility] Address [facility] [place] [address] Care Team Providers Care Pole Framer Name Role Phone Amada Carson MD Primary Care Provider [phone] Reason for Visit * Reason Comments Anxiety Encounter Details Date Type Department Care Team (Late st Contact Info) Description 06/06/2016 11:41 PM EDT - 06/07/2016 3:19 AM EDT Emergency Emergency Department Formerly [facility] [place] [id number] Kristen Iniguez MD [facility] [place] [address] Fatigue, unspecified type; Panic disorder without agoraphobia; Other chest pain; Persistent disorder of initiating or maintaining sleep Discharge Disposition: Home Social History Tobacco Use [...] Reading Time Taken Comments Blood Pressure 132/78 06/07/2016 12:00 AM EDT Pulse 83 06/06/2016 11:53 PM EDT Temperature - - Respiratory Rate 15 06/06/2016 11:53 PM EDT Oxygen Saturation 98% 06/07/2016 3:00 AM EDT Inhaled Oxygen Concentration - - Weight 120.2 kg (265 lb) 06/06/2016 11:53 PM EDT Height - - Body Mass Index 42.59 09/06/2015 10:43 AM EDT documented in this encounter Discharge Instructions * Discharge Instructions* Kristen Iniguez MD - 06/07/2016 2:49 AM EDT Your lab test looking at your thyroid levels was normal. Please follow up with your regular doctor for further management of your insomnia [facility] Panic Attacks: Care Instructions Your Care Instructions During a panic attack, you may have a feeling of intense fear or terror, trouble breathing, chest pain or tightness, heartbeat changes, dizziness, sweating, and shaking. A panic attack starts suddenly and usually lasts from 5 to 20 minutes but may last even longer. You have the most anxiety about 10 minutes after the attack starts. An attack can begin with a stressful event, or it can happen without a cause. Although panic attacks can cause scary symptoms, you can learn to manage them with self-care, counseling, and medicine. Follow-up care is a kimball part of your treatment and safety. Be sure to make and go to all appointments, and call your doctor if you are having problems. It's also a good idea to know your test resultsand keep a list of the medicines you take. How can you care for yourself at home? ?? Take your medicine exactly as directed. Call your doctor if you think you are having a problem with your medicine. ?? Go to your counseling sessions and follow-up appointments. ?? Recognize and accept your anxiety. Then, when you are in a situation that makes you anxious, sayto yourself, This is not an emergency. I feel uncomfortable, but I am not in danger. I can keep going even if I feel anxious. ?? Be kind to your body: ?? Relieve tension with exercise or a massage. ?? Get enough rest. ?? Avoid alcohol, caffeine, nicotine, and illegal drugs. They can increase your anxiety level, cause sleep problems, or trigger a panic attack. ?? Learn and do relaxation techniques. See below for more about these techniques. ?? Engage your mind. Get out and do something you enjoy. Go to a funny movie, or take a walk or hike. Plan your day. Having too much or too little to do can make you anxious. ?? Keep a record of your symptoms. Discuss your fears with a good friend or family member, or join a support group for people with similar problems. Talking to others sometimes relieves stress. ?? Get involved in social groups, or volunteer to help others. Being alone sometimes makes things seem worse than they are. ?? Get at least 30 minutes of exercise on most days of the week to relieve stress. Walking is a good choice. You also may want to do other activities, such as running, swimming, cycling, or playing tennis or team sports. Relaxation techniques Do relaxation exercises for 10 to 20 minutes a day. You can play soothing, relaxing music while youdo them, if you wish. ?? Tell others in your house that you are going to do your relaxation exercises. Ask them not to disturb you. ?? Find a comfortable place, away from all distractions and noise. ?? Lie down on your back, or sit with your back straight. ?? Focus on your breathing. Make it slow and steady. ?? Breathe in through your nose. Breathe out through either your nose or mouth. ?? Breathe deeply, filling up the area between your navel and your rib cage. Breathe so that your belly goes up and down. ?? Do not hold your breath. ?? Breathe like this for 5 to 10 minutes. Notice the feeling of calmness throughout your whole body. As you continue to breathe slowly and deeply, relax by doing the following for another 5 to 10 minutes: ?? Tighten and relax each muscle group in your body. You can begin at your toes and work your way up to your head. ?? Imagine your muscle groups relaxing and becoming heavy. ?? Empty your mind of all thoughts. ?? Let yourself relax more and more deeply. ?? Become aware of the state of calmness that surrounds you. ?? When your relaxation time is over, you can bring yourself back to alertness by moving your fingers and toes and then your hands and feet and then stretching and moving your entire body. Sometimes people fall asleep during relaxation, but they usually wake up shortly afterward. ?? Always give yourself time to return to full alertness before you drive a car or do anything thatmight cause an accident if you are not fully alert. Never play a relaxation tape while driving a car. When should you call for help? Call 911 anytime you think you may need emergency care. For example, call if: ?? You feel you cannot stop from hurting yourself or someone else. Watch closely for changes in your health, and be sure to contact your doctor if: ?? Your panic attacks get worse. ?? You have new or different anxiety. ?? You are not getting better as expected. Where can you learn more? Visit our health information library at [email or web address] You can also view health information on [employer], your personal patient account. Log in or sign up today. Enter H601 in the search box to learn more about Panic Attacks: Care Instructions. ?? [id number] [employer]. Care instructions adapted under license by [facility]. This care instruction is for use with your licensed healthcare professional. If you have questions about a medical condition or this instruction, always ask your healthcare professional. [employer] disclaims any warranty or liability for your use of this information. Content Version: 11.0.407465; Current as of: January 07, 2015 documented in this encounter Medications at Time of Discharge Medication Sig Dispensed Refills Start Date End Date ACETAMINOPHEN (TYLENOL ORAL) Take 325 mg by mouth as needed. 07/22/2018 documented as of this encounter ED Notes * Kristen Iniguez MD - 06/07/2016 3:19 AM EDT Brief Attending Note I cared for the patient with the resident physician. Please see Dr. Hutton's note, associated with the encounter, for more details. HPI: Kimberli Bales is a 30 y.o. Female with hx recent oral surgery who presents to the ED increasedsocial stressors over the past 2 weeks, new insomnia, waking up tonight from middle asleep after a nightmare with teeth chattering, shaking, and increased respiratory rate. Witnessed by who was awoken when she began to have her symptoms, brought into emergency department because they weren't sure what was going on. Patient currently says she feels like a windup toy.. Never this before. Otherwise healthy. ROS: Pertinent positives and negatives are included in the history of present illness, otherwise 10 systems are reviewed and negative Gen: well appearing, NAD HENT: atraumatic, OP clear, mmm Pulm: CTA ghulam, no respiratory distress Card: RRR Abd: soft, nt Skin: warm and dry Neuro: speech fluent, no obvious deficit MS: No obvious deformity Psych: Anxious mood Assessment: 30-year-old female with history as above. Differential includes thyrotoxicosis, hyperthyroid, endocrine disorder, anxiety, hyperventilation. Less likely is pulmonary embolus. Physical exam is unremarkable. EKG is normal sinus rhythm, rate 75, no ST elevations or depressions, no T-wave inversions, no evidence of ischemia on my read. TSH was sent given the persistent symptoms of anxiety, that is within normal limits. Skin long time with patient discussing management of her symptoms, likely secondary to insomnia and worsening social stressors. To follow up with her PCP later today todiscuss management of her symptoms. Patient discharged home in good condition. Kristen Iniguez MD 06/08/16 0343 * Melo White RN - 06/07/2016 2:03 AM EDT popsickle provided * Melo White RN - 06/07/2016 1:11 AM EDT Pt. C/o feeling jittery, like a wind-up toy. * Tom Hutton MD - 06/07/2016 12:21 AM EDT Chief Complaint: Chief Complaint Patient presents with ??? Anxiety HPI: Kimberli Bales is a 30 y.o. female who presents to the emergency department complaining of panic attack. The patient awoke suddenly from sleep around 1030pm this evening. Her states that she appeared panicked, complaining of pain everywhere. She curled into a ball on the floor and was noted to have teeth chattering. She was able to communicate throughout the episode. An ambulance was called. The patient states that she currently feels some mild central chest pain and extremely fatigued. She is a few days s/p molar removal. She has not been able to tolerate pain medications prescribed. She took some diphenhydramine at 8pm tonight. She has a history of anxiety for which she takes citalopram but has not had an episode like this in the past. ROS: Review of Systems Constitutional: Negative for chills and fever. HENT: Negative for rhinorrhea and sore throat. Eyes: Negative for visual disturbance. Respiratory: Positive for shortness of breath. Cardiovascular: Positive for chest pain. Gastrointestinal: Negative for abdominal pain, diarrhea, nausea and vomiting. Genitourinary: Negative for dysuria. Musculoskeletal: Negative for neck stiffness. Skin: Negative for rash. Allergic/Immunologic: Negative for immunocompromised state. Neurological: Positive for headaches (5 days). Negative for weakness, light- headedness and numbness. Hematological: Does not bruise/bleed easily. Physical Exam: Patient Vitals for the past 8 hrs: BP Pulse Resp SpO2 Weight 06/07/16 0000 132/78 - - 98 % - 06/06/16 2353 133/79 83 15 97 % (!) 120.2 kg (265 lb) Physical Exam Constitutional: She is oriented to person, place, and time. She appears well- developed and well-nourished. No distress. HENT: Head: Normocephalic and atraumatic. Eyes: Conjunctivae are normal. No scleral icterus. No pappiledema Cardiovascular: Normal rate, regular rhythm, normal heart sounds and intact distal pulses. Pulmonary/Chest: Effort normal and breath sounds normal. Abdominal: Soft. Bowel sounds are normal. She exhibits no distension. There is no tenderness. Musculoskeletal: She exhibits no edema. Lymphadenopathy: She has no cervical adenopathy. Neurological: She is alert and oriented to person, place, and time. Skin: Skin is warm and dry. Psychiatric: She has a normal mood and affect. Her behavior is normal. Judgment and thought contentnormal. Imaging: EKG- Normal sinus rhythm Normal ECG Procedures: none MDM: This patient was seen and discussed with Dr. Iniguez. This is a 30 yo f presenting with apparent panic attack. The patient was well appearing at presentation with normal vital signs. The patient's symptoms do not appear to represent seizure or syncope as the patient was able to communicate with her throughout the event. EKG did not show evidence of ischemia. Further testing was not pursued at this time due to the patient's very low cardiovascular risk profile. The patient was discharged home in good condition with instructions for follow up and return precautions. ED Course: - A focused history and physical was gathered - EKG normal - Patient discharged to home in good condition with return precautions and instructions for follow up Tom Hutton MD Resident 06/09/16 0007 Associated attestation - Kristen Iniguez MD - 06/12/2016 1:03 PM EDT ED ATTENDING ATTESTATION NOTE The patient was seen in conjunction with Dr. Hutton, the resident physician. I have independently performed the kimball portions of the history and physical exam. I have reviewed the nursing notes, vitalsigns, and all diagnostic studies personally including labs, imaging studies and EKGs. I have discussed the details of the case with the resident and agree with the assessment and plan as described in the resident note above unless noted otherwise in my separate note. * Melo White RN - 06/07/2016 12:[address] Hutton at bedside * Melo White RN - 06/06/2016 11:58 PM EDT Family/friend at bedside. * Melo White RN - 06/06/2016 11:58 PM EDT Patient is resting comfortably. documented in this encounter Plan of Treatment Not on file documented as of this encounter Procedures Procedure Name Priority Date/Time Associated Diagnosis Comments TSH STAT 06/07/2016 2:00 AM EDT EKG 12-LEAD STAT 06/07/2016 12:29 AM EDT documented in this encounter Results * TSH (06/07/2016 2:00 AM EDT) Thyroid Stimulating Hormone 3.07 0.27 - 4.20 mcIU/mL [facility] Blood specimen (specimen) 06/07/2016 2:00 AM EDT 06/07/2016 2:00 AM EDT Narrative Resulting Agency Comment Spec In Lab Kristen Iniguez MD CHEMISTRY ORDERABLE S Performing Organization Address [facility] Co de Phone Number [facility] [place] [address] * EKG 12 Lead (06/07/2016 12:29 AM EDT) Ventricular rate 75 BPM MUSE SYSTEM Atrial Rate 75 BPM MUSE SYSTEM P-R Interval 134 ms MUSE SYSTEM QRS Duration 86 ms MUSE SYSTEM Q-T Interval 366 ms MUSE SYSTEM QTC Calculated (Bezet) 408 ms MUSE SYSTEM Calculated P [place] 14 degrees MUSE SYSTEM Calculated R [place] 40 degrees MUSE SYSTEM Calculated T [place] 28 degrees MUSE SYSTEM INTERPRETATION Normal sinus rhythm Normal ECG No previous ECGs available Confirmed by MD Laverne, Kristi ([id number]) on 06/07/2016 7:31:51 AM MUSE SYSTEM 06/07/2016 12:2 9 AM EDT 06/07/2016 7:31 AM EDT Kristen Iniguez MD ECG ORDERABLES Performing Organization Address City/[facility] Co de Phone Number MUSE SYSTEM documented in this encounter Visit Diagnoses Diagnosis Fatigue, unspecified type Panic disorder without agoraphobia Other chest pain Persistent disorder of initiating or maintaining sleep documented in this encounter Care Teams Pole Framer Relationship Specialty Start Date [place] [address] PCP - General 11/18/14 06/08/18 documented as of this encounter
--- OUTSIDE RECORDS SUMMARY | 2024-01-13 18:59 | XMS_ITS | Encounter Summary ---
Author Organization [facility] Address [facility] [place] [address] Care Team Providers Care Window Draper Name Role Phone Amada Carson MD Primary Care Provider [phone] Encounter Details Date Type Department Care Team (Late st Contact Info) Description 01/25/2017 Interpretation Only [facility] [address] [place] [address] Martha Barrientos MD [address] [place] [address] Social History Tobacco Use Types Packs/Day Years [...] Comments XR CHEST PA AND LATERAL Routine 01/25/2017 8:39 AM EST documented in this encounter Results * XR Chest PA & Lateral (Generic) (01/25/2017 8:39 AM EST) Anatomical Region Laterality Modality Chest N/A Radiographic Shana ging 01/25/2017 8:39 AM EST Impressions 01/25/2017 9:48 AM EST Findings on chest radiograph are within normal limits. Narrative 01/25/2017 9:48 AM EST EXAMINATION: CHEST PA/LAT (2VWS) -ROUTN CLINICAL HISTORY: COU - COUGH TECHNIQUE: 2 views of the chest. COMPARISON: None FINDINGS: Lungs are clear. No pleural effusion. Size of the heart is within normal limits. Very mild degenerative changes of the spine. Procedure Note Kristin Rodriguez MD - 01/25/2017 EXAMINATION: CHEST PA/LAT (2VWS) -ROUTN CLINICAL HISTORY: COU - COUGH TECHNIQUE: 2 views of the chest. COMPARISON: None FINDINGS: Lungs are clear. No pleural effusion. Size of the heart is within normallimits. Very mild degenerative changes of the spine. IMPRESSION Findings on chest radiograph are within normal limits. Electronically signed by: [facility], at103/28/2016 9:43 AM Martha Barrientos MD IMG DX ORDERABLES documented in this encounter Visit Diagnoses Not on filedocumented in this encounter Care Teams Window Draper Relationship Specialty Start Date End [place] [address] PCP - General 11/18/14 06/08/18 documented as of this encounter
--- OUTSIDE RECORDS SUMMARY | 2024-01-13 18:59 | XMS_ITS | Encounter Summary ---
Author Organization [facility] [place] [address] Care Team Providers Care Him Analyst Name Role Phone Unavailable Primary Care Provider Unavailabl e Encounter Details Date Type Department Care Team (Late st Contact Info) Description 09/09/2012 [place] [address] Joelle Monaco MD [facility] [place] [address] Social History Tobacco Use Types Packs/Day Years [...]
--- OUTSIDE RECORDS SUMMARY | 2024-01-13 18:59 | XMS_ITS | Encounter Summary ---
Author Organization [facility] [place] [address] Care Team Providers Care Medical Records Coordinator Name Role Phone Unavailable Primary Care Provider Unavailabl e Reason for Visit * Reason Comments Strabismus Pre-op discussion Encounter Details Date Type Department Care Team (Late st Contact Info) Description 12/21/2013 11:00 AM EST [place] [address] Genevieve Ragsdale MD [facility] [place] [address] Exotropia (Primary Dx) Discharge Disposition: Home Social History Tobacco Use [...] Progress Notes * Genevieve Ragsdale MD - 12/21/2013 12:51 PM EST Kimberli Bales is a 27 y.o. female with h/o possible pseudotumor cerebri, post- hemorrhage, UTIs, and; 1. Longstanding constant exotropia, small right hypertropia. Stable exam. Prefers slight undercorrection with diplopic responses to full distance correction. Need to slowly increase to correction to avoid symptoms. Strong LE fixation preference, alternates spontaneously. Details of surgery reviewed, including useof GA, adjustable sutures, day of surgery, recovery, and R/B/A discussed with the patient. Plan: Proceed with surgery as planned 12/31. All questions answered. She reports significant h/o infections and is concerned about post op infection. Will treat with pre-op Vigamox and intra-op antibiotics. Stop ASA/NSAIDS for 2 weeks prior to surgery. Surgery order placed. Anticipate BLRc for 40 with adj suture OD. Surgical goal: Ortho to small XT<5. Follow up: 1 week and 3 months post op. GENEVIEVE RAGSDALE MD documented in this encounter Plan of Treatment Not on file documented as of this encounter Procedures Procedure Name Priority Date/Time Associated Diagnosis Comments SENSORIMOTOR EXAM Routine 12/21/2013 12: 57 PM EST Exotropia documented in this encounter Results * SENSORIMOTOR EXAM [MI SPECIAL EYE EXAM] - OU- BOTH EYES (12/21/2013 12:57 PM EST) Anatomical Region Laterality Modality Other Narrative 12/21/2013 12:57 PM EST Large angle constant exotropia with LE fixation preference. Small right hypertropia. Procedure Note Genevieve Ragsdale MD - 12/21/2013 Large angle constant exotropia with LE fixation preference. Small righthypertropia. Genevieve Ragsdale MD OPHTHALMOLOGY SERVIC ES ORDERABLES documented in this encounter Visit Diagnoses Diagnosis Exotropia- Primary Exotropia, unspecified documented in this encounter
--- OUTSIDE RECORDS SUMMARY | 2024-01-13 18:59 | XMS_ITS | Encounter Summary ---
Author Organization [facility] [place] [address] Care Team Providers Care Sharebroker Name Role Phone Unavailable Primary Care Provider Unavailabl e Encounter Details Date Type Department Care Team (Late st Contact Info) Description 02/01/2014 7:30 AM EST - 02/01/2014 8:45 AM EST Surgery [place] [place] [address] Genevieve Ragsdale MD [facility] [place] [address] STRABISMUS SURGERY WITH SCARRING OF EXTRAOCULAR MUSCLES IN CONJUNCTION W/ ANOTHER SURGERY (WRVU 3.5) Social History Tobacco Use Types Packs/Day Years [...] Sign Reading Time Taken Comments Blood Pressure 128/73 02/01/2014 6:56 AM EST Pulse 76 02/01/2014 6:56 AM EST Temperature 36.7 ??C (98.1 ??F) 02/01/2014 6:56 AM ES T Respiratory Rate 18 02/01/2014 6:56 AM EST Oxygen Saturation 98% 02/01/2014 6:56 AM EST Inhaled Oxygen Concentration - - Weight 95.3 kg (210 lb) 02/01/2014 6:56 AM EST Height 167.6 cm (5' 6) 02/01/2014 6:56 AM EST Body Mass Index 33.89 02/01/2014 6:56 AM EST documented in this encounter Discharge Instructions * Discharge Instructions* Sue Montesinos RN - 02/01/2014 9:21 AM EST General Anesthesia Discharge Instructions Go home and rest. You may be sleepy for several hours. Take it easy as sudden position changes may cause nausea and/or dizziness. Use caution on stairs. Do not smoke if you are alone. Follow a light to regular diet as tolerated today. If nausea occurs, start with clear liquids, and progress slowly to a regular diet. Do not drive, operate machinery, drink alcoholic beverages or make any legal decisions after havinggeneral anesthesia. The medications given change your reaction time and alter your judgement. IV site -- slight redness is normal, you can use warm compresses. If tenderness and redness increases or foul drainage occurs, please contact your M.D. Patients who have had endotracheal tubes/LMA (tubes used by the anesthesia staff to ensure a safe airway during your operation) may have a sore throat. This is normal and cold liquids or soothing lozengers will help ease this discomfort. Narcotic pain medications can cause constipation, please ask the surgeons office what they recommend for prevention of this. Some non-pharmaceutical means of constipation prevention include increasing intake of fluids, eating more fruits and vegetables as well as fruit juices. If you are uncomfortable and/or unable to urinate within 8 hours of discharge and it is before 5 pm, call your physician. If it is after 5pm go to the closest emergency room or call the hospital copy center operator at [phone] and ask for physician conservation educator covering for your physician. Questions or problems after 5pm or on a weekend: Call the [place] copy center operator at and ask for the physician conservation educator covering for your doctor. * Patient Instructions* Genevieve Ragsdale MD - 02/01/2014 8:49 AM EST Tobradex drops or ointment to right eye three times daily for 5 days. Ice packs (frozen peas) to right eye as needed for swelling or discomfort. Tylenol or ibuprofen as needed for pain ([id number]). [place] tinged or bloody tears is normal. Crusting of the eyelids can be gently cleaned with a warm wet cloth. Call [phone] with any questions or concerns. documented in this encounter Medications at Time of Discharge Medication Sig Dispensed Refills Start Date End Date tobramycin-dexamethasone (TOBRADEX) Drops, Suspension Apply 1 drop to eye 3 times daily for 5 days. Patient to begin when they arrive home. Can use either drops or ointment. 5 mL 0 02/01/2014 02/06/2014 tobramycin-dexamethasone (TOBRADEX) Ointment Apply to eye 3 times daily. Apply to eye. Patient to begin when they arrive home. Can use either drops or ointment.. 3.5 g 0 02/01/2014 04/19/2014 OXYcodone 5 mg Capsule Take 5 mg by mouth every 4 hours as needed for Pain. 04/19/2014 ACETAMINOPHEN (TYLENOL ORAL) Take 325 mg by mouth as needed. 07/22/2018 documented as of this encounter H&P Notes * Genevieve Ragsdale MD - 02/01/2014 7:27 AM EST There are no changes from original history and physical performed. Source Note - Genevieve Ragsdale MD - 02/01/2014 7:21 AM EST Complete Adult Pre-Procedural H&P Patient Name: Kimberli Bales : [id number] 28 y.o. MR#: [id number] Chief Complaint: here for repeat eye muscle surgery, pre-op H and P Planned Procedure: Repeat strabismus surgery right eye. History of Present Illness: HPI Comments: S/p Bilateral lateral rectus recessions last month for exotropia. Had sudden pain right eye and recurrence of XT 3 weeks post op. Exam showed inflammation at adjustable suture site right eye and recurrence of exotropia with full motility. There was thickness around the right lateral rectus and concern for the muscle having migrated anteriorly and the decision was made to return for further surgery to explore the RLR with re-recession or RMR resection. She is healthy, no changes to her medical history since her last H and P, no recent colds, fevers, coughs. I have reviewed and updated as necessary the Medical, Surgical, Family, and Social History capturedwithin the EMR. I have reviewed and updated as necessary the patient's allergies and current medication list withinthe EMR. Review of Systems: Review of Systems Eyes: Positive for photophobia, pain, redness and visual disturbance. Physical Exam: Filed Vitals: 02/01/14 0656 BP: 128/73 Pulse: 76 Temp: 36.7 ??C (98.1 ??F) TempSrc: Temporal Resp: 18 Height: 167.6 cm (5' 6) Weight: 95.255 kg (210 lb) SpO2: 98% Physical Exam Constitutional: She is oriented to person, place, and time. She appears well- developed and well-nourished. HENT: Head: Normocephalic. Eyes: Pupils are equal, round, and reactive to light. Injection over right lateral rectus Neck: Normal range of motion. Cardiovascular: Normal rate, regular rhythm, normal heart sounds and intact distal pulses. Pulmonary/Chest: Effort normal and breath sounds normal. Abdominal: Soft. Musculoskeletal: Normal range of motion. Neurological: She is alert and oriented to person, place, and time. Skin: Skin is warm and dry. Psychiatric: She has a normal mood and affect. Her behavior is normal. Thought content normal. Assessment and Plan: Healthy 28 year old woman with recurrent exotropia post operatively. Ok to proceed with surgery today. GENEVIEVE RAGSDALE MD 02/01/2014 * Genevieve Ragsdale MD - 02/01/2014 7:21 AM EST Complete Adult Pre-Procedural H&P Patient Name: Kimberli Bales : [id number] 28 y.o. MR#: [id number] Chief Complaint: here for repeat eye muscle surgery, pre-op H and P Planned Procedure: Repeat strabismus surgery right eye. History of Present Illness: HPI Comments: S/p Bilateral lateral rectus recessions last month for exotropia. Had sudden pain right eye and recurrence of XT 3 weeks post op. Exam showed inflammation at adjustable suture site right eye and recurrence of exotropia with full motility. There was thickness around the right lateral rectus and concern for the muscle having migrated anteriorly and the decision was made to return for further surgery to explore the RLR with re-recession or RMR resection. She is healthy, no changes to her medical history since her last H and P, no recent colds, fevers, coughs. I have reviewed and updated as necessary the Medical, Surgical, Family, and Social History capturedwithin the EMR. I have reviewed and updated as necessary the patient's allergies and current medication list withinthe EMR. Review of Systems: Review of Systems Eyes: Positive for photophobia, pain, redness and visual disturbance. Physical Exam: Filed Vitals: 02/01/14 0656 BP: 128/73 Pulse: 76 Temp: 36.7 ??C (98.1 ??F) TempSrc: Temporal Resp: 18 Height: 167.6 cm (5' 6) Weight: 95.255 kg (210 lb) SpO2: 98% Physical Exam Constitutional: She is oriented to person, place, and time. She appears well- developed and well-nourished. HENT: Head: Normocephalic. Eyes: Pupils are equal, round, and reactive to light. Injection over right lateral rectus Neck: Normal range of motion. Cardiovascular: Normal rate, regular rhythm, normal heart sounds and intact distal pulses. Pulmonary/Chest: Effort normal and breath sounds normal. Abdominal: Soft. Musculoskeletal: Normal range of motion. Neurological: She is alert and oriented to person, place, and time. Skin: Skin is warm and dry. Psychiatric: She has a normal mood and affect. Her behavior is normal. Thought content normal. Assessment and Plan: Healthy 28 year old woman with recurrent exotropia post operatively. Ok to proceed with surgery today. GENEVIEVE RAGSDALE MD 02/01/2014 documented in this encounter Miscellaneous Notes * Op Note - Genevieve Ragsdale MD - 02/01/2014 10:14 PM EST [facility] [place] Patient Name: Kimberli Bales : [id number] MR#: [id number] Case Date: 02/01/2014 Surgeon: Surgeon(s) and Role: * Genevieve Ragsdale MD - Primary Preoperative diagnosis: recurrent exotropia, possible slipped muscle Postoperative diagnosis: recurrent exotropia, extensive scar Procedure(s): Right lateral rectus exploration with excision of scar tissue and re-recession to 9mm posterior to original muscle insertion. Right medial rectus resection 5.0mm Anesthesia: General Estimated Blood Loss: <3cc Specimens removed during surgery: None Drains: none Surgical Closure: Primary Closure - closure of ALL tissue levels during the original surgery regardless of wires, wickes, drains, or other devices extruding through the incision Disposition: awakened from anesthesia, extubated and taken to the recovery room in a stable condition, having suffered no apparent untoward event. Condition: doing well without problems (Please see the Surgical Encounter Summary for any Implant and Specimen details pertinent to this patient.) HPI/Surgical Indications: Kimberli is a 28 year old woman with a longstanding history of exotropia, who underwent bilateral lateral rectus recessions 01/03/14, with a sudden recurrence of exotropia 3 weeks post operatively. There was inflammation over the lateral rectus and possible anterior migration of the lateral rectus and therefore, it was offered to return to the operating room for exploration and further recession of the lateral rectus and possible resection of the right medial rectus to address the recurrent exotropia. Risks, benefits and alternatives were discussed and informed consent was obtained. Procedure Description: The patient was met in the preoperative holding area and accompanied to the operating room. she was placed under general anesthesia by the anesthesia department. The right eye was prepped and draped in the usual sterile ophthalmic fashion. One drop of 2.5% phenylephrine was placed in each eye. A time out was performed. My attention was first turned to the right lateral rectus. 0.5 locking forceps were placed at the inferotemporal limbus and the eye was adducted. A conjunctival and tenons incision was made in the inferotemporal fornix with blunt Viktor scissors and blunt dissection carried into the inferotemporal quadrant. A significant amount of scar tissue was encountered and the conjunctiva was firmed adhered to the globe and prior suture at the original muscle insertion site. Extensive dissection was carried out to free conjunctiva. The lateral rectus was carefully isolated on a small hook posteriorly, followed by a large hook followed by the [place] hook. The conjunctiva was eventually reflected into the ball of the muscle hook and tenons buttonholed over the ball of the hook. There was a fibrous band from the new muscle insertion site at 9mm posterior to the original muscle insertion along the path of 6-0 vicryl hangback suture and this was carefully dissected off the globe. A combination of sharp and blunt dissection was carried out anterior and posterior to the muscle insertion site to clear excess tenons and intramuscular Septa. The muscle was secured with a 6-0 Vicryl double-armed coated suture on an S29 needle with a full-thickness central locking bite followed by imbricating whip lock passes through either pole of the muscle. The muscle was disinserted from the globe with Aebli scissors and cleaned of fibrous scar. 0.5 locking forceps were placed at either pole of the original muscle insertion site. 9.0 mm was measured posterior to the muscle insertion site and marked with a marking pen. The muscle was reattached to the globe with partial-thickness scleral passes in a cross swords configuration to the original muscle insertion site at this location. A 9.0 mm recession was confirmed with calibrated calipers. A drop of betadine was placed in the surgical wound. Conjunctiva was reapproximated with a single 8-0 Vicryl Suture. 2% lidocaine plain was instilled on a 27 gauge canula subconjunctivally. My attention was then turned to the medial rectus and the eye was abducted with 0.5 locking forceps placed at the inferonasal limbus. A conjunctival and tenons incision was made at the inferonasal fornix with blunt Viktor scissors with blunt dissection carried into the inferonasal quadrant. The medial rectus was isolated on a small hook followed by a large hook followed by the [place] hook. Conjunctiva was reflected over the ball of the muscle hook and tenon buttonholed over the ball of the hook with blunt Viktor scissors. A superior pole test was performed confirming the entire muscle being captured. A combination of blunt and sharp dissection was carried out anterior and posterior to the muscle insertion site to clear excess tenons and intramuscular septa. The central aspect of the muscle insertion site was marked with a marking pen. A second large hook was placed under the muscle and brought posteriorly. 5.0 mm was measured on the muscle and marked with a marking pen. 6-0 Vicryl double-armed coated suture on an S29 needle was utilized to create a central full-thickness locking bite with imbricating whip locked passes through either pole of the muscle at this location. A straight hemostat was placed just anterior to the suture and released. The muscle was cut at this location with blunt Viktor scissors to create a 5.0 mm resection. The muscle stump was then grasped with von Graefe forceps and removed from the globe with Aebli scissors. 0.5 locking forceps were placed at either pole of the muscle insertion site. The muscle was brought all the way up to the muscle insertion site and reaffixed to the globe with partial-thickness scleral passes in a cross swords configuration at the central aspect of the original muscle insertion site. This was secured with a surgeon's knot. A drop of betadine was placed in the surgical wound. Conjunctiva was reapproximated with a single 8-0 Vicryl Suture. 2% lidocaine plain was instilled on a 27 gauge canula subconjunctivally. Drapes were removed and the patient's face was washed. TobraDex ointment was placed in the operative eye. The patient was extubated under the guidance of the anesthesia department after tolerating the procedure well and was transferred to the PACU in stable condition. I performed the entire procedure myself. I attest to the fact that I performed the surgery entirely. No residents assisted or performed the surgery. * Brief Op Note - Genevieve Ragsdale MD - 02/01/2014 8:49 AM EST Brief Operative Note Patient Name: Kimberli Bales : [id number] MR#: [id number] Case Date: 02/01/2014 Surgeon: Surgeon(s) and Role: * Genevieve Ragsdale MD - Primary Preoperative diagnosis: recurrent exotropia, slipped muscle Postoperative diagnosis: recurrent exotropia, slipped muscle Procedure(s): STRABISMUS SURGERY WITH SCARRING OF EXTRAOCULAR MUSCLES IN CONJUNCTION W/ ANOTHER SURGERY STRABISMUS SURGERY, TWO HORIZONTAL MUSCLES Anesthesia: General Findings: scarring of rectus lateral rectus Complications: none Fluids: LR 400cc Estimated Blood Loss: <3cc Drains: none Disposition: awakened from anesthesia, extubated and taken to the recovery room in a stable condition, having suffered no apparent untoward event. Condition: doing well without problems (Please see the Surgical Encounter Summary for any Implant and Specimen details pertinent to this patient.) documented in this encounter Plan of Treatment Not on file documented as of this encounter Procedures Procedure Name Priority Date/Time Associated Diagnosis Comments STRABISMUS SURGERY, TWO HORIZONTAL MUSCLES Routine 02/01/2014 8:45 AM EST Exotropia STRABISMUS SURGERY, TWO HORIZONTAL MUSCLES (WRVU 9.5) Yes 02/01/2014 7:31 AM EST Exotropia STRABISMUS SURGERY WITH SCARRING OF EXTRAOCULAR MUSCLES IN CONJUNCTION W/ ANOTHER SURGERY (WRVU 3.5) Yes 02/01/2014 7:31 AM EST Exotropia documented in this encounter Visit Diagnoses Diagnosis Exotropia Exotropia, unspecified Exotropia Exotropia, unspecified documented in this encounter Administered Medications Inactive Administered Medications - up to 3 most recent administrations Medication Order MAR Action Action Date Dose Rate Site bacitracin-polymyxin b (POLYSPORIN) ophthalmic ointment ONCE PRN, Starting on Sat02/01/14 at 0807, Until Sat02/01/14 at 1314, Intra-Operative (Intra-Procedure) Given 02/01/2014 8:07 AM EST 1 Tube balanced salt (BSS) irrigation solution ONCE PRN, Starting on Sat02/01/14 at 0806, Until Sat02/01/14 at 1314, Intra-Operative (Intra-Procedure), Routine Given 02/01/2014 8:06 AM EST 1 Bottle fentaNYL (PF) 50 mcg/mL 2mL syringe 25 mcg, Intravenous, EVERY 5 MIN PRN, Pain, for breakthrough pain, Starting on Sat02/01/14 at 0859, Until Sat02/01/14 at 1314, Hold for respiratory rate less than 10 per minute. Maximum dose: 250 mcg over one hour., PACU Recovery Given 02/01/2014 9:16 AM EST 25 mcg Given 02/01/2014 9:10 AM EST 25 mcg hydroxypropyl methylcellulose (GONAK) 2.5 % ophthalmic solution ONCE PRN, Starting on Sat02/01/14 at 0806, Until Sat02/01/14 at 1314, Intra-Operative (Intra-Procedure) Given 02/01/2014 8:06 AM EST 4 drops Lidocaine (PF) (XYLOCAINE) 20 mg/mL (2 %) injection ONCE PRN, Starting on Sat02/01/14 at 0846, Until Sat02/01/14 at 1314, Intra-Operative (Intra-Procedure), Routine Given 02/01/2014 8:46 AM EST 30 mg PHENYLephrine (MYDFRIN) 2.5 % ophthalmic solution ONCE PRN, Starting on Sat02/01/14 at 0805, Until Sat02/01/14 at 1314, Intra-Operative (Intra-Procedure), Routine Given 02/01/2014 8:05 AM EST 1 drop proparacaine (ALCAINE) 0.5 % ophthalmic solution ONCE PRN, Starting on Sat02/01/14 at 0805, Until Sat02/01/14 at 1314, Intra-Operative (Intra-Procedure), Routine Given 02/01/2014 8:05 AM EST 2 drops tobramycin-dexamethasone (TOBRADEX) ophthalmic ointment ONCE PRN, Starting on Sat02/01/14 at 0855, Until Sat02/01/14 at 1314, Intra-Operative (Intra-Procedure) Given 02/01/2014 8:55 AM EST 1 Tube tobramycin-dexamethasone (TOBRADEX) ophthalmic solution ONCE PRN, Starting on Sat02/01/14 at 0855, Until Sat02/01/14 at 1314, Intra-Operative (Intra-Procedure), Routine Given 02/01/2014 8:55 AM EST 1 drop documented in this encounter Active and Recently Administered Medications Times are shown in EST. PRN Medication Order 01/30/2014 01/31/2014 02/01/2014 bacitracin-polymyxin b (POLYSPORIN) ophthalmic ointment (CANCELED) ONCE PRN, Starting on Sat02/01/14 at 0807, Until Sat02/01/14 at 1314, Intra-Operative (Intra-Procedure) 08 (Given - Provid er: Genevieve Ragsdale MD - Comment: on field) balanced salt (BSS) irrigation solution (CANCELED) ONCE PRN, Starting on Sat02/01/14 at 0806, Until Sat02/01/14 at 1314, Intra-Operative (Intra-Procedure), Routine 805 (Given - Provid er: Genevieve Ragsdale MD) fentaNYL (PF) 50 mcg/mL 2mL syringe (CANCELED) 25 mcg, Intravenous, EVERY 5 MIN PRN, Pain, for breakthrough pain, Starting on Sat02/01/14 at 0859, Until Sat02/01/14 at 1314, Hold for respiratory rate less than 10 per minute. Maximum dose: 250 mcg over one hour., PACU Recovery 909 (Given - Provid er: Sue Montesinos RN)915 (Given - Provider: Sue Montesinos RN) hydroxypropyl methylcellulose (GONAK) 2.5 % ophthalmic solution (CANCELED) ONCE PRN, Starting on Sat02/01/14 at 0806, Until Sat02/01/14 at 1314, Intra-Operative (Intra-Procedure) 805 (Given - Provid er: Genevieve Ragsdale MD) Lidocaine (PF) (XYLOCAINE) 20 mg/mL (2 %) injection (CANCELED) ONCE PRN, Starting on Sat02/01/14 at 0846, Until Sat02/01/14 at 1314, Intra-Operative (Intra-Procedure), Routine 845 (Given - Provid er: Genevieve Ragsdale MD - Comment: 1.5 ml) PHENYLephrine (MYDFRIN) 2.5 % ophthalmic solution (CANCELED) ONCE PRN, Starting on Sat02/01/14 at 0805, Until Sat02/01/14 at 1314, Intra-Operative (Intra-Procedure), Routine 804 (Given - Provid er: Genevieve Ragsdale MD) proparacaine (ALCAINE) 0.5 % ophthalmic solution (CANCELED) ONCE PRN, Starting on Sat02/01/14 at 0805, Until Sat02/01/14 at 1314, Intra-Operative (Intra-Procedure), Routine 804 (Given - Provid er: Genevieve Ragsdale MD) tobramycin-dexamethasone (TOBRADEX) ophthalmic ointment (CANCELED) ONCE PRN, Starting on Sat02/01/14 at 0855, Until Sat02/01/14 at 1314, Intra-Operative (Intra-Procedure) 0855 (Given - Provid er: Genevieve Ragsdale MD) tobramycin-dexamethasone (TOBRADEX) ophthalmic solution (CANCELED) ONCE PRN, Starting on Sat02/01/14 at 0855, Until Sat02/01/14 at 1314, Intra-Operative (Intra-Procedure), Routine 0855 (Given - Provid er: Genevieve Ragsdale MD - Comment: 1 bottle sent with patient) documented in this encounter
--- OUTSIDE RECORDS SUMMARY | 2024-01-13 18:59 | XMS_ITS | Encounter Summary ---
Author Organization [facility] [place] [address] Care Team Providers Care Wafer Fab Operator Name Role Phone Unavailable Primary Care Provider Unavailnelson e Encounter Details Date Type Department Care Team (Late st Contact Info) Description 02/01/2014 7:31 AM EST Anesthesia Event [place] [address] Monse Samson [facility] [place] [place] [address] Melva Lugo [facility] [place] [address] Anesthesia Record Procedure Summary Procedure Name Responsible Anesthesiologist Anesthesia Start Time Anesthesia Stop Time STRABISMUS SURGERY WITH SCARRING OF EXTRAOCULAR MUSCLES IN CONJUNCTION W/ ANOTHER SURGERY (WRVU 3.5) (Right: Eye) Monse Samson DO 02/01/14 0731 02/01/14 0859 Events Date Time Event Comment 02/01/2014 0721 0731 Start 0733 AN Verify 0733 An Start Data 0735 An Induction 0737 An Intubation 0739 Anesthesia Ready 0747 Procedure Start Timeout done . 0850 Extubation/LMA Out 0853 an stop data 0859 Stop Meds Name Total Midazolam 2 mg fentaNYL 100 mcg IV Lidocaine 40 mg Propofol 280 mg Ondansetron 8 mg Dexamethasone 4 mg ceFAZolin 2 g Propofol INF 717.13 mg Ketorolac 30 mg Lactated Ringers 800 mL * Agents Name O2 Air N2O Sevoflurane (et) * Blood No blood administrations on file. Lines, Drains, and Airways Type Details Placement Removal Incision eye; LDA not present upon assessment; 10/17/19; 165712/31/13 0802 by 10/17/19 1658 by Em Lemos RN Incision eye; LDA not present upon assessment; 10/17/19; 165712/31/13 0823 by 10/17/19 1658 by Em Lemos RN Incision 02/01/14; eye; LDA n ot present upon assessment; 10/17/19; 165702/01/14 0000 by Alondra Gandhi RN 10/17/19 165 by Em Lemos RN (RETIRED) Peripheral IV Line - Single Lumen 02/01/14; 0709; metacarpal vein left (top of hand); ckvu-lrv-nllurg catheter system; 20 gauge; intradermal injection; no longer indicated, removed per policy/procedure; 02/01/14; 0940 02/01/14 0709 by Janet Beal RN 02/01/14 0940 by Sue Montesinos RN Supraglottic Mask Ventilation: No t Attempted (0); LMA Type: Unique; LMA Size: 4; Inserted by: Brittney ESTRADA; Removal Date: 02/01/14; Removal Time: 0850 02/01/14 0737 by Melva Lugo CRNA 02/01/14 0850 by Melva Lugo CRNA documented in this encounter Social History Tobacco [...] OR Notes * Anesthesia Postprocedure Evaluation - Monse Samson DO - 02/01/2014 10:31 AM EST Patient: Kimberli Bales Procedure(s) Performed: Procedure(s): STRABISMUS SURGERY WITH SCARRING OF EXTRAOCULAR MUSCLES IN CONJUNCTION W/ ANOTHER SURGERY STRABISMUS SURGERY, TWO HORIZONTAL MUSCLES Actual Anesthetic: general Patient location: PACU Post-op pain: Adequate analgesia Post-op nausea: no nausea or vomiting Last Vitals: Filed Vitals: 02/01/14 0910 BP: 126/75 Pulse: Temp: Resp: 16 Post-op cardiovascular and respiratory status: is stable Level of consciousness: awake, alert and oriented Complications: no apparent complications and tolerated the procedure well Fluid Status: normal * Anesthesia Preprocedure Evaluation - Monse Samson DO - 02/01/2014 7:20 AM EST Pre-Anesthesia Evaluation for: Kimberli Bales a 28 y.o. female. Procedure(s): STRABISMUS SURGERY, ONE HORIZONTAL MUSCLE, JEFF STRABISMUS SURGERY, PLACEMENT OF ADJUSTABLE SUTURES IN CONJUNCTION W/ ANOTHER SURGERY Patient Active Problem List Diagnosis ??? Exotropia Long-standing, s/p strabismus surgery XT OD but can alternate, no diplopia ??? Headache ??? Post-op bleeding Following ??? CIS - BMI 45.51 ??? CIS - Entered not Verified ??? CIS - history of UTI's patient reported ??? CIS - Dysplasia of cervix ??? CIS - Urinary symptom change episodes of dysuria and frequency but all negative cultures. If sx develop check Micro, TERMINAL CARMAN or stone. Past Medical History Diagnosis Date ??? Pseudotumor cerebri ??? Strabismus ??? Allergic state Past Surgical History Procedure Laterality Date ??? Stabismus surg,one horiz muscle Bilateral 12/31/2013 STRABISMUS SURGERY, ONE HORIZONTAL MUSCLE, JEFF performed by Genevieve Walsh MD at [facility] ??? Strabismus surg,place adjust suture Right 12/31/2013 STRABISMUS SURGERY, PLACEMENT OF ADJUSTABLE SUTURES IN CONJUNCTION W/ ANOTHER SURGERY performed by Genevieve Walsh MD at [facility] History Substance Use Topics ??? Smoking status: Current Some Day Smoker -- 0.25 packs/day for 2 years Types: Cigarettes Last Attempt to Quit: 06/17/2009 ??? Smokeless tobacco: Never Used ??? Alcohol Use: Yes Comment: socially History Drug Use No Allergies Allergen Reactions ??? Red Dye Stops heart ??? Percocet [Oxycodone-Acetaminophen] Difficulty breathing Medications: MAR and/or home medications have been reviewed. Physical Exam: Filed Vitals: 02/01/14 0656 BP: 128/73 Pulse: 76 Temp: 36.7 ??C (98.1 ??F) Resp: 18 Body mass index is 33.91 kg/(m^2). Height: 167.6 cm (5' 6) Weight - Scale: 95.255 kg (210 lb) Airway Assessment: Mallampati: II TM distance: >3 FB Neck ROM: full Cardiovascular Assessment: cardiovascular exam normal Pulmonary Assessment: pulmonary exam normal Dental Assessment: - normal exam Misc Assessment: Patient is wearing No contact(s). IV access: Peripheral line Anesthesia Plan: ASA 2 general, with a(n) intravenous induction Previous LMA #4 w/o difficulty. No hx of difficulty w anesthesia. No hx of motion sickness. Plan GA/EMILIA/VA maint/P op PACU care and IV pain control IC for anesthesia obtained Region - Other Informed Consent: Anesthetic plan and risks discussed with patient. Use of blood products discussed with whom consented to blood products. Plan discussed with MEAT INSPECTOR. Misc. Assessment: documented in this encounter Plan of Treatment Not on file documented as of this encounter Visit Diagnoses Not on filedocumented in this encounter Administered Medications Inactive Administered Medications - up to 3 most recent administrations Medication Order MAR Action Action Date Dose Rate Site ceFAZolin (ANCEF) 1g in dextrose 5% 50mL PRN, Starting on Sat02/01/14 at 0745, Until Sat02/01/14 at 0859, Administer over 30 Minutes, Anesthesia Intra-op Given 02/01/2014 7:45 AM EST 2 g dexamethasone (DECADRON) injection PRN, Starting on Sat02/01/14 at 0746, Until Sat02/01/14 at 0859, Anesthesia Intra-op, Routine Given 02/01/2014 7:46 AM EST 4 mg fentaNYL 50mcg/mL injection PRN, Starting on Sat02/01/14 at 0732, Until Sat02/01/14 at 0859, Pain, Anesthesia Intra-op, Routine Given 02/01/2014 7:58 AM EST 25 mcg Given 02/01/2014 7:46 AM EST 25 mcg Given 02/01/2014 7:34 AM EST 25 mcg ketorolac (TORADOL) injection PRN, Starting on Sat02/01/14 at 0849, Until Sat02/01/14 at 0859, Pain, Anesthesia Intra-op, Routine Given 02/01/2014 8:49 AM EST 30 mg lactated ringers infusion CONTINUOUS PRN, Starting on Sat02/01/14 at 0705, Until Sat02/01/14 at 0859, Anesthesia Intra-op New Bag 02/01/2014 7:05 AM EST lidocaine (PF) (XYLOCAINE) 100 mg/5 mL (2 %) injection PRN, Starting on Sat02/01/14 at 0735, Until Sat02/01/14 at 0859, Anesthesia Intra-op, Routine Given 02/01/2014 7:35 AM EST 40 mg midazolam (PF) (VERSED) 1 mg/mL injection PRN, Starting on Sat02/01/14 at 0731, Until Sat02/01/14 at 0859, Sleep, Anesthesia Intra-op, Routine Given 02/01/2014 7:31 AM EST 2 mg ondansetron (ZOFRAN) injection PRN, Starting on Sat02/01/14 at 0849, Until Sat02/01/14 at 0859, Nausea, Anesthesia Intra-op, Routine Given 02/01/2014 8:49 AM EST 8 mg propofol (DIPRIVAN) 10 mg/mL bolus injection (Anesthesia) PRN, Starting on Sat02/01/14 at 0735, Until Sat02/01/14 at 0859, Anesthesia Intra-op Given 02/01/2014 7:46 AM EST 30 mg Given 02/01/2014 7:35 AM EST 250 mg propofol (DIPRIVAN) infusion CONTINUOUS PRN, Starting on Sat02/01/14 at 0745, Until Sat02/01/14 at 0859, Anesthesia Intra-op, Routine Rate/Dose Change 02/01/2014 8:45 AM EST 150 mcg/kg/min 85.8 mL/hr Rate/Dose Change 02/01/2014 8:16 AM EST 75 mcg/kg/min 42.9 mL/hr Rate/Dose Change 02/01/2014 8:10 AM EST 125 mcg/kg/min 71. 5 mL/hr documented in this encounter
--- OUTSIDE RECORDS SUMMARY | 2024-01-13 18:59 | XMS_ITS | Encounter Summary ---
Author Organization [facility] [place] [address] Care Team Providers Care Director Of Residence Life Name Role Phone Amada Carson MD Primary Care Provider [phone] Encounter Details Date Type Department Care Team (Late st Contact Info) Description 09/06/2015 Abstract Nancy Javed Conversion Results [address] [place] [address] Apd Conversion, Flowsheet Provider, Social History Tobacco [...] Sign Reading Time Taken Comments Blood Pressure 122/86 09/06/2015 10:43 AM EDT Sourced from [facility] Conversion Pulse - - Temperature - - Respiratory Rate - - Oxygen Saturation - - Inhaled Oxygen Concentration - - Weight 126 kg (277 lb 12.5 oz) 09/06/2015 10:43 AM EDT Sourced from [facility] Conversion Height 168 cm (5' 6.14) 09/06/2015 10: 43 AM EDT Sourced from [facility] Conversion Body Mass Index 44.64 09/06/2015 10:43 AM EDT documented in this encounter Plan of Treatment Not on file documented as of this encounter Visit Diagnoses Not on filedocumented in this encounter Care Teams Director Of Residence Life Relationship Specialty Start Date End Date Amada Carson MD [address] [place] [address] PCP - General 06/09/18 08/27/18 documented as of this encounter
--- OUTSIDE RECORDS SUMMARY | 2024-01-13 18:59 | XMS_ITS | Encounter Summary ---
Author Organization [facility] Address [facility] [place] [address] Care Team Providers Care Electronic Engraver Name Role Phone Unavailable Primary Care Provider Unavailabl e Reason for Visit * Reason Comments Strabismus 2.5-mon f/u; s/p Str ab-ou Encounter Details Date Type Department Care Team (Late st Contact Info) Description 04/19/2014 1:30 PM EST Office [place] [address] Genevieve Ragsdale MD [facility] [place] [address] Exotropia Discharge Disposition: Home Social History Tobacco [...] Progress Notes * Genevieve Ragsdale MD - 04/19/2014 3:23 PM EST Kimberli Bales is a 28 y.o. female with: 1. Residual small angle exotropia, s/p BLRc 12/31/13; then RLR re-recession and dissection of scar tissue due to robust suture reaction for a net 9.0mm recession total OD; 8.0mm recession OS; and RMRx 5.0mm 02/01/14. Minimal symptoms with brief diplopia in side gaze to right. Nice appearance. No further surgery indicated at this time. I am happy to see Kimberli back with any further ocular alignment concerns. No scheduled f/u necessary. GENEVIEVE RAGSDALE MD documented in this encounter Plan of Treatment Not on file documented as of this encounter Visit Diagnoses Diagnosis Exotropia Exotropia, unspecified documented in this encounter
--- OUTSIDE RECORDS SUMMARY | 2024-01-13 18:59 | XMS_ITS | Encounter Summary ---
Author Organization [facility] [place] [address] Care Team Providers Care Public Safety Dispatcher Name Role Phone Unavailable Primary Care Provider Unavailabl e Reason for Visit * Reason Onset Date Comments Questions 01/26/2014 Encounter Details Date Type Department Care Team (Late st Contact Info) Description 01/26/2014 [place]phone [place] [address] Genevieve Walsh MD [facility] [place] [address] Questions Social History Tobacco Use Types Packs/Day Years [...] encounter Miscellaneous Notes * Telephone Encounter - Nilsa Oquendo, COT - 01/26/2014 4:06 PM EST Patient called back. When I asked patient to describe her pain; she reports she is alternating tylenol and advil every 6 hours and at the 6 hr isaiah she is in pain. Pain is in head similar to a headache. Asked about photophobia that she reported at 01/22/14 appt; patient states she does not have photophobia but does report eye closes when she is tired. She feels she is not aware of when she is doing this but does report it feels better when the eye is closed. Expressed concern that patient is in enough pain to go to ED yet is scheduled for more surgery on 02/01/14. Asked patient if EMS gave her a reason for the pain. Patient then told me she isn't taking pain med ED gave her and only went to ED because she left a message here on 01/19/14 and no one got back to her. Patient felt she could deal with the pain given she was scheduled for more surgery on 01/28/14 but when she found out surgery got move to 02/01/14 she decided to call here again to see if EMS could rx something to get her through. Told patient I would notify EMS of continued pain problems and either EMS or I would get back in touch with her on 01/27/14. * Telephone Encounter - Nilsa Oquendo COT - 01/26/2014 3:54 PM EST LM for patient to call me back to discuss pain and potentially see EMS week of 02/01 instead of having surgery. * Telephone Encounter - Genevieve Gao - 01/26/2014 3:22 PM EST Pt was given Oxycodone for pain in the ED, but with two toddlers not hte best thing. Is there something else that can be given? It would be sent to [facility] in [place]. documented in this encounter Plan of Treatment Not on file documented as of this encounter Visit Diagnoses Not on filedocumented in this encounter
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
--- OUTSIDE RECORDS SUMMARY | 2024-01-13 18:59 | XMS_ITS | Encounter Summary ---
Author Organization [facility] Address [facility] [place] [address] Care Team Providers Care Bed Spring Maker Name Role Phone Amada Carson MD Primary Care Provider [phone] Encounter Details Date Type Department Care Team (Late st Contact Info) Description 08/03/2014 Abstract Nancy Javed Conversion Results [address] [place] [id number] Apd Conversion, Flowsheet Provider, Social History Tobacco [...] Sign Reading Time Taken Comments Blood Pressure 130/82 08/03/2014 11:05 AM EDT Sourced from [facility] Conversion Pulse - - Temperature - - Respiratory Rate - - Oxygen Saturation - - Inhaled Oxygen Concentration - - Weight 102.7 kg (226 lb 6.6 oz) 08/02/2014 1:37 PM EDT Sourced from [facility] Conversion Height - - Body Mass Index 36.54 02/01/2014 6:56 AM EST documented in this encounter Plan of Treatment Not on file documented as of this encounter Visit Diagnoses Not on filedocumented in this encounter Care Teams Bed Spring Maker Relationship Specialty Start Date End Date Amada Carsno MD [address] [facility] [place], [place] [id number] PCP - General 06/09/18 08/27/18 documented as of this encounter
--- OUTSIDE RECORDS SUMMARY | 2024-01-13 18:59 | XMS_ITS | Encounter Summary ---
Author Organization [facility]ly [facility] [address] Care Team Providers Care Branch Controller Name Role Phone Unavailable Primary Care Provider Unavailabl e Encounter Details Date Type Department Care Team (Late st Contact Info) Description 12/31/2013 7:24 AM EST Anesthesia Event [facility] [place] [address] Leidy Lopes MD [facility] [place] [address] Jomar Lopes MD [facility] [place] [address] Anesthesia Record Procedure Summary Procedure Name Responsible Anesthesiologist Anesthesia Start Time Anesthesia Stop Time STRABISMUS SURGERY, ONE HORIZONTAL MUSCLE, JEFF (WRVU 5.93) (Bilateral: Eye) Leidy Lopes MD 12/31/13 0724 12/31/13 0909 Events Date Time Event Comment 12/31/2013 0713 0724 Start 0728 AN Verify 0728 An Start Data 0731 An Induction 0732 An Intubation 0732 Anesthesia Ready 0858 Extubation/LMA Out 0858 an stop data LMA removed wit hout incident. To recovery, awake and alert, teary and complaining of mild nausea. Consoled and additional antiemetics ordered. 0909 Stop Meds Name Total Midazolam 2 mg IV Lidocaine 40 mg Propofol 220 mg Ondansetron 8 mg Dexamethasone 8 mg Propofol INF 282 mg ceFAZolin (ANCEF) 2,000 mg in dextrose 5 % 106.06 mL 2 g Ketorolac 15 mg Lactated Ringers 1,000 mL * Agents Name O2 Air N2O Sevoflurane (et) * Blood No blood administrations on file. Lines, Drains, and Airways Type Details Placement Removal (RETIRED) Peripheral IV Line - Single Lumen 12/31/13; 0645; metacarpal vein left (top of hand); [id number] catheter system; 22 gauge, 1 in length; intradermal injection, tolerated well, appears comfortable; 0; 12/31/13; 1311 12/31/13 0645 by Ellyn Turk RN 12/31/13 1311 by Jeromy Johns RN Supraglottic Mask Ventilation: Reddy espinal (1); LMA Type: Flexible; LMA Size: 4; Inserted by: [email or web address]; Removal Date: 12/31/13; Removal Time: 85712/31/13 0732 by Tej Alfonso, NUTRITIONAL SERVICES DIRECTOR 12/31/13 0858 by Tej Alfonso, NUTRITIONAL SERVICES DIRECTOR Incision eye; LDA not present upon assessment; 10/17/19; 165712/31/13 0802 by 10/17/19 1658 by Em Lemos RN Incision eye; LDA not present upon assessment; 10/17/19; 165712/31/13 0823 by 10/17/19 1658 by Em Lemos RN documented in this encounter Social History [...] OR Notes * Anesthesia Postprocedure Evaluation - Leidy Lopes MD - 12/31/2013 10:24 AM EST Patient: Kimberli Bales Procedure(s) Performed: Procedure(s): STRABISMUS SURGERY, ONE HORIZONTAL MUSCLE, JEFF STRABISMUS SURGERY, PLACEMENT OF ADJUSTABLE SUTURES IN CONJUNCTION W/ ANOTHER SURGERY Actual Anesthetic: general Patient location: PACU Post-op pain: Adequate analgesia Post-op nausea: no nausea or vomiting Last Vitals: Filed Vitals: 12/31/13 0934 BP: 130/79 Pulse: 63 Temp: Resp: 16 Post-op cardiovascular and respiratory status: is stable Level of consciousness: awake, alert and oriented Complications: no apparent complications and tolerated the procedure well Fluid Status: normal * Anesthesia Preprocedure Evaluation - Leidy Lopes MD - 12/30/2013 3:02 PM EST Pre-Anesthesia Evaluation for: Kimberli Bales a [...] negative cultures. If sx develop check Micro, PILLOW CLEANER or stone. Past Medical History Diagnosis Date ??? Pseudotumor cerebri ??? Strabismus ??? Allergic state No past surgical history on file. History Substance Use Topics ??? Smoking status: Current Some Day Smoker -- 0.25 packs/day for 2 years Types: Cigarettes Last Attempt to Quit: 06/17/2009 ??? Smokeless tobacco: Never Used ??? Alcohol Use: Yes Comment: socially History Drug Use No Allergies Allergen Reactions ??? Red Dye Stops heart ??? Percocet [Oxycodone-Acetaminophen] Difficulty breathing Medications: MAR and/or home medications have been reviewed. Physical Exam: There were no vitals filed for this visit. There is no weight on file to calculate BMI. Airway Assessment: Mallampati: II TM distance: >3 FB Neck ROM: full Cardiovascular Assessment: cardiovascular exam normal Pulmonary Assessment: pulmonary exam normal Dental Assessment: - normal exam Misc Assessment: Anesthesia Plan: ASA 2 general, with a(n) intravenous induction LMA VS ETT Region - Other Informed Consent: Anesthetic plan and risks discussed with patient. Use of blood products discussed with whom consented to blood products. Plan discussed with SEAN. Evaristo. Assessment: documented in this encounter Plan of Treatment Not on file documented as of this encounter Visit Diagnoses Not on filedocumented in this encounter Administered Medications Inactive Administered Medications - up to 3 most recent administrations Medication Order MAR Action Action Date Dose Rate Site ceFAZolin (ANCEF) 2,000 mg in dextrose 5% 106.06 mL 2,000 mg (2 g), Intravenous, ONCE, 1 dose, On Tayler 12/31/13 at 0745, Intra-Operative (Intra-Procedure), Indication for (Active or Suspected): Prophylaxis Given 12/31/2013 7:51 AM EST 2 g dexamethasone (DECADRON) injection PRN, Starting on Tayler 12/31/13 at 0741, Until Tayler 12/31/13 at 0912, Anesthesia Intra-op, Routine Given 12/31/2013 7:41 AM EST 8 mg ketorolac (TORADOL) injection PRN, Starting on Tayler 12/31/13 at 0830, Until Tayler 12/31/13 at 0912, Pain, Anesthesia Intra-op, Routine Given 12/31/2013 8:30 AM EST 15 mg lactated ringers infusion CONTINUOUS PRN, Starting on Tayler 12/31/13 at 0717, Until Tayler 12/31/13 at 0912, Anesthesia Intra-op New Bag 12/31/2013 7:17 AM EST lidocaine (PF) (XYLOCAINE) 100 mg/5 mL (2 %) injection PRN, Starting on Tayler 12/31/13 at 0726, Until Tayler 12/31/13 at 0912, Anesthesia Intra-op, Routine Given 12/31/2013 7:26 AM EST 40 mg midazolam (PF) (VERSED) 1 mg/mL injection PRN, Starting on Tayler 12/31/13 at 0724, Until Tayler 12/31/13 at 0912, Sleep, Anesthesia Intra-op, Routine Given 12/31/2013 7:24 AM EST 2 mg ondansetron (ZOFRAN) injection PRN, Starting on Tayler 12/31/13 at 0835, Until Tayler 12/31/13 at 0912, Nausea, Anesthesia Intra-op, Routine Given 12/31/2013 8:35 AM EST 8 mg propofol (DIPRIVAN) 10 mg/mL bolus injection (Anesthesia) PRN, Starting on Tayler 12/31/13 at 0731, Until Tayler 12/31/13 at 0912, Anesthesia Intra-op Given 12/31/2013 8:52 AM EST 20 mg Given 12/31/2013 7:31 AM EST 200 mg propofol (DIPRIVAN) infusion CONTINUOUS PRN, Starting on Tayler 12/31/13 at 0737, Until Tayler 12/31/13 at 0912, Anesthesia Intra-op, Routine Rate/Dose Change 12/31/2013 8:16 AM EST 30 mcg/kg/min 18 mL/hr New Bag 12/31/2013 7:37 AM EST 50 mcg/kg/min 30 mL/hr documented in this encounter
--- OUTSIDE RECORDS SUMMARY | 2024-01-13 18:59 | XMS_ITS | Encounter Summary ---
Author Organization [facility] [place] [address] Care Team Providers Care Director Of Services Name Role Phone Amada Carson MD Primary Care Provider [phone] Encounter Details Date Type Department Care Team (Late st Contact Info) Description 02/28/2016 Abstract Nancy Javed Conversion Results [address] [place] [id number] Apd Conversion, Flowsheet Provider, Social History Tobacco [...] Sign Reading Time Taken Comments Blood Pressure 144/90 02/28/2016 10:00 AM EST Sourced from APD Conversion Pulse - - Temperature - - Respiratory Rate - - Oxygen Saturation - - Inhaled Oxygen Concentration - - Weight - - Height - - Body Mass Index - - documented in this encounter Plan of Treatment Not on file documented as of this encounter Visit Diagnoses Not on filedocumented in this encounter Care Teams Director Of Services Relationship Specialty Start Date End Date Amada Carson MD [address] [place] [address] PCP - General 06/09/18 08/27/18 documented as of this encounter
--- OUTSIDE RECORDS SUMMARY | 2024-01-13 18:59 | XMS_ITS | Encounter Summary ---
Author Organization [facility] [place] [address] Care Team Providers Care Wire Stripper Name Role Phone Amada Carson MD Primary Care Provider [phone] Encounter Details Date Type Department Care Team (Late st Contact Info) Description 08/03/2014 Abstract Nancy Javed Conversion Results [address] [place] [id number] Apd Conversion, Flowsheet Provider, Social History Tobacco [...] on filedocumented in this encounter Care Teams Wire Stripper Relationship Specialty Start Date End Date Amada Carson MD [address] [place] [address] PCP - General 06/09/18 08/27/18 documented as of this encounter
--- OUTSIDE RECORDS SUMMARY | 2024-01-13 18:59 | XMS_ITS | Encounter Summary ---
Author Organization [facility] [place] [address] Care Team Providers Care Enrollment Counselor Name Role Phone Amada Carson MD Primary Care Provider [phone] Encounter Details Date Type Department Care Team (Late st Contact Info) Description 12/14/2016 Abstract Nancy Javed Conversion Results [address] [place] [phone] Apd Conversion, Flowsheet Provider, Social History Tobacco [...] Sign Reading Time Taken Comments Blood Pressure 140/90 12/14/2016 10:14 AM EDT Sourced from [facility] Conversion Pulse - - Temperature - - Respiratory Rate - - Oxygen Saturation - - Inhaled Oxygen Concentration - - Weight - - Height - - Body Mass Index - - documented in this encounter Plan of Treatment Not on file documented as of this encounter Visit Diagnoses Not on filedocumented in this encounter Care Teams Enrollment Counselor Relationship Specialty Start Date End Date Amada Carson MD [address] [place] [address] PCP - General 06/09/18 08/27/18 documented as of this encounter
--- OUTSIDE RECORDS SUMMARY | 2024-01-13 18:59 | XMS_ITS | Encounter Summary ---
Author Organization [facility] [place] [address] Care Team Providers Care Stone Driller Name Role Phone Unavailable Primary Care Provider Unavailabl e Reason for Visit * Reason Comments Post Op Pt is post op from s trabismus surgery on 02/01/2014 Encounter Details Date Type Department Care Team (Late st Contact Info) Description 02/05/2014 10:30 AM EST Office [place] [address] Genevieve Ragsdale MD [facility] [place] [address] Follow-up examination after eye surgery; Post-operative state; [...] Progress Notes * Genevieve Ragsdale MD - 02/22/2014 8:21 AM EST POW#1 s/p RLR re-recession and dissection of scar tissue for 9.0mm recession total and RMRx 5.0mm 02/01/14. Normal post op healing appearance. Reassurance provided. No signs of infection. Explained that it can take a few weeks to month for redness to completely resolve. No swimming x 1 more week. Baths ok. Extensive scarring and possible suture reaction at adjustable suture site after first surgery. No signs of issues at this time. Small undercorrection. No diplopia. Trace adduction deficit despite large RLRc and RMRx. Plan: Continue Tdex oint QHS x 1 more week. F/u 3 months. GENEVIEVE RAGSDALE MD documented in this encounter Plan of Treatment Not on file documented as of this encounter Visit Diagnoses Diagnosis Follow-up examination after eye surgery Follow-up examination, following other surgery Post-operative state Other postprocedural status Exotropia Exotropia, unspecified documented in this encounter
--- OUTSIDE RECORDS SUMMARY | 2024-01-13 18:59 | XMS_ITS | Encounter Summary ---
Author Organization [facility] Address [facility] [place] [address] Care Team Providers Care Credentialing Manager Name Role Phone Unavailable Primary Care Provider Unavailabl e Encounter Details Date Type Department Care Team (Late st Contact Info) Description 12/31/2013 7:30 AM EST - 12/31/2013 9:15 AM EST Surgery [facility] [place] [id number] Genevieve Walsh MD [facility] [place] [address] STRABISMUS SURGERY, ONE HORIZONTAL MUSCLE, JEFF (WRVU 5.93) Social History Tobacco Use Types Packs/Day Years [...] Sign Reading Time Taken Comments Blood Pressure 130/79 12/31/2013 9:34 AM EST Pulse 63 12/31/2013 9:34 AM EST Temperature 36.3 ??C (97.3 ??F) 12/31/2013 9:07 AM ES T Respiratory Rate 16 12/31/2013 9:34 AM EST Oxygen Saturation 97% 12/31/2013 9:34 AM EST Inhaled Oxygen Concentration - - Weight 95.3 kg (210 lb) 12/31/2013 6:25 AM EST Height 167.6 cm (5' 6) 12/31/2013 6:25 AM EST Body Mass Index 33.89 12/31/2013 6:25 AM EST documented in this encounter Discharge Instructions * Discharge Instructions* Jeromy Johns RN - 12/31/2013 10:10 AM EST General Anesthesia Discharge Instructions Go [...] closest emergency room or call the hospital devulcanizer operator at [phone] and ask for physician anhydrous ammonia production supervisor covering for your physician. Questions or problems after 5pm or on a weekend: Call the [facility] devulcanizer operator at and ask for the physician anhydrous ammonia production supervisor covering for your doctor. You received 650 mg of acetaminophen at 0715 am. Your next dose should not be taken before 115 pm today. * Patient Instructions* Genevieve Walsh MD - 12/31/2013 9:00 AM EST Tobradex drops or ointment to both eyes three times daily for 5 days. Vigamox eyedrops to both eyes three times daily for 5 days. Ice packs (frozen peas) to both eyes as needed for swelling or discomfort. Tylenol or ibuprofen as needed for pain ([id number]). [place] tinged or bloody tears is normal. Crusting of the eyelids can be gently cleaned with a warm wet cloth. Call [phone] with any questions or concerns. documented in this encounter Medications at Time of Discharge Medication Sig Dispensed Refills Start Date End Date tobramycin-dexamethasone (TOBRADEX) Drops, Suspension Apply 1 drop to eye 3 times daily for 5 days. Patient to begin when they arrive home. Can use either drops or ointment. 5 mL 0 12/31/2013 01/05/2014 ACETAMINOPHEN (TYLENOL ORAL) Take 325 mg by mouth as needed. 07/22/2018 documented as of this encounter H&P Notes * Genevieve Walsh MD - 12/30/2013 9:28 PM EST There are no changes from original history and physical performed. Source Note - Genevieve Walsh MD - 12/30/2013 9:28 PM EST See outside H and P under scanned documents. * Genevieve Walsh MD - 12/30/2013 9:28 PM EST See outside H and P under scanned documents. documented in this encounter Miscellaneous Notes * Op Note - Genevieve Walsh MD - 01/03/2014 12:05 PM EST [facility] [place] Patient Name: Kimberli Bales : [id number] MR#: [id number] Case Date: 12/31/2013 Surgeon: Surgeon(s) and Role: * Genevieve Walsh MD - Primary Preoperative diagnosis: Exotropia Postoperative diagnosis: Exotropia Procedure(s): Bilateral lateral rectus recession with adjustable suture right eye for a net 9.0mm recession righteye and 8.0mm recession left eye Anesthesia: General Estimated Blood Loss: <5cc Specimens removed during surgery: None Drains: none Surgical Closure: Primary Closure - closure of ALL tissue levels during the original surgery regardless of wires, wickes, drains, or other devices extruding through the incision Disposition: awakened from anesthesia, extubated and taken to the recovery room in a stable condition, having suffered no apparent untoward event. Condition: doing well without problems INDICATIONS FOR PROCEDURE: Kimberli is a 28 year old woman with a long standing exotropia, previously intermittent with fair control and now progression over the past 3 years to a constant large angle. There is a strong left eye fixation preference, and equal vision. After discussion with the patient, risks, benefits, and alternatives of surgery were Described in detail, and they elected to proceed with the surgery, and informed consent was obtained. DESCRIPTION OF PROCEDURE: The patient was met in the preoperative holding area and accompanied to the operating room. she was placed under general anesthesia by the anesthesia department via LMA. Both eyes were prepped and draped in the usual sterile ophthalmic fashion. One drop of 2.5% phenylephrine was placed in each eye. A time out was performed. My attention was first turned to the right eye and eye was supra and adducted with 0.5 locking forceps placed at the limbus. A conjunctival Tenon's incision was made in the inferotemporal fornix with blunt Viktor scissors and blunt dissection was carried into the inferotemporal quadrant. The lateral rectus was isolated on a small hook, followed by a large hook, followed by the Jeyson hook. Conjunctiva was reflected over the ball of the muscle hook and Tenon's was buttonholed over the ball of the hook. A combination of blunt and sharp dissection was carried out anterior and posterior to the muscle insertion site to clear excess Tenon's and intermuscular septa. A superior pole test was performed to ensure that the entire muscle had been captured. 6-0 coated double-armed Vicryl suture on an S29 needle was utilized to create a central full-thickness locking bite followed by imbricating whiplocked bites through either pole of the muscle. The muscle was disinserted from the globe with Aebli scissors and locking 0.5 forceps were placed at each pole ofthe muscle insertion site. The central aspect of the muscle insertion site was marked with a marking pen. Bipolar cautery was utilized for hemostasis. An adjustable suture was used. After disinsertion of the muscle from the globe, the muscle was reattached with partial thickness scleral passes in across swords configuration at the original muscle insertion site. The muscle was brought up to the muscle insertion site and an overhand knot applied. A segment of vicryl suture was then used with a double knot to create a noose suture at 8.0mm. The pull suture was secured to allow an additional 3.0mm recession if necessary. The muscle was allowed to hangback and a 8.0mm recession was confirmed. 5-0 mersilene was then used with episcleral passes just anterior and inferior to the muscle insertion site, secured with an overhand knot, to create a bucket handle at the time of adjustment if necessary. The conjunctiva was reapproximated with 8-0 Vicryl suture and the lid speculum was removed. My attention was then turned to the left eye where a similar procedure was performed, except that no adjustable suture was used. After disinsertion from the globe, the muscle was reattached to the sclera with partial thickness passes 8.0mm posterior and parallel to the original muscle insertion. Conjunctival was closed in the same manner as above. The lid speculum was removed. Drapes were removed and the patient's face was washed. One drop of proparacaine was placed in each eye followed by TobraDex drops. The patient was extubated under the guidance of the anesthesia department after tolerating the procedure well and was brought to the PACU in stable condition. I performed the entire procedure myself without the assistance of a resident. Adjustment: Approximately 90 minutes after the conclusion of the case, I examined the patient for possible suture adjustment. The patient denied double vision, but had difficulty keeping her eyes open for more than a few seconds at a time. A drop of proparacaine was placed in each eye. On cover-uncover, there was a residual right exotropia at distance and near. An adjustment was performed for a net 9.0mm recession of the right lateral rectus. After adjustment, there was a variable right exotropia and no diplopia. The mersilene suture was cut and removed from the right eye. Conjunctiva was reflected over the adjustable suture apparatus. Tobradex ointment was placed in each eye. The patient tolerated the adjustment well. * Op Note - Genevieve Walsh MD - 12/31/2013 1:32 PM EST [facility] [place] Patient Name: Kimberli Bales : [id number] MR#: [id number] Case Date: 12/31/2013 Surgeon: Surgeon(s) and Role: * Genevieve Walsh MD - Primary Preoperative diagnosis: Exotropia Postoperative diagnosis: Exotropia Procedure(s): Bilateral lateral rectus recessions with adjustable suture right eye for a net: 9.0mm recession right eye; 8.0mm recession left eye Anesthesia: General Estimated Blood Loss: <5cc Specimens removed during surgery: None Drains: none Surgical Closure: Primary Closure - closure of ALL tissue levels during the original surgery regardless of wires, wickes, drains, or other devices extruding through the incision Disposition: awakened from anesthesia, extubated and taken to the recovery room in a stable condition, having suffered no apparent untoward event. Condition: doing well without problems INDICATIONS FOR PROCEDURE: Kimberli is a 28 year old woman with a history of longstanding exotropia with asthenopia and poor binocularity. Eye muscle surgery was offered to improve binocular functioning and eye contact. After discussion with the patient, risks, benefits, and alternatives of surgery were Described in detail, and she elected to proceed with the surgery, and informed consent was obtained. DESCRIPTION OF PROCEDURE: The patient was met in the preoperative holding area and accompanied to the operating room. she was placed under general anesthesia by the anesthesia department via LMA. Both eyes were prepped and draped in the usual sterile ophthalmic fashion. One drop of 2.5% phenylephrine was placed in each eye. A time out was performed. My attention was first turned to the right eye and eye was supra and adducted with 0.5 locking forceps placed at the limbus. A conjunctival Tenon's incision was made in the inferotemporal fornix with blunt Viktor scissors and blunt dissection was carried into the inferotemporal quadrant. The lateral rectus was isolated on a small hook, followed by a large hook, followed by the Jeyson hook. Conjunctiva was reflected over the ball of the muscle hook and Tenon's was buttonholed over the ball of the hook. A combination of blunt and sharp dissection was carried out anterior and posterior to the muscle insertion site to clear excess Tenon's and intermuscular septa. A superior pole test was performed to ensure that the entire muscle had been captured. 6-0 coated double-armed Vicryl suture on an S29 needle was utilized to create a central full-thickness locking bite followed by imbricating whiplocked bites through either pole of the muscle. The muscle was disinserted from the globe with Aebli scissors and locking 0.5 forceps were placed at each pole ofthe muscle insertion site. An adjustable suture was used. After disinsertion of the muscle from theglobe, the muscle was reattached with partial thickness scleral passes in a cross swords configuration at the original muscle insertion site. The muscle was brought up to the muscle insertion site and an overhand knot applied. A segment of vicryl suture was then used with a double knot to create a noose suture at 8.0mm. The pull suture was secured to allow an additional 3.0mm recession if necessary. The muscle was allowed to hangback and a 8.0mm recession was confirmed. 5-0 mersilene was then used with episcleral passes just anterior and inferior to the muscle insertion site, secured with an overhand knot, to create a bucket handle at the time of adjustment if necessary. The conjunctiva wasreapproximated with 8-0 Vicryl suture and the lid speculum was removed. My attention was then turned to the left eye where a similar procedure was performed except that no adjustable suture was used. The muscle was reattached to the globe with partial thickness scleral passes 8.0-mm posterior to the insertion of the lateral rectus. The lid speculum was removed. Drapes were removed and the patient's face was washed. One drop of proparacaine was placed in each eye followed by TobraDex ointment in each eye. The patient was extubated under the guidance of the anesthesia department after tolerating the procedure well and was brought to the PACU in stable condition. I performed the entire procedure myself. Adjustment: Approximately 90 minutes after the conclusion of the case, I examined the patient for possible suture adjustment. The patient denied double vision. A drop of proparacaine was placed in each eye. A small hematoma was noted over the left lateral rectus surgical site. On cover-uncover, there was a moderate residual right exotropia at distance and near. An adjustment was performed for a net 9.0mm right lateral rectus recession. After adjustment, there was small angle exotropia with some limitation of abduction both eyes. The mersilene suture was cut and removed from the right eye. Conjunctiva wasreflected over the adjustable suture apparatus and a pre-placed 8-0 vicryl conj suture was secured.Tobradex ointment was placed in each eye. The patient tolerated the adjustment well. * Brief Op Note - Genevieve Walsh MD - 12/31/2013 8:59 AM EST Brief Operative Note Patient Name: Kimberli Bales : [id number] MR#: [id number] Case Date: 12/31/2013 Surgeon: Surgeon(s) and Role: * Genevieve Walsh MD - Primary Preoperative diagnosis: Exotropia Postoperative diagnosis: Exotropia Procedure(s): STRABISMUS SURGERY, ONE HORIZONTAL MUSCLE, JEFF STRABISMUS SURGERY, PLACEMENT OF ADJUSTABLE SUTURES IN CONJUNCTION W/ ANOTHER SURGERY Anesthesia: General Findings: n/a Complications: none Fluids: LR 700cc Estimated Blood Loss: <3cc Drains: none Disposition: [...] Priority Date/Time Associated Diagnosis Comments STRABISMUS SURGERY, PLACEMENT OF ADJUSTABLE SUTURES IN CONJUNCTION W/ [facility] 12/31/2013 7:26 AM EST Hypertropia Exotropia STRABISMUS SURGERY, ONE HORIZONTAL MUSCLE, JEFF (WRU 5.93) 12/31/2013 7:26 AM EST Hypertropia Exotropia documented in this encounter Visit Diagnoses Diagnosis Hypertropia Exotropia Exotropia, unspecified documented in this encounter Administered Medications Inactive Administered Medications - up to 3 most recent administrations Medication Order MAR Action Action Date Dose Rate Site acetaminophen (TYLENOL) tablet 650 mg 650 mg, Oral, ONCE, 1 dose, On [place] 12/31/13 at 0715, Maximum dose of acetaminophen is 4000 mg from all sources in 24 hours., Day of Surgery (Day of Procedure), Routine Given 12/31/2013 7:15 AM EST 650 mg hydroxypropyl cellulose ((HYPROMELLOSE; OCUCOAT)) 2 % ophthalmic insert ONCE PRN, Starting on Tayler 12/31/13 at 0800, Until Tayler 12/31/13 at 1628, Intra-Operative (Intra-Procedure), Routine Given 12/31/2013 8:00 AM EST 1 Syringe Both Eyes lactated ringers infusion 1,000 mL 1,000 mL, at 100 mL/hr, Intravenous, CONTINUOUS, Starting on Tayler 12/31/13 at 0645, Until Tayler 12/31/13 at 1628, Day of Surgery (Day of Procedure) New Bag 12/31/2013 6:45 AM EST 1,000 mLs 100 mL/hr lactated ringers infusion 100 mL/hr, Intravenous, CONTINUOUS, Starting on Tayler 12/31/13 at 0930, Until Tayler 12/31/13 at 1628, PACU Recovery New Bag 12/31/2013 9:25 AM EST 100 mL/hr 100 mL/hr moxifloxacin (VIGAMOX) 0.5 % ophthalmic solution 1 drop 1 drop, Both Eyes, EVERY 10 MIN, 3 doses, First dose on Tayler 12/31/13 at 0645, Last dose on Tayler 12/31/13 at 0705, Day of Surgery (Day of Procedure), Routine Given 12/31/2013 7:05 AM EST 1 drop Given 12/31/2013 6:55 AM EST 1 drop Given 12/31/2013 6:45 AM EST 1 drop oxyCODONE (ROXICODONE) 5 mg immediate release tablet 1 dose, Starting on Tayler 12/31/13 at 1216, Until Tayler 12/31/13 at 1230, ENEROAVIS JOHNS: cabinet override Given 12/31/2013 12:30 PM EST 5 mg promethazine (PHENERGAN) injection 6.25 mg 6.25 mg, Intravenous, ONCE PRN, Nausea, may repeat times one, Starting on Tayler 12/31/13 at 0914, 1 dose, Until Tayler 12/31/13 at 0923, Dilute in 20 mL sodium chloride 0.9% and administer through a free flowing IV. Usual dose range 0.25-0.5 mg/kg/dose to a maximum of 25 mg/dose, PACU Recovery Given 12/31/2013 9:23 AM EST 6.25 mg proparacaine (ALCAINE) 0.5 % ophthalmic solution ONCE PRN, Starting on Tayler 12/31/13 at 0855, Until Tayler 12/31/13 at 1628, Intra-Operative (Intra-Procedure), Routine Given 12/31/2013 8:55 AM EST 2 drops tobramycin-dexamethasone (TOBRADEX) ophthalmic solution ONCE PRN, Starting on Tayler 12/31/13 at 0855, Until Tayler 12/31/13 at 1628, Intra-Operative (Intra-Procedure), Routine Given 12/31/2013 8:55 AM EST 2 drops documented in this encounter Active and Recently Administered Medications Times are shown in EST. Scheduled Medication Order 12/29/2013 12/30/2013 12/31/2013 acetaminophen (TYLENOL) tablet 650 mg (COMPLETED) 650 mg, Oral, ONCE, 1 dose, On Tayler 12/31/13 at 0715, Maximum dose of acetaminophen is 4000 mg from all sources in 24 hours., Day of Surgery (Day of Procedure), Routine 0715 (Given - Provid er: Ellyn Turk RN) ceFAZolin (ANCEF) 2,000 mg in dextrose 5% 106.06 mL (COMPLETED) 2,000 mg (2 g), Intravenous, ONCE, 1 dose, On Tayler 12/31/13 at 0745, Intra-Operative (Intra-Procedure), Indication for (Active or Suspected): Prophylaxis 0751 (Given - Provid er: Tej Alfonso) moxifloxacin (VIGAMOX) 0.5 % ophthalmic solution 1 drop (COMPLETED) 1 drop, Both Eyes, EVERY 10 MIN, 3 doses, First dose on Tayler 12/31/13 at 0645, Last dose on Tayler 12/31/13 at 0705, Day of Surgery (Day of Procedure), Routine 0645 (Given - Provid er: Ellyn Turk RN)0655 (Given - Provider: Ellyn Turk RN)0705 (Given - Provider: Ellyn Turk RN) Continuous Medication Order 12/29/2013 12/30/2013 12/31/2013 lactated ringers infusion 1,000 mL (CANCELED) 1,000 mL, at 100 mL/hr, Intravenous, CONTINUOUS, Starting on Tayler 12/31/13 at 0645, Until Tayler 12/31/13 at 1628, Day of Surgery (Day of Procedure) 0645 (New Bag - Prov ider: Ellyn Turk RN) lactated ringers infusion (CANCELED) 100 mL/hr, Intravenous, CONTINUOUS, Starting on [place]ler 12/31/13 at 0930, Until Tayler 12/31/13 at 1628, PACU Recovery 0925 (New Bag - Prov ider: Jeromy Johns RN) PRN Medication Order 12/29/2013 12/30/2013 12/31/2013 hydroxypropyl cellulose ((HYPROMELLOSE; OCUCOAT)) 2 % ophthalmic insert (CANCELED) ONCE PRN, Starting on Tayler 12/31/13 at 0800, Until Tayler 12/31/13 at 1628, Intra-Operative (Intra-Procedure), Routine 0800 (Given - Provid er: Genevieve Walsh MD - Comment: on field for surgeon use.) promethazine (PHENERGAN) injection 6.25 mg (COMPLETED) 6.25 mg, Intravenous, ONCE PRN, Nausea, may repeat times one, Starting on Tayler 12/31/13 at 0914, 1 dose, Until Tayler 12/31/13 at 0923, Dilute in 20 mL sodium chloride 0.9% and administer through a free flowing IV. Usual dose range 0.25-0.5 mg/kg/dose to a maximum of 25 mg/dose, PACU Recovery 0923 (Given - Provid er: Jeromy Johns RN) proparacaine (ALCAINE) 0.5 % ophthalmic solution (CANCELED) ONCE PRN, Starting on Tayler 12/31/13 at 0855, Until Tayler 12/31/13 at 1628, Intra-Operative (Intra-Procedure), Routine 0855 (Given - Provid er: Em Booker RN) tobramycin-dexamethasone (TOBRADEX) ophthalmic solution (CANCELED) ONCE PRN, Starting on Tayler 12/31/13 at 0855, Until Tayler 12/31/13 at 1628, Intra-Operative (Intra-Procedure), Routine 0855 (Given - Provid er: Em Booker RN) No Frequency Medication Order 12/29/2013 12/30/2013 12/31/2013 oxyCODONE (ROXICODONE) 5 mg immediate release tablet (COMPLETED) 1 dose, Starting on Tayler 12/31/13 at 1216, Until Tayler 12/31/13 at 1230, JEROMY JOHNS: cabinet override 1230 (Given - Provid er: Jeromy Johns RN) documented in this encounter
--- OUTSIDE RECORDS SUMMARY | 2024-01-13 18:59 | XMS_ITS | Encounter Summary ---
Author Organization [facility] [place] [address] Care Team Providers Care Commercial Baker Helper Name Role Phone Unavailable Primary Care Provider Unavailabl e Encounter Details Date Type Department Care Team (Late st Contact Info) Description 08/15/2012 Telephone [place] [address] Jeremias Childs, [facility] [place] [address] Social History Tobacco Use Types Packs/Day Years [...] Telephone Encounter - Jeremias Childs MD - 08/15/2012 11:17 AM EDT Patient of Dr. Nelson's. Received phone call from Dr. Carson who is her PCP. States Kimberli stopped her diamox due to payment issues, but has been back on diamox 125 mg BID for the past month with no resolution of her headaches. Very worried about her and worried that she will fall through the cracks. Recommended that she increase dose to diamox 250 mg BID and will have Dr. Nelson schedule a followup. However Dr. Carson wanted to speak with the clinic attending strategic communications manager. Advised her she will have to go through the transfer center for this. Jeremias Childs DO Resident in Neurology documented in this encounter Plan of Treatment Not on file documented as of this encounter Visit Diagnoses Not on filedocumented in this encounter
--- OUTSIDE RECORDS SUMMARY | 2024-01-13 18:59 | XMS_ITS | Encounter Summary ---
Author Organization [facility] [place] [facility] [address] Care Team Providers Care Field Mechanic/Site Lead Name Role Phone Amada Carson MD Primary Care Provider [phone] Encounter Details Date Type Department Care Team (Late st Contact Info) Description 08/02/2014 Orders Only Radiology and Cardiology Results [address] [place] [id number] Apd Conversion, Results Provider, Social History Tobacco [...] Procedure Name Priority Date/Time Associated Diagnosis Comments PROLACTIN Routine 08/02/2014 documented in this encounter Results * (ABNORMAL) Prolactin (08/02/2014) Prolactin 3.1(ExtL) 4.8 - 23.3 GUALBERTO PEC William DAY CONVERSION 08/02/2014 Results Provider Apd Conversion MD GAVINO GALARZA ORDERABLES GUALBERTO CHRISTO DAY CONVERSION documented in this encounter Visit Diagnoses Not on filedocumented in this encounter Care Teams Field Mechanic/Site Lead Relationship Specialty Start Date End Date Amada Carson MD [address] [address] PCP - General 06/09/18 08/27/18 documented as of this encounter
--- OUTSIDE RECORDS SUMMARY | 2024-01-13 18:59 | XMS_ITS | Encounter Summary ---
Author Organization Formerly [facility] [place] [address] Care Team Providers Care Sciences Dean Name Role Phone Unavailable Primary Care Provider Unavailabl e Encounter Details Date Type Department Care Team (Latest Contact Info) Description 12/31/2013 6:04 AM EST - 12/31/2013 1:12 PM EST Hospital Encounter [place] [phone] Genevieve Walsh MD [facility] [address] [place] [address] Discharge Disposition: Home Social History Tobacco Use [...] closest emergency room or call the hospital weight count operator at [phone] [address] ask for physician [address] traffic controller covering for your physician. Questions or problems after 5pm or on a weekend: Call the [facility] weight count operator at and ask for the physician road traffic controller covering for your doctor. You received 650 [...] Tylenol or ibuprofen as needed for pain ([id number]). Tea tinged or bloody tears is normal. Crusting of the eyelids can be gently cleaned with a warm wet cloth. Call [phone] with any questions or concerns. documented in [...] Walsh MD - 01/03/2014 12:05 PM EST [facility] [place] Patient Name: Kimberli Bales : [id number] MR#: [id number] Case Date: 12/31/2013 Surgeon: Surgeon(s) and Role: [...] by a large hook, followed by the Trion hook. Conjunctiva was reflected over the ball [...] Walsh MD - 12/31/2013 1:32 PM EST [facility] [place] Patient Name: Kimberli Bales : [id number] MR#: [id number] Case Date: 12/31/2013 Surgeon: Surgeon(s) and Role: [...] by a large hook, followed by the Trion hook. Conjunctiva was reflected over the ball [...] Operative Note Patient Name: Kimberli Bales : [id number] MR#: [id number] Case Date: 12/31/2013 Surgeon: Surgeon(s) and Role: [...] ADJUSTABLE SUTURES IN CONJUNCTION W/ ANOTHER SURGERY (WRU 3.23) 12/31/2013 7:26 AM EST Hypertropia Exotropia STRABISMUS SURGERY, ONE HORIZONTAL MUSCLE, JEFF (WRU 5.93) 12/31/2013 7:26 AM EST Hypertropia Exotropia documented in this encounter Visit Diagnoses Not [...] Given 12/31/2013 7:15 AM EST 650 mg lactated ringers infusion 1,000 mL 1,000 mL, at 100 mL/hr, Intravenous, CONTINUOUS, Starting on Tayler 12/31/13 at 0645, Until Tayler 12/31/13 at 1628, Day of Surgery (Day of Procedure) [facility] 12/31/2013 6:45 AM EST 1,000 mLs 100 mL/hr lactated ringers infusion 100 mL/hr, Intravenous, CONTINUOUS, Starting on Tayler 12/31/13 at 0930, Until Tayler 12/31/13 at 1628, PACU Recovery [facility] 12/31/2013 9:25 AM EST 100 mL/hr 100 [...] Until Tayler 12/31/13 at 1230, JEROMY JOHNS: rickinet override Given 12/31/2013 12:30 PM EST 5 [...] Given 12/31/2013 9:23 AM EST 6.25 mg documented in this encounter Active and [...]
--- OUTSIDE RECORDS SUMMARY | 2024-01-13 18:59 | XMS_ITS | Encounter Summary ---
Author Organization Count Includes [facility] Address [facility] [address] Care Team Providers Care Insulation Machine Operator Name Role Phone Amada Carson MD Primary Care Provider [phone] [phone] Encounter Details Date Type Department Care Team (Late st Contact Info) Description 09/13/2015 Orders Only Radiology and Cardiology Results [address] [place] [phone] Apd Conversion, Results Provider, Social History Tobacco [...] Procedure Name Priority Date/Time Associated Diagnosis Comments HEMOGLOBIN A1C Routine 09/13/2015 documented in this encounter Results * (ABNORMAL) Hemoglobin A1c (09/13/2015) Estimated Average Glucose 96.8(Exter nal Lab) 82.5 - 116.9 GUALBERTO VILLAFUERTE DAY CONVERSION Hemoglobin A1c 5.0(Information Resources Manager al Lab) 4.5 - 6.2 GUALBERTO VILLAFUERTE DAY CONVERSION 09/13/2015 Results Provider Apd Conversion MD GAVINO GALARZA ORDERABLES GUALBERTO VILLAFUERTE DAY CONVERSION documented in this encounter Visit Diagnoses Not on filedocumented in this encounter Care Teams Insulation Machine Operator Relationship Specialty Start Date End Date Amada Carson MD [address] [place] [address] PCP - General 06/09/18 08/27/18 documented as of this encounter
--- OUTSIDE RECORDS SUMMARY | 2024-01-13 18:59 | XMS_ITS | Encounter Summary ---
Author Organization Formerly [facility] Address [facility] [place] [place] [address] Care Team Providers Care Customer Advisor Specialist Name Role Phone Amada Carson MD Primary Care Provider [phone] [phone] Encounter Details Date Type Department Care Team (Late st Contact Info) Description 04/08/2015 Abstract Nancy Javed Conversion Results [address] [place] [phone] Apd Conversion, Flowsheet Provider, Social History Tobacco [...] - Inhaled Oxygen Concentration - - Weight 121 kg (266 lb 12.1 oz) 04/08/2015 3:59 PM EST Sourced from [facility] Conversion Height - - Body Mass Index 42.87 10/11/2014 1:23 PM EDT documented in this encounter Plan of Treatment Not on file documented as of this encounter Visit Diagnoses Not on filedocumented in this encounter Care Teams Customer Advisor Specialist Relationship Specialty Start Date End Date Amada Carson MD [address] [place] [address] PCP - General 06/09/18 08/27/18 documented as of this encounter
--- OUTSIDE RECORDS SUMMARY | 2024-01-13 18:59 | XMS_ITS | Encounter Summary ---
Author Organization Formerly [facility] Address [facility] [place] [address] Care Team Providers Care Fire Investigation Lieutenant Name Role Phone Amada Carson MD Primary Care Provider [phone] [phone] Encounter Details Date Type Department Care Team (Late st Contact Info) Description 01/03/2016 Abstract Nancy Javed Conversion Results [address] [place] [phone] Apd Conversion, Flowsheet Provider, Social History Tobacco [...] Sign Reading Time Taken Comments Blood Pressure 138/92 01/03/2016 3:22 PM EST Sourced from [facility] Conversion Pulse - - Temperature - - Respiratory Rate - - Oxygen Saturation - - Inhaled Oxygen Concentration - - Weight 131.5 kg (289 lb 14.5 oz) 01/03/2016 3:22 PM EST Sourced from [facility] Conversion Height - - Body Mass Index 46.59 09/06/2015 10:43 AM EDT documented in this encounter Plan of Treatment Not on file documented as of this encounter Visit Diagnoses Not on filedocumented in this encounter Care Teams Fire Investigation Lieutenant Relationship Specialty Start Date End Date Amada Carson MD [address] [facility] [place], [place] [id number] PCP - General 06/09/18 08/27/18 documented as of this encounter
--- OUTSIDE RECORDS SUMMARY | 2024-01-13 18:59 | XMS_ITS | Encounter Summary ---
Author Organization [facility] Address [facility] [place] [address] Care Team Providers Care Reach Lift Truck Driver Name Role Phone Amada Carson MD Primary Care Provider [phone] [phone] Encounter Details Date Type Department Care Team (Late st Contact Info) Description 12/08/2013 Abstract Nancy Javed Conversion Results [address] [place] [address] Apd Conversion, Flowsheet Provider, Social History Tobacco [...] Sign Reading Time Taken Comments Blood Pressure 132/80 12/08/2013 8:10 AM EDT Sourced from [facility] Conversion Pulse - - Temperature - - Respiratory Rate - - Oxygen Saturation - - Inhaled Oxygen Concentration - - Weight 97.4 kg (214 lb 11.7 oz) 12/08/2013 8:10 AM EDT Sourced from [facility] Conversion Height 168 cm (5' 6.14) 12/08/2013 8:1 0 AM EDT Sourced from [facility] Conversion Body Mass Index 34.51 12/08/2013 8:10 AM EDT documented in this encounter Plan of Treatment Not on file documented as of this encounter Visit Diagnoses Not on filedocumented in this encounter Care Teams Reach Lift Truck Driver Relationship Specialty Start Date End Date Amada Carson MD [address] [place] [address] PCP - General 06/09/18 08/27/18 documented as of this encounter
--- OUTSIDE RECORDS SUMMARY | 2024-01-13 18:59 | XMS_ITS | Encounter Summary ---
Author Organization [facility] Address [facility] [place] [address] Care Team Providers Care Staff Genetic Counselor Name Role Phone Amada Carson MD Primary Care Provider [phone] [phone] Encounter Details Date Type Department Care Team (Latest Contact Info) Description 09/16/2015 5:02 PM EDT - 09/16/2015 11:59 PM EDT Hospital [place] [address] Discharge Disposition: Home Social History Tobacco Use [...] Associated Diagnosis Comments SURGICAL PATHOLOGY REPORT Routine 09/16/2015 12:00 PM EDT documented in this encounter Results * Surgical Pathology Report (09/16/2015 12:00 PM EDT) Final Diagnosis [id number] ? Location: [facility] The signing pathologist has (i) examined the relevant preparation(s) for the specimen(s) and (ii) rendered or confirmed the diagnosis(es). . ?Surgical Pathology DIAGNOSIS Endometrial biopsy: ?? 1. Fragments of benign proliferative endometrium intermixed ?with benign endocervical and squamous mucosa and blood clot. ?? 2. No evidence of hyperplasia or endometritis. CR-0 09/23/15 LJT 09/23/15 Verified by: ? Darrick LI, Betsey Trejo ?Pathologist ?(Electronic Signature) The attending pathologist whose signature appears on this report has reviewed all diagnostic slides and has edited the gross and/or microscopic portion of the report in rendering the final pathologic diagnosis. CLINICAL INFORMATION Specimen Submitted: A - Endometrial curettings Clinical History: Menorrhagia Clinical Diagnosis: Rule out endometrial hyperplasia/cance r Referring Identifier: ??[id number] SPECIMEN PROCESSING A - Labeled/Fixative: Endometrial curettings, formalin. Quantity/Size: Fragments, 3.1 x 1.5 x 0.8 cm. Tissue Description: Kelsey-red soft tissue blood clot. Sections/Processi ng: Totally submitted. (T3) ??pps 09/23/2015 10:31 AM EDT [facility] ENDOMETRIAL STRUCTURE / Unknown 09/16/2015 12:00 PM EDT 09/16/2015 12:00 PM EDT Narrative Resulting Agency Comment Spec In Lab / [facility] Sherrell Schmidt MD PATHOLOGY/CYTOLOGY O [facility] [address] [place] [address] documented in this encounter Visit Diagnoses Not on filedocumented in this encounter Care Teams Staff Genetic Counselor Relationship Specialty Start Date End Date Amada Carson MD [address] [place] [address] PCP - General 11/18/14 06/08/18 documented as of this encounter
--- OUTSIDE RECORDS SUMMARY | 2024-01-13 18:59 | XMS_ITS | Encounter Summary ---
Author Organization Formerly [facility] [place] [address] Care Team Providers Care Executive Housekeeper Name Role Phone Unavailable Primary Care Provider Unavailabl e Reason for Visit * Reason Comments Cervicalgia Encounter Details Date Type Department Care Team (Latest Contact Info) Description 08/20/2012 7:00 AM EDT Procedure [place] [address] Maikol Willis MD [facility] [place] [address] Headache (Primary Dx) Discharge Disposition: Home Social History [...] Sign Reading Time Taken Comments Blood Pressure 120/76 08/20/2012 7:51 AM EDT Pulse 80 08/20/2012 7:51 AM EDT Temperature - - Respiratory Rate 16 08/20/2012 7:51 AM EDT Oxygen Saturation 100% 08/20/2012 7:51 AM EDT Inhaled Oxygen Concentration - - Weight 103.4 kg (228 lb) 08/20/2012 7:17 AM EDT Height 167.6 cm (5' 6) 08/20/2012 7:17 AM EDT Body Mass Index 36.8 08/20/2012 7:17 AM EDT documented in this encounter Patient Instructions * Patient Instructions* Oumou Moreira RN - 08/20/2012 7:27 AM EDT Pain Management Center Discharge Instructions: You were seen by Dr. Maikol Willis MD who performed lumbar puncture for pressure readint. [x] You may resume your normal activities: tomorrow. You may shower today. DO NOT tub bathe, use whirlpools, hot tubs or pool therapy for 2 days. RemoveBand-Aid(s) later today/tomorrow. Do not drive until tomorrow. Use caution walking/climbing stairs as you may be unsteady on your feet. You may use your usual medications, including pain medications, as directed, unless otherwise instructed. You may use an ice pack as needed for the first 24 hours, on for 20 minutes then off for 20 minutes. Do not apply heat today. Attempt to empty your bladder 4-6 hours after your procedure. You received the following medications: Lidocaine. During regular business hours, please phone the Pain Management Center at for appointments or with any questions or if the following or other troubling symptoms develop: 1) Prolonged dizziness or weakness (more than 1 day). 2) Localized swelling, redness or drainage at the injection site(s). 3) Temperature of 101 degrees that lasts for more than 4 hours. After 5 PM or on weekends, call and ask for Pain Clinic provider on-call. If you are unable to reach the Pain Management Center and have a complication, please call your Primary Care Provider or proceed to your local emergency department. Oumou Moreira RN Special instructions documented in this encounter Progress Notes * Oumou Moreira RN - 08/20/2012 7:18 AM EDT Pre-Procedure Screening Questions: 1. Status: No 2. 3. 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 Yes 4. Patient taking antibiotics at present? No 5. NPO per Pain Management Center protocol? No 6. 7. Patient diabetic: No __ borderline (not treated with medications) __ managed with oral medications __ managed with injected medications 8. Patient routinely taking anticoagulants ? No Date stopped Current INR Patient Vital Signs documented in Doc Flowsheets associated with this encounter. Patient Discharge Instructions were reviewed with patient and copy provided to patient. documented in this encounter Procedure Notes * Maikol Willis MD - 08/20/2012 8:06 AM EDTAssociated Order(s): DIAGNOSTIC LUMBAR PUNCTURE Lumbar Puncture Procedure Note Pre-operative Diagnosis: headache Post-operative Diagnosis: same Indications: Diagnostic Procedure Details Consent: Informed consent was obtained. Risks of the procedure were discussed including: infection,bleeding, pain and headache. Under sterile conditions the patient was positioned in lateral position and #22 5 Quinke needle with fluoroscopic guidance in AP and lateral. Cholrhexidine solution and sterile drapes were utilized.A spinal needle was inserted at the L4 - L5 interspace. Spinal fluid was obtained and sent to the laboratory. Findings 2cc of clear spinal fluid was obtained Opening Pressure: 17cm H2O pressure Closing Pressure 17cm H2O pressure Complications: None; patient tolerated the procedure well. Condition: stable Plan f/u with Dr. Nelson Bed Rest for 4 hours Tylenol 650 mg. for pain If severe headache, nausea, vomiting, fever >100.5 F or changes call office. documented in this encounter Plan of Treatment Not on file documented as of this encounter Procedures Procedure Name Priority Date/Time Associated Diagnosis Comments DIAGNOSTIC LUMBAR PUNCTURE Routine 08/20/2012 7:58 AM EDT Procedure Note - Maikol Willis MD - 08/20/2012 8:06 AM EDTThis note is in progress. Lumbar Puncture Procedure Note Pre-operative Diagnosis: headache Post-operative Diagnosis: same Indications: Diagnostic Procedure Details Consent: Informed consent was obtained. Risks of the procedure werediscussed including: infection, bleeding, pain and headache. Under sterile conditions the patient was positioned in lateral positionand #22 5 Quinke needle with fluoroscopic guidance in AP and lateral.Cholrhexidine solution and sterile drapes were utilized. A spinal needlewas inserted at the L4 - L5 interspace. Spinal fluid was obtained and sent to the laboratory. Findings 2cc of clear spinal fluid was obtained Opening Pressure: 17cm H2O pressure Closing Pressure 17cm H2O pressure Complications: None; patient tolerated the procedure well. Condition: stable Plan f/u with Dr. Nelson Bed Rest for 4 hours Tylenol 650 mg. for pain If severe headache, nausea, vomiting, fever >100.5 F or changes calloffice. documented in this encounter Visit Diagnoses Diagnosis Headache(784.0)- Primary Headache documented in this encounter
--- OUTSIDE RECORDS SUMMARY | 2024-01-13 18:59 | XMS_ITS | Encounter Summary ---
Author Organization [facility] [place] [address] Care Team Providers Care Electronics Processing Supervisor Name Role Phone Unavailable Primary Care Provider Unavailabl e Encounter Details Date Type Department Care Team (Latest Contact Info) Description 02/01/2014 6:23 AM EST - 02/01/2014 9:50 AM EST Hospital Encounter [place] [phone] Genevieve Ragsdale MD [facility] [place] [address] Exotropia Discharge Disposition: Home Social History Tobacco [...] Sign Reading Time Taken Comments Blood Pressure 126/75 02/01/2014 9:10 AM EST Pulse 75 02/01/2014 8:55 AM EST Temperature 36.2 ??C (97.2 ??F) 02/01/2014 8:55 AM ES T Respiratory Rate 16 02/01/2014 9:10 AM EST Oxygen Saturation 97% 02/01/2014 9:10 AM EST Inhaled Oxygen Concentration - - [...] closest emergency room or call the hospital locomotive crane operator helper at [phone] and ask for physician classification officer covering for your physician. Questions or problems after 5pm or on a weekend: Call the [facility] locomotive crane operator helper at and ask for the physician classification officer covering for your doctor. * Patient Instructions* Genevieve Ragsdale MD - 02/01/2014 8:49 AM EST Tobradex drops or ointment to right eye three times daily for 5 days. Ice packs (frozen peas) to right eye as needed for swelling or discomfort. Tylenol or ibuprofen as needed for pain (ybuy-iyj-apshrma). [place] tinged or bloody tears is normal. Crusting of the eyelids can be gently cleaned with a warm wet cloth. Call [phone] with any questions or concerns. documented in [...] Pre-Procedural H&P Patient Name: Kimberli Bales : [id number] 28 y.o. MR#: [id number] Chief Complaint: here for repeat eye muscle [...] Pre-Procedural H&P Patient Name: Kimberli Bales : [id number] 28 y.o. MR#: [id number] Chief Complaint: here for repeat eye muscle [...] Ragsdale MD - 02/01/2014 10:14 PM EST [facility] [place] Patient Name: Kimberli Bales : [id number] MR#: [id number] Case Date: 02/01/2014 Surgeon: Surgeon(s) and Role: [...] large hook followed by the Jeyson hook. The conjunctiva was eventually reflected into [...] by a large hook followed by the Alpha hook. Conjunctiva was reflected over the ball [...] Operative Note Patient Name: Kimberli Bales : [id number] MR#: [id number] Case Date: 02/01/2014 Surgeon: Surgeon(s) and Role: [...] MAR Action Action Date Dose Rate Site fentaNYL (PF) 50 mcg/mL 2mL syringe 25 mcg, Intravenous, EVERY 5 MIN PRN, Pain, for breakthrough pain, Starting on Sat02/01/14 at 0859, Until Sat02/01/14 at 1314, Hold for respiratory rate less than 10 per minute. Maximum dose: 250 mcg over one hour., PACU Recovery Given 02/01/2014 9:16 AM EST 25 mcg Given 02/01/2014 9:10 AM EST 25 mcg documented in this encounter Active and Recently Administered Medications Times are shown in EST. PRN Medication Order 01/30/2014 01/31/2014 02/01/2014 bacitracin-polymyxin b (POLYSPORIN) ophthalmic ointment (CANCELED) ONCE PRN, Starting on 02/01/14 at 0807, Until Sat02/01/14 at 1314, Intra-Operative (Intra-Procedure) 0807 (Given - Provid er: Genevieve Ragsdale MD [...]
--- OUTSIDE RECORDS SUMMARY | 2024-01-13 18:59 | XMS_ITS | Encounter Summary ---
Author Organization [place] [address] Care Team Providers Care Gleason Gear Generator Name Role Phone Amada Carson MD Primary Care Provider [phone] [phone] Encounter Details Date Type Department Care Team (Late st Contact Info) Description 08/19/2015 Abstract Nancy Javed Conversion Results [address] [place] [phone] Apd Conversion, Flowsheet Provider, Social History Tobacco [...] Sign Reading Time Taken Comments Blood Pressure 134/84 08/19/2015 1:34 PM EDT Shefali rced from [facility] Conversion Pulse - - Temperature - - Respiratory Rate - - Oxygen Saturation - - Inhaled Oxygen Concentration - - Weight - - Height - - Body Mass Index - - documented in this encounter Plan of Treatment Not on file documented as of this encounter Visit Diagnoses Not on filedocumented in this encounter Care Teams Gleason Gear Generator Relationship Specialty Start Date End Date Amada Carson MD [address] [place] [address] PCP - General 06/09/18 08/27/18 documented as of this encounter
--- OUTSIDE RECORDS SUMMARY | 2024-01-13 18:59 | XMS_ITS | Encounter Summary ---
Author Organization [facility] [place] [address] Care Team Providers Care Specialty Person Name Role Phone Unavailable Primary Care Provider Unavailabl e Encounter Details Date Type Department Care Team (Late Contact Info) Description 08/19/2012 Telephone [place] [phone] Joelle Monaco MD [facility] [place] [address] Social History Tobacco Use Types Packs/Day Years [...] encounter Miscellaneous Notes * Telephone Encounter - Daniele Augustin COMT - 08/19/2012 2:56 PM EDT After reviewing the patient's chart, and phoning the patient, I will ask that Dr Monaco review this request for an urgent referral. This patient has an eye doctor, with a DFE in late May without findings. The patient thinks that her Neurologist wants to send her to our clinic. Pt had an OP of 23 in May on 125 mg Diamox BID. Currently she is on 250 mg BID. Sent to Nilsa Oquendo and Dr Monaco to review for urgency. documented in this encounter Plan of Treatment Not on file documented as of this encounter Visit Diagnoses Not on filedocumented in this encounter
--- OUTSIDE RECORDS SUMMARY | 2024-01-13 18:59 | XMS_ITS | Encounter Summary ---
Author Organization Formerly [facility] [place] [address] Care Team Providers Care Bell Person Name Role Phone Amada Carson MD Primary Care Provider +1 [phone] Encounter Details Date Type Department Care Team (Late st Contact Info) Description 08/15/2012 Orders Only Radiology and Cardiology Results [address] [place] [phone] Apd Conversion, Results Provider, Social History Tobacco [...] Priority Date/Time Associated Diagnosis Comments TSH Routine 08/15/2012 documented in this encounter Results * (ABNORMAL) TSH (08/15/2012) Thyroid Stimulating Hormone 1.840(Ext ernal Lab) 0.358 - 3.74 GUALBERTO JAVED CONVERSION 08/15/2012 Results Provider Apd Conversion MD GAVINO GALARZA ORDERABLES GUALBERTO JAVED CONVERSION documented in this encounter Visit Diagnoses Not on filedocumented in this encounter Care Teams Bell Person Relationship Specialty Start Date End Date Amada Carson MD [address] [place] [address] PCP - General 06/09/18 08/27/18 documented as of this encounter
--- OUTSIDE RECORDS SUMMARY | 2024-01-13 18:59 | XMS_ITS | Encounter Summary ---
Author Organization [facility] Address One [facility] [place] [address] Care Team Providers Care Tax Expert Name Role Phone Amada Carson MD Primary Care Provider [phone] Encounter Details Date Type Department Care Team (Late st Contact Info) Description 08/03/2014 Interpretation Only Radiology 1 [facility] [place] [address] Unknown None Social History Tobacco Use Types [...] Comments US PELVIS AND TRANSVAGINAL COMPLETE Routine 08/03/2014 1:22 PM EDT documented in this encounter Results * US PELVIS AND TRANSVAGINAL COMPLETE (08/03/2014 1:22 PM EDT) Anatomical Region Laterality Modality Other 08/03/2014 1:22 PM EDT Narrative 08/03/2014 1:22 PM EDT APD Historical Result Principal Nutrition Representative: ??NAMRATA ??ESCHBACH PELVIC ULTRASOUND COMPLETE: INDICATION: ??A 28-year-old female with severe left pelvic pain. ??Last menstrual period June 18, 2014. ??Negative urine test, August 02, 2014, quantitative beta hCG equals 0 on August 03, 2014. History of tubal ligation. ??Evaluate for ectopic COMPARISON: ??CT abdomen and pelvis stone protocol, August 02, 2014. FINDINGS: Both transabdominal and endovaginal images are obtained. ??The uterus is anteverted. ??It measures 7.1 x 3.9 x 3.9 m. The endometrial stripe measures 2 mm. There is no free fluid in the cul-de-sac. Ovaries are normal in size and morphology. ??The right ovary measures 9.6 x 2.7 x 2.1 cm and the left ovary 1.5 x 2.8 x 2.4 cm. ??There is flow in both ovaries on Doppler exam. IMPRESSION: (1) Pelvic ultrasound within normal limits for a premenopausal female. ??(2) Findings discussed with Dr Carson by Dr Frank on August 03, 2014, at 2:15 p.m. Namrata Frank DO BETH/sandy [id number] CC: Procedure Note Unknown - 08/18/2018 APD Historical Result Principal Nutrition Representative: NAMRATA FRANK PELVIC ULTRASOUND COMPLETE: INDICATION: A 28-year-old female with severe left pelvic pain. Lastmenstrual period June 18, 2014. Negative urine test, August 02, 2014, quantitative beta hCGequals 0 on August 03, 2014. History of tubal ligation. Evaluate for ectopic COMPARISON: CT abdomen and pelvis stone protocol, August 02, 2014. FINDINGS: Both transabdominal and endovaginal images are obtained. The uterus isanteverted. It measures 7.1 x 3.9 x 3.9 m. The endometrial stripe measures 2 mm. There is no free fluid in the cul-de-sac. Ovaries are normal in size and morphology. The right ovary measures 9.6 x2.7 x 2.1 cm and the left ovary 1.5 x 2.8 x 2.4 cm. There is flow in both ovaries on Dopplerexam. IMPRESSION: (1) Pelvic ultrasound within normal limits for a premenopausalfemale. (2) Findings discussed with Dr Carson by Dr Frank on August 03, 2014, at2:15 p.m. Namrata Frank DO BETH/sandy [id number] CC: Unknown PACS IMAGES documented in this encounter Visit Diagnoses Not on filedocumented in this encounter Care Teams Tax Expert Relationship Specialty Start Date End Date Amada Carson MD [address] [place] [address] PCP - General 06/09/18 08/27/18 documented as of this encounter
--- OUTSIDE RECORDS SUMMARY | 2024-01-13 18:59 | XMS_ITS | Encounter Summary ---
Author Organization [facility] [place] [address] Care Team Providers Care Special Weapons Unit Officer Name Role Phone Unavailable Primary Care Provider Unavailabl e Reason for Visit * Reason Comments Strabismus Orthoptic pre-op vis it, here with Matias Encounter Details Date Type Department Care Team (Late st Contact Info) Description 12/16/2013 10:00 AM EDT Office [place] [address] Eusebia Villanueva CO Exotropia (Primary Dx) Discharge Disposition: Home Social [...] as of this encounter Progress Notes * Eusebia Villanueva CO - 12/17/2013 10:49 AM EDT Kimberli Bales is a 27 year old female with a history of a longstanding RXT. Over the past few years a change in fixation shows a shift to LXT, although still strongly prefers OS. This change in fixation is bothersome to patient. Strabismus surgery is scheduled with Dr. Walsh 12-31-13. Plan: 1.Repeat sensori-motor exam with Dr. Walsh to precede surgical date. 2.Review childhood photos to support history. documented in this encounter Plan of Treatment Not on file documented as of this encounter Procedures Procedure Name Priority Date/Time Associated Diagnosis Comments SENSORIMOTOR EXAM Routine 12/17/2013 10: 59 AM EDT Exotropia documented in this encounter Results * SENSORIMOTOR EXAM [NE SPECIAL EYE EXAM] - OU- BOTH EYES (12/17/2013 10:59 AM EDT) Anatomical Region Laterality Modality Other Narrative 12/17/2013 10:59 AM EDT See orthoptic note Procedure Note Eusebia Villanueva CO - 12/17/2013 See orthoptic note Genevieve Walsh MD OPHTHALMOLOGY SERVIC ES ORDERABLES documented in this encounter Visit Diagnoses Diagnosis Exotropia- Primary Exotropia, unspecified documented in this encounter
--- OUTSIDE RECORDS SUMMARY | 2024-01-13 18:59 | XMS_ITS | Encounter Summary ---
Author Organization [facility] [place] [address] Care Team Providers Care Home Health Manager Name Role Phone Unavailable Primary Care Provider Unavailabl e Encounter Details Date Type Department Care Team (Late st Contact Info) Description 09/09/2012 [place] [address] Joelle Monaco MD [facility] [place] [address] Social History Tobacco Use Types Packs/Day Years [...]
--- OUTSIDE RECORDS SUMMARY | 2024-01-13 19:00 | XMS_ITS | Encounter Summary ---
Author Organization [facility] [place] [address] Care Team Providers Care Ivf Embryologist Name Role Phone Amada Carson MD Primary Care Provider [phone] Encounter Details Date Type Department Care Team (Late st Contact Info) Description 04/17/2011 Orders Only Radiology and Cardiology Results [address] [place] [address] Apd Conversion, Results Provider, Social History Tobacco Use Types Packs/Day Years Used Date Smoking Tobacco: Former Cigarettes Q uit: 07/31/2009 Alcohol Use Standard Drinks/Week Comments No 0 (1 standard drink = 0.6 oz pur e alcohol) Comments Yes Sex and Gender Information Value Date Recorded Sex Assigned at Not on file Gender Identity Not on file Sexual Orientation Not on file documented as of this encounter Plan of Treatment Not on file documented as of this encounter Procedures Procedure Name Priority Date/Time Associated Diagnosis Comments URIC ACID Routine 04/17/2011 documented in this encounter Results * (ABNORMAL) Uric acid (04/17/2011) Uric Acid 5.5(Cut Out Stitcher al Lab) 2.6 - 7.2 GUALBERTO JAVED CONVERSION 04/17/2011 Results Provider Apd Conversion MD GAVINO GALARZA ORDERABLES GUALBERTO JAVED CONVERSION documented in this encounter Visit Diagnoses Not on filedocumented in this encounter Care Teams Ivf Embryologist Relationship Specialty Start Date End Date Amada Carson MD [address] [place] [address] PCP - General 06/09/18 08/27/18 documented as of this encounter
--- OUTSIDE RECORDS SUMMARY | 2024-01-13 19:00 | XMS_ITS | Encounter Summary ---
[place] [address] Care Team Providers Care Balance Wheel Screw Hole Driller Name Role Phone None Primary Care Provider Unavailabl e Encounter Details Date Type Department Care Team (Latest Contact Info) Description 03/31/2010 1:45 PM EST Clinical Support Obstetrics [place] [id number] NURSE, IT DESKTOP SUPPORT TECHNICIAN Discharge Disposition: Home Social History Tobacco Use Types Packs/Day Years Used Date Smoking Tobacco: Never Assessed Comments Yes Sex and Gender Information Value Date Recorded Sex Assigned at Not on file Gender Identity Not on file Sexual Orientation Not on file documented as of this encounter Plan of Treatment Not on file documented as of this encounter Visit Diagnoses Not on filedocumented in this encounter Care Teams Balance Wheel Screw Hole Driller Relationship Specialty Start Date End Date None None PCP - General 01/10/10 05/31/10 documented as of this encounter
--- OUTSIDE RECORDS SUMMARY | 2024-01-13 19:00 | XMS_ITS | Encounter Summary ---
Author Organization [facility] Address [facility] [place] [address] Care Team Providers Care Cryptanalyst Name Role Phone Unavailable Primary Care Provider Unavailabl e Reason for Visit * Reason Comments Advice Only NPW Encounter Details Date Type Department Care Team (Late st Contact Info) Description 02/08/2012 9:00 AM EST Office Visit Hematology and Oncology at [facility] [place] [address] Ewa Mauro MD [facility] [address] [place] [address] Bleeding (Primary Dx); Post-op bleeding Discharge Disposition: Home Social History Tobacco Use Types Packs/Day Years Used Date Smoking Tobacco: Former Alcohol Use Standard Drinks/Week Comments No 0 (1 standard drink = 0.6 oz pur e alcohol) Sex and Gender Information Value Date Recorded Sex Assigned at Not on file Gender Identity Not on file Sexual Orientation Not on file documented as of this encounter Last Filed Vital Signs Vital Sign Reading Time Taken Comments Blood Pressure 120/80 02/08/2012 8:48 AM EST Pulse 84 02/08/2012 8:48 AM EST Temperature 36.6 ??C (97.8 ??F) 02/08/2012 8:48 AM ES T Respiratory Rate 16 02/08/2012 8:48 AM EST Oxygen Saturation 97% 02/08/2012 8:48 AM EST Inhaled Oxygen Concentration - - Weight 110.7 kg (244 lb) 02/08/2012 8:48 AM EST Height 168 cm (5' 6.14) 02/08/2012 8:48 AM EST Body Mass Index 39.21 02/08/2012 8:48 AM EST documented in this encounter Progress Notes * Roengvoraphoj, Ewa, MD - 02/08/2012 8:56 AM EST [facility] Department of Medicine [place] [address] [facility] HEMOSTASIS CONSULTATION DATE OF VISIT 02/08/2012 Patient Kimberli Bales 1985 REFERRING PHYSICIAN GEORGE KIM MD PRIMARY CARE PHYSICIAN GEORGE KIM MD REASON FOR CONSULTATION Evaluation of bleeding disorder HISTORY OF THE PRESENT ILLNESS Kimberli Bales is a 26 y.o. woman with history of postoperative bleeding following section, who is seen in consultation at the request of GEORGE KIM MD for evaluation of bleeding disoder. The history is obtained from the patient, and I have reviewed extensive medical records p rovided by the referring physician and located in the electronic medical record to fill in gaps in the patient's recollection of events, treatments and outcomes. She underwent a section for her second child on April 24 2011. The following day shecouldnot get up and felt a chest pressure.She recalled that her drainage from the surgical site kept filling over night. She was brought back to the operation room on the following day and was found to have an internal bleeding. She received a total of 6 units of packed red blood cells within the 24 hours. She was hospitalized for 9 days at [facility]. She also had a history of postoperative bleeding following her first on March 25 2010. She developed wound hematoma and cellulitis. It took about 2 months until her wound was completelyhealed. She denies Menorrhagia as a a young teenager. However,she was on an oral contraceptive Ortho Tricyclen for contraception since the age of 17 and switched to depot injection a few months prior . After discontinuing those, her menstrual period lasted longer about 8-9 days instead of 4 days and she had to change her pad more frequently from 2 pads/day to 4 pads/day. Following both pregnancies she had bleeding for about 2 months. Currently she is not on any oral contraception and her menstrual period is heavier than used to be. She had to change 6-8 pads/day and it would last about 7 days. She also has some vaginal spotting. She had a tubal ligation. She had a wisdom tooth extraction in the past and bled for 4-5 days. In May 2009 she had a severesinus infection that required a surgery. She recalled that she bled for 4-5 days following the procedure. She had small tattoos done on her left wrist and both ankles. She had tattoos done at the same timeas her . Although his tattoo was a lot bigger than hers, his bleeding has stopped within a few hours and hers continued to bleed for 2 days. She denies any history of easy bruising. When she was a child, she had a nose bleed that required packing once. She has noticed that she has been having epitaxis frequently this year. Almost 5 days/week and sometimes she would have a clot coming out. 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 She is not aware that she bleeds longer than others when she cut herself. She denies any NSAIDs use. PAST MEDICAL HISTORY Headache OPERATIVE PROCEDURES Crowder tooth extraction C-sections OBSTETRIC HISTORY MEDICATIONS Diamox MVI ADVERSE DRUG REACTIONS Allergies as of 02/08/2012 - Review Complete 02/08/2012 Allergen Reaction Noted ??? Red dye ??? Percocet (oxycodone-acetaminophen) 02/08/2012 FAMILY HISTORY Paternal grandmother of brain aneurysm at 43. She had a hysterectomy(not sure for which reason) Mother - healthy Father - hypertension No bleeding history 1 brother healthy Paternal aunt of breast cancer 1980 and was in remission until 2009 Maternal grandfather of colon cancer at the age of 75 SOCIAL HISTORY 2 daughters 9 and 21 months Own a restaurant in [place] Lives in [place] No tobacco Alcohol rare REVIEW OF SYSTEMS Fevers/chills/sweats No Recent infections No Unexplained weight loss No Headache/lightheadedness/syncope Headache improved on diamox Sinus pain/pressure No Oral sores/lesions/bleeding No Sore throat/dysphagia No Nosebleeds Yes Cough/SOB/chest pain/heart racing No Nausea/vomiting/dyspepsia No Abdominal pain No Diarrhea/constipation/rectal bleeding No Urinary pain, burning, incontinence No Hematuria No Vaginal discharge/bleeding No Skin rashes/ulcers No Back/joint pain/swelling No Leg swelling/pain/redness No Bruising/petechiae/bleeding/melena Post op bleeding Sensory/motor No Polydipsia/polyuria/heat/cold intol No Lumps/bumps/swollen glands No Other Negative except as above PHYSICAL EXAMINATION BP 120/80 Pulse 84 Temp(Src) 36.6 ??C (97.8 ??F) (Oral) Resp 16 Ht 168 cm (5' 6.14) Wt 110.678 kg (244 lb) BMI 39.21 kg/m2 SpO2 97% ? Unknown GENERAL: Well-appearing, articulate white female. HEENT: Oropharynx clear; no mucosal lesions, petechiae, bleeding, thrush or ulcers. NECK: Supple; no cervical, supraclavicular or submental adenopathy. BREASTS: Exam deferred. CHEST/LUNGS: Clear to auscultation/percussion. No rales, rhonchi, wheezes. HEART: Regular rate and rhythm; no murmur, rub, gallop GASTROINTESTINAL: Abdomen soft, non-tender, no hepatosplenomegaly. GENITOURINARY: Exam deferred. EXTREMITIES: No clubbing, cyanosis or edema. No erythema, tenderness or palpable cords. No venous varicosities. No skin discoloration or hemosiderin deposits. Peripheral pulses palpable. MUSCULOSKELETAL: Spine nontender. Full ROM all joints. No acutely inflamed joints. SKIN: No ecchymoses, petechiae, ulcers or rashes. LYMPH: No palpable lymph nodes. NEUROLOGIC: Alert, oriented. Speech clear, coherent. No focal deficits noted. PSYCHIATRIC: Appropriate affect, no apparent distress. LABORATORY STUDIES Pending RADIOGRAPHIC STUDIES None IMPRESSION Kimberli Bales is a 26 y.o. woman with history of postoperative bleeding who is here for evaluation of bleeding disorder. Her bleeding history occurs mostly following invasive procedures. She had significant bleeding following two sections. She required 6 units of packed red blood cell during her last bleeding episode which triggered this evaluation. She also had prolonged bleeding following oral surgery and wisdom tooth extraction. However, she has not had much of a bleeding or bruising history on her daily life until recently. She has no menorrhagia previously, but recently following the she has noticed heavier menstrual period. Also she is currently not on oral contraceptive which might have slow down her menstruation prior . Also she has not had frequent epistaxis when she was younger, but just recently. Her bleeding history including prolonged bleeding after procedures and mucotaneous bleeding is more consistent with primary hemostasis disorder which involves platelets, blood vessel wall and von Willebrand factor than secondary hemostasis disorder. Today we will perform laboratory testing to rule out platelet dysfunction and von Willebrand disease. I will also test her for factor XI deficiency which usually causes little spontaneous bleeding but invasive procedures can cause excessive bleeding. PLAN/RECOMMENDATIONS Lab testing: CBC, PFA-100, von Willebrand antigen/ activity, factor 8 level and factor 11 level Kimberli Bales had the opportunity to ask questions and indicated that all her questions were answered to her satisfaction. She will follow up with me in approximately three weeks to discuss the results of the hemostasis testing, and I will finalize my recommendations at that time. Ewa Garcia MD Instructor of medicine, [facility] documented in this encounter Plan of Treatment Not on file documented as of this encounter Procedures Procedure Name Priority Date/Time Associated Diagnosis Comments SAVE PLASMA FOR FUTURE COAG STUDIES Routine 02/08/2012 9:53 AM EST Bleeding DIFFERENTIAL, AUTOMATED Routine 02/08/2012 9:53 AM EST VON WILLEBRAND FACTOR ANTIGEN Routine 02/08/2012 9:53 AM EST Bleeding VON WILLEBRAND FACTOR ACTIVITY Routine 02/08/2012 9:53 AM EST Bleeding APTT Routine 02/08/2012 9:53 AM EST Bleeding THROMBIN TIME Routine 02/08/2012 9:53 AM EST Bleeding PROTHROMBIN TIME Routine 02/08/2012 9:53 AM EST Bleeding PLATELET FUNCTION TEST ([facility]) Routine 02/08/2012 9:53 AM EST Bleeding FIBRINOGEN Routine 02/08/2012 9:53 AM EST Bleeding FACTOR 11 ASSAY Routine 02/08/2012 9:53 AM EST Bleeding FACTOR 8 ASSAY Routine 02/08/2012 9:53 AM EST Bleeding CBC (WITH DIFF) Routine 02/08/2012 9:53 AM EST Bleeding documented in this encounter Results * Differential, Automated (02/08/2012 9:53 AM EST) Neutrophil % 55.6 34.0 - 71.0 % [facility] Neutrophil Absolute 3.09 1.50 - 6.30 x10(3)/mcL [facility] MILLENNI[facility] Lymph % 36.6 19.0 - 53.0 % CERNER MILLENNIUM Lymphocytes Abs 2.0 1.0 - 3.6 x10(3)/mcL [facility]ERN[facility] MILLENNIUM Monocyte % 5.8 4.0 - 13.0 % CERNER MILLENNIUM Monocyte Abs 0.3 0.2 - 1.0 x10(3)/mcL CERN[facility] MILLENNIUM Eos % 1.6 0.0 - 7.0 % CERNER MILLENNIUM Eosinophils Abs 0.1 0.0 - 0.5 x10(3)/mcL CERN[facility] MILLENNIUM Basophil % 0.4 0.0 - 2.0 % CERNER MILLENNIUM Baso Absolute 0.0 0.0 - 0.2 x10(3)/mcL [facility]ERN[facility] MILLENNIUM Immature Gran % 0.00 0.00 - 0.66 % CERNER MILLENNIUM Comment: Immature granulocytes(IG's)percentage and absolute count will include metamyelocytes, myelocytes, and promyelocytes. Blood smears from CBCs yielding IG's will be scanned manually for concordance. If this scan disagrees with the automated IG or if promyelocytes are noted, a manual differential will be performed. Immature Gran Absolute 0.00 0.00 - 0.05 x10(3)/mcL [facility] MILLENNIUM Blood specimen (specimen) 02/08/2012 9:53 AM EST 02/08/2012 10:02 AM EST Ewa Mauro MD HEMATOLOGY ORDERABLE S [facility] * CBC (with Diff) (02/08/2012 9:53 AM EST) [facility] White Blood Cell 5.6 4.0 - 10.0 x10(3)/mcL [facility] Red Blood Cell 4.51 3.93 - 5.22 x10(6)/mcL [facility] Hemoglobin 13.3 11.2 - 15.7 gm/dL [facility] Hematocrit 39.3 34.0 - 45.0 % CERNER MILLENNIUM Mean Cell Volume 87.1 79.0 - 94.0 fL CERN[facility] MILLENNIUM Mean Cell Hemoglobin 29.5 26.6 - 32.2 pg [facility] Mean Cell Hemoglobin Concentration 33.8 32.0 - 36.5 gm/dL [facility] Platelet 223 145 - 370 x10(3)/mcL [facility] RDW Standard Deviation 42.0 35.0 - 46.0 fL CERN[facility] MILLENNIUM RDW coefficient of variation 13.1 10.9 - 14.4 % [facility]ERN[facility] MILLENNIUM Mean Platelet Volume 9.6 9.0 - 12.0 fL [facility] Blood specimen (specimen) 02/08/2012 9:53 AM EST 02/08/2012 10:02 AM EST Narrative Resulting Agency Comment Spec In Lab Ewa Mauro MD HEMATOLOGY ORDERABLE S Performing Organization Address [facility]/ZIP Co de Phone Number [facility] * Save Plasma for future Coag Studies (02/08/2012 9:53 AM EST) [facility] Save Plasma Sample saved in Lab [facility] Blood specimen (specimen) 02/08/2012 9:53 AM EST 02/08/2012 10:02 AM EST Ewa Mauro MD HEMATOLOGY ORDERABLE S [facility] * (ABNORMAL) Factor 11 assay (02/08/2012 9:53 AM EST) [facility] Factor XI Assay 186(H) 50 - 150 % CERNER MILLENNIUM Blood specimen (specimen) 02/08/2012 9:53 AM EST 02/08/2012 10:02 AM EST Narrative Resulting Agency Comment Spec In Lab Ewa Mauro MD HEMATOLOGY ORDERABLE S Performing Organization Address City/[facility] de Phone Number [facility] * Factor 8 assay (02/08/2012 9:53 AM EST) Factor VIII Assay 106 50 - 150 % [facility] Blood specimen (specimen) 02/08/2012 9:53 AM EST 02/08/2012 10:02 AM EST Narrative Resulting Agency Comment Spec In Lab Ewa Mauro MD HEMATOLOGY ORDERABLE S Performing Organization Address [facility] de Phone Number [facility] * Von Willebrand Factor Activity (02/08/2012 9:53 AM EST) Von Willebrand Factor Assay 85 50 - 150 % activity [facility] Blood specimen (specimen) 02/08/2012 9:53 AM EST 02/08/2012 10:02 AM EST Narrative Resulting Agency Comment Spec In Lab Ewa Mauro MD HEMATOLOGY ORDERABLE S Performing Organization Address [facility] de Phone Number [facility] * Von Willebrand Factor Antigen (02/08/2012 9:53 AM EST) von Willebrand Factor Antigen 93 % [facility] vWF Anti Interp ABO blood group has a significant influence on vWF:Ag levels in normal individuals*. ??Type O individuals have the lowest mean levels: 75% (range:36-157% 2SD). ??* Sylvia VASQUEZ, et. al. ??The Effect of ABO Blood Group on the Diagnosis of von Willebrand Disease. ??Blood, 1987:69(6) : 4770-6147 [facility]ILL[facility]NI[facility] Blood specimen (specimen) 02/08/2012 9:53 AM EST 02/08/2012 10:02 AM EST Narrative Resulting Agency Comment Spec In Lab Ewa Mauro MD HEMATOLOGY ORDERABLE S Performing Organization Address City/[facility] Co de Phone Number [facility] * Fibrinogen (02/08/2012 9:53 AM EST) Fibrinogen 399 220 - 480 mg/dL [facility] MILLENNI[facility] Blood specimen (specimen) 02/08/2012 9:53 AM EST 02/08/2012 10:02 AM EST Narrative Resulting Agency Comment Spec In Lab Ewa Mauro MD HEMATOLOGY ORDERABLE S Performing Organization Address [facility] de Phone Number [facility] * Thrombin time (02/08/2012 9:53 AM EST) Thrombin Time 15 15 - 20 sec [facility] MILLENNI[facility] Blood specimen (specimen) 02/08/2012 9:53 AM EST 02/08/2012 10:02 AM EST Narrative Resulting Agency Comment Spec In Lab Ewa Mauro MD HEMATOLOGY ORDERABLE S Performing Organization Address [facility] de Phone Number [facility] * Prothrombin Time (02/08/2012 9:53 AM EST) Prothrombin Time 13.0 11.9 - 14.7 sec CERNER MILLENNIUM Comment: [facility] Transfusion Committee Guidelines: INR less than 2.0, PTT less than OR equal to 43.5 seconds, or Fibrinogen greater than or equal to 100 mg/dl indicate adequate procoagulant activity for hemostasis in patients without underlying bleeding disorders. International Normalization Ratio 1.0 0.9 - 1.1 [facility] MILLENNIUM Blood specimen (specimen) 02/08/2012 9:53 AM EST 02/08/2012 10:02 AM EST Narrative Resulting Agency Comment Spec In Lab Ewa Mauro MD HEMATOLOGY ORDERABLE S Performing Organization Address City/[facility] Co de Phone Number [facility] * Platelet function analysis (02/08/2012 9:53 AM EST) Col/Epi 153 90 - 160 sec [facility]ERNER MILLENNIUM Comment: Col/Epi Normal and Col/ADP Normal Platelet function is normal. If patient history/physical examination gives strong indication of bleeding disorder repeat testing for confirmation. If still normal, consider testing for factor deficiencies. Col/Epi Abnormal and Col/ADP Normal This pattern is indicative of drug induced platelet dysfunction. Most commonly seen after aspirin ingestion. Review patient chart information for prescription and non-prescription medication. Col/Epi Abnormal and Col/ADP Abnormal Platelet function is abnormal. This pattern is most commonly seen in patients with von Willebrand disease or congenital platelet defects. Prolongation of the Col/ADP closure time generally indicates a more extensive qualitative platelet defect and/or an abnormality in von Willebrand factor. If the patient is not anemic, thrombocytopenic or has cardiovascular or renal disease, the underlying reason for the abnormality should be determined. Most patients with prolonged Col/ADP closure times manifest abnormalities in primary hemostasis that could potentially place them at an increased risk of bleeding during a surgical procedure. Col/ADP 97 50 - 120 sec [facility] [employer] Blood specimen (specimen) 02/08/2012 9:53 AM EST 02/08/2012 11:04 AM EST Narrative Resulting Agency Comment Spec In Lab Ewa Mauro MD HEMATOLOGY ORDERABLE S Performing Organization Address [facility] Phone Number [facility] * APTT (02/08/2012 9:53 AM EST) Partial Thromboplastin Time 29 25 - 35 sec [facility] [employer] Comment: Recommended therapeutic PTT range for full dose unfractionated heparin is 80-114 seconds. Blood specimen (specimen) 02/08/2012 9:53 AM EST 02/08/2012 10:02 AM EST Narrative Resulting Agency Comment Spec In Lab Ewa Mauro MD HEMATOLOGY ORDERABLE S Performing Organization Address [facility] Phone Number [facility] [employer] documented in this encounter Visit Diagnoses Diagnosis Bleeding- Primary Hemorrhage, unspecified Post-op bleeding Hemorrhage complicating a procedure documented in this encounter
--- OUTSIDE RECORDS SUMMARY | 2024-01-13 19:00 | XMS_ITS | Encounter Summary ---
Author Organization [facility] [place] [address] Care Team Providers Care Test Specialist Name Role Phone Amada Carson MD Primary Care Provider [phone] Encounter Details Date Type Department Care Team (Late st Contact Info) Description 06/18/2011 Orders Only Radiology and Cardiology Results [address] [place] [id number] Apd Conversion, Results Provider, Social History Tobacco [...] Procedure Name Priority Date/Time Associated Diagnosis Comments CYTOPATHOLOGY GYNECOLOGICAL Routine 06/18/2011 documented in this encounter Results * (ABNORMAL) Cytopathology Gynecological (06/18/2011) Rug Dyer Helper Cytology Final Report Please see Nancy Javed legacy report(Exte rnal Lab) NANCY JAVED CONVERSION 06/18/2011 Narrative NANCY JAVED CONVERSION - 06/21/2011 Please see Nancy Javed Legacy report Results Provider Apd Conversion PATHO LOGY/CYTOLOGY ORDERABLES NANCY JAVED CONVERSION documented in this encounter Visit Diagnoses Not on filedocumented in this encounter Care Teams Test Specialist Relationship Specialty Start Date End Date Amada Carson MD [address] [place] [address] PCP - General Family Medicine 08/28/18 01/21/20 documented as of this encounter
--- OUTSIDE RECORDS SUMMARY | 2024-01-13 19:00 | XMS_ITS | Encounter Summary ---
Author Organization [facility] Address [facility] [place] [address] Care Team Providers Care Handbag Finisher Name Role Phone Unavailable Primary Care Provider Unavailabl e Encounter Details Date Type Department Care Team (Late st Contact Info) Description 05/21/2012 [place]phone [place] [id number] Eusebia Nelson MD [facility] [place] [address] Social History Tobacco Use Types Packs/Day Years Used Date Smoking Tobacco: Former Smokeless Tobacco: Never Alcohol Use Standard Drinks/Week Comments No 0 (1 standard drink = 0.6 oz pur e alcohol) Sex and Gender Information Value Date Recorded Sex Assigned at Not on file Gender Identity Not on file Sexual Orientation Not on file documented as of this encounter Miscellaneous Notes * Telephone Encounter - Eusebia Nelson - 05/21/2012 12:28 PM EDT Called patient back at 12:15pm 21 May 2012 Patient is c/o sever MCGARRY since the LP worse with sitting up Tried caffeine, lying flat staying hydrated Assessment: post LP MCGARRY Will arrange an OP Blood patch Eusebia Nelson MD Neurology Resident Pager [phone] * Telephone Encounter - Ciarra Copeland - 05/21/2012 8:35 AM EDT Patients calls to say that the pt has been having severe headaches since Saturday and they are unbearable since her LP. Pt has been taking Advil and it has not helped at all. Please call as soon as possible to discuss options. documented in this encounter Plan of Treatment Not on file documented as of this encounter Visit Diagnoses Not on filedocumented in this encounter
--- OUTSIDE RECORDS SUMMARY | 2024-01-13 19:00 | XMS_ITS | Encounter Summary ---
Author Organization [facility] [place] [address] Care Team Providers Care Mixing Plant Dumper Name Role Phone None Primary Care Provider Unavailabl e Encounter Details Date Type Department Care Team (Latest Contact Info) Description 04/02/2010 5:35 PM EST - 04/04/2010 6:41 PM EST [place] [phone] Jerardo Anderson MD [facility] [address] OBSTETRICS [place] [address] Discharge Disposition: Home with [facility] Social History Tobacco Use Types Packs/Day Years [...] - Inhaled Oxygen Concentration - - Weight 127.9 kg (281 lb 15.9 oz) 2009 11:17 AM EDT Height 167.6 cm (5' 6) 08/25/2009 11:1 7 AM EDT Body Mass Index 45.51 08/25/2009 11:17 AM EDT documented in this encounter Plan of Treatment Not on file documented as of this encounter Procedures Procedure Name Priority Date/Time Associated Diagnosis Comments DIFFERENTIAL, AUTOMATED Routine 04/03/2010 4:45 AM EST CBC (WITH DIFF) Routine 04/03/2010 4:45 AM EST DIFFERENTIAL, AUTOMATED STAT 04/02/2010 7:30 PM EST CBC (WITH DIFF) STAT 04/02/2010 7:30 PM EST SKIN/SUP WOUND CULTURE Routine 04/02/2010 6:05 PM EST documented in this encounter Results * (ABNORMAL) REFLEX LAB-A-DIFF (04/03/2010 4:45 AM EST) Neutrophil % 61.7 34.0 - 71.0 % CERNER MILLENNIUM Neutrophil Absolute 5.36 1.50 - 6.30 x10(3)/mc L CERNER MILLENNIUM Lymph % 26.3 19.0 - 53.0 % CERNER MILLENNIUM Lymphocytes Abs 2.3 1.0 - 3.6 x10(3)/mc L CERNER MILLENNIUM Monocyte % 7.9 4.0 - 13.0 % CERNER MILLENNIUM Monocyte Abs 0.7 0.2 - 1.0 x10(3)/mc L CERNER MILLENNIUM Eos % 1.6 0.0 - 7.0 % CERNER MILLENNIUM Eosinophils Abs 0.1 0.0 - 0.5 x10(3)/mc L CERNER MILLENNIUM Basophil % 0.5 0.0 - 2.0 % CERNER MILLENNIUM Baso Absolute 0.0 0.0 - 0.2 x10(3)/mc L CERNER MILLENNIUM Immature Gran % 2.00(H) 0.00 - 0.66 % CERNER MILLENNIUM Comment: Immature granulocytes(IG's)percentage and absolute count will include metamyelocytes, myelocytes, and promyelocytes. Blood smears from CBCs yielding IG's will be scanned manually for concordance. If this scan disagrees with the automated IG or if promyelocytes are noted, a manual differential will be performed. Immature Gran Absolute 0.17(H) 0.00 - 0.05 x10(3)/mc L CERNER MILLENNIUM Blood specimen (specimen) 04/03/2010 4:45 AM EST 04/03/2010 4:54 AM EST Darrel Zazueta MD HEMATOLOGY ORDERABLE S CERNER MILLENNIUM * (ABNORMAL) CBC (04/03/2010 4:45 AM EST) White Blood Cell 8.7 4.0 - 10.0 x10(3)/mcL CERNER MILLENNIUM Red Blood Cell 3.44(L) 3.93 - 5.22 x10(6)/mcL CERNER MILLENNIUM Hemoglobin 9.5(L) 11.2 - 15.7 gm/dL CERNER MILLENNIUM Hematocrit 30.0(L) 34.0 - 45.0 % CERNER MILLENNIUM Platelet 344 145 - 370 x10(3)/mcL CERNER MILLENNIUM RDW Standard Deviation 44.9 35.0 - 46.0 fL CERNER MILLENNIUM RDW coefficient of variation 14.1 10.9 - 14.4 % CERNER MILLENNIUM Mean Platelet Volume 8.7(L) 9.0 - 12.0 fL CERNER MILLENNIUM Blood specimen (specimen) 04/03/2010 4:45 AM EST 04/03/2010 4:54 AM EST Darrel Zazueta MD HEMATOLOGY ORDERABLE S CERNER MILLENNIUM * (ABNORMAL) REFLEX LAB-A-DIFF (04/02/2010 7:30 PM EST) Neutrophil % 60.7 34.0 - 71.0 % CERNER MILLENNIUM Neutrophil Absolute 6.77(H) 1.50 - 6.30 x10(3)/mc L CERNER MILLENNIUM Lymph % 26.1 19.0 - 53.0 % CERNER MILLENNIUM Lymphocytes Abs 2.9 1.0 - 3.6 x10(3)/mc L CERNER MILLENNIUM Monocyte % 9.5 4.0 - 13.0 % CERNER MILLENNIUM Monocyte Abs 1.1(H) 0.2 - 1.0 x10(3)/mc L CERNER MILLENNIUM Eos % 1.4 0.0 - 7.0 % CERNER MILLENNIUM Eosinophils Abs 0.2 0.0 - 0.5 x10(3)/mc L CERNER MILLENNIUM Basophil % 0.4 0.0 - 2.0 % CERNER MILLENNIUM Baso Absolute 0.0 0.0 - 0.2 x10(3)/mc L CERNER MILLENNIUM Immature Gran % 1.90(H) 0.00 - 0.66 % CERNER MILLENNIUM Comment: Immature granulocytes(IG's)percentage and absolute count will include metamyelocytes, myelocytes, and promyelocytes. Blood smears from CBCs yielding IG's will be scanned manually for concordance. If this scan disagrees with the automated IG or if promyelocytes are noted, a manual differential will be performed. Immature Gran Absolute 0.21(H) 0.00 - 0.05 x10(3)/mc L CERNER MILLENNIUM Blood specimen (specimen) 04/02/2010 7:30 PM EST 04/02/2010 8:07 PM EST Darrel Zazueta MD HEMATOLOGY ORDERABLE S CERNER MILLENNIUM * (ABNORMAL) CBC (04/02/2010 7:30 PM EST) White Blood Cell 11.2(H) 4.0 - 10.0 x10(3)/mcL CERNER MILLENNIUM Red Blood Cell 3.45(L) 3.93 - 5.22 x10(6)/mcL CERNER MILLENNIUM Hemoglobin 9.8(L) 11.2 - 15.7 gm/dL CERNER MILLENNIUM Hematocrit 30.1(L) 34.0 - 45.0 % CERNER MILLENNIUM Platelet 429(H) 145 - 370 x10(3)/mcL CERNER MILLENNIUM RDW Standard Deviation 44.5 35.0 - 46.0 fL CERNER MILLENNIUM RDW coefficient of variation 14.0 10.9 - 14.4 % CERNER MILLENNIUM Mean Platelet Volume 9.3 9.0 - 12.0 fL CERNER MILLENNIUM Blood specimen (specimen) 04/02/2010 7:30 PM EST 04/02/2010 8:07 PM EST Darrel Zazueta MD HEMATOLOGY ORDERABLE S ROBBY CASTLE * WOUND CULTURE, SKIN/SUPERFICIAL (04/02/2010 6:05 PM EST) Skin/Superfic ial Wound Culture ? Patient Name: CAMILA LEDESMA ?Ordered By: DARREL ZAZUETA ? MR#: [id number] ?LOC: ??BP ? /Sex: ??1985 (24 years), ? Female ? PROCEDURE: Skin/Superficial Wound Culture ?SOURCE: Swab(s) ? COLLECTED: 04/02/2010 18:05 ? BODY SITE: Abdomen ? STARTED: 04/02/2010 19:28 ? STAINS / PREPARATIONS ? Gram Stain Report ? Verified:04/02/19 11 19:57 ? Many White Blood Cells seen ? Reviewed Stain Report ? Verified:04/02/19 11 19:58 ? Many White Blood Cells seen ? No microorganisms seen. ? FINAL REPORT ? Final Report ? Verified:04/04/19 11 11:48 ? Few Escherichia coli ? Few mixed bacterial morphotypes suggestive of normal cutaneous isaias ? PRELIMINARY REPORT ? Preliminary Report ? Verified:04/03/19 11 06:52 ? Few Gram Negative Rods ? Patient: CAMILA LEDESMA ? MR#: [id number] ? SUSCEPTIBILITY RESULTS ? Escherichia coli ?ROSIBEL Interp ? Ampicillin ? R ? Ampicillin/Sulbac cunningham ? I ? Aztreonam ?S ? Cefotetan ?S ? Ceftazidime ?S ? Ceftriaxone ?S ? Cefuroxime ? S ? Ciprofloxacin ?S ? Ertapenem ?S ? Gentamicin ? S ? Meropenem ?S ? Piperacillin ? R ? Piperacillin/Tazo bactam ?S ? Trimethoprim/Sulf a ? S ? Tetracycline ? R ? Tobramycin ? S ? S=Susceptible ??I=Intermediate ??R=Resistant ??NA=Not Applicable ? DDS=Dose dependent-suscept ible ??NS=Non-suscepti ble ? SAVANANER MILLENNIUM Swab (specimen) ABDOMEN / Unknown 011 6:05 PM EST 04/02/2010 7:25 PM EST Darrel Zazueta MD MICROBIOLOGY - GENER AL ORDERABLES ROBBY TAYLORBANNERIUM documented in this encounter Visit Diagnoses Not on filedocumented in this encounter Active and Recently Administered Medications Care Teams Mixing Plant Dumper Relationship Specialty Start Date End Date None None PCP - General 01/10/10 05/31/10 documented as of this encounter
--- OUTSIDE RECORDS SUMMARY | 2024-01-13 19:00 | XMS_ITS | Encounter Summary ---
Author Organization [facility] Address [facility] [place] [address] Care Team Providers Care Sandwich Maker Name Role Phone Gabrielle Pelaez APRN Primary Care Provider [phone] Reason for Visit * Reason Comments Care wound check Encounter Details Date Type Department Care Team (Latest Contact Info) Description 06/12/2010 11:20 AM EDT Visit Obstetrics [place] [address] Iman Nation, [facility] OBSTETRICS & [place] [address] Discharge Disposition: Home Social History Tobacco Use Types Packs/Day Years Used Date Smoking Tobacco: Former Cigarettes Q uit: 07/31/2009 Alcohol Use Standard Drinks/Week Comments Not Asked 0 (1 standard drink = 0.6 oz pur e alcohol) Sex and Gender Information Value Date Recorded Sex Assigned at Not on file Gender Identity Not on file Sexual Orientation Not on file documented as of this encounter Last Filed Vital Signs Vital Sign Reading Time Taken Comments Blood Pressure 118/68 06/12/2010 11:20 AM EDT Pulse - - Temperature 36.7 ??C (98 ??F) 06/12/2010 11:20 AM EDT Respiratory Rate - - Oxygen Saturation - - Inhaled Oxygen Concentration - - Weight - - Height - - Body Mass Index - - documented in this encounter Plan of Treatment Not on file documented as of this encounter Visit Diagnoses Not on filedocumented in this encounter Care Teams Sandwich Maker Relationship Specialty Start Date End Date Gabrielle Pelaez APRN [address] [place] [address] PCP - General 06/01/10 02/04/12 documented as of this encounter
--- OUTSIDE RECORDS SUMMARY | 2024-01-13 19:00 | XMS_ITS | Encounter Summary ---
Author Organization [facility] Address [facility] [place] [address] Care Team Providers Care Dynamics Ax Consultant Name Role Phone Amada Carson MD Primary Care Provider [phone] Encounter Details Date Type Department Care Team (Late st Contact Info) Description 12/05/2010 Interpretation Only Radiology [address] [facility] [place] [address] Unknown None Social History Tobacco Use Types [...] Name Priority Date/Time Associated Diagnosis Comments US OB SCREENING MORPHOLOGY Routine 12/05/2010 3:45 PM EDT documented in this encounter Results * US OB Screening Morphology (12/05/2010 3:45 PM EDT) Anatomical Region Laterality Modality Pelvis, Abdomen Ultrasound 12/05/2010 3:45 PM EDT Narrative 12/05/2010 3:45 PM EDT APD Historical Result Principal Examination Grader: ??ALVA ??ANISHA Trevino [facility] OBSTETRICAL ULTRASOUND REPORT ? -------- Pat. Name: BALTAZAR CAMIAL Waldrop ? Study Date: ?? 12/05/2010 4:56pm Pat. No: ?? [id number] ?Referring MD: MEERA^ELSIE LMP: ? 07/27/2010 ?Java Developer Analyst: ??KEVIN MENA GA by LMP: 18.7 weeks ?, Age: ? 1985, 24 GA by 1st: 17.6 weeks ?GA Selected: ??17.6 weeks (From First U) GA by US: ??18.5 weeks ?SOO: ?05/11/2011 Hist/Ind: ?? SURVEY -------- MEASUREMENTS & AGE ? GROWTH EVALUATION Measurement ?? GA ? Range ?Source ?? % for 17.6 Ratios ------- ------- ?? BPD ??4.2 cm 18.6 wk (16.9-20.3) Hadlock ??BPD ??75% ?? CI ? 0.75 (0.70 - 0.86) HC ??15.4 cm 18.4 wk (16.9-19.9) Hadlock ??HC ?? 73% GA for sonogram 18.5 wk (16.9-20.1) ? Weight Estimate: based on (BPD,HC) Avg ?Weight: ??gm (-) -------- CLINICAL SUMMARY TRANSABDOMINAL IMAGING WAS PERFORMED TAO INTRAUTERINE GESTATION IN BREECH PRESENTATION PLACENTAL LOCATION is anterior. SIZE is appropriate for gestational age . MORPHOLOGY: Intracranial anatomy appears normal. The anterior abdominal wall appears intact. Images of spine appear normal. Four-chamber view of the heart UNABLE TO VIEW. Stomach, bladder unremarkable, UNABLE TO VIEW KIDNEYS. Upper and lower extremities were seen. Umbilical cord insertion site NOT SEEN. Two perivesical vessels documented. face could not be demonstrated due to position. MOTION NOTED. HEART RATE: 157 /bpm. MATERNAL OVARIES NOT SEEN ON TODAY'S EXAM SURVEY INCOMPLETE- PROFILE, NOSE/LIPS, 4 CHAMBER VIEW, KIDNEYS, ACI, ABDOMEN CIRCUMFERENCE, FEMUR LENGTH, FEMUR MEASUREMENT WAS LIMITED, SEX UNDETERMINED. STUDY LIMITED BY MATERNAL BODY HABITUS, LIMITED BY MATERNAL SCAR SHADOW, AND LIMITED BY POSITION. REPEAT EXAM RECOMMENDED. KEVIN MENA ?Alva Mendez MD ? <Electronic Signature> 12/05/2010 Procedure Note Unknown - 08/19/2018 APD Historical Result Principal Examination Grader: ALVA Cruz Trevino [facility] OBSTETRICAL ULTRASOUND REPORT Pat. Name: CAMILA LEDESMA Study Date: 12/05/2010 4:56pm Pat. No: [id number] Referring MD: EUGENIA LMP: 07/27/2010 Java Developer Analyst: KEVIN MENA GA by LMP: 18.7 weeks , Age: 9 1985, 24 GA by 1st: 17.6 weeks GA Selected: 17.6 weeks (FromFirst U) GA by US: 18.5 weeks SOO: 05/11/2011 Hist/Ind: SURVEY MEASUREMENTS & AGE GROWTH EVALUATION Measurement GA Range Source % for 17.6 Ratios ------- ------- BPD 4.2 cm 18.6 wk (16.9-20.3) Hadlock BPD 75% CI 0.75 (0.70 -0.86) HC 15.4 cm 18.4 wk (16.9-19.9) Hadlock HC 73% GA for sonogram 18.5 wk (16.9-20.1) Weight Estimate: based on (BPD,HC) Avg Weight: gm (-) CLINICAL SUMMARY TRANSABDOMINAL IMAGING WAS PERFORMED TAO INTRAUTERINE GESTATION IN BREECH PRESENTATION PLACENTAL LOCATION is anterior. SIZE is appropriate for gestational age . MORPHOLOGY: Intracranial anatomy appears normal. The anterior abdominal wall appears intact. Images of spine appear normal. Four-chamber view of the heart UNABLE TO VIEW. Stomach, bladder unremarkable, UNABLE TO VIEW KIDNEYS. Upper and lower extremities were seen. Umbilical cord insertion site NOT SEEN. Two perivesical vessels documented. face could not be demonstrated due to position. MOTION NOTED. HEART RATE: 157 /bpm. MATERNAL OVARIES NOT SEEN ON TODAY'S EXAM SURVEY INCOMPLETE- PROFILE, NOSE/LIPS, 4 CHAMBER VIEW, KIDNEYS,ACI, ABDOMEN CIRCUMFERENCE, FEMUR LENGTH, FEMUR MEASUREMENT WAS LIMITED, SEX UNDETERMINED. STUDY LIMITED BY MATERNAL BODY HABITUS, LIMITED BY MATERNAL C-SECTIONSCAR SHADOW, AND LIMITED BY POSITION. REPEAT EXAM RECOMMENDED. KEVIN MENA MD <Electronic Signature> 12/05/2010 Unknown IMG US OB ORDERABLES documented in this encounter Visit Diagnoses Not on filedocumented in this encounter Care Teams Dynamics Ax Consultant Relationship Specialty Start Date End Date Amada Carson MD [address] [place] [address] PCP - General 06/09/18 08/27/18 documented as of this encounter
--- OUTSIDE RECORDS SUMMARY | 2024-01-13 19:00 | XMS_ITS | Encounter Summary ---
[place] [address] Care Team Providers Care Dye Padder Operator Name Role Phone None Primary Care Provider Unavailabl e Encounter Details Date Type Department Care Team (Late st Contact Info) Description 04/06/2010 1:30 PM EST Office Visit Obstetrics [place] [address] Stefan Fair, x ray operator Disposition: Home Social History Tobacco Use Types [...] on filedocumented in this encounter Care Teams Dye Padder Operator Relationship Specialty Start Date End Date None None PCP - General 01/10/10 05/31/10 documented as of this encounter
--- OUTSIDE RECORDS SUMMARY | 2024-01-13 19:00 | XMS_ITS | Encounter Summary ---
Author Organization [facility]ending [facility] [place] [address] Care Team Providers Care Hob Grinder Name Role Phone Amada Carson MD Primary Care Provider [phone] [phone] Encounter Details Date Type Department Care Team (Late st Contact Info) Description 04/08/2011 Orders Only Radiology and Cardiology Results [address] [place] [address] Apd Conversion, Results Provider, Social [...] Date/Time Associated Diagnosis Comments URIC ACID Routine 04/08/2011 documented in this encounter Results * (ABNORMAL) Uric acid (04/08/2011) Uric Acid 4.7(Machine Adjuster Leader Case Trim al Lab) 2.6 - 7.2 GUALBERTO JAVED CONVERSION 04/08/2011 Results Provider Apd Conversion MD GAVINO GALARZA ORDERABLES GUALBERTO JAVED CONVERSION documented in this encounter Visit Diagnoses Not on filedocumented in this encounter Care Teams Hob Grinder Relationship Specialty Start Date End Date Amada Carson MD [address] [place] [address] PCP - General 06/09/18 08/27/18 documented as of this encounter
--- OUTSIDE RECORDS SUMMARY | 2024-01-13 19:00 | XMS_ITS | Encounter Summary ---
Author Organization [facility] [place] [address] Care Team Providers Care Acupressure Therapist Name Role Phone Unavailable Primary Care Provider Unavailabl e Reason for Visit * Reason Comments Cervicalgia Encounter Details Date Type Department Care Team (Latest Contact Info) Description 05/21/2012 1:00 PM EDT Procedure [place] [phone] Antoni Willis MD [facility] [place] [address] Headache following lumbar puncture (Primary Dx) Discharge Disposition: Home Social History [...] Sign Reading Time Taken Comments Blood Pressure 124/84 05/21/2012 3:30 PM EDT Pulse 59 05/21/2012 3:30 PM EDT Temperature - - Respiratory Rate - - Oxygen Saturation 100% 05/21/2012 3:30 PM EDT Inhaled Oxygen Concentration - - Weight 106.6 kg (235 lb) 05/21/2012 1:34 PM EDT Height 167.6 cm (5' 6) 05/21/2012 1:34 PM EDT Body Mass Index 37.93 05/21/2012 1:34 PM EDT documented in this encounter Patient Instructions * Patient Instructions* Pat Cramer RN - 05/21/2012 4:10 PM EDT [facility] Discharge Instructions: You were seen by Dr. Antoni Willis MD who performed Epidural blood patch. [x] You may resume your normal activities: [...] 20 minutes. Do not apply heat today. [x] You received Midazolam 1 mg and Fentanyl Citrate 25 mcg through an intravenous line, to lessen the anxiety/pain of your procedure. DO NOT operate heavy or dangerous equipment/tools, or sign important papers today. Attempt to empty your bladder 4-6 hours after your procedure. You received the following medications: Lidocaine and Omnipaque (contrast dye). During regular business hours, please phone the [...] or proceed to your local emergency department. KALPESH Oliva documented in this encounter Progress Notes * Pat Cramer RN - 05/21/2012 4:11 PM EDT Patient discharged home with spouse after resting about 1hour and 15 minutes after blood patch. Shereceived 1 liter of LR over aproximately 2hours. Patient reported that her headache was significantly improved and complained of a dull headache pain at time of discharge from [facility]. Patient instructed not to drive today. She understands that she should relax and rest for remainderof the day. She and her advised that someone should help her to care for her small childrenfor the rest of today. If patient headache persists- or returns tomorrow- she will contact the neurology clinic, otherwise she will contact them regarding f/u care in a day or two. Patient knows how to call the [facility] Management [facility] and understands that they may call at any timeshould they have further questions or concerns. . * Pat Cramer RN - 05/21/2012 1:44 PM EDT Pre-Procedure Screening Questions: 1. Status: No 2. 3. Patient states they have a garbage truck driver to transport after procedure? Yes 4. Patient [...] documented in this encounter Procedure Notes * Chase Morelos MD - 05/21/2012 2:39 PM EDTAssociated Order(s): BLOOD PATCH, CLINIC Procedure(s): BLOOD PATCH Pre-Procedure Diagnose(s): Headache following lumbar puncture EPIDURAL BLOOD PATCH Date of Service: May 21, 2012 Patient: Kimberli Bales Provider: CHASE MORELOS MD Chief Complaint: Headache post lumbar puncture Kimberli Bales has been referred to the [facility] for epidural blood patch. The patient has classic symptoms of low pressure headache since a Lumbar puncture procedure two days ago. Pt has tried hydration and caffeine without improvement in symptoms. Pt was undergoing lumbar puncture for evaluation of possible pseudotumor cerebri. Per note there were four attempts at the L4-L5 level. Of note, on fluoroscopy multiple insertion sites found on skin match up with L2-L3 level. Kimberli Bales was interviewed and the medical record reviewed. There were no medical, pharmacologic or structural contraindications to attempting fluoroscopically guided epidural needle placement and injection of blood. Risks and expected side effects as well as potential benefit of the procedure were reviewed with Kimberli Bales, and his voiced concerns addressed. The printed consent form was signed and witnessed. Standard time-out procedure was performed. Kimberli Bales was placed in the prone position on the fluoroscopy table and automated blood pressure cuff and pulse oximeter applied. The skin entry point for entering the epidural space by a midline interlaminar approach at L2-3 was identified under fluoroscopy and marked. Following thorough Chlorhexadine preparation of the skin and draping and 1% lidocaine infiltration of the skin entry point and subcutaneous tissues, an 5 18 gauge Tuohy needle was placed under fluoroscopic guidance andwith loss of resistance technique into the epidural space. Needle tip depth was confirmed in lateral C-arm projection. Upon needle placement and loss of resistance there were no paresthesiae or return of blood or CSF through the needle. 1cc of Omnipaque 240 were injected with clear epidural spread.Blood was drawn from an upper extremity vein under sterile conditions and 20 milliliters were injected through the needle with no unusual discomfort expressed by Kimberli Bales. She was keep supine for 1 hour post procedure. Diagnosis: Post LP headache Procedure: Lumbar epidural blood patch Kimberli Bales's vital signs were stable throughout the procedure and were as recorded in nursing records. Pt received 1mg of midazalam and 25ug of Fentanyl with procedure; see MAR Follow up plans and appointments were discussed with Kimberli Bales. Post procedure instructionwas given as documented in nursing records and having met discharge criteria, he was discharged from the [facility]. CHASE MORELOS MD I was the attending physician supervising the resident in the above care and I was present with theresident for the entire procedure. ANTONI WILLIS MD CC: GEORGE KIM MD None documented in this encounter Miscellaneous Notes * Miscellaneous - Provider, Scanning - 05/27/2012 9:18 AM EDT documented in this encounter Plan of Treatment Not on file documented as of this encounter Procedures Procedure Name Priority Date/Time Associated Diagnosis Comments BLOOD PATCH Routine 05/21/2012 3:27 PM EDT Headache following lumbar puncture documented in this encounter Results * BLOOD PATCH (05/21/2012 3:27 PM EDT) Narrative Antoni Willis MD - 05/21/2012 3:27 PM EDT Antoni Willis MD ? 05/21/2012 ??3:27 PM EPIDURAL BLOOD PATCH Date of Service: ??May 21, 2012 Patient: ??Kimberli Bales Provider: ??CHASE MORELOS MD ?? Chief Complaint: ??Headache post lumbar puncture Kimberli Bales has been referred to the [facility] for epidural blood patch. ??The patient has classic symptoms of low pressure headache since a ??Lumbar puncture procedure two days ago. ??Pt has tried hydration and caffeine without improvement in symptoms. Pt was undergoing lumbar puncture for evaluation of possible pseudotumor cerebri. ??Per note there were four attempts at the L4-L5 level. ??Of note, on fluoroscopy multiple insertion sites found on skin match up with L2-L3 level. Kimberli Bales was interviewed and the medical record reviewed. ??There were no medical, pharmacologic or structural contraindications to attempting fluoroscopically guided epidural needle placement and injection of blood. ??Risks and expected side effects as well as potential benefit of the procedure were reviewed with Kimberli Bella Amairani, and his voiced concerns addressed. ??The printed consent form was signed and witnessed. ?? Standard time-out procedure was performed. Kimberli Bales was placed in the prone position on the fluoroscopy table and automated blood pressure cuff and pulse oximeter applied. ??The skin entry point for entering the epidural space by a midline interlaminar approach at L2-3 was identified under fluoroscopy and marked. ??Following thorough Chlorhexadine preparation of the skin and draping and 1% lidocaine infiltration of the skin entry point and subcutaneous tissues, an 5 18 gauge Tuohy needle was placed under fluoroscopic guidance and with loss of resistance technique into the epidural space. ??Needle tip depth was confirmed in lateral C-arm projection. ??Upon needle placement and loss of resistance there were no paresthesiae or return of blood or CSF through the needle. ?? 1cc ??of Omnipaque 240 were injected with clear epidural spread. ??Blood was drawn from an upper extremity vein under sterile conditions and ??20 milliliters were injected through the needle with no unusual discomfort expressed by Kimberli Bales. She was keep supine for 1 hour post procedure. Diagnosis: Post LP headache Procedure: ??Lumbar epidural blood patch Kimberli Bales's vital signs were stable throughout the procedure and were as recorded in nursing records. ?? Pt received 1mg of midazalam and 25ug of Fentanyl with procedure; see MAR Follow up plans and appointments were discussed with Kimberli Bales. ??Post procedure instruction was given as documented in nursing records and having met discharge criteria, he was discharged from the [facility] Management [facility]. CHASE MORELOS MD I was the attending physician supervising the resident in the above care and I was present with the resident for the entire procedure. ANTONI WILLIS MD CC: GEORGE KIM MD None Procedure Note Chase Morelos MD - 05/21/2012 2:39 PM EDT EPIDURAL BLOOD PATCH Date of Service: May 21, 2012 Patient: Kimberli Bales Provider: CHASE MORELOS MD Chief Complaint: Headache post lumbar puncture Kimberli Bales has been referred to the [facility] forepidural blood patch. The patient has classic symptoms of low pressureheadache since a Lumbar puncture procedure two days ago. Pt has triedhydration and caffeine without improvement in symptoms. Pt was undergoinglumbar puncture for evaluation of possible pseudotumor cerebri. Per notethere were four attempts at the L4-L5 level. Of note, on fluoroscopymultiple insertion sites found on skin match up with L2-L3 level. Kimberli Bales was interviewed and the medical record reviewed. Therewere no medical, pharmacologic or structural contraindications toattempting fluoroscopically guided epidural needle placement and injectionof blood. Risks and expected side effects as well as potential benefit ofthe procedure were reviewed with Kimberli Bales, and his voicedconcerns addressed. The printed consent form was signed and witnessed.Standard time-out procedure was performed. Kimberli Bales was placed in the prone position on the fluoroscopytable and automated blood pressure cuff and pulse oximeter applied. Theskin entry point for entering the epidural space by a midline interlaminarapproach at L2-3 was identified under fluoroscopy and marked. Followingthorough Chlorhexadine preparation of the skin and draping and 1%lidocaine infiltration of the skin entry point and subcutaneous tissues,an 5 18 gauge Tuohy needle was placed under fluoroscopic guidance andwith loss of resistance technique into the epidural space. Needle tipdepth was confirmed in lateral C-arm projection. Upon needle placementand loss of resistance there were no paresthesiae or return of blood orCSF through the needle. 1cc of Omnipaque 240 were injected with clearepidural spread. Blood was drawn from an upper extremity vein understerile conditions and 20 milliliters were injected through the needlewith no unusual discomfort expressed by Kimberli Bales. She was keepsupine for 1 hour post procedure. Diagnosis: Post LP headache Procedure: Lumbar epidural blood patch Kimberli Bales's vital signs were stable throughout the procedure andwere as recorded in nursing records. Pt received 1mg of midazalam [id number] of Fentanyl with procedure; see MAR Follow up plans and appointments were discussed with Kimberli Bales.Post procedure instruction was given as documented in nursing records andhaving met discharge criteria, he was discharged from the [facility]. CHASE MORELOS MD I was the attending physician supervising the resident in the above careand I was present with the resident for the entire procedure. ANTONI WILLIS MD CC: GEORGE IKM MD None Antoni Willis MD PROCEDURE/MINOR SURG ICAL ORDERABLES documented in this encounter Visit Diagnoses Diagnosis Headache following lumbar puncture- Primary Reaction to spinal or lumbar puncture documented in this encounter Administered Medications Inactive Administered Medications - up to 3 most recent administrations Medication Order MAR Action Action Date Dose Rate Site fentaNYL 50mcg/mL injection 25 mcg, Intravenous, ONCE PRN, 1 dose, Starting on Sat05/21/12 at 1437, Until Sat05/21/12 at 1413, Pain, Routine Given 05/21/2012 2:13 PM EDT 25 mcg iohexol (OMNIPAQUE) injection 1 mL 1 mL, Other, ONCE PRN, 1 dose, Starting on Sat05/21/12 at 1437, Until Sat05/21/12 at 1400, Per Protocol, Routine Given 05/21/2012 2:00 PM EDT 1 mL lactated ringers infusion 1,000 mL 1,000 mL (1 L), Intravenous, ONCE, 1 dose, On Sat05/21/12 at 1500 New Bag 05/21/2012 3:00 PM EDT 1,000 mLs mL/hr midazolam (VERSED) injection 1 mg 1 mg, Intravenous, ONCE PRN, 1 dose, Starting on Sat05/21/12 at 1437, Until Sat05/21/12 at 1410, Anxiety, Routine Given 05/21/2012 2:10 PM EDT 1 mg documented in this encounter
--- OUTSIDE RECORDS SUMMARY | 2024-01-13 19:00 | XMS_ITS | Encounter Summary ---
Author Organization [facility] [place] [address] Care Team Providers Care Casting Room Operator Name Role Phone None Primary Care Provider Unavailabl e Reason for Visit * Reason Comments Care incision check Encounter Details Date Type Department Care Team (Latest Contact Info) Description 05/31/2010 9:20 AM EDT Visit Obstetrics [place] [address] Iman Nation [facility] DR OBSTETRICS & [place] [address] Wound check (Primary Dx) Discharge Disposition: Home Social History [...] Sign Reading Time Taken Comments Blood Pressure 116/78 05/31/2010 9:18 AM EDT Pulse - - Temperature 36.4 ??C (97.6 ??F) 05/31/2010 9:18 AM ED T Respiratory Rate - - Oxygen Saturation - - Inhaled Oxygen Concentration - - Weight - - Height - - Body Mass Index - - documented in this encounter Progress Notes * Iman White CN - 05/31/2010 9:55 AM EDT Reason for Visit: Kimberli is a 24 yo P1 here for an incision check 9 wks post C/S. Subjective: Kimberli states she had a C/S on 03/25/2010 then was readmitted to the hospital for five days on 04/02/2010 d/t wound drainage and infection. She got IV antibiotics then was sent home with VNA services for wound packing. She never did get the wound vac that was to be placed into her incision to aid healing. The VNA stopped coming in mid-April and she has been using a wound spray daily. Over the week-end she noted a low temp in the 99 range and had a silver dollar size spot of clearfluid drain from the wound, no malodor noted. She herself has not looked at her incision but her has and he thought it looked more reddened this am. Took tylenol before leaving the house today. She is formula feeding and is on OCPs for contraception. Objective: General: Very pleasant WF with increased BMI, alone at todays visit. VS: T. 97.6, B/P 116/78. Incision check: The right side of the incision is well approximated and healed. There is an approx 3-4 cm size area on the left side of the incision where the upper edge is everted and reddened with scant sero-sanguinous drainage noted. Wound was not probed. Dr. Thomas into evaluate wound, no intervention taken. Pelvic exam: This was deferred at six week visit d/t patient's lower abdominal discomfort. Did not do pelvic exam today as patient still has area that needs to complete healing at would site. Assessment/Plan: Delayed wound healing. No intervention necessary per Dr. Thomas, continue to use wound spray daily as she has been doing. To call with fever >100.4, erythema around the site or other concerns. Consider pelvic exam once wound is completely healed. Patient verbalized she was reassured after the visit. documented in this encounter Plan of Treatment Not on file documented as of this encounter Visit Diagnoses Diagnosis Wound check- Primary Encounter for other specified aftercare documented in this encounter Care Teams Casting Room Operator Relationship Specialty Start Date End Date None None PCP - General 01/10/10 05/31/10 documented as of this encounter
--- OUTSIDE RECORDS SUMMARY | 2024-01-13 19:00 | XMS_ITS | Encounter Summary ---
Author Organization [facility] [place] [address] Care Team Providers Care Fisher Net Name Role Phone None Primary Care Provider Unavailabl e Encounter Details Date Type Department Care Team (Latest Contact Info) Description 05/08/2010 1:00 PM EDT Visit Obstetrics [place] [address] Cristal Damon, [facility] [address] OBSTETRICS [place] [address] Discharge Disposition: Home Social History Tobacco Use [...] Procedure Name Priority Date/Time Associated Diagnosis Comments PHYS THERAPIST CYTOLOGY FINAL REPORT Routine 05/08/2010 3:53 PM EDT documented in this encounter Results * PATHOLOGY PHYS THERAPIST CYTOLOGY FINAL REPORT (05/08/2010 3:53 PM EDT) Hand Umbrella Tipper Cytology Final Report ? [facility] ? Provider: ?? CRISTAL DAMON ??Pt. Name: ?? BALTAZAR, KIMBERLI Bella ? Acc #: ?[id number] ?Pt. ? Col Date: ?? 05/08/2010 ? /Sex: ?1985,(24 years),Female ? Rec Date: ?? 05/08/2010 ? LOC: ?5L ? CYTOPATHOLOGY: ??PHYS THERAPIST ? ---Adequacy--- ? Specimen submitted is satisfactory. ? Endocervical component present. ? ---Cytopathologic Diagnosis--- ?NORMAL ? Negative for Intraepithelial Lesion or Malignancy (NILM). ? 05/15/10 ?? Screened by: ??FMQ ? 05/15/10 ?? Verified by: ??Debra CASTELLANOS(ASCP), Wisam Mason - Generating Station Mechanic ? ---Clinical Information--- ? Specimen Source: ?Cervical Endocervical LBP ? LMP: ?LMP unknown - other (state reason in clinical ? history) ? / ?: ?? Yes- ? Hysterectomy?: ?No ? Clinical Data, Significant Therapy and Clinical Impression: ? HPV Option: ?If ASCUS, please perform reflex High Risk HPV Testing. ? Preparation: ?Hologic Vial ? This Pap Test has been evaluated with the assistance of the ThinPrep Pap ? Test Imaging System. ? Note: ? The Pap test is a screening test for cervical cancer with an inherent ? false-negative rate dependent upon several variables. ??For further ? information please contact the [facility] Laboratory. ? Reference: ??Chiqui CS. ??Hosiery Mater of Pap Smear Results. ??In: ? Evaristo BS, Jeovanny HH, ed. ??The Pap Smear. ??[place]: ??Arnold, 2002: ? 71-77. ROBBY TAYLORCLIFFIUM 05/08/2010 3:53 PM EDT Cristal Damon CNPalma PATHOLOGY/CYTOLOGY ORDERABLES [facility] documented in this encounter Visit Diagnoses Not on filedocumented in this encounter Care Teams Fisher Net Relationship Specialty Start Date End Date None None PCP - General 01/10/10 05/31/10 documented as of this encounter
--- OUTSIDE RECORDS SUMMARY | 2024-01-13 19:00 | XMS_ITS | Encounter Summary ---
Author Organization [facility] Address [facility] [place] [address] Care Team Providers Care Mill Turner Name Role Phone Unavailable Primary Care Provider Unavailabl e Encounter Details Date Type Department Care Team (Late st Contact Info) Description 06/17/2012 1:45 PM EDT Office [place] [phone] Eusebia Salguero MD [facility] DR [place]UROLOG[place] [address] Headache (Primary Dx); Bleeding Discharge Disposition: Home Social [...] Sign Reading Time Taken Comments Blood Pressure 132/72 06/17/2012 1:40 PM EDT Pulse 86 06/17/2012 1:40 PM EDT Temperature - - Respiratory Rate - - Oxygen Saturation - - Inhaled Oxygen Concentration - - Weight 109.8 kg (242 lb) 06/17/2012 1:40 PM EDT Height 167.6 cm (5' 6) 06/17/2012 1:40 PM EDT Body Mass Index 39.06 06/17/2012 1:40 PM EDT documented in this encounter Progress Notes * Eusebia Nelson L - 06/17/2012 1:49 PM EDT Neurology Progress Note Patient Name: Kimberli Bales Attending: Dr. Salguero Patient ID: Kimberli Bales is a 26 [...] also normal. The MCGARRY is in the left temporal region and at it's worse can go across the top of the head. Prior tothis patient states she was NOT a headache person. It has a throbbing quality with no associated photophobia, phonophobia, nausea or vomiting. She states that the MCGARRY can last hours to days in duration and there were no exacerbating or alleviating factors. There was no change with positions. She hadan acute change in her vision requiring new [...] No specific abnormalities seen (report scanned into EDH) Medications tried: Amitriptyline, Topamax and other medication Current Medications: Acetazolamide 125mg BID Interval History: Last LP required a blood patch, and had one week of a postural MCGARRY There is no MCGARRY currently on the Diamox 125mg BID Patient has had some decreased visual acuity, but on dilated eye exam yesterday had no evidence of papilledema. Medications: Current Outpatient Prescriptions on File Prior to Visit Medication Sig Dispense Refill ??? multivitamin (THERAGRAN) tablet Take 1 tablet by mouth daily. ??? acetaZOLAMIDE (DIAMOX) 250 mg tablet Take 125 mg by mouth 2 times daily. Physical Exam: Filed Vitals: 06/17/12 1340 BP: 132/72 Pulse: 86 Constitutional: Patient of apparent stated age, no acute distress Neuro: MS: Alert, oriented, clear language, no dysarthria, follows commands CN: PERRL, EOMI , baseline esotropia no facial asymmetry Motor: no pronator drift, moves all extremities symmetrically Gait: normal base and arm-swing Labs: No results found for this or any previous visit (from the past 24 hour(s)). Diagnostic Tests and Imaging: Nothing new Assessment and Plan: Kimberli Bales is a 26 y.o. right handed female with PMH 2 C-sections presenting for evaluationof a headache that has increased in frequency and severity since June 2011,after the deliveryof 2nd child.she is being followed in Neurology clinic for MCGARRY that is suspicious for pseudotumor cerebri, LP 05/19/2012 demonstrated an opening pressure of 23mm H2O while on Diamox 125mg BID. MRI brainis normal. ESR is also normal. Will check TSH today and K level as the patient is experiencing some paresthesias in the hand and will likely benefit from potassium supplementation. She had a normal dilated eye examination yesterday - report to be scanned into the system. She states that there has been a small change in visual acuity, for which she will need a new glasses prescription. In the setting of a non-specific opening pressure and normal MRI with a clinical hx that is suggestive of Pseudotumor cerebri, will continue treatment with Diamox 125mg BID for 6 months and then consider tapering off. If sx return will need afluoro guided LP for opening pressure off the medication. In the mean time patient will work on magnetic.io which is the mainstay in treatment for the diagnosis. - Continue Diamox 125mg BID - Labs: BMP and TSH/T3/T4 - consider K supplementation based on labs - F/U with Optho in 3 months - F/U with Dr. Nelson in 4 months Eusebia Nelson MD Neurology Resident Pager [phone] I was the attending supervising the resident in the above care. The patient was discussed with me in detail at the time of the clinic visit. Eusebia Salguero MD Pipelines Supervisor of Neurology Cda Teacher, Adult Neurology Director, [facility] documented in this encounter Plan of Treatment Not on file documented as of this encounter Procedures Procedure Name Priority Date/Time Associated Diagnosis Comments RED TUBE HOLD Routine 06/17/2012 2:30 PM EDT T3, FREE Routine 06/17/2012 2:30 PM EDT Headache TSH Routine 06/17/2012 2:30 PM EDT Headache T4, FREE Routine 06/17/2012 2:30 PM EDT BASIC METABOLIC PANEL Routine 06/17/2012 2:30 PM EDT Headache documented in this encounter Results * Red Hold (06/17/2012 2:30 PM EDT) Pathologist [facility] Red Hold Sample in lab. [facility] Blood specimen (specimen) 06/17/2012 2:30 PM EDT 06/17/2012 3:41 PM EDT Eusebia Salguero MD CHEMISTRY ORDERABLES Performing Organization Address City/[facility] Co de Phone Number [facility] * T4, free (06/17/2012 2:30 PM EDT) Free T4 1.37 0.90 - 1.60 ng/dL [facility]BY C[facility]CL[facility] Blood specimen (specimen) 06/17/2012 2:30 PM EDT 06/17/2012 3:36 PM EDT Narrative Resulting Agency Comment Spec In Lab Eusebia Salguero MD CHEMISTRY ORDERABLES Performing Organization Address [facility]/State/ZIP Co de Phone Number [facility] * (ABNORMAL) Basic Metabolic Panel (non-fasting) (06/17/2012 2:30 PM EDT) Pathologist [facility] Glucose 78 60 - 199 mg/dL [facility] Comment:Diabetes: >=200 mg/d L plus symptoms Blood Urea Nitrogen 7(L) 8 - 18 mg/dL [facility] Creatinine 0.68(L) 0.70 - 1.20 mg/dL CERNER MILLENNIUM Comment: Please note that the pediatric reference intervals supplied above were not validated at [facility]. Results from pediatric patients should be interpreted in conjunction to the patient's age, height and muscle mass. Sodium 138 135 - 145 mmol/L CERNER MILLENNIUM Potassium 3.6 3.5 - 5.0 mmol/L CERNER MILLENNIUM Comment: Please note: ??Patients with WBC >100,000 may have falsely elevated Potassium levels. ??For accurate Potassium quantification in these patients send serum separator tube (gold top) for subsequent determinations. ??Contact the Clinical Chemistry Laboratory if there are any questions. Chloride 105 98 - 107 mmol/L CERNER MILLENNIUM Carbon Dioxide 24 22 - 31 mmol/L CERNER MILLENNIUM Anion Gap 9 5 - 15 mmol/L CERNER MILLENNIUM Calcium 9.2 8.5 - 10.5 mg/dL CERNER MILLENNIUM Est Glomerular Filtration Rate >60 >=60 CERNER MILLENNIUM Comment: This estimated GFR (eGFR) value was calculated using the MDRD equation which has been validated on patients between the ages of 18 and 70. The MDRD should not be used to assess kidney function in patients < 18 years of age or in patients with extremes of body mass, or in patients with acute kidney failure. This value should be multiplied by 1.2 for patients. For further information please copy and paste the following links into your internet browser. http://www.nkdep.nih.gov/lab-evaluation.shtml http://www.kidney.org/professionals/ Blood specimen (specimen) 06/17/2012 2:30 PM EDT 06/17/2012 2:36 PM EDT Narrative Resulting Agency Comment Spec In Lab Eusebia Salguero MD CHEMISTRY ORDERABLES CERNER MILLENNIUM * T3, free (06/17/2012 2:30 PM EDT) Free T3 3.1 2.0 - 3.5 pg/mL CERNER MILLENNIUM Comment: Test Performed by: [facility] [employer] [address], [place] [address] Customer Service Cashier: Yadi Lizama, Ph.D. Blood specimen (specimen) 06/17/2012 2:30 PM EDT 06/17/2012 4:18 PM EDT Narrative Resulting Agency Comment Spec In Lab Eusebia Salguero MD CHEMISTRY ORDERABLES Performing Organization Address [facility] de Phone Number ROBBY CASTLE * TSH (06/17/2012 2:30 PM EDT) Thyroid Stimulating Hormone 2.67 0.27 - 4.20 mcIU/mL SAVANADAX CASTLE Blood specimen (specimen) 06/17/2012 2:30 PM EDT 06/17/2012 2:36 PM EDT Narrative Resulting Agency Comment Spec In Lab Eusebia Salguero MD CHEMISTRY ORDERABLES Performing Organization Address [facility] de Phone Number ROBBY CASTLE documented in this encounter Visit Diagnoses Diagnosis Headache(784.0)- Primary Headache Bleeding Hemorrhage, unspecified documented in this encounter
--- OUTSIDE RECORDS SUMMARY | 2024-01-13 19:00 | XMS_ITS | Encounter Summary ---
Author Organization [facility] Address [facility] [place] [address] Care Team Providers Care Help Desk Operator Name Role Phone Amada Carson MD Primary Care Provider [phone] Encounter Details Date Type Department Care Team (Late st Contact Info) Description 01/08/2011 Interpretation Only Radiology [address] [place] [address] Unknown None Social History Tobacco Use Types [...] Procedure Name Priority Date/Time Associated Diagnosis Comments OB LIMITED Routine 01/08/2011 4:00 PM EST documented in this encounter Results * US OB Limited (01/08/2011 4:00 PM EST) Anatomical Region Laterality Modality Pelvis, Abdomen Ultrasound 01/08/2011 4:00 PM EST Narrative 01/08/2011 4:00 PM EST APD Historical Result Principal Battery Installer: ??GERALD ??PARISA Trevino [facility] OBSTETRICAL ULTRASOUND REPORT ? -------- Pat. Name: KIMBERLI LEDESMA Palma ? Study Date: ?? 01/08/2011 6:29pm Pat. No: ?? [id number] ?Referring MD: MEERA^ELSIE LMP: ? 07/27/2010 ?Street Light Servicer: ??David CARTER, STUDENT GA by LMP: 23.6 weeks ?, Age: ? 1985, 25 GA by 1st: 22.5 weeks ?GA Selected: ??22.5 weeks (From First U) GA by US: ??22.3 weeks ?SOO: ?05/11/2011 Hist/Ind: ??COMPLETION OF SURVEY -------- MEASUREMENTS & AGE ? GROWTH EVALUATION Measurement ?? GA ? Range ?Source ?? % for 22.5 Ratios ------- ------- ?? BPD ??5.4 cm 22.5 wk (20.8-24.2) [place] ??BPD ??51% ?? FL/BPD 0.71 HC ??19.9 cm 22.1 wk (20.6-23.6) [place] ??HC ?? 38% ?? FL/AC ??0.23 (0.20 - 0.24) AC ??17.2 cm 22.2 wk (20.1-24.3) [place] ??AC ?? 43% ?? HC/AC ??1.16 (1.04 - 1.23) FL ?? 3.9 cm 22.5 wk (20.7-24.3) [place] ??FL ?? 49% ?? CI ? 0.76 (0.70 - 0.86) GA for sonogram 22.3 wk (20.5-24.1) ? Weight Estimate: based on (BPD,HC,AC,FL) Avg ?Weight: 491 gm (419-562) [place] : 1lbs, 1oz Normal: 515 gm (345-955) Adebayo Wt% ? 44% for 22.5 wks -------- CLINICAL SUMMARY TRANSABDOMINAL IMAGING WAS PERFORMED TAO INTRAUTERINE GESTATION IN BREECH PRESENTATION PLACENTAL LOCATION is anterior. SIZE is appropriate for gestational age . GROWTH:normal growth, corresponds with prior study MORPHOLOGY: Four-chamber view of the heart unremarkable. Stomach, kidneys and bladder unremarkable. Normal umbilical cord insertion site seen. facial profile and coronal views appear normal. MOTION NOTED. HEART RATE: 139 /bpm. STUDY LIMITED BY MATERNAL BODY HABITUS SURVEY LOU MAX, RDMS ?Gerald Hahn MD ? <Electronic Signature> 01/09/2011 Procedure Note Unknown - 08/19/2018 APD Historical Result Principal Battery Installer: GERALD Cruz [facility] OBSTETRICAL ULTRASOUND REPORT Pat. Name: KIMBERLI LEDESMA Study Date: 01/08/2011 6:29pm Pat. No: [id number] Referring MD: EUGENIA LMP: 07/27/2010 Street Light Servicer: David CARTER, STUDENT GA by LMP: 23.6 weeks , Age: 9 1985, 25 GA by 1st: 22.5 weeks GA Selected: 22.5 weeks (FromFirst U) GA by US: 22.3 weeks SOO: 05/11/2011 Hist/Ind: COMPLETION OF SURVEY MEASUREMENTS & AGE GROWTH EVALUATION Measurement GA Range Source % for 22.5 Ratios ------- ------- BPD 5.4 cm 22.5 wk (20.8-24.2) [place] BPD 51% FL/BPD 0.71 HC 19.9 cm 22.1 wk (20.6-23.6) [place] HC 38% FL/AC 0.23 (0.20 -0.24) AC 17.2 cm 22.2 wk (20.1-24.3) [place] AC 43% HC/AC 1.16 (1.04 -1.23) FL 3.9 cm 22.5 wk (20.7-24.3) [place] FL 49% CI 0.76 (0.70 -0.86) GA for sonogram 22.3 wk (20.5-24.1) Weight Estimate: based on (BPD,HC,AC,FL) Avg Weight: 491 gm (419-562) [place] : 1lbs, 1oz Normal: 515 gm (345-955) [facility] Wt% 44% for 22.5 wks CLINICAL SUMMARY TRANSABDOMINAL IMAGING WAS PERFORMED TAO INTRAUTERINE GESTATION IN BREECH PRESENTATION PLACENTAL LOCATION is anterior. SIZE is appropriate for gestational age . GROWTH:normal growth, corresponds with prior study MORPHOLOGY: Four-chamber view of the heart unremarkable. Stomach, kidneys and bladder unremarkable. Normal umbilical cord insertion site seen. facial profile and coronal views appear normal. MOTION NOTED. HEART RATE: 139 /bpm. STUDY LIMITED BY MATERNAL BODY HABITUS SURVEY HERMAN CARRENO MD <Electronic Signature> 01/09/2011 Unknown IMG US OB ORDERABLES documented in this encounter Visit Diagnoses Not on filedocumented in this encounter Care Teams Help Desk Operator Relationship Specialty Start Date End Date Amada Carson MD [address] [place] [address] PCP - General 06/09/18 08/27/18 documented as of this encounter
--- OUTSIDE RECORDS SUMMARY | 2024-01-13 19:00 | XMS_ITS | Encounter Summary ---
Author Organization [facility] [place] [address] Care Team Providers Care Case Manager Specialist Name Role Phone Unavailable Primary Care Provider Unavailabl e Encounter Details Date Type Department Care Team (Late st Contact Info) Description 05/21/2012 Orders [place] [address] Maikol Willis MD [facility] [place] [address] Social History Tobacco Use Types Packs/Day Years [...] Associated Diagnosis Comments FILM LIBRARY STORAGE ONLY PAIN CLINIC C ARM Routine 05/21/2012 1:30 PM EDT documented in this encounter Results * Film Library-storage only pain clinic C-arm (05/21/2012 1:30 PM EDT) 05/21/2012 1:30 PM EDT Narrative RAD - 10/08/2013 6:11 PM EDT This is a non-reportable exam. Procedure Note Bruce Silverio - 10/08/2013 This is a non-reportable exam. Maikol Willis MD [facility] FILM LIBRARY ORD ERABLES RAD [address] [place] [address] documented in this encounter Visit Diagnoses Not on filedocumented in this encounter
--- OUTSIDE RECORDS SUMMARY | 2024-01-13 19:00 | XMS_ITS | Encounter Summary ---
Author Organization [facility] [place] [address] Care Team Providers Care Voting Machine Mechanic Name Role Phone Unavailable Primary Care Provider Unavailabl e Encounter Details Date Type Department Care Team (Late st Contact Info) Description 05/06/2012 [place] [address] Eusebia Nelson MD [facility] [place] [address] Social History Tobacco Use Types Packs/Day Years [...]
--- OUTSIDE RECORDS SUMMARY | 2024-01-13 19:00 | XMS_ITS | Encounter Summary ---
Author Organization [facility] [place] [address] Care Team Providers Care Pipe Covering Molder Name Role Phone None Primary Care Provider Unavailabl e Encounter Details Date Type Department Care Team (Late st Contact Info) Description 04/21/2010 11:30 AM EST Office Visit Obstetrics [place] [address] Prema Skinner MD [facility] [address] OBSTETRICS [place] [address] Discharge Disposition: Home Social History Tobacco Use [...] on filedocumented in this encounter Care Teams Pipe Covering Molder Relationship Specialty Start Date End Date None None PCP - General 01/10/10 05/31/10 documented as of this encounter
--- OUTSIDE RECORDS SUMMARY | 2024-01-13 19:00 | XMS_ITS | Encounter Summary ---
Author Organization [facility] [place] [address] Care Team Providers Care Painter Supervisor Name Role Phone Unavailable Primary Care Provider Unavailabl e Reason for Visit * Reason Onset Date Comments Other 05/23/2012 Encounter Details Date Type Department Care Team (Late st Contact Info) Description 05/23/2012 Telephone [place] [address] Eusebia Nelson MD [facility] [place] [address] Other Social History Tobacco Use Types Packs/Day [...] * Telephone Encounter - Eusebia Nelson - 05/23/2012 2:49 PM EDT Called Patient Back 2:45pm 23 May 2012: Spoke with the patient's : Patient continues to have a low grade headache: Recommendations: 100-500mg Caffeine BID Hydration Lay flat Eusebia Nelson MD Neurology Resident Pager [phone] * Telephone Encounter - Luna Rodrigez - 05/23/2012 12:31 PM EDT Patient's , Matias, called to report that patient had an LP on Saturday and then a blood patch onSaturday. Patient was fine yesterday, but today is experiencing severe headaches again. Please return his call. documented in this encounter Plan of Treatment Not on file documented as of this encounter Visit Diagnoses Not on filedocumented in this encounter
--- OUTSIDE RECORDS SUMMARY | 2024-01-13 19:00 | XMS_ITS | Encounter Summary ---
Author Organization [facility] [place] [address] Care Team Providers Care Workforce Management Analyst Name Role Phone Amada Carson MD Primary Care Provider [phone] Encounter Details Date Type Department Care Team (Late st Contact Info) Description 11/30/2011 Orders Only Radiology and Cardiology Results [address] [place] [address] Apd Conversion, Results Provider, Social [...] Procedure Name Priority Date/Time Associated Diagnosis Comments PROTHROMBIN TIME Routine 11/30/2011 documented in this encounter Results * (ABNORMAL) Prothrombin Time (11/30/2011) International Normalization Ratio 0.97(Exte rnal Lab) GUALBERTO VILLAFUERTE DAY CONVERSION Prothrombin Time 10.3(Exte rnal Lab) 9.2 - 11.2 GUALBERTO VILLAFUERTE DAY CONVERSION 11/30/2011 Results Provider Apd Conversion HEMAT OLOGY ORDERABLES GUALBERTO VILLAFUERTE DAY CONVERSION documented in this encounter Visit Diagnoses Not on filedocumented in this encounter Care Teams Workforce Management Analyst Relationship Specialty Start Date End Date Amada Carson MD [address] [place] [address] PCP - General 06/09/18 08/27/18 documented as of this encounter
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
--- OUTSIDE RECORDS SUMMARY | 2024-01-13 19:00 | XMS_ITS | Encounter Summary ---
Author Organization [facility] [place] [address] Care Team Providers Care Printing Services Coordinator Name Role Phone Amada Carson MD Primary Care Provider [phone] Encounter Details Date Type Department Care Team (Late st Contact Info) Description 10/09/2010 Orders Only Radiology and Cardiology Results [address] [place] [id number] Apd Conversion, Results Provider, Social History Tobacco [...] Procedure Name Priority Date/Time Associated Diagnosis Comments HEPATITIS B SURFACE ANTIGEN Routine 10/09/2010 10:49 AM EDT documented in this encounter Results * (ABNORMAL) Hepatitis B Surface Antigen (10/09/2010 10:49 AM EDT) Hepatitis B Surface Antigen Negative(E xternal Lab) Negative GUALBERTO VILLAFUERTE CONVERSION 10/09/2010 10:4 9 AM EDT Results Provider Apd Conversion MD GAVINO GALARZA ORDERABLES GUALBERTOLASHON VILLAFUERTE CONVERSION documented in this encounter Visit Diagnoses Not on filedocumented in this encounter Care Teams Printing Services Coordinator Relationship Specialty Start Date End Date Amada Carson MD [address] [place] [address] PCP - General Family Medicine 08/28/18 01/21/20 documented as of this encounter
--- OUTSIDE RECORDS SUMMARY | 2024-01-13 19:00 | XMS_ITS | Encounter Summary ---
Author Organization [facility] Address [address] [facility] [place] [address] Care Team Providers Care Hardwood Floor Refinisher Name Role Phone Amada Carson MD Primary Care Provider [phone] Encounter Details Date Type Department Care Team (Late st Contact Info) Description 04/04/2011 Interpretation Only Radiology [address] [facility] [place] [address] Unknown None Social History Tobacco Use Types [...] Date/Time Associated Diagnosis Comments OB LIMITED Routine 04/04/2011 9:08 AM EST documented in this encounter Results * US OB Limited (04/04/2011 9:08 AM EST) Anatomical Region Laterality Modality Pelvis, Abdomen Ultrasound 04/04/2011 9:08 AM EST Narrative 04/04/2011 9:08 AM EST APD Historical Result Principal Grain Elevator Agent: ?JOCE ??JAG Villafuerte [facility] OBSTETRICAL ULTRASOUND REPORT ? -------- Pat. Name: KIMBERLI LEDESMA Palma ? Study Date: ?? 04/04/2011 10:32am Pat. No: ?? [id number] ?Referring MD: MEERA^ELSIE LMP: ? 08/04/2010 ?Territory Outside Sales Manager: ??C ??HERMAN MELÉNDEZ GA by LMP: 34.7 weeks ?, Age: ? 1985, 25 GA by 1st: 34.8 weeks ?GA Selected: ??34.8 weeks (From [facility]) GA by US: ??33.9 weeks ?SOO: ?05/11/2011 Hist/Ind: ??SIZE LESS THAN DATES -------- MEASUREMENTS & AGE ? GROWTH EVALUATION Measurement ?? GA ? Range ?Source ?? % for 34.8 Ratios ------- ------- ?? BPD ??8.6 cm 34.7 wk (31.6-37.8) [place] ??BPD ??48% ?? FL/BPD 0.76 (0.71 - 0.87) HC ??31.9 cm 35.9 wk (32.9-38.9) [place] ??HC ?? 67% ?? FL/AC ??0.24 (0.20 - 0.24) AC ??27.5 cm 31.5 wk (28.5-34.5) [place] ??AC ?? <05 ?? HC/AC ??1.16 (0.94 - 1.13)* FL ?? 6.5 cm 33.5 wk (30.5-36.5) [place] ??FL ?? 31% ?? CI ? 0.75 (0.70 - 0.86) GA for sonogram 33.9 wk (30.9-36.9) ? Weight Estimate: based on (BPD,HC,AC,FL) Avg ?Weight: 2060 gm (4495-6573) [place]lock : 4lbs, 8oz Normal: 2385 gm (4412-2735) Adebayo Wt% ? 27% for 34.8 wks Amniotic Fluid Index: 14.0 (07.9-24.9) Q1: 4.0 ?? Q2: 2.9 ?? Q3: 2.5 ?? Q4: 4.6 ?? -------- CLINICAL SUMMARY TRANSABDOMINAL IMAGING WAS PERFORMED TAO INTRAUTERINE GESTATION IN CEPHALIC PRESENTATION AMNIOTIC FLUID volume is normal, , ??LGST POCKET= 4.6cm. GROWTH:significant[>20%]decrease in weight percentile since last exam. NOTE SMALL ABDOMINAL CIRCUMFERENCE. MORPHOLOGY: Stomach, kidneys and bladder unremarkable. MOTION NOTED. HEART RATE: 144 /bpm. This fetus is FEMALE, patient knows. RESPIRATION observed. MATERNAL OVARIES NOT SEEN ON TODAYS EXAM STUDY LIMITED BY MATERNAL BODY HABITUS Sergio MELÉNDEZ RDMS ? Elsie Rm MD ? <Electronic Signature> 04/04/2011 Procedure Note Unknown - 08/19/2018 APD Historical Result Principal Grain Elevator Agent: ELSIE RM [facility] OBSTETRICAL ULTRASOUND REPORT Pat. Name: KIMBERLI LEDESMA Study Date: 04/04/201110:32am Pat. No: [id number] Referring MD: MEERA^ELSIE LMP: 08/04/2010 Territory Outside Sales Manager: Sergio MELÉNDEZ RDMS GA by LMP: 34.7 weeks , Age: 11 1985, 25 GA by 1st: 34.8 weeks [facility] GA by US: 33.9 weeks SOO: 05/11/2011 Hist/Ind: SIZE LESS THAN DATES MEASUREMENTS & AGE GROWTH EVALUATION Measurement GA Range Source % for 34.8 Ratios ------- ------- BPD 8.6 cm 34.7 wk (31.6-37.8) [place] BPD 48% FL/BPD 0.76 (0.71 -0.87) HC 31.9 cm 35.9 wk (32.9-38.9) [place] HC 67% FL/AC 0.24 (0.20 -0.24) AC 27.5 cm 31.5 wk (28.5-34.5) [place] AC <05 HC/AC 1.16 (0.94 -1.13)* FL 6.5 cm 33.5 wk (30.5-36.5) [place] FL 31% CI 0.75 (0.70 -0.86) GA for sonogram 33.9 wk (30.9-36.9) Weight Estimate: based on (BPD,HC,AC,FL) Avg Weight: 2060 gm (6194-5207)Hadlock : 4lbs, 8oz Normal: 2385 gm (5710-1219) Adebayo Wt% 27% for 34.8 wks Amniotic Fluid Index: 14.0 (07.9-24.9) Q1: 4.0 Q2: 2.9 Q3: 2.5 Q4: 4.6 CLINICAL SUMMARY TRANSABDOMINAL IMAGING WAS PERFORMED TAO INTRAUTERINE GESTATION IN CEPHALIC PRESENTATION AMNIOTIC FLUID volume is normal, , LGST POCKET= 4.6cm. GROWTH:significant[>20%]decrease in weight percentile sincelast exam. NOTE SMALL ABDOMINAL CIRCUMFERENCE. MORPHOLOGY: Stomach, kidneys and bladder unremarkable. MOTION NOTED. HEART RATE: 144 /bpm. This fetus is FEMALE, patient knows. RESPIRATION observed. MATERNAL OVARIES NOT SEEN ON TODAYS EXAM STUDY LIMITED BY MATERNAL BODY HABITUS HERMAN ALVARADO MD <Electronic Signature> 04/04/2011 Unknown IMG US OB ORDERABLES documented in this encounter Visit Diagnoses Not on filedocumented in this encounter Care Teams Hardwood Floor Refinisher Relationship Specialty Start Date End Date Amada Carson MD [address] [address] PCP - General 06/09/18 08/27/18 documented as of this encounter
--- OUTSIDE RECORDS SUMMARY | 2024-01-13 19:00 | XMS_ITS | Encounter Summary ---
Author Organization [facility] Address One [facility] [place] [address] Care Team Providers Care Oil Program Compliance Specialist Name Role Phone Amada Carson MD Primary Care Provider +1 [phone] Encounter Details Date Type Department Care Team (Late st Contact Info) Description 04/20/2011 Interpretation Only Radiology [address] [place] [address] Unknown None Social History Tobacco Use Types [...] Priority Date/Time Associated Diagnosis Comments US OB BIOPHYSICAL PROFILE WO NST Routine 04/20/2011 11:34 AM EST documented in this encounter Results * US OB Biophysical Profile WO Nst (04/20/2011 11:34 AM EST) Anatomical Region Laterality Modality Breast Ultrasound 04/20/2011 11:3 4 AM EST Narrative 04/20/2011 11:34 AM EST APD Historical Result Principal Venetian Blind Cleaner And Repairer: ??ALVA ??ANISHA Trevino [facility] OBSTETRICAL ULTRASOUND REPORT ? -------- Pat. Name: BALTAZAR CAMILA Waldrop ? Study Date: ?? 04/20/2011 12:01pm Pat. No: ?? [id number] ?Referring MD: NATHAN LMP: ? 08/04/2010 ?Excelsior Machine Tender: ??Maya MAX RDMS GA by LMP: 37.0 weeks ?, Age: ? 1985, 25 GA by 1st: 37.1 weeks ?GA Selected: ??37.1 weeks (From First U) GA by US: ?SOO: ?05/11/2011 Hist/Ind: ??BIO-HTN -------- MEASUREMENTS & AGE ? GROWTH EVALUATION Measurement ?? GA ? Range ?Source ?? % for 37.1 Ratios ------- ------- ?? Amniotic Fluid Index: 05.3 (07.5-24.4)* Q1: 1.3 ?? Q2: 1.2 ?? Q3: 1.6 ?? Q4: 1.2 ?? Biophysical Profile: 07/26 Breathin ?? Tone: 2 ?? Movement: ??2 ?? AFV: ??0 -------- CLINICAL SUMMARY TRANSABDOMINAL IMAGING WAS PERFORMED TAO INTRAUTERINE GESTATION IN CEPHALIC PRESENTATION AMNIOTIC FLUID volume is decreased[OLIGOHYDRAMNIOS]., ??LGST POCKET= ??1.6 cm PLACENTAL LOCATION is anterior. MORPHOLOGY: Stomach, kidneys and bladder unremarkable. MOTION NOTED. HEART RATE: 144 /bpm. RESPIRATION observed. BIOPHYSICAL PROFILE: 07/26. PER PROTOCOL THE PT WAS SENT TO THE [facility] WITH A COPY OF THIS PRELIMINARY ??REPORT. STUDY LIMITED BY MATERNAL BODY HABITUS DISCUSSED WITH DR BARRIOS 5:20 PM 04/20/2011 Maya MAX RDMS ?Alva Mendez MD ? <Electronic Signature> 04/20/2011 Procedure Note Unknown - 08/19/2018 APD Historical Result Principal Venetian Blind Cleaner And Repairer: ALVA Cruz [facility] OBSTETRICAL ULTRASOUND REPORT Pat. Name: CAMILA LEDESMA Study Date: 04/20/201112:01pm Pat. No: [id number] Referring MD: NATHAN LMP: 08/04/2010 Excelsior Machine Tender: Maya MAX RDMS GA by LMP: 37.0 weeks , Age: 11 1985, 25 GA by 1st: 37.1 weeks GA [facility]: [facility] GA by US: SOO: 05/11/2011 Hist/Ind: BIO-HTN MEASUREMENTS & AGE GROWTH EVALUATION Measurement GA Range Source % for 37.1 Ratios ------- ------- Amniotic Fluid Index: 05.3 (07.5-24.4)* Q1: 1.3 Q2: 1.2 Q3: 1.6 Q4: 1.2 Biophysical Profile: 07/26 Breathin Tone: 2 Movement: 2 AFV: 0 CLINICAL SUMMARY TRANSABDOMINAL IMAGING WAS PERFORMED TAO INTRAUTERINE GESTATION IN CEPHALIC PRESENTATION AMNIOTIC FLUID volume is decreased[OLIGOHYDRAMNIOS]., LGST POCKET= 1.6cm PLACENTAL LOCATION is anterior. MORPHOLOGY: Stomach, kidneys and bladder unremarkable. MOTION NOTED. HEART RATE: 144 /bpm. RESPIRATION observed. BIOPHYSICAL PROFILE: 07/26. PER PROTOCOL THE PT WAS SENT TO THE [facility] WITH A COPY OF THIS PRELIMINARY REPORT. STUDY LIMITED BY MATERNAL BODY HABITUS DISCUSSED WITH DR BARRIOS 5:20 PM 04/20/2011 HERMAN SUTTON MD <Electronic Signature> 04/20/2011 Unknown IMG US OB ORDERABLES documented in this encounter Visit Diagnoses Not on filedocumented in this encounter Care Teams Oil Program Compliance Specialist Relationship Specialty Start Date End Date Aamda Carson MD [address] [place] [address] PCP - General 06/09/18 08/27/18 documented as of this encounter
--- OUTSIDE RECORDS SUMMARY | 2024-01-13 19:00 | XMS_ITS | Encounter Summary ---
Author Organization [facility] Address [facility] [address] Care Team Providers Care Traffic Signal Repairer Name Role Phone FerozMedardo church Primary Care Provider [phone]- [phone] Encounter Details Date Type Department Care Team (Late st Contact Info) Description 03/23/2010 Orders Only Obstetrics [place] [address] Reyna Bennett MD [facility] [address] OBSTETRICS [place] [address] Social History Tobacco Use Types Packs/Day Years Used Date Smoking Tobacco: Never Assessed [facility] Inpatient Questions Answer Date Recorded Does Anyone Try to Keep You From Having Contact with Others or Doing Things Outside Your Home? no 09/25/2022 Feels Threatened by Someone no 09/2022 Feels Unsafe at Home or Work/School no 09/25/2022 Physical Signs of Abuse Present no 09/25/2022 Comments Yes Sex and Gender Information Value [...] Associated Diagnosis Comments SURGICAL PATHOLOGY REPORT Routine 03/25/2010 10:31 AM EST documented in this encounter Results * Surgical Pathology Report (03/25/2010 10:31 AM EST) Surgical Pathology Report [id number] ? Location: BP; BP06; A The signing pathologist has (i) examined the relevant preparation(s) for the specimen(s) and (ii) rendered or confirmed the diagnosis(es). . ?Pathology Surgical Pathology Final Report Clinical Information Specimen Submitted: A - Placenta Clinical History: 39-4/7 weeks oligohydramnios, with HTN Clinical Diagnosis: Not provided Gross Description Labeled/Fixative: ? Labeled with the patient's name, fresh. Qty/Size/Weight: ?28.0 x 17.0 x 2.2 cm, 543 g. Tissue Description: ?? Ovoid placenta. ?? Membranes: ? Peripherally attached membranes are semitranslucent, ?pink-flores with a 100% marginal insertion. ?? Cord: ?14.0 x 1.2 cm; three vessels; Acentric insertion. ?Two additional segments of similar umbilical cord ?present separately in the container, 10.0 cm and ?18.0 cm in length. ?? Surface: ? Glistening, clear, flores-purple. ?? Maternal Surface: ??Appears complete and intact with a large amount of ?peripheral, loosely attached, old, red-brown blood ?clot. ?? Parenchyma: ?The specimen is serially sectioned at 0.5-cm to ?1.0-cm intervals. ??Sections show a homogeneous, red-brown, spongy parenchyma with no evidence of hemorrhages, infarcts, nor other placental abnormalities. Sections/Processing : ??Sections are submitted as follows: ??(1) membranes; ?(2) umbilical cord; (3) surface; (4) maternal ?surface. ??(R4) ??aje/EJR Microscopic Description Slides reviewed, microscopic description not recorded. Diagnosis Third trimester placenta, cord and membranes: Negative for chorioamnionitis or funisitis. CR-0 03/29/10 KO 03/29/10 Verified by: ? Ying Mark MD ?Pathologist ?(Electronic Signature) The attending pathologist whose signature appears on this report has reviewed all diagnostic slides and has edited the gross and/or microscopic portion of the report in rendering the final pathologic diagnosis. ROBBY CASTLE 03/25/2010 10:3 1 AM EST Reyna Bennett MD PATHOLOGY/CYTOLOGY O RDERABLES ROBBY CASTLE documented in this encounter Visit Diagnoses Not on filedocumented in this encounter Care Teams Traffic Signal Repairer Relationship Specialty Start Date End Date Medardo Redman DO [address] [place] [address] PCP - General Family Medicine 06/22/21 documented as of this encounter
--- OUTSIDE RECORDS SUMMARY | 2024-01-13 19:00 | XMS_ITS | Encounter Summary ---
[place] [address] Care Team Providers Care Intensive Care Nurse Name Role Phone None Primary Care Provider Unavailabl e Encounter Details Date Type Department Care Team (Late st Contact Info) Description 03/23/2010 10:15 AM EST Procedure visit Obstetrics [place] [address] Social History Tobacco Use Types Packs/Day Years [...] on filedocumented in this encounter Care Teams Intensive Care Nurse Relationship Specialty Start Date End Date None None PCP - General 01/10/10 05/31/10 documented as of this encounter
--- OUTSIDE RECORDS SUMMARY | 2024-01-13 19:00 | XMS_ITS | Encounter Summary ---
Author Organization [facility] [address] Care Team Providers Care Roll Capper Name Role Phone Amada Carson MD Primary Care Provider [phone] [phone] Encounter Details Date Type Department Care Team (Late st Contact Info) Description 01/02/2012 Orders Only Radiology and Cardiology Results [address] [place] [address] Apd Conversion, Results Provider, Social [...] Procedure Name Priority Date/Time Associated Diagnosis Comments SEDIMENTATION RATE Routine 01/02/2012 documented in this encounter Results * (ABNORMAL) Sedimentation rate (01/02/2012) Sedimentation Rate Automated 14(Manager Cancer al Lab) 0 - 20 GUALBERTO JAVED CONVERSION 01/02/2012 Results Provider Apd Conversion HEMAT OLOGY ORDERABLES GUALBERTO JAVED CONVERSION documented in this encounter Visit Diagnoses Not on filedocumented in this encounter Care Teams Roll Capper Relationship Specialty Start Date End Date Amada Carson MD [address] [place] [address] PCP - General 06/09/18 08/27/18 documented as of this encounter
--- OUTSIDE RECORDS SUMMARY | 2024-01-13 19:00 | XMS_ITS | Encounter Summary ---
Author Organization [facility] Address One [facility] [place] [address] Care Team Providers Care Securities Lending Trader Name Role Phone Amada Carson MD Primary Care Provider [phone] [phone] Encounter Details Date Type Department Care Team (Late st Contact Info) Description 07/12/2011 Interpretation Only Radiology [address] [place] [address] Unknown None Social History Tobacco Use Types [...] Associated Diagnosis Comments CT ABDOMEN AND PELVIS W CONTRAST Routine 07/12/2011 5:12 PM EDT documented in this encounter Results * CT Abdomen & Pelvis w Contrast (07/12/2011 5:12 PM EDT) Anatomical Region Laterality Modality Abdomen, Pelvis Computed Tomogra phy 07/12/2011 5:12 PM EDT Narrative 07/12/2011 5:12 PM EDT APD Historical Result Principal Muleser: ??STANISLAV ??MADELAINE CT ABDOMEN AND PELVIS: CLINICAL HISTORY: ??Lower abdominal pain, right-sided back pain. TECHNIQUE: ??CT abdomen and pelvis obtained following intravenous administration of 90 cc of Omnipaque-300. FINDINGS: Lung bases are clear. ??No suspicious pulmonary masses or nodules. ??No pericardiac or pleural effusions. ??Liver, gallbladder, spleen, pancreas, adrenal glands, and kidneys are unremarkable. ??Bowel is unremarkable and no retroperitoneal or mesenteric lymphadenopathy is seen. PELVIS: Unremarkable gynecologic organs. ??No pleural fluid or adenopathy. Evaluation of bone windows demonstrates no suspicious osseous lesions. IMPRESSION: No significant abnormalities noted to explain patient's abdominal pain. Stanislav Burkett MD AV/mn [id number] CC: Procedure Note Unknown - 08/19/2018 APD Historical Result Principal Muleser: STANISLAV BURKETT CT ABDOMEN AND PELVIS: CLINICAL HISTORY: Lower abdominal pain, right-sided back pain. TECHNIQUE: CT abdomen and pelvis obtained following intravenousadministration of 90 cc of Omnipaque-300. FINDINGS: Lung bases are clear. No suspicious pulmonary masses or nodules. Nopericardiac or pleural effusions. Liver, gallbladder, spleen, pancreas, adrenal glands, andkidneys are unremarkable. Bowel is unremarkable and no retroperitoneal or mesenteric lymphadenopathy isseen. PELVIS: Unremarkable gynecologic organs. No pleural fluid or adenopathy.Evaluation of bone windows demonstrates no suspicious osseous lesions. IMPRESSION: No significant abnormalities noted to explain patient'sabdominal pain. Stanislav Burkett MD AV/mn [id number] CC: Unknown IMG CT ORDERABLES documented in this encounter Visit Diagnoses Not on filedocumented in this encounter Care Teams Securities Lending Trader Relationship Specialty Start Date End Date [place] [address] PCP - General 06/09/18 08/27/18 documented as of this encounter
--- OUTSIDE RECORDS SUMMARY | 2024-01-13 19:00 | XMS_ITS | Encounter Summary ---
Author Organization [facility] [place] [address] Care Team Providers Care Appliquer Name Role Phone None Primary Care Provider Unavailabl e Reason for Visit * Reason Onset Date Comments Drainage from Incision 05/30/2010 Encounter Details Date Type Department Care Team (Late st Contact Info) Description 05/30/2010 Telephone Obstetrics and Gynecology at [facility] [place] [id number] Angela Muniz, RN Drainage from Incision Social History Tobacco Use Types Packs/Day Years Used Date Smoking Tobacco: Never Assessed Comments Yes Sex and Gender Information Value Date Recorded Sex Assigned at Not on file Gender Identity Not on file Sexual Orientation Not on file documented as of this encounter Miscellaneous Notes * Telephone Encounter - Angela Muniz RN - 05/30/2010 2:48 PM EDT Patient states she had a on 03/25/10 and was followed by [facility]. She was discharged from theircare on 05/04/10. Patient states she had been caring for her incision herself. She now complains of several days of oozing yellow discharge from incision site. Redness also noted. Patient was offered appointment with Isabella Fair who had seen her previously; patient declines. She is requesting evaluation by CNM or another provider. Plan: Appointment with CNM to evaluate; refer to MD service if needed. Patient agrees with this plan. documented in this encounter Plan of Treatment Not on file documented as of this encounter Visit Diagnoses Not on filedocumented in this encounter Care Teams Appliquer Relationship Specialty Start Date End Date None None PCP - General 01/10/10 05/31/10 documented as of this encounter
--- OUTSIDE RECORDS SUMMARY | 2024-01-13 19:00 | XMS_ITS | Encounter Summary ---
Author Organization [facility] Address One [facility] [place] [address] Care Team Providers Care Piece Goods Clerk Name Role Phone Amada Carson MD Primary Care Provider [phone] [phone] Encounter Details Date Type Department Care Team (Late st Contact Info) Description 11/27/2010 Interpretation Only Radiology 1 [facility] [place] [address] Unknown None Social History Tobacco Use Types [...] Priority Date/Time Associated Diagnosis Comments US OB LIMITED Routine 11/27/2010 4:37 PM EDT documented in this encounter Results * US OB Limited (11/27/2010 4:37 PM EDT) Anatomical Region Laterality Modality Pelvis, Abdomen Ultrasound 11/27/2010 4:37 PM EDT Narrative 11/27/2010 4:37 PM EDT APD Historical Result Principal Firing Pin Gauger: ?JOCE ??JAG Trevino [facility] OBSTETRICAL ULTRASOUND REPORT ? -------- Pat. Name: BALTAZAR KIMBERLI Waldrop ? Study Date: ?? 11/27/2010 4:53pm Pat. No: ?? [id number] ?Referring MD: TRAVIS^VELMA^Suhas LMP: ? 07/27/2010 ?Senior Center Manager: GA by LMP: 17.6 weeks ?, Age: ? 1985, 24 GA by 1st: 16.5 weeks ?GA Selected: ??16.5 weeks (From First U) GA by US: ?SOO: ?05/11/2011 Hist/Ind: ??DOCUMENT FHT'S -------- MEASUREMENTS & AGE ? GROWTH EVALUATION Measurement ?? GA ? Range ?Source ?? % for 16.5 Ratios ------- ------- ?? -------- CLINICAL SUMMARY TRANSABDOMINAL IMAGING WAS PERFORMED TAO INTRAUTERINE GESTATION IN BREECH PRESENTATION MOTION NOTED. HEART RATE: 147 /bpm. STUDY LIMITED BY MATERNAL BODY HABITUS A COPY OF THIS PRELIMINARY REPORT WAS FAXED TO [facility] ON 11/27/10 AT 16:55 HRS Maya MAX RDMS ?Elsie Dang MD ? <Electronic Signature> 11/27/2010 Procedure Note Unknown - 08/19/2018 APD Historical Result Principal Firing Pin Gauger: ELSIE Cruz [facility] OBSTETRICAL ULTRASOUND REPORT Pat. Name: KIMBERLI LEDESMA Study Date: 11/27/2010 4:53pm Pat. No: [id number] Referring MD: ROSETTA LMP: 07/27/2010 Senior Center Manager: GA by LMP: 17.6 weeks , Age: 9 1985, 24 GA by 1st: 16.5 weeks GA Selected: 16.5 weeks ([facility]) GA by US: SOO: 05/11/2011 Hist/Ind: DOCUMENT FHT'S MEASUREMENTS & AGE GROWTH EVALUATION Measurement GA Range Source % for 16.5 Ratios ------- ------- CLINICAL SUMMARY TRANSABDOMINAL IMAGING WAS PERFORMED TAO INTRAUTERINE GESTATION IN BREECH PRESENTATION MOTION NOTED. HEART RATE: 147 /bpm. STUDY LIMITED BY MATERNAL BODY HABITUS A COPY OF THIS PRELIMINARY REPORT WAS FAXED TO [facility] ON 11/27/10 AT16:55 HRS HERMAN SUTTON MD <Electronic Signature> 11/27/2010 Unknown IMG US OB ORDERABLES documented in this encounter Visit Diagnoses Not on filedocumented in this encounter Care Teams Piece Goods Clerk Relationship Specialty Start Date End Date Amada Carson MD [address] [place] [address] PCP - General 06/09/18 08/27/18 documented as of this encounter
--- OUTSIDE RECORDS SUMMARY | 2024-01-13 19:00 | XMS_ITS | Encounter Summary ---
Author Organization [facility] [place] [address] Care Team Providers Care Envelope Folding Machine Adjuster Name Role Phone Amada Carson MD Primary Care Provider +1 [phone] Encounter Details Date Type Department Care Team (Late st Contact Info) Description 04/28/2011 Orders Only Radiology and Cardiology Results [address] [place] [phone] Apd Conversion, Results Provider, Social History Tobacco [...] Date/Time Associated Diagnosis Comments URIC ACID Routine 04/28/2011 7:55 AM EST documented in this encounter Results * (ABNORMAL) Uric acid (04/28/2011 7:55 AM EST) Uric Acid 4.8(Bank Teller Machine Mechanic al Lab) 2.6 - 7.2 mg/dL GUALBERTO VILLAFUERTE CONVERSION 04/28/2011 7:55 AM EST Results Provider Apd Conversion MD GAVINO GALARZA ORDERABLES GUALBERTO VILLAFUERTE CONVERSION documented in this encounter Visit Diagnoses Not on filedocumented in this encounter Care Teams Envelope Folding Machine Adjuster Relationship Specialty Start Date End Date Amada Carson MD [address] [place] [address] PCP - General Family Medicine 08/28/18 01/21/20 documented as of this encounter
--- OUTSIDE RECORDS SUMMARY | 2024-01-13 19:00 | XMS_ITS | Encounter Summary ---
Author Organization [facility] Address One [facility] [place] [address] Care Team Providers Care Hat Cleaner Name Role Phone Amada Carson MD Primary Care Provider +1 [phone] Encounter Details Date Type Department Care Team (Late st Contact Info) Description 10/09/2010 Interpretation Only Radiology 1 [facility] [place] [address] Unknown None Social History Tobacco Use Types [...] Priority Date/Time Associated Diagnosis Comments US OB TRANSVAGINAL Routine 10/09/2010 9: 53 AM EDT documented in this encounter Results * US OB Viability Transvaginal (10/09/2010 9:53 AM EDT) Anatomical Region Laterality Modality Pelvis, Abdomen Ultrasound 10/09/2010 9:53 AM EDT Narrative 10/09/2010 9:53 AM EDT APD Historical Result Principal Leather Crafter: ??GERALD ??PARISA Trevino [facility] OBSTETRICAL ULTRASOUND REPORT ? -------- Pat. Name: EULOGIO LEDESMA ? Study Date: ?? 10/09/2010 10:37am Pat. No: ?? [id number] ?Referring MD: DENIS LMP: ? 07/27/2010 ?Director Business Development: ??KEVIN MENA GA by LMP: 10.6 weeks ?, Age: ? 1985, 24 GA by [facility]: ? GA Selected: ??09.5 weeks (Sonographic) GA by US: ??09.5 weeks ?SOO: ?05/11/2011 Hist/Ind: ??DATING -------- MEASUREMENTS & AGE ? GROWTH EVALUATION Measurement ?? GA ? Range ?Source ?? % for 09.5 Ratios ------- ------- ?? CRL ??2.7 cm 09.5 wk (08.7-10.3) Hadlock ??CRL ??50% GA for sonogram 09.5 wk (08.7-10.3) ? Weight Estimate: based on (CRL) Avg ? Weight: ??gm (-) -------- CLINICAL SUMMARY TRANSVAGINAL AND TRANSABDOMINAL IMAGING WAS PERFORMED +IUP Yolk sac seen-normal. HEART RATE: 178 /bpm. RIGHT OVARY measures: 3.5 X 2.7 X 3.1 CM, CORPUS LUTEUM CYST: 2.5 X 1.5 X 2.3 CM LEFT OVARY measures: NOT SEEN. MOTION NOTED. STUDY LIMITED BY MATERNAL BODY HABITUS KEVIN MENA ?Gerald Hahn MD ? <Electronic Signature> 10/09/2010 Procedure Note Unknown - 08/19/2018 APD Historical Result Principal Leather Crafter: GERALD Cruz [facility] OBSTETRICAL ULTRASOUND REPORT Pat. Name: EULOGIO LEDESMA Study Date: 10/09/201010:37am Pat. No: [id number] Referring MD: DENIS LMP: 07/27/2010 Director Business Development: KEVIN MENA GA by LMP: 10.6 weeks , Age: 9 1985, 24 GA by 1st: GA Selected: 09.5 weeks([facility]ographic) GA by US: 09.5 weeks SOO: 05/11/2011 Hist/Ind: DATING MEASUREMENTS & AGE GROWTH EVALUATION Measurement GA Range Source % for 09.5 Ratios ------- ------- CRL 2.7 cm 09.5 wk (08.7-10.3) Hadlock CRL 50% GA for sonogram 09.5 wk (08.7-10.3) Weight Estimate: based on (CRL) Avg Weight: gm (-) CLINICAL SUMMARY TRANSVAGINAL AND TRANSABDOMINAL IMAGING WAS PERFORMED +IUP Yolk sac seen-normal. HEART RATE: 178 /bpm. RIGHT OVARY measures: 3.5 X 2.7 X 3.1 CM, CORPUS LUTEUM CYST: 2.5 X 1.5 X2.3 CM LEFT OVARY measures: NOT SEEN. MOTION NOTED. STUDY LIMITED BY MATERNAL BODY HABITUS KEVIN MENA MD <Electronic Signature> 10/09/2010 Unknown IMG US OB ORDERABLES documented in this encounter Visit Diagnoses Not on filedocumented in this encounter Care Teams Hat Cleaner Relationship Specialty Start Date End Date Amada Carson MD [address] [place] [address] PCP - General 06/09/18 08/27/18 documented as of this encounter
--- OUTSIDE RECORDS SUMMARY | 2024-01-13 19:00 | XMS_ITS | Encounter Summary ---
Author Organization [facility] Address One [facility] [place] [address] Care Team Providers Care Preschool Head Teacher Name Role Phone Amada Carson MD Primary Care Provider [phone] [phone] Encounter Details Date Type Department Care Team (Late st Contact Info) Description 07/12/2011 Interpretation Only Radiology 1 [facility] [address] Unknown None Social History Tobacco Use Types [...] Comments US PELVIS AND TRANSVAGINAL COMPLETE Routine 07/12/2011 3:25 PM EDT documented in this encounter Results * US PELVIS AND TRANSVAGINAL COMPLETE (07/12/2011 3:25 PM EDT) Anatomical Region Laterality Modality Other 07/12/2011 3:25 PM EDT Narrative 07/12/2011 3:25 PM EDT APD Historical Result Principal Sand Caster: ??STANISLAV ??MADELAINE PELVIC ULTRASOUND - TRANSABDOMINAL AND ENDOVAGINAL: CLINICAL HISTORY: ??Lower abdominal/pelvic pain. ??Ten weeks . FINDINGS: Uterus measures 8 cm in length with endometrial stripe thickness of 1.1 cm. ??No evidence of retained products of conception is seen. ??No endometrial fluid. ??Right and left ovaries are seen, measure 3.6 x 2.3 x 2.7 cm and 2.3 x 1.7 x 2.7 cm and appear unremarkable without large cysts. ??No pelvic fluid is seen. ??Large amount of fluid-filled bowel fills the pelvis and the posterior cul-de-sac. IMPRESSION: No significant abnormality. Stanislav Burkett MD AV/mn [id number] CC: Procedure Note Unknown - 08/19/2018 APD Historical Result Principal Sand Caster: STANISLAV BURKETT PELVIC ULTRASOUND - TRANSABDOMINAL AND ENDOVAGINAL: CLINICAL HISTORY: Lower abdominal/pelvic pain. Ten weeks . FINDINGS: Uterus measures 8 cm in length with endometrial stripe thickness of 1.1cm. No evidence of retained products of conception is seen. No endometrial fluid. Right andleft ovaries are seen, measure 3.6 x 2.3 x 2.7 cm and 2.3 x 1.7 x 2.7 cm and appear unremarkable withoutlarge cysts. No pelvic fluid is seen. Large amount of fluid-filled bowel fills the pelvisand the posterior cul-de-sac. IMPRESSION: No significant abnormality. Stanislav Burkett MD AV/mn [id number] CC: Unknown PACS IMAGES documented in this encounter Visit Diagnoses Not on filedocumented in this encounter Care Teams Preschool Head Teacher Relationship Specialty Start Date End Date [place]ada [place] [address] PCP - General 06/09/18 08/27/18 documented as of this encounter
--- OUTSIDE RECORDS SUMMARY | 2024-01-13 19:00 | XMS_ITS | Encounter Summary ---
Author Organization Count Includes [facility] [address] Care Team Providers Care Dehydrogenation Operator Name Role Phone Amada Carson MD Primary Care Provider [phone] [phone] Encounter Details Date Type Department Care Team (Late st Contact Info) Description 11/30/2011 Orders Only Radiology and Cardiology Results [address] [place] [address] Apd Conversion, Results Provider, Social [...] Priority Date/Time Associated Diagnosis Comments TSH Routine 11/30/2011 documented in this encounter Results * (ABNORMAL) TSH (11/30/2011) Thyroid Stimulating Hormone 2.260(Ext ernal Lab) 0.358 - 3.74 GUALBERTO JAVED CONVERSION 11/30/2011 Results Provider Apd Conversion MD GAVINO GALARZA ORDERABLES GUALBERTO JAVED CONVERSION documented in this encounter Visit Diagnoses Not on filedocumented in this encounter Care Teams Dehydrogenation Operator Relationship Specialty Start Date End Date Amada Carson MD [address] [place] [address] PCP - General 06/09/18 08/27/18 documented as of this encounter
--- OUTSIDE RECORDS SUMMARY | 2024-01-13 19:00 | XMS_ITS | Encounter Summary ---
Author Organization [facility] [place] [address] Care Team Providers Care Shift Supervisor Melting Name Role Phone Amada Carson MD Primary Care Provider [phone] [phone] Encounter Details Date Type Department Care Team (Late st Contact Info) Description 10/05/2010 Orders Only Radiology and Cardiology Results [address] [place] [id number] Apd Conversion, Results Provider, Social History Tobacco [...] Date/Time Associated Diagnosis Comments CYTOPATHOLOGY GYNECOLOGICAL Routine 10/05/2010 documented in this encounter Results * (ABNORMAL) Cytopathology Gynecological (10/05/2010) Cutter Inspector Cytology Final Report Please see Nancy Javed legacy report(Exte rnal Lab) NANCY JAVED CONVERSION 10/05/2010 Narrative NANCY JAVED CONVERSION - 10/27/2010 Please see Nancy Javed Legacy report Results Provider Apd Conversion PATHO LOGY/CYTOLOGY ORDERABLES NANCY JAVED CONVERSION documented in this encounter Visit Diagnoses Not on filedocumented in this encounter Care Teams Shift Supervisor Melting Relationship Specialty Start Date End Date Amada Carson MD [address] [place] [address] PCP - General Family Medicine 08/28/18 01/21/20 documented as of this encounter
--- OUTSIDE RECORDS SUMMARY | 2024-01-13 19:00 | XMS_ITS | Encounter Summary ---
Author Organization [facility] [place] [address] Care Team Providers Care Wood Turner Name Role Phone None Primary Care Provider Unavailabl e Encounter Details Date Type Department Care Team (Latest Contact Info) Description 03/23/2010 11:12 AM EST - 03/28/2010 5:30 PM EST Hospital [place] [address] Stefan Beckwith MD [facility] [address] OBSTETRICS & [place] [address] Reyna Bennett MD [facility] [address] OBSTETRICS [place] [address] Discharge Disposition: Home Social History Tobacco Use [...] Procedure Name Priority Date/Time Associated Diagnosis Comments CREATININE STAT 03/28/2010 11:30 AM EST BUN STAT 03/28/2010 11:30 AM EST GENTAMICIN LEVEL, RANDOM Routine 03/28/2010 11:30 AM EST DIFFERENTIAL, AUTOMATED Routine 03/26/2010 6:19 AM EST CBC (WITH DIFF) Routine 03/26/2010 6:19 AM EST SURGICAL PATHOLOGY REPORT Routine 03/25/2010 10:31 AM EST BLOOD GAS ARTERIAL CORD STAT 03/25/2010 6:10 AM EST BLOOD GAS VENOUS CORD STAT 03/25/2010 6:10 AM EST ABO/RH TYPING STAT 03/23/2010 12:44 PM EST ANTIBODY SCREEN STAT 03/23/2010 12:44 PM EST DIFFERENTIAL, AUTOMATED STAT 03/23/2010 11:47 AM EST CBC (WITH DIFF) STAT 03/23/2010 11:47 AM EST documented in this encounter Results * (ABNORMAL) CREATININE, SERUM (03/28/2010 11:30 AM EST) Creatinine 0.53(L) 0.70 - 1.20 mg/dL CERNER MILLENNIUM Est Glomerular Filtration Rate >60 >=60 CERNER MILLENNIUM Comment: The National Kidney Disease Education Program (NKDEP) has recommended all laboratories report estimated GFR (eGFR) along with plasma creatinine measurements to assist you with recognition of early kidney disease. Caveats: ??Plasma creatinine should be at steady-state (unchanged within the past week). ??Patient age > = 18 years, and for Americans multiply eGFR by 1.2. At present, NKDEP does NOT recommend using the MDRD equation for drug dosing purposes and pharmacists should continue to use their current dosing methods. In addition, numerical eGFR values greater than 60 ml/min/1.73 square meters should be treated as > 60, and not an exact number due to greater inaccuracies at these higher values. Per NKDEP, they classify normal renal function as any GFR >60ml/min/1.73 square meters; chronic kidney disease when GFR <60, and renal failure when GFR <15. ??This calculation may not be valid for patients with atypical muscle mass (very lean or obese), acute renal failure, and in patients with diabetic kidney disease. References: http://nkdep.nih.gov/resources/NKDEP_Suggestn4Labs_0606_508.pdf http://www.kidney.org/professionals/kls/pdf/faq_gfr.pdf Blood specimen (specimen) 03/28/2010 11:30 AM EST 03/28/2010 11:58 AM EST Reyna Bennett MD CHEMISTRY ORDERABLES Performing Organization Address City/[facility] de Phone Number CERNER MILLENNIUM * (ABNORMAL) BUN (03/28/2010 11:30 AM EST) Blood Urea Nitrogen 6(L) 8 - 18 mg/dL CERNER MILLENNIUM Blood specimen (specimen) 03/28/2010 11:30 AM EST 03/28/2010 11:58 AM EST Reyna Bennett MD CHEMISTRY ORDERABLES Performing Organization Address [facility] Co de Phone Number CERNER MILLENNIUM * GENTAMICIN LEVEL, RANDOM (03/28/2010 11:30 AM EST) Gentamicin, 6-14 hour Post Dose <0.3 mg/L CERNER MILLENNIUM Comment: This is a 6-14 hour post dose level (7mg/kg dosing only). ??Plug into Mike (7 mg/kg) Nomogram located at http://www.[facility].org/qbzm-eftzapqx-vvhjqy/file_collection/Aminoglycosides%20Fin al.doc Gent Dose Dt 03/27/2010 CERNER MILLENNIUM Gent Dose Tm 0600 CERNER MILLENNIUM Blood specimen (specimen) 03/28/2010 11:30 AM EST 03/28/2010 11:58 AM EST Reyna Bennett MD CHEMISTRY ORDERABLES CERNER MILLENNIUM * (ABNORMAL) REFLEX LAB-A-DIFF (03/26/2010 6:19 AM EST) Neutrophil % 73.6(H) 34.0 - 71.0 % CERNER MILLENNIUM Neutrophil Absolute 7.77(H) 1.50 - 6.30 x10(3)/mc L CERNER MILLENNIUM Lymph % 15.2(L) 19.0 - 53.0 % CERNER MILLENNIUM Lymphocytes Abs 1.6 1.0 - 3.6 x10(3)/mc L CERNER MILLENNIUM Monocyte % 9.9 4.0 - 13.0 % CERNER MILLENNIUM Monocyte Abs 1.0 0.2 - 1.0 x10(3)/mc L CERNER MILLENNIUM Eos % 0.8 0.0 - 7.0 % CERNER MILLENNIUM Eosinophils Abs 0.1 0.0 - 0.5 x10(3)/mc L CERNER MILLENNIUM Basophil % 0.1 0.0 - 2.0 % CERNER MILLENNIUM Baso Absolute 0.0 0.0 - 0.2 x10(3)/mc L CERNER MILLENNIUM Immature Gran % 0.40 0.00 - 0.66 % CERNER MILLENNIUM Comment: Immature granulocytes(IG's)percentage and absolute count will include metamyelocytes, myelocytes, and promyelocytes. Blood smears from CBCs yielding IG's will be scanned manually for concordance. If this scan disagrees with the automated IG or if promyelocytes are noted, a manual differential will be performed. Immature Gran Absolute 0.04 0.00 - 0.05 x10(3)/mc L CERNER MILLENNIUM Blood specimen (specimen) 03/26/2010 6:19 AM EST 03/26/2010 6:19 AM EST Stefan Beckwith MD HEMATOLOGY ORDERABLE S CERDAX TAYLORENNIUM * (ABNORMAL) CBC (03/26/2010 6:19 AM EST) White Blood Cell 10.5(H) 4.0 - 10.0 x10(3)/mc L CERNER MILLENNIUM Red Blood Cell 3.45(L) 3.93 - 5.22 x10(6)/mc L CERNER MILLENNIUM Hemoglobin 9.9(L) 11.2 - 15.7 gm/dL CERNER MILLENNIUM Hematocrit 29.9(L) 34.0 - 45.0 % CERNER MILLENNIUM Mean Cell Volume 86.7 79.0 - 94.0 fL CERNER MILLENNIUM Mean Cell Hemoglobin 28.7 26.6 - 32.2 pg CERNER MILLENNIUM Mean Cell Hemoglobin Concentration 33.1 32.0 - 36.5 gm/dL CERNER MILLENNIUM Platelet 155 145 - 370 x10(3)/mc L CERNER MILLENNIUM RDW Standard Deviation 45.0 35.0 - 46.0 fL CERNER MILLENNIUM RDW coefficient of variation 14.3 10.9 - 14.4 % CERNER MILLENNIUM Mean Platelet Volume 10.1 9.0 - 12.0 fL CERNER MILLENNIUM Blood specimen (specimen) 03/26/2010 6:19 AM EST 03/26/2010 6:19 AM EST Stefan Beckwith MD HEMATOLOGY ORDERABLE S [facility] * PATHOLOGY SURGICAL PATHOLOGY FINAL REPORT (03/25/2010 10:31 AM EST) Surgical Pathology Report ? [facility] ? Provider: ?? REYNA BENNETT ?Pt. Name: ?? CAMILA LEDESMA ? Acc #: ?[id number] ?Pt. ? Col Date: ?? 03/25/2010 ?/Sex: ?1985,(24 years),Female ? Rec Date: ?? 03/27/2010 ?LOC: ?BP ? SURGICAL PATHOLOGY ? ---Pathologic Diagnosis--- ? Third trimester placenta, cord and membranes: ? Negative for chorioamnionitis or funisitis. ? CR-0 ? 03/29/10 ? KO ? 03/29/10 Verified by: ? Ying Mark MD ? Pathologist ? (Electronic Signature) ? The attending pathologist whose signature appears on this report has ? reviewed all diagnostic slides and has edited the gross and/or ? microscopic portion of the report in rendering the final pathologic ? diagnosis. ? ---Microscopic Description--- ? Slides reviewed, microscopic description not recorded. ? ---Gross Description--- ? Labeled/Fixative: ? Labeled with the patient's name, fresh. ? Qty/Size/Weight: ?28.0 x 17.0 x 2.2 cm, 543 g. ? Tissue Description: ?? Ovoid placenta. ?Membranes: ? Peripherally attached membranes are semitranslucent, ? pink-flores with a 100% marginal insertion. ?Cord: ?14.0 x 1.2 cm; three vessels; Acentric insertion. ? Two additional segments of similar umbilical cord ? present separately in the container, 10.0 cm and ? 18.0 cm in length. ? Surface: ? Glistening, clear, flores-purple. ?Maternal Surface: ??Appears complete and intact with a large amount of ? peripheral, loosely attached, old, red-brown blood ? clot. ?Parenchyma: ?The specimen is serially sectioned at 0.5-cm to ? 1.0-cm intervals. ??Sections show a homogeneous, red- ? brown, spongy parenchyma with no evidence of hemorrhages, infarcts, nor ? other placental abnormalities. ? Sections/Processing : ??Sections are submitted as follows: ??(1) membranes; ? (2) umbilical cord; (3) surface; (4) maternal ? surface. ??(R4) ??aje/EJR ? [facility] ? Provider: ?? REYNA BENNETT ?Pt. Name: ?? CAMILA LEDESMA ? Acc #: ?[id number] ?Pt. ? Col Date: ?? 03/25/2010 ?/Sex: ?1985,(24 years),Female ? Rec Date: ?? 03/27/2010 ?LOC: ?BP ? SURGICAL PATHOLOGY ? ---Clinical Information--- ? Specimen Submitted: ? A - Placenta ? Clinical History: ? 39-4/7 weeks oligohydramnios, with HTN ? Clinical Diagnosis: ? Not provided CERNER MILLENNIUM 03/25/2010 10:3 1 AM EST Reyna Bennett MD PATHOLOGY/CYTOLOGY O RDERABLES Performing Organization Address City/[facility] Co de Phone Number ROBBY DAYIUM * REFLEX LAB-BLOOD GAS, VENOUS, CORD (03/25/2010 6:10 AM EST) pH, Cord Venous 7.26 CERNER MILLENNIUM pCO2, Cord Venous 64 mmHg CERNER MILLENNIUM pO2, Cord Venous 15 mmHg CERNER MILLENNIUM Base Excess, Cord Venous 0.8 mmol/L CERNER MILLENNIUM O2HB, Cord Venous 17.0 % CERNER MILLENNIUM Blood Gas Source Cord Arterial CERNER MILLENNIUM Blood specimen (specimen) 03/25/2010 6:10 AM EST 03/25/2010 6:15 AM EST Stefan Beckwith MD CHEMISTRY ORDERABLES Performing Organization Address City/State/[facility] Co de Phone Number ROBBY DAYIUM * REFLEX LAB-BLOOD GAS, ARTERIAL, CORD (03/25/2010 6:10 AM EST) pH, Cord Arterial 7.37 CERNER MILLENNIUM pCO2, Cord Arterial 43 mmHg CERNER MILLENNIUM pO2, Cord Arterial 44 mmHg CERNER MILLENNIUM Base Excess, Cord Arterial -0.8 mmol/L CERNER MILLENNIUM O2HB, Cord Arterial 81.8 % CERNER MILLENNIUM Blood Gas Source Cord Venous CERNER MILLENNIUM Blood specimen (specimen) 03/25/2010 6:10 AM EST 03/25/2010 6:15 AM EST Stefan Beckwith MD CHEMISTRY ORDERABLES ROBBY DAYIUM * REFLEX LAB-ANTIBODY SCREEN (03/23/2010 12:44 PM EST) Ab Screen Interp Negative CERDAX TAYLORENNIUM Expires at [id number] on: [id number] ROBBY TAYLORENNIUM Blood specimen (specimen) 03/23/2010 12:44 PM EST 03/23/2010 12:44 PM EST Stefan Beckwith MD BLOOD BANK LAB ORDER APOLLO Performing Organization Address City/[facility]/ZIP Co de Phone Number ROBBY DAYIUM * REFLEX LAB-ABO/RH (03/23/2010 12:44 PM EST) ABORH Type O Pos ROBBY DAYIUM Blood specimen (specimen) 03/23/2010 12:44 PM EST 03/23/2010 12:44 PM EST Stefan Beckwith MD BLOOD BANK LAB ORDER APOLLO Performing Organization Address City/[facility]/ZIP Co de Phone Number ROBBY DAYIUM * (ABNORMAL) REFLEX LAB-A-DIFF (03/23/2010 11:47 AM EST) Neutrophil % 73.8(H) 34.0 - 71.0 % CERNER MILLENNIUM Neutrophil Absolute 7.64(H) 1.50 - 6.30 x10(3)/mc L CERNER MILLENNIUM Lymph % 17.2(L) 19.0 - 53.0 % CERNER MILLENNIUM Lymphocytes Abs 1.8 1.0 - 3.6 x10(3)/mc L CERNER MILLENNIUM Monocyte % 7.7 4.0 - 13.0 % CERNER MILLENNIUM Monocyte Abs 0.8 0.2 - 1.0 x10(3)/mc L CERNER MILLENNIUM Eos % 0.5 0.0 - 7.0 % CERNER MILLENNIUM Eosinophils Abs 0.1 0.0 - 0.5 x10(3)/mc L CERNER MILLENNIUM Basophil % 0.2 0.0 - 2.0 % CERNER MILLENNIUM Baso Absolute 0.0 0.0 - 0.2 x10(3)/mc L CERNER MILLENNIUM Immature Gran % 0.60 0.00 - 0.66 % CERNER MILLENNIUM Comment: Immature granulocytes(IG's)percentage and absolute count will include metamyelocytes, myelocytes, and promyelocytes. Blood smears from CBCs yielding IG's will be scanned manually for concordance. If this scan disagrees with the automated IG or if promyelocytes are noted, a manual differential will be performed. Immature Gran Absolute 0.06(H) 0.00 - 0.05 x10(3)/mc L CERNER MILLENNIUM Blood specimen (specimen) 03/23/2010 11:47 AM EST 03/23/2010 12:38 PM EST Stefan Beckwith MD HEMATOLOGY ORDERABLE S CERNER MILLENNIUM * (ABNORMAL) CBC (03/23/2010 11:47 AM EST) White Blood Cell 10.4(H) 4.0 - 10.0 x10(3)/mc L CERNER MILLENNIUM Red Blood Cell 3.98 3.93 - 5.22 x10(6)/mc L CERNER MILLENNIUM Hemoglobin 11.3 11.2 - 15.7 gm/dL CERNER MILLENNIUM Hematocrit 34.4 34.0 - 45.0 % CERNER MILLENNIUM Mean Cell Volume 86.4 79.0 - 94.0 fL CERNER MILLENNIUM Mean Cell Hemoglobin 28.4 26.6 - 32.2 pg CERNER MILLENNIUM Mean Cell Hemoglobin Concentration 32.8 32.0 - 36.5 gm/dL CERNER MILLENNIUM Platelet 216 145 - 370 x10(3)/mc L CERNER MILLENNIUM RDW Standard Deviation 43.2 35.0 - 46.0 fL CERNER MILLENNIUM RDW coefficient of variation 13.8 10.9 - 14.4 % CERNER MILLENNIUM Mean Platelet Volume 10.3 9.0 - 12.0 fL CERNER MILLENNIUM Blood specimen (specimen) 03/23/2010 11:47 AM EST 03/23/2010 12:38 PM EST Stefan Beckwith MD HEMATOLOGY ORDERABLE S ROBBY BRANDONRITA documented in this encounter Visit Diagnoses Not on filedocumented in this encounter Active and Recently Administered Medications Care Teams Wood Turner Relationship Specialty Start Date End Date None None PCP - General 01/10/10 05/31/10 documented as of this encounter
--- OUTSIDE RECORDS SUMMARY | 2024-01-13 19:00 | XMS_ITS | Encounter Summary ---
Author Organization [facility] Address [facility] [place] [address] Care Team Providers Care Field Recorder Name Role Phone Amada Carson MD Primary Care Provider [phone] Encounter Details Date Type Department Care Team (Late st Contact Info) Description 01/08/2012 Interpretation Only Radiology [address] [place] [address] Unknown None Social History Tobacco Use Types [...] Comments MRI BRAIN WWO CONTRAST (GENERIC) Routine 01/08/2012 11:43 AM EST documented in this encounter Results * MRI Brain wwo Contrast (Generic) (01/08/2012 11:43 AM EST) Anatomical Region Laterality Modality Head Magnetic Resonan ce 01/08/2012 11:4 3 AM EST Narrative 01/08/2012 11:43 AM EST APD Historical Result Principal Executive Administrative Assistant: ??MARGUERITE ??B MRI BRAIN PRIOR TO AND FOLLOWING UNEVENTFUL IV GADOLINIUM ADMINISTRATION: CLINICAL HISTORY: ??Severe headaches with pulsatile tinnitus. The study consists of multiplanar images acquired with a 1.5 yulisa MRI device operating in a usual fashion. ??T1 images were obtained before and after uneventful intravenous injection of 17 cc of ProHance via right antecubital vein access. There are no prior studies for review and comparison. FINDINGS: Images obtained before IV contrast administration reveal a bilaterally symmetric normal-appearing brain architecture pattern. ??There are no MRI findings of intracranial hemorrhage, mass effect, or focal areas of demyelinization. ??The 3rd, 4th, and lateral ventricles appear normal. Midline structures are undisturbed. ??Portions of the paranasal sinuses imaged with the study appear normal with no air-fluid levels or excessively thickened mucosa seen. T1 images after gadolinium administration are unremarkable revealing normal symmetric vascular distribution. ??No contrast-enhancing foci seen. IMPRESSION: No specific MRI abnormality seen. Marguerite Umana MD, FACR [facility]/wv [id number] CC: Procedure Note Unknown - 08/18/2018 APD Historical Result Principal Executive Administrative Assistant: MARGUERITE Jaimes MRI BRAIN PRIOR TO AND FOLLOWING UNEVENTFUL IV GADOLINIUMADMINISTRATION: CLINICAL HISTORY: Severe headaches with pulsatile tinnitus. The study consists of multiplanar images acquired with a 1.5 yulisa MRIdevice operating in a usual fashion. T1 images were obtained before and after uneventfulintravenous injection of 17 cc of ProHance via right antecubital vein access. There are no prior studies for review and comparison. FINDINGS: Images obtained before IV contrast administration reveal a bilaterallysymmetric normal-appearing brain architecture pattern. There are no MRI findings ofintracranial hemorrhage, mass effect, or focal areas of demyelinization. The 3rd, 4th, and lateral ventriclesappear normal. Midline structures are undisturbed. Portions of the paranasal sinuses imaged withthe study appear normal with no air-fluid levels or excessively thickened mucosa seen. T1 images after gadolinium administration are unremarkable revealingnormal symmetric vascular distribution. No contrast-enhancing foci seen. IMPRESSION: No specific MRI abnormality seen. Marguerite Umana MD, FACR [facility]/sandy [id number] CC: Unknown IMG MRI ORDERABLES documented in this encounter Visit Diagnoses Not on filedocumented in this encounter Care Teams Field Recorder Relationship Specialty Start Date End Date Amada Carson MD [address] [place] [address] PCP - General 06/09/18 08/27/18 documented as of this encounter
--- OUTSIDE RECORDS SUMMARY | 2024-01-13 19:00 | XMS_ITS | Encounter Summary ---
Author Organization [facility] [place] [address] Care Team Providers Care Shop Laborer Name Role Phone Gabrielle Pelaez APRN Primary Care Provider [phone] Reason for Visit * Reason Comments Medication Refill Encounter Details Date Type Department Care Team (Late st Contact Info) Description 01/29/2011 Refill Obstetrics [place] [address] [facility]ae[facility] [place] [address] Social History Tobacco Use Types Packs/Day Years [...] on filedocumented in this encounter Care Teams Shop Laborer Relationship Specialty Start Date End Date Gabrielle Pelaez APRN [address] [place] [address] PCP - General 06/01/10 02/04/12 documented as of this encounter
--- OUTSIDE RECORDS SUMMARY | 2024-01-13 19:00 | XMS_ITS | Encounter Summary ---
Author Organization [facility] [place] [address] Care Team Providers Care Embedded Firmware Developer Name Role Phone Unavailable Primary Care Provider Unavailabl e Reason for Visit * Reason Comments Follow-up Encounter Details Date Type Department Care Team (Late st Contact Info) Description 02/29/2012 10:30 AM EST Follow-Up Hematology [place] [address] Ewa Mauro MD [facility] [address] HEMATOLOGY [place] [address] Bleeding (Primary Dx) Discharge Disposition: Home Social History [...] Sign Reading Time Taken Comments Blood Pressure 130/80 02/29/2012 10:26 AM EST Pulse 97 02/29/2012 10:26 AM EST Temperature - - Respiratory Rate 16 02/29/2012 10:26 AM EST Oxygen Saturation 99% 02/29/2012 10:26 AM EST Inhaled Oxygen Concentration - - Weight 115 kg (253 lb 8.5 oz) 02/29/2012 10:26 A M EST Height 168.5 cm (5' 6.34) 02/29/2012 10:[address] Body Mass Index 40.5 02/29/2012 10:26 AM EST documented in this encounter Patient Instructions * Patient Instructions* Ewa Garcia MD - 02/29/2012 10:05 AM EST There is no evidence of bleeding disorder. Results for CAMILA LEDESMA ( ) as of 02/29/2012 10:04 Ref. Range 02/08/2012 09:53 WBC Latest Range: 4.0-10.0 x10(3)/mcL 5.6 RBC Latest Range: 3.93-5.22 x10(6)/mcL 4.51 Hemoglobin Latest Range: 11.2-15.7 gm/dL 13.3 Hematocrit Latest Range: 34.0-45.0 % 39.3 MCV Latest Range: 79.0-94.0 fL 87.1 MCH Latest Range: 26.6-32.2 pg 29.5 MCHC Latest Range: 32.0-36.5 gm/dL 33.8 RDWSD Latest Range: 35.0-46.0 fL 42.0 RDWCV Latest Range: 10.9-14.4 % 13.1 Platelets Latest Range: 145-370 x10(3)/mcL 223 MPV Latest Range: 9.0-12.0 fL 9.6 Neutr Abs (ANC) Latest Range: 1.50-6.30 x10(3)/mcL 3.09 Neutrophils % Latest Range: 34.0-71.0 % 55.6 Immature Gran % Latest Range: 0.00-0.66 % 0.00 Lymphocytes % Latest Range: 19.0-53.0 % 36.6 Monocytes % Latest Range: 4.0-13.0 % 5.8 Eosinophils % Latest Range: 0.0-7.0 % 1.6 Basophils % Latest Range: 0.0-2.0 % 0.4 Roberta Gran Abs Latest Range: 0.00-0.05 x10(3)/mcL 0.00 Lymphocytes Abs Latest Range: 1.0-3.6 x10(3)/mcL 2.0 Monocyte Abs Latest Range: 0.2-1.0 x10(3)/mcL 0.3 Eosinophils Abs Latest Range: 0.0-0.5 x10(3)/mcL 0.1 Basophils Abs Latest Range: 0.0-0.2 x10(3)/mcL 0.0 PT Latest Range: 11.9-14.7 sec 13.0 INR Latest Range: 0.9-1.1 1.0 PTT Latest Range: 25-35 sec 29 Fibrinogen Latest Range: 220-480 mg/dL 399 Thrombin Time Latest Range: 15-20 sec 15 Save Plasma No range found Sample saved in Lab Factor 8 Assay Latest Range: 50-150 % 106 Factor 11 Assay Latest Range: 50-150 % 186 (H) vWF Antigen No range found 93 vWF Anti Interp No range found ABO blood group h... vWF Activity Latest Range: 50-150 % activity 85 Col/Epi Latest Range: 90-160 sec 153 Col/ADP Latest Range: 50-120 sec 97 documented in this encounter Progress Notes * Ewa Garcia MD - 03/03/2012 4:32 PM EST [facility] Department of Medicine [place] [address] [facility] HEMOSTASIS FOLLOW-UP DATE OF VISIT 02/29/12 Patient Camila Ledesma 1985 REFERRING PHYSICIAN Amada Carson MD PRIMARY CARE PHYSICIAN Amada Carson MD HEMOSTASIS PROBLEM LIST: Post operative bleeding INTERVAL HISTORY: Camila Ledesma is a 26 year-old woman with history of postoperative bleeding following cesareansection, who is seen in follow-up to discuss hemostasis testing. Camila denies any bleeding event since last visit. She has no complaint today. She has been taking diamox for almost 2 months for her headache and it has worked. She denies any NSAIDs use. PAST MEDICAL HISTORY Headache OPERATIVE PROCEDURES [place] tooth extraction C-sections MEDICATIONS Diamox MVI ADVERSE DRUG REACTIONS Allergies as of 02/29/2012 - Review Complete 02/29/2012 Allergen Reaction Noted ??? Red dye ??? 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[place] Lives in [place] No tobacco Alcohol rare REVIEW OF SYSTEMS Fevers/chills/sweats No Recent infections No Unexplained weight loss No Headache/lightheadedness/syncope No Sinus pain/pressure No Oral sores/lesions/bleeding No Sore throat/dysphagia No Nosebleeds More frequent since last delivery Cough/SOB/chest pain/heart racing No Nausea/vomiting/dyspepsia No Abdominal pain No Diarrhea/constipation No Urinary pain, burning, incontinence No Hematuria No Vaginal discharge/bleeding No Skin rashes/ulcers No Back/joint pain/swelling No Leg swelling/pain/redness No Bruising/petechiae/bleeding/melena No Sensory/motor No Polydipsia/polyuria/heat/cold intol No Lumps/bumps/swollen glands No Other Negative except as above PHYSICAL EXAMINATION BP 130/80 Pulse 97 Resp 16 Ht 168.5 cm (5' 6.34) Wt 115 kg (253 lb 8.5 oz) BMI 40.50 kg/m2 SpO2 99% ? Unknown GENERAL: Well-appearing, articulate white female. HEENT: Oropharynx clear; no mucosal lesions, petechiae, bleeding, thrush or ulcers. NECK: Supple; no cervical, supraclavicular or submental adenopathy. BREASTS: Exam deferred. CHEST: Clear to auscultation/percussion. No rales, rhonchi, wheezes. HEART: Regular rate and rhythm; no murmur, rub, gallop ABDOMEN: Soft, non-tender, no hepatosplenomegaly. GENITOURINARY: Exam deferred. EXTREMITIES: [...] Appropriate affect, no apparent distress. LABORATORY STUDIES Lab Results Component Value Date WBC 5.6 02/08/2012 RBC 4.51 02/08/2012 HGB 13.3 02/08/2012 HCT 39.3 02/08/2012 MCV 87.1 02/08/2012 MCH 29.5 02/08/2012 MCHC 33.8 02/08/2012 PLATELET 223 02/08/2012 RDWCV 13.1 02/08/2012 Results for CAMILA LEDESMA ( ) as of 03/03/2012 16:41 Ref. Range 02/08/2012 09:53 PT Latest Range: 11.9-14.7 sec 13.0 INR Latest Range: 0.9-1.1 1.0 PTT Latest Range: 25-35 sec 29 Fibrinogen Latest Range: 220-480 mg/dL 399 Thrombin Time Latest Range: 15-20 sec 15 Save Plasma No range found Sample saved in Lab Factor 8 Assay Latest Range: 50-150 % 106 Factor 11 Assay Latest Range: 50-150 % 186 (H) vWF Antigen No range found 93 vWF Anti Interp No range found ABO blood group h... vWF Activity Latest Range: 50-150 % activity 85 Col/Epi Latest Range: 90-160 sec 153 Col/ADP Latest Range: 50-120 sec 97 RADIOGRAPHIC STUDIES None IMPRESSION Camila Ledesma is a 26 y.o. woman with history of postoperative bleeding following sections who is here for evaluation of bleeding disorder. I reviewed her lab results. Her complete blood count is unremarkable. There is no evidence of systemic bleeding diathesis. Her PFA-100, factor 8 and von Willebrand factor levels are within normal limit. Factor XI is elevated. I explained to her that elevated factor XI is not associated with bleeding diathesis, but factor XI deficiency does. Elevated factor XI level is associated with increased risk of venous thromboembolism and ischemic stroke. Conflicting data exist in regard association of high factor XI level and myocardial infarction. Her obesity with BMI above 30 kg/m2 is one of the risk factor of both arterial and venous thrombosis. I encourage her to loose weight. Although her risk of VTE might be higher than general population, estrogen containing oral contraceptive is not contraindicated in her. In general, we do not recommend an OCP formulation that contains high estrogen ( > 0.035 mg) or the one that contain a third generation progestin such as desogestrel or, in the case of the NuvaRing, etonogestrel, as these appear to confer a higher risk for thrombosis than formulations containing an earlier generation of progestin. Moreover, CHAPITO and other drosperinone-containing preparations appear to have a higher risk for thrombosis than many of the other available OCP, and we would not recommend using these. Previously she has been on Ortho Tri Cyclen. It contains low dose of estrogen (0.035 mg) and this should be fine for her to take for menorrhagia. Last we reviewed R.I.C.E ( rest, ice, compression and elevation) , the basic first aid to stop bleeding. Camila had the opportunity to ask questions and indicated that all her questions were answered to her satisfaction. While I won't schedule her back, she knows that she can call our office, should any questions or concerns arise. Ewa Garcia MD Instructor of Medicine, [facility] documented in this encounter Plan of Treatment Not on file documented as of this encounter Visit Diagnoses Diagnosis Bleeding- Primary Hemorrhage, unspecified documented in this encounter
--- OUTSIDE RECORDS SUMMARY | 2024-01-13 19:00 | XMS_ITS | Encounter Summary ---
Author Organization [facility] Address [facility] [place] [address] Care Team Providers Care Derrick Builder Name Role Phone Amada Carson MD Primary Care Provider [phone] Encounter Details Date Type Department Care Team (Late st Contact Info) Description 04/23/2011 Interpretation Only Radiology [address] [place] [address] Unknown None Social History Tobacco Use Types [...] US OB BIOPHYSICAL PROFILE WO NST Routine 04/23/2011 10:57 AM EST documented in this encounter Results * US OB Biophysical Profile WO Nst (04/23/2011 10:57 AM EST) Anatomical Region Laterality Modality Breast Ultrasound 04/23/2011 10:5 7 AM EST Narrative 04/23/2011 10:57 AM EST APD Historical Result Principal Commercial Insulator: ??GERALD ??PARISA [facility] OBSTETRICAL ULTRASOUND REPORT ? -------- Pat. Name: BALTAZAR KIMBERLI Waldrop ? Study Date: ?? 04/23/2011 11:23am Pat. No: ?? [id number] ?Referring MD: DENIS^ALEXANDRE LMP: ? 08/04/2010 ?House Designer: ??C ??HERMAN MELÉNDEZ GA by LMP: 37.4 weeks ?, Age: ? 1985, 25 GA by 1st: 37.5 weeks ?GA Selected: ??37.5 weeks (From [facility]) GA by US: ?SOO: ?05/11/2011 Hist/Ind: ??LOW FLUID ??OLIGO/PIH ??BIO -------- MEASUREMENTS & AGE ? GROWTH EVALUATION Measurement ?? GA ? Range ?Source ?? % for 37.5 Ratios ------- ------- ?? Amniotic Fluid Index: 04.6 (07.4-24.2)* Q1: 0.0 ?? Q2: 1.6 ?? Q3: 0.9 ?? Q4: 2.1 ?? Biophysical Profile: 09/25 Breathin ?? Tone: 2 ?? Movement: ??2 ?? AFV: ??2 -------- CLINICAL SUMMARY TRANSABDOMINAL IMAGING WAS PERFORMED TAO INTRAUTERINE GESTATION IN CEPHALIC PRESENTATION AMNIOTIC FLUID volume is decreased[OLIGOHYDRAMNIOS]., ??LGST POCKET= 2.1cm. PLACENTAL LOCATION is anterior. MORPHOLOGY: Stomach, kidneys ??unremarkable. Bladder not seen due to position, pt body habitus and low fluid. MOTION NOTED. HEART RATE: 141 /bpm. RESPIRATION observed. BIOPHYSICAL PROFILE: 09/25. MATERNAL OVARIES NOT SEEN ON TODAYS EXAM THE PERTINENT FINDINGS AND CONCERNS WERE DISCUSSED WITH NURSE GURJIT WEAVER ON BEHALF OF DR. BARRIOS ON 04/23/11 AT 11:40 WHILE THE PATIENT REMAINED IN THE DEPARTMENT. Sergio MELÉNDEZ RDMS ? Gerald Hahn MD ? <Electronic Signature> 04/23/2011 Procedure Note Unknown - 08/19/2018 APD Historical Result Principal Commercial Insulator: GERALD HAHNTORI [facility] OBSTETRICAL ULTRASOUND REPORT Pat. Name: KIMBERLI LEDESMA Study Date: 04/23/201111:23am Pat. No: [id number] Referring MD: NATHAN LMP: 08/04/2010 House Designer: Sergio MELÉNDEZ RDMS GA by LMP: 37.4 weeks , Age: 11 1985, 25 GA by 1st: 37.5 weeks GA Selected: 37.5 weeks ([facility]) GA by US: SOO: 05/11/2011 Hist/Ind: LOW FLUID OLIGO/PIH BIO MEASUREMENTS & AGE GROWTH EVALUATION Measurement GA Range Source % for 37.5 Ratios ------- ------- Amniotic Fluid Index: 04.6 (07.4-24.2)* Q1: 0.0 Q2: 1.6 Q3: 0.9 Q4: 2.1 Biophysical Profile: 09/25 Breathin Tone: 2 Movement: 2 AFV: 2 CLINICAL SUMMARY TRANSABDOMINAL IMAGING WAS PERFORMED TAO INTRAUTERINE GESTATION IN CEPHALIC PRESENTATION AMNIOTIC FLUID volume is decreased[OLIGOHYDRAMNIOS]., LGST POCKET=2.1cm. PLACENTAL LOCATION is anterior. MORPHOLOGY: Stomach, kidneys unremarkable. Bladder not seen due to position,pt body habitus and low fluid. MOTION NOTED. HEART RATE: 141 /bpm. RESPIRATION observed. BIOPHYSICAL PROFILE: 09/25. MATERNAL OVARIES NOT SEEN ON TODAYS EXAM THE PERTINENT FINDINGS AND CONCERNS WERE DISCUSSED WITH NURSE GURJIT WEAVER ON BEHALF OF DR. BARRIOS ON 04/23/11 AT 11:40 WHILE THE PATIENTREMAINED IN THE DEPARTMENT. HERMAN ALVARADO MD <Electronic Signature> 04/23/2011 Unknown IMG US OB ORDERABLES documented in this encounter Visit Diagnoses Not on filedocumented in this encounter Care Teams Derrick Builder Relationship Specialty Start Date End Date Amada Carson MD [address] [place] [address] PCP - General 06/09/18 08/27/18 documented as of this encounter
--- OUTSIDE RECORDS SUMMARY | 2024-01-13 19:00 | XMS_ITS | Encounter Summary ---
Author Organization [facility] [address] Care Team Providers Care Shuttle Fixer Name Role Phone Amada Carson MD Primary Care Provider [phone] Encounter Details Date Type Department Care Team (Late st Contact Info) Description 10/09/2010 Orders Only Radiology and Cardiology Results [address] [place] [id number] Apd Conversion, Results Provider, Social History Tobacco [...] Procedure Name Priority Date/Time Associated Diagnosis Comments RPR Routine 10/09/2010 10:49 AM EDT documented in this encounter Results * (ABNORMAL) RPR (10/09/2010 10:49 AM EDT) RPR (ARU) NON REACTIVE(E xternal Lab) NONREACTIVE GUALBERTO VILLAFUERTE CONVERSION 10/09/2010 10:4 9 AM EDT Results Provider Apd Conversion IMMUN OLOGY ORDERABLES GUALBERTO VILLAFUERTE DAY CONVERSION documented in this encounter Visit Diagnoses Not on filedocumented in this encounter Care Teams Shuttle Fixer Relationship Specialty Start Date End Date Amada Carson MD [address] [place] [address] PCP - General Family Medicine 08/28/18 01/21/20 documented as of this encounter
--- OUTSIDE RECORDS SUMMARY | 2024-01-13 19:00 | XMS_ITS | Encounter Summary ---
Author Organization [facility] [place] [address] Care Team Providers Care Shoe Lacer Name Role Phone Amada Carson MD Primary Care Provider [phone] Encounter Details Date Type Department Care Team (Late st Contact Info) Description 10/09/2010 Orders Only Radiology and Cardiology Results [address] [place] [id number] Apd Conversion, Results Provider, Social History Tobacco [...] Date/Time Associated Diagnosis Comments HEMOGLOBIN A1C Routine 10/09/2010 10:49 AM EDT documented in this encounter Results * (ABNORMAL) Hemoglobin A1c (10/09/2010 10:49 AM EDT) Hemoglobin A1c 4.9(Energy Specialist al Lab) 4.5 - 5.7 % GUALBERTO VILLAFUERTE DAY CONVERSION Hemoglobin 14.0(Exter nal Lab) g/dL GUALBERTO VILLAFUERTE DAY CONVERSION 10/09/2010 10:4 9 AM EDT Results Provider Apd Conversion MD GAVINO GALARZA ORDERABLES GUALBERTO CONVERSION documented in this encounter Visit Diagnoses Not on filedocumented in this encounter Care Teams Shoe Lacer Relationship Specialty Start Date End Date Amada Carson MD [address] [place] [address] PCP - General Family Medicine 08/28/18 01/21/20 documented as of this encounter
--- OUTSIDE RECORDS SUMMARY | 2024-01-13 19:00 | XMS_ITS | Encounter Summary ---
Author Organization [facility] Address [facility] [place] [address] Care Team Providers Care Cokeman Name Role Phone LatanyaGabrielle JOSUE Primary Care Provider [phone] Reason for Visit * Reason Comments Shortness of Breath noticed at 1300 toda y, chest pressure Abdominal Pain since 0400 this am s evere pain, pain for one week Encounter Details Date Type Department Care Team (Latest Contact Info) Description 12/31/2010 2:46 PM EST - 12/31/2010 5:12 PM [facility] Hospital Encounter [facility] [place] [address] Matt Lee MD [facility] [place] [address] Discharge Disposition: Home Social History Tobacco Use [...] Sig Dispensed Refills Start Date End Date nitrofurantoin, macrocrystal-monohydrat e, (MACROBID) 100 mg capsuleIndications:prev ention of bacterial urinary tract infection Take 100 mg by mouth daily. Indications: Prevention of Bacterial Urinary Tract Infection 05/19/2012 OXYcodone-acetaminophen (PERCOCET) 5-325 mg per tablet Take 1 tablet by mouth every 4 hours as needed. 05/19/2012 documented as of this encounter Progress Notes * Grecia Decker RN - 12/31/2010 5:[address] Ramirez notified of lab results, discharge order obtained, pt able to eat reg diet and fluids and mike well, pt continues to c/o of abd pain, pt to follow up at [facility] and pain clinic, discharge teaching done and pt verbalized understanding * Matt Lee MD - 12/31/2010 4:46 PM EST BP Triage Note S: Camila Ledesma is a 25 y.o. at approximately 22 weeks GA by LMP who presented to the EDthis afternoon with abdominal pain. She receives her care with Dr. Schmidt at [facility]. She reports an approximately 1 week history of low grade abdominal pain for which she hasseen Dr. Schmidt and been told that it is due to the fetus kicking her prior c/s scar an stretching of her uterus. She has had 2 clean catch urine cultures done that have been negative. While she was waiting for the second one she took macrobid for 2 days. She woke up early this morning with acute worsening of her abdominal pain. She called Dr. Schmidt and was told to take a Percocet that she had left over from her c/s 9 months ago and had some Vicodin called in for her. She took both of these without any improvement in her pain. She therefore came to our ED for evaluation. On route to the ED shevomited x1. She has not noted any fevers or chills at home. She has generalized pain in her abdomen, particularly the lower left abdomen and her back. She denies any vaginal bleeding. She has some wetness on her pants since she vomited. She does not know if she urinated or broke her water. She reports that her appetite has been fair and this morning she ate some saltines and drank some juice. Sheis having regular bowel movements and her last one was yesterday. O: Gen: Obese female, intermittently teary but non-toxic appearing Back: Generalized tenderness, unable to appreciate CVAT apart from generalized pain Abd: Obese, soft, no masses, uterus palpable at umbilius, most tender in the LLQ but without guarding or rebound SSE: negative pooling VE: closed, long, firm FHR: 160s by ultrasound Labs: 12/31/2010 15:45 WBC 6.6 Hemoglobin 12.3 Hematocrit 35.4 Platelets 177 Immature Gran % 0.20 12/31/2010 15:45 Total Bilirubin 0.9 Bili, Direct 0.2 Alk Phos 65 AST 14 ALT 17 12/31/2010 15:45 Sodium 135 Potassium 3.5 Chloride 103 CO2 21 (L) BUN 4 (L) Creatinine 0.48 (L) Glucose Lvl 82 12/31/2010 15:39 Color UA Yellow Appearance UA Clear Spec [place] UA 1.013 pH UA 8.0 Protein UA Trace (A) Glucose UA Negative Ketones UA Negative Bilirubin UA Negative Urobilinogen UA 2.0 (A) Blood UA Negative Leukocytes UA Negative Nitrite UA Negative Assessment/Plan: Camila Ledesma is a 25 y.o. at approximately 22 weeks who presents with generalized abdominal pain. She has a normal WBC and UA. Her CMP is entirely normal. She has diffuse tenderness on exam without specific uterine or CVA tenderness so is quite unlikely to have an intra-amniotic infection or UTI or pyelonephritis. She may have a GI bug. Will discharge home to follow up with her primary OB tomorrow. Advised that she can take pain medication if she finds it helpful but given that she has not found it helpful thus far and that she actually appears rather comfortable, I would not recommend taking it continuously. Advised to stay well hydrated as well. To call with fevers or bleeding. I reviewed the above patient with Dr. Hein in details. I agree with her assessment and plan. MATT LEE MD * Grecia Decker RN - 12/31/2010 4:01 PM EST Pt to BP 4 from ER via w/c, pt gets care at [facility] and was heading there when become SOB and difficulty breathing with severe bad and back pain, pt stated that she vomited in ER and her pants became wet, pt rated pain 10/10 with no relief from percocet RX by MD at [facility]. O2 sat 99 % on room air, temp 38 oral, unable to get FHR with dopplar, Dr. Ramirez notifed and in to assess, port U/S done at BS with FHR 168, speculum exam done with no pooling, sve done closed, straight cath done and u/a and c&s sent, labs drawn as ordered, family at BS , will continue to assess documented in this encounter Plan of Treatment Not on file documented as of this encounter Procedures Procedure Name Priority Date/Time Associated Diagnosis Comments DIFFERENTIAL, AUTOMATED Routine 12/31/2010 3:45 PM EST CBC (WITH DIFF) Routine 12/31/2010 3:45 PM EST COMPREHENSIVE METABOLIC PANEL Routine 12/31/2010 3:45 PM EST URINALYSIS DIPSTICK Routine 12/31/2010 3 :39 PM EST URINE CULTURE Routine 12/31/2010 3:39 PM EST documented in this encounter Results * (ABNORMAL) DIFFERENTIAL, AUTOMATED (12/31/2010 3:45 PM EST) Neutrophil % 88.6(H) 34.0 - 71.0 % CERNER MILLENNIUM Neutrophil Absolute 5.84 1.50 - 6.30 x10(3)/mc L CERNER MILLENNIUM Lymph % 6.1(L) 19.0 - 53.0 % CERNER MILLENNIUM Lymphocytes Abs 0.4(L) 1.0 - 3.6 x10(3)/mc L CERNER MILLENNIUM Monocyte % 4.9 4.0 - 13.0 % CERNER MILLENNIUM Monocyte Abs 0.3 0.2 - 1.0 x10(3)/mc L CERNER MILLENNIUM Eos % 0.2 0.0 - 7.0 % CERNER MILLENNIUM Eosinophils Abs 0.0 0.0 - 0.5 x10(3)/mc L CERNER MILLENNIUM Basophil % 0.0 0.0 - 2.0 % CERNER MILLENNIUM Baso Absolute 0.0 0.0 - 0.2 x10(3)/mc L CERNER MILLENNIUM Immature Gran % 0.20 0.00 - 0.66 % CERNER MILLENNIUM Comment: Immature granulocytes(IG's)percentage and absolute count will include metamyelocytes, myelocytes, and promyelocytes. Blood smears from CBCs yielding IG's will be scanned manually for concordance. If this scan disagrees with the automated IG or if promyelocytes are noted, a manual differential will be performed. Immature Gran Absolute 0.01 0.00 - 0.05 x10(3)/mc L CERNER MILLENNIUM Blood specimen (specimen) 12/31/2010 3:45 PM EST 12/31/2010 3:56 PM EST Matt Lee MD HEMATOLOGY ORDERABLE S CERNER MILLENNIUM * (ABNORMAL) Comprehensive metabolic panel (non-fasting) (12/31/2010 3:45 PM EST) Pathologist [facility] Glucose 82 60 - 199 mg/dL CERNER MILLENNIUM Comment:Diabetes: >=200 mg/d L plus symptoms Blood Urea Nitrogen 4(L) 8 - 18 mg/dL CERNER MILLENNIUM Creatinine 0.48(L) 0.70 - 1.20 mg/dL CERNER MILLENNIUM Sodium 135 135 - 145 mmol/L CERNER MILLENNIUM Potassium 3.5 3.5 - 5.0 mmol/L CERNER MILLENNIUM Comment: Please note: ??Patients with WBC >100,000 may have falsely elevated Potassium levels. ??For accurate Potassium quantification in these patients send serum separator tube (gold top) for subsequent determinations. ??Contact the Clinical Chemistry Laboratory if there are any questions. Chloride 103 98 - 107 mmol/L CERNER MILLENNIUM Carbon Dioxide 21(L) 22 - 31 mmol/L CERNER MILLENNIUM Anion Gap 11 5 - 15 mmol/L CERNER MILLENNIUM Calcium 9.0 8.5 - 10.5 mg/dL CERNER MILLENNIUM Protein, Total 6.8 6.4 - 8.3 gm/dL CERNER MILLENNIUM Albumin 3.5 3.2 - 5.2 gm/dL CERNER MILLENNIUM Aspartate Aminotransferase 14 0 - 30 unit/L CERNER MILLENNIUM Alanine Aminotransferase 17 0 - 30 unit/L CERNER MILLENNIUM Alkaline Phosphatase 65 40 - 104 unit/L CERNER MILLENNIUM Bilirubin, Total 0.9 0.2 - 1.3 mg/dL CERNER MILLENNIUM Bilirubin, Direct 0.2 0.0 - 0.3 mg/dL CERNER MILLENNIUM Est Glomerular Filtration Rate >60 >=60 CERNER MILLENNIUM Comment: The National Kidney Disease Education Program (NKDEP) has recommended all laboratories report estimated GFR (eGFR) along with plasma creatinine measurements to assist you with recognition of early kidney disease. Caveats: ??Plasma creatinine should be at steady-state (unchanged within the past week). For patients multiply eGFR by 1.2.MDRD equation has not been validated for pediatric patients and is only valid for patients with age >= 18 years. At present, NKDEP does NOT recommend using [...] disease. References: http://nkdep.nih.gov/resources/NKDEP_Suggestn4Labs_0606_508.pdf http://www.kidney.org/professionals/kls/pdf/faq_gfr.pdf Blood specimen (specimen) 12/31/2010 3:45 PM EST 12/31/2010 3:56 PM EST Matt Lee MD CHEMISTRY ORDERABLES [facility] * CBC (with Diff) (12/31/2010 3:45 PM EST) White Blood Cell 6.6 4.0 - 10.0 x10(3)/mcL CERNER MILLENNIUM Red Blood Cell 4.17 3.93 - 5.22 x10(6)/mcL CERNER MILLENNIUM Hemoglobin 12.3 11.2 - 15.7 gm/dL CERNER MILLENNIUM Hematocrit 35.4 34.0 - 45.0 % CERNER MILLENNIUM Mean Cell Volume 84.9 79.0 - 94.0 fL CERNER MILLENNIUM Mean Cell Hemoglobin 29.5 26.6 - 32.2 pg CERNER MILLENNIUM Mean Cell Hemoglobin Concentration 34.7 32.0 - 36.5 gm/dL CERNER MILLENNIUM Platelet 177 145 - 370 x10(3)/mcL CERNER MILLENNIUM RDW Standard Deviation 40.1 35.0 - 46.0 fL CERNER MILLENNIUM RDW coefficient of variation 13.1 10.9 - 14.4 % CERNER MILLENNIUM Mean Platelet Volume 9.6 9.0 - 12.0 fL CERNER MILLENNIUM Blood specimen (specimen) 12/31/2010 3:45 PM EST 12/31/2010 3:56 PM EST Matt Lee MD HEMATOLOGY ORDERABLE S [facility] * Urine culture Straight Catheter Urine (12/31/2010 3:39 PM EST) Urine Culture ? Patient Name: CAMILA LEDESMA ?Ordered By: MATT LEE ? MR#: [id number] ?LOC: ??[facility] ? /Sex: ??1985 (25 years), ? Female ? PROCEDURE: Urine Culture ?SOURCE: U [facility] ? COLLECTED: 12/31/2010 15:39 ? STARTED: 12/31/2010 16:02 ? FINAL REPORT ? Final Report ? Verified:2010 11:54 ? 10,000-49,000 cfu/ml mixed mucosal isaias ? PRELIMINARY REPORT ? Preliminary Report ? Verified:2010 11:41 ? Growth too young to evaluate, culture reincubated ? CERNER MILLENNIUM Urine specimen obtained via straight catheter (specimen) 12/31/2010 3:39 PM EST 12/31/2010 4:02 PM EST Matt Lee MD MICROBIOLOGY - GENER AL ORDERABLES CERNER MILLENNIUM * (ABNORMAL) Urinalysis without microscopic (12/31/2010 3:39 PM EST) Glucose, Urine Dipstick Negative Negative mg/dL CERNER MILLENNIUM Protein, Urine Dipstick Trace(A) Neg mg/dL CERNER MILLENNIUM Bilirubin, Urine Dipstick Negative Negative mg/dL CERNER MILLENNIUM Urobilinogen, Urine Dipstick 2.0(A) Normal mg/dL CERNER MILLENNIUM pH, Urn (dipstick) 8.0 5.0 - 8.0 CERNER MILLENNIUM Blood, Urine Dipstick Negative mg/dL CERNER MILLENNIUM Ketone, Urine Dipstick Negative mg/dL CERNER MILLENNIUM Nitrite, Urine Dipstick Negative CERNER MILLENNIUM Leukocytes, Urine Dipstick Negative mcL CERNER MILLENNIUM Appearance, Urine Dipstick Clear Clear CERNER MILLENNIUM Specific [place] Urine Automated 1.013 1.002 - 1.030 CERNER MILLENNIUM Color, Urine Dipstick Yellow Yellow CERNER MILLRITA Urine specimen (specimen) 12/31/2010 3:39 PM EST 12/31/2010 3:56 PM EST Matt Lee MD URINE ORDERABLES [facility] documented in this encounter Visit Diagnoses Not on filedocumented in this encounter Care Teams Cokeman Relationship Specialty Start Date End Date Gabrielle Pelaez APRN [address] [place] [id number] PCP - General 06/01/10 02/04/12 documented as of this encounter
--- OUTSIDE RECORDS SUMMARY | 2024-01-13 19:00 | XMS_ITS | Encounter Summary ---
Author Organization [facility] Address [facility] [place] [address] Care Team Providers Care Guard Driver Name Role Phone Amada Carson MD Primary Care Provider +[phone] Encounter Details Date Type Department Care Team (Late st Contact Info) Description 04/20/2011 Orders Only Radiology and Cardiology Results [address] [place] [id number] Apd Conversion, Results Provider, Social History Tobacco [...] Procedure Name Priority Date/Time Associated Diagnosis Comments TYPE AND SCREEN ([facility] Routine 04/20/2011 2:17 PM EST documented in this encounter Results * (ABNORMAL) Type and screen ([facility]) (04/20/2011 2:17 PM EST) ABO Grouping O(Externa l Lab) ABO GUALBERTO VILLAFUERTE DAY CONVERSION Rh POSITIVE( External Lab) GUALBERTO VILLAFUERTE DAY CONVERSION AB Screen Interp NEGATIVE( External Lab) NEGATIVE GUALBERTO VILLAFUERTE DAY CONVERSION Armband Identification PLS [id number](Exte rnal Lab) GUALBERTO VILLAFUERTE DAY CONVERSION 04/20/2011 2:17 PM EST Results Provider Apd Conversion MD BLOOD BANK LAB ORDERABLES CONVERSION documented in this encounter Visit Diagnoses Not on filedocumented in this encounter Care Teams Guard Driver Relationship Specialty Start Date End Date Amada Carson MD [address] [place] [address] PCP - General Family Medicine 08/28/18 01/21/20 documented as of this encounter
--- OUTSIDE RECORDS SUMMARY | 2024-01-13 19:00 | XMS_ITS | Encounter Summary ---
Author Organization [facility] Address [facility] [place] [address] Care Team Providers Care Rework Operator Name Role Phone Amada Carson MD Primary Care Provider [phone] [phone] Encounter Details Date Type Department Care Team (Late st Contact Info) Description 04/09/2011 Interpretation Only Radiology [address] [facility] [place] [address] Unknown None Social History Tobacco Use Types [...] US OB BIOPHYSICAL PROFILE WO NST Routine 04/09/2011 7:28 AM EST documented in this encounter Results * US OB Biophysical Profile WO Nst (04/09/2011 7:28 AM EST) Anatomical Region Laterality Modality Breast Ultrasound 04/09/2011 7:28 AM EST Narrative 04/09/2011 7:28 AM EST [facility] Historical Result Principal Government Operations Consultant: ??NAMRATA ??MONIKA Villafuerte [facility] OBSTETRICAL ULTRASOUND REPORT ? -------- Pat. Name: CAMILA LEDESMA Palma ? Study Date: ?? 04/09/2011 7:56am Pat. No: ?? [id number] ?Referring MD: NATHAN LMP: ? 08/04/2010 ?Wind Plant Manager: ??C ??HERMAN MELÉNDEZ GA by LMP: 35.4 weeks ?, Age: ? 1985, 25 GA by 1st: 35.5 weeks ?GA Selected: ??35.5 weeks (From First U) GA by US: ??34.5 weeks ?SOO: ?05/11/2011 Hist/Ind: ??PAIN ?? -------- MEASUREMENTS & AGE ? GROWTH EVALUATION Measurement ?? GA ? Range ?Source ?? % for 35.5 Ratios ------- ------- ?? BPD ??8.9 cm 36.0 wk (32.9-39.1) [place] ??BPD ??57% ?? FL/BPD 0.77 (0.71 - 0.87) HC ??31.8 cm 35.7 wk (32.7-38.7) [place] ??HC ?? 54% ?? FL/AC ??0.25 (0.20 - 0.24)* AC ??27.3 cm 31.4 wk (28.4-34.4) [place] ??AC ?? <05 ?? HC/AC ??1.16 (0.93 - 1.12)* FL ?? 6.8 cm 35.0 wk (32.0-38.0) [place] ??FL ?? 42% ?? CI ? 0.79 (0.70 - 0.86) GA for sonogram 34.5 wk (31.5-37.5) ? Weight Estimate: based on (BPD,HC,AC,FL) Avg ?Weight: 2167 gm (5448-8607) [place] : 4lbs, 12oz Normal: 2540 gm (8254-8781) Adebayo Wt% ? 21% for 35.5 wks Amniotic Fluid Index: 08.5 (07.8-24.9) Q1: 0.0 ?? Q2: 2.1 ?? Q3: 3.9 ?? Q4: 2.5 ?? Biophysical Profile: 09/25 Breathin ?? Tone: 2 ?? Movement: ??2 ?? AFV: ??2 -------- CLINICAL SUMMARY TRANSABDOMINAL IMAGING WAS PERFORMED TAO INTRAUTERINE GESTATION IN CEPHALIC PRESENTATION AMNIOTIC FLUID volume is normal, , ??LGST POCKET= 3.9cm. PLACENTAL LOCATION is anterior, LT LAT GROWTH: corresponds with prior study EXCEPT ABDOMINAL CIRCUMFERENCE WHICH HAS NOT CHANGED SINCE PRIOR EXAM (04/04/11) MORPHOLOGY: Stomach, kidneys and bladder unremarkable. MOTION NOTED. HEART RATE: 128/126 /bpm. RESPIRATION observed. BIOPHYSICAL PROFILE: 09/25. MATERNAL OVARIES NOT SEEN ON TODAYS EXAM STUDY LIMITED BY MATERNAL BODY HABITUS PER PROTOCOL THE PT WAS SENT TO THE [facility]ING C[facility] WITH A COPY OF THIS PRELIMINARY ??REPORT. Sergio MELÉNDEZ RDMS ? Namrata Cha DO ? <Electronic Signature> 04/09/2011 Procedure Note Unknown - 08/19/2018 [facility]D Historical Result Principal Government Operations Consultant: NAMRATA Cruz Villafuerte [facility] OBSTETRICAL ULTRASOUND REPORT Pat. Name: CAMILA LEDESMA Study Date: 04/09/2011 7:56am Pat. No: [id number] Referring MD: NATHAN LMP: 08/04/2010 Wind Plant Manager: Sergio MELÉNDEZ RDMS GA by LMP: 35.4 weeks , Age: 11 1985, 25 GA by 1st: 35.5 weeks [facility] GA by US: 34.5 weeks SOO: 05/11/2011 Hist/Ind: PAIN MEASUREMENTS & AGE GROWTH EVALUATION Measurement GA Range Source % for 35.5 Ratios ------- ------- BPD 8.9 cm 36.0 wk (32.9-39.1) [place] BPD 57% FL/BPD 0.77 (0.71 -0.87) HC 31.8 cm 35.7 wk (32.7-38.7) [place] HC 54% FL/AC 0.25 (0.20 -0.24)* AC 27.3 cm 31.4 wk (28.4-34.4) Hadlock AC <05 HC/AC 1.16 (0.93 -1.12)* FL 6.8 cm 35.0 wk (32.0-38.0) [place]lock FL 42% CI 0.79 (0.70 -0.86) GA for sonogram 34.5 wk (31.5-37.5) Weight Estimate: based on (BPD,HC,AC,FL) Avg Weight: 2167 gm (5815-4507)Hadlock : 4lbs, 12oz Normal: 2540 gm (7556-6701) Adebayo Wt% 21% for 35.5 wks Amniotic Fluid Index: 08.5 (07.8-24.9) Q1: 0.0 Q2: 2.1 Q3: 3.9 Q4: 2.5 Biophysical Profile: 09/25 Breathin Tone: 2 Movement: 2 AFV: 2 CLINICAL SUMMARY TRANSABDOMINAL IMAGING WAS PERFORMED TAO INTRAUTERINE GESTATION IN CEPHALIC PRESENTATION AMNIOTIC FLUID volume is normal, , LGST POCKET= 3.9cm. PLACENTAL LOCATION is anterior, LT LAT GROWTH: corresponds with prior study EXCEPT ABDOMINALCIRCUMFERENCE WHICH HAS NOT CHANGED SINCE PRIOR EXAM (04/04/11) MORPHOLOGY: Stomach, kidneys and bladder unremarkable. MOTION NOTED. HEART RATE: 128/126 /bpm. RESPIRATION observed. BIOPHYSICAL PROFILE: 09/25. MATERNAL OVARIES NOT SEEN ON TODAYS EXAM STUDY LIMITED BY MATERNAL BODY HABITUS PER PROTOCOL THE PT WAS SENT TO THE [facility]ING C[facility] WITH A COPY OFTHIS PRELIMINARY REPORT. HERMAN ALVARADO,DO <Electronic Signature> 04/09/2011 Unknown IMG US OB ORDERABLES documented in this encounter Visit Diagnoses Not on filedocumented in this encounter Care Teams Rework Operator Relationship Specialty Start Date End Date Amada Carson MD [address] [place] [address] PCP - General 06/09/18 08/27/18 documented as of this encounter
--- OUTSIDE RECORDS SUMMARY | 2024-01-13 19:00 | XMS_ITS | Encounter Summary ---
Author Organization [facility] [place] [address] Care Team Providers Care Coring Machine Operator Name Role Phone Amada Carson MD Primary Care Provider [phone] Encounter Details Date Type Department Care Team (Late st Contact Info) Description 04/20/2011 Orders Only Radiology and Cardiology Results [address] [place] [id number] Apd Conversion, Results Provider, Social History Tobacco [...] Date/Time Associated Diagnosis Comments URIC ACID Routine 04/20/2011 12:50 PM EST documented in this encounter Results * (ABNORMAL) Uric acid (04/20/2011 12:50 PM EST) Uric Acid 5.4(Electrical Systems Engineer al Lab) 2.6 - 7.2 mg/dL GUALBERTO JAVED CONVERSION 04/20/2011 12:5 0 PM EST Results Provider Apd Conversion MD GAVINO GALARZA ORDERABLES GUALBERTO JAVED CONVERSION documented in this encounter Visit Diagnoses Not on filedocumented in this encounter Care Teams Coring Machine Operator Relationship Specialty Start Date End Date Amada Carson MD [address] [place] [address] PCP - General Family Medicine 08/28/18 01/21/20 documented as of this encounter
--- OUTSIDE RECORDS SUMMARY | 2024-01-13 19:00 | XMS_ITS | Encounter Summary ---
Author Organization [facility] [place] [address] Care Team Providers Care Automotive Brake Technician Name Role Phone None Primary Care Provider Unavailabl e Encounter Details Date Type Department Care Team (Late st Contact Info) Description 03/23/2010 11:00 AM EST Office Visit Obstetrics [place] [address] [address] [place] [address] Discharge Disposition: Home Social History Tobacco Use [...] on filedocumented in this encounter Care Teams Automotive Brake Technician Relationship Specialty Start Date End Date None None PCP - General 01/10/10 05/31/10 documented as of this encounter
--- OUTSIDE RECORDS SUMMARY | 2024-01-13 19:01 | XMS_ITS | Continuity of Care Document ---
Author [place] [facility] [facility] Address [address] [place] [address] Care Team Providers Care Bill Distributor Name Role Phone Medardo Sargent DO Primary Care Physician Encounter [facility] FIN NBR [id number] Date(s): 08/09/22 - 08/09/[address] [address]- Encounter Diagnosis Migraine headache(Discharge Diagnosis) - 08/09/22 Atypical seizure(Discharge Diagnosis) - 08/09/22 Discharge Disposition: Home or Self Care Attending Physician: Medardo Olson MD Admitting Physician: Medardo Olson MD Allergies, Adverse Reactions, Alerts Substance Reaction Severity Status acetaminophen-oxycodone palpitations Severe Acti ve Emgality 1 Headache Moderate Active 1300 MG dose, worsening headaches. Functional Status 08/09/22 Other exposure to Infectious Disease Non e Medications busPIRone 5 mg oral tablet 5 mg = 1 tab, Oral, TID Start Date: 08/09/22 Status: Ordered citalopram 40 mg oral tablet See Instructions, Take 1 tablet by mouth once daily, # 90 tab, 3 Refill(s), Pharmacy: [id number] Start Date: 07/09/22 Status: Ordered fluticasone 50 mcg/inh nasal spray 2 sprays, Nasal, Daily, # 16 g, 5 Refill(s), Pharmacy: [id number] Start Date: 03/19/22 Status: Ordered Keppra 500 mg oral tablet 500 mg = 1 tab, Oral, every morning, 0 Refill(s) Start Date: 08/09/22 Status: Ordered levETIRAcetam 1000 mg oral tablet 1,000 mg = 1 tab, Oral, every night at bedtime, 0 Refill(s) Start Date: 02/15/22 Status: Ordered lisinopril 40 mg oral tablet 1 tab, Oral, Daily, # 90 tab, 3 Refill(s), Pharmacy: [id number] Start Date: 07/19/22 Status: Ordered LORazepam 1 mg oral tablet 1 mg = 1 tab, Oral, every 6 hr, PRN as needed for anxiety, # 15 tab, 1 Refill(s), [id number] Start Date: 06/18/22 Stop Date: 06/26/22 Status: Ordered pantoprazole 40 mg oral delayed release tablet 40 mg = 1 tab, Oral, Daily, # 90 tab, 3 Refill(s), Pharmacy: [id number] Start Date: 05/24/22 Stop Date: 05/19/23 Status: Ordered pyridoxine 100 mg oral tablet 100 mg = 1 tab, Oral, Daily, # 90 tab, 0 Refill(s) Start Date: 02/15/22 Stop Date: 05/16/22 Status: Ordered SUMAtriptan 100 mg oral tablet 9 EA, TAKE 1 TABLET BY MOUTH EVERY 24 HOURS NEEDED FOR HEADACHE - MAY REPEAT AFTER 2 HOURS - USEA DIRECTED - FOR 30 DAYS, 0 Refill(s) Start Date: 02/15/22 Status: Ordered topiramate 100 mg oral tablet See Instructions, Take 1 tablet by mouth twice daily, # 180 tab, 3 Refill(s), Pharmacy: [id number] Start Date: 05/07/22 Status: Ordered Mental Status 08/09/22 Eye Opening Response Nathan Spontaneous ly Best Verbal Response Nathan Oriented Best Motor Response Nathan Obeys comman ds Nathan Coma Score 15 Problem List Condition Confirmation Course Effective Dates Status H ealth Status Informant Acute pansinusitis Confirmed Active Allergic rhinitis Confirmed Active Allergic rhinitis Confirmed Active Allergic rhinitis due to pollen Confirmed Active Anxiety Confirmed Active Body mass index 40+ - severely obese Confirmed Active Chronic frontal sinusitis Confirmed Active Chronic maxillary sinusitis Confirmed Active Chronic rhinitis Confirmed Active 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 Essential hypertension Confirmed Active Hemicrania continua Confirmed Active History of clinical finding in subject Confirmed Active Refractory migraine without aura Confirmed Active Seizure Confirmed Active Severe obesity Confirmed Active Procedures Procedure Date Related Diagnosis Body Site Status Ablation 1 Completed section Complete d Dilation and curettage Co mpleted Surgery 2 Completed Surgery 3 Completed Tubal ligation Completed 1cervical ablation -brain surgery 3eye surgery x 3 (2 on right, 1 on left) for wandering eye Results Laboratory List Name Date CBC w/ Diff 08/09/22 Comprehensive Metabolic Panel (CMP) 08/09 Automated Diff 08/09/22 Most recent to oldest [Reference Range]: 1 WBC [4.8-10.8 K/mcL] 6.6 K/mcL (08/09/22 11:44 AM) RBC [4.20-5.40 Million/mcL] 4.61 Million /mcL (08/09/22 11:44 AM) Neutro Auto [42.2-75.2 %] 45.4 % (08/09/22 11:44 AM) Lymph Auto [20.5-51.1 %] 43.6 % (08/09/22 11:44 AM) [place] Auto [1.7-9.3 %] 8.5 % (08/09/22 11:44 AM) Basophil Auto [0.0-0.8 %] 0.3 % (08/09/22 11:44 AM) BUN [8-26 mg/dL] 9 mg/dL (08/09/22 11:44 AM) Glucose Level [74-106 mg/dL] 98 mg/dL (08/09/22 11:44 AM) Potassium Level [3.5-5.1 mmol/L] 3.9 mmo l/L (08/09/22 11:44 AM) Baso Absolute [0.0-0.2 K/mcL] 0.0 K/mcL (08/09/22 11:44 AM) MCV [81.0-99.0 fL] 90.2 fL (08/09/22 11:44 AM) AST [15-41 IntlUnit/L] 22 IntlUnit/L (08/09/22 11:44 AM) ALT [14-54 IntlUnit/L] 28 IntlUnit/L (08/09/22 11:44 AM) MCHC [32.0-36.0 g/dL] 32.9 g/dL (08/09/22 11:44 AM) Osmolality [275-295 mOsm/kg] 274 mOsm/kg *LOW* (08/09/22 11:44 AM) Sodium Level [134-143 mmol/L] 138 mmol/L (08/09/22 11:44 AM) Lymph Absolute [1.2-3.4 K/mcL] 2.9 K/mcL (08/09/22 11:44 AM) Hct [37.0-47.0 %] 41.6 % (08/09/22 11:44 AM) Calcium Level [8.9-10.3 mg/dL] 9.2 mg/dL (08/09/22 11:44 AM) [place] Absolute [0.1-0.6 K/mcL] 0.6 K/mcL (08/09/22 11:44 AM) Albumin Level [3.5-5.0 g/dL] 4.3 g/dL (08/09/22 11:44 AM) Protein Total [6.5-8.1 g/dL] 7.6 g/dL (08/09/22 11:44 AM) MCH [27.0-31.0 pg] 29.7 pg (08/09/22:44 AM) Neutro Absolute [1.4-6.5 K/mcL] 3.0 K/mc L (08/09/22 11:44 AM) Bilirubin Total [0.2-1.2 mg/dL] 0.9 mg/d L (08/09/22 11:44 AM) Hgb [12.0-16.0 g/dL] 13.7 g/dL (08/09/22 11:44 AM) Alk Phos [38-130 IntlUnit/L] 54 IntlUnit /L (08/09/22 11:44 AM) MPV [7.4-10.4 fL] 10.0 fL (08/09/22 11:44 AM) Platelets [130-400 K/mcL] 259 K/mcL (08/09/22 11:44 AM) CO2 [22-32 mmol/L] 21 mmol/L *LOW* (08/09/22 11:44 AM) Eos Absolute [0.0-0.2 K/mcL] 0.1 K/mcL (08/09/22 11:44 AM) Chloride Level [98-111 mmol/L] 108 mmol/ L (08/09/22 11:44 AM) RDW-CV [11.5-14.5 %] 12.7 % (08/09/22 11:44 AM) A/G Ratio 1.3 *NA* (08/09/22 11:44 AM) BUN/Creat Ratio [8.0-20.0] 11.2 (08/09/22 11:44 AM) Globulin 3.3 *NA* (08/09/22 11:44 AM) Imm Gran Absolute 0.01 *NA* (08/09/22 11:44 AM) Imm Gran Auto [0.0-0.5 %] 0.2 % (08/09/22 11:44 AM) Creatinine Level [0.44-1.00 mg/dL] 0.80 mg/dL (08/09/22 11:44 AM) Anion Gap [3.0-12.0] 9.0 (08/09/22 11:44 AM) Eos, Auto [0.00-3.00 %] 2.00 % (08/09/22 11:44 AM) eGFR CKD-EPI [>=60 mL/min/1.73 m2] 97 mL /min/1.73 m2 (08/09/22 11:44 AM) Radiology Reports * Exam Date Time Procedure Performing Provider Status 08/09/22 12:[address] Head w/o Contrast Nuvia Triplett ; Modified Notes: (CT Head w/o Contrast) Reason For Exam: seizure CT Head w/o Contrast ADDENDUM CT dated 11-16-20 was received and reviewed. High attenuation focus in the left frontal region measuring 8 mm x 8 mm similar to the current study. Presumably calcifications. Consider MRI if indicated. THIS DOCUMENT HAS BEEN ELECTRONICALLY SIGNED BY RADHA LEMUS MD on 08/09/2022 01:05 PM Final Signed by: Radha Lemus MD Signed (Electronic Signature): 08/09/2022 1:[address] Head w/o Contrast PROCEDURE INFORMATION: Exam: CT Head Without Contrast Exam date and time: 08/09/2022 12:00 PM Age: 36 years old Clinical indication: Other: Seizure TECHNIQUE: Imaging protocol: Computed tomography of the head without contrast. Radiation optimization: All CT scans at this facility use at least one of these dose optimization techniques: automated exposure control; mA and/or kV adjustment per patient size (includes targeted exams where dose is matched to clinical indication); or iterative reconstruction. REPORTING DATA: Count of CT and Cardiac NM exams in prior 12 months: This patient has received 0 known CTs and 0 known cardiac nuclear medicine studies in the 12 months prior to the current study. COMPARISON: MR BRAIN WO CONTRAST 11/16/2020 9:51 AM FINDINGS: Brain: No intra or extra-axial masses, lesions or collections. Chaves white matter distinction is maintained throughout the brain. No radiographic evidence of intracranial hemorrhage. No CT evidence of mass hemorrhage or acute infarction. Cerebral ventricles: Ventricles are of normal size and configuration. Calcifications in the left frontal lobe lateral to the frontal horn of the left lateral ventricle. Previously noted on MRI dated 11-16-20. Prior report not available. Paranasal sinuses: Mucosal thickening within the right maxillary sinus. Opacification/mucosal thickening in the sphenoid sinus. Mastoid air cells: Visualized mastoid air cells are well aerated. Bones/joints: Unremarkable. No acute fracture. Soft tissues: Sebaceous cyst within the scalp left right parietal region IMPRESSION: 1. Calcifications in the left frontal lobe lateral to the frontal horn of the left lateral ventricle. Previously noted on MRI dated 11-16-20. Prior report not available. 2. No acute intracranial process is appreciated. THIS DOCUMENT HAS BEEN ELECTRONICALLY SIGNED BY RADHA LEMUS MD on 08/09/2022 12:46 PM Final Signed by: Radha Lemus MD Signed (Electronic Signature): 08/09/2022 12:46 pm Vital Signs Most recent to oldest [Reference Range]: 1 2 3 Temperature Temporal Artery [36-38 Deg C] 36.5 Deg C (08/09/22 11:35 AM) Peripheral Pulse Rate [60-100 bpm] 57 bpm *LOW* (08/09/22 5:00 PM) 62 bpm (08/09/22 4:30 PM) 58 bpm *LOW* (08/09/22 4:00 PM) Heart Rate Monitored [60-100 bpm] 60 bpm (08/09/22 3:30 PM) 58 bpm *LOW* (08/09/22 3:00 PM) Respiratory Rate [12-24 br/min] 15 br/min (08/09/22 5:00 PM) 15 br/min (08/09/22 4:30 PM) 15 br/min (08/09/22 4:00 PM) Blood Pressure [90-140/60-90 mmHg] 108/72mmHg (08/09/22 5:00 PM) 91/56mmHg (08/09/22 4:30 PM) 95/53mmHg (08/09/22 4:00 PM) Mean Arterial Pressure Cuff 84 mmHg (08/09/22 5:00 PM) 69 mmHg (08/09/22 4:30 PM) 66 mmHg (08/09/22 4:00 PM) Weight Dosing 130.00 kg (08/09/22 11:40 AM) Weight Estimated 130.00 kg (08/09/22 11:35 AM) Height/Length Dosing 167.000 cm (08/09/22 11:40 AM) Height/Length Estimated 167.000 cm (08/09/22 11:35 AM) Social History Social History Type Response Tobacco Never tobacco user T obacco Use:. Sex Physician Emergency department Note * Medardo Olson MD: PERFORM Event Display: ED Note Physician Authored Date: [id number] CAMILA LEDESMA :1985 Age:36 years Sex:Female Visit Date:08/09/2022 Primary Care Physician: Medardo Sargent DO Basic Information Time Seen: Medardo Olson MD / 08/09/2022 11:38 Chief Complaint Patient brought to 6 after rapid response called in PCP office, patient had whitnessed seizure, knew she was going to have a seizure and laid down on the bed. Patient complains of headache. Reports she took her keppra this AM. 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 ??She did not have??incontinence did not have??tongue biting,??does have amnesia to the event however?suggesting a possible generalized tonic- clonic seizure, however??she also had stuttering speech??and??some responsiveness during the event??by report?making me question whether or not??this was in fact a pseudoseizure.?? Patient also has complaints of??headache and right ear pain. ??No fevers, no recent URIs, does have bad allergies.?? There is no clear history of trauma. ?? Emergency patient had another??episode of unresponsiveness, but apparently within 15 to 30 seconds she??was then responsive, talking though with some stuttering speech, and shaking??at the same time. Review of Systems: Review of Systems: Constitutional: [No fevers, chills, sweats] Eye: [No acute visual complaints] ENT: [Right ear pain without discharge, nasal congestion due to??allergies, - sore throat] Respiratory: [No shortness of breath, cough] Cardiovascular: [No Chest pain or palpitations] Gastrointestinal: [No nausea, vomiting, or diarrhea. No blooding or melena] Genitourinary: [No dysuria or hematuria] Musculoskeletal: [No acute back pain, neck pain, joint pain, muscle pain, decreased range of motion] Integumentary: [No rash, pruritus, abrasions] Neurologic: [Currently complaining of a headache,??describes about 5 episodes of blacking out over the last month, today had a seizure] ? Physical Exam: General: [Alert and oriented, well nourished, no acute distress].?? Eye: [PERRL, EOMI, normal conjunctiva]. HENT: [Normocephalic, normal hearing, moist oral mucosa, no scleral icterus, no nasal discharge].?? Neck: [Ranging neck, normal inspection].?? Lungs: [Clear to auscultation, non-labored respiration, no tachypnea].?? Heart: [Normal rate, regular rhythm, no murmur, gallop or edema]. Abdomen: [Soft, non-tender, non-distended, normal bowel sounds].?? Musculoskeletal: [Normal range of motion and strength, no tenderness or swelling]. Skin: [Skin is warm, dry and pink, no rashes or lesions]. Neurologic: [Awake, alert and oriented X4, normal tone, moving all extremities with good strength].[Ambulation intact].?? No cranial nerve??abnormalities??normal speech Psychiatric: [Anxious, tearful]. Physical Exam Vitals & Measurements T:??36.5?C ??(Temporal Artery)?? HR:??59??(Peripheral)?? RR:??14?? BP:??105/58?? SpO2:??96%?? HT:??167.000??cm?? WT:??130.00??kg??(Estimated)?? O2 Therapy:??Room air?? 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 ??Seizure?though has??multiple features suggesting??pseudoseizure.?? No tongue bite, no incontinence, very brief??postictal??period by report. ??Patient had another episode in the emergency department which was very brief,??although there was generalized shaking and some speech stuttering, her period of unresponsiveness was??only 15 to 30 seconds. ?? CT imaging with no acute findings; old hemangioma, no acute findings.?? 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 Given Tylenol and Toradol, magnesium and dexamethasone. ??Headache. ??Okay for discharge with follow-up with??[facility] Patient Discharge Condition Good Discharge Disposition Home Medication Reconciliation Unchanged busPIRone (busPIRone 5 mg oral tablet)1 tab Oral (given by mouth) 3 times a day. ?? citalopram (citalopram 40 mg oral tablet)Take 1 tablet by mouth once daily. Refills: 3. ?? fluticasone nasal (fluticasone 50 mcg/inh nasal spray)2 Sprays Nasal (into the nose) every day. Refills: 5. ?? levETIRAcetam (Keppra 500 mg oral tablet)1 tab Oral (given by mouth) every morning. ?? levETIRAcetam (levETIRAcetam 1000 mg oral tablet)1 tab Oral (given by mouth) every night at bedtime. ?? lisinopril (lisinopril 40 mg oral tablet)1 tab Oral (given by mouth) every day. Refills: 3. ?? LORazepam (LORazepam 1 mg oral tablet)1 tab Oral (given by mouth) every 6 hours as needed as neededfor anxiety for 4 Days. Refills: 1. ?? pantoprazole (pantoprazole 40 mg oral delayed release tablet)1 tab Oral (given by mouth) every day for 90 Days. Refills: 3. ?? pyridoxine (pyridoxine 100 mg oral tablet)1 tab Oral (given by mouth) every day for 90 Days. ?? SUMAtriptan (SUMAtriptan 100 mg oral tablet)9 EA, TAKE 1 TABLET BY MOUTH EVERY 24 HOURS NEEDED FOR HEADACHE - MAY REPEAT AFTER 2 HOURS - USE A DIRECTED - FOR 30 DAYS. ?? topiramate (topiramate 100 mg oral tablet)Take 1 tablet by mouth twice daily. Refills: 3. ?? Discontinued amoxicillin-clavulanate (!-Augmentin 875 mg-125 mg oral tablet)1 tab Oral (given by mouth) every 12hours for 10 Days. Refills: 0. 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 section???Dilation and curettage???Surgery???Surgery???Tubal ligation Medication Administration Given NS drip, 1000 mL, IV Bolus acetaminophen, 1000 mg, Oral dexamethasone 10 mg/mL injectable solution, 10 mg, IV Push ketorolac, 15 mg, IV Push magnesium sulfate, 1 g, IV Piggyback Allergies acetaminophen-oxycodone??(palpitations) Emgality??(Headache) Social History Alcohol Never Electronic Cigarette/Vaping Electronic Cigarette Use: Never. Tobacco Never tobacco user Tobacco Use:. Family History Alive: Mother and Father. Hypertension: Father. Diagnostic Results CT Head w/o Contrast 08/09/2022 13:[address] Head w/o Contrast ?? 08/09/22 12:00:26 PROCEDURE INFORMATION: Exam: CT Head Without Contrast Exam date and time: 08/09/2022 12:00 PM Age: 36 years old Clinical indication: Other: Seizure ?? TECHNIQUE: Imaging protocol: Computed tomography of the head without contrast. Radiation optimization: All CT scans at this facility use at least one of these dose optimization techniques: automated exposure control; mA and/or kV adjustment per patient size (includes targeted exams where dose is matched to clinical indication); or iterative reconstruction. ?? REPORTING DATA: Count of CT and Cardiac NM exams in prior 12 months: This patient has received 0 known CTs and 0 known cardiac nuclear medicine studies in the 12 months prior to the current study. ?? COMPARISON: MR BRAIN WO CONTRAST 11/16/2020 9:51 AM ?? FINDINGS: Brain: No intra or extra-axial masses, lesions or collections. Chaves white matter distinction is maintained throughout the brain. No radiographic evidence of intracranial hemorrhage. No CT evidence of mass hemorrhage or acute infarction. Cerebral ventricles: Ventricles are of normal size and configuration. Calcifications in the left frontal lobe lateral to the frontal horn of the left lateral ventricle. Previously noted on MRI dated 11-16-20. Prior report not available. Paranasal sinuses: Mucosal thickening within the right maxillary sinus. Opacification/mucosal thickening in the sphenoid sinus. Mastoid air cells: Visualized mastoid air cells are well aerated. ?? Bones/joints: Unremarkable. No acute fracture. Soft tissues: Sebaceous cyst within the scalp left right parietal region ?? IMPRESSION: 1. Calcifications in the left frontal lobe lateral to the frontal horn of the left lateral ventricle. Previously noted on MRI dated 11-16-20. Prior report not available. 2. No acute intracranial process is appreciated. ? THIS DOCUMENT HAS BEEN ELECTRONICALLY SIGNED BY RADHA LEMUS MD on 08/09/2022 12:46 PM ?? Signed By: Radha Lemus MD ?? 08/09/22 12:00:[address] dated 11-16-20 was received and reviewed. High attenuation focus in the left frontal region measuring 8 mm x 8 mm similar to the current study. Presumably calcifications. Consider MRI if indicated. ?? THIS DOCUMENT HAS BEEN ELECTRONICALLY SIGNED BY RADHA LEMUS MD on 08/09/2022 01:05 PM ?? Signed By: Radha Lemus MD Lab Results CBC and Differential?? LATEST RESULTS?? WBC?? 08/09/22 11:44?? 6.6?? RBC?? 08/09/22 11:44?? 4.61?? Hgb?? 08/09/22 11:44?? 13.7?? Hct?? 08/09/22 11:44?? 41.6?? MCV?? 08/09/22 11:44?? 90.2?? MCH?? 08/09/22 11:44?? 29.7?? MCHC?? 08/09/22 11:44?? 32.9?? RDW-CV?? 08/09/22 11:44?? 12.7?? Platelets?? 08/09/22 11:44?? 259?? MPV?? 08/09/22 11:44?? 10.0?? Neutro Auto?? 08/09/22 11:44?? 45.4?? Lymph Auto?? 08/09/22 11:44?? 43.6?? [place] Auto?? 08/09/22 11:44?? 8.5?? Eos, Auto?? 08/09/22 11:44?? 2.00?? Basophil Auto?? 08/09/22 11:44?? 0.3?? Imm Gran Auto?? 08/09/22 11:44?? 0.2?? Neutro Absolute?? 08/09/22 11:44?? 3.0?? Lymph Absolute?? 08/09/22 11:44?? 2.9?? [place] Absolute?? 08/09/22 11:44?? 0.6?? Eos Absolute?? 08/09/22 11:44?? 0.1?? Baso Absolute?? 08/09/22 11:44?? 0.0?? Imm Gran Absolute?? 08/09/22 11:44?? 0.01? Routine Chemistry?? LATEST RESULTS?? Sodium Level?? 08/09/22 11:44?? 138?? Potassium Level?? 08/09/22 11:44?? 3.9?? Chloride Level?? 08/09/22 11:44?? 108?? CO2?? 08/09/22 11:44?? 21 ??Low?? Alk Phos?? 08/09/22 11:44?? 54?? AST?? 08/09/22 11:44?? 22?? ALT?? 08/09/22 11:44?? 28?? BUN?? 08/09/22 11:44?? 9?? Glucose Level?? 08/09/22 11:44?? 98?? Creatinine Level?? 08/09/22 11:44?? 0.80?? BUN/Creat Ratio?? 08/09/22 11:44?? 11.2?? eGFR CKD-EPI?? 08/09/22 11:44?? 97?? Calcium Level?? 08/09/22 11:44?? 9.2?? Protein Total?? 08/09/22 11:44?? 7.6?? Albumin Level?? 08/09/22 11:44?? 4.3?? Globulin?? 08/09/22 11:44?? 3.3?? A/G Ratio?? 08/09/22 11:44?? 1.3?? Bilirubin Total?? 08/09/22 11:44?? 0.9?? Anion Gap?? 08/09/22 11:44?? 9.0?? Osmolality?? 08/09/22 11:44?? 274 ??Low? Electronically Signed on 08/09/22 04:32 PM Medardo Olson MD Emergency department Discharge instructions * Medardo Olson MD: PERFORM Event Display: ED Discharge Information Authored Date: [id number] CAMILA LEDESMA :1985 Age:36 years Sex:Female Visit Date:08/09/2022 Primary Care Physician: Medardo Sargent, DO Discharge Instructions We would like to thank you for allowing us to assist you with your healthcare needs. The following includes patient education materials and information regarding your injury/illness. Diagnosis from Today's Visit Migraine headache Atypical seizure Discharge Vitals Temperature??(Temporal Artery) 97.7 ??F (36.5 ??C) Heart Rate??(Peripheral) 59 Respiratory Rate?? 14 Blood Pressure?? 105/58?? Height?? 65.75 in (167.000 cm) Weight??(Estimated) 286.65 lb (130.00 kg) Allergies acetaminophen-oxycodone??(palpitations) Emgality??(Headache) What to Do Next Instructions from Your Care Team Continue your regular medications for seizures as well as??for headache management.?? The neurologyspecialist??does not think you are having??generalized tonic-clonic seizures that would require adjusting your medications.?? Aloe up with your primary care provider??and [facility]??neurology??(or Dr. Jones) for further management;??you should have a follow-up EEG??([facility]y is aware of this).?? Continue your buspirone??and Ativan as needed; take Tylenol??and/or Motrin??for headache as necessary as well.?? Return emergency if you are having measured fevers,??seizures with tongue bite, incontinence,??or any persistent neurologic problems??(weakness??on one side or the other, persistent speech??difficulty etc.). You were treated today on an emergency basis; it may be gil to contact your primary care provider to notify them of your visit today. You may have been referred to your regular doctor or a specialist, please follow up as instructed. If your condition worsens or you can't get in to see the doctor, contact the Emergency Department. Medications What How Much When Instructions Next Dose Unchanged busPIRone (busPIRone 5 mg oral tablet) 1 tab Oral (given by mouth) 3 times a day Unchanged citalopram (citalopram 40 mg oral tablet) See instructions Take 1 tablet by mouth once daily ?? Unchanged fluticasone nasal (fluticasone 50 mcg/ inh nasal spray) 2 Sprays Nasal (into the nose) Every day Unchanged levETIRAcetam (Keppra 500 mg oral tablet) 1 tab Oral (given by mouth) Every morning Unchanged levETIRAcetam (levETIRAcetam 1000 mg oral tablet) 1 tab Oral (given by mouth) Every night at bedtime Unchanged lisinopril (lisinopril 40 mg oral tablet) 1 tab Oral (given by mouth) Every day Unchanged LORazepam (LORazepam 1 mg oral tablet) 1 tab Oral (given by mouth) Every 6 hours as needed for as needed for anxiety Duration: 4 Days Unchanged pantoprazole (pantoprazole 40 mg oral delayed release tablet) 1 tab Oral (given by mouth) Every day Duration: 90 Days Unchanged pyridoxine (pyridoxine 100 mg oral tablet) 1 tab Oral (given by mouth) Every day Duration: 90 Days Unchanged SUMAtriptan (SUMAtriptan 100 mg oral tablet) 9 EA, TAKE 1 TABLET BY MOUTH EVERY 24 HOURS NEEDED FOR HEADACHE - MAY REPEAT AFTER 2 HOURS - USEA DIRECTED - FOR 30 DAYS ?? Unchanged topiramate (topiramate 100 mg oral tablet) See instructions Take 1 tablet by mouth twice daily ? What How Much When Why Comments Stop Taking amoxicillin-clavulanate (!-Augmentin 875 mg-125 mg oraltablet) 1 tab Oral (given by mouth) Every 12 hours Acute pansinusitis Duration: 10 Days Tests Performed Radiology CT Head w/o Contrast 08/09/2022 13:05 EDT Medications and Immunizations Administered Given NS drip, 1000 mL, IV Bolus acetaminophen, 1000 mg, Oral dexamethasone 10 mg/mL injectable solution, 10 mg, IV Push ketorolac, 15 mg, IV Push magnesium sulfate, 1 g, IV Piggyback Lab Test Name Test Result Date/Time WBC 6.6 K/mcL 08/09/2022 11:44 EDT RBC 4.61 Million/mcL 08/09/2022 11:44 EDT Hgb 13.7 g/dL 08/09/2022 11:44 EDT Hct 41.6 % 08/09/2022 11:44 EDT MCV 90.2 fL 08/09/2022 11:44 EDT MCH 29.7 pg 08/09/2022 11:44 EDT MCHC 32.9 g/dL 08/09/2022 11:44 EDT RDW-CV 12.7 % 08/09/2022 11:44 EDT Platelets 259 K/mcL 08/09/2022 11:44 EDT MPV 10.0 fL 08/09/2022 11:44 EDT Neutro Auto 45.4 % 08/09/2022 11:44 EDT Lymph Auto 43.6 % 08/09/2022 11:44 EDT [place] Auto 8.5 % 08/09/2022 11:44 EDT Eos, Auto 2.00 % 08/09/2022 11:44 EDT Basophil Auto 0.3 % 08/09/2022 11:44 EDT Imm Gran Auto 0.2 % 08/09/2022 11:44 EDT Neutro Absolute 3.0 K/mcL 08/09/2022 11:44 EDT Lymph Absolute 2.9 K/mcL 08/09/2022 11:44 EDT [place] Absolute 0.6 K/mcL 08/09/2022 11:44 EDT Eos Absolute 0.1 K/mcL 08/09/2022 11:44 EDT Baso Absolute 0.0 K/mcL 08/09/2022 11:44 EDT Imm Gran Absolute 0.01 08/09/2022 11:44 EDT Sodium Level 138 mmol/L 08/09/2022 11:44 EDT Potassium Level 3.9 mmol/L 08/09/2022 11:44 EDT Chloride Level 108 mmol/L 08/09/2022 11:44 EDT CO2 21 mmol/L 08/09/2022 11:44 EDT Alk Phos 54 IntlUnit/L 08/09/2022 11:44 EDT AST 22 IntlUnit/L 08/09/2022 11:44 EDT ALT 28 IntlUnit/L 08/09/2022 11:44 EDT BUN 9 mg/dL 08/09/2022 11:44 EDT Glucose Level 98 mg/dL 08/09/2022 11:44 EDT Creatinine Level 0.80 mg/dL 08/09/2022 11:44 EDT BUN/Creat Ratio 11.2 08/09/2022 11:44 EDT eGFR CKD-EPI 97 mL/min/1.73 m2 08/09/2022 11:44 EDT Calcium Level 9.2 mg/dL 08/09/2022 11:44 EDT Protein Total 7.6 g/dL 08/09/2022 11:44 EDT Albumin Level 4.3 g/dL 08/09/2022 11:44 EDT Globulin 3.3 08/09/2022 11:44 EDT A/G Ratio 1.3 08/09/2022 11:44 EDT Bilirubin Total 0.9 mg/dL 08/09/2022 11:44 EDT Anion Gap 9.0 08/09/2022 11:44 EDT Osmolality 274 mOsm/kg 08/09/2022 11:44 EDT Patient/Soap Slabber Signature Patient Name:CAMILA LEDESMA I have received this information and my questions have been answered. Patient/Soap Slabber Name: Patient/Soap Slabber Signature: Relationship to Patient: Witness Name/Signature: Date: Electronically Signed on: 08/09/2022 16:33 EDTSigned by:RML Patient Care team information Care Team Personnel Name: Medardo Sargent DO Position: Physician Member Role: Primary Care Physician Address: Address: [address] [place] [address] Name: Reyna Gonzales Position: Nurse Member Role: ED Nurse Name: Medardo Olson MD Position: Physician Member Role: ED Physician Address: Address: [facility] DEPT [address] [place] [address] Care Team Related Persons Name: GASPER LEDESMA Name: LEI BLACK
--- OUTSIDE RECORDS SUMMARY | 2024-01-13 19:01 | XMS_ITS | Encounter Summary ---
Author Organization [facility] [place] [address] Care Team Providers Care Heel Curver Name Role Phone None Primary Care Provider Unavailabl e Encounter Details Date Type Department Care Team (Late st Contact Info) Description 03/16/2010 9:40 AM EST Office Visit Obstetrics [place] [address] Grecia Baez CNM [facility] OBSTETRICS & [place] [address] Discharge Disposition: Home Social History Tobacco Use Types Packs/Day Years Used Date Smoking Tobacco: Never Assessed Sex and Gender Information Value Date Recorded Sex Assigned at Not on file Gender Identity Not on file Sexual Orientation Not on file documented as of this encounter Plan of Treatment Not on file documented as of this encounter Visit Diagnoses Not on filedocumented in this encounter Care Teams Heel Curver Relationship Specialty Start Date End Date None None PCP - General 01/10/10 05/31/10 documented as of this encounter
--- OUTSIDE RECORDS SUMMARY | 2024-01-13 19:01 | XMS_ITS | Encounter Summary ---
Author Organization [facility] [place] [address] Care Team Providers Care Ham Stripper Name Role Phone None Primary Care Provider Unavailabl e Encounter Details Date Type Department Care Team (Latest Contact Info) Description 02/06/2010 2:00 PM EST Routine Obstetrics [place] [address] Grecia Baez CNM [facility] [address] OBSTETRICS & [place] [address] Nuvia White, VJ Discharge Disposition: Home Social History Tobacco Use [...] on filedocumented in this encounter Care Teams Ham Stripper Relationship Specialty Start Date End Date None None PCP - General 01/10/10 05/31/10 documented as of this encounter
--- OUTSIDE RECORDS SUMMARY | 2024-01-13 19:01 | XMS_ITS | Continuity of Care Document ---
Author Organization [facility] Address [address] [place] [address] Care Team Providers Care Academic Advisement Director Name Role Phone Medardo Sargent DO Primary Care Physician [phone] Encounter [facility] NBR [id number] Date(s): 12/05/21 - 12/05/21 [facility] [address] [place] [id number] Encounter Diagnosis Allergic rhinitis due to pollen(Discharge Diagnosis) - 12/06/21 Discharge Disposition: Home or Self Care Attending Physician: Dion Maravilla DO Assessment and Plan Future Appointments Medications busPIRone 5 mg oral tablet 10 mg = 2 tab, Oral, TID, # 540 tab, 1 Refill(s), Pharmacy: [id number] Start Date: 12/05/21 Stop Date: 06/03/22 Status: Ordered lisinopril 40 mg oral tablet 1 tab, Oral, Daily, # 90 tab, 1 Refill(s), Pharmacy: [id number] Start Date: 11/26/21 Status: Ordered Problem List Condition Confirmation Course Effective Dates Status [facility] Informant Allergic rhinitis due to pollen Confirmed Active Patient Care team information Personnel Name: Medardo Sargent DO Address: Address: [address] [place] [phone] [place]
--- OUTSIDE RECORDS SUMMARY | 2024-01-13 19:01 | XMS_ITS | Encounter Summary ---
Author Organization [facility] [place] [address] Care Team Providers Care Scholastic Aptitude Test Grader Name Role Phone None Primary Care Provider Unavailabl e Encounter Details Date Type Department Care Team (Late st Contact Info) Description 02/09/2010 [place] [id number] Nuvia White CNM Social History Tobacco Use Types Packs/Day Years Used Date Smoking Tobacco: Never Assessed Sex and Gender Information Value Date Recorded Sex Assigned at Not on file Gender Identity Not on file Sexual Orientation Not on file documented as of this encounter Plan of Treatment Not on file documented as of this encounter Procedures Procedure Name Priority Date/Time Associated Diagnosis Comments U 24 URINE VOL/CRE Routine 02/09/2010 7: 40 AM EST PROTEIN, URINE, 24 HOUR Routine 02/09/2010 7:40 AM EST CREATININE CLEARANCE, URINE, 24 HOUR Routine 02/09/2010 7:40 AM EST documented in this encounter Results * (ABNORMAL) CREATININE CLEARANCE (02/09/2010 7:40 AM EST) Creatinine Clearance, 24 Hour Urine 252(H) 80 - 125 mL/min [facility]rine specimen (specimen) 02/09/2010 7:40 AM EST 02/09/2010 10:15 AM EST Nuvia White CNM URINE ORDERABLES CERNER MILLENNIUM * (ABNORMAL) PROTEIN, URINE, 24 HOUR (02/09/2010 7:40 AM EST) Protein Concentration, U24 <6 <=80 mg/dL CERNER MILLENNIUM Protein, 24 Hour Urine <0.23(H) <=0.15 gm/24hr CERNER MILLENNIUM Urine specimen (specimen) 02/09/2010 7:40 AM EST 02/09/2010 10:15 AM EST Nuvia White CNM URINE ORDERABLES CERNER MILLENNIUM * REFLEX LAB-U 24 URINE VOL/CRE (02/09/2010 7:40 AM EST) Hours Collected 24 hour(s) CERNER MILLENNIUM Total Volume 3900 mL CERNER MILLENNIUM Cre Concentration, U24 41 mg/dL CERNER MILLENNIUM Creatinine, 24 Hour Urine 1.60 0.80 - 1.90 gm/24hr CERNER MILLENNIUM Urine specimen (specimen) 02/09/2010 7:40 AM EST 02/09/2010 10:15 AM EST Nuvia White CNM URINE ORDERABLES CERADX TAYLORENNIUM documented in this encounter Visit Diagnoses Not on filedocumented in this encounter Care Teams Scholastic Aptitude Test Grader Relationship Specialty Start Date End Date None None PCP - General 01/10/10 05/31/10 documented as of this encounter
--- OUTSIDE RECORDS SUMMARY | 2024-01-13 19:01 | XMS_ITS | Continuity of Care Document ---
Author Organization [facility] Address [address] [place] [address] Care Team Providers Care Supervisor Rod Placing Name Role Phone Medardo Sargent DO Primary Care Physician Encounter [facility] [id number] Date(s): 07/24/22 - 07/24/22 [facility] [address] [place], [place] [address] Encounter Diagnosis Acute pansinusitis(Discharge Diagnosis) - 07/24/22 Discharge Disposition: Home or Self Care Attending Physician: GOLDEN Rodas Allergies, Adverse Reactions, Alerts Substance Reaction Severity Status acetaminophen-oxycodone palpitations Severe Acti ve Emgality 1 Headache Moderate Active 1300 MG dose, worsening headaches. Assessment and Plan Future Appointments Functional Status 07/24/22 Other exposure to Infectious Disease Non e Medications !-Augmentin 875 mg-125 mg oral tablet 1 tab, Oral, every 12 hr, # 20 tab, 0 Refill(s), Pharmacy: [facility] Start Date: 07/24/22 Stop Date: 08/03/22 Status: Ordered busPIRone 5 mg oral tablet 10 mg = 2 tab, Oral, TID, # 540 tab, 1 Refill(s), [id number] Start Date: 12/05/21 Stop Date: 06/03/22 Status: Ordered citalopram 40 mg oral tablet See Instructions, Take 1 tablet by mouth once daily, # 90 tab, 3 Refill(s), [id number] Start Date: 07/09/22 Status: Ordered fluticasone 50 mcg/inh nasal spray 2 sprays, Nasal, Daily, # 16 g, 5 Refill(s), Pharmacy: [id number] Start Date: 03/19/22 Status: Ordered levETIRAcetam 1000 mg oral tablet 180 EA, TAKE 1 TABLET BY MOUTH EVERY 12 HOURS, 0 Refill(s) Start Date: 02/15/22 Status: Ordered lisinopril 40 mg oral tablet 1 tab, Oral, Daily, # 90 tab, 3 Refill(s), Pharmacy: [id number] Start Date: 07/19/22 Status: Ordered LORazepam 1 mg oral tablet 1 mg = 1 tab, Oral, every 6 hr, PRN as needed for anxiety, # 15 tab, 1 Refill(s), Pharmacy: [facility] Start Date: 06/18/22 Stop Date: 06/26/22 Status: Ordered pantoprazole 40 mg oral delayed release tablet 40 mg = 1 tab, Oral, Daily, # 90 tab, 3 Refill(s), Pharmacy: [id number] Start Date: 05/24/22 Stop [...] daily, # 180 tab, 3 Refill(s), Pharmacy: [id number] Start Date: 05/07/22 Status: Ordered Problem List Condition Confirmation Course [...] right, 1 on left) for wandering eye Vital Signs Most recent to oldest [Reference Range]: 1 Temperature Temporal Artery [36-38 Deg C ] 36.9 Deg C (07/24/22 9:24 AM) Peripheral Pulse Rate [60-100 bpm] 77 bp m (07/24/22 9:24 AM) Blood Pressure [90-140/60-90 mmHg] 116/7 8mmHg (07/24/22 9:24 AM) Weight 131.8 kg (07/24/22 9:24 AM) Weight Measured (lbs) 290.569 lb (07/24/22 9:24 AM) [place] Body Weight Calculated 59.3 kg (07/24/22 9:24 AM) Height 167.64 cm (07/24/22 9:24 AM) Height/Length Measured (inches) 66 inch (07/24/22 9:24 AM) BSA Measured 2.48 m2 (07/24/22 9:24 AM) Body Mass Index 46.9 kg/m2 (07/24/22 9:24 AM) Social History Social History Type Response Tobacco Never tobacco user T obacco Use:. Sex Hospital Discharge Instructions Follow Up Care 07/18/2022 09:54:28 With:GOLDEN Rodas Address: [address] [place] [phone] When:1 month Physician Outpatient Note * GOLDEN Rodas: PERFORM Event Display: Office Clinic Note Physician Authored Date: [id number] CAMILA LEDESMA :1985 Age:36 years Sex:Female Visit Date:07/24/2022 Primary Care Physician: Medardo Sargent DO Chief Complaint Pt. is here for dizziness spell and confusion. happened 2X. a day. History of Present Illness Patient indicates blacking out with dizziness. some confusion.??She went to [facility] June 22 and wasevaluated with recommendation for monitoring. She has been able to f/u with Dr Jordan, July 30. ?? H/O allergies and getting injections for treatment. Has exposure to allergens all the time due to so many allergies. Lives with dog, etc. uses nasal wash twice daily.?? recommedation from library clerk. ?? Has h/o sinus problems. Wants abx if indicated. ?? She gets yeast infections with abx. Review of Systems Constitutional:?No??fevers,?No??chills,?No??sweats ?? ENT:?No??ear pain,?Positive for??nasal congestion,?No??sore throat ?? Integumentary:?No??rash,?No??pruritus,?No??abrasions Neurologic: Alert & oriented X 4 Psychiatric:?No??anxiety,?No??depression Physical Exam Vitals & Measurements T:??36.9?C ??(Temporal Artery)?? HR:??77??(Peripheral)?? BP:??116/78?? SpO2:??97%?? HT:??167.64??cm?? WT:??131.8??kg?? BMI:??46.9?? BSA:??2.48?? General:??Alert,??No Acute Distress. Eyes: conjunctiva??Clear HENT:??Normocephalic, tympanic membranes??Bulging,??ear canal??Normal, nares??Erythematous, pharynx??Clear, frontal sinus??Non-Tender, maxillary sinus??Non-Tender. ?? Skin:??No Rash,??No Palor. Assessment/Plan Acute pansinusitis??J01.40 Ordered: !-Augmentin 875 mg-125 mg oral tablet, 1 tab, Oral, every 12 hr, # 20 tab, 0 Refill(s), Pharmacy: [id number] ?? Orders: Diflucan 150 mg oral tablet, 150 mg = 1 tab, Oral, Once, # 1 tab, 0 Refill(s), Pharmacy: [id number] Patient Instructions continue suki f/u with Dr Jones Follow Up Instructions With When Contact Information GOLDEN Rodas Within 1 month [address] [place] [address] Additional Instructions: Problem List/Past Medical History Ongoing Acute pansinusitis [...] Procedure/Surgical History ???Ablation??? section???Dilation and curettage???Surgery???Surgery???Tubal ligation Medications !-Augmentin 875 mg-125 mg oral tablet, 1 tab, Oral, every 12 hr busPIRone 5 mg oral tablet, 10 mg= 2 tab, Oral, TID, 1 refills citalopram 40 mg oral tablet, See Instructions Diflucan 150 mg oral tablet, 150 mg= 1 tab, Oral, Once fluticasone 50 mcg/inh nasal spray, 2 sprays, Nasal, Daily levETIRAcetam 1000 mg oral tablet lisinopril 40 mg oral tablet, 1 tab, Oral, Daily LORazepam 1 mg oral tablet, 1 mg= 1 tab, Oral, every 6 hr, PRN, 1 refills pantoprazole 40 mg oral delayed release tablet, 40 mg= 1 tab, Oral, Daily, 3 refills pyridoxine 100 mg oral tablet, 100 mg= 1 tab, Oral, Daily SUMAtriptan 100 mg oral tablet topiramate 100 mg oral tablet, See Instructions Allergies acetaminophen-oxycodone??(palpitations) Emgality??(Headache) Social History Alcohol Never Electronic Cigarette/Vaping Electronic Cigarette Use: Never. Tobacco Never tobacco user Tobacco Use:. Family History Alive: Mother and Father. Hypertension: Father. Electronically Signed on 07/24/22 10:16 AM GOLDEN Rodas Patient Care team information Care Team Personnel Name: Medardo Sargent DO Position: Physician Member Role: Primary Care Physician Address: Address: [address] [place] [phone] [place] Care Team Related Persons Name: GASPER LEDESMA Name: LEI BLACK
--- OUTSIDE RECORDS SUMMARY | 2024-01-13 19:01 | XMS_ITS | Encounter Summary ---
Author Organization [facility] [place] [address] Care Team Providers Care Swimming Pool Maintenance Name Role Phone None Primary Care Provider Unavailabl e Encounter Details Date Type Department Care Team (Latest Contact Info) Description 02/25/2010 10:48 AM EST - 02/25/2010 11:47 AM [facility] Hospital Encounter [facility] [place] [address] [facility] [address] OBSTETRICS [place] [address] Discharge Disposition: Home Social History Tobacco Use [...] on filedocumented in this encounter Care Teams Swimming Pool Maintenance Relationship Specialty Start Date End Date None None PCP - General 01/10/10 05/31/10 documented as of this encounter
--- OUTSIDE RECORDS SUMMARY | 2024-01-13 19:01 | XMS_ITS | Encounter Summary ---
[place] [address] Care Team Providers Care Stained Glass Glazier Helper Name Role Phone None Primary Care Provider Unavailabl e Encounter Details Date Type Department Care Team (Late st Contact Info) Description 03/16/2010 9:00 AM EST Procedure visit Obstetrics [place] [address] Social History Tobacco Use Types Packs/Day Years Used Date Smoking Tobacco: Never Assessed Sex and Gender Information Value Date Recorded Sex Assigned at Not on file Gender Identity Not on file Sexual Orientation Not on file documented as of this encounter Plan of Treatment Not on file documented as of this encounter Visit Diagnoses Not on filedocumented in this encounter Care Teams Stained Glass Glazier Helper Relationship Specialty Start Date End Date None None PCP - General 01/10/10 05/31/10 documented as of this encounter
--- OUTSIDE RECORDS SUMMARY | 2024-01-13 19:01 | XMS_ITS | Encounter Summary ---
Author Organization [facility] Address [facility] [place] [address] Care Team Providers Care Building Cleaning Supervisor Name Role Phone None Primary Care Provider Unavailabl e Encounter Details Date Type Department Care Team (Latest Contact Info) Description 02/24/2010 8:45 AM EST - 02/24/2010 10:[address] [facility] Hospital Encounter [place]thing [place] [address] Iggy Thomas MD [facility] [address] OBSTETRICS [place] [address] Discharge Disposition: Home Social History Tobacco Use [...] on filedocumented in this encounter Care Teams Building Cleaning Supervisor Relationship Specialty Start Date End Date None None PCP - General 01/10/10 05/31/10 documented as of this encounter
--- OUTSIDE RECORDS SUMMARY | 2024-01-13 19:01 | XMS_ITS | Encounter Summary ---
Author Organization [facility] [place] [address] Care Team Providers Care Fish Peddler Name Role Phone None Primary Care Provider Unavailabl e Encounter Details Date Type Department Care Team (Late st Contact Info) Description 03/20/2010 10:40 AM EST Office Visit Obstetrics [place] [address] Iman Nation, [facility] [address] OBSTETRICS [place] [address] Discharge Disposition: Home Social History Tobacco Use [...] on filedocumented in this encounter Care Teams Fish Peddler Relationship Specialty Start Date End Date None None PCP - General 01/10/10 05/31/10 documented as of this encounter
--- OUTSIDE RECORDS SUMMARY | 2024-01-13 19:01 | XMS_ITS | Continuity of Care Document ---
Author Organization [facility] Ambulatory Clinics Address [address] [place] [address] Care Team Providers Care Load Mixer Name Role Phone Medardo Sargent DO Primary Care Physician Encounter [facility] NBR [id number] Date(s): 10/05/22 - 10/05/22 [facility] [address] [place] [address]- Encounter Diagnosis Convulsion, non-epileptic(Discharge Diagnosis) - 10/05/22 Refractory migraine without aura(Discharge Diagnosis) - 10/05/22 Multiple allergies(Discharge Diagnosis) - 10/05/22 Hospital discharge follow-up(Discharge Diagnosis) - 10/05/22 Discharge Disposition: Home or Self Care Attending Physician: Stefany Hopkins MD Allergies, Adverse Reactions, Alerts Substance Reaction Severity Status acetaminophen-oxycodone palpitations Severe Acti ve Emgality 1 Headache Moderate Active 1300 MG dose, worsening headaches. Assessment and Plan Future Scheduled Tests Radiology* MRI Brain w/ + w/o Contrast 08/16/22 Functional Status 10/05/22 Other exposure to Infectious Disease Non e Immunizations Given and Recorded Vaccine Date Status Refusal Reason measles/mumps/rubella/varicella vaccine 1 11/04/15 Recorded varicella virus vaccine 2 08/14/12 Recorded measles/mumps/rubella virus vaccine 3 05/14/12 Rec orded rotavirus, pentavalent (RV5) 4 08/20/11 Recorded rotavirus, pentavalent (RV5) 5 06/11/11 Recorded 1Result Comment: Unit: Unknown apparent error based on age/dates 2Result Comment: Unit: Unknown 3Result Comment: Unit: Unknown apparent error based on age/dates 4Result Comment: Unit: Unknown apparent error based on age/dates 5Result Comment: Unit: Unknown apparent error based on age/dates Medications busPIRone 5 mg oral tablet 5 mg = 1 tab, Oral, TID Start Date: 08/09/22 Status: Ordered citalopram 40 mg oral tablet See Instructions, Take 1 tablet by mouth once daily, # 90 tab, 3 Refill(s), Pharmacy: [id number] Start Date: 07/09/22 Status: Ordered fluticasone 50 mcg/inh nasal spray 2 sprays, Nasal, Daily, # 16 g, 5 Refill(s), Pharmacy: [facility] [id number] Start Date: 03/19/22 Status: Ordered lisinopril 40 mg oral tablet 1 tab, Oral, Daily, # 90 tab, 3 Refill(s), Pharmacy: [facility] [id number] Start Date: 07/19/22 Status: Ordered LORazepam 1 mg oral tablet 1 mg = 1 tab, Oral, every 6 hr, PRN as needed for anxiety, # 15 tab, 1 Refill(s), Pharmacy: [facility] [id number], 167, cm, 08/09/22 11:40:00 EDT, Height/Length Dosing, 130, kg, 08/09/22 11:40:00 EDT, Weight Dosing Start Date: 08/15/22 Stop Date: 08/23/22 Status: Ordered pantoprazole 40 mg oral delayed release tablet 40 mg = 1 tab, Oral, Daily, # 90 tab, 3 Refill(s), Pharmacy: [facility] [id number] Start Date: 05/24/22 Stop Date: 05/19/23 Status: Ordered pyridoxine 100 mg oral tablet 100 mg = 1 tab, Oral, Daily, # 90 tab, 0 Refill(s) Start Date: 02/15/22 Stop Date: 05/16/22 Status: Ordered SUMAtriptan 100 mg oral tablet 100 mg = 1 tab, Oral, Once, 9 EA, TAKE 1 TABLET BY MOUTH EVERY 24 HOURS NEEDED FOR HEADACHE - MAY REPEAT AFTER 2 HOURS - USE A DIRECTED - FOR 30 DAYS, # 9 tab, 1 Refill(s), Pharmacy: [facility] [id number], 167, cm, 08/09/22 11:40:00 EDT, Height/Length Dosing, 130, kg, 08/09/22 11:40:00 EDT, Weight Dosing Start Date: 08/15/22 Status: Ordered topiramate 100 mg oral tablet See Instructions, Take 1 tablet by mouth twice daily, # 180 tab, 3 Refill(s), Pharmacy: [id number] Start Date: 05/07/22 Status: Ordered Problem List Condition Confirmation Course Effective Dates Status H ealth Status Informant Multiple allergies Confirmed Active Allergic rhinitis Confirmed Active Allergic rhinitis due to pollen Confirmed Active Anxiety Confirmed Active Body mass index 40+ - severely obese Confirmed Active Chronic frontal sinusitis Confirmed Active Chronic maxillary sinusitis Confirmed Active Chronic rhinitis Confirmed Active 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 Essential hypertension Confirmed Active Hemicrania continua Confirmed Active Refractory migraine without aura Confirmed Active Seizure Confirmed Active Convulsion, non-epileptic Confirmed Active Procedures Procedure Date Related Diagnosis Body Site Status Ablation 1 Completed section Complete d Dilation and curettage Co mpleted Surgery 2 Completed Surgery 3 Completed Tubal ligation Completed 1cervical ablation -brain surgery 3eye surgery x 3 (2 on right, 1 on left) for wandering eye Vital Signs Most recent to oldest [Reference Range]: 1 Temperature Tympanic [36.6-37.9 Deg C] 3 5.2 Deg C *LOW* (10/05/22 2:24 PM) Peripheral Pulse Rate [60-100 bpm] 58 bp m *LOW* (10/05/22 2:24 PM) Blood Pressure [90-140/60-90 mmHg] 126/6 8mmHg (10/05/22 2:24 PM) Weight 131.7 kg (10/05/22 2:24 PM) Weight Measured (lbs) 290.348 lb (10/05/22 2:24 PM) Social History Social History Type Response Tobacco Never tobacco user T obacco Use:. Sex Physician Outpatient Note * Stefany Hopkins MD: PERFORM Event Display: Office Clinic Note Physician Authored Date: [id number] CAMILA LEDESMA :1985 Age:36 years Sex:Female Visit Date:10/05/2022 Primary Care Physician: Medardo Sargent DO Chief Complaint [facility] follow up History of Present Illness Presents for??hospital follow-up. Admitted to [facility] 09/24-09/28 for further evaluation of her seizure-like activity that has been intermittent since 2019. 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 In hospital last week, she had??72-hour video EEG monitoring and repeat MRI 09/25 that was stable from prior. No epileptiform activity was detected. Keppra was stopped due to mood changes (had been on 2000 mg/day??eventually, after 2 years of slow up-titration). She was??continued on??topiramate 100 mg BID alone. 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 Since her hospitalization, she has felt better energy and mood, more effective in her tasks. She isstruggling to sleep, recommended melatonin by phone on 10/01. Currently taking 5 mg of melatonin andthat does seem to be helping, not needing this every night. She has taken daytime rest/nap ~45-60 minutes twice since getting home from the hospital??- used to need 2+ hour naps daily??to be able to function.??Still having the right-sided scalp head pain, but less than before. Has been increasing hydration - takes Tylenol as something to do, but does not provide any relief. Has continued to drive, but is able to pull worker and stop car when she feels an episode coming on, and does not get behind the wheel of a car if she's feeling unwell. Has been holding off on her allergy shots since 09/11, when she had a triggered convulsive episode immediately after the allergy shot, seen in ER 09/11. Trying to let her body re-set before resuming allergy shots, trying to reduce any outside exposure that could be causing her episodes. She is having significant itching, but manageable - keeps house cool, air filters changed, vacuumed, pet-free zones, hypo-allergenic soap. Avoids allergy medications in general. Review of Systems as per HPI Physical Exam Vitals & Measurements T:??35.2?C ??(Tympanic)?? HR:??58??(Peripheral)?? BP:??126/68?? SpO2:??97%?? WT:??131.7??kg?? 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 continue topiramate 100 mg BID, no longer on Keppra self-care reviewed - she is hydrating and trying to rest and reduce stress to avoid triggering an episode 3.??Refractory migraine without aura??G43.019 on topiramate 100 mg BID and sumatriptan PRN now following with [facility] neurology, considering occipital nerve blocks for her ongoing right posterior head pain 4.??Multiple allergies??Z88.9 allergy shots are on hiatus currently, since a triggered convulsive episode on 09/11, will resume when recommended by ENT and comfortable to do so Problem List/Past Medical History Ongoing Allergic rhinitis Allergic rhinitis due to pollen Anxiety Body mass index 40+ - severely obese Chronic frontal sinusitis Chronic maxillary sinusitis Chronic rhinitis Congenital anomaly of cerebrovascular system Convulsion, non-epileptic Dissociative convulsions Essential hypertension Hemicrania continua Multiple allergies Refractory migraine without aura Seizure Procedure/Surgical History ???Ablation??? section???Dilation and curettage???Surgery???Surgery???Tubal ligation Medications busPIRone 5 mg oral tablet, 5 mg= 1 tab, Oral, TID citalopram 40 mg oral tablet, See Instructions fluticasone 50 mcg/inh nasal spray, 2 sprays, Nasal, Daily lisinopril 40 mg oral tablet, 1 tab, Oral, Daily LORazepam 1 mg oral tablet, 1 mg= 1 tab, Oral, every 6 hr, PRN, 1 refills pantoprazole 40 mg oral delayed release tablet, 40 mg= 1 tab, Oral, Daily, 3 refills pyridoxine 100 mg oral tablet, 100 mg= 1 tab, Oral, Daily SUMAtriptan 100 mg oral tablet, 100 mg= 1 tab, Oral, Once, 1 refills topiramate 100 mg oral tablet, See Instructions Allergies acetaminophen-oxycodone??(palpitations) Emgality??(Headache) Social History Alcohol Never Electronic Cigarette/Vaping Electronic Cigarette Use: Never. Substance Use Never Tobacco Never tobacco user Tobacco Use:. Family History Alive: Mother and Father. Hypertension: Father. Immunizations Vaccine Date Status varicella virus vaccine 08/14/2012 Recorded Comments : Unit: Unknown Electronically Signed on 10/05/22 03:01 PM Stefany Hopkins MD Patient Care team information Care Team Personnel Name: Medardo Sargent DO Position: Physician Member Role: Primary Care Physician Address: Address: [address] [place] [id number] [place] Care Team Related Persons Name: GASPER LEDESMA Name: LEI BLACK
--- OUTSIDE RECORDS SUMMARY | 2024-01-13 19:01 | XMS_ITS | Continuity of Care Document ---
Author Organization [facility] Ambulatory Clinics Address [address] [place] [address] Care Team Providers Care Statistics Manager Name Role Phone Medardo Sargent DO Primary Care Physician Encounter [facility] NBR [id number] Date(s): 10/19/22 - 10/19/22 [facility] Ambulatory [facility] [address] [place] [address]- Encounter Diagnosis Allergic rhinitis(Discharge Diagnosis) - 10/17/22 Lesion of brain(Discharge Diagnosis) - 10/19/22 Reaction to allergy injection(Discharge Diagnosis) - 10/19/22 Adverse effect of antiallergic and antiemetic drugs, initial encounter(Discharge Diagnosis) - 10/19/22 Convulsion, non-epileptic(Discharge Diagnosis) - 10/19/22 Discharge Disposition: Home or Self Care Attending Physician: Dion Maravilla DO Referring Physician: Medardo Sargent DO Allergies, Adverse Reactions, Alerts Substance Reaction Severity Status acetaminophen-oxycodone palpitations Severe Acti ve Emgality 1 Headache Moderate Active 1300 MG dose, worsening headaches. Assessment and Plan Future Scheduled Tests Radiology* MRI Brain w/ + w/o Contrast 08/16/22 Immunizations Given and Recorded Vaccine Date Status [...] daily, # 90 tab, 3 Refill(s), Pharmacy: [facility] [id number] Start Date: 07/09/22 Status: Ordered fexofenadine 180 mg oral tablet 180 mg = 1 tab, Oral, Daily, # 30 tab, 0 Refill(s), Pharmacy: [facility] [id number], 168, cm, 09/13/22 9:44:00 EDT, Height/Length Dosing, 130, kg, 09/13/22 9:44:00 EDT, Weight Dosing Start Date: 10/19/22 Status: Ordered fluticasone 50 mcg/inh nasal spray 2 sprays, Nasal, Daily, # 16 g, 5 Refill(s), Pharmacy: [facility] [id number] Start Date: 03/19/22 Status: Ordered lisinopril 40 mg oral tablet 1 tab, Oral, Daily, # 90 tab, 3 Refill(s), Pharmacy: [facility] [id number] Start Date: 07/19/22 Status: Ordered LORazepam 1 mg oral tablet 1 mg = 1 tab, Oral, every 6 hr, PRN as needed for anxiety, # 15 tab, 1 Refill(s), Pharmacy: [facility] [id number], 167, cm, 08/09/22 11:40:00 EDT, Height/Length Dosing, 130, kg, 08/09/22 11:40:00 EDT, Weight Dosing Start Date: 08/15/22 Stop Date: 08/23/22 Status: Ordered pantoprazole 40 mg oral delayed release tablet 40 mg = 1 tab, Oral, Daily, # 90 tab, 3 Refill(s), Pharmacy: [facility] [id number] Start Date: 05/24/22 Stop Date: 05/19/23 Status: Ordered pyridoxine 100 mg oral tablet 100 mg = 1 tab, Oral, Daily, # 90 tab, 0 Refill(s) Start Date: 02/15/22 Stop Date: 05/16/22 Status: Ordered Singulair 10 mg oral tablet 10 mg = 1 tab, Oral, Daily, # 90 tab, 0 Refill(s), Pharmacy: [id number], 168, cm, 09/13/22 9:44:00 EDT, Height/Length Dosing, 130, kg, 09/13/22 9:44:00 EDT, Weight Dosing Start Date: 10/19/22 Status: Ordered SUMAtriptan 100 mg oral tablet 100 mg = 1 tab, Oral, Once, 9 EA, TAKE 1 TABLET BY MOUTH EVERY 24 HOURS NEEDED FOR HEADACHE - MAY REPEAT AFTER 2 HOURS - USE A DIRECTED - FOR 30 DAYS, # 9 tab, 1 Refill(s), Pharmacy: [id number], 167, cm, 08/09/22 11:40:00 EDT, Height/Length Dosing, 130, kg, 08/09/22 11:40:00 EDT, Weight Dosing Start Date: 08/15/22 Status: Ordered topiramate 100 mg oral tablet See Instructions, Take 1 tablet by mouth twice daily, # 180 tab, 3 Refill(s), Pharmacy: [id number] Start Date: 05/07/22 Status: Ordered Problem List Condition Confirmation Course Effective Dates Status H ealth Status Informant Reaction to allergy injection Confirmed Active Multiple allergies Confirmed Active Allergic rhinitis Confirmed Active Allergic rhinitis due to pollen Confirmed Active Anxiety Confirmed Active Body mass index 40+ - severely obese Confirmed Active Chronic frontal sinusitis Confirmed Active Chronic maxillary sinusitis Confirmed Active Chronic rhinitis Confirmed Active 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 Essential hypertension Confirmed Active Hemicrania continua Confirmed Active Lesion of brain Confirmed Active Refractory migraine without aura Confirmed Active Seizure Confirmed Active Convulsion, non-epileptic Confirmed Active Procedures Procedure Date Related Diagnosis Body Site Status Ablation 1 Completed section Complete d Dilation and curettage Co mpleted Surgery 2 Completed Surgery 3 Completed Tubal ligation Completed 1cervical ablation -brain surgery 3eye surgery x 3 (2 on right, 1 on left) for wandering eye Social History Social History Type Response Tobacco Never tobacco user T obacco Use:. Sex Physician Outpatient Note * Dion Maravilla, DO: PERFORM Dion Maravilla DO: PERFORM, MODIFY Dion Maravilla DO: MODIFY, MODIFY Event Display: Office Clinic Note Physician Authored Date: [id number] CAMILA LEDESMA :1985 Age:36 years Sex:Female Visit Date:10/19/2022 Primary Care Physician: Medardo Sargent DO Chief Complaint Established- Discuss allergy shots History of Present Illness Established patient in the office today to discuss stopping her allergy shots. Patient has not had a shot since 09/11. She was seen in the ED for convulsive episodes and these have happened multiple times over the past few months. She is concerned that the shots may be a trigger for the episodes. Her EEG had no epileptiform activity. She does have a follow up with [facility]. She is still on Topiramate. [facility] is planning to do nerve blocks. Patient notes that her neurologist is having her avoid all ofher allergens to see if there is improvement with the episodes she has been experiencing lately. ??Patient with a history of craniotomy and benign mass occupying brain lesion which was the??thought??of etiology to her prior seizures. ??Patient notes she is in the middle of transitioning from everything and has seen no improvement since. Patient notes that she got her shot and about 3 hours later she was in the ambulance. ??She recalls having an allergy injection around the time of not feeling well. 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 ??Patient notes that she had about 17 pain seizures in 3 days at he end of August. She has been consistently seeing [facility] neurology. Patient would still like to control the allergies but would like to avoid the shots. Patient had a craniotomy to remove the lesion off of her brain and that went well. Then a few months later she started having episodes again. She was seen at [facility] and there was another lesion found. Patient notes that the??second lesion is too close to her spine so her next steps will be to try a nerve block. Review of Systems Negative for: no new cardiac, respiratory, GI, , hematologic, neurologic, psychological, allergic, traumatic or endocrine problems except as listed above Physical Exam GENERAL APPEARANCE:??The patient is awake, alert, and oriented and in no acute distress, Appears nutritionally sound, Healthy in appearance, Voice is strong, with no stridor or stertor, Handling secretions without difficulty.?PSYCH:??affect normal, good eye contact, oriented to person, oriented to place, oriented to time.?NEURO:??CN's II-XII grossly intact, Gait is normal, The patient has endpoint nystagmus only.?HEENT:??The patient is normocephalic with a normal facies with cranial nerves 2 through 12 bilaterally equal and intact. Pupils are equal and reactive to light with extraocular movements bilaterally equal and intact. There is no proptosis or enophthalmos,??EARS:, Ear exam reveals normal appearing pinna bilaterally. Mastoids are normal to palpation and nontender bilaterally. the ext ernal canal are patent, without otorrhea, with bilateral TM's mobile with no evidence of middle earfluid, middle ear masses, or retraction pockets.??NOSE:, The inferior turbinates are within normal limits, right-sided nasal septal deviation, the middle meati are unremarkable with no polyps, massesor purulent discharge,??ORAL CAVITY:, no trismus, tongue and floor of mouth are normal to inspection and palpation. Mucosa is moist and healthy throughout. the palate is intact and elevates symmetrically in midline,??OROPHARYNX:, Uvula midline, soft palate symmetric.?MUSCULOSKELETAL:??normal gait and station.?? Assessment/Plan 1.??Allergic rhinitis??J30.9 Patient and I discussed all of her neurology plans and diagnosis. We discussed that she can still benefit from an allergy medication regiment. We discussed the benefits of pretreating before she is around certain allergens. Patient was given hand out on mold elimination diet. Patient and I discussed that she would benefit from taking a break from allergy shots. ??charli Gonzalez?? [facility] [place] Ordered: fexofenadine 180 mg oral tablet, 180 mg = 1 tab, Oral, Daily, # 30 tab, 0 Refill(s), Pharmacy: [id number], 168, cm, 09/13/22 9:44:00 EDT, Height/Length Dosing, 130, kg, 07/27/23 9:44:00 EDT, Weight Dosing Singulair 10 mg oral tablet, 10 mg = 1 tab, Oral, Daily, # 90 tab, 0 Refill(s), Pharmacy: [id number], 168, cm, 09/13/22 9:44:00 EDT, Height/Length Dosing, 130, kg, 09/13/22 9:44:00 EDT, Weight Dosing ?? 2.??Lesion of brain??G93.9 Patient will follow with neurology. Ordered: fexofenadine 180 mg oral tablet, 180 mg = 1 tab, Oral, Daily, # 30 tab, 0 Refill(s), Pharmacy: [facility], 168, cm, 09/13/22 9:44:00 EDT, Height/Length Dosing, 130, kg, 09/13/22 9:44:00 EDT, Weight Dosing ?? 3.??Reaction to allergy injection??T80.89XA Ordered: fexofenadine 180 mg oral tablet, 180 mg = 1 tab, Oral, Daily, # 30 tab, 0 Refill(s), Pharmacy: [facility], 168, cm, 09/13/22 9:44:00 EDT, Height/Length Dosing, 130, kg, 09/13/22 9:44:00 EDT, Weight Dosing ?? 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 Adverse effect of antiallergic and antiemetic drugs, initial encounter??T45.0X5A At this time I do not feel that??the allergy injection necessarily was the etiology to her repeat seizure. ??She continues to work with neurology??and continues to monitor the second brain lesion identified. ?? Problem List/Past Medical History Ongoing Allergic rhinitis Allergic rhinitis due to pollen Anxiety Body mass index 40+ - severely obese Chronic frontal sinusitis Chronic maxillary sinusitis Chronic rhinitis Congenital anomaly of cerebrovascular system Convulsion, non-epileptic Dissociative convulsions Essential hypertension Hemicrania continua Multiple allergies Refractory migraine without aura Seizure Historical Acute pansinusitis History of clinical finding in subject Procedure/Surgical History ???Ablation??? section???Dilation and curettage???Surgery???Surgery???Tubal ligation [...] Comments : Unit: Unknown Electronically Signed on 10/19/22 09:57 AM iDon Maravilla DO Patient Care team information Care Team Personnel Name: Medardo Sargent DO Position: Physician Member Role: Primary Care Physician Address: Address: [address] [place] [id number] [place] Care Team Related Persons Name: GASPER LEDESMA Name: LEI BLACK
--- OUTSIDE RECORDS SUMMARY | 2024-01-13 19:01 | XMS_ITS | Encounter Summary ---
[place] [address] Care Team Providers Care Halfway House Counselor Name Role Phone None Primary Care Provider Unavailabl e Encounter Details Date Type Department Care Team (Late st Contact Info) Description 03/23/2010 9:15 AM EST Procedure visit [facility] [place] [address] Social History Tobacco Use Types Packs/Day Years [...] on filedocumented in this encounter Care Teams Halfway House Counselor Relationship Specialty Start Date End Date None None PCP - General 01/10/10 05/31/10 documented as of this encounter
--- OUTSIDE RECORDS SUMMARY | 2024-01-13 19:01 | XMS_ITS | Encounter Summary ---
Author Organization [facility] [place] [address] Care Team Providers Care Demo Event Specialist Name Role Phone None Primary Care Provider Unavailabl e Encounter Details Date Type Department Care Team (Latest Contact Info) Description 02/13/2010 1:00 PM EST Routine Obstetrics [place] [address] Anay Gutierres, [facility] [place] [address] Discharge Disposition: Home Social History Tobacco Use [...] on filedocumented in this encounter Care Teams Demo Event Specialist Relationship Specialty Start Date End Date None None PCP - General 01/10/10 05/31/10 documented as of this encounter
--- OUTSIDE RECORDS SUMMARY | 2024-01-13 19:01 | XMS_ITS | Continuity of Care Document ---
Author Organization [facility] Ambulatory Clinics Address [address] [place] [address] Care Team Providers Care Machine Sole Leveler Name Role Phone Medardo Sargent DO Primary Care Physician Encounter [facility] NBR [id number] Date(s): 09/04/22 - 09/04/22 [facility] Ambulatory Clinics [address] [place] [address]- Encounter Diagnosis Allergic rhinitis(Discharge Diagnosis) - 09/04/22 Allergic rhinitis, unspecified(Final) - Discharge Disposition: Home or Self Care Allergies, Adverse Reactions, Alerts Substance Reaction Severity [...] daily, # 90 tab, 3 Refill(s), Pharmacy: [id number] Start Date: 07/09/22 Status: Ordered fluticasone 50 mcg/inh nasal spray 2 sprays, Nasal, Daily, # 16 g, 5 Refill(s), Pharmacy: [facility] [id number] Start Date: 03/19/22 Status: Ordered levETIRAcetam 1000 mg oral tablet 1 tab, Oral, every night at bedtime, # 90 tab, 0 Refill(s), Pharmacy: [place] [id number], 167, cm, 08/09/22 11:40:00 EDT, Height/Length Dosing, 130, kg, 08/09/22 11:40:00 EDT, Weight Dosing Start Date: 08/17/22 Status: Ordered levETIRAcetam 500 mg oral tablet 500 mg = 1 tab, Oral, every morning, # 90 tab, 1 Refill(s), Pharmacy: [place] [id number], 167, cm, 08/09/22 11:40:00 EDT, Height/Length Dosing, 130, kg, 08/09/22 11:40:00 EDT, Weight Dosing Start Date: 08/17/22 Status: Ordered lisinopril 40 mg oral tablet 1 tab, Oral, Daily, # 90 tab, 3 Refill(s), Pharmacy: [facility] [place] [id number] Start Date: 07/19/22 Status: Ordered LORazepam 1 mg oral tablet 1 mg = 1 tab, Oral, every 6 hr, PRN as needed for anxiety, # 15 tab, 1 Refill(s), Pharmacy: [place] [id number], 167, cm, 08/09/22 11:40:00 EDT, Height/Length Dosing, 130, kg, 08/09/22 11:40:00 EDT, Weight Dosing Start Date: 08/15/22 Stop Date: 08/23/22 Status: Ordered pantoprazole 40 mg oral delayed release tablet 40 mg = 1 tab, Oral, Daily, # 90 tab, 3 Refill(s), Pharmacy: [place] [id number] Start Date: 05/24/22 Stop Date: 05/19/23 Status: [...] DAYS, # 9 tab, 1 Refill(s), Pharmacy: [id number], 167, cm, 08/09/22 11:40:00 EDT, Height/John... Start Date: 08/15/22 Status: Ordered topiramate 100 mg oral tablet See Instructions, Take 1 tablet by mouth twice daily, # 180 tab, 3 Refill(s), Pharmacy: [id number] Start Date: 05/07/22 Status: Ordered Problem List Condition Confirmation Course Effective Dates Status H ealth Status Informant Allergic rhinitis Confirmed Active Allergic rhinitis due [...] Never tobacco user T obacco Use:. Sex Patient Care team information Care Team Personnel Name: Medardo Sargent DO Position: Physician Member Role: Primary Care Physician Address: Address: [address] [place] [phone] [place] Care Team Related Persons Name: GASPER LEDESMA Name: LEI BLACK
--- OUTSIDE RECORDS SUMMARY | 2024-01-13 19:01 | XMS_ITS | Encounter Summary ---
Author Organization [facility] [place] [address] Care Team Providers Care Project Engineer Name Role Phone None Primary Care Provider Unavailabl e Encounter Details Date Type Department Care Team (Late st Contact Info) Description 03/06/2010 [place] [id number] Cole Marie CNM [facility] OBSTETRICS & [place] [address] Social History Tobacco Use Types Packs/Day Years Used Date Smoking Tobacco: Never Assessed Sex and Gender Information Value Date Recorded Sex Assigned at Not on file Gender Identity Not on file Sexual Orientation Not on file documented as of this encounter Plan of Treatment Not on file documented as of this encounter Procedures Procedure Name Priority Date/Time Associated Diagnosis Comments URINE CULTURE Routine 03/06/2010 11:00 AM EST documented in this encounter Results * URINE CULTURE (03/06/2010 11:00 AM EST) Urine Culture ? Patient Name: CAMILA LEDESMA ?Ordered By: COLE MARIE ? MR#: [id number] ?LOC: ??5L ? /Sex: ??1985 (24 years), ? Female ? PROCEDURE: Urine Culture ?SOURCE: T CC ? COLLECTED: 03/06/2010 11:00 ? STARTED: 03/06/2010 11:22 ? FINAL REPORT ? Final Report ? Verified:02/18 10:31 ? Greater than 100,000 cfu/ml mixed mucosal isaias including Gram Negative ? organisms ? __ CERNER MILLENNIUM Urine specimen obtained by clean catch procedure (specimen) 03/06/2010 11:00 AM EST 03/06/2010 11:16 AM EST Cole Marie CNM MICROBIOLOGY - GENER AL ORDERABLES CERDAX TAYLORENNIUM documented in this encounter Visit Diagnoses Not on filedocumented in this encounter Care Teams Project Engineer Relationship Specialty Start Date End Date None None PCP - General 01/10/10 05/31/10 documented as of this encounter
--- OUTSIDE RECORDS SUMMARY | 2024-01-13 19:01 | XMS_ITS | Encounter Summary ---
[place] [address] Care Team Providers Care Inserting Operator Name Role Phone None Primary Care Provider Unavailabl e Encounter Details Date Type Department Care Team (Late st Contact Info) Description 03/20/2010 10:15 AM EST Procedure visit Obstetrics [place] [address] Social History Tobacco Use Types Packs/Day Years Used Date Smoking Tobacco: Never Assessed Sex and Gender Information Value Date Recorded Sex Assigned at Not on file Gender Identity Not on file Sexual Orientation Not on file documented as of this encounter Plan of Treatment Not on file documented as of this encounter Visit Diagnoses Not on filedocumented in this encounter Care Teams Inserting Operator Relationship Specialty Start Date End Date None None PCP - General 01/10/10 05/31/10 documented as of this encounter
--- OUTSIDE RECORDS SUMMARY | 2024-01-13 19:01 | XMS_ITS | Continuity of Care Document ---
Author Organization [facility] Ambulatory Clinics Address [address] [place] [address] Care Team Providers Care Teachers' Aide Name Role Phone Medardo Sargent DO Primary Care Physician Encounter [facility] NBR [id number] Date(s): 11/21/21 - 11/21/21 [facility] Ambulatory Clinics [address] [place], [place] [address] Discharge Disposition: Home or Self Care Attending Physician: Dion Maravilla DO Assessment and Plan Future Appointments Patient Care team information Personnel Name: Medardo Sargent DO Address: Address: [address] [place] [phone]
--- OUTSIDE RECORDS SUMMARY | 2024-01-13 19:01 | XMS_ITS | Encounter Summary ---
Author Organization [facility] [place] [address] Care Team Providers Care General Ledger Bookkeeper Name Role Phone None Primary Care Provider Unavailabl e Encounter Details Date Type Department Care Team (Latest Contact Info) Description 02/22/2010 1:50 PM EST - 02/22/2010 4:39 PM [facility] Hospital Encounter [facility] [place] [address] Ara Aranda MD [facility] DR OBSTETRICS & [place] [address] Discharge Disposition: Home Social History Tobacco Use [...] on filedocumented in this encounter Care Teams General Ledger Bookkeeper Relationship Specialty Start Date End Date None None PCP - General 01/10/10 05/31/10 documented as of this encounter
--- OUTSIDE RECORDS SUMMARY | 2024-01-13 19:01 | XMS_ITS | Continuity of Care Document ---
Author Organization [facility] Ambulatory Clinics Address [address] [place] [address] Care Team Providers Care Financial Institution President Name Role Phone Medardo Sargent DO Primary Care Physician [phone] Encounter [facility] NBR [id number] Date(s): 01/02/22 - 01/02/22 [facility] Ambulatory Clinics [address] [place] [address] Encounter Diagnosis Acute allergic rhinitis(Discharge Diagnosis) - 01/02/22 Discharge Disposition: Home or Self Care Attending Physician: Dion Maravilla DO Assessment and Plan Future Appointments Medications busPIRone 5 mg oral tablet 10 mg = 2 tab, Oral, TID, # 540 tab, 1 Refill(s), Pharmacy: [id number] Start Date: 12/05/21 Stop Date: 06/03/22 Status: Ordered lisinopril 40 mg oral tablet 1 tab, Oral, Daily, # 90 tab, 1 Refill(s), Pharmacy: [id number] Start Date: 11/26/21 Status: Ordered LORazepam 1 mg oral tablet 1 mg = 1 tab, Oral, every 6 hr, PRN as needed for anxiety, # 15 tab, 1 Refill(s), [id number] Start Date: 12/18/21 Stop Date: 12/26/21 Status: Ordered Problem List Condition Confirmation Course Effective Dates Status Health St atus Informant Allergic rhinitis due to pollen Confirmed Active Patient Care team information Personnel Name: Medardo Sargent DO Address: Address: [address] [place] [phone]
--- OUTSIDE RECORDS SUMMARY | 2024-01-13 19:01 | XMS_ITS | Continuity of Care Document ---
Author Organization [facility] Ambulatory Clinics Address [address] [place] [address] Care Team Providers Care Cesspool Cleaner Name Role Phone Medardo Sargent DO Primary Care Physician Encounter [facility] NBR [id number] Date(s): 01/09/22 - 01/09/22 [facility] Ambulatory Clinics [address] [place] [address] Encounter Diagnosis Allergic rhinitis due to pollen(Discharge Diagnosis) - 01/09/22 Discharge Disposition: Home or Self Care Attending Physician: Dion Maravilla DO Assessment and Plan Future Appointments Medications busPIRone 5 mg oral tablet 10 mg = 2 tab, Oral, TID, # 540 tab, 1 Refill(s), Pharmacy: [id number] Start Date: 12/05/21 Stop Date: 06/03/22 Status: Ordered lisinopril 40 mg oral tablet 1 tab, Oral, Daily, # 90 tab, 1 Refill(s), Pharmacy: [id number] Start Date: 11/26/21 Status: Ordered LORazepam 1 mg oral tablet 1 mg = 1 tab, Oral, every 6 hr, PRN as needed for anxiety, # 15 tab, 1 Refill(s), Pharmacy: [id number] Start Date: 12/18/21 Stop Date: 12/26/21 Status: Ordered Problem List Condition Confirmation Course Effective Dates Status Health St atus Informant Allergic rhinitis due to pollen Confirmed Active Patient Care team information Personnel Name: Medardo Sargent DO Address: Address: [address] [place] [phone] [place]
--- OUTSIDE RECORDS SUMMARY | 2024-01-13 19:01 | XMS_ITS | Encounter Summary ---
Author Organization [facility] [place] [address] Care Team Providers Care Monitor Tech Name Role Phone None Primary Care Provider Unavailabl e Encounter Details Date Type Department Care Team (Late st Contact Info) Description 01/02/2010 [place] [phone] Nasreen Colunga CNM [facility] OBSTETRICS & [place] [address] Social History Tobacco Use Types Packs/Day Years Used Date Smoking Tobacco: Never Assessed Sex and Gender Information Value Date Recorded Sex Assigned at Not on file Gender Identity Not on file Sexual Orientation Not on file documented as of this encounter Plan of Treatment Not on file documented as of this encounter Procedures Procedure Name Priority Date/Time Associated Diagnosis Comments GLUCOSE 1 HOUR POST PRANDIAL Routine 01/02/2010 1:34 PM EST HEMOGLOBIN AND HEMATOCRIT, BLOOD Routine 01/02/2010 1:34 PM EST documented in this encounter Results * GLUCOSE 1 HOUR POST PRANDIAL (01/02/2010 1:34 PM EST) Glucose Post Prandial, 1 Hour 112 mg/dL ROBBY CASTLE Blood specimen (specimen) 01/02/2010 1:34 PM EST 01/02/2010 1:54 PM EST Nasreen Colunga CNM CHEMISTRY ORDERABLE S ROBBY CASTLE * (ABNORMAL) HEMOGLOBIN AND HEMATOCRIT, BLOOD (01/02/2010 1:34 PM EST) Hemoglobin 10.5(L) 11.2 - 15.7 gm/dL CERDAX MILLENNIUM Hematocrit 32.4(L) 34.0 - 45.0 % SAVANADAX TAYLORENNIUM Blood specimen (specimen) 01/02/2010 1:34 PM EST 01/02/2010 1:54 PM EST Nasreen Colunga CNM HEMATOLOGY ORDERABL ES ROBBY CASTLE documented in this encounter Visit Diagnoses Not on filedocumented in this encounter Care Teams Monitor Tech Relationship Specialty Start Date End Date None None PCP - General 01/10/10 05/31/10 documented as of this encounter
--- OUTSIDE RECORDS SUMMARY | 2024-01-13 19:01 | XMS_ITS | Encounter Summary ---
Author Organization [facility] Address [address] [facility] [place] [address] Care Team Providers Care Log Data Technician Name Role Phone Amada Carson MD Primary Care Provider [phone] Encounter Details Date Type Department Care Team (Late st Contact Info) Description 06/07/2009 Interpretation Only Radiology [address] [facility] [place] [place] [address] Unknown None Social History Tobacco Use Types Packs/Day Years Used Date Smoking Tobacco: Never Assessed Sex and Gender Information Value Date Recorded Sex Assigned at Not on file Gender Identity Not on file Sexual Orientation Not on file documented as of this encounter Plan of Treatment Not on file documented as of this encounter Procedures Procedure Name Priority Date/Time Associated Diagnosis Comments CT SINUS W CONTRAST Routine 06/07/2009 1 2:03 PM EDT documented in this encounter Results * CT Sinus w Contrast (06/07/2009 12:03 PM EDT) Anatomical Region Laterality Modality Head Computed Tomogra phy 06/07/2009 12:0 3 PM EDT Narrative 06/07/2009 12:03 PM EDT APD Historical Result Principal Cloth Shrinking Tester: ??ELSIE ??JAG CT - SINUSES: Thin-section axial imaging was obtained through the paranasal sinuses. The study is performed in patient with sinusitis and right-sided face swelling. A root apical abscess is identified involving a tooth of the right maxilla. ??There is no obvious breach through the floor of the right maxillary sinus, but the area of bone erosion very closely approaches the right maxillary sinus. ??There is moderate mucosal thickening lining the right maxillary sinus. ??The left maxillary sinus is clear. ??The ethmoid air cells and frontal sinuses are clear. There is near complete opacification of the right-sided sphenoid air cell, with an air-fluid level. There is edema in the soft tissues of the right face. IMPRESSION: (1) Root apical abscess involving a right maxillary tooth with overlying right-sided maxillary sinusitis and soft tissue swelling of the right cheek. ??(2) Extensive acute sinusitis involving the right-sided sphenoid air cell. These findings were discussed with Dr. Carney in the emergency room at the time of dictation. Elsie Rm MD KG/ki [id number] CC: Procedure Note Unknown - 08/18/2018 APD Historical Result Principal Cloth Shrinking Tester: ELSIE RM CT - SINUSES: Thin-section axial imaging was obtained through the paranasal sinuses. Thestudy is performed in patient with sinusitis and right-sided face swelling. A root apical abscess is identified involving a tooth of the rightmaxilla. There is no obvious breach through the floor of the right maxillary sinus, but thearea of bone erosion very closely approaches the right maxillary sinus. There is moderate mucosalthickening lining the right maxillary sinus. The left maxillary sinus is clear. The ethmoid aircells and frontal sinuses are clear. There is near complete opacification of the right-sided sphenoid air cell,with an air-fluid level. There is edema in the soft tissues of the right face. IMPRESSION: (1) Root apical abscess involving a right maxillary tooth withoverlying right-sided maxillary sinusitis and soft tissue swelling of the rightcheek. (2) Extensive acute sinusitis involving the right-sided sphenoid air cell. These findings were discussed with Dr. Carney in the emergency room at thetime of dictation. Elsie Rm MD KG/ki [id number] CC: Unknown IMG CT ORDERABLES documented in this encounter Visit Diagnoses Not on filedocumented in this encounter Care Teams Log Data Technician Relationship Specialty Start Date End Date Amada Carson MD [address] [facility] [place] [address] PCP - General 06/09/18 08/27/18 documented as of this encounter
--- OUTSIDE RECORDS SUMMARY | 2024-01-13 19:01 | XMS_ITS | Continuity of Care Document ---
Author Organization [facility] Ambulatory Clinics Address [address] [place] [address] Care Team Providers Care Massotherapist Name Role Phone Medardo Sargent DO Primary Care Physician [phone] Encounter [facility] NBR [id number] Date(s): 01/30/22 - 01/30/22 [facility] Ambulatory Clinics [address] [place] [email or web address] Discharge Disposition: Home or Self Care Assessment and Plan Future Appointments Medications busPIRone 5 mg oral tablet 10 mg = 2 tab, Oral, TID, # 540 tab, 1 Refill(s), Pharmacy: [id number] Start Date: 12/05/21 Stop Date: 06/03/22 Status: Ordered lisinopril 40 mg oral tablet 1 tab, Oral, Daily, # 90 tab, 1 Refill(s), Pharmacy: [id number] Start Date: 11/26/21 Status: Ordered LORazepam 1 mg oral tablet 1 mg = 1 tab, Oral, every 6 hr, PRN as needed for anxiety, # 15 tab, 1 Refill(s), Pharmacy: [id number] Start Date: 12/18/21 Stop Date: 12/26/21 Status: Ordered Problem List Condition Confirmation Course Effective Dates Status Health St atus Informant Allergic rhinitis due to pollen Confirmed Active Patient Care team information Personnel Name: Medardo Sargent DO Address: Address: [address] [place] [phone]
--- OUTSIDE RECORDS SUMMARY | 2024-01-13 19:01 | XMS_ITS | Encounter Summary ---
Author Organization [facility] [place] [address] Care Team Providers Care Precision Lens Centerer And Edger Name Role Phone None Primary Care Provider Unavailabl e Encounter Details Date Type Department Care Team (Late st Contact Info) Description 12/01/2009 [place] [phone] Gabrielle Ricardo [facility] OBSTETRICS & [place] [address] Social History Tobacco Use Types Packs/Day Years Used Date Smoking Tobacco: Never Assessed Sex and Gender Information Value Date Recorded Sex Assigned at Not on file Gender Identity Not on file Sexual Orientation Not on file documented as of this encounter Plan of Treatment Not on file documented as of this encounter Procedures Procedure Name Priority Date/Time Associated Diagnosis Comments URINE CULTURE Routine 12/01/2009 3:00 PM EDT documented in this encounter Results * URINE CULTURE (12/01/2009 3:00 PM EDT) Urine Culture ? Patient Name: CAMILA LEDESMA ?Ordered By: GABRIELLE RICARDO ? MR#: [id number] ?LOC: ??5L ? /Sex: ??1985 (23 years), ? Female ? PROCEDURE: Urine Culture ?SOURCE: T CC ? COLLECTED: 12/01/2009 15:00 ? STARTED: 12/01/2009 16:59 ? FINAL REPORT ? Final Report ? Verified:11/18 15:20 ? 1,000-9,000 cfu/ml mixed Gram Negative and Positive organisms ? __ CERNER MILLENNIUM Urine specimen obtained by clean catch procedure (specimen) 12/01/2009 3:00 PM EDT 12/01/2009 4:37 PM EDT Gabrielle Ricardo CNM MICROBIOLOGY - GENE RAL ORDERABLES ROBBY CASTLE documented in this encounter Visit Diagnoses Not on filedocumented in this encounter Care Teams Precision Lens Centerer And Edger Relationship Specialty Start Date End Date None None PCP - General 01/10/10 05/31/10 documented as of this encounter
--- OUTSIDE RECORDS SUMMARY | 2024-01-13 19:01 | XMS_ITS | Continuity of Care Document ---
Author Organization [facility] Ambulatory Clinics Address [address] [place] [address] Care Team Providers Care Automation Engineering Manager Name Role Phone Medardo Sargent DO Primary Care Physician [phone] Encounter [facility] NBR [id number] Date(s): 08/09/22 - 08/09/22 [facility] Ambulatory Clinics [address] [place] [address]- Encounter Diagnosis Seizure(Discharge Diagnosis) - 08/09/22 Right ear pain(Discharge Diagnosis) - 08/09/22 Hemicrania continua(Discharge Diagnosis) - 08/09/22 Discharge Disposition: Home or [...] daily, # 90 tab, 3 Refill(s), Pharmacy: [id number] Start Date: 07/09/22 Status: Ordered fluticasone 50 mcg/inh nasal spray 2 sprays, Nasal, Daily, # 16 g, 5 Refill(s), Pharmacy: [id number] Start Date: 03/19/22 Status: [...] Daily, # 90 tab, 3 Refill(s), Pharmacy: [id number] Start Date: 07/19/22 Status: Ordered LORazepam 1 mg oral tablet 1 mg = 1 tab, Oral, every 6 hr, PRN as needed for anxiety, # 15 tab, 1 Refill(s), Pharmacy: [facility] 4389 Start Date: 06/18/22 Stop Date: 06/26/22 Status: Ordered pantoprazole 40 mg oral delayed release tablet 40 mg = 1 tab, Oral, Daily, # 90 tab, 3 Refill(s), Pharmacy: [id number] Start Date: 05/24/22 Stop [...] daily, # 180 tab, 3 Refill(s), Pharmacy: [id number] Start Date: 05/07/22 [...] Temperature Temporal Artery [36-38 Deg C ] 36.6 Deg C (08/09/22 10:44 AM) Peripheral Pulse Rate [60-100 bpm] 82 bp m (08/09/22 10:44 AM) Blood Pressure [90-140/60-90 mmHg] 90/60 mmHg (08/09/22 10:44 AM) Weight 130.9 kg (08/09/22 10:44 AM) Weight Measured (lbs) 288.585 lb (08/09/22 10:44 AM) [place] Body Weight Calculated 58.72 kg (08/09/22 10:44 AM) Height 167 cm (08/09/22 10:44 AM) Height/Length Measured (inches) 65.75 in ch (08/09/22 10:44 AM) BSA Measured 2.46 m2 (08/09/22 10:44 AM) Body Mass Index 46.94 kg/m2 (08/09/22 10:44 AM) Social History Social History Type Response Tobacco Never tobacco user T obacco Use:. Sex Physician Outpatient Note * Stefany Hopkins MD: PERFORM Event Display: Office Clinic Note Physician Authored Date: [id number] BALTAZARCAMILA DAVIES [place] :1985 Age:36 years Sex:Female Visit Date:08/09/2022 Primary Care Physician: Medardo Sargent DO Chief Complaint right ear pain, not feeling well History of Present Illness Presents for same-day visit for severe right ear pain. She was previously seen in office??07/24 for possible sinus infection (she has a history of these). Completed Augmentin x10 days, felt like she was doing okay until ~3 days ago when she started to feelunwell. Having massive headache that I can't shake despite taking her migraine medications. Fatigue, difficulty staying awake, overall feeling unwell, lightheaded, disoriented/confused.??Right ear pain has been severe during this time, and feels different than her usual sinus infections or headaches. She notes she is allergic to everything under the sun. She has been sleeping much more than usual, if I hadn't needed to be seen so much today, I would still be in bed. She left her children with a neighbor and told them she was volunteering in order to come keep the appointment today. 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 ?? At 11:17AM, during her visit with me, she??said that she was not at all feeling well and requested to lie down on the exam table. She was able to lie down onto her left side without assistance, and approximately 30 seconds later she became unresponsive with stuttering speech and drooling and repetitive shaking movements of the whole body. The shaking lasted ~90 seconds, during which she was not verbally responsive, and a rapid response was called. She then remained somnolent/post-ictal untilbeing transported to the ER at approximately 11:30AM. Review of Systems as per HPI Physical Exam Vitals & Measurements T:??36.6?C ??(Temporal Artery)?? HR:??82??(Peripheral)?? BP:??90/60?? SpO2:??98%?? HT:??167??cm?? WT:??130.9??kg?? BMI:??46.94?? BSA:??2.46?? General: exam changed throughout today's visit - initially was awake, alert, responsive, but in obvious distress. Had a seizure witnessed by me during the visit lasting ~90-120 seconds, and was post-ictal thereafter. Seizure involved her not feeling well and asking to lie down (which she was able to do), then losing consciousness/responsiveness, displaying stuttering speech and drooling, followedby generalized shaking of all four extremities lasting approximately 90 seconds, after which she was somnolent and remained minimally responsive while the rapid response team transported her to the emergency room. Eyes: conjunctivae??Clear ENT:??tympanic membranes??Normal, ear canal??Normal, nares??Clear, pharynx??Clear, frontal sinus??Tenderness on Right, maxillary sinus??Tenderness on Right??(she states this is at baseline during allergy season). Neck:??Negative??anterior cervical adenopathy,??Negative??posterior cervical adenopathy. Cardiovascular:??Regular??rate and rhythm,??Normal??peripheral perfusion. Respiratory: Lungs??Clear to Auscultation, respirations??Non-Labored. 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 her initial described symptoms sound like a recurrence (now right-sided, from previous left-sided involvement), however this is concerning as it would be her first recurrence since her prior surgery in 12/2020 she was transferred to ER due to her seizure, but should have neurosurgery evaluation as soon as possible 3.??Right ear pain??H92.01 TM normal, not otitis media, likely a reflection of hemicrania Problem List/Past Medical History Ongoing Acute pansinusitis Allergic rhinitis Allergic rhinitis Allergic rhinitis due to pollen Anxiety Body mass index 40+ - severely obese Chronic frontal sinusitis Chronic maxillary sinusitis Chronic rhinitis 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 section???Dilation and curettage???Surgery???Surgery???Tubal ligation Medications busPIRone 5 mg oral tablet, 2 tab, Oral, TID citalopram 40 mg oral [...] and Father. Hypertension: Father. Electronically Signed on 08/09/22 11:45 AM Stefany Hopkins MD Patient Care team information Care Team Personnel Name: Medardo Sargent DO Position: Physician Member Role: Primary Care Physician Address: Address: [address] [place] [phone] [place] Care Team Related Persons Name: GASPER LEDESMA Name: LEI BLACK
--- OUTSIDE RECORDS SUMMARY | 2024-01-13 19:01 | XMS_ITS | Encounter Summary ---
[place] [address] Care Team Providers Care Product Development Manager Name Role Phone None Primary Care Provider Unavailabl e Encounter Details Date Type Department Care Team (Late st Contact Info) Description 02/13/2010 11:00 AM EST Procedure visit [place] [address] Social History Tobacco Use Types Packs/Day Years Used Date Smoking Tobacco: Never Assessed Sex and Gender Information Value Date Recorded Sex Assigned at Not on file Gender Identity Not on file Sexual Orientation Not on file documented as of this encounter Plan of Treatment Not on file documented as of this encounter Visit Diagnoses Not on filedocumented in this encounter Care Teams Product Development Manager Relationship Specialty Start Date End Date None None PCP - General 01/10/10 05/31/10 documented as of this encounter
--- OUTSIDE RECORDS SUMMARY | 2024-01-13 19:01 | XMS_ITS | Encounter Summary ---
[place] [address] Care Team Providers Care Fashion Director Name Role Phone Unavailable Primary Care Provider Unavailabl e Encounter Details Date Type Department Care Team (Late st Contact Info) Description 01/02/2010 2:00 PM EST Routine Obstetrics [place] [address] Anay Still, [facility] [address] [facility] [place] [address] Social History Tobacco Use Types Packs/Day Years [...]
--- OUTSIDE RECORDS SUMMARY | 2024-01-13 19:01 | XMS_ITS | Continuity of Care Document ---
Author Organization [facility] Ambulatory Clinics Address [address] [place] [address] Care Team Providers Care Instructional Developer Name Role Phone Medardo Sargent DO Primary Care Physician [phone] Encounter [facility] FIN NBR [id number] Date(s): 02/27/22 - 02/27/22 [facility] Ambulatory Clinics [address] [place], [place] [address] Encounter Diagnosis Allergic rhinitis(Discharge Diagnosis) - 02/27/22 Discharge Disposition: Home or Self Care Attending Physician: Dion Maravilla DO Allergies, Adverse Reactions, Alerts Substance Reaction Severity Status acetaminophen-oxycodone palpitations Severe Acti ve Emgality 1 Headache Moderate Active 1300 MG dose, worsening headaches. Assessment and Plan Future Appointments Medications !-Augmentin 875 mg-125 mg oral tablet 1 tab, Oral, every 12 hr, # 20 tab, 0 Refill(s), Pharmacy: [id number] Start Date: 02/20/22 Stop Date: 03/02/22 Status: Ordered busPIRone 5 mg oral tablet 10 mg = 2 tab, Oral, TID, # 540 tab, 1 Refill(s), Pharmacy: [facility] Start Date: 12/05/21 Stop Date: 06/03/22 Status: Ordered citalopram 40 mg oral tablet 90 EA, TAKE 1 TABLET BY MOUTH ONCE DAILY, 0 Refill(s) Start Date: 02/15/22 Status: Ordered fluticasone 50 mcg/inh nasal spray 16 g, USE 2 SPRAY(S) IN EACH NOSTRIL ONCE DAILY, 0 Refill(s) Start Date: 02/15/22 Status: Ordered levETIRAcetam 1000 mg oral tablet 180 EA, TAKE 1 TABLET BY MOUTH EVERY 12 HOURS, 0 Refill(s) Start Date: 02/15/22 Status: Ordered lisinopril 40 mg oral tablet 1 tab, Oral, Daily, # 90 tab, 1 Refill(s), [id number] Start Date: 11/26/21 Status: Ordered LORazepam 1 mg oral tablet 1 mg = 1 tab, Oral, every 6 hr, PRN as needed for anxiety, # 15 tab, 1 Refill(s), Pharmacy: [facility] [id number] Start Date: 12/18/21 Stop Date: 12/26/21 Status: Ordered pantoprazole 40 mg oral delayed release tablet 90 EA, TAKE 1 TABLET BY MOUTH ONCE DAILY, 0 Refill(s) Start Date: 02/15/22 Status: Ordered pyridoxine 100 mg oral tablet [...] Status: Ordered topiramate 100 mg oral tablet 180 EA, TAKE 1 TABLET BY MOUTH TWICE DAILY, 0 Refill(s) Start Date: 02/15/22 Status: Ordered Problem List Condition Confirmation Course [...] Seizure Confirmed Active Severe obesity Confirmed Active Social History Social History Type Response Tobacco Never tobacco user T obacco Use:. Sex Patient Care team information Personnel Name: Medardo Sargent DO Address: Address: [address] [place] [phone]
--- OUTSIDE RECORDS SUMMARY | 2024-01-13 19:01 | XMS_ITS | Encounter Summary ---
Author Organization [facility] [place] [address] Care Team Providers Care Production Control Pegboard Clerk Name Role Phone None Primary Care Provider Unavailabl e Encounter Details Date Type Department Care Team (Late st Contact Info) Description 03/13/2010 2:40 PM EST Office Visit Obstetrics [place] [address] Lory Damon, [facility] [address] OBSTETRICS [place] [address] Discharge Disposition: Home Social History Tobacco Use [...] on filedocumented in this encounter Care Teams Production Control Pegboard Clerk Relationship Specialty Start Date End Date None None PCP - General 01/10/10 05/31/10 documented as of this encounter
--- OUTSIDE RECORDS SUMMARY | 2024-01-13 19:01 | XMS_ITS | Encounter Summary ---
Author Organization [facility] [place] [address] Care Team Providers Care Machine Cementer And Folder Name Role Phone None Primary Care Provider Unavailabl e Encounter Details Date Type Department Care Team (Late st Contact Info) Description 02/07/2010 [place] [id number] Judith Nation, [facility] [address] OBSTETRICS [place] [address] Social History Tobacco Use Types Packs/Day Years Used Date Smoking Tobacco: Never Assessed Sex and Gender Information Value Date Recorded Sex Assigned at Not on file Gender Identity Not on file Sexual Orientation Not on file documented as of this encounter Plan of Treatment Not on file documented as of this encounter Procedures Procedure Name Priority Date/Time Associated Diagnosis Comments DIFFERENTIAL, AUTOMATED Routine 02/08/20 10 4:36 PM EST CREATININE Routine 02/07/2010 4:36 PM EST CBC (WITH DIFF) Routine 02/07/2010 4:36 PM EST ASPARTATE AMINOTRANSFERASE Routine 02/07/2010 4:36 PM EST YEAST CULTURE Routine 02/07/2010 4:33 PM EST POCT GLUCOSE Routine 02/07/2010 3:33 PM EST URINE CULTURE Routine 02/07/2010 3:00 PM EST documented in this encounter Results * (ABNORMAL) CREATININE, SERUM (02/07/2010 4:36 PM EST) Creatinine 0.44(L) 0.70 - 1.20 mg/dL [facility] Est Glomerular Filtration Rate >60 >=60 [facility] Comment: The National Kidney Disease Education Program [...] disease. References: http://nkdep.nih.gov/resources/NKDEP_Suggestn4Labs_0606_508.pdf http://www.kidney.org/professionals/kls/pdf/faq_gfr.pdf Blood specimen (specimen) 02/07/2010 4:36 PM EST 02/07/2010 4:50 PM EST Judith White CNPalma CHEMISTRY ORDER APOLLO [facility] * ASPARTATE AMINOTRANSFERASE (02/07/2010 4:36 PM EST) Aspartate Aminotransferase 13 0 - 30 unit/L [facility] Blood specimen (specimen) 02/07/2010 4:36 PM EST 02/07/2010 4:50 PM EST Judith White CNM CHEMISTRY ORDER APOLLO [facility]ILLENNI[facility] * (ABNORMAL) REFLEX LAB-A-DIFF (02/07/2010 4:36 PM EST) Neutrophil % 71.5(H) 34.0 - 71.0 % CERNER MILLENNIUM Neutrophil Absolute 7.95(H) 1.50 - 6.30 x10(3)/mc L CERNER MILLENNIUM Lymph % 21.7 19.0 - 53.0 % CERNER MILLENNIUM Lymphocytes Abs 2.4 1.0 - 3.6 x10(3)/mc L CERNER MILLENNIUM Monocyte % 5.8 4.0 - 13.0 % CERNER MILLENNIUM Monocyte Abs 0.6 0.2 - 1.0 x10(3)/mc L CERNER MILLENNIUM Eos % 0.5 0.0 - 7.0 % CERNER MILLENNIUM Eosinophils Abs 0.1 0.0 - 0.5 x10(3)/mc L CERNER MILLENNIUM Basophil % 0.2 0.0 - 2.0 % CERNER MILLENNIUM Baso Absolute 0.0 0.0 - 0.2 x10(3)/mc L CERNER MILLENNIUM Immature Gran % 0.30 0.00 - 0.66 % [facility] Comment: Immature granulocytes(IG's)percentage and absolute count will include metamyelocytes, myelocytes, and promyelocytes. Blood smears from CBC's yielding IG's will be scanned manually for concordance. If this scan disagrees with the automated IG or if promyelocytes are noted, a manual differential will be performed. Immature Gran Absolute 0.03 0.00 - 0.05 x10(3)/mc L CERNER MILLENNIUM Blood specimen (specimen) 02/07/2010 4:36 PM EST 02/07/2010 4:50 PM EST Judith White CNM HEMATOLOGY ORDE RABLES [facility] TAYLORENNIUM * (ABNORMAL) CBC (02/07/2010 4:36 PM EST) White Blood Cell 11.1(H) 4.0 - 10.0 x10(3)/mc L CERNER MILLENNIUM Red Blood Cell 3.68(L) 3.93 - 5.22 x10(6)/mc L CERNER MILLENNIUM Hemoglobin 10.5(L) 11.2 - 15.7 gm/dL CERNER MILLENNIUM Hematocrit 32.4(L) 34.0 - 45.0 % CERNER MILLENNIUM Mean Cell Volume 88.0 79.0 - 94.0 fL CERNER MILLENNIUM Mean Cell Hemoglobin 28.5 26.6 - 32.2 pg CERNER MILLENNIUM Mean Cell Hemoglobin Concentration 32.4 32.0 - 36.5 gm/dL CERNER MILLENNIUM Platelet 186 145 - 370 x10(3)/mc L CERNER MILLENNIUM RDW Standard Deviation 43.9 35.0 - 46.0 fL CERNER MILLENNIUM RDW coefficient of variation 13.7 10.9 - 14.4 % CERNER MILLENNIUM Mean Platelet Volume 9.6 9.0 - 12.0 fL CERN[facility] MILLENNIUM Blood specimen (specimen) 02/07/2010 4:36 PM EST 02/07/2010 4:50 PM EST Judith ZABALA HEMATOLOGY NGAE JONATHAN Performing Organization Address City/State/[facility] Co de Phone Number [facility] * YEAST CULTURE (02/07/2010 4:33 PM EST) Yeast Culture ? Patient Name: CAMILA LEDESMA ?Ordered By: JUDITH WHITE ? MR#: [id number] ?LOC: ??5L ? /Sex: ??1985 (24 years), ? Female ? PROCEDURE: Yeast Culture ?SOURCE: Other ? COLLECTED: 02/07/2010 16:33 ?FREE TEXT SOURCE: abdomen skin fold ? STARTED: 02/07/2010 17:29 ? FINAL REPORT ? Final Report ? Verified:02/27/19 11 13:13 ? Rare Trichophyton tonsurans ? PRELIMINARY REPORT ? Preliminary Report ? Verified:02/20/19 11 10:07 ? Rare possible Dermatophytes ? [facility] Specimen of unknown material (specimen) 02/07/2010 4:33 PM EST 02/07/2010 4:33 PM EST Comment:ABDOMEN SKIN FOLD Judith White CNM MICROBIOLOGY - GENERAL ORDERABLES Performing Organization Address [facility] de Phone Number [facility] * POCT GLUCOMETER ORDER (LAB USE ONLY) (02/07/2010 3:33 PM EST) Glucose, POC 79 70 - 110 mg/dL [facility] Comment: Supplemental ranges: <110 mg/dL before meals <200 mg/dL all other times of the day Blood specimen (specimen) 02/07/2010 3:33 PM EST 02/07/2010 3:33 PM EST Judith White CNM POINT OF CARE T EST ORDERABLES Performing Organization Address [facility] de Phone Number [facility] * URINE CULTURE (02/07/2010 3:00 PM EST) Urine Culture ? Patient Name: CAMILA LEDESMA ?Ordered By: JUDITH WHITE ? MR#: [id number] ?LOC: ??5L ? /Sex: ??1985 (24 years), ? Female ? PROCEDURE: Urine Culture ?SOURCE: T CC ? COLLECTED: 02/07/2010 15:00 ? STARTED: 02/07/2010 16:08 ? FINAL REPORT ? Final Report ? Verified:01/19 15:35 ? 50,000-99,000 cfu/ml mixed mucosal isaias ? 1,000-9,000 cfu/ml Gram Negative Rods ? __ CERNER MILLENNIUM Urine specimen obtained by clean catch procedure (specimen) 02/07/2010 3:00 PM EST 02/07/2010 3:43 PM EST Judith White CNM MICROBIOLOGY - GENERAL ORDERABLES ROBBY TAYLORENNIUM documented in this encounter Visit Diagnoses Not on filedocumented in this encounter Care Teams Machine Cementer And Folder Relationship Specialty Start Date End Date None None PCP - General 01/10/10 05/31/10 documented as of this encounter
--- OUTSIDE RECORDS SUMMARY | 2024-01-13 19:01 | XMS_ITS | Continuity of Care Document ---
Author Organization [facility] Ambulatory Clinics Address [address] [place] [address] Care Team Providers Care Refrigeration Systems Installer Name Role Phone Medardo Sargent DO Primary Care Physician [phone] Encounter [facility] FIN NBR [id number] Date(s): 07/17/22 - 07/17/22 [facility] Ambulatory Clinics [address] [place], [place] [address] Encounter Diagnosis Allergic rhinitis(Discharge Diagnosis) - 07/17/22 Discharge Disposition: Home or Self Care Attending Physician: Dion Maravilla DO Allergies, Adverse Reactions, Alerts Substance Reaction Severity Status acetaminophen-oxycodone palpitations Severe Acti ve Emgality 1 Headache Moderate Active 1300 MG dose, worsening headaches. Assessment and Plan Future Appointments Medications !-Augmentin 875 mg-125 mg oral tablet 1 tab, Oral, every 12 hr, # 20 tab, 0 Refill(s), Pharmacy: [id number] Start Date: 02/20/22 Stop Date: 03/02/22 Status: Ordered busPIRone 5 mg oral tablet 10 mg = 2 tab, Oral, TID, # 540 tab, 1 Refill(s), Pharmacy: [id number] Start Date: 12/05/21 Stop Date: 06/03/22 Status: Ordered citalopram 40 mg oral tablet See Instructions, Take 1 tablet by mouth once daily, # 90 tab, 3 Refill(s), Pharmacy: [id number] Start Date: 07/09/22 Status: Ordered fluticasone 50 mcg/inh nasal spray 2 sprays, Nasal, Daily, # 16 g, 5 Refill(s), Pharmacy: [id number] Start Date: 03/19/22 Status: Ordered levETIRAcetam 1000 mg oral tablet 180 EA, TAKE 1 TABLET BY MOUTH EVERY 12 HOURS, 0 Refill(s) Start Date: 02/15/22 Status: Ordered lisinopril 40 mg oral tablet 1 tab, Oral, Daily, # 90 tab, 1 Refill(s), Pharmacy: [id number] Start Date: 11/26/21 Status: Ordered LORazepam 1 mg oral tablet 1 mg = 1 tab, Oral, every 6 hr, PRN as needed for anxiety, # 15 tab, 1 Refill(s), [facility] Start Date: 06/18/22 Stop Date: 06/26/22 Status: Ordered pantoprazole 40 mg oral delayed release tablet 40 mg = 1 tab, Oral, Daily, # 90 tab, 3 Refill(s), Pharmacy: [id number] Start Date: 05/24/22 Stop Date: [...] daily, # 180 tab, 3 Refill(s), Pharmacy: [id number] Start Date: 05/07/22 [...] Member Role: Primary Care Physician Address: Address: [address] [place] [phone] [place] Care Team Related Persons Name: GASPER LEDESMA Name: LEI BLACK
--- OUTSIDE RECORDS SUMMARY | 2024-01-13 19:01 | XMS_ITS | Encounter Summary ---
[place] [address] Care Team Providers Care Retail Warehouse Associate Name Role Phone None Primary Care Provider Unavailabl e Encounter Details Date Type Department Care Team (Late st Contact Info) Description 03/06/2010 10:00 AM EST Procedure visit [place] [address] Social History Tobacco Use Types Packs/Day Years Used Date Smoking Tobacco: Never Assessed Sex and Gender Information Value Date Recorded Sex Assigned at Not on file Gender Identity Not on file Sexual Orientation Not on file documented as of this encounter Plan of Treatment Not on file documented as of this encounter Visit Diagnoses Not on filedocumented in this encounter Care Teams Retail Warehouse Associate Relationship Specialty Start Date End Date None None PCP - General 01/10/10 05/31/10 documented as of this encounter
--- OUTSIDE RECORDS SUMMARY | 2024-01-13 19:01 | XMS_ITS | Encounter Summary ---
Author Organization [facility] [place] [address] Care Team Providers Care High Density Talc Coater Operator Name Role Phone None Primary Care Provider Unavailabl e Encounter Details Date Type Department Care Team (Latest Contact Info) Description 02/07/2010 3:00 PM EST Routine Obstetrics [place] [address] Iman Nation, [facility] [address] OBSTETRICS & [place] [address] Discharge Disposition: Home Social History Tobacco Use [...] filedocumented in this encounter Care Teams High Density Talc Coater Operator Relationship Specialty Start Date End Date None None PCP - General 01/10/10 05/31/10 documented as of this encounter
--- OUTSIDE RECORDS SUMMARY | 2024-01-13 19:01 | XMS_ITS | Continuity of Care Document ---
Author Organization [facility] Ambulatory Clinics Address [address] [place] [address] Care Team Providers Care Cloth Packer Name Role Phone Medardo Sargent DO Primary Care Physician [phone] Encounter [facility] FIN NBR [id number] Date(s): 09/11/22 - 09/11/22 [facility] Ambulatory Clinics [address] [place] [address]- Encounter Diagnosis Allergic rhinitis(Discharge Diagnosis) - 09/11/22 Discharge Disposition: Home or Self Care Attending [...] daily, # 90 tab, 3 Refill(s), Pharmacy: [id number] Start Date: 07/09/22 Status: Ordered fluticasone 50 mcg/inh nasal spray 2 sprays, Nasal, Daily, # 16 g, 5 Refill(s), Pharmacy: [facility] [id number] Start Date: 03/19/22 Status: Ordered levETIRAcetam 1000 mg oral tablet 1 tab, Oral, every night at bedtime, # 90 tab, 0 Refill(s), Pharmacy: [facility] [id number], 167, cm, 08/09/22 11:40:00 EDT, Height/Length Dosing, 130, kg, 08/09/22 11:40:00 EDT, Weight Dosing Start Date: 08/17/22 Status: Ordered levETIRAcetam 500 mg oral tablet 500 mg = 1 tab, Oral, every morning, # 90 tab, 1 Refill(s), Pharmacy: [facility] [id number], 167, cm, 08/09/22 11:40:00 EDT, Height/Length Dosing, 130, kg, 08/09/22 11:40:00 EDT, Weight Dosing Start Date: 08/17/22 Status: Ordered lisinopril 40 mg oral tablet 1 tab, Oral, Daily, # 90 tab, 3 Refill(s), Pharmacy: [facility] [id number] Start Date: 07/19/22 Status: Ordered LORazepam 1 mg oral tablet 1 mg = 1 tab, Oral, every 6 hr, PRN as needed for anxiety, # 15 tab, 1 Refill(s), Pharmacy: [facility] [id number], 167, cm, 08/09/22 11:40:00 EDT, Height/Length Dosing, 130, kg, 08/09/22 11:40:00 EDT, Weight Dosing Start Date: 08/15/22 Stop Date: 08/23/22 Status: Ordered pantoprazole 40 mg oral delayed release tablet 40 mg = 1 tab, Oral, Daily, # 90 tab, 3 Refill(s), Pharmacy: [facility] [id number] Start Date: 05/24/22 Stop Date: 05/19/23 Status: Ordered pyridoxine 100 mg oral tablet 100 mg = 1 tab, Oral, Daily, # 90 tab, 0 Refill(s) Start Date: 12/29/22 Stop Date: 05/16/22 Status: Ordered SUMAtriptan 100 mg oral tablet 100 mg = 1 tab, Oral, Once, 9 EA, TAKE 1 TABLET BY MOUTH EVERY 24 HOURS NEEDED FOR HEADACHE - MAY REPEAT AFTER 2 HOURS - USE A DIRECTED - FOR 30 DAYS, # 9 tab, 1 Refill(s), Pharmacy: [id number], 167, cm, 08/09/22 11:40:00 EDT, Height/John... Start Date: 08/15/22 Status: Ordered topiramate 100 mg oral tablet See Instructions, Take 1 tablet by mouth twice daily, # 180 tab, 3 Refill(s), Pharmacy: [id number] Start Date: 05/07/22 Status: [...] Member Role: Primary Care Physician Address: Address: [address] [place] [phone] [place] Care Team Related Persons Name: GASPER LEDESMA Name: LEI BLACK
--- OUTSIDE RECORDS SUMMARY | 2024-01-13 19:01 | XMS_ITS | Encounter Summary ---
[place] [address] Care Team Providers Care Compensation Consulting Manager Name Role Phone None Primary Care Provider Unavailabl e Encounter Details Date Type Department Care Team (Late st Contact Info) Description 02/06/2010 12:45 PM EST Procedure visit [place] [address] Social History Tobacco Use Types Packs/Day Years Used Date Smoking Tobacco: Never Assessed Sex and Gender Information Value Date Recorded Sex Assigned at Not on file Gender Identity Not on file Sexual Orientation Not on file documented as of this encounter Plan of Treatment Not on file documented as of this encounter Visit Diagnoses Not on filedocumented in this encounter Care Teams Compensation Consulting Manager Relationship Specialty Start Date End Date None None PCP - General 01/10/10 05/31/10 documented as of this encounter
--- OUTSIDE RECORDS SUMMARY | 2024-01-13 19:01 | XMS_ITS | Continuity of Care Document ---
Author Organization [facility] Ambulatory Clinics Address [address] [place] [address] Care Team Providers Care Crystal Flat Grinder Name Role Phone Medardo Sargent DO Primary Care Physician Encounter [facility] FIN NBR [id number] Date(s): 06/05/22 - 06/05/22 [facility] Ambulatory Clinics [address] [place], [place] [address] Encounter Diagnosis Allergic rhinitis(Discharge Diagnosis) - 06/05/22 Discharge Disposition: Home or Self Care Attending Physician: Dion Maravilla DO Allergies, Adverse Reactions, Alerts Substance Reaction Severity Status acetaminophen-oxycodone palpitations Severe Acti ve Emgality 1 Headache Moderate Active 1300 MG dose, worsening headaches. Assessment and Plan Future Appointments Medications !-Augmentin 875 mg-125 mg oral tablet 1 tab, Oral, every 12 hr, # 20 tab, 0 Refill(s), Pharmacy: [id number] Start Date: 02/20/22 Stop Date: 03/02/22 Status: Ordered busPIRone 5 mg oral tablet 10 mg = 2 tab, Oral, TID, # 540 tab, 1 Refill(s), [facility] Start Date: 12/05/21 Stop Date: 06/03/22 Status: Ordered citalopram 40 mg oral tablet 90 EA, TAKE 1 TABLET BY MOUTH ONCE DAILY, 0 Refill(s) Start Date: 02/15/22 Status: Ordered fluticasone 50 mcg/inh nasal spray 2 sprays, Nasal, Daily, # 16 g, 5 Refill(s), Pharmacy: [id number] Start Date: 03/19/22 Status: Ordered levETIRAcetam 1000 mg oral tablet 180 EA, TAKE 1 TABLET BY MOUTH EVERY 12 HOURS, 0 Refill(s) Start Date: 02/15/22 Status: Ordered lisinopril 40 mg oral tablet 1 tab, Oral, Daily, # 90 tab, 1 Refill(s), Pharmacy: [id number] Start Date: 11/26/21 Status: Ordered LORazepam 1 mg oral tablet 1 mg = 1 tab, Oral, every 6 hr, PRN as needed for anxiety, # 15 tab, 1 Refill(s), [facility] Start Date: 12/18/21 Stop Date: 12/26/21 Status: Ordered pantoprazole 40 mg oral delayed release tablet 40 mg = 1 tab, Oral, Daily, # 90 tab, 3 Refill(s), Pharmacy: [id number] Start Date: 05/24/22 Stop Date: [...] 180 tab, 3 Refill(s), Pharmacy: [id number] Start Date: 05/07/22 Status: Ordered [...] Member Role: Primary Care Physician Address: Address: [address] [place] [phone] [place] Care Team Related Persons Name: GASPER LEDESMA Name: LEI BLACK
--- OUTSIDE RECORDS SUMMARY | 2024-01-13 19:01 | XMS_ITS | Continuity of Care Document ---
Author Organization [facility] Ambulatory Clinics Address [address] [place] [address] Care Team Providers Care Bilingual Customer Service Name Role Phone Medardo Sargent DO Primary Care Physician Encounter [facility] NBR [id number] Date(s): 07/31/22 - 07/31/22 [facility] Ambulatory Clinics [address] [place] [address]- Discharge Disposition: Home or Self Care Allergies, Adverse Reactions, Alerts Substance Reaction Severity Status acetaminophen-oxycodone palpitations Severe Acti ve Emgality 1 Headache Moderate Active 1300 MG dose, worsening headaches. Medications !-Augmentin 875 mg-125 mg oral tablet 1 tab, Oral, every 12 hr, # 20 tab, 0 Refill(s), Pharmacy: [id number] Start Date: 07/24/22 Stop Date: 08/03/22 Status: Ordered busPIRone 5 mg oral tablet 2 tab, Oral, TID, # 540 tab, 0 Refill(s), Pharmacy: [id number] Start Date: 07/27/22 Status: Ordered citalopram 40 mg oral tablet See Instructions, Take 1 tablet by mouth once daily, # 90 tab, 3 Refill(s), Pharmacy: [id number] Start Date: 07/09/22 Status: Ordered fluticasone 50 mcg/inh nasal spray 2 sprays, Nasal, Daily, # 16 g, 5 Refill(s), Pharmacy: [id number] Start Date: 03/19/22 Status: Ordered levETIRAcetam 1000 mg oral tablet 180 EA, TAKE 1 TABLET BY MOUTH EVERY 12 HOURS, 0 Refill(s) Start Date: 02/15/22 Status: Ordered lisinopril 40 mg oral tablet 1 tab, Oral, Daily, # 90 tab, 3 Refill(s), Pharmacy: [id number] Start Date: 07/19/22 Status: Ordered LORazepam 1 mg oral tablet 1 mg = 1 tab, Oral, every 6 hr, PRN as needed for anxiety, # 15 tab, 1 Refill(s), Pharmacy: [facility] Start Date: 06/18/22 Stop Date: 06/26/22 Status: Ordered pantoprazole 40 mg oral delayed release tablet 40 mg = 1 tab, Oral, Daily, # 90 tab, 3 Refill(s), Pharmacy: [id number] Start Date: 05/24/22 Stop [...] daily, # 180 tab, 3 Refill(s), Pharmacy: [id number] Start Date: 05/07/22 Status: [...] Member Role: Primary Care Physician Address: Address: [address] [place] [phone] [place] Care Team Related Persons Name: GASPER LEDESMA Name: LEI BLACK
--- OUTSIDE RECORDS SUMMARY | 2024-01-13 19:01 | XMS_ITS | Encounter Summary ---
Author Organization [facility] Address [facility] [place] [address] Care Team Providers Care Stenciler Name Role Phone None Primary Care Provider Unavailabl e Encounter Details Date Type Department Care Team (Late st Contact Info) Description 02/24/2010 [place] [id number] Iggy Thomas MD [facility] OBSTETRICS & [place] [address] Social History Tobacco Use Types Packs/Day Years Used Date Smoking Tobacco: Never Assessed Sex and Gender Information Value Date Recorded Sex Assigned at Not on file Gender Identity Not on file Sexual Orientation Not on file documented as of this encounter Plan of Treatment Not on file documented as of this encounter Procedures Procedure Name Priority Date/Time Associated Diagnosis Comments URINALYSIS WITH REFLEX CULTURE Routine 02/24/2010 9:30 AM EST URINE CULTURE Routine 02/24/2010 9:30 AM EST documented in this encounter Results * URINE CULTURE (02/24/2010 9:30 AM EST) Urine Culture ? Patient Name: CAMILA LEDESMA ?Ordered By: VELMA GRIFFITHS ? MR#: [id number] ?LOC: ??BPA ? /Sex: ??1985 (24 years), ? Female ? PROCEDURE: Urine Culture ?SOURCE: U CC ? COLLECTED: 02/24/2010 09:30 ? STARTED: 02/24/2010 10:33 ? FINAL REPORT ? Final Report ? Verified:09/2010 11:27 ? 10,000-49,000 cfu/ml mixed mucosal isaias including Beta Hemolytic ? Streptococci, Group B ? __ CERNER MILLENNIUM Urine specimen obtained by clean catch procedure (specimen) 02/24/2010 9:30 AM EST 02/24/2010 10:27 AM EST Velma ZABALA MICROBIOLOGY - GENER AL ORDERABLES CERNER MILLENNIUM * URINALYSIS WITH MICROSCOPIC (02/24/2010 9:30 AM EST) Glucose, Urine Dipstick Negative Negative mg/dL CERNER MILLENNIUM Protein, Urine Dipstick Negative mg/dL CERNER MILLENNIUM Bilirubin, Urine Dipstick Negative Negative mg/dL CERNER MILLENNIUM Urobilinogen, Urine Dipstick Normal mg/dL CERNER MILLENNIUM pH, Urn (dipstick) 6.0 5.0 - 8.0 CERNER MILLENNIUM Blood, Urine Dipstick Negative mg/dL CERNER MILLENNIUM Ketone, Urine Dipstick Negative mg/dL CERNER MILLENNIUM Nitrite, Urine Dipstick Negative CERNER MILLENNIUM Leukocytes, Urine Dipstick Negative mcL CERNER MILLENNIUM Appearance, Urine Dipstick Clear Clear CERNER MILLENNIUM Specific [place] Urine Automated 1.002 1.002 - 1.030 CERNER MILLENNIUM Color, Urine Dipstick Yellow Yellow CERNER MILLENNIUM RBC, Urine <1 0 - 4 /HPF CERNER MILLENNIUM WBC, Urine Not Present 0 - 5 CERNER MILLENNIUM Bacteria, Urine Few /HPF CERNER MILLENNIUM Squamous Epithelial Cells, Urine 3 <=4 /HPF CERNER MILLENNIUM Urine specimen (specimen) 02/24/2010 9:30 AM EST 02/24/2010 10:21 AM EST Iggy Thomas MD URINE ORDERABLES CERNER MILLENNIUM documented in this encounter Visit Diagnoses Not on filedocumented in this encounter Care Teams Stenciler Relationship Specialty Start Date End Date None None PCP - General 01/10/10 05/31/10 documented as of this encounter
--- OUTSIDE RECORDS SUMMARY | 2024-01-13 19:01 | XMS_ITS | Encounter Summary ---
Author Organization [facility] [place] [address] Care Team Providers Care Platinum Smith Name Role Phone None Primary Care Provider Unavailabl e Encounter Details Date Type Department Care Team (Latest Contact Info) Description 01/23/2010 2:20 PM EST Routine Obstetrics [place] [address] Iman Nation, [facility] DR OBSTETRICS [place] [address] Discharge Disposition: Home Social History Tobacco Use [...] on filedocumented in this encounter Care Teams Platinum Smith Relationship Specialty Start Date End Date None None PCP - General 01/10/10 05/31/10 documented as of this encounter
--- OUTSIDE RECORDS SUMMARY | 2024-01-13 19:01 | XMS_ITS | Encounter Summary ---
Author Organization [facility] Address [facility] [place] [address] Care Team Providers Care Armament Aircraft Mechanic Name Role Phone None Primary Care Provider Unavailabl e Encounter Details Date Type Department Care Team (Late st Contact Info) Description 01/23/2010 [place] [phone] Judith Nation, [facility] OBSTETRICS & [place] [address] Social History Tobacco Use Types Packs/Day Years Used Date Smoking Tobacco: Never Assessed Sex and Gender Information Value Date Recorded Sex Assigned at Not on file Gender Identity Not on file Sexual Orientation Not on file documented as of this encounter Plan of Treatment Not on file documented as of this encounter Procedures Procedure Name Priority Date/Time Associated Diagnosis Comments URINE CULTURE Routine 01/23/2010 3:10 PM EST documented in this encounter Results * URINE CULTURE (01/23/2010 3:10 PM EST) Urine Culture ? Patient Name: CAMILA LEDESMA ?Ordered By: JUDITH WHITE ? MR#: [id number] ?LOC: ??5L ? /Sex: ??1985 (24 years), ? Female ? PROCEDURE: Urine Culture ?SOURCE: T CC ? COLLECTED: 01/23/2010 15:10 ? STARTED: 01/23/2010 15:48 ? FINAL REPORT ? Final Report ? Verified:1208/2009 15:33 ? 50,000-99,000 cfu/ml mixed mucosal isaias ? __ CERNER MILLENNIUM Urine specimen obtained by clean catch procedure (specimen) 01/23/2010 3:10 PM EST 01/23/2010 3:47 PM EST Judith White CNM MICROBIOLOGY - GENERAL ORDERABLES ROBBY TAYLORENNIUM documented in this encounter Visit Diagnoses Not on filedocumented in this encounter Care Teams Armament Aircraft Mechanic Relationship Specialty Start Date End Date None None PCP - General 01/10/10 05/31/10 documented as of this encounter
--- OUTSIDE RECORDS SUMMARY | 2024-01-13 19:01 | XMS_ITS | Encounter Summary ---
[place] [address] Care Team Providers Care Low Pressure Boiler Tender Name Role Phone None Primary Care Provider Unavailabl e Encounter Details Date Type Department Care Team (Late st Contact Info) Description 03/13/2010 1:45 PM EST Procedure visit [place] [address] Social History Tobacco Use Types Packs/Day Years Used Date Smoking Tobacco: Never Assessed Sex and Gender Information Value Date Recorded Sex Assigned at Not on file Gender Identity Not on file Sexual Orientation Not on file documented as of this encounter Plan of Treatment Not on file documented as of this encounter Visit Diagnoses Not on filedocumented in this encounter Care Teams Low Pressure Boiler Tender Relationship Specialty Start Date End Date None None PCP - General 01/10/10 05/31/10 documented as of this encounter
--- OUTSIDE RECORDS SUMMARY | 2024-01-13 19:01 | XMS_ITS | Encounter Summary ---
Author Organization [facility] [place] [address] Care Team Providers Care Mds Rn Name Role Phone None Primary Care Provider Unavailabl e Encounter Details Date Type Department Care Team (Latest Contact Info) Description 02/18/2010 12:25 PM EST - 02/18/2010 1:54 PM [facility] Hospital Encounter [facility] [place] [address] Ara Aranda MD [facility] DR OBSTETRICS [place] [address] Discharge Disposition: Home Social History Tobacco Use [...] on filedocumented in this encounter Care Teams Mds Rn Relationship Specialty Start Date End Date None None PCP - General 01/10/10 05/31/10 documented as of this encounter
--- OUTSIDE RECORDS SUMMARY | 2024-01-13 19:01 | XMS_ITS | Continuity of Care Document ---
Author Organization [facility] Ambulatory Clinics Address [address] [place] [address] Care Team Providers Care Store Operations Manager Name Role Phone Medardo Sargent DO Primary Care Physician Encounter [facility] FIN NBR [id number] Date(s): 04/03/22 - 04/03/22 [facility] Ambulatory Clinics [address] [place] [address] [[email or web address] Encounter Diagnosis Allergic rhinitis(Discharge Diagnosis) - 04/03/22 Discharge Disposition: Home or Self Care Attending Physician: Dion Maravilla DO Allergies, Adverse Reactions, Alerts Substance Reaction Severity Status acetaminophen-oxycodone palpitations Severe Acti ve Emgality 1 Headache Moderate Active 1300 MG dose, worsening headaches. Assessment and Plan Future Appointments Medications !-Augmentin 875 mg-125 mg oral tablet 1 tab, Oral, every 12 hr, # 20 tab, 0 Refill(s), Pharmacy: [id number] Start Date: 02/20/22 Stop Date: 03/02/22 Status: Ordered busPIRone 5 mg oral tablet 10 mg = 2 tab, Oral, TID, # 540 tab, 1 Refill(s), [facility] Start Date: 12/05/21 Stop Date: 06/03/22 Status: Ordered citalopram 40 mg oral tablet 90 EA, TAKE 1 TABLET BY MOUTH ONCE DAILY, 0 Refill(s) Start Date: 02/15/22 Status: Ordered fluticasone 50 mcg/inh nasal spray 2 sprays, Nasal, Daily, # 16 g, 5 Refill(s), Pharmacy: [facility] Start Date: 03/19/22 Status: Ordered levETIRAcetam 1000 mg oral tablet 180 EA, TAKE 1 TABLET BY MOUTH EVERY 12 HOURS, 0 Refill(s) Start Date: 02/15/22 Status: Ordered lisinopril 40 mg oral tablet 1 tab, Oral, Daily, # 90 tab, 1 Refill(s), Pharmacy: [facility] Start Date: 11/26/21 Status: Ordered LORazepam 1 mg oral tablet 1 mg = 1 tab, Oral, every 6 hr, PRN as needed for anxiety, # 15 tab, 1 Refill(s), [facility] Start Date: 12/18/21 Stop Date: 12/26/21 [...] Member Role: Primary Care Physician Address: Address: [address] [place] [phone] [place] Care Team Related Persons Name: GASPER LEDESMA Name: LEI BLACK
--- OUTSIDE RECORDS SUMMARY | 2024-01-13 19:01 | XMS_ITS | Encounter Summary ---
[place] [address] Care Team Providers Care Boat Rigger Name Role Phone None Primary Care Provider Unavailabl e Encounter Details Date Type Department Care Team (Latest Contact Info) Description 02/09/2010 9:40 AM EST Routine Obstetrics [place] [address] Nuvia White, ERICA Discharge Disposition: Home Social History Tobacco Use [...] filedocumented in this encounter Care Teams Boat Rigger Relationship Specialty Start Date End Date None None PCP - General 01/10/10 05/31/10 documented as of this encounter
--- OUTSIDE RECORDS SUMMARY | 2024-01-13 19:01 | XMS_ITS | Encounter Summary ---
Author Organization [facility] [place] [address] Care Team Providers Care Biological Inspector Name Role Phone None Primary Care Provider Unavailabl e Encounter Details Date Type Department Care Team (Late st Contact Info) Description 03/06/2010 11:00 AM EST Office Visit Obstetrics [place] [address] [facility] DR OBSTETRICS [place] [address] Discharge Disposition: Home Social History Tobacco Use [...] on filedocumented in this encounter Care Teams Biological Inspector Relationship Specialty Start Date End Date None None PCP - General 01/10/10 05/31/10 documented as of this encounter
--- OUTSIDE RECORDS SUMMARY | 2024-01-13 19:01 | XMS_ITS | Continuity of Care Document ---
Author Organization [facility] Ambulatory Clinics Address [address] [place] [address] Care Team Providers Care Computer Technology Teacher Name Role Phone Medardo Sargent DO Primary Care Physician Encounter [facility] FIN NBR [id number] Date(s): 05/29/22 - 05/29/22 [facility] Ambulatory Clinics [address] [place] [address] [[email or web address] Encounter Diagnosis Allergic rhinitis(Discharge Diagnosis) - 05/29/22 Discharge Disposition: Home or Self Care Attending Physician: Dion Maravilla DO Allergies, Adverse Reactions, Alerts Substance Reaction Severity Status acetaminophen-oxycodone palpitations Severe Acti ve Emgality 1 Headache Moderate Active 1300 MG dose, worsening headaches. Assessment and Plan Future Appointments Medications !-Augmentin 875 mg-125 mg oral tablet 1 tab, Oral, every 12 hr, # 20 tab, 0 Refill(s), Pharmacy: [facility] Start Date: 02/20/22 Stop Date: 03/02/22 Status: Ordered busPIRone 5 mg oral tablet 10 mg = 2 tab, Oral, TID, # 540 tab, 1 Refill(s), [facility] Start Date: 12/05/21 Stop Date: 06/03/22 Status: Ordered citalopram 40 mg oral tablet 90 EA, TAKE 1 TABLET BY MOUTH ONCE DAILY, 0 Refill(s) Start Date: 02/15/22 Status: Ordered fluticasone 50 mcg/inh nasal spray 2 sprays, Nasal, Daily, # 16 g, 5 Refill(s), Pharmacy: [facility] 4[facility] Start Date: 03/19/22 Status: Ordered levETIRAcetam 1000 mg oral tablet 180 EA, TAKE 1 TABLET BY MOUTH EVERY 12 HOURS, 0 Refill(s) Start Date: 02/15/22 Status: Ordered lisinopril 40 mg oral tablet 1 tab, Oral, Daily, # 90 tab, 1 Refill(s), Pharmacy: [facility] Start Date: 11/26/21 Status: Ordered LORazepam 1 mg oral tablet 1 mg = 1 tab, Oral, every 6 hr, PRN as needed for anxiety, # 15 tab, 1 Refill(s), [facility] Start Date: 12/18/21 Stop Date: 12/26/21 Status: Ordered pantoprazole 40 mg oral delayed release tablet 40 mg = 1 tab, Oral, Daily, # 90 tab, 3 Refill(s), Pharmacy: [facility] 4[facility] Start Date: 05/24/22 [...] daily, # 180 tab, 3 Refill(s), Pharmacy: [facility] Start Date: 05/07/22 [...] Member Role: Primary Care Physician Address: Address: [address] [place] [phone] [place] Care Team Related Persons Name: GASPER LEDESMA Name: LEI BLACK
--- OUTSIDE RECORDS SUMMARY | 2024-01-13 19:02 | XMS_ITS | Continuity of Care Document ---
Author Organization [facility] Ambulatory [facility]ics Address [address] [place] [address] Care Team Providers Care Chief Accounting Officer Name Role Phone Medardo Sargent DO Primary Care Physician [phone] Encounter [facility] NBR [id number] Date(s): 03/27/22 - 03/27/22 [facility] Ambulatory [facility] [address] [place], [place] [address] Encounter Diagnosis Allergic rhinitis(Discharge Diagnosis) - 03/27/22 Discharge Disposition: Home or Self Care Attending Physician: Dion Maravilla DO Allergies, Adverse Reactions, Alerts Substance Reaction Severity Status acetaminophen-oxycodone palpitations Severe Acti ve Emgality 1 Headache Moderate Active 1300 MG dose, worsening headaches. Assessment and Plan Future Appointments Medications !-Augmentin 875 mg-125 mg oral tablet 1 tab, Oral, every 12 hr, # 20 tab, 0 Refill(s), Pharmacy: [facility] Start Date: 02/20/22 Stop Date: 03/02/22 Status: Ordered busPIRone 5 mg oral tablet 10 mg = 2 tab, Oral, TID, # 540 tab, 1 Refill(s), Pharmacy: [facility] Start Date: 12/05/21 Stop Date: 06/03/22 Status: Ordered citalopram 40 mg oral tablet 90 EA, TAKE 1 TABLET BY MOUTH ONCE DAILY, 0 Refill(s) Start Date: 02/15/22 Status: Ordered fluticasone 50 mcg/inh nasal spray 2 sprays, Nasal, Daily, # 16 g, 5 Refill(s), Pharmacy: [facility] Start Date: 03/19/22 Status: Ordered levETIRAcetam 1000 mg oral tablet 180 EA, TAKE 1 TABLET BY MOUTH EVERY 12 HOURS, 0 Refill(s) Start Date: 02/15/22 Status: Ordered lisinopril 40 mg oral tablet 1 tab, Oral, Daily, # 90 tab, 1 Refill(s), Pharmacy: [facility] 4389 Start Date: 11/26/21 Status: Ordered LORazepam 1 mg oral tablet 1 mg = 1 tab, Oral, every 6 hr, PRN as needed for anxiety, # 15 tab, 1 Refill(s), [facility] Start Date: 12/18/21 Stop Date: 12/26/21 [...] Personnel Name: Medardo Sargent DO Address: Address: [address] [place] [phone]
--- OUTSIDE RECORDS SUMMARY | 2024-01-13 19:02 | XMS_ITS | Continuity of Care Document ---
Author Organization [facility] Ambulatory [facility]ics Address [address] [place] [address] Care Team Providers Care Head End Desizing Machine Operator Name Role Phone Medardo Sargent DO Primary Care Physician Encounter [facility] FIN NBR [id number] Date(s): 12/26/21 - 12/26/21 [facility] [address] [place], [place] [address] Encounter Diagnosis Acute allergic rhinitis(Discharge Diagnosis) - 12/27/21 Discharge Disposition: Home or Self Care Attending Physician: Dion Maravilla DO Assessment and Plan Future Appointments Medications busPIRone 5 mg oral tablet 10 mg = 2 tab, Oral, TID, # 540 tab, 1 Refill(s), Pharmacy: [facility] Start Date: 12/05/21 Stop Date: 06/03/22 Status: Ordered lisinopril 40 mg oral tablet 1 tab, Oral, Daily, # 90 tab, 1 Refill(s), Pharmacy: [facility] 4389 Start Date: 11/26/21 Status: Ordered LORazepam 1 mg oral tablet 1 mg = 1 tab, Oral, every 6 hr, PRN as needed for anxiety, # 15 tab, 1 Refill(s), Pharmacy: [facility] Start Date: 12/18/21 Stop Date: 12/26/21 Status: Ordered Problem List Condition Confirmation Course Effective Dates Status [facility] Informant Allergic rhinitis due to pollen Confirmed Active Patient Care team information Care Team Personnel Name: Medardo Sargent DO Position: Physician Member Role: Primary Care Physician Address: Address: [address] [place] [address]
--- OUTSIDE RECORDS SUMMARY | 2024-01-13 19:02 | XMS_ITS | Continuity of Care Document ---
Author Organization [facility] Ambulatory [facility]ics Address [address] [place] [address] Care Team Providers Care Utility Service Worker Name Role Phone Medardo Sargent DO Primary Care Physician [phone] Encounter [facility] FIN NBR [id number] Date(s): 07/24/22 - 07/24/22 [facility] Ambulatory [facility] [address] [place], [place] [address] Discharge Disposition: Home Allergies, Adverse Reactions, Alerts Substance Reaction Severity Status acetaminophen-oxycodone palpitations Severe Acti ve Emgality 1 Headache Moderate Active 1300 MG dose, worsening headaches. Assessment and Plan Future Appointments Medications !-Augmentin 875 mg-125 mg oral tablet 1 tab, Oral, every 12 hr, # 20 tab, 0 Refill(s), [facility] Start Date: 07/24/22 Stop Date: 08/03/22 Status: Ordered busPIRone 5 mg oral tablet 10 mg = 2 tab, Oral, TID, # 540 tab, 1 Refill(s), Pharmacy: [facility] 4389 Start Date: 12/05/21 Stop Date: 06/03/22 Status: Ordered citalopram 40 mg oral tablet See Instructions, Take 1 tablet by mouth once daily, # 90 tab, 3 Refill(s), Pharmacy: [facility] 4389 Start Date: 07/09/22 Status: Ordered fluticasone 50 mcg/inh nasal spray 2 sprays, Nasal, Daily, # 16 g, 5 Refill(s), Pharmacy: [facility] 4389 Start Date: 03/19/22 Status: Ordered levETIRAcetam 1000 mg oral tablet 180 EA, TAKE 1 TABLET BY MOUTH EVERY 12 HOURS, 0 Refill(s) Start Date: 02/15/22 Status: Ordered lisinopril 40 mg oral tablet 1 tab, Oral, Daily, # 90 tab, 3 Refill(s), Pharmacy: [facility] 4[facility] Start Date: 07/19/22 Status: Ordered LORazepam 1 mg oral tablet 1 mg = 1 tab, Oral, every 6 hr, PRN as needed for anxiety, # 15 tab, 1 Refill(s), [facility] Start Date: 06/18/22 Stop Date: 06/26/22 Status: Ordered pantoprazole 40 mg oral delayed release tablet 40 mg = 1 tab, Oral, Daily, # 90 tab, 3 Refill(s), Pharmacy: [facility] 4389 Start Date: 05/24/22 [...] daily, # 180 tab, 3 Refill(s), Pharmacy: [facility] 4389 Start Date: 05/07/22 [...] Member Role: Primary Care Physician Address: Address: [address] [place] [phone] Care Team Related Persons Name: GASPER LEDESMA Name: LEI BLACK
--- OUTSIDE RECORDS SUMMARY | 2024-01-13 19:02 | XMS_ITS | Continuity of Care Document ---
Author Organization [facility] Ambulatory [facility] Address [address] [place] [address] Care Team Providers Care Child And Youth Program Assistant Name Role Phone Medardo Sargent DO Primary Care Physician Encounter [facility] [facility] NBR [id number] Date(s): 09/11/22 - 09/11/22 [facility] Ambulatory [facility] [address] [place] [address]- Encounter Diagnosis Environmental allergies(Discharge Diagnosis) - 09/11/22 Discharge Disposition: Home or Self Care Allergies, Adverse Reactions, Alerts Substance Reaction Severity Status acetaminophen-oxycodone palpitations Severe Acti ve Emgality 1 Headache Moderate Active 1300 MG dose, worsening headaches. Assessment and Plan Extracted from: Title:allergy serum mix Author:YUE Payan Date:09/10/22 Assessment Vial mixed per allergy order for allergy IT. See scanned doc. for allergy order. . Plan Diagnosis: Environmental allergies ([id number] Z91.09, Discharge, Medical). Orders Ambulatory Procedures: 02490 Preparation and provision of antigens for allergen immunotherapy; single or multiple antigens (Order): 09/11/2022 7:30 EDT, Environmental allergies, 5 Future Scheduled Tests Radiology* MRI Brain w/ [...] daily, # 90 tab, 3 Refill(s), Pharmacy: [facility] 438 Start Date: 07/09/22 Status: Ordered fluticasone 50 mcg/inh nasal spray 2 sprays, Nasal, Daily, # 16 g, 5 Refill(s), Pharmacy: [facility] [address] Start Date: 03/19/22 Status: Ordered levETIRAcetam 1000 mg oral tablet 1 tab, Oral, every night at bedtime, # 90 tab, 0 Refill(s), Pharmacy: [facility] [address], 167, cm, 08/09/22 11:40:00 EDT, Height/Length Dosing, 130, kg, 08/09/22 11:40:00 EDT, Weight Dosing Start Date: 08/17/22 Status: Ordered levETIRAcetam 500 mg oral tablet 500 mg = 1 tab, Oral, every morning, # 90 tab, 1 Refill(s), Pharmacy: [facility] [address], 167, cm, 08/09/22 11:40:00 EDT, Height/Length Dosing, 130, kg, 08/09/22 11:40:00 EDT, Weight Dosing Start Date: 08/17/22 Status: Ordered lisinopril 40 mg oral tablet 1 tab, Oral, Daily, # 90 tab, 3 Refill(s), Pharmacy: [facility] [address] Start Date: 07/19/22 Status: Ordered LORazepam 1 mg oral tablet 1 mg = 1 tab, Oral, every 6 hr, PRN as needed for anxiety, # 15 tab, 1 Refill(s), Pharmacy: [facility] [address], 167, cm, 08/09/22 11:40:00 EDT, Height/Length Dosing, 130, kg, 08/09/22 11:40:00 EDT, Weight Dosing Start Date: 08/15/22 Stop Date: 08/23/22 Status: Ordered pantoprazole 40 mg oral delayed release tablet 40 mg = 1 tab, Oral, Daily, # 90 tab, 3 Refill(s), Pharmacy: [facility] 4389 Start Date: 05/24/22 Stop [...] DAYS, # 9 tab, 1 Refill(s), Pharmacy: [facility], 167, cm, 08/09/22 11:40:00 EDT, Height/John... Start Date: 08/15/22 Status: Ordered topiramate 100 mg oral tablet See Instructions, Take 1 tablet by mouth twice daily, # 180 tab, 3 Refill(s), Pharmacy: [facility] 4389 Start Date: 05/07/22 Status: [...] obacco Use:. Sex Physician Outpatient Note * YUE Payan: PERFORM, MODIFY, SIGN, VERIFY Event Display: Office Clinic Note Physician Authored Date: [id number] Patient: CAMILA LEDESMA Age: 36 years Sex: Female : 1985 Associated Diagnoses: Environmental allergies Author: YUE Payan Chief Complaint Allergy Serum mixing for allergy immunotherapy Visit Information 5mL Vial mixed per allergy orders for allergy IT. Medications Include (Selected) Prescriptions Prescribed LORazepam 1 mg oral tablet: 1 mg = 1 tab, Oral, every 6 hr, for 4 days, PRN: as needed for anxiety,15 tab, 1 Refill(s) SUMAtriptan 100 mg oral tablet: 100 mg = 1 tab, Oral, Once, 9 EA, TAKE 1 TABLET BY MOUTH EVERY 24 HOURS NEEDED FOR HEADACHE - MAY REPEAT AFTER 2 HOURS - USE A DIRECTED - FOR 30 DAYS, 9 tab, 1 Refill(s) citalopram 40 mg oral tablet: See Instructions, Take 1 tablet by mouth once daily, 90 tab, 3 Refill(s) fluticasone 50 mcg/inh nasal spray: 2 sprays, Nasal, Daily, 16 g, 5 Refill(s) levETIRAcetam 1000 mg oral tablet: 1 tab, Oral, every night at bedtime, 90 tab, 0 Refill(s) levETIRAcetam 500 mg oral tablet: 500 mg = 1 tab, Oral, every morning, 90 tab, 1 Refill(s) lisinopril 40 mg oral tablet: 1 tab, Oral, Daily, 90 tab, 3 Refill(s) pantoprazole 40 mg oral delayed release tablet: 40 mg = 1 tab, Oral, Daily, for 90 days, 90 tab, 3 Refill(s) topiramate 100 mg oral tablet: See Instructions, Take 1 tablet by mouth twice daily, 180 tab, 3 Refill(s) Documented Medications Documented busPIRone 5 mg oral tablet: 5 mg = 1 tab, Oral, TID pyridoxine 100 mg oral tablet: 100 mg = 1 tab, Oral, Daily, for 90 days, 90 tab, 0 Refill(s). 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 Assessment Vial mixed per allergy order for allergy IT. See scanned doc. for allergy order. . Plan Diagnosis: Environmental allergies (IGL52-FR Z91.09, Discharge, Medical). Orders Ambulatory Procedures: 87640 Preparation and provision of antigens for allergen immunotherapy; single or multiple antigens(Order): 09/11/2022 7:30 EDT, Environmental allergies, 5 Electronically Signed on 09/11/22 02:09 PM YUE Payan Patient Care team information Care Team Personnel Name: Medardo Sargent DO Position: Physician Member Role: Primary Care Physician Address: Address: [address] [place] [phone] [place] Care Team Related Persons Name: GASPER LEDESMA Name: LEI BLACK
--- OUTSIDE RECORDS SUMMARY | 2024-01-13 19:02 | XMS_ITS | Continuity of Care Document ---
Author Organization [facility] Ambulatory [facility] Address [address] [place] [address] Care Team Providers Care Senior Design Engineer Name Role Phone Medardo Sargent DO Primary Care Physician [phone] Encounter [facility] [facility] NBR [id number] Date(s): 08/07/22 - 08/07/22 [facility] Ambulatory [facility] [address] [place] [address]- Encounter Diagnosis Allergic rhinitis(Discharge Diagnosis) - 08/07/22 Discharge Disposition: Home or Self Care Attending Physician: Dion Maravilla DO Allergies, Adverse Reactions, Alerts Substance Reaction Severity Status acetaminophen-oxycodone palpitations Severe Acti ve Emgality 1 Headache Moderate Active 1300 MG dose, worsening headaches. Medications !-Augmentin 875 mg-125 mg oral tablet 1 tab, Oral, every 12 hr, # 20 tab, 0 Refill(s), [facility] Start Date: 07/24/22 Stop Date: 08/03/22 Status: Ordered busPIRone 5 mg oral tablet 2 tab, Oral, TID, # 540 tab, 0 Refill(s), [facility] Start Date: 07/27/22 Status: Ordered citalopram 40 mg oral tablet See Instructions, Take 1 tablet by mouth once daily, # 90 tab, 3 Refill(s), [facility] Start Date: 07/09/22 Status: Ordered fluticasone 50 mcg/inh nasal spray 2 sprays, Nasal, Daily, # 16 g, 5 Refill(s), Pharmacy: [facility] 4389 Start Date: 03/19/22 Status: Ordered levETIRAcetam 1000 mg oral tablet 180 EA, TAKE 1 TABLET BY MOUTH EVERY 12 HOURS, 0 Refill(s) Start Date: 02/15/22 Status: Ordered lisinopril 40 mg oral tablet 1 tab, Oral, Daily, # 90 tab, 3 Refill(s), Pharmacy: [facility] 4389 Start Date: 07/19/22 Status: Ordered LORazepam 1 mg oral tablet 1 mg = 1 tab, Oral, every 6 hr, PRN as needed for anxiety, # 15 tab, 1 Refill(s), [facility]: [facility] Start Date: 06/18/22 Stop Date: 06/26/22 Status: Ordered pantoprazole 40 mg oral delayed release tablet 40 mg = 1 tab, Oral, Daily, # 90 tab, 3 Refill(s), Pharmacy: [facility] 4389 Start Date: 05/24/22 Stop [...] daily, # 180 tab, 3 Refill(s), Pharmacy: [facility] Start Date: 05/07/22 Status: [...] Member Role: Primary Care Physician Address: Address: [address] [place] [phone] [place] Care Team Related Persons Name: GASPER LEDESMA Name: LEI BLACK
--- OUTSIDE RECORDS SUMMARY | 2024-01-13 19:02 | XMS_ITS | Continuity of Care Document ---
Author Organization [facility] Ambulatory [facility]ics Address [address] [place] [address] Care Team Providers Care Associate Name Role Phone Medardo Sargent DO Primary Care Physician [phone] Encounter [facility] NBR [id number] Date(s): 08/15/22 - 08/15/22 [facility] Ambulatory Clinics [address] [place] [address]- Encounter Diagnosis Refractory migraine without aura(Discharge Diagnosis) - 08/15/22 Convulsion, non-epileptic(Discharge Diagnosis) - 08/15/22 Congenital anomaly of cerebrovascular system(Discharge Diagnosis) - 08/15/22 Anxiety(Discharge Diagnosis) - 08/15/22 Discharge Disposition: Home or Self Care Attending Physician: Stefany Hopkins MD Allergies, Adverse Reactions, Alerts Substance Reaction Severity Status acetaminophen-oxycodone palpitations Severe Acti ve Emgality 1 Headache Moderate Active 1300 MG dose, worsening headaches. Assessment and Plan Future Scheduled Tests Radiology* MRI Brain w/ + w/o Contrast 08/16/22 Functional Status 08/15/22 Other exposure to Infectious Disease Non e [...] daily, # 90 tab, 3 Refill(s), Pharmacy: [facility] [address] Start Date: 07/09/22 Status: Ordered fluticasone 50 mcg/inh nasal spray 2 sprays, Nasal, Daily, # 16 g, 5 Refill(s), Pharmacy: [facility] [address] Start Date: 03/19/22 Status: Ordered Keppra 500 mg oral tablet 500 mg = 1 tab, Oral, every morning, 0 Refill(s) Start Date: 08/09/22 Status: Ordered levETIRAcetam 1000 mg oral tablet 1,000 mg = 1 tab, Oral, every night at bedtime, 0 Refill(s) Start Date: 02/15/22 Status: Ordered lisinopril 40 mg oral tablet 1 tab, Oral, Daily, # 90 tab, 3 Refill(s), Pharmacy: [facility] [address] Start Date: 07/19/22 Status: Ordered LORazepam 1 mg oral tablet 1 mg = 1 tab, Oral, every 6 hr, PRN as needed for anxiety, # 15 tab, 1 Refill(s), Pharmacy: [facility] [address], 167, cm, 08/09/22 11:40:00 EDT, Height/Length Dosing, 130, kg, 08/09/22 11:40:00 EDT, Weight Dosing Start Date: 08/15/22 Stop Date: 08/23/22 Status: Ordered pantoprazole 40 mg oral delayed release tablet 40 mg = 1 tab, Oral, Daily, # 90 tab, 3 Refill(s), Pharmacy: [facility] [address] Start Date: 05/24/22 Stop Date: 05/19/23 Status: [...] DAYS, # 9 tab, 1 Refill(s), Pharmacy: [facility], 167, cm, 08/09/22 11:40:00 EDT, Height/John... Start Date: 08/15/22 Status: Ordered topiramate 100 mg oral tablet See Instructions, Take 1 tablet by mouth twice daily, # 180 tab, 3 Refill(s), Pharmacy: [facility] Start Date: 05/07/22 Status: Ordered Problem List Condition Confirmation Course Effective Dates Status H ealth Status Informant Allergic rhinitis due to pollen Confirmed [...] Most recent to oldest [Reference Range]: 1 Peripheral Pulse Rate [60-100 bpm] 72 bp m (08/15/22 10:34 AM) Blood Pressure [90-140/60-90 mmHg] 110/8 2mmHg (08/15/22 10:34 AM) Weight 130 kg (08/15/22 10:34 AM) Weight Measured (lbs) 286.601 lb (08/15/22 10:34 AM) Social History Social History Type Response Tobacco Never tobacco user T obacco Use:. Sex Physician Outpatient Note * Stefany Hopkins MD: PERFORM Event Display: Office Clinic Note Physician Authored Date: [id number] CAMILA LEDESMA :1985 Age:36 years Sex:Female Visit Date:08/15/2022 Primary Care Physician: Medardo Sargent DO Chief Complaint Patient is here for a F/U with Seizure, Having difficulty getting lorazepam and sumatriptan (out ofrefills). In [place] [facility] [place]. Possible Marijuana card, pot has helped with her migraines and calming her body History of Present Illness Presents for ER follow-up. She was seen in office 08/09 for right ear/face pain??and had a non-responsive seizure-like episode during that visit, so a rapid response was called and she was evaluated in ER. Teleneurology consultdiagnosed the episode as a non- convulsive seizure, and she was recommended for EEG and neurology follow-up - [facility] referral has been placed. She remains on Keppra 500 mg in AM and 1000 mg in PM. In addition, she followed with neurosurgery after prior left frontal cavernous malformation laser ablation in 12/2020. She has migraine headaches, which she manages with sumatriptan and topiramate. Has taken 4 doses ofsumatriptan in the past week due to worsening headaches. Current headache is 5/10 intensity, feeling more functional than last week, trying to rest, hydrate, avoid allergy triggers. Right ear/face pain feels like a cold wind whipping past my ear. She takes citalopram, buspirone, and??lorazepam for anxiety. She is considering taking marijuana to help manage her symptoms - had never used marijuana prior toher headaches starting, but has found it helpful on occasion since then. Review of Systems as per HPI Physical Exam Vitals & Measurements HR:??72??(Peripheral)?? BP:??110/82?? SpO2:??98%?? WT:??130??kg?? Gen: obese, well-appearing, in no acute distress ENT: both TMs appear normal, no erythema, no effusion CV: regular rate and rhythm, no murmurs Resp: normal respiratory effort, lungs clear to auscultation bilaterally Neuro: she reports a sensation of cold and shivering in her left ear and posterior head Psych/MSE: attentive,??anxious mood, appropriate affect Assessment/Plan 1.??Refractory migraine without aura??G43.019 reviewed ER notes - pain has improved significantly since last week's visit, though still not fullyresolved continue topiramate and PRN sumatriptan (she will need refill of this??that I am not able to send due to her insurance - refill request message has been sent) 2.??Convulsion, 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 will need neurology follow-up and EEG??through [facility] - referral has already been placed she has significant anxiety and stress, which may be driving her recent convulsive episode, howevershe also has a new right-sided headache which is concerning for epileptiform seizure 3.??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, s/p laser ablation 12/2020 she should have repeat MRI brain with and without contrast, and follow up with [facility] [place] (she notes her visit there 07/04 was very cursory and produced more questions than it answered) - she has already called [facility] [place] since her ER visit to try to get an appointment scheduled, but has not yet heard back 4.??Anxiety??F41.9 ongoing but manageable symptoms on current regimen of citalopram, buspirone, and lorazepam (needs controlled med refill, message sent) Total time spent caring for the patient today was??30 minutes. This includes time spent before the visit reviewing the chart, time spent face to face??during the visit, and time spent after the visitcompleting??documentation on the day of service. Services today were related to her recent ER visitas well as discussing ongoing symptoms and needed specialist follow-up. Future Orders MRI Brain w/ + w/o Contrast, *Est. 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 section???Dilation and curettage???Surgery???Surgery???Tubal ligation Medications busPIRone 5 mg oral tablet, 5 mg= 1 tab, Oral, TID citalopram 40 mg oral tablet, See Instructions fluticasone 50 mcg/inh nasal spray, 2 sprays, Nasal, Daily Keppra 500 mg oral tablet, 500 mg= 1 tab, Oral, every morning levETIRAcetam 1000 mg oral tablet, 1000 mg= 1 tab, Oral, every night at bedtime lisinopril 40 mg oral tablet, 1 tab, [...] vaccine 08/14/2012 Recorded Comments : Unit: Unknown Lab Results Test Name Test Result Date/Time WBC 6.6 K/mcL 08/09/2022 11:44 EDT Hgb 13.7 g/dL 08/09/2022 11:44 EDT Sodium Level 138 mmol/L 08/09/2022 11:44 EDT Potassium Level 3.9 mmol/L 08/09/2022 11:44 EDT Creatinine Level 0.80 mg/dL 08/09/2022 11:44 EDT Electronically Signed on 08/15/22 02:10 PM Stefany Hopkins MD Patient Care team information Care Team Personnel Name: Medardo Sargent DO Position: Physician Member Role: Primary Care Physician Address: Address: [address] [place] [phone] [place] Care Team Related Persons Name: GASPER LEDESMA Name: LEI BLACK
--- OUTSIDE RECORDS SUMMARY | 2024-01-13 19:02 | XMS_ITS | Continuity of Care Document ---
Author Organization [facility] Ambulatory Clinics Address [address] [place] [address] Care Team Providers Care Grants Administrator Name Role Phone Medardo Saregnt DO Primary Care Physician Encounter [facility] NBR [id number] Date(s): 07/31/22 - 07/31/22 [facility] Ambulatory Clinics [address] [place] [address]- Encounter Diagnosis Allergic rhinitis(Discharge Diagnosis) - 07/31/22 Environmental allergies(Discharge Diagnosis) - 07/31/22 Discharge Disposition: Home or Self Care Attending Physician: Dion Maravilla DO Allergies, Adverse Reactions, Alerts Substance Reaction Severity Status acetaminophen-oxycodone palpitations Severe Acti ve Emgality 1 Headache Moderate Active 1300 MG dose, worsening headaches. Assessment and Plan Extracted from: Title:allergy serum mix Author:YUE Payan Date:07/31/22 Assessment Vial mixed per allergy order for allergy IT. See scanned doc. for allergy order. . Plan Diagnosis: Environmental allergies ([id number] Z91.09, Discharge, Medical). Orders Ambulatory Procedures: [id number] Preparation and provision of antigens for allergen immunotherapy; single or multiple antigens (Order): 07/31/2022 8:22 EDT, Environmental allergies, 5 Medications !-Augmentin 875 mg-125 mg oral tablet 1 tab, Oral, every 12 hr, # 20 tab, 0 Refill(s), Pharmacy: [id number] Start Date: 07/24/22 Stop Date: 08/03/22 Status: Ordered busPIRone 5 mg oral tablet 2 tab, Oral, TID, # 540 tab, 0 Refill(s), Pharmacy: [facility] Start Date: 07/27/22 Status: Ordered citalopram 40 mg oral tablet See Instructions, Take 1 tablet by mouth once daily, # 90 tab, 3 Refill(s), Pharmacy: [facility] Start Date: 07/09/22 Status: Ordered fluticasone 50 mcg/inh nasal spray 2 sprays, Nasal, Daily, # 16 g, 5 Refill(s), Pharmacy: [facility]389 Start Date: 03/19/22 Status: Ordered levETIRAcetam 1000 mg oral tablet 180 EA, TAKE 1 TABLET BY MOUTH EVERY 12 HOURS, 0 Refill(s) Start Date: 02/15/22 Status: Ordered lisinopril 40 mg oral tablet 1 tab, Oral, Daily, # 90 tab, 3 Refill(s), Pharmacy: [facility] Start Date: 07/19/22 Status: Ordered LORazepam 1 mg oral tablet 1 mg = 1 tab, Oral, every 6 hr, PRN as needed for anxiety, # 15 tab, 1 Refill(s), Pharmacy: [place] [id number] Start Date: 06/18/22 Stop Date: 06/26/22 Status: Ordered pantoprazole 40 mg oral delayed release tablet 40 mg = 1 tab, Oral, Daily, # 90 tab, 3 Refill(s), Pharmacy: [place] [address] Start Date: 05/24/22 Stop Date: 05/19/23 Status: [...] daily, # 180 tab, 3 Refill(s), Pharmacy: [facility] 438 Start Date: 05/07/22 Status: Ordered Problem List [...] Physician Outpatient Note * YUE Payan: PERFORM, SIGN, VERIFY Event Display: Office Clinic Note Physician Authored Date: Patient: CAMILA LEDESMA Age: 36 years Sex: Female : 1985 Associated Diagnoses: Environmental allergies Author: YUE Payan Chief Complaint Allergy Serum mixing for allergy immunotherapy Visit Information 5mL Vial mixed per allergy orders for allergy IT. Medications Include (Selected) Prescriptions Prescribed !-Augmentin 875 mg-125 mg oral tablet: 1 tab, Oral, every 12 hr, for 10 days, 20 tab, 0 Refill(s) LORazepam 1 mg oral tablet: 1 mg = 1 tab, Oral, every 6 hr, for 4 days, PRN: as needed for anxiety,15 tab, 1 Refill(s) busPIRone 5 mg oral tablet: 2 tab, Oral, TID, 540 tab, 0 Refill(s) citalopram 40 mg oral tablet: See Instructions, Take 1 tablet by mouth once daily, 90 tab, 3 Refill(s) fluticasone 50 mcg/inh nasal spray: 2 sprays, Nasal, Daily, 16 g, 5 Refill(s) lisinopril 40 mg oral tablet: 1 tab, Oral, Daily, 90 tab, 3 Refill(s) pantoprazole 40 mg oral delayed release tablet: 40 mg = 1 tab, Oral, Daily, for 90 days, 90 tab, 3 Refill(s) topiramate 100 mg oral tablet: See Instructions, Take 1 tablet by mouth twice daily, 180 tab, 3 Refill(s) Documented Medications Documented SUMAtriptan 100 mg oral tablet: 9 EA, TAKE 1 TABLET BY MOUTH EVERY 24 HOURS NEEDED FOR HEADACHE - MAY REPEAT AFTER 2 HOURS - USE A DIRECTED - FOR 30 DAYS, 0 Refill(s) levETIRAcetam 1000 mg oral tablet: 180 EA, TAKE 1 TABLET BY MOUTH EVERY 12 HOURS, 0 Refill(s) pyridoxine 100 mg oral tablet: 100 mg = 1 tab, Oral, Daily, for 90 days, 90 tab, 0 Refill(s). 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 Results Review Radiology results Provider comments Assessment Vial mixed per allergy order for allergy IT. See scanned doc. for allergy order. . Plan Diagnosis: Environmental allergies (XKQ29-EP Z91.09, Discharge, Medical). Orders Ambulatory Procedures: [id number] Preparation and provision of antigens for allergen immunotherapy; single or multiple antigens(Order): 07/31/2022 8:22 EDT, Environmental allergies, 5 Electronically Signed on 07/31/22 11:09 AM YUE Payan Patient Care team information Care Team Personnel Name: Medardo Sargent DO Position: Physician Member Role: Primary Care Physician Address: Address: [address] [place] [phone] [place] Care Team Related Persons Name: GASPER LEDESMA Name: LEI BLACK
--- OUTSIDE RECORDS SUMMARY | 2024-01-13 19:02 | XMS_ITS | Continuity of Care Document ---
Author Organization [facility] Ambulatory Clinics Address [address] [place] [address] Care Team Providers Care Dermatology Nurse Practitioner Name Role Phone Medardo Sargent DO Primary Care Physician Encounter [facility] [facility] NBR [id number] Date(s): 05/22/22 - 05/22/22 [facility] Ambulatory Clinics [address] [place], [place] [address] Encounter Diagnosis Allergic rhinitis(Discharge Diagnosis) - 05/22/22 Discharge Disposition: Home or Self Care Attending Physician: Dion Maravilla DO Allergies, Adverse Reactions, Alerts Substance Reaction Severity Status acetaminophen-oxycodone palpitations Severe Acti ve Emgality 1 Headache Moderate Active 1300 MG dose, worsening headaches. Assessment and Plan Future Appointments Medications !-Augmentin 875 mg-125 mg oral tablet 1 tab, Oral, every 12 hr, # 20 tab, 0 Refill(s), Pharmacy: [facility] Start Date: 02/20/22 Stop Date: 03/02/22 Status: Ordered busPIRone 5 mg oral tablet 10 mg = 2 tab, Oral, TID, # 540 tab, 1 Refill(s), [facility] Start Date: 12/05/21 Stop Date: 06/03/22 Status: Ordered citalopram 40 mg oral tablet 90 EA, TAKE 1 TABLET BY MOUTH ONCE DAILY, 0 Refill(s) Start Date: 02/15/22 Status: Ordered fluticasone 50 mcg/inh nasal spray 2 sprays, Nasal, Daily, # 16 g, 5 Refill(s), Pharmacy: [facility] 4389 Start Date: 03/19/22 Status: Ordered levETIRAcetam 1000 mg oral tablet 180 EA, TAKE 1 TABLET BY MOUTH EVERY 12 HOURS, 0 Refill(s) Start Date: 02/15/22 Status: Ordered lisinopril 40 mg oral tablet 1 tab, Oral, Daily, # 90 tab, 1 Refill(s), Pharmacy: [facility] 4389 Start Date: 11/26/21 Status: Ordered LORazepam 1 mg oral tablet 1 mg = 1 tab, Oral, every 6 hr, PRN as needed for anxiety, # 15 tab, 1 Refill(s), [facility] Start Date: 12/18/21 Stop Date: 12/26/21 [...] daily, # 180 tab, 3 Refill(s), Pharmacy: [facility] 4[facility] Start Date: 05/07/22 [...] Member Role: Primary Care Physician Address: Address: [address] [place] [phone] [place] Care Team Related Persons Name: GASPER LEDESMA Name: LEI BLACK
--- OUTSIDE RECORDS SUMMARY | 2024-01-13 19:02 | XMS_ITS | Continuity of Care Document ---
Author Organization [facility] Ambulatory Clinics Address [address] [place] [address] Care Team Providers Care Medical Associate Name Role Phone Medardo Sargent DO Primary Care Physician Encounter [facility] FIN NBR [id number] Date(s): 04/10/22 - 04/10/22 [facility] Ambulatory Clinics [address] [place], [place] [address] Encounter Diagnosis Allergic rhinitis(Discharge Diagnosis) - 04/10/22 Discharge Disposition: Home or Self Care Attending Physician: Dion Maravilla DO Allergies, Adverse Reactions, Alerts Substance Reaction Severity Status acetaminophen-oxycodone palpitations Severe Acti ve Emgality 1 Headache Moderate Active 1300 MG dose, worsening headaches. Assessment and Plan Future Appointments Medications !-Augmentin 875 mg-125 mg oral tablet 1 tab, Oral, every 12 hr, # 20 tab, 0 Refill(s), Pharmacy: [facility] Start Date: 02/20/22 Stop Date: 03/02/22 Status: Ordered busPIRone 5 mg oral tablet 10 mg = 2 tab, Oral, TID, # 540 tab, 1 Refill(s), [facility] Start Date: 12/05/21 Stop Date: 06/03/22 Status: Ordered citalopram 40 mg oral tablet 90 EA, TAKE 1 TABLET BY MOUTH ONCE DAILY, 0 Refill(s) Start Date: 02/15/22 Status: Ordered fluticasone 50 mcg/inh nasal spray 2 sprays, Nasal, Daily, # 16 g, 5 Refill(s), Pharmacy: [facility] 4389 Start Date: 03/19/22 Status: Ordered levETIRAcetam 1000 mg oral tablet 180 EA, TAKE 1 TABLET BY MOUTH EVERY 12 HOURS, 0 Refill(s) Start Date: 02/15/22 Status: Ordered lisinopril 40 mg oral tablet 1 tab, Oral, Daily, # 90 tab, 1 Refill(s), Pharmacy: [facility] 4389 Start Date: 11/26/21 Status: Ordered LORazepam 1 mg oral tablet 1 mg = 1 tab, Oral, every 6 hr, PRN as needed for anxiety, # 15 tab, 1 Refill(s), [facility] Start Date: 12/18/21 Stop Date: 12/26/21 [...] Member Role: Primary Care Physician Address: Address: [address] [place] [phone] [place] Care Team Related Persons Name: GASPER LEDESMA Name: LEI BLACK
--- OUTSIDE RECORDS SUMMARY | 2024-01-13 19:02 | XMS_ITS | Continuity of Care Document ---
Author Organization [facility] Ambulatory Clinics Address [address] [place] [address] Care Team Providers Care Airport Operations Specialist Name Role Phone Medardo Sargent DO Primary Care Physician [phone] Encounter [facility] NBR [id number] Date(s): 06/12/22 - 06/12/22 [facility] Ambulatory Clinics [address] [place], [place] [address] Encounter Diagnosis Allergic rhinitis(Discharge Diagnosis) - 06/12/22 Discharge Disposition: Home or Self Care Attending Physician: Dion Maravilla DO Allergies, Adverse Reactions, Alerts Substance Reaction Severity Status acetaminophen-oxycodone palpitations Severe Acti ve Emgality 1 Headache Moderate Active 1300 MG dose, worsening headaches. Assessment and Plan Future Appointments Medications !-Augmentin 875 mg-125 mg oral tablet 1 tab, Oral, every 12 hr, # 20 tab, 0 Refill(s), Pharmacy: [facility] 4[facility] Start Date: 02/20/22 Stop Date: 03/02/22 Status: Ordered busPIRone 5 mg oral tablet 10 mg = 2 tab, Oral, TID, # 540 tab, 1 Refill(s), [facility] Start Date: 12/05/21 Stop Date: 06/03/22 Status: Ordered citalopram 40 mg oral tablet 90 EA, TAKE 1 TABLET BY MOUTH ONCE DAILY, 0 Refill(s) Start Date: 02/15/22 Status: Ordered fluticasone 50 mcg/inh nasal spray 2 sprays, Nasal, Daily, # 16 g, 5 Refill(s), Pharmacy: [facility] 4389 Start Date: 03/19/22 Status: Ordered levETIRAcetam 1000 mg oral tablet 180 EA, TAKE 1 TABLET BY MOUTH EVERY 12 HOURS, 0 Refill(s) Start Date: 02/15/22 Status: Ordered lisinopril 40 mg oral tablet 1 tab, Oral, Daily, # 90 tab, 1 Refill(s), Pharmacy: [facility] 4389 Start Date: 11/26/21 Status: Ordered LORazepam 1 mg oral tablet 1 mg = 1 tab, Oral, every 6 hr, PRN as needed for anxiety, # 15 tab, 1 Refill(s), [facility] Start Date: 12/18/21 Stop Date: 12/26/21 Status: Ordered pantoprazole 40 mg oral delayed release tablet 40 mg = 1 tab, Oral, Daily, # 90 tab, 3 Refill(s), Pharmacy: [facility] 4389 Start Date: 05/24/22 Stop Date: [...] daily, # 180 tab, 3 Refill(s), Pharmacy: [facility] 4389 Start Date: 05/07/22 Status: Ordered [...] Member Role: Primary Care Physician Address: Address: [address] [place] [phone] [place] Care Team Related Persons Name: GASPER LEDESMA Name: LEI BLACK
--- OUTSIDE RECORDS SUMMARY | 2024-01-13 19:02 | XMS_ITS | Continuity of Care Document ---
Author Organization [facility] Ambulatory Clinics Address [address] [place] [address] Care Team Providers Care Day Care Assistant Name Role Phone Medardo Sargent DO Primary Care Physician Encounter [facility] [facility] NBR [id number] Date(s): 06/04/23 - 06/04/23 [facility] Ambulatory Clinics [address] [place] [address] [place] Discharge Disposition: Home Allergies, Adverse Reactions, Alerts [...] Unknown apparent error based on age/dates Medications amoxicillin-clavulanate 875 mg-125 mg oral tablet 1 tab, Oral, every 12 hr, # 20 tab, 0 Refill(s), Pharmacy: [facility], 167.6, cm, 05/16/23 10:00:00 EDT, Height, 132.8, kg, 05/16/23 10:08:00 EDT, Weight Dosing Start Date: 06/05/23 Stop Date: 06/15/23 Status: Ordered busPIRone 5 mg oral tablet 2 tab, Oral, TID, # 540 tab, 3 Refill(s), Pharmacy: [place] [id number], 168, cm, 09/13/22 9:44:00 EDT, Height/Length Dosing, 130, kg, 09/13/22 9:44:00 EDT, Weight Dosing Start Date: 10/31/22 Status: Ordered citalopram 40 mg oral tablet 40 mg = 1 tab, Oral, Daily, # 90 tab, 3 Refill(s), Pharmacy: [facility] Start Date: 07/09/22 Status: Ordered fexofenadine 180 mg oral tablet 180 mg = 1 tab, Oral, Daily, # 30 tab, 0 Refill(s), Pharmacy: [place] [address], 168, cm, 09/13/22 9:44:00 EDT, Height/Length Dosing, 130, kg, 09/13/22 9:44:00 EDT, Weight Dosing Start Date: 10/19/22 Status: Ordered fluticasone 50 mcg/inh nasal spray 2 sprays, Nasal, Daily, # 16 g, 5 Refill(s), Pharmacy: [facility] Start Date: 03/19/22 Status: Ordered lisinopril 40 mg oral tablet 1 tab, Oral, Daily, # 90 tab, 3 Refill(s), Pharmacy: [facility] Start Date: 07/19/22 Status: Ordered LORazepam 1 mg oral tablet 1 mg = 1 tab, Oral, every 6 hr, PRN as needed for anxiety, # 15 tab, 1 Refill(s), Pharmacy: [place] [address], 167.6, cm, 05/16/23 10:00:00 EDT, Height, 132.8, kg, 05/16/23 10:08:00 EDT, Weight Dosing Start Date: 05/16/23 Stop Date: 05/24/23 Status: Ordered Nurtec ODT 75 mg oral tablet, disintegrating 15 EA, 0 Refill(s), DISSOLVE 1 TABLET BY MOUTH EVERY OTHER DAY, 0 Refill(s) Start Date: 05/16/23 Status: Ordered pantoprazole 40 mg oral delayed release tablet 1 tab, Oral, Daily, # 90 tab, 3 Refill(s), Pharmacy: [facility], 167.6, cm, 05/16/23 10:00:00 EDT, Height, 132.8, kg, 05/16/23 10:08:00 EDT, Weight Dosing Start Date: 05/21/23 Stop Date: 08/19/23 Status: Ordered pyridoxine 100 mg oral tablet 100 mg = 1 tab, Oral, Daily, # 90 tab, 0 Refill(s) Start Date: 02/15/22 Stop Date: 05/16/22 Status: Ordered Singulair 10 mg oral tablet 10 mg = 1 tab, Oral, Daily, # 90 tab, 0 Refill(s), Pharmacy: [facility], 168, cm, 09/13/22 9:44:00 EDT, Height/Length Dosing, 130, kg, 09/13/22 9:44:00 EDT, Weight Dosing Start Date: 10/19/22 Status: Ordered SUMAtriptan 100 mg oral tablet 1 tab, Oral, every 24 hr, PRN NEEDED FOR HEADACHE,MAY REPEAT AFTER 2 HOURS (USE DIRECTED) FOR, # 9 tab, 12 Refill(s), Pharmacy: [facility], 168, cm, 09/13/22 9:44:00 EDT, Height/Length Dosing, 130, kg, 09/13/22 9:44:00 EDT, Weight Dosing Start Date: 11/28/22 Stop Date: 12/28/22 Status: Ordered topiramate 100 mg oral tablet 100 mg = 1 tab, Oral, BID, # 180 tab, 3 Refill(s), Pharmacy: [facility] 4389, 167.6, cm, 05/16/23 10:00:00 EDT, Height, 132.8, kg, 05/16/23 10:08:00 EDT, Weight Dosing Start Date: 05/16/23 Status: Ordered Problem List Condition Confirmation Course [...] Member Role: Primary Care Physician Address: Address: [address] [place] [phone] [place] Care Team Related Persons Name: GASPER LEDESMA Name: LEI BLACK
--- OUTSIDE RECORDS SUMMARY | 2024-01-13 19:02 | XMS_ITS | Continuity of Care Document ---
Author Organization [facility] Ambulatory Clinics Address [address] [place] [address] Care Team Providers Care Teaching Fellow Name Role Phone Medardo Sargent DO Primary Care Physician Encounter [facility] NBR [id number] Date(s): 01/23/22 - 01/23/22 [facility] Ambulatory Clinics [address] [place] [address] Encounter Diagnosis Allergic rhinitis due to pollen(Discharge Diagnosis) - 01/23/22 Discharge Disposition: Home or Self Care Attending Physician: Dion Maravilla DO Assessment and Plan Future Appointments Medications busPIRone 5 mg oral tablet 10 mg = 2 tab, Oral, TID, # 540 tab, 1 Refill(s), Pharmacy: [facility]389 Start Date: 12/05/21 Stop Date: 06/03/22 Status: Ordered lisinopril 40 mg oral tablet 1 tab, Oral, Daily, # 90 tab, 1 Refill(s), Pharmacy: [facility] Start Date: 11/26/21 Status: Ordered LORazepam 1 mg oral tablet 1 mg = 1 tab, Oral, every 6 hr, PRN as needed for anxiety, # 15 tab, 1 Refill(s), [facility] Start Date: 12/18/21 Stop Date: 12/26/21 Status: Ordered Problem List Condition Confirmation Course Effective Dates Status [facility] Informant Allergic rhinitis due to pollen Confirmed Active Patient Care team information Personnel Name: Medardo Sargent DO Address: Address: [address] [place] [phone] [place]
--- OUTSIDE RECORDS SUMMARY | 2024-01-13 19:02 | XMS_ITS | Continuity of Care Document ---
Author Organization [facility] Ambulatory Clinics Address [address] [place] [address] Care Team Providers Care Project Scheduler Name Role Phone Medardo Sargent DO Primary Care Physician Encounter [facility] NBR [id number] Date(s): 02/20/22 - 02/20/22 [facility] Ambulatory Clinics [address] [place], [place] [address] Discharge Disposition: Home or Self Care Attending Physician: Dion Maravilla DO Allergies, Adverse Reactions, Alerts Substance Reaction Severity Status acetaminophen-oxycodone palpitations Severe Acti ve Emgality 1 Headache Moderate Active 1300 MG dose, worsening headaches. Assessment and Plan Future Appointments Medications !-Augmentin 875 mg-125 mg oral tablet 1 tab, Oral, every 12 hr, # 20 tab, 0 Refill(s), Pharmacy: [facility] 4389 Start Date: 02/20/22 Stop Date: 03/02/22 Status: Ordered busPIRone 5 mg oral tablet 10 mg = 2 tab, Oral, TID, # 540 tab, 1 Refill(s), Pharmacy: [facility] 4389 Start Date: 12/05/21 [...] Daily, # 90 tab, 1 Refill(s), Pharmacy: [facility] 4389 Start Date: 11/26/21 Status: Ordered LORazepam 1 mg oral tablet 1 mg = 1 tab, Oral, every 6 hr, PRN as needed for anxiety, # 15 tab, 1 Refill(s), Pharmacy: [facility] Start Date: 12/18/21 Stop Date: 12/26/21 [...] Personnel Name: Medardo Sargent DO Address: Address: [address] [place] [phone]
--- OUTSIDE RECORDS SUMMARY | 2024-01-13 19:02 | XMS_ITS | Continuity of Care Document ---
Author Organization [facility] Ambulatory Clinics Address [address] [place] [address] Care Team Providers Care Food Service Specialist Name Role Phone Medardo Sargent DO Primary Care Physician Encounter [facility] NBR [id number] Date(s): 02/15/22 - 02/15/22 [facility] Ambulatory Clinics [address] [place], [place] [address] Encounter Diagnosis Allergic rhinitis(Discharge Diagnosis) - 02/15/22 Discharge Disposition: Home or Self Care Attending Physician: Dion Maravilla DO Allergies, Adverse Reactions, Alerts Substance Reaction Severity Status acetaminophen-oxycodone palpitations Severe Acti ve Emgality 1 Headache Moderate Active 1300 MG dose, worsening headaches. Assessment and Plan Future Appointments Medications busPIRone 5 mg oral tablet 10 mg = 2 tab, Oral, TID, # 540 tab, 1 Refill(s), Pharmacy: [facility] 4389 Start Date: 12/05/21 Stop Date: 06/03/22 Status: Ordered citalopram 40 mg oral tablet 90 EA, TAKE 1 TABLET BY MOUTH ONCE DAILY, 0 Refill(s) Start Date: 02/15/22 Status: Ordered Diflucan 100 mg oral tablet 100 mg = 1 tab, Oral, every 72 hr, # 60 tab, 0 Refill(s) Start Date: 02/15/22 Stop Date: 03/17/22 Status: Ordered fluticasone 50 mcg/inh nasal spray 16 g, USE 2 SPRAY(S) IN EACH NOSTRIL ONCE DAILY, 0 Refill(s) Start Date: 02/15/22 Status: Ordered levETIRAcetam 1000 mg oral tablet 180 EA, TAKE 1 TABLET BY MOUTH EVERY 12 HOURS, 0 Refill(s) Start Date: 02/15/22 Status: Ordered lisinopril 40 mg oral tablet 1 tab, Oral, Daily, # 90 tab, 1 Refill(s), Pharmacy: [facility] 4389 Start Date: 11/26/21 Status: Ordered LORazepam 1 mg oral tablet 1 mg = 1 tab, Oral, every 6 hr, PRN as needed for anxiety, # 15 tab, 1 Refill(s), [facility] Start Date: 12/18/21 Stop [...] Seizure Confirmed Active Severe obesity Confirmed Active Patient Care team information Personnel Name: Medardo Sargent DO Address: Address: [address] [place] [phone]
--- OUTSIDE RECORDS SUMMARY | 2024-01-13 19:02 | XMS_ITS | Continuity of Care Document ---
Author Organization [facility] Ambulatory Clinics Address [address] [place] [address] Care Team Providers Care Devops Architect Name Role Phone Medardo Sargent DO Primary Care Physician Encounter [facility] NBR [id number] Date(s): 07/24/22 - 07/24/22 [facility] Ambulatory Clinics [address], [place] [address] Encounter Diagnosis Allergic rhinitis(Discharge Diagnosis) - 07/24/22 Discharge Disposition: Home or Self Care Attending Physician: Dion Maravilla DO Allergies, Adverse Reactions, Alerts Substance Reaction Severity Status acetaminophen-oxycodone palpitations Severe Acti ve Emgality 1 Headache Moderate Active 1300 MG dose, worsening headaches. Assessment and Plan Future Appointments Medications !-Augmentin 875 mg-125 mg oral tablet 1 tab, Oral, every 12 hr, # 20 tab, 0 Refill(s), Pharmacy: [id number] Start Date: 07/24/22 Stop Date: 08/03/22 Status: Ordered busPIRone 5 mg oral tablet 10 mg = 2 tab, Oral, TID, # 540 tab, 1 Refill(s), Pharmacy: [id number] Start Date: 12/05/21 Stop Date: 06/03/22 Status: Ordered citalopram 40 mg oral tablet See Instructions, Take 1 tablet by mouth once daily, # 90 tab, 3 Refill(s), Pharmacy: [id number] Start Date: 07/09/22 Status: Ordered fluticasone 50 mcg/inh nasal spray 2 sprays, Nasal, Daily, # 16 g, 5 Refill(s), Pharmacy: [id number] Start Date: 03/19/22 Status: Ordered levETIRAcetam 1000 mg oral tablet 180 EA, TAKE 1 TABLET BY MOUTH EVERY 12 HOURS, 0 Refill(s) Start Date: 02/15/22 Status: Ordered lisinopril 40 mg oral tablet 1 tab, Oral, Daily, # 90 tab, 3 Refill(s), Pharmacy: [id number] Start Date: 07/19/22 Status: Ordered LORazepam 1 mg oral tablet 1 mg = 1 tab, Oral, every 6 hr, PRN as needed for anxiety, # 15 tab, 1 Refill(s), Pharmacy: [id number] Start Date: 06/18/22 Stop Date: 06/26/22 Status: Ordered pantoprazole 40 mg oral delayed release tablet 40 mg = 1 tab, Oral, Daily, # 90 tab, 3 Refill(s), Pharmacy: [id number] Start Date: 05/24/22 [...] daily, # 180 tab, 3 Refill(s), Pharmacy: [id number] Start Date: 05/07/22 [...] Role: Primary Care Physician Address: Address: [address] [place] [id number] [place] Care Team Related Persons Name: GASPER LEDESMA Name: LEI BLACK
--- OUTSIDE RECORDS SUMMARY | 2024-01-13 19:02 | XMS_ITS | Continuity of Care Document ---
Author Organization [facility] Ambulatory Clinics Address [address] [place] [address] Care Team Providers Care Maintenance Manager Name Role Phone Medardo Sargent DO Primary Care Physician [phone] Encounter [facility] NBR [id number] Date(s): 11/28/21 - 11/28/21 [facility] Ambulatory Clinics [address] [place] [address] Discharge Disposition: Home or Self Care Attending Physician: Dion Maravilla DO Assessment and Plan Future Appointments Medications lisinopril 40 mg oral tablet 1 tab, Oral, Daily, # 90 tab, 1 Refill(s), Pharmacy: [id number] Start Date: 11/26/21 Status: Ordered Problem List Condition Confirmation Course Effective Dates Status Health [facility] Informant Allergic rhinitis due to pollen Confirmed Active Patient Care team information Personnel Name: Medardo Sargent DO Address: Address: [address] [place] [id number]
--- OUTSIDE RECORDS SUMMARY | 2024-01-13 19:02 | XMS_ITS | Continuity of Care Document ---
Author Organization [facility] Address [address] [place] [address] Care Team Providers Care Administrative Project Coordinator Name Role Phone Medardo Sargent DO Primary Care Physician [phone] Encounter [facility] FIN NBR [id number] Date(s): 09/13/22 - 09/13/[address] [address]- Encounter Diagnosis Headache(Discharge Diagnosis) - 09/13/22 Seizure-like activity(Discharge Diagnosis) - 09/13/22 Discharge Disposition: Home or Self Care Attending Physician: Robert Napier MD Admitting Physician: Robert Napier MD Allergies, Adverse Reactions, Alerts Substance Reaction [...] daily, # 90 tab, 3 Refill(s), Pharmacy: [id number] Start Date: 07/09/22 Status: Ordered fluticasone 50 mcg/inh nasal spray 2 sprays, Nasal, Daily, # 16 g, 5 Refill(s), Pharmacy: [facility] [id number] Start Date: 03/19/22 Status: Ordered levETIRAcetam 1000 mg oral tablet 1 tab, Oral, every night at bedtime, # 90 tab, 0 Refill(s), Pharmacy: [facility] [id number], 167, cm, 08/09/22 11:40:00 EDT, Height/Length Dosing, 130, kg, 08/09/22 11:40:00 EDT, Weight Dosing Start Date: 08/17/22 Status: Ordered levETIRAcetam 500 mg oral tablet 500 mg = 1 tab, Oral, every morning, # 90 tab, 1 Refill(s), Pharmacy: [facility] [id number], 167, cm, 08/09/22 11:40:00 EDT, Height/Length Dosing, 130, kg, 08/09/22 11:40:00 EDT, Weight Dosing Start Date: 08/17/22 Status: Ordered lisinopril 40 mg oral tablet 1 tab, Oral, Daily, # 90 tab, 3 Refill(s), Pharmacy: [facility] [id number] Start Date: 07/19/22 Status: Ordered LORazepam 1 mg oral tablet 1 mg = 1 tab, Oral, every 6 hr, PRN as needed for anxiety, # 15 tab, 1 Refill(s), Pharmacy: [facility] [id number], 167, cm, 08/09/22 11:40:00 EDT, Height/Length Dosing, 130, kg, 08/09/22 11:40:00 EDT, Weight Dosing Start Date: 08/15/22 Stop Date: 08/23/22 Status: Ordered pantoprazole 40 mg oral delayed release tablet 40 mg = 1 tab, Oral, Daily, # 90 tab, 3 Refill(s), Pharmacy: [facility] [id number] Start Date: 05/24/22 Stop Date: 05/19/23 Status: Ordered prochlorperazine 10 mg oral tablet 10 mg = 1 tab, Oral, TID, X 7 days, # 21 tab, 0 Refill(s), 09/20/22 12:59:00 EDT, [id number], cm, 09/13/22 9:44:00 EDT, Height/Length Dosing, 130, kg, 09/13/22 9:44:00 EDT, Weight Dosing Start Date: 09/13/22 Stop Date: 09/20/22 Status: Ordered pyridoxine 100 mg oral tablet [...] DAYS, # 9 tab, 1 Refill(s), Pharmacy: [id number], 167, cm, 08/09/22 11:40:00 EDT, Height/John... Start Date: 08/15/22 Status: Ordered topiramate 100 mg oral tablet See Instructions, Take 1 tablet by mouth twice daily, # 180 tab, 3 Refill(s), Pharmacy: [id number] Start Date: 05/07/22 Status: Ordered Mental Status 09/13/22 Eye Opening Response Nathan Spontaneous ly Best Verbal Response Nathan Oriented Best Motor Response Nathan Obeys comman ds [place] Coma Score 15 Problem List Condition Confirmation [...] wandering eye Results Laboratory List Name Date Alcohol Lvl (ETOH Level) 09/13/22 CBC w/ Diff 09/13/22 Comprehensive Metabolic Panel (CMP) 09/13 Lipase Level 09/13/22 Magnesium Level 09/13/22 Prolactin Level 09/13/22 Glucose POCT 09/13/22 Automated Diff 09/13/22 Most recent to oldest [Reference Range]: 1 WBC [4.8-10.8 K/mcL] 7.8 K/mcL (09/13/22 9:50 AM) RBC [4.20-5.40 Million/mcL] 4.60 Million /mcL (09/13/22 9:50 AM) Neutro Auto [42.2-75.2 %] 56.8 % (09/13/22 9:50 AM) Lymph Auto [20.5-51.1 %] 33.0 % (09/13/22 9:50 AM) [place] Auto [1.7-9.3 %] 7.7 % (09/13/22 9:50 AM) Basophil Auto [0.0-0.8 %] 0.5 % (09/13/22 9:50 AM) BUN [8-26 mg/dL] 7 mg/dL *LOW* (09/13/22 9:50 AM) Glucose POC 126 *NA* (09/13/22 9:46 AM) Glucose Level [74-106 mg/dL] 112 mg/dL *HI* (09/13/22 9:50 AM) Potassium Level [3.5-5.1 mmol/L] 3.8 mmo l/L (09/13/22 9:50 AM) Baso Absolute [0.0-0.2 K/mcL] 0.0 K/mcL (09/13/22 9:50 AM) MCV [81.0-99.0 fL] 90.7 fL (09/13/22 9:50 AM) AST [15-41 IntlUnit/L] 25 IntlUnit/L (09/13/22 9:50 AM) ALT [14-54 IntlUnit/L] 34 IntlUnit/L (09/13/22 9:50 AM) MCHC [32.0-36.0 g/dL] 33.1 g/dL (09/13/22 9:50 AM) Osmolality [275-295 mOsm/kg] 273 mOsm/kg *LOW* (09/13/22 9:50 AM) Sodium Level [134-143 mmol/L] 137 mmol/L (09/13/22 9:50 AM) Lymph Absolute [1.2-3.4 K/mcL] 2.6 K/mcL (09/13/22 9:50 AM) Hct [37.0-47.0 %] 41.7 % (09/13/22 9:50 AM) Lipase Level [18-51 unit/L] 28 unit/L 1 (09/13/22 9:50 AM) Calcium Level [8.9-10.3 mg/dL] 9.3 mg/dL (09/13/22 9:50 AM) [place] Absolute [0.1-0.6 K/mcL] 0.6 K/mcL (09/13/22 9:50 AM) Albumin Level [3.5-5.0 g/dL] 4.1 g/dL (09/13/22 9:50 AM) Prolactin 14.27 ng/mL 2 *NA* (09/13/22 9:50 AM) Protein Total [6.5-8.1 g/dL] 7.5 g/dL (09/13/22 9:50 AM) MCH [27.0-31.0 pg] 30.0 pg (09/13/22 9:50 AM) Magnesium Level [1.8-2.5 mg/dL] 2.0 mg/d L (09/13/22 9:50 AM) Neutro Absolute [1.4-6.5 K/mcL] 4.5 K/mc L (09/13/22 9:50 AM) Bilirubin Total [0.2-1.2 mg/dL] 0.7 mg/d L (09/13/22 9:50 AM) Hgb [12.0-16.0 g/dL] 13.8 g/dL (09/13/22 9:50 AM) Alk Phos [38-130 IntlUnit/L] 53 IntlUnit /L (09/13/22 9:50 AM) MPV [7.4-10.4 fL] 10.2 fL (09/13/22 9:50 AM) Ethanol Level [0.00-0.08 g/dL] <0.00 g/d L (09/13/22 9:50 AM) Platelets [130-400 K/mcL] 286 K/mcL (09/13/22 9:50 AM) CO2 [22-32 mmol/L] 20 mmol/L *LOW* (09/13/22 9:50 AM) Eos Absolute [0.0-0.2 K/mcL] 0.1 K/mcL (09/13/22 9:50 AM) Chloride Level [98-111 mmol/L] 110 mmol/ L (09/13/22 9:50 AM) RDW-CV [11.5-14.5 %] 12.8 % (09/13/22 9:50 AM) A/G Ratio 1.2 *NA* (09/13/22 9:50 AM) BUN/Creat Ratio [8.0-20.0] 8.8 (09/13/22 9:50 AM) Globulin 3.4 *NA* (09/13/22 9:50 AM) Imm Gran Absolute 0.02 *NA* (09/13/22 9:50 AM) Imm Gran Auto [0.0-0.5 %] 0.3 % (09/13/22 9:50 AM) Slide Review Not Indicated (09/13/22 9:50 AM) Creatinine Level [0.44-1.00 mg/dL] 0.80 mg/dL (09/13/22 9:50 AM) Anion Gap [3.0-12.0] 7.0 (09/13/22 9:50 AM) Eos, Auto [0.00-3.00 %] 1.70 % (09/13/22 9:50 AM) Instr Ethanol Lvl [<=5 mg/dL] <5 mg/dL (09/13/22 9:50 AM) eGFR CKD-EPI [>=60 mL/min/1.73 m2] 97 mL /min/1.73 m2 (09/13/22 9:50 AM) 1Interpretive Data: D-rkykfj-a-benzoquinone imine (meabolite of Acetaminophen) will generate erroneously low lipase results in samples for patients that have taken toxic doses of acetaminophen. 2Interpretive Data: FEMALES: Premenopausal: 3.3 - 26.7 ng/mL, Post-menopausal: 2.7 - 19.6 ng/mL MALES: 2.6 - 13.1 ng/Ml Radiology Reports * Exam Date Time Procedure Performing Provider Status 09/13/22 10:[address] Angio Brain/Head Emanuel Arteaga (Verified) Notes: (CT Angio Brain/Head) Reason For Exam: mcgarry, sz; ? sah CT Angio Brain/Head EXAM DESCRIPTION: CT Angio Brain/Head 09/13/2022 INDICATION: MCGARRY, SZ; ? SAH TECHNIQUE: All CT exams at this facility use at least one of these dose optimization techniques: Automated exposure control; mA and/or kV adjustment per patient size (includes targeted exams where dose is matched to clinical indication); or iterative reconstruction. Thin slice helical CT images were obtained of the head with IV contrast for angiographic evaluation. Thin slab sagittal and coronal maximum intensity projection views and 3-D volume rendering were performed for further analysis and permanent images were stored. 100 cc of Isovue [address] contrast was utilized [address] head examination was performed in conjunction with CTA. COMPARISON: CT head without contrast from 08/09/2022 as well as outside facility MRI head without contrast from 11/16/2020 FINDINGS: No acute intracranial hemorrhage, mass effect or midline shift. Focal area of increased attenuation in the left frontal lobe without significant change from previous CT examination shown to represent parenchymal calcification on previous MRI head examination. No hydrocephalus. Chaves-white differentiation is maintained. Basal cisterns remain patent. The calvarium appears intact. Bilateral maxillary, ethmoid, sphenoid and left frontal sinus mucosal thickening. [place] internal carotid artery: Right petrous and cavernous ICA appear without significant stenosis. [place] anterior cerebral artery: No significant stenosis. [place] middle cerebral artery: No significant stenosis. [place] posterior cerebral artery: No significant stenosis. [place] vertebral artery: Distal right vertebral artery appears without significant stenosis or dissection. Left internal carotid artery: Left petrous and cavernous ICA appear without significant stenosis. Left anterior cerebral artery: No significant stenosis. Left middle cerebral artery: No significant stenosis. Left posterior cerebral artery: No significant stenosis. Left vertebral artery: Distal left vertebral artery appears without significant stenosis or dissection. Basilar artery: No significant stenosis. No aneurysm or AVM is identified. No evidence of dural venous sinus thrombosis No intracranial mass or abnormal enhancement. IMPRESSION: No large vessel occlusion or significant proximal intracranial arterial stenosis. No acute intracranial hemorrhage, mass effect or midline shift. Results telephoned to ER physician at the time of interpretation. JOB #: [id number] Final Signed by: Juan Rodriguez MD Signed (Electronic Signature): 09/13/2022 10:58 am * Exam Date Time Procedure Performing Provider Status 09/13/22 10:[address] Angio Neck Chandler, Caitlin; Auth (Verified) Notes: (CT Angio Neck) Reason For Exam: mcgarry/neck pain, sz; ? dissection CT Angio Neck EXAM DESCRIPTION: CT Angio Neck 09/13/2022 INDICATION: MCGARRY/NECK PAIN, SZ; ? DISSECTION TECHNIQUE: All CT exams at this facility use at least one of these dose optimization techniques: Automated exposure control; mA and/or kV adjustment per patient size (includes targeted exams where dose is matched to clinical indication); or iterative reconstruction. Thin slice helical CT images were obtained of the neck for angiographic evaluation. Thin slab sagittal and coronal maximum intensity projection views, MPR and 3-D volume rendering were performed for further analysis and permanent images were stored. Contrast: 100 cc of Isovue 370 COMPARISON: None FINDINGS: VASCULATURE: [place] common carotid artery: No significant stenosis or dissection. [place] internal carotid artery: No proximal right ICA stenosis. No significant stenosis or dissection involving the right cervical ICA. [place] external carotid artery: No significant stenosis. [place] cervical vertebral artery: No significant stenosis or dissection. Left common carotid artery: No significant stenosis or dissection. Left internal carotid artery: No proximal left ICA stenosis. No significant stenosis or dissection involving the left cervical ICA. Left external carotid artery: No significant stenosis. Left cervical vertebral artery: No significant stenosis or dissection. No mass or adenopathy in the visualized superior mediastinum. Visualized lung apices are clear. Small ovoid heterogeneous lesion involving anterior right thyroid lobe region. Otherwise no neck mass or adenopathy. No suspicious regional osseous lesions. IMPRESSION: No carotid bifurcation stenosis on either side. No cervical ICA stenosis or dissection on either side. No significant stenosis or dissection involving the cervical vertebral artery on either side Small heterogeneous lesion which appears to be arising from the anterior aspect of the right thyroid lobe. Nonemergent thyroid ultrasound correlation could be obtained. COMMENT: Reference per NASCET criteria for degree of stenosis: Mild: Less than 50% stenosis. Moderate: 50-69% stenosis. Severe: 70-94% stenosis. Near occlusion: 95-99% stenosis. JOB #: [id number] Final Signed by: Juan Rodriguez MD Signed (Electronic Signature): 09/13/2022 10:55 am Vital Signs Most recent to oldest [Reference Range]: 1 2 3 Temperature Temporal Artery [36-38 Deg C] 36 Deg C (09/13/22 9:34 AM) Peripheral Pulse Rate [60-100 bpm] 55 bpm *LOW* (09/13/22 1:00 PM) 54 bpm *LOW* (09/13/22 12:45 PM) 56 bpm *LOW* (09/13/22 12:30 PM) Heart Rate Monitored [60-100 bpm] 55 bpm *LOW* (09/13/22 1:00 PM) 55 bpm *LOW* (09/13/22 12:45 PM) 58 bpm *LOW* (09/13/22 12:30 PM) Respiratory Rate [12-24 br/min] 17 br/min (09/13/22 1:00 PM) 15 br/min (09/13/22 12:45 PM) 15 br/min (09/13/22 12:30 PM) Blood Pressure [90-140/60-90 mmHg] 127/86mmHg (09/13/22 1:00 PM) 132/87mmHg (09/13/22 12:45 PM) 135/76mmHg (09/13/22 12:30 PM) Mean Arterial Pressure Cuff 100 mmHg (09/13/22 1:00 PM) 99 mmHg (09/13/22 12:45 PM) 94 mmHg (09/13/22 12:30 PM) Weight 130.00 kg (09/13/22 9:34 AM) Weight Dosing 130.00 kg (09/13/22 9:44 AM) Height 168.000 cm (09/13/22 9:34 AM) Height/Length Dosing 168.000 cm (09/13/22 9:44 AM) Body Mass Index 46.000 kg/m2 (09/13/22 9:34 AM) Social History Social History Type Response Tobacco Never tobacco user T obacco Use:. Sex Hospital Discharge Instructions Patient Education 09/13/2022 12:04:28 General Headache Without Cause General Headache Without Cause A headache is pain or discomfort felt around the head or neck area. There are many causes and typesof headaches. A few common types include: ??? Tension headaches. ??? Migraine headaches. ??? Cluster headaches. ??? Chronic daily headaches. Sometimes, the specific cause of a headache may not be found. Follow these instructions at home: Watch your condition for any changes. Let your health care provider know about them. Take these steps to help with your condition: Managing pain ??? Take lnvz-ovu-hosykjf and prescription medicines only as told by your health care provider. Treatment may include medicines for pain that are taken by mouth or applied to the skin. ??? Lie down in a dark, quiet room when you have a headache. ??? Keep lights dim if bright lights bother you or make your headaches worse. ??? If directed, put ice on your head and neck area: ??? Put ice in a plastic bag. ??? Place a towel between your skin and the bag. ??? Leave the ice on for 20 minutes, 2???3 times per day. ??? Remove the ice if your skin turns bright red. This is very important. If you cannot feel pain, heat, or cold, you have a greater risk of damage to the area. ??? If directed, apply heat to the affected area. Use the heat source that your health care provider recommends, such as a moist heat pack or a heating pad. ??? Place a towel between your skin and the heat source. ??? Leave the heat on for 20???30 minutes. ??? Remove the heat if your skin turns bright red. This is especially important if you are unable to feel pain, heat, or cold. You have a greater risk of getting burned. Eating and drinking ??? Eat meals on a regular schedule. ??? If you drink alcohol: ??? Limit how much you have to: ??? 0???1 drink a day for women who are not . ??? 0???2 drinks a day for men. ??? Know how much alcohol is in a drink. In the [place] one drink equals one 12 oz bottle of beer (355 mL), one 5 oz glass of wine (148 mL), or one 1?? oz glass of hard liquor (44 mL). ??? Stop drinking caffeine, or decrease the amount of caffeine you drink. ??? Drink enough fluid to keep your urine pale yellow. General instructions ??? Keep a headache journal to help find out what may trigger your headaches. For example, write down: ??? What you eat and drink. ??? How much sleep you get. ??? Any change to your diet or medicines. ??? Try massage or other relaxation techniques. ??? Limit stress. ??? Sit up straight, and do not tense your muscles. ??? Do not use any products that contain nicotine or tobacco. These products include cigarettes, chewing tobacco, and vaping devices, such as e-cigarettes. If you need help quitting, ask your health care provider. ??? Exercise regularly as told by your health care provider. ??? Sleep on a regular schedule. Get 7???9 hours of sleep each night, or the amount recommended by your health care provider. ??? Keep all follow-up visits. This is important. Contact a health care provider if: ??? Medicine does not help your symptoms. ??? You have a headache that is different from your usual headache. ??? You have nausea or you vomit. ??? You have a fever. Get help right away if: ??? Your headache: ??? Becomes severe quickly. ??? Gets worse after moderate to intense physical activity. ??? You have any of these symptoms: ??? Repeated vomiting. ??? Pain or stiffness in your neck. ??? Changes to your vision. ??? Pain in an eye or ear. ??? Problems with speech. ??? Muscular weakness or loss of muscle control. ??? Loss of balance or coordination. ??? You feel faint or pass out. ??? You have confusion. ??? You have a seizure. These symptoms may represent a serious problem that is an emergency. Do not wait to see if the symptoms will go away. Get medical help right away. Call your local emergency services (911 in the [place] Do not drive yourself to the hospital. Summary ??? A headache is pain or discomfort felt around the head or neck area. ??? There are many causes and types of headaches. In some cases, the cause may not be found. ??? Keep a headache journal to help find out what may trigger your headaches. Watch your condition for any changes. Let your health care provider know about them. ??? Contact a health care provider if you have a headache that is different from the usual headache, or if your symptoms are not helped by medicine. ??? Get help right away if your headache becomes severe, you vomit, you have a loss of vision, you lose your balance, or you have a seizure. This information is not intended to replace advice given to you by your health care provider. Make sure you discuss any questions you have with your health care provider. Document Revised: 07/05/2021 Document Reviewed: 07/05/2021 [employer] Patient Education ?? 2022 [employer]. 09/13/2022 12:04:07 Non-Epileptic Seizures, Adult Non-Epileptic Seizures, Adult A non-epileptic seizure is an event that can cause abnormal movements or a loss of consciousness. These events differ from epileptic seizures because they are not caused by abnormal electrical and chemical activity in the brain. There are two types of non-epileptic seizures: ??? Physiologic. This type results from an underlying problem with body function. ??? Psychogenic. This type results from an underlying mental health disorder. What are the causes? The cause of this condition depends on the kind of non-epileptic seizure that you have. Causes of physiologic non-epileptic seizures ??? Sudden drop in blood pressure or heart rhythm problems. ??? Low blood sugar (glucose) or low levels of salt (sodium) in your blood. ??? Migraine. ??? Sleep disorders or movement disorders. ??? Certain medicines. ??? Heavy use of drugs or alcohol. ??? Head injuries. Causes of psychogenic non-epileptic seizures ??? Stress. ??? Emotional trauma. ??? Sexual or physical abuse. ??? Big life events, such as divorce or of a loved one. ??? Mental health disorders, including anxiety and depression. What are the signs or symptoms? Symptoms of a non-epileptic seizure can be similar to those of an epileptic seizure. They may include: ??? A change in attention or behavior. ??? A loss of consciousness or fainting. ??? Uncontrollable shaking (convulsions) with fast, jerking movements. ??? Drooling, tongue biting, or grunting. ??? Rapid eye movements. ??? Being unable to control when you urinate or have bowel movements. After a non-epileptic seizure, you may: ??? Have a headache or sore muscles. ??? Feel confused or sleepy. Non-epileptic seizures usually: ??? Do not cause physical injuries. ??? Start slowly. ??? Include crying or shrieking. ??? Last longer than 2 minutes. ??? Include pelvic thrusting. How is this diagnosed? Non-epileptic seizures may be diagnosed by medical history, physical exam, and symptoms. Your health care provider may: ??? Talk with your friends or relatives who have seen you have a seizure. ??? Ask you to write down your seizure activity and the things that led up to the seizure, and ask you to share that information with him or her. You may also have tests to look for causes of physiologic non-epileptic seizures. Tests may include: ??? An electroencephalogram (EEG) to check the electrical activity in your brain. ??? Video EEG in the hospital. This takes 2???7 days. ??? Blood tests. ??? An electrocardiogram (ECG) to check for an abnormal heart rhythm. ??? A CT scan. If your health care provider thinks you have had a psychogenic non-epileptic seizure, you may need to be evaluated by a mental health specialist. How is this treated? The treatment for your non-epileptic seizures will depend on their cause. When the underlying condition is treated, your non-epileptic seizures should stop. Medicines to treat seizures do not help with non-epileptic events. If your non-epileptic seizures are being caused by emotional trauma or stress, your health care provider may recommend that you see a mental health specialist. Treatment may include: ??? Relaxation therapy or cognitive behavioral therapy (CBT). ??? Medicines for depression or anxiety. ??? Individual or family counseling. Some people have both psychogenic non-epileptic seizures and epileptic seizures. If you have both of these types, you may be prescribed medicine to manage the epileptic seizures. Follow these instructions at home: Home care will depend on the type of non-epileptic seizures that you have. Follow this general guidance: Avoid alcohol and drug use Avoid using any substance that may prevent your medicine from working properly. If you are prescribed medicine for seizures: ??? Do not use drugs. ??? Limit or avoid drinking alcohol. If you drink alcohol: ??? Limit how much you have to: ??? 0???1 drink a day for women who are not . ??? 0???2 drinks a day for men. ??? Know how much alcohol is in your drink. In the [place] one drink equals one 12 oz bottle of beer (355 mL), one 5 oz glass of wine (148 mL), or one 1?? oz glass of hard liquor (44 mL). Involve family, friends, and coworkers Make sure family members, friends, and coworkers are trained in how to help you if you have a seizure. If you have a seizure, they should: ??? Lay you on the ground to prevent a fall. ??? Place a pillow or piece of clothing under your head. ??? Loosen any clothing around your neck. ??? Turn you onto your side. If you vomit, this position will help keep your windpipe clear. General instructions ??? Follow all instructions from your health care provider. These may include ways to prevent seizures and what to do if you have a seizure. ??? Take kqxu-tin-[id number] and prescription medicines only as told by your health care provider. ??? Keep all follow-up visits. This is important. Contact a health care provider if: ??? Your non-epileptic seizures change or happen more often. ??? Your non-epileptic seizures do not stop after treatment. Get help right away if: ??? You injure yourself during a non-epileptic seizure. ??? You have one non-epileptic seizure after another. ??? You have trouble recovering from a non-epileptic seizure. ??? You have chest pain or trouble breathing. ??? You have a non-epileptic seizure that lasts longer than 5 minutes. These symptoms may represent a serious problem that is an emergency. Do not wait to see if the symptoms will go away. Get medical help right away. Call your local emergency services (911 in the [place] Do not drive yourself to the hospital. If you ever feel like you may hurt yourself or others, or have thoughts about taking your own life,get help right away. Go to your nearest emergency department or: ??? Call your local emergency services (911 in the [place] ??? Call a suicide crisis helpline, such as the National Suicide Prevention Lifeline at or 686 in the [place] This is open 24 hours a day in the [place] ??? Text the Crisis Text Line at 919441 (in the [place] Summary ??? Non-epileptic seizures are events that can cause abnormal movements or a loss of consciousness.These events are caused by an underlying problem with body function or a mental health disorder. ??? The treatment for your non-epileptic seizures will depend on their cause. When the underlying condition is treated, your non-epileptic seizures should stop. Medicines for seizures do not treat non-epileptic events. ??? People with non-epileptic seizures may also have epileptic seizures and may need medicines to treat seizures. ??? Make sure family members, friends, and coworkers are trained in how to help you if you have a non-epileptic seizure. This includes laying you on the ground to prevent a fall, protecting your headand neck, and turning you onto your side. This information is not intended to replace advice given to you by your health care provider. Make sure you discuss any questions you have with your health care provider. Document Revised: 08/30/2021 Document Reviewed: 07/22/2020 Elsevier Patient Education ?? 2022 [employer]. Follow Up Care 09/13/2022 09:34:54 With:[facility] Address: When:1 week With:Medardo Sargent DO Address: [address] [place] [id number] When:1 to 2 weeks Discharge instructions * Event Display: Discharge Instructions Physician Emergency department Note * Robert Napier MD: PERFORM Event Display: ED Note Physician Authored Date: [id number] CAMILA LEDESMA :1985 Age:36 years Sex:Female Visit Date:09/13/2022 Primary Care Physician: Medardo Sargent DO Basic Information Time Seen: Robert Napier MD / 09/13/2022 09:41 Chief Complaint pt reports pt having severe headaches past 3 days, today on the way to the hospital had 3 seizure-like episodes in the car, where she lost consciousness and tensed up. hx seizures taking keppra History Of Present Illness: 36-year-old female with past medical history significant for seizure-like activity??found not to beepileptic seizures on previous work-up at [facility] including EEG according to the , presents the ER for seizure-like activity.?? History is obtained from the and the patient. ??Apparently she has had increased headaches over the past several weeks, mostly constant for the past 4 days. ??The thinks that when the headaches get very bad she reacts by having these clenching and shaking episodes.?? She was seen here 2 days ago for similar episode and had laboratory studies that were reassuring and discharged with follow-up. ??She has a pending neurology??appointment at [facility] where she is followed chronically for her headaches on 09/19.?? Today she woke up again with continued headaches and??had another episode where she clenched and would not??speak to anyone.?? She had several of these in the car on the way over and was??helped out by staff and brought in here.?? No recent illness or injury. ??No change in her chronic symptoms other than escalation in frequency recently.?? The is wondering if she has a pinched nerve in her back or neck that is??contributing. Review of Systems: CONSTITUTIONAL:??No fevers or chills. EYES:??No change in vision. ENT:??No sore throat. ?? No neck pain. CARDIOVASCULAR:??No chest pain, palpitations. RESPIRATORY:??No cough, shortness of breath or hemoptysis. GI:??No abdominal pain. ??No nausea, vomiting or diarrhea. :??No change in urination. SKIN:??No rash. NEUROLOGIC:??No focal numbness or weakness. PSYCHIATRIC:??No suicidal ideation. LYMPH:??No swelling. ?? Review of systems otherwise as stated in HPI Physical Exam Vitals & Measurements T:??36?C ??(Temporal Artery)?? HR:??54??(Peripheral)?? HR:??55??(Monitored)?? RR:??15?? BP:??132/87?? SpO2:??95%?? HT:??168.000??cm?? WT:??130.00??kg?? BMI:??46.000?? Pain Score:??8?? O2 Therapy:??Room air?? GENERAL:??The patient is actively having one of her episodes. ??She is left lateral recumbent with her arms??flexed up to her chest.?? No color change??or irregular breathing pattern.?? She is distractible from this as we rolled her to the right her??episode stops. HEENT:??Normocephalic, atraumatic. ??Mucous membranes are moist. ??Pupils reactive. ??Initially theeyes seem deviated to the up and right but this is also distractible when I turn the patient's headshe looks around and blinks her eyes voluntarily. NECK:??Supple. ??Nontender. HEART:??Regular rate and rhythm. ??S1 and S2. LUNGS:??Clear to auscultation bilaterally. ??No respiratory distress. ABDOMEN:??Soft, nontender, nondistended. BACK:??Normal to inspection and nontender. EXTREMITIES:??Nontender and without edema. NEUROLOGIC:??The patient becomes awake, alert, and oriented x3??to verbal??command. ??Motor 4-5 throughout with poor effort. ??Nonfocal. ??Sensation intact to light touch throughout. SKIN:??Warm and dry. VASCULAR:??Radial 2+ bilaterally. Medical Decision Making: Headache with??seizure-like activity. ??The patient??has had previous work-up for these episodes and is being treated for headaches at [facility]. ??She has had EEG and MRI??at [facility] per the and was found to not have epileptic seizures.?? Her presentation today is certainly consistent wit h??pseudoseizure??as it was distractible, no postictal period,??no change in respiratory pattern orhypoxia.?? She does have a family history of aneurysm and CTAs were obtained which are negative foraneurysm, dissection, hemorrhage,??or mass.?? She was treated symptomatically with Compazine, Toradol, and IV fluids, and headache has significantly improved. ??Given the??recent??chronic headache over weeks I have treated her with Decadron also for possible status migrainosus.?? Given her benign appearance, chronic symptoms, negative work-up here, I have low suspicion for??meningitis and she does not require lumbar puncture. ??I have low suspicion for ischemic CVA??again given her presentation and further inpatient work-up or MRI is not indicated.?? I have recommended??follow-up with her neurologist at [facility] which she has an appointment with next week. ??I have given her a prescriptionfor Compazine which she may take for headache or nausea. ??Continue ibuprofen, Tylenol, increase p.o . fluids, avoid driving in the meantime, return if worse.?? The patient and her are happy with this plan. Procedure No Qualifying Data Assessment/Plan 1.??Headache??R51.9 2.??Seizure-like activity??R56.9 Orders: prochlorperazine 10 mg oral tablet, 10 mg = 1 tab, Oral, TID, X 7 days, # 21 tab, 0 Refill(s), 09/20/22 12:59:00 EDT, Pharmacy: [id number], 168, cm, 09/13/22 9:44:00 EDT, Height/Length Dosing, 130, kg, 09/13/22 9:44:00 EDT, Weight Dosing Discharge Patient, 09/13/22 13:04:00 EDT Drug Screen Urine, Urine, Stat Collect, 09/13/22 9:41:00 EDT, Once, Nurse collect, Print Label Test Urine Qual, Urine, Stat Collect, 09/13/22 9:41:00 EDT, Once, Nurse collect, Print Label Urinalysis with Micro if Indicated and Culture if Indicated, Urine, Stat Collect, 09/13/22 9:41:00 EDT, Once, Nurse collect, Print Label Patient Education General Headache Without Cause Non-Epileptic Seizures, Adult Follow Up With When Contact Information [facility] Within 1 week Additional Instructions: Medardo Sargent, DO Within 1 to 2 weeks [address] [place] [id number] Additional Instructions: Medication Reconciliation New Prescription prochlorperazine (prochlorperazine 10 mg oral tablet)1 tab Oral (given by mouth) 3 times a day for 7 Days. Refills: 0. ?? Unchanged busPIRone (busPIRone 5 mg oral tablet)1 tab Oral (given by mouth) 3 times a day. ?? citalopram (citalopram 40 mg oral tablet)Take 1 tablet by mouth once daily. Refills: 3. ?? fluticasone nasal (fluticasone 50 mcg/inh nasal spray)2 Sprays Nasal (into the nose) every day. Refills: 5. ?? levETIRAcetam (levETIRAcetam 1000 mg oral tablet)1 tab Oral (given by mouth) every night at bedtime. Refills: 0. ?? levETIRAcetam (levETIRAcetam 500 mg oral tablet)1 tab Oral (given by mouth) every morning. Refills:1. ?? lisinopril (lisinopril 40 mg oral tablet)1 [...] Days. ?? SUMAtriptan (SUMAtriptan 100 mg oral tablet)1 tab Oral (given by mouth) once. 9 EA, TAKE 1 TABLET BY MOUTH EVERY 24 HOURS NEEDED FOR HEADACHE - MAY REPEAT AFTER 2 HOURS - USE A DIRECTED - FOR 30 DAYS. Refills: 1. ?? topiramate (topiramate 100 mg oral tablet)Take 1 tablet by mouth twice daily. Refills: 3. 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 section???Dilation and curettage???Surgery???Surgery???Tubal ligation Medication Administration Given Sodium Chloride 0.9%, 1000 mL, IV Bolus dexamethasone 10 mg/mL injectable solution, 10 mg, IV Push prochlorperazine, IV Piggyback Toradol, 30 mg, IV Push Allergies acetaminophen-oxycodone??(palpitations) Emgality??(Headache) Social History Alcohol Never Electronic Cigarette/Vaping Electronic Cigarette Use: Never. Tobacco Never tobacco user Tobacco Use:. Family History Alive: Mother and Father. Hypertension: Father. Diagnostic Results CT Angio Brain/Head 09/13/2022 11:[address] Angio Neck 09/13/2022 10:[address] Angio Brain/Head ?? 09/13/22 10:58:37 EXAM DESCRIPTION: CT Angio Brain/Head ?? 09/13/2022 ?? INDICATION: MCGARRY, SZ; ? SAH ?? TECHNIQUE: All CT exams at this facility use at least one of these dose optimization techniques: Automated exposure control; mA and/or kV adjustment per patient size (includes targeted exams where dose is matched to clinical indication); or iterative reconstruction. ?? Thin slice helical CT images were obtained of the head with IV contrast for angiographic evaluation. Thin slab sagittal and coronal maximum intensity projection views and 3-D volume rendering were performed for further analysis and permanent images were stored. ?? 100 cc of Isovue 370 contrast was utilized ?? Unenhanced CT head examination was performed in conjunction with CTA. ?? COMPARISON: CT head without contrast from 08/09/2022 as well as outside facility MRI head without contrast from 11/16/2020 ?? FINDINGS: No acute intracranial hemorrhage, mass effect or midline shift. Focal area of increased attenuation in the left frontal lobe without significant change from previous CT examination shown to represent parenchymal calcification on previous MRI head examination. No hydrocephalus. Chaves-white differentiation is maintained. Basal cisterns remain patent. The calvarium appears intact. Bilateral maxillary, ethmoid, sphenoid and left frontal sinus mucosal thickening. ?? Riqht internal carotid artery: Right petrous and cavernous ICA appear without significant stenosis. Riqht anterior cerebral artery: No significant stenosis. Riqht middle cerebral artery: No significant stenosis. Riqht posterior cerebral artery: No significant stenosis. Riqht vertebral artery: Distal right vertebral artery appears without significant stenosis or dissection. Left internal carotid artery: Left petrous and cavernous ICA appear without significant stenosis. Left anterior cerebral artery: No significant stenosis. Left middle cerebral artery: No significant stenosis. Left posterior cerebral artery: No significant stenosis. Left vertebral artery: Distal left vertebral artery appears without significant stenosis or dissection. Basilar artery: No significant stenosis. ?? No aneurysm or AVM is identified. No evidence of dural venous sinus thrombosis ?? No intracranial mass or abnormal enhancement. ?? IMPRESSION: No large vessel occlusion or significant proximal intracranial arterial stenosis. ?? No acute intracranial hemorrhage, mass effect or midline shift. ?? Results telephoned to ER physician at the time of interpretation. ? JOB #: [id number] Electronically Signed By: ?? Signed By: Juan Rodriguez MD ?? CT Angio Neck ?? 09/13/22 10:55:45 EXAM DESCRIPTION: CT Angio Neck ?? 09/13/2022 ?? INDICATION: MCGARRY/NECK PAIN, SZ; ? DISSECTION ?? TECHNIQUE: All CT exams at this facility use at least one of these dose optimization techniques: Automated exposure control; mA and/or kV adjustment per patient size (includes targeted exams where dose is matched to clinical indication); or iterative reconstruction. ?? Thin slice helical CT images were obtained of the neck for angiographic evaluation. Thin slab sagittal and coronal maximum intensity projection views, MPR and 3-D volume rendering were performed for further analysis and permanent images were stored. ?? Contrast: 100 cc of Isovue 370 ?? COMPARISON: None ?? FINDINGS: VASCULATURE: ?? Riqht common carotid artery: No significant stenosis or dissection. Riqht internal carotid artery: No proximal right ICA stenosis. No significant stenosis or dissection involving the right cervical ICA. Riqht external carotid artery: No significant stenosis. Riqht cervical vertebral artery: No significant stenosis or dissection. ?? Left common carotid artery: No significant stenosis or dissection. Left internal carotid artery: No proximal left ICA stenosis. No significant stenosis or dissection involving the left cervical ICA. Left external carotid artery: No significant stenosis. Left cervical vertebral artery: No significant stenosis or dissection. ?? No mass or adenopathy in the visualized superior mediastinum. Visualized lung apices are clear. Small ovoid heterogeneous lesion involving anterior right thyroid lobe region. Otherwise no neck mass or adenopathy. ?? No suspicious regional osseous lesions. ? IMPRESSION: No carotid bifurcation stenosis on either side. No cervical ICA stenosis or dissection on either side. ?? No significant stenosis or dissection involving the cervical vertebral artery on either side ?? Small heterogeneous lesion which appears to be arising from the anterior aspect of the right thyroid lobe. Nonemergent thyroid ultrasound correlation could be obtained. ?? COMMENT: Reference per NASCET criteria for degree of stenosis: Mild: Less than 50% stenosis. Moderate: 50-69% stenosis. Severe: 70-94% stenosis. Near occlusion: 95-99% stenosis. ? JOB #: [id number] Electronically Signed By: ?? Signed By: Juan Rodriguez MD ECG Normal sinus rhythm at 71. ??No acute injury pattern or arrhythmia. Lab Results CBC and Differential?? LATEST RESULTS?? HISTORICAL RESULTS?? WBC?? 09/13/22 09:50?? 7.8?? 09/11/22?? 7.9?? RBC?? 09/13/22 09:50?? 4.60?? 09/11/22?? 4.04 ??Low?? Hgb?? 09/13/22 09:50?? 13.8?? 09/11/22?? 12.2?? Hct?? 09/13/22 09:50?? 41.7?? 09/11/22?? 36.7 ??Low?? MCV?? 09/13/22 09:50?? 90.7?? 09/11/22?? 90.8?? MCH?? 09/13/22 09:50?? 30.0?? 09/11/22?? 30.2?? MCHC?? 09/13/22 09:50?? 33.1?? 09/11/22?? 33.2?? RDW-CV?? 09/13/22 09:50?? 12.8?? 07/25/23?? 12.5?? Platelets?? 09/13/22 09:50?? 286?? 09/11/22?? 237?? MPV?? 09/13/22 09:50?? 10.2?? 09/11/22?? 10.2?? Neutro Auto?? 09/13/22 09:50?? 56.8?? 09/11/22?? 67.5?? Lymph Auto?? 09/13/22 09:50?? 33.0?? 09/11/22?? 24.0?? [place] Auto?? 09/13/22 09:50?? 7.7?? 09/11/22?? 6.3?? Eos, Auto?? 09/13/22 09:50?? 1.70?? 09/11/22?? 1.40?? Basophil Auto?? 09/13/22 09:50?? 0.5?? 09/11/22?? 0.4?? Imm Gran Auto?? 09/13/22 09:50?? 0.3?? 09/11/22?? 0.4?? Neutro Absolute?? 09/13/22 09:50?? 4.5?? 09/11/22?? 5.4?? Lymph Absolute?? 09/13/22 09:50?? 2.6?? 09/11/22?? 1.9?? [place] Absolute?? 09/13/22 09:50?? 0.6?? 09/11/22?? 0.5?? Eos Absolute?? 09/13/22 09:50?? 0.1?? 09/11/22?? 0.1?? Baso Absolute?? 09/13/22 09:50?? 0.0?? 09/11/22?? 0.0?? Imm Gran Absolute?? 09/13/22 09:50?? 0.02?? 09/11/22?? 0.03?? Slide Review?? 09/13/22 09:50?? Not Indicated? Routine Chemistry?? LATEST RESULTS?? HISTORICAL RESULTS?? Sodium Level?? 09/13/22 09:50?? 137?? 09/11/22?? 134?? Potassium Level?? 09/13/22 09:50?? 3.8?? 09/11/22?? 3.6?? Chloride Level?? 09/13/22 09:50?? 110?? 09/11/22?? 106?? CO2?? 09/13/22 09:50?? 20 ??Low?? 09/11/22?? 20 ??Low?? Alk Phos?? 09/13/22 09:50?? 53?? 09/11/22?? 46?? AST?? 09/13/22 09:50?? 25?? 09/11/22?? 26?? ALT?? 09/13/22 09:50?? 34?? 09/11/22?? 29?? BUN?? 09/13/22 09:50?? 7 ??Low?? 09/11/22?? 7 ??Low?? Glucose Level?? 09/13/22 09:50?? 112 ??High?? 09/11/22?? 110 ??High?? Creatinine Level?? 09/13/22 09:50?? 0.80?? 09/11/22?? 0.78?? BUN/Creat Ratio?? 09/13/22 09:50?? 8.8?? 09/11/22?? 9.0?? eGFR CKD-EPI?? 09/13/22 09:50?? 97?? 09/11/22?? 100?? Calcium Level?? 09/13/22 09:50?? 9.3?? 09/11/22?? 8.9?? Protein Total?? 09/13/22 09:50?? 7.5?? 09/11/22?? 6.8?? Albumin Level?? 09/13/22 09:50?? 4.1?? 09/11/22?? 3.7?? Globulin?? 09/13/22 09:50?? 3.4?? 09/11/22?? 3.1?? A/G Ratio?? 09/13/22 09:50?? 1.2?? 09/11/22?? 1.2?? Bilirubin Total?? 09/13/22 09:50?? 0.7?? 09/11/22?? 0.4?? Anion Gap?? 09/13/22 09:50?? 7.0?? 09/11/22?? 8.0?? Lipase Level?? 09/13/22 09:50?? 28? Magnesium Level?? 09/13/22 09:50?? 2.0? Osmolality?? 09/13/22 09:50?? 273 ??Low?? 09/11/22?? 267 ??Low?? Glucose POC?? 09/13/22 09:46?? 126? Endocrinology?? LATEST RESULTS?? Prolactin?? 09/13/22 09:50?? 14.27? Serum Toxicology?? LATEST RESULTS?? Ethanol Level?? 09/13/22 09:50?? <0.00?? Instr Ethanol Lvl?? 09/13/22 09:50?? <5? Electronically Signed on 09/13/22 01:10 PM Robert Napier MD Emergency department Discharge instructions * Robert Napier MD: PERFORM Event Display: ED Discharge Information Authored Date: [id number] CAMILA LEDESMA :1985 Age:36 years Sex:Female Visit Date:09/13/2022 Primary Care Physician: Medardo Sargent DO Discharge Instructions We would like to thank you for allowing us to assist you with your healthcare needs. The following includes patient education materials and information regarding your injury/illness. Diagnosis from Today's Visit Headache Seizure-like activity Discharge Vitals Temperature??(Temporal Artery) 96.8 ??F (36 ??C) Heart Rate??(Peripheral) 54 Heart Rate??(Monitored) 55 Respiratory Rate?? 15 Blood Pressure?? 132/87?? Height?? 66.14 in (168.000 cm) Weight?? 286.65 lb (130.00 kg) BMI?? 46.000 Allergies acetaminophen-oxycodone??(palpitations) Emgality??(Headache) What to Do Next You Need to Schedule the Following Appointments Follow Up with??[facility] When:??Within 1 week Follow Up with??Medardo Sargent, DO When:??Within 1 to 2 weeks Where: [address] [place] [id number] You were treated today on an emergency [...] What How Much When Instructions Next Dose New prochlorperazine (prochlorperazine 10 mg oral tablet) 1 tab Oral (given by mouth) 3 times a day Duration: 7 Days Pickup at [id number] Unchanged busPIRone (busPIRone 5 mg oral tablet) 1 tab Oral (given by mouth) 3 times a day Unchanged citalopram (citalopram 40 mg oral tablet) See instructions Take 1 tablet by mouth once daily ?? Unchanged fluticasone nasal (fluticasone 50 mcg/ inh nasal spray) 2 Sprays Nasal (into the nose) Every day Unchanged levETIRAcetam (levETIRAcetam 1000 mg oral tablet) 1 tab Oral (given by mouth) Every night at bedtime Unchanged levETIRAcetam (levETIRAcetam 500 mg oral tablet) 1 tab Oral (given by mouth) Every morning Unchanged lisinopril (lisinopril 40 mg oral tablet) [...] Unchanged SUMAtriptan (SUMAtriptan 100 mg oral tablet) 1 tab Oral (given by mouth) Once 9 EA, TAKE 1 TABLET BY MOUTH EVERY 24 HOURS NEEDED FOR HEADACHE - MAY REPEAT AFTER 2 HOURS - USEA DIRECTED - FOR 30 DAYS ?? Unchanged topiramate (topiramate 100 mg oral tablet) See instructions Take 1 tablet by mouth twice daily ?? Pharmacy Information [id number]: [address] [place], [place] [id number] [phone] Education Materials General Headache Without Cause A headache is pain or discomfort felt around the head or neck area. There are many causes and typesof headaches. A few common types include: ? Tension headaches. ? Migraine headaches. ? Cluster headaches. ? Chronic daily headaches. Sometimes, the specific cause of a headache may not be found. Follow these instructions at home: Watch your condition for any changes. Let your health care provider know about them. Take these steps to help with your condition: Managing pain ? Take [id number] and prescription medicines only as told by your health care provider. Treatment may include medicines for pain that are taken by mouth or applied to the skin. ? Lie down in a dark, quiet room when you have a headache. ? Keep lights dim if bright lights bother you or make your headaches worse. ? If directed, put ice on your head and neck area: ? Put ice in a plastic bag. ? Place a towel between your skin and the bag. ? Leave the ice on for 20 minutes, 2???3 times per day. ? Remove the ice if your skin turns bright red. This is very important. If you cannot feel pain, heat, or cold, you have a greater risk of damage to the area. ? If directed, apply heat to the affected area. Use the heat source that your health care provider recommends, such as a moist heat pack or a heating pad. ? Place a towel between your skin and the heat source. ? Leave the heat on for 20???30 minutes. ? Remove the heat if your skin turns bright red. This is especially important if you are unable to feel pain, heat, or cold. You have a greater risk of getting burned. Eating and drinking ? Eat meals on a regular schedule. ? If you drink alcohol: ? Limit how much you have to: ? 0???1 drink a day for women who are not . ? 0???2 drinks a day for men. ? Know how much alcohol is in a drink. In the [place] one drink equals one 12 oz bottle of beer (355 mL), one 5 oz glass of wine (148 mL), or one 1?? oz glass of hard liquor (44 mL). ? Stop drinking caffeine, or decrease the amount of caffeine you drink. ? Drink enough fluid to keep your urine pale yellow. General instructions ? Keep a headache journal to help find out what may trigger your headaches. For example, write down: ? What you eat and drink. ? How much sleep you get. ? Any change to your diet or medicines. ? Try massage or other relaxation techniques. ? Limit stress. ? Sit up straight, and do not tense your muscles. ? Do not use any products that contain nicotine or tobacco. These products include cigarettes, chewing tobacco, and vaping devices, such as e-cigarettes. If you need help quitting, ask your health careprovider. ? Exercise regularly as told by your health care provider. ? Sleep on a regular schedule. Get 7???9 hours of sleep each night, or the amount recommended by yourhealth care provider. ? Keep all follow-up visits. This is important. Contact a health care provider if: ? Medicine does not help your symptoms. ? You have a headache that is different from your usual headache. ? You have nausea or you vomit. ? You have a fever. Get help right away if: ? Your headache: ? Becomes severe quickly. ? Gets worse after moderate to intense physical activity. ? You have any of these symptoms: ? Repeated vomiting. ? Pain or stiffness in your neck. ? Changes to your vision. ? Pain in an eye or ear. ? Problems with speech. ? Muscular weakness or loss of muscle control. ? Loss of balance or coordination. ? You feel faint or pass out. ? You have confusion. ? You have a seizure. These symptoms may represent a serious problem that is an emergency. Do not wait to see if the symptoms will go away. Get medical help right away. Call your local emergency services (911 in the [place] Do not drive yourself to the hospital. Summary ? A headache is pain or discomfort felt around the head or neck area. ? There are many causes and types of headaches. In some cases, the cause may not be found. ? Keep a headache journal to help find out what may trigger your headaches. Watch your condition for any changes. Let your health care provider know about them. ? Contact a health care provider if you have a headache that is different from the usual headache, orif your symptoms are not helped by medicine. ? Get help right away if your headache becomes severe, you vomit, you have a loss of vision, you loseyour balance, or you have a seizure. This information is not intended to replace advice given to you by your health care provider. Make sure you discuss any questions you have with your health care provider. Document Revised: 07/05/2021 Document Reviewed: 07/05/2021 [employer] Patient Education ?? 2022 [employer] Non-Epileptic Seizures, Adult A non-epileptic seizure is an event that can cause abnormal movements or a loss of consciousness. These events differ from epileptic seizures because they are not caused by abnormal electrical and chemical activity in the brain. There are two types of non-epileptic seizures: ? Physiologic. This type results from an underlying problem with body function. ? Psychogenic. This type results from an underlying mental health disorder. What are the causes? The cause of this condition depends on the kind of non-epileptic seizure that you have. Causes of physiologic non-epileptic seizures ? Sudden drop in blood pressure or heart rhythm problems. ? Low blood sugar (glucose) or low levels of salt (sodium) in your blood. ? Migraine. ? Sleep disorders or movement disorders. ? Certain medicines. ? Heavy use of drugs or alcohol. ? Head injuries. Causes of psychogenic non-epileptic seizures ? Stress. ? Emotional trauma. ? Sexual or physical abuse. ? Big life events, such as divorce or of a loved one. ? Mental health disorders, including anxiety and depression. What are the signs or symptoms? Symptoms of a non-epileptic seizure can be similar to those of an epileptic seizure. They may include: ? A change in attention or behavior. ? A loss of consciousness or fainting. ? Uncontrollable shaking (convulsions) with fast, jerking movements. ? Drooling, tongue biting, or grunting. ? Rapid eye movements. ? Being unable to control when you urinate or have bowel movements. After a non-epileptic seizure, you may: ? Have a headache or sore muscles. ? Feel confused or sleepy. Non-epileptic seizures usually: ? Do not cause physical injuries. ? Start slowly. ? Include crying or shrieking. ? Last longer than 2 minutes. ? Include pelvic thrusting. How is this diagnosed? Non-epileptic seizures may be diagnosed by medical history, physical exam, and symptoms. Your health care provider may: ? Talk with your friends or relatives who have seen you have a seizure. ? Ask you to write down your seizure activity and the things that led up to the seizure, and ask you to share that information with him or her. You may also have tests to look for causes of physiologic non-epileptic seizures. Tests may include: ? An electroencephalogram (EEG) to check the electrical activity in your brain. ? Video EEG in the hospital. This takes 2???7 days. ? Blood tests. ? An electrocardiogram (ECG) to check for an abnormal heart rhythm. ? A CT scan. If your health care provider thinks you have had a psychogenic non-epileptic seizure, you may need to be evaluated by a mental health specialist. How is this treated? The treatment for your non-epileptic seizures will depend on their cause. When the underlying condition is treated, your non-epileptic seizures should stop. Medicines to treat seizures do not help with non-epileptic events. If your non-epileptic seizures are being caused by emotional trauma or stress, your health care provider may recommend that you see a mental health specialist. Treatment may include: ? Relaxation therapy or cognitive behavioral therapy (CBT). ? Medicines for depression or anxiety. ? Individual or family counseling. Some people have both psychogenic non-epileptic seizures and epileptic seizures. If you have both of these types, you may be prescribed medicine to manage the epileptic seizures. Follow these instructions at home: Home care will depend on the type of non-epileptic seizures that you have. Follow this general guidance: Avoid alcohol and drug use Avoid using any substance that may prevent your medicine from working properly. If you are prescribed medicine for seizures: ? Do not use drugs. ? Limit or avoid drinking alcohol. If you drink alcohol: ? Limit how much you have to: ? 0???1 drink a day for women who are not . ? 0???2 drinks a day for men. ? Know how much alcohol is in your drink. In the [place] one drink equals one 12 oz bottle of beer (355mL), one 5 oz glass of wine (148 mL), or one 1?? oz glass of hard liquor (44 mL). Involve family, friends, and coworkers Make sure family members, friends, and coworkers are trained in how to help you if you have a seizure. If you have a seizure, they should: ? Lay you on the ground to prevent a fall. ? Place a pillow or piece of clothing under your head. ? Loosen any clothing around your neck. ? Turn you onto your side. If you vomit, this position will help keep your windpipe clear. General instructions ? Follow all instructions from your health care provider. These may include ways to prevent seizures and what to do if you have a seizure. ? Take kshz-rwv-yopprys and prescription medicines only as told by your health care provider. ? Keep all follow-up visits. This is important. Contact a health care provider if: ? Your non-epileptic seizures change or happen more often. ? Your non-epileptic seizures do not stop after treatment. Get help right away if: ? You injure yourself during a non-epileptic seizure. ? You have one non-epileptic seizure after another. ? You have trouble recovering from a non-epileptic seizure. ? You have chest pain or trouble breathing. ? You have a non-epileptic seizure that lasts longer than 5 minutes. These symptoms may represent a serious problem that is an emergency. Do not wait to see if the symptoms will go away. Get medical help right away. Call your local emergency services (724 in the [place] Do not drive yourself to the hospital. If you ever feel like you may hurt yourself or others, or have thoughts about taking your own life,get help right away. Go to your nearest emergency department or: ? Call your local emergency services (711 in the [place] ? Call a suicide crisis helpline, such as the National Suicide Prevention Lifeline at or 049 in the [place] This is open 24 hours a day in the [place] ? Text the Crisis Text Line at 758405 (in the [place] Summary ? Non-epileptic seizures are events that can cause abnormal movements or a loss of consciousness. These events are caused by an underlying problem with body function or a mental health disorder. ? The treatment for your non-epileptic seizures will depend on their cause. When the underlying condition is treated, your non-epileptic seizures should stop. Medicines for seizures do not treat non-epileptic events. ? People with non-epileptic seizures may also have epileptic seizures and may need medicines to treatseizures. ? Make sure family members, friends, and coworkers are trained in how to help you if you have a non-epileptic seizure. This includes laying you on the ground to prevent a fall, protecting your head andneck, and turning you onto your side. This information is not intended to replace advice given to you by your health care provider. Make sure you discuss any questions you have with your health care provider. Document Revised: 08/30/2021 Document Reviewed: 07/22/2020 [employer] Patient Education ?? 2022 [employer] Tests Performed Radiology CT Angio Brain/Head 09/13/2022 11:[address] Angio Neck 09/13/2022 10:58 EDT Medications and Immunizations Administered Given Sodium Chloride 0.9%, 1000 mL, IV Bolus dexamethasone 10 mg/mL injectable solution, 10 mg, IV Push prochlorperazine, IV Piggyback Toradol, 30 mg, IV Push Lab Test Name Test Result Date/Time WBC 7.8 K/mcL 09/13/2022 09:50 EDT RBC 4.60 Million/mcL 09/13/2022 09:50 EDT Hgb 13.8 g/dL 09/13/2022 09:50 EDT Hct 41.7 % 09/13/2022 09:50 EDT MCV 90.7 fL 09/13/2022 09:50 EDT MCH 30.0 pg 09/13/2022 09:50 EDT MCHC 33.1 g/dL 09/13/2022 09:50 EDT RDW-CV 12.8 % 09/13/2022 09:50 EDT Platelets 286 K/mcL 09/13/2022 09:50 EDT MPV 10.2 fL 09/13/2022 09:50 EDT Neutro Auto 56.8 % 09/13/2022 09:50 EDT Lymph Auto 33.0 % 09/13/2022 09:50 EDT [place] Auto 7.7 % 09/13/2022 09:50 EDT Eos, Auto 1.70 % 09/13/2022 09:50 EDT Basophil Auto 0.5 % 09/13/2022 09:50 EDT Imm Gran Auto 0.3 % 09/13/2022 09:50 EDT Neutro Absolute 4.5 K/mcL 09/13/2022 09:50 EDT Lymph Absolute 2.6 K/mcL 09/13/2022 09:50 EDT [place] Absolute 0.6 K/mcL 09/13/2022 09:50 EDT Eos Absolute 0.1 K/mcL 09/13/2022 09:50 EDT Baso Absolute 0.0 K/mcL 09/13/2022 09:50 EDT Imm Gran Absolute 0.02 09/13/2022 09:50 EDT Slide Review Not Indicated 09/13/2022 09:50 EDT Sodium Level 137 mmol/L 09/13/2022 09:50 EDT Potassium Level 3.8 mmol/L 09/13/2022 09:50 EDT Chloride Level 110 mmol/L 09/13/2022 09:50 EDT CO2 20 mmol/L 09/13/2022 09:50 EDT Alk Phos 53 IntlUnit/L 09/13/2022 09:50 EDT AST 25 IntlUnit/L 09/13/2022 09:50 EDT ALT 34 IntlUnit/L 09/13/2022 09:50 EDT BUN 7 mg/dL 09/13/2022 09:50 EDT Glucose Level 112 mg/dL 09/13/2022 09:50 EDT Creatinine Level 0.80 mg/dL 09/13/2022 09:50 EDT BUN/Creat Ratio 8.8 09/13/2022 09:50 EDT eGFR CKD-EPI 97 mL/min/1.73 m2 09/13/2022 09:50 EDT Calcium Level 9.3 mg/dL 09/13/2022 09:50 EDT Protein Total 7.5 g/dL 09/13/2022 09:50 EDT Albumin Level 4.1 g/dL 09/13/2022 09:50 EDT Globulin 3.4 09/13/2022 09:50 EDT A/G Ratio 1.2 09/13/2022 09:50 EDT Bilirubin Total 0.7 mg/dL 09/13/2022 09:50 EDT Anion Gap 7.0 09/13/2022 09:50 EDT Lipase Level 28 unit/L 09/13/2022 09:50 EDT Magnesium Level 2.0 mg/dL 09/13/2022 09:50 EDT Osmolality 273 mOsm/kg 09/13/2022 09:50 EDT Glucose POC 126 09/13/2022 09:46 EDT Prolactin 14.27 ng/mL 09/13/2022 09:50 EDT Ethanol Level <0.00 g/dL 09/13/2022 09:50 EDT Instr Ethanol Lvl <5 mg/dL 09/13/2022 09:50 EDT Patient/Electronic Tech Signature Patient Name:CAMILA LEDESMA I have received this information and my questions have been answered. Patient/Electronic Tech Name: Patient/Electronic Tech Signature: Relationship to Patient: Witness Name/Signature: Date: Electronically Signed on: 09/13/2022 13:05 EDTSigned by: Patient Care team information Care Team Personnel Name: Medardo Sargent DO Position: Physician Member Role: Primary Care Physician Address: Address: [address] [place] [id number] Name: Robert Napier MD Position: Physician Member Role: ED Physician Address: Address: [address] [place] [address] Name: Sana Choudhary I Position: Nurse Member Role: ED Nurse Care Team Related Persons Name: GASPER LEDESMA Name: LEI BLACK
--- OUTSIDE RECORDS SUMMARY | 2024-01-13 19:02 | XMS_ITS | Continuity of Care Document ---
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 Name Role Phone Medardo Sargent DO Primary Care Physician Encounter [facility] FIN NBR [id number] Date(s): 08/17/22 - 08/17/22 [facility] [address] [place] [address]- [place] Discharge Disposition: Home Allergies, Adverse Reactions, [...] daily, # 90 tab, 3 Refill(s), Pharmacy: [id number] Start Date: 07/09/22 Status: Ordered fluticasone 50 mcg/inh nasal spray 2 sprays, Nasal, Daily, # 16 g, 5 Refill(s), Pharmacy: [facility] [id number] Start Date: 03/19/22 Status: Ordered levETIRAcetam 1000 mg oral tablet 1 tab, Oral, every night at bedtime, # 90 tab, 0 Refill(s), Pharmacy: [place] [id number], 167, cm, 08/09/22 11:40:00 EDT, Height/Length Dosing, 130, kg, 08/09/22 11:40:00 EDT, Weight Dosing Start Date: 08/17/22 Status: Ordered levETIRAcetam 500 mg oral tablet 500 mg = 1 tab, Oral, every morning, # 90 tab, 1 Refill(s), Pharmacy: [place] [id number], 167, cm, 08/09/22 11:40:00 EDT, Height/Length Dosing, 130, kg, 08/09/22 11:40:00 EDT, Weight Dosing Start Date: 08/17/22 Status: Ordered lisinopril 40 mg oral tablet 1 tab, Oral, Daily, # 90 tab, 3 Refill(s), Pharmacy: [place] [id number] Start Date: 07/19/22 Status: Ordered LORazepam 1 mg oral tablet 1 mg = 1 tab, Oral, every 6 hr, PRN as needed for anxiety, # 15 tab, 1 Refill(s), Pharmacy: [place] [id number], 167, cm, 08/09/22 11:40:00 EDT, Height/Length Dosing, 130, kg, 08/09/22 11:40:00 EDT, Weight Dosing Start Date: 08/15/22 Stop Date: 08/23/22 Status: Ordered pantoprazole 40 mg oral delayed release tablet 40 mg = 1 tab, Oral, Daily, # 90 tab, 3 Refill(s), Pharmacy: [place] [id number] Start Date: 05/24/22 Stop Date: 05/19/23 Status: [...] DAYS, # 9 tab, 1 Refill(s), Pharmacy: [id number], 167, cm, 08/09/22 11:40:00 EDT, Height/John... Start Date: 08/15/22 Status: Ordered topiramate 100 mg oral tablet See Instructions, Take 1 tablet by mouth twice daily, # 180 tab, 3 Refill(s), Pharmacy: [id number] Start Date: 05/07/22 Status: [...] Member Role: Primary Care Physician Address: Address: [address] [place] [id number] [place] Care Team Related Persons Name: GASEPR LEDESMA Name: LEI BLACK
--- OUTSIDE RECORDS SUMMARY | 2024-01-13 19:02 | XMS_ITS | Continuity of Care Document ---
Author Organization [facility] Address [address] [place] [address] Care Team Providers Care Superintendent Pressure Name Role Phone Medardo Sargent DO Primary Care Physician [phone] Encounter [facility] FIN NBR [id number] Date(s): 08/14/22 - 08/14/22 [facility] [address] [place] [address]- Discharge Disposition: Home or Self Care Attending Physician: Dion Maravilla DO Allergies, Adverse Reactions, Alerts Substance Reaction Severity Status acetaminophen-oxycodone palpitations Severe Acti ve Emgality 1 Headache Moderate Active 1300 MG dose, worsening headaches. Immunizations Given and Recorded Vaccine Date Status [...] daily, # 90 tab, 3 Refill(s), Pharmacy: [id number] Start Date: 07/09/22 Status: Ordered fluticasone 50 mcg/inh nasal spray 2 sprays, Nasal, Daily, # 16 g, 5 Refill(s), Pharmacy: [id number] Start Date: 03/19/22 [...] Daily, # 90 tab, 3 Refill(s), Pharmacy: [id number] Start Date: 07/19/22 Status: Ordered LORazepam 1 mg oral tablet 1 mg = 1 tab, Oral, every 6 hr, PRN as needed for anxiety, # 15 tab, 1 Refill(s), Pharmacy: [place] [id number], 167, cm, 08/09/22 11:40:00 EDT, Height/Length Dosing, 130, kg, 08/09/22 11:40:00 EDT, Weight Dosing Start Date: 08/13/22 Stop Date: 08/21/22 Status: Ordered pantoprazole 40 mg oral delayed release tablet 40 mg = 1 tab, Oral, Daily, # 90 tab, 3 Refill(s), Pharmacy: [id number] Start Date: 05/24/22 [...] daily, # 180 tab, 3 Refill(s), Pharmacy: [facility] 4389 Start Date: 05/07/22 Status: Ordered Problem [...] Member Role: Primary Care Physician Address: Address: [address] [place] [id number] [place] Care Team Related Persons Name: GASPER LEDESMA Name: LEI BLACK
--- OUTSIDE RECORDS SUMMARY | 2024-01-13 19:02 | XMS_ITS | Continuity of Care Document ---
Author Organization [facility] Ambulatory Clinics Address [address] [place] [address] Care Team Providers Care Ms Sql Developer Name Role Phone Medardo Sargent DO Primary Care Physician [phone] Encounter [facility] NBR [id number] Date(s): 06/05/23 - 06/05/23 [facility] Ambulatory Clinics [address] [place] [address]- Encounter Diagnosis Right maxillary sinusitis(Discharge Diagnosis) - 06/05/23 Chronic maxillary sinusitis(Final) - Discharge Disposition: Home or Self Care Attending Physician: Destiny Adkins PA-C Admitting Physician: Destiny Adkins PA-C Allergies, Adverse Reactions, Alerts Substance Reaction Severity Status acetaminophen-oxycodone palpitations Severe Acti ve Emgality 1 Headache Moderate Active 1300 MG dose, worsening headaches. Assessment and Plan Extracted from: Title:Office Visit Note Author:YUE Callejas Date:06/05/23 1.??Right maxillary sinusiti s??J32.0 ??Patient with past medical history of recurrent??and chronic??right maxillary and frontal sinusitis presenting with 1.5??weeks of??right-sided facial pain, congestion, pressure.?? She has been trying [id number]??antihistamines, decongestants, nasal sprays, sinus rinses without any improvement.?? She does have exquisite tenderness??to palpation over the right maxillary sinus on exam.?? Patient will be started on Augmentin??as she notes this is her typical protocol.?? I did explain to patient that typically the first 2 to 3 weeks of symptoms are viral in etiology, but given her complex??past medical history with her sinuses??and exam findings today??we will trial antibiotics. ??She understands if not readily improving that symptoms may be allergic or viral in nature.?? She should follow-up with her primary care if needed. ??Encouraged rest, fluids.?? Recheck if worsening Ordered: amoxicillin-clavulanate 875 mg-125 mg oral tablet, 1 tab, Oral, every 12 hr, # 20 tab, 0 Refill(s), Pharmacy: [facility], 167.6, cm, 05/16/23 10:00:00 EDT, Height, 132.8, kg, 05/16/23 10:08:00 EDT, Weight Dosing ?? Future Scheduled Tests Radiology* MRI Brain w/ [...] hr, # 20 tab, 0 Refill(s), Pharmacy: [facility], 167.6, cm, 05/16/23 10:00:00 EDT, Height, 132.8, kg, 05/16/23 10:08:00 EDT, Weight Dosing Start Date: 06/05/23 Stop Date: 06/15/23 Status: Ordered busPIRone 5 mg oral tablet 2 tab, Oral, TID, # 540 tab, 3 Refill(s), Pharmacy: [facility], 168, cm, 09/13/22 9:44:00 EDT, Height/Length Dosing, 130, kg, 09/13/22 9:44:00 EDT, Weight Dosing Start Date: 10/31/22 Status: Ordered citalopram 40 mg oral tablet 40 mg = 1 tab, Oral, Daily, # 90 tab, 3 Refill(s), Pharmacy: [facility] Start Date: 07/09/22 Status: Ordered fexofenadine 180 mg oral tablet 180 mg = 1 tab, Oral, Daily, # 30 tab, 0 Refill(s), Pharmacy: [place] [facility] [address], 168, cm, 09/13/22 9:44:00 EDT, Height/Length Dosing, 130, kg, 09/13/22 9:44:00 EDT, Weight Dosing Start Date: 10/19/22 Status: Ordered fluticasone 50 mcg/inh nasal spray 2 sprays, Nasal, Daily, # 16 g, 5 Refill(s), Pharmacy: [facility] Start Date: 03/19/22 Status: Ordered lisinopril 40 mg oral tablet 1 tab, Oral, Daily, # 90 tab, 3 Refill(s), Pharmacy: [facility] Start Date: 07/19/22 Status: Ordered LORazepam 1 mg oral tablet 1 mg = 1 tab, Oral, every 6 hr, PRN as needed for anxiety, # 15 tab, 1 Refill(s), Pharmacy: [place] [address], 167.6, cm, 05/16/23 10:00:00 EDT, Height, 132.8, [...] Daily, # 90 tab, 3 Refill(s), Pharmacy: [place] [facility] [address], 167.6, cm, 05/16/23 10:00:00 EDT, Height, 132.8, [...] Daily, # 90 tab, 0 Refill(s), Pharmacy: [facility], 168, cm, 09/13/22 9:44:00 EDT, Height/Length Dosing, 130, kg, 09/13/22 9:44:00 EDT, Weight Dosing Start Date: 10/19/22 Status: Ordered SUMAtriptan 100 mg oral tablet 1 tab, Oral, every 24 hr, PRN NEEDED FOR HEADACHE,MAY REPEAT AFTER 2 HOURS (USE DIRECTED) FOR, # 9 tab, 12 Refill(s), Pharmacy: [facility], 168, cm, 09/13/22 9:44:00 EDT, Height/Length Dosing, 130, kg, 09/13/22 9:44:00 EDT, Weight Dosing Start Date: 11/28/22 Stop Date: 12/28/22 Status: Ordered topiramate 100 mg oral tablet 100 mg = 1 tab, Oral, BID, # 180 tab, 3 Refill(s), Pharmacy: [facility], 167.6, cm, 05/16/23 10:00:00 EDT, [...] to oldest [Reference Range]: 1 Temperature Tympanic [36.6-38.1 Deg C] 3 5.8 Deg C *LOW* (06/05/23 11:17 AM) Peripheral Pulse Rate [60-100 bpm] 77 bp m (06/05/23 11:17 AM) Blood Pressure [90-140/60-90 mmHg] 129/7 5mmHg (06/05/23 11:17 AM) Mean Arterial Pressure, Cuff [65-140 mmH g] 93 mmHg (06/05/23 11:17 AM) Social History Social History Type Response Tobacco Never tobacco user T obacco Use:. Sex Physician Outpatient Note * Destiny Adkins PA-C: PERFORM Event Display: Office Clinic Note Physician Authored Date: [id number] CAMILA LEDESMA :1985 Age:37 years Sex:Female Visit Date:06/05/2023 Primary Care Physician: Medardo Sargent DO Chief Complaint sinus pressure, going on for a week now. allergies to dust, may be a flare up from cleaning. runny nose, head feels full, wooshing noises. History of Present Illness This is a 37-year-old female??with an extensive past medical history of??sinusitis,??followed by ENT and neurology, who presents with concern for sinus infection.?? Patient reports she has been sick for about a week and a half.?? She is currently experiencing??right-sided??cheek??and forehead??pain, tenderness, pressure, congestion??that is radiating to her right ear.?? She has been trying to usesinus rinses, nasal spray,??and daily antihistamine, and a decongestant without any improvement in her symptoms.?? She notes she is very prone to sinus infections and the only thing that helps her rid of her symptoms and is antibiotics.?? She notes she contacted her primary care provider this morning who??was unable to fit her in??for a visit and recommended that she be??seen here to get started on antibiotics.?? She has not had any recent fever. ??Energy levels have been low Physical Exam Vitals & Measurements T:??35.8?C ??(Tympanic)?? HR:??77??(Peripheral)?? BP:??129/75?? SpO2:??100%?? General: A&O x 3, well-built and hydrated, no acute distress Eyes: PERRLA, no redness or drainage Ears: auditory canals non-tender bilaterally, bilateral TMs translucent and pearly nava Nose: nares moist and patent,??exquisitely tender right??maxillary sinus and right frontal sinus Mouth: moist mucous membranes without lesions Throat: oropharynx and tonsils without erythema or exudate Neck:??5/5 flexion and extension, supple, no lymphadenopathy Chest: symmetric rise Heart: normal S1S2, no murmurs, rubs, gallops Lungs: equal and symmetric respiratory effort, lungs clear to auscultation without wheezes, rales, rhonchi Assessment/Plan 1.??Right maxillary sinusitis??J32.0 ??Patient with past medical history of recurrent??and chronic??right maxillary and frontal sinusitis presenting with 1.5??weeks of??right-sided facial pain, congestion, pressure.?? She has been trying [id number]??antihistamines, decongestants, nasal sprays, sinus rinses without any improvement.?? She does have exquisite tenderness??to palpation over the right maxillary sinus on exam.?? Patient will be started on Augmentin??as she notes this is her typical protocol.?? I did explain to patient that typically the first 2 to 3 weeks of symptoms are viral in etiology, but given her complex??past medical history with her sinuses??and exam findings today??we will trial antibiotics. ??She unde rstands if not readily improving that symptoms may be allergic or viral in nature.?? She should follow-up with her primary care if needed. ??Encouraged rest, fluids.?? Recheck if worsening Ordered: amoxicillin-clavulanate 875 mg-125 mg oral tablet, 1 tab, Oral, every 12 hr, # 20 tab, 0 Refill(s),Pharmacy: [facility], 167.6, cm, 05/16/23 10:00:00 EDT, Height, 132.8, kg, 05/16/23 10:08:00 EDT, Weight Dosing ?? Problem List/Past Medical History Ongoing Allergic rhinitis Allergic rhinitis due to pollen Anxiety Body mass index 40+ - severely obese Chronic frontal sinusitis Chronic maxillary sinusitis Chronic rhinitis Congenital anomaly of cerebrovascular system Convulsion, non-epileptic Dissociative convulsions Essential hypertension Hemicrania continua Lesion of brain Multiple allergies Reaction to allergy injection Refractory migraine without aura Seizure Historical Acute pansinusitis History of clinical finding in subject Procedure/Surgical History ???Ablation??? section???Dilation and curettage???Surgery???Surgery???Tubal ligation Medications amoxicillin-clavulanate 875 mg-125 mg oral tablet, 1 tab, Oral, every 12 hr busPIRone 5 mg oral tablet, 2 tab, Oral, TID citalopram 40 mg oral tablet, 40 mg= 1 tab, Oral, Daily fexofenadine 180 mg oral tablet, 180 mg= 1 tab, Oral, Daily fluticasone 50 mcg/inh nasal spray, 2 sprays, !-Nasal, Daily lisinopril 40 mg oral tablet, 1 tab, Oral, Daily LORazepam 1 mg oral tablet, 1 mg= 1 tab, Oral, every 6 hr, PRN, 1 refills Nurtec ODT 75 mg oral tablet, disintegrating pantoprazole 40 mg oral delayed release tablet, 1 tab, Oral, Daily pyridoxine 100 mg oral tablet, 100 mg= 1 tab, Oral, Daily Singulair 10 mg oral tablet, 10 mg= 1 tab, Oral, Daily SUMAtriptan 100 mg oral tablet, 1 tab, Oral, every 24 hr, PRN topiramate 100 mg oral tablet, 100 mg= 1 tab, Oral, BID, 3 refills Allergies acetaminophen-oxycodone??(palpitations) Emgality??(Headache) Social History Alcohol Never Electronic Cigarette/Vaping Electronic Cigarette Use: Never. Substance Use Never Tobacco Never tobacco user Tobacco Use:. Family History Alive: Mother and Father. Hypertension: Father. Immunizations Vaccine Date Status varicella virus vaccine 08/14/2012 Recorded Comments : Unit: Unknown Electronically Signed on 06/05/23 12:27 PM Destiny Adkins PA-C Patient Care team information Care Team Personnel Name: Medardo Sargent DO Position: Physician Member Role: Primary Care Physician Address: Address: [address] [place] [phone] [place] Care Team Related Persons Name: GASPER LEDESMA Name: LEI BLACK
--- OUTSIDE RECORDS SUMMARY | 2024-01-13 19:02 | XMS_ITS | Continuity of Care Document ---
Author Organization [facility] Ambulatory Clinics Address [address] [place] [address] Care Team Providers Care Assistant Surveyor Name Role Phone Medardo Sargent DO Primary Care Physician Encounter [facility] NBR [id number] Date(s): 03/06/22 - 03/06/22 [facility] Ambulatory Clinics [address] [place], [place] [address] Encounter Diagnosis Allergic rhinitis(Discharge Diagnosis) - 03/06/22 Discharge Disposition: Home or Self Care Attending Physician: Dion Maravilla DO Allergies, Adverse Reactions, Alerts Substance Reaction Severity Status acetaminophen-oxycodone palpitations Severe Acti ve Emgality 1 Headache Moderate Active 1300 MG dose, worsening headaches. Assessment and Plan Future Appointments Medications !-Augmentin 875 mg-125 mg oral tablet 1 tab, Oral, every 12 hr, # 20 tab, 0 Refill(s), Pharmacy: [facility] Start Date: 02/20/22 Stop Date: 03/02/22 Status: Ordered busPIRone 5 mg oral tablet 10 mg = 2 tab, Oral, TID, # 540 tab, 1 Refill(s), Pharmacy: [facility] Start Date: 12/05/21 Stop Date: [...] Daily, # 90 tab, 1 Refill(s), Pharmacy: [facility] Start Date: 11/26/21 Status: Ordered LORazepam 1 mg oral tablet 1 mg = 1 tab, Oral, every 6 hr, PRN as needed for anxiety, # 15 tab, 1 Refill(s), Pharmacy: [facility] Start Date: 12/18/21 Stop Date: [...] Personnel Name: Medardo Sargent DO Address: Address: [address] [place] [phone]
--- OUTSIDE RECORDS SUMMARY | 2024-01-13 19:02 | XMS_ITS | Continuity of Care Document ---
Author Organization [facility] Ambulatory Clinics Address [address] [place] [address] Care Team Providers Care Illuminating Engineer Name Role Phone Medardo Sargent DO Primary Care Physician Encounter [facility] NBR [id number] Date(s): 12/17/23 - 12/17/23 [facility] Ambulatory Clinics [address] [place], [place] [address] Encounter Diagnosis Acute pansinusitis(Discharge Diagnosis) - 12/17/23 Discharge Disposition: Home or Self Care Attending Physician: Yuliya Obrien APRN Allergies, Adverse Reactions, Alerts Substance Criticality Severity Reaction Reaction Severity Status acetaminophen-oxycodo ne High criticality Severe palpitations Active Emgality 1 High criticality Moderate Headache Ac tive 1300 MG dose, worsening headaches. Assessment and Plan Extracted from: Title:[facility] Office Visit Note. sinusitis Author:Archie Obrien APRN Date:12/17/23 1.??Acute pansinusitis??J01. 40 ??Clinical presentation consistent with acute maxillary sinusitis.?? Reviewed??CT head performed in July 2022 that showed mild thickening of the right paranasal sinus.?? That finding??following successful resolution of sinusitis 6+ weeks prior along with her history??make me suspicious for??some structural??abnormality that predisposes her to sinusitis. ??Encouraged her to use distilled or boiled tap water for nasal rinses rather than water straight from the tap.?? Discussed conservative management??including nasal saline??and Mucinex. ??Prescribed 7-day course of Augmentin. ??Return precautions given. Work note provided. Ordered: amoxicillin-clavulanate 875 mg-125 mg oral tablet, amoxicillin 1 tab, Oral, every 12 hr, # 14 tab, 0 Refill(s), Pharmacy: [facility], 167.6, cm, 12/17/23 13:23:00 EDT, Height, 129.5, kg, 12/17/23 13:29:00 EDT, Weight Dosing ? This document was prepared with dictation software. ??Errors may persist despite attempts to edit. ? Functional Status 12/17/23 Other exposure to Infectious Disease Non e [...] Medications amoxicillin-clavulanate 875 mg-125 mg oral tablet amoxicillin 1 tab, Oral, every 12 hr, # 14 tab, 0 Refill(s), Pharmacy: [facility], 167.6, cm, 12/17/23 13:23:00 EDT, Height, 129.5, kg, 12/17/23 13:29:00 EDT, Weight Dosing Start Date: 12/17/23 Stop Date: 12/24/23 Status: Ordered busPIRone 5 mg oral tablet 2 tab, Oral, TID, # 540 tab, 0 Refill(s), Pharmacy: [facility], 167.6, cm, 05/16/23 10:00:00 EDT, Height, 132.8, kg, 05/16/23 10:08:00 EDT, Weight Dosing Start Date: 10/15/23 Status: Ordered citalopram 40 mg oral tablet 1 tab, Oral, Daily, # 90 tab, 3 Refill(s), Pharmacy: [facility], 167.6, cm, 05/16/23 10:00:00 EDT, Height, 132.8, kg, 05/16/23 10:08:00 EDT, Weight Dosing Start Date: 06/25/23 Status: Ordered fexofenadine 180 mg oral tablet 180 mg = 1 tab, Oral, Daily, # 30 tab, 0 Refill(s), Pharmacy: [facility], 168, cm, 09/13/22 9:44:00 EDT, Height/Length Dosing, 130, kg, 09/13/22 9:44:00 EDT, Weight Dosing Start Date: 10/19/22 Status: Ordered fluticasone 50 mcg/inh nasal spray 2 sprays, !-Nasal, Daily, # 16 g, 5 Refill(s), Pharmacy: [facility], 167.6, cm, 05/15/2409:00:00 EDT, Height, 132.8, kg, 05/16/23 10:08:00 EDT, Weight Dosing Start Date: 06/26/23 Status: Ordered lisinopril 40 mg oral tablet 1 tab, Oral, Daily, # 90 tab, 3 Refill(s), Pharmacy: [facility], 167.6, cm, 05/16/23 10:00:00 EDT, Height, 132.8, kg, 05/16/23 10:08:00 EDT, Weight Dosing Start Date: 10/08/23 Status: Ordered LORazepam 1 mg oral tablet 1 mg = 1 tab, Oral, every 6 hr, PRN as needed for anxiety, # 15 tab, 1 Refill(s), Pharmacy: [facility], 167.6, cm, 05/16/23 10:00:00 EDT, Height, [...] Daily, # 90 tab, 3 Refill(s), Pharmacy: [facility], 167.6, cm, 05/16/23 10:00:00 [...] Daily, # 90 tab, 0 Refill(s), Pharmacy: [facility], 168, cm, 09/13/22 9:44:00 EDT, Height/Length Dosing, 130, kg, 09/13/22 9:44:00 EDT, Weight Dosing Start Date: 10/19/22 Status: Ordered SUMAtriptan 100 mg oral tablet 1 tab, Oral, every 24 hr, PRN NEEDED FOR HEADACHE,MAY REPEAT AFTER 2 HOURS (USE DIRECTED) FOR, # 9 tab, 12 Refill(s), Pharmacy: [facility], 168, cm, 09/13/22 9:44:00 EDT, Height/Length Dosing, 130, kg, 09/13/22 9:44:00 EDT, Weight Dosing Start Date: 11/28/22 Stop Date: 12/28/22 Status: Ordered topiramate 100 mg oral tablet 100 mg = 1 tab, Oral, BID, # 180 tab, 3 Refill(s), Pharmacy: [facility], 167.6, cm, 05/16/23 10:00:00 [...] index 40+ - severely obese Confirmed Active Congenital anomaly of cerebrovascular system [...] 1 Temperature Tympanic [36.6-38.1 Deg C] 3 6.3 Deg C *LOW* (12/17/23 1:23 PM) Peripheral Pulse Rate [60-100 bpm] 68 bp m (12/17/23 1: PM) Respiratory Rate [12-24 br/min] 17 br/mi n (12/17/23 1: PM) Blood Pressure [90-120/60-80 mmHg] 142/7 8mmHg *HI* (12/17/23 1:23 PM) Mean Arterial Pressure, Cuff [65-140 mmH g] 99 mmHg (12/17/23 1: PM) Weight 129.5 kg (12/17/23 1:23 PM) Weight Measured (lbs) 285.498 lb (12/17/23 1: PM) Weight Dosing 129.500 kg (12/17/23 1: PM) Height 167.6 cm (12/17/23 1:23 PM) Height/Length Measured (inches) 65.98 in ch (12/17/23 1:23 PM) BSA Measured 2.46 m2 (12/17/23 1:23 PM) Body Mass Index 46.1 kg/m2 (12/17/23 1:23 PM) Social History Social History Type Response Tobacco Never tobacco user T obacco Use:. 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 dizziness - walked into a wall, ears crackling, sinus presure. symptomsstarted 7 days ago. History of Present Illness Patient is a 37-year-old female with history of??allergic rhinitis, anxiety,??nonepileptic convulsions, hypertension,??and sinusitis who presents with concern for sinus infection. ??Reports symptoms began 7 days ago and have progressively worsened. She was last treated for sinusitis with Augmentin in May 2023. She uses Flonase, nasal rinses, antihistamines at baseline and these have not alleviated her symptoms. She has started a new job and requests work note for the visit today. Review of Systems Constitutional:?No??fevers,?No??chills,?No??sweats Eye:?No??recent visual problems ENT:?Positive for??ear pain,?Positive for??nasal congestion,?No??sore throat Respiratory:?No??shortness of breath,?No??cough Cardiovascular:?No??Chest pain,?No??palpitations,?No??syncope Gastrointestinal:?Nonausea,?No??vomiting,?No??diarrhea Genitourinary:?No??hematuria Neri/Lymph:?No??bruising tendency,?No??swollen lymph glands Endocrine:?No??excessive thirst,??No??excessive hunger Musculoskeletal:??No??back pain,??No??neck pain,??No??joint pain,??No??muscle pain,??No??decreased range of motion Integumentary:?No??rash,?No??pruritus,?No??abrasions Neurologic: Alert & oriented X 4 Psychiatric:?No??anxiety,?No??depression Physical Exam Vitals & Measurements T:??36.3?C ??(Tympanic)?? HR:??68??(Peripheral)?? RR:??17?? BP:??142/78?? SpO2:??99%?? HT:??167.6??cm?? WT:??129.5??kg?? BMI:??46.1?? BSA:??2.46?? General: Alert and oriented,??No??acute distress Eye: PERRL, EOMI,?Normal?conjunctiva HENT: Normocephalic, tympanic membranes bulging without erythema bilaterally,?Normal? hearing, moist oral mucosa,?No??scleral icterus,?No??frontal sinus tenderness, Positive for exquisitemaxillary sinus tenderness, right > left. Tonsillar enlargement 2+ bilaterally without exudate. Uvula midline Neck: Supple, non-tender,?No??carotid bruits,?No??JVD,?Positive for??lymphadenopathy Lungs:??Clear to auscultation?? Respiration:??Non-Labored Heart:?Regular rate,?Regular??rhythm,?No??murmur,?No??gallop,?No??edema Skin: Skin is warm, dry and pink,?No??rashes,?No??lesions Neurologic: Awake, alert and oriented X4, CN grossly intact Psychiatric: Cooperative, appropriate mood and affect Assessment/Plan 1.??Acute pansinusitis??J01.40 ??Clinical presentation consistent with acute maxillary sinusitis.?? Reviewed??CT head performed inJ2022 that showed mild thickening of the right paranasal sinus.?? That finding??following successful resolution of sinusitis 6+ weeks prior along with her history??make me suspicious for??some str uctural??abnormality that predisposes her to sinusitis. ??Encouraged her to use distilled or boiledtap water for nasal rinses rather than water straight from the tap.?? Discussed conservative management??including nasal saline??and Mucinex. ??Prescribed 7-day course of Augmentin. ??Return precautions given. Work note provided. Ordered: amoxicillin-clavulanate 875 mg-125 mg oral tablet, amoxicillin 1 tab, Oral, every 12 hr, # 14 tab, 0 Refill(s), Pharmacy: [facility], 167.6, cm, 12/17/23 13:23:00 EDT, Height, 129.5, kg, 12/17/23 13:29:00 EDT, Weight Dosing ? This document was prepared with dictation software. ??Errors may persist despite attempts to edit. ?? Problem List/Past Medical History Ongoing Allergic rhinitis Allergic rhinitis due to pollen Anxiety Body mass index 40+ - severely obese Congenital anomaly of cerebrovascular system Convulsion, non-epileptic Dissociative convulsions Essential hypertension Hemicrania continua Lesion of brain Multiple allergies Reaction to allergy injection Refractory migraine without aura Seizure Historical Acute pansinusitis Chronic frontal sinusitis Chronic maxillary sinusitis Chronic rhinitis History of clinical finding in subject Procedure/Surgical History ???Ablation??? section???Dilation and curettage???Surgery???Surgery???Tubal ligation Medications amoxicillin-clavulanate 875 mg-125 mg oral tablet, 1 tab, Oral, every 12 hr busPIRone 5 mg oral tablet, 2 tab, Oral, TID citalopram 40 mg oral tablet, 1 tab, Oral, Daily fexofenadine 180 mg [...] Comments : Unit: Unknown Electronically Signed on 12/17/2023 14:33 EDT Page JOSUE Obrien Patient Care team information Care Team Personnel Name: Medardo Sargent DO Position: Physician Member Role: Primary Care Physician Address: [address] [place] [phone] [place] Care Team Related Persons Name: GASPER LEDESMA Name: LEI BLACK Insurance Providers Guarantor name: CAMILA LEDESMA Health Plan Information #: 2 Payer: [place] Member Number: [id number] Policy Number: NA Health Plan Information #: 1 Payer: [facility] Member Number: [id number] Policy Number: NA
--- OUTSIDE RECORDS SUMMARY | 2024-01-13 19:02 | XMS_ITS | Continuity of Care Document ---
Author Organization [facility] Ambulatory Clinics Address [address] [place] [address] Care Team Providers Care Investment Manager Name Role Phone Medardo Sargent DO Primary Care Physician Encounter [facility] NBR [id number] Date(s): 12/19/21 - 12/19/21 [facility] Ambulatory Clinics [address] [place] [id number] Encounter Diagnosis Acute allergic rhinitis(Discharge Diagnosis) - 12/19/21 Discharge Disposition: Home or Self Care Attending Physician: Dion Maravilla DO Assessment and Plan Future Appointments Medications busPIRone 5 mg oral tablet 10 mg = 2 tab, Oral, TID, # 540 tab, 1 Refill(s), Pharmacy: [id number] Start Date: 12/05/21 Stop Date: 06/03/22 Status: Ordered lisinopril 40 mg oral tablet 1 tab, Oral, Daily, # 90 tab, 1 Refill(s), Pharmacy: [id number] Start Date: 11/26/21 Status: Ordered LORazepam 1 mg oral tablet 1 mg = 1 tab, Oral, every 6 hr, PRN as needed for anxiety, # 15 tab, 1 Refill(s), Pharmacy: [id number] Start Date: 12/18/21 Stop Date: 12/26/21 Status: Ordered Problem List Condition Confirmation Course Effective Dates Status [facility] Informant Allergic rhinitis due to pollen Confirmed Active Patient Care team information Personnel Name: Medardo Sargent DO Address: Address: [address] [place] [phone]
--- OUTSIDE RECORDS SUMMARY | 2024-01-13 19:02 | XMS_ITS | Continuity of Care Document ---
Author Organization [facility] Ambulatory Clinics Address [address] [place] [address] Care Team Providers Care Channel Partners Name Role Phone Medardo Sargent DO Primary Care Physician [phone] Encounter [facility] FIN NBR [id number] Date(s): 02/20/22 - 02/20/22 [facility] Ambulatory Clinics [address] [place], [place] [address] Encounter Diagnosis Acute pansinusitis(Discharge Diagnosis) - 02/20/22 Anxiety(Discharge Diagnosis) - 02/20/22 Discharge Disposition: Home or Self Care Attending Physician: Medardo Sargent DO Allergies, Adverse Reactions, Alerts Substance Reaction Severity Status acetaminophen-oxycodone palpitations Severe Acti ve Emgality 1 Headache Moderate Active 1300 MG dose, worsening headaches. Assessment and Plan Future Appointments Functional Status 02/20/22 Other exposure to Infectious Disease Non e Medications !-Augmentin 875 mg-125 mg oral tablet 1 tab, Oral, every 12 hr, # 20 tab, 0 Refill(s), Pharmacy: [id number] Start Date: 02/20/22 Stop Date: 03/02/22 Status: Ordered busPIRone 5 mg oral tablet 10 mg = 2 tab, Oral, TID, # 540 tab, 1 Refill(s), Pharmacy: [id number] Start Date: 12/05/21 Stop Date: [...] Daily, # 90 tab, 1 Refill(s), Pharmacy: [id number] Start Date: 11/26/21 Status: Ordered LORazepam 1 mg oral tablet 1 mg = 1 tab, Oral, every 6 hr, PRN as needed for anxiety, # 15 tab, 1 Refill(s), Pharmacy: [id number] Start Date: 12/18/21 Stop Date: [...] Seizure Confirmed Active Severe obesity Confirmed Active Vital Signs Most recent to oldest [Reference Range]: 1 Peripheral Pulse Rate [60-100 bpm] 74 bp m (02/20/22 9:06 AM) Blood Pressure [90-140/60-90 mmHg] 128/7 8mmHg (02/20/22 9:06 AM) Weight 129 kg (02/20/22 9:06 AM) Weight Measured (lbs) 284.396 lb (02/20/22 9:06 AM) [place] Body Weight Calculated 58.811 kg (02/20/22 9:06 AM) Height 167.1 cm (02/20/22 9:06 AM) Height/Length Measured (inches) 65.79 in (02/20/22 9:06 AM) BSA Measured 2.45 m2 (02/20/22 9:06 AM) Body Mass Index 46.2 kg/m2 (02/20/22 9:06 AM) Social History Social History Type Response Tobacco Never tobacco user T obacco Use:. Sex Hospital Discharge Instructions Follow Up Care 11/29/2021 09:41:07 With:Medardo Sargent DO Address: [address] [place] [phone] When:1 Year Patient Care team information Personnel Name: Medardo Sargent DO Address: Address: [address] [place] [phone]
--- OUTSIDE RECORDS SUMMARY | 2024-01-13 19:02 | XMS_ITS | Continuity of Care Document ---
Author Organization [facility] Ambulatory Clinics Address [address] [place] [address] Care Team Providers Care Wire Harness Assembler Name Role Phone Medardo Sargent DO Primary Care Physician Encounter [facility] FIN NBR [id number] Date(s): 07/03/22 - 07/03/22 [facility] Ambulatory Clinics [address] [place], [place] [address] Encounter Diagnosis Allergic rhinitis(Discharge Diagnosis) - 07/03/22 Discharge Disposition: Home or Self Care Attending Physician: Dion Maravilla DO Referring Physician: Dion Maravilla DO Allergies, Adverse Reactions, Alerts Substance Reaction Severity Status acetaminophen-oxycodone palpitations Severe Acti ve Emgality 1 Headache Moderate Active 1300 MG dose, worsening headaches. Assessment and Plan Future Appointments Medications !-Augmentin 875 mg-125 mg oral tablet 1 tab, Oral, every 12 hr, # 20 tab, 0 Refill(s), Pharmacy: [id number] Start Date: 02/20/22 Stop Date: 03/02/22 Status: Ordered busPIRone 5 mg oral tablet 10 mg = 2 tab, Oral, TID, # 540 tab, 1 Refill(s), Pharmacy: [id number] Start Date: 12/05/21 Stop Date: 06/03/22 Status: Ordered citalopram 40 mg oral tablet 90 EA, TAKE 1 TABLET BY MOUTH ONCE DAILY, 0 Refill(s) Start Date: 02/15/22 Status: Ordered fluticasone 50 mcg/inh nasal spray 2 sprays, Nasal, Daily, # 16 g, 5 Refill(s), Pharmacy: [id number] Start Date: 03/19/22 Status: Ordered levETIRAcetam 1000 mg oral tablet 180 EA, TAKE 1 TABLET BY MOUTH EVERY 12 HOURS, 0 Refill(s) Start Date: 02/15/22 Status: Ordered lisinopril 40 mg oral tablet 1 tab, Oral, Daily, # 90 tab, 1 Refill(s), Pharmacy: [id number] Start Date: 11/26/21 Status: Ordered LORazepam 1 mg oral tablet 1 mg = 1 tab, Oral, every 6 hr, PRN as needed for anxiety, # 15 tab, 1 Refill(s), Pharmacy: [facility] Start Date: 06/18/22 Stop Date: 06/26/22 Status: Ordered pantoprazole 40 mg oral delayed release tablet 40 mg = 1 tab, Oral, Daily, # 90 tab, 3 Refill(s), Pharmacy: [id number] Start Date: 05/24/22 Stop [...] # 180 tab, 3 Refill(s), Pharmacy: [id number] Start Date: 05/07/22 Status: [...] Member Role: Primary Care Physician Address: Address: [address] [place] [phone] [place] Care Team Related Persons Name: GASPER LEDESMA Name: LEI BLACK
--- OUTSIDE RECORDS SUMMARY | 2024-01-13 19:02 | XMS_ITS | Continuity of Care Document ---
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 information regarding your injury/illness. Diagnosis from Today's Visit Seizure-like activity Discharge Vitals Temperature??(Tympanic) 97.2 ??F (36.2 ??C) Heart Rate??(Peripheral) 62 Heart Rate??(Monitored) 64 Respiratory Rate?? 13 Blood Pressure?? 111/69?? Height?? 65.75 in (167.000 cm) Weight?? 286.65 lb (130.00 kg) BMI?? 47.000 Allergies acetaminophen-oxycodone??(palpitations) Emgality??(Headache) What to Do Next You Need to Schedule the Following Appointments Follow Up with??primary care physician When:??Within 3 to 5 days Why: please follow up with your neurologist as planned. Please do not drive or operate heavy machinery until cleared by your neurologist You were treated today on an emergency [...] 1 tablet by mouth twice daily ?? Education Materials Seizure, Adult A seizure is a sudden burst of abnormal electrical and chemical activity in the brain. Seizures usually last from 30 seconds to 2 minutes. The abnormal activity temporarily interrupts normal brain function. Many types of seizures can affect adults. A seizure can cause many different symptoms depending on where in the brain it starts. What are the causes? Common causes of this condition include: ? Fever or infection. ? Brain injury, head trauma, bleeding in the brain, or a brain tumor. ? Low levels of blood sugar or salt (sodium). ? Kidney problems or liver problems. ? Metabolic disorders or other conditions that are passed from parent to child (are inherited). ? Reaction to a substance, such as a drug or a medicine, or suddenly stopping the use of a substance (withdrawal). ? A stroke. ? Developmental disorders such as autism spectrum disorder or cerebral palsy. In some cases, the cause of a seizure may not be known. Some people who have a seizure never have another one. A person who has repeated seizures over time without a clear cause has a condition called epilepsy. What increases the risk? You are more likely to develop this condition if: ? You have a family history of epilepsy. ? You have had a tonic???clonic seizure before. This type of seizure causes tightening (contraction) of the muscles of the whole body and loss of consciousness. ? You have a history of head trauma, lack of oxygen at , or strokes. What are the signs or symptoms? There are many different types of seizures. The symptoms vary depending on the type of seizure you have. Symptoms occur during the seizure. They may also occur before a seizure (aura) and after a seizure (postictal). Symptoms may include the following: Symptoms during a seizure ? Uncontrollable shaking (convulsions) with fast, jerky movements of muscles. ? Stiffening of the body. ? Breathing problems. ? Confusion, staring, or unresponsiveness. ? Head nodding, eye blinking or fluttering, or rapid eye movements. ? Drooling, grunting, or making clicking sounds with your mouth. ? Loss of bladder control and bowel control. Symptoms before a seizure ? Fear or anxiety. ? Nausea. ? Vertigo. This is a feeling like: ? You are moving when you are not. ? Your surroundings are moving when they are not. ? D??j?? vu. This is a feeling of having seen or heard something before. ? Odd tastes or smells. ? Changes in vision, such as seeing flashing lights or spots. Symptoms after a seizure ? Confusion. ? Sleepiness. ? Headache. ? Sore muscles. How is this diagnosed? This condition may be diagnosed based on: ? A description of your symptoms. Video of your seizures can be helpful. ? Your medical history. ? A physical exam. You may also have tests, including: ? Blood tests. ? CT scan. ? MRI. ? Electroencephalogram (EEG). This test measures electrical activity in the brain. An EEG can predictwhether seizures will return. ? A spinal tap, also called a lumbar puncture. This is the removal and testing of fluid that surrounds the brain and spinal cord. How is this treated? Most seizures will stop on their own in less than 5 minutes, and no treatment is needed. Seizures that last longer than 5 minutes will usually need treatment. Seizures may be treated with: ? Medicines given through an IV. ? Avoiding known triggers, such as medicines that you take for another condition. ? Medicines to control seizures or prevent future seizures (antiepileptics), if epilepsy caused your seizures. ? Medical devices to prevent and control seizures. ? Surgery to stop seizures or to reduce how often seizures happen, if you have epilepsy that does notrespond to medicines. ? A diet low in carbohydrates and high in fat (ketogenic diet). Follow these instructions at home: Medicines ? Take jmcu-qfl-bkqlopy and prescription medicines only as told by your health care provider. ? Avoid any substances that may prevent your medicine from working properly, such as alcohol. Activity ? Follow instructions about activities, such as driving or swimming, that would be dangerous if you had another seizure. Wait until your health care provider says it is safe to do them. ? If you live in the [place] check with your local department of motor vehicles (DMV) to find out aboutlocal driving laws. Each state has specific rules about when you can legally drive again. ? Get enough rest. Lack of sleep can make seizures more likely to occur. Educating others ? Teach friends and family what to do if you have a seizure. They should: ? Help you get down to the ground, to prevent a fall. ? Cushion your head and move items away from your body. ? Loosen any tight clothing around your neck. ? Turn you on your side. If you vomit, this helps keep your airway clear. ? Know whether or not you need emergency care. ? Stay with you until you recover. ? Also, tell them what not to do if you have a seizure. Tell them: ? They should not hold you down. Holding you down will not stop the seizure. ? They should not put anything in your mouth. General instructions ? Avoid anything that has ever triggered a seizure for you. ? Keep a seizure diary. Record what you remember about each seizure, especially anything that might have triggered it. ? Keep all follow-up visits. This is important. Contact a health care provider if: ? You have another seizure or seizures. Call each time you have a seizure. ? Your seizure pattern changes. ? You continue to have seizures with treatment. ? You have symptoms of an infection or illness. Either of these might increase your risk of having a seizure. ? You are unable to take your medicine. Get help right away if: ? You have: ? A seizure that does not stop after 5 minutes. ? Several seizures in a row without a complete recovery between seizures. ? A seizure that makes it harder to breathe. ? A seizure that leaves you unable to speak or use a part of your body. ? You do not wake up right away after a seizure. ? You injure yourself during a seizure. ? You have confusion or pain right after a seizure. These symptoms may represent a serious problem that is an emergency. Do not wait to see if the symptoms will go away. Get medical help right away. Call your local emergency services (911 in the [place] Do not drive yourself to the hospital. Summary ? Seizures are caused by abnormal electrical and chemical activity in the brain. The activity disrupts normal brain function and can cause various symptoms. ? Seizures have many causes, including illness, head injuries, low levels of blood sugar or salt, andcertain conditions. ? Most seizures will stop on their own in less than 5 minutes. Seizures that last longer than 5 minutes are a medical emergency and need treatment right away. ? Many medicines are used to treat seizures. Take guib-xfk-zwfzrhf and prescription medicines only astold by your health care provider. This information is not intended to replace advice given to you by your health care provider. Make sure you discuss any questions you have with your health care provider. Document Revised: 08/12/2020 Document Reviewed: 08/12/2020 [employer] Patient Education ?? 2022 [employer]. Tests Performed Medications and Immunizations Administered Given acetaminophen, 1000 mg, Oral ketorolac, 30 mg, IV Push Lab Test Name Test Result Date/Time WBC 7.9 K/mcL 09/11/2022 13:40 EDT RBC 4.04 Million/mcL 09/11/2022 13:40 EDT Hgb 12.2 g/dL 09/11/2022 13:40 EDT Hct 36.7 % 09/11/2022 13:40 EDT MCV 90.8 fL 09/11/2022 13:40 EDT MCH 30.2 pg 09/11/2022 13:40 EDT MCHC 33.2 g/dL 09/11/2022 13:40 EDT RDW-CV 12.5 % 09/11/2022 13:40 EDT Platelets 237 K/mcL 09/11/2022 13:40 EDT MPV 10.2 fL 09/11/2022 13:40 EDT Neutro Auto 67.5 % 09/11/2022 13:40 EDT Lymph Auto 24.0 % 09/11/2022 13:40 EDT [place] Auto 6.3 % 09/11/2022 13:40 EDT Eos, Auto 1.40 % 09/11/2022 13:40 EDT Basophil Auto 0.4 % 09/11/2022 13:40 EDT Imm Gran Auto 0.4 % 09/11/2022 13:40 EDT Neutro Absolute 5.4 K/mcL 09/11/2022 13:40 EDT Lymph Absolute 1.9 K/mcL 09/11/2022 13:40 EDT [place] Absolute 0.5 K/mcL 09/11/2022 13:40 EDT Eos Absolute 0.1 K/mcL 09/11/2022 13:40 EDT Baso Absolute 0.0 K/mcL 09/11/2022 13:40 EDT Imm Gran Absolute 0.03 09/11/2022 13:40 EDT Sodium Level 134 mmol/L 09/11/2022 13:40 EDT Potassium Level 3.6 mmol/L 09/11/2022 13:40 EDT Chloride Level 106 mmol/L 09/11/2022 13:40 EDT CO2 20 mmol/L 09/11/2022 13:40 EDT Alk Phos 46 IntlUnit/L 09/11/2022 13:40 EDT AST 26 IntlUnit/L 09/11/2022 13:40 EDT ALT 29 IntlUnit/L 09/11/2022 13:40 EDT BUN 7 mg/dL 09/11/2022 13:40 EDT Glucose Level 110 mg/dL 09/11/2022 13:40 EDT Creatinine Level 0.78 mg/dL 09/11/2022 13:40 EDT BUN/Creat Ratio 9.0 09/11/2022 13:40 EDT eGFR CKD-EPI 100 mL/min/1.73 m2 09/11/2022 13:40 EDT Calcium Level 8.9 mg/dL 09/11/2022 13:40 EDT Protein Total 6.8 g/dL 09/11/2022 13:40 EDT Albumin Level 3.7 g/dL 09/11/2022 13:40 EDT Globulin 3.1 09/11/2022 13:40 EDT A/G Ratio 1.2 09/11/2022 13:40 EDT Bilirubin Total 0.4 mg/dL 09/11/2022 13:40 EDT Anion Gap 8.0 09/11/2022 13:40 EDT Osmolality 267 mOsm/kg 09/11/2022 13:40 EDT hCG Qual Serum Negative 09/11/2022 13:40 EDT U Amph Scrn NEG 09/11/2022 14:25 EDT U Ronel Scrn NEG 09/11/2022 14:25 EDT U Benzodia Scrn NEG 09/11/2022 14:25 EDT U Buprenorph Scr NEG 09/11/2022 14:25 EDT U Cocaine Scrn NEG 09/11/2022 14:25 EDT U TCA Scr NEG 09/11/2022 14:25 EDT U THC Scr POS 09/11/2022 14:25 EDT U mAMP Scr NEG 09/11/2022 14:25 EDT U Methadone Scr NEG 09/11/2022 14:25 EDT U Opiate Scrn NEG 09/11/2022 14:25 EDT U Oxy Scrn NEG 09/11/2022 14:25 EDT U PCP Scrn NEG 09/11/2022 14:25 EDT U PPX Scr NEG 09/11/2022 14:25 EDT Patient/Map Drafter Signature Patient Name:CAMILA LEDESMA I have received this information and my questions have been answered. Patient/Map Drafter Name: Patient/Map Drafter Signature: Relationship to Patient: Witness Name/Signature: Date: Electronically Signed on: 09/11/2022 16:30 EDTSigned by:AF Patient Care team information Care Team Personnel Name: Medardo Sargent DO Position: Physician Member Role: Primary Care Physician Address: Address: [address] [place], [place] [id number] [address] Name: Mary Good MD Position: Physician Member Role: Admitting Physician Address: Address: [address] [place] [address] Name: Zehra Bernstein Position: Nurse Member Role: ED Nurse Care Team Related Persons Name: GASPER LEDESMA Name: LEI BLACK
--- OUTSIDE RECORDS SUMMARY | 2024-01-13 19:02 | XMS_ITS | Continuity of Care Document ---
Author Organization [facility] Ambulatory Clinics Address [address] [place] [address] Care Team Providers Care Magazine Editor Name Role Phone Medardo Sargent DO Primary Care Physician [phone] Encounter [facility] FIN NBR [id number] Date(s): 03/13/22 - 03/13/22 [facility]ulatory [facility] [address] [place], [place] [address] Encounter Diagnosis Allergic rhinitis(Discharge Diagnosis) - 03/13/22 Discharge Disposition: Home or Self Care Attending Physician: Dion Maravilla DO Allergies, Adverse Reactions, Alerts Substance Reaction Severity Status acetaminophen-oxycodone palpitations Severe Acti ve Emgality 1 Headache Moderate Active 1300 MG dose, worsening headaches. Assessment and Plan Future Appointments Medications !-Augmentin 875 mg-125 mg oral tablet 1 tab, Oral, every 12 hr, # 20 tab, 0 Refill(s), Pharmacy: [id number] Start Date: 02/20/22 Stop Date: 03/02/22 Status: Ordered busPIRone 5 mg oral tablet 10 mg = 2 tab, Oral, TID, # 540 tab, 1 Refill(s), Pharmacy: [facility] Start Date: 12/05/21 Stop Date: [...] Daily, # 90 tab, 1 Refill(s), Pharmacy: [facility] Start Date: 11/26/21 Status: Ordered LORazepam 1 mg oral tablet 1 mg = 1 tab, Oral, every 6 hr, PRN as needed for anxiety, # 15 tab, 1 Refill(s), Pharmacy: [facility] 4389 Start Date: 12/18/21 Stop Date: 12/26/21 [...] Personnel Name: Medardo Sargent DO Address: Address: [address] [place] [phone]
--- OUTSIDE RECORDS SUMMARY | 2024-01-13 19:03 | XMS_ITS | Continuity of Care Document ---
Author Organization [facility] Ambulatory Clinics Address [address] [place] [address] Care Team Providers Care Spot Worker Name Role Phone Medardo Sargent DO Primary Care Physician [phone] Encounter [facility] FIN NBR [id number] Date(s): 05/16/23 - 05/16/23 [facility] Ambulatory Clinics [address] [place] [address]- Encounter Diagnosis Routine adult health maintenance(Discharge Diagnosis) - 05/16/23 Discharge Disposition: Home or Self Care Attending Physician: Medardo Sargent DO Allergies, Adverse Reactions, Alerts Substance Reaction Severity Status acetaminophen-oxycodone palpitations Severe Acti ve Emgality 1 Headache Moderate Active 1300 MG dose, worsening headaches. Assessment and Plan Extracted from: Title:Office Visit Note Author:Medardo Sargent DO Date:05/16/23 1.??Routine adult health sana ntenance??Z00.00 ??37-year-old female, seems to be doing okay.?? Follow-up neurology as scheduled.?? Declines any screening labs. ??Refilled some of her medications. ??Will follow- up in a year or sooner as needed. Orders: citalopram 40 mg oral tablet, 40 mg = 1 tab, Oral, Daily, # 90 tab, 3 Refill(s), Pharmacy: [facility] LORazepam 1 mg oral tablet, 1 mg = 1 tab, Oral, every 6 hr, PRN as needed for anxiety, # 15 tab, 1 Refill(s), Pharmacy: [facility], 167.6, cm, 05/16/23 10:00:00 EDT, Height, 132.8, kg, 05/16/23 10:08:00 EDT, Weight Dosing topiramate 100 mg oral tablet, 100 mg = 1 tab, Oral, BID, # 180 tab, 3 Refill(s), Pharmacy: [facility], 167.6, cm, 05/16/23 10:00:00 EDT, Height, 132.8, kg, 05/16/23 10:08:00 EDT, Weight Dosing Future Scheduled Tests Radiology* MRI Brain w/ [...] age/dates Medications busPIRone 5 mg oral tablet 2 tab, Oral, TID, # 540 tab, 3 Refill(s), Pharmacy: [facility], 168, cm, 09/13/22 9:44:00 EDT, Height/Length Dosing, 130, kg, 09/13/22 9:44:00 EDT, Weight Dosing Start Date: 10/31/22 Status: Ordered citalopram 40 mg oral tablet 40 mg = 1 tab, Oral, Daily, # 90 tab, 3 Refill(s), Pharmacy: [facility] 4[facility] Start Date: 07/09/22 Status: Ordered fexofenadine 180 mg oral tablet 180 mg = 1 tab, Oral, Daily, # 30 tab, 0 Refill(s), Pharmacy: [facility], 168, cm, 09/13/22 9:44:00 EDT, Height/Length Dosing, 130, kg, 09/13/22 9:44:00 EDT, Weight Dosing Start Date: 10/19/22 Status: Ordered fluticasone 50 mcg/inh nasal spray 2 sprays, Nasal, Daily, # 16 g, 5 Refill(s), Pharmacy: [facility] 4389 Start Date: 03/19/22 Status: Ordered lisinopril 40 mg oral tablet 1 tab, Oral, Daily, # 90 tab, 3 Refill(s), Pharmacy: [id number] Start Date: 07/19/22 Status: Ordered LORazepam 1 mg oral tablet 1 mg = 1 tab, Oral, every 6 hr, PRN as needed for anxiety, # 15 tab, 1 Refill(s), Pharmacy: [facility] [address], 167.6, cm, 05/16/23 10:00:00 EDT, Height, 132.8, [...] Daily, # 90 tab, 3 Refill(s), Pharmacy: [facility] [id number] Start Date: 05/24/22 Stop Date: 05/19/23 Status: Ordered pyridoxine 100 mg oral tablet 100 mg = 1 tab, Oral, Daily, # 90 tab, 0 Refill(s) Start Date: 02/15/22 Stop Date: 05/16/22 Status: Ordered Singulair 10 mg oral tablet 10 mg = 1 tab, Oral, Daily, # 90 tab, 0 Refill(s), Pharmacy: [facility] [address], 168, cm, 09/13/22 9:44:00 EDT, Height/Length Dosing, 130, kg, 09/13/22 9:44:00 EDT, Weight Dosing Start Date: 10/19/22 Status: Ordered SUMAtriptan 100 mg oral tablet 1 tab, Oral, every 24 hr, PRN NEEDED FOR HEADACHE,MAY REPEAT AFTER 2 HOURS (USE DIRECTED) FOR, # 9 tab, 12 Refill(s), Pharmacy: [facility] [address], 168, cm, 09/13/22 9:44:00 EDT, Height/Length Dosing, 130, kg, 09/13/22 9:44:00 EDT, Weight Dosing Start Date: 11/28/22 Stop Date: 12/28/22 Status: Ordered topiramate 100 mg oral tablet 100 mg = 1 tab, Oral, BID, # 180 tab, 3 Refill(s), Pharmacy: [facility], 167.6, cm, 05/16/23 [...] Range]: 1 Peripheral Pulse Rate [60-100 bpm] 76 bp m (05/16/23 10:00 AM) Blood Pressure [90-140/60-90 mmHg] 120/8 4mmHg (05/16/23 10:00 AM) Mean Arterial Pressure, Cuff [65-140 mmH g] 96 mmHg (05/16/23 10:00 AM) Weight 132.8 kg (05/16/23 10:00 AM) Weight Measured (lbs) 292.774 lb (05/16/23 10:00 AM) Weight Dosing 132.800 kg (05/16/23 10:00 AM) [place] Body Weight Calculated 59.264 kg (05/16/23 10:00 AM) Height 167.6 cm (05/16/23 10:00 AM) Height/Length Measured (inches) 65.98 in ch (05/16/23 10:00 AM) BSA Measured 2.49 m2 (05/16/23 10:00 AM) Body Mass Index 47.28 kg/m2 (05/16/23 10:00 AM) Social History Social History Type Response Tobacco Never tobacco user T obacco Use:. Sex Hospital Discharge Instructions Follow Up Care 05/14/2023 09:33:18 With:Medardo Sargent DO Address: [address] [place] [id number] When:1 Year Physician Outpatient Note * Medardo Sargent DO: PERFORM Event Display: Office Clinic Note Physician Authored Date: [id number] BALTAZAR CAMILA Palma :1985 Age:37 years Sex:Female Visit Date:05/16/2023 Primary Care Physician: Medardo Sargent DO Chief Complaint Patient here today for annual phsical History of Present Illness Patient is a 37-year-old female who comes in today for her annual physical.?? She says she feels okay.?? Seeing neurology.?? Trying the Nurtec.?? Declines any labs. Review of Systems See HPI otherwise negative. Physical Exam Vitals & Measurements HR:??76??(Peripheral)?? BP:??120/84?? SpO2:??97%?? HT:??167.6??cm?? WT:??132.8??kg?? BMI:??47.28?? BSA:??2.49?? General: Alert and oriented, well nourished,?No??acute distress Lungs: Clear to auscultation and percussion,?Non-labored?? respiration Heart:?Normal? rate,?Regular??rhythm,?No??murmur,?No??gallop,?No??edema Abdomen: Soft, non-tender, non-distended,?Normal? bowel sounds,?No??masses Musculoskeletal:?Normal? range of motion and strength,?No??tenderness,?No??swelling ?? Assessment/Plan 1.??Routine adult health maintenance??Z00.00 ??37-year-old female, seems to be doing okay.?? Follow-up neurology as scheduled.?? Declines any screening labs. ??Refilled some of her medications. ??Will follow-up in a year or sooner as needed. Orders: citalopram 40 mg oral tablet, 40 mg = 1 tab, Oral, Daily, # 90 tab, 3 Refill(s), Pharmacy: [facility] 4389 LORazepam 1 mg oral tablet, 1 mg = 1 tab, Oral, every 6 hr, PRN as needed for anxiety, # 15 tab, 1 Refill(s), Pharmacy: [facility], 167.6, cm, 05/16/23 10:00:00 EDT, Height, 132.8, kg, 05/16/23 10:08:00 EDT, Weight Dosing topiramate 100 mg oral tablet, 100 mg = 1 tab, Oral, BID, # 180 tab, 3 Refill(s), Pharmacy: [facility] 4389, 167.6, cm, 05/16/23 10:00:00 EDT, Height, 132.8, kg, 05/16/23 10:08:00 EDT, Weight Dosing Follow Up Instructions With When Contact Information Medardo Sargent DO Within 1 Year [address] [place] [address] Additional Instructions: Problem List/Past Medical History Ongoing Allergic rhinitis [...] Comments : Unit: Unknown Electronically Signed on 05/16/23 11:27 AM Medardo Sargent DO Patient Care team information Care Team Personnel Name: Medardo Sargent DO Position: Physician Member Role: Primary Care Physician Address: Address: [address] [place] [phone] [place] Care Team Related Persons Name: GASPER LEDESMA Name: LEI BLACK
--- OUTSIDE RECORDS SUMMARY | 2024-01-13 19:03 | XMS_ITS | Continuity of Care Document ---
Author Organization [facility] Ambulatory Clinics Address [address] [place] [address] Care Team Providers Care Pick Up Worker Name Role Phone Medardo Sargent DO Primary Care Physician Encounter [facility] FIN NBR [id number] Date(s): 07/10/22 - 07/10/22 [facility] Clinics [address] [place], [place] [address] Encounter Diagnosis Allergic rhinitis(Discharge Diagnosis) - 07/10/22 Discharge Disposition: Home or Self Care Attending Physician: Dion Maravilla DO Referring Physician: Dion Maravilla DO Allergies, Adverse Reactions, Alerts Substance Reaction Severity Status acetaminophen-oxycodone palpitations Severe Acti ve Emgality 1 Headache Moderate Active 1300 MG dose, worsening headaches. Assessment and Plan Future Appointments Medications !-Augmentin 875 mg-125 mg oral tablet 1 tab, Oral, every 12 hr, # 20 tab, 0 Refill(s), Pharmacy: [facility] Start Date: 02/20/22 Stop Date: 03/02/22 Status: Ordered busPIRone 5 mg oral tablet 10 mg = 2 tab, Oral, TID, # 540 tab, 1 Refill(s), Pharmacy: [facility] 4[facility] Start Date: 12/05/21 Stop Date: 06/03/22 Status: Ordered citalopram 40 mg oral tablet See Instructions, Take 1 tablet by mouth once daily, # 90 tab, 3 Refill(s), Pharmacy: [facility] Start Date: 07/09/22 Status: Ordered fluticasone 50 mcg/inh nasal spray 2 sprays, Nasal, Daily, # 16 g, 5 Refill(s), Pharmacy: [facility] Start Date: 03/19/22 Status: Ordered levETIRAcetam 1000 mg oral tablet 180 EA, TAKE 1 TABLET BY MOUTH EVERY 12 HOURS, 0 Refill(s) Start Date: 02/15/22 Status: Ordered lisinopril 40 mg oral tablet 1 tab, Oral, Daily, # 90 tab, 1 Refill(s), Pharmacy: [facility] Start Date: 11/26/21 Status: Ordered LORazepam 1 mg oral tablet 1 mg = 1 tab, Oral, every 6 hr, PRN as needed for anxiety, # 15 tab, 1 Refill(s), Pharmacy: [facility] 4389 Start Date: 06/18/22 Stop Date: 06/26/22 Status: Ordered pantoprazole 40 mg oral delayed release tablet 40 mg = 1 tab, Oral, Daily, # 90 tab, 3 Refill(s), Pharmacy: [facility] Start Date: 05/24/22 [...] daily, # 180 tab, 3 Refill(s), Pharmacy: [facility] Start Date: 05/07/22 [...] Role: Primary Care Physician Address: Address: [address] [place] [address] [place] Care Team Related Persons Name: GASPER LEDESMA Name: LEI BLACK
--- OUTSIDE RECORDS SUMMARY | 2024-01-13 19:03 | XMS_ITS | Continuity of Care Document ---
Author Organization [facility] Ambulatory Clinics Address [address] [place] [address] Care Team Providers Care Patient Liaison Name Role Phone Medardo Sargent DO Primary Care Physician Encounter [facility] FIN NBR [id number] Date(s): 01/16/22 - 01/16/22 [facility] Ambulatory Clinics [address] [place] [id number] Encounter Diagnosis Allergic rhinitis(Discharge Diagnosis) - 01/16/22 Discharge Disposition: Home or Self Care Attending Physician: Dion Maravilla DO Assessment and Plan Future Appointments Medications busPIRone 5 mg oral tablet 10 mg = 2 tab, Oral, TID, # 540 tab, 1 Refill(s), Pharmacy: [id number] Start Date: 12/05/21 Stop Date: 06/03/22 Status: Ordered lisinopril 40 mg oral tablet 1 tab, Oral, Daily, # 90 tab, 1 Refill(s), Pharmacy: [id number] Start Date: 11/26/21 Status: Ordered LORazepam 1 mg oral tablet 1 mg = 1 tab, Oral, every 6 hr, PRN as needed for anxiety, # 15 tab, 1 Refill(s), Pharmacy: [facility] Start Date: 12/18/21 Stop Date: 12/26/21 Status: Ordered Problem List Condition Confirmation Course Effective Dates Status Health St [facility] Informant Allergic rhinitis due to pollen Confirmed Active Patient Care team information Personnel Name: Medardo Sargent DO Address: Address: [address] [place] [phone]
--- OUTSIDE RECORDS SUMMARY | 2024-01-13 19:03 | XMS_ITS | Continuity of Care Document ---
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 Name Role Phone Medardo Sargent DO Primary Care Physician [phone] Encounter [facility] NBR [id number] Date(s): 12/12/21 - 12/12/21 [facility] Ambulatory Clinics [address] [place] [id number] Encounter Diagnosis Acute allergic rhinitis(Discharge Diagnosis) - 12/13/21 Discharge Disposition: Home or Self Care Attending Physician: Dion Maravilla DO Assessment and Plan Future Appointments Medications busPIRone 5 mg oral tablet 10 mg = 2 tab, Oral, TID, # 540 tab, 1 Refill(s), Pharmacy: [facility] [id number] Start Date: 12/05/21 Stop Date: 06/03/22 Status: Ordered lisinopril 40 mg oral tablet 1 tab, Oral, Daily, # 90 tab, 1 Refill(s), Pharmacy: [facility] [id number] Start Date: 11/26/21 Status: Ordered Problem List Condition Confirmation Course Effective Dates Status Health St at[facility] Informant Allergic rhinitis due to pollen Confirmed Active Patient Care team information Personnel Name: Medardo Sargent DO Address: Address: [address] [place] [phone] [place]
--- OUTSIDE RECORDS SUMMARY | 2024-01-13 19:03 | XMS_ITS | Continuity of Care Document ---
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 Assessment and Plan Future Appointments Medications !-Augmentin 875 mg-125 mg oral tablet 1 tab, Oral, every 12 hr, # 20 tab, 0 Refill(s), Pharmacy: [facility] [id number] Start Date: 02/20/22 Stop Date: 03/02/22 Status: Ordered busPIRone 5 mg oral tablet 10 mg = 2 tab, Oral, TID, # 540 tab, 1 Refill(s), [email or web address] Start Date: 12/05/21 Stop Date: 06/03/22 Status: Ordered citalopram 40 mg oral tablet 90 EA, TAKE 1 TABLET BY MOUTH ONCE DAILY, 0 Refill(s) Start Date: 02/15/22 Status: Ordered fluticasone 50 mcg/inh nasal spray 2 sprays, Nasal, Daily, # 16 g, 5 Refill(s), Pharmacy: [facility] [id number] Start Date: 03/19/22 Status: Ordered levETIRAcetam 1000 mg oral tablet 180 EA, TAKE 1 TABLET BY MOUTH EVERY 12 HOURS, 0 Refill(s) Start Date: 02/15/22 Status: Ordered lisinopril 40 mg oral tablet 1 tab, Oral, Daily, # 90 tab, 1 Refill(s), Pharmacy: [facility] [id number] Start Date: 11/26/21 Status: Ordered LORazepam 1 mg oral tablet 1 mg = 1 tab, Oral, every 6 hr, PRN as needed for anxiety, # 15 tab, 1 Refill(s), [facility] Start Date: 12/18/21 Stop Date: 12/26/21 [...] Personnel Name: Medardo Sargent DO Address: Address: [address] [place] [phone]
--- OUTSIDE RECORDS SUMMARY | 2024-01-13 19:03 | XMS_ITS | Continuity of Care Document ---
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 Assessment and Plan Future Appointments Medications !-Augmentin 875 mg-125 mg oral tablet 1 tab, Oral, every 12 hr, # 20 tab, 0 Refill(s), Pharmacy: [id number] Start Date: 02/20/22 Stop Date: 03/02/22 Status: Ordered busPIRone 5 mg oral tablet 10 mg = 2 tab, Oral, TID, # 540 tab, 1 Refill(s), [facility] Start Date: 12/05/21 Stop Date: 06/03/22 Status: Ordered citalopram 40 mg oral tablet 90 EA, TAKE 1 TABLET BY MOUTH ONCE DAILY, 0 Refill(s) Start Date: 02/15/22 Status: Ordered fluticasone 50 mcg/inh nasal spray 2 sprays, Nasal, Daily, # 16 g, 5 Refill(s), Pharmacy: [facility] [id number] Start Date: 03/19/22 Status: Ordered levETIRAcetam 1000 mg oral tablet 180 EA, TAKE 1 TABLET BY MOUTH EVERY 12 HOURS, 0 Refill(s) Start Date: 02/15/22 Status: Ordered lisinopril 40 mg oral tablet 1 tab, Oral, Daily, # 90 tab, 1 Refill(s), Pharmacy: [facility] 4389 Start Date: 11/26/21 Status: Ordered LORazepam 1 mg oral tablet 1 mg = 1 tab, Oral, every 6 hr, PRN as needed for anxiety, # 15 tab, 1 Refill(s), [facility] Start Date: 06/18/22 Stop Date: 06/26/22 Status: Ordered pantoprazole 40 mg oral delayed release tablet 40 mg = 1 tab, Oral, Daily, # 90 tab, 3 Refill(s), Pharmacy: [facility] 4389 Start Date: 05/24/22 Stop [...] daily, # 180 tab, 3 Refill(s), Pharmacy: [facility] 4389 Start Date: 05/07/22 Status: [...] Member Role: Primary Care Physician Address: Address: [address] [place] [phone] [place] Care Team Related Persons Name: GASPER LEDESMA Name: LEI BLACK
--- OUTSIDE RECORDS SUMMARY | 2024-01-13 19:03 | XMS_ITS | Continuity of Care Document ---
Author Organization [facility] Ambulatory Clinics Address [address] [place] [address] Care Team Providers Care Emergency Medicine Name Role Phone Medardo Sargent DO Primary Care Physician Encounter [facility] NBR [id number] Date(s): 12/16/23 - 12/16/23 [facility] Ambulatory Clinics [address] [place], [place] [address] Discharge Disposition: Home Allergies, Adverse Reactions, Alerts Substance Criticality Severity Reaction Reaction Severity Status acetaminophen-oxycodo ne High criticality Severe palpitations Active Emgality 1 High criticality Moderate Headache Ac tive 1300 MG dose, worsening headaches. Immunizations Given [...] hr, # 14 tab, 0 Refill(s), Pharmacy: [facility], 167.6, cm, 12/17/23 13:23:00 EDT, Height, 129.5, kg, 12/17/23 13:29:00 EDT, Weight Dosing Start Date: 12/17/23 Stop Date: 12/24/23 Status: Ordered busPIRone 5 mg oral tablet 2 tab, Oral, TID, # 540 tab, 0 Refill(s), Pharmacy: [facility]389, 167.6, cm, 05/16/23 10:00:00 EDT, Height, 132.8, kg, 05/16/23 10:08:00 EDT, Weight Dosing Start Date: 10/15/23 Status: Ordered citalopram 40 mg oral tablet 1 tab, Oral, Daily, # 90 tab, 3 Refill(s), Pharmacy: [facility]389, 167.6, cm, 05/16/23 10:00:00 EDT, Height, 132.8, kg, 05/16/23 10:08:00 EDT, Weight Dosing Start Date: 06/25/23 Status: Ordered fexofenadine 180 mg oral tablet 180 mg = 1 tab, Oral, Daily, # 30 tab, 0 Refill(s), Pharmacy: [facility], 168, cm, 09/13/22 9:44:00 EDT, Height/Length Dosing, 130, kg, 09/13/22 9:44:00 EDT, Weight Dosing Start Date: 10/19/22 Status: Ordered fluticasone 50 mcg/inh nasal spray 2 sprays, !-Nasal, Daily, # 16 g, 5 Refill(s), Pharmacy: [facility] 4389, 167.6, cm, 05/15/2409:00:00 EDT, Height, 132.8, kg, 05/16/23 10:08:00 EDT, Weight Dosing Start Date: 06/26/23 Status: Ordered lisinopril 40 mg oral tablet 1 tab, Oral, Daily, # 90 tab, 3 Refill(s), Pharmacy: [facility]389, 167.6, cm, 05/16/23 10:00:00 EDT, Height, 132.8, kg, 05/16/23 10:08:00 EDT, Weight Dosing Start Date: 10/08/23 Status: Ordered LORazepam 1 mg oral tablet 1 mg = 1 tab, Oral, every 6 hr, PRN as needed for anxiety, # 15 tab, 1 Refill(s), Pharmacy: [facility] 4389, 167.6, cm, 05/16/23 10:00:00 EDT, [...] Daily, # 90 tab, 3 Refill(s), Pharmacy: [facility]389, 167.6, cm, 05/16/23 10:00:00 [...] Daily, # 90 tab, 0 Refill(s), Pharmacy: [facility]389, 168, cm, 09/13/22 9:44:00 EDT, Height/Length Dosing, 130, kg, 09/13/22 9:44:00 EDT, Weight Dosing Start Date: 10/19/22 Status: Ordered SUMAtriptan 100 mg oral tablet 1 tab, Oral, every 24 hr, PRN NEEDED FOR HEADACHE,MAY REPEAT AFTER 2 HOURS (USE DIRECTED) FOR, # 9 tab, 12 Refill(s), Pharmacy: [facility]389, 168, cm, 09/13/22 9:44:00 EDT, Height/Length Dosing, 130, kg, 09/13/22 9:44:00 EDT, Weight Dosing Start Date: 11/28/22 Stop Date: 12/28/22 Status: Ordered topiramate 100 mg oral tablet 100 mg = 1 tab, Oral, BID, # 180 tab, 3 Refill(s), Pharmacy: [facility] 4389, 167.6, cm, 05/16/23 10:00:00 [...] obacco Use:. Sex Sex Representation Female (finding) Patient Care team information Care Team Personnel Name: Medardo Sargetn DO Position: Physician Member Role: Primary Care Physician Address: [address] [place] [phone] [place] Care Team Related Persons Name: GASPER LEDESMA Name: LEI BLACK Insurance Providers Guarantor name: CAMILA LEDESMA Health Plan Information #: 1 Payer: [facility] Member Number: NA Policy Number: NA Health Plan Information #: 2 Payer: [place]ICAID [place] Member Number: NA Policy Number: NA
--- OUTSIDE RECORDS SUMMARY | 2024-01-13 19:03 | XMS_ITS | Continuity of Care Document ---
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 Assessment and Plan Future Appointments Medications !-Augmentin 875 mg-125 mg oral tablet 1 tab, Oral, every 12 hr, # 20 tab, 0 Refill(s), [facility] Start Date: 02/20/22 Stop Date: 03/02/22 Status: Ordered busPIRone 5 mg oral tablet 10 mg = 2 tab, Oral, TID, # 540 tab, 1 Refill(s), Pharmacy: [facility] 4389 Start Date: 12/05/21 Stop Date: 06/03/22 Status: Ordered citalopram 40 mg oral tablet 90 EA, TAKE 1 TABLET BY MOUTH ONCE DAILY, 0 Refill(s) Start Date: 02/15/22 Status: Ordered fluticasone 50 mcg/inh nasal spray 2 sprays, Nasal, Daily, # 16 g, 5 Refill(s), Pharmacy: [facility] 4389 Start Date: 03/19/22 Status: Ordered levETIRAcetam 1000 mg oral tablet 180 EA, TAKE 1 TABLET BY MOUTH EVERY 12 HOURS, 0 Refill(s) Start Date: 02/15/22 Status: Ordered lisinopril 40 mg oral tablet 1 tab, Oral, Daily, # 90 tab, 1 Refill(s), Pharmacy: [facility] 4389 Start Date: 11/26/21 Status: Ordered LORazepam 1 mg oral tablet 1 mg = 1 tab, Oral, every 6 hr, PRN as needed for anxiety, # 15 tab, 1 Refill(s), [facility] Start Date: 12/18/21 Stop [...] Member Role: Primary Care Physician Address: Address: [address] [place] [phone] [place] Care Team Related Persons Name: GASPER LEDESMA Name: LEI BLACK
--- OUTSIDE RECORDS SUMMARY | 2024-01-13 19:03 | XMS_ITS | Continuity of Care Document ---
Author Organization [facility] Ambulatory Clinics Address [address] [place] [address] Care Team Providers Care Application Development Liaison Name Role Phone Medardo Sargent DO Primary Care Physician Encounter [facility] NBR [id number] Date(s): 05/15/22 - 05/15/22 [facility] Ambulatory Clinics [address] [place], [place] [address] Encounter Diagnosis Allergic rhinitis(Discharge Diagnosis) - 05/15/22 Discharge Disposition: Home or Self Care Attending Physician: Dion Maravilla DO Allergies, Adverse Reactions, Alerts Substance Reaction Severity Status acetaminophen-oxycodone palpitations Severe Acti ve Emgality 1 Headache Moderate Active 1300 MG dose, worsening headaches. Assessment and Plan Future Appointments Medications !-Augmentin 875 mg-125 mg oral tablet 1 tab, Oral, every 12 hr, # 20 tab, 0 Refill(s), Pharmacy: [facility] 4389 Start Date: 02/20/22 Stop Date: 03/02/22 Status: Ordered busPIRone 5 mg oral tablet 10 mg = 2 tab, Oral, TID, # 540 tab, 1 Refill(s), [facility]: [facility] Start Date: 12/05/21 Stop Date: 06/03/22 Status: Ordered citalopram 40 mg oral tablet 90 EA, TAKE 1 TABLET BY MOUTH ONCE DAILY, 0 Refill(s) Start Date: 02/15/22 Status: Ordered fluticasone 50 mcg/inh nasal spray 2 sprays, Nasal, Daily, # 16 g, 5 Refill(s), Pharmacy: [facility] 4389 Start Date: 03/19/22 Status: Ordered levETIRAcetam 1000 mg oral tablet 180 EA, TAKE 1 TABLET BY MOUTH EVERY 12 HOURS, 0 Refill(s) Start Date: 02/15/22 Status: Ordered lisinopril 40 mg oral tablet 1 tab, Oral, Daily, # 90 tab, 1 Refill(s), Pharmacy: [facility] 4389 Start Date: 11/26/21 Status: Ordered LORazepam 1 mg oral tablet 1 mg = 1 tab, Oral, every 6 hr, PRN as needed for anxiety, # 15 tab, 1 Refill(s), [facility] Start Date: 12/18/21 Stop Date: 12/26/21 [...] daily, # 180 tab, 3 Refill(s), Pharmacy: [facility] 4[facility] Start Date: 05/07/22 [...] Member Role: Primary Care Physician Address: Address: [address] [place] [phone] [place] Care Team Related Persons Name: GASPER LEDESMA Name: LEI BLACK
[2024-01-13 19:08] LABS: Troponin I 5 ng/L (<or=51)
--- NOTE | 2024-01-13 19:31 | NUR.NOTE ---
ER discharge instructions found in treatment room, mailed to patient.Nursing Note:
== END 2024-01-13 19:20 | disposition left against medical advice (07) ==
LOC: ER 18:52
PROVIDERS: Emergency Provider Physician Assistant; PCP Family Medicine
DX: R56.9 Unspecified convulsions (principal); R51.9 Headache, unspecified; D18.02 Hemangioma of intracranial structures; J32.1 Chronic frontal sinusitis; I10 Essential (primary) hypertension; Z53.29 Procedure and treatment not carried out because of patient's decision for other reasons; Z87.891 Personal history of nicotine dependence
CPT/HCPCS: 36415; 70496; 70498; 80053; 93005; 96374; 96375; 99285; 70450; 83735; 84443; 84484; 85025; 85610; 85730; 93010; J1100; J1885; J3490